=== PATIENT | female | born 1965 | race Caucasian/White ===

== ENCOUNTER → 2019-11-05 07:45 | Outpatient (CLI) | payer MEDICARE, SELFPAY ==
--- NOTE | 2019-11-05 07:45 | MR_ITS ---
PROCEDURE: MR HEAD/BRAIN WO CON CLINICAL INDICATION: Migraine headache Headache with blurred vision COMPARISON: HDWO CT HEAD W/O CONTRAST from 02/09/2015 TECHNIQUE: Routine multiplanar multi echo sequences are performed without gadolinium enhancement. FINDINGS: No midline shift, mass effect, intracranial hemorrhage, hydrocephalus, or acute infarction is evident. There are some mild encephalomalacia changes in the right parietal temporal junction posteriorly and laterally. There are a few nonspecific periventricular T2 white matter hyperintensities. The cerebellopontine angle, cerebellum, and brainstem are unremarkable. The pituitary, optic chiasm, corpus callosum, and craniocervical junction have an unremarkable appearance. No mastoid effusion or sinus air-fluid level is evident. IMPRESSION: No acute intracranial findings. Minimal encephalomalacia change of the right temporal parietal junction posteriorly with minimal scattered periventricular T2 white matter hyperintensities which could be due to ischemic gliotic foci Dictated by: Ji Meadows MD 11/06/2019 09:55 Electronically signed by Ji Meadows MD in [place] 11/06/2019 09:55
== END ==
PROVIDERS: PCP Family Medicine; Visit Provider Specialist
DX: G43.919 Migraine, unspecified, intractable, without status migrainosus (principal)
CPT/HCPCS: 70551

== ENCOUNTER → 2019-11-12 12:55 | Outpatient (CLI) | payer MEDICARE, SELFPAY | PROVIDERS: PCP Family Medicine; Visit Provider Specialist | DX: G47.33 Obstructive sleep apnea (adult) (pediatric) (principal) | CPT/HCPCS: G0399 ==

== ENCOUNTER → 2020-03-11 11:46 | Outpatient (CLI) | payer MEDICARE, SELFPAY ==
[2020-03-11 14:19] LABS: Vitamin B12 925 pg/mL (239-931)
== END ==
PROVIDERS: Visit Provider Specialist
DX: Z86.39 Personal history of other endocrine, nutritional and metabolic disease (principal)
CPT/HCPCS: 36415; 82607

== ENCOUNTER 2020-10-03 07:40 | Emergency (ER) | payer MEDICARE, SELFPAY ==
[2020-10-03] VITALS (10 sets, daily range): BP systolic 101–147; BP diastolic 52–87; PULSE 58–78; RESP 16–17; TEMP 36.5–36.8; O2SAT 93–99; BMI 51.0
--- NOTE | 2020-10-03 07:58 | XR_ITS ---
PROCEDURE INFORMATION: Exam: XR Chest Exam date and time: 10/03/2020 7:58 AM Age: 54 years old Clinical indication: Patient HX: Cough, smoker, copd, asthma TECHNIQUE: Imaging protocol: XR of the chest. Views: 2 views. COMPARISON: CR [id number] [id number] 04/17/2015 2:29 AM FINDINGS: Lungs: No consolidation. Pleural spaces: No pleural effusion. No pneumothorax. Heart/Mediastinum: No cardiomegaly. Bones/joints: No acute abnormality. IMPRESSION: No acute cardiopulmonary disease.
[2020-10-03 08:02] LABS: Microscopic, Urine URINE MICROSCOPIC (MICROSCOPIC)
[2020-10-03 08:04] LABS: Basophils # 0.1 K/mm3 (0-0.2); Basophils % 0.8 % (0.1-2.0); Eosinophils # 0.2 K/mm3 (0.0-0.4); Eosinophils % 1.9 % (0.1-12.0); Hematocrit 39.6 % (37.0-47.0); Hemoglobin 13.2 g/dL (12.2-16.2); Lymphocytes # 2.7 K/mm3 (0.7-4.5); Mean Corpuscular HGB Conc 33.4 g/dL (31.8-35.4); Mean Corpuscular Hemoglobin 29.9 pg (27.0-31.2); Mean Corpuscular Volume 89.5 fl (81-99); Mean Platelet Volume 7.9 fl (7.4-10.4); Monocytes # 0.5 K/mm3 (0.1-1.0); Monocytes % 5.2 % (1.7-9.3); Neutrophils # 6.6 K/mm3 (1.8-7.8); Neutrophils % 65.1 % (37.0-80.0); Platelet Count 331 K/mm3 (142-424); Red Blood Count 4.42 M/mm3 (4.20-5.40); Red Cell Distribution Width 13.3 % (11.5-17.5); White Blood Count 10.2 K/mm3 (4.8-10.8)
[2020-10-03 08:04] LABS: Appearance,Urine SL CLOUDY (Clear); Bilirubin,Urine Negative (Negative); Blood, Urine 3+ (Negative); Color,Urine YELLOW (Yellow); Glucose,Urine (UA) Negative (Negative); Ketones,Urine Negative (Negative); Leukocyte Esterase,Urine TRACE (Negative); Nitrate,Urine Negative (Negative); Protein,Urine Negative (Negative); Urobilinogen,Urine 0.2 EU/dl (0.2)
[2020-10-03 08:11] LABS: Alanine Aminotransferase 27 U/L (12-78); Albumin Level 4.1 g/dl (3.5-5.0); Albumin/Globulin Ratio 1.4 (1.1-1.8); Alkaline Phosphatase 71 U/L (38-126); Anion Gap 6.4 mEq/L (5-15); Aspartate Amino Transferase 29 U/L (14-36); Bilirubin,Total 0.8 mg/dl (0.2-1.3); Blood Urea Nitrogen 19 mg/dl (7-17); Calcium 8.9 mg/dl (8.4-10.2); Carbon Dioxide 31 mmol/L (22.0-30.0); Chloride 105 mmol/L (98-107); Creatinine Clearance Estimated 60 mL/min (50-200); Estimated Glomerular Filt Rate 74 ml/min (>60); GFR (African American) 90 ML/MIN (>60); Globulin 2.9 g/dL (1.3-3.2); Glucose 100 mg/dl (74-100); Potassium 4.4 mmoL/L (3.5-5.1); Sodium 138 mmol/L (136-145)
[2020-10-03 08:15] LABS: RBC,Urine 50-100 #/hpf (0-3); Squamous Epithelial Cell,Urine Occasional #/hpf (0-5)
--- NOTE | 2020-10-03 08:40 | CT_ITS ---
PROCEDURE INFORMATION: Exam: CT Abdomen And Pelvis With Contrast Exam date and time: 10/03/2020 8:40 AM Age: 54 years old Clinical indication: Abdominal pain; Prior surgery; Patient HX: Left flank pain TECHNIQUE: Imaging protocol: Computed tomography of the abdomen and pelvis with contrast. Radiation optimization: All CT scans at this facility use at least one of these dose optimization techniques: automated exposure control; mA and/or kV adjustment per patient size (includes targeted exams where dose is matched to clinical indication); or iterative reconstruction. Contrast material: ISOVUE; Contrast volume: 75 ml; Contrast route: IV; COMPARISON: No relevant prior studies available. FINDINGS: Lungs: Mild reticular opacities in the lung bases, likely atelectasis. Heart: Trace pericardial effusion. Liver: No mass. Gallbladder and bile ducts: Cholecystectomy changes. No biliary ductal dilation. Pancreas: No ductal dilation. Spleen: Multiple splenic parenchymal calcifications, likely from old granulomatous disease. Adrenal glands: No mass. Kidneys and ureters: There is an 8 mm calculus in the left renal pelvis with mild hydronephrosis and mild inflammation along the renal pelvis and ureter. Simple exophytic 1 cm right renal cyst. Stomach and bowel: Surgical change along the stomach from bypass, with an uncomplicated appearance. Colonic diverticulosis without evidence of diverticulitis. Appendix: No evidence of appendicitis. Intraperitoneal space: Old midline laparotomy changes with metallic fascial stables. Small fat containing periumbilical hernia. Vasculature: No abdominal aortic aneurysm. Lymph nodes: No enlarged lymph nodes. Urinary bladder: Unremarkable as visualized. Reproductive: Hysterectomy. No adnexal mass. Bones/joints: No acute fracture. Soft tissues: See Intraperitoneal space finding. IMPRESSION: 1. There is an 8 mm calculus in the left renal pelvis with mild hydronephrosis and mild inflammation along the renal pelvis and ureter. 2. Trace pericardial effusion. COMMENTS: Consistent with the [employer]'s Incidental Findings Committee white paper (J Am Cristiana Radiol 2018): Any incidental renal lesion less than 1 cm or classified as too small to characterize, or any incidental cystic renal lesion characterized as simple-appearing, is likely benign. No follow-up imaging is recommended for these lesions per consensus recommendations based on imaging criteria.
--- NOTE | 2020-10-03 08:41 | HMH.EDGENADL ---
ED Disposition Clinical Impression: Kidney stone, Hydronephrosis due to obstruction of ureter, Uncontrolled pain DM2 (diabetes mellitus, type 2) Qualifiers: Diabetes mellitus chcf insulin use: without chcf use Diabetes mellitus complication status: with other specified complication Qualified Code(s): E11.69 - Type 2 diabetes mellitus with other specified complication Disposition: Xfer Critical Access Hosp Condition on Discharge: Fair Referrals: Salima Gonzáles [Primary Care Provider] - Time of Disposition: 10:36 - Critical Care Critical Care Time: No Attestation: On 10/03/20, the high probability of a clinically significant, sudden or life threatening deterioration of the following system(s) required my full and direct attention, intervention and personal management. The time I documented below is in addition to time spent performing reported procedures but includes the following listed in this critical care notation. Medical Decision Making - Medical Records Medical records reviewed: Yes: I reviewed the patient's medical records. - Aurelio Inquiry Pt receiving controlled substance: No Vital Signs: 10/03/20 07:42 10/03/20 08:00 10/03/20 08:22 Temperature 97.7 F Temperature Source Oral Pulse Rate 62 58 L Pulse Rate [Right] 78 Respiratory Rate 16 Blood Pressure 114/75 122/70 Blood Pressure [Right Arm] 129/52 L Blood Pressure Mean 87 Blood Pressure Mean [Right Arm] 77 Blood Pressure Source Blood Pressure Position 02 Sat by Pulse Oximetry 98 97 96 Oxygen Delivery Method Room Air 10/03/20 08:27 10/03/20 08:30 Temperature Temperature Source Pulse Rate 62 60 Pulse Rate [Right] Respiratory Rate Blood Pressure 122/70 119/76 Blood Pressure [Right Arm] Blood Pressure Mean 95 Blood Pressure Mean [Right Arm] Blood Pressure Source Automatic Cuff Blood Pressure Position Sitting 02 Sat by Pulse Oximetry 95 96 Oxygen Delivery Method Room Air - Lab Data Lab Results 10/03/20 07:50: Urine Color Yellow, Urine Appearance Sl cloudy, Urine pH 6.0, Ur Specific Irene 1.020, Urine Protein Negative, Urine Glucose (UA) Negative, Urine Ketones Negative, Urine Blood 3+, Urine Nitrate Negative, Urine Bilirubin Negative, Urine Urobilinogen 0.2, Ur Leukocyte Esterase Trace, Urine RBC 50-100, Urine WBC 3-5, Ur Squamous Epith Cells Occasional, Urine Bacteria None 10/03/20 07:56: WBC 10.2, RBC 4.42, Hgb 13.2, Hct 39.6, MCV 89.5, MCH 29.9, MCHC 33.4, RDW 13.3, Plt Count 331, MPV 7.9, Neut % (Auto) 65.1, Lymph % (Auto) 27.0, Jerome % (Auto) 5.2, Eos % (Auto) 1.9, Baso % (Auto) 0.8, Neut # (Auto) 6.6, Lymph # (Auto) 2.7, Jerome # (Auto) 0.5, Eos # (Auto) 0.2, Baso # (Auto) 0.1 10/03/20 07:56: Sodium 138, Potassium 4.4, Chloride 105, Carbon Dioxide 31 H, Anion Gap 6.4, BUN 19 H, Creatinine 0.80, Estimated Creat Clear 60, Estimated GFR 74, Est GFR ( Amer) 90, Glucose 100, Calcium 8.9, Total Bilirubin 0.8, AST 29, ALT 27, Alkaline Phosphatase 71, Total Protein 7.0, Albumin 4.1, Globulin 2.9, Albumin/Globulin Ratio 1.4 Result diagrams: 10/03/20 07:56 10/03/20 07:56 Orders (Tests/Meds): ED MEDICATIONS Generic Name Dose Route Start Last Admin Trade Name Freq PRN Reason Stop Dose Admin Sodium Chloride 1,000 mls @ 999 mls/hr 10/03/20 10:15 10/03/20 10:18 Sod Chlor 0.9% 1000ml Bag IV 10/03/20 11:15 999 mls/hr .Q1H1M SORAYA Administration Discontinued Medications Generic Name Dose Route Start Last Admin Trade Name Freq PRN Reason Stop Dose Admin Hydromorphone HCl 0.5 mg 10/03/20 10:08 10/03/20 10:17 Hydromorphone 2mg/Ml Syringe IV 10/03/20 10:09 0.5 mg ONCE ONE Administration Iopamidol 75 ml 10/03/20 09:18 10/03/20 09:19 Iopamidol-370 (76%);100ml Bottle IV 10/03/20 09:19 75 ml ONCE ONE Administration Ketorolac Tromethamine 15 mg 10/03/20 08:42 10/03/20 08:44 Ketorolac 30mg/Ml Vial IV 10/03/20 08:43 15 mg ONCE ONE Administration
--- NOTE | 2020-10-03 10:11 | PC.NURSE ---
[facility] does not have any urologist rehabilitation services coordinator
--- NOTE | 2020-10-03 10:13 | PC.NURSE ---
Contacting [facility]
--- NOTE | 2020-10-03 10:14 | PC.NURSE ---
urology at [facility] to return call.
--- NOTE | 2020-10-03 10:43 | PC.NURSE ---
Called Radiology for a disk on patient.
--- NOTE | 2020-10-03 13:35 | PC.NURSE ---
called and spoke with [facility]. they still do not have a bed at this time but they will call back around 1530 with an update unless they get a bed before then
--- NOTE | 2020-10-03 15:27 | PC.NURSE ---
[facility] FROM [place] ADMITTING STATED PATIENT HAD A BED ASSIGNED TO THE UNIT 3B
== END 2020-10-03 16:53 | disposition critical access hospital (66) ==
PROVIDERS: Emergency Provider Emergency Medicine; PCP Family Medicine
DX: N20.0 Calculus of kidney (principal); N13.1 Hydronephrosis with ureteral stricture, not elsewhere classified; E11.69 Type 2 diabetes mellitus with other specified complication; F41.8 Other specified anxiety disorders; Z87.442 Personal history of urinary calculi; Z88.5 Allergy status to narcotic agent; Z79.899 Other long term (current) drug therapy; Z11.52 Encounter for screening for COVID-19
CPT/HCPCS: 71046; 74177; 80053; 81001; 85025; 96365; 99283; J2405; Q9967; U0003

== ENCOUNTER 2020-10-08 12:29 | Emergency (ER) | payer MEDICARE, SELFPAY ==
[2020-10-08 12:46] VITALS: BP 180/110; PULSE 97; RESP 16; TEMP 37.1; O2SAT 97; BMI 51.0
[2020-10-08 13:22] LABS: Microscopic, Urine URINE MICROSCOPIC (MICROSCOPIC)
--- NOTE | 2020-10-08 13:23 | HMH.EDGENADL ---
ED Disposition Clinical Impression: Ureteral calculi, Nephrolithiasis Disposition: Home, Self-Care Condition on Discharge: Fair Instructions: DI for Kidney Stones Additional Instructions: Flomax as prescribed. Percocet as needed for pain. Zofran as needed for nausea. Cipro as prescribed. Call Dr. Andrade at 9 AM Sunday morning to make arrangements to be seen on Sunday in their office. Additional instructions for KIDNEY STONE (URETERAL CALCULUS): Drink plenty of fluids. Strain your urine and save any stones you catch. Return immediately if you develop a fever or have uncontrollable vomiting or uncontrollable pain. Prescriptions: Oxycodone HCl/Acetaminophen [Percocet 10-325 mg Tablet] 1 tab PO Q4HP PRN #20 tab PRN Reason: Moderate To Severe Pain Transmission Status: Sent to [facility] Ciprofloxacin HCl [Cipro 500mg Tab] 500 mg PO BID #14 tab Transmission Status: Pending to [facility] Tamsulosin HCl [Flomax 0.4mg capsule] 0.4 mg PO HS #10 cap.er.24h Transmission Status: Pending to [facility] Ondansetron [Zofran 4mg ODT] 4 mg PO TIDP PRN #10 tab.rapdis PRN Reason: Nausea And Vomiting Transmission Status: Pending to [facility] Referrals: Dragan Andrade MD [Staff Physician] - - Critical Care Critical Care Time: No Attestation: On 10/08/20, the high probability of a clinically significant, sudden or life threatening deterioration of the following system(s) required my full and direct attention, intervention and personal management. The time I documented below is in addition to time spent performing reported procedures but includes the following listed in this critical care notation. Medical Decision Making - Aurelio Inquiry Pt receiving controlled substance: Yes Aurelio was queried for this patient: Yes Risks and benefits of using a controlled substance: were not discussed with pt by me Vital Signs: 10/08/20 12:46 10/08/20 13:30 10/08/20 15:15 Temperature 98.8 F Temperature Source Oral Pulse Rate 75 74 Pulse Rate [Right] 97 H Respiratory Rate 16 18 Blood Pressure 140/83 132/72 Blood Pressure [Right Arm] 180/110 H Blood Pressure Mean 103 Blood Pressure Mean [Right Arm] 133 Blood Pressure Source [Right Arm] Automatic Cuff Blood Pressure Position [Right Arm] Sitting 02 Sat by Pulse Oximetry 97 96 92 L Oxygen Delivery Method Room Air - Lab Data Lab Results 10/08/20 12:55: WBC 15.4 H, RBC 4.34, Hgb 13.4, Hct 39.9, MCV 92.0, MCH 30.8, MCHC 33.5, RDW 14.1, Plt Count 316, MPV 8.0, Neut % (Auto) 84.4 H, Lymph % (Auto) 10.0, Early % (Auto) 4.7, Eos % (Auto) 0.5, Baso % (Auto) 0.4, Neut # (Auto) 13.0 H, Lymph # (Auto) 1.5, Early # (Auto) 0.7, Eos # (Auto) 0.1, Baso # (Auto) 0.1, Total Counted 100, Neutrophils % (Manual) 83 H, Lymphocytes % (Manual) 15, Monocytes % (Manual) 2, Platelet Estimate Normal, RBC Morphology Normal 10/08/20 12:55: Sodium 141, Potassium 4.1, Chloride 102, Carbon Dioxide 27, Anion Gap 16.1 H, BUN 20 H, Creatinine 1.30 H, Estimated Creat Clear 37, Estimated GFR 43 L, Est GFR ( Amer) 51 L, Glucose 108 H, Calcium 9.2, Total Bilirubin 0.8, AST 46 H, ALT 48, Alkaline Phosphatase 94, Total Protein 7.9, Albumin 4.6, Globulin 3.3 H, Albumin/Globulin Ratio 1.4 10/08/20 13:00: Urine Color Yellow, Urine Appearance Clear, Urine pH 6.5, Ur Specific [place] 1.020, Urine Protein Negative, Urine Glucose (UA) Negative, Urine Ketones Negative, Urine Blood 1+, Urine Nitrate Negative, Urine Bilirubin Negative, Urine Urobilinogen 0.2, Ur Leukocyte Esterase Negative, Urine RBC None, Urine WBC 3-5, Ur Squamous Epith Cells Occasional, Urine Bacteria None Result diagrams: 10/08/20 12:55 10/08/20 12:55 Orders (Tests/Meds): ED MEDICATIONS Discontinued Medications Generic Name Dose Route Start Last Admin Trade Name Freq PRN Reason Stop Dose Admin Hydromorphone HCl 1 mg 10/08/20 13:45 10/08/20 13:53 Hydromorphone 2m
[2020-10-08 13:25] LABS: Chloride 102 mmol/L (98-107); Potassium 4.1 mmoL/L (3.5-5.1); Sodium 141 mmol/L (136-145)
[2020-10-08 13:26] LABS: Appearance,Urine CLEAR (Clear); Bilirubin,Urine Negative (Negative); Blood, Urine 1+ (Negative); Color,Urine YELLOW (Yellow); Glucose,Urine (UA) Negative (Negative); Ketones,Urine Negative (Negative); Leukocyte Esterase,Urine Negative (Negative); Nitrate,Urine Negative (Negative); PH,Urine 6.5 (5.0-8.5); Protein,Urine Negative (Negative); Urobilinogen,Urine 0.2 EU/dl (0.2)
[2020-10-08 13:27] LABS: Blood Urea Nitrogen 20 mg/dl (7-17); Creatinine Clearance Estimated 37 mL/min (50-200); Estimated Glomerular Filt Rate 43 ml/min (>60); GFR (African American) 51 ML/MIN (>60)
[2020-10-08 13:28] LABS: Alanine Aminotransferase 48 U/L (12-78); Albumin Level 4.6 g/dl (3.5-5.0); Albumin/Globulin Ratio 1.4 (1.1-1.8); Alkaline Phosphatase 94 U/L (38-126); Anion Gap 16.1 mEq/L (5-15); Aspartate Amino Transferase 46 U/L (14-36); Bilirubin,Total 0.8 mg/dl (0.2-1.3); Calcium 9.2 mg/dl (8.4-10.2); Carbon Dioxide 27 mmol/L (22.0-30.0); Globulin 3.3 g/dL (1.3-3.2); Glucose 108 mg/dl (74-100); Total Protein,Serum 7.9 g/dl (6.3-8.2)
[2020-10-08 13:30] VITALS: BP 140/83; PULSE 75; RESP 18; O2SAT 96
[2020-10-08 13:36] LABS: Basophils # 0.1 K/mm3 (0-0.2); Basophils % 0.4 % (0.1-2.0); Eosinophils # 0.1 K/mm3 (0.0-0.4); Eosinophils % 0.5 % (0.1-12.0); Hematocrit 39.9 % (37.0-47.0); Hemoglobin 13.4 g/dL (12.2-16.2); Lymphocytes # 1.5 K/mm3 (0.7-4.5); Mean Corpuscular HGB Conc 33.5 g/dL (31.8-35.4); Mean Corpuscular Hemoglobin 30.8 pg (27.0-31.2); Monocytes # 0.7 K/mm3 (0.1-1.0); Monocytes % 4.7 % (1.7-9.3); Neutrophils % 84.4 % (37.0-80.0); Platelet Count 316 K/mm3 (142-424); Red Blood Count 4.34 M/mm3 (4.20-5.40); Red Cell Distribution Width 14.1 % (11.5-17.5); White Blood Count 15.4 K/mm3 (4.8-10.8)
[2020-10-08 13:36] LABS: Squamous Epithelial Cell,Urine Occasional #/hpf (0-5)
[2020-10-08 13:39] LABS: MANUAL DIFFERENTIAL MANUAL DIFFERENTIAL (MANUAL DIFF)
--- NOTE | 2020-10-08 13:45 | CT_ITS ---
PROCEDURE: CT ABDOMEN PELVIS WO CON CLINICAL INDICATION: ureteral calculus Lower abdominal and pelvic pain COMPARISON: CT CT ABDOMEN PELVIS W CON from 10/03/2020 TECHNIQUE: Axial images obtained with sagittal and coronal reformats. All CT scans at the facility use one or more dose reduction, viz: automated exposure control, ma/kV adjustment per patient size (including targeted exams where dose is matched to indication, i.e. head), or iterative reconstruction technique. FINDINGS: LOWER THORAX: Slight increased markings both lung bases posteriorly suggesting minimal atelectasis or infiltrate slightly worse ABDOMEN & PELVIS: Prior cholecystectomy. The liver, spleen, adrenal glands, and pancreas have an unremarkable unenhanced appearance. Small exophytic nodule projects off the anterior aspect of the right kidney isodense in nature and may represent a small renal cyst. There is mild left hydronephrosis and hydroureter secondary to a column of stones within the distal left ureter. Previously described left ureteropelvic junction stone is no longer apparent. There is a 12 by 8 mm stone in the left renal pelvis within the lower pole of the left kidney. There is mild stranding of the left perinephric and periureteral fat. There is mild stranding of the fat in the left internal iliac region within the pelvis. This has developed since the previous exam There has been a prior gastric bypass. No intestinal obstruction or free air is evident. No evidence of appendicitis. There is colonic diverticulosis. No evidence of diverticulitis. There are postsurgical changes of the anterior abdominal wall with numerous clips. No acute bony findings. IMPRESSION: The left ureteropelvic junction stone is no longer apparent. The left hydronephrosis and ureteral dilatation is worse. There are now numerous small stones in the distal left ureter. Has patient had recent lithotripsy? There is mild stranding of the left perinephric renal fat and periureteral fat especially in the region of the pelvis. There is left nephrolithiasis. Dictated by: Ji Meadows MD 10/08/2020 14:46 Ji Meadows MD in [place] 10/08/2020 14:46
[2020-10-08 13:53] LABS: Lymphocytes % 15 % (10-50); Monocytes % 2 % (2-9); Neutrophils % 83 % (42-76); Platelet Estimate Normal; RBC Morphology Normal; Total Cells Counted 100
--- NOTE | 2020-10-08 15:03 | PC.NURSE ---
DR ARSEN CROOKS
[2020-10-08 15:15] VITALS: BP 132/72; PULSE 74; O2SAT 92
[2020-10-08 16:52] VITALS: BP 123/69; PULSE 88; RESP 18; TEMP 36.6; O2SAT 97
== END 2020-10-08 16:55 | disposition home or self-care (01) ==
LOC: UTC 12:41 → ER 12:45
PROVIDERS: Emergency Provider Emergency Medicine; PCP Family Medicine
DX: N20.1 Calculus of ureter (principal); N13.30 Unspecified hydronephrosis
CPT/HCPCS: 74176; 80053; 81001; 85007; 85025; 96365; 96375; 96376; 99284; J2405

== ENCOUNTER 2020-10-09 11:30 | Inpatient (IN) | payer MEDICARE, SELFPAY ==
[2020-10-09] VITALS (25 sets, daily range): BP systolic 111–141; BP diastolic 58–75; PULSE 72–94; RESP 16–20; TEMP 36.7–43; O2SAT 90–97; BMI 51.0; BMI 52.2
--- NOTE | 2020-10-09 | XR_ITS ---
PROCEDURE: XR ABDOMEN MIN 2V CLINICAL INDICATION: IN OR STONE REMOVAL COMPARISON: No exams were available for comparison FINDINGS: Fluoroscopy time: 8 seconds. One image is submitted but is nondiagnostic. IMPRESSION: Fluoroscopy utilized for stone removal. Please correlate with fluoroscopic findings. Dictated by: Ji Meadows MD 10/13/2020 07:46 Ji Meadows MD in [facility] 10/13/2020 07:46
[2020-10-09 11:52] LABS: POC Glucose,Bedside 165 (70-110)
--- NOTE | 2020-10-09 12:14 | HMH.EDGENADL ---
ED Disposition Clinical Impression: Hydronephrosis, Nephrolithiasis Disposition: Admitted As Inpatient Condition on Discharge: Good - Critical Care Critical Care Time: No Attestation: On 10/09/20, the high probability of a clinically significant, sudden or life threatening deterioration of the following system(s) required my full and direct attention, intervention and personal management. The time I documented below is in addition to time spent performing reported procedures but includes the following listed in this critical care notation. Medical Decision Making - Medical Records MR Comment: Left-sided hydronephrosis and pyelonephritis. He was started on broad-spectrum antibiotic. The urologist Dr. Bella was called and he accepted the patient and he will do procedure on her. She has to be kept n.p.o. Dr. Padilla the hospitalist was called and he accepted the patient. Patient will be on IV fluid and n.p.o. - Aurelio Inquiry Pt receiving controlled substance: No Aurelio was queried for this patient: No Vital Signs: 10/09/20 11:31 10/09/20 12:00 10/09/20 12:31 Temperature 100.7 F H Temperature Source Oral Pulse Rate 92 H 94 H Pulse Rate [Left] 91 H Respiratory Rate 18 Blood Pressure 130/62 127/59 L Blood Pressure [Right Arm] 126/58 L Blood Pressure Mean 80 75 Blood Pressure Mean [Right Arm] 80 Blood Pressure Source [Right Arm] Automatic Cuff Blood Pressure Position [Right Arm] Sitting 02 Sat by Pulse Oximetry 93 L 97 92 L Oxygen Delivery Method Room Air 10/09/20 13:01 10/09/20 13:30 Temperature Temperature Source Pulse Rate 94 H 87 Pulse Rate [Left] Respiratory Rate 20 Blood Pressure 116/67 129/59 L Blood Pressure [Right Arm] Blood Pressure Mean 75 82 Blood Pressure Mean [Right Arm] Blood Pressure Source [Right Arm] Blood Pressure Position [Right Arm] 02 Sat by Pulse Oximetry 93 L 95 Oxygen Delivery Method - Lab Data Lab Results 10/09/20 11:45: POC Glucose 165 H 10/09/20 11:45: WBC 19.5 H D, RBC 3.81 L, Hgb 11.8 L D, Hct 34.1 L, MCV 89.5, MCH 31.0, MCHC 34.6, RDW 13.8, Plt Count 255, MPV 8.3, Neut % (Auto) 90.7 H, Lymph % (Auto) 4.0 L, [place] % (Auto) 4.6, Eos % (Auto) 0.5, Baso % (Auto) 0.2, Neut # (Auto) 17.7 H, Lymph # (Auto) 0.8, [place] # (Auto) 0.9, Eos # (Auto) 0.1, Baso # (Auto) 0.0, Total Counted 100, Neutrophils % (Manual) 83 H, Band Neutrophils % 2.0, Lymphocytes % (Manual) 9 L, Monocytes % (Manual) 6, Platelet Estimate Normal, RBC Morphology Normal 10/09/20 11:45: Sodium 134 L, Potassium 4.1, Chloride 102, Carbon Dioxide 23, Anion Gap 13.1, BUN 18 H, Creatinine 1.60 H D, Estimated Creat Clear 30, Estimated GFR 33 L, Est GFR ( Amer) 40 L D, Glucose 150 H D, Calcium 8.7, Total Bilirubin 1.8 H, AST 74 H D, ALT 95 H D, Alkaline Phosphatase 133 H, Total Protein 7.2, Albumin 4.1 D, Globulin 3.1, Albumin/Globulin Ratio 1.3 10/09/20 11:45: Lactate 1.0 10/09/20 14:00: Urine Color Yellow, Urine Appearance Clear, Urine pH 6.0, Ur Specific Dewitt >= 1.030, Urine Protein 1+, Urine Glucose (UA) Negative, Urine Ketones 1+, Urine Blood 1+, Urine Nitrate Negative, Urine Bilirubin Negative, Urine Urobilinogen 1.0, Ur Leukocyte Esterase Negative, Urine RBC 5-10, Urine WBC None, Ur Squamous Epith Cells 3-5, Amorphous Sediment 1+, Urine Bacteria None Result diagrams: 10/09/20 11:45 10/09/20 11:45 Orders (Tests/Meds): ED MEDICATIONS Generic Name Dose Route Start Last Admin Trade Name Freq PRN Reason Stop Dose Admin Hydromorphone HCl 0.5 mg 10/09/20 15:51 Hydromorphone 2mg/Ml Syringe IV 10/09/20 17:21 Q5MINP PRN Moderate to Severe Pain Hydromorphone HCl 2 mg 10/09/20 15:51 Hydromorphone 2mg/Ml Syringe IV 11/08/20 15:50 Q4HP PRN Severe Pain Sodium Chloride 1,000 mls @ 100 mls/hr 10/09/20 15:51 10/09/20 17:24 Sod Chlor 0.9% 1000ml Bag IV 11/08/20 15:50 100 mls/hr .Q10H SORAYA Administration Meperidine HCl 25 mg 10/09
[2020-10-09 12:18] LABS: Basophils % 0.2 % (0.1-2.0); Eosinophils # 0.1 K/mm3 (0.0-0.4); Mean Platelet Volume 8.3 fl (7.4-10.4); Monocytes # 0.9 K/mm3 (0.1-1.0)
[2020-10-09 12:22] LABS: Chloride 102 mmol/L (98-107)
[2020-10-09 12:23] LABS: Potassium 4.1 mmoL/L (3.5-5.1); Sodium 134 mmol/L (136-145)
[2020-10-09 12:25] LABS: Alanine Aminotransferase 95 U/L (12-78); Aspartate Amino Transferase 74 U/L (14-36); Blood Urea Nitrogen 18 mg/dl (7-17); Creatinine Clearance Estimated 30 mL/min (50-200); Estimated Glomerular Filt Rate 33 ml/min (>60); GFR (African American) 40 ML/MIN (>60)
[2020-10-09 12:26] LABS: Albumin Level 4.1 g/dl (3.5-5.0); Albumin/Globulin Ratio 1.3 (1.1-1.8); Alkaline Phosphatase 133 U/L (38-126); Anion Gap 13.1 mEq/L (5-15); Bilirubin,Total 1.8 mg/dl (0.2-1.3); Calcium 8.7 mg/dl (8.4-10.2); Carbon Dioxide 23 mmol/L (22.0-30.0); Globulin 3.1 g/dL (1.3-3.2); Glucose 150 mg/dl (74-100); Total Protein,Serum 7.2 g/dl (6.3-8.2)
[2020-10-09 12:27] LABS: Eosinophils % 0.5 % (0.1-12.0); Hematocrit 34.1 % (37.0-47.0); Lymphocytes # 0.8 K/mm3 (0.7-4.5); Mean Corpuscular HGB Conc 34.6 g/dL (31.8-35.4); Mean Corpuscular Volume 89.5 fl (81-99); Monocytes % 4.6 % (1.7-9.3); Neutrophils # 17.7 K/mm3 (1.8-7.8); Neutrophils % 90.7 % (37.0-80.0); Platelet Count 255 K/mm3 (142-424); Red Blood Count 3.81 M/mm3 (4.20-5.40); Red Cell Distribution Width 13.8 % (11.5-17.5); White Blood Count 19.5 K/mm3 (4.8-10.8)
[2020-10-09 12:29] LABS: Hemoglobin 11.8 g/dL (12.2-16.2)
[2020-10-09 12:30] LABS: MANUAL DIFFERENTIAL MANUAL DIFFERENTIAL (MANUAL DIFF)
[2020-10-09 12:41] LABS: Lymphocytes % 9 % (10-50); Monocytes % 6 % (2-9); Neutrophils % 83 % (42-76); Platelet Estimate Normal; RBC Morphology Normal; Total Cells Counted 100
--- NOTE | 2020-10-09 12:50 | PC.NURSE ---
paged dr jacobs
--- NOTE | 2020-10-09 12:56 | PC.NURSE ---
Dr Lupe trujillo returned call, Dr Messi trujillo MD speaking with him now
--- NOTE | 2020-10-09 13:02 | PC.NURSE ---
Dr Swenson not railroad crossing protection maintainer for service, Dr Padilla paged and returned call.
--- NOTE | 2020-10-09 13:10 | PC.NURSE ---
house sup called for admission
--- NOTE | 2020-10-09 13:32 | PC.NURSE ---
Dr Padilla here to see pt.
--- NOTE | 2020-10-09 13:40 | HMH.HP ---
*Admission Date: 10/09/20 *Chief complaint: Flank pain and fever *History of present illness: Ms. Murillo is a 54-year-old white female with history of hypertension and diabetes who has a history of recurrent kidney stones. She has been followed by her PCP, Dr. Gonzáles, recently with known left ureteral calculus. She had originally been scheduled for surgery on 10/06/20 but her pain became acutely worse last weekend and she ended up having urgent surgery on 10/04/20 at [facility]. She underwent lithotripsy with stent placement by Dr. Menendez. She was discharged home the following day on 10/05/20, she inadvertently pulled out stent. She returned here to the emergency room last evening with worsening pain and fever. CT scan at that time showed left hydronephrosis and ureter. She was offered admission urologic consultation but declined and went home. She has now returned to the ER today with worsening pain, fever, nausea, and vomiting. Her white count is elevated at 19,000 and BUN and creatinine are elevated. Dr. Andrade, on-call for urology, has been contacted and is planning to take the patient for surgery later today or tomorrow. She is now being admitted for IV fluids, IV antibiotics, and pain control pending her surgery. [facility] History Medical History: Reports:: Anxiety, Asthma, Depression, Diabetes Mellitus Type 2, Hypertension, Kidney Stones, Migraine *Have you ever received a pneumonia vaccine?: Yes *Have you received a flu vaccine this season?: Yes Other Medical History: Reports: Anemia, Arthritis, Cataracts, Thyroid Disease Laterality Cases: Bilateral: Tonsillectomy, Total Knee Replacement Other Surgeries: Yes: Bariatric Surgery, Cholecystectomy, (x2), Ureter Stent, Other (Lithotripsy) Amputation: No Fractures: No - *Social History Smoking Status: Former smoker Tobacco Type: cigarettes # Packs/Day (cigarettes): 1 Alcohol Intake: never Alcohol Intake Frequency:: other Substance Use Type: denies use *Occupational Status:: employed Housing: house Household Members: none *Travel in the last 8 weeks: None - Psychiatric History Pschychiatric History:: Reports:: Anxiety, Depression Family Hx:: No significant family history Review of Systems - Constitutional Reports fever(s), Reports malaise, Reports weakness, Denies body ache(s), Denies weight loss - Eyes Denies blurry vision, Denies double vision - ENT Denies hearing loss, Denies sinus pressure, Denies sore throat - *Cardiovascular Reports leg swelling (ocasional mild swelling), Denies chest pain, Denies shortness of breath, Denies irregular heart rhythm - *Respiratory Denies chest congestion, Denies cough - *Gastrointestinal Reports abdominal pain, Reports nausea, Reports vomiting, Denies change in bowel habits - *Genitourinary Reports other (See HPI) - *Musculoskeletal Denies joint swelling, Denies muscle cramps - Integumentary/Breasts Denies change in skin color, Denies unusual bruising - *Neurologic Denies seizure-like activity, Denies dizziness - Psychiatric Denies anxiety, Denies confusion - Endocrine Denies excessive sweating - Hematologic/Lymphatic Denies easy bleeding - Allergic/Immunologic Denies itchy eyes Meds Home Medications Medication Instructions Recorded Confirmed Type Albuterol Sulfate [Albuterol HFA 2 puffs IH Q6HP PRN #1 inh 08/11/18 03/11/20 Rx Inhaler] Fluoxetine HCl 40 mg PO DAILY 08/11/18 03/11/20 History Levothyroxine Sodium 125 mcg PO DAILY 08/11/18 03/11/20 History [Levothyroxine 125mcg (0.125mg) Tab] Olmesartan Medoxomil 40 mg PO DAILY 08/11/18 03/11/20 History Pregabalin [Lyrica 150mg Cap] 150 mg PO BID 08/11/18 03/11/20 History Simvastatin 5 mg PO DAILY 08/11/18 03/11/20 History buPROPion HCL [Wellbutrin SR 150mg 150 mg PO DAILY 08/11/18 03/11/20 History Tablet] etanercept 50 mg/mL (1 mL) 50 mg SQ QWEEK ml 10/20/19 03/11/20 History subcutaneous syringe linaclotide 145 m
--- NOTE | 2020-10-09 13:57 | PC.NURSE ---
Anesthesiologist in room with patient.
--- NOTE | 2020-10-09 14:11 | PC.NURSE ---
patient to OR
[2020-10-09 14:23] LABS: Microscopic, Urine URINE MICROSCOPIC (MICROSCOPIC)
[2020-10-09 14:26] LABS: Appearance,Urine CLEAR (Clear); Bilirubin,Urine Negative (Negative); Blood, Urine 1+ (Negative); Color,Urine YELLOW (Yellow); Glucose,Urine (UA) Negative (Negative); Ketones,Urine 1+ (Negative); Leukocyte Esterase,Urine Negative (Negative); Nitrate,Urine Negative (Negative); Protein,Urine 1+ (Negative); Specific Gravity, Urine >= 1.030 (1.005-1.030)
[2020-10-09 14:40] LABS: Amorphous Sediment,Urine 1+ /lpf
--- NOTE | 2020-10-09 15:00 | P.PN_ITS ---
[facility] Anesthesia Checklist - Patient Identification Patient Identification: Arm Band - Structural Data Admitted From: Emergency Dept Planned Operative Procedure/s: Left Ureteroscopy with Stone Extraction Consent for Planned Operative Procedure(s) Verified: Yes Verified Documents: Surgical Consent, History and Physical - NPO Status Verified Time NPO: 00:00 - Additional verifications Anesthesia Reactions: No - Airway Assessment C-Spine Mobility Assessed: Yes (mp2) TMJ Mobility Assessed: Yes Dentition: Good Dentition - Neurological Assessment Level of Consciousness: Awake, Alert - Anesthesia Plan Anesthesia Risk discussed: Yes Anesthesia Plan: Verified ASA Class: III Anesthesia Type: General [facility] History I have reviewed the patient's past medical history: Yes Medical History: Reports:: Anxiety, Asthma, Depression, Diabetes Mellitus Type 2, Hypertension, Kidney Stones, Migraine *Have you ever received a pneumonia vaccine?: Yes *Have you received a flu vaccine this season?: Yes Other Medical History: Reports: Anemia, Arthritis, Cataracts, Thyroid Disease, Other Anesthesia experience/problems:: nac Laterality Cases: Bilateral: Tonsillectomy, Total Knee Replacement Other Surgeries: Yes: Bariatric Surgery, Cholecystectomy, (x2), Ureter Stent, Other (Lithotripsy) Amputation: No Fractures: No - *Social History Smoking Status: Former smoker Tobacco Type: cigarettes # Packs/Day (cigarettes): 1 Alcohol Intake: never Alcohol Intake Frequency:: other Substance Use Type: denies use *Occupational Status:: employed Housing: house Household Members: none *Travel in the last 8 weeks: None - Psychiatric History Pschychiatric History:: Reports:: Anxiety, Depression Family Hx:: No significant family history
--- NOTE | 2020-10-09 15:12 | P.OP_ITS ---
Date of procedure: 10/09/20 Pre-op Diagnosis:: Ureteral calculi with obstruction Post-op Diagnosis:: Left ureteral calculi with obstruction Procedure performed:: Left ureteroscopy basket stone extraction with left stent placement Surgeon:: Dragan Andrade MD TECHNICAL BUSINESS ANALYST:: Nabeel Garnett Anesthesia: LMA Estimated blood loss (mL): 0 Clinical Note:: 4-year-old white female with history of 8 mm left UPJ stone who underwent left ureteroscopy and laser lithotripsy and left stent placement on 531 . She inadvertently removed her stent the day after the procedure. She presented to the [facility] yesterday and today with left renal colic and elevated white count. Stone extraction is recommended today. Operative findings:: Multiple left ureteral calculi with brownish debris noted behind the calculi but no gross pus. Operative note:: Patient taken to the operating room after informed consent was obtained. Placed on the operating table in the supine position and general anesthesia administered. Preoperative antibiotics administered and she was placed into the dorsolithotomy position. Patient was prepped and draped in standard surgical fashion. The 22 Romanian cystoscope passed into the urethra and the bladder examined in a systematic fashion. No mucosal abnormalities were noted. A stone was noted to be at the left ureteral orifice and any flexible grasper was passed through the cystoscope and the stone stone was grasped and removed. A 0.035 guidewire was then passed to the left ureteral orifice and into the left renal pelvis verified on fluoroscopy. We then removed the cystoscope and our semirigid ureteroscope passed into the bladder and into the left ureter. A 2.4 Romanian nitinol stone basket was used to remove other stone fragments left ureteral orifice. A lot of brownish debris then came from the left ureteral orifice and we allow that to decompress. We passed the grasper back into the left ureter several times and finally grasped stones and brought him back through and into the bladder. Further resistance was noted and all the debris had passed the ureteroscope passed into the left ureter normally small stones were left. The ureteroscope then removed and the cystoscope was replaced over the guidewire and a 6 x 24 Romanian stent was passed over the guidewire and under fluoroscopy the guidewire was removed and a good curl was noted proximally and distally. The string was left over and tucked into the vagina. Urojet was placed into the urethra. Patient tolerated the procedure well no complications. She was transferred to recovery in stable condition. Condition: stable Disposition: observation Specimens:: Small stones were removed but not sent off Complications:: None
--- NOTE | 2020-10-09 15:19 | HMH.CONS ---
*Admission Date: 10/09/20 *Reason for consult:: Left ureteral calculi with obstruction and elevated white count *History of present illness: Patient is a 54-year-old white female with history of an 8 mm left UPJ stone. She underwent left ureteroscopy and laser lithotripsy and stent placement on October 04 but inadvertently removed her stent on the following day. She presented to the emergency room yesterday and again today with left flank pain. Her white count was found to be 19.4 today and she is mildly febrile 100.7. I recommend we proceed with stone extraction and impression of the left kidney. [facility] History Medical History: Reports:: Anxiety, Asthma, Depression, Diabetes Mellitus Type 2, Hypertension, Kidney Stones, Migraine *Have you ever received a pneumonia vaccine?: Yes *Have you received a flu vaccine this season?: Yes Other Medical History: Reports: Anemia, Arthritis, Cataracts, Thyroid Disease, Other Anesthesia experience/problems:: nac Laterality Cases: Bilateral: Tonsillectomy, Total Knee Replacement Other Surgeries: Yes: Bariatric Surgery, Cholecystectomy, (x2), Ureter Stent, Other (Lithotripsy) Amputation: No Fractures: No - *Social History Smoking Status: Former smoker Tobacco Type: cigarettes # Packs/Day (cigarettes): 1 Alcohol Intake: never Alcohol Intake Frequency:: other Substance Use Type: denies use *Occupational Status:: employed Housing: house Household Members: none *Travel in the last 8 weeks: None - Psychiatric History Pschychiatric History:: Reports:: Anxiety, Depression Family Hx:: No significant family history Review of Systems - Review of Systems Review of systems:: pertinent systems reviewed and negative unless documented below - *Neurologic Reports weakness, Denies confusion, Denies seizure-like activity, Denies dizziness Meds Home Medications Medication Instructions Recorded Confirmed Type Albuterol Sulfate [Albuterol HFA 2 puffs IH Q6HP PRN #1 inh 08/11/18 03/11/20 Rx Inhaler] Fluoxetine HCl 40 mg PO DAILY 08/11/18 03/11/20 History Levothyroxine Sodium 125 mcg PO DAILY 08/11/18 03/11/20 History [Levothyroxine 125mcg (0.125mg) Tab] Olmesartan Medoxomil 40 mg PO DAILY 08/11/18 03/11/20 History Pregabalin [Lyrica 150mg Cap] 150 mg PO BID 08/11/18 03/11/20 History Simvastatin 5 mg PO DAILY 08/11/18 03/11/20 History buPROPion HCL [Wellbutrin SR 150mg 150 mg PO DAILY 08/11/18 03/11/20 History Tablet] etanercept 50 mg/mL (1 mL) 50 mg SQ QWEEK ml 10/20/19 03/11/20 History subcutaneous syringe linaclotide 145 mcg capsule 145 mcg PO DAILY cap 10/20/19 03/11/20 History metronidazole 500 mg tablet 500 mg PO TID tab 10/20/19 03/11/20 History sumatriptan succinate 100 mg tablet See Rx Instructions PO .COMPLEX 10/20/19 03/11/20 Rx #10 tab triamcinolone acetonide 0.1 % ml TOPICAL 10/20/19 03/11/20 History lotion acetaminophen 300 mg-codeine 30 mg 1 tab PO PRN tab 01/08/20 03/11/20 History tablet furosemide 20 mg tablet 20 mg PO PRN tab 01/08/20 03/11/20 History lansoprazole 30 mg capsule,delayed 30 mg PO cap 01/08/20 03/11/20 History release loratadine 10 mg tablet 10 mg PO DAILY tab 01/08/20 03/11/20 History losartan 100 mg tablet 100 mg PO DAILY tab 01/08/20 03/11/20 History montelukast 10 mg tablet 10 mg PO DAILY tab 01/08/20 03/11/20 History potassium chloride 10 mEq meq PO 01/08/20 03/11/20 History tablet,extended release doxepin 10 mg capsule 10 mg PO HS #30 cap 03/11/20 03/11/20 Rx doxycycline hyclate 100 mg 100 mg PO BID 03/11/20 03/11/20 History tablet,delayed release fluticasone 250 mcg-salmeterol 50 ea INHALATION 03/11/20 03/11/20 History mcg/dose blistr powdr for inhalation Ciprofloxacin HCl [Cipro 500mg 500 mg PO BID #14 tab 10/08/20 Rx Tab] Ondansetron [Zofran 4mg ODT] 4 mg PO TIDP PRN #10 tab.rapdis 10/08/20 Rx Oxycodone HCl/Acetaminophen 1 tab PO Q4HP PRN #20 tab 10/08/20 Rx [Percocet 10-325 mg
--- NOTE | 2020-10-09 15:20 | P.PN_ITS ---
[facility] Anesthesia Record Part I Intake, IV Amount: 1,000 Estimated blood loss (mL): 0 Urine output (mL): 0 Blood Pressure: 119/66 SaO2: 92 Pulse Rate: 89 Respiratory Rate: 16 Temperature: 99.8 F Patient is:: Drowsy, Stable Stable to PACU at:: 15:15
--- NOTE | 2020-10-09 16:08 | PC.NURSE ---
154-detailed report called to DIANE Clark [id number]-pt transported to 2nd floor [place] [id number] via hospital bed w/mini rails up and left in care of DIANE Clark with bed locked in lowest position, vss, pt stable
[2020-10-09 16:57] LABS: POC Glucose,Bedside 137 (70-110)
[2020-10-09 17:55] LABS: Chloride 103 mmol/L (98-107)
[2020-10-09 17:56] LABS: Basophils % 0.1 % (0.1-2.0); Eosinophils # 0.1 K/mm3 (0.0-0.4); Eosinophils % 0.3 % (0.1-12.0); Hematocrit 33.2 % (37.0-47.0); Hemoglobin 11.2 g/dL (12.2-16.2); Lymphocytes # 0.8 K/mm3 (0.7-4.5); Lymphocytes % 3.5 % (10-50); Mean Corpuscular HGB Conc 33.6 g/dL (31.8-35.4); Mean Corpuscular Hemoglobin 30.4 pg (27.0-31.2); Mean Corpuscular Volume 90.4 fl (81-99); Mean Platelet Volume 8.3 fl (7.4-10.4); Monocytes % 4.2 % (1.7-9.3); Neutrophils # 21.1 K/mm3 (1.8-7.8); Neutrophils % 91.9 % (37.0-80.0); Platelet Count 225 K/mm3 (142-424); Potassium 4.1 mmoL/L (3.5-5.1); Red Blood Count 3.67 M/mm3 (4.20-5.40); Red Cell Distribution Width 13.4 % (11.5-17.5); Sodium 134 mmol/L (136-145)
[2020-10-09 17:58] LABS: Blood Urea Nitrogen 17 mg/dl (7-17); Creatinine Clearance Estimated 32 mL/min (50-200); Estimated Glomerular Filt Rate 36 ml/min (>60); GFR (African American) 44 ML/MIN (>60)
[2020-10-09 17:59] LABS: Anion Gap 13.1 mEq/L (5-15); Calcium 8.4 mg/dl (8.4-10.2); Carbon Dioxide 22 mmol/L (22.0-30.0); Glucose 149 mg/dl (74-100)
[2020-10-10] VITALS (8 sets, daily range): BP systolic 119–155; BP diastolic 68–91; PULSE 75–99; RESP 16–18; TEMP 36.7–37.9; O2SAT 92–96; BMI 51.0
--- NOTE | 2020-10-10 05:53 | PC.NURSE ---
Patient oriented times four. Admitted for Left Uretal stone and is s/p Left Uretal stent. Patient required Zofran 4 mg times, and 1,000 mg of tylenol. Patient rested comfortably most of the shift. Will continue to monitor for any acute changes.
--- NOTE | 2020-10-10 08:34 | P.PN_ITS ---
[facility] Anesthesia Record Part II Discharge Time: 15:53 Destination: Medical Surgical Department PACU nurse assessment reviewed?: Yes Patient Condition:: Good Anesthesia Complications:: None Swallowing reflex intact?: Yes Cyanosis?: No Blood Pressure: 119/68 Pulse Rate: 92 Temperature: 99.6 F Mental Status: Alert & Oriented Pain level:: 0 Nausea and/or vomitting:: None Intake, IV Amount: 0
--- NOTE | 2020-10-10 08:35 | HMH.ACPN2 ---
Internal Medicine - PN: Subj *Date: 10/10/20 *Time: 08:58 Interval history: Overall feeling better but still complains of nausea and not able to eat much. She is also complaining of a dull headache. Morning labs are pending. Urine culture pending. Exam Vital signs and Labs for Last 24 Hours: Temp Pulse Resp BP Pulse Ox 98.4 F 76 18 128/71 94 L 10/10/20 08:00 10/10/20 08:00 10/10/20 08:00 10/10/20 08:00 10/10/20 08:00 Laboratory Results - last 24 hr 10/09/20 11:45: POC Glucose 165 H 10/09/20 11:45: WBC 19.5 H D, RBC 3.81 L, Hgb 11.8 L D, Hct 34.1 L, MCV 89.5, MCH 31.0, MCHC 34.6, RDW 13.8, Plt Count 255, MPV 8.3, Neut % (Auto) 90.7 H, Lymph % (Auto) 4.0 L, [place] % (Auto) 4.6, Eos % (Auto) 0.5, Baso % (Auto) 0.2, Neut # (Auto) 17.7 H, Lymph # (Auto) 0.8, [place] # (Auto) 0.9, Eos # (Auto) 0.1, Baso # (Auto) 0.0, Total Counted 100, Neutrophils % (Manual) 83 H, Band Neutrophils % 2.0, Lymphocytes % (Manual) 9 L, Monocytes % (Manual) 6, Platelet Estimate Normal, RBC Morphology Normal 10/09/20 11:45: Sodium 134 L, Potassium 4.1, Chloride 102, Carbon Dioxide 23, Anion Gap 13.1, BUN 18 H, Creatinine 1.60 H D, Estimated Creat Clear 30, Estimated GFR 33 L, Est GFR ( Amer) 40 L D, Glucose 150 H D, Calcium 8.7, Total Bilirubin 1.8 H, AST 74 H D, ALT 95 H D, Alkaline Phosphatase 133 H, Total Protein 7.2, Albumin 4.1 D, Globulin 3.1, Albumin/Globulin Ratio 1.3 10/09/20 11:45: Lactate 1.0 10/09/20 14:00: Urine Color Yellow, Urine Appearance Clear, Urine pH 6.0, Ur Specific [place] >= 1.030, Urine Protein 1+, Urine Glucose (UA) Negative, Urine Ketones 1+, Urine Blood 1+, Urine Nitrate Negative, Urine Bilirubin Negative, Urine Urobilinogen 1.0, Ur Leukocyte Esterase Negative, Urine RBC 5-10, Urine WBC None, Ur Squamous Epith Cells 3-5, Amorphous Sediment 1+, Urine Bacteria None 10/09/20 16:02: POC Glucose 137 H 10/09/20 17:20: WBC 23.0 H*, RBC 3.67 L, Hgb 11.2 L, Hct 33.2 L, MCV 90.4, MCH 30.4, MCHC 33.6, RDW 13.4, Plt Count 225, MPV 8.3, Neut % (Auto) 91.9 H, Lymph % (Auto) 3.5 L, [place] % (Auto) 4.2, Eos % (Auto) 0.3, Baso % (Auto) 0.1, Neut # (Auto) 21.1 H, Lymph # (Auto) 0.8, [place] # (Auto) 1.0, Eos # (Auto) 0.1, Baso # (Auto) 0.0 10/09/20 17:20: Sodium 134 L, Potassium 4.1, Chloride 103, Carbon Dioxide 22, Anion Gap 13.1, BUN 17, Creatinine 1.50 H, Estimated Creat Clear 32, Estimated GFR 36 L, Est GFR ( Amer) 44 L, Glucose 149 H, Calcium 8.4 I & O for Last 24 hours: Intake & Output 10/07/20 10/08/20 10/09/20 10/10/20 11:59 11:59 11:59 11:59 Intake Total 2834 / 2834 Balance 2834 / 2834 Weight 270 lb 270 lb Microbiology Reports for the Last 24 Hours: Microbiology 10/09/20 11:45 Blood Blood Culture - Preliminary 10/09/20 11:45 Blood Blood Culture - Preliminary 10/09/20 11:45 Nasopharyngeal Coronavirus COVID-19 PCR - Final Narrative: She is lying flat in bed. She appears in no acute distress. Lungs are clear anteriorly. Heart is regular. Abdomen is obese, soft, nondistended and nontender. Assessment and Plan (1) Ureteral calculi Status: Acute Category: Medical Code(s): N20.1 - Calculus of ureter (2) Hydronephrosis due to obstruction of ureter Status: Acute Category: Medical Code(s): N13.1 - Hydronephrosis with ureteral stricture, not elsewhere classified (3) HBP (high blood pressure) Status: Acute Category: Medical Code(s): I10 - Essential (primary) hypertension (4) Type 2 diabetes mellitus Status: Acute Category: Medical Code(s): E11.9 - Type 2 diabetes mellitus without complications (5) Psoriasis Status: Acute Category: Medical Code(s): L40.9 - Psoriasis, unspecified - Assessment and plan all Dx Assessment and Plan for all problems:: She does not currently have antibiotic coverage. Will start on Levaquin pending results of her urine culture. Awaiting morning labs to see if her white count is trending downward. Continue IV fluids and pain
[2020-10-10 09:07] LABS: Chloride 107 mmol/L (98-107)
[2020-10-10 09:08] LABS: Sodium 139 mmol/L (136-145)
[2020-10-10 09:10] LABS: Alanine Aminotransferase 64 U/L (12-78); Aspartate Amino Transferase 39 U/L (14-36); Blood Urea Nitrogen 17 mg/dl (7-17); Creatinine Clearance Estimated 40 mL/min (50-200); Estimated Glomerular Filt Rate 47 ml/min (>60); GFR (African American) 56 ML/MIN (>60)
[2020-10-10 09:11] LABS: Albumin Level 3.6 g/dl (3.5-5.0); Albumin/Globulin Ratio 1.2 (1.1-1.8); Alkaline Phosphatase 116 U/L (38-126); Bilirubin,Total 1.4 mg/dl (0.2-1.3); Calcium 8.5 mg/dl (8.4-10.2); Carbon Dioxide 25 mmol/L (22.0-30.0); Glucose 146 mg/dl (74-100); Total Protein,Serum 6.6 g/dl (6.3-8.2)
[2020-10-10 09:12] LABS: Basophils % 0.2 % (0.1-2.0); Eosinophils % 0.1 % (0.1-12.0); Lymphocytes # 1.2 K/mm3 (0.7-4.5); Lymphocytes % 8.6 % (10-50); Mean Corpuscular HGB Conc 33.2 g/dL (31.8-35.4); Mean Corpuscular Hemoglobin 30.8 pg (27.0-31.2); Mean Corpuscular Volume 92.7 fl (81-99); Mean Platelet Volume 8.4 fl (7.4-10.4); Monocytes # 0.7 K/mm3 (0.1-1.0); Neutrophils # 11.6 K/mm3 (1.8-7.8); Neutrophils % 86.1 % (37.0-80.0); Platelet Count 215 K/mm3 (142-424); Red Blood Count 3.56 M/mm3 (4.20-5.40); Red Cell Distribution Width 13.5 % (11.5-17.5); White Blood Count 13.4 K/mm3 (4.8-10.8)
[2020-10-10 09:14] LABS: MANUAL DIFFERENTIAL MANUAL DIFFERENTIAL (MANUAL DIFF)
[2020-10-10 09:26] LABS: Lymphocytes % 14 % (10-50); Monocytes % 4 % (2-9); Neutrophils % 82 % (42-76); Platelet Estimate Normal; RBC Morphology Normal; Total Cells Counted 100
--- NOTE | 2020-10-10 14:01 | HMH.PHAVTE ---
[facility] Pharmacy VTE Monitoring - Patient Demographics Admission date: 10/09/20 Report Date: 10/10/20 Time: 14:01 Allergies/Adverse Reactions: Patient Allergies cefdinir Allergy (Severe, Verified 03/11/20 10:59) Difficulty Breathing morphine [MORPHINE] Allergy (Intermediate, Verified 03/11/20 10:59) HALLUCINATIONS Height: 1.55 m Weight: 122.47 kg Patient Problems: Current Active Problems Psoriasis (Acute) Kidney stone (Acute) Hydronephrosis due to obstruction of ureter (Acute) Ureteral calculi (Acute) Hydronephrosis (Acute) HBP (high blood pressure) (Acute) Type 2 diabetes mellitus (Acute) - VTE Risk Labs: VTE Related Lab Results Hgb 11.0 g/dL (12.2-16.2) L 10/10/20 08:49 Hct 33.0 % (37.0-47.0) L 10/10/20 08:49 Plt Count 215 K/mm3 (142-424) 10/10/20 08:49 BUN 17 mg/dl (7-17) 10/10/20 08:49 Creatinine 1.20 mg/dl (0.52-1.04) H 10/10/20 08:49 Estimated Creat Clear 40 mL/min (50-200) 10/10/20 08:49 VTE Score: 6 VTE Risk Level: Moderate Risk - Prophylaxis VTE Prophylaxis Ordered?: Yes Types of VTE Prophylaxis: TEDS Knee High Location of Applied Device: Bilateral Lower Extremeties
--- NOTE | 2020-10-10 16:06 | PC.NURSE ---
Pt has rested intermittently this shift. LS CTA. VSS, low grade fever noted this afternoon, medicated per JUL. Pt c/o pain, headache and nausea t/o shift, medicated per JUL. Pt has poor appetite but tolerating fluids well. Pt ambulating in room independently. Several unmeasured voids noted. Will continue to monitor.
--- NOTE | 2020-10-11 02:55 | PC.NURSE ---
A&OX4. PT TOLERATING RA WELL. PT UP IN ROOM INDEPENDENTLY. PT HAD C/O SEVERE MIGRAINE AT BEGINNING OF SHIFT, ALONG WITH NA. TX PER JUL. PT ALSO REQUESTED PRN BREATHING TX. ON REASSESSMENT PT RESTING IN BED. PT HAS HAD NO C/O ABD PAIN. RESTING IN BED T/O MAJORITY OF SHIFT. VSS WILL CONTINUE TO MONITOR.
[2020-10-11 04:00] VITALS: BP 115/45; PULSE 93; RESP 18; TEMP 36.8; O2SAT 90
[2020-10-11 05:15] VITALS: PULSE 78; PULSE 80
[2020-10-11 05:37] VITALS: BMI 51.0
[2020-10-11 07:02] LABS: Basophils % 0.3 % (0.1-2.0); Eosinophils % 0.4 % (0.1-12.0); Hemoglobin 10.4 g/dL (12.2-16.2); Lymphocytes # 1.4 K/mm3 (0.7-4.5); Lymphocytes % 13.2 % (10-50); Mean Corpuscular HGB Conc 32.6 g/dL (31.8-35.4); Mean Corpuscular Hemoglobin 30.1 pg (27.0-31.2); Mean Corpuscular Volume 92.3 fl (81-99); Monocytes # 0.6 K/mm3 (0.1-1.0); Monocytes % 5.9 % (1.7-9.3); Neutrophils # 8.6 K/mm3 (1.8-7.8); Neutrophils % 80.2 % (37.0-80.0); Platelet Count 221 K/mm3 (142-424); Red Blood Count 3.46 M/mm3 (4.20-5.40); Red Cell Distribution Width 13.6 % (11.5-17.5); White Blood Count 10.7 K/mm3 (4.8-10.8)
[2020-10-11 08:00] VITALS: BP 129/77; PULSE 75; RESP 17; TEMP 36.8; O2SAT 94
--- NOTE | 2020-10-11 08:27 | HMH.ACPN2 ---
<Makenna Garcia - Last Filed: 10/11/20 08:33> Internal Medicine - PN: Subj *Date: 10/11/20 *Time: 08:33 Interval history: Patient continues to have a headache. She states it is much better but continues to be present. She is ambulating without difficulty and voiding QS. She has no abdominal pain. Bowels have moved. She is still not able to eat very much due to some nausea. Laboratory data this morning reveals a normal white blood cell count of 10,700 with a hemoglobin of 10.4 hematocrit of 32. Blood cultures revealing a gram-positive cocci Exam Vital signs and Labs for Last 24 Hours: Temp Pulse Resp BP Pulse Ox 98.3 F 80 18 115/45 L 90 L 10/11/20 04:00 10/11/20 05:15 10/11/20 04:00 10/11/20 04:00 10/11/20 04:00 Laboratory Results - last 24 hr 10/10/20 08:49: WBC 13.4 H D, RBC 3.56 L, Hgb 11.0 L, Hct 33.0 L, MCV 92.7, MCH 30.8, MCHC 33.2, RDW 13.5, Plt Count 215, MPV 8.4, Neut % (Auto) 86.1 H, Lymph % (Auto) 8.6 L, [place] % (Auto) 5.0, Eos % (Auto) 0.1, Baso % (Auto) 0.2, Neut # (Auto) 11.6 H, Lymph # (Auto) 1.2, [place] # (Auto) 0.7, Eos # (Auto) 0.0, Baso # (Auto) 0.0, Total Counted 100, Neutrophils % (Manual) 82 H, Lymphocytes % (Manual) 14, Monocytes % (Manual) 4, Platelet Estimate Normal, RBC Morphology Normal 10/10/20 08:49: Sodium 139, Potassium 4.0, Chloride 107, Carbon Dioxide 25, Anion Gap 11.0, BUN 17, Creatinine 1.20 H, Estimated Creat Clear 40, Estimated GFR 47 L, Est GFR ( Amer) 56 L D, Glucose 146 H, Calcium 8.5, Total Bilirubin 1.4 H, AST 39 H D, ALT 64 D, Alkaline Phosphatase 116, Total Protein 6.6, Albumin 3.6 D, Globulin 3.0, Albumin/Globulin Ratio 1.2 10/11/20 06:38: WBC 10.7, RBC 3.46 L, Hgb 10.4 L, Hct 32.0 L, MCV 92.3, MCH 30.1, MCHC 32.6, RDW 13.6, Plt Count 221, MPV 8.0, Neut % (Auto) 80.2 H, Lymph % (Auto) 13.2, [place] % (Auto) 5.9, Eos % (Auto) 0.4, Baso % (Auto) 0.3, Neut # (Auto) 8.6 H, Lymph # (Auto) 1.4, [place] # (Auto) 0.6, Eos # (Auto) 0.0, Baso # (Auto) 0.0 I & O for Last 24 hours: Intake & Output 10/08/20 10/09/20 10/10/20 10/11/20 11:59 11:59 11:59 11:59 Intake Total 3074 / 3074 2231 / 2231 Balance 3074 / 3074 2231 / 2231 Weight 270 lb 270 lb 270 lb 2 oz Microbiology Reports for the Last 24 Hours: Microbiology 10/09/20 11:45 Blood Blood Culture - Preliminary Gram Positive Cocci 10/09/20 11:45 Blood Blood Culture - Preliminary Gram Positive Cocci 10/09/20 14:00 Urine,Clean Catch Urine Culture - Final Multiple organisms, suggests contamination. - Constitutional no acute distress - *Routine Respiratory Exam Present: CTA bilaterally (Anteriorly and posteriorly) - *Routine Cardiovascular Exam Present: RRR - *Routine Abdominal Exam Present: soft, normoactive bowel sounds. Absent: tenderness - *Routine Extremities Exam Absent: edema, calf tenderness - *Routine Neurological Exam Present: alert, oriented X3 Assessment and Plan (1) Ureteral calculi Status: Acute Category: Medical Code(s): N20.1 - Calculus of ureter (2) Hydronephrosis due to obstruction of ureter Status: Acute Category: Medical Code(s): N13.1 - Hydronephrosis with ureteral stricture, not elsewhere classified (3) HBP (high blood pressure) Status: Acute Category: Medical Code(s): I10 - Essential (primary) hypertension (4) Type 2 diabetes mellitus Status: Acute Category: Medical Code(s): E11.9 - Type 2 diabetes mellitus without complications (5) Psoriasis Status: Acute Category: Medical Code(s): L40.9 - Psoriasis, unspecified - Assessment and plan all Dx Assessment and Plan for all problems:: Patient will be discharged to home today on Levaquin. She will follow-up with her family physician, Dr. Pablo, and also with urology, Dr. Andrade. <Ludwig Padilla - Last Filed: 10/11/20 22:10> Internal Medicine - PN: Subj *Date: 10/11/20 *Time: 22
--- NOTE | 2020-10-11 11:46 | P.PN_ITS ---
Internal Medicine - PN: Subj *Date: 10/11/20 *Time: 11:46 Interval history: Patient status post left ureteroscopy stone extraction and stent placement 2 days ago. Her white count has improved to 10,000 from 23,000. She has remained afebrile now for 24 hours and is tolerating her stent well. Her nausea is also improving. Exam Vital signs and Labs for Last 24 Hours: Temp Pulse Resp BP Pulse Ox 98.3 F 75 17 129/77 94 L 10/11/20 08:00 10/11/20 08:00 10/11/20 08:00 10/11/20 08:00 10/11/20 08:00 Laboratory Results - last 24 hr 10/11/20 06:38: WBC 10.7, RBC 3.46 L, Hgb 10.4 L, Hct 32.0 L, MCV 92.3, MCH 30.1, MCHC 32.6, RDW 13.6, Plt Count 221, MPV 8.0, Neut % (Auto) 80.2 H, Lymph % (Auto) 13.2, [place] % (Auto) 5.9, Eos % (Auto) 0.4, Baso % (Auto) 0.3, Neut # (Auto) 8.6 H, Lymph # (Auto) 1.4, [place] # (Auto) 0.6, Eos # (Auto) 0.0, Baso # (Auto) 0.0 I & O for Last 24 hours: Intake & Output 10/08/20 10/09/20 10/10/20 10/11/20 23:59 23:59 23:59 23:59 Intake Total 1240 / 1240 4065 / 4065 240 / 240 Output Total 0 / 0 Balance 1240 / 1240 4065 / 4065 240 / 240 Weight 125.305 kg 122.47 kg 122.527 kg Microbiology Reports for the Last 24 Hours: Microbiology 10/09/20 11:45 Blood Blood Culture - Preliminary Gram Positive Cocci 10/09/20 11:45 Blood Blood Culture - Preliminary Gram Positive Cocci 10/09/20 14:00 Urine,Clean Catch Urine Culture - Final Multiple organisms, suggests contamination. - Constitutional no acute distress - *Routine HEENT Exam Head: Present: normocephalic Eye: Present: EOMI, PERRL ENT: Present: mucous membranes moist - *Routine Neck Exam Present: supple. Absent: lymphadenopathy - *Routine Respiratory Exam Absent: accessory muscle use - *Routine Cardiovascular Exam Absent: JVD - *Routine Abdominal Exam Absent: tenderness - *Routine Extremities Exam Absent: cyanosis, clubbing, edema - *Routine Skin Exam Present: warm. Absent: rash - *Routine Neurological Exam Present: alert, oriented X3 Assessment and Plan (1) Ureteral calculi Status: Acute Category: Medical Code(s): N20.1 - Calculus of ureter Patient with a several small ureteral stones after ureteroscopy and laser lithotripsy on October 04 in [place]. Her stent had been removed inadvertently the day after her procedure. All the stones were removed from the distal ureter and she still has a stone in the left renal pelvis. She is feeling better and her white count is improved and she has been afebrile. She is to go home today and continue oral antibiotics. I will see her back at the end of the week to discuss treatment of the left renal stone. (2) Hydronephrosis due to obstruction of ureter Status: Acute Category: Medical Code(s): N13.1 - Hydronephrosis with ureteral stricture, not elsewhere classified (3) HBP (high blood pressure) Status: Acute Category: Medical Code(s): I10 - Essential (primary) hypertension (4) Type 2 diabetes mellitus Status: Acute Category: Medical Code(s): E11.9 - Type 2 diabetes mellitus without complications (5) Psoriasis Status: Acute Category: Medical Code(s): L40.9 - Psoriasis, unspecified
--- NOTE | 2020-10-11 14:10 | HMH.DCSUM ---
General - General Admission date:: 10/09/20 <Ludwig Padilla - 10/23/20 14:35> 10/09/20 <Michaela Barillas - 10/11/20 14:16> Discharge date: 10/11/20 <Michaela Barillas - 10/11/20 14:16> HPI HPI: Ms. Murillo is a 54-year-old white female with history of hypertension and diabetes who has a history of recurrent kidney stones. She has been followed by her PCP, Dr. Gonzáles, recently with known left ureteral calculus. She had originally been scheduled for surgery on 10/06/20 but her pain became acutely worse last weekend and she ended up having urgent surgery on 10/04/20 at [facility]. She underwent lithotripsy with stent placement by Dr. Menendez. She was discharged home the following day on 10/05/20, she inadvertently pulled out stent. She returned here to the emergency room last evening with worsening pain and fever. CT scan at that time showed left hydronephrosis and ureter. She was offered admission urologic consultation but declined and went home. She has now returned to the ER today with worsening pain, fever, nausea, and vomiting. Her white count is elevated at 19,000 and BUN and creatinine are elevated. Dr. Andrade, on-call for urology, has been contacted and is planning to take the patient for surgery later today or tomorrow. She is now being admitted for IV fluids, IV antibiotics, and pain control pending her surgery. <Michaela Barillas - 10/11/20 14:16> Hospital Course Hospital Course: The patient was admitted with urinary obstruction due to ureteral calculus resulting from recent lithotripsy. She was started on IV fluids, IV antibiotics, pain management, and urologic consultation was placed with Dr. Andrade. Dr. Andrade saw the patient and took her in for a left ureteroscopy basket stone extraction with left stent placement. By 10/10/2020, she was feeling better, but still complained of some nausea and was having difficulty eating. She was started on Levaquin pending her urine culture results. Her home medications were resumed. By 10/11/2020, she had a headache but was otherwise feeling much better. Her white blood cell count had normalized but her blood cultures were growing gram-positive cocci. Her urine culture showed mixed organisms suggesting contamination. She was stable to be discharged home on Levaquin and will follow up with her family physician, Dr. Pablo, and also with Dr. Andrade. <Michaela Barillas - 10/11/20 14:16> Objective Vital signs: Temp Pulse Resp BP Pulse Ox 98.3 F 75 17 129/77 94 L 10/11/20 08:00 10/11/20 08:00 10/11/20 08:00 10/11/20 08:00 10/11/20 08:00 <Ludwig Padilla - 10/23/20 14:35> Temp Pulse Resp BP Pulse Ox 98.3 F 75 17 129/77 94 L 10/11/20 08:00 10/11/20 08:00 10/11/20 08:00 10/11/20 08:00 10/11/20 08:00 <Michaela Barillas - 10/11/20 14:16> Narrative: - Constitutional no acute distress - *Routine Respiratory Exam Present: CTA bilaterally (Anteriorly and posteriorly) - *Routine Cardiovascular Exam Present: RRR - *Routine Abdominal Exam Present: soft, normoactive bowel sounds. Absent: tenderness - *Routine Extremities Exam Absent: edema, calf tenderness - *Routine Neurological Exam Present: alert, oriented X3 <Michaela Barillas - 10/11/20 14:16> Results Labs on day of discharge: Labs from last 24 hours 10/11/20 06:38 WBC 10.7 RBC 3.46 L Hgb 10.4 L Hct 32.0 L MCV 92.3 MCH 30.1 MCHC 32.6 RDW 13.6 Plt Count 221 MPV 8.0 Neut % (Auto) 80.2 H Lymph % (Auto) 13.2 [place] % (Auto) 5.9 Eos % (Auto) 0.4 Baso % (Auto) 0.3 Neut # (Auto) 8.6 H Lymph # (Auto) 1.4 [place] # (Auto) 0.6 Eos # (Auto) 0.0 Baso # (Auto) 0.0 Preliminary micro results at discharge 10/09/20 11:45 Blood Culture - Preliminary Blood Gram Positive Cocci 10/09/20 11:45 Blood Culture - Preliminary Blood Gram Positive Cocci <Michaela Barillas - 10/11/20 14:16> DS: Diagnosis - Discharge Diagnosis (1)
== END 2020-10-11 11:18 | disposition home or self-care (01) | DRG 660 ==
LOC: ER 13:01 → 2ND 13:33 → SDC 14:19 → 2ND 10-10 07:28
PROVIDERS: Urology; Admitting Provider Family Medicine; Emergency Provider Internal Medicine; PCP Family Medicine; Visit Provider Family Medicine
PROC: 0TC78ZZ Extirpation of Matter from Left Ureter, Via Natural or Artificial Opening Endoscopic (ICD-10-PCS; CPT 52352; principal; 2020-10-09 14:00)
DX: N13.1 Hydronephrosis with ureteral stricture, not elsewhere classified (principal); N20.1 Calculus of ureter; I10 Essential (primary) hypertension; L40.9 Psoriasis, unspecified; E11.9 Type 2 diabetes mellitus without complications
CPT/HCPCS: 52352; 52332; 36415; 74019; 74176; 76000; 80048; 80053; 81001; 82962; 83605; 85007; 85025; 87040; 87077; 87086; 87186; 94640; 96365; 96375; 96376; 99203; 99284; C2617; G0463; J1956; J2185; J2405; U0003

== ENCOUNTER → 2020-11-11 08:01 | Outpatient (CLI) | payer MEDICARE, SELFPAY ==
--- NOTE | 2020-11-11 08:06 | XR_ITS ---
PROCEDURE: XR FOOT WT BEARING LT 3V CLINICAL INDICATION: pain COMPARISON: No exams were available for comparison FINDINGS: There is mild pes planus with osteoarthritic change at the talonavicular joint and at the 2nd metatarsal tarsal joint. No fracture or dislocation. No lytic or blastic change. There is mild widening of the 1st intermetatarsal space. The 2nd metatarsal tarsal junction however maintains normal relationship. Other findings:None. IMPRESSION: Mild pes planus with osteoarthritic change Nonspecific mild widening at the 1st intermetatarsal space Dictated by: Ji Meadows MD 11/11/2020 10:25 Ji Meadows MD in [place] 11/11/2020 10:25
--- NOTE | 2020-11-11 08:06 | XR_ITS ---
PROCEDURE: XR FOOT WT BEARING RT 3V CLINICAL INDICATION: pain COMPARISON: No exams were available for comparison FINDINGS: No fracture or dislocation. No lytic or blastic change. There is normal mineralization. There is mild widening of the 1st intermetatarsal space. The 2nd tarsal metatarsal junction however is maintained Other findings:Mild pes planus IMPRESSION: No acute finding. Mild widening 1st intermetatarsal space with mild pes planus Dictated by: Ji Meadows MD 11/11/2020 10:26 Ji Meadows MD in [facility] 11/11/2020 10:26
== END ==
PROVIDERS: PCP Family Medicine; Visit Provider Nurse Practitioner
DX: M79.672 Pain in left foot (principal); M79.671 Pain in right foot
CPT/HCPCS: 73630

== ENCOUNTER 2021-01-03 09:00 | Outpatient (RCR) | payer MEDICARE, SELFPAY | END 2021-01-03 09:05 | disposition home or self-care (01) | LOC: PT 09:00 | PROVIDERS: PCP Family Medicine; Visit Provider Podiatrist | DX: M76.821 Posterior tibial tendinitis, right leg (principal); M76.822 Posterior tibial tendinitis, left leg | CPT/HCPCS: 97014; 97033; 97110; 97140; 97163; G0283 ==

== ENCOUNTER 2021-03-27 08:19 | Emergency (ER) | payer MEDICARE, SELFPAY ==
[2021-03-27 08:19] VITALS: BP 149/78; PULSE 103; RESP 18; TEMP 37; O2SAT 98; BMI 39.9
--- NOTE | 2021-03-27 08:35 | CT_ITS ---
PROCEDURE INFORMATION: Exam: CT Abdomen And Pelvis Without Contrast Exam date and time: 03/27/2021 8:35 AM Age: 55 years old Clinical indication: Abdominal pain; Flank; Left; Additional info: R/O kidney stone-- previous surgery due to infection from stone-- TECHNIQUE: Imaging protocol: Computed tomography of the abdomen and pelvis without contrast. Radiation optimization: All CT scans at this facility use at least one of these dose optimization techniques: automated exposure control; mA and/or kV adjustment per patient size (includes targeted exams where dose is matched to clinical indication); or iterative reconstruction. COMPARISON: CT ABDOMEN PELVIS WO CON 10/08/2020 2:05 PM FINDINGS: Tubes, catheters and devices: Midline surgical clips Lungs: Bibasilar atelectasis Liver: Normal. No mass. Gallbladder and bile ducts: Cholecystectomy Pancreas: Normal. No ductal dilation. Spleen: Normal. No splenomegaly. Adrenal glands: Normal. No mass. Kidneys and ureters: 6.7 millimeter proximal LEFT ureteral calculus causes dilatation of LEFT collecting system and LEFT ureter. The LEFT kidney is edematous and there is LEFT perirenal stranding. Nonobstructing left renal calculus Stomach and bowel: Surgical clips in the stomach and jejunum Appendix: No evidence of appendicitis. Intraperitoneal space: Unremarkable. No free air. No significant fluid collection. Vasculature: Unremarkable. No abdominal aortic aneurysm. Lymph nodes: Unremarkable. No enlarged lymph nodes. Urinary bladder: Unremarkable as visualized. Reproductive: Surgical resection of the uterus Bones/joints: Unremarkable. No acute fracture. Soft tissues: Small umbilical hernia contains fat IMPRESSION: 6.7 millimeter proximal LEFT ureteral calculus causes dilatation of LEFT collecting system and LEFT ureter. The LEFT kidney is edematous and there is LEFT perirenal stranding.
[2021-03-27 08:38] LABS: Microscopic, Urine URINE MICROSCOPIC (MICROSCOPIC)
[2021-03-27 08:39] LABS: Appearance,Urine CLEAR (Clear); Bilirubin,Urine Negative (Negative); Blood, Urine TRACE-I (Negative); Color,Urine YELLOW (Yellow); Glucose,Urine (UA) Negative (Negative); Ketones,Urine Negative (Negative); Leukocyte Esterase,Urine 1+ (Negative); Nitrate,Urine Negative (Negative); PH,Urine 5.5 (5.0-8.5); Protein,Urine Negative (Negative); Specific Gravity, Urine 1.025 (1.005-1.030); Urobilinogen,Urine 0.2 EU/dl (0.2)
[2021-03-27 08:43] LABS: Basophils # 0.1 K/mm3 (0-0.2); Basophils % 0.8 % (0.1-2.0); Eosinophils # 0.1 K/mm3 (0.0-0.4); Eosinophils % 0.8 % (0.1-12.0); Hematocrit 44.9 % (37.0-47.0); Hemoglobin 14.9 g/dL (12.2-16.2); Lymphocytes # 2.5 K/mm3 (0.7-4.5); Lymphocytes % 16.6 % (10-50); Mean Corpuscular HGB Conc 33.3 g/dL (31.8-35.4); Mean Corpuscular Hemoglobin 30.9 pg (27.0-31.2); Mean Platelet Volume 8.5 fl (7.4-10.4); Monocytes # 0.6 K/mm3 (0.1-1.0); Monocytes % 4.4 % (1.7-9.3); Neutrophils # 11.4 K/mm3 (1.8-7.8); Neutrophils % 77.4 % (37.0-80.0); Platelet Count 397 K/mm3 (142-424); Red Blood Count 4.83 M/mm3 (4.20-5.40); Red Cell Distribution Width 13.5 % (11.5-17.5); White Blood Count 14.8 K/mm3 (4.8-10.8)
--- NOTE | 2021-03-27 08:43 | HMH.EDGENADL ---
ED Disposition Clinical Impression: Left ureteral calculus Disposition: Home, Self-Care Condition on Discharge: Fair Instructions: DI for Kidney Stones Additional Instructions: Additional instructions for KIDNEY STONE (URETERAL CALCULUS): See Dr. Andrade as soon as possible for further evaluation. Call tomorrow to make appointment. Drink plenty of fluids. Strain your urine and save any stones you catch. Return immediately if you develop a fever or have uncontrollable vomiting or uncontrollable pain. Additional instructions for CONTROLLED SUBSTANCES: You have been prescribed a medication that is a controlled substance. Controlled substances include pain medications known as opiates and sedative nerve medications known as benzodiazepines. Tramadol, fioricet, and gabapentin are also controlled substances. Some common opiates include: Codeine (such as Tylenol #3) Hydrocodone (Vicodin, Lortab, Lorcet, Wood) Oxycodone (Percocet, Percodan, Oxycodone, Oxy IR) Some common benzodiazepines include: Diazepam (Valium) Lorazepam (Ativan) Alprazolam (Xanax) Clonazepam (Klonopin) Oxazepam (Serax) All of these controlled substances are highly addictive and frequently abused. Misuse can and frequently does lead to addiction as well as overdose and . Medication should be stored in a locked cabinet or other secure storage unit. Do not store the medication in a motor vehicle. Short term supplies, 3 days or less, are prescribed because of the highly addictive nature of the medication. Any of the controlled substance medication NOT taken should be disposed of properly and NOT SAVED. The recommended method of disposing of unused medications is: Place the medicines in a sealable plastic bag. If the medicine is a solid, crush it or add water to dissolve it. Add something undesirable (cat litter, coffee grounds, etc.) Dispose of sealed bag in household trash Do not flush or pour unused medicines down a sink or drain. Controlled substances should not be shared, given away or sold. Because of the addictive nature and frequent abuse, these medications are sometimes stolen. These medications should be kept in a safe place where they cannot be stolen. Do not keep them in your car or purse. Lost or stolen prescriptions for controlled substances WILL NOT BE REFILLED in this emergency department, regardless of whether a police report was filed. Prescriptions: Oxycodone HCl/Acetaminophen [Percocet 5/325mg tablet] 1 tab PO Q6HP PRN #15 tablet PRN Reason: Moderate To Severe Pain Transmission Status: Sent to [id number] levoFLOXacin [Levaquin 500mg tab] 500 mg PO DAILY #7 tab Transmission Status: Pending to [id number] Referrals: Salima Gonzáles [Primary Care Provider] - - Critical Care Critical Care Time: No Attestation: On 03/27/21, the high probability of a clinically significant, sudden or life threatening deterioration of the following system(s) required my full and direct attention, intervention and personal management. The time I documented below is in addition to time spent performing reported procedures but includes the following listed in this critical care notation. Medical Decision Making - Aurelio Inquiry Pt receiving controlled substance: Yes Aurelio was queried for this patient: Yes Risks and benefits of using a controlled substance: were discussed with pt by me Vital Signs: 03/27/21 08:19 Temperature 98.6 F Temperature Source Oral Pulse Rate [Radial] 103 H Respiratory Rate 18 Blood Pressure [Right Arm] 149/78 H Blood Pressure Mean [Right Arm] 101 Blood Pressure Position [Right Arm] Sitting 02 Sat by Pulse Oximetry 98 Oxygen Delivery Method Room Air - Lab Data Lab Results 03/27/21 08:29: Urine Color Yellow, Urine Appearance Clear, Urine pH 5.5, Ur Specific [place] 1.025, Urine Protein Negative, Urine Glucose (UA) Negative, Urine Ketones Negative, Urine Blood Trac
[2021-03-27 08:48] LABS: Alanine Aminotransferase 20 U/L (12-78); Albumin Level 4.4 g/dl (3.5-5.0); Albumin/Globulin Ratio 1.4 (1.1-1.8); Alkaline Phosphatase 69 U/L (38-126); Anion Gap 10.1 mEq/L (5-15); Aspartate Amino Transferase 29 U/L (14-36); Bilirubin,Total 0.4 mg/dl (0.2-1.3); Blood Urea Nitrogen 27 mg/dl (7-17); Calcium 9.4 mg/dl (8.4-10.2); Carbon Dioxide 32 mmol/L (22.0-30.0); Chloride 101 mmol/L (98-107); Creatinine Clearance Estimated 73 mL/min (50-200); Estimated Glomerular Filt Rate 42 ml/min (>60); GFR (African American) 51 ML/MIN (>60); Globulin 3.1 g/dL (1.3-3.2); Glucose 114 mg/dl (74-100); Potassium 4.1 mmoL/L (3.5-5.1); Sodium 139 mmol/L (136-145); Total Protein,Serum 7.5 g/dl (6.3-8.2)
[2021-03-27 08:52] LABS: Squamous Epithelial Cell,Urine Occasional #/hpf (0-5)
--- NOTE | 2021-03-27 10:28 | PC.NURSE ---
pt ride here and discharged
[2021-03-27 10:29] VITALS: BP 137/77; PULSE 96; RESP 16; TEMP 36.9
== END 2021-03-27 10:33 | disposition home or self-care (01) ==
PROVIDERS: Emergency Provider Emergency Medicine; PCP Family Medicine
DX: N20.1 Calculus of ureter (principal); E11.9 Type 2 diabetes mellitus without complications; J44.9 Chronic obstructive pulmonary disease, unspecified; Z87.891 Personal history of nicotine dependence; E66.9 Obesity, unspecified; Z68.39 Body mass index [BMI] 39.0-39.9, adult; F41.8 Other specified anxiety disorders
CPT/HCPCS: 74176; 80053; 81001; 85025; 87086; 96365; 96367; 96375; 99283; J1956; J2405

== ENCOUNTER → 2021-03-28 13:49 | Outpatient (CLI) | payer MEDICARE, SELFPAY | PROVIDERS: Visit Provider Urology | DX: Z01.812 Encounter for preprocedural laboratory examination (principal); Z11.52 Encounter for screening for COVID-19 | CPT/HCPCS: C9803; U0003; U0005 ==

== ENCOUNTER 2021-03-29 09:06 | Day surgery (SDC) | payer MEDICARE, SELFPAY ==
[2021-03-29] VITALS (12 sets, daily range): BP systolic 96–141; BP diastolic 55–85; PULSE 65–75; RESP 14–20; TEMP 36.1–43; O2SAT 93–96; BMI 51.0
--- NOTE | 2021-03-29 10:23 | HMH.ANESCL ---
[facility] Anesthesia Checklist - Patient Identification Patient Identification: Arm Band - Structural Data Admitted From: Home Planned Operative Procedure/s: Cystoscopy with Left Ureteral Stent Placement Consent for Planned Operative Procedure(s) Verified: Yes Verified Documents: Surgical Consent, History and Physical - NPO Status Verified Time NPO: 00:00 - Additional verifications Anesthesia Reactions: No Hx Blood Transfusions: No Blood Transfusion Reaction: No - Airway Assessment C-Spine Mobility Assessed: Yes (mp2) TMJ Mobility Assessed: Yes Dentition: Good Dentition - Neurological Assessment Level of Consciousness: Awake, Alert - Anesthesia Plan Anesthesia Risk discussed: Yes Anesthesia Plan: Verified ASA Class: III Anesthesia Type: General [facility] History I have reviewed the patient's past medical history: Yes Medical History: Reports:: Anxiety, Asthma, Chronic Obstructive Pulmonary Disease (COPD), Depression, Diabetes Mellitus Type 2, Hyperlipidemia, Hypertension, Kidney Stones, Migraine, MRSA Denies:: Cancer, Diabetes Mellitus Type 1, Internal Pacemaker, Seizures *Have you ever received a pneumonia vaccine?: No *Have you received a flu vaccine this season?: Yes Other Medical History: Reports: Anemia, Arthritis, Cataracts, Thyroid Disease, Other. Denies: Blood Transfusion Reaction Anesthesia experience/problems:: nac Laterality Cases: Bilateral: Arthroscopy Knee, Cataract, Tonsillectomy Other Surgeries: Yes: Bariatric Surgery, Cholecystectomy, Colonoscopy, , Ureter Stent, Other. No: Pacemaker Amputation: No Fractures: No - *Social History Last grade of school completed: High school graduate Smoking Status: Current some day smoker Tobacco Type: cigarettes # Packs/Day (cigarettes): 1 Alcohol Intake: current Alcohol Intake Frequency:: holidays/special occasions only Substance Use Type: denies use *Occupational Status:: disabled Housing: house Household Members: none *Travel in the last 8 weeks: Inside the [place] - Psychiatric History Pschychiatric History:: Reports:: Anxiety, Depression Family Hx:: Diabetes, Hypertension
--- NOTE | 2021-03-29 12:24 | XR_ITS ---
PROCEDURE: XR KUB CLINICAL INDICATION: LEFT STENT PLACEMENT IN OR COMPARISON: CR XR ABDOMEN MIN 2V from 10/09/2020 FINDINGS: Fluoro time: 0.57 minutes. Status post left ureteral stent placement with fluoroscopic assistance. Images submitted with the C-arm showing left ureteral stent over the left upper quadrant in the distal aspect at the region of the left pelvic area. IMPRESSION: Status post left ureteral stent placement with fluoroscopic assistance Dictated by: Ji Meadows MD 03/29/2021 13:59 Ji Meadows MD in [place] 03/29/2021 13:59
--- NOTE | 2021-03-29 12:28 | HMH.ANESI ---
[facility] Anesthesia Record Part I Intake, IV Amount: 500 Estimated blood loss (mL): 0 Urine output (mL): 0 Blood Pressure: 121/78 SaO2: 96 Pulse Rate: 67 Respiratory Rate: 16 Temperature: 99.7 F Patient is:: Drowsy, Stable Stable to PACU at:: 12:25
[2021-03-29 12:33] LABS: POC Glucose,Bedside 97 (70-110)
--- NOTE | 2021-03-29 13:02 | SUR.PHASEI ---
1230- blood sugar at this time is 97. 1256- detailed report given to michael blount in post op. pt left in stable condition.
--- NOTE | 2021-03-29 15:06 | HMH.OPNOTE ---
Date of procedure: 03/29/21 Pre-op Diagnosis:: Left UPJ stone Post-op Diagnosis:: 8 mm left UPJ stone Procedure performed:: Cystoscopy with stone manipulation and left stent placement Surgeon:: Dragan Andrade MD ANODIC TREATER:: Nabeel Garnett Anesthesia: LMA Estimated blood loss (mL): 0 Clinical Note:: 55-year-old white female with left renal colic noted to have an 8 mm stone in the left UPJ with hydronephrosis. She presents for urologic management. Operative findings:: 8 mm stone at the left UPJ easily manipulated back into the renal pelvis. Operative note:: Patient taken to the operating room after informed consent was obtained. She was placed on the operating room table and general anesthesia administered. Preoperative antibiotics and sequential compression devices placed. She was then placed into the dorsal lithotomy position and prepped and draped in the standard surgical fashion. 20 Smooth passed into the urethra and into the bladder. The bladder was within normal limits. The ureteral orifices in their normal anatomic position. A 5 Martiniquais ureteral catheter passed into the left ureteral orifice and under fluoroscopy passed up to the stone at the left UPJ. It was easily manipulated back into the kidney. The guidewire then passed through the ureteral catheter and the ureteral catheter removed. A 4.8 x 24 Martiniquais stent was then passed over the guidewire and the guidewire removed and a good curl was noted proximally and distally. The string was left on for later removal. Patient tolerated procedure well no complications. Condition: stable Disposition: PACU Specimens:: None Complications:: None
--- NOTE | 2021-03-29 16:20 | P.PN_ITS ---
[facility] Anesthesia Record Part II Discharge Time: 12:55 Destination: Surgical Day Care (OP Surgery) PACU nurse assessment reviewed?: Yes Patient Condition:: Good Anesthesia Complications:: None Swallowing reflex intact?: Yes Cyanosis?: No Blood Pressure: 107/66 Pulse Rate: 69 Temperature: 97.7 F Mental Status: Alert & Oriented Pain level:: 0 Nausea and/or vomitting:: None Intake, IV Amount: 0
[2022-02-02 10:54] LABS: POC Glucose,Bedside 109 (70-110)
== END 2021-03-29 13:26 | disposition home or self-care (01) ==
LOC: OR 09:08
PROVIDERS: PCP Family Medicine; Visit Provider Urology
DX: N20.1 Calculus of ureter (principal); F41.9 Anxiety disorder, unspecified; J44.9 Chronic obstructive pulmonary disease, unspecified; F32.A Depression, unspecified; E11.9 Type 2 diabetes mellitus without complications; E78.5 Hyperlipidemia, unspecified; I10 Essential (primary) hypertension; G43.909 Migraine, unspecified, not intractable, without status migrainosus; Z87.442 Personal history of urinary calculi; Z86.14 Personal history of Methicillin resistant Staphylococcus aureus infection; Z88.1 Allergy status to other antibiotic agents; Z88.6 Allergy status to analgesic agent
CPT/HCPCS: 52330; 74018; 82962; 94640; C2617; J2405

== ENCOUNTER → 2021-04-13 11:56 | Outpatient (CLI) | payer MEDICARE, SELFPAY | PROVIDERS: Visit Provider Urology | DX: N20.0 Calculus of kidney (principal); N20.1 Calculus of ureter; Z01.812 Encounter for preprocedural laboratory examination; Z11.52 Encounter for screening for COVID-19 | CPT/HCPCS: C9803; U0003; U0005 ==

== ENCOUNTER 2021-04-15 09:05 | Day surgery (SDC) | payer MEDICARE, SELFPAY ==
[2021-04-08 14:10] VITALS: BMI 50.1
[2021-04-15] VITALS (8 sets, daily range): BP systolic 114–139; BP diastolic 72–94; PULSE 60–70; RESP 12–18; TEMP 36.3–36.5; O2SAT 94–98
--- NOTE | 2021-04-15 09:12 | XR_ITS ---
PROCEDURE: XR KUB CLINICAL INDICATION: kidney stone COMPARISON: CT CT ABDOMEN PELVIS WO CON from 03/27/2021 CR XR KUB from 03/29/2021 FINDINGS: There is a 10 mm stone overlying the mid to lower pole of the left kidney with smaller adjacent stones. Numerous prominent madeleine are noted along the central aspect of the abdomen IMPRESSION: Left nephrolithiasis Dictated by: Ji Meadows MD 04/15/2021 14:42 Ji Meadows MD in [place] 04/15/2021 14:42
[2021-04-15 10:30] LABS: Basophils # 0.1 K/mm3 (0-0.2); Basophils % 0.9 % (0.1-2.0); Eosinophils # 0.1 K/mm3 (0.0-0.4); Eosinophils % 0.9 % (0.1-12.0); Hematocrit 43.5 % (37.0-47.0); Hemoglobin 14.2 g/dL (12.2-16.2); Lymphocytes # 2.2 K/mm3 (0.7-4.5); Lymphocytes % 25.2 % (10-50); Mean Corpuscular HGB Conc 32.8 g/dL (31.8-35.4); Mean Corpuscular Hemoglobin 30.3 pg (27.0-31.2); Mean Corpuscular Volume 92.5 fl (81-99); Mean Platelet Volume 7.5 fl (7.4-10.4); Monocytes # 0.4 K/mm3 (0.1-1.0); Monocytes % 4.2 % (1.7-9.3); Neutrophils % 68.8 % (37.0-80.0); Platelet Count 407 K/mm3 (142-424); Red Cell Distribution Width 13.1 % (11.5-17.5); White Blood Count 8.8 K/mm3 (4.8-10.8)
[2021-04-15 10:48] LABS: Chloride 107 mmol/L (98-107); Sodium 142 mmol/L (136-145)
[2021-04-15 10:51] LABS: Blood Urea Nitrogen 15 mg/dl (7-17); Calcium 9.4 mg/dl (8.4-10.2); Carbon Dioxide 27 mmol/L (22.0-30.0); Creatinine Clearance Estimated 59 mL/min (50-200); Estimated Glomerular Filt Rate 74 ml/min (>60); GFR (African American) 90 ML/MIN (>60); Glucose 106 mg/dl (74-100)
--- NOTE | 2021-04-15 12:41 | P.PN_ITS ---
[facility] Anesthesia Checklist - Structural Data Admitted From: Home Planned Operative Procedure/s: eswl Consent for Planned Operative Procedure(s) Verified: Yes - Additional verifications Anesthesia Reactions: No Hx Blood Transfusions: No Blood Transfusion Reaction: No - Airway Assessment C-Spine Mobility Assessed: Yes TMJ Mobility Assessed: Yes Dentition: Good Dentition - Neurological Assessment Level of Consciousness: Alert, Appropriate - Anesthesia Plan Anesthesia Risk discussed: Yes Anesthesia Plan: Verified ASA Class: III Anesthesia Type: General [facility] History I have reviewed the patient's past medical history: Yes Medical History: Reports:: Anxiety, Asthma, Chronic Obstructive Pulmonary Disease (COPD), Depression, Diabetes Mellitus Type 2, Hyperlipidemia, Hypertension, Kidney Stones, Migraine Denies:: Cancer, Diabetes Mellitus Type 1, Internal Pacemaker, MRSA, Seizures *Have you ever received a pneumonia vaccine?: No *Have you received a flu vaccine this season?: Yes Other Medical History: Reports: Anemia, Arthritis, Cataracts, Thyroid Disease, Other. Denies: Blood Transfusion Reaction Anesthesia experience/problems:: none Laterality Cases: Bilateral: Arthroscopy Knee, Lumpectomy, Tonsillectomy Other Surgeries: Yes: Bariatric Surgery, Cholecystectomy, Colonoscopy, C- section, Ureter Stent, Other. No: Pacemaker Amputation: No Fractures: No - *Social History Last grade of school completed: High school graduate Smoking Status: Former smoker Tobacco Type: cigarettes # Packs/Day (cigarettes): 1 #Yrs smoked (if former smoker): 40 Smoking End Date: 1 week ago Alcohol Intake: current Alcohol Intake Frequency:: holidays/special occasions only Substance Use Type: denies use *Occupational Status:: employed, disabled Housing: house Household Members: none *Travel in the last 8 weeks: None - Psychiatric History Pschychiatric History:: Reports:: Anxiety, Depression Family Hx:: Diabetes, Hypertension, Other
--- NOTE | 2021-04-15 13:14 | HMH.ANESI ---
[facility] Anesthesia Record Part I Intake, IV Amount: 1,000 Estimated blood loss (mL): 0 Urine output (mL): 0 Blood Pressure: 139/77 SaO2: 94 Pulse Rate: 68 Respiratory Rate: 12 Temperature: 97.4 F Patient is:: Awake, Stable Stable to PACU at:: 13:10
--- NOTE | 2021-04-15 13:19 | HMH.OPNOTE ---
Date of procedure: 04/15/21 Pre-op Diagnosis:: 8 mm left kidney stone Post-op Diagnosis:: Same Procedure performed:: Left ESWL Surgeon:: Dragan Andrade MD [employer] DELIVERY SPECIALIST:: Kojo Connor Anesthesia: LMA Estimated blood loss (mL): 0 Clinical Note:: Patient is a 55-year-old white female with history of left ureteral calculus who underwent previous cystoscopy with left ureteral stone manipulation and left stent placement. She inadvertently removed the stent a few days later but the stone has remained in the left kidney. She presents now for left ESWL. Operative findings:: 8 mm stone in the left lower pole Operative note:: Patient taken to the operating room after informed consent was obtained. Was placed on the operating table in the supine position and general anesthesia administered. Preoperative antibiotics and sequential compression devices placed. She was positioned in the supine position and padded appropriately. Saline filled bag was placed under her left flank and all bubbles were vacuolated from the bag. She was then positioned so that F2 of the lithotripter was focused onto the left kidney stone and 3000 shockwaves then delivered with a maximum energy of 6. The stone fragmented well. The patient tolerated procedure well no complications. Was transferred to recovery in stable condition. Condition: stable Disposition: PACU Specimens:: None Complications:: None
[2021-04-15 13:21] LABS: POC Glucose,Bedside 72 (70-110)
--- NOTE | 2021-04-15 13:21 | SUR.PHASEI ---
blood sugar PACU 76
--- NOTE | 2021-04-18 13:14 | P.PN_ITS ---
[facility] Anesthesia Record Part II Discharge Time: 13:40 Destination: Surgical Day Care (OP Surgery) PACU nurse assessment reviewed?: Yes Patient Condition:: Good Anesthesia Complications:: None Swallowing reflex intact?: Yes Cyanosis?: No Blood Pressure: 126/73 Pulse Rate: 60 Temperature: 97.4 F Mental Status: Alert & Oriented Pain level:: 0 Nausea and/or vomitting:: None Intake, IV Amount: 0
[2021-04-18 13:15] VITALS: BP 126/73; PULSE 60; TEMP 36.3
[2022-02-02 10:55] LABS: POC Glucose,Bedside 102 (70-110)
== END 2021-04-15 14:10 | disposition home or self-care (01) ==
LOC: OR 09:06
PROVIDERS: PCP Family Medicine; Visit Provider Urology
DX: N20.0 Calculus of kidney (principal); F41.9 Anxiety disorder, unspecified; J45.909 Unspecified asthma, uncomplicated; J44.9 Chronic obstructive pulmonary disease, unspecified; F32.A Depression, unspecified; E11.9 Type 2 diabetes mellitus without complications; E78.5 Hyperlipidemia, unspecified; I10 Essential (primary) hypertension; G43.909 Migraine, unspecified, not intractable, without status migrainosus; D64.9 Anemia, unspecified; M19.90 Unspecified osteoarthritis, unspecified site; Z90.49 Acquired absence of other specified parts of digestive tract
CPT/HCPCS: 50590; 74018; 80048; 82962; 85025; 96374; J2405

== ENCOUNTER 2021-04-30 09:20 | Emergency (ER) | payer MEDICARE, SELFPAY ==
[2021-04-30 09:22] VITALS: BMI 54.8
--- NOTE | 2021-04-30 09:22 | XR_ITS ---
PROCEDURE INFORMATION: Exam: XR Left Knee Exam date and time: 04/30/2021 9:22 AM Age: 55 years old Clinical indication: Pain; Knee; Left; Additional info: Fell TECHNIQUE: Imaging protocol: XR Left knee. Views: 1 or 2 views. COMPARISON: No relevant prior exams available. FINDINGS: Bones/joints: Oblique fracture of the distal femoral diaphysis. No other fractures. Total knee arthroplasty without evidence of complication. Soft tissues: Normal. No swelling or abnormal density. IMPRESSION: Fracture of the distal femur.
--- NOTE | 2021-04-30 09:22 | HMH.EDGENADL ---
ED Disposition Clinical Impression: Left femoral shaft fracture Qualifiers: Encounter type: initial encounter Fracture type: closed Fracture morphology: oblique Fracture alignment: displaced Qualified Code(s): S72.332A - Displaced oblique fracture of shaft of left femur, initial encounter for closed fracture Disposition: Xfer Short-Term Hosp Condition on Discharge: Fair Referrals: Provider,Referral, [Referring] - Forms: Transfer Record - ED - Critical Care Critical Care Time: No Attestation: On , the high probability of a clinically significant, sudden or life threatening deterioration of the following system(s) required my full and direct attention, intervention and personal management. The time I documented below is in addition to time spent performing reported procedures but includes the following listed in this critical care notation. Medical Decision Making - Aurelio Inquiry Pt receiving controlled substance: Yes Aurelio was queried for this patient: Yes Risks and benefits of using a controlled substance: were not discussed with pt by me Vital Signs: 04/30/21 09:41 Pulse Rate [Right Radial] 67 Respiratory Rate 18 Blood Pressure [Right Arm] 136/96 H Blood Pressure Mean [Right Arm] 109 Blood Pressure Source [Right Arm] Automatic Cuff Blood Pressure Position [Right Arm] Supine 02 Sat by Pulse Oximetry 98 Oxygen Delivery Method Room Air - Lab Data Lab Results 04/30/21 09:39: WBC 12.9 H, RBC 4.55, Hgb 14.0, Hct 44.5, MCV 97.7, MCH 30.7, MCHC 31.4 L, RDW 13.6, Plt Count 343, MPV 8.9, Neut % (Auto) 62.8, Lymph % (Auto) 30.2, [place] % (Auto) 4.4, Eos % (Auto) 0.9, Baso % (Auto) 1.6, Neut # (Auto) 8.1 H, Lymph # (Auto) 3.9, [place] # (Auto) 0.6, Eos # (Auto) 0.1, Baso # (Auto) 0.2 04/30/21 09:39: Sodium 140, Potassium 3.8, Chloride 103, Carbon Dioxide 28, Anion Gap 12.8, BUN 21 H, Creatinine 0.80, Estimated Creat Clear 59, Estimated GFR 74, Est GFR ( Amer) 90, Glucose 176 H, Calcium 9.3, Total Bilirubin 0.4, AST 31, ALT 25, Alkaline Phosphatase 84, Total Protein 7.0, Albumin 4.0, Globulin 3.0, Albumin/Globulin Ratio 1.3 Result diagrams: 04/30/21 09:39 04/30/21 09:39 Orders (Tests/Meds): ED MEDICATIONS Generic Name Dose Route Start Last Admin Trade Name Freq PRN Reason Stop Dose Admin Sodium Chloride 1,000 mls @ 100 mls/hr 04/30/21 11:00 04/30/21 10:56 Sod Chlor 0.9% 1000ml Bag IV 05/30/21 10:59 100 mls/hr .Q10H SORAYA Administration Discontinued Medications Generic Name Dose Route Start Last Admin Trade Name Freq PRN Reason Stop Dose Admin Hydromorphone HCl 1 mg 04/30/21 09:28 04/30/21 09:20 Hydromorphone 2mg/Ml Syringe IV 04/30/21 09:29 1 mg ONCE ONE Administration Hydromorphone HCl 1 mg 04/30/21 09:39 04/30/21 09:39 Hydromorphone 2mg/Ml Syringe IV 04/30/21 09:40 1 mg ONCE ONE Administration Hydromorphone HCl 1 mg 04/30/21 10:34 04/30/21 10:35 Hydromorphone 2mg/Ml Syringe IV 04/30/21 10:35 1 mg ONCE ONE Administration Ondansetron HCl 4 mg 04/30/21 09:23 04/30/21 09:20 Ondansetron 4mg/2ml Vial IV 04/30/21 09:24 4 mg ONCE ONE Administration ORDERS Category Date Time Status Covid-19 Nasal PCR ([place]) Routine Lab 04/30/21 09:39 Received - Radiology Data #1 Image(s): Chest, Femur, Knee Image Reviewed: Yes I reviewed the patient's radiology image, Yes I have reviewed radiologist's interpretation Preliminary Findings: Abnormal (Displaced distal femur fracture infected. Chest NAD.) PROCEDURE INFORMATION: Exam: XR Left Femur Exam date and time: 04/30/2021 9:45 AM Age: 55 years old Clinical indication: Pain; Thigh; Left; Additional info: Femur FX TECHNIQUE: Imaging protocol: XR Left femur. Views: 2 views. COMPARISON: No relevant priors. FINDINGS: Bones/joints: Oblique fracture of the distal femoral diaphysis. Total knee arthroplasty without evidence of complication. The hip joint is intact. Soft tis
[2021-04-30 09:41] VITALS: BP 136/96; PULSE 67; RESP 18; O2SAT 98; BMI 49.1
--- NOTE | 2021-04-30 09:45 | XR_ITS ---
PROCEDURE INFORMATION: Exam: XR Chest Exam date and time: 04/30/2021 9:45 AM Age: 55 years old Clinical indication: Screening exam; Other screening; Patient HX: Fall; Additional info: Femur FX TECHNIQUE: Imaging protocol: XR of the chest. Views: 1 view. COMPARISON: CR XR CHEST 2V 10/03/2020 8:02 AM FINDINGS: Lungs: Unremarkable. No consolidation. Pleural spaces: Unremarkable. No pleural effusion. No pneumothorax. Heart/Mediastinum: Unremarkable. No cardiomegaly. Bones/joints: Unremarkable. IMPRESSION: No acute cardiopulmonary disease.
--- NOTE | 2021-04-30 09:45 | XR_ITS ---
PROCEDURE INFORMATION: Exam: XR Left Femur Exam date and time: 04/30/2021 9:45 AM Age: 55 years old Clinical indication: Pain; Thigh; Left; Additional info: Femur FX TECHNIQUE: Imaging protocol: XR Left femur. Views: 2 views. COMPARISON: No relevant priors. FINDINGS: Bones/joints: Oblique fracture of the distal femoral diaphysis. Total knee arthroplasty without evidence of complication. The hip joint is intact. Soft tissues: Unremarkable. No swelling or abnormal density. IMPRESSION: Fracture of the distal femur.
[2021-04-30 09:46] LABS: Basophils # 0.2 K/mm3 (0-0.2); Basophils % 1.6 % (0.1-2.0); Eosinophils # 0.1 K/mm3 (0.0-0.4); Eosinophils % 0.9 % (0.1-12.0); Hematocrit 44.5 % (37.0-47.0); Lymphocytes # 3.9 K/mm3 (0.7-4.5); Lymphocytes % 30.2 % (10-50); Mean Corpuscular HGB Conc 31.4 g/dL (31.8-35.4); Mean Corpuscular Hemoglobin 30.7 pg (27.0-31.2); Mean Corpuscular Volume 97.7 fl (81-99); Mean Platelet Volume 8.9 fl (7.4-10.4); Monocytes # 0.6 K/mm3 (0.1-1.0); Monocytes % 4.4 % (1.7-9.3); Neutrophils # 8.1 K/mm3 (1.8-7.8); Neutrophils % 62.8 % (37.0-80.0); Platelet Count 343 K/mm3 (142-424); Red Blood Count 4.55 M/mm3 (4.20-5.40); Red Cell Distribution Width 13.6 % (11.5-17.5); White Blood Count 12.9 K/mm3 (4.8-10.8)
--- NOTE | 2021-04-30 10:22 | PC.NURSE ---
spoke with Dr Zamora (ortho waste reduction coordinator) r/t dx of femur fx. Dr Zamora recommends transfer. Calling [facility] at this time.
[2021-04-30 10:30] LABS: Alanine Aminotransferase 25 U/L (12-78); Albumin/Globulin Ratio 1.3 (1.1-1.8); Alkaline Phosphatase 84 U/L (38-126); Anion Gap 12.8 mEq/L (5-15); Aspartate Amino Transferase 31 U/L (14-36); Bilirubin,Total 0.4 mg/dl (0.2-1.3); Blood Urea Nitrogen 21 mg/dl (7-17); Calcium 9.3 mg/dl (8.4-10.2); Carbon Dioxide 28 mmol/L (22.0-30.0); Chloride 103 mmol/L (98-107); Creatinine Clearance Estimated 59 mL/min (50-200); Estimated Glomerular Filt Rate 74 ml/min (>60); GFR (African American) 90 ML/MIN (>60); Glucose 176 mg/dl (74-100); Potassium 3.8 mmoL/L (3.5-5.1); Sodium 140 mmol/L (136-145)
--- NOTE | 2021-04-30 10:35 | PC.NURSE ---
Dr Gaming talking to Dr Armas at about transfer of patient.
--- NOTE | 2021-04-30 10:36 | PC.NURSE ---
Dr Armas accepted patient to transfer to [facility]
[2021-04-30 10:45] VITALS: BP 150/88; PULSE 77; RESP 20; TEMP 36.8; O2SAT 95
--- NOTE | 2021-04-30 11:10 | PC.NURSE ---
Called and spoke with [facility] [place] for transport
--- NOTE | 2021-04-30 11:46 | PC.NURSE ---
Gave report to Noé at ER
== END 2021-04-30 10:45 | disposition short-term general hospital (02) ==
PROVIDERS: Emergency Provider Emergency Medicine; PCP Family Medicine
DX: S72.332A Displaced oblique fracture of shaft of left femur, initial encounter for closed fracture (principal); W01.0XXA Fall on same level from slipping, tripping and stumbling without subsequent striking against object, initial encounter; Y92.019 Unspecified place in single-family (private) house as the place of occurrence of the external cause; E11.9 Type 2 diabetes mellitus without complications; I10 Essential (primary) hypertension; J44.9 Chronic obstructive pulmonary disease, unspecified; E78.5 Hyperlipidemia, unspecified; F17.210 Nicotine dependence, cigarettes, uncomplicated; Z20.822 Contact with and (suspected) exposure to COVID-19
CPT/HCPCS: 71045; 73552; 73560; 80053; 85025; 96365; 96375; 96376; 99284; C9803; J2405; U0003; U0005

== ENCOUNTER 2021-08-03 22:54 | Emergency (ER) | payer MEDICARE, SELFPAY ==
[2021-08-04 00:09] VITALS: BP 0/0; PULSE 0; RESP 0; TEMP -17.7; TEMP 0; O2SAT 0
== END 2021-08-04 00:12 | disposition left against medical advice (07) ==
LOC: ER 08-04 00:11
PROVIDERS: Emergency Provider Emergency Medicine; PCP Family Medicine
DX: Z53.21 Procedure and treatment not carried out due to patient leaving prior to being seen by health care provider (principal)
CPT/HCPCS: 99211

== ENCOUNTER 2021-10-27 18:29 | Inpatient (IN) | payer MEDICARE, SELFPAY ==
--- NOTE | 2021-10-27 18:30 | PC.NURSE ---
pt to restroom by wheelchair with assistance from DAVID Pineda without complications; she was unable to void at this time. pt to ED room 1 by wheelchair and she transferred from wheelchair to stretcher without complications. family at BS.
--- NOTE | 2021-10-27 18:35 | PC.NURSE ---
pt vomiting, iv started meds given
--- NOTE | 2021-10-27 18:39 | PC.NURSE ---
CECI PORTILLO at
[2021-10-27 18:43] VITALS: BMI 40.8
[2021-10-27 18:44] VITALS: BP 163/93; PULSE 74; RESP 18; TEMP 36.6; O2SAT 98; BMI 40.8
--- NOTE | 2021-10-27 18:46 | XR_ITS ---
PROCEDURE INFORMATION: Exam: XR Chest Exam date and time: 10/27/2021 6:50 PM Age: 55 years old Clinical indication: Pain; Angina pectoris; Additional info: Cp TECHNIQUE: Imaging protocol: Radiologic exam of the chest. Portable AP exam 6:50 p.m. Views: 1 view. Portable AP exam 6:50 p.m. COMPARISON: CR XR CHEST PORTABLE 04/30/2021 9:52 AM FINDINGS: Lungs: No acute pulmonary findings. No pulmonary consolidation. Lung volumes within normal limits. Pulmonary vessels do not appear significantly congested. Minimal chronic nonspecific infrahilar interstitial prominence. A 6 mm right lower lobe or middle lobe granuloma suggested, unchanged compared with the prior study. Pleural spaces: Unremarkable. No significant pleural effusion. No pneumothorax. Heart/Mediastinum: The cardiac silhouette is normal size, considering portable AP technique. Bones/joints: There are spinal degenerative changes, with multilevel disc narrrowing and spondylosis. IMPRESSION: 1. No acute findings. 2. Non emergency and chronic findings as above.
--- NOTE | 2021-10-27 18:47 | HMH.EDABDPAI ---
ED Disposition Clinical Impression: Abdominal pain Qualifiers: Abdominal location: generalized Qualified Code(s): R10.84 - Generalized abdominal pain Disposition: Still a Patient Condition on Discharge: Good Referrals: Salima Gonzáles [Primary Care Provider] - - Critical Care Critical Care Time: No Attestation: On , the high probability of a clinically significant, sudden or life threatening deterioration of the following system(s) required my full and direct attention, intervention and personal management. The time I documented below is in addition to time spent performing reported procedures but includes the following listed in this critical care notation. Medical Decision Making - Medical Records Medical records reviewed: Yes: I reviewed the patient's medical records. - Aurelio Inquiry Pt receiving controlled substance: No Vital Signs: 10/27/21 18:44 Temperature 97.8 F Temperature Source Oral Pulse Rate [Left Radial] 74 Respiratory Rate 18 Blood Pressure [Right Arm] 163/93 H Blood Pressure Mean [Right Arm] 116 02 Sat by Pulse Oximetry 98 - Lab Data Lab Results 10/27/21 18:50: WBC 12.8 H, RBC 5.06, Hgb 15.0, Hct 47.1 H, MCV 93.1, MCH 29.7, MCHC 31.9, RDW 14.1, Plt Count 450 H, MPV 8.2, Neut % (Auto) 60.3, Lymph % (Auto) 32.4, [place] % (Auto) 3.7, Eos % (Auto) 1.6, Baso % (Auto) 2.0, Neut # (Auto) 7.7, Lymph # (Auto) 4.2, [place] # (Auto) 0.5, Eos # (Auto) 0.2, Baso # (Auto) 0.3 H 10/27/21 18:50: Sodium 140, Potassium 4.1, Chloride 103, Carbon Dioxide 26, Anion Gap 15.1 H, BUN 17, Creatinine 0.90, Estimated Creat Clear 108, Estimated GFR 65, Est GFR ( Amer) 78, Glucose 140 H, Calcium 10.2, Total Bilirubin 0.7, AST 33, ALT 25, Alkaline Phosphatase 94, Troponin I < 0.01, Total Protein 8.1, Albumin 4.7, Globulin 3.4 H, Albumin/Globulin Ratio 1.4, Lipase 117 Result diagrams: 10/27/21 18:50 10/27/21 18:50 Orders (Tests/Meds): ED MEDICATIONS Generic Name Dose Route Start Last Admin Trade Name Freq PRN Reason Stop Dose Admin Sodium Chloride 1,000 mls @ 999 mls/hr 10/27/21 19:45 Sod Chlor 0.9% 1000ml Bag IV 10/27/21 20:45 .Q1H1M SORAYA Metoclopramide HCl 10 mg 10/27/21 21:00 Metoclopramide Hcl 10mg/2ml Vial IVP 11/26/21 20:59 ACHS SORAYA Sodium Chloride 8 ml 10/27/21 19:37 Sodium Chloride 0.9% 10ml Vial IV 11/26/21 19:36 NEEDED PRN dilute pepcid Discontinued Medications Generic Name Dose Route Start Last Admin Trade Name Freq PRN Reason Stop Dose Admin Famotidine 20 mg 10/27/21 19:37 Famotidine 20mg/2ml Vial IV 10/27/21 19:38 ONCE ONE Hydromorphone HCl 1 mg 10/27/21 18:51 10/27/21 18:55 Hydromorphone 2mg/Ml Syringe IV 10/27/21 18:52 1 mg ONCE ONE Administration Nitroglycerin 1 gm 10/27/21 18:47 10/27/21 18:56 Nitroglycerin 1 Gm Ointment TD 10/27/21 18:48 1 gm ONCE ONE Administration Ondansetron HCl 8 mg 10/27/21 18:51 10/27/21 18:55 Ondansetron 4mg/2ml Vial IV 10/27/21 18:52 8 mg ONCE ONE Administration Promethazine HCl 12.5 mg 10/27/21 19:37 Promethazine Hcl 25mg/Ml 1ml Vial IV 10/27/21 19:38 ONCE ONE Sodium Chloride 25 ml 10/27/21 19:37 Sodium Chloride 0.9% 25ml Bag IV 10/27/21 19:38 ONCE ONE ORDERS Category Date Time Status CT abdomen pelvis w con Stat Cat Scan 10/27/21 19:39 Ordered Troponin I Q3H Lab 10/27/21 22:00 Ordered Troponin I Q3H Lab 10/28/21 01:00 Ordered UA [Urinalysis and Microscopic] Stat Lab 10/27/21 19:14 Received EKG Request [ECG Request by /Nse] Stat Y 10/27/21 18:49 Ordered - ECG Data Tracing #1 I reviewed this ECG and interpreted as documented below: ekg by me sinus dulce 50, qrs nml, no st elev Abdominal Pain HPI - General Stated Complaint: abd pain Time Seen by Provider: 10/27/21 18:47 - History of Present Illness HPI narrative: epigastric pain, sudden onset crankshaft straightener, assoc with n/v/dizzy/soa, unknown cause Consisten
--- NOTE | 2021-10-27 18:53 | PC.NURSE ---
pt placed on ekg monitor
--- NOTE | 2021-10-27 18:57 | PC.NURSE ---
family at bedside.
[2021-10-27 18:59] LABS: Basophils # 0.3 K/mm3 (0-0.2); Eosinophils # 0.2 K/mm3 (0.0-0.4); Eosinophils % 1.6 % (0.1-12.0); Hematocrit 47.1 % (37.0-47.0); Lymphocytes # 4.2 K/mm3 (0.7-4.5); Lymphocytes % 32.4 % (10-50); Mean Corpuscular HGB Conc 31.9 g/dL (31.8-35.4); Mean Corpuscular Hemoglobin 29.7 pg (27.0-31.2); Mean Corpuscular Volume 93.1 fl (81-99); Mean Platelet Volume 8.2 fl (7.4-10.4); Monocytes # 0.5 K/mm3 (0.1-1.0); Monocytes % 3.7 % (1.7-9.3); Neutrophils # 7.7 K/mm3 (1.8-7.8); Neutrophils % 60.3 % (37.0-80.0); Platelet Count 450 K/mm3 (142-424); Red Blood Count 5.06 M/mm3 (4.20-5.40); Red Cell Distribution Width 14.1 % (11.5-17.5); White Blood Count 12.8 K/mm3 (4.8-10.8)
--- NOTE | 2021-10-27 19:07 | ECG_ITS ---
APPROVED REPORT Exam: Resting ECG HR:50 bpm ECG Measurements Heart Rate 50 AXES AK 139 P 39 QRSd 103 QRS 37 QT 453 T 46 QTc 426 Conclusion SINUS BRADYCARDIA BORDERLINE ECG UNCONFIRMED REPORT Electronically signed by : Zeb Swenson MD 10/28/2021 17:31:39
[2021-10-27 19:12] LABS: Chloride 103 mmol/L (98-107); Sodium 140 mmol/L (136-145)
[2021-10-27 19:13] LABS: Potassium 4.1 mmoL/L (3.5-5.1)
[2021-10-27 19:15] VITALS: BP 122/55; PULSE 53; RESP 16; O2SAT 94
[2021-10-27 19:15] LABS: Alanine Aminotransferase 25 U/L (12-78); Alkaline Phosphatase 94 U/L (38-126); Anion Gap 15.1 mEq/L (5-15); Aspartate Amino Transferase 33 U/L (14-36); Bilirubin,Total 0.7 mg/dl (0.2-1.3); Blood Urea Nitrogen 17 mg/dl (7-17); Calcium 10.2 mg/dl (8.4-10.2); Carbon Dioxide 26 mmol/L (22.0-30.0); Creatinine Clearance Estimated 108 mL/min (50-200); Estimated Glomerular Filt Rate 65 ml/min (>60); GFR (African American) 78 ML/MIN (>60); Glucose 140 mg/dl (74-100); Lipase 117 U/L (23-300)
[2021-10-27 19:16] LABS: Albumin Level 4.7 g/dl (3.5-5.0); Albumin/Globulin Ratio 1.4 (1.1-1.8); Globulin 3.4 g/dL (1.3-3.2); Total Protein,Serum 8.1 g/dl (6.3-8.2)
[2021-10-27 19:18] LABS: Microscopic, Urine URINE MICROSCOPIC (MICROSCOPIC)
[2021-10-27 19:36] LABS: Troponin I < 0.01 ng/ml (0.00-0.034)
--- NOTE | 2021-10-27 19:39 | CT_ITS ---
PROCEDURE INFORMATION: Exam: CT Abdomen And Pelvis With Contrast Exam date and time: 10/27/2021 7:47 PM Age: 55 years old Clinical indication: Abdominal pain; Epigastric; Prior surgery; Surgery date: 6+ months; Surgery type: Gb, gastric bypass; Additional info: Abd pain TECHNIQUE: Imaging protocol: Computed tomography of the abdomen and pelvis with contrast. Radiation optimization: All CT scans at this facility use at least one of these dose optimization techniques: automated exposure control; mA and/or kV adjustment per patient size (includes targeted exams where dose is matched to clinical indication); or iterative reconstruction. Contrast material: ISOVUE; Contrast volume: 75 ml; Contrast route: IV; COMPARISON: CT ABDOMEN PELVIS WO CON 03/27/2021 8:50 AM FINDINGS: Lungs: Mild chronic interstitial prominence in the posterior lower lungs, which could be interstitial scarring or subsegmental atelectasis, unchanged in the interval. No focal consolidation. Liver: Upper normal sized liver. Calcified hepatic granuloma series 3, image 13. No mass. Gallbladder and bile ducts: Cholecystectomy clips. Biliary tree is within normal limits. No calcified stones. Pancreas: Fatty atrophic/infiltrative changes of the pancreas. No ductal dilatation. No mass. Spleen: No splenomegaly. Multiple calcified granulomas. Adrenal glands: The adrenal glands are normal. Kidneys and ureters: 1.8 cm right renal cortical cystic lesion with simple appearance. No suspicious mass. No hydronephrosis, hydroureter, or obstructing calcified ureteral stones as visualized. Stomach and bowel: A very small hiatal hernia appears new compared with the 03/27/2021. Chronic gastric surgical changes post bypass. No acute findings in the stomach. Chronic mildly dilated left upper quadrant jejunal loop, up to 4.6 cm coronal series 1001, image 26, stable to less distended compared with 03/27/2021(measuring approximately 4.8 cm coronal series 1001, image 34 of the prior study.) No significant progressive dilatation, this is probably chronic postop pseudo-obstruction rather than true mechanical obstruction. However, there is some new mild hazy edema distal to this in the left upper quadrant small bowel mesentery with adjacent fluid-filled mildly distended jejunal loops, though these are not significantly dilated, see coronal series 1001, images 34 -42 and axial series 3, images 49 -66, possible mesenteritis or due to underlying enteritis. Mild diverticulosis greatest in the sigmoid, no CT findings of acute diverticulitis. No findings of bowel perforation. Appendix: No findings of appendicitis. Intraperitoneal space: There is no free intraperitoneal air. There is no significant free intraperitoneal fluid. Vasculature: There is no aortic aneurysm. No portal venous gas. Lymph nodes: No significantly enlarged lymph nodes by short axis criteria. Urinary bladder: Urinary bladder is nearly empty and not well evaluated. No calcified stones. Reproductive: Unremarkable as visualized. Post hysterectomy. Bones/joints: There are spinal degenerative changes, with multilevel disc narrrowing and spondylosis. Degenerative changes appear greatest in the lower thoracic spine. Proximal left femur plate and screws are incompletely imaged on this exam, grossly intact as visualized. No acute fracture or dislocation. Bilateral sacroiliitis. Soft tissues: A chronic tiny fatty umbilical hernia, no herniated bowel loops. Chronic anterior abdominal midline surgical madeleine/sutures. IMPRESSION: 1. Hazy increased density of the left upper quadrant jejunal mesentery, new compared with the prior CT from 03/27/20
[2021-10-27 20:00] VITALS: BP 130/74; PULSE 63; RESP 11; O2SAT 94
--- NOTE | 2021-10-27 20:02 | ECG_ITS ---
APPROVED REPORT Exam: Resting ECG HR:56 bpm ECG Measurements Heart Rate 56 AXES CO 155 P 43 QRSd 102 QRS 47 QT 433 T 54 QTc 424 Conclusion SINUS BRADYCARDIA BORDERLINE ECG UNCONFIRMED REPORT Electronically signed by : Zeb Swenson MD 10/28/2021 17:31:34
[2021-10-27 20:06] LABS: Appearance,Urine CLEAR (Clear); Blood, Urine Negative (Negative); Color,Urine YELLOW (Yellow); Glucose,Urine (UA) Negative (Negative); Ketones,Urine TRACE (Negative); Leukocyte Esterase,Urine TRACE (Negative); Nitrate,Urine Negative (Negative); PH,Urine 5.5 (5.0-8.5); Protein,Urine Negative (Negative); Specific Gravity, Urine >= 1.030 (1.005-1.030); Urobilinogen,Urine 0.2 EU/dl (0.2)
[2021-10-27 20:12] LABS: Coronavirus 19, PCR Not Detected (NotDetected); Influenza A, PCR Not Detected (NotDetected); Influenza B, PCR Not Detected (NotDetected)
[2021-10-27 20:24] LABS: Bilirubin,Urine 1+ (Negative)
[2021-10-27 20:30] VITALS: BP 129/69; PULSE 53; RESP 20; O2SAT 95
[2021-10-27 20:35] LABS: Bacteria,Urine Trace /lpf; RBC,Urine Occasional #/hpf (0-3)
[2021-10-27 20:38] LABS: Calcium Oxalate Crystals,Urine 3+ /lpf; WBC,Urine Occasional #/hpf (0-3)
[2021-10-27 21:00] VITALS: BP 137/74; PULSE 63; RESP 13; O2SAT 97
--- NOTE | 2021-10-27 21:13 | PC.NURSE ---
Notified powerhouse engineer of pt admission and need for bed assignment
--- NOTE | 2021-10-27 21:14 | PC.NURSE ---
PATIENT ADMITTED TO [address] HA WITH DX OF ABDOMINAL PAIN.
[2021-10-27 21:26] VITALS: BMI 40.8
[2021-10-27 21:34] LABS: Troponin I < 0.01 ng/ml (0.00-0.034)
--- NOTE | 2021-10-27 23:45 | PC.NURSE ---
PT ARRIVED TO FLOOR VIA W/C FROM ED W/STAFF @ [id number]
[2021-10-27 23:50] VITALS: BP 137/74; PULSE 48; RESP 22; TEMP 36.7; O2SAT 97
[2021-10-28] VITALS (8 sets, daily range): BP systolic 114–155; BP diastolic 59–97; PULSE 50–99; RESP 15–18; TEMP 36.3–36.8; O2SAT 93–99; BMI 40.7
[2021-10-28 01:19] LABS: Troponin I < 0.01 ng/ml (0.00-0.034)
--- NOTE | 2021-10-28 05:00 | PC.NURSE ---
pt complaining of pain, dilaudid not holding pain very long, bjorn was called with no new orders given, pt with nausea and vomiting and zofran given with some relief, pt complains of abd pain radiating to back, voiding without difficulty, no other issues noted.
[2021-10-28 06:43] LABS: Basophils # 0.1 K/mm3 (0-0.2); Basophils % 0.5 % (0.1-2.0); Eosinophils % 0.1 % (0.1-12.0); Hematocrit 42.9 % (37.0-47.0); Hemoglobin 14.1 g/dL (12.2-16.2); Lymphocytes # 1.1 K/mm3 (0.7-4.5); Lymphocytes % 9.8 % (10-50); Mean Corpuscular HGB Conc 32.8 g/dL (31.8-35.4); Mean Corpuscular Hemoglobin 30.8 pg (27.0-31.2); Mean Corpuscular Volume 93.9 fl (81-99); Mean Platelet Volume 8.8 fl (7.4-10.4); Monocytes # 0.2 K/mm3 (0.1-1.0); Monocytes % 1.9 % (1.7-9.3); Neutrophils # 9.6 K/mm3 (1.8-7.8); Neutrophils % 87.7 % (37.0-80.0); Platelet Count 344 K/mm3 (142-424); Red Blood Count 4.57 M/mm3 (4.20-5.40); Red Cell Distribution Width 14.5 % (11.5-17.5); White Blood Count 10.9 K/mm3 (4.8-10.8)
[2021-10-28 06:47] LABS: Chloride 106 mmol/L (98-107); Sodium 139 mmol/L (136-145)
[2021-10-28 06:50] LABS: Blood Urea Nitrogen 15 mg/dl (7-17); Calcium 9.3 mg/dl (8.4-10.2); Carbon Dioxide 25 mmol/L (22.0-30.0); Chol/HDL Ratio 4.5 (1-3.5); Cholesterol 239 mg/dl (140-200); Creatinine Clearance Estimated 139 mL/min (50-200); Estimated Glomerular Filt Rate 87 ml/min (>60); GFR (African American) 105 ML/MIN (>60); Glucose 182 mg/dl (74-100); HDL Cholesterol 53 mg/dl (40-60); Triglycerides 111 mg/dl (30-150); VLDL Cholesterol 22 mg/dL (0-40)
[2021-10-28 06:59] LABS: MANUAL DIFFERENTIAL MANUAL DIFFERENTIAL (MANUAL DIFF)
[2021-10-28 07:01] LABS: Direct LDL Cholesterol 140.27 mg/dL (100-129)
--- NOTE | 2021-10-28 07:27 | P.CONPHA_ITS ---
[facility] Pharmacy VTE Monitoring - Patient Demographics Admission date: 10/28/21 Report Date: 10/28/21 Time: 07:27 Allergies/Adverse Reactions: Patient Allergies cefdinir Allergy (Severe, Verified 04/15/21 10:06) Difficulty Breathing morphine [MORPHINE] Allergy (Intermediate, Verified 04/15/21 10:06) HALLUCINATIONS Height: 1.55 m Weight: 97.976 kg Patient Problems: Current Active Problems Abdominal pain (Acute) - VTE Risk Labs: VTE Related Lab Results Hgb 14.1 g/dL (12.2-16.2) 10/28/21 05:55 Hct 42.9 % (37.0-47.0) 10/28/21 05:55 Plt Count 344 K/mm3 (142-424) 10/28/21 05:55 BUN 15 mg/dl (7-17) 10/28/21 05:55 Creatinine 0.70 mg/dl (0.52-1.04) D 10/28/21 05:55 Estimated Creat Clear 139 mL/min (50-200) 10/28/21 05:55 Was VTE Risk Assessment Performed: Yes VTE Score: 4 VTE Risk Level: Low Risk Clinical Trial Participant: No - Prophylaxis VTE Prophylaxis Ordered?: Yes Types of VTE Prophylaxis: TEDS Knee High
[2021-10-28 07:58] LABS: Lymphocytes % 12 % (10-50); Monocytes % 1 % (2-9); Neutrophils % 87 % (42-76); Platelet Estimate Normal; RBC Morphology Normal; Total Cells Counted 100
--- NOTE | 2021-10-28 08:06 | HMH.GSCON ---
*Admission Date: 10/28/21 *Reason for consult:: Abdominal pain *History of present illness: This is a 55-year-old female seen in consultation from the service of Dr. Ramirez for evaluation regarding abdominal pain. She presented to the emergency department yesterday evening with acute-onset abdominal pain with associated nausea and vomiting. She also describes some dizziness and shortness of air. She states that she has also noticed some intermittent diarrhea over the past 24 to 48 hours. No fevers. Evaluation in the emergency department included a CT scan that revealed some haziness in the jejunal mesentery consistent with possible mesenteric panniculitis versus edema versus enteritis. Of note, she does have a history of gastric bypass that she states was done in the early . Review of Systems - Constitutional Denies chills, Denies fever(s) - *Respiratory Denies cough - *Gastrointestinal Reports abdominal pain, Reports loose stools, Reports nausea, Reports vomiting [facility] History Medical History: Reports:: Anxiety, Asthma, Chronic Obstructive Pulmonary Disease (COPD), Depression, Diabetes Mellitus Type 2, Hyperlipidemia, Hypertension, Kidney Stones, Migraine Denies:: Cancer, Diabetes Mellitus Type 1, Internal Pacemaker, MRSA, Seizures *Have you ever received a pneumonia vaccine?: Yes *Have you received a flu vaccine this season?: Yes Other Medical History: Reports: Anemia, Arthritis, Cataracts, Thyroid Disease, Other. Denies: Blood Transfusion Reaction Laterality Cases: Bilateral: Arthroscopy Knee, Cataract, Lumpectomy, Tonsillectomy Other Surgeries: Yes: Bariatric Surgery, Cholecystectomy, Colonoscopy, , Ureter Stent, Other. No: Pacemaker Amputation: No Fractures: No - *Social History Last grade of school completed: High school graduate Smoking Status: Current every day smoker Tobacco Type: cigarettes, e-cigarettes # Packs/Day (cigarettes): 0 #Yrs smoked (if former smoker): 40 Alcohol Intake: never Alcohol Intake Frequency:: holidays/special occasions only Substance Use Type: denies use *Occupational Status:: employed, disabled Housing: house Household Members: family *Travel in the last 8 weeks: None - Psychiatric History Pschychiatric History:: Reports:: Anxiety, Depression Family Hx:: Diabetes, Hypertension, Other Meds Home Medications Medication Instructions Recorded Confirmed Type Albuterol Sulfate [Ventolin HFA 2 puffs IH Q6HP PRN #1 inh 08/11/18 10/28/21 Rx Inhaler] Fluoxetine HCl 40 mg PO BID 08/11/18 10/28/21 History Levothyroxine Sodium 125 mcg PO DAILYDM 08/11/18 10/28/21 History [Levothyroxine 125mcg (0.125mg) Tab] Pregabalin [Lyrica 150mg Cap] 150 mg PO BID 08/11/18 10/28/21 History Simvastatin 5 mg PO HS 08/11/18 10/28/21 History buPROPion HCL [Wellbutrin SR 150mg 150 mg PO BID 08/11/18 10/28/21 History Tablet] linaclotide 145 mcg capsule 72 mcg PO DAILY cap 10/20/19 10/28/21 History triamcinolone acetonide 0.1 % 1 ml TOPICAL NEEDED PRN 10/20/19 10/28/21 History lotion loratadine 10 mg tablet 10 mg PO DAILY tab 01/08/20 10/28/21 History losartan 100 mg tablet 100 mg PO DAILY tab 01/08/20 10/28/21 History fluticasone 250 mcg-salmeterol 50 1 each INHALATION BID 03/11/20 10/28/21 History mcg/dose blistr powdr for inhalation Montelukast Sodium [Singulair] 10 mg PO PM 10/10/20 10/28/21 History diclofenac sodium 1 % topical gel 4 g TOPICAL QID PRN 30 Days #100 g 01/27/21 10/28/21 Rx Albuterol Sulfate [Albuterol 1.25 mg IH DAILYP PRN 04/08/21 10/28/21 History 0.042% 1.25mg/3mL neb] Ibuprofen [Ibuprofen 800mg 800 mg PO Q8HP PRN 04/08/21 10/28/21 History Tablet] Sitagliptin Phosphate [Januvia 100 mg PO DAILYDM 04/08/21 10/28/21 History 100mg tablet] Pantoprazole Sodium 20 mg PO BID 10/28/21 10/28/21 History Risankizumab-Rzaa [Skyrizi Pen] 150 mg SQ DIRECTED 10/28/21 10/28/21 History Allergies Allergy/AdvReac Type Severity R
--- NOTE | 2021-10-28 09:01 | FL_ITS ---
FINAL REPORT CLINICAL HISTORY: 10 hours small bowl series COMPARISON: CT October 27, 2021 FINDINGS: Sequential anterior projection images of the abdomen were obtained after the ingestion of contrast. Images were obtained up to 22 hours. On the 15 minute images, contrast opacifies a postoperative portion of the stomach. Contrast is also seen within a small bowel loop with abrupt termination in the left abdomen. This small bowel loop has a similar appearance on the 4 hour images. The contrast is seen to partially empty on the 22 hour images. IMPRESSION: Findings most worrisome for high-grade proximal partial small bowel obstruction in the left upper quadrant. Authenticated and ERN
--- NOTE | 2021-10-28 09:02 | HMH.HP ---
*Admission Date: 10/28/21 [facility] History Medical History: Reports:: Anxiety, Asthma, Chronic Obstructive Pulmonary Disease (COPD), Depression, Diabetes Mellitus Type 2, Hyperlipidemia, Hypertension, Kidney Stones, Migraine Denies:: Cancer, Diabetes Mellitus Type 1, Internal Pacemaker, MRSA, Seizures *Have you ever received a pneumonia vaccine?: Yes *Have you received a flu vaccine this season?: Yes Other Medical History: Reports: Anemia, Arthritis, Cataracts, Thyroid Disease, Other. Denies: Blood Transfusion Reaction Laterality Cases: Bilateral: Arthroscopy Knee, Cataract, Lumpectomy, Tonsillectomy Other Surgeries: Yes: Bariatric Surgery, Cholecystectomy, Colonoscopy, , Ureter Stent, Other. No: Pacemaker Amputation: No Fractures: No - *Social History Last grade of school completed: High school graduate Smoking Status: Current every day smoker Tobacco Type: cigarettes, e-cigarettes # Packs/Day (cigarettes): 0 #Yrs smoked (if former smoker): 40 Alcohol Intake: never Alcohol Intake Frequency:: holidays/special occasions only Substance Use Type: denies use *Occupational Status:: employed, disabled Housing: house Household Members: family *Travel in the last 8 weeks: None - Psychiatric History Pschychiatric History:: Reports:: Anxiety, Depression Family Hx:: Diabetes, Hypertension, Other Meds Home Medications Medication Instructions Recorded Confirmed Type Albuterol Sulfate [Ventolin HFA 2 puffs IH Q6HP PRN #1 inh 08/11/18 10/28/21 Rx Inhaler] Fluoxetine HCl 40 mg PO BID 08/11/18 10/28/21 History Levothyroxine Sodium 125 mcg PO DAILYDM 08/11/18 10/28/21 History [Levothyroxine 125mcg (0.125mg) Tab] Pregabalin [Lyrica 150mg Cap] 150 mg PO BID 08/11/18 10/28/21 History Simvastatin 5 mg PO HS 08/11/18 10/28/21 History buPROPion HCL [Wellbutrin SR 150mg 150 mg PO BID 08/11/18 10/28/21 History Tablet] linaclotide 145 mcg capsule 72 mcg PO DAILY cap 10/20/19 10/28/21 History triamcinolone acetonide 0.1 % 1 ml TOPICAL NEEDED PRN 10/20/19 10/28/21 History lotion loratadine 10 mg tablet 10 mg PO DAILY tab 01/08/20 10/28/21 History losartan 100 mg tablet 100 mg PO DAILY tab 01/08/20 10/28/21 History fluticasone 250 mcg-salmeterol 50 1 each INHALATION BID 03/11/20 10/28/21 History mcg/dose blistr powdr for inhalation Montelukast Sodium [Singulair] 10 mg PO PM 10/10/20 10/28/21 History diclofenac sodium 1 % topical gel 4 g TOPICAL QID PRN 30 Days #100 g 01/27/21 10/28/21 Rx Albuterol Sulfate [Albuterol 1.25 mg IH DAILYP PRN 04/08/21 10/28/21 History 0.042% 1.25mg/3mL neb] Ibuprofen [Ibuprofen 800mg 800 mg PO Q8HP PRN 04/08/21 10/28/21 History Tablet] Sitagliptin Phosphate [Januvia 100 mg PO DAILYDM 04/08/21 10/28/21 History 100mg tablet] Pantoprazole Sodium 20 mg PO BID 10/28/21 10/28/21 History Risankizumab-Rzaa [Skyrizi Pen] 150 mg SQ DIRECTED 10/28/21 10/28/21 History Allergies Allergy/AdvReac Type Severity Reaction Status Date / Time cefdinir Allergy Severe Difficulty Verified 04/15/21 10:06 Breathing morphine [MORPHINE] Allergy Intermediate HALLUCINATI Verified 04/15/21 10:06 ONS Exam Vital signs and Labs for Last 24 Hours: Temp Pulse Resp BP Pulse Ox 97.5 F L 99 H 16 117/59 L 99 10/28/21 07:43 10/28/21 07:43 10/28/21 07:43 10/28/21 07:43 10/28/21 07:43 Laboratory Results - last 24 hr 10/27/21 18:50: WBC 12.8 H, RBC 5.06, Hgb 15.0, Hct 47.1 H, MCV 93.1, MCH 29.7, MCHC 31.9, RDW 14.1, Plt Count 450 H, MPV 8.2, Neut % (Auto) 60.3, Lymph % (Auto) 32.4, [place] % (Auto) 3.7, Eos % (Auto) 1.6, Baso % (Auto) 2.0, Neut # (Auto) 7.7, Lymph # (Auto) 4.2, [place] # (Auto) 0.5, Eos # (Auto) 0.2, Baso # (Auto) 0.3 H 10/27/21 18:50: Sodium 140, Potassium 4.1, Chloride 103, Carbon Dioxide 26, Anion Gap 15.1 H, BUN 17, Creatinine 0.90, Estimated Creat Clear 108, Estimated GFR 65, Est GFR ( Amer) 78, Glucose 140 H, Calcium 10.2, Total Bilirubin
--- NOTE | 2021-10-28 10:50 | HMH.PHAINT ---
home medication list verified using lsit from Dr Gonzáles' office and [facility]
--- NOTE | 2021-10-28 15:15 | HMH.GSPN ---
Subjective Narrative: The patient states that she feels about the same . She is no longer passing flatus and states that she has quit having any diarrhea or anything . Progress Note: A&P (1) Nausea and vomiting Status: Acute (2) Diarrhea Status: Acute (3) Abdominal pain Status: Acute Assessment and Plan for All Diagnoses:: As stated above, minimal movement of contrast noted at the 4-hour libby on small bowel follow-through is worrisome for obstruction. Lack of significant dilatation on CT scan and on small bowel follow-through is more consistent with ileus; however, obstruction cannot be ruled out. In addition, the patient did initially complain of diarrhea; however, she now states that she is not even passing gas . Overall concern for post gastric bypass complication (such as internal hernia with developing obstruction) are now somewhat increased. Recommend transfer to a center where bariatric capabilities exist (this is been discussed with Mateus Mcclelland APRN) NG tube ordered. Exam Vital signs and Labs for Last 24 Hours: Temp Pulse Resp BP Pulse Ox 97.5 F L 70 16 117/59 L 99 10/28/21 07:43 10/28/21 08:00 10/28/21 07:43 10/28/21 07:43 10/28/21 07:43 Laboratory Results - last 24 hr 10/27/21 18:50: WBC 12.8 H, RBC 5.06, Hgb 15.0, Hct 47.1 H, MCV 93.1, MCH 29.7, MCHC 31.9, RDW 14.1, Plt Count 450 H, MPV 8.2, Neut % (Auto) 60.3, Lymph % (Auto) 32.4, Lane % (Auto) 3.7, Eos % (Auto) 1.6, Baso % (Auto) 2.0, Neut # (Auto) 7.7, Lymph # (Auto) 4.2, Lane # (Auto) 0.5, Eos # (Auto) 0.2, Baso # (Auto) 0.3 H 10/27/21 18:50: Sodium 140, Potassium 4.1, Chloride 103, Carbon Dioxide 26, Anion Gap 15.1 H, BUN 17, Creatinine 0.90, Estimated Creat Clear 108, Estimated GFR 65, Est GFR ( Amer) 78, Glucose 140 H, Calcium 10.2, Total Bilirubin 0.7, AST 33, ALT 25, Alkaline Phosphatase 94, Troponin I < 0.01, Total Protein 8.1, Albumin 4.7, Globulin 3.4 H, Albumin/Globulin Ratio 1.4, Lipase 117 10/27/21 19:14: Urine Color Yellow, Urine Appearance Clear, Urine pH 5.5, Ur Specific [place] >= 1.030, Urine Protein Negative, Urine Glucose (UA) Negative, Urine Ketones Trace, Urine Blood Negative, Urine Nitrate Negative, Urine Bilirubin 1+ A, Urine Urobilinogen 0.2, Ur Leukocyte Esterase Trace, Urine RBC Occasional, Urine WBC Occasional, Ur Squamous Epith Cells 5-10, Calcium Oxalate Crystal 3+, Urine Bacteria Trace 10/27/21 20:07: SARS-CoV-2 (PCR) Not detected, Influenza A Untype (PCR) Not detected, Influenza Type B (PCR) Not detected 10/27/21 20:58: Troponin I < 0.01 10/28/21 00:47: Troponin I < 0.01 10/28/21 05:55: WBC 10.9 H, RBC 4.57, Hgb 14.1, Hct 42.9, MCV 93.9, MCH 30.8, MCHC 32.8, RDW 14.5, Plt Count 344, MPV 8.8, Neut % (Auto) 87.7 H, Lymph % (Auto) 9.8 L, Lane % (Auto) 1.9, Eos % (Auto) 0.1, Baso % (Auto) 0.5, Neut # (Auto) 9.6 H, Lymph # (Auto) 1.1, Lane # (Auto) 0.2, Eos # (Auto) 0.0, Baso # (Auto) 0.1, Total Counted 100, Neutrophils % (Manual) 87 H, Lymphocytes % (Manual) 12, Monocytes % (Manual) 1 L, Platelet Estimate Normal, RBC Morphology Normal 10/28/21 05:55: Sodium 139, Potassium 4.0, Chloride 106, Carbon Dioxide 25, Anion Gap 12.0, BUN 15, Creatinine 0.70 D, Estimated Creat Clear 139, Estimated GFR 87, Est GFR ( Amer) 105 D, Glucose 182 H D, Calcium 9.3, Triglycerides 111, Cholesterol 239 H, LDL Cholesterol Direct 140.27 H, VLDL Cholesterol 22, HDL Cholesterol 53, Cholesterol/HDL Ratio 4.5 H I & O for Last 24 hours: Intake & Output 10/26/21 10/27/21 10/28/21 10/29/21 11:59 11:59 11:59 11:59 Intake Total 541 / 541 Balance 541 / 541 Weight 216 lb 0.002 oz 215 lb 13.321 oz Radiology Reports for the Last 24 Hours: Preliminary small bowel follow-through films reveal essentially no movement of contrast (beyond proximal bowel) at the 4-hour libby. Radiology has requested additional films later tonight and tomorrow morning. Overall dilatation noted on the films is more consistent with ileus ve
--- NOTE | 2021-10-28 17:32 | HMH.HPDC ---
General - General Admission date:: 10/27/21 Discharge date: 10/28/21 *Admission Date: 10/28/21 *Chief complaint: Abdominal Pain *History of present illness: Female patient presenting to the emergency department at [facility] for reports of increasing abdominal pain. she reports increased abdominal pain over the last 12 hours with nausea/vomiting/diarrhea. She does report some dizziness and shortness of air but none since she has been in the hospital. She denies any fevers/chills/body aches. For having a gastric bypass surgery in the early . CT scan that revealed some haziness in the jejunal mesentery consistent with possible mesenteric panniculitis versus edema versus enteritis [facility] History I have reviewed the patient's past medical history: Yes Medical History: Reports:: Anxiety, Asthma, Chronic Obstructive Pulmonary Disease (COPD), Depression, Diabetes Mellitus Type 2, Hyperlipidemia, Hypertension, Kidney Stones, Migraine Denies:: Cancer, Diabetes Mellitus Type 1, Internal Pacemaker, MRSA, Seizures *Have you ever received a pneumonia vaccine?: Yes *Have you received a flu vaccine this season?: Yes Other Medical History: Reports: Anemia, Arthritis, Cataracts, Thyroid Disease, Other. Denies: Blood Transfusion Reaction Laterality Cases: Bilateral: Arthroscopy Knee, Cataract, Lumpectomy, Tonsillectomy Other Surgeries: Yes: Bariatric Surgery, Cholecystectomy, Colonoscopy, , Ureter Stent, Other. No: Pacemaker Amputation: No Fractures: No - *Social History Last grade of school completed: High school graduate Smoking Status: Current every day smoker Tobacco Type: cigarettes, e-cigarettes # Packs/Day (cigarettes): 0 #Yrs smoked (if former smoker): 40 Alcohol Intake: never Alcohol Intake Frequency:: holidays/special occasions only Substance Use Type: denies use *Occupational Status:: employed, disabled Housing: house Household Members: family *Travel in the last 8 weeks: None - Psychiatric History Pschychiatric History:: Reports:: Anxiety, Depression Family Hx:: Diabetes, Hypertension, Other Review of Systems - Review of Systems Review of systems:: pertinent systems reviewed and negative unless documented below - Constitutional Denies chills, Denies lack of energy - Eyes Denies blurry vision, Denies double vision - ENT Denies dizziness, Denies difficulty swallowing - *Cardiovascular Denies chest pain, Denies chest pain at rest - *Respiratory Denies chest congestion, Denies cough - *Gastrointestinal Reports abdominal pain, Reports change in bowel habits, Reports change in stools, Reports loose stools, Reports loose stools, Reports nausea, Denies coffee ground vomit, Denies vomiting blood, Denies bright, red blood in stools, Denies black, tarry stools - *Musculoskeletal Denies joint pain, Denies muscle cramps - Integumentary/Breasts Denies change in skin color, Denies new lesions - *Neurologic Denies headache(s), Denies loss of vision, Denies memory loss - Psychiatric Denies change in appetite, Denies difficulty concentrating - Endocrine Denies cold intolerance, Denies increased thirst - Hematologic/Lymphatic Denies easy bleeding, Denies easy bruising - Allergic/Immunologic Denies GI upset with certain foods, Denies tongue swelling Exam Vital signs and Labs for Last 24 Hours: Temp Pulse Resp BP Pulse Ox 97.7 F 81 15 114/68 93 L 10/28/21 15:56 10/28/21 16:00 10/28/21 15:56 10/28/21 15:56 10/28/21 15:56 Laboratory Results - last 24 hr 10/27/21 18:50: WBC 12.8 H, RBC 5.06, Hgb 15.0, Hct 47.1 H, MCV 93.1, MCH 29.7, MCHC 31.9, RDW 14.1, Plt Count 450 H, MPV 8.2, Neut % (Auto) 60.3, Lymph % (Auto) 32.4, [place] % (Auto) 3.7, Eos % (Auto) 1.6, Baso % (Auto) 2.0, Neut # (Auto) 7.7, Lymph # (Auto) 4.2, [place] # (Auto) 0.5, Eos # (Auto) 0.2, Baso # (Auto) 0.3 H 10/27/21 18:50: Sodium 140, Potassium 4.1, Chloride 103, Carbon Dioxide 26, Anion Gap 15.1 H, BUN 17, Creatini
[2021-10-28 20:42] LABS: POC Glucose,Bedside 104 (70-110)
[2021-10-29] VITALS (8 sets, daily range): BP systolic 124–136; BP diastolic 67–79; PULSE 60–75; RESP 16–18; TEMP 36.5–36.8; O2SAT 92–97; BMI 40.7
--- NOTE | 2021-10-29 03:02 | PC.NURSE ---
Patient has rested well. NG tube is connected to low continuous wall suction. Patient ambulates to the bathroom independently. Vitals are stable. No acute changes thus far.
[2021-10-29 06:06] LABS: POC Glucose,Bedside 118 (70-110)
--- NOTE | 2021-10-29 07:00 | XR_ITS ---
FINAL REPORT CLINICAL HISTORY: sbo- small bowel follow through- [address] Mireles advised will still review since it is a continuation of small bowel study from yesterday FINDINGS: Multiple anterior projection images of the abdomen were obtained. There is partial emptying of the contrast to the more distal small bowel. In comparison to the other small bowel series images, this is consistent with high-grade partial proximal small bowel obstruction. IMPRESSION: Findings consistent with high grade proximal partial small bowel obstruction. Authenticated and ERN
--- NOTE | 2021-10-29 08:48 | HMH.GSPN ---
Subjective Patient reports: feels better, pain is less, no flatus, no bowel movement Progress Note: A&P (1) Nausea and vomiting Status: Acute (2) Diarrhea Status: Acute (3) Abdominal pain Status: Acute (4) BMI greater than 40 Status: Acute (5) Type 2 diabetes mellitus with diabetic neuropathy, without long-term current use of insulin Status: Acute (6) Small bowel obstruction Status: Acute Assessment and plan: The patient has evidence of partial proximal small bowel obstruction with exceptionally delayed (and only limited) contrast passing distally. Whether this be from true mechanical obstruction from internal hernia/adhesions or profound ileus remains somewhat equivocal. Mechanical obstruction related to adhesions or internal hernia (status post gastric bypass) remains a distinct possibility. The patient has yet to pass flatus but does feel significantly better after nasogastric decompression. I have had a long discussion with her concerning the risks and benefits of surgical intervention. I have also discussed the preference for evaluation and management with regard to her current status be performed at a facility with bariatric experience/capabilities. Currently, no available beds have been found at a facility with bariatric capabilities; however, she remains on wait lists . She wishes to hold off on any surgery for now and possibly get transferred . Exam Vital signs and Labs for Last 24 Hours: Temp Pulse Resp BP Pulse Ox 98 F 75 16 126/71 96 10/29/21 03:52 10/29/21 04:00 10/29/21 03:52 10/29/21 03:52 10/29/21 03:52 Laboratory Results - last 24 hr 10/28/21 20:20: POC Glucose 104 10/29/21 05:25: POC Glucose 118 H I & O for Last 24 hours: Intake & Output 10/26/21 10/27/21 10/28/21 10/29/21 11:59 11:59 11:59 11:59 Intake Total 841 / 841 300 / 300 Output Total 900 / 900 Balance 841 / 841 -600 / -600 Weight 216 lb 0.002 oz 215 lb 13 oz Radiology Reports for the Last 24 Hours: Follow-up films from small bowel follow-through and flat/upright films from this morning revealed persistent increase contrast proximally with a small amount of contrast noted distally. - Constitutional no acute distress - *Routine Respiratory Exam Absent: respiratory distress - *Routine Cardiovascular Exam Absent: tachycardia - *Routine Abdominal Exam Present: soft Comments: Less tender
--- NOTE | 2021-10-29 10:15 | PC.NURSE ---
Recvd call from [facility] (Renee) gave update of patient status & findings per Xray this AM & Surgeon report; states will keep on waiting list.
[2021-10-29 12:47] LABS: POC Glucose,Bedside 115 (70-110)
--- NOTE | 2021-10-29 14:52 | HMH.ACPN2 ---
Internal Medicine - PN: Subj *Date: 10/29/21 *Time: 14:52 Interval history: General surgery notes reviewed. Upper GI studies reviewed. Concerning for high-grade small bowel obstruction likely in the left upper quadrant. Patient with a complex history of bariatric surgery. She accidentally pulled out her NG tube shower this morning, wound to be replaced. She is on a waiting list at . Patient did report passing a very small amount of flatus earlier today, no bowel movements. Has very hypoactive bowel sounds. Exam Vital signs and Labs for Last 24 Hours: Temp Pulse Resp BP Pulse Ox 98.2 F 70 18 125/79 93 L 10/29/21 12:00 10/29/21 12:00 10/29/21 12:00 10/29/21 12:00 10/29/21 12:00 Laboratory Results - last 24 hr 10/28/21 20:20: POC Glucose 104 10/29/21 05:25: POC Glucose 118 H 10/29/21 12:02: POC Glucose 115 H I & O for Last 24 hours: Intake & Output 10/26/21 10/27/21 10/28/21 10/29/21 23:59 23:59 23:59 23:59 Intake Total 1141 / 1141 Output Total 750 / 900 450 / 450 Balance 391 / 241 -450 / -450 Weight 216 lb 0.002 oz 215 lb 13.321 oz 215 lb 13 oz - Constitutional no acute distress, obese - *Routine HEENT Exam Head: Present: normocephalic Eye: Present: EOMI, PERRL ENT: Present: mucous membranes moist - *Routine Neck Exam Present: supple. Absent: lymphadenopathy - *Routine Respiratory Exam Present: CTA bilaterally - *Routine Cardiovascular Exam Present: RRR - *Routine Abdominal Exam Present: tenderness, obese. Absent: guarding - *Routine Extremities Exam Absent: cyanosis, clubbing, edema - *Routine Skin Exam Present: warm. Absent: rash - *Routine Neurological Exam Present: alert, oriented X3 Assessment and Plan (1) Nausea and vomiting Status: Acute Category: Medical Code(s): R11.2 - Nausea with vomiting, unspecified (2) Diarrhea Status: Acute Category: Medical Code(s): R19.7 - Diarrhea, unspecified (3) Abdominal pain Status: Acute Qualifiers: Abdominal location: generalized Qualified Code(s): R10.84 - Generalized abdominal pain Category: Medical Code(s): R10.9 - Unspecified abdominal pain (4) BMI greater than 40 Status: Acute Category: Medical (5) Type 2 diabetes mellitus with diabetic neuropathy, without long-term current use of insulin Status: Acute Category: Medical Code(s): E11.40 - Type 2 diabetes mellitus with diabetic neuropathy, unspecified (6) Small bowel obstruction Status: Acute Category: Medical Code(s): K56.609 - Unspecified intestinal obstruction, unspecified as to partial versus complete obstruction - Assessment and plan all Dx Assessment and Plan for all problems:: replace ng tube await transfer to [facility]
[2021-10-29 18:54] LABS: POC Glucose,Bedside 95 (70-110)
[2021-10-30] VITALS (7 sets, daily range): BP systolic 109–145; BP diastolic 58–89; PULSE 55–82; RESP 17–18; TEMP 36.7–37.3; O2SAT 95–97
--- NOTE | 2021-10-30 05:24 | PC.NURSE ---
Patient rested throughout night. Patient states she is feeling better with less pain and nausea. Patient does state she has a headache. Patient NG has had an output of 600 ml thus far in shift of white drainage.
--- NOTE | 2021-10-30 07:18 | XR_ITS ---
PROCEDURE INFORMATION: Exam: XR Abdomen Exam date and time: 10/30/2021 7:39 AM Age: 55 years old Clinical indication: Constipation and other: Small bowel obstruction; Prior surgery; Surgery date: 6+ months; Surgery type: Gastric bypass; Additional info: Proximal sbo- given barium 10/28 still present on film- small bowel follow through done 10/28 TECHNIQUE: Imaging protocol: Radiologic exam of the abdomen. Views: 2 Views. Upright and supine views. COMPARISON: CR XR ACUTE ABDOMEN SERIES 10/29/2021 7:52 AM FINDINGS: Tubes, catheters and devices: An enteric feeding tube is present, with its tip located in the stomach in good position. Gastrointestinal tract: Dilated loops of small bowel may represent obstruction or ileus. Contrast persists in the small bowel consistent with slowed motility.. Intraperitoneal space: Normal. No free air. Bones/joints: Unremarkable for age. IMPRESSION: Dilated loops of small bowel may represent obstruction or ileus. Contrast persists in the small bowel consistent with slowed motility..
--- NOTE | 2021-10-30 10:04 | HMH.GSPN ---
Subjective Patient reports: no new complaints, flatus (Small amount of flatus noted yesterday) Narrative: She states that she had a little bit of increased pain yesterday . She states that she feels quite a bit better right now . Progress Note: A&P (1) Nausea and vomiting Status: Acute (2) Diarrhea Status: Acute (3) Abdominal pain Status: Acute (4) BMI greater than 40 Status: Acute (5) Type 2 diabetes mellitus with diabetic neuropathy, without long-term current use of insulin Status: Acute (6) Small bowel obstruction Status: Acute Assessment and plan: High-grade partial obstruction versus profound ileus. In the setting of gastric bypass, internal herniation remains a concern. She remains on a transfer list to a facility with bariatric experience/capabilities. She has shown some improvement over the last 48 hours and does not require emergent intervention; however, operative resolution remains a possibility. Exam Vital signs and Labs for Last 24 Hours: Temp Pulse Resp BP Pulse Ox 98.0 F 68 18 109/63 L 97 10/30/21 08:00 10/30/21 08:00 10/30/21 08:00 10/30/21 08:00 10/30/21 08:00 Laboratory Results - last 24 hr 10/29/21 12:02: POC Glucose 115 H 10/29/21 18:47: POC Glucose 95 I & O for Last 24 hours: Intake & Output 10/27/21 10/28/21 10/29/21 10/30/21 11:59 11:59 11:59 11:59 Intake Total 841 / 841 300 / 300 Output Total 1200 / 1200 1100 / 1100 Balance 841 / 841 -900 / -900 -1100 / -1100 Weight 216 lb 0.002 oz 215 lb 13 oz - Constitutional no acute distress - *Routine Respiratory Exam Absent: respiratory distress - *Routine Abdominal Exam Present: soft Comments: Overall improvement with regard to tenderness
--- NOTE | 2021-10-30 10:16 | PC.NURSE ---
Spoke with Renee from for an update
[2021-10-30 12:03] LABS: POC Glucose,Bedside 88 (70-110)
--- NOTE | 2021-10-30 12:57 | P.PN_ITS ---
Internal Medicine - PN: Subj *Date: 10/30/21 *Time: 12:57 Interval history: Patient without significant complaints this morning. She had a small amount of flatus yesterday, none subsequently. NG tube had to be replaced. She remains on a waiting list for [facility]. They called this morning for a status update. Exam Vital signs and Labs for Last 24 Hours: Temp Pulse Resp BP Pulse Ox 98.0 F 68 18 109/63 L 97 10/30/21 08:00 10/30/21 08:00 10/30/21 08:00 10/30/21 08:00 10/30/21 08:00 Laboratory Results - last 24 hr 10/29/21 18:47: POC Glucose 95 10/30/21 11:34: POC Glucose 88 I & O for Last 24 hours: Intake & Output 10/27/21 10/28/21 10/29/21 10/30/21 23:59 23:59 23:59 23:59 Intake Total 1141 / 1141 Output Total 750 / 900 650 / 1050 900 / 900 Balance 391 / 241 -650 / -1050 -900 / -900 Weight 216 lb 0.002 oz 215 lb 13.321 oz 215 lb 13 oz - Constitutional no acute distress, obese - *Routine HEENT Exam Head: Present: normocephalic Eye: Present: EOMI, PERRL ENT: Present: mucous membranes moist - *Routine Neck Exam Present: supple. Absent: lymphadenopathy - *Routine Respiratory Exam Present: CTA bilaterally - *Routine Cardiovascular Exam Present: RRR - *Routine Abdominal Exam Absent: normoactive bowel sounds, guarding, rigid - *Routine Extremities Exam Absent: cyanosis, clubbing, edema - *Routine Skin Exam Present: warm. Absent: rash - *Routine Neurological Exam Present: alert, oriented X3 Assessment and Plan (1) Nausea and vomiting Status: Acute Category: Medical Code(s): R11.2 - Nausea with vomiting, unspecified (2) Diarrhea Status: Acute Category: Medical Code(s): R19.7 - Diarrhea, unspecified (3) Abdominal pain Status: Acute Qualifiers: Abdominal location: generalized Qualified Code(s): R10.84 - Generalized abdominal pain Category: Medical Code(s): R10.9 - Unspecified abdominal pain (4) BMI greater than 40 Status: Acute Category: Medical (5) Type 2 diabetes mellitus with diabetic neuropathy, without long-term current use of insulin Status: Acute Category: Medical Code(s): E11.40 - Type 2 diabetes mellitus with diabetic neuropathy, unspecified (6) Small bowel obstruction Status: Acute Category: Medical Code(s): K56.609 - Unspecified intestinal obstruction, unspecified as to partial versus complete obstruction - Assessment and plan all Dx Assessment and Plan for all problems:: following with surgery awaiting transfer
[2021-10-30 14:31] LABS: POC Glucose,Bedside 93 (70-110)
[2021-10-30 17:15] LABS: POC Glucose,Bedside 88 (70-110)
--- NOTE | 2021-10-30 18:48 | PC.NURSE ---
Spoke with jace from [facility] they still have no beds available.
--- NOTE | 2021-10-30 18:49 | PC.NURSE ---
No change from last assessment. Very uneventful day during my shift. Will continue to monitor.
[2021-10-30 22:10] LABS: POC Glucose,Bedside 89 (70-110)
[2021-10-31] VITALS: BP 108/53; PULSE 68; PULSE 73; RESP 18; TEMP 36.9; O2SAT 94
[2021-10-31 04:00] VITALS: BP 114/60; PULSE 72; PULSE 76; PULSE 80; RESP 18; TEMP 36.4; O2SAT 97
[2021-10-31 05:00] VITALS: BMI 40.7
--- NOTE | 2021-10-31 06:00 | XR_ITS ---
PROCEDURE INFORMATION: Exam: XR Complete Acute Abdomen Series Including Chest Exam date and time: 10/31/2021 5:55 AM Age: 55 years old Clinical indication: Other: Small bowel obstruction; Prior surgery; Surgery date: 6+ months; Surgery type: Gastric bypass; Additional info: High-grade partial sbo. PT had gastroview injected through ng tube at 10:30pm last night for todays 6am xray's. TECHNIQUE: Imaging protocol: Radiologic exam. Complete acute abdomen series, including 2 or more views of the abdomen and a single view chest. COMPARISON: CR XR ABDOMEN MIN 2V 10/30/2021 7:39 AM FINDINGS: Tubes, catheters and devices: Enteric tube tip in the left upper quadrant likely in the stomach. Surgical madeleine in the midline. Lungs: No consolidation or acute findings. Pleural spaces: Normal. No pleural effusions. No pneumothorax. Heart/Mediastinum: No cardiomegaly. Gastrointestinal tract: Contrast noted in the colon. No significantly dilated loops of bowel to suggest obstruction. Intraperitoneal space: No free air. Bones/joints: No acute fracture. Soft tissues: No acute findings IMPRESSION: 1. Contrast in the colon without significantly dilated loops of bowel to suggest obstruction. 2. Enteric tube tip in the stomach.
[2021-10-31 06:01] LABS: Basophils # 0.1 K/mm3 (0-0.2); Basophils % 0.7 % (0.1-2.0); Eosinophils # 0.1 K/mm3 (0.0-0.4); Eosinophils % 0.5 % (0.1-12.0); Hematocrit 41.1 % (37.0-47.0); Hemoglobin 12.8 g/dL (12.2-16.2); Lymphocytes % 21.3 % (10-50); Mean Corpuscular Hemoglobin 29.2 pg (27.0-31.2); Mean Platelet Volume 8.2 fl (7.4-10.4); Monocytes # 0.6 K/mm3 (0.1-1.0); Monocytes % 6.4 % (1.7-9.3); Neutrophils # 6.5 K/mm3 (1.8-7.8); Neutrophils % 71.1 % (37.0-80.0); Platelet Count 325 K/mm3 (142-424); Red Blood Count 4.37 M/mm3 (4.20-5.40); Red Cell Distribution Width 13.9 % (11.5-17.5); White Blood Count 9.2 K/mm3 (4.8-10.8)
[2021-10-31 06:09] LABS: Chloride 106 mmol/L (98-107); Sodium 138 mmol/L (136-145)
[2021-10-31 06:12] LABS: Alanine Aminotransferase 59 U/L (12-78); Alkaline Phosphatase 163 U/L (38-126); Aspartate Amino Transferase 84 U/L (14-36); Bilirubin,Total 1.5 mg/dl (0.2-1.3); Blood Urea Nitrogen 17 mg/dl (7-17); Creatinine Clearance Estimated 139 mL/min (50-200); Estimated Glomerular Filt Rate 87 ml/min (>60); GFR (African American) 105 ML/MIN (>60); Potassium 3.1 mmoL/L (3.5-5.1)
[2021-10-31 06:13] LABS: Albumin Level 3.6 g/dl (3.5-5.0); Albumin/Globulin Ratio 1.2 (1.1-1.8); Anion Gap 10.1 mEq/L (5-15); Calcium 8.5 mg/dl (8.4-10.2); Carbon Dioxide 25 mmol/L (22.0-30.0); Globulin 2.9 g/dL (1.3-3.2); Glucose 99 mg/dl (74-100); Total Protein,Serum 6.5 g/dl (6.3-8.2)
--- NOTE | 2021-10-31 07:32 | P.PN_ITS ---
Subjective Narrative: She did develop some nausea when her nasogastric tube was temporarily clamped after a small amount of additional contrast yesterday evening. Currently she feels okay . Progress Note: A&P (1) Nausea and vomiting Status: Acute (2) Diarrhea Status: Acute (3) Abdominal pain Status: Acute (4) BMI greater than 40 Status: Acute (5) Type 2 diabetes mellitus with diabetic neuropathy, without long-term current use of insulin Status: Acute (6) Small bowel obstruction Status: Acute Assessment and plan: Follow-up films this morning reveal contrast within the colon and no significant small bowel distention. A combination of clinical findings, CT scan, small bowel follow-through, and follow-up films continue to produce equivocal results. She remains nauseous and has increasing abdominal pain when she is not actively being decompressed per nasogastric tube. Despite her stability with nasogastric decompression (no need for emergent surgical intervention) and findings on most recent film suggesting that she does not have an obstruction, I would continue to effort transfer to a center where bariatric capabilities exist. In the interim continue nasogastric decompression warranted. Exam Vital signs and Labs for Last 24 Hours: Temp Pulse Resp BP Pulse Ox 97.5 F L 72 18 114/60 97 10/31/21 04:00 10/31/21 04:00 10/31/21 04:00 10/31/21 04:00 10/31/21 04:00 Laboratory Results - last 24 hr 10/30/21 11:34: POC Glucose 88 10/30/21 14:24: POC Glucose 93 10/30/21 16:58: POC Glucose 88 10/30/21 20:37: POC Glucose 89 10/31/21 05:45: WBC 9.2, RBC 4.37, Hgb 12.8, Hct 41.1, MCV 94.0, MCH 29.2, MCHC 31.0 L, RDW 13.9, Plt Count 325, MPV 8.2, Neut % (Auto) 71.1, Lymph % (Auto) 21.3, [place] % (Auto) 6.4, Eos % (Auto) 0.5, Baso % (Auto) 0.7, Neut # (Auto) 6.5, Lymph # (Auto) 2.0, [place] # (Auto) 0.6, Eos # (Auto) 0.1, Baso # (Auto) 0.1 10/31/21 05:45: Sodium 138, Potassium 3.1 L D, Chloride 106, Carbon Dioxide 25, Anion Gap 10.1, BUN 17, Creatinine 0.70, Estimated Creat Clear 139, Estimated GFR 87, Est GFR ( Amer) 105, Glucose 99, Calcium 8.5, Total Bilirubin 1.5 H, AST 84 H, ALT 59, Alkaline Phosphatase 163 H, Total Protein 6.5, Albumin 3.6, Globulin 2.9, Albumin/Globulin Ratio 1.2 I & O for Last 24 hours: Intake & Output 10/28/21 10/29/21 10/30/21 10/31/21 11:59 11:59 11:59 11:59 Intake Total 841 / 841 300 / 300 Output Total 1200 / 1200 1100 / 1400 700 / 700 Balance 841 / 841 -900 / -900 -1100 / -1400 -700 / -700 Weight 216 lb 0.002 oz 215 lb 13 oz 215 lb 13.885 oz Radiology Reports for the Last 24 Hours: Morning flat/upright films OMPRESSION: 1. Contrast in the colon without significantly dilated loops of bowel to suggest obstruction. 2. Enteric tube tip in the stomach. - Constitutional no acute distress - *Routine Respiratory Exam Absent: respiratory distress - *Routine Cardiovascular Exam Absent: tachycardia - *Routine Abdominal Exam Present: soft
[2021-10-31 08:00] VITALS: BP 124/68; PULSE 74; PULSE 80; RESP 16; TEMP 36.8; O2SAT 94; O2SAT 96
[2021-10-31 08:26] LABS: POC Glucose,Bedside 94 (70-110)
--- NOTE | 2021-10-31 09:02 | P.PN_ITS ---
Internal Medicine - PN: Subj *Date: 10/31/21 *Time: 09:02 Interval history: doing better but has pain and nausea w/o suction - surg note and xray reviewed Exam Vital signs and Labs for Last 24 Hours: Temp Pulse Resp BP Pulse Ox 97.5 F L 72 18 114/60 97 10/31/21 04:00 10/31/21 04:00 10/31/21 04:00 10/31/21 04:00 10/31/21 04:00 Laboratory Results - last 24 hr 10/30/21 11:34: POC Glucose 88 10/30/21 14:24: POC Glucose 93 10/30/21 16:58: POC Glucose 88 10/30/21 20:37: POC Glucose 89 10/31/21 05:45: WBC 9.2, RBC 4.37, Hgb 12.8, Hct 41.1, MCV 94.0, MCH 29.2, MCHC 31.0 L, RDW 13.9, Plt Count 325, MPV 8.2, Neut % (Auto) 71.1, Lymph % (Auto) 21.3, [place] % (Auto) 6.4, Eos % (Auto) 0.5, Baso % (Auto) 0.7, Neut # (Auto) 6.5, Lymph # (Auto) 2.0, [place] # (Auto) 0.6, Eos # (Auto) 0.1, Baso # (Auto) 0.1 10/31/21 05:45: Sodium 138, Potassium 3.1 L D, Chloride 106, Carbon Dioxide 25, Anion Gap 10.1, BUN 17, Creatinine 0.70, Estimated Creat Clear 139, Estimated GFR 87, Est GFR ( Amer) 105, Glucose 99, Calcium 8.5, Total Bilirubin 1.5 H, AST 84 H, ALT 59, Alkaline Phosphatase 163 H, Total Protein 6.5, Albumin 3.6, Globulin 2.9, Albumin/Globulin Ratio 1.2 10/31/21 06:23: POC Glucose 94 I & O for Last 24 hours: Intake & Output 10/28/21 10/29/21 10/30/21 10/31/21 11:59 11:59 11:59 11:59 Intake Total 841 / 841 300 / 300 Output Total 1200 / 1200 1100 / 1400 700 / 700 Balance 841 / 841 -900 / -900 -1100 / -1400 -700 / -700 Weight 216 lb 0.002 oz 215 lb 13 oz 215 lb 13.885 oz - Constitutional no acute distress - *Routine HEENT Exam Head: Present: normocephalic Eye: Present: EOMI, PERRL ENT: Present: mucous membranes moist - *Routine Neck Exam Absent: JVD - *Routine Respiratory Exam Present: CTA bilaterally - *Routine Cardiovascular Exam Present: RRR - *Routine Abdominal Exam Present: soft, tenderness (tender epigastric area with ng tube to suction ) - *Routine Extremities Exam Absent: calf tenderness - *Routine Skin Exam Present: intact - *Routine Neurological Exam Present: alert, CN II-XII intact - Routine Psychiatric Exam Present: normal affect Assessment and Plan (1) Nausea and vomiting Status: Acute Category: Medical Code(s): R11.2 - Nausea with vomiting, unspecified (2) Diarrhea Status: Acute Category: Medical Code(s): R19.7 - Diarrhea, unspecified (3) Abdominal pain Status: Acute Qualifiers: Abdominal location: generalized Qualified Code(s): R10.84 - Generalized abdominal pain Category: Medical Code(s): R10.9 - Unspecified abdominal pain (4) BMI greater than 40 Status: Acute Category: Medical (5) Type 2 diabetes mellitus with diabetic neuropathy, without long-term current use of insulin Status: Acute Category: Medical Code(s): E11.40 - Type 2 diabetes mellitus with diabetic neuropathy, unspecified (6) Small bowel obstruction Status: Acute Category: Medical Code(s): K56.609 - Unspecified intestinal obstruction, unspecified as to partial versus complete obstruction (7) Hernia, internal Status: Acute Category: Medical Code(s): K45.8 - Other specified abdominal hernia without obstruction or gangrene (8) Hypokalemia Status: Acute Category: Medical Code(s): E87.6 - Hypokalemia
--- NOTE | 2021-10-31 10:40 | PC.NURSE ---
rounded on patient. some complaints of potassium run burning. unhooked ng tube so patient could ambulate to bathroom. eager for transfer. no concerns or questions stated major difference in pain between sunday and today. only time she had significant nausea since then was with the oral contrast. rings out as needed. educated if any new concerns arise to please let us know.
--- NOTE | 2021-10-31 10:58 | DIET.NUTRFU ---
RD rounded with Dr. Ramirez this morning, patient has been NPO x3 days. Now has a NG suction and waiting for transfer. Patient reports she is feeling better with NG suction. Sunday when this RD tried to see her she was having a lot nausea and some vomiting. IVF in place with hydration labs WNL. Urine output noted on 10/30 was good and weight is stable.
[2021-10-31 11:39] LABS: POC Glucose,Bedside 78 (70-110)
--- NOTE | 2021-10-31 11:42 | PC.NURSE ---
Recvd call from Jennifer at for update on patient status. Patient still remaining on waiting list
[2021-10-31 12:00] VITALS: BP 139/76; PULSE 66; PULSE 7; RESP 16; TEMP 36.9; O2SAT 94
--- NOTE | 2021-10-31 14:24 | PC.NURSE ---
Addendum entered by Rosa Elena Ambriz RN 10/31/21 18:02: Patient has tolerated NG suction off well; has been asleep since medication has been administered at 13:53 Original Note: Called to patient's room and she was crying stating she wanted to be unhooked from everything that no-one was going to accept her as a patient because it has been so long since she had it done and I haven't had any of my medicines like Prozac for 5 days and when I don't have it I go crazy. Provider notified and states to do trial of turning suction to NG tube off and see how patient tolerates it; provider gave v.o. for Prozac 40mg NG-TUBE BID.
[2021-10-31 16:00] VITALS: BP 139/87; PULSE 70; PULSE 73; RESP 18; TEMP 36.7; O2SAT 97
--- NOTE | 2021-10-31 17:05 | PC.NURSE ---
recvd call from Veronica at [facility] no beds available at this time; patient will remain on list.
[2021-10-31 20:00] VITALS: BP 143/76; PULSE 71; PULSE 76; RESP 20; TEMP 36.7; O2SAT 94
[2021-11-01] VITALS (10 sets, daily range): BP systolic 118–160; BP diastolic 62–91; PULSE 57–71; RESP 16–20; TEMP 36.6–37.1; O2SAT 93–100; BMI 49.4
--- NOTE | 2021-11-01 05:35 | PC.NURSE ---
Pt noted to have less pain this shift. PT reported no nausea. Pt was not hooked up to suction all shift. Pt voiced that she is feeling better at this time.
--- NOTE | 2021-11-01 06:00 | XR_ITS ---
PROCEDURE INFORMATION: Exam: XR Complete Acute Abdomen Series Including Chest Exam date and time: 11/01/2021 5:28 AM Age: 55 years old Clinical indication: Condition or disease; Intestinal condition; Obstruction; Prior surgery; Additional info: Partial proximal sbo; Profound ileus TECHNIQUE: Imaging protocol: Radiologic exam. Complete acute abdomen series, including 2 or more views of the abdomen and a single view chest. COMPARISON: CR XR ACUTE ABDOMEN SERIES 10/31/2021 5:55 AM FINDINGS: Tubes, catheters and devices: NG tube with tip in the proximal stomach. Lungs: Normal. No consolidation. Pleural spaces: Normal. No pleural effusions. No pneumothorax. Heart/Mediastinum: Normal. No cardiomegaly. Gastrointestinal tract: Residual contrast within collapsed colon. Intraperitoneal space: Midline upper abdominal madeleine. Localized air-fluid levels in the left mid abdomen. Bones/joints: Normal. No acute fracture. Soft tissues: Normal. IMPRESSION: 1. NG tube in situ. 2. Localized nonspecific air-fluid levels in the left mid abdomen. Clinical correlation and follow-up recommended. 3. Residual contrast within collapsed colon. 4. Midline upper abdominal madeleine.
[2021-11-01 06:16] LABS: POC Glucose,Bedside 72 (70-110)
--- NOTE | 2021-11-01 06:53 | PC.NURSE ---
ng pulled this am per Dr. Yanes verbal order. Pt tolerated well adn was happy to have it removed.
--- NOTE | 2021-11-01 07:07 | HMH.GSPN ---
Subjective Narrative: The patient states that she feels quite a bit better this morning . She has had a few small additional episodes of diarrhea and a small amount of flatus. Progress Note: A&P (1) Nausea and vomiting Status: Acute (2) Diarrhea Status: Acute (3) Abdominal pain Status: Acute (4) BMI greater than 40 Status: Acute (5) Type 2 diabetes mellitus with diabetic neuropathy, without long-term current use of insulin Status: Acute (6) Small bowel obstruction Status: Acute Assessment and plan: The patient has improved over the past 24 hours (without suction on nasogastric tube). She continues to show evidence of some (limited) bowel function. Morning films reveal increased contrast within the colon. Although she does not have a complete obstruction, a partial high-grade proximal obstruction (whether from adhesions or internal hernia) remain a possibility. If she has a partial obstruction proximally, follow-up abdominal films would not show a significant degree of distention (secondary to the proximal location). She still may ultimately require surgical intervention; however, she has shown improvement without continued nasogastric suction. Her nasogastric tube will be removed and she will be advanced to very limited clear liquid intake (no tray and no carbonation). If she does not continue to improve surgical intervention likely warranted. Note: Transfer remains unlikely (7) Hernia, internal Status: Acute (8) Hypokalemia Status: Acute Exam Vital signs and Labs for Last 24 Hours: Temp Pulse Resp BP Pulse Ox 97.9 F 61 20 137/72 94 L 11/01/21 04:00 11/01/21 04:00 11/01/21 04:00 11/01/21 04:00 11/01/21 04:00 Laboratory Results - last 24 hr 10/31/21 06:23: POC Glucose 94 10/31/21 11:32: POC Glucose 78 10/31/21 22:08: POC Glucose 72 I & O for Last 24 hours: Intake & Output 10/29/21 10/30/21 10/31/21 11/01/21 11:59 11:59 11:59 11:59 Intake Total 300 / 300 0 / 0 Output Total 1200 / 1200 1100 / 1400 700 / 950 250 / 250 Balance -900 / -900 -1100 / -1400 -700 / -950 -250 / -250 Weight 215 lb 13 oz 215 lb 13.885 oz 261 lb 6.4 oz Radiology Reports for the Last 24 Hours: Plain film reveals significant contrast within colon - Constitutional no acute distress - *Routine Respiratory Exam Absent: respiratory distress - *Routine Cardiovascular Exam Absent: tachycardia - *Routine Abdominal Exam Present: soft
[2021-11-01 07:44] LABS: Chloride 104 mmol/L (98-107); Potassium 3.2 mmoL/L (3.5-5.1); Sodium 136 mmol/L (136-145)
[2021-11-01 07:46] LABS: Basophils % 0.6 % (0.1-2.0); Eosinophils # 0.1 K/mm3 (0.0-0.4); Eosinophils % 0.9 % (0.1-12.0); Hematocrit 38.5 % (37.0-47.0); Hemoglobin 12.1 g/dL (12.2-16.2); Lymphocytes # 1.3 K/mm3 (0.7-4.5); Lymphocytes % 21.5 % (10-50); Mean Corpuscular HGB Conc 31.5 g/dL (31.8-35.4); Mean Corpuscular Hemoglobin 30.2 pg (27.0-31.2); Mean Corpuscular Volume 95.9 fl (81-99); Mean Platelet Volume 8.3 fl (7.4-10.4); Monocytes # 0.4 K/mm3 (0.1-1.0); Monocytes % 6.4 % (1.7-9.3); Neutrophils # 4.1 K/mm3 (1.8-7.8); Neutrophils % 70.6 % (37.0-80.0); Platelet Count 271 K/mm3 (142-424); Red Blood Count 4.01 M/mm3 (4.20-5.40); Red Cell Distribution Width 14.2 % (11.5-17.5); White Blood Count 5.8 K/mm3 (4.8-10.8)
[2021-11-01 07:47] LABS: Anion Gap 12.2 mEq/L (5-15); Blood Urea Nitrogen 14 mg/dl (7-17); Calcium 8.5 mg/dl (8.4-10.2); Carbon Dioxide 23 mmol/L (22.0-30.0); Creatinine Clearance Estimated 59 mL/min (50-200); Estimated Glomerular Filt Rate 74 ml/min (>60); GFR (African American) 90 ML/MIN (>60); Glucose 155 mg/dl (74-100)
--- NOTE | 2021-11-01 09:26 | HMH.ACPN2 ---
Internal Medicine - PN: Subj *Date: 11/01/21 *Time: 15:57 Interval history: 55-year-old female patient sitting up in bed resting quietly with eyes open, she reports feeling better today than yesterday. Less less nausea. NG was DC'd this morning and we will try a small clear liquid diet Exam Vital signs and Labs for Last 24 Hours: Temp Pulse Resp BP Pulse Ox 98.2 F 68 19 118/75 99 11/01/21 07:55 11/01/21 07:55 11/01/21 07:55 11/01/21 07:55 11/01/21 07:55 Laboratory Results - last 24 hr 10/31/21 11:32: POC Glucose 78 10/31/21 22:08: POC Glucose 72 11/01/21 07:14: WBC 5.8 D, RBC 4.01 L, Hgb 12.1 L, Hct 38.5, MCV 95.9, MCH 30.2, MCHC 31.5 L, RDW 14.2, Plt Count 271, MPV 8.3, Neut % (Auto) 70.6, Lymph % (Auto) 21.5, [place] % (Auto) 6.4, Eos % (Auto) 0.9, Baso % (Auto) 0.6, Neut # (Auto) 4.1, Lymph # (Auto) 1.3, [place] # (Auto) 0.4, Eos # (Auto) 0.1, Baso # (Auto) 0.0 11/01/21 07:14: Sodium 136, Potassium 3.2 L, Chloride 104, Carbon Dioxide 23, Anion Gap 12.2, BUN 14, Creatinine 0.80, Estimated Creat Clear 59, Estimated GFR 74, Est GFR ( Amer) 90, Glucose 155 H, Calcium 8.5 I & O for Last 24 hours: Intake & Output 10/29/21 10/30/21 10/31/21 11/01/21 23:59 23:59 23:59 23:59 Intake Total 0 / 0 Output Total 650 / 1050 1600 / 1600 250 / 250 0 / 0 Balance -650 / -1050 -1600 / -1600 -250 / -250 0 / 0 Weight 215 lb 13 oz 215 lb 13.885 oz 261 lb 6.4 oz - Constitutional no acute distress, morbidly obese - *Routine HEENT Exam Head: Present: normocephalic Eye: Present: EOMI ENT: Present: mucous membranes moist - *Routine Neck Exam Present: trachea midline. Absent: tracheal deviation - *Routine Respiratory Exam Present: CTA bilaterally. Absent: accessory muscle use - *Routine Cardiovascular Exam Present: RRR - *Routine Abdominal Exam Present: soft, normoactive bowel sounds. Absent: tenderness, firm - *Routine Extremities Exam Present: edema, full ROM, pulses intact. Absent: cyanosis, clubbing - *Routine Skin Exam Present: intact, dry. Absent: cyanosis, erythema - *Routine Neurological Exam Present: alert, oriented X3. Absent: motor deficit, altered mental status - Routine Psychiatric Exam Present: normal affect, normal thought process. Absent: visual hallucinations Assessment and Plan (1) Nausea and vomiting Status: Acute Category: Medical Code(s): R11.2 - Nausea with vomiting, unspecified (2) Diarrhea Status: Acute Category: Medical Code(s): R19.7 - Diarrhea, unspecified (3) Abdominal pain Status: Acute Qualifiers: Abdominal location: generalized Qualified Code(s): R10.84 - Generalized abdominal pain Category: Medical Code(s): R10.9 - Unspecified abdominal pain (4) BMI greater than 40 Status: Acute Category: Medical (5) Type 2 diabetes mellitus with diabetic neuropathy, without long-term current use of insulin Status: Acute Category: Medical Code(s): E11.40 - Type 2 diabetes mellitus with diabetic neuropathy, unspecified (6) Small bowel obstruction Status: Acute Category: Medical Code(s): K56.609 - Unspecified intestinal obstruction, unspecified as to partial versus complete obstruction (7) Hernia, internal Status: Acute Category: Medical Code(s): K45.8 - Other specified abdominal hernia without obstruction or gangrene (8) Hypokalemia Status: Acute Category: Medical Code(s): E87.6 - Hypokalemia - Assessment and plan all Dx Assessment and Plan for all problems:: Rounded with Dr. Ramirez, all orders per Dr. Ramirez: 1. We will trial small clear liquid diet 2. General surgery following 3. Awaiting beds at multiple facilities
--- NOTE | 2021-11-01 10:21 | PC.NURSE ---
Patients NG was removed by physician this AM during rounds; patient is tolerating well; will continue to monitor.
--- NOTE | 2021-11-01 11:17 | HMH.PTEV ---
Physical Therapy Evaluation Rehab PT IP Evaluation Start: 11/01/21 09:25 Freq: ONCE Status: Complete Protocol: Document 11/01/21 11:14 SHERRY (Rec: 11/01/21 11:17 SHERRY [id number]) Subjective/History History History Female patient presenting to the emergency department at [facility] for reports of increasing abdominal pain. she reports increased abdominal pain over the last 12 hours with nausea/vomiting/diarrhea. She does report some dizziness and shortness of air but none since she has been in the hospital. She denies any fevers/chills/body aches. For having a gastric bypass surgery in the early . Evaluation in the emergency department included a CT scan that revealed some haziness in the jejunal mesentery consistent with possible mesenteric panniculitis versus edema versus enteritis. Subjective Subjective Pt reports she is feeling better Rehab PT IP Eval Objective Appearance Patient Behavior Appropriate,Cooperative Patient Orientation Person,Place,Time Difficulty following instructions none Speech Pattern Clear Ambulation Patient Able to Ambulate Yes Ambulation Observation IP General Gait Pattern Observation No Deviations/Normal Ambulation Assistive Device None Ambulation Ability Independent Balance Ability to Arise Able, uses arms to help Sitting Balance Steady, safe Standing Balance Narrow stance w/o support Dynamic Sitting Balance Ability Normal Dynamic Standing Balance Ability Good Transfers Bed Transfer Ability Independent Chair Transfer Ability Independent Sit to Stand Bed Transfer Ability Independent Sit to Stand Chair Transfer Ability Independent ROM All Extremities PT ROM Status WFL MMT All Extremities PT MMT WFL Rehab PT IP prob,goals,plan Problems Date of Evaluation: 11/01/21 Rehab Potential Rehab Potential Innapropriate for Skilled Therapy Discharge Plan PT Discharge Plan Pt has no needs for skilled
--- NOTE | 2021-11-01 12:34 | PC.NURSE ---
1120-rounded on patient at this time. Pt states she is feeling a lot better. tolerating clears. pt denies pain. pt has no questions at this time regarding medications or plan of care. no complaints. assisted patient to bathroom. instructed patient to press call button if questions/concerns/needs arise.
--- NOTE | 2021-11-01 13:48 | HMH.OTEV ---
OT Inpatient Evaluation Rehab OT IP Evaluation Start: 11/01/21 09:25 Freq: ONCE Status: Complete Protocol: Document 11/01/21 13:44 SUNILSONYA (Rec: 11/01/21 13:48 BAO [id number]) Rehab OT IP Assessment Subjective History 55 year old female patient presenting to the emergency department at [facility] for reports of increasing abdominal pain. she reports increased abdominal pain over the last 12 hours with nausea/ vomiting/diarrhea. She does report some dizziness and shortness of air but none since she has been in the hospital. She denies any fevers/chills/body aches. For having a gastric bypass surgery in the early . CT scan that revealed some haziness in the jejunal mesentery consistent with possible mesenteric panniculitis versus edema versus enteritis [facility] History I have reviewed the patient's past medical history: Yes Medical History: Reports:: Anxiety, Asthma, Chronic Obstructive Pulmonary Disease (COPD), Depression, Diabetes Mellitus Type 2, Hyperlipidemia, Hypertension, Kidney Stones, Migraine Subjective I can get up. Patient lives alone, however she has family that has lived with her and plans on staying at her home for the next 2 months. Patient lives in 1 story with 1-2 CAROLINE. Patient independent with ADLs, IADL and transportation prior to admission to hospital. Objective Patient Orientation Person,Place,Name,Birthday, Year Upper Extremity Gross ROM WFL Bed Mobility bed mobility - supine/sit Assist Level Independent Transfer Training Sit/Stand/Pivot Transfer Assist Level Independen
--- NOTE | 2021-11-01 18:08 | PC.NURSE ---
Addendum entered by Rosa Elena Ambriz RN 11/01/21 18:56: patient states that she drank a small sip and played solitaire on her phone between sips; patient states she is having some pain in her abd and nausea - but nothing like before; Will continue to monitor. Original Note: report from Tech patient nauseated and has vomited some of the broth she had been given
[2021-11-01 20:58] LABS: POC Glucose,Bedside 73 (70-110)
[2021-11-01 20:58] LABS: POC Glucose,Bedside 74 (70-110)
[2021-11-02] VITALS (12 sets, daily range): BP systolic 139–162; BP diastolic 68–96; PULSE 60–84; RESP 17–18; TEMP 36.7–37.3; O2SAT 92–99; BMI 49.4
--- NOTE | 2021-11-02 04:25 | PC.NURSE ---
Pt reported severe pain at around 11pm. Pt stated that she has been trying to wait it out but could not take it any longer. Pt did not have any liquids or food to drink this shift. Pt encouraged to walk the halls to help with motility. PT stated that she was getting tired of being here and was upset with her progression and wants to get better and go home.
--- NOTE | 2021-11-02 06:00 | XR_ITS ---
PROCEDURE INFORMATION: Exam: XR Complete Acute Abdomen Series Including Chest Exam date and time: 11/02/2021 5:15 AM Age: 55 years old Clinical indication: Condition or disease; Intestinal condition; Obstruction; Prior surgery; Additional info: Partial proximal sbo; Profound ileus TECHNIQUE: Imaging protocol: Radiologic exam. Complete acute abdomen series, including 2 or more views of the abdomen and a single view chest. COMPARISON: CR XR ACUTE ABDOMEN SERIES 11/01/2021 5:28 AM FINDINGS: Tubes, catheters and devices: NG tube is in good position. Multiple madeleine again noted. Lungs: Normal. No consolidation. Pleural spaces: Normal. No pleural effusions. No pneumothorax. Heart/Mediastinum: Normal. No cardiomegaly. Gastrointestinal tract: Some residual contrast is seen in the colon. Paucity of bowel gas is noted. Intraperitoneal space: Normal. No free air. Bones/joints: Normal. No acute fracture. Soft tissues: Normal. IMPRESSION: Paucity of bowel gas is present. Nonspecific bowel gas pattern
[2021-11-02 07:15] LABS: Basophils % 0.5 % (0.1-2.0); Chloride 105 mmol/L (98-107); Eosinophils % 0.9 % (0.1-12.0); Hematocrit 37.5 % (37.0-47.0); Hemoglobin 12.5 g/dL (12.2-16.2); Lymphocytes # 1.1 K/mm3 (0.7-4.5); Lymphocytes % 30.7 % (10-50); Mean Corpuscular HGB Conc 33.3 g/dL (31.8-35.4); Mean Corpuscular Hemoglobin 29.1 pg (27.0-31.2); Mean Corpuscular Volume 87.4 fl (81-99); Mean Platelet Volume 7.5 fl (7.4-10.4); Monocytes # 0.3 K/mm3 (0.1-1.0); Monocytes % 8.8 % (1.7-9.3); Neutrophils # 2.1 K/mm3 (1.8-7.8); Neutrophils % 59.1 % (37.0-80.0); Platelet Count 293 K/mm3 (142-424); Red Cell Distribution Width 13.4 % (11.5-17.5); Sodium 138 mmol/L (136-145); White Blood Count 3.5 K/mm3 (4.8-10.8)
[2021-11-02 07:18] LABS: Anion Gap 10.7 mEq/L (5-15); Blood Urea Nitrogen 10 mg/dl (7-17); Calcium 8.4 mg/dl (8.4-10.2); Carbon Dioxide 25 mmol/L (22.0-30.0); Creatinine Clearance Estimated 68 mL/min (50-200); Estimated Glomerular Filt Rate 87 ml/min (>60); GFR (African American) 105 ML/MIN (>60); Glucose 90 mg/dl (74-100)
[2021-11-02 07:29] LABS: Potassium 2.7 mmoL/L (3.5-5.1)
--- NOTE | 2021-11-02 08:31 | HMH.GSPN ---
Subjective Narrative: Increased pain and nausea Progress Note: A&P (1) Nausea and vomiting Status: Acute (2) Diarrhea Status: Acute (3) Abdominal pain Status: Acute (4) BMI greater than 40 Status: Acute (5) Type 2 diabetes mellitus with diabetic neuropathy, without long-term current use of insulin Status: Acute (6) Small bowel obstruction Status: Acute Assessment and plan: Likely nonresolved partial proximal obstruction status post remote gastric bypass. Efforts to transfer to a facility with bariatric capabilities have been unsuccessful. If no accepting facility found...plans are to replace nasogastric tube and to perform exploratory laparotomy at this facility later today. (7) Hernia, internal Status: Acute (8) Hypokalemia Status: Acute Exam Vital signs and Labs for Last 24 Hours: Temp Pulse Resp BP Pulse Ox 99.0 F 68 17 142/94 H 99 11/02/21 07:26 11/02/21 07:26 11/02/21 07:26 11/02/21 07:26 11/02/21 07:26 Laboratory Results - last 24 hr 11/01/21 11:10: POC Glucose 74 11/01/21 16:37: POC Glucose 73 11/02/21 06:35: WBC 3.5 L D, RBC 4.30, Hgb 12.5, Hct 37.5, MCV 87.4, MCH 29.1, MCHC 33.3, RDW 13.4, Plt Count 293, MPV 7.5, Neut % (Auto) 59.1, Lymph % (Auto) 30.7, [place] % (Auto) 8.8, Eos % (Auto) 0.9, Baso % (Auto) 0.5, Neut # (Auto) 2.1, Lymph # (Auto) 1.1, [place] # (Auto) 0.3, Eos # (Auto) 0.0, Baso # (Auto) 0.0 11/02/21 06:35: Sodium 138, Potassium 2.7 L*, Chloride 105, Carbon Dioxide 25, Anion Gap 10.7, BUN 10 D, Creatinine 0.70, Estimated Creat Clear 68, Estimated GFR 87, Est GFR ( Amer) 105, Glucose 90 D, Calcium 8.4 I & O for Last 24 hours: Intake & Output 10/30/21 10/31/21 11/01/21 11/02/21 11:59 11:59 11:59 11:59 Intake Total 0 / 0 1920 / 1920 Output Total 1100 / 1400 700 / 950 250 / 250 Balance -1100 / -1400 -700 / -950 -250 / -250 1920 / 1920 Weight 215 lb 13.885 oz 261 lb 6.4 oz 261 lb 6.398 oz - Constitutional no acute distress - *Routine Respiratory Exam Absent: respiratory distress - *Routine Cardiovascular Exam Absent: tachycardia - *Routine Abdominal Exam Present: tenderness
--- NOTE | 2021-11-02 08:37 | PC.NURSE ---
rounded on patient. noted to be very upset upon entering room. stated she wanted to leave right now and to get this needle out of my arm . asked patient about concerns and what we could do to make the situation better. she did state that she was just very discouraged after feeling better then having another rough night. educated patient importance of not leaving in regards to current potassium of 2.7 which was relayed to md after lab called. also asked for her to wait until dr green rounded to see if there was any changes to plan of care for the day. patient was agreeable to talk to md before making any decisions. is very teary eyed. relayed to dr green patient concerns and he rounded on patient.
--- NOTE | 2021-11-02 08:55 | PC.NURSE ---
aware, kpad in use to try and ease pain
--- NOTE | 2021-11-02 10:25 | PC.NURSE ---
Spoke w/ [facility] at this time and no bed still available. Did give an update on pt status.
[2021-11-02 11:38] LABS: POC Glucose,Bedside 76 (70-110)
--- NOTE | 2021-11-02 11:49 | HMH.ACPN2 ---
Internal Medicine - PN: Subj *Date: 11/02/21 *Time: 11:49 Interval history: 55-year-old female patient resting in bed, she reports some increased abdominal pain and nausea this morning. Yesterday her NG tube removed she was given liquids she tolerated that for several hours though had some broth last night and had some nausea with small emesis afterwards. [facility] discussed case with Dr. Baca and updated her on patient's status of increasing pain and nausea. Critical care reports no available beds today or near future. When room is much as possible, she reports she is in fear of andrew COVID and does not want to leave the room. Exam Vital signs and Labs for Last 24 Hours: Temp Pulse Resp BP Pulse Ox 98.9 F 68 17 139/68 94 L 11/02/21 10:53 11/02/21 10:53 11/02/21 10:53 11/02/21 10:53 11/02/21 10:53 Laboratory Results - last 24 hr 11/01/21 11:10: POC Glucose 74 11/01/21 16:37: POC Glucose 73 11/02/21 06:35: WBC 3.5 L D, RBC 4.30, Hgb 12.5, Hct 37.5, MCV 87.4, MCH 29.1, MCHC 33.3, RDW 13.4, Plt Count 293, MPV 7.5, Neut % (Auto) 59.1, Lymph % (Auto) 30.7, [place] % (Auto) 8.8, Eos % (Auto) 0.9, Baso % (Auto) 0.5, Neut # (Auto) 2.1, Lymph # (Auto) 1.1, [place] # (Auto) 0.3, Eos # (Auto) 0.0, Baso # (Auto) 0.0 11/02/21 06:35: Sodium 138, Potassium 2.7 L*, Chloride 105, Carbon Dioxide 25, Anion Gap 10.7, BUN 10 D, Creatinine 0.70, Estimated Creat Clear 68, Estimated GFR 87, Est GFR ( Amer) 105, Glucose 90 D, Calcium 8.4 11/02/21 06:56: POC Glucose 76 I & O for Last 24 hours: Intake & Output 10/30/21 10/31/21 11/01/21 11/02/21 23:59 23:59 23:59 23:59 Intake Total 1919 / 0 0 / 0 Output Total 1600 / 1600 250 / 250 0 / 0 Balance -1600 / -1600 -250 / -250 0 / 1920 0 / 0 Weight 215 lb 13.885 oz 261 lb 6.4 oz 261 lb 6.398 oz - Constitutional no acute distress - *Routine HEENT Exam Head: Present: normocephalic Eye: Present: EOMI ENT: Present: mucous membranes moist - *Routine Neck Exam Present: trachea midline. Absent: tracheal deviation - *Routine Respiratory Exam Present: CTA bilaterally. Absent: accessory muscle use - *Routine Cardiovascular Exam Present: RRR - *Routine Abdominal Exam Present: soft, tenderness. Absent: firm Comments: Hypoactive bowel sounds Epigastric tenderness - *Routine Extremities Exam Present: edema, full ROM, pulses intact. Absent: cyanosis, clubbing - *Routine Skin Exam Present: intact, dry. Absent: cyanosis, erythema - *Routine Neurological Exam Present: alert, oriented X3. Absent: altered mental status - Routine Psychiatric Exam Present: normal affect, normal thought process. Absent: auditory hallucinations Assessment and Plan (1) Nausea and vomiting Status: Acute Category: Medical Code(s): R11.2 - Nausea with vomiting, unspecified (2) Diarrhea Status: Acute Category: Medical Code(s): R19.7 - Diarrhea, unspecified (3) Abdominal pain Status: Acute Qualifiers: Abdominal location: generalized Qualified Code(s): R10.84 - Generalized abdominal pain Category: Medical Code(s): R10.9 - Unspecified abdominal pain (4) BMI greater than 40 Status: Acute Category: Medical (5) Type 2 diabetes mellitus with diabetic neuropathy, without long-term current use of insulin Status: Acute Category: Medical Code(s): E11.40 - Type 2 diabetes mellitus with diabetic neuropathy, unspecified (6) Small bowel obstruction Status: Acute Category: Medical Code(s): K56.609 - Unspecified intestinal obstruction, unspecified as to partial versus complete obstruction (7) Hernia, internal Status: Acute Category: Medical Code(s): K45.8 - Other specified abdominal hernia without obstruction or gangrene (8) Hypokalemia Status: Acute Category: Medical Code(s): E87.6 - Hypokalemia - Assessment and plan all Dx Assessment and Plan for all problems:: Rounded with Dr. Ramirez,
--- NOTE | 2021-11-02 15:32 | DIET.NUTRFU ---
patient has now been NPO x5 days awaiting possible GI sx. She continues to have abdominal pain, oral diet may not be appropriate at this time. Is continue to be NPO x7 days, may need to consider TPN to help meet nutritional needs. There is also a risk for infection when TPN is in place. Currently receiving IVF to help meet hydration needs, also received potassium replacement d/t 2.7 level today. She is waiting on hospital transfer for specialty surgery. RD will continue to follow
--- NOTE | 2021-11-02 16:57 | HMH.DCSUM ---
General - General Admission date:: 10/28/21 Discharge date: 11/02/21 HPI HPI: Female patient presenting to the emergency department at [facility] for reports of increasing abdominal pain. she reports increased abdominal pain over the last 12 hours with nausea/vomiting/diarrhea. She does report some dizziness and shortness of air but none since she has been in the hospital. She denies any fevers/chills/body aches. For having a gastric bypass surgery in the early . CT scan that revealed some haziness in the jejunal mesentery consistent with possible mesenteric panniculitis versus edema versus enteritis Hospital Course Hospital Course: Female patient presenting to the emergency department at [facility] for reports of increasing abdominal pain. she reports increased abdominal pain over the last 12 hours with nausea/vomiting/diarrhea. She does report some dizziness and shortness of air but none since she has been in the hospital. She denies any fevers/chills/body aches. For having a gastric bypass surgery in the early . Evaluation in the emergency department included a CT scan that revealed some haziness in the jejunal mesentery consistent with possible mesenteric panniculitis versus edema versus enteritis. Upper GI with small bowel follow-through pulmonary partial note that read shows collection of contrast in bowel area, small bowel not distended General surgery has seen and recommends: As stated above, minimal movement of contrast noted at the 4-hour libby on small bowel follow-through is worrisome for obstruction. Lack of significant dilatation on CT scan and on small bowel follow-through is more consistent with ileus; however, obstruction cannot be ruled out. In addition, the patient did initially complain of diarrhea; however, she now states that she is not even passing gas . Overall concern for post gastric bypass complication (such as internal hernia with developing obstruction) are now somewhat increased. Recommend transfer to a center where bariatric capabilities exist (this is been discussed with Mateus Mcclelland APRN) NG tube ordered. With the patient's history of gastric bypass, increasing abdominal pain, possible small bowel obstruction, General surgery suggest transfer to higher level of care. Likely nonresolved partial proximal obstruction status post remote gastric bypass. Efforts to transfer to a facility with bariatric capabilities have been unsuccessful. If no accepting facility found...plans are to replace nasogastric tube and to perform exploratory laparotomy at this facility later today. 55-year-old female patient resting in bed quietly she was kept n.p.o. with nasogastric tube for several days, nasogastric tube was clamped for 24 hours patient tolerated without any difficulty. NG tube was removed, liquids were tolerated for lunch without any nausea/vomiting. For dinner patient had some broth about an hour after consuming she became nauseated and vomited with reports of small amount abdominal pain. Next day, today, patient reports increased abdominal pain and nausea. General surgery ordered nasogastric tube to be replaced. Potassium 2.7 today and replenished. General surgery in her room to discuss surgery with patient, she refuses and wishes to go to a facility with a bariatric surgeon. Currently patient is on the waiting list at: [facility] excepted, not able to take due to bed availability, on waiting list [facility] unable to take [facility] excepted, not able to take due to bed availability, on waiting list [facility] unable to take [facility] excepted ,not able to take due to bed availability, on the waiting list [place], [place] unable to take [place], [place] excepted Discussed patient with Dr. Aponte at [place], [place]. He has excepted patient and report given to Janae VAZQUEZ at [facility]
--- NOTE | 2021-11-02 17:35 | PC.NURSE ---
[facility] [place] [facility] called to give an update on bed status. At this time there is still no bed available.
--- NOTE | 2021-11-02 18:22 | PC.NURSE ---
Zbigniew Mcclelland APRN called at 1728 and stated pt would be getting transported to [facility], awaiting further updates/info at this time.
[2021-11-02 21:58] LABS: POC Glucose,Bedside 76 (70-110)
[2021-11-02 21:58] LABS: POC Glucose,Bedside 69 (70-110)
[2021-11-03] VITALS: PULSE 60
--- NOTE | 2021-11-03 00:57 | PC.NURSE ---
Spoke with adrián Madridhousekeeping supervisor at [place] [facility]. Stated to call back around 0510 for additional updates on bed availability. [phone].
--- NOTE | 2021-11-03 03:19 | PC.NURSE ---
[facility] called and stated, We should have a bed for her in the morning . Pt is resting at this time. No complaints stated. BS active. No BM this shift. No other concerns.
[2021-11-03 03:42] VITALS: BP 136/67; PULSE 67; RESP 18; TEMP 36.7; O2SAT 97
[2021-11-03 04:00] VITALS: PULSE 60
[2021-11-03 04:36] VITALS: BMI 48.7
--- NOTE | 2021-11-03 06:00 | XR_ITS ---
PROCEDURE INFORMATION: Exam: XR Complete Acute Abdomen Series Including Chest Exam date and time: 11/03/2021 5:45 AM Age: 55 years old Clinical indication: Condition or disease; Intestinal condition; Obstruction; Prior surgery; Additional info: Partial proximal sbo; Profound ileus TECHNIQUE: Imaging protocol: Radiologic exam. Complete acute abdomen series, including 2 or more views of the abdomen and a single view chest. COMPARISON: CR XR ACUTE ABDOMEN SERIES 11/02/2021 5:15 AM FINDINGS: Lungs: Normal. No consolidation. Pleural spaces: Normal. No pleural effusions. No pneumothorax. Heart/Mediastinum: Normal. No cardiomegaly. Gastrointestinal tract: Few mildly dilated air-filled small bowel loops in the left mid upper abdomen. Residual contrast within collapsed colon. Intraperitoneal space: Right upper quadrant clips. Bones/joints: Proximal left femoral hardware. Soft tissues: Midline skin madeleine. IMPRESSION: 1. Nonspecific mildly dilated small bowel loops in the left mid upper abdomen, perhaps ileus. Clinical and imaging follow-up recommended to exclude evolving obstruction. 2. Other nonacute and postsurgical changes above.
[2021-11-03 06:45] LABS: POC Glucose,Bedside 68 (70-110)
[2021-11-03 07:06] LABS: Basophils % 0.7 % (0.1-2.0); Eosinophils # 0.1 K/mm3 (0.0-0.4); Eosinophils % 2.1 % (0.1-12.0); Hematocrit 36.6 % (37.0-47.0); Hemoglobin 12.7 g/dL (12.2-16.2); Lymphocytes # 1.6 K/mm3 (0.7-4.5); Lymphocytes % 42.2 % (10-50); Mean Corpuscular HGB Conc 34.8 g/dL (31.8-35.4); Mean Corpuscular Volume 86.1 fl (81-99); Mean Platelet Volume 7.5 fl (7.4-10.4); Monocytes # 0.3 K/mm3 (0.1-1.0); Monocytes % 9.4 % (1.7-9.3); Neutrophils # 1.7 K/mm3 (1.8-7.8); Neutrophils % 45.5 % (37.0-80.0); Platelet Count 305 K/mm3 (142-424); Red Blood Count 4.24 M/mm3 (4.20-5.40); Red Cell Distribution Width 13.3 % (11.5-17.5); White Blood Count 3.7 K/mm3 (4.8-10.8)
[2021-11-03 07:09] LABS: Chloride 107 mmol/L (98-107); Potassium 3.6 mmoL/L (3.5-5.1); Sodium 139 mmol/L (136-145)
[2021-11-03 07:12] LABS: Anion Gap 10.6 mEq/L (5-15); Blood Urea Nitrogen 5 mg/dl (7-17); Calcium 8.7 mg/dl (8.4-10.2); Carbon Dioxide 25 mmol/L (22.0-30.0); Creatinine Clearance Estimated 68 mL/min (50-200); Estimated Glomerular Filt Rate 87 ml/min (>60); GFR (African American) 105 ML/MIN (>60); Glucose 79 mg/dl (74-100)
--- NOTE | 2021-11-03 07:13 | P.PN_ITS ---
Subjective Patient reports: feels better Progress Note: A&P (1) Nausea and vomiting Status: Acute (2) Diarrhea Status: Acute (3) Abdominal pain Status: Acute (4) BMI greater than 40 Status: Acute (5) Type 2 diabetes mellitus with diabetic neuropathy, without long-term current use of insulin Status: Acute (6) Small bowel obstruction Status: Acute Assessment and plan: The patient's symptoms continue to wax and wane. Currently she feels better despite lack of nasogastric decompression. Symptomatically and radiographically she has had changes consistent with a partial proximal obstruction status post remote gastric bypass. The patient may ultimately continue to improve without intervention; however, endoscopic or surgical resolution may be required. She is currently scheduled to be transferred to [facility] later today as evaluation at a facility with bariatric experience/capabilities continues to be warranted. (7) Hernia, internal Status: Acute (8) Hypokalemia Status: Acute Exam Vital signs and Labs for Last 24 Hours: Temp Pulse Resp BP Pulse Ox 98.1 F 60 18 136/67 97 11/03/21 03:42 11/03/21 04:00 11/03/21 03:42 11/03/21 03:42 11/03/21 03:42 Laboratory Results - last 24 hr 11/02/21 06:35: WBC 3.5 L D, RBC 4.30, Hgb 12.5, Hct 37.5, MCV 87.4, MCH 29.1, MCHC 33.3, RDW 13.4, Plt Count 293, MPV 7.5, Neut % (Auto) 59.1, Lymph % (Auto) 30.7, [place] % (Auto) 8.8, Eos % (Auto) 0.9, Baso % (Auto) 0.5, Neut # (Auto) 2.1, Lymph # (Auto) 1.1, [place] # (Auto) 0.3, Eos # (Auto) 0.0, Baso # (Auto) 0.0 11/02/21 06:35: Sodium 138, Potassium 2.7 L*, Chloride 105, Carbon Dioxide 25, Anion Gap 10.7, BUN 10 D, Creatinine 0.70, Estimated Creat Clear 68, Estimated GFR 87, Est GFR ( Amer) 105, Glucose 90 D, Calcium 8.4 11/02/21 06:56: POC Glucose 76 11/02/21 20:08: POC Glucose 69 L 11/02/21 21:40: POC Glucose 76 11/03/21 06:37: POC Glucose 68 L 11/03/21 06:45: WBC 3.7 L, RBC 4.24, Hgb 12.7, Hct 36.6 L, MCV 86.1, MCH 30.0, MCHC 34.8, RDW 13.3, Plt Count 305, MPV 7.5, Neut % (Auto) 45.5, Lymph % (Auto) 42.2, [place] % (Auto) 9.4 H, Eos % (Auto) 2.1, Baso % (Auto) 0.7, Neut # (Auto) 1.7 L, Lymph # (Auto) 1.6, [place] # (Auto) 0.3, Eos # (Auto) 0.1, Baso # (Auto) 0.0 I & O for Last 24 hours: Intake & Output 10/31/21 11/01/21 11/02/21 11/03/21 11:59 11:59 11:59 11:59 Intake Total 0 / 0 1920 / 1920 300 / 300 Output Total 700 / 950 250 / 250 Balance -700 / -950 -250 / -250 1920 / 1920 300 / 300 Weight 215 lb 13.885 oz 261 lb 6.4 oz 261 lb 6.398 oz 258 lb 2 oz - Constitutional no acute distress - *Routine Respiratory Exam Absent: respiratory distress - *Routine Abdominal Exam Present: soft
--- NOTE | 2021-11-03 07:34 | PC.NURSE ---
Report called to Ambika at [facility].
[2021-11-03 07:57] VITALS: BP 143/77; PULSE 69; RESP 16; TEMP 36.9; O2SAT 99
--- NOTE | 2021-11-03 10:30 | HMH.ACPN2 ---
Internal Medicine - PN: Subj *Date: 11/03/21 *Time: 10:30 Interval history: 55-year-old female patient resting in bed quietly, she does report generalized abdominal tenderness, admits slight nausea. She will be discharged to [facility] in [place] today bed has been assigned report is been called. Exam Vital signs and Labs for Last 24 Hours: Temp Pulse Resp BP Pulse Ox 98.4 F 69 16 143/77 H 99 11/03/21 07:57 11/03/21 07:57 11/03/21 07:57 11/03/21 07:57 11/03/21 07:57 Laboratory Results - last 24 hr 11/02/21 06:56: POC Glucose 76 11/02/21 20:08: POC Glucose 69 L 11/02/21 21:40: POC Glucose 76 11/03/21 06:37: POC Glucose 68 L 11/03/21 06:45: WBC 3.7 L, RBC 4.24, Hgb 12.7, Hct 36.6 L, MCV 86.1, MCH 30.0, MCHC 34.8, RDW 13.3, Plt Count 305, MPV 7.5, Neut % (Auto) 45.5, Lymph % (Auto) 42.2, [place] % (Auto) 9.4 H, Eos % (Auto) 2.1, Baso % (Auto) 0.7, Neut # (Auto) 1.7 L, Lymph # (Auto) 1.6, [place] # (Auto) 0.3, Eos # (Auto) 0.1, Baso # (Auto) 0.0 11/03/21 06:45: Sodium 139, Potassium 3.6 D, Chloride 107, Carbon Dioxide 25, Anion Gap 10.6, BUN 5 L D, Creatinine 0.70, Estimated Creat Clear 68, Estimated GFR 87, Est GFR ( Amer) 105, Glucose 79, Calcium 8.7 I & O for Last 24 hours: Intake & Output 10/31/21 11/01/21 11/02/21 11/03/21 23:59 23:59 23:59 23:59 Intake Total 1919 / 1919 300 / 300 Output Total 250 / 250 0 / 0 Balance -250 / -250 1919 / 1919 300 / 300 Weight 215 lb 13.885 oz 261 lb 6.4 oz 261 lb 6.398 oz 258 lb 2 oz - Constitutional no acute distress - *Routine HEENT Exam Head: Present: normocephalic Eye: Present: EOMI ENT: Present: mucous membranes moist - *Routine Neck Exam Present: trachea midline (Mateus). Absent: tracheal deviation - *Routine Respiratory Exam Present: CTA bilaterally. Absent: accessory muscle use - *Routine Cardiovascular Exam Present: RRR - *Routine Abdominal Exam Present: soft, tenderness, obese. Absent: normoactive bowel sounds, firm Comments: Bowel sounds hypoactive Generalized tenderness in abdomen - *Routine Extremities Exam Present: edema, full ROM, pulses intact. Absent: cyanosis, clubbing - *Routine Skin Exam Present: intact, dry. Absent: cyanosis, erythema - *Routine Neurological Exam Present: alert, oriented X3. Absent: motor deficit - Routine Psychiatric Exam Present: normal affect, normal thought process, cooperative Assessment and Plan (1) Nausea and vomiting Status: Acute Category: Medical Code(s): R11.2 - Nausea with vomiting, unspecified (2) Diarrhea Status: Acute Category: Medical Code(s): R19.7 - Diarrhea, unspecified (3) Abdominal pain Status: Acute Qualifiers: Abdominal location: generalized Qualified Code(s): R10.84 - Generalized abdominal pain Category: Medical Code(s): R10.9 - Unspecified abdominal pain (4) BMI greater than 40 Status: Acute Category: Medical (5) Type 2 diabetes mellitus with diabetic neuropathy, without long-term current use of insulin Status: Acute Category: Medical Code(s): E11.40 - Type 2 diabetes mellitus with diabetic neuropathy, unspecified (6) Small bowel obstruction Status: Acute Category: Medical Code(s): K56.609 - Unspecified intestinal obstruction, unspecified as to partial versus complete obstruction (7) Hernia, internal Status: Acute Category: Medical Code(s): K45.8 - Other specified abdominal hernia without obstruction or gangrene (8) Hypokalemia Status: Acute Category: Medical Code(s): E87.6 - Hypokalemia - Assessment and plan all Dx Assessment and Plan for all problems:: Rounded with Dr. Lennon, all orders per Dr. Lennon: 1. Discharge to [facility] in [place]
== END 2021-11-03 09:25 | disposition short-term general hospital (02) | DRG 394 ==
LOC: ER 19:41 → 2ND 21:40
PROVIDERS: Family Medicine; Nurse Practitioner Family; Admitting Provider Emergency Medicine; Emergency Provider Emergency Medicine; PCP Family Medicine; Visit Provider Emergency Medicine
DX: K95.89 Other complications of other bariatric procedure (principal); K56.690 Other partial intestinal obstruction; Z68.42 Body mass index [BMI] 45.0-49.9, adult; K56.609 Unspecified intestinal obstruction, unspecified as to partial versus complete obstruction; E66.01 Morbid (severe) obesity due to excess calories; F41.9 Anxiety disorder, unspecified; F32.A Depression, unspecified; E78.5 Hyperlipidemia, unspecified; I10 Essential (primary) hypertension; F17.210 Nicotine dependence, cigarettes, uncomplicated; F17.290 Nicotine dependence, other tobacco product, uncomplicated; E11.40 Type 2 diabetes mellitus with diabetic neuropathy, unspecified; E87.6 Hypokalemia; K45.8 Other specified abdominal hernia without obstruction or gangrene; J44.9 Chronic obstructive pulmonary disease, unspecified
CPT/HCPCS: 36415; 71045; 74019; 74021; 74177; 74250; 80048; 80053; 80061; 81001; 82962; 83690; 84484; 85007; 85025; 93005; 97161; 97165; 99285; C9803; G0378; J2405; Q9967; U0003; U0005

== ENCOUNTER 2022-01-25 19:22 | Emergency (ER) | payer MEDICARE, SELFPAY ==
[2022-01-25 19:24] VITALS: BP 99/66; PULSE 87; RESP 16; TEMP 37; O2SAT 97; BMI 35.9
--- NOTE | 2022-01-25 20:28 | CT_ITS ---
PROCEDURE INFORMATION: Exam: CT Abdomen And Pelvis With Contrast Exam date and time: 01/25/2022 9:20 PM Age: 56 years old Clinical indication: Abdominal pain; Prior surgery; Surgery type: Cholecystectomy, gastric bypass, hernia repair; Additional info: Abd pain, HX of sbo TECHNIQUE: Imaging protocol: Computed tomography of the abdomen and pelvis with contrast. Radiation optimization: All CT scans at this facility use at least one of these dose optimization techniques: automated exposure control; mA and/or kV adjustment per patient size (includes targeted exams where dose is matched to clinical indication); or iterative reconstruction. Contrast material: ISOVUE; Contrast volume: 75 ml; Contrast route: IV; COMPARISON: CT ABDOMEN PELVIS W CON 10/27/2021 7:47 PM FINDINGS: Lungs: Calcified granuloma noted in the right middle lobe, otherwise clear lung bases. Pleural spaces: No pleural fluid. Heart: Normal heart size. Liver: Normal configuration. Homogeneous parenchyma. Gallbladder and bile ducts: Exam demonstrates features of prior cholecystectomy. No biliary tree dilation or high-density retained stones appreciated. Pancreas: Normal. No ductal dilation. Spleen: Scattered splenic calcifications are noted. Adrenal glands: Normal configuration. Kidneys and ureters: Exophytic indeterminate nodule projects laterally from the right mid kidney, unchanged from prior exam. Stomach and bowel: Changes of prior gastric bypass procedure with retrocolic Eulogio-en-Y reconstruction. Normal caliber small bowel. Normal colon. Appendix: Normal appendix is confirmed. Intraperitoneal space: Small calcification noted in the peritoneal fat ventral to the liver, unchanged from prior. Vasculature: Normal caliber arterial structures. Lymph nodes: No enlarged lymph nodes. Urinary bladder: Unremarkable as visualized. Reproductive: Features of prior hysterectomy noted. No evidence of vaginal cuff or adnexal mass. Bones/joints: No fracture or destructive lesion. Soft tissues: Unremarkable. IMPRESSION: No acute abnormality identified to explain patient's abdomen pain. In particular, there is no evidence of bowel obstruction or urolithiasis. A normal appendix is confirmed.
[2022-01-25 20:31] VITALS: BP 98/55; PULSE 78; O2SAT 95
[2022-01-25 20:37] LABS: Microscopic, Urine URINE MICROSCOPIC (MICROSCOPIC)
[2022-01-25 20:41] LABS: Basophils # 0.2 K/mm3 (0-0.2); Basophils % 1.6 % (0.1-2.0); Eosinophils # 0.1 K/mm3 (0.0-0.4); Eosinophils % 0.9 % (0.1-12.0); Hemoglobin 14.8 g/dL (12.2-16.2); Lymphocytes # 3.6 K/mm3 (0.7-4.5); Lymphocytes % 32.2 % (10-50); Mean Corpuscular HGB Conc 32.2 g/dL (31.8-35.4); Mean Corpuscular Volume 93.2 fl (81-99); Mean Platelet Volume 8.3 fl (7.4-10.4); Monocytes # 0.6 K/mm3 (0.1-1.0); Neutrophils # 6.7 K/mm3 (1.8-7.8); Neutrophils % 60.2 % (37.0-80.0); Platelet Count 423 K/mm3 (142-424); Red Blood Count 4.94 M/mm3 (4.20-5.40); Red Cell Distribution Width 14.2 % (11.5-17.5); White Blood Count 11.1 K/mm3 (4.8-10.8)
[2022-01-25 20:43] LABS: Appearance,Urine CLEAR (Clear); Bilirubin,Urine Negative (Negative); Blood, Urine TRACE-I (Negative); Color,Urine YELLOW (Yellow); Glucose,Urine (UA) Negative (Negative); Ketones,Urine Negative (Negative); Leukocyte Esterase,Urine 1+ (Negative); Nitrate,Urine Negative (Negative); Protein,Urine Negative (Negative); Urobilinogen,Urine 0.2 EU/dl (0.2)
[2022-01-25 20:44] VITALS: BP 115/71; PULSE 72; O2SAT 92
[2022-01-25 20:44] LABS: Alanine Aminotransferase 44 U/L (12-78); Albumin Level 4.4 g/dl (3.5-5.0); Albumin/Globulin Ratio 1.3 (1.1-1.8); Alkaline Phosphatase 128 U/L (38-126); Amylase 76 U/L (30-110); Anion Gap 17.6 mEq/L (5-15); Aspartate Amino Transferase 65 U/L (14-36); Bilirubin,Total 0.8 mg/dl (0.2-1.3); Blood Urea Nitrogen 19 mg/dl (7-17); Calcium 9.3 mg/dl (8.4-10.2); Carbon Dioxide 26 mmol/L (22.0-30.0); Chloride 100 mmol/L (98-107); Creatinine Clearance Estimated 111 mL/min (50-200); Estimated Glomerular Filt Rate 57 ml/min (>60); GFR (African American) 69 ML/MIN (>60); Globulin 3.3 g/dL (1.3-3.2); Glucose 105 mg/dl (74-100); Lipase 60 U/L (23-300); Potassium 3.6 mmoL/L (3.5-5.1); Sodium 140 mmol/L (136-145); Total Protein,Serum 7.7 g/dl (6.3-8.2)
[2022-01-25 20:49] LABS: C-Reactive Protein 17.6 mg/L (0-4)
[2022-01-25 21:01] VITALS: BP 112/83; PULSE 71; O2SAT 94
[2022-01-25 21:02] LABS: Bacteria,Urine Trace /lpf; RBC,Urine Occasional #/hpf (0-3)
[2022-01-25 21:03] LABS: Procalcitonin 0.093 ng/mL (0.0-2.0)
--- NOTE | 2022-01-25 21:06 | PC.NURSE ---
Pt updated on POC and expected wait times. Pillow given for comfort. No other needs or complaints voiced.
--- NOTE | 2022-01-25 21:22 | PC.NURSE ---
Pt gone to RAD
[2022-01-25 22:01] LABS: Erythrocyte Sedimentation Rate 19 mm/hr (0-30)
[2022-01-25 23:19] VITALS: BP 89/54; PULSE 59; O2SAT 93
--- NOTE | 2022-01-25 23:26 | PC.NURSE ---
Pt updated on POC. No needs or complaints voiced.
[2022-01-25 23:30] VITALS: BP 85/53; PULSE 62; O2SAT 92
--- NOTE | 2022-01-25 23:56 | HMH.EDABDPAI ---
Discharge Plan Disposition Patient Disposition: Home, Self-Care Prescriptions Prescriptions: New levofloxacin 500 mg tablet 500 mg PO DAILY Qty: 7 0RF No Action triamcinolone acetonide 0.1 % lotion 1 ml TOPICAL NEEDED PRN (Reason: PSORIAS) Label Comments: APPLY A SMALL AMOUNT ON COTTON BALL AND APPLY TO SKIN OF EAR CANAL TWICE DAILY. diclofenac sodium 1 % gel 4 g TOPICAL QID PRN (Reason: pain ) 30 Days Qty: 100 2RF Rx Instructions: apply to single, ankle, foot; for foot includes sole/toes/top of foot loratadine 10 mg tablet 10 mg PO DAILY Label Comments: TAKE 1 TABLET BY MOUTH ONCE DAILY losartan 100 mg tablet 100 mg PO DAILY fluticasone propion-salmeterol 250-50 mcg/dose blister with device 1 each INHALATION BID albuterol sulfate 1.25 MG/3 ML solution for nebulization 1.25 mg IH DAILYP PRN (Reason: asthma / copd) ibuprofen 800 MG tablet 800 mg PO Q8HP PRN (Reason: Moderate Pain) sitagliptin 100 MG tablet 100 mg PO DAILYDM risankizumab-rzaa 150 MG/ML pen injector 150 mg SQ DIRECTED Rx Instructions: takes every 12 weeks pantoprazole 20 MG tablet,delayed release (DR/EC) 20 mg PO BID linaclotide 72 MCG capsule 72 mcg PO DAILY fluoxetine 40 MG capsule 40 mg PO BID bupropion HCl 150 MG tablet 150 mg PO BID simvastatin 5 MG tablet 5 mg PO HS levothyroxine 125 MCG tablet 125 mcg PO DAILYDM pregabalin 150 MG capsule 150 mg PO BID albuterol sulfate 18 GM HFA aerosol inhaler 2 puffs IH Q6HP PRN (Reason: Shortness Of Breath Or Wheezing) Qty: 1 0RF montelukast 10 MG tablet 10 mg PO PM Referrals Follow up/Referrals: Salima Gonzáles [Primary Care Provider] - See instructions Clinical Impressions Clinical Impression: Abdominal pain, UTI (urinary tract infection) Instructions Patient Instructions: DI for Acute Abdominal Pain Discharge ED Provider: Mathew Ramirez Abdominal Pain HPI General Chief Complaint: Abdominal Pain Stated Complaint: BACK AND ABD PAIN Time Seen by Provider: 01/25/22 23:57 Mode of Arrival: Ambulatory Source of Information: Patient and Medical Record Limitations: No Limitations Description of Symptoms (Recalled from ER Triage Doc. by RN): pt c/o RLQ pain that started yesterdat with nauesa but denies v/d History of Present Illness HPI narrative: rt sided lower abd pain and rt flank pain which started yesterday - no fever/rash or trauma and no gu sx complaint: abdominal pain Onset (ago): day(s) Consistency: intermittent Location: RLQ Severity: moderate Quality: aching Radiation: R flank Associated symptoms: denies other symptoms Related Data Home Medications Medication Instructions Recorded Confirmed bupropion HCl 150 mg tablet,12 hr 150 mg PO BID Depression 08/11/18 10/28/21 sustained-release fluoxetine 40 mg capsule 40 mg PO BID Depression 08/11/18 10/28/21 levothyroxine 125 mcg tablet 125 mcg PO DAILYDM hypothyroidism 08/11/18 10/28/21 pregabalin 150 mg capsule 150 mg PO BID neuropathy 08/11/18 10/28/21 simvastatin 5 mg tablet 5 mg PO HS Cholesterol 08/11/18 10/28/21 triamcinolone acetonide 0.1 % 1 ml TOPICAL NEEDED PRN PSORIAS 10/20/19 10/28/21 lotion loratadine 10 mg tablet 10 mg PO DAILY Allergy symptoms 01/08/20 10/28/21 losartan 100 mg tablet 100 mg PO DAILY High blood pressure 01/08/20 10/28/21 fluticasone 250 mcg-salmeterol 50 1 each INHALATION BID 03/11/20 10/28/21 mcg/dose blistr powdr for ASTHMA/ALLERGY inhalation montelukast 10 mg tablet 10 mg PO PM Allergy symptoms 10/10/20 10/28/21 albuterol sulfate 1.25 mg/3 mL 1.25 mg IH DAILYP PRN asthma / copd 04/08/21 10/28/21 solution for nebulization ibuprofen 800 mg tablet 800 mg PO Q8HP PRN Moderate Pain 04/08/21 10/28/21 sitagliptin 100 mg tablet 100 mg PO DAILYDM Diabetes 04/08/21 10/28/21 linaclotide 72 mcg capsule 72 mcg PO DAILY constipation 10/28/21 06
[2022-01-26 00:19] VITALS: BP 112/74; PULSE 62; RESP 16; TEMP 37; O2SAT 94
== END 2022-01-26 00:32 | disposition home or self-care (01) ==
PROVIDERS: Emergency Provider Emergency Medicine; PCP Family Medicine
DX: N39.0 Urinary tract infection, site not specified (principal)
CPT/HCPCS: 74177; 80053; 81001; 82150; 83690; 84145; 85025; 85651; 86140; 87086; 96374; 96375; 99284; J2405; Q9967

== ENCOUNTER → 2022-02-08 09:26 | Outpatient (CLI) | payer MEDICARE, SELFPAY ==
--- NOTE | 2022-02-08 09:31 | XR_ITS ---
FINAL REPORT CLINICAL HISTORY: foot pain COMPARISON: 11/11/2020 FINDINGS: Left foot Three views were obtained. There is no acute fracture or dislocation. Small calcaneal spurs are identified. There are mild degenerative changes. No soft tissue abnormality is identified. IMPRESSION: No acute process. Reviewed, Interpreted and Dictated by Neri Mireles III, MD Transcribed by Makenna Covarrubias Authenticated and [facility]
== END ==
PROVIDERS: PCP Family Medicine; Visit Provider Nurse Practitioner Family
DX: M79.672 Pain in left foot (principal)
CPT/HCPCS: 73630

== ENCOUNTER 2022-03-05 08:32 | Emergency (ER) | payer MEDICARE, SELFPAY ==
[2022-03-05 08:40] VITALS: BP 117/76; PULSE 75; RESP 23; TEMP 36.7; O2SAT 96; BMI 47.7
[2022-03-05 08:58] LABS: UTC Strep Screen (Rapid) Positive (Negative)
[2022-03-05 09:01] VITALS: BP 117/76; PULSE 75; RESP 23; TEMP 36.7; O2SAT 96
--- NOTE | 2022-03-05 09:06 | EXP.UTC ---
Discharge Plan Disposition Patient Disposition: Home, Self-Care Condition: Good Prescriptions Prescriptions: New amoxicillin [amoxicillin] 500 mg tablet 500 mg PO BID 10 Days Qty: 20 0RF No Action triamcinolone acetonide 0.1 % lotion 1 ml topical NEEDED PRN (Reason: PSORIAS) Label Comments: APPLY A SMALL AMOUNT ON COTTON BALL AND APPLY TO SKIN OF EAR CANAL TWICE DAILY. diclofenac sodium 1 % gel 4 g topical QID PRN (Reason: pain ) 30 Days Qty: 100 2RF Rx Instructions: apply to single, ankle, foot; for foot includes sole/toes/top of foot loratadine 10 mg tablet 10 mg PO DAILY Label Comments: TAKE 1 TABLET BY MOUTH ONCE DAILY losartan 100 mg tablet 100 mg PO DAILY fluticasone propion-salmeterol 250-50 mcg/dose blister with device 1 each inhalation BID albuterol sulfate 1.25 MG/3 ML solution for nebulization 1.25 mg inhalation DAILYP PRN (Reason: asthma / copd) ibuprofen 800 MG tablet 800 mg PO Q8HP PRN (Reason: Moderate Pain) sitagliptin 100 MG tablet 100 mg PO DAILYDM risankizumab-rzaa 150 MG/ML pen injector 150 mg SQ DIRECTED Rx Instructions: takes every 12 weeks pantoprazole 20 MG tablet,delayed release (DR/EC) 20 mg PO BID linaclotide 72 MCG capsule 72 mcg PO DAILY fluoxetine 40 MG capsule 40 mg PO BID bupropion HCl 150 MG tablet 150 mg PO BID simvastatin 5 MG tablet 5 mg PO HS levothyroxine 125 MCG tablet 125 mcg PO DAILYDM pregabalin 150 MG capsule 150 mg PO BID albuterol sulfate 18 GM HFA aerosol inhaler 2 puffs inhalation Q6HP PRN (Reason: Shortness Of Breath Or Wheezing) Qty: 1 0RF montelukast 10 MG tablet 10 mg PO PM Referrals Follow up/Referrals: Salima Gonzáles [Primary Care Provider] - See instructions Activity Restrictions/Add. Instructions Additional Instructions/Restrictions: Start antibiotics today be sure to take it as ordered with the full length of time although you should start feeling better in 24-48 hours. Change toothbrush and toothpaste 24-48 hours after starting antibiotics Tylenol or Motrin as needed for fever or pain Encourage fluids, water, Gatorade, Powerade, try cold fluids, popsicles, ice cream will make it feel better You are contagious for 24 hours. Avoid kissing anyone, no eating or drinking after anyone. You are contagious. Follow-up the ER for new or worsening symptoms or no noticeable improvement over the next 24-48 hours. Follow-up with PCP this week. Clinical Impressions Clinical Impression: Strep sore throat Instructions Patient Instructions: DI for Strep Throat Discharge ED Provider: Juan ([facility])Raya [facility] HPI General Stated complaint: sore throat, ear pain, cough Mode of Arrival: Ambulatory Source of Information: Patient Limitations: No Limitations Time Seen by Provider: 03/05/22 09:06 Description of Symptoms (Recalled from Triage Doc. by RN): PATIENT C/O SORE THROAT, HEADACHE, SINUS DRAINAGE, AND COUGH SINCE YESTERDAY. RECENTLY EXPOSED TO STREP HEENT Symptoms (Recalled from RN notes): Yes Resp Symptoms (Recalled from RN notes): Yes Skin Symptoms (Recalled from RN notes): No MS Symptoms (Recalled from RN notes): No Functional Status (Recalled from RN notes): WNL History of Present Illness Provider Complaint: 56 yr old female presents for sore throat, cough, headache and sinus drainage since yesterday. has been exposed to strep Related Data Home Medications Medication Instructions Recorded Confirmed bupropion HCl 150 mg tablet,12 hr 150 mg PO BID Depression 08/11/18 02/08/22 sustained-release fluoxetine 40 mg capsule 40 mg PO BID Depression 08/11/18 02/08/22 levothyroxine 125 mcg tablet 125 mcg PO DAILYDM hypothyroidism 08/11/18 02/08/22 pregabalin 150 mg capsule 150 mg PO BID neuropathy 08/11/18 02/08/22 simvastatin 5 mg tablet 5 mg PO HS Cholesterol 08/11/18 02/08/22 triamcinolone acetonide
== END 2022-03-05 09:14 | disposition home or self-care (01) ==
PROVIDERS: Emergency Provider Nurse Practitioner Family; PCP Family Medicine
DX: J02.0 Streptococcal pharyngitis (principal)
CPT/HCPCS: 87880; 99212; G0463

== ENCOUNTER 2022-04-14 17:24 | Emergency (ER) | payer MEDICARE, SELFPAY ==
[2022-04-14 18:48] VITALS: BP 121/72; PULSE 80; RESP 18; TEMP 36.5; O2SAT 97; BMI 47.2
[2022-04-14 19:08] LABS: Adenovirus,PCR Not Detected (NotDetected); Bordetella Pertussis Not Detected (NotDetected); Chlamydophila Pneumoniae, PCR Not Detected (NotDetected); Coronavirus 19, PCR Not Detected (NotDetected); Coronavirus 229E Not Detected (NotDetected); Coronavirus NL63 Not Detected (NotDetected); Coronavirus OC43 Not Detected (NotDetected); Coronovirus HKU1,PCR Not Detected (NotDetected); Human Metapneumovirus Not Detected (NotDetected); Influenza A, PCR Not Detected (NotDetected); Influenza AH1, 2009 Not Detected (NotDetected); Influenza AH1, PCR Not Detected (NotDetected); Influenza AH3,PCR Not Detected (NotDetected); Influenza B, PCR Not Detected (NotDetected); Mycoplasma Pneumoniae, PCR Not Detected (NotDetected); Parainfluenza 1, PCR Not Detected (NotDetected); Parainfluenza 2, PCR Not Detected (NotDetected); Parainfluenza 3, PCR Not Detected (NotDetected); Parainfluenza 4, PCR Not Detected (NotDetected); Respiratory Syncytial Virus Not Detected (NotDetected); Rhinovirus/Enterovirus Not Detected (NotDetected)
--- NOTE | 2022-04-14 19:11 | EXP.UTC ---
Discharge Plan Disposition Patient Disposition: Home, Self-Care Condition: Good Prescriptions Prescriptions: New oseltamivir [Tamiflu] 75 mg capsule 75 mg PO BID Qty: 10 0RF nystatin 100,000 unit/gram ointment 1 applic topical BID 14 Days Qty: 30 2RF fluconazole [Diflucan] 100 mg tablet 100 mg PO DAILY 3 Days Qty: 3 1RF benzonatate [benzonatate] 100 mg capsule 100 mg PO TIDP PRN (Reason: Cough) Qty: 30 0RF azithromycin [Zithromax] 250 mg tablet 250 mg PO UD DOSE PK Qty: 6 0RF Rx Instructions: Take two (2) tablets today, then one (1) tablet days #2 thru #5 ofloxacin 0.3 % drops See Rx Instructions .ROUTE .COMPLEX Qty: 5 0RF Rx Instructions: put 2 drps into affected eye(s) every 2 h x 2 days, then 1 drp 4 times/day days 3-7 No Action triamcinolone acetonide 0.1 % lotion 1 ml topical NEEDED PRN (Reason: PSORIAS) Label Comments: APPLY A SMALL AMOUNT ON COTTON BALL AND APPLY TO SKIN OF EAR CANAL TWICE DAILY. diclofenac sodium 1 % gel 4 g topical QID PRN (Reason: pain ) 30 Days Qty: 100 2RF Rx Instructions: apply to single, ankle, foot; for foot includes sole/toes/top of foot loratadine 10 mg tablet 10 mg PO DAILY Label Comments: TAKE 1 TABLET BY MOUTH ONCE DAILY losartan 100 mg tablet 100 mg PO DAILY fluticasone propion-salmeterol 250-50 mcg/dose blister with device 1 each inhalation BID albuterol sulfate 1.25 MG/3 ML solution for nebulization 1.25 mg inhalation DAILYP PRN (Reason: asthma / copd) ibuprofen 800 MG tablet 800 mg PO Q8HP PRN (Reason: Moderate Pain) sitagliptin phosphate 100 MG tablet 100 mg PO DAILYDM risankizumab-rzaa 150 MG/ML pen injector 150 mg SQ DIRECTED Rx Instructions: takes every 12 weeks pantoprazole 20 MG tablet,delayed release (DR/EC) 20 mg PO BID linaclotide 72 MCG capsule 72 mcg PO DAILY fluoxetine 40 MG capsule 40 mg PO BID bupropion HCl 150 MG tablet 150 mg PO BID simvastatin 5 MG tablet 5 mg PO HS levothyroxine 125 MCG tablet 125 mcg PO DAILYDM pregabalin 150 MG capsule 150 mg PO BID albuterol sulfate 18 GM HFA aerosol inhaler 2 puffs inhalation Q6HP PRN (Reason: Shortness Of Breath Or Wheezing) Qty: 1 0RF montelukast 10 MG tablet 10 mg PO PM amoxicillin [amoxicillin] 500 mg tablet 500 mg PO BID 10 Days Qty: 20 0RF Referrals Follow up/Referrals: Salima Gonzáles [Primary Care Provider] - See instructions Activity Restrictions/Add. Instructions Additional Instructions/Restrictions: Drink plenty of fluids. Take tylenol or ibuprofen for pain or fever. Take the medications as directed. Follow up with your regular doctor. GO TO THE ER FOR ANY WORSENING SYMPTOMS Clinical Impressions Clinical Impression: Acute viral syndrome, Diabetes Conjunctivitis Qualifiers: Conjunctivitis type: acute Acute conjunctivitis type: bacterial Laterality: right Qualified Code(s): H10.31 - Unspecified acute conjunctivitis, right eye Instructions Patient Instructions: DI for Sinusitis, Fluconazole, Oseltamivir Discharge ED Provider: Marco Antonio Valadez [facility] General Stated complaint: KRUSE Congestion. R eye Mode of Arrival: Ambulatory Source of Information: Patient Limitations: No Limitations Time Seen by Provider: 04/14/22 19:11 Description of Symptoms (Recalled from Triage Doc. by RN): . HEENT Symptoms (Recalled from RN notes): Yes Resp Symptoms (Recalled from RN notes): Yes Skin Symptoms (Recalled from RN notes): No MS Symptoms (Recalled from RN notes): No Functional Status (Recalled from RN notes): n/a History of Present Illness Provider Complaint: She comes in today with headache, nasal drainage,yeast under breasts and in abdominal folds that began yesterday. and right eye swelling and redness that began today Related Data Home Medications Medication Instructions Recorded C
[2022-04-14 19:59] VITALS: BP 121/72; PULSE 80; RESP 18; TEMP 36.5
== END 2022-04-14 20:02 | disposition home or self-care (01) ==
PROVIDERS: Emergency Provider Nurse Practitioner Family; PCP Family Medicine
DX: H10.31 Unspecified acute conjunctivitis, right eye (principal); E11.9 Type 2 diabetes mellitus without complications
CPT/HCPCS: 87581; 87632; 87798; 99212; C9803; G0463; U0003; U0005

== ENCOUNTER 2022-08-16 08:31 | Emergency (ER) | payer MEDICARE, SELFPAY ==
[2022-08-16 08:40] VITALS: BP 107/62; PULSE 82; RESP 18; TEMP 36.6; O2SAT 96; BMI 47.2
--- NOTE | 2022-08-16 08:43 | EXP.UTC ---
Discharge Plan Disposition Patient Disposition: Home, Self-Care Condition: Good Prescriptions Prescriptions: New amoxicillin [amoxicillin] 875 mg tablet 875 mg PO Q12H Qty: 20 0RF benzonatate [benzonatate] 100 mg capsule 100 mg PO TIDP PRN (Reason: Cough) Qty: 30 0RF methylprednisolone 4 mg Tablets,Dose Pack 4 mg PO DIRECTED Qty: 21 0RF albuterol sulfate [Ventolin HFA] 90 mcg/actuation HFA aerosol inhaler 2 puff inhalation Q6H PRN (Reason: shortness of breath or wheezing) Qty: 6.7 5RF No Action triamcinolone acetonide 0.1 % lotion 1 ml topical NEEDED PRN (Reason: PSORIAS) Label Comments: APPLY A SMALL AMOUNT ON COTTON BALL AND APPLY TO SKIN OF EAR CANAL TWICE DAILY. diclofenac sodium 1 % gel 4 g topical QID PRN (Reason: pain ) 30 Days Qty: 100 2RF Rx Instructions: apply to single, ankle, foot; for foot includes sole/toes/top of foot loratadine 10 mg tablet 10 mg PO DAILY Label Comments: TAKE 1 TABLET BY MOUTH ONCE DAILY losartan 100 mg tablet 100 mg PO DAILY fluticasone propion-salmeterol 250-50 mcg/dose blister with device 1 each inhalation BID albuterol sulfate 1.25 MG/3 ML solution for nebulization 1.25 mg inhalation DAILYP PRN (Reason: asthma / copd) ibuprofen 800 MG tablet 800 mg PO Q8HP PRN (Reason: Moderate Pain) sitagliptin phosphate 100 MG tablet 100 mg PO DAILYDM risankizumab-rzaa 150 MG/ML pen injector 150 mg SQ DIRECTED Rx Instructions: takes every 12 weeks pantoprazole 20 MG tablet,delayed release (DR/EC) 20 mg PO BID linaclotide 72 MCG capsule 72 mcg PO DAILY oseltamivir [Tamiflu] 75 mg capsule 75 mg PO BID Qty: 10 0RF nystatin 100,000 unit/gram ointment 1 applic topical BID 14 Days Qty: 30 2RF fluconazole [Diflucan] 100 mg tablet 100 mg PO DAILY 3 Days Qty: 3 1RF benzonatate [benzonatate] 100 mg capsule 100 mg PO TIDP PRN (Reason: Cough) Qty: 30 0RF azithromycin [Zithromax] 250 mg tablet 250 mg PO UD DOSE PK Qty: 6 0RF Rx Instructions: Take two (2) tablets today, then one (1) tablet days #2 thru #5 ofloxacin 0.3 % drops See Rx Instructions .ROUTE .COMPLEX Qty: 5 0RF Rx Instructions: put 2 drps into affected eye(s) every 2 h x 2 days, then 1 drp 4 times/day days 3-7 fluoxetine 40 MG capsule 40 mg PO BID bupropion HCl 150 MG tablet 150 mg PO BID simvastatin 5 MG tablet 5 mg PO HS levothyroxine 125 MCG tablet 125 mcg PO DAILYDM pregabalin 150 MG capsule 150 mg PO BID albuterol sulfate 18 GM HFA aerosol inhaler 2 puffs inhalation Q6HP PRN (Reason: Shortness Of Breath Or Wheezing) Qty: 1 0RF montelukast 10 MG tablet 10 mg PO PM amoxicillin [amoxicillin] 500 mg tablet 500 mg PO BID 10 Days Qty: 20 0RF Referrals Follow up/Referrals: Salima Gonzáles [Primary Care Provider] - See instructions Activity Restrictions/Add. Instructions Additional Instructions/Restrictions: Drink plenty of fluids. Take tylenol or ibuprofen for pain or fever. Take the medications as directed. Follow up with your regular doctor. GO TO THE ER FOR ANY WORSENING SYMPTOMS Clinical Impressions Clinical Impression: Bronchitis, Acute viral syndrome, Sinusitis Stand Alone Forms Stand Alone Forms: Work/School Release Instructions Patient Instructions: Sinusitis, DI for Sinusitis, DI for Viral Syndrome Discharge ED Provider: Marco Antonio Valadez [facility] [place] H[place] General Stated complaint: Sore throat, drainage, congestion Time Seen by Provider: 08/16/22 08:43 History of Present Illness Provider Complaint: She states that for the past 2 days she has had sore throat, chills, body aches and low grade fever. Related Data Home Medications Medication Instructions Recorded Confirmed bupropion HCl 150 mg tablet,12 hr 150 mg PO BID Depression 08/11/18 02/08/22 sustained-release fluoxetine
[2022-08-16 08:52] LABS: UTC Strep Screen (Rapid) Negative (Negative)
[2022-08-16 08:57] VITALS: BP 107/62; PULSE 82; RESP 18; TEMP 36.6; O2SAT 96
[2022-08-17 09:00] LABS: Adenovirus,PCR Not Detected (NotDetected); Bordetella Pertussis Not Detected (NotDetected); Chlamydophila Pneumoniae, PCR Not Detected (NotDetected); Coronavirus 19, PCR Not Detected (NotDetected); Coronavirus 229E Not Detected (NotDetected); Coronavirus NL63 Not Detected (NotDetected); Coronavirus OC43 Not Detected (NotDetected); Coronovirus HKU1,PCR Not Detected (NotDetected); Human Metapneumovirus Not Detected (NotDetected); Influenza A, PCR Not Detected (NotDetected); Influenza AH1, 2009 Not Detected (NotDetected); Influenza AH1, PCR Not Detected (NotDetected); Influenza AH3,PCR Not Detected (NotDetected); Influenza B, PCR Not Detected (NotDetected); Mycoplasma Pneumoniae, PCR Not Detected (NotDetected); Parainfluenza 1, PCR Not Detected (NotDetected); Parainfluenza 2, PCR Not Detected (NotDetected); Parainfluenza 3, PCR Not Detected (NotDetected); Parainfluenza 4, PCR Not Detected (NotDetected); Respiratory Syncytial Virus Not Detected (NotDetected)
[2022-08-17 10:13] LABS: Rhinovirus/Enterovirus Detected (NotDetected)
== END 2022-08-16 09:13 | disposition home or self-care (01) ==
PROVIDERS: Emergency Provider Nurse Practitioner Family; PCP Family Medicine
DX: J20.9 Acute bronchitis, unspecified (principal); J01.90 Acute sinusitis, unspecified; B34.1 Enterovirus infection, unspecified; F17.290 Nicotine dependence, other tobacco product, uncomplicated; J44.9 Chronic obstructive pulmonary disease, unspecified; E11.9 Type 2 diabetes mellitus without complications; Z79.84 Long term (current) use of oral hypoglycemic drugs; I10 Essential (primary) hypertension; E78.5 Hyperlipidemia, unspecified
CPT/HCPCS: 87581; 87632; 87798; 87880; 99212; 99214; C9803; G0463; U0003; U0005

== ENCOUNTER 2022-12-01 09:28 | Emergency (ER) | payer MEDICARE, SELFPAY ==
[2022-12-01 09:28] VITALS: BP 119/70; PULSE 62; RESP 18; TEMP 36.7; O2SAT 99; BMI 48.2
[2022-12-01 09:47] LABS: UTC Strep Screen (Rapid) Negative (Negative)
--- NOTE | 2022-12-01 09:49 | EXP.UTC ---
Discharge Plan Disposition Patient Disposition: Home, Self-Care Condition: Good Prescriptions Prescriptions: New pseudoephedrine HCl [Sudafed 12 Hour] 120 mg tablet extended release 120 mg PO BID PRN (Reason: nasal congestion) Qty: 20 0RF No Action triamcinolone acetonide 0.1 % lotion 1 ml topical NEEDED PRN (Reason: PSORIAS) Patient Comments: APPLY A SMALL AMOUNT ON COTTON BALL AND APPLY TO SKIN OF EAR CANAL TWICE DAILY. diclofenac sodium 1 % gel 4 g topical QID PRN (Reason: pain ) 30 Days Qty: 100 2RF Rx Instructions: apply to single, ankle, foot; for foot includes sole/toes/top of foot loratadine 10 mg tablet 10 mg PO DAILY Patient Comments: TAKE 1 TABLET BY MOUTH ONCE DAILY losartan 100 mg tablet 100 mg PO DAILY fluticasone propion-salmeterol 250-50 mcg/dose blister with device 1 each inhalation BID albuterol sulfate 1.25 MG/3 ML solution for nebulization 1.25 mg inhalation DAILYP PRN (Reason: asthma / copd) ibuprofen 800 MG tablet 800 mg PO Q8HP PRN (Reason: Moderate Pain) sitagliptin phosphate 100 MG tablet 100 mg PO DAILYDM risankizumab-rzaa 150 MG/ML pen injector 150 mg SQ DIRECTED Rx Instructions: takes every 12 weeks pantoprazole 20 MG tablet,delayed release (DR/EC) 20 mg PO BID linaclotide 72 MCG capsule 72 mcg PO DAILY oseltamivir [Tamiflu] 75 mg capsule 75 mg PO BID Qty: 10 0RF nystatin 100,000 unit/gram ointment 1 applic topical BID 14 Days Qty: 30 2RF fluconazole [Diflucan] 100 mg tablet 100 mg PO DAILY 3 Days Qty: 3 1RF benzonatate [benzonatate] 100 mg capsule 100 mg PO TIDP PRN (Reason: Cough) Qty: 30 0RF azithromycin [Zithromax] 250 mg tablet 250 mg PO UD DOSE PK Qty: 6 0RF Rx Instructions: Take two (2) tablets today, then one (1) tablet days #2 thru #5 ofloxacin 0.3 % drops See Rx Instructions .ROUTE .COMPLEX Qty: 5 0RF Rx Instructions: put 2 drps into affected eye(s) every 2 h x 2 days, then 1 drp 4 times/day days 3-7 fluoxetine 40 MG capsule 40 mg PO BID bupropion HCl 150 MG tablet 150 mg PO BID simvastatin 5 MG tablet 5 mg PO HS levothyroxine 125 MCG tablet 125 mcg PO DAILYDM pregabalin 150 MG capsule 150 mg PO BID albuterol sulfate 18 GM HFA aerosol inhaler 2 puffs inhalation Q6HP PRN (Reason: Shortness Of Breath Or Wheezing) Qty: 1 0RF montelukast 10 MG tablet 10 mg PO PM amoxicillin [amoxicillin] 500 mg tablet 500 mg PO BID 10 Days Qty: 20 0RF amoxicillin [amoxicillin] 875 mg tablet 875 mg PO Q12H Qty: 20 0RF benzonatate [benzonatate] 100 mg capsule 100 mg PO TIDP PRN (Reason: Cough) Qty: 30 0RF methylprednisolone 4 mg Tablets,Dose Pack 4 mg PO DIRECTED Qty: 21 0RF albuterol sulfate [Ventolin HFA] 90 mcg/actuation HFA aerosol inhaler 2 puff inhalation Q6H PRN (Reason: shortness of breath or wheezing) Qty: 6.7 5RF Referrals Follow up/Referrals: Salima Gonzáles [Primary Care Provider] - See instructions Clinical Impressions Clinical Impression: Allergic rhinitis with postnasal drip Instructions Patient Instructions: Allergic Rhinitis Discharge ED Provider: [place]i Prakash [facility] General Stated complaint: sore throat Mode of Arrival: Ambulatory Source of Information: Patient Limitations: No Limitations Time Seen by Provider: 12/01/22 09:49 Description of Symptoms (Recalled from Triage Doc. by RN): Patient reports a sore throat that started this morning. HEENT Symptoms (Recalled from RN notes): Yes Resp Symptoms (Recalled from RN notes): No Skin Symptoms (Recalled from RN notes): No MS Symptoms (Recalled from RN notes): No Functional Status (Recalled from RN notes): wnl History of Present Illness Provider Complaint: Sore throat since this am. Headache last night. No fever. Mild congestion. Denies ear pain. No vomiting or diarrhe
[2022-12-01 10:09] VITALS: BP 119/70; PULSE 62; RESP 18; TEMP 36.7; O2SAT 99
== END 2022-12-01 10:10 | disposition home or self-care (01) ==
PROVIDERS: Emergency Provider Physician Assistant; PCP Family Medicine
DX: J30.9 Allergic rhinitis, unspecified (principal); R09.82 Postnasal drip; R07.0 Pain in throat; F17.290 Nicotine dependence, other tobacco product, uncomplicated; J44.9 Chronic obstructive pulmonary disease, unspecified; E11.9 Type 2 diabetes mellitus without complications; I10 Essential (primary) hypertension; E78.5 Hyperlipidemia, unspecified; F41.9 Anxiety disorder, unspecified; F32.A Depression, unspecified; Z79.84 Long term (current) use of oral hypoglycemic drugs
CPT/HCPCS: 87880; 99212; 99214; G0463

== ENCOUNTER 2022-12-16 11:36 | Emergency (ER) | payer MEDICARE, SELFPAY ==
[2022-12-16] VITALS (8 sets, daily range): BP systolic 104–148; BP diastolic 63–88; PULSE 47–63; RESP 17–26; TEMP 36.6–36.8; O2SAT 95–99; BMI 48.5; BMI 49.1
--- NOTE | 2022-12-16 11:50 | PC.NURSE ---
PATIENT SENT TO ER PER Renu SEARS APRN FOR FURTHER EVALUATION OF CHEST PAIN. REPORT GIVEN TO CARLY CONTRERAS. PATIENT TRANSPORTED TO ER VIA WHEELCHAIR WITH [facility] STAFF ASSIST AT THIS TIME
--- NOTE | 2022-12-16 11:52 | EXP.UTC ---
Discharge Plan Disposition Patient Disposition: Still a Patient Condition: Fair Prescriptions Prescriptions: No Action triamcinolone acetonide 0.1 % lotion 1 ml topical NEEDED PRN (Reason: PSORIAS) Patient Comments: APPLY A SMALL AMOUNT ON COTTON BALL AND APPLY TO SKIN OF EAR CANAL TWICE DAILY. diclofenac sodium 1 % gel 4 g topical QID PRN (Reason: pain ) 30 Days Qty: 100 2RF Rx Instructions: apply to single, ankle, foot; for foot includes sole/toes/top of foot loratadine 10 mg tablet 10 mg PO DAILY Patient Comments: TAKE 1 TABLET BY MOUTH ONCE DAILY losartan 100 mg tablet 100 mg PO DAILY fluticasone propion-salmeterol 250-50 mcg/dose blister with device 1 each inhalation BID albuterol sulfate 1.25 MG/3 ML solution for nebulization 1.25 mg inhalation DAILYP PRN (Reason: asthma / copd) ibuprofen 800 MG tablet 800 mg PO Q8HP PRN (Reason: Moderate Pain) sitagliptin phosphate 100 MG tablet 100 mg PO DAILYDM risankizumab-rzaa 150 MG/ML pen injector 150 mg SQ DIRECTED Rx Instructions: takes every 12 weeks pantoprazole 20 MG tablet,delayed release (DR/EC) 20 mg PO BID linaclotide 72 MCG capsule 72 mcg PO DAILY oseltamivir [Tamiflu] 75 mg capsule 75 mg PO BID Qty: 10 0RF nystatin 100,000 unit/gram ointment 1 applic topical BID 14 Days Qty: 30 2RF fluconazole [Diflucan] 100 mg tablet 100 mg PO DAILY 3 Days Qty: 3 1RF benzonatate [benzonatate] 100 mg capsule 100 mg PO TIDP PRN (Reason: Cough) Qty: 30 0RF azithromycin [Zithromax] 250 mg tablet 250 mg PO UD DOSE PK Qty: 6 0RF Rx Instructions: Take two (2) tablets today, then one (1) tablet days #2 thru #5 ofloxacin 0.3 % drops See Rx Instructions .ROUTE .COMPLEX Qty: 5 0RF Rx Instructions: put 2 drps into affected eye(s) every 2 h x 2 days, then 1 drp 4 times/day days 3-7 pseudoephedrine HCl [Sudafed 12 Hour] 120 mg tablet extended release 120 mg PO BID PRN (Reason: nasal congestion) Qty: 20 0RF fluoxetine 40 MG capsule 40 mg PO BID bupropion HCl 150 MG tablet 150 mg PO BID simvastatin 5 MG tablet 5 mg PO HS levothyroxine 125 MCG tablet 125 mcg PO DAILYDM pregabalin 150 MG capsule 150 mg PO BID albuterol sulfate 18 GM HFA aerosol inhaler 2 puffs inhalation Q6HP PRN (Reason: Shortness Of Breath Or Wheezing) Qty: 1 0RF montelukast 10 MG tablet 10 mg PO PM amoxicillin [amoxicillin] 500 mg tablet 500 mg PO BID 10 Days Qty: 20 0RF amoxicillin [amoxicillin] 875 mg tablet 875 mg PO Q12H Qty: 20 0RF benzonatate [benzonatate] 100 mg capsule 100 mg PO TIDP PRN (Reason: Cough) Qty: 30 0RF methylprednisolone 4 mg Tablets,Dose Pack 4 mg PO DIRECTED Qty: 21 0RF albuterol sulfate [Ventolin HFA] 90 mcg/actuation HFA aerosol inhaler 2 puff inhalation Q6H PRN (Reason: shortness of breath or wheezing) Qty: 6.7 5RF Referrals Follow up/Referrals: Salima Gonzáles [Primary Care Provider] - See instructions Clinical Impressions Clinical Impression: Chest pain Discharge ED Provider: Marco Antonio Valadez [facility] General Stated complaint: back and side pain Time Seen by Provider: 12/16/22 11:52 History of Present Illness Provider Complaint: She states that since this morning around 0500 she has been having chest pain. Related Data Home Medications Medication Instructions Recorded Confirmed bupropion HCl 150 mg tablet,12 hr 150 mg PO BID Depression 08/11/18 02/08/22 sustained-release fluoxetine 40 mg capsule 40 mg PO BID Depression 08/11/18 02/08/22 levothyroxine 125 mcg tablet 125 mcg PO DAILYDM hypothyroidism 08/11/18 02/08/22 pregabalin 150 mg capsule 150 mg PO BID neuropathy 08/11/18 02/08/22 simvastatin 5 mg tablet 5 mg PO HS Cholesterol 08/11/18 02/08/22 triamcinolone acetonide 0.1 % 1 ml topical NEEDED PRN PSORIAS 10/20/19 02/08/22 lotion roc
--- NOTE | 2022-12-16 11:58 | ECG_ITS ---
APPROVED REPORT Exam: Resting ECG HR:52 bpm ECG Measurements Heart Rate [address] 135 P 48 QRSd 92 QRS 64 QT 458 T 70 QTc 439 Conclusion SINUS BRADYCARDIA BORDERLINE ECG UNCONFIRMED REPORT Electronically signed by : Zeb Swenson MD 12/18/2022 14:07:05
--- NOTE | 2022-12-16 12:33 | XR_ITS ---
PROCEDURE INFORMATION: Exam: XR Chest Exam date and time: 12/16/2022 12:36 PM Age: 56 years old Clinical indication: Chest wall pain; Additional info: Chest pain TECHNIQUE: Imaging protocol: Radiologic exam of the chest. Views: 1 view. COMPARISON: CR XR CHEST PORTABLE 10/27/2021 6:50 PM FINDINGS: Tubes, catheters and devices: EKG leads. Lungs: Calcified right mid to lower lung field granuloma. Pleural spaces: Unremarkable. No pleural effusion. No pneumothorax. Heart/Mediastinum: Unremarkable. No cardiomegaly. Bones/joints: Unremarkable. IMPRESSION: No acute findings.
[2022-12-16 12:41] LABS: Basophils % 0.4 % (0.1-2.0); Eosinophils # 0.1 K/mm3 (0.0-0.4); Eosinophils % 1.4 % (0.1-12.0); Hematocrit 41.9 % (37.0-47.0); Hemoglobin 13.8 g/dL (12.2-16.2); Lymphocytes # 2.1 K/mm3 (0.7-4.5); Lymphocytes % 21.5 % (10-50); Mean Corpuscular HGB Conc 33.1 g/dL (31.8-35.4); Mean Corpuscular Hemoglobin 30.9 pg (27.0-31.2); Mean Corpuscular Volume 93.4 fl (81-99); Mean Platelet Volume 7.3 fl (7.4-10.4); Monocytes # 0.4 K/mm3 (0.1-1.0); Monocytes % 4.5 % (1.7-9.3); Neutrophils # 7.1 K/mm3 (1.8-7.8); Neutrophils % 72.2 % (37.0-80.0); Platelet Count 310 K/mm3 (142-424); Red Blood Count 4.48 M/mm3 (4.20-5.40); Red Cell Distribution Width 13.8 % (11.5-17.5); White Blood Count 9.8 K/mm3 (4.8-10.8)
[2022-12-16 12:42] LABS: Chloride 105 mmol/L (98-107); Potassium 4.1 mmoL/L (3.5-5.1); Sodium 140 mmol/L (136-145)
[2022-12-16 12:44] LABS: Blood Urea Nitrogen 26 mg/dl (7-17); Creatinine Clearance Estimated 52 mL/min (50-200); Estimated Glomerular Filt Rate 65 ml/min (>60); GFR (African American) 78 ML/MIN (>60)
[2022-12-16 12:45] LABS: Alanine Aminotransferase 38 U/L (12-78); Albumin Level 3.8 g/dl (3.5-5.0); Albumin/Globulin Ratio 1.1 (1.1-1.8); Alkaline Phosphatase 103 U/L (38-126); Anion Gap 12.1 mEq/L (5-15); Aspartate Amino Transferase 33 U/L (14-36); Bilirubin,Total 0.9 mg/dl (0.2-1.3); Carbon Dioxide 27 mmol/L (22.0-30.0); Globulin 3.4 g/dL (1.3-3.2); Glucose 114 mg/dl (74-100); Total Protein,Serum 7.2 g/dl (6.3-8.2)
[2022-12-16 13:04] LABS: Troponin I < 0.01 ng/ml (0.00-0.034)
--- NOTE | 2022-12-16 13:25 | HMH.EDGENADL ---
Discharge Plan Disposition Patient Disposition: Home, Self-Care Condition: Fair Prescriptions Prescriptions: New dicyclomine 20 mg tablet 20 mg PO QID Qty: 16 0RF No Action triamcinolone acetonide 0.1 % lotion 1 ml topical NEEDED PRN (Reason: PSORIAS) Patient Comments: APPLY A SMALL AMOUNT ON COTTON BALL AND APPLY TO SKIN OF EAR CANAL TWICE DAILY. diclofenac sodium 1 % gel 4 g topical QID PRN (Reason: pain ) 30 Days Qty: 100 2RF Rx Instructions: apply to single, ankle, foot; for foot includes sole/toes/top of foot loratadine 10 mg tablet 10 mg PO DAILY Patient Comments: TAKE 1 TABLET BY MOUTH ONCE DAILY losartan 100 mg tablet 100 mg PO DAILY fluticasone propion-salmeterol 250-50 mcg/dose blister with device 1 each inhalation BID albuterol sulfate 1.25 MG/3 ML solution for nebulization 1.25 mg inhalation DAILYP PRN (Reason: asthma / copd) ibuprofen 800 MG tablet 800 mg PO Q8HP PRN (Reason: Moderate Pain) sitagliptin phosphate 100 MG tablet 100 mg PO DAILYDM risankizumab-rzaa 150 MG/ML pen injector 150 mg SQ DIRECTED Rx Instructions: takes every 12 weeks pantoprazole 20 MG tablet,delayed release (DR/EC) 20 mg PO BID linaclotide 72 MCG capsule 72 mcg PO DAILY oseltamivir [Tamiflu] 75 mg capsule 75 mg PO BID Qty: 10 0RF nystatin 100,000 unit/gram ointment 1 applic topical BID 14 Days Qty: 30 2RF fluconazole [Diflucan] 100 mg tablet 100 mg PO DAILY 3 Days Qty: 3 1RF benzonatate [benzonatate] 100 mg capsule 100 mg PO TIDP PRN (Reason: Cough) Qty: 30 0RF azithromycin [Zithromax] 250 mg tablet 250 mg PO UD DOSE PK Qty: 6 0RF Rx Instructions: Take two (2) tablets today, then one (1) tablet days #2 thru #5 ofloxacin 0.3 % drops See Rx Instructions .ROUTE .COMPLEX Qty: 5 0RF Rx Instructions: put 2 drps into affected eye(s) every 2 h x 2 days, then 1 drp 4 times/day days 3-7 pseudoephedrine HCl [Sudafed 12 Hour] 120 mg tablet extended release 120 mg PO BID PRN (Reason: nasal congestion) Qty: 20 0RF fluoxetine 40 MG capsule 40 mg PO BID bupropion HCl 150 MG tablet 150 mg PO BID simvastatin 5 MG tablet 5 mg PO HS levothyroxine 125 MCG tablet 125 mcg PO DAILYDM pregabalin 150 MG capsule 150 mg PO BID albuterol sulfate 18 GM HFA aerosol inhaler 2 puffs inhalation Q6HP PRN (Reason: Shortness Of Breath Or Wheezing) Qty: 1 0RF montelukast 10 MG tablet 10 mg PO PM amoxicillin [amoxicillin] 500 mg tablet 500 mg PO BID 10 Days Qty: 20 0RF amoxicillin [amoxicillin] 875 mg tablet 875 mg PO Q12H Qty: 20 0RF benzonatate [benzonatate] 100 mg capsule 100 mg PO TIDP PRN (Reason: Cough) Qty: 30 0RF methylprednisolone 4 mg Tablets,Dose Pack 4 mg PO DIRECTED Qty: 21 0RF albuterol sulfate [Ventolin HFA] 90 mcg/actuation HFA aerosol inhaler 2 puff inhalation Q6H PRN (Reason: shortness of breath or wheezing) Qty: 6.7 5RF Referrals Follow up/Referrals: Salima Gonzáles [Primary Care Provider] - See instructions Activity Restrictions/Add. Instructions Additional Instructions/Restrictions: Recommend that you continue to stay hydrated and eat regularly. Recommend that you follow up with your primary care provider or return to the Emergency Department should your symptoms worsen/persist or you develop any new concerning symptoms. You have been provided with a prescription for Bentyl, you can take this every 6 hours as needed for abdominal cramping pain. Recommend that you continue your previously prescribed antibiotics for treatment of colitis. Should you have any severe abdominal pain, persistent nausea, vomiting, severe chest pain or shortness of breath, recommend that you return to the emergency department for evaluation. Clinical Impressions Clinical Impression: Colitis Chest pain Qualifiers: Chest pa
--- NOTE | 2022-12-16 13:34 | PC.NURSE ---
rounded on pt, pt sitting up in bed, states no needs at this time.
== END 2022-12-16 13:54 | disposition home or self-care (01) ==
LOC: UTC 11:54 → ER 11:55
PROVIDERS: Emergency Provider Emergency Medicine; PCP Family Medicine
DX: R07.9 Chest pain, unspecified (principal); K52.9 Noninfective gastroenteritis and colitis, unspecified; J44.9 Chronic obstructive pulmonary disease, unspecified; E11.9 Type 2 diabetes mellitus without complications; I10 Essential (primary) hypertension; E78.5 Hyperlipidemia, unspecified; F41.9 Anxiety disorder, unspecified; F17.210 Nicotine dependence, cigarettes, uncomplicated
CPT/HCPCS: 71045; 80053; 84484; 85025; 93005; 96361; 96374; 99285; J2405

== ENCOUNTER 2023-12-30 09:45 | Emergency (ER) | payer MEDICARE, SELFPAY ==
[2023-12-30 10:02] VITALS: BP 119/45; PULSE 71; RESP 18; TEMP 36.7; O2SAT 97; BMI 46.6
--- NOTE | 2023-12-30 10:06 | EXP.UTC ---
Discharge Plan Disposition Patient Disposition: Home, Self-Care Condition: Good Prescriptions Prescriptions: New benzonatate 100 mg capsule 100 mg PO TIDP PRN (Reason: Cough) Qty: 30 0RF methylprednisolone 4 mg Tablets,Dose Pack 4 mg PO DIRECTED 6 Days Qty: 21 0RF Rx Instructions: Take 1 pack as directed for 6 days No Action triamcinolone acetonide 0.1 % lotion 1 ml topical NEEDED PRN (Reason: PSORIAS) Patient Comments: APPLY A SMALL AMOUNT ON COTTON BALL AND APPLY TO SKIN OF EAR CANAL TWICE DAILY. diclofenac sodium 1 % gel 4 g topical QID PRN (Reason: pain ) 30 Days Qty: 100 2RF Rx Instructions: apply to single, ankle, foot; for foot includes sole/toes/top of foot loratadine 10 mg tablet 10 mg PO DAILY Patient Comments: TAKE 1 TABLET BY MOUTH ONCE DAILY losartan 100 mg tablet 100 mg PO DAILY fluticasone propion-salmeterol 250-50 mcg/dose blister with device 1 each inhalation BID fluconazole 150 mg tablet 150 mg PO ONCE Qty: 2 0RF Rx Instructions: may repeat second dose 72 hrs after first dose if symptoms persist albuterol sulfate 1.25 MG/3 ML solution for nebulization 1.25 mg inhalation DAILYP PRN (Reason: asthma / copd) ibuprofen 800 MG tablet 800 mg PO Q8HP PRN (Reason: Moderate Pain) sitagliptin phosphate 100 MG tablet 100 mg PO DAILYDM risankizumab-rzaa 150 MG/ML pen injector 150 mg SQ DIRECTED Rx Instructions: takes every 12 weeks pantoprazole 20 MG tablet,delayed release (DR/EC) 20 mg PO BID linaclotide 72 MCG capsule 72 mcg PO DAILY oseltamivir [Tamiflu] 75 mg capsule 75 mg PO BID Qty: 10 0RF nystatin 100,000 unit/gram ointment 1 applic topical BID 14 Days Qty: 30 2RF fluconazole [Diflucan] 100 mg tablet 100 mg PO DAILY 3 Days Qty: 3 1RF benzonatate [benzonatate] 100 mg capsule 100 mg PO TIDP PRN (Reason: Cough) Qty: 30 0RF azithromycin [Zithromax] 250 mg tablet 250 mg PO UD DOSE PK Qty: 6 0RF Rx Instructions: Take two (2) tablets today, then one (1) tablet days #2 thru #5 ofloxacin 0.3 % drops See Rx Instructions .ROUTE .COMPLEX Qty: 5 0RF Rx Instructions: put 2 drps into affected eye(s) every 2 h x 2 days, then 1 drp 4 times/day days 3-7 pseudoephedrine HCl [Sudafed 12 Hour] 120 mg tablet extended release 120 mg PO BID PRN (Reason: nasal congestion) Qty: 20 0RF fluoxetine 40 MG capsule 40 mg PO BID bupropion HCl 150 MG tablet 150 mg PO BID simvastatin 5 MG tablet 5 mg PO HS levothyroxine 125 MCG tablet 125 mcg PO DAILYDM pregabalin 150 MG capsule 150 mg PO BID albuterol sulfate 18 GM HFA aerosol inhaler 2 puffs inhalation Q6HP PRN (Reason: Shortness Of Breath Or Wheezing) Qty: 1 0RF montelukast 10 MG tablet 10 mg PO PM amoxicillin [amoxicillin] 500 mg tablet 500 mg PO BID 10 Days Qty: 20 0RF amoxicillin [amoxicillin] 875 mg tablet 875 mg PO Q12H Qty: 20 0RF benzonatate [benzonatate] 100 mg capsule 100 mg PO TIDP PRN (Reason: Cough) Qty: 30 0RF methylprednisolone 4 mg Tablets,Dose Pack 4 mg PO DIRECTED Qty: 21 0RF albuterol sulfate [Ventolin HFA] 90 mcg/actuation HFA aerosol inhaler 2 puff inhalation Q6H PRN (Reason: shortness of breath or wheezing) Qty: 6.7 5RF dicyclomine 20 mg tablet 20 mg PO QID Qty: 16 0RF Referrals Follow up/Referrals: Salima Gonzáles [Primary Care Provider] - See instructions Activity Restrictions/Add. Instructions Additional Instructions/Restrictions: Drink plenty of fluids. Take tylenol or ibuprofen for pain or fever. Take the medications as directed. Follow up with your regular doctor. GO TO THE ER FOR ANY WORSENING SYMPTOMS Clinical Impressions Clinical Impression: Bronchitis Stand Alone Forms Stand Alone Forms: Work/School Release Instructions Patient Instructions: Acute
[2023-12-30 10:29] VITALS: BP 119/45; PULSE 71; RESP 18; TEMP 36.7; O2SAT 97
== END 2023-12-30 10:30 | disposition home or self-care (01) ==
PROVIDERS: Emergency Provider Nurse Practitioner Family; PCP Family Medicine
DX: J20.9 Acute bronchitis, unspecified (principal); R05.9 Cough, unspecified
CPT/HCPCS: 99212; 99214; G0463

== ENCOUNTER 2024-01-13 09:33 | Emergency (ER) | payer MEDICARE, SELFPAY ==
[2024-01-13 09:34] VITALS: BP 153/105; PULSE 77; RESP 19; TEMP 36.7; O2SAT 97; BMI 44.0
--- NOTE | 2024-01-13 09:38 | HMH.EDGENADL ---
Discharge Plan Disposition Patient Disposition: Home, Self-Care Condition: Good Prescriptions Prescriptions: New levofloxacin 750 mg tablet 750 mg PO DAILY 7 Days Qty: 7 0RF ondansetron 4 mg tablet,disintegrating 4 mg PO DAILY PRN (Reason: nausea and vomiting) 5 Days Qty: 10 0RF ketorolac 10 mg tablet 10 mg PO Q8H PRN (Reason: pain) 5 Days Qty: 14 0RF Discontinued fluconazole 150 mg tablet 150 mg PO ONCE Qty: 2 0RF Rx Instructions: may repeat second dose 72 hrs after first dose if symptoms persist ibuprofen 800 MG tablet 800 mg PO Q8HP PRN (Reason: Moderate Pain) oseltamivir [Tamiflu] 75 mg capsule 75 mg PO BID Qty: 10 0RF fluconazole [Diflucan] 100 mg tablet 100 mg PO DAILY 3 Days Qty: 3 1RF benzonatate [benzonatate] 100 mg capsule 100 mg PO TIDP PRN (Reason: Cough) Qty: 30 0RF azithromycin [Zithromax] 250 mg tablet 250 mg PO UD DOSE PK Qty: 6 0RF Rx Instructions: Take two (2) tablets today, then one (1) tablet days #2 thru #5 ofloxacin 0.3 % drops See Rx Instructions .ROUTE .COMPLEX Qty: 5 0RF Rx Instructions: put 2 drps into affected eye(s) every 2 h x 2 days, then 1 drp 4 times/day days 3-7 pseudoephedrine HCl [Sudafed 12 Hour] 120 mg tablet extended release 120 mg PO BID PRN (Reason: nasal congestion) Qty: 20 0RF amoxicillin [amoxicillin] 500 mg tablet 500 mg PO BID 10 Days Qty: 20 0RF amoxicillin [amoxicillin] 875 mg tablet 875 mg PO Q12H Qty: 20 0RF benzonatate [benzonatate] 100 mg capsule 100 mg PO TIDP PRN (Reason: Cough) Qty: 30 0RF methylprednisolone 4 mg Tablets,Dose Pack 4 mg PO DIRECTED Qty: 21 0RF benzonatate 100 mg capsule 100 mg PO TIDP PRN (Reason: Cough) Qty: 30 0RF methylprednisolone 4 mg Tablets,Dose Pack 4 mg PO DIRECTED 6 Days Qty: 21 0RF Rx Instructions: Take 1 pack as directed for 6 days No Action triamcinolone acetonide 0.1 % lotion 1 ml topical NEEDED PRN (Reason: PSORIAS) Patient Comments: APPLY A SMALL AMOUNT ON COTTON BALL AND APPLY TO SKIN OF EAR CANAL TWICE DAILY. diclofenac sodium 1 % gel 4 g topical QID PRN (Reason: pain ) 30 Days Qty: 100 2RF Rx Instructions: apply to single, ankle, foot; for foot includes sole/toes/top of foot loratadine 10 mg tablet 10 mg PO DAILY Patient Comments: TAKE 1 TABLET BY MOUTH ONCE DAILY losartan 100 mg tablet 100 mg PO DAILY fluticasone propion-salmeterol 250-50 mcg/dose blister with device 1 each inhalation BID albuterol sulfate 1.25 MG/3 ML solution for nebulization 1.25 mg inhalation DAILYP PRN (Reason: asthma / copd) sitagliptin phosphate 100 MG tablet 100 mg PO DAILYDM risankizumab-rzaa 150 MG/ML pen injector 150 mg SQ DIRECTED Rx Instructions: takes every 12 weeks pantoprazole 20 MG tablet,delayed release (DR/EC) 20 mg PO BID linaclotide 72 MCG capsule 72 mcg PO DAILY nystatin 100,000 unit/gram ointment 1 applic topical BID 14 Days Qty: 30 2RF fluoxetine 40 MG capsule 40 mg PO BID bupropion HCl 150 MG tablet 150 mg PO BID simvastatin 5 MG tablet 5 mg PO HS levothyroxine 125 MCG tablet 125 mcg PO DAILYDM pregabalin 150 MG capsule 150 mg PO BID albuterol sulfate 18 GM HFA aerosol inhaler 2 puffs inhalation Q6HP PRN (Reason: Shortness Of Breath Or Wheezing) Qty: 1 0RF montelukast 10 MG tablet 10 mg PO PM albuterol sulfate [Ventolin HFA] 90 mcg/actuation HFA aerosol inhaler 2 puff inhalation Q6H PRN (Reason: shortness of breath or wheezing) Qty: 6.7 5RF dicyclomine 20 mg tablet 20 mg PO QID Qty: 16 0RF Referrals Follow up/Referrals: Salima Gonzáles [Primary Care Provider] - See instructions Activity Restrictions/Add. Instructions Additional Instructions/Restrictions: As we discussed, your urinalysis showed signs of infection, you have a slightly elevated white blood cell count, your urinalysis did show some blood, however no kidney stones were seen on your CT scan. After discussion of your symptoms, we have elected to treat a potential kidney infection with a course of antibiotics. Have prescribed pain and nausea medication for you to take as needed. Please return with any new or worsening symptoms. Clinical Impressions Clinical Impression: Pyelonephritis Instructions Patient Instructions: DI for Acute Abdominal Pain Print Language Print Language: [place] Discharge ED Provider: Wilmar Martinez General Adult HPI General Chief complaint: Abdominal Pain Stated complaint: poss kidney stone abd pain Time Seen by Provider: 01/13/24 09:38 History of Present Illness HPI narrative: The patient presents with a chief complaint of abdominal pain that started yesterday, causing her to leave work around 12:30 PM. The pain had eased off by the time she got home, but it returned this morning, waking her up. The patient also reports experiencing diarrhea this morning. The pain is described as dull and located on the right side of the abdomen, with some discomfort in the back and flank area. The patient denies any pain with urination and has not been around anyone sick recently. The patient has a history of colitis and kidney stones and is unable to distinguish which condition is causing the current symptoms. She mentions having experienced cramping a couple of weeks ago and had a CT scan ordered by her primary doctor, Dr. Gonzáles, but it was not completed due to bronchitis. The patient has a history of requiring procedures for kidney stones, including having two stones blasted two martinez ago, which resulted in a hospital stay due to infection. The patient denies having a fever but reports feeling hot and flushed. The patient experiences pain in the right side of the abdomen, describing it as deeper pain. 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 She mentions that the pain is constant rather than coming and going. The patient also notes that she had her temperature checked earlier and it was normal. Please note that above description of symptoms, in this electronic medical record under categorization of recalled from ER triage doctor by RN are reflective of an initial nursing assessment, however, is not reflective of my full history and physical exam that was personally taken and clarified. Consequentially, this preceding description of symptoms, which may include the patient's categorized chief complaint in the EMR, do not reflect my personal clinical impression, and the ultimate description of history of present illness and patient stated complaints should be deferred to this section of the note. Unless stated otherwise or congruent with this section of the note, additional signs, symptoms, or incongruence should be interpreted as inaccurate with my clinical impression. Related Data Home Medications ?Medication ?Instructions ?Recorded ?Confirmed bupropion HCl 150 mg tablet,12 hr 150 mg PO BID Depression 08/11/18 02/08/22 sustained-release fluoxetine 40 mg capsule 40 mg PO BID Depression 08/11/18 02/08/22 levothyroxine 125 mcg tablet 125 mcg PO DAILYDM hypothyroidism 08/11/18 02/08/22 pregabalin 150 mg capsule 150 mg PO BID neuropathy 08/11/18 02/08/22 simvastatin 5 mg tablet 5 mg PO HS Cholesterol 08/11/18 02/08/22 triamcinolone acetonide 0.1 % 1 ml topical NEEDED PRN PSORIAS 10/20/19 02/08/22 lotion loratadine 10 mg tablet 10 mg PO DAILY Allergy symptoms 01/08/20 02/08/22 losartan 100 mg tablet 100 mg PO DAILY High blood pressure 01/08/20 02/08/22 fluticasone 250 mcg-salmeterol 50 1 each inhalation BID 03/11/20 02/08/22 mcg/dose blistr powdr for ASTHMA/ALLERGY inhalation montelukast 10 mg tablet 10 mg PO PM Allergy symptoms 10/10/20 02/08/22 albuterol sulfate 1.25 mg/3 mL 1.25 mg inhalation DAILYP PRN 04/08/21 02/08/22 solution for nebulization asthma / copd sitagliptin phosphate 100 mg tablet 100 mg PO DAILYDM Diabetes 04/08/21 02/08/22 linaclotide 72 mcg capsule 72 mcg PO DAILY constipation 10/28/21 02/08/22 pantoprazole 20 mg tablet,delayed 20 mg PO BID acid reflux 10/28/21 02/08/22 release risankizumab-rzaa 150 mg/mL 150 mg SQ DIRECTED psoriasis 10/28/21 02/08/22 subcutaneous pen injector Previous Rx's ?Medication ?Instructions ?Recorded albuterol sulfate 90 mcg/actuation 2 puffs inhalation Q6HP PRN 08/11/18 aerosol inhaler Shortness Of Breath Or Wheezing #1 inh diclofenac sodium 1 % topical gel 4 g topical QID PRN pain 30 days 01/27/21 #100 grams nystatin 100,000 unit/gram topical 1 applic topical BID 14 days #30 04/14/22 ointment grams albuterol sulfate 90 mcg/actuation 2 puff inhalation Q6H PRN 08/16/22 aerosol inhaler (Ventolin HFA) shortness of breath or wheezing #6.7 grams dicyclomine 20 mg tablet 20 mg PO QID #16 tabs 12/16/22 ketorolac 10 mg tablet 10 mg PO Q8H PRN pain 5 days #14 01/13/24 tabs levofloxacin 750 mg tablet 750 mg PO DAILY 7 days #7 tabs 01/13/24 ondansetron 4 mg disintegrating 4 mg PO DAILY PRN nausea and 01/13/24 tablet vomiting 5 days #10 tabs Allergies Allergy/AdvReac Type Severity Reaction Status Date / Time cefdinir Allergy Severe Difficulty Verified 04/14/22 18:53 Breathing morphine [MORPHINE] Allergy Intermediate HALLUCINATI Verified 04/14/22 18:53 [facility] Disclaimer: The information contained in this section may have been updated after the patient was seen, as this information can be updated by other users. Medical History Anxiety Asthma COPD (chronic obstructive pulmonary disease) Depression Diabetes Hyperlipidemia Hypertension Kidney stone Migraine Urinary tract infection Surgical History History of section History of cholecystectomy History of hysterectomy History of tonsillectomy History of tubal ligation Social History Smoking Status: Former smoker tobacco type: cigarettes packs per day: 0 and e-cigarettes second hand exposure: No alcohol intake: never substance use type: denies use current occupational status: employed and disabled Travel in the last 8 weeks: None household members: family housing: house current occupation: [employer] current occupational exposures/hazards: No caffeine: Yes ROS Obtained: Yes other As per HPI Physical Exam General General appearance: alert and in no apparent distress Head Head exam: atraumatic and normocephalic Eye Eye exam: Present normal appearance Neck Neck exam: Present normal inspection Chest Chest inspection: Present normal inspection and symmetric chest wall rise Respiratory Respiratory exam: Present normal lung sounds bilaterally; Absent respiratory distress Cardiovascular Cardiovascular exam: Present regular rate and normal rhythm Abdominal Exam Abdominal exam: Present soft Neurological Exam Neurological exam: Present alert and oriented X3 Psychiatric Psychiatric exam: Present normal affect and normal mood Skin Skin exam: Present warm and dry Medical Decision Making Medical Records Medical records reviewed: Yes I reviewed the patient's medical records. Aurelio Inquiry Pt receiving controlled substance: No Vital Signs: 01/13/24 09:34 01/13/24 10:05 01/13/24 10:30 Temperature 98.0 F Temperature Source Oral Pulse Rate 71 57 L Pulse Rate [Right] 77 Respiratory Rate 19 Blood Pressure 105/66 L 98/60 L Blood Pressure [Left Arm] 153/105 H Blood Pressure Mean 79 Blood Pressure Mean [Left Arm] 121 Blood Pressure Source [Left Arm] Automatic Cuff 02 Sat by Pulse Oximetry 97 95 96 Oxygen Delivery Method Room Air Room Air Room Air 01/13/24 10:52 Temperature 98.0 F Temperature Source Oral Pulse Rate 60 Pulse Rate [Right] Respiratory Rate 18 Blood Pressure 100/60 L Blood Pressure [Left Arm] Blood Pressure Mean Blood Pressure Mean [Left Arm] Blood Pressure Source [Left Arm] 02 Sat by Pulse Oximetry Oxygen Delivery Method Room Air Lab Data Lab Results 01/13/24 09:39: Urine Color Yellow, Urine Appearance Cloudy, Urine pH 6.0, Ur Specific [place] >= 1.030, Urine Protein Negative, Urine Glucose (UA) Negative, Urine Ketones Negative, Urine Blood Trace-i, Urine Nitrate Negative, Urine Bilirubin Negative, Urine Urobilinogen 0.2, Ur Leukocyte Esterase 2+ A, Urine RBC Occasional, Urine WBC 5-10, Ur Squamous Epith Cells 5-10, Calcium Oxalate Crystal 1+, Urine Bacteria Trace, Hyaline Casts Occ 01/13/24 09:45: WBC 11.7 H, RBC 4.61, Hgb 13.9, Hct 44.8, MCV 97.3, MCH 30.2, MCHC 31.0 L, RDW 14.2, Plt Count 362, MPV 8.2, Neut % (Auto) 76.3, Lymph % (Auto) 17.8, [place] % (Auto) 4.7, Eos % (Auto) 0.5, Baso % (Auto) 0.7, Neut # (Auto) 8.9 H, Lymph # (Auto) 2.1, [place] # (Auto) 0.5, Eos # (Auto) 0.1, Baso # (Auto) 0.1, Sodium 143, Potassium 4.0, Chloride 109 H, Carbon Dioxide 28, Anion Gap 10.0, BUN 25 H, Creatinine 1.20 H, Estimated GFR 46 L, Est GFR ( Amer) 56 L, Glucose 97, Calcium 9.0, Total Bilirubin 0.7, AST 26, ALT 31, Alkaline Phosphatase 85, Total Protein 7.4, Albumin 4.1, Globulin 3.3 H, Albumin/Globulin Ratio 1.2, Lipase 187 01/13/24 09:45 01/13/24 09:45 Orders (Tests/Meds): ED MEDICATIONS Discontinued Medications Generic Name Dose Route Start Last Admin Trade Name Freq PRN Reason Stop Dose Admin Lactated Ringer's 1,000 mls @ 999 mls/hr 01/13/24 09:55 01/13/24 10:05 Lactated Ringer's 1000 Ml Bag IV 01/13/24 10:55 999 mls/hr .Q1H1M ONE Administration Ketorolac Tromethamine 15 mg 01/13/24 09:55 01/13/24 10:05 Ketorolac 30mg/Ml Vial IV 01/13/24 09:56 15 mg ONCE ONE Administration Morphine Sulfate 4 mg 01/13/24 09:55 01/13/24 10:14 Morphine 4mg/Ml Syringe IV 01/13/24 09:56 Not Given ONCE ONE Ondansetron HCl 4 mg 01/13/24 09:55 01/13/24 10:04 Ondansetron 4mg/2ml Vial IV 01/13/24 09:56 4 mg ONCE ONE Administration ORDERS Category Date Time Status CT abdomen pelvis wo con Stat Cat Scan 01/13/24 09:55 Completed CBC w/Auto Diff [Complete Blood Count Auto Diff] Stat Lab 01/13/24 09:45 Completed CMP [Comprehensive Metabolic Panel] Stat Lab 01/13/24 09:45 Completed Lipase Stat Lab 01/13/24 09:45 Completed Urinalysis and Microscopic Stat Lab 01/13/24 09:39 Completed Urine Culture Stat Micro 01/13/24 09:39 Results Medical Decision Narrative: Patient with history and exam per above presenting for evaluation of flank pain, right lower quadrant abdominal pain Diagnoses considered include urolithiasis, pyelonephritis, hydronephrosis, Crohn's disease, perforation, diverticulitis, diverticulosis, among others ED workup and treatment included: ED MEDICATIONS Discontinued Medications Generic Name Dose Route Start Last Admin Trade Name Freq PRN Reason Stop Dose Admin Lactated Ringer's 1,000 mls @ 999 mls/hr 01/13/24 09:55 01/13/24 10:05 Lactated Ringer's 1000 Ml Bag IV 01/13/24 10:55 999 mls/hr .Q1H1M ONE Administration Ketorolac Tromethamine 15 mg 01/13/24 09:55 01/13/24 10:05 Ketorolac 30mg/Ml Vial IV 01/13/24 09:56 15 mg ONCE ONE Administration Morphine Sulfate 4 mg 01/13/24 09:55 01/13/24 10:14 Morphine 4mg/Ml Syringe IV 01/13/24 09:56 Not Given ONCE ONE Ondansetron HCl 4 mg 01/13/24 09:55 01/13/24 10:04 Ondansetron 4mg/2ml Vial IV 01/13/24 09:56 4 mg ONCE ONE Administration ORDERS Category Date Time Status CT abdomen pelvis wo con Stat Cat Scan 01/13/24 09:55 Completed CBC w/Auto Diff [Complete Blood Count Auto Diff] Stat Lab 01/13/24 09:45 Completed CMP [Comprehensive Metabolic Panel] Stat Lab 01/13/24 09:45 Completed Lipase Stat Lab 01/13/24 09:45 Completed Urinalysis and Microscopic Stat Lab 01/13/24 09:39 Completed Urine Culture Stat Micro 01/13/24 09:39 Results Labs were independently interpreted by me, significant for leukocytosis to 11, creatinine 1.20, consistent with baseline, urinalysis with 2+ leukocyte esterase, trace bacteriuria Imaging was independently visualized and interpreted by me, significant for no acute findings Please refer to radiology report for full details. My clinical impression at this time is most consistent with recently passed urolith versus pyelonephritis I discussed my clinical impression with patient and answered all questions. At this time, the evidence for any other entities in the differential is insufficient to warrant any further testing or ED observation. This was explained to the patient. The patient was advised that persistent or worsening symptoms require further evaluation. Critical Care Critical Care Time Critical Care Time: No
--- NOTE | 2024-01-13 09:48 | PC.NURSE ---
20g IV placed to [facility], blood collected and sent to lab @ [id number].
--- NOTE | 2024-01-13 09:50 | PC.NURSE ---
dr valenzuela at bedside
--- NOTE | 2024-01-13 09:55 | CT_ITS ---
PROCEDURE INFORMATION: Exam: CT Abdomen And Pelvis Without Contrast Exam date and time: 01/13/2024 10:19 AM Age: 58 years old Clinical indication: Abdominal pain; Flank; Right; Additional info: R flank pain, HX colitis, stones TECHNIQUE: Imaging protocol: Computed tomography of the abdomen and pelvis without contrast. Radiation optimization: All CT scans at this facility use at least one of these dose optimization techniques: automated exposure control; mA and/or kV adjustment per patient size (includes targeted exams where dose is matched to clinical indication); or iterative reconstruction. COMPARISON: CT ABDOMEN PELVIS W CON 01/25/2022 9:20 PM FINDINGS: Tubes, catheters and devices: Midline surgical madeleine. Liver: Normal. No mass. Gallbladder and biliary ducts: Gallbladder is surgically removed Pancreas: Normal. No ductal dilation. Spleen: Normal. No splenomegaly. Adrenal glands: Normal. No mass. Kidneys and ureters: Exophytic cyst in the right kidney. No hydronephrosis. Stomach and bowel: Status post gastric bypass surgery changes. Appendix: No evidence of appendicitis. Intraperitoneal space: Unremarkable. No free air. No significant fluid collection. Vasculature: Unremarkable. No abdominal aortic aneurysm. Lymph nodes: Unremarkable. No enlarged lymph nodes. Urinary bladder: Unremarkable as visualized. Reproductive: Unremarkable as visualized. Postop hysterectomy surgical change Bones/joints: Unremarkable. No acute fracture. Soft tissues: Unremarkable. IMPRESSION: 1. No acute abdominal or pelvic abnormality is appreciated. 2. Postop gastric bypass surgical change. 3. Postop cholecystectomy surgical change. 4. Postop hysterectomy surgical change 5. 10 mm exophytic cystic lesion right kidney. No hydronephrosis COMMENTS: Consistent with the [employer]'s Incidental Findings Committee white paper (J Am Cristiana Radiol 2018): Any incidental renal lesion less than 1 cm or classified as too small to characterize, or any incidental cystic renal lesion characterized as simple-appearing, is likely benign. No follow-up imaging is recommended for these lesions per consensus recommendations based on imaging criteria.
[2024-01-13 10:02] LABS: Microscopic, Urine URINE MICROSCOPIC (MICROSCOPIC)
[2024-01-13 10:03] LABS: Appearance,Urine CLOUDY (Clear); Bilirubin,Urine Negative (Negative); Blood, Urine TRACE-I (Negative); Color,Urine YELLOW (Yellow); Glucose,Urine (UA) Negative (Negative); Ketones,Urine Negative (Negative); Leukocyte Esterase,Urine 2+ (Negative); Nitrate,Urine Negative (Negative); Protein,Urine Negative (Negative); Specific Gravity, Urine >= 1.030 (1.005-1.030); Urobilinogen,Urine 0.2 EU/dl (0.2)
[2024-01-13 10:03] LABS: Basophils # 0.1 K/mm3 (0-0.2); Basophils % 0.7 % (0.1-2.0); Eosinophils # 0.1 K/mm3 (0.0-0.4); Eosinophils % 0.5 % (0.1-12.0); Hematocrit 44.8 % (37.0-47.0); Hemoglobin 13.9 g/dL (12.2-16.2); Lymphocytes # 2.1 K/mm3 (0.7-4.5); Lymphocytes % 17.8 % (10-50); Mean Corpuscular Hemoglobin 30.2 pg (27.0-31.2); Mean Corpuscular Volume 97.3 fl (81-99); Mean Platelet Volume 8.2 fl (7.4-10.4); Monocytes # 0.5 K/mm3 (0.1-1.0); Monocytes % 4.7 % (1.7-9.3); Neutrophils # 8.9 K/mm3 (1.8-7.8); Neutrophils % 76.3 % (37.0-80.0); Platelet Count 362 K/mm3 (142-424); Red Blood Count 4.61 M/mm3 (4.20-5.40); Red Cell Distribution Width 14.2 % (11.5-17.5); White Blood Count 11.7 K/mm3 (4.8-10.8)
[2024-01-13 10:04] LABS: Albumin Level 4.1 g/dl (3.5-5.0); Chloride 109 mmol/L (98-107); Sodium 143 mmol/L (136-145)
[2024-01-13] MEDS: ONDANSETRON 4MG/2ML VIAL 4 MG IV (10:04)
[2024-01-13 10:05] VITALS: BP 105/66; PULSE 71; O2SAT 95
[2024-01-13] MEDS: KETOROLAC 30MG/ML VIAL 15 MG IV (10:05)
[2024-01-13] MEDS: LACTATED RINGERS 1000ML 1,000 ML 999 ML IV (10:05)
[2024-01-13 10:07] LABS: Alanine Aminotransferase 31 U/L (12-78); Aspartate Amino Transferase 26 U/L (14-36); Blood Urea Nitrogen 25 mg/dl (7-17); Carbon Dioxide 28 mmol/L (22.0-30.0); Estimated Glomerular Filt Rate 46 ml/min (>60); GFR (African American) 56 ML/MIN (>60)
[2024-01-13 10:08] LABS: Albumin/Globulin Ratio 1.2 (1.1-1.8); Alkaline Phosphatase 85 U/L (38-126); Bilirubin,Total 0.7 mg/dl (0.2-1.3); Globulin 3.3 g/dL (1.3-3.2); Glucose 97 mg/dl (74-100); Lipase 187 U/L (23-300); Total Protein,Serum 7.4 g/dl (6.3-8.2)
--- NOTE | 2024-01-13 10:11 | PC.NURSE ---
pt to ct
[2024-01-13 10:12] LABS: Bacteria,Urine Trace /lpf; Calcium Oxalate Crystals,Urine 1+ /lpf; Hyaline Casts,Urine OCC #/lpf (0); RBC,Urine Occasional #/hpf (0-3)
--- NOTE | 2024-01-13 10:15 | PC.NURSE ---
pt out of room with Rad for CT
[2024-01-13 10:30] VITALS: BP 98/60; PULSE 57; O2SAT 96
--- NOTE | 2024-01-13 10:49 | PC.NURSE ---
dr valenzuela at bedside
[2024-01-13 10:52] VITALS: BP 100/60; PULSE 60; RESP 18; TEMP 36.7; O2SAT 96
== END 2024-01-13 11:17 | disposition home or self-care (01) ==
PROVIDERS: Emergency Provider Emergency Medicine; PCP Family Medicine
DX: N10 Acute pyelonephritis (principal); B96.89 Other specified bacterial agents as the cause of diseases classified elsewhere
CPT/HCPCS: 74176; 80053; 81001; 83690; 85025; 87086; 96361; 96374; 96375; 99284; J1885; J2405; J7120

== ENCOUNTER 2024-04-05 04:34 | Emergency (ER) | payer MEDICARE, SELFPAY ==
[2024-04-05 04:55] VITALS: BP 141/85; PULSE 92; RESP 20; TEMP 36.6; O2SAT 98; BMI 45.7
--- NOTE | 2024-04-05 04:55 | CT_ITS ---
PROCEDURE INFORMATION: Exam: CT Abdomen And Pelvis With Contrast Exam date and time: 04/05/2024 5:36 AM Age: 58 years old Clinical indication: Abdominal pain; Flank; Right; Additional info: Rlq and R flank pain TECHNIQUE: Imaging protocol: Computed tomography of the abdomen and pelvis with contrast. Radiation optimization: All CT scans at this facility use at least one of these dose optimization techniques: automated exposure control; mA and/or kV adjustment per patient size (includes targeted exams where dose is matched to clinical indication); or iterative reconstruction. Contrast material: ISOVUE; Contrast volume: 75 ml; Contrast route: IV; COMPARISON: CT ABDOMEN PELVIS WO CON 01/13/2024 10:19 AM FINDINGS: Lungs: Subpleural reticulation bases with the appearance of the immediate sparing of the subpleural space. This finding is stable from 01/13/2024, however advanced from 01/25/2022. Heart: Base of heart is unremarkable as visualized. Liver: Normal. No mass. Gallbladder and biliary ducts: Status post cholecystectomy. Pancreas: Mild fatty atrophy of the pancreas. Spleen: Splenic granulomas. Adrenal glands: Normal. No mass. Kidneys and ureters: Benign right exophytic renal cyst. Stomach and bowel: Status post gastric bypass. Mild scattered colonic diverticula without evidence for diverticulitis. Stable appearance of the postsurgical change of the bowel in the left upper quadrant. Appendix: No evidence of appendicitis. Intraperitoneal space: Small focus of omental fat infarction anterior to the colon in the right upper quadrant and right lower quadrant. Vasculature: Unremarkable. No abdominal aortic aneurysm. Lymph nodes: Unremarkable. No enlarged lymph nodes. Urinary bladder: Unremarkable as visualized. Reproductive: Unremarkable as visualized. Bones/joints: Diffuse degenerative change visualized osseous structures. Intramedullary nkechi and screw fixation of the left. Soft tissues: Unremarkable. Other findings: Anterior postsurgical change. IMPRESSION: 1. No acute intra-abdominal findings. 2. Findings concerning for NSIP given imaging pattern and advancing over serial cross-sectional evaluation. Recommend pulmonary consultation. COMMENTS: Consistent with the [employer]'s Incidental Findings Committee white paper (J Am Cristiana Radiol 2018): Any incidental renal lesion less than 1 cm or classified as too small to characterize, or any incidental cystic renal lesion characterized as simple-appearing, is likely benign. No follow-up imaging is recommended for these lesions per consensus recommendations based on imaging criteria.
[2024-04-05 04:59] VITALS: BP 141/85; PULSE 92; RESP 20; TEMP 36.6; O2SAT 98
[2024-04-05 05:05] LABS: Microscopic, Urine URINE MICROSCOPIC (MICROSCOPIC)
[2024-04-05 05:05] LABS: Basophils # 0.1 K/mm3 (0-0.2); Basophils % 1.4 % (0.1-2.0); Eosinophils # 0.1 K/mm3 (0.0-0.4); Eosinophils % 0.5 % (0.1-12.0); Hematocrit 43.7 % (37.0-47.0); Hemoglobin 14.6 g/dL (12.2-16.2); Lymphocytes # 2.7 K/mm3 (0.7-4.5); Lymphocytes % 27.8 % (10-50); Mean Corpuscular HGB Conc 33.4 g/dL (31.8-35.4); Mean Corpuscular Hemoglobin 29.6 pg (27.0-31.2); Mean Corpuscular Volume 88.4 fl (81-99); Mean Platelet Volume 7.8 fl (7.4-10.4); Monocytes # 0.5 K/mm3 (0.1-1.0); Monocytes % 5.4 % (1.7-9.3); Neutrophils # 6.3 K/mm3 (1.8-7.8); Neutrophils % 64.8 % (37.0-80.0); Platelet Count 334 K/mm3 (142-424); Red Blood Count 4.95 M/mm3 (4.20-5.40); White Blood Count 9.7 K/mm3 (4.8-10.8)
[2024-04-05 05:06] LABS: Blood, Urine TRACE-I (Negative); Glucose,Urine (UA) Negative (Negative); Ketones,Urine TRACE (Negative); Leukocyte Esterase,Urine 2+ (Negative); Nitrate,Urine Negative (Negative); PH,Urine 5.5 (5.0-8.5); Protein,Urine 1+ (Negative); Specific Gravity, Urine >= 1.030 (1.005-1.030); Urobilinogen,Urine 0.2 EU/dl (0.2)
[2024-04-05] MEDS: KETOROLAC 30MG/ML VIAL 30 MG IV (05:06)
[2024-04-05] MEDS: ONDANSETRON 4MG/2ML VIAL 4 MG IV (05:06)
[2024-04-05] MEDS: 0.9 % SODIUM CHLORIDE 1000ML 1,000 ML 999 ML IV (05:07)
[2024-04-05] MEDS: OXYCODONE 5MG IMMEDIATE RELEASE TABLET 5 MG PO (05:07)
--- NOTE | 2024-04-05 05:07 | ED_ITS ---
Discharge Plan Disposition Patient Disposition: Home, Self-Care Condition: Fair Prescriptions Prescriptions: New sulfamethoxazole-trimethoprim 400-80 mg tablet 2 tab PO BID 7 Days Qty: 28 0RF fluconazole [Diflucan] 200 mg tablet 200 mg PO DAILY 1 Days Qty: 1 0RF No Action diclofenac sodium 1 % gel 4 g topical QID PRN (Reason: pain ) 30 Days Qty: 100 2RF Rx Instructions: apply to single, ankle, foot; for foot includes sole/toes/top of foot loratadine 10 mg tablet 10 mg PO DAILY Patient Comments: TAKE 1 TABLET BY MOUTH ONCE DAILY cyclobenzaprine 10 mg tablet 10 mg PO PRN Patient Comments: TAKE ONE TABLET BY MOUTH EVERY 8 HOURS MAY CAUSE DROWSINESS Nurtec ODT 75 mg tablet,disintegrating 75 mg PO PRN Patient Comments: DISSOLVE ONE TABLET in MOUTH DIRECTED NEEDED FOR MIGRAINE (DME) [employer] Niels 2 Sensor Kit See Rx Instructions .ROUTE .MEDSUPPLY Qty: 1 Patient Comments: USE DIRECTED FOR CONTINUOUS GLUCOSE MONITORING Rx Instructions: As directed budesonide-formoterol 80-4.5 mcg/actuation HFA aerosol inhaler inhalation Patient Comments: INHALE TWO PUFFS BY MOUTH TWICE DAILY fluticasone propionate 50 mcg/actuation spray,suspension 2 spray intranasal DAILY Patient Comments: instill 1-2 SPRAYS IN EACH NOSTRIL EVERY DAY Emgality Pen 120 mg/mL pen injector 120 mg SQ furosemide 20 mg tablet 20 mg PO DAILY PRN Patient Comments: TAKE ONE TABLET BY MOUTH EVERY DAY potassium chloride 10 mEq capsule, extended release 10 meq PO DAILY PRN Patient Comments: TAKE ONE CAPSULE BY MOUTH EVERY DAY albuterol sulfate 1.25 MG/3 ML solution for nebulization 1.25 mg inhalation DAILYP PRN (Reason: asthma / copd) sitagliptin phosphate 100 mg tablet 50 mg PO DAILYDM risankizumab-rzaa 150 MG/ML pen injector 150 mg SQ DIRECTED Rx Instructions: takes every 12 weeks linaclotide 72 mcg capsule 72 mcg PO DAILY nystatin 100,000 unit/gram ointment 1 applic topical BID 14 Days Qty: 30 2RF fluoxetine 40 MG capsule 40 mg PO BID bupropion HCl 150 MG tablet 150 mg PO BID simvastatin 5 MG tablet 5 mg PO HS levothyroxine 125 MCG tablet 125 mcg PO DAILYDM pregabalin 150 MG capsule 150 mg PO BID albuterol sulfate 18 GM HFA aerosol inhaler 2 puffs inhalation Q6HP PRN (Reason: Shortness Of Breath Or Wheezing) Qty: 1 0RF montelukast 10 MG tablet 10 mg PO PM albuterol sulfate [Ventolin HFA] 90 mcg/actuation HFA aerosol inhaler 2 puff inhalation Q6H PRN (Reason: shortness of breath or wheezing) Qty: 6.7 5RF Referrals Follow up/Referrals: Salima Gonzáles [Primary Care Provider] - See instructions Neri Christy MD [Staff Physician] - See instructions (omentum infarct) Activity Restrictions/Add. Instructions Additional Instructions/Restrictions: You were evaluated in the ER and are appropriate for discharge at this time. Take the prescribed antibiotics as directed, do not skip doses, do not stop taking them early. Take Tylenol and ibuprofen as needed for pain, do not exceed the recommended dose on the bottle, drink water and eat a small snack each time you take these medications to reduce side effects. Monitor your symptoms as discussed for worsening pain, vomiting, bowel changes, or fever. If you have the symptoms, return to the ER. Otherwise follow-up with your primary care doctor, also schedule follow-up with the general surgery team, you have been referred to Dr. Christy for this purpose. Return to the ER with any new, worsening, or otherwise concerning symptoms. Clinical Impressions Clinical Impression: UTI (urinary tract infection), Omental infarction Instructions Patient Instructions: DI for Acute Abdominal Pain Print Language Print Language: Azeri Discharge ED Provider: Donna Marino General Adult HPI General Chief complaint: Abdominal Pain Stated complaint: abd, back pain, nausea Time Seen by Provider: 04/05/24 04:35 Mode of Arrival: Ambulatory Source of Information: Patient Limitations: No Limitations Description of Symptoms (Recalled from ER Triage Doc. by RN): Pt ambulatory to ED with cc of abd pain and back pain. Pt states pain started tonight at approx 0230. Pt states taking a 5mg Hydrocodone [employer]ISTING PROGRAM DIRECT[employer] with no relief. Pt states the abd pain is in her right quad. Pt states being nauseated and also having a cough and sore throat. Pt states having hx of kidney stones, bowel obstruction, loop bowel, colitis, and kidney infection. History of Present Illness HPI narrative: 58-year-old female presents to the ER with chief complaint of abdominal pain worse in the right lower quadrant as well as back pain which she describes as being in the middle of the back. Patient does report a history of kidney stones but states the symptoms are more similar to when she had a kidney infection a few months ago and had to be hospitalized at [facility]. Patient reports she has nausea but no vomiting, no diarrhea or constipation, no headache or dizziness, no chest pain, she states she has had a mild cough recently but that has not been associated with these new symptoms. Patient reports history of cholecystectomy but still has her appendix, she reports she used to take blood pressure medications but since she lost weight she no longer needs them. She does have a history of diabetes and diabetic foot complications. She additionally reports a history of bowel obstruction, colitis. She denies dysuria or hematuria. Related Data Home Medications ?Medication ?Instructions ?Recorded ?Confirmed bupropion HCl 150 mg tablet,12 hr 150 mg PO BID Depression 08/11/18 02/19/24 sustained-release fluoxetine 40 mg capsule 40 mg PO BID Depression 08/11/18 02/19/24 levothyroxine 125 mcg tablet 125 mcg PO DAILYDM hypothyroidism 08/11/18 02/19/24 pregabalin 150 mg capsule 150 mg PO BID neuropathy 08/11/18 02/19/24 simvastatin 5 mg tablet 5 mg PO HS Cholesterol 08/11/18 02/19/24 loratadine 10 mg tablet 10 mg PO DAILY Allergy symptoms 01/08/20 02/19/24 montelukast 10 mg tablet 10 mg PO PM Allergy symptoms 10/10/20 02/19/24 albuterol sulfate 1.25 mg/3 mL 1.25 mg inhalation DAILYP PRN 04/08/21 02/19/24 solution for nebulization asthma / copd risankizumab-rzaa 150 mg/mL 150 mg SQ DIRECTED psoriasis 10/28/21 02/19/24 subcutaneous pen injector budesonide-formoterol HFA 80 inhalation 02/07/24 02/19/24 mcg-4.5 mcg/actuation aerosol inhaler cyclobenzaprine 10 mg tablet 10 mg PO PRN 02/07/24 02/19/24 flash glucose sensor (FreeStyle #1 ea 02/07/24 02/19/24 Niels 2 Sensor kit) fluticasone propionate 50 2 spray intranasal DAILY 02/07/24 02/19/24 mcg/actuation nasal spray,suspension furosemide 20 mg tablet 20 mg PO DAILY PRN 02/07/24 02/19/24 galcanezumab-gnlm 120 mg/mL 120 mg SQ 02/07/24 02/19/24 subcutaneous pen injector (Emgality Pen) potassium chloride 10 mEq 10 meq PO DAILY PRN 02/07/24 02/19/24 capsule,extended release rimegepant 75 mg disintegrating 75 mg PO PRN 02/07/24 02/19/24 tablet (Nurtec ODT) linaclotide 72 mcg capsule 72 mcg PO DAILY constipation 02/19/24 02/19/24 sitagliptin phosphate 100 mg tablet 50 mg PO DAILYDM Diabetes 02/19/24 02/19/24 Previous Rx's ?Medication ?Instructions ?Recorded albuterol sulfate 90 mcg/actuation 2 puffs inhalation Q6HP PRN 08/11/18 aerosol inhaler Shortness Of Breath Or Wheezing #1 inh diclofenac sodium 1 % topical gel 4 g topical QID PRN pain 30 days 01/27/21 #100 grams nystatin 100,000 unit/gram topical 1 applic topical BID 14 days #30 04/14/22 ointment grams albuterol sulfate 90 mcg/actuation 2 puff inhalation Q6H PRN 08/16/22 aerosol inhaler (Ventolin HFA) shortness of breath or wheezing #6.7 grams fluconazole 200 mg tablet 200 mg PO DAILY 1 day #1 tab 04/05/24 (Diflucan) sulfamethoxazole 400 2 tab PO BID 7 days #28 tabs 04/05/24 mg-trimethoprim 80 mg tablet Allergies Allergy/AdvReac Type Severity Reaction Status Date / Time cefdinir Allergy Severe Difficulty Verified 02/19/24 14:55 Breathing morphine (MORPHINE) Allergy Intermediate HALLUCINATI Verified 02/19/24 14:55 ONS PFSH PFS Disclaimer: The information contained in this section may have been updated after the patient was seen, as this information can be updated by other users. Medical History (Updated 04/05/24 @ 06:41 by Donna Marino MD) History of femur fracture Ear noise/buzzing Hearing difficulty of both ears Urinary tract infection Kidney stone Migraine COPD (chronic obstructive pulmonary disease) Asthma Hyperlipidemia Anxiety Diabetes Hypertension Depression Surgical History (Updated 02/19/24 @ 15:00 by Jacque Arevalo DO) History of gastric bypass History of knee replacement History of tubal ligation History of tonsillectomy History of hysterectomy History of cholecystectomy History of section Social History Smoking Status: Current every day smoker tobacco type: cigarettes packs per day: 0 and e-cigarettes second hand exposure: No alcohol intake: never substance use type: denies use current occupational status: employed and disabled household members: family housing: house 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 [employer] current occupational exposures/hazards: No caffeine: Yes Other Medical History Have you received the Flu Vaccine for this season: No Have you received the Pneumonia Vaccine: No ROS Obtained: Yes Systems reviewed as appropriate & no additional complaints except as documented ROS per HPI Physical Exam General General appearance: alert, in no apparent distress and obese Head Head exam: atraumatic and normocephalic Eye Eye exam: Present PERRL and EOMI ENT ENT exam: Present mucous membranes moist Neck Neck exam: Present normal inspection and full ROM Chest Chest inspection: Present symmetric chest wall rise Respiratory Respiratory exam: Present normal lung sounds bilaterally; Absent respiratory distress, wheezes or stridor Cardiovascular Cardiovascular exam: Present regular rate and normal rhythm Abdominal Exam Abdominal exam: Present soft and tenderness (Right lower quadrant without rebound or guarding); Absent distention, guarding, rebound or rigidity Extremities Exam Extremities exam: Present full ROM; Absent edema Back Exam Back exam: Present CVA tenderness (R) (Obvious right CVA tenderness); Absent CVA tenderness (L) Neurological Exam Neurological exam: Present alert and oriented X3; Absent motor sensory deficit Psychiatric Psychiatric exam: Present normal affect and normal mood Skin Skin exam: Present warm and dry Medical Decision Making Medical Records Medical records reviewed: Yes I reviewed the patient's medical records. Screening: Per USPSTF and CDC recommendations, given the prevalence of disease in our region, it is our hospital?s policy to screen for HIV and viral Hepatitis for all patients aged 18 and over and those with ongoing risk factors. MR Comment: Urine culture from patient's most recent ED encounter in January for concerns of pyelonephritis was positive for multiple organisms concerning for contamination Aurelio Inquiry Pt receiving controlled substance: No Vital Signs: 04/05/24 04:55 04/05/24 04:59 Temperature 97.9 F 97.9 F Temperature Source Oral Oral Pulse Rate 92 H Pulse Rate [Left Radial] 92 H Respiratory Rate 20 20 Blood Pressure 141/85 H Blood Pressure [Right Arm] 141/85 H Blood Pressure Mean [Right Arm] 103 Blood Pressure Source Automatic Cuff Blood Pressure Source [Right Arm] Automatic Cuff Blood Pressure Position Sitting Blood Pressure Position [Right Arm] Sitting 02 Sat by Pulse Oximetry 98 98 Oxygen Delivery Method Room Air Room Air Lab Data Lab Results 04/05/24 04:52: WBC 9.7, RBC 4.95, Hgb 14.6, Hct 43.7, MCV 88.4, MCH 29.6, MCHC 33.4, RDW 14.0, Plt Count 334, MPV 7.8, Neut % (Auto) 64.8, Lymph % (Auto) 27.8, Bulloch % (Auto) 5.4, Eos % (Auto) 0.5, Baso % (Auto) 1.4, Neut # (Auto) 6.3, Lymph # (Auto) 2.7, Bulloch # (Auto) 0.5, Eos # (Auto) 0.1, Baso # (Auto) 0.1, PT 10.3, INR 0.91, Sodium 137, Potassium 3.5, Chloride 103, Carbon Dioxide 27, Anion Gap 10.5, BUN 18 H, Creatinine 1.00, Estimated Creat Clear 46, Estimated GFR 57 L, Est GFR ( Amer) 69, Glucose 113 H, Lactate 1.4, Calcium 9.5, Total Bilirubin 1.0, AST 37 H, ALT 36, Alkaline Phosphatase 86, Total Protein 7.8, Albumin 4.5, Globulin 3.3 H, Albumin/Globulin Ratio 1.4, Lipase 213, HIV 1&2 Antibody Rapid Nonreactive 04/05/24 05:02: Urine Color Dark yellow, Urine Appearance Cloudy, Urine pH 5.5, Ur Specific Gaffney >= 1.030, Urine Protein 1+ A, Urine Glucose (UA) Negative, Urine Ketones Trace, Urine Blood Trace-i, Urine Nitrate Negative, Urine Bilirubin 1+ A, Urine Urobilinogen 0.2, Ur Leukocyte Esterase 2+ A, Urine RBC 5- 10, Urine WBC 10-20, Ur Squamous Epith Cells 3-5, Urine Bacteria 2+ 04/05/24 04:52 04/05/24 04:52 Orders (Tests/Meds): ED MEDICATIONS Generic Name Dose Route Start Last Admin Trade Name Freq PRN Reason Stop Dose Admin Sodium Chloride 10 ml 04/05/24 05:44 04/05/24 05:45 Sodium Chloride 0.9% 10ml Syr (Rad Only) IV 05/05/24 05:43 10 ml NEEDED PRN Administration Maintain IV Site Discontinued Medications Generic Name Dose Route Start Last Admin Trade Name Declanq PRN Reason Stop Dose Admin Sodium Chloride 1,000 mls @ 999 mls/hr 04/05/24 05:00 04/05/24 05:07 Sod Chlor 0.9% 1000ml Bag IV 04/05/24 06:00 999 mls/hr .Q1H1M SORAYA Administration Iopamidol 75 ml 04/05/24 05:44 04/05/24 05:45 Iopamidol-370 (76%);100ml Bottle IV 04/05/24 05:45 75 ml ONCE ONE Administration Ketorolac Tromethamine 30 mg 04/05/24 04:55 04/05/24 05:06 Ketorolac 30mg/Ml Vial IV 04/05/24 04:56 30 mg ONCE ONE Administration Ondansetron HCl 4 mg 04/05/24 04:55 04/05/24 05:06 Ondansetron 4mg/2ml Vial IV 04/05/24 04:56 4 mg ONCE ONE Administration Oxycodone HCl 5 mg 04/05/24 04:57 04/05/24 05:07 Oxycodone 5mg Immediate Release Tablet PO 04/05/24 04:58 5 mg ONCE ONE Administration ORDERS Category Date Time Status CT abdomen pelvis w con Stat Cat Scan 04/05/24 04:55 Completed Complete Blood Count Auto Diff Stat Lab 04/05/24 04:52 Completed Comprehensive Metabolic Panel Stat Lab 04/05/24 04:52 Completed HIV (1&2) Antibody Rapid Stat Lab 04/05/24 04:52 Completed Hep C Ab with Reflex to RNA Stat Lab 04/05/24 04:52 Received Lactic Acid Stat Lab 04/05/24 04:52 Completed Lipase Stat Lab 04/05/24 04:52 Completed Prothrombin Time INR Stat Lab 04/05/24 04:52 Completed Urinalysis and Microscopic Stat Lab 04/05/24 05:02 Completed Urine Culture Stat Micro 04/05/24 05:02 Received Medical Decision Narrative: In summary, this 58-year-old female with comorbidities as described in HPI presents to the emergency department today with abdominal pain, back pain. On initial evaluation patient is hemodynamically stable, afebrile, physical exam notable for right lower quadrant abdominal pain without rebound or guarding, no distention, no findings of peritonitis, patient does have right flank pain with CVA tenderness, remainder of exam reassuring. Differential diagnosis includes but is not limited to urinary tract infection, pyelonephritis, kidney dysfunction, kidney stone, bowel obstruction, appendicitis, and less likely pancreatitis. Based on these concerns, I ordered serum labs, urine studies, CT imaging. Patient received IV fluids, morphine, Zofran, Toradol for treatment. Labs personally reviewed demonstrate normal CBC, CMP with improved creatinine and BUN, patient is already receiving IV fluids, lipase 213, reassuring against pancreatitis, UA contaminated with few squamous cells but has 10-20 WBCs, slight blood, negative nitrates. Possibly infection, increase suspicion for stone based on this UA. CT abdomen pelvis personally interpreted does not demonstrate obvious stone or other obvious abdominal pathology on my personal interpretation, see radiology read for full interpretation. Radiology read does comment on omental infarction which is in the area of patient's abdominal pain. I discussed the CT finding of omental infarction with Dr. Christy with general surgery. He stated patients typically are managed conservatively with anti- inflammatories and outpatient follow-up. He states that if the patient starts getting sick or having fever she should come back to the ER, otherwise outpatient follow-up with his clinic is appropriate. He stated a lactic acid at this time would not be indicated for management. I discussed the recommendations of Dr. Christy with the patient. Given her history of kidney and urinary infections and her findings on UA I also prescribed antibiotics. She stated she typically gets Diflucan with antibiotics because of recurrent yeast infections. Bactrim and Diflucan were prescribed. Patient was given instructions on conservative management for the omental infarct, follow-up instructions, referral to general surgery, and return precautions for the ER. She indicated understanding and the patient was discharged in stable condition. Critical Care Critical Care Time Critical Care Time: No
[2024-04-05 05:11] LABS: Appearance,Urine Cloudy (Clear); Bilirubin,Urine 1+ (Negative); Color,Urine Dark Yellow (Yellow)
[2024-04-05 05:13] LABS: Potassium 3.5 mmoL/L (3.5-5.1)
[2024-04-05 05:14] LABS: Bacteria,Urine 2+ /lpf
[2024-04-05 05:15] LABS: Lactic Acid 1.4 mmol/L (0.7-2.1)
[2024-04-05 05:16] LABS: Alanine Aminotransferase 36 U/L (12-78); Albumin Level 4.5 g/dl (3.5-5.0); Albumin/Globulin Ratio 1.4 (1.1-1.8); Alkaline Phosphatase 86 U/L (38-126); Anion Gap 10.5 mEq/L (5-15); Aspartate Amino Transferase 37 U/L (14-36); Blood Urea Nitrogen 18 mg/dl (7-17); Calcium 9.5 mg/dl (8.4-10.2); Carbon Dioxide 27 mmol/L (22.0-30.0); Chloride 103 mmol/L (98-107); Creatinine Clearance Estimated 46 mL/min (50-200); Estimated Glomerular Filt Rate 57 ml/min (>60); GFR (African American) 69 ML/MIN (>60); Globulin 3.3 g/dL (1.3-3.2); Glucose 113 mg/dl (74-100); Lipase 213 U/L (23-300); Sodium 137 mmol/L (136-145); Total Protein,Serum 7.8 g/dl (6.3-8.2)
[2024-04-05 05:24] LABS: INR 0.91 (0.9-1.1); Prothrombin Time 10.3 seconds (10.1-12.5)
[2024-04-05 05:35] LABS: HIV (1&2) Antibody Rapid NONREACTIVE (NONREACTIVE)
[2024-04-05] MEDS: SODIUM CHLORIDE 0.9% 10ML SYR (RAD ONLY) 10 ML IV (05:45)
[2024-04-05] MEDS: IOPAMIDOL-370 (76%);100ML BOTTLE 75 ML IV (05:45)
[2024-04-05 06:56] VITALS: BP 120/79; PULSE 60; RESP 20; TEMP 36.6; O2SAT 97
[2024-04-06 09:24] LABS: HCV Ab Non Reactive (Non Reactive)
== END 2024-04-05 07:00 | disposition home or self-care (01) ==
PROVIDERS: Emergency Provider Emergency Medicine; PCP Family Medicine
DX: R10.9 Unspecified abdominal pain (principal)
CPT/HCPCS: 74177; 80053; 81001; 83605; 83690; 85025; 85610; 86803; 87086; 87389; J1885; J2405; J7030; Q9967

== ENCOUNTER 2024-04-05 12:50 | Emergency (ER) | payer MEDICARE, SELFPAY ==
[2024-04-05 12:52] VITALS: BP 121/70; PULSE 82; RESP 18; TEMP 36.5; O2SAT 98; BMI 45.7
[2024-04-05 13:00] VITALS: BP 109/84; PULSE 77; RESP 18; O2SAT 97
--- NOTE | 2024-04-05 13:04 | HMH.EDGENADL ---
Discharge Plan Disposition Patient Disposition: Home, Self-Care Condition: Good Prescriptions Prescriptions: New phenazopyridine [Pyridium] 100 mg tablet 100 mg PO BID 2 Days Qty: 4 0RF No Action diclofenac sodium 1 % gel 4 g topical QID PRN (Reason: pain ) 30 Days Qty: 100 2RF Rx Instructions: apply to single, ankle, foot; for foot includes sole/toes/top of foot loratadine 10 mg tablet 10 mg PO DAILY Patient Comments: TAKE 1 TABLET BY MOUTH ONCE DAILY cyclobenzaprine 10 mg tablet 10 mg PO PRN Patient Comments: TAKE ONE TABLET BY MOUTH EVERY 8 HOURS MAY CAUSE DROWSINESS Nurtec ODT 75 mg tablet,disintegrating 75 mg PO PRN Patient Comments: DISSOLVE ONE TABLET in MOUTH DIRECTED NEEDED FOR MIGRAINE (DME) FreeStyle Niels 2 Sensor Kit See Rx Instructions .ROUTE .MEDSUPPLY Qty: 1 Patient Comments: USE DIRECTED FOR CONTINUOUS GLUCOSE MONITORING Rx Instructions: As directed budesonide-formoterol 80-4.5 mcg/actuation HFA aerosol inhaler inhalation Patient Comments: INHALE TWO PUFFS BY MOUTH TWICE DAILY fluticasone propionate 50 mcg/actuation spray,suspension 2 spray intranasal DAILY Patient Comments: instill 1-2 SPRAYS IN EACH NOSTRIL EVERY DAY Emgality Pen 120 mg/mL pen injector 120 mg SQ furosemide 20 mg tablet 20 mg PO DAILY PRN Patient Comments: TAKE ONE TABLET BY MOUTH EVERY DAY potassium chloride 10 mEq capsule, extended release 10 meq PO DAILY PRN Patient Comments: TAKE ONE CAPSULE BY MOUTH EVERY DAY albuterol sulfate 1.25 MG/3 ML solution for nebulization 1.25 mg inhalation DAILYP PRN (Reason: asthma / copd) sitagliptin phosphate 100 mg tablet 50 mg PO DAILYDM risankizumab-rzaa 150 MG/ML pen injector 150 mg SQ DIRECTED Rx Instructions: takes every 12 weeks linaclotide 72 mcg capsule 72 mcg PO DAILY nystatin 100,000 unit/gram ointment 1 applic topical BID 14 Days Qty: 30 2RF sulfamethoxazole-trimethoprim 400-80 mg tablet 2 tab PO BID 7 Days Qty: 28 0RF fluconazole [Diflucan] 200 mg tablet 200 mg PO DAILY 1 Days Qty: 1 0RF fluoxetine 40 MG capsule 40 mg PO BID bupropion HCl 150 MG tablet 150 mg PO BID simvastatin 5 MG tablet 5 mg PO HS levothyroxine 125 MCG tablet 125 mcg PO DAILYDM pregabalin 150 MG capsule 150 mg PO BID albuterol sulfate 18 GM HFA aerosol inhaler 2 puffs inhalation Q6HP PRN (Reason: Shortness Of Breath Or Wheezing) Qty: 1 0RF montelukast 10 MG tablet 10 mg PO PM albuterol sulfate [Ventolin HFA] 90 mcg/actuation HFA aerosol inhaler 2 puff inhalation Q6H PRN (Reason: shortness of breath or wheezing) Qty: 6.7 5RF Referrals Follow up/Referrals: Salima Gonzáles [Primary Care Provider] - See instructions Activity Restrictions/Add. Instructions Additional Instructions/Restrictions: Increase fluids, water and not soda or tea. Can drink cranberry juice or cranberry extract. Wipe front to back Wear cotton underwear Empty bladder after intercourse Start antibiotics immediately and make sure you take the full course although you may start to see improvement over the next 48 hours. You can eat yogurt or take probiotics to decrease diarrhea or yeast infection caused by the antibiotic Be sure to follow-up anytime for new or worsening symptoms in 48 hours for wound urine culture results be sure to let you PCP no recent urine for culture so they can request records and ensure that you have appropriate antibiotic if you are not getting better or getting worse. If symptoms worsen or do not improve return. Follow-up with primary care this week. Clinical Impressions Clinical Impression: UTI (urinary tract infection) Qualifiers: Urinary tract infection type: acute cystitis Hematuria presence: without hematuria Qualified Code(s): N30.00 - Acute cystitis without hematuria Instructions Patient Instructions: DI for Urinary Tract Infection (UTI), DI for Acute Abdominal Pain Print Language Print Language: Luxembourgish Discharge ED Provider: Angela Hutchison General Adult HPI <Raya Martinez ([facility]), [employer] - Last Filed: 04/05/24 13:49> General Chief complaint: Abdominal Pain Stated complaint: abd/back pain diarrhea vomiting Time Seen by Provider: 04/05/24 13:02 History of Present Illness HPI narrative: 58-year-old female presents for complaints of pelvic pressure, and pelvic pain. Patient was seen earlier this morning and was diagnosed with a UTI. Patient states she has not taken her meds due to just picking them up. Related Data Home Medications ?Medication ?Instructions ?Recorded ?Confirmed bupropion HCl 150 mg tablet,12 hr 150 mg PO BID Depression 08/11/18 02/19/24 sustained-release fluoxetine 40 mg capsule 40 mg PO BID Depression 08/11/18 02/19/24 levothyroxine 125 mcg tablet 125 mcg PO DAILYDM hypothyroidism 08/11/18 02/19/24 pregabalin 150 mg capsule 150 mg PO BID neuropathy 08/11/18 02/19/24 simvastatin 5 mg tablet 5 mg PO HS Cholesterol 08/11/18 02/19/24 loratadine 10 mg tablet 10 mg PO DAILY Allergy symptoms 01/08/20 02/19/24 montelukast 10 mg tablet 10 mg PO PM Allergy symptoms 10/10/20 02/19/24 albuterol sulfate 1.25 mg/3 mL 1.25 mg inhalation DAILYP PRN 04/08/21 02/19/24 solution for nebulization asthma / copd risankizumab-rzaa 150 mg/mL 150 mg SQ DIRECTED psoriasis 10/28/21 02/19/24 subcutaneous pen injector budesonide-formoterol HFA 80 inhalation 02/07/24 02/19/24 mcg-4.5 mcg/actuation aerosol inhaler cyclobenzaprine 10 mg tablet 10 mg PO PRN 02/07/24 02/19/24 flash glucose sensor (FreeStyle #1 ea 02/07/24 02/19/24 Niels 2 Sensor kit) fluticasone propionate 50 2 spray intranasal DAILY 02/07/24 02/19/24 mcg/actuation nasal spray,suspension furosemide 20 mg tablet 20 mg PO DAILY PRN 02/07/24 02/19/24 galcanezumab-gnlm 120 mg/mL 120 mg SQ 02/07/24 02/19/24 subcutaneous pen injector (Emgality Pen) potassium chloride 10 mEq 10 meq PO DAILY PRN 02/07/24 02/19/24 capsule,extended release rimegepant 75 mg disintegrating 75 mg PO PRN 02/07/24 02/19/24 tablet (Nurtec ODT) linaclotide 72 mcg capsule 72 mcg PO DAILY constipation 02/19/24 02/19/24 sitagliptin phosphate 100 mg tablet 50 mg PO DAILYDM Diabetes 02/19/24 02/19/24 Previous Rx's ?Medication ?Instructions ?Recorded albuterol sulfate 90 mcg/actuation 2 puffs inhalation Q6HP PRN 08/11/18 aerosol inhaler Shortness Of Breath Or Wheezing #1 inh diclofenac sodium 1 % topical gel 4 g topical QID PRN pain 30 days 01/27/21 #100 grams nystatin 100,000 unit/gram topical 1 applic topical BID 14 days #30 04/14/22 ointment grams albuterol sulfate 90 mcg/actuation 2 puff inhalation Q6H PRN 08/16/22 aerosol inhaler (Ventolin HFA) shortness of breath or wheezing #6.7 grams fluconazole 200 mg tablet 200 mg PO DAILY 1 day #1 tab 04/05/24 (Diflucan) phenazopyridine 100 mg tablet 100 mg PO BID 2 days #4 tabs 04/05/24 (Pyridium) sulfamethoxazole 400 2 tab PO BID 7 days #28 tabs 04/05/24 mg-trimethoprim 80 mg tablet Allergies Allergy/AdvReac Type Severity Reaction Status Date / Time cefdinir Allergy Severe Difficulty Verified 02/19/24 14:55 Breathing morphine (MORPHINE) Allergy Intermediate HALLUCINATI Verified 02/19/24 14:55 ONS <Angela Hutchison MD - Last Filed: 04/05/24 13:53> General Mode of Arrival: Ambulatory Source of Information: Patient Limitations: No Limitations Description of Symptoms (Recalled from ER Triage Doc. by RN): abd and back pain PFSH <[facility] Varghese - Last Filed: 04/05/24 13:49> PFS Medical History , [employer]) History of femur fracture Ear noise/buzzing Hearing difficulty of both ears Urinary tract infection Kidney stone Migraine COPD (chronic obstructive pulmonary disease) Asthma Hyperlipidemia Anxiety Diabetes Hypertension Depression Surgical History , [employer]) History of gastric bypass History of knee replacement History of tubal ligation History of tonsillectomy History of hysterectomy History of cholecystectomy History of section Social History , [employer]) Smoking Status: Current every day smoker tobacco type: cigarettes packs per day: 0 and e-cigarettes second hand exposure: No alcohol intake: never substance use type: denies use current occupational status: employed and disabled household members: family housing: house current occupation: [employer] current occupational exposures/hazards: No caffeine: Yes <Angela Hutchison MD - Last Filed: 04/05/24 13:53> [facility] Disclaimer: The information contained in this section may have been updated after the patient was seen, as this information can be updated by other users. Other Medical History Have you received the Flu Vaccine for this season: No Have you received the Pneumonia Vaccine: No <Raya Martinez ([facility]), [employer] - Last Filed: 04/05/24 13:49> ROS Obtained: Yes Systems reviewed as appropriate & no additional complaints except as documented Genitourinary Female Genitourinary: Reports system reviewed and no additional complaints, except as documented, Reports as per HPI, Reports dysuria, Reports pelvic pain, Reports urinary frequency, Reports urinary hesitancy and Reports urinary urgency Hematologic/Lymphatic Henatologic/Lymphatic: Reports system reviewed and no additional complaints, except as documented Physical Exam <Raya Martinez ([facility]), [employer] - Last Filed: 04/05/24 13:49> General General appearance: alert and in no apparent distress ENT ENT exam: Present normal exam Respiratory Respiratory exam: Present normal lung sounds bilaterally Cardiovascular Cardiovascular exam: Present regular rate and normal rhythm Abdominal Exam Abdominal exam: Present soft, tenderness and normal bowel sounds Abdominal tenderness: Present suprapubic Neurological Exam Neurological exam: Present alert and oriented X3 Skin Skin exam: Present warm Medical Decision Making <Raya Martinez ([facility]), [employer] - Last Filed: 04/05/24 13:49> Medical Records Medical records reviewed: Yes I reviewed the patient's medical records. Aurelio Inquiry Pt receiving controlled substance: No Aurelio was queried for this patient: No Vital Signs: 04/05/24 12:52 04/05/24 13:00 Temperature 97.7 F Temperature Source Oral Pulse Rate 77 Pulse Rate [Right] 82 Respiratory Rate 18 18 Blood Pressure 109/84 L Blood Pressure [Right Arm] 121/70 Blood Pressure Mean 90 Blood Pressure Mean [Right Arm] 87 02 Sat by Pulse Oximetry 98 97 Oxygen Delivery Method Room Air Lab Data Lab results reviewed: Yes I reviewed the patient's lab results. Lab Results 04/05/24 13:14: Lactate 1.5 Orders (Tests/Meds): ED MEDICATIONS Discontinued Medications Generic Name Dose Route Start Last Admin Trade Name Christiano PRN Reason Stop Dose Admin Fluconazole 100 mg 04/05/24 13:07 04/05/24 13:22 Fluconazole 100mg Tablet PO 04/05/24 13:08 100 mg ONCE ONE Administration Sodium Chloride 1,000 mls @ 500 mls/hr 04/05/24 13:15 04/05/24 13:19 Sod Chlor 0.9% 1000ml Bag IV 05/05/24 13:14 Not Given .Q2H SORAYA Phenazopyridine HCl 200 mg 04/05/24 13:07 04/05/24 13:21 Phenazopyridine 200mg Tablet PO 04/05/24 13:08 200 mg ONCE ONE Administration Sodium Chloride 500 ml 04/05/24 13:18 04/05/24 13:21 Sodium Chloride 0.9% 500ml Bag IV 04/05/24 13:19 500 ml ONCE ONE Administration Trimethoprim/Sulfamethoxazole 1 each 04/05/24 13:07 04/05/24 13:21 Sulfa/Trimethoprim 1 Tablet PO 04/05/24 13:08 1 each ONCE ONE Administration ORDERS Category Date Time Status CBC Man Diff [Complete Blood Count Man Dif] Stat Lab 04/05/24 13:14 Results Lactic Acid Stat Lab 04/05/24 13:14 Completed Medical Decision Narrative: In summary patient is a 58-year-old female who presents to the emergency department for evaluation of suprapubic pressure, pain, frequency, and burning with urination. Patient was seen earlier today and diagnosed with UTI but has not taken her antibiotic yet due to having some car trouble. Patient is hemodynamically stable upon arrival, afebrile. Unremarkable physical exam. Differential diagnosis includes UTI. Initial workup will be conducted with lactic acid normal. Initial inventions include normal saline 500, Bactrim, Diflucan, and Pyridium. Initial workup reviewed by me lactic acid normal. Upon repeat evaluation patient states pain has improved some. Given this patient was appropriate for discharge at this time will be discharged home with to continue with her Bactrim or Diflucan. Encouraged to increase fluids. <Angela Hutchison MD - Last Filed: 04/05/24 13:53> Medical Records Screening: Per USPSTF and CDC recommendations, given the prevalence of disease in our region, it is our hospital?s policy to screen for HIV and viral Hepatitis for all patients aged 18 and over and those with ongoing risk factors. Vital Signs: 04/05/24 12:52 04/05/24 13:00 Temperature 97.7 F Temperature Source Oral Pulse Rate 77 Pulse Rate [Right] 82 Respiratory Rate 18 18 Blood Pressure 109/84 L Blood Pressure [Right Arm] 121/70 Blood Pressure Mean 90 Blood Pressure Mean [Right Arm] 87 02 Sat by Pulse Oximetry 98 97 Oxygen Delivery Method Room Air Lab Data Lab Results 04/05/24 13:14: Lactate 1.5 Orders (Tests/Meds): ED MEDICATIONS Discontinued Medications Generic Name Dose Route Start Last Admin Trade Name Freq PRN Reason Stop Dose Admin Fluconazole 100 mg 04/05/24 13:07 04/05/24 13:22 Fluconazole 100mg Tablet PO 04/05/24 13:08 100 mg ONCE ONE Administration Sodium Chloride 1,000 mls @ 500 mls/hr 04/05/24 13:15 04/05/24 13:19 Sod Chlor 0.9% 1000ml Bag IV 05/05/24 13:14 Not Given .Q2H SORAYA Phenazopyridine HCl 200 mg 04/05/24 13:07 04/05/24 13:21 Phenazopyridine 200mg Tablet PO 04/05/24 13:08 200 mg ONCE ONE Administration Sodium Chloride 500 ml 04/05/24 13:18 04/05/24 13:21 Sodium Chloride 0.9% 500ml Bag IV 04/05/24 13:19 500 ml ONCE ONE Administration Trimethoprim/Sulfamethoxazole 1 each 04/05/24 13:07 04/05/24 13:21 Sulfa/Trimethoprim 1 Tablet PO 04/05/24 13:08 1 each ONCE ONE Administration ORDERS Category Date Time Status CBC Man Diff [Complete Blood Count Man Dif] Stat Lab 04/05/24 13:14 Results Lactic Acid Stat Lab 04/05/24 13:14 Completed Medical Decision Narrative: In summary patient is a 58-year-old female who presents to the emergency department for evaluation of suprapubic pressure, pain, frequency, and burning with urination. Patient was seen earlier today and diagnosed with UTI but has not taken her antibiotic yet due to having some car trouble. Patient is hemodynamically stable upon arrival, afebrile. Unremarkable physical exam. Differential diagnosis includes UTI. Initial workup will be conducted with lactic acid normal. Initial inventions include normal saline 500, Bactrim, Diflucan, and Pyridium. Initial workup reviewed by me lactic acid normal. Upon repeat evaluation patient states pain has improved some. Given this patient was appropriate for discharge at this time will be discharged home with to continue with her Bactrim or Diflucan. Encouraged to increase fluids. I was consulted by the ANGELA, and we discussed the complexity of problems being addressed. I approved the treatment and management plan for this patient's care in the emergency department, thus performing a substantial portion of the medical decision making. Patient's exam without guarding or rebound. Significant improvement of pain after fluid bolus Pyridium. Normal lactate reassuring for no acute worsening of omental infarction. Recommended to continue follow-up with general surgery. Angela Hutchison MD Critical Care <Raya Martinez ([facility]), [employer] - Last Filed: 04/05/24 13:49> Critical Care Time Critical Care Time: No
[2024-04-05] MEDS: SULFA/TRIMETHOPRIM 1 TABLET 1 EACH PO (13:21)
[2024-04-05] MEDS: SODIUM CHLORIDE 0.9% 500ML BAG 500 ML IV (13:21)
[2024-04-05] MEDS: PHENAZOPYRIDINE 200MG TABLET 200 MG PO (13:21)
[2024-04-05] MEDS: FLUCONAZOLE 100MG TABLET 100 MG PO (13:22)
[2024-04-05 13:32] LABS: Lactic Acid 1.5 mmol/L (0.7-2.1)
[2024-04-05 13:53] VITALS: BP 110/80; PULSE 64; RESP 18; TEMP 36.5; O2SAT 96
[2024-04-05 14:54] LABS: Hematocrit 36.7 % (37.0-47.0); Hemoglobin 13.9 g/dL (12.2-16.2); Mean Corpuscular HGB Conc 37.9 g/dL (31.8-35.4); Mean Corpuscular Hemoglobin 35.4 pg (27.0-31.2); Mean Corpuscular Volume 93.4 fl (81-99); Platelet Count 308 K/mm3 (142-424); Red Blood Count 3.93 M/mm3 (4.20-5.40); Red Cell Distribution Width 13.9 % (11.5-17.5)
[2024-04-05 14:55] LABS: Basophils % 0.5 % (0.1-2.0); Eosinophils # 0.1 K/mm3 (0.0-0.4); Eosinophils % 0.8 % (0.1-12.0); Lymphocytes # 2.2 K/mm3 (0.7-4.5); Lymphocytes % 27.2 % (10-50); Mean Platelet Volume 10.1 fl (7.4-10.4); Monocytes # 0.6 K/mm3 (0.1-1.0); Neutrophils # 5.1 K/mm3 (1.8-7.8); Neutrophils % 64.1 % (37.0-80.0)
== END 2024-04-05 13:59 | disposition home or self-care (01) ==
PROVIDERS: Nurse Practitioner Family; Emergency Provider Student in an Organized Health Care Education/Training Program; PCP Family Medicine
DX: R10.9 Unspecified abdominal pain (principal); Z79.899 Other long term (current) drug therapy; N30.00 Acute cystitis without hematuria; I10 Essential (primary) hypertension; E11.9 Type 2 diabetes mellitus without complications; J44.9 Chronic obstructive pulmonary disease, unspecified; F17.290 Nicotine dependence, other tobacco product, uncomplicated
CPT/HCPCS: 74177; 80053; 81001; 83605; 83690; 85025; 85610; 86803; 87086; 87389; 99284; J1885; J2405; J7030; Q9967

== ENCOUNTER 2024-04-06 21:43 | Observation (INO) | payer MEDICARE, SELFPAY ==
[2024-04-06 21:44] VITALS: BP 158/98; PULSE 89; RESP 20; TEMP 36.4; O2SAT 98; BMI 45.7
[2024-04-06 21:55] VITALS: BP 121/89; PULSE 75; RESP 16; O2SAT 97
--- OUTSIDE RECORDS SUMMARY | 2024-04-06 21:55 | XMS_ITS | Encounter Summary ---
[facility] Address [address] [place] [address] Care Team Providers Care Managed Care Specialist Name Role Phone Eliecer Salima Radha Primary Care Provider [phone] Reason for Visit * Diagnostic Imaging (Routine) - Closed Specialty Diagnoses / Procedures Referred By Contac t Referred To Contact Diagnoses Precordial chest pain Shortness of breath Palpitations Procedures Adult Transthoracic Echo Complete W/ Cont if Necessary Per Protocol Alea Juarez, YAIMA [address] [facility] [address] Phone: tel: fax: [facility] [place] [address] [facility] [place] [address] Phone: tel: fax: Referral ID Status Reason Start Date Expiration Date Visits Re quested Visits Authorized [id number] Closed 12/13/2022 12/13/2023 1 1 Encounter Details Date Type Department Care Team (Latest Contact Info) Description 02/08/2023 2:45 PM EDT Ancillary Procedure [facility] [place] [id number] Precordial chest pain; Shortness of breath; Palpitations Social History Tobacco Use Types Packs/Day Years Used Date Smoking Tobacco: Every Day Cigarettes Smokeless Tobacco: Never Alcohol Use Standard Drinks/Week Comments No 0 (1 standard drink = 0.6 oz pur e alcohol) Comments No Sex and Gender Information Value Date Recorded Sex Assigned at Not on file Legal Sex Female 6:41 PM EDT Gender Identity Not on file Sexual Orientation Not on file documented as of this encounter Last Filed Vital Signs Vital Sign Reading Time Taken Comments Blood Pressure 136/87 02/08/2023 2:34 PM EDT Pulse - - Temperature - - Respiratory Rate - - Oxygen Saturation - - Inhaled Oxygen Concentration - - Weight 119 kg (262 lb) 02/08/2023 2:34 PM EDT Height 157.5 cm (5' 2 ) 02/08/2023 2:34 PM EDT Body Mass Index 47.92 02/08/2023 2:34 PM EDT documented in this encounter Plan of Treatment Not on file documented as of this encounter Procedures Procedure Name Priority Date/Time Associated Diagnosis Comments ECHO COMPLETE W/ DOPPLER AND COLOR FLOW Routine 02/08/2023 2:34 PM EDT Precordial chest pain Shortness of breath Palpitations documented in this encounter Results * ECHO COMPLETE W/ DOPPLER AND COLOR FLOW (02/08/2023 2:34 PM EDT) EF(MOD-bp) 69.0 % LVIDd 5.6 cm LVIDs 3.2 cm IVSd 0.85 cm LVPWd 1.03 cm FS 43.7 % IVS/LVPW 0.82 cm ESV(cubed) 31.6 ml EDV(cubed) 176.6 ml LVOT area 4.2 cm2 LV mass(C)d 203.0 grams LVOT diam 2.30 cm EDV(MOD-sp2) 61.1 ml EDV(MOD-sp4) 67.5 ml ESV(MOD-sp2) 19.2 ml ESV(MOD-sp4) 14.9 ml SV(MOD-sp2) 41.9 ml SV(MOD-sp4) 52.6 ml EF(MOD-sp2) 68.6 % EF(MOD-sp4) 77.9 % MV E max ihsan 74.9 cm/sec MV A max ihsan 58.3 cm/sec MV dec time 0.21 sec MV E/A 1.28 Med Peak E' Ihsan 7.5 cm/sec Lat Peak E' Ihsan 8.2 cm/sec Avg E/e' ratio 9.54 SV(LVOT) 107.6 ml RVIDd 3.2 cm TAPSE (>1.6) 2.02 cm LA dimension (2D) 4.2 cm LV V1 max 93.8 cm/sec LV V1 max PG 3.5 mmHg LV V1 mean PG 2.00 mmHg LV V1 VTI 25.9 cm Ao pk ihsan 156.0 cm/sec Ao max PG 9.7 mmHg Ao mean PG 4.0 mmHg Ao V2 VTI 35.9 cm CHATA(I,D) 3.0 cm2 MV max PG 2.28 mmHg MV mean PG 1.00 mmHg MV V2 VTI 26.2 cm MVA(VTI) 4.1 cm2 MV dec slope 350.0 cm/sec2 TR max ihsan 249.5 cm/sec TR max PG 24.9 mmHg RVSP(TR) 27.9 mmHg RAP systole 3.0 mmHg PA V2 max 96.6 cm/sec Ao root diam 2.8 cm Sinus 3.0 cm Anatomical Region Laterality Modality Ultrasound Narrative 02/18/2023 11:40 AM EDT ?Left ventricular systolic function is normal. Left ventricular ejection fraction appears to be 66 - 70%. ?Left ventricular wall thickness is consistent with borderline apical asymmetric hypertrophy. ?No significant valvular regurgitation or stenosis present. ?Estimated right ventricular systolic pressure from tricuspid regurgitation is normal (<35 mmHg). Left Ventricle Left ventricular systolic function is normal. Left ventricular ejection fraction appears to be 66 - 70%. Septal wall motion is normal. Normal left ventricular cavity size noted. Left ventricular wall thickness is consistent with borderline apical asymmetric hypertrophy. All left ventricular wall segments contract normally. Left ventricular diastolic function was normal. Right Ventricle Normal right ventricular cavity size, systolic function and septal motion noted. Right ventricular wall thickness is consistent with mild hypertrophy. Left Atrium The left atrial cavity is mildly dilated. Right Atrium Normal right atrial cavity size noted. Mitral Valve The mitral valve is structurally normal with no significant stenosis present. Trace to mild mitral valve regurgitation is present with an anteriorly-directed jet noted. Tricuspid Valve Trace to mild tricuspid valve regurgitation is present. Estimated right ventricular systolic pressure from tricuspid regurgitation is normal (<35 mmHg). Aortic Valve The aortic valve is structurally normal with no regurgitation or stenosis present. Pulmonic Valve The pulmonic valve is structurally normal with no regurgitation or significant stenosis present. Pericardium The pericardium is normal. There is no evidence of pericardial effusion. . Greater Vessels No dilation of the aortic root is present. No dilation of the sinuses of Valsalva is present. Study Quality The study is technically adequate for diagnosis. The quality of the study is limited due to patient body habitus. Normal sinus was the predominant rhythm observed during the procedure. Wall Scoring Score Index: 1.00 The left ventricular wall motion is normal. us Alea Juarez APRN CV ECHO ORDERABLES Final Result documented in this encounter Visit Diagnoses Diagnosis Precordial chest pain Precordial pain Shortness of breath Palpitations documented in this encounter Care Teams Managed Care Specialist Relationship Specialty Start Date End Date Salima Gonzáles DO [address] [place] [address] PCP - General Family Medicine 02/21/17 documented as of this encounter
--- OUTSIDE RECORDS SUMMARY | 2024-04-06 21:55 | XMS_ITS | Encounter Summary ---
[facility] Organization [facility] Address [address] [place] [address] Care Team Providers Care Road Inspector Name Role Phone Eliecer Salimajovanni Connergh Primary Care Provider [phone] Reason for Visit * Cardiac (Routine) - Closed Specialty Diagnoses / Procedures Referred By Josep t Referred To Contact Diagnoses Palpitations Procedures Holter Monitor - 72 Hour Up To 15 Days Alea Juarez APRN [address] [address] Phone: tel: fax: [facility] [address] [place] [address] Phone: tel: Referral ID Status Reason Start Date Expiration Date Visits Re quested Visits Authorized [id number] Closed 08/01/2023 07/31/2024 1 1 Encounter Details Date Type Department Care Team (Late st Contact Info) Description 08/01/2023 9:15 AM EDT Ancillary Procedure [facility]IOLOGY [address] [id number] Social History Tobacco Use Types Packs/Day Years Used Date Smoking Tobacco: Former Cigarettes 1 33.9 1 989 - 04/12/2022 Passive Smoke Exposure: Past Smokeless Tobacco: Never Alcohol Use Standard Drinks/Week Comments No 0 (1 standard drink = 0.6 oz pur e alcohol) Abuse Screen Answer Date Recorded Unsafe at Home or Work/School Not on file Feels Threatened by Someone? Not on file 01/2023 Does Anyone Keep You from Co ntacting Others or Doint Things Outside the Home? Not on file 02/12/2023 Physical Sign of Abuse Present Not on file 1 Housing Stability Answer Date Recorded Current Living Arrangements Not on file 01/2023 Potentially Unsafe Housing Conditions Not on mich e 02/12/2023 Family and Community Support Answer Robel e Recorded Help with Day-to-Day Activities Not on file 02/12/2023 Lonely or Isolated Not on file 02/12/2023 Employment Answer Date Recorded Do you want help finding or keeping work or a keshawn b? Not on file 02/12/2023 Disabilities Answer Date Recorded Concentrating, Remembering, or Making Decisions Difficulty Not on file 02/12/2023 Doing Errands Independently Difficulty Not on fi le 02/12/2023 Education Answer Date Recorded Help with school or training? Not on file Preferred Language Not on file 02/12/2023 Comments No Sex and Gender Information Value Date Recorded Sex Assigned at Not on file Legal Sex Female 6:41 PM EDT Gender Identity Not on file Sexual Orientation Not on file documented as of this encounter Plan of Treatment Not on file documented as of this encounter Procedures Procedure Name Priority Date/Time Associated Diagnosis Comments HOLTER MONITOR >48HRS UP TO 7 DAYS HOOK-UP & INTERP Routine 08/01/2023 1:19 PM EDT Palpitations documented in this encounter Results * HOLTER MONITOR >48HRS UP TO 7 DAYS HOOK-UP & INTERP (08/01/2023 1:19 PM EDT) Anatomical Region Laterality Modality Ultrasound Narrative 08/31/2023 4:17 PM EDT ?A relatively benign monitor study. ?Rare nonsustained SVT. ??Patient triggers corresponded with supraventricular couplets or PACs. ??These were overall less than 1%. ??No life-threatening arrhythmias or pauses. ??See raw data for further information. Study Description Monitor placed on patient by Jen Chu MA on 08/01/2023 at 12:00 EDT. Instructions were provided to patient on use of holter monitor and duration of monitoring. The patient was monitored for 5 days 12 hours and 48 minutes. Indications for this exam include palpitations. Total beats: [id number]. Average HR: 69. Min HR: 40. Max HR: 127. Study Impressions A relatively benign monitor study. Rare nonsustained SVT. Patient triggers corresponded with supraventricular couplets or PACs. These were overall less than 1%. No life-threatening arrhythmias or pauses. See raw data for further information. Alea Juarez APRN [facility] Final Result documented in this encounter Visit Diagnoses Not on filedocumented in this encounter Care Teams Road Inspector Relationship Specialty Start Date End Date Salima Gonzáles DO [address] [place] [address] PCP - General Family Medicine 02/21/17 documented as of this encounter
--- OUTSIDE RECORDS SUMMARY | 2024-04-06 21:55 | XMS_ITS | Encounter Summary ---
[facility] Organization [facility] Address [address] [place] [address] Care Team Providers Care Mold Capper Helper Name Role Phone Eliecer Salima Radha Primary Care Provider [phone] Reason for Referral * MRI/CAT/PET Scan (Routine) - Closed Specialty Diagnoses / Procedures Referred By Contac t Referred To Contact Diagnoses Abnormal nuclear stress test Precordial chest pain Abnormal findings on diagnostic imaging of heart and coronary circulation Procedures CT Coronary FFR CTA Data JOHNNIE [employer] GNR[facility] Estimated FFR Model Alea Juarez APRN [address] [address] Phone: tel: fax: RADIOLOGY [address] [place] [address] Phone: tel: fax: Referral ID Status Reason Start Date Expiration Date Visits Re quested Visits Authorized [id number] Closed 02/12/2023 02/12/2024 1 1 Reason for Visit * Reason Comments Palpitations Follow up ECHO and S tress Encounter Details Date Type Department Care Team (Late st Contact Info) Description 02/12/2023 2:30 PM EDT Office Visit [facility] C[facility]IOLOGY [address] [id number] Alea Juarez APRN [address] [address] Abnormal nuclear stress test (Primary Dx); Precordial chest pain; Abnormal findings on diagnostic imaging of heart and coronary circulation; Palpitations Social History Tobacco Use Types Packs/Day Years Used Date Smoking Tobacco: Former Cigarettes 1 58 1 06/13/1963 - 04/12/2022 Passive Smoke Exposure: Past Smokeless [...] Sign Reading Time Taken Comments Blood Pressure 100/64 02/12/2023 2:51 PM EDT Pulse 70 02/12/2023 2:51 PM EDT Temperature - - Respiratory Rate - - Oxygen Saturation 96% 02/12/2023 2:51 PM EDT Inhaled Oxygen Concentration - - Weight 118 kg (260 lb 8 oz) 02/12/2023 2:51 PM E DT Height 157.5 cm (5' 2 ) 02/12/2023 2:51 PM EDT Body Mass Index 47.65 02/12/2023 2:51 PM EDT documented in this encounter Progress Notes * Alea Juarez APRN - 02/12/2023 3:57 PM EDTAssociated Problem(s): Palpitations 2-day cardiac event monitor was completed by PCP on 11/20/2022- average heart rate was 73 bpm. Tachycardia and supraventricular ectopic beats were noted noted but no other arrhythmias. No A-fib or flutter. No pauses or blocks. Recent labs reviewed and unremarkable. -Limit caffeine intake. - Consider repeat Holter monitor for a longer duration if symptoms persist after stress test and echo. * Alea Juarez APRN - 02/12/2023 3:57 PM EDTAssociated Problem(s): Precordial chest pain Stress test showed a possible small area of anterior ischemia. Echocardiogram revealed an LVEF of 66-70% and no significant valvular regurgitation or stenosis. * Alea Juarez APRN - 02/12/2023 3:56 PM EDTAssociated Problem(s): Abnormal nuclear stress test Nuclear stress test from 12/26/2022 revealed a possible small area of anterior ischemia. Overall still a low risk study. We discussed further cardiac testing including a left heart cath and coronary CTA. Patient would like to proceed with a coronary CTA for further evaluation and management. * Alea Juarez APRN - 02/12/2023 2:30 PM EDT Images from the original note were not included. [facility] Provider Note Date: 02/12/2023 Name: Neetu Doherty : 1965 PCP: Petras, Salima Radha, DO Chief Complaint Patient presents with ??? Palpitations Follow up ECHO and Stress Subjective History of Present Illness Neetu Doherty is a 57 y.o. female with past medical history of hypertension, hypothyroidism, psoriatic arthritis, anxiety, diabetes, MAGDI and GERD who presents today for follow-up on recent cardiac testing. At initial office visit on 12/13/2022, patient reported palpitations fatigue and chest pain. Nuclear stress test and echocardiogram was ordered at that time. Echocardiogram revealed an LVEF of 66-70% and no significant valvular regurgitation or stenosis. Nuclear stress test from 12/26/2022 revealed possible small area of anterior ischemia, overall still low risk study. Patient continues to experience occasional chest pain, palpitations and fatigue. She has no past cardiac history. She has a history of MAGDI but has been unable to tolerate CPAP therapy due to the strap causing worsening migraines. She reports daily fatigue and no energy. No known family history of CAD but her father has a pacemaker. She had labs drawn recently with her primary care provider and a 2- day cardiac event monitor. Patient's average heart rate was 73 bpm. Tachycardia and supraventricular ectopic beats were noted noted but no other arrhythmias. No A-fib or flutter. No pauses or blocks. CBC, A1c, thyroid studies, CMP, lipid panel, and vitamin B12 and D reviewed. Echocardiogram 02/08/2023-LVEF 66-70%. Left ventricular diastolic function was normal. No significant valvular regurgitation or stenosis. RVSP is normal. Nuclear stress test 12/26/22- Normal nuclear ejection fraction. Possible small area of anterior ischemia. Overall still low risk study. personnel monitor 11/20/2022-average heart rate 73 bpm, minimum 54 bpm and maximum 103 bpm. Tachycardia was present at with a 0.15% burden and a high heart rate of 129 bpm. 8 patient events were detected. SVT-run event was detected 1. Ventricular ectopic beats were 1 (0%) and supraventricular ectopic beats were 7 (0.01%). Allergies Allergen Reactions ??? Cefdinir Shortness Of Breath and Unknown (See Comments) Causes trouble breathing ??? Morphine And Related Hallucinations Current Outpatient Medications: ??? albuterol (PROVENTIL) (2.5 MG/3ML) 0.083% nebulizer solution, Take 2.5 mg by nebulization Every4 (Four) Hours As Needed for Wheezing., Disp: , Rfl: ??? ascorbic acid (VITAMIN C) 250 MG tablet, Take 1 tablet by mouth Daily., Disp: , Rfl: ??? baclofen (LIORESAL) 10 MG tablet, TAKE ONE TABLET BY MOUTH TWICE DAILY MAY CAUSE DROWSINESS, Disp: , Rfl: ??? budesonide-formoterol (Symbicort) 160-4.5 MCG/ACT inhaler, , Disp: , Rfl: ??? buPROPion SR (WELLBUTRIN SR) 150 MG 12 hr tablet, Take 1 tablet by mouth 2 (Two) Times a Day., Disp: , Rfl: ??? Continuous Blood Gluc Sensor (FreeStyle Niels [address]) [facility] [place] USE DIRECTED FOR CONTINUOUS GLUCOSE MONITORING, Disp: , Rfl: ??? cyanocobalamin (VITAMIN B-12) 1000 MCG tablet, Take 1 tablet by mouth Daily., Disp: , Rfl: ??? cyclobenzaprine (FLEXERIL) 10 MG tablet, cyclobenzaprine 10 mg tablet, Disp: , Rfl: ??? Diclofenac Sodium (VOLTAREN) 1 % gel gel, Place 4 g on the skin as directed by provider 4 (Four) Times a Day., Disp: , Rfl: ??? dicyclomine (BENTYL) 10 MG capsule, TAKE ONE CAPSULE BY MOUTH EVERY 6 HOURS, Disp: , Rfl: ??? Emgality 120 MG/ML auto-injector pen, INJECT 1 ML (120 MG) SUBCUTANEOUSLY ONCE a MONTH, Disp: ,Rfl: ??? EPINEPHrine (EPIPEN) 0.3 MG/0.3ML solution auto-injector injection, epinephrine 0.3 mg/0.3 mL injection, auto-injector, Disp: , Rfl: ??? ferrous sulfate 325 (65 FE) MG tablet, Take 1 tablet by mouth Daily., Disp: , Rfl: ??? fluconazole (DIFLUCAN) 150 MG tablet, Take 1 tablet by mouth Daily., Disp: , Rfl: ??? FLUoxetine (PROzac) 40 MG capsule, Take 1 capsule by mouth Daily., Disp: , Rfl: ??? hydroCHLOROthiazide (HYDRODIURIL) 25 MG tablet, Take 1 tablet by mouth Daily., Disp: , Rfl: ??? hydrOXYzine pamoate (VISTARIL) 25 MG capsule, Take 1 capsule by mouth., Disp: , Rfl: ??? Januvia 100 MG tablet, Januvia 100 mg tablet, Disp: , Rfl: ??? levothyroxine (SYNTHROID, LEVOTHROID) 125 MCG tablet, Take 1 tablet by mouth Daily., Disp: , Rfl: ??? loratadine (CLARITIN) 10 MG tablet, Take 1 tablet by mouth Daily., Disp: , Rfl: ??? losartan (COZAAR) 100 MG tablet, Take 1 tablet by mouth Daily., Disp: , Rfl: ??? montelukast (SINGULAIR) 10 MG tablet, Take 1 tablet by mouth Every Night., Disp: , Rfl: ??? multivitamin with minerals tablet tablet, Take 1 tablet by mouth Daily., Disp: , Rfl: ??? Nurtec 75 MG dispersible tablet, DISSOLVE ONE TABLET in MOUTH DIRECTED NEEDED FOR MIGRAINE, Disp: , Rfl: ??? nystatin (MYCOSTATIN) 133387 UNIT/GM cream, , Disp: , Rfl: ??? nystatin-triamcinolone (MYCOLOG II) 150776-6.1 UNIT/GM-% cream, , Disp: , Rfl: ??? ondansetron ODT (ZOFRAN-ODT) 4 MG disintegrating tablet, DISSOLVE ONE TABLET in MOUTH EVERY 8 HOURS NEEDED FOR NAUSEA, Disp: , Rfl: ??? pantoprazole (PROTONIX) 20 MG EC tablet, Take 1 tablet by mouth Every 12 (Twelve) Hours., Disp:, Rfl: ??? pregabalin (LYRICA) 150 MG capsule, Take 1 capsule by mouth 2 (Two) Times a Day., Disp: , Rfl: ??? Probiotic Product (Acidophilus Probiotic Blend) capsule, Take 1 capsule by mouth Daily., Disp: , Rfl: ??? simvastatin (ZOCOR) 5 MG tablet, simvastatin 5 mg tablet, Disp: , Rfl: ??? Skyrizi Pen 150 MG/ML solution auto-injector, , Disp: , Rfl: ??? pantoprazole (PROTONIX) 40 MG EC tablet, Take 1 tablet by mouth. (Patient not taking: Reported on 02/12/2023), Disp: , Rfl: ??? valsartan (DIOVAN) 320 MG tablet, valsartan 320 mg tablet (Patient not taking: Reported on 02/12/2023), Disp: , Rfl: Past Medical History: Diagnosis Date ??? Colitis 12/2022 ??? Diabetes ??? Hypertension Past Surgical History: Procedure Laterality Date ??? SECTION ??? CYST REMOVAL ??? GALLBLADDER SURGERY ??? GANGLION CYST EXCISION ??? GASTRIC BYPASS ??? HEEL SPUR SURGERY Left ??? HYSTERECTOMY ??? KIDNEY STONE SURGERY ??? KNEE SURGERY Bilateral ??? TONSILLECTOMY Family History Problem Relation Age of Onset ??? Hypertension Mother ??? Diabetes Mother ??? Hypertension Father ??? Diabetes Father Social History Socioeconomic History ??? Marital status: ??? Number of children: 2 Tobacco Use ??? Smoking status: Former Packs/day: 1.00 Years: 58.00 Additional pack years: 0.00 Total pack years: 58.00 Types: Cigarettes Quit date: 04/12/2022 Years since quittin.8 Passive exposure: Past ??? Smokeless tobacco: Never Vaping Use ??? Vaping Use: Every day ??? Start date: 04/27/2022 ??? Substances: Flavoring ??? Devices: Disposable Substance and Sexual Activity ??? Alcohol use: No ??? Drug use: No ??? Sexual activity: Defer Objective Vital Signs: BP 100/64 (BP Location: Other (Comment), Patient Position: Sitting) Comment (BP Location): Left wrist Pulse 70 Ht 157.5 cm (62 ) Wt 118 kg (260 lb 8 oz) SpO2 96% BMI 47.65 kg/m?? Estimated body mass index is 47.65 kg/m?? as calculated from the following: Height as of this encounter: 157.5 cm (62 ). Weight as of this encounter: 118 kg (260 lb 8 oz). Physical Exam Vitals reviewed. Constitutional: Appearance: Normal appearance. HENT: Head: Normocephalic. Cardiovascular: Rate and Rhythm: Normal rate and regular rhythm. Heart sounds: Normal heart sounds. Pulmonary: Effort: Pulmonary effort is normal. Breath sounds: Normal breath sounds. Musculoskeletal: Right lower leg: No edema. Left lower leg: No edema. Skin: General: Skin is warm and dry. Capillary Refill: Capillary refill takes less than 2 seconds. Neurological: General: No focal deficit present. Mental Status: She is alert and oriented to person, place, and time. Psychiatric: Mood and Affect: Mood normal. Behavior: Behavior normal. Cardiology studies reviewed: Echocardiogram and nuclear stress test reviewed. Assessment and Plan Diagnoses and all orders for this visit: 1. Abnormal nuclear stress test (Primary) Assessment & Plan: Nuclear stress test from 12/26/2022 revealed a possible small area of anterior ischemia. Overall still a low risk study. We discussed further cardiac testing including a left heart cath and coronary CTA. Patient would like to proceed with a coronary CTA for further evaluation and management. Orders: - CT Coronary FFR CTA Data JOHNNIE [employer] GNRJ Estimated FFR Model; Future 2. Precordial chest pain Assessment & Plan: Stress test showed a possible small area of anterior ischemia. Echocardiogram revealed an LVEF of 66-70% and no significant valvular regurgitation or stenosis. Orders: - CT Coronary FFR CTA Data JOHNNIE & GNRJ Estimated FFR Model; Future 3. Abnormal findings on diagnostic imaging of heart and coronary circulation - CT Coronary FFR CTA Data JOHNNIE & GNRJ Estimated FFR Model; Future 4. Palpitations Assessment & Plan: 2-day cardiac event monitor was completed by PCP on 11/20/2022- average heart rate was 73 bpm. Tachycardia and supraventricular ectopic beats were noted noted but no other arrhythmias. No A-fib or flutter. No pauses or blocks. Recent labs reviewed and unremarkable. -Limit caffeine intake. - Consider repeat Holter monitor for a longer duration if symptoms persist after stress test and echo. Recommendations: ER if symptoms increase, Report if any new/changing symptoms immediately, and Limit caffeine Follow Up Return in about 4 weeks (around 03/12/2023) for cardiac testing results. Patient was given instructions and counseling regarding her condition or for health maintenance advice. Please see specific information pulled into the AVS if appropriate. documented in this encounter Plan of Treatment Not on file documented as of this encounter Results * CT Coronary FFR CTA Data JOHNNIE [employer] GNRJ Estimated FFR Model (03/27/2023) Anatomical Region Laterality Modality Vascular, Chest N/A Computed Tomogra phy us Alea Juarez APRN IMG CT ORDERABLES Edited Result - Final documented in this encounter Visit Diagnoses Diagnosis Abnormal nuclear stress test- Primary Precordial chest pain Precordial pain Abnormal findings on diagnostic imaging of heart and coronary circulation Palpitations documented in this encounter Care Teams Mold Capper Helper Relationship Specialty Start Date End Date Salima Gonzáles DO [address] [place] [address] PCP - General Family Medicine 02/21/17 documented as of this encounter
--- OUTSIDE RECORDS SUMMARY | 2024-04-06 21:55 | XMS_ITS | Encounter Summary ---
[facility] Address [address] [place] [address] Care Team Providers Care Pe Electrical Engineer Name Role Phone Eliecer Salima Garcia Primary Care Provider [phone] Reason for Referral * Consultation (Routine) - Closed Specialty Diagnoses / Procedures Referred By Josep t Referred To Contact Pulmonary Disease Diagnoses Shortness of breath Chronic obstructive pulmonary disease, unspecified COPD type Procedures [place] OFFICE/OUTPATIENT NEW MODERATE MDM 45 MINUTES Alea Juarez APRN [address] [place] [address] Phone: tel: fax: Wale Hutchins MD [address] [place] [address] [facility] [address] Phone: tel: fax: Referral ID Status Reason Start Date Expiration Date V isits Requested Visits Authorized [id number] Closed Specialty Services Required 09/05/2023 09/04/2024 1 1 Reason for Visit * Reason Comments Shortness of Breath Holter monitor resul ts Encounter Details Date Type Department Care Team (Late st Contact Info) Description 09/05/2023 10:30 AM EDT Office Visit [facility] [address] [place] [id number] Alea Juarez APRN [address] [place] [id number] Shortness of breath (Primary Dx); Palpitations; Mild CAD; Chronic obstructive pulmonary disease, unspecified COPD type Social History Tobacco Use Types Packs/Day Years [...] Sign Reading Time Taken Comments Blood Pressure 114/68 09/05/2023 10:12 AM EDT Pulse 65 09/05/2023 10:12 AM EDT Temperature - - Respiratory Rate - - Oxygen Saturation 94% 09/05/2023 10:12 AM EDT Inhaled Oxygen Concentration - - Weight 121 kg (267 lb) 09/05/2023 10:12 AM EDT Height 157.5 cm (5' 2 ) 09/05/2023 10:12 AM EDT Body Mass Index 48.83 09/05/2023 10:12 AM EDT documented in this encounter Progress Notes * Trautwein, Alea E, COMPLIANCE AUDITOR - 09/05/2023 10:51 AM EDTAssociated Problem(s): Shortness of breath Shortness of breath initially improved after starting Lasix. She has noticed an increase in shortness of breath in the last several weeks. Echo from 02/08/23 showed and LVEF of 66-70% and normal left ventricular diastolic function. Coronary CTA completed on 03/27/2023 showed moderate coronary calcification and mild stenosis in LAD. She has a history of mild COPD and is using albuterol nebulizers daily. Symbicort was initiated at last visit and she has notice a significant improvement in shortness of breath. She is requesting a referral to pulmonology to re-establish care. -Continue Symbicort - Pulmonology referral * Alea Juarez APRN - 09/05/2023 10:48 AM EDTAssociated Problem(s): Palpitations Palpitations have improved since last visit. Holter monitor from 08/01/23 revealed a relatively benign monitor study. Rare nonsustained SVT. Patient triggers corresponded with supraventricular couplets or PACs. These were overall less than 1%. No life-threatening arrhythmias or pauses. * Alea Juarez APRN - 09/05/2023 10:39 AM EDTAssociated Problem(s): Mild CAD She completed a Coronary CTA on 03/27/2023 that revealed moderate coronary calcification with Agatston score of 158. Technically difficult study with limited sensitivity and specificity due to suboptimal image quality. Mixed calcific and soft atherosclerotic disease within the mid and distal segments of the LAD causing mild stenosis. Predominantly calcific plaque in the proximal circumflex with minimal stenosis. No significant stenosis of the RCA. Overall there is a moderate amount of total coronary plaque present. Lipid panel from 11/22/2022 reviewed, cholesterol 107, HDL 57, LDL 32, triglycerides 88. Currently at goal. -Continue Simvastatin at current dose. -Encouraged vaping cessation -Maintain good control of blood sugar * Alea Juarez APRN - 09/05/2023 10:30 AM EDT Images from the original note were not included. [facility] Provider Note Date: 09/05/2023 Name: Neetu Doherty : 1965 PCP: Salima Gonzáles, DO Chief Complaint Patient presents with ??? Shortness of Breath Holter monitor results Subjective History of Present Illness Neetu Doherty is a 57 y.o. female with past medical history of hypertension, hypothyroidism, psoriatic arthritis, anxiety, diabetes, MAGDI and GERD who presents today for follow up on shortnessof breath and palpitations. At last office visit on 08/01/2023, patient reported increasing shortness of breath and palpitations. A Holter monitor was ordered at that time, which revealed a relativelybenign monitor study. Rare nonsustained SVT. Patient triggers corresponded with supraventricular couplets or PACs. These were overall less than 1%. No life-threatening arrhythmias or pauses. She alsohas a history of mild COPD and has not seen a multi operation machine operator recently. A Symbicort inhaler was initiated at last office visit and she reports significant improvement in shortness of breath. She also reports an improvement in palpitations. She notices the palpitations are worse after she coughs or when her blood sugar is elevated. Overall, she is feeling much better today with no new concerns or com plaints. She would like a referral to pulmonology to reestablish care. Cardiac/Sleep History 1. MAGDI intolerant to PAP therapy 2. HTN 3. HLD 4. Mild CAD 5. DM Holter monitor 08/01/2023- a relatively benign monitor study. Rare nonsustained SVT. Patient triggers corresponded with supraventricular couplets or PACs. These were overall less than 1%. No life-threatening arrhythmias or pauses. Echocardiogram 02/08/2023-LVEF 66-70%. Left ventricular diastolic function was normal. No significant valvular regurgitation or stenosis. RVSP is normal. Nuclear stress test 12/26/22- Normal nuclear ejection fraction. Possible small area of anterior ischemia. Overall still low risk study. Coronary CTA 03/27/2023-moderate coronary calcification with Agatston score of 158. Technically difficult study with limited sensitivity and specificity due to suboptimal image quality. Mixed calcific and soft atherosclerotic disease within the mid and distal segments of the LAD causing mild stenosis. Predominantly calcific plaque in the proximal circumflex with minimal stenosis. No significant stenosis of the RCA. Overall there is a moderate amount of total coronary plaque present. Allergies Allergen Reactions ??? Cefdinir Shortness Of Breath and Unknown (See Comments) Causes trouble breathing ??? Morphine And Related Hallucinations Current Outpatient Medications: ??? albuterol (PROVENTIL) (2.5 MG/3ML) 0.083% nebulizer solution, Take 2.5 mg by nebulization Every4 (Four) Hours As Needed for Wheezing., Disp: , Rfl: ??? albuterol sulfate HFA 108 (90 Base) MCG/ACT inhaler, Inhale 2 puffs Every 6 (Six) Hours As Needed., Disp: , Rfl: ??? baclofen (LIORESAL) 10 MG tablet, TAKE ONE TABLET BY MOUTH TWICE DAILY MAY CAUSE DROWSINESS, Disp: , Rfl: ??? budesonide-formoterol (Symbicort) 80-4.5 MCG/ACT inhaler, Inhale 2 puffs 2 (Two) Times a Day., Disp: 6.9 g, Rfl: 12 ??? buPROPion SR (WELLBUTRIN SR) 150 MG 12 hr tablet, Take 1 tablet by mouth 2 (Two) Times a Day., Disp: , Rfl: ??? Continuous Blood Gluc Sensor (FreeStyle Niels 2 Sensor) [facility], USE DIRECTED FOR CONTINUOUS GLUCOSE MONITORING, Disp: [...] Day., Disp: , Rfl: ??? dicyclomine (BENTYL) 20 MG tablet, Take 1 tablet by mouth Every 8 (Eight) Hours., Disp: , Rfl: ??? Emgality 120 MG/ML [...] Times a Day., Disp: , Rfl: ??? furosemide (LASIX) 20 MG tablet, Take 1 tablet by mouth Daily., Disp: , Rfl: ??? hydrALAZINE (APRESOLINE) 25 MG tablet, Take 1 tablet by mouth As Needed., Disp: , Rfl: ??? hydrOXYzine (ATARAX) 10 MG tablet, Take 1 tablet by mouth As Needed., Disp: , Rfl: ??? hydrOXYzine pamoate (VISTARIL) 25 MG capsule, Take 1 capsule by mouth As Needed., Disp: , Rfl: ??? ibuprofen (ADVIL,MOTRIN) 800 MG tablet, Take 0.5 tablets by mouth As Needed., Disp: , Rfl: ??? levothyroxine (SYNTHROID, LEVOTHROID) 125 MCG tablet, Take 1 tablet by mouth Daily., Disp: , Rfl: ??? loratadine (CLARITIN) 10 MG tablet, Take 1 tablet by mouth Daily., Disp: , Rfl: ??? losartan (COZAAR) 100 MG tablet, Take 1 tablet by mouth Daily., Disp: , Rfl: ??? montelukast (SINGULAIR) 10 MG tablet, Take 1 tablet by mouth Every Evening., Disp: , Rfl: ??? multivitamin with minerals tablet tablet, Take 1 tablet by mouth Daily., Disp: , Rfl: ??? Nurtec 75 MG dispersible tablet, DISSOLVE ONE TABLET in MOUTH DIRECTED NEEDED FOR MIGRAINE, Disp: , Rfl: ??? pantoprazole (PROTONIX) 20 MG EC tablet, Take 1 tablet by mouth 2 (Two) Times a Day., Disp: , Rfl: ??? polyethylene glycol (GoLYTELY) 236 g solution, , Disp: , Rfl: ??? potassium chloride (MICRO-K) 10 MEQ CR capsule, Take 1 capsule by mouth Daily., Disp: , Rfl: ??? pregabalin (LYRICA) 150 MG capsule, Take 1 capsule by mouth 2 (Two) Times a Day., Disp: , Rfl: ??? simvastatin (ZOCOR) 5 MG tablet, Take 1 tablet by mouth Daily., Disp: , Rfl: ??? SITagliptin (Januvia) 100 MG tablet, Take 1 tablet by mouth Daily., Disp: , Rfl: ??? Skyrizi Pen 150 MG/ML solution auto-injector, , Disp: , Rfl: Past Medical History: Diagnosis Date ??? Anxiety associated with depression ??? Asthma ??? Colitis 12/2022 ??? COVID-19 05/2023 ??? Diabetes ??? GERD (gastroesophageal reflux disease) ??? Hyperlipidemia ??? Hypertension ??? Hypothyroidism ??? Migraines ??? Psoriasis Past Surgical History: Procedure Laterality Date ??? SECTION ??? CHOLECYSTECTOMY ??? CYST REMOVAL ??? GANGLION CYST EXCISION ??? GASTRIC BYPASS ??? HEEL SPUR SURGERY Left ??? HYSTERECTOMY ??? KIDNEY STONE SURGERY ??? KNEE SURGERY Bilateral ??? TONSILLECTOMY Family History Problem Relation Age of Onset ??? Hypertension Mother ??? Diabetes Mother ??? Hypertension Father ??? Diabetes Father ??? Multiple sclerosis Sister Social History Socioeconomic History ??? Marital status: ??? Number of children: 2 Tobacco Use ??? Smoking status: Former Current packs/day: 0.00 Average packs/day: 1 pack/day for 33.9 years (33.9 ttl pk-yrs) Types: Cigarettes Start date: 1988 Quit date: 04/12/2022 Years since quittin.4 Passive exposure: Past ??? Smokeless tobacco: Never Vaping Use ??? Vaping status: Every Day ??? Start date: 04/27/2022 ??? Substances: Flavoring ??? Devices: Disposable ??? Passive vaping exposure: Yes Substance and Sexual Activity ??? Alcohol use: No ??? Drug use: No ??? Sexual activity: Defer Objective Vital Signs: BP 114/68 Pulse 65 Ht 157.5 cm (62 ) Wt 121 kg (267 lb) SpO2 94% BMI 48.83 kg/m?? Estimated body mass index is 48.83 kg/m?? as calculated from the following: Height as of this encounter: 157.5 cm (62 ). Weight as of this encounter: 121 kg (267 lb). Physical Exam Vitals reviewed. Constitutional: Appearance: Normal [...] normal. Behavior: Behavior normal. Cardiology studies reviewed: Holter monitor reviewed Assessment and Plan Diagnoses and all orders for this visit: 1. Shortness of breath (Primary) Assessment & Plan: Shortness of breath initially improved after starting Lasix. She has noticed an increase in shortness of breath in the last several weeks. Echo from 02/08/23 showed and LVEF of 66-70% and normal left ventricular diastolic function. Coronary CTA completed on 03/27/2023 showed moderate coronary calcification and mild stenosis in LAD. She has a history of mild COPD and is using albuterol nebulizers daily. Symbicort was initiated at last visit and she has notice a significant improvement in shortness of breath. She is requesting a referral to pulmonology to re-establish care. -Continue Symbicort - Pulmonology referral Orders: - Ambulatory Referral to Pulmonology 2. Palpitations Assessment & Plan: Palpitations have improved since last visit. Holter monitor from 08/01/23 revealed a relatively benign monitor study. Rare nonsustained SVT. Patient triggers corresponded with supraventricular couplets or PACs. These were overall less than 1%. No life-threatening arrhythmias or pauses. 3. Mild CAD Assessment & Plan: She completed a Coronary CTA on 03/27/2023 that revealed moderate coronary calcification with Agatston score of 158. Technically difficult study with limited sensitivity and specificity due to suboptimal image quality. Mixed calcific and soft atherosclerotic disease within the mid and distal segments of the LAD causing mild stenosis. Predominantly calcific plaque in the proximal circumflex with minimal stenosis. No significant stenosis of the RCA. Overall there is a moderate amount of total coronary plaque present. Lipid panel from 11/22/2022 reviewed, cholesterol 107, HDL 57, LDL 32, triglycerides 88. Currently at goal. -Continue Simvastatin at current dose. -Encouraged vaping cessation -Maintain good control of blood sugar 4. Chronic obstructive pulmonary disease, unspecified COPD type - Ambulatory Referral to Pulmonology Recommendations: Report if any new/changing symptoms immediately Follow Up Return in about 6 months (around 03/07/2024) for CAD. Patient was given instructions and counseling regarding her condition or for health maintenance advice. Please see specific information pulled into the AVS if appropriate. documented in this encounter Plan of Treatment Not on file documented as of this encounter Visit Diagnoses Diagnosis Shortness of breath- Primary Palpitations Mild CAD Chronic obstructive pulmonary disease, unspecified COPD type documented in this encounter Care Teams Pe Electrical Engineer Relationship Specialty Start Date End Date Salima Gonzáles DO [facility] [place] [address] PCP - General Family Medicine 02/21/17 documented as of this encounter
--- OUTSIDE RECORDS SUMMARY | 2024-04-06 21:55 | XMS_ITS | Encounter Summary ---
[facility] Address [address] [place] [address] Care Team Providers Care Production Cell Leader Name Role Phone Salima Gonzáles DO Primary Care Provider [phone] Encounter Details Date Type Department Care Team (Late st Contact Info) Description 12/26/2022 5:00 AM EDT Outside Facility Service [facility] [address] [place] [phone] Kia Acosta MD [address] [place], [place] [id number] Social History Tobacco Use Types Packs/Day Years [...] documented as of this encounter Visit Diagnoses Not on filedocumented in this encounter Care Teams Production Cell Leader Relationship Specialty Start Date End Date Salima Gonzáles DO [address] [place] [address] PCP - General Family Medicine 02/21/17 documented as of this encounter
--- OUTSIDE RECORDS SUMMARY | 2024-04-06 21:55 | XMS_ITS | Encounter Summary ---
[facility] Address [address] [place] [id number] Care Team Providers Care Back End Engineer Name Role Phone Salima Gonzáles Primary Care Provider [phone] Reason for Visit * Reason Comments Flank Pain * Auth/Cert (Routine) Specialty Diagnoses / Procedures Referred By Contac t Referred To Contact Diagnoses Back pain Referral ID Status Reason Start Date Expiration Date Visits Re quested Visits Authorized [id number] 1 1 Encounter Details Date Type Department Care Team (Late st Contact Info) Description 01/26/2024 12:25 AM EDT - 01/27/2024 2:41 PM EDT Emergency [address] [place] [address] Kris Bird MD [address] [place] [address] Ambika Arreaga MD [address] [address] Pebbles Beauchamp DO [address] [address] Nabil Guerrero MD [address] [address] Hypotension due to hypovolemia (Primary Dx); Pyelonephritis Discharge Disposition: Home or Self Care Social History Tobacco Use Types Packs/Day Years Used Date Smoking Tobacco: Former Cigarettes 1 33.9 1 989 - 04/12/2022 Passive Smoke Exposure: Past Smokeless Tobacco: Never Alcohol Use Standard Drinks/Week Comments No 0 (1 standard drink = 0.6 oz pur e alcohol) Abuse Screen Answer Date Recorded Feels Unsafe at Home or Work/School no 01/26/2024 Feels Threatened by Someone no 01/06 Does Anyone Try to Keep You From Having Contact with Others or Doing Things Outside Your Home? no 01/26/2024 Physical Signs of Abuse Present no 01/26/2024 Housing Stability Answer Date Recorded Current Living [...] Sign Reading Time Taken Comments Blood Pressure 112/68 01/27/2024 12:08 PM EDT Pulse 56 01/27/2024 12:08 PM EDT Temperature 36.2 ??C (97.2 ??F) 01/27/2024 12:08 PM E DT Respiratory Rate 16 01/27/2024 12:08 PM EDT Oxygen Saturation 98% 01/27/2024 12:08 PM EDT Inhaled Oxygen Concentration - - Weight 109 kg (240 lb) 01/25/2024 11:41 PM EDT Height 154.9 cm (5' 1 ) 01/25/2024 11:41 PM EDT Body Mass Index 45.35 01/25/2024 11:41 PM EDT documented in this encounter Discharge Summaries * Jen Ojeda, [employer] - 01/27/2024 12:16 PM EDT Images from the original note were not included. [facility] Medicine Services DISCHARGE SUMMARY Patient Name: Neetu Doherty : 1965 Date of Admission: 01/26/2024 12:25 AM Date of Discharge: 01/27/2024 Primary Care Physician: Salima Gonzáles, Consults No orders found for last 30 day(s). Hospital Course Presenting Problem: back pain Active Hospital Problems No active problems to display. Resolved Hospital Problems Diagnosis Date Resolved POA ??? Back pain [M54.9] 01/27/2024 Yes Hospital Course: Neetu Doherty is a 58 y.o. female w DMII, HTN, hypothyroidism, depression/anxiety, psoriasis on Skyrizi, asthma/COPD who presented with back/abdominal pain, concern for UTI per prior OP testing. Patient's reported symptoms of abdominal cramping + lower back pain not clearly UTI given lack of dysuria/urgency, etc. No improvement after [address] shows no stone Back/abdominal pain Mildly elevated liver enzymes -Liver ultrasound reviewed- normal CBD -Hold statin for now- defer further management to PCP- repeat labs today show resolution Bacturia (per OSH-PCP report) -CT abdomen negative, no renal stone -unable to obtain PCP urine culture results. Patient called PCP office and doctor told her she was not able to get urine culture results over the weekend. -follow up cx here with normal rosa elena -- received 2 doses invanz/ zosyn inpatient. Change to augmentin to complete therapy BMI 45 Psoriatic arthritis on skyrizi Hypothyroidism - home synthroid DMII - diabetic diet, resume home meds HTN -BP low, hold Cozaar at discharge- follow up with pcp Discharge Follow Up Recommendations for outpatient labs/diagnostics: Pcp follow up this week Day of Discharge HPI: Feeling well. Requesting to go home. Sx resolved Review of Systems Gen- No fevers, chills CV- No chest pain, palpitations Resp- No cough, dyspnea GI- No N/V/D, abd pain Vital Signs: Temp: [97.2 ??F (36.2 ??C)-98 ??F (36.7 ??C)] 97.2 ??F (36.2 ??C) Heart Rate: [56-60] 56 Resp: [15-18] 16 BP: (99-112)/(59-68) 112/68 Physical Exam: Constitutional: No acute distress, awake, alert HENT: NCAT, mucous membranes moist Respiratory: Clear to auscultation bilaterally, respiratory effort normal Cardiovascular: RRR, no murmurs, rubs, or gallops Gastrointestinal: Positive bowel sounds, soft, nontender, nondistended Musculoskeletal: No bilateral ankle edema Psychiatric: Appropriate affect, cooperative Neurologic: Oriented x 3, strength symmetric in all extremities, Cranial Nerves grossly intact to confrontation, speech clear Skin: No rashes Pertinent and/or Most Recent Results LAB RESULTS: Lab 01/26/24 0038 WBC 11.38* HEMOGLOBIN 12.3 HEMATOCRIT 35.6 PLATELETS 349 NEUTROS ABS 6.93 IMMATURE GRANS (ABS) 0.15* LYMPHS ABS 3.48* MONOS ABS 0.65 EOS ABS 0.10 MCV 96.0 LACTATE 1.6 Lab 01/27/24 0605 01/26/24 0038 SODIUM 143 136 POTASSIUM 4.3 3.6 CHLORIDE 107 99 CO2 29.0 25.0 ANION GAP 7.0 12.0 BUN 18 18 CREATININE 0.98 1.02* EGFR 66.6 63.5 GLUCOSE 76 93 CALCIUM 8.4* 8.7 Lab 01/27/24 0605 01/26/24 0038 TOTAL PROTEIN 5.3* 6.5 ALBUMIN 3.4* 3.8 GLOBULIN 1.9 2.7 ALT (SGPT) 32 35* AST (SGOT) 22 80* BILIRUBIN 0.4 0.8 ALK PHOS 112 126* LIPASE -- 109* Brief Urine Lab Results (Last result in the past 365 days) Color Clarity Blood Leuk Est Nitrite Protein CREAT Urine HCG 01/25/24 2353 Yellow Cloudy Negative Large (3+) Negative Negative Microbiology Results (last 10 days) Procedure Component Value - Date/Time Blood Culture - Blood, Arm, Right [[id number]] (Normal) Collected: 01/26/24 0200 Lab Status: Preliminary result Specimen: Blood from Arm, Right Updated: 01/27/24 0700 Blood Culture No growth at 24 hours Blood Culture - Blood, Arm, Left [[id number]] (Normal) Collected: 01/26/24 0150 Lab Status: Preliminary result Specimen: Blood from Arm, Left Updated: 01/27/24 0700 Blood Culture No growth at 24 hours Urine Culture - Urine, Urine, Clean Catch [[id number]] Collected: 01/25/24 2353 Lab Status: Final result Specimen: Urine, Clean Catch Updated: 01/27/24 1127 Urine Culture 50,000 CFU/mL Normal Urogenital Rosa Elena Narrative: Colonization of the urinary tract without infection is common. Treatment is discouraged unless the patient is symptomatic, , or undergoing an invasive urologic procedure. US Liver Result Date: 01/26/2024 US LIVER Date of Exam: 01/26/2024 4:08 AM EDT Indication: ruq tenderness, no gallbladder but transam. comment on CBD size. Comparison: No comparisons available. Technique: Grayscale and color Doppler ultrasound evaluation of the right upper quadrant was performed. Findings: The liver is homogeneous.There are no focal liver lesions. The gallbladder is surgically absent. The common duct is 7 mm which is normal. The right kidney is 8.9 cm in [id number]-[id number]-hifa length and there is no hydronephrosis. There is a small exophytic cyst measuring about 2 cm. The pancreas is incompletely seen secondary to shadowing from overlying bowel gas. Impression: Normal common duct. Electronically Signed: Junior Boo MD 01/26/2024 5:13 AM EDT Workstation ID: [id number] CT Abdomen Pelvis Without Contrast Result Date: 01/26/2024 CT ABDOMEN PELVIS WO CONTRAST Date of Exam: 01/26/2024 12:47 AM EDT Indication: Right sided abdominal/flank pain. Comparison: None available. Technique: Axial CT images were obtained of the abdomen and pelvis without the administration of contrast. Reconstructed coronal and sagittal images were alsoobtained. Automated exposure control and iterative construction methods were used. Findings: Lung Bases: There are faint left lower lobe nodular airspace opacities suggestive of infectious process. 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 Liver: Liver is normal in size and CT density. No focal lesions. Biliary/Gallbladder: The gallbladder is surgically absent. The biliary tree is nondilated. Spleen: Spleen is normal in size and CT density. Pancreas: Pancreas is normal. There is no evidence of pancreatic mass or peripancreatic fluid. Kidneys: There is a 1.6 cm cyst of theinterpolar right kidney laterally. There is no hydronephrosis of either kidney. There is no convincing solid renal mass. Adrenals: Adrenal glands are unremarkable. Retroperitoneal/Lymph Nodes/Vasculat ure: No retroperitoneal adenopathy is identified. Gastrointestinal/Mesentery: The bowel loops are non-dilated without wall thickening or mass. The appendix appears within normal limits. No evidence of obstruction. No free air. No mesenteric fluid collections identified. There are bilateral fat-containing inguinal hernias. Bladder: The bladder is normal. Genital: Unremarkable Bony Structures: Visualized bony structures are consistent with the patient's age. Impression: 1.Faint left lower lobe nodular airspace opacities suggestive of infectious process. 2.No acute abdominal or pelvic abnormality. 3.Bilateral fat- containing inguinal hernias. Electronically Signed: Junior Boo MD 01/26/2024 1:44 AM EDT Workstation ID: [id number] Results for orders placed in visit on 02/08/23 Adult Transthoracic Echo Complete W/ Cont if Necessary Per Protocol Interpretation Summary ??? Left ventricular systolic function is normal. Left ventricular ejection fraction appears to be 66 - 70%. ??? Left ventricular wall thickness is consistent with borderline apical asymmetric hypertrophy. ??? No significant valvular regurgitation or stenosis present. ? ? Estimated right ventricular systolic pressure from tricuspid regurgitation is normal (<35 mmHg). Plan for Follow-up of Pending Labs/Results: Pending Labs Order Current Status Blood Culture - Blood, Arm, Left Preliminary result Blood Culture - Blood, Arm, Right Preliminary result Discharge Details Discharge Medications New Medications Instructions Start Date amoxicillin-clavulanate 875-125 MG per tablet Commonly known as: AUGMENTIN 1 tablet, Oral, 2 Times Daily Continue These Medications Instructions Start Date albuterol (2.5 MG/3ML) 0.083% nebulizer solution Commonly known as: PROVENTIL 2.5 mg, Nebulization, Every 4 Hours PRN albuterol sulfate HFA 108 (90 Base) MCG/ACT inhaler Commonly known as: PROVENTIL HFA;VENTOLIN HFA;PROAIR HFA 2 puffs, Inhalation, Every 6 Hours PRN budesonide-formoterol 80-4.5 MCG/ACT inhaler Commonly known as: Symbicort 2 puffs, Inhalation, 2 Times Daily - RT buPROPion SR 150 MG 12 hr tablet Commonly known as: WELLBUTRIN SR 1 tablet, Oral, 2 Times Daily cyanocobalamin 1000 MCG tablet Commonly known as: VITAMIN B-12 1,000 mcg, Oral, Daily cyclobenzaprine 10 MG tablet Commonly known as: FLEXERIL Take 1 tablet by mouth 3 (Three) Times a Day As Needed for Muscle Spasms. Diclofenac Sodium 1 % gel gel Commonly known as: VOLTAREN 4 g, Transdermal, 4 Times Daily Emgality 120 MG/ML auto-injector pen Generic drug: galcanezumab-gnlm INJECT 1 ML (120 MG) SUBCUTANEOUSLY ONCE a MONTH EPINEPHrine 0.3 MG/0.3ML solution auto-injector injection Commonly known as: EPIPEN epinephrine 0.3 mg/0.3 mL injection, auto-injector ferrous sulfate 325 (65 FE) MG tablet 325 mg, Oral, Daily FLUoxetine 40 MG capsule Commonly known as: PROzac 1 capsule, Oral, 2 Times Daily FreeStyle Niels 2 Sensor [facility] USE DIRECTED FOR CONTINUOUS GLUCOSE MONITORING furosemide 20 MG tablet Commonly known as: LASIX 1 tablet, Oral, Daily hydrOXYzine 10 MG tablet Commonly known as: ATARAX 1 tablet, Oral, As Needed hydrOXYzine pamoate 25 MG capsule Commonly known as: VISTARIL 1 capsule, Oral, As Needed ibuprofen 800 MG tablet Commonly known as: ADVIL,MOTRIN 400 mg, Oral, As Needed Januvia 100 MG tablet Generic drug: SITagliptin 1 tablet, Oral, Daily levothyroxine 125 MCG tablet Commonly known as: SYNTHROID, LEVOTHROID 1 tablet, Oral, Daily loratadine 10 MG tablet Commonly known as: CLARITIN 1 tablet, Oral, Daily montelukast 10 MG tablet Commonly known as: SINGULAIR 1 tablet, Oral, Every Evening multivitamin with minerals tablet tablet 1 tablet, Oral, Daily Nurtec 75 MG dispersible tablet Generic drug: Rimegepant Sulfate DISSOLVE ONE TABLET in MOUTH DIRECTED NEEDED FOR MIGRAINE pantoprazole 20 MG EC tablet Commonly known as: PROTONIX 1 tablet, Oral, 2 Times Daily polyethylene glycol 236 g solution Commonly known as: GoLYTELY potassium chloride 10 MEQ CR capsule Commonly known as: MICRO-K 1 capsule, Oral, Daily pregabalin 150 MG capsule Commonly known as: LYRICA 150 mg, Oral, 2 Times Daily Skyrizi Pen 150 MG/ML solution auto-injector Generic drug: Risankizumab-rzaa Stop These Medications losartan 100 MG tablet Commonly known as: COZAAR simvastatin 5 MG tablet Commonly known as: ZOCOR Allergies Allergen Reactions ??? Cefdinir Shortness Of Breath and Unknown (See Comments) Causes trouble breathing ??? Morphine And Codeine Hallucinations Discharge Disposition: Home or Self Care Diet: Hospital: Diet Order Procedures ??? Diet: Cardiac, Diabetic; Healthy Heart (2-3 Na+); Consistent Carbohydrate; Texture: Regular (IDDSI 7); Fluid Consistency: Thin (IDDSI 0) Diet Instructions Diet: Regular/House Diet, Cardiac Diets, Diabetic Diets; Healthy Heart (2-3 Na+); Thin (IDDSI 0); Consistent Carbohydrate Discharge Diet: Regular/House Diet Cardiac Diets Diabetic Diets Cardiac Diet: Healthy Heart (2-3 Na+) Fluid Consistency: Thin (IDDSI 0) Diabetic Diet: Consistent Carbohydrate Activity: Activity Instructions Activity as Tolerated Restrictions or Other Recommendations: CODE STATUS: Code Status and Medical Interventions: CPR (Attempt to Resuscitate); Full Support Ordered at: 01/26/24 0420 Level Of Support Discussed With: Patient Code Status (Patient has no pulse and is not breathing): CPR (Attempt to Resuscitate) Medical Interventions (Patient has pulse or is breathing): Full Support Future Appointments Date Time Provider Department Center 03/11/2024 10:30 AM Alea Juarez APRN [facility] Additional Instructions for the Follow-ups that You Need to Schedule Discharge Follow-up with PCP As directed Currently Documented PCP: Salima Gonzáles DO PCP Follow Up Details: 1 week Jen Ojeda APRN 01/27/24 Time Spent on Discharge: I spent 40 minutes on this discharge activity which included: [id number] with the patient, reviewing the data in the system, coordination of the care with the nursing staff as well as consultants, documentation, and entering orders. Electronically signed by Jen Ojeda APRN, 01/27/24, 12:16 PM EDT. Cosigned by Nabil Guerrero MD at 01/27/2024 12:22 PM EDT Associated attestation - Nabil Guerrero MD - 01/27/2024 12:22 PM EDT I have reviewed this documentation and agree. * Jacque Slater, OT - 01/27/2024 9:00 AM EDT Images from the original note were not included. Acute Care - Occupational Therapy Discharge [facility] Patient Name: Neetu Doherty : 1965 Today's Date: 01/27/2024 Admit Date: 01/26/2024 Visit Dx: ICD-10-CM ICD-9-CM 1. Hypotension due to hypovolemia E86.1 458.8 276.52 2. Pyelonephritis N12 590.80 Patient Active Problem List Diagnosis Precordial chest pain Shortness of breath Palpitations MAGDI (obstructive sleep apnea) Abnormal nuclear stress test Abnormal findings on diagnostic imaging of heart and coronary circulation Chronic obstructive pulmonary disease Mild CAD Back pain Past Medical History: Diagnosis Date Anxiety associated with depression Asthma Colitis 12/2022 COVID-19 05/2023 Diabetes GERD (gastroesophageal reflux disease) Hyperlipidemia Hypertension Hypothyroidism Migraines Psoriasis Past Surgical History: Procedure Laterality Date SECTION CHOLECYSTECTOMY CYST REMOVAL GANGLION CYST EXCISION GASTRIC BYPASS HEEL SPUR SURGERY Left HYSTERECTOMY KIDNEY STONE SURGERY KNEE SURGERY Bilateral TONSILLECTOMY General Information Row Name 01/27/2445 OT Time and Intention Document Type discharge evaluation/summary -JR Mode of Treatment occupational therapy -JR Row Name 01/27/24944 General Information Patient Profile Reviewed yes -JR Prior Level of Function independent:;gait;transfer;bed mobility;ADL's -JR Existing Precautions/Restrictions no known precautions/restrictions -JR Barriers to Rehab none identified -JR Row Name 01/27/24944 Occupational Profile Occupational History/Life Experiences (Occupational Profile) narrow tub shower -JR Row Name 01/27/24944 Living Environment People in Home alone -JR Row Name 01/27/24944 Home Main Entrance Number of Stairs, Main Entrance none -JR Row Name 09/22/24 0945 Stairs Within Home, Primary Number of Stairs, Within Home, Primary none - Row Name 01/27/24944 Cognition Orientation Status (Cognition) oriented x 4 - Row Name 01/27/24944 Safety Issues, Functional Mobility Impairments Affecting Function (Mobility) balance;endurance/activity tolerance;strength - User Gottlieb (r) = Recorded By, (t) = Taken By, (c) = Cosigned By Initials Name Provider Type Jacque Thorpe, OT Occupational Therapist Mobility/ADL's Row Name 01/27/24945 Bed Mobility Bed Mobility supine-sit - Supine-Sit [place] (Bed Mobility) modified independence - Assistive Device (Bed Mobility) head of bed elevated -[facility] Name 01/27/24945 Transfers Transfers sit-stand transfer -[facility] Name 01/27/24945 Sit-Stand Transfer Sit-Stand [place] (Transfers) standby assist - Assistive Device (Sit-Stand Transfers) other (see comments) none - Row Name 01/27/24945 Functional Mobility Functional Mobility- Ind. Level contact guard assist - Functional Mobility-Distance (Feet) -- in hallway - Functional Mobility- Comment Slight unsteadiness noted with mobility-defer to PT -[facility] Name 01/27/24945 Activities of Daily Living BADL Assessment/Intervention lower body dressing -[facility] 01/27/24945 Lower Body Dressing Assessment/Training [place] Level (Lower Body Dressing) don;socks;independent - Position (Lower Body Dressing) long sitting - User Gottlieb (r) = Recorded By, (t) = Taken By, (c) = Cosigned By Initials Name Provider Type Jacque Thorpe, OT Occupational Therapist Obj/Interventions Row Name 01/27/24946 Sensory Assessment (Somatosensory) Sensory Assessment (Somatosensory) UE sensation intact -[facility] Name 01/27/24946 Range of Motion Comprehensive General Range of Motion bilateral upper extremity ROM WFL -[facility] Name 01/27/24946 Strength Comprehensive (MMT) General Manual Muscle Testing (MMT) Assessment no strength deficits identified -[facility] Name 01/27/24946 Balance Balance Assessment sitting static balance;standing dynamic balance - Static Sitting Balance independent - Dynamic Standing Balance contact guard - User Gottlieb (r) = Recorded By, (t) = Taken By, (c) = Cosigned By Initials Name Provider Type Jacque Thorpe, OT Occupational Therapist Goals/Plan No documentation. Clinical Impression Row Name 01/27/24946 Pain Assessment Pretreatment Pain Rating 0/10 - no pain -JR Posttreatment Pain Rating 0/10 - no pain -JR Row Name 01/27/24946 Plan of Care Review Plan of Care Reviewed With patient -JR Outcome Evaluation OT initial eval and expanded chart review completed. Pt presents with multiple comoribidities, but appears at or near baseline with ADL's. Mild unsteadiness noted with mobility this date, will defer to PT. No further skilled OT services indicated at this time. Recommend home at d/c. -JR Row Name 01/27/24946 Therapy Assessment/Plan (OT) Patient/Family Therapy Goal Statement (OT) get back to exercising - Criteria for Skilled Therapeutic Interventions Met (OT) no;no problems identified which require skilled intervention -JR Therapy Frequency (OT) evaluation only -JR Predicted Duration of Therapy Intervention (OT) 1 day -JR Row Name 01/27/24946 Therapy Plan Review/Discharge Plan (OT) Anticipated Discharge Disposition (OT) home -JR Row Name 01/27/24946 Vital Signs Pre Patient Position Supine -JR Intra Patient Position Standing -JR Post Patient Position Sitting -JR [facility] Name 01/27/24946 Positioning and Restraints Pre-Treatment Position in bed -JR Post Treatment Position chair -JR In Chair notified nsg;reclined;call light within reach;encouraged to call for assist -JR User Gottlieb (r) = Recorded By, (t) = Taken By, (c) = Cosigned By Initials Name Provider Type Jacque Thorpe, OT Occupational Therapist Outcome Measures Row Name 01/27/24 09 How much help from another is currently needed... Putting on and taking off regular lower body clothing? 4 -JR Bathing (including washing, rinsing, and drying) 4 -JR Toileting (which includes using toilet bed quezada or urinal) 4 -JR Putting on and taking off regular upper body clothing 4 -JR Taking care of personal grooming (such as brushing teeth) 4 -JR Eating meals 4 -JR AM-PAC 6 Clicks Score (OT) 24 -JR Row Name 01/27/24 08 How much help from another person do you currently need... Turning from your back to your side while in flat bed without using bedrails? 4 -MA Moving from lying on back to sitting on the side of a flat bed without bedrails? 4 -MA Moving to and from a bed to a chair (including a wheelchair)? 4 -MA Standing up from a chair using your arms (e.g., wheelchair, bedside chair)? 4 -MA Climbing 3-5 steps with a railing? 4 -MA To walk in hospital room? 4 -MA AM-PAC 6 Clicks Score (PT) 24 -MA Highest Level of Mobility Goal 8 --> Walked 250 feet or more -MA Row Name 01/27/24 0949 Functional Assessment Outcome Measure Options AM-PAC 6 Clicks Daily Activity (OT) - User Gottlieb (r) = Recorded By, (t) = Taken By, (c) = Cosigned By Initials Name Provider Type Jacque Thorpe OT Occupational Therapist Chai Angel, RN Registered Nurse Occupational Therapy Education Title: PT OT WEB PRODUCER Therapies (In Progress) Topic: Occupational Therapy (In Progress) Point: ADL training (Done) Description: Instruct learner(s) on proper safety adaptation and remediation techniques during self care or transfers. Instruct in proper use of assistive devices. Learning Progress Summary Patient Acceptance, E, VU by at 01/27/2024 0900 Comment: role of therapy Point: Home exercise program (Not Started) Description: Instruct learner(s) on appropriate technique for monitoring, assisting and/or progressing therapeutic exercises/activities. Learner Progress: Not documented in this visit. Point: Precautions (Not Started) Description: Instruct learner(s) on prescribed precautions during self-care and functional transfers. Learner Progress: Not documented in this visit. Point: Body mechanics (Not Started) Description: Instruct learner(s) on proper positioning and spine alignment during self-care, functional mobilityactivities and/or exercises. Learner Progress: Not documented in this visit. User Gottlieb Initials Effective Dates Name Provider Type Grayson NG 06/09/22 - Jacque Slater OT Occupational Therapist OT OT Recommendation and Plan Therapy Frequency (OT): evaluation only Plan of Care Review Plan of Care Reviewed With: patient Outcome Evaluation: OT initial eval and expanded chart review completed. Pt presents with multiple comoribidities, but appears at or near baseline with ADL's. Mild unsteadiness noted with mobility this date, will defer to PT. No further skilled OT services indicated at this time. Recommend home at d/c. Plan of Care Reviewed With: patient Outcome Evaluation: OT initial eval and expanded chart review completed. Pt presents with multiple comoribidities, but appears at or near baseline with ADL's. Mild unsteadiness noted with mobility this date, will defer to PT. No further skilled OT services indicated at this time. Recommend home at d/c. Time Calculation: Evaluation Complexity (OT) Review Occupational Profile/Medical/Therapy History Complexity: expanded/moderate complexity Assessment, Occupational Performance/Identification of Deficit Complexity: 1-3 performance deficits Clinical Decision Making Complexity (OT): detailed assessment/moderate complexity Overall Complexity of Evaluation (OT): low complexity Time Calculation- OT Row Name 01/27/24 0951 Time Calculation- OT OT Start Time 0900 -JR OT Received On 01/27/24 -JR Untimed Charges OT Eval/Re-eval Minutes 31 -JR Total Minutes Untimed Charges Total Minutes 31 -JR Total Minutes 31 -JR User Gottlieb (r) = Recorded By, (t) = Taken By, (c) = Cosigned By Initials Name Provider Type Jacque Slater OT Occupational Therapist Therapy Charges for Today Code Description Service Date Service Provider Modifiers Qty [id number] OT EVAL LOW COMPLEXITY 3 01/27/2024 Jacque Slater OT GO 1 OT Discharge Summary Anticipated Discharge Disposition (OT): home Reason for Discharge: At baseline function Outcomes Achieved: Refer to plan of care for updates on goals achieved Discharge Destination: Home Jacque Slater OT 01/27/2024 documented in this encounter Discharge Instructions * Attachments The following attachments cannot be sent through Care Everywhere. * Amoxicillin; Clavulanic Acid Tablets (Ethiopian) * Urinary Tract Infection Adult (Ethiopian) * Acute Back Pain Adult (Ethiopian) documented in this encounter Medications at Time of Discharge albuterol (PROVENTIL) (2.5 MG/3ML) 0.083% nebulizer solution Take 2.5 mg by nebulization Every 4 (Four) Hours As Needed for Wheezing. albuterol sulfate HFA 108 (90 Base) MCG/ACT inhaler Inhale 2 puffs Every 6 (Six) Hours As Needed. amoxicillin-clav ulanate (AUGMENTIN) 875-125 MG per tablet Take 1 tablet by mouth 2 (Two) Times a Day. 4 tablet 01/27/2024 12:49 PM EDT 01/27/2024 budesonide-formo terol (Symbicort) 80-4.5 MCG/ACT inhalerIndicatio ns:Shortness of breath Inhale 2 puffs 2 (Two) Times a Day. 6.9 g 12 08/01/2023 buPROPion SR (WELLBUTRIN SR) 150 MG 12 hr tablet Take 1 tablet by mouth 2 (Two) Times a Day. Continuous Blood Gluc Sensor (One PublicStyle Niels 2 Sensor) [facility] [place]ED FOR CONTINUOUS GLUCOSE MONITORING 01/23/2023 cyanocobalamin (VITAMIN B-12) 1000 MCG tablet Take 1 tablet by mouth Daily. cyclobenzaprine (FLEXERIL) 10 MG tablet Take 1 tablet by mouth 3 (Three) Times a Day As Needed for Muscle Spasms. Diclofenac Sodium (VOLTAREN) 1 % gel gel Place 4 g on the skin as directed by provider 4 (Four) Times a Day. Emgality 120 MG/ML auto-injector pen INJECT 1 ML (120 MG) SUBCUTANEOUSLY ONCE a MONTH 11/13/2022 EPINEPHrine (EPIPEN) 0.3 MG/0.3ML solution auto-injector injection epinephrine 0.3 mg/0.3 mL injection, auto-injector ferrous sulfate 325 (65 FE) MG tablet Take 1 tablet by mouth Daily. FLUoxetine (PROzac) 40 MG capsule Take 1 capsule by mouth 2 (Two) Times a Day. furosemide (LASIX) 20 MG tablet Take 1 tablet by mouth Daily. 03/15/2023 hydrOXYzine (ATARAX) 10 MG tablet Take 1 tablet by mouth As Needed. hydrOXYzine pamoate (VISTARIL) 25 MG capsule Take 1 capsule by mouth As Needed. ibuprofen (ADVIL,MOTRIN) 800 MG tablet Take 0.5 tablets by mouth As Needed. levothyroxine (SYNTHROID, LEVOTHROID) 125 MCG tablet Take 1 tablet by mouth Daily. loratadine (CLARITIN) 10 MG tablet Take 1 tablet by mouth Daily. montelukast (SINGULAIR) 10 MG tablet Take 1 tablet by mouth Every Evening. multivitamin with minerals tablet tablet Take 1 tablet by mouth Daily. Nurtec 75 MG dispersible tablet DISSOLVE ONE TABLET in MOUTH DIRECTED NEEDED FOR MIGRAINE 10/16/2022 pantoprazole (PROTONIX) 20 MG EC tablet Take 1 tablet by mouth 2 (Two) Times a Day. polyethylene glycol (GoLYTELY) 236 g solution potassium chloride (MICRO-K) 10 MEQ CR capsule Take 1 capsule by mouth Daily. 03/15/2023 pregabalin (LYRICA) 150 MG capsule Take 1 capsule by mouth 2 (Two) Times a Day. SITagliptin (Januvia) 100 MG tablet Take 1 tablet by mouth Daily. Skyrizi Pen 150 MG/ML solution auto-injector 11/02/2022 documented as of this encounter Progress Notes * Pebbles Beauchamp, DO - 01/26/2024 7:01 AM EDT Images from the original note were not included. [facility] Medicine Services ADMISSION FOLLOW-UP NOTE Patient admitted after midnight, H&P by my partner performed earlier on today's date reviewed. Interim findings, labs, and charting also reviewed. [facility] Hospital Problem List has been managed and updated to include any new diagnoses: Active Hospital Problems Diagnosis POA Back pain [M54.9] Yes Resolved Hospital Problems No resolved problems to display. ADDITIONAL PLAN: - detailed assessment and plan from admission reviewed -58-year-old female w DMII, HTN, hypothyroidism, depression/anxiety, psoriasis on Skyrizi, asthma/COPD who presented with back/abdominal pain, concern for UTI per prior OP testing. Patient's reported symptoms of abdominal cramping + lower back pain not clearly UTI given lack of dysuria/urgency, etc. No improvement after [address] shows no stone Back/abdominal pain Mildly elevated liver enzymes -Liver ultrasound reviewed -Hold statin for now Bacturia (per OSH-PCP report) -CT abdomen negative, no renal stone -unable to obtain PCP urine culture results. Patient called PCP office and doctor told her she was not able to get urine culture results over the weekend. Will wait for urine culture to result here prior to DC BMI 45 Psoriatic arthritis on skyrizi Hypothyroidism - home synthroid DMII - diabetic diet HTN -BP low, hold Cozaar Expected Discharge Expected Discharge Date: 01/27/2024; Expected Discharge Time: Pebbles Beauchamp DO 01/26/24 documented in this encounter H&P Notes * Ambika Arreaga MD - 01/26/2024 4:03 AM EDT Images from the original note were not included. [facility] Medicine Services HISTORY AND PHYSICAL Patient Name: Neetu Doherty : 1965 Primary Care Physician: Salima Gonzáles DO Date of admission: 01/26/2024 Subjective Subjective Chief Complaint: back/abdominal pain HPI: Neetu Doherty is a 58 y.o. female w DMII, HTN, hypothyroidism, depression/anxiety, psoriasis on Skyrizi, asthma/COPD who presented with back/abdominal pain, concern for UTI per prior OP testing. Patient reports 2-3 weeks of back pain symptoms. Sometimes associated with lower abdomen pain and cramping. Some nausea, vomiting x1 a few days ago, decreased appetite. No diarrhea. No dysuria, no increased urinary urgency. She reports this feels like her prior kidney stones. She was diagnosed at [facility] 2 weeks ago with UTI in setting of these symptoms, put on levaquin at that time with no improvement in symptoms. Went to [facility] ER last week with back pain treated with toradol and flexeril. Then seen by PCP 8 days ago, put on azithromycin, with initial improvement in symptoms then return of symptoms. She was called by her PCP 01/24 and told her urine culture showed resistance to azithromycin and was switched to macrobid. Patient took 2 doses of macrobid and returned to work. Tonight, pain too severe prompting presentation here. Pain reported in lower abdomen with cramping and throughout middle area of back. Worse with movements, with oral intake, like someone is squeezing my organs. No initial triggering event. Since start 2 weeks ago, has been persistently present, does not appear to be actively escalating but still present. No saddle anesthesia, no leg weakness or numbness. Regular bowel pattern without diarrhea or constipation, BM today Recently prescribed hydrocodone x 5 days on 01/17. Personal History Past Medical History: Diagnosis Date Anxiety associated with depression Asthma Colitis 12/2022 COVID-19 05/2023 Diabetes GERD (gastroesophageal reflux disease) Hyperlipidemia Hypertension Hypothyroidism Migraines Psoriasis Past Surgical History: Procedure Laterality Date SECTION CHOLECYSTECTOMY CYST REMOVAL GANGLION CYST EXCISION GASTRIC BYPASS HEEL SPUR SURGERY Left HYSTERECTOMY KIDNEY STONE SURGERY KNEE SURGERY Bilateral TONSILLECTOMY Family History: family history includes Diabetes in her father and mother; Hypertension in her father and mother; Multiple sclerosis in her sister. Social History: reports that she quit smoking about 21 months ago. Her smoking use included cigarettes. She started smoking about 35 years ago. She has a 33.9 pack-year smoking history. She has been exposed to tobacco smoke. She has never used smokeless tobacco. She reports that she does not drink alcohol and does not use drugs. Social History Social History Narrative Not on file Medications: Available home medication information reviewed. Diclofenac Sodium, EPINEPHrine, FLUoxetine, FreeStyle Inels 2 Sensor, Rimegepant Sulfate, Risankizumab-rzaa, SITagliptin, albuterol, albuterol sulfate HFA, buPROPion SR, budesonide-formoterol, cyanocobalamin, cyclobenzaprine, ferrous sulfate, furosemide, galcanezumab-gnlm, hydrOXYzine, hydrOXYzine pamoate, ibuprofen, levothyroxine, loratadine, losartan, montelukast, multivitamin with minerals, pantoprazole, polyethylene glycol, potassium chloride, pregabalin, and simvastatin Allergies Allergen Reactions Cefdinir Shortness Of Breath and Unknown (See Comments) Causes trouble breathing Morphine And Codeine Hallucinations Objective Objective Vital Signs: Temp: [98 ??F (36.7 ??C)-98.3 ??F (36.8 ??C)] 98.3 ??F (36.8 ??C) Heart Rate: [60-79] 60 Resp: [18] 18 BP: (69-120)/(31-90) 102/60 Physical Exam Constitutional: Awake, alert female sitting up in bed, mildly uncomfortable appearing Eyes: PERRLA, sclerae anicteric, no conjunctival injection HENT: NCAT, mucous membranes moist Neck: Supple, no thyromegaly, no lymphadenopathy, trachea midline Respiratory: Clear to auscultation bilaterally, nonlabored respirations Cardiovascular: RRR, no murmurs, rubs, or gallops, palpable pedal pulses bilaterally Gastrointestinal: +RUQ tenderness to palpation, Positive bowel sounds, soft, otherwise nontender, nondistended. No CV angle tenderness Musculoskeletal: Ttp on right-sided paraspinal muscles in thoracic area, no bony tenderness in spine. Psychiatric: Appropriate affect, cooperative Neurologic: Oriented x 3, strength symmetric in all extremities, Cranial Nerves grossly intact to confrontation, speech clear Skin: No rashes Result Review: I have personally reviewed the results from the time of this admission to 01/26/2024 04:22 EDT and agree with these findings: [x] Laboratory list / accordion [] Microbiology [x] Radiology [] EKG/Telemetry [] Cardiology/Vascular [] Pathology [] Old records [] Other: Most notable findings include: LAB RESULTS: Lab 01/26/24 0038 WBC 11.38* HEMOGLOBIN 12.3 HEMATOCRIT 35.6 PLATELETS 349 NEUTROS ABS 6.93 IMMATURE GRANS (ABS) 0.15* LYMPHS ABS 3.48* MONOS ABS 0.65 EOS ABS 0.10 MCV 96.0 LACTATE 1.6 Lab 01/26/24 0038 SODIUM 136 POTASSIUM 3.6 CHLORIDE 99 CO2 25.0 ANION GAP 12.0 BUN 18 CREATININE 1.02* EGFR 63.5 GLUCOSE 93 CALCIUM 8.7 Lab 01/26/24 0038 TOTAL PROTEIN 6.5 ALBUMIN 3.8 GLOBULIN 2.7 ALT (SGPT) 35* AST (SGOT) 80* BILIRUBIN 0.8 ALK PHOS 126* LIPASE 109* UA 01/25/2024 23:53 Urinalysis Squamous Epithelial Cells, UA 3-6 Specific [place], UA 1.013 Ketones, UA Negative Blood, UA Negative Leukocytes, UA Large (3+) Nitrite, UA Negative RBC, UA 0-2 WBC, UA 21-50 Bacteria, UA None Seen Microbiology Results (last 10 days) No results found for the last [address] Abdomen Pelvis Without Contrast Result Date: 01/26/2024 CT ABDOMEN PELVIS WO CONTRAST Date of Exam: 01/26/2024 12:47 AM EDT Indication: Right sided abdominal/flank pain. Comparison: None available. Technique: Axial CT images were obtained of the abdomen and pelvis without the administration of contrast. Reconstructed coronal and sagittal images were alsoobtained. Automated exposure control and iterative construction methods were used. Findings: Lung Bases: There are faint left lower lobe nodular airspace opacities suggestive of infectious process. 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 Liver: Liver is normal in size and CT density. No focal lesions. Biliary/Gallbladder: The gallbladder is surgically absent. The biliary tree is nondilated. Spleen: Spleen is normal in size and CT density. Pancreas: Pancreas is normal. There is no evidence of pancreatic mass or peripancreatic fluid. Kidneys: There is a 1.6 cm cyst of theinterpolar right kidney laterally. There is no hydronephrosis of either kidney. There is no convincing solid renal mass. Adrenals: Adrenal glands are unremarkable. Retroperitoneal/Lymph Nodes/Vasculat ure: No retroperitoneal adenopathy is identified. Gastrointestinal/Mesentery: The bowel loops are non-dilated without wall thickening or mass. The appendix appears within normal limits. No evidence of obstruction. No free air. No mesenteric fluid collections identified. There are bilateral fat-containing inguinal hernias. Bladder: The bladder is normal. Genital: Unremarkable Bony Structures: Visualized bony structures are consistent with the patient's age. Impression: Impression: 1.Faint left lower lobe nodular airspace opacities suggestive of infectiousprocess. 2.No acute abdominal or pelvic abnormality. 3.Bilateral fat-containing inguinal hernias. Electronically Signed: Junior Boo MD 01/26/2024 1:44 AM EDT Workstation ID: [id number] Results for orders placed in visit on 02/08/23 Adult Transthoracic Echo Complete W/ Cont if Necessary Per Protocol Interpretation Summary Left ventricular systolic function is normal. Left ventricular ejection fraction appears to be 66 -70%. Left ventricular wall thickness is consistent with borderline apical asymmetric hypertrophy. No significant valvular regurgitation or stenosis present. Estimated right ventricular systolic pressure from tricuspid regurgitation is normal (<35 mmHg). Assessment & Plan Assessment & Plan Back pain Neetu Doherty is a 58 y.o. female w DMII, HTN, hypothyroidism, depression/anxiety, psoriasis on Skyrizi, asthma/COPD who presented with back/abdominal pain, concern for UTI per prior OP testing. Patient's reported symptoms of abdominal cramping + lower back pain not clearly UTI given lack of dysuria/urgency, etc. No improvement after 2 doses of macrobid which was appropriate per susceptibilities (not currently available to me). Wonder about MSK etiology to pain Back/abdominal pain Mildly elevated liver enzymes Bacturia (per OSH-PCP report) -some features of MSK pain, others more abdominal. Appears some component of chronic back pain given prior episodes + pregabalin use -CT abdomen rules out renal stone -obtain RUQ u/s, patient s/p cholecystectomy reassuringly -unable to obtain PCP urine culture results in middle of night. Patient reports she can call doctorfor them in AM. Called both OSH-EDs w no urine sample at one hospital and other showing mixed florac/w contaminant. Given she was put on macrobid and discussion of resistant organism, suspect ESBL organism so will start ertapanem pending final results BMI 45 Psoriatic arthritis on skyrizi COPD on room air - home inhalers Hypothyroidism - home synthroid DMII - diabetic diet HTN - home meds Overall - macrobid will work on patient's bacturia. Pain appears more MSK in nature and less abdominal. Will obtain liver u/s to complete w/u given focal tenderness + AST/ALT elev there. VTE Prophylaxis: Pharmacologic VTE prophylaxis orders are signed & held. CODE STATUS: Code Status and Medical Interventions: CPR (Attempt to Resuscitate); Full Support Ordered at: 01/26/24 0420 Level Of Support Discussed With: Patient Code Status (Patient has no pulse and is not breathing): CPR (Attempt to Resuscitate) Medical Interventions (Patient has pulse or is breathing): Full Support Expected Discharge Expected Discharge Date: 01/26/2024; Expected Discharge Time: Ambika Arreaga MD 01/26/24 documented in this encounter Nursing Notes * Chai Martinez, RN - 01/27/2024 2:17 PM EDT Problem: Adult Inpatient Plan of Care Goal: Optimal Comfort and Wellbeing Outcome: Ongoing, Progressing Intervention: Provide Person-Centered Care Recent Flowsheet Documentation Taken 01/27/2024 0800 by Chai Martinez, RN Trust Relationship/Rapport: care explained choices provided Goal Outcome Evaluation: Plan of Care Reviewed With: patient Progress: improving Pain reports pain and nausea is much better today. Tolerating PO. BM today. Voiding spontaneously. Ambulating. No complaints; ready to go home * Gabby Pratt, PT - 01/27/2024 9:02 AM EDT Goal Outcome Evaluation: Plan of Care Reviewed With: patient Progress: improving Outcome Evaluation: Patient increased her ambulation distance compared to last session but demonstrated some unsteadiness. She required CGA to ambulate with a few episodes of minor LOB- no increased assist needed to correct. Will continue to progress as tolerated. Anticipated Discharge Disposition (PT): home with home health * Jacque Slater OT - 01/27/2024 9:00 AM EDT Goal Outcome Evaluation: Plan of Care Reviewed With: patient Outcome Evaluation: OT initial eval and expanded chart review completed. Pt presents with multiple comoribidities, but appears at or near baseline with ADL's. Mild unsteadiness noted with mobility this date, will defer to PT. No further skilled OT services indicated at this time. Recommend home at d/c. Anticipated Discharge Disposition (OT): home * Chanelle Marte RN - 01/27/2024 3:24 AM EDT Goal Outcome Evaluation: Pt has slept excellent throughout the night. PRN toradol given once for pain at beginning of shift. No reports of nausea. Pt remains on room air. Vital signs stable. No new changes. Plan of care ongoing. * Chai Martinez RN - 01/26/2024 4:38 PM EDT Problem: Pain Acute Goal: Acceptable Pain Control and Functional Ability Intervention: Develop Pain Management Plan Recent Flowsheet Documentation Taken 01/26/2024 1600 by Abshear, Chai N, home health aid Interventions: medication offered but refused Taken 01/26/2024 1400 by Chai Martinez, home health aid Interventions: see MAR Taken 01/26/2024 1003 by Chai Martinez, home health aid Interventions: see MAR Goal Outcome Evaluation: Pain management ongoing. Nausea intermittent. Up ad lucian. Awaiting culture results * Irene Marroquin, PT - 01/26/2024 10:19 AM EDT Goal Outcome Evaluation: Plan of Care Reviewed With: patient Progress: no change Outcome Evaluation: PT initial evaluation complete. Pt presents with decreased activity tolerance, decreased balance, and pain this date. Pt ambulated OOR for 150 ft w/o any AD and CGAx1 for stability. Pt ambulated with wide LOLA, downward gaze, decreased gait speed, and increased trunk sway this date. Pt would benefit from continued skilled therapy while hospitalized in order to progress to PLOF. D/c rec is home w/ home health Anticipated Discharge Disposition (PT): home with home health * Chanelle Marte RN - 01/26/2024 6:17 AM EDT Goal Outcome Evaluation: Pt arrived to floor at 0500. Pt had reports of pain and and nausea. PRN zofran, flexeril and tylenol given. Pt is up ad lucian. Room air. VSS. A&O x4. Plan of care ongoing. Call light in reach and bed in lowest position. documented in this encounter ED Notes * Sydnee Orlando RN - 01/26/2024 4:08 AM EDT Neetu Doherty Nursing Report ED to Floor: Mental status: A & O x4 Ambulatory status: Ambulatory, Standby assist Oxygen Therapy: Room Air Cardiac Rhythm: Sinus David Admitted from: Home Safety Concerns: Fall Risk Social Issues: None ED Room #: 14 ED Nurse Phone Extension - [phone] or may call [phone]. HPI: Chief Complaint Patient presents with Flank Pain Past Medical History: Past Medical History: Diagnosis Date Anxiety associated with depression Asthma Colitis 12/2022 COVID-19 05/2023 Diabetes GERD (gastroesophageal reflux disease) Hyperlipidemia Hypertension Hypothyroidism Migraines Psoriasis Past Surgical History: Past Surgical History: Procedure Laterality Date SECTION CHOLECYSTECTOMY CYST REMOVAL GANGLION CYST EXCISION GASTRIC BYPASS HEEL SPUR SURGERY Left HYSTERECTOMY KIDNEY STONE SURGERY KNEE SURGERY Bilateral TONSILLECTOMY Admitting Doctor: Ambika Arreaga MD Consulting Provider(s): Consults No orders found from 12/28/2023 to 01/27/2024. Admitting Diagnosis: The primary encounter diagnosis was Hypotension due to hypovolemia. A diagnosis of Pyelonephritis was also pertinent to this visit. Most Recent Vitals: Vitals: 01/26/24 0328 01/26/24 0340 01/26/24 0350 01/26/24 0400 BP: (S) 108/68 95/45 98/70 (!) 87/36 BP Location: (S) Right arm Patient Position: Lying Pulse: 62 60 Resp: Temp: TempSrc: SpO2: 98% 91% Weight: Height: Active LDAs/IV Access: Lines, Drains & Airways Active LDAs Name Placement date Placement time Site Days Peripheral IV 01/26/24 0118 Posterior;Right Hand 01/26/24 0118 Hand less than 1 Labs (abnormal labs have a star): Labs Reviewed URINALYSIS W/ MICROSCOPIC IF INDICATED (NO CULTURE) - Abnormal; Notable for the following components: Result Value Appearance, UA Cloudy (*) Leuk Esterase, UA Large (3+) (*) All other components within normal limits COMPREHENSIVE METABOLIC PANEL - Abnormal; Notable for the following components: Creatinine 1.02 (*) ALT (SGPT) 35 (*) AST (SGOT) 80 (*) Alkaline Phosphatase 126 (*) All other components within normal limits Narrative: GFR Normal >60 Chronic Kidney Disease <60 Kidney Failure <15 LIPASE - Abnormal; Notable for the following components: Lipase 109 (*) All other components within normal limits CBC WITH AUTO DIFFERENTIAL - Abnormal; Notable for the following components: WBC 11.38 (*) RBC 3.71 (*) MCH 33.2 (*) Immature Grans % 1.3 (*) Lymphocytes, Absolute 3.48 (*) Immature Grans, Absolute 0.15 (*) All other components within normal limits URINALYSIS, MICROSCOPIC ONLY - Abnormal; Notable for the following components: WBC, UA 21-50 (*) Squamous Epithelial Cells, UA 3-6 (*) All other components within normal limits LACTIC ACID, PLASMA - Normal BLOOD CULTURE BLOOD CULTURE URINALYSIS W/ CULTURE IF INDICATED URINALYSIS W/ CULTURE IF INDICATED CK CBC AND DIFFERENTIAL Narrative: The following orders were created for panel order CBC & Differential. Procedure Abnormality Status --------- ------ CBC Auto Differential[[id number]] Abnormal Final result Please view results for these tests on the individual orders. Meds Given in ED: Medications sodium chloride 0.9 % flush 10 mL (has no administration in time range) ertapenem (INVanz) 1,000 mg in sodium chloride 0.9 % 100 mL MBP (has no administration in time range) ketorolac (TORADOL) injection 15 mg (has no administration in time range) ondansetron (ZOFRAN) injection 4 mg (has no administration in time range) lactated ringers bolus 1,000 mL (0 mL Intravenous Stopped 01/26/24 0203) ketorolac (TORADOL) injection 15 mg (15 mg Intravenous Given 01/26/24 0121) ondansetron (ZOFRAN) injection 4 mg (4 mg Intravenous Given 01/26/24 0119) piperacillin-tazobactam (ZOSYN) 3.375 g IVPB in 100 mL NS MBP (CD) (0 g Intravenous Stopped ) sodium chloride 0.9 % bolus 1,000 mL (0 mL Intravenous Stopped 01/26/24 0407) Last NIH score: Dysphagia screening results: [place] Coma Scale: No data recorded CIWA: Restraint Type: Isolation Status: No active isolations * Kris Bird MD - 01/25/2024 11:51 PM EDTAssociated Order(s): Critical Care Subjective History of Present Illness Patient presents for evaluation of right sided lower abdominal pain radiating to the right flank. The symptoms have been present for about a week and a half. She has had 2 previous ER visits and a couple of primary care doctor appointments. She has had lab and CT scans performed. She states she hasbeen diagnosed with urinary tract infection on these occasions. She was initially started on Levaquin, then switched to azithromycin, and then switched to Macrobid. Her symptoms been waxing and waning where they get better for couple days but now are worse again. No objective fevers. She has nauseawithout vomiting. History provided by: Patient Review of Systems Past Medical History: Diagnosis Date Anxiety associated with depression Asthma Colitis 12/2022 COVID-19 05/2023 Diabetes GERD (gastroesophageal reflux disease) Hyperlipidemia Hypertension Hypothyroidism Migraines Psoriasis Allergies Allergen Reactions Cefdinir Shortness Of Breath and Unknown (See Comments) Causes trouble breathing Morphine And Codeine Hallucinations Past Surgical History: Procedure Laterality Date SECTION CHOLECYSTECTOMY CYST REMOVAL GANGLION CYST EXCISION GASTRIC BYPASS HEEL SPUR SURGERY Left HYSTERECTOMY KIDNEY STONE SURGERY KNEE SURGERY Bilateral TONSILLECTOMY Family History Problem Relation Age of Onset Hypertension Mother Diabetes Mother Hypertension Father Diabetes Father Multiple sclerosis Sister Social History Socioeconomic History Marital status: Number of children: 2 Tobacco Use Smoking status: Former Current packs/day: 0.00 Average packs/day: 1 pack/day for 33.9 years (33.9 ttl pk-yrs) Types: Cigarettes Start date: 1988 Quit date: 04/12/2022 Years since quittin.7 Passive exposure: Past Smokeless tobacco: Never Vaping Use Vaping status: Every Day Start date: 04/27/2022 Substances: Flavoring Devices: Disposable Passive vaping exposure: Yes Substance and Sexual Activity Alcohol use: No Drug use: No Sexual activity: Defer Objective Physical Exam Constitutional: General: She is not in acute distress. HENT: Head: Normocephalic and atraumatic. Eyes: Conjunctiva/sclera: Conjunctivae normal. Pupils: Pupils are equal, round, and reactive to light. Cardiovascular: Rate and Rhythm: Normal rate and regular rhythm. Pulses: Normal pulses. Heart sounds: No murmur heard. No gallop. Pulmonary: Effort: Pulmonary effort is normal. No respiratory distress. Abdominal: General: Abdomen is flat. There is no distension. Tenderness: There is abdominal tenderness. There is no right CVA tenderness, left CVA tenderness, guarding or rebound. Comments: Mild right upper and right lower abdominal pain Musculoskeletal: General: No swelling or deformity. Normal range of motion. Skin: General: Skin is warm and dry. Capillary Refill: Capillary refill takes less than 2 seconds. Neurological: General: No focal deficit present. Mental Status: She is alert and oriented to person, place, and time. Psychiatric: Mood and Affect: Mood normal. Behavior: Behavior normal. Critical Care Performed by: Kris Bird MD Authorized by: Kris Bird MD Critical care provider statement: Critical care time (minutes): 40 Critical care time was exclusive of: Separately billable procedures and treating other patients Critical care was necessary to treat or prevent imminent or life-threatening deterioration of the following conditions: Dehydration Critical care was time spent personally by me on the following activities: Development of treatmentplan with patient or surrogate, discussions with consultants, evaluation of patient's response to treatment, examination of patient, obtaining history from patient or surrogate, ordering and performing treatments and interventions, ordering and review of laboratory studies, ordering and review of radiographic studies, pulse oximetry, re-evaluation of patient's condition and review of old charts I assumed direction of critical care for this patient from another provider in my specialty: no Care discussed with: admitting provider ED Course ED Course as of 01/26/24 0245 Sat Jan 26, 2024 0244 Laboratory workup independently interpreted by myself is notable for evidence of urinary tractinfection, elevated liver enzymes, leukocytosis [KB] 0244 CT scan of the abdomen and pelvis independently interpreted by myself demonstrates bilateral small inguinal hernias, no acute intra-abdominal abnormality, possible pneumonia seen on lower lung field [KB] ED Course User Index [KB] Kris Bird MD Medical Decision Making Differential diagnosis includes urinary tract infection, appendicitis, cholecystitis, kidney stone,colitis. Lab and imaging studies were conducted. 1 L IV fluid bolus, 4 mg IV Zofran, 15 mg IV Toradol for pain relief. Patient had 1 episode of hypotension that resolved with ongoing IV fluid resuscitation. With identification of urinary tract infection patient was started on IV Zosyn. Unfortunately I do not have results from outpatient urine culture at this time. She will be admitted for further management Problems Addressed: Hypotension due to hypovolemia: complicated acute illness or injury with systemic symptoms that poses a threat to life or bodily functions Pyelonephritis: complicated acute illness or injury with systemic symptoms that poses a threat to life or bodily functions Amount and/or Complexity of Data Reviewed External Data Reviewed: notes. Details: 11/07/2021 reviewed most recent discharge summary when patient was hospitalized for small bowel obstruction Labs: ordered. Decision-making details documented in ED Course. Radiology: ordered and independent interpretation performed. Decision-making details documented in ED Course. Discussion of management or test interpretation with external provider(s): Hospital medicine consulted for admission Risk Prescription drug management. Decision regarding hospitalization. Critical Care Total time providing critical care: 40 minutes Final diagnoses: Hypotension due to hypovolemia Pyelonephritis ED Disposition ED Disposition ED Disposition Decision to Admit Condition -- Comment -- No follow-up provider specified. Medication List No changes were made to your prescriptions during this visit. Kris Bird MD 01/26/24 0245 documented in this encounter Miscellaneous Notes * Therapy Treatment Note - Gabby Pratt, PT - 01/27/2024 9:02 AM EDT Images from the original note were not included. Patient Name: Neetu Doherty : 1965 Today's Date: 01/27/2024 Admit Date: 01/26/2024 Visit Dx: ICD-10-CM ICD-9-CM 1. Hypotension due to hypovolemia E86.1 458.8 276.52 2. Pyelonephritis N12 590.80 Patient Active Problem List Diagnosis Precordial chest pain Shortness of breath Palpitations MAGDI (obstructive sleep apnea) Abnormal nuclear stress test Abnormal findings on diagnostic imaging of heart and coronary circulation Chronic obstructive pulmonary disease Mild CAD Back pain Past Medical History: Diagnosis Date Anxiety associated with depression Asthma Colitis 12/2022 COVID-19 05/2023 Diabetes GERD (gastroesophageal reflux disease) Hyperlipidemia Hypertension Hypothyroidism Migraines Psoriasis Past Surgical History: Procedure Laterality Date SECTION CHOLECYSTECTOMY CYST REMOVAL GANGLION CYST EXCISION GASTRIC BYPASS HEEL SPUR SURGERY Left HYSTERECTOMY KIDNEY STONE SURGERY KNEE SURGERY Bilateral TONSILLECTOMY General Information Row Name 01/27/24901 Physical Therapy Time and Intention Document Type therapy note (daily note) -NS Mode of Treatment physical therapy -NS Row Name 01/27/24901 General Information Patient Profile Reviewed yes -NS Existing Precautions/Restrictions no known precautions/restrictions -NS Row Name 01/27/24901 Cognition Orientation Status (Cognition) oriented x 4 -NS Row Name 01/27/24901 Safety Issues, Functional Mobility Safety Issues Affecting Function (Mobility) insight into deficits/self-awareness -NS Impairments Affecting Function (Mobility) balance;endurance/activity tolerance;strength -NS User Gottlieb (r) = Recorded By, (t) = Taken By, (c) = Cosigned By Initials Name Provider Type Gabby Dunham PT Physical Therapist Mobility Row Name 01/27/24901 Sit-Stand Transfer Sit-Stand [place] (Transfers) standby assist -NS Row Name 01/27/24901 Gait/Stairs (Locomotion) [place] Level (Gait) contact guard -NS Distance in Feet (Gait) 360 -NS Deviations/Abnormal Patterns (Gait) rosangela decreased;gait speed decreased;base of support, narrow -NS Bilateral Gait Deviations heel strike decreased -NS Comment, (Gait/Stairs) Patient ambulated at slow pace, demonstrating narrow LOLA. Initially requiredSBA then needed CGA for safety. She demonstrated some unsteadiness with 3 episodes of minor LOB butdid not require increased assistance to correct. Distance limited by fatigue. -NS User Gottlieb (r) = Recorded By, (t) = Taken By, (c) = Cosigned By Initials Name Provider Type Gabby Dunham PT Physical Therapist Obj/Interventions Row Name 01/27/24901 Balance Balance Assessment sitting static balance;sitting dynamic balance;standing static balance;standing dynamic balance -NS Static Sitting Balance independent -NS Dynamic Sitting Balance independent -NS Position, Sitting Balance unsupported;sitting in chair -NS Static Standing Balance standby assist -NS Dynamic Standing Balance contact guard -NS Position/Device Used, Standing Balance unsupported -NS User Gottlieb (r) = Recorded By, (t) = Taken By, (c) = Cosigned By Initials Name Provider Type Gabby Dunham PT Physical Therapist Goals/Plan No documentation. Clinical Impression Row Name 01/27/24901 Pain Pretreatment Pain Rating 0/10 - no pain -NS Posttreatment Pain Rating 0/10 - no pain -NS Row Name 01/27/24901 Plan of Care Review Plan of Care Reviewed With patient -NS Progress improving -NS Outcome Evaluation Patient increased her ambulation distance compared to last session but demonstrated some unsteadiness. She required CGA to ambulate with a few episodes of minor LOB- no increased assist needed to correct. Will continue to progress as tolerated. -NS Row Name 01/27/24901 Vital Signs Pre Patient Position Sitting -NS Intra Patient Position Standing -NS Post Patient Position Sitting -NS Row Name 01/27/24901 Positioning and Restraints Pre-Treatment Position in bed -NS Post Treatment Position chair -NS In Chair notified nsg;reclined;call light within reach;encouraged to call for assist;legs elevated RN deferred alarm -NS User Gottlieb (r) = Recorded By, (t) = Taken By, (c) = Cosigned By Initials Name Provider Type Gabby Dunham PT Physical Therapist Outcome Measures [facility] Name 01/27/2490101/27/24 08 How much help from another person do you currently need... Turning from your back to your side while in flat bed without using bedrails? 4 -NS 4 -MA Moving from lying on back to sitting on the side of a flat bed without bedrails? 4 -NS 4 -MA Moving to and from a bed to a chair (including a wheelchair)? 3 -NS 4 -MA Standing up from a chair using your arms (e.g., wheelchair, bedside chair)? 4 - NS 4 -MA Climbing 3-5 steps with a railing? 3 -NS 4 -MA To walk in hospital room? 3 -NS 4 -MA AM-PAC 6 Clicks Score (PT) 21 -NS 24 -MA Highest Level of Mobility Goal 6 --> Walk 10 steps or more -NS 8 --> Walked 250 feet or more -MI Row Name 01/27/24 0949 01/27/24901 Functional Assessment Outcome Measure Options AM-PAC 6 Clicks Daily Activity (OT) - AM-PAC 6 Clicks Basic Mobility (PT)-PATRICE User Gottlieb (r) = Recorded By, (t) = Taken By, (c) = Cosigned By Initials Name Provider Type Jacque Thorpe, OT Occupational Therapist Chai Angel, RN Registered Nurse Gabby Dunham PT Physical Therapist Physical Therapy Education Title: PT OT WEB PRODUCER Therapies (In Progress) Topic: Physical Therapy (In Progress) Point: Mobility training (Done) Learning Progress Summary Patient Acceptance, E, VU,NR by NS at 01/27/2024 1006 Acceptance, E, NR by AC at 01/26/2024 1532 Point: Home exercise program (In Progress) Learning Progress Summary Patient Acceptance, E, NR by AC at 01/26/2024 1532 Point: Body mechanics (Done) Learning Progress Summary Patient Acceptance, E, VU,NR by NS at 01/27/2024 1006 Acceptance, E, NR by AC at 01/26/2024 1532 Point: Precautions (Done) Learning Progress Summary Patient Acceptance, E, VU,NR by NS at 01/27/2024 1006 Acceptance, E, NR by AC at 01/26/2024 1532 User Gottlieb Initials Effective Dates Name Provider Type Discipline 10/20/20 - Gabby Pratt, PT Physical Therapist PT AC 11/15/23 - Irene Marroquin PT Physical Therapist PT PT Recommendation and Plan Plan of Care Reviewed With: patient Progress: improving Outcome Evaluation: Patient increased her ambulation distance compared to last session but demonstrated some unsteadiness. She required CGA to ambulate with a few episodes of minor LOB- no increased assist needed to correct. Will continue to progress as tolerated. Time Calculation: PT Charges Row Name 01/27/24 09 Time Calculation Start Time 901 -NS PT Received On 01/27/24 -NS PT Goal Re-Cert Due Date 02/05/24 -NS Timed Charges 89810 - Gait Training Minutes 13 -NS Total Minutes Timed Charges Total Minutes 13 -NS Total Minutes 13 -NS User Gottlieb (r) = Recorded By, (t) = Taken By, (c) = Cosigned By Initials Name Provider Type Gabby Dunham, PT Physical Therapist Therapy Charges for Today Code Description Service Date Service Provider Modifiers Qty 81415764404 HC GAIT TRAINING EA 15 MIN 01/27/2024 Gabby Pratt, PT GP 1 PT G-Codes Outcome Measure Options: AM-PAC 6 Clicks Daily Activity (OT) AM-PAC 6 Clicks Score (PT): 21 AM-PAC 6 Clicks Score (OT): 24 PT Discharge Summary Anticipated Discharge Disposition (PT): home with home health Gabby Pratt PT 01/27/2024 * Therapy Evaluation - Irene Marroquin PT - 01/26/2024 10:19 AM EDT Images from the original note were not included. Patient Name: Neetu Doherty : 1965 Today's Date: 01/26/2024 Admit Date: 01/26/2024 Visit Dx: ICD-10-CM ICD-9-CM 1. Hypotension due to hypovolemia E86.1 458.8 276.52 2. Pyelonephritis N12 590.80 Patient Active Problem List Diagnosis Precordial chest pain Shortness of breath Palpitations MAGDI (obstructive sleep apnea) Abnormal nuclear stress test Abnormal findings on diagnostic imaging of heart and coronary circulation Chronic obstructive pulmonary disease Mild CAD Back pain Past Medical History: Diagnosis Date Anxiety associated with depression Asthma Colitis 12/2022 COVID-19 05/2023 Diabetes GERD (gastroesophageal reflux disease) Hyperlipidemia Hypertension Hypothyroidism Migraines Psoriasis Past Surgical History: Procedure Laterality Date SECTION CHOLECYSTECTOMY CYST REMOVAL GANGLION CYST EXCISION GASTRIC BYPASS HEEL SPUR SURGERY Left HYSTERECTOMY KIDNEY STONE SURGERY KNEE SURGERY Bilateral TONSILLECTOMY General Information Row Name 01/26/24 1525 Physical Therapy Time and Intention Document Type evaluation -AC Mode of Treatment physical therapy -AC Row Name 01/26/24 1525 General Information Patient Profile Reviewed yes -AC Prior Level of Function independent:;all household mobility;community mobility;gait;transfer;bed mobility;ADL's -AC Existing Precautions/Restrictions no known precautions/restrictions -AC Barriers to Rehab none identified - Row Name 01/26/24 1525 Living Environment People in Home alone -AC Row Name 01/26/24 1525 Home Main Entrance Number of Stairs, Main Entrance none -AC Row Name 01/26/24 1525 Stairs Within Home, Primary Number of Stairs, Within Home, Primary none -AC Row Name 01/26/24 1525 Cognition Orientation Status (Cognition) oriented x 4 -AC Row Name 01/26/24 1525 Safety Issues, Functional Mobility Impairments Affecting Function (Mobility) endurance/activity tolerance;pain;balance;strength -AC User Gottlieb (r) = Recorded By, (t) = Taken By, (c) = Cosigned By Initials Name Provider Type AC Irene Marroquin, PT Physical Therapist Mobility Row Name 01/26/24 1526 Bed Mobility Bed Mobility [id number] -AC [id number] [place] (Bed Mobility) standby assist;verbal cues;nonverbal cues (demo/gesture) - Assistive Device (Bed Mobility) head of bed elevated -AC Comment, (Bed Mobility) Pt educated on log roll technique in order to decrease LBP - Row Name 01/26/24 1526 Sit-Stand Transfer Sit-Stand [place] (Transfers) standby assist -AC Assistive Device (Sit-Stand Transfers) other (see comments) no AD -AC Row Name 01/26/24 1526 Gait/Stairs (Locomotion) [place] Level (Gait) contact guard;verbal cues;nonverbal cues (demo/gesture) - Assistive Device (Gait) other (see comments) no AD -AC Distance in Feet (Gait) 150 -AC Deviations/Abnormal Patterns (Gait) rosangela decreased;stride length decreased;base of support, wide;gait speed decreased - Comment, (Gait/Stairs) Pt ambulated OOR w/ CGA for balance. Pt ambulated 150ft however demonstrateddecreased step length, wide base of support, and required frequent cues for forward gaze. Pt was primarily limited by LBP limiting her gait distance this date - User Gottlieb (r) = Recorded By, (t) = Taken By, (c) = Cosigned By Initials Name Provider Type AC Irene Marroquin, PT Physical Therapist Obj/Interventions Row Name 01/26/24 1528 Range of Motion Comprehensive General Range of Motion bilateral lower extremity ROM WNL - Row Name 01/26/24 1528 Strength Comprehensive (MMT) General Manual Muscle Testing (MMT) Assessment lower extremity strength deficits identified - Comment, General Manual Muscle Testing (MMT) Assessment BLE's grossly 4/5 - Row Name 01/26/24 1528 Balance Balance Assessment sitting static balance;sitting dynamic balance;sit to stand dynamic balance;standing static balance;standing dynamic balance -AC Static Sitting Balance standby assist -AC Dynamic Sitting Balance standby assist -AC Position, Sitting Balance unsupported;sitting edge of bed - Sit to Stand Dynamic Balance standby assist -AC Static Standing Balance standby assist -AC Dynamic Standing Balance contact guard - Position/Device Used, Standing Balance unsupported - Balance Interventions sitting;standing;sit to stand;supported;static;dynamic - Row Name 01/26/24 1528 Sensory Assessment (Somatosensory) Sensory Assessment (Somatosensory) LE sensation intact -AC User Gottlieb (r) = Recorded By, (t) = Taken By, (c) = Cosigned By Initials Name Provider Type AC Irene Marroquin PT Physical Therapist Goals/Plan Row Name 01/26/24 1531 Bed Mobility Goal 1 (PT) Activity/Assistive Device (Bed Mobility Goal 1, PT) sit to supine/supine to sit -AC [place] Level/Cues Needed (Bed Mobility Goal 1, PT) independent -AC Time Frame (Bed Mobility Goal 1, PT) short term goal (STG);5 days -AC Row Name 01/26/24 153 Transfer Goal 1 (PT) Activity/Assistive Device (Transfer Goal 1, PT) [id number] -AC [place] Level/Cues Needed (Transfer Goal 1, PT) independent -AC Time Frame (Transfer Goal 1, PT) buttermaker goal (LTG);10 days -AC Row Name 01/26/24 153 Gait Training Goal 1 (PT) Activity/Assistive Device (Gait Training Goal 1, PT) gait (walking locomotion);decrease fall risk;improve balance and speed;increase endurance/gait distance;increase energy conservation -AC [place] Level (Gait Training Goal 1, PT) independent -AC Distance (Gait Training Goal 1, PT) 200 -AC Time Frame (Gait Training Goal 1, PT) buttermaker goal (LTG);10 days -AC Row Name 01/26/24 153 Therapy Assessment/Plan (PT) Planned Therapy Interventions (PT) balance training;bed mobility training;gait training;patient/family education;stair training;strengthening;transfer training -AC User Gottlieb (r) = Recorded By, (t) = Taken By, (c) = Cosigned By Initials Name Provider Type AC Irene Marroquin PT Physical Therapist Clinical Impression Row Name 01/26/24 152 Pain Pretreatment Pain Rating 6/10 -AC Posttreatment Pain Rating 6/10 -AC Pain Location - back -AC Pain Intervention(s) Ambulation/increased activity;Repositioned -AC Row Name 01/26/24 1528 Plan of Care Review Plan of Care Reviewed With patient -AC Progress no change -AC Outcome Evaluation PT initial evaluation complete. Pt presents with decreased activity tolerance, decreased balance, and pain this date. Pt ambulated OOR for 150 ft w/o any AD and CGAx1 for stability. Pt ambulated with wide LOLA, downward gaze, decreased gait speed, and increased trunk sway this date. Pt would benefit from continued skilled therapy while hospitalized in order to progress to PLOF. D/c rec is home w/ home health -AC Row Name 01/26/24 1528 Therapy Assessment/Plan (PT) Rehab Potential (PT) good, to achieve stated therapy goals -AC Criteria for Skilled Interventions Met (PT) yes -AC Therapy Frequency (PT) daily -AC Predicted Duration of Therapy Intervention (PT) 10 days -AC Row Name 01/26/24 1528 Vital Signs O2 Delivery Pre Treatment room air -AC O2 Delivery Intra Treatment room air -AC O2 Delivery Post Treatment room air -AC Pre Patient Position Side Lying -AC Intra Patient Position Standing -AC Post Patient Position Side Lying -AC Row Name 01/26/24 1528 Positioning and Restraints Pre-Treatment Position in bed -AC Post Treatment Position bed -AC In Bed notified nsg;side lying right;encouraged to call for assist;call light within reach;side rails up x2 -AC User Gottlieb (r) = Recorded By, (t) = Taken By, (c) = Cosigned By Initials Name Provider Type AC Irene Marroquin, PT Physical Therapist Outcome Measures Row Name 01/26/24 1531 01/26/24 0800 How much help from another person do you currently need... Turning from your back to your side while in flat bed without using bedrails? 4 -AC 4 -MA Moving from lying on back to sitting on the side of a flat bed without bedrails? 4 -AC 4 -MA Moving to and from a bed to a chair (including a wheelchair)? 3 -AC 4 -MA Standing up from a chair using your arms (e.g., wheelchair, bedside chair)? 3 - AC 4 -MA Climbing 3-5 steps with a railing? 3 -AC 4 -MA To walk in hospital room? 3 -AC 4 -MA AM-PAC 6 Clicks Score (PT) 20 -AC 24 -MA Highest Level of Mobility Goal 6 --> Walk 10 steps or more -AC 8 --> Walked 250 feet or more -MA Row Name 01/26/24 0600 How much help from another person do you currently need... Turning from your back to your side while in flat bed without using bedrails? 4 -DARIO Moving from lying on back to sitting on the side of a flat bed without bedrails? 4 -DARIO Moving to and from a bed to a chair (including a wheelchair)? 4 -DARIO Standing up from a chair using your arms (e.g., wheelchair, bedside chair)? 4 -DARIO Climbing 3-5 steps with a railing? 4 -DARIO To walk in hospital room? 4 -DARIO AM-PAC 6 Clicks Score (PT) 24 - Highest Level of Mobility Goal 8 --> Walked 250 feet or more - Row Name 01/26/24 1531 Functional Assessment Outcome Measure Options AM-PAC 6 Clicks Basic Mobility (PT) - User Gottlieb (r) = Recorded By, (t) = Taken By, (c) = Cosigned By Initials Name Provider Type Chai Angel RN Registered Nurse Chanelle Sherman RN Registered Nurse Irene Morales, PT Physical Therapist Physical Therapy Education Title: PT OT WEB PRODUCER Therapies (In Progress) Topic: Physical Therapy (In Progress) Point: Mobility training (In Progress) Learning Progress Summary Patient Acceptance, E, NR by at 01/26/2024 1532 Point: Home exercise program (In Progress) Learning Progress Summary Patient Acceptance, E, NR by at 01/26/2024 1532 Point: Body mechanics (In Progress) Learning Progress Summary Patient Acceptance, E, NR by at 01/26/2024 1532 Point: Precautions (In Progress) Learning Progress Summary Patient Acceptance, E, NR by at 01/26/2024 1532 User Gottlieb Initials Effective Dates Name Provider Type Discipline 11/15/23 - Irene Marroquin, PT Physical Therapist PT PT Recommendation and Plan Planned Therapy Interventions (PT): balance training, bed mobility training, gait training, patient/family education, stair training, strengthening, transfer training Plan of Care Reviewed With: patient Progress: no change Outcome Evaluation: PT initial evaluation complete. Pt presents with decreased activity tolerance, decreased balance, and pain this date. Pt ambulated OOR for 150 ft w/o any AD and CGAx1 for stability. Pt ambulated with wide LOLA, downward gaze, decreased gait speed, and increased trunk sway this date. Pt would benefit from continued skilled therapy while hospitalized in order to progress to PLOF. D/c rec is home w/ home health Time Calculation: PT Evaluation Complexity History, PT Evaluation Complexity: 1-2 personal factors and/or comorbidities Examination of Body Systems (PT Eval Complexity): 1-2 elements Clinical Presentation (PT Evaluation Complexity): evolving Clinical Decision Making (PT Evaluation Complexity): low complexity Overall Complexity (PT Evaluation Complexity): low complexity PT Charges Row Name 01/26/24 1533 Time Calculation Start Time 1019 -AC PT Received On 01/26/24 -AC PT Goal Re-Cert Due Date 02/05/24 -AC Time Calculation- PT Total Timed Code Minutes- PT 10 minute(s) -AC Timed Charges 43380 - Gait Training Minutes 10 -AC Untimed Charges PT Eval/Re-eval Minutes 33 -AC Total Minutes Timed Charges Total Minutes 10 -AC Untimed Charges Total Minutes 33 -AC Total Minutes 43 -AC User Gottlieb (r) = Recorded By, (t) = Taken By, (c) = Cosigned By Initials Name Provider Type AC Irene Marroquin, PT Physical Therapist Therapy Charges for Today Code Description Service Date Service Provider Modifiers Qty [id number] HC GAIT TRAINING EA 15 MIN 01/26/2024 Irene Marroquin, PT GP 1 11653431397 HC PT EVAL LOW COMPLEXITY 3 01/26/2024 Irene Marroquin, PT GP 1 PT G-Codes Outcome Measure Options: AM-PAC 6 Clicks Basic Mobility (PT) AM-PAC 6 Clicks Score (PT): 20 PT Discharge Summary Anticipated Discharge Disposition (PT): home with home health Irene Marroquin PT 01/26/2024 documented in this encounter Plan of Treatment Not on file documented as of this encounter Procedures Procedure Name Priority Date/Time Associated Diagnosis Comments POCT GLUCOSE FINGERSTICK Routine 01/27/2024 10:48 AM EDT COMPREHENSIVE METABOLIC PANEL Urgent 01/27/2024 6:05 AM EDT POCT GLUCOSE FINGERSTICK Routine 01/26/2024 10:26 PM EDT POCT GLUCOSE FINGERSTICK Routine 01/26/2024 10:21 AM EDT US LIVER STAT 01/26/2024 4:58 AM EDT BLOOD CULTURE STAT 01/26/2024 2:00 AM EDT BLOOD CULTURE STAT 01/26/2024 1:[address] ABDOMEN PELVIS WO CONTRAST STAT 01/26/2024 1:01 AM EDT CBC WITH AUTO DIFFERENTIAL STAT 01/26/2024 12:38 AM EDT CBC AND DIFFERENTIAL STAT 01/26/2024 12:38 AM EDT LIPASE STAT 01/26/2024 12:38 AM EDT LACTIC ACID, PLASMA STAT 01/26/2024 1 2:38 AM EDT CK STAT 01/26/2024 12:38 AM EDT COMPREHENSIVE METABOLIC PANEL STAT 01/26/2024 12:38 AM EDT SCANNED - LABS 01/26/2024 URINALYSIS, MICROSCOPIC ONLY STAT 01/25/2024 11:53 PM EDT URINALYSIS W/ MICROSCOPIC IF INDICATED (NO CULTURE) STAT 01/25/2024 11:53 PM EDT URINE CULTURE STAT 01/25/2024 11:53 PM EDT MA CRITICAL CARE ILL/INJURED PATIENT INIT 30-74 MIN Routine 01/25/2024 11:51 PM EDT documented in this encounter Results * POC Glucose Once (01/27/2024 10:48 AM EDT) Glucose 98 70 - 130 mg/dL 01/27/2024 10:52 AM EDT [facility] Blood 01/27/2024 10:4 8 AM EDT 01/27/2024 10:52 AM EDT Nabil Guerrero MD POINT OF CARE TEST ORDERABLES Final Result [facility]
[address] [place] [address], * (ABNORMAL) Comprehensive Metabolic Panel (01/27/2024 6:05 AM EDT) Glucose 76 65 - 99 mg/dL 01/27/2024 7:02 AM EDT [facility] BUN 18 6 - 20 mg/dL 01/27/2024 7:02 AM EDT [facility] Creatinine 0.98 0.57 - 1.00 mg/dL 01/27/2024 7:02 AM EDT [facility] Sodium 143 136 - 145 mmol/L 01/27/2024 7:02 AM EDT [facility] Potassium 4.3 3.5 - 5.2 mmol/L 01/27/2024 7:02 AM EDT [facility] Chloride 107 98 - 107 mmol/L 01/27/2024 7:02 AM EDT [facility] CO2 29.0 22.0 - 29.0 mmol/L 01/27/2024 7:02 AM EDT [facility] Calcium 8.4(L) 8.6 - 10.5 mg/dL 01/27/2024 7:02 AM EDT [facility] Total Protein 5.3(L) 6.0 - 8.5 g/dL 01/27/2024 7:02 AM EDT [facility] Albumin 3.4(L) 3.5 - 5.2 g/dL 01/27/2024 7:02 AM EDT [facility] ALT (SGPT) 32 1 - 33 U/L 01/27/2024 7:02 AM EDT [facility] AST (SGOT) 22 1 - 32 U/L 01/27/2024 7:02 AM EDT [facility] Alkaline Phosphatase 112 39 - 117 U/L 01/27/2024 7:02 AM EDT [facility] Total Bilirubin 0.4 0.0 - 1.2 mg/dL 01/27/2024 7:02 AM EDT [facility] Globulin 1.9 gm/dL 01/27/2024 7:02 AM EDT [facility] Comment:Calculated Result A/G Ratio 1.8 g/dL 01/27/2024 7:02 AM EDT [facility] BUN/Creatinine Ratio 18.4 7.0 - 25.0 01/27/2024 7:02 AM EDT [facility] Anion Gap 7.0 5.0 - 15.0 mmol/L 01/27/2024 7:02 AM EDT [facility] eGFR 66.6 >60.0 mL/min/1.7 3 01/27/2024 7:02 AM EDT [facility] Blood Venipuncture / Unknown 01/27/2024 6:05 AM EDT 01/27/2024 6:17 AM EDT Narrative [facility] - 01/27/2024 7:02 AM EDT GFR Normal >60 Chronic Kidney Disease <60 Kidney Failure <15 Ambika Arreaga MD LAB BLOOD ORDERABLES Final Resul t [facility]
[address] [place] [address], * POC Glucose Once (01/26/2024 10:26 PM EDT) Glucose 85 70 - 130 mg/dL 01/26/2024 10:28 PM EDT [facility] Blood 01/26/2024 10:2 6 PM EDT 01/26/2024 10:28 PM EDT Pebbles Beauchamp DO POINT OF CARE TEST ORD ERABLES Final Result Performing Organization Address City/[facility]/ZIP Co de Phone Number [facility]
[address] [place] [address], [place] [phone] * POC Glucose Once (01/26/2024 10:21 AM EDT) Glucose 93 70 - 130 mg/dL 01/26/2024 10:21 AM EDT [facility] Blood 01/26/2024 10:2 1 AM EDT 01/26/2024 10:21 AM EDT Pebbles Beauchamp DO POINT OF CARE TEST ORD ERABLES Final Result Performing Organization Address [facility] Co de Phone Number [facility]
[address] [place] [address], [place] [phone] * US Liver (01/26/2024 4:58 AM EDT) Anatomical Region Laterality Modality Body, Abdomen Ultrasound 01/26/2024 5:09 AM EDT Impressions 01/26/2024 5:13 AM EDT Impression: Normal common duct. Electronically Signed: Junior Boo MD 01/26/2024 5:13 AM EDT Workstation ID: [id number] Narrative 01/26/2024 5:13 AM EDT US LIVER Date of Exam: 01/26/2024 4:08 AM EDT Indication: ruq tenderness, no gallbladder but transam. comment on CBD size. Comparison: No comparisons available. Technique: Grayscale and color Doppler ultrasound evaluation of the right upper quadrant was performed. Findings: The liver is homogeneous. There are no focal liver lesions. The gallbladder is surgically absent. The common duct is 7 mm which is normal. The right kidney is 8.9 cm in kehv-nq-dyun length and there is no hydronephrosis. There is a small exophytic cyst measuring about 2 cm. The pancreas is incompletely seen secondary to shadowing from overlying bowel gas. Procedure Note Junior Boo MD - 01/26/2024 US LIVER Date of Exam: 01/26/2024 4:08 AM EDT Indication: ruq tenderness, no gallbladder but transam. comment on CBDsize. Comparison: No comparisons available. Technique: Grayscale and color Doppler ultrasound evaluation of the rightupper quadrant was performed. Findings: The liver is homogeneous. There are no focal liver lesions. Thegallbladder is surgically absent. The common duct is 7 mm which is normal.The right kidney is 8.9 cm in eyff-ea-ukbw length and there is nohydronephrosis. There is a small exophytic cyst measuring about 2 cm. The pancreas is incompletely seen secondary toshadowing from overlying bowel gas. IMPRESSION: Impression: Normal common duct. Electronically Signed: Junior Boo MD 01/26/2024 5:13 AM EDT Workstation ID: [id number] us Ambika Arreaga MD IM US ORDERABLES Final Result * Blood Culture - Blood, Arm, Right (01/26/2024 2:00 AM EDT) Blood Culture No growth at 5 days 01/31/2024 7:00 AM EDT [facility] Blood Structure of right upper limb / Unknown Venipuncture / Unknown 01/26/2024 2:00 AM EDT 01/26/2024 6:51 AM EDT Kris Bird MD MICROBIOLOGY - GENERAL ORDERABLE S Final Result [facility]
[address] [place] [address], * Blood Culture - Blood, Arm, Left (01/26/2024 1:50 AM EDT) Blood Culture No growth at 5 days 01/31/2024 7:00 AM EDT [facility] Blood Structure of left upper limb / Unknown Venipuncture / Unknown 01/26/2024 1:50 AM EDT 01/26/2024 6:52 AM EDT us Kris Bird MD MICROBIOLOGY - GENERAL ORDERABLE S Final Result [facility]
[address] [phone], * CT Abdomen Pelvis Without Contrast (01/26/2024 1:01 AM EDT) Anatomical Region Laterality Modality Abdomen, Pelvis N/A Computed Tomogra phy 01/26/2024 1:38 AM EDT Impressions 01/26/2024 1:44 AM EDT Impression: 1.Faint left lower lobe nodular airspace opacities suggestive of infectious process. 2.No acute abdominal or pelvic abnormality. 3.Bilateral fat-containing inguinal hernias. Electronically Signed: Junior Boo MD 01/26/2024 1:44 AM EDT Workstation ID: [id number] Narrative 01/26/2024 1:[address] ABDOMEN PELVIS WO CONTRAST Date of Exam: 01/26/2024 12:47 AM EDT Indication: Right sided abdominal/flank pain. Comparison: None available. Technique: Axial CT images were obtained of the abdomen and pelvis without the administration of contrast. Reconstructed coronal and sagittal images were also obtained. Automated exposure control and iterative construction methods were used. Findings: Lung Bases: ?? There are faint left lower lobe nodular airspace opacities suggestive of infectious process. 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 Liver: Liver is normal in size and CT density. No focal lesions. Biliary/Gallbladder: ?? The gallbladder is surgically absent. The biliary tree is nondilated. Spleen: Spleen is normal in size and CT density. Pancreas: ?? Pancreas is normal. There is no evidence of pancreatic mass or peripancreatic fluid. Kidneys: ?? There is a 1.6 cm cyst of the interpolar right kidney laterally. There is no hydronephrosis of either kidney. There is no convincing solid renal mass. Adrenals: ?? Adrenal glands are unremarkable. Retroperitoneal/Lymph Nodes/Vasculature: ?? No retroperitoneal adenopathy is identified. Gastrointestinal/Mesentery: ?? The bowel loops are non-dilated without wall thickening or mass. The appendix appears within normal limits. No evidence of obstruction. No free air. No mesenteric fluid collections identified. There are bilateral fat-containing inguinal hernias. Bladder: ?? The bladder is normal. Genital: ?? Unremarkable ? Bony Structures: ?? Visualized bony structures are consistent with the patient's age. Procedure Note Junior Boo MD - 01/26/2024 CT ABDOMEN PELVIS WO CONTRAST Date of Exam: 01/26/2024 12:47 AM EDT Indication: Right sided abdominal/flank pain. Comparison: None available. Technique: Axial CT images were obtained of the abdomen and pelvis withoutthe administration of contrast. Reconstructed coronal and sagittal imageswere also obtained. Automated exposure control and iterative constructionmethods were used. Findings: Lung Bases: There are faint left lower lobe nodular airspace opacities suggestive ofinfectious process. There are postoperative changes from gastric bypassprocedure. Liver: Liver is normal in size and CT density. No focal lesions. Biliary/Gallbladder: The gallbladder is surgically absent. The biliary tree is nondilated. Spleen: Spleen is normal in size and CT density. Pancreas: Pancreas is normal. There is no evidence of pancreatic mass orperipancreatic fluid. Kidneys: There is a 1.6 cm cyst of the interpolar right kidney laterally. There isno hydronephrosis of either kidney. There is no convincing solid renalmass. Adrenals: Adrenal glands are unremarkable. Retroperitoneal/Lymph Nodes/Vasculature: No retroperitoneal adenopathy is identified. Gastrointestinal/Mesentery: The bowel loops are non-dilated without wall thickening or mass. Theappendix appears within normal limits. No evidence of obstruction. No freeair. No mesenteric fluid collections identified. There are bilateralfat-containing inguinal hernias. Bladder: The bladder is normal. Genital: Unremarkable Bony Structures: Visualized bony structures are consistent with the patient's age. IMPRESSION: Impression: 1.Faint left lower lobe nodular airspace opacities suggestive ofinfectious process. 2.No acute abdominal or pelvic abnormality. 3.Bilateral fat-containing inguinal hernias. Electronically Signed: Junior Boo MD 01/26/2024 1:44 AM EDT Workstation ID: [id number] us Kris Bird MD IM CT ORDERABLES Final Result * CK (01/26/2024 12:38 AM EDT) Pathologist [facility] Creatine Kinase 70 20 - 180 U/L 01/26/2024 4:25 AM EDT [facility] Blood Structure of right upper limb / Unknown Venipuncture / Unknown 01/26/2024 12:38 AM EDT 01/26/2024 1:09 AM EDT us Ambika Arreaga MD LAB BLOOD ORDERABLES Final Resul t [facility]
[address] [place] [address], * (ABNORMAL) CBC Auto Differential (01/26/2024 12:38 AM EDT) Pathologist [facility] WBC 11.38(H) 3.40 - 10.80 10*3/mm3 01/26/2024 1:14 AM EDT [facility] RBC 3.71(L) 3.77 - 5.28 10*6/mm3 01/26/2024 1:14 AM EDT [facility] Hemoglobin 12.3 12.0 - 15.9 g/dL 01/26/2024 1:14 AM EDT [facility] Hematocrit 35.6 34.0 - 46.6 % 01/26/2024 1:14 AM EDT [facility] MCV 96.0 79.0 - 97.0 fL 01/26/2024 1:14 AM EDT [facility] MCH 33.2(H) 26.6 - 33.0 pg 01/26/2024 1:14 AM EDT [facility] MCHC 34.6 31.5 - 35.7 g/dL 01/26/2024 1:14 AM EDT [facility] RDW 14.3 12.3 - 15.4 % 01/26/2024 1:14 AM EDT [facility] RDW-SD 46.9 37.0 - 54.0 fl 01/26/2024 1:14 AM [facility] MPV 9.9 6.0 - 12.0 fL 01/26/2024 1:14 AM [facility] Platelets 349 140 - 450 10*3/mm3 01/26/2024 1:14 AM [facility] Neutrophil % 60.9 42.7 - 76.0 % 01/26/2024 1:14 AM [facility] Lymphocyte % 30.6 19.6 - 45.3 % 01/26/2024 1:14 AM [facility] Monocyte % 5.7 5.0 - 12.0 % 01/26/2024 1:14 AM [facility] Eosinophil % 0.9 0.3 - 6.2 % 01/26/2024 1:14 AM [facility] Basophil % 0.6 0.0 - 1.5 % 01/26/2024 1:14 AM [facility] Immature Grans % 1.3(H) 0.0 - 0.5 % 01/26/2024 1:14 AM [facility] Neutrophils, Absolute 6.93 1.70 - 7.00 10*3/mm3 01/26/2024 1:14 AM [facility] Lymphocytes, Absolute 3.48(H) 0.70 - 3.10 10*3/mm3 01/26/2024 1:14 AM [facility] Monocytes, Absolute 0.65 0.10 - 0.90 10*3/mm3 01/26/2024 1:14 AM [facility] Eosinophils, Absolute 0.10 0.00 - 0.40 10*3/mm3 01/26/2024 1:14 AM [facility] Basophils, Absolute 0.07 0.00 - 0.20 10*3/mm3 01/26/2024 1:14 AM [facility] Immature Grans, Absolute 0.15(H) 0.00 - 0.05 10*3/mm3 01/26/2024 1:14 AM [facility] nRBC 0.0 0.0 - 0.2 /100 WBC 01/26/2024 1:14 AM EDT [facility] Blood Structure of right upper limb / Unknown Venipuncture / Unknown 01/26/2024 12:38 AM EDT 01/26/2024 1:11 AM EDT us Kris Bird MD LAB BLOOD ORDERABLES Final Resul t Performing Organization Address [facility] de Phone Number [facility]
[address] [place] [address], * Lactic Acid, Plasma (01/26/2024 12:38 AM EDT) Lactate 1.6 0.5 - 2.0 mmol/L 01/26/2024 1:27 AM EDT [facility] Comment:Falsely depressed re sults may occur on samples drawn from patients receiving N-Acetylcysteine (NAC) or Metamizole. Blood Structure of right upper limb / Unknown Venipuncture / Unknown 01/26/2024 12:38 AM EDT 01/26/2024 1:09 AM EDT us Kris Bird MD LAB BLOOD ORDERABLES Final Resul t Performing Organization Address [facility] de Phone Number [facility]
[address] [place] [address], * (ABNORMAL) Lipase (01/26/2024 12:38 AM EDT) Lipase 109(H) 13 - 60 U/L 01/26/2024 1:31 AM EDT [facility] Blood Structure of right upper limb / Unknown Venipuncture / Unknown 01/26/2024 12:38 AM EDT 01/26/2024 1:09 AM EDT us Kris Bird MD LAB BLOOD ORDERABLES Final Resul t Performing Organization Address [facility] de Phone Number [facility]
[address] [place] [address], * (ABNORMAL) Comprehensive Metabolic Panel (01/26/2024 12:38 AM EDT) [facility] Signature Glucose 93 65 - 99 mg/dL 01/26/2024 1:31 AM EDT [facility] BUN 18 6 - 20 mg/dL 01/26/2024 1:31 AM EDT [facility] Creatinine 1.02(H) 0.57 - 1.00 mg/dL 01/26/2024 1:31 AM EDT [facility] Sodium 136 136 - 145 mmol/L 01/26/2024 1:31 AM EDT [facility] Potassium 3.6 3.5 - 5.2 mmol/L 01/26/2024 1:31 AM EDT [facility] Chloride 99 98 - 107 mmol/L 01/26/2024 1:31 AM EDT [facility] CO2 25.0 22.0 - 29.0 mmol/L 01/26/2024 1:31 AM EDT [facility] Calcium 8.7 8.6 - 10.5 mg/dL 01/26/2024 1:31 AM EDT [facility] Total Protein 6.5 6.0 - 8.5 g/dL 01/26/2024 1:31 AM EDT [facility] Albumin 3.8 3.5 - 5.2 g/dL 01/26/2024 1:31 AM EDT [facility] ALT (SGPT) 35(H) 1 - 33 U/L 01/26/2024 1:31 AM EDT [facility] AST (SGOT) 80(H) 1 - 32 U/L 01/26/2024 1:31 AM EDT [facility] Alkaline Phosphatase 126(H) 39 - 117 U/L 01/26/2024 1:31 AM EDT [facility] Total Bilirubin 0.8 0.0 - 1.2 mg/dL 01/26/2024 1:31 AM EDT [facility] Globulin 2.7 gm/dL 01/26/2024 1:31 AM EDT [facility] Comment:Calculated Result A/G Ratio 1.4 g/dL 01/26/2024 1:31 AM EDT [facility] BUN/Creatinine Ratio 17.6 7.0 - 25.0 01/26/2024 1:31 AM EDT [facility] Anion Gap 12.0 5.0 - 15.0 mmol/L 01/26/2024 1:31 AM EDT [facility] eGFR 63.5 >60.0 mL/min/1.7 3 01/26/2024 1:31 AM EDT [facility] Blood Structure of right upper limb / Unknown Venipuncture / Unknown 01/26/2024 12:38 AM EDT 01/26/2024 1:09 AM EDT [facility] - 01/26/2024 1:31 AM EDT GFR Normal >60 Chronic Kidney Disease <60 Kidney Failure <15 Kris Bird MD LAB BLOOD ORDERABLES Final Resul t [facility]
[address] [place] [address], * LABS SCANNED (01/26/2024) [facility] LAB BLOOD ORDERABLES Final Re sult * Urine Culture - Urine, Urine, Clean Catch (01/25/2024 11:53 PM EDT) Urine Culture 50,000 CFU/mL Normal Urogenital Rosa Elena JAVAN 01/27/2024 11:27 AM EDT [facility] Urine Urine specimen obtained by clean catch procedure / Unknown Collection / Unknown 01/25/2024 11:53 PM EDT 01/26/2024 12:24 AM EDT Narrative [facility] - 01/27/2024 11:27 AM EDT Colonization of the urinary tract without infection is common. Treatment is discouraged unless the patient is symptomatic, , or undergoing an invasive urologic procedure. us Ambika Arreaga MD MICROBIOLOGY - GENERAL ORDERABLE S Final Result Performing Organization Address City/[facility]/ZIP Co de Phone Number [facility]
[address] [place] [address], [place] [phone] * (ABNORMAL) Urinalysis, Microscopic Only - Urine, Clean Catch (01/25/2024 11:53 PM EDT) RBC, UA 0-2 None Seen, 0-2 /HPF 01/26/2024 12:53 AM EDT [facility] WBC, UA 21-50(A) None Seen, 0-2 /HPF 01/26/2024 12:53 AM EDT [facility] Bacteria, UA None Seen None Seen, Trace /HPF 01/26/2024 12:53 AM EDT [facility] Squamous Epithelial Cells, UA 3-6(A) None Seen, 0-2 /HPF 01/26/2024 12:53 AM EDT [facility] Hyaline Casts, UA 0-6 0 - 6 /LPF 01/26/2024 12:53 AM EDT [facility] Methodology Manual Light Microscopy 01/26/2024 12:53 AM EDT [facility] Urine Urine specimen obtained by clean catch procedure / Unknown Collection / Unknown 01/25/2024 11:53 PM EDT 01/26/2024 12:24 AM EDT Kris Bird MD URINE ORDERABLES Final Result Performing Organization Address City/[facility]/ZIP Co de Phone Number [facility]
[address] [place] [address], [place] [phone] * (ABNORMAL) Urinalysis With Microscopic If Indicated (No Culture) - Urine, Clean Catch (01/25/2024 11:53 PM EDT) Color, UA Yellow Yellow, Straw 01/26/2024 12:53 AM EDT [facility] Appearance, UA Cloudy(A) Clear 01/26/2024 12:53 AM EDT [facility] pH, UA 5.5 5.0 - 8.0 01/26/2024 12:53 AM EDT [facility] Specific [place], UA 1.013 1.001 - 1.030 01/26/2024 12:53 AM EDT [facility] Glucose, UA Negative Negative 01/26/2024 12:53 AM EDT [facility] Ketones, UA Negative Negative 01/26/2024 12:53 AM EDT [facility] Bilirubin, UA Negative Negative 01/26/2024 12:53 AM EDT [facility] Blood, UA Negative Negative 01/26/2024 12:53 AM EDT [facility] Protein, UA Negative Negative 01/26/2024 12:53 AM EDT [facility] Leuk Esterase, UA Large (3+)(A) Negative 01/26/2024 12:53 AM EDT [facility] Nitrite, UA Negative Negative 01/26/2024 12:53 AM EDT [facility] Urobilinogen, UA 0.2 E.U./dL 0.2 - 1.0 E.U./dL 01/26/2024 12:53 AM EDT [facility] Urine Urine specimen obtained by clean catch procedure / Unknown Collection / Unknown 01/25/2024 11:53 PM EDT 01/26/2024 12:24 AM EDT us Kris Bird MD URINE ORDERABLES Final Result [facility]
[address] [place] [address], * MA CRITICAL CARE ILL/INJURED PATIENT INIT 30-74 MIN (01/25/2024 11:51 PM EDT) Narrative Kris Bird MD - 01/25/2024 11:51 PM EDT Kris Bird MD ? 01/26/2024 ??2:45 AM Critical Care Performed by: Kris Bird MD Authorized by: rKis Bird MD ?? Critical care provider statement: ??Critical care time (minutes): ??40 ??Critical care time was exclusive of: ??Separately billable procedures and treating other patients ??Critical care was necessary to treat or prevent imminent or life-threatening deterioration of the following conditions: ??Dehydration ??Critical care was time spent personally by me on the following activities: ??Development of treatment plan with patient or surrogate, discussions with consultants, evaluation of patient's response to treatment, examination of patient, obtaining history from patient or surrogate, ordering and performing treatments and interventions, ordering and review of laboratory studies, ordering and review of radiographic studies, pulse oximetry, re-evaluation of patient's condition and review of old charts ??I assumed direction of critical care for this patient from another provider in my specialty: no ?Care discussed with: admitting provider ?? Kris Bird MD PROCEDURE/MINOR SURGICAL ORDERAB LES Final Result documented in this encounter Visit Diagnoses Diagnosis Back pain- Primary Unspecified backache Hypotension due to hypovolemia Pyelonephritis Unspecified pyelonephritis documented in this encounter Admitting Diagnoses Diagnosis Back pain Unspecified backache documented in this encounter Administered Medications Inactive Administered Medications - up to 3 most recent administrations Medication Order MAR Action Action Date Dose Rate Site acetaminophen (TYLENOL) 160 MG/5ML oral solution 650 mg 650 mg, Oral, Every 4 Hours PRN, Mild Pain, Starting on 01/26/24 at 0504, If given for fever, use fever parameter: fever greater than 100.4 ??F Based on patient request - if ordered for moderate or severe pain, provider allows for administration of a medication prescribed for a lower pain scale. Do not exceed 4 grams of acetaminophen in a 24 hr period. Max dose of 2gm for AST/ALT greater than 120 units/L. If given for pain, use the following pain scale: Mild Pain = Pain Score of 1-3, CPOT 1-2 Moderate Pain = Pain Score of 4-6, CPOT 3-4 Severe Pain = Pain Score of 7-10, CPOT 5-8 acetaminophen (TYLENOL) suppository 650 mg 650 mg, Rectal, Every 4 Hours PRN, Mild Pain, Starting on 01/26/24 at 0504, If given for fever, use fever parameter: fever greater than 100.4 ??F Based on patient request - if ordered for moderate or severe pain, provider allows for administration of a medication prescribed for a lower pain scale. Do not exceed 4 grams of acetaminophen in a 24 hr period. Max dose of 2gm for AST/ALT greater than 120 units/L. If given for pain, use the following pain scale: Mild Pain = Pain Score of 1-3, CPOT 1-2 Moderate Pain = Pain Score of 4-6, CPOT 3-4 Severe Pain = Pain Score of 7-10, CPOT 5-8 acetaminophen (TYLENOL) tablet 650 mg 650 mg, Oral, Every 4 Hours PRN, Mild Pain, Starting on 01/26/24 at 0504, If given for fever, use fever parameter: fever greater than 100.4 ??F Based on patient request - if ordered for moderate or severe pain, provider allows for administration of a medication prescribed for a lower pain scale. Do not exceed 4 grams of acetaminophen in a 24 hr period. Max dose of 2gm for AST/ALT greater than 120 units/L. If given for pain, use the following pain scale: Mild Pain = Pain Score of 1-3, CPOT 1-2 Moderate Pain = Pain Score of 4-6, CPOT 3-4 Severe Pain = Pain Score of 7-10, CPOT 5-8 Given 01/26/2024 5:31 AM EDT 650 mg bisacodyl (DULCOLAX) EC tablet 5 mg 5 mg, Oral, Daily PRN, Constipation, Use if polyethylene glycol is ineffective, Starting on 01/26/24 at 0504, Use if no bowel movement after 12 hours. Swallow whole. Do not crush, split, or chew tablet. bisacodyl (DULCOLAX) suppository 10 mg 10 mg, Rectal, Daily PRN, Constipation, Use if bisacodyl oral is ineffective, Starting on 01/26/24 at 0504, Use if no bowel movement after 12 hours. Hold for diarrhea budesonide-formoterol (SYMBICORT) 160-4.5 MCG/ACT inhaler 2 puff 2 puff, Inhalation, 2 Times Daily - RT, First dose on 01/26/24 at 0930, {SP} Shake well. Rinse mouth after use, do not swallow water. Send aerosols to pharmacy in ziplock bag for proper disposal. Given 01/27/2024 9:31 AM EDT 2 puffs Given 01/26/2024 7:46 PM EDT 2 puffs Given 01/26/2024 8:41 AM EDT 2 puffs buPROPion SR (WELLBUTRIN SR) 12 hr tablet 150 mg 150 mg, Oral, 2 Times Daily, First dose on 01/26/24 at 0900, Do not crush or chew the capsules or tablets. The drug may not work as designed if the capsule or tablet is crushed or chewed. Swallow whole. Caution: Look alike/sound alike drug alert. Swallow whole. Do not crush, chew, or split tablet. Given 01/27/2024 8:16 AM EDT 150 mg Given 01/26/2024 8:45 PM EDT 150 mg Given 01/26/2024 8:22 AM EDT 150 mg cyclobenzaprine (FLEXERIL) tablet 10 mg 10 mg, Oral, 3 Times Daily PRN, Muscle Spasms, Starting on 01/26/24 at 0504 Given 01/26/2024 2:17 PM EDT 10 mg Given 01/26/2024 5:18 AM EDT 10 mg Enoxaparin Sodium (LOVENOX) syringe 40 mg 40 mg, Subcutaneous, Every 12 Hours, First dose on 01/26/24 at 0900, Give subcutaneous in abdomen only. Do not massage site after injection., Indications: VTE ProphylaxisIndications:VTE Prophylaxis Given 01/27/2024 8:16 AM EDT 40 mg Left Lower Abdomen Given 01/26/2024 8:45 PM EDT 40 mg Le ft Lower Abdomen Given 01/26/2024 8:22 AM EDT 40 mg Ri ght Lower Abdomen ertapenem (INVanz) 1,000 mg in sodium chloride 0.9 % 100 mL MBP 1,000 mg, Intravenous, at 200 mL/hr, Administer over 30 Minutes, Every 24 Hours, First dose on 01/26/24 at 0800, For 5 days, Caution: Look alike/sound alike drug alert., Indications: Urinary Tract InfectionIndications:Urinary Tract Infection New Bag 01/27/2024 8:16 AM EDT 1,000 mg 200 mL/hr New Bag 01/26/2024 8:21 AM EDT 1,000 mg 200 mL/hr ferrous sulfate tablet 325 mg 325 mg, Oral, Daily, First dose on 01/26/24 at 0800, Swallow whole. Do not crush, split, or chew. Take with food if GI upset occurs. Given 01/27/2024 8:16 AM EDT 325 mg Given 01/26/2024 8:22 AM EDT 325 mg FLUoxetine (PROzac) capsule 40 mg 40 mg, Oral, 2 Times Daily, First dose on 01/26/24 at 0900, Caution: Look alike/sound alike drug alert Given 01/27/2024 11:25 AM EDT 40 mg Given 01/26/2024 8:45 PM EDT 40 mg Given 01/26/2024 8:22 AM EDT 40 mg furosemide (LASIX) tablet 20 mg 20 mg, Oral, Daily, First dose on 01/26/24 at 0900, Hold for SBP less than 100, DBP less than 60. Given 01/27/2024 8:24 AM EDT 20 mg hydrOXYzine (ATARAX) tablet 25 mg 25 mg, Oral, 3 Times Daily PRN, Itching, Starting on 01/27/24 at 1110, Caution: Look alike/sound alike drug alert Given 01/27/2024 11:25 AM EDT 25 mg ketorolac (TORADOL) injection 15 mg 15 mg, Intravenous, Once, On 01/26/24 at 0058, For 1 dose, Based on patient request - if ordered for moderate or severe pain, provider allows for administration of a medication prescribed for a lower pain scale. {BKC} If given for pain, use the following pain scale: Mild Pain = Pain Score of 1-3, CPOT 1-2 Moderate Pain = Pain Score of 4-6, CPOT 3-4 Severe Pain = Pain Score of 7-10, CPOT 5-8 Given 01/26/2024 1:21 AM EDT 15 mg ketorolac (TORADOL) injection 15 mg 15 mg, Intravenous, Every 6 Hours PRN, Severe Pain, Starting on 01/26/24 at 0800, For 120 hours, Based on patient request - if ordered for moderate or severe pain, provider allows for administration of a medication prescribed for a lower pain scale. {BKC} If given for pain, use the following pain scale: Mild Pain = Pain Score of 1-3, CPOT 1-2 Moderate Pain = Pain Score of 4-6, CPOT 3-4 Severe Pain = Pain Score of 7-10, CPOT 5-8 Given 01/26/2024 8:45 PM EDT 1 5 mg Given 01/26/2024 10:03 AM EDT 15 mg lactated ringers bolus 1,000 mL 1,000 mL, Intravenous, at 2,000 mL/hr, Administer over 0.5 Hours, Once, On 01/26/24 at 0058, For 1 dose New Bag 01/26/2024 1:22 AM EDT 1,000 mL 2000 mL/hr levothyroxine (SYNTHROID, LEVOTHROID) tablet 125 mcg 125 mcg, Oral, Daily, First dose on 01/26/24 at 0600, Take on empty stomach. Given 01/27/2024 5:30 AM EDT 125 mcg Given 01/26/2024 5:18 AM EDT 125 mcg ondansetron (ZOFRAN) injection 4 mg 4 mg, Intravenous, Once, On 01/26/24 at 0058, For 1 dose, If multiple N/V medications ordered, use in the following order: Ondansetron, Prochlorperazine, Promethazine. Use PO unless patient refuses or patient unable to swallow. Given 01/26/2024 1:19 AM EDT 4 mg ondansetron (ZOFRAN) injection 4 mg 4 mg, Intravenous, Every 6 Hours PRN, Nausea, Vomiting, Starting on 01/26/24 at 0402 Given 01/26/2024 5:18 AM EDT 4 mg pantoprazole (PROTONIX) EC tablet 40 mg 40 mg, Oral, 2 Times Daily, First dose on 01/26/24 at 0900, Do not crush or chew the capsules or tablets. The drug may not work as designed if the capsule or tablet is crushed or chewed. Swallow whole. Substitution for Pantoprazole 20 mg PO BID Swallow whole; do not crush, split, or chew. Given 01/27/2024 8:16 AM EDT 40 mg Given 01/26/2024 8:45 PM EDT 40 mg Given 01/26/2024 8:22 AM EDT 40 mg piperacillin-tazobactam (ZOSYN) 3.375 g IVPB in 100 mL NS MBP (CD) 3.375 g, Intravenous, Once, On 01/26/24 at 0152, For 1 dose, Indications: Urinary Tract InfectionIndications:Urinary Tract Infection New Bag 01/26/2024 2:23 AM EDT 3.375 g polyethylene glycol (MIRALAX) packet 17 g 17 g, Oral, Daily PRN, Constipation, Use if senna-docusate is ineffective, Starting on 01/26/24 at 0504, Use if no bowel movement after 12 hours. Mix in 6-8 ounces of water. Use 4-8 ounces of water, tea, or juice for each 17 gram dose. pregabalin (LYRICA) capsule 150 mg 150 mg, Oral, Every 12 Hours Scheduled, First dose on 01/26/24 at 0900, {ROSA} Given 01/27/2024 8:16 AM EDT 150 mg Given 01/26/2024 8:45 PM EDT 150 mg Given 01/26/2024 8:22 AM EDT 150 mg sennosides-docusate (PERICOLACE) 8.6-50 MG per tablet 2 tablet 2 tablet, Oral, 2 Times Daily PRN, Constipation, Starting on 01/26/24 at 0504, Start bowel management regimen if patient has not had a bowel movement after 12 hours. sodium chloride 0.9 % bolus 1,000 mL 1,000 mL, Intravenous, at 2,000 mL/hr, Administer over 0.5 Hours, Once, On 01/26/24 at 0152, For 1 dose New Bag 01/26/2024 2:20 AM EDT 1,000 mL 2000 mL/hr sodium chloride 0.9 % flush 10 mL 10 mL, Intravenous, As Needed, Line Care, Starting on 01/26/24 at 0041 sodium chloride 0.9 % flush 10 mL 10 mL, Intravenous, Every 12 Hours Scheduled, First dose on 01/26/24 at 0900 Given 01/27/2024 8:16 AM EDT 10 mL Given 01/26/2024 8:46 PM EDT 10 mL Given 01/26/2024 8:22 AM EDT 10 mL documented in this encounter Active and Recently Administered Medications Times are shown in EDT. Scheduled Medication Order 01/25/2024 01/26/2024 01/27/2024 atorvastatin (LIPITOR) tablet 10 mg 10 mg, Oral, Daily, First dose on 01/26/24 at 0900, Avoid grapefruit juice., On hold since 01/26/2024 at 0703 until manually unheld 0703 (Held by provider - Provider: Pebbles Beauchamp DO - Reason: Abnormal Labs)0900 (Dose Auto Held - Provider: Pebbles Beauchamp DO) 0900 (Dose Auto Held - Provider: Pebbles Beauchamp DO)1642 (Unheld by provider - Provider: Automatic Discharge Provider) budesonide-formoterol (SYMBICORT) 160-4.5 MCG/ACT inhaler 2 puff 2 puff, Inhalation, 2 Times Daily - RT, First dose on 01/26/24 at 0930, {SP} Shake well. Rinse mouth after use, do not swallow water. Send aerosols to pharmacy in ziplock bag for proper disposal. 0841 (Given - Provider: Chikis Shi, MANAGER OF BUSINESS)1945 (Given - Provider: Makenna Wiggins, PALLETIZER OPERATOR)2129 (Canceled Entry - Provider: Makenna Wiggins RRT) 930 (Given - Provider: Hoa Abbasi, MARIXA) buPROPion SR (WELLBUTRIN SR) 12 hr tablet 150 mg 150 mg, Oral, 2 Times Daily, First dose on 01/26/24 at 0900, Do not crush or chew the capsules or tablets. The drug may not work as designed if the capsule or tablet is crushed or chewed. Swallow whole. Caution: Look alike/sound alike drug alert. Swallow whole. Do not crush, chew, or split tablet. 08 (Given - Provider: Chai Martinez RN)2044 (Given - Provider: Chanelle Marte RN) 08 (Given - Provider: Chai Martinez RN) Enoxaparin Sodium (LOVENOX) syringe 40 mg 40 mg, Subcutaneous, Every 12 Hours, First dose on 01/26/24 at 0900, Give subcutaneous in abdomen only. Do not massage site after injection., Indications: VTE Prophylaxis 821 (Given - Provider: Chai Martinez RN)2044 (Given - Provider: Chanelle Marte RN) 08 (Given - Provider: Chai Martinez RN) ertapenem (INVanz) 1,000 mg in sodium chloride 0.9 % 100 mL MBP 1,000 mg, Intravenous, at 200 mL/hr, Administer over 30 Minutes, Every 24 Hours, First dose on 01/26/24 at 0800, For 5 days, Caution: Look alike/sound alike drug alert., Indications: Urinary Tract Infection 820 (New Bag - Provider: Chai Martinez RN) 08 (New Bag - Provider: Chai Martinez RN) ferrous sulfate tablet 325 mg 325 mg, Oral, Daily, First dose on 01/26/24 at 0800, Swallow whole. Do not crush, split, or chew. Take with food if GI upset occurs. 821 (Given - Provider: Chai Martinez RN) 08 (Given - Provider: Chai Martinez RN) FLUoxetine (PROzac) capsule 40 mg 40 mg, Oral, 2 Times Daily, First dose on 01/26/24 at 0900, Caution: Look alike/sound alike drug alert 821 (Given - Provider: Chai Martinez RN)2044 (Given - Provider: Chanelle Marte RN) 112 (Given - Provider: Chai Martinez RN) furosemide (LASIX) tablet 20 mg 20 mg, Oral, Daily, First dose on 01/26/24 at 0900, Hold for SBP less than 100, DBP less than 60. 08 (Not Given - Provider: Chai Martinez RN - Reason: Patient/family refused - Comment: TAKES PRN) 0824 (Given - Provider: Chai Martinez RN) ketorolac (TORADOL) injection 15 mg (COMPLETED) 15 mg, Intravenous, Once, On 01/26/24 at 0058, For 1 dose, Based on patient request - if ordered for moderate or severe pain, provider allows for administration of a medication prescribed for a lower pain scale. {BKC} If given for pain, use the following pain scale: Mild Pain = Pain Score of 1-3, CPOT 1-2 Moderate Pain = Pain Score of 4-6, CPOT 3-4 Severe Pain = Pain Score of 7-10, CPOT 5-8 0121 (Given - Provider: Lian Howell RN) lactated ringers bolus 1,000 mL (COMPLETED) 1,000 mL, Intravenous, at 2,000 mL/hr, Administer over 0.5 Hours, Once, On 01/26/24 at 0058, For 1 dose 0122 (New Bag - Provider: Lian Howell RN)0203 (Stopped - Provider: Lynda Cordero RN) levothyroxine (SYNTHROID, LEVOTHROID) tablet 125 mcg 125 mcg, Oral, Daily, First dose on 01/26/24 at 0600, Take on empty stomach. 0518 (Given - Provider: Chanelle Marte RN) 0530 (Given - Provider: Chanelle Marte RN) losartan (COZAAR) tablet 100 mg 100 mg, Oral, Daily, First dose on 01/26/24 at 0900, Hold for SBP less than 100, DBP less than 60., On hold since 01/26/2024 at 0703 until manually unheld 0703 (Held by provider - Provider: Pebbles Beauchamp DO - Reason: Abnormal Labs)0900 (Dose Auto Held - Provider: Pebbles Beauchamp DO) 0900 (Dose Auto Held - Provider: Pebbles Beauchamp DO)1642 (Unheld by provider - Provider: Automatic Discharge Provider) ondansetron (ZOFRAN) injection 4 mg (COMPLETED) 4 mg, Intravenous, Once, On 01/26/24 at 0058, For 1 dose, If multiple N/V medications ordered, use in the following order: Ondansetron, Prochlorperazine, Promethazine. Use PO unless patient refuses or patient unable to swallow. 0119 (Given - Provider: Lian Howell RN) pantoprazole (PROTONIX) EC tablet 40 mg 40 mg, Oral, 2 Times Daily, First dose on 01/26/24 at 0900, Do not crush or chew the capsules or tablets. The drug may not work as designed if the capsule or tablet is crushed or chewed. Swallow whole. Substitution for Pantoprazole 20 mg PO BID Swallow whole; do not crush, split, or chew. 08 (Given - Provider: Chai Martinez RN)2044 (Given - Provider: Chanelle Marte, DIANE) 0816 (Given - Provider: Chai Martinez, DIANE) piperacillin-tazobactam (ZOSYN) 3.375 g IVPB in 100 mL NS MBP (CD) (COMPLETED) 3.375 g, Intravenous, Once, On 01/26/24 at 0152, For 1 dose, Indications: Urinary Tract Infection 0223 (New Bag - Provider: Lian Howell RN)0253 (Stopped - Provider: Sydnee Orlando RN) pregabalin (LYRICA) capsule 150 mg 150 mg, Oral, Every 12 Hours Scheduled, First dose on 01/26/24 at 0900, {ROSA} 821 (Given - Provider: Chai Martinez RN)2044 (Given - Provider: Chanelle Marte, DIANE) 0816 (Given - Provider: Chai Martinez, DIANE) sodium chloride 0.9 % bolus 1,000 mL (COMPLETED) 1,000 mL, Intravenous, at 2,000 mL/hr, Administer over 0.5 Hours, Once, On 01/26/24 at 0152, For 1 dose 0220 (New Bag - Provider: Lian Howell RN)0407 (Stopped - Provider: Fabio Connor RN) sodium chloride 0.9 % flush 10 mL 10 mL, Intravenous, Every 12 Hours Scheduled, First dose on 01/26/24 at 0900 0822 (Given - Provider: Chai Martinez RN)2045 (Given - Provider: Chanelle Marte, DIANE) 0816 (Given - Provider: Chai Martinez, DIANE) PRN Medication Order 01/25/2024 01/26/2024 01/27/2024 acetaminophen (TYLENOL) 160 MG/5ML oral solution 650 mg(Linked Group 1) 650 mg, Oral, Every 4 Hours PRN, Mild Pain, Starting on 01/26/24 at 0504, If given for fever, use fever parameter: fever greater than 100.4 ??F Based on patient request - if ordered for moderate or severe pain, provider allows for administration of a medication prescribed for a lower pain scale. Do not exceed 4 grams of acetaminophen in a 24 hr period. Max dose of 2gm for AST/ALT greater than 120 units/L. If given for pain, use the following pain scale: Mild Pain = Pain Score of 1-3, CPOT 1-2 Moderate Pain = Pain Score of 4-6, CPOT 3-4 Severe Pain = Pain Score of 7-10, CPOT 5-8 0531 (Not Given: See Alt - Provider: Chanelle Marte RN)1215 (Not Given: See Alt - Provider: Chai Martinez RN) acetaminophen (TYLENOL) suppository 650 mg(Linked Group 1) 650 mg, Rectal, Every 4 Hours PRN, Mild Pain, Starting on 01/26/24 at 0504, If given for fever, use fever parameter: fever greater than 100.4 ??F Based on patient request - if ordered for moderate or severe pain, provider allows for administration of a medication prescribed for a lower pain scale. Do not exceed 4 grams of acetaminophen in a 24 hr period. Max dose of 2gm for AST/ALT greater than 120 units/L. If given for pain, use the following pain scale: Mild Pain = Pain Score of 1-3, CPOT 1-2 Moderate Pain = Pain Score of 4-6, CPOT 3-4 Severe Pain = Pain Score of 7-10, CPOT 5-8 0531 (Not Given: See Alt - Provider: Chanelle Marte RN)1215 (Not Given: See Alt - Provider: Chai Martinez RN) acetaminophen (TYLENOL) tablet 650 mg(Linked Group 1) 650 mg, Oral, Every 4 Hours PRN, Mild Pain, Starting on 01/26/24 at 0504, If given for fever, use fever parameter: fever greater than 100.4 ??F Based on patient request - if ordered for moderate or severe pain, provider allows for administration of a medication prescribed for a lower pain scale. Do not exceed 4 grams of acetaminophen in a 24 hr period. Max dose of 2gm for AST/ALT greater than 120 units/L. If given for pain, use the following pain scale: Mild Pain = Pain Score of 1-3, CPOT 1-2 Moderate Pain = Pain Score of 4-6, CPOT 3-4 Severe Pain = Pain Score of 7-10, CPOT 5-8 0531 (Given - Provider: Chanelle Marte RN)1215 (Return to [facility] - Provider: Chai Martinez, DIANE) albuterol (PROVENTIL) nebulizer solution 0.083% 2.5 mg/3mL 2.5 mg, Nebulization, Every 4 Hours PRN, Wheezing, Starting on 01/26/24 at 0504, Include Respiratory Treatment Education bisacodyl (DULCOLAX) EC tablet 5 mg(Linked Group 2) 5 mg, Oral, Daily PRN, Constipation, Use if polyethylene glycol is ineffective, Starting on 01/26/24 at 0504, Use if no bowel movement after 12 hours. Swallow whole. Do not crush, split, or chew tablet. bisacodyl (DULCOLAX) suppository 10 mg(Linked Group 2) 10 mg, Rectal, Daily PRN, Constipation, Use if bisacodyl oral is ineffective, Starting on 01/26/24 at 0504, Use if no bowel movement after 12 hours. Hold for diarrhea cyclobenzaprine (FLEXERIL) tablet 10 mg 10 mg, Oral, 3 Times Daily PRN, Muscle Spasms, Starting on 01/26/24 at 0504 0518 (Given - Provider: Chanelle Marte RN)1417 (Given - Provider: Chai Martinez RN)2045 (Return to [facility] - Provider: Chanelle Marte RN) hydrOXYzine (ATARAX) tablet 25 mg 25 mg, Oral, 3 Times Daily PRN, Itching, Starting on 01/27/24 at 1110, Caution: Look alike/sound alike drug alert 1125 (Given - Provid er: Chai Martinez RN) ketorolac (TORADOL) injection 15 mg 15 mg, Intravenous, Every 6 Hours PRN, Severe Pain, Starting on 01/26/24 at 0800, For 120 hours, Based on patient request - if ordered for moderate or severe pain, provider allows for administration of a medication prescribed for a lower pain scale. {BKC} If given for pain, use the following pain scale: Mild Pain = Pain Score of 1-3, CPOT 1-2 Moderate Pain = Pain Score of 4-6, CPOT 3-4 Severe Pain = Pain Score of 7-10, CPOT 5-8 0528 (Not Given - Provider: Chanelle Marte RN - Reason: Other - Comment: too close to previous dose. Med wasted.)1003 (Given - Provider: Chai Martinez, RN)2044 (Given - Provider: Chanelle Marte RN) ondansetron (ZOFRAN) injection 4 mg 4 mg, Intravenous, Every 6 Hours PRN, Nausea, Vomiting, Starting on 01/26/24 at 0402 0518 (Given - Provider: Chanelle Marte RN)1214 (Return to Cabinet - Provider: Chai Martinez RN) polyethylene glycol (MIRALAX) packet 17 g(Linked Group 2) 17 g, Oral, Daily PRN, Constipation, Use if senna-docusate is ineffective, Starting on 01/26/24 at 0504, Use if no bowel movement after 12 hours. Mix in 6-8 ounces of water. Use 4-8 ounces of water, tea, or juice for each 17 gram dose. sennosides-docusate (PERICOLACE) 8.6-50 MG per tablet 2 tablet(Linked Group 2) 2 tablet, Oral, 2 Times Daily PRN, Constipation, Starting on 01/26/24 at 0504, Start bowel management regimen if patient has not had a bowel movement after 12 hours. sodium chloride 0.9 % flush 10 mL(Linked Group 3) 10 mL, Intravenous, As Needed, Line Care, Starting on 01/26/24 at 0041 sodium chloride 0.9 % flush 10 mL 10 mL, Intravenous, As Needed, Line Care, Starting on 01/26/24 at 0504 sodium chloride 0.9 % infusion 40 mL 40 mL, Intravenous, at 100 mL/hr, As Needed, Line Care, Starting on 01/26/24 at 0504, Following administration of an IV intermittent medication, flush line with 40mL NS at 100mL/hr. Linked Groups Order Group 1: acetaminophen (TYLENOL) tablet 650 mgJump to med 650 mg, Oral, Every 4 Hours PRN, Mild Pain, Starting on 01/26/24 at 0504, If given for fever, use fever parameter: fever greater than 100.4 ??F Based on patient request - if ordered for moderate or severe pain, provider allows for administration of a medication prescribed for a lower pain scale. Do not exceed 4 grams of acetaminophen in a 24 hr period. Max dose of 2gm for AST/ALT greater than 120 units/L. If given for pain, use the following pain scale: Mild Pain = Pain Score of 1-3, CPOT 1-2 Moderate Pain = Pain Score of 4-6, CPOT 3-4 Severe Pain = Pain Score of 7-10, CPOT 5-8 Or acetaminophen (TYLENOL) 160 MG/5ML oral solution 650 mgJump to med 650 mg, Oral, Every 4 Hours PRN, Mild Pain, Starting on 01/26/24 at 0504, If given for fever, use fever parameter: fever greater than 100.4 ??F Based on patient request - if ordered for moderate or severe pain, provider allows for administration of a medication prescribed for a lower pain scale. Do not exceed 4 grams of acetaminophen in a 24 hr period. Max dose of 2gm for AST/ALT greater than 120 units/L. If given for pain, use the following pain scale: Mild Pain = Pain Score of 1-3, CPOT 1-2 Moderate Pain = Pain Score of 4-6, CPOT 3-4 Severe Pain = Pain Score of 7-10, CPOT 5-8 Or acetaminophen (TYLENOL) suppository 650 mgJump to med 650 mg, Rectal, Every 4 Hours PRN, Mild Pain, Starting on 01/26/24 at 0504, If given for fever, use fever parameter: fever greater than 100.4 ??F Based on patient request - if ordered for moderate or severe pain, provider allows for administration of a medication prescribed for a lower pain scale. Do not exceed 4 grams of acetaminophen in a 24 hr period. Max dose of 2gm for AST/ALT greater than 120 units/L. If given for pain, use the following pain scale: Mild Pain = Pain Score of 1-3, CPOT 1-2 Moderate Pain = Pain Score of 4-6, CPOT 3-4 Severe Pain = Pain Score of 7-10, CPOT 5-8 Group 2: sennosides-docusate (PERICOLACE) 8.6-50 MG per tablet 2 tabletJump to med 2 tablet, Oral, 2 Times Daily PRN, Constipation, Starting on 01/26/24 at 0504, Start bowel management regimen if patient has not had a bowel movement after 12 hours. And polyethylene glycol (MIRALAX) packet 17 gJump to med 17 g, Oral, Daily PRN, Constipation, Use if senna-docusate is ineffective, Starting on 01/26/24 at 0504, Use if no bowel movement after 12 hours. Mix in 6-8 ounces of water. Use 4-8 ounces of water, tea, or juice for each 17 gram dose. And bisacodyl (DULCOLAX) EC tablet 5 mgJump to med 5 mg, Oral, Daily PRN, Constipation, Use if polyethylene glycol is ineffective, Starting on 01/26/24 at 0504, Use if no bowel movement after 12 hours. Swallow whole. Do not crush, split, or chew tablet. And bisacodyl (DULCOLAX) suppository 10 mgJump to med 10 mg, Rectal, Daily PRN, Constipation, Use if bisacodyl oral is ineffective, Starting on 01/26/24 at 0504, Use if no bowel movement after 12 hours. Hold for diarrhea Group 3: Insert Peripheral IV (CANCELED) Once, On 01/26/24 at 0042, For 1 occurrence And sodium chloride 0.9 % flush 10 mLJump to med 10 mL, Intravenous, As Needed, Line Care, Starting on 01/26/24 at 0041 documented in this encounter Care Teams Back End Engineer Relationship Specialty Start Date End Date Salima Gonzáles DO [facility] [place] [phone] PCP - General Family Medicine 02/21/17 documented as of this encounter
--- OUTSIDE RECORDS SUMMARY | 2024-04-06 21:55 | XMS_ITS | Encounter Summary ---
[facility] [address] [place] [address] Care Team Providers Care Performance Architect Name Role Phone Salima Gonzáles Primary Care Provider [phone] Reason for Visit * Reason Comments Palpitations CCTA Results Encounter Details Date Type Department Care Team (Late st Contact Info) Description 04/03/2023 10:30 AM EST Office Visit [facility] [address] [id number] Alea Juarez, LEAD PHARMACY TECHNICIAN [address] [place] [address] Abnormal nuclear stress test (Primary Dx); Palpitations; Shortness of breath; MAGDI (obstructive sleep apnea) Social History Tobacco Use Types Packs/Day Years Used Date Smoking Tobacco: Former Cigarettes 1 58 1 06/13/1963 - 04/12/2022 Passive Smoke Exposure: Past Smokeless Tobacco: Never Tobacco Cessation:Counseling Given: No Alcohol Use Standard Drinks/Week Comments No 0 [...] Sign Reading Time Taken Comments Blood Pressure 106/72 04/03/2023 10:20 AM EST Pulse 80 04/03/2023 10:20 AM EST Temperature - - Respiratory Rate - - Oxygen Saturation 98% 04/03/2023 10:20 AM EST Inhaled Oxygen Concentration - - Weight 119 kg (263 lb) 04/03/2023 10:20 AM EST Height 157.5 cm (5' 2 ) 04/03/2023 10:20 AM EST Body Mass Index 48.1 04/03/2023 10:20 AM EST documented in this encounter Progress Notes * Alea Juarez APRN - 04/03/2023 12:37 PM ESTAssociated Problem(s): MAGDI (obstructive sleep apnea) Diagnosed with MAGDI years ago but has been unable to tolerate PAP therapy. Encouraged patient to restart PAP therapy and contact [employer] to find a better mask that does not cause migraines. * Alea Juarez APRN - 04/03/2023 12:36 PM ESTAssociated Problem(s): Abnormal nuclear stress test Nuclear stress test from 12/26/2022 revealed a possible small area of anterior ischemia. Overall still a low risk study. She completed a Coronary CTA on 03/27/2023 [...] of the RCA. Overall there is a moderateamount of total coronary plaque present. Lipid panel from 11/22/2022 reviewed, cholesterol 107, HDL 57, LDL 32, triglycerides 88. Currently at goal. -Continue Simvastatin at current dose. -Encouraged vaping cessation- she has a planned quit date of 04/12/23. -Maintain good control of blood sugar * Alea Juarez APRN - 04/03/2023 12:32 PM ESTAssociated Problem(s): Shortness of breath SOB has improved since starting lasix. Echo from 02/08/23 showed and LVEF of 66- 70% and normal left ventricular diastolic function. * Alea Juarez APRN - 04/03/2023 12:31 PM ESTAssociated Problem(s): Palpitations 2-day cardiac event monitor was completed by PCP on 11/20/2022- average heart rate was 73 bpm. Tachycardia and supraventricular ectopic beats were noted noted but no other arrhythmias. No A-fib or flutter. No pauses or blocks. Patient reports that palpitations have decreased since last office visit. -Limit caffeine intake. - Consider repeat Holter monitor for a longer duration if symptoms persist * Alea Juarez APRN - 04/03/2023 10:30 AM EST Images from the original note were not included. [facility] Provider Note Date: 04/03/2023 Name: Neetu Doherty : 1965 PCP: Salima Gonzáles DO Chief Complaint Patient presents with Palpitations CCTA Results Subjective History of Present Illness Neetu Doherty [...] anterior ischemia, overall still low risk study. She completed a Coronary CTA on 03/27/2023 that revealed moderate coronary calcification with Agatston score of 158.Technically difficult study with limited sensitivity and specificity due to suboptimal image quality. Mixed calcific and soft atherosclerotic disease within the mid and distal segments of the LAD causing mild stenosis. Predominantly calcific plaque in the proximal circumflex with minimal stenosis. No significant stenosis of the RCA. Overall there is a moderate amount of total coronary plaque present. Patient reports that she recently started feeling more short of breath and was evaluated by PCP. Labs obtained at that time which showed an elevated BNP (372). She was started on Lasix and potassium and reports improvement in shortness of breath. Echo from 02/08/23 showed and LVEF of 66-70% and normal left ventricular diastolic function. Lipid panel from 11/22/2022 reviewed, cholesterol 107, HDL 57, LDL 32, triglycerides 88. Currently at goal. She plans to quit vaping on 04/12/23. Cardiac/Sleep History 1. MAGDI intolerant to PAP therapy 2. HTN 3. HLD 4. Mild CAD 5. DM Echocardiogram 02/08/2023-LVEF 66-70%. Left ventricular diastolic function [...] moderate amount of total coronary plaque present. air sampling and monitoring 11/20/2022-average heart rate 73 bpm, minimum 54 bpm and maximum 103 bpm. Tachycardia was present at with a 0.15% burden and a high heart rate of 129 bpm. 8 patient events were detected. SVT-run event was detected 1. Ventricular ectopic beats were 1 (0%) and supraventricular ectopic beats were 7 (0.01%). Allergies Allergen Reactions Cefdinir Shortness Of Breath and Unknown (See Comments) Causes trouble breathing Morphine And Related Hallucinations Current Outpatient Medications: albuterol (PROVENTIL) (2.5 MG/3ML) 0.083% nebulizer solution, Take 2.5 mg by nebulization Every 4 (Four) Hours As Needed for Wheezing., Disp: , Rfl: ascorbic acid (VITAMIN C) 250 MG tablet, Take 1 tablet by mouth Daily., Disp: , Rfl: baclofen (LIORESAL) 10 MG tablet, TAKE ONE TABLET BY MOUTH TWICE DAILY MAY CAUSE DROWSINESS, Disp: , Rfl: budesonide-formoterol (Symbicort) 160-4.5 MCG/ACT inhaler, , Disp: , Rfl: buPROPion SR (WELLBUTRIN SR) 150 MG 12 hr tablet, Take 1 tablet by mouth 2 (Two) Times a Day., Disp: , Rfl: Continuous Blood Gluc Sensor (FreeStyle Niels 2 Sensor) [facility], USE DIRECTED FOR CONTINUOUS GLUCOSE MONITORING, Disp: , Rfl: cyanocobalamin (VITAMIN B-12) 1000 MCG tablet, Take 1 tablet by mouth Daily., Disp: , Rfl: cyclobenzaprine (FLEXERIL) 10 MG tablet, cyclobenzaprine 10 mg tablet, Disp: , Rfl: Diclofenac Sodium (VOLTAREN) 1 % gel gel, Place 4 g on the skin as directed by provider 4 (Four) Times a Day., Disp: , Rfl: dicyclomine (BENTYL) 10 MG capsule, TAKE ONE CAPSULE BY MOUTH EVERY 6 HOURS, Disp: , Rfl: Emgality 120 MG/ML auto-injector pen, INJECT 1 ML (120 MG) SUBCUTANEOUSLY ONCE a MONTH, Disp: , Rfl: EPINEPHrine (EPIPEN) 0.3 MG/0.3ML solution auto-injector injection, epinephrine 0.3 mg/0.3 mL injection, auto-injector, Disp: , Rfl: ferrous sulfate 325 (65 FE) MG tablet, Take 1 tablet by mouth Daily., Disp: , Rfl: fluconazole (DIFLUCAN) 150 MG tablet, Take 1 tablet by mouth Daily., Disp: , Rfl: FLUoxetine (PROzac) 40 MG capsule, Take 1 capsule by mouth Daily., Disp: , Rfl: furosemide (LASIX) 20 MG tablet, Take 1 tablet by mouth Daily., Disp: , Rfl: hydroCHLOROthiazide (HYDRODIURIL) 25 MG tablet, Take 1 tablet by mouth Daily., Disp: , Rfl: hydrOXYzine pamoate (VISTARIL) 25 MG capsule, Take 1 capsule by mouth., Disp: , Rfl: Januvia 100 MG tablet, Januvia 100 mg tablet, Disp: , Rfl: levothyroxine (SYNTHROID, LEVOTHROID) 125 MCG tablet, Take 1 tablet by mouth Daily., Disp: , Rfl: loratadine (CLARITIN) 10 MG tablet, Take 1 tablet by mouth Daily., Disp: , Rfl: losartan (COZAAR) 100 MG tablet, Take 1 tablet by mouth Daily., Disp: , Rfl: montelukast (SINGULAIR) 10 MG tablet, Take 1 tablet by mouth Every Night., Disp: , Rfl: multivitamin with minerals tablet tablet, Take 1 tablet by mouth Daily., Disp: , Rfl: Nurtec 75 MG dispersible tablet, DISSOLVE ONE TABLET in MOUTH DIRECTED NEEDED FOR MIGRAINE, Disp: , Rfl: nystatin (MYCOSTATIN) 137412 UNIT/GM cream, , Disp: , Rfl: nystatin-triamcinolone (MYCOLOG II) 658014-2.1 UNIT/GM-% cream, , Disp: , Rfl: ondansetron ODT (ZOFRAN-ODT) 4 MG disintegrating tablet, DISSOLVE ONE TABLET in MOUTH EVERY 8 HOURSAS NEEDED FOR NAUSEA, Disp: , Rfl: pantoprazole (PROTONIX) 20 MG EC tablet, Take 1 tablet by mouth Every 12 (Twelve) Hours., Disp: , Rfl: pantoprazole (PROTONIX) 40 MG EC tablet, Take 1 tablet by mouth., Disp: , Rfl: potassium chloride (MICRO-K) 10 MEQ CR capsule, Take 1 capsule by mouth Daily., Disp: , Rfl: pregabalin (LYRICA) 150 MG capsule, Take 1 capsule by mouth 2 (Two) Times a Day., Disp: , Rfl: Probiotic Product (Acidophilus Probiotic Blend) capsule, Take 1 capsule by mouth Daily., Disp: , Rfl: simvastatin (ZOCOR) 5 MG tablet, simvastatin 5 mg tablet, Disp: , Rfl: Skyrizi Pen 150 MG/ML solution auto-injector, , Disp: , Rfl: valsartan (DIOVAN) 320 MG tablet, , Disp: , Rfl: Past Medical History: Diagnosis Date Colitis 12/2022 Diabetes Hypertension Past Surgical History: Procedure Laterality Date SECTION CYST REMOVAL GALLBLADDER SURGERY GANGLION CYST EXCISION GASTRIC BYPASS HEEL SPUR SURGERY Left HYSTERECTOMY KIDNEY STONE SURGERY KNEE SURGERY Bilateral TONSILLECTOMY Family History Problem Relation Age of Onset Hypertension Mother Diabetes Mother Hypertension Father Diabetes Father Social History Socioeconomic History Marital status: Number of children: 2 Tobacco Use Smoking status: Former Packs/day: 1.00 Years: 58.00 Additional pack years: 0.00 Total pack years: 58.00 Types: Cigarettes Quit date: 04/12/2022 Years since quittin.9 Passive exposure: Past Smokeless tobacco: Never Vaping Use Vaping Use: Every day Start date: 04/27/2022 Substances: Flavoring Devices: Disposable Passive vaping exposure: Yes Substance and Sexual Activity Alcohol use: No Drug use: No Sexual activity: Defer Objective Vital Signs: BP 106/72 Pulse 80 Ht 157.5 cm (62 ) Wt 119 kg (263 lb) SpO2 98% BMI 48.10 kg/m?? Estimated body mass index is 48.1 kg/m?? as calculated from the following: Height as of this encounter: 157.5 cm (62 ). Weight as of this encounter: 119 kg (263 lb). Physical Exam Constitutional: Appearance: Normal appearance. She is well-developed. HENT: Head: Normocephalic and atraumatic. Eyes: Pupils: Pupils are equal, round, and reactive to light. Neck: Vascular: No carotid bruit. Cardiovascular: Rate and Rhythm: Normal rate and regular rhythm. Pulses: Normal pulses. Dorsalis pedis pulses are 2+ on the right side and 2+ on the left side. Posterior tibial pulses are 2+ on the right side and 2+ on the left side. Heart sounds: Normal heart sounds. No murmur heard. Pulmonary: Breath sounds: Normal breath sounds. No wheezing or rhonchi. Musculoskeletal: Right lower leg: No edema. Left lower leg: No edema. Skin: Capillary Refill: Capillary refill takes less than 2 seconds. Coloration: Skin is not cyanotic. Nails: There is no clubbing. Neurological: Mental Status: She is alert and oriented to person, place, and time. Motor: No weakness. Gait: Gait normal. Psychiatric: Mood and Affect: Mood normal. Behavior: Behavior is cooperative. Thought Content: Thought content normal. Cognition and Memory: Memory normal. Cardiology studies reviewed: Coronary CTA reviewed and Labs reviewed: Labs from 03/15/2023 reviewed Assessment and Plan Diagnoses and all orders for this visit: 1. Abnormal nuclear stress test (Primary) Assessment & Plan: Nuclear stress test from 12/26/2022 revealed a possible small area of anterior ischemia. Overall still a low risk study. She completed a Coronary CTA on 03/27/2023 [...] of the RCA. Overall there is a moderateamount of total coronary plaque present. Lipid panel from 11/22/2022 reviewed, cholesterol 107, HDL 57, LDL 32, triglycerides 88. Currently at goal. -Continue Simvastatin at current dose. -Encouraged vaping cessation- she has a planned quit date of 04/12/23. -Maintain good control of blood sugar 2. Palpitations Assessment & Plan: 2-day cardiac event monitor was completed by PCP on 11/20/2022- average heart rate was 73 bpm. Tachycardia and supraventricular ectopic beats were noted noted but no other arrhythmias. No A-fib or flutter. No pauses or blocks. Patient reports that palpitations have decreased since last office visit. -Limit caffeine intake. - Consider repeat Holter monitor for a longer duration if symptoms persist 3. Shortness of breath Assessment & Plan: SOB has improved since starting lasix. Echo from 02/08/23 showed and LVEF of 66- 70% and normal left ventricular diastolic function. 4. MAGDI (obstructive sleep apnea) Assessment & Plan: Diagnosed with MAGDI years ago but has been unable to tolerate PAP therapy. Encouraged patient to restart PAP therapy and contact [employer] company to find a better mask that does not cause migraines. Recommendations: Report if any new/changing symptoms immediately Follow Up Return in about 6 months (around 10/02/2023). Patient was given instructions and counseling regarding her condition or for health maintenance advice. Please see specific information pulled into the AVS if appropriate. documented in this encounter Plan of Treatment Not on file documented as of this encounter Visit Diagnoses Diagnosis Abnormal nuclear stress test- Primary Palpitations Shortness of breath MAGDI (obstructive sleep apnea) Obstructive sleep apnea (adult) (pediatric) documented in this encounter Care Teams Performance Architect Relationship Specialty Start Date End Date Salima Gonzáles DO [address] [place] [address] PCP - General Family Medicine 02/21/17 documented as of this encounter
--- OUTSIDE RECORDS SUMMARY | 2024-04-06 21:55 | XMS_ITS | Encounter Summary ---
[facility] [address] [place] [address] Care Team Providers Care Hyperbaric Technician Name Role Phone Salima Gonzáles DO Primary Care Provider [phone] Encounter Details Date Type Department Care Team (Late st Contact Info) Description 02/28/2023 Telephone [facility] [address] [place] [phone] Alea Juarez, STRETCHER OPERATOR [address] [place] [address] Social History Tobacco Use Types Packs/Day Years [...] on file documented as of this encounter Miscellaneous Notes * Telephone Encounter - Jen Chu MA - 02/28/2023 9:04 AM EDT Patient is scheduled for CTA at on 03/07/2023. documented in this encounter Plan of Treatment Not on file documented as of this encounter Visit Diagnoses Not on filedocumented in this encounter Care Teams Hyperbaric Technician Relationship Specialty Start Date End Date Salima Gonzáles DO [facility] [place] [address] PCP - General Family Medicine 02/21/17 documented as of this encounter
--- OUTSIDE RECORDS SUMMARY | 2024-04-06 21:55 | XMS_ITS | Encounter Summary ---
Author Organization [facility] Address [address] [place] [address] Care Team Providers Care Signal Tower Director Name Role Phone Eliecer Salima Radha Primary Care Provider [phone] Reason for Referral * Cardiac (Routine) - Closed Specialty Diagnoses / Procedures Referred By Josep t Referred To Contact Diagnoses Palpitations Procedures Holter Monitor - 72 Hour Up To 15 Days Alea Juarez APRN [address] [address] Phone: tel: fax: [facility] [address] [place] [address] Phone: tel: Referral ID Status Reason Start Date Expiration Date Visits Re quested Visits Authorized [id number] Closed 08/01/2023 07/31/2024 1 1 Reason for Visit * Reason Comments Shortness of Breath Pt last seen 023 with abnormal stress. Continue to have c/o SOA.. Encounter Details Date Type Department Care Team (Late st Contact Info) Description 08/01/2023 9:00 AM EDT Office Visit [facility] [address] [place] [id number] Alea Juarez APRN [address] [place] [id number] Shortness of breath (Primary Dx); Palpitations Social History Tobacco Use Types Packs/Day [...] Sign Reading Time Taken Comments Blood Pressure 126/68 08/01/2023 8:31 AM EDT Pulse 78 08/01/2023 8:31 AM EDT Temperature - - Respiratory Rate - - Oxygen Saturation 99% 08/01/2023 8:31 AM EDT Inhaled Oxygen Concentration - - Weight 119 kg (262 lb) 08/01/2023 8:31 AM EDT Height 157.5 cm (5' 2 ) 08/01/2023 8:31 AM EDT Body Mass Index 47.92 08/01/2023 8:31 AM EDT documented in this encounter Progress Notes * Alea Juarez APRN - 08/01/2023 11:32 AM EDTAssociated Problem(s): Palpitations Patient continues to experience frequent episodes of palpitations. She usually feels the palpitations and fast heart rate that radiates to her neck after eating. She also has GERD and takes Protonix daiily -7 day Holter monitor for further evaluation. -Take pepcid as needed for heartburn as symptoms usual occur after eating * Alea Juarez APRN - 08/01/2023 11:30 AM EDTAssociated Problem(s): Shortness of breath Shortness [...] COPD and is using albuterol nebulizers daily. - Trial of maintenance inhaler-Symbicort - Albuterol inhaler only as needed * Alea Juarez APRN - 08/01/2023 9:00 AM EDTAssociated Order(s): ECG 12 Lead Post-Procedure Diagnose(s): Shortness of breath Images from the original note were not included. [facility] Provider Note Date: 08/01/2023 Name: Neetu Doherty : 1965 PCP: Salima Gonzáles DO Chief Complaint Patient presents with Shortness of Breath Pt last seen 04/03/2023 with abnormal stress. Continue to have c/o SOA.. Subjective History of Present Illness Neetu Doherty is a 57 y.o. female with past medical history of hypertension, hypothyroidism, psoriatic arthritis, anxiety, diabetes, MAGDI and GERD who presents today for follow up on shortnessof breath and palpitations. Patient reports that in the last several weeks she has noticed increasing shortness of breath and palpitations. She usually feels the palpitations and fast heart rate thatradiates to her neck after eating. Symptoms seem to be worse after meals. She has a history of GERDand takes Protonix daily. She also has a history of mild COPD. She has not seen a night stocker recently. Uses albuterol nebulizers daily. She is not on a maintenance inhaler. She completed a cardiac workup last year, including a nuclear stress test echocardiogram and coronary CTA (results below). She continues to take Lasix and potassium that was started by her PCP for shortness of breath. She denies chest pain, dizziness or syncope. Lower extremity edema is mild and stable. Cardiac/Sleep History 1. MAGDI intolerant to PAP [...] moderate amount of total coronary plaque present. distresser 11/20/2022-average heart rate 73 bpm, minimum 54 [...] As Needed for Wheezing., Disp: , Rfl: baclofen (LIORESAL) 10 MG tablet, TAKE ONE TABLET BY MOUTH TWICE DAILY MAY CAUSE DROWSINESS, Disp: , Rfl: buPROPion (ZYBAN) 150 MG 12 hr tablet, Take 150 mg by mouth 2 (Two) Times a Day., Disp: , Rfl: buPROPion SR (WELLBUTRIN SR) 150 MG 12 hr tablet, Take 1 tablet by mouth 2 (Two) Times a Day., Disp: , Rfl: Continuous Blood Gluc Sensor (FreeStyle Niels 2 Sensor[place] [facility] [place]ED FOR CONTINUOUS GLUCOSE MONITORING, Disp: , Rfl: cyanocobalamin (VITAMIN B-12) 1000 MCG tablet, Take 1 tablet by mouth Daily., Disp: , Rfl: cyclobenzaprine (FLEXERIL) 10 MG tablet, cyclobenzaprine 10 mg tablet, Disp: , Rfl: Diclofenac Sodium (VOLTAREN) 1 % gel gel, Place 4 g on the skin as directed by provider 4 (Four) Times a Day., Disp: , Rfl: dicyclomine (BENTYL) 20 MG tablet, Take 1 tablet by mouth Every 8 (Eight) Hours., Disp: , Rfl: Emgality 120 MG/ML auto-injector [...] (Two) Times a Day., Disp: , Rfl: furosemide (LASIX) 20 MG tablet, Take 1 tablet by mouth Daily., Disp: , Rfl: hydrALAZINE (APRESOLINE) 25 MG tablet, Take 1 tablet by mouth As Needed., Disp: , Rfl: hydrOXYzine (ATARAX) 10 MG tablet, Take 1 tablet by mouth As Needed., Disp: , Rfl: hydrOXYzine pamoate (VISTARIL) 25 MG capsule, Take 1 capsule by mouth As Needed., Disp: , Rfl: ibuprofen (ADVIL,MOTRIN) 800 MG tablet, Take 0.5 tablets by mouth As Needed., Disp: , Rfl: levothyroxine (SYNTHROID, LEVOTHROID) 125 MCG tablet, Take 1 tablet by mouth Daily., Disp: , Rfl: loratadine (CLARITIN) 10 MG tablet, Take 1 tablet by mouth Daily., Disp: , Rfl: losartan (COZAAR) 100 MG tablet, Take 1 tablet by mouth Daily., Disp: , Rfl: montelukast (SINGULAIR) 10 MG tablet, Take 1 tablet by mouth Every Evening., Disp: , Rfl: multivitamin with minerals tablet tablet, Take 1 tablet by mouth Daily., Disp: , Rfl: Nurtec 75 MG dispersible tablet, DISSOLVE ONE TABLET in MOUTH DIRECTED NEEDED FOR MIGRAINE, Disp: , Rfl: pantoprazole (PROTONIX) 20 MG EC tablet, Take 1 tablet by mouth 2 (Two) Times a Day., Disp: , Rfl: potassium chloride (MICRO-K) 10 MEQ CR capsule, Take 1 capsule by mouth Daily., Disp: , Rfl: pregabalin (LYRICA) 150 MG capsule, Take 1 capsule by mouth 2 (Two) Times a Day., Disp: , Rfl: simvastatin (ZOCOR) 5 MG tablet, Take 1 tablet by mouth Daily., Disp: , Rfl: SITagliptin (Januvia) 100 MG tablet, Take 1 tablet by mouth Daily., Disp: , Rfl: Skyrizi Pen 150 MG/ML solution auto-injector, , Disp: , Rfl: budesonide-formoterol (Symbicort) 80-4.5 MCG/ACT inhaler, Inhale 2 puffs 2 (Two) Times a Day., Disp: 6.9 g, Rfl: 12 polyethylene glycol (GoLYTELY) 236 g solution, take 2000 ML (1/2 of liquid in bottle after mixing) BY MOUTH EVERY DAY DIRECTED FOR 2 DAYS (Patient not taking: Reported on 08/01/2023), Disp: , Rfl: Past Medical History: Diagnosis Date Anxiety associated [...] date: 1988 Quit date: 04/12/2022 Years since quittin.3 Passive exposure: Past Smokeless tobacco: Never Vaping Use Vaping status: Every Day Start date: 04/27/2022 Substances: Flavoring Devices: Disposable Passive vaping exposure: Yes Substance and Sexual Activity Alcohol use: No Drug use: No Sexual activity: Defer Objective Vital Signs: BP 126/68 (BP Location: Left arm, Patient Position: Sitting) Pulse 78 Ht 157.5 cm (62 ) Wt 119 kg (262 lb) SpO2 99% BMI 47.92 kg/m?? Estimated body mass index is 47.92 kg/m?? as calculated from the following: Height as of this encounter: 157.5 cm (62 ). Weight as of this encounter: 119 kg (262 lb). Physical Exam Vitals reviewed. Constitutional: Appearance: [...] and Affect: Mood normal. Behavior: Behavior normal. ECG 12 Lead Date/Time: 08/01/2023 11:32 AM Performed by: Alea Juarez APRN Authorized by: Alea Juarez APRN Comparison: compared with previous ECG from 12/13/2022 Similar to previous ECG Rhythm: sinus rhythm Rate: normal BPM: 65 Other findings: low voltage Clinical impression: non-specific ECG Assessment and Plan Diagnoses and all orders [...] COPD and is using albuterol nebulizers daily. - Trial of maintenance inhaler-Symbicort - Albuterol inhaler only as needed Orders: - budesonide-formoterol (Symbicort) 80-4.5 MCG/ACT inhaler; Inhale 2 puffs 2 (Two) Times a Day. Dispense: 6.9 g; Refill: 12 2. Palpitations Assessment & Plan: Patient continues to experience frequent episodes of palpitations. She usually feels the palpitations and fast heart rate that radiates to her neck after eating. She also has GERD and takes Protonix daiily -7 day Holter monitor for further evaluation. -Take pepcid as needed for heartburn as symptoms usual occur after eating Orders: - Holter Monitor - 72 Hour Up To 15 Days Other orders - ECG 12 Lead Recommendations: Report if any new/changing symptoms immediately Follow Up Return in about 5 weeks (around 09/05/2023) for Holter monitor result. follow up on Shortness of breath . Patient was given instructions and counseling regarding her condition or for health maintenance advice. Please see specific information pulled into the AVS if appropriate. documented in this encounter Plan of Treatment Not on file documented as of this encounter Procedures Procedure Name Priority Date/Time Associated Diagnosis Comments HOLTER MONITOR >48HRS UP TO 7 DAYS HOOK-UP & INTERP Routine 08/01/2023 1:19 PM EDT Palpitations ECG 12-LEAD Routine 08/01/2023 Shortness of breath documented in this encounter Results * HOLTER [...] for this exam include palpitations. Total beats: [id number]. Average HR: 69. Min HR: 40. Max HR: 127. Study Impressions A relatively benign monitor study. Rare nonsustained SVT. Patient triggers corresponded with supraventricular couplets or PACs. These were overall less than 1%. No life-threatening arrhythmias or pauses. See raw data for further information. Alea Juarez APRN [facility] Final Result * ECG 12-LEAD (08/01/2023) Narrative 08/01/2023 Alea Juarez APRN ? 08/01/2023 11:35 AM ECG 12 Lead Date/Time: 08/01/2023 11:32 AM Performed by: Alea Juarez APRN Authorized by: Alea Juarez APRN ??Comparison: compared with previous ECG from 12/13/2022 Similar to previous ECG Rhythm: sinus rhythm Rate: normal BPM: 65 Other findings: low voltage Clinical impression: non-specific ECG Procedure Note Alea Juarez APRN - 08/01/2023 9:00 AM EDT Images from the original note were not included. [facility] Provider Note Date: 08/01/2023 Name: Neetu Rosenthal Bessy : 1965 PCP: Salima Gonzáles DO Chief Complaint Patient presents with Shortness of Breath Pt last seen 04/03/2023 with abnormal stress. Continue to have c/oSOA.. Subjective History of Present Illness Neetu Doherty is a 57 y.o. female with past medical history ofhypertension, hypothyroidism, psoriatic arthritis, anxiety, diabetes, OSAand GERD who presents today for follow up on shortness of breath andpalpitations. Patient reports that in the last several weeks she hasnoticed increasing shortness of breath and palpitations. She usuallyfeels the palpitations and fast heart rate that radiates to her neck aftereating. Symptoms seem to be worse after meals. She has a history of GERDand takes Protonix daily. She also has a history of mild COPD. She hasnot seen a night stocker recently. Uses albuterol nebulizers daily. Sheis not on a maintenance inhaler. She completed a cardiac workup last year, including a nuclear stress testechocardiogram and coronary CTA (results below). She continues to takeLasix and potassium that was started by her PCP for shortness of breath.She denies chest pain, dizziness or syncope. Lower extremity edema ismild and stable. Cardiac/Sleep History 1. MAGDI intolerant to PAP therapy 2. HTN 3. HLD 4. Mild CAD 5. DM Echocardiogram 02/08/2023-LVEF 66-70%. Left ventricular diastolic functionwas normal. No significant valvular regurgitation or stenosis. RVSP isnormal. Nuclear stress test 12/26/22- Normal nuclear ejection fraction. Possiblesmall area of anterior ischemia. Overall still low risk study. Coronary CTA 03/27/2023-moderate coronary calcification with Agatstonscore of 158. Technically difficult study with limited sensitivity andspecificity due to suboptimal image quality. Mixed calcific and softatherosclerotic disease within the mid and distal segments of the LADcausing mild stenosis. Predominantly calcific plaque in the proximalcircumflex with minimal stenosis. No significant stenosis of the RCA.Overall there is a moderate amount of total coronary plaque present. distresser 11/20/2022-average heart rate 73 bpm, minimum 54 bpm andmaximum 103 bpm. Tachycardia was present at with a 0.15% burden and ahigh heart rate of 129 bpm. 8 patient events were detected. SVT-runevent was detected 1. Ventricular ectopic beats were 1 (0%) andsupraventricular ectopic beats were 7 (0.01%). Allergies Allergen Reactions Cefdinir Shortness Of Breath and Unknown (See Comments) Causes trouble breathing Morphine And Related Hallucinations Current Outpatient Medications: albuterol (PROVENTIL) (2.5 MG/3ML) 0.083% nebulizer solution, Take 2.5mg by nebulization Every 4 (Four) Hours As Needed for Wheezing., Disp: ,Rfl: baclofen (LIORESAL) 10 MG tablet, TAKE ONE TABLET BY MOUTH TWICE DAILYMAY CAUSE DROWSINESS, Disp: , Rfl: buPROPion (ZYBAN) 150 MG 12 hr tablet, Take 150 mg by mouth 2 (Two)Times a Day., Disp: , Rfl: buPROPion SR (WELLBUTRIN SR) 150 MG 12 hr tablet, Take 1 tablet by mouth2 (Two) Times a Day., Disp: , Rfl: Continuous Blood Gluc Sensor (FreeStyle Niels 2 Sensor[place] [facility] [place] USE ASDIRECTED FOR CONTINUOUS GLUCOSE MONITORING, Disp: , Rfl: cyanocobalamin (VITAMIN B-12) 1000 MCG tablet, Take 1 tablet by mouthDaily., Disp: , Rfl: cyclobenzaprine (FLEXERIL) 10 MG tablet, cyclobenzaprine 10 mg tablet,Disp: , Rfl: Diclofenac Sodium (VOLTAREN) 1 % gel gel, Place 4 g on the skin asdirected by provider 4 (Four) Times a Day., Disp: , Rfl: dicyclomine (BENTYL) 20 MG tablet, Take 1 tablet by mouth Every 8(Eight) Hours., Disp: , Rfl: Emgality 120 MG/ML auto-injector pen, INJECT 1 ML (120 MG)SUBCUTANEOUSLY ONCE a MONTH, Disp: , Rfl: EPINEPHrine (EPIPEN) 0.3 MG/0.3ML solution auto-injector injection,epinephrine 0.3 mg/0.3 mL injection, auto-injector, Disp: , Rfl: ferrous sulfate 325 (65 FE) MG tablet, Take 1 tablet by mouth Daily.,Disp: , Rfl: FLUoxetine (PROzac) 40 MG capsule, Take 1 capsule by mouth 2 (Two) Timesa Day., Disp: , Rfl: furosemide (LASIX) 20 MG tablet, Take 1 tablet by mouth Daily., Disp: ,Rfl: hydrALAZINE (APRESOLINE) 25 MG tablet, Take 1 tablet by mouth AsNeeded., Disp: , Rfl: hydrOXYzine (ATARAX) 10 MG tablet, Take 1 tablet by mouth As Needed.,Disp: , Rfl: hydrOXYzine pamoate (VISTARIL) 25 MG capsule, Take 1 capsule by mouth AsNeeded., Disp: , Rfl: ibuprofen (ADVIL,MOTRIN) 800 MG tablet, Take 0.5 tablets by mouth AsNeeded., Disp: , Rfl: levothyroxine (SYNTHROID, LEVOTHROID) 125 MCG tablet, Take 1 tablet bymouth Daily., Disp: , Rfl: loratadine (CLARITIN) 10 MG tablet, Take 1 tablet by mouth Daily., Disp:, Rfl: losartan (COZAAR) 100 MG tablet, Take 1 tablet by mouth Daily., Disp: ,Rfl: montelukast (SINGULAIR) 10 MG tablet, Take 1 tablet by mouth EveryEvening., Disp: , Rfl: multivitamin with minerals tablet tablet, Take 1 tablet by mouth Daily.,Disp: , Rfl: Nurtec 75 MG dispersible tablet, DISSOLVE ONE TABLET in MOUTH ASDIRECTED NEEDED FOR MIGRAINE, Disp: , Rfl: pantoprazole (PROTONIX) 20 MG EC tablet, Take 1 tablet by mouth 2 (Two)Times a Day., Disp: , Rfl: potassium chloride (MICRO-K) 10 MEQ CR capsule, Take 1 capsule by mouthDaily., Disp: , Rfl: pregabalin (LYRICA) 150 MG capsule, Take 1 capsule by mouth 2 (Two)Times a Day., Disp: , Rfl: simvastatin (ZOCOR) 5 MG tablet, Take 1 tablet by mouth Daily., Disp: ,Rfl: SITagliptin (Januvia) 100 MG tablet, Take 1 tablet by mouth Daily.,Disp: , Rfl: Skyrizi Pen 150 MG/ML solution auto-injector, , Disp: , Rfl: budesonide-formoterol (Symbicort) 80-4.5 MCG/ACT inhaler, Inhale 2 puffs2 (Two) Times a Day., Disp: 6.9 g, Rfl: 12 polyethylene glycol (GoLYTELY) 236 g solution, take 2000 ML (1/2 ofliquid in bottle after mixing) BY MOUTH EVERY DAY DIRECTED FOR 2 DAYS(Patient not taking: Reported on 08/01/2023), Disp: , Rfl: Past Medical History: Diagnosis Date Anxiety associated [...] date: 1988 Quit date: 04/12/2022 Years since quittin.3 Passive exposure: Past Smokeless tobacco: Never Vaping Use Vaping status: Every Day Start date: 04/27/2022 Substances: Flavoring Devices: Disposable Passive vaping exposure: Yes Substance and Sexual Activity Alcohol use: No Drug use: No Sexual activity: Defer Objective Vital Signs: BP 126/68 (BP Location: Left arm, Patient Position: Sitting) Pulse 78 Ht 157.5 cm (62 ) Wt 119 kg (262 lb) SpO2 99% BMI 47.92 kg/m?? Estimated body mass index is 47.92 kg/m?? as calculated from thefollowing: Height as of this encounter: 157.5 cm (62 ). Weight as of this encounter: 119 kg (262 lb). Physical Exam Vitals reviewed. Constitutional: Appearance: [...] and Affect: Mood normal. Behavior: Behavior normal. ECG 12 Lead Date/Time: 08/01/2023 11:32 AM Performed by: Alea Juarez APRN Authorized by: Alea Juarez APRN Comparison: compared withprevious ECG from 12/13/2022 Similar to previous ECG Rhythm: sinus rhythm Rate: normal BPM: 65 Other findings: low voltage Clinical impression: non-specific ECG Assessment and Plan Diagnoses and all orders for this visit: 1. Shortness of breath (Primary) Assessment & Plan: Shortness of breath initially improved after starting Lasix. She hasnoticed an increase in shortness of breath in the last several weeks. Echofrom 02/08/23 showed and LVEF of 66-70% and normal left ventriculardiastolic function. Coronary CTA completed on 03/27/2023 showed moderatecoronary calcification and mild stenosis in LAD. She has a history of mild COPD and is using albuterol nebulizers daily. - Trial of maintenance inhaler-Symbicort - Albuterol inhaler only as needed Orders: - budesonide-formoterol (Symbicort) 80-4.5 MCG/ACT inhaler; Inhale 2puffs 2 (Two) Times a Day. Dispense: 6.9 g; Refill: 12 2. Palpitations Assessment & Plan: Patient continues to experience frequent episodes of palpitations. Sheusually feels the palpitations and fast heart rate that radiates to herneck after eating. She also has GERD and takes Protonix daiily -7 day Holter monitor for further evaluation. -Take pepcid as needed for heartburn as symptoms usual occur after eating Orders: - Holter Monitor - 72 Hour Up To 15 Days Other orders - ECG 12 Lead Recommendations: Report if any new/changing symptoms immediately Follow Up Return in about 5 weeks (around 09/05/2023) for Holter monitor result.follow up on Shortness of breath . Patient was given instructions and counseling regarding her condition orfor health maintenance advice. Please see specific information pulled intothe AVS if appropriate. us Alea Juarez APRN ECG ORDERABLES Final Re sult documented in this encounter Visit Diagnoses Diagnosis Shortness of breath- Primary Palpitations documented in this encounter Care Teams Signal Tower Director Relationship Specialty Start Date End Date Salima Gonzáles DO [facility] [place] [address] PCP - General Family Medicine 02/21/17 documented as of this encounter
--- OUTSIDE RECORDS SUMMARY | 2024-04-06 21:55 | XMS_ITS | Clinical Summary ---
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 Active albuterol (PROVENTIL) (2.5 MG/3ML) 0.083% nebulizer solution Take 2.5 mg by nebulization Every 4 (Four) Hours As Needed for Wheezing. Active cyanocobalamin (VITAMIN B-12) 1000 MCG tablet Take 1 tablet by mouth Daily. Active cyclobenzaprine (FLEXERIL) 10 MG tablet Take 1 tablet by mouth 3 (Three) Times a Day As Needed for Muscle Spasms. Active Diclofenac Sodium (VOLTAREN) 1 % gel gel Place 4 g on the skin as directed by provider 4 (Four) Times a Day. Active EPINEPHrine (EPIPEN) 0.3 MG/0.3ML solution auto-injector injection epinephrine 0.3 mg/0.3 mL injection, auto-injector Active ferrous sulfate 325 (65 FE) MG tablet Take 1 tablet by mouth Daily. Active Emgality 120 MG/ML auto-injector pen INJECT 1 ML (120 MG) SUBCUTANEOUSLY ONCE a MONTH 11/14/19 23 Active multivitamin with minerals tablet tablet Take 1 tablet by mouth Daily. Active Nurtec 75 MG dispersible tablet DISSOLVE ONE TABLET in MOUTH DIRECTED NEEDED FOR MIGRAINE 06/12/20 23 Active Skyrizi Pen 150 MG/ML solution auto-injector 11/03/19 Active Continuous Blood Gluc Sensor (FreeStyle Niels 2 Sensor) [facility] [place]ED FOR CONTINUOUS GLUCOSE MONITORING 01/24/20 Active furosemide (LASIX) 20 MG tablet Take 1 tablet by mouth Daily. 03/15/20 Active potassium chloride (MICRO-K) 10 MEQ CR capsule Take 1 capsule by mouth Daily. 03/15/20 Active hydrOXYzine (ATARAX) 10 MG tablet Take 1 tablet by mouth As Needed. Active ibuprofen (ADVIL,MOTRIN) 800 MG tablet Take 0.5 tablets by mouth As Needed. Active polyethylene glycol (GoLYTELY) 236 g solution Active buPROPion SR (WELLBUTRIN SR) 150 MG 12 hr tablet Take 1 tablet by mouth 2 (Two) Times a Day. Active FLUoxetine (PROzac) 40 MG capsule Take 1 capsule by mouth 2 (Two) Times a Day. Active hydrOXYzine pamoate (VISTARIL) 25 MG capsule Take 1 capsule by mouth As Needed. Active levothyroxine (SYNTHROID, LEVOTHROID) 125 MCG tablet Take 1 tablet by mouth Daily. Active loratadine (CLARITIN) 10 MG tablet Take 1 tablet by mouth Daily. Active montelukast (SINGULAIR) 10 MG tablet Take 1 tablet by mouth Every Evening. Active pantoprazole (PROTONIX) 20 MG EC tablet Take 1 tablet by mouth 2 (Two) Times a Day. Active SITagliptin (Januvia) 100 MG tablet Take 1 tablet by mouth Daily. Active budesonide-form oterol (Symbicort) 80-4.5 MCG/ACT inhalerIndicati ons:Shortness of breath Inhale 2 puffs 2 (Two) Times a Day. 6.9 g 12 08/01/19 24 Active albuterol sulfate HFA 108 (90 Base) MCG/ACT inhaler Inhale 2 puffs Every 6 (Six) Hours As Needed. Active amoxicillin-cla vulanate (AUGMENTIN) 875-125 MG per tablet Take 1 tablet by mouth 2 (Two) Times a Day. 4 tablet 01/27/2024 12:49 PM EDT 01/27/20 24 Active Active Problems Problem Noted Date Diagnosed Date Chronic obstructive pulmonary disease 09/05/2023 Mild CAD 09/05/2023 Assessment & Plan (09/05/2023 10:39 AM EDT): She completed a Coronary CTA on 03/27/2023 [...] cessation -Maintain good control of blood sugar Abnormal nuclear stress test 02/12/2023 Assessment & Plan (04/03/2023 12:36 PM EST): Nuclear stress test from 12/26/2022 revealed a [...] 04/12/23. -Maintain good control of blood sugar Assessment & Plan (02/12/2023 3:56 PM EDT): Nuclear stress test from 12/26/2022 revealed a possible small area of anterior ischemia. Overall still a low risk study. We discussed further cardiac testing including a left heart cath and coronary CTA. Patient would like to proceed with a coronary CTA for further evaluation and management. Abnormal findings on diagnos tic imaging of heart and coronary circulation 02/12/2023 Precordial chest pain 12/13/2022 Assessment & Plan (02/12/2023 3:57 PM EDT): Stress test showed a possible small area of anterior ischemia. Echocardiogram revealed an LVEF of 66-70% and no significant valvular regurgitation or stenosis. Assessment & Plan (12/13/2022 2:20 PM EDT): Nuclear stress test for further evaluation. Shortness of breath 12/13/2022 Assessment & Plan (09/05/2023 10:51 AM EDT): Shortness of breath initially improved after starting [...] re-establish care. -Continue Symbicort - Pulmonology referral Assessment & Plan (08/01/2023 11:30 AM EDT): Shortness of breath initially improved after starting [...] inhaler-Symbicort - Albuterol inhaler only as needed Assessment & Plan (04/03/2023 12:32 PM EST): SOB has improved since starting lasix. Echo from 02/08/23 showed and LVEF of 66- 70% and normal left ventricular diastolic function. Assessment & Plan (12/13/2022 2:20 PM EDT): Likely multifactorial, patient has a history of asthma and obesity. Previous smoker but quit 04/2022 - Echo and nuclear stress test to rule out cardiac etiology of shortness of breath. Palpitations 12/13/2022 Assessment & Plan (09/05/2023 10:48 AM EDT): Palpitations have improved since last visit. Holter monitor from 08/01/23 revealed a relatively benign monitor study. Rare nonsustained SVT. Patient triggers corresponded with supraventricular couplets or PACs. These were overall less than 1%. No life-threatening arrhythmias or pauses. Assessment & Plan (08/01/2023 11:32 AM EDT): Patient continues to experience frequent episodes of palpitations. She usually feels the palpitations and fast heart rate that radiates to her neck after eating. She also has GERD and takes Protonix daiily -7 day Holter monitor for further evaluation. -Take pepcid as needed for heartburn as symptoms usual occur after eating Assessment & Plan (04/03/2023 12:31 PM EST): 2-day cardiac event monitor was completed by PCP on 11/20/2022- average heart rate was 73 bpm. Tachycardia and supraventricular ectopic beats were noted noted but no other arrhythmias. No A-fib or flutter. No pauses or blocks. Patient reports that palpitations have decreased since last office visit. -Limit caffeine intake. - Consider repeat Holter monitor for a longer duration if symptoms persist Assessment & Plan (02/12/2023 3:57 PM EDT): 2-day cardiac event monitor was completed by PCP on 11/20/2022- average heart rate was 73 bpm. Tachycardia and supraventricular ectopic beats were noted noted but no other arrhythmias. No A-fib or flutter. No pauses or blocks. Recent labs reviewed and unremarkable. -Limit caffeine intake. - Consider repeat Holter monitor for a longer duration if symptoms persist after stress test and echo. Assessment & Plan (12/13/2022 2:19 PM EDT): 2-day cardiac event monitor was completed by PCP on 11/20/2022- average heart rate was 73 bpm. Tachycardia and supraventricular ectopic beats were noted noted but no other arrhythmias. No A-fib or flutter. No pauses or blocks. Recent labs reviewed and unremarkable. -Limit caffeine intake. - Consider repeat Holter monitor for a longer duration if symptoms persist after stress test and echo. MAGDI (obstructive sleep apnea) 12/13/2022 Assessment & Plan (04/03/2023 12:37 PM EST): Diagnosed with MAGDI years ago but has been unable to tolerate PAP therapy. Encouraged patient to restart PAP therapy and contact [employer] to find a better mask that does not cause migraines. 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 Encouraged patient to restart PAP therapy and contact [employer] to find a better mask that does not cause migraines. Resolved Problems Problem Noted Date Diagnosed Date Resolved Date Back pain 01/26/2024 01/27/2024 Encounters Date Type Department Care Team Description 01/26/2024 12:25 AM EDT - 01/27/2024 2:41 PM EDT Emergency [address] [place] [address] Kris Bird MD Scott, Emma L, MD Gilbert, DO Cesar Trujillo Marc P, MD Hypotension due to hypovolemia (Primary Dx); Pyelonephritis Discharge Disposition: Home or Self Care from Last 3 Months Immunizations Name Administration Dates Next Due Flublok 18+yrs 02/21/2020 Fluzone (or Fluarix & Flulav al for VFC) >6mos 01/28/2021,03/12/2019,01/24/2018 Hepatitis A 05/11/2018,08/27/2017 Influenza Injectable Mdck Pf Quad 01/27/2022 Pneumococcal Conjugate 20-Valent (PCV20) 022 Pneumococcal Polysaccharide (PPSV23) 05/11/2018 Tdap 01/24/2018 Family History Medical History Relation Name Comments Diabetes Father Hypertension Father Diabetes Mother Hypertension Mother Multiple sclerosis Sister Relation Name Status Comments Father Alive Mother Sister Alive Social History Tobacco Use Types Packs/Day Years [...] on file Sexual Orientation Not on file Last Filed Vital Signs Vital Sign Reading [...] Mass Index 45.35 01/25/2024 11:41 PM EDT Plan of Treatment Health Maintenance Due Date Last Done Comments Annual Gynecologic Pelvic an d Breast Exam 1964 COLOGUARD 1964 COLON CANCER SCREENING 5 YEA R SIGMOIDOSCOPY 1964 COLONOSCOPY 1964 COLORECTAL CANCER SCREENING 1964 CT COLONOGRAPHY 1964 FECAL OCCULT BLOOD TEST 1964 FIT Testing (1 year) 1964 LIPID PANEL 1964 DIABETIC EYE EXAM 1974 URINE MICROALBUMIN 1974 Hepatitis B (1 of 3 - 19+ 3- dose series) 12/21/1983 MAMMOGRAM 2004 LUNG CANCER SCREENING 2014 ZOSTER VACCINE (1 of 2) 2014 ANNUAL WELLNESS VISIT 02/21/2017 DIABETIC FOOT EXAM 02/21/2017 HEPATITIS C SCREENING 02/21/2017 PAP SMEAR 02/21/2017 HEMOGLOBIN A1C 05/07/2022 11/04/2021, 04/07, 05/01/2021 INFLUENZA VACCINE 11/05/2023 02/22/2023, , 01/28/2021, Additional history exists BMI FOLLOWUP 12/14/2023 12/13/2022, 12/13/2022 COVID-19 Vaccine (5 - 2023-2 5 season) 2024 02/23/2022, 01/26/2021, 06/09/2020, Additional history exists TDAP/TD VACCINES (2 - Td or Tdap) 01/25/2028 018 Pneumococcal Vaccine 0-64 Completed 01/27/2022, 09/2018 Procedures Procedure Name Priority Date/Time Associated Diagnosis [...] CONTRAST STAT 01/26/2024 1:01 AM EDT CBC AND DIFFERENTIAL STAT 01/26/2024 12:38 AM EDT CK STAT 01/26/2024 12:38 AM EDT CBC WITH AUTO DIFFERENTIAL STAT 01/26/2024 12:38 AM EDT LACTIC ACID, PLASMA STAT 01/26/2024 1 2:38 AM EDT LIPASE STAT 01/26/2024 12:38 AM EDT COMPREHENSIVE METABOLIC PANEL STAT 01/26/2024 12:38 AM EDT SCANNED - LABS 01/26/2024 URINALYSIS, MICROSCOPIC ONLY STAT 01/25/2024 11:53 PM EDT URINALYSIS W/ MICROSCOPIC IF INDICATED (NO CULTURE) STAT 01/25/2024 11:53 PM EDT URINE CULTURE STAT 01/25/2024 11:53 PM EDT IN CRITICAL CARE ILL/INJURED PATIENT INIT 30-74 MIN Routine 01/25/2024 11:51 PM EDT from Last 3 Months Results * POC Glucose Once (01/27/2024 10:48 AM EDT) Only the most recent of3 resultswithin the time period is included. Glucose 98 70 - 130 mg/dL 01/27/2024 10:52 AM EDT [facility] Blood 01/27/2024 10:4 8 AM EDT 01/27/2024 10:52 AM EDT Nabil Guerrero MD POINT OF CARE TEST ORDERABLES Final Result [facility]
[address] [place] [address], [place] [phone] * (ABNORMAL) Comprehensive Metabolic Panel (01/27/2024 6:05 AM EDT) Only the most recent of2 resultswithin the time period is included. Glucose 76 65 - 99 mg/dL 01/27/2024 7:02 AM EDT [facility] BUN 18 6 - 20 mg/dL 01/27/2024 7:02 AM EDT [facility] Creatinine 0.98 0.57 - 1.00 mg/dL 01/27/2024 7:02 AM EDT [facility] Sodium 143 136 - 145 mmol/L 01/27/2024 7:02 AM EDT [facility] Potassium 4.3 3.5 - 5.2 mmol/L 01/27/2024 7:02 AM EDT [facility] Chloride 107 98 - 107 mmol/L 01/27/2024 7:02 AM EDT [facility] CO2 29.0 22.0 - 29.0 mmol/L 01/27/2024 7:02 AM EDT [facility] Calcium 8.4(L) 8.6 - 10.5 mg/dL 01/27/2024 7:02 AM EDT [facility] Total Protein 5.3(L) 6.0 - 8.5 g/dL 01/27/2024 7:02 AM EDT [facility] Albumin 3.4(L) 3.5 - 5.2 g/dL 01/27/2024 7:02 AM EDT [facility] ALT (SGPT) 32 1 - 33 U/L 01/27/2024 7:02 AM EDT [facility] AST (SGOT) 22 1 - 32 U/L 01/27/2024 7:02 AM EDT [facility] Alkaline Phosphatase 112 39 - 117 U/L 01/27/2024 7:02 AM EDT [facility] Total Bilirubin 0.4 0.0 - 1.2 mg/dL 01/27/2024 7:02 AM EDT [facility] Globulin 1.9 gm/dL 01/27/2024 7:02 AM EDT [facility] Comment:Calculated Result A/G Ratio 1.8 g/dL 01/27/2024 7:02 AM EDT [facility] BUN/Creatinine Ratio 18.4 7.0 - 25.0 01/27/2024 7:02 AM EDT [facility] Anion Gap 7.0 5.0 - 15.0 mmol/L 01/27/2024 7:02 AM EDT [facility] eGFR 66.6 >60.0 mL/min/1.7 3 01/27/2024 7:02 AM EDT [facility] Blood Venipuncture / Unknown 01/27/2024 6:05 AM EDT 01/27/2024 6:17 AM EDT Narrative [facility] - 01/27/2024 7:02 AM EDT GFR Normal >60 Chronic Kidney Disease <60 Kidney Failure <15 us Ambika Arreaga MD LAB BLOOD ORDERABLES Final Resul t [facility]
[address] [place] [address], * US Liver (01/26/2024 4:58 AM EDT) Anatomical Region Laterality Modality Body, Abdomen Ultrasound 01/26/2024 5:09 AM EDT Impressions 01/26/2024 5:13 AM EDT Impression: Normal common duct. Electronically Signed: Junior Boo MD 01/26/2024 5:13 AM EDT Workstation ID: [id number] Narrative 01/26/2024 5:13 AM EDT US LIVER [...] The right kidney is 8.9 cm in oagu-sx-ownd length and there is no hydronephrosis. There [...] normal.The right kidney is 8.9 cm in vzbt-mc-tuzy length and there is nohydronephrosis. There is a small exophytic cyst measuring about 2 cm. The pancreas is incompletely seen secondary toshadowing from overlying bowel gas. IMPRESSION: Impression: Normal common duct. Electronically Signed: Junior Boo MD 01/26/2024 5:13 AM EDT Workstation ID: [id number] Ambika Arreaga MD [facility] US ORDERABLES Final Result * Blood Culture - Blood, Arm, Right (01/26/2024 2:00 AM EDT) Only the most recent of2 resultswithin the time period is included. Blood Culture No growth at 5 days 01/31/2024 7:00 AM EDT [facility] Blood Structure of right upper limb / Unknown Venipuncture / Unknown 01/26/2024 2:00 AM EDT 01/26/2024 6:51 AM EDT us Kris Bird MD MICROBIOLOGY - GENERAL ORDERABLE S Final Result [facility]
[address] [place] [address], * CT Abdomen Pelvis Without Contrast (01/26/2024 1:01 AM EDT) Anatomical Region Laterality Modality Abdomen, Pelvis N/A Computed Tomogra phy 01/26/2024 1:38 AM EDT Impressions 01/26/2024 1:44 AM EDT Impression: 1.Faint left lower lobe nodular airspace opacities suggestive of infectious process. 2.No acute abdominal or pelvic abnormality. 3.Bilateral fat-containing inguinal hernias. Electronically Signed: Junior Boo MD 01/26/2024 1:44 AM EDT Workstation ID: [id number] Narrative 01/26/2024 1:[address] ABDOMEN [...] MD 01/26/2024 1:44 AM EDT Workstation ID: [id number] us Kris Bird MD IMG CT ORDERABLES Final Result * (ABNORMAL) CBC Auto Differential (01/26/2024 12:38 AM EDT) WBC 11.38(H) 3.40 - 10.80 10*3/mm3 01/26/2024 1:14 AM EDT [facility] RBC 3.71(L) 3.77 - 5.28 10*6/mm3 01/26/2024 1:14 AM EDT [facility] Hemoglobin 12.3 12.0 - 15.9 g/dL 01/26/2024 1:14 AM EDT [facility] Hematocrit 35.6 34.0 - 46.6 % 01/26/2024 1:14 AM EDT [facility] MCV 96.0 79.0 - 97.0 fL 01/26/2024 1:14 AM EDT [facility] MCH 33.2(H) 26.6 - 33.0 pg 01/26/2024 1:14 AM EDT [facility] MCHC 34.6 31.5 - 35.7 g/dL 01/26/2024 1:14 AM EDT [facility] RDW 14.3 12.3 - 15.4 % 01/26/2024 1:14 AM EDT [facility] RDW-SD 46.9 37.0 - 54.0 fl 01/26/2024 1:14 AM EDT [facility] MPV 9.9 6.0 - 12.0 fL 01/26/2024 1:14 AM EDT [facility] Platelets 349 140 - 450 10*3/mm3 01/26/2024 1:14 AM EDT [facility] Neutrophil % 60.9 42.7 - 76.0 % 01/26/2024 1:14 AM EDT [facility] Lymphocyte % 30.6 19.6 - 45.3 % 01/26/2024 1:14 AM EDT [facility] Monocyte % 5.7 5.0 - 12.0 % 01/26/2024 1:14 AM EDT [facility] Eosinophil % 0.9 0.3 - 6.2 % 01/26/2024 1:14 AM EDT [facility] Basophil % 0.6 0.0 - 1.5 % 01/26/2024 1:14 AM EDT [facility] Immature Grans % 1.3(H) 0.0 - 0.5 % 01/26/2024 1:14 AM EDT [facility] Neutrophils, Absolute 6.93 1.70 - 7.00 10*3/mm3 01/26/2024 1:14 AM EDT [facility] Lymphocytes, Absolute 3.48(H) 0.70 - 3.10 10*3/mm3 01/26/2024 1:14 AM EDT [facility] Monocytes, Absolute 0.65 0.10 - 0.90 10*3/mm3 01/26/2024 1:14 AM EDT [facility] Eosinophils, Absolute 0.10 0.00 - 0.40 10*3/mm3 01/26/2024 1:14 AM EDT [facility] Basophils, Absolute 0.07 0.00 - 0.20 10*3/mm3 01/26/2024 1:14 AM EDT [facility] Immature Grans, Absolute 0.15(H) 0.00 - 0.05 10*3/mm3 01/26/2024 1:14 AM EDT [facility] nRBC 0.0 0.0 - 0.2 /100 WBC 01/26/2024 1:14 AM EDT [facility] Blood Structure of right upper limb / Unknown Venipuncture / Unknown 01/26/2024 12:38 AM EDT 01/26/2024 1:11 AM EDT us Kris Bird MD LAB BLOOD ORDERABLES Final Resul t [facility]
[address] [place] [address], * (ABNORMAL) Lipase (01/26/2024 12:38 AM EDT) Lipase 109(H) 13 - 60 U/L 01/26/2024 1:31 AM EDT [facility] Blood Structure of right upper limb / Unknown Venipuncture / Unknown 01/26/2024 12:38 AM EDT 01/26/2024 1:09 AM EDT us Kris Bird MD LAB BLOOD ORDERABLES Final Resul t Performing Organization Address [facility] de Phone Number [facility]
[address] [place] [address], * Lactic Acid, Plasma (01/26/2024 12:38 AM EDT) Lactate 1.6 0.5 - 2.0 mmol/L 01/26/2024 1:27 AM EDT [facility] Comment:Falsely depressed re sults may occur on samples drawn from patients receiving N-Acetylcysteine (NAC) or Metamizole. Blood Structure of right upper limb / Unknown Venipuncture / Unknown 01/26/2024 12:38 AM EDT 01/26/2024 1:09 AM EDT us Kris Bird MD LAB BLOOD ORDERABLES Final Resul t Performing Organization Address [facility] de Phone Number [facility]
[address] [place] [address], * CK (01/26/2024 12:38 AM EDT) Creatine Kinase 70 20 - 180 U/L 01/26/2024 4:25 AM EDT [facility] Blood Structure of right upper limb / Unknown Venipuncture / Unknown 01/26/2024 12:38 AM EDT 01/26/2024 1:09 AM EDT Ambika Arreaga MD LAB BLOOD ORDERABLES Final Resul t Performing Organization Address [facility] de Phone Number [facility]
[address] [id number], * LABS SCANNED (01/26/2024) [facility] LAB BLOOD ORDERABLES Final Re sult * (ABNORMAL) Urinalysis, Microscopic Only - Urine, Clean Catch (01/25/2024 11:53 PM EDT) RBC, UA 0-2 None Seen, 0-2 /HPF 01/26/2024 12:53 AM EDT [facility] WBC, UA 21-50(A) None Seen, 0-2 /HPF 01/26/2024 12:53 AM EDT [facility] Bacteria, UA None Seen None Seen, Trace /HPF 01/26/2024 12:53 AM EDT [facility] Squamous Epithelial Cells, UA 3-6(A) None Seen, 0-2 /HPF 01/26/2024 12:53 AM EDT [facility] Hyaline Casts, UA 0-6 0 - 6 /LPF 01/26/2024 12:53 AM EDT [facility] Methodology Manual Light Microscopy 01/26/2024 12:53 AM EDT [facility] Urine Urine specimen obtained by clean catch procedure / Unknown Collection / Unknown 01/25/2024 11:53 PM EDT 01/26/2024 12:24 AM EDT Kris Bird MD URINE ORDERABLES Final Result [facility]
[address] [place] [address], * (ABNORMAL) Urinalysis With Microscopic If Indicated (No Culture) - Urine, Clean Catch (01/25/2024 11:53 PM EDT) Color, UA Yellow Yellow, Straw 01/26/2024 12:53 AM EDT [facility] Appearance, UA Cloudy(A) Clear 01/26/2024 12:53 AM EDT [facility] pH, UA 5.5 5.0 - 8.0 01/26/2024 12:53 AM EDT [facility] Specific [place], UA 1.013 1.001 - 1.030 01/26/2024 12:53 AM EDT [facility] Glucose, UA Negative Negative 01/26/2024 12:53 AM EDT [facility] Ketones, UA Negative Negative 01/26/2024 12:53 AM EDT [facility] Bilirubin, UA Negative Negative 01/26/2024 12:53 AM EDT [facility] Blood, UA Negative Negative 01/26/2024 12:53 AM EDT [facility] Protein, UA Negative Negative 01/26/2024 12:53 AM EDT [facility] Leuk Esterase, UA Large (3+)(A) Negative 01/26/2024 12:53 AM EDT [facility] Nitrite, UA Negative Negative 01/26/2024 12:53 AM EDT [facility] Urobilinogen, UA 0.2 E.U./dL 0.2 - 1.0 E.U./dL 01/26/2024 12:53 AM EDT [facility] Urine Urine specimen obtained by clean catch procedure / Unknown Collection / Unknown 01/25/2024 11:53 PM EDT 01/26/2024 12:24 AM EDT us Kris Bird MD URINE ORDERABLES Final Result [facility]
[address] [place] [address], * Urine Culture - Urine, Urine, Clean Catch (01/25/2024 11:53 PM EDT) Urine Culture 50,000 CFU/mL Normal Urogenital Rosa Elena JAVAN 01/27/2024 11:27 AM EDT [facility] Urine Urine specimen obtained by clean catch procedure / Unknown Collection / Unknown 01/25/2024 11:53 PM EDT 01/26/2024 12:24 AM EDT Narrative [facility] - 01/27/2024 11:27 AM EDT Colonization of the urinary tract without infection is common. Treatment is discouraged unless the patient is symptomatic, , or undergoing an invasive urologic procedure. Ambika Arreaga MD MICROBIOLOGY - GENERAL ORDERABLE S Final Result [facility]
[address] [place] [address], * IN CRITICAL CARE ILL/INJURED PATIENT INIT 30-74 MIN (01/25/2024 11:51 PM EDT) Narrative Kris Bird MD - 01/25/2024 11:51 PM EDT Kris Bird MD ? 01/26/2024 ??2:45 AM Critical Care Performed by: Kris Bird MD Authorized by: Kris Bird MD ?? Critical care provider statement: [...] no ?Care discussed with: admitting provider ?? us Kris Bird MD PROCEDURE/MINOR SURGICAL ORDERAB LES Final Result from Last 3 Months Insurance [employer] Advance Directives * CPR (Attempt to Resuscitate) (Latest Code Status on File) Date Activated Date Inactivated Comments 01/26/2024 4:20 AM 01/27/2024 4:42 PM Question Answer Comments Code Status (Patient has no pulse and is not breathing): CPR (Attempt to Resuscitate) Medical Interventions (Patie nt has pulse or is breathing): Full Support Level Of Support Discussed With: Patient Care Teams Bobbin Cleaning Machine Operator Relationship Specialty Start Date End Date Salima Gonzáles DO [facility] [place] [address] PCP - General Family Medicine 02/21/17
--- OUTSIDE RECORDS SUMMARY | 2024-04-06 21:56 | XMS_ITS | Encounter Summary ---
Author Organization [employer] Address [address] [place] [address] Care Team Providers Care Poultry Raiser Name Role Phone Unavailable Primary Care Provider Unavailabl e Encounter Details Date Type Department Care Team (Late st Contact Info) Description 10/05/2020 Historic Encounter [address] [address] ProviderScarlet Historical Social History Tobacco Use Types Packs/Day Years Used Date Smoking Tobacco: Never Assessed Comments Unknown Sex and Gender Information Value Date Recorded Sex Assigned at Not on file Legal Sex Female 2:54 PM CDT Gender Identity Not on file Sexual Orientation Not on file documented as of this encounter Plan of Treatment Not on file documented as of this encounter Procedures Procedure Name Priority Date/Time Associated Diagnosis Comments GLUCOSE-POC Routine 10/05/2020 6:19 AM EDT documented in this encounter Results * Glucose, Point of Care (10/05/2020 6:19 AM EDT) Glucose POC2 99 70 - 110 mg/dL 10/05/2020 10:19 AM EDT [facility] Sewing Machine Operator 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 Zipper [id number] 10/05/2020 10:19 AM EDT [facility] Device SN [id number] 10/05/2020 10:19 AM EDT [facility] Device Comment1 Protocols Followed 10/05/2020 10:19 AM EDT [facility] Blood 10/05/2020 6:19 AM EDT 10/05/2020 10:20 AM EDT [facility] Historical Provider POINT OF CARE TEST ORDE LUIS FELIPE Final Result Performing Organization Address City/State/[facility] Co de Phone Number [facility] [address] [place] [address] documented in this encounter Visit Diagnoses Not on filedocumented in this encounter
--- OUTSIDE RECORDS SUMMARY | 2024-04-06 21:56 | XMS_ITS | Encounter Summary ---
Author Organization [employer] Address [address] [place] [address] Care Team Providers Care Branch Coordinator Name Role Phone Salima Gonzáles Primary Care Provider [phone] Encounter Details Date Type Department Care Team (Late st Contact Info) Description 10/05/2020 Transcribed Document [facility] [place] [address] [place] [address] ProviderQuincy MD [address] [place] [id number] Social History Tobacco Use Types Packs/Day Years Used Date Smoking Tobacco: Never Assessed Comments Unknown Sex and Gender Information Value Date Recorded Sex Assigned at Not on file Legal Sex Female 2:54 PM CDT Gender Identity Not on file Sexual Orientation Not on file documented as of this encounter Miscellaneous Notes * Cerner Conversion Note - Quincy ProviderMD - 10/05/2020 2:00 AM CDT Beam Racker Details Entered On: 10/05/2020 3:28 EDT Performed On: 10/05/2020 2:00 EDT by Janae Avery LPN Order Details Transport Mode Order Detail : Wheelchair Isolation Precautions Order Detail : Standard Precautions Order Detail : 0 IV Order Detail : 1 Oxygen Order Detail : 0 Lift/Transfer : Minimal Central Line Order Detail : No Room Service : Appropriate Arterial Line : No Patient Needs Meds Crushed/Liquid : No Janae Avery LPN - 10/05/2020 3:28 EDT documented in this encounter Plan of Treatment Not on file documented as of this encounter Visit Diagnoses Not on filedocumented in this encounter Care Teams Branch Coordinator Relationship Specialty Start Date End Date Salima Gonzáles, [address] [address] PCP - General Family Medicine 02/09/23 documented as of this encounter
--- OUTSIDE RECORDS SUMMARY | 2024-04-06 21:56 | XMS_ITS | Referral Summary ---
Author Organization [facility] [employer] Address [address] [place] [address] Care Team Providers Care Men'S Basketball Coach Name Role Phone Salima Gonzáles DO Primary Care Provider [phone] Social History Tobacco Use Types Packs/Day Years Used Date Smoking Tobacco: Never Assessed Comments Unknown Sex and Gender Information Value Date Recorded Sex Assigned at Not on file Legal Sex Female 2:54 PM CDT Gender Identity Not on file Sexual Orientation Not on file Plan of Treatment Not on file Insurance [facility] Care Teams Men'S Basketball Coach Relationship Specialty Start Date End Date Salima Gonzáles DO [address] [facility] [address] [place] [address] PCP - General Family Medicine 02/09/23
--- OUTSIDE RECORDS SUMMARY | 2024-04-06 21:56 | XMS_ITS | Encounter Summary ---
Author Organization [employer] Address [address] [place] [address] Care Team Providers Care Pest Control Worker Name Role Phone Salima Gonzáles Primary Care Provider [phone] Encounter Details Date Type Department Care Team (Late st Contact Info) Description 10/05/2020 Transcribed Document [facility] [place] Family Medicine [address] [place] [address] ProviderQuincy MD [address] [place] [id number] Social History Tobacco Use Types Packs/Day Years Used Date Smoking Tobacco: Never Assessed Comments Unknown Sex and Gender Information Value Date Recorded Sex Assigned at Not on file Legal Sex Female 2:54 PM CDT Gender Identity Not on file Sexual Orientation Not on file documented as of this encounter Miscellaneous Notes * Cerner Conversion Note - Quincy Kate MD - 10/05/2020 5:05 PM CDT Nursing Discharge Summary Entered On: 10/05/2020 17:07 EDT Performed On: 10/05/2020 17:05 EDT by Hoa Coleman RN Discharge Documentation Discharge Date/Time : 10/05/2020 16:35 EDT Patient Disposition, General : Discharge Discharge To : Home with ambulatory/outpatient follow-up Mode Of Departure, General Discharge : Private vehicle Accompanied By, Discharge : Son IV Discontinued : Yes Personal Belongings With Patient : Yes Pt's Own Supply of Medications Returned : Yes Prescriptions Given to Patient : Electronically sent Medications Given to Patient : No Discharge Instructions Reviewed With, Opportunity For Questions Given : Patient, Son Patient Education Completed : Yes Teaching Method : Explanation Teaching Evaluation : Verbalizes understanding Education Comment : meds, follow ups, conditions/procedures Hoa Coleman RN - 10/05/2020 17:05 EDT documented in this encounter Plan of Treatment Not on file documented as of this encounter Visit Diagnoses Not on filedocumented in this encounter Care Teams Pest Control Worker Relationship Specialty Start Date End Date Salima Gonzáles, [address] [address] PCP - General Family Medicine 02/09/23 documented as of this encounter
--- OUTSIDE RECORDS SUMMARY | 2024-04-06 21:56 | XMS_ITS | Encounter Summary ---
Author Organization [employer] Address [address] [place] [address] Care Team Providers Care Harness Brusher Name Role Phone Salima Gonzáles Primary Care Provider [phone] Encounter Details Date Type Department Care Team (Late st Contact Info) Description 10/12/2020 Transcribed Document [facility] Family [facility] [address] ProviderQuincy MD [address] [place] [phone] Social History Tobacco Use Types Packs/Day Years Used Date Smoking Tobacco: Never Assessed Comments Unknown Sex and Gender Information Value Date Recorded Sex Assigned at Not on file Legal Sex Female 2:54 PM CDT Gender Identity Not on file Sexual Orientation Not on file documented as of this encounter Miscellaneous Notes * Cerner Conversion Note - Quincy Kate MD - 10/12/2020 12:06 PM CDT [facility] Authorization Entered On: 10/12/2020 12:06 EDT Performed On: 10/12/2020 12:06 EDT by PING HOFFMANN RN Primary Insurance Authorization Authorization and Policy Numbers : Insurance 1 Health Plan: [employer] MEDICARE REPL Policy Number: [id number] Authorization Number: Insurance Primary Name : [employer] MED[employer] REPL Policy Number: [id number] Authorization Status-Primary : Awaiting callback Reference Number-Primary : [id number] Authorized Service Begin Date-Primary : 10/03/2020 EDT Authorization Comments-Primary : Yeison Stearns remains pending Historical Authorization Comments-Primary : Comment 1: Faxed dc summary via [employer] (PING HOFFMANN RN 10/11/2020 12:12) Comment 2: Remains pending per [employer] (PING HOFFMANN RN 10/11/2020 12:11) Comment 3: Email sent to madelyn (PING HOFFMANN RN 10/09/2020 15:11) Comment 4: Clinicals faxed via [employer] for IP approval (DEISY LIRA RN 10/05/2020 14:13) Comment 5: Clinicals submitted via [employer] for IP approval (DEISY LIRA RN 10/04/2020 08:24) PING HOFFMANN RN - 10/12/2020 12:06 EDT documented in this encounter Plan of Treatment Not on file documented as of this encounter Visit Diagnoses Not on filedocumented in this encounter Care Teams Harness Brusher Relationship Specialty Start Date End Date Salima Gonzáles DO [address] [address] PCP - General Family Medicine 02/09/23 documented as of this encounter
--- OUTSIDE RECORDS SUMMARY | 2024-04-06 21:56 | XMS_ITS | Encounter Summary ---
Author Organization [employer] Address [address] [place] [address] Care Team Providers Care Child Specialist Name Role Phone Unavailable Primary Care Provider Unavailabl e Encounter Details Date Type Department Care Team (Late st Contact Info) Description 10/04/2020 Historic Encounter [address] [address] ProviderScarlet Historical Social History Tobacco [...] Priority Date/Time Associated Diagnosis Comments GLUCOSE-POC Routine 10/04/2020 2:24 PM EDT documented in this encounter Results * Glucose, Point of Care (10/04/2020 2:24 PM EDT) Glucose POC2 84 70 - 110 mg/dL 10/04/2020 6:24 PM EDT [facility] Tester Wafer Substrate [id number] 10/04/2020 6:24 PM EDT [facility] Device SN [id number] 10/04/2020 6:24 PM EDT [facility] Device Comment1 No action Require 10/04/2020 6:24 PM EDT [facility] Blood 10/04/2020 2:24 PM EDT 10/04/2020 6:25 PM EDT [facility] Historical Provider POINT OF CARE TEST ORDSamantha BRISCOE Final Result Performing Organization Address City/State/[facility] Co de Phone Number [facility] [address] [place] [address] documented in this encounter Visit Diagnoses Not on filedocumented in this encounter
--- OUTSIDE RECORDS SUMMARY | 2024-04-06 21:56 | XMS_ITS | Encounter Summary ---
Author Organization [employer] Address [address] [place] [address] Care Team Providers Care Personal Lines Underwriter Name Role Phone Salima Gonzáles Primary Care Provider [phone] Encounter Details Date Type Department Care Team (Late st Contact Info) Description 10/05/2020 Transcribed Document [facility] [place] Family Medicine [address] [place] [address] ProviderQuincy MD [address] [place] [id number] Social History Tobacco Use Types Packs/Day Years Used Date Smoking Tobacco: Never Assessed Comments Unknown Sex and Gender Information Value Date Recorded Sex Assigned at Not on file Legal Sex Female 2:54 PM CDT Gender Identity Not on file Sexual Orientation Not on file documented as of this encounter Miscellaneous Notes * [employer]ner Conversion Note - Quincy Kate MD - 10/05/2020 2:27 PM CDT Patient Education Materials Follows: Kidney Stones Kidney stones are rock-like masses that form inside of the kidneys. Kidneys are organs that make pee (urine). A kidney stone may move into other parts of the urinary tract, including: ??? The tubes that connect the kidneys to the bladder (ureters). ??? The bladder. ??? The tube that carries urine out of the body (urethra). Kidney stones can cause very bad pain and can block the flow of pee. The stone usually leaves your body (passes) through your pee. You may need to have a doctor take out the stone. What are the causes? Kidney stones may be caused by: ??? A condition in which certain glands make too much parathyroid hormone (primary hyperparathyroidism). ??? A buildup of a type of crystals in the bladder made of a chemical called uric acid. The body makes uric acid when you eat certain foods. ??? Narrowing (stricture) of one or both of the ureters. ??? A kidney blockage that you were born with. ??? Past surgery on the kidney or the ureters, such as gastric bypass surgery. What increases the risk? You are more likely to develop this condition if: ??? You have had a kidney stone in the past. ??? You have a family history of kidney stones. ??? You do not drink enough water. ??? You eat a diet that is high in protein, salt (sodium), or sugar. ??? You are overweight or very overweight (obese). What are the signs or symptoms? Symptoms of a kidney stone may include: ??? Pain in the side of the belly, right below the ribs (flank pain). Pain usually spreads (radiates) to the groin. ??? Needing to pee often or right away (urgently). ??? Pain when going pee (urinating). ??? Blood in your pee (hematuria). ??? Feeling like you may vomit (nauseous). ??? Vomiting. ??? Fever and chills. How is this treated? Treatment depends on the size, location, and makeup of the kidney stones. The stones will often pass out of the body through peeing. You may need to: ??? Drink more fluid to help pass the stone. In some cases, you may be given fluids through an IV tube put into one of your veins at the hospital. ??? Take medicine for pain. ??? Make changes in your diet to help keep kidney stones from coming back. Sometimes, medical procedures are needed to remove a kidney stone. This may involve: ??? A procedure to break up kidney stones using a beam of light (laser) or shock waves. ??? Surgery to remove the kidney stones. Follow these instructions at home: Medicines ??? Take jvpz-lug-fkebsfe and prescription medicines only as told by your doctor. ??? Ask your doctor if the medicine prescribed to you requires you to avoid driving or using heavy machinery. Eating and drinking ??? Drink enough fluid to keep your pee pale yellow. You may be told to drink at least 8?10 glasses of water each day. This will help you pass the stone. ??? If told by your doctor, change your diet. This may include: ? Limiting how much salt you eat. ? Eating more fruits and vegetables. ? Limiting how much meat, poultry, fish, and eggs you eat. ??? Follow instructions from your doctor about eating or drinking restrictions. General instructions ??? Collect pee samples as told by your doctor. You may need to collect a pee sample: ? 24 hours after a stone comes out. ? 8?12 weeks after a stone comes out, and every 6?12 months after that. ??? Strain your pee every time you pee (urinate), for as long as told. Use the strainer that your doctor recommends. ??? Do not throw out the stone. Keep it so that it can be tested by your doctor. ??? Keep all follow-up visits as told by your doctor. This is important. You may need follow-up tests. How is this prevented? To prevent another kidney stone: ??? Drink enough fluid to keep your pee pale yellow. This is the best way to prevent kidney stones. ??? Eat healthy foods. ??? Avoid certain foods as told by your doctor. You may be told to eat less protein. ??? Stay at a healthy weight. Where to find more information ??? National Kidney Foundation (NKF): www.kidney.org ??? U[employer] Care Foundation (UCF): www.urologyhealth.org Contact a doctor if: ??? You have pain that gets worse or does not get better with medicine. Get help right away if: ??? You have a fever or chills. ??? You get very bad pain. ??? You get new pain in your belly (abdomen). ??? You pass out (faint). ??? You cannot pee. Summary ??? Kidney stones are rock-like masses that form inside of the kidneys. ??? Kidney stones can cause very bad pain and can block the flow of pee. ??? The stones will often pass out of the body through peeing. ??? Drink enough fluid to keep your pee pale yellow. This information is not intended to replace advice given to you by your health care provider. Make sure you discuss any questions you have with your health care provider. Document Revised: 09/09/2019 Document Reviewed: 09/09/2019 [employer] Patient Education ? 2020 [employer] Ureteroscopy Ureteroscopy is a procedure to check for and treat problems inside part of the urinary tract. In this procedure, a thin, tube-shaped instrument with a light at the end (ureteroscope) is used to look at the inside of the kidneys and the ureters, which are the tubes that carry urine from the kidneys to the bladder. The ureteroscope is inserted into one or both of the ureters. You may need this procedure if you have frequent urinary tract infections (UTIs), blood in your urine, or a stone in one of your ureters. A ureteroscopy can be done to find the cause of urine blockage in a ureter and to evaluate other abnormalities inside the ureters or kidneys. If stones are found, they can be removed during the procedure. Polyps, abnormal tissue, and some types of tumors can also be removed or treated. The ureteroscope may also have a tool to remove tissue to be checked for disease under a microscope (biopsy). Tell a health care provider about: ??? Any allergies you have. ??? All medicines you are taking, including vitamins, herbs, eye drops, creams, and fyxd-knl-aitffip medicines. ??? Any problems you or family members have had with anesthetic medicines. ??? Any blood disorders you have. ??? Any surgeries you have had. ??? Any medical conditions you have. ??? Whether you are or may be . What are the risks? Generally, this is a safe procedure. However, problems may occur, including: ??? Bleeding. ??? Infection. ??? Allergic reactions to medicines. ??? Scarring that narrows the ureter (stricture). ??? Creating a hole in the ureter (perforation). What happens before the procedure? Staying hydrated Follow instructions from your health care provider about hydration, which may include: ??? Up to 2 hours before the procedure ? you may continue to drink clear liquids, such as water, clear fruit juice, black coffee, and plain tea. Eating and drinking restrictions Follow instructions from your health care provider about eating and drinking, which may include: ??? 8 hours before the procedure ? stop eating heavy meals or foods such as meat, fried foods, or fatty foods. ??? 6 hours before the procedure ? stop eating light meals or foods, such as toast or cereal. ??? 6 hours before the procedure ? stop drinking milk or drinks that contain milk. ??? 2 hours before the procedure ? stop drinking clear liquids. Medicines ??? Ask your health care provider about: ? Changing or stopping your regular medicines. This is especially important if you are taking diabetes medicines or blood thinners. ? Taking medicines such as aspirin and ibuprofen. These medicines can thin your blood. Do not take these medicines before your procedure if your health care provider instructs you not to. ??? You may be given antibiotic medicine to help prevent infection. General instructions ??? You may have a urine sample taken to check for infection. ??? Plan to have someone take you home from the hospital or clinic. What happens during the procedure? To reduce your risk of infection: ? Your health care team will wash or sanitize their hands. ? Your skin will be washed with soap. ??? An IV tube will be inserted into one of your veins. ??? You will be given one of the following: ? A medicine to help you relax (sedative). ? A medicine to make you fall asleep (general anesthetic). ? A medicine that is injected into your spine to numb the area below and slightly above the injection site (spinal anesthetic). ??? To lower your risk of infection, you may be given an antibiotic medicine by an injection or through the IV tube. ??? The opening from which you urinate (urethra) will be cleaned with a germ-killing solution. ??? The ureteroscope will be passed through your urethra into your bladder. ??? A salt-water solution will flow through the ureteroscope to fill your bladder. This will help the health care provider see the openings of your ureters more clearly. ??? Then, the ureteroscope will be passed into your ureter. ? If a growth is found, a piece of it may be removed so it can be examined under a microscope (biopsy). ? If a stone is found, it may be removed through the ureteroscope, or the stone may be broken up using a laser, shock waves, or electrical energy. ? In some cases, if the ureter is too small, a tube may be inserted that keeps the ureter open (ureteral stent). The stent may be left in place for 1 or 2 weeks to keep the ureter open, and then the ureteroscopy procedure will be performed. ??? The scope will be removed, and your bladder will be emptied. The procedure may vary among health care providers and hospitals. What happens after the procedure? Your blood pressure, heart rate, breathing rate, and blood oxygen level will be monitored until the medicines you were given have worn off. ??? You may be asked to urinate. ??? Do?not drive for 24 hours if you were given a sedative. This information is not intended to replace advice given to you by your health care provider. Make sure you discuss any questions you have with your health care provider. Document Revised: 04/05/2018 Document Reviewed: 02/02/2017 [employer] Patient Education ? 2020 [employer] Dietary Guidelines to Help Prevent Kidney Stones Kidney stones are deposits of minerals and salts that form inside your kidneys. Your risk of developing kidney stones may be greater depending on your diet, your lifestyle, the medicines you take, and whether you have certain medical conditions. Most people can reduce their chances of developing kidney stones by following the instructions below. Depending on your overall health and the type of kidney stones you tend to develop, your dietitian may give you more specific instructions. What are tips for following this plan? Reading food labels ??? Choose foods with no salt added or low-salt labels. Limit your sodium intake to less than 1500 mg per day. ??? Choose foods with calcium for each meal and snack. Try to eat about 300 mg of calcium at each meal. Foods that contain 200?500 mg of calcium per serving include: ? 8 oz (237 ml) of milk, fortified nondairy milk, and fortified fruit juice. ? 8 oz (237 ml) of kefir, yogurt, and soy yogurt. ? 4 oz (118 ml) of tofu. ? 1 oz of cheese. ? 1 cup (300 g) of dried figs. ? 1 cup (91 g) of cooked broccoli. ? 1?3 oz can of sardines or mackerel. ??? Most people need 1000 to 1500 mg of calcium each day. Talk to your dietitian about how much calcium is recommended for you. Shopping ??? Buy plenty of fresh fruits and vegetables. Most people do not need to avoid fruits and vegetables, even if they contain nutrients that may contribute to kidney stones. ??? When shopping for convenience foods, choose: ? Whole pieces of fruit. ? Premade salads with dressing on the side. ? Low-fat fruit and yogurt smoothies. ??? Avoid buying frozen meals or prepared deli foods. ??? Look for foods with live cultures, such as yogurt and kefir. Cooking ??? Do not add salt to food when cooking. Place a salt shaker on the table and allow each person to add his or her own salt to taste. ??? Use vegetable protein, such as beans, textured vegetable protein (TVP), or tofu instead of meat in pasta, casseroles, and soups. Meal planning ??? Eat less salt, if told by your dietitian. To do this: ? Avoid eating processed or premade food. ? Avoid eating fast food. ??? Eat less animal protein, including cheese, meat, poultry, or fish, if told by your dietitian. To do this: ? Limit the number of times you have meat, poultry, fish, or cheese each week. Eat a diet free of meat at least 2 days a week. ? Eat only one serving each day of meat, poultry, fish, or seafood. ? When you prepare animal protein, cut pieces into small portion sizes. For most meat and fish, one serving is about the size of one deck of cards. ??? Eat at least 5 servings of fresh fruits and vegetables each day. To do this: ? Keep fruits and vegetables on hand for snacks. ? Eat 1 piece of fruit or a handful of berries with breakfast. ? Have a salad and fruit at lunch. ? Have two kinds of vegetables at dinner. ??? Limit foods that are high in a substance called oxalate. These include: ? Spinach. ? Rhubarb. ? Beets. ? Potato chips and polish fries. ? Nuts. ??? If you regularly take a diuretic medicine, make sure to eat at least 1?2 fruits or vegetables high in potassium each day. These include: ? Avocado. ? Banana. ? Bowman, prune, carrot, or tomato juice. ? Baked potato. ? Cabbage. ? Beans and split peas. General instructions ??? Drink enough fluid to keep your urine clear or pale yellow. This is the most important thing you can do. ??? Talk to your health care provider and dietitian about taking daily supplements. Depending on your health and the cause of your kidney stones, you may be advised: ? Not to take supplements with vitamin C. ? To take a calcium supplement. ? To take a daily probiotic supplement. ? To take other supplements such as magnesium, fish oil, or vitamin B6. ??? Take all medicines and supplements as told by your health care provider. ??? Limit alcohol intake to no more than 1 drink a day for non women and 2 drinks a day for men. One drink equals 12 oz of beer, 5 oz of wine, or 1? oz of hard liquor. ??? Lose weight if told by your health care provider. Work with your dietitian to find strategies and an eating plan that works best for you. What foods are not recommended? Limit your intake of the following foods, or as told by your dietitian. Talk to your dietitian about specific foods you should avoid based on the type of kidney stones and your overall health. Grains Breads. Bagels. Rolls. Baked goods. Salted crackers. Cereal. Pasta. Vegetables Spinach. Rhubarb. Beets. Canned vegetables. Pickles. Olives. Meats and other protein foods Nuts. Nut butters. Large portions of meat, poultry, or fish. Salted or cured meats. Deli meats. Hot dogs. Sausages. Dairy Cheese. Beverages Regular soft drinks. Regular vegetable juice. Seasonings and other foods Seasoning blends with salt. Salad dressings. Canned soups. Soy sauce. Ketchup. Barbecue sauce. Canned pasta sauce. Casseroles. Pizza. Lasagna. Frozen meals. Potato chips. Azeri fries. Summary ??? You can reduce your risk of kidney stones by making changes to your diet. ??? The most important thing you can do is drink enough fluid. You should drink enough fluid to keep your urine clear or pale yellow. ??? Ask your health care provider or dietitian how much protein from animal sources you should eat each day, and also how much salt and calcium you should have each day. This information is not intended to replace advice given to you by your health care provider. Make sure you discuss any questions you have with your health care provider. Document Revised: 08/13/2019 Document Reviewed: 04/03/2017 [employer] Patient Education ? 2019 [employer] Electronically signed by [place], [facility] [employer] Tech [employer] at 08/23/2022 11:12 AM CDT documented in this encounter Plan of Treatment Not on file documented as of this encounter Visit Diagnoses Not on filedocumented in this encounter Care Teams Personal Lines Underwriter Relationship Specialty Start Date End Date Salima Gonzáles, [address] [address] PCP - General Family Medicine 02/09/23 documented as of this encounter
--- OUTSIDE RECORDS SUMMARY | 2024-04-06 21:56 | XMS_ITS | Encounter Summary ---
Author Organization [employer] Address [address] [place] [address] Care Team Providers Care Recovery Specialist Name Role Phone Salima Gonzáles Primary Care Provider [phone] Encounter Details Date Type Department Care Team (Late st Contact Info) Description 10/04/2020 Transcribed Document [facility] [place] [address] [place] [address] ProviderQuincy MD [address] [place] [address] Social History Tobacco Use Types Packs/Day Years Used Date Smoking Tobacco: Never Assessed Comments Unknown Sex and Gender Information Value Date Recorded Sex Assigned at Not on file Legal Sex Female 2:54 PM CDT Gender Identity Not on file Sexual Orientation Not on file documented as of this encounter Miscellaneous Notes * [employer]ner Conversion Note - Quincy ProviderMD - 10/04/2020 2:00 AM CDT [employer] Details Entered On: 10/04/2020 4:12 EDT Performed On: 10/04/2020 2:00 EDT by Lj Villarreal RN Order Details Transport Mode Order Detail : Wheelchair Isolation Precautions Order Detail : Standard Precautions Order Detail : 0 IV Order Detail : 1 Oxygen Order Detail : 0 Nurse Collect Order Detail : 0 Lift/Transfer : Minimal Central Line Order Detail : No Room Service : Appropriate Arterial Line : No Patient Needs Meds Crushed/Liquid : No Lj Villarreal RN - 10/04/2020 4:11 EDT documented in this encounter Plan of Treatment Not on file documented as of this encounter Visit Diagnoses Not on filedocumented in this encounter Care Teams Recovery Specialist Relationship Specialty Start Date End Date Salima Gonzáles DO [address] [address] PCP - General Family Medicine 02/09/23 documented as of this encounter
--- OUTSIDE RECORDS SUMMARY | 2024-04-06 21:56 | XMS_ITS | Encounter Summary ---
Author Organization [employer] Address [address] [place] [address] Care Team Providers Care Loom Setter Name Role Phone Unavailable Primary Care Provider Unavailabl e Encounter Details Date Type Department Care Team (Late st Contact Info) Description 10/04/2020 Historic Encounter [address] [address] Provider [facility] Historical Social History Tobacco Use Types Packs/Day [...] Procedure Name Priority Date/Time Associated Diagnosis Comments CMP COMPREHENSIVE METABOLIC PANEL ([facility] DATA CONV) Routine 10/04/2020 6:54 AM EDT documented in this encounter Results * (ABNORMAL) CMP COMPREHENSIVE METABOLIC PANEL ([facility] DATA CONV) (10/04/2020 6:54 AM EDT) Sodium Level 143 136 - 146 mmol/L 10/04/2020 11:38 AM EDT Potassium Level 3.8 3.5 - 5.1 mmol/L 10/04/2020 11:38 AM EDT Chloride Level 108 102 - 112 mmol/L 10/04/2020 11:38 AM EDT Carbon Dioxide Level 30 21 - 32 mmol/L 10/04/2020 11:38 AM EDT Anion Gap 9 9 - 20 10/04/2020 11:38 AM EDT Calcium Level 8.4 8.4 - 10.1 mg/dL 10/04/2020 11:38 AM EDT Glucose Level 97 74 - 106 mg/dL 10/04/2020 11:38 AM EDT Comment: Marqeta has become aware of sulfasalazine and sulfapyridine drug interference in the assays ALT, AST, T4, CKMB, glucose, and ammonia. The probability of misinterpretation of results for the assays is remote and would be limited to scenarios where a patient has taken the drug and had a blood sample drawn before clearance of the drug to a level that does not interfere with laboratory testing. Venipuncture should occur prior to administration of the drug. Blood Urea Nitrogen 18 7 - 22 mg/dL 10/04/2020 11:38 AM EDT Creatinine Level 0.80 0.55 - 1.02 mg/dL 10/04/2020 11:38 AM EDT Bun/Creatinine 22.5(H) 8.0 - 20.0 10/04/2020 11:38 AM EDT Albumin Level 2.9(L) 3.4 - 5.0 Gram/dL 10/04/2020 11:38 AM EDT Protein, Total 6.0(L) 6.4 - 8.2 Gram/dL 10/04/2020 11:38 AM EDT A/G Ratio 0.9(L) 1.1 - 2.5 10/04/2020 11:38 AM EDT Alk Phos 87 27 - 136 Units/Lit er 10/04/2020 11:38 AM EDT ALT 71(H) 13 - 56 Units/Lit er 10/04/2020 11:38 AM EDT Comment: Released without repeat. Marqeta has become aware of sulfasalazine and sulfapyridine drug interference in the assays ALT, AST, T4, CKMB, glucose, and ammonia. The probability of misinterpretation of results for the assays is remote and would be limited to scenarios where a patient has taken the drug and had a blood sample drawn before clearance of the drug to a level that does not interfere with laboratory testing. Venipuncture should occur prior to administration of the drug. AST 70(H) 5 - 37 Units/Lit er 10/04/2020 11:38 AM EDT Comment: Marqeta has become aware of sulfasalazine and sulfapyridine drug interference in the assays ALT, AST, T4, CKMB, glucose, and ammonia. The probability of misinterpretation of results for the assays is remote and would be limited to scenarios where a patient has taken the drug and had a blood sample drawn before clearance of the drug to a level that does not interfere with laboratory testing. Venipuncture should occur prior to administration of the drug. Bilirubin, Total 0.8 0.2 - 1.2 mg/dL 10/04/2020 11:38 AM EDT Comment: Total bilirubin results may be falsely elevated in patients undergoing treatment with eltrombopag (Promacta). Results should be correlated to clinical symptomology and additional laboratory testing including other markers for liver function, e.g., alanine aminotransferase, aspartate aminotransferase, alkaline phosphatase, and/or lactate dehydrogenase. Globulin 3.1 1.5 - 4.5 Gram/dL 10/04/2020 11:38 AM EDT eGFR >60 >=60 mL/min/1. 73m2 10/04/2020 12:25 PM EDT Comment: GFR <60 suggests chronic kidney disease, if found over 3 month period. GFR <15 indicates renal failure. eGFR NonAfrican >60 >=60 mL/min/1. 73m2 10/04/2020 12:25 PM EDT Comment: GFR <60 suggests chronic kidney disease, if found over 3 month period. GFR <15 indicates renal failure. Blood 10/04/2020 6:54 AM EDT 10/04/2020 11:13 AM EDT [facility] Historical Provider LAB BLOOD ORDERABLES Fi nal Result [facility] [address] [phone] documented in this encounter Visit Diagnoses Not on filedocumented in this encounter
--- OUTSIDE RECORDS SUMMARY | 2024-04-06 21:56 | XMS_ITS | Encounter Summary ---
Author Organization [employer] Address [address] [place] [address] Care Team Providers Care Dynamometer Tester Engine Name Role Phone Unavailable Primary Care Provider Unavailabl e Encounter Details Date Type Department Care Team (Late st Contact Info) Description 10/05/2020 Historic Encounter [address] [address] ProviderScarlet Historical Social History Tobacco [...] Date/Time Associated Diagnosis Comments GLUCOSE-POC Routine 10/05/2020 11:24 AM EDT documented in this encounter Results * Glucose, Point of Care (10/05/2020 11:24 AM EDT) Glucose POC2 109 70 - 110 mg/dL 10/05/2020 3:24 PM EDT [facility] Urgent Care Physician Assistant [id number] 10/05/2020 3:24 PM EDT [facility] Device SN [id number] 10/05/2020 3:24 PM EDT [facility] Device Comment1 Protocols Followed 10/05/2020 3:24 PM EDT [facility] Blood 10/05/2020 11:2 4 AM EDT 10/05/2020 3:25 PM EDT [facility] Historical Provider POINT OF CARE TEST ORDSamantha BRISCOE Final Result Performing Organization Address City/State/[facility] Co de Phone Number [facility] [address] [place] [address] documented in this encounter Visit Diagnoses Not on filedocumented in this encounter
--- OUTSIDE RECORDS SUMMARY | 2024-04-06 21:56 | XMS_ITS | Encounter Summary ---
Author Organization [employer] Address [address] [place] [address] Care Team Providers Care Appetizer Packer Name Role Phone Unavailable Primary Care Provider Unavailabl e Encounter Details Date Type Department Care Team (Late st Contact Info) Description 10/04/2020 Historic Encounter [facility] [address] [place] [address] Provider, [facility] Historical Social History Tobacco Use Types Packs/Day [...] Procedure Name Priority Date/Time Associated Diagnosis Comments MAGNESIUM LEVEL ([facility] DATA CONV) Routine 10/04/2020 6:54 AM EDT documented in this encounter Results * MAGNESIUM LEVEL ([facility]K DATA CONV) (10/04/2020 6:54 AM EDT) Magnesium Level 1.9 1.5 - 2.4 mg/dL 10/04/2020 11:37 AM EDT Blood 10/04/2020 6:54 AM EDT 10/04/2020 11:13 AM EDT [facility] Historical Provider LAB BLOOD ORDERABLES Fi nal Result [facility] [address] [place], [place] [address] [phone] documented in this encounter Visit Diagnoses Not on filedocumented in this encounter
--- OUTSIDE RECORDS SUMMARY | 2024-04-06 21:56 | XMS_ITS | Encounter Summary ---
Author Organization [employer] Address [address] [place] [address] Care Team Providers Care Bi Analyst Name Role Phone Unavailable Primary Care Provider Unavailabl e Encounter Details Date Type Department Care Team (Late st Contact Info) Description 10/04/2020 Historic Encounter [address] [address] ProviderScarlet Historical Social History Tobacco [...] Date/Time Associated Diagnosis Comments GLUCOSE-POC Routine 10/04/2020 5:53 AM EDT documented in this encounter Results * Glucose, Point of Care (10/04/2020 5:53 AM EDT) Glucose POC2 99 70 - 110 mg/dL 10/04/2020 9:53 AM EDT [facility] Comber Operator [id number] 10/04/2020 9:53 AM EDT [facility] Device SN [id number] 10/04/2020 9:53 AM EDT [facility] Device Comment1 No action Require 10/04/2020 9:53 AM EDT [facility] Blood 10/04/2020 5:53 AM EDT 10/04/2020 9:54 AM EDT [facility] Historical Provider POINT OF CARE TEST ORDE LUIS FELIPE Final Result Performing Organization Address City/State/[facility] Co de Phone Number [facility] [address] [place] [address] documented in this encounter Visit Diagnoses Not on filedocumented in this encounter
--- OUTSIDE RECORDS SUMMARY | 2024-04-06 21:56 | XMS_ITS | Encounter Summary ---
Author Organization [employer] Address [address] [place] [address] Care Team Providers Care Snagger Name Role Phone Salima Gonzáles Primary Care Provider [phone] Encounter Details Date Type Department Care Team (Late st Contact Info) Description 10/23/2020 Transcribed Document [facility] [place] [facility] [place] [address] ProviderQuincy MD [address] [place] [phone] Social History Tobacco Use Types Packs/Day Years Used Date Smoking Tobacco: Never Assessed Comments Unknown Sex and Gender Information Value Date Recorded Sex Assigned at Not on file Legal Sex Female 2:54 PM CDT Gender Identity Not on file Sexual Orientation Not on file documented as of this encounter Miscellaneous Notes * Cerner Conversion Note - Quincy Kate MD - 10/23/2020 12:34 PM CDT [facility] Authorization Entered On: 10/23/2020 12:34 EDT Performed On: 10/23/2020 12:34 EDT by JACQUE HOFFMANN RN Primary Insurance Authorization Authorization and Policy Numbers : Insurance 1 Health Plan: [employer] MEDICARE REPL Policy Number: [id number] Authorization Number: Insurance Primary Name : [facility] MEDIC[facility] REPL Policy Number: [id number] Authorization Status-Primary : Denied Auth/Referral Contact Name-Primary : DC+ Reference Number-Primary : [id number] Authorized Service Begin Date-Primary : 10/03/2020 EDT Authorization Comments-Primary : Yeison coello to bill under part b. emailed to billing. Historical Authorization Comments-Primary : Comment 1: Discharge date and summary faxed. (Katia Pratt, Photo Colorer 10/13/2020 15:02) Comment 2: Email to David/Mary/MOSHE (JUSTEN HARTLEY, Rn-Utilization Review 10/13/2020 10:20) Comment 3: Rec fax from [place] 10/12/20 States admission has been denied. Fax to Jacque Tabor (TEMI LAMBERT, Senior Partner 10/12/2020 14:42) Comment 4: Per Jinny remains pending (JACQUE HOFFMANN RN 10/12/2020 12:06) Comment 5: Faxed dc summary via [employer] (JACQUE HOFFMANN RN 10/11/2020 12:12) Comment 6: Remains pending per Availity (JACQUE HOFFMANN RN 10/11/2020 12:11) Comment 7: Email sent to jinny (JACQUE HOFFMANN RN 10/09/2020 15:11) Comment 8: Clinicals faxed via [employer] for IP approval (DEISY LIRA RN 10/05/2020 14:13) Comment 9: Clinicals submitted via [employer] for IP approval (DEISY LIRA RN 10/04/2020 08:24) JACQUE HOFFMANN RN - 10/23/2020 12:34 EDT documented in this encounter Plan of Treatment Not on file documented as of this encounter Visit Diagnoses Not on filedocumented in this encounter Care Teams Snagger Relationship Specialty Start Date End Date Salima Gonzáles, DO [address] [place] [address] PCP - General Family Medicine 02/09/23 documented as of this encounter
--- OUTSIDE RECORDS SUMMARY | 2024-04-06 21:56 | XMS_ITS | Encounter Summary ---
Author Organization [employer] Address [address] [place] [address] Care Team Providers Care Quantitative Equity Head Name Role Phone Salima Gonzáles DO Primary Care Provider [phone] Encounter Details Date Type Department Care Team (Late st Contact Info) Description 10/04/[address] [facility] Family Medicine [address] [place] [address] ProviderQuincy MD [address] [place] [address] Social History Tobacco Use Types Packs/Day Years Used Date Smoking Tobacco: Never Assessed Comments Unknown Sex and Gender Information Value Date Recorded Sex Assigned at Not on file Legal Sex Female 2:54 PM CDT Gender Identity Not on file Sexual Orientation Not on file documented as of this encounter Miscellaneous Notes * Cerner Conversion Note - Quincy Kate MD - 10/04/2020 1:16 PM CDT [facility] Main OR IntraOp Summary Primary Physician: ANNABEL ZAMBRANO MD-URO Finalized Date/Time: 10/10/20 09:57:38 Pt. Name: JACOB VASQUEZAMBIKA D.O.B./Sex: 1965 Female Med Rec #: [id number] Physician: SUREKHA ARGUELLES MD Financial #: [id number] Pt. Type: I Room/Bed: [facility]/ Admit/Disch: 10/03/20 18:06:00 - 10/05/20 16:59:00 Institution: [facility] IntraOp Case Attendance Entry 1 Entry 2 Entry 3 Case Attendee ANNABEL ZAMBRANO MD-URO Neha Duarte, Mendel Pierce, RN Role Performed Surgeon/Proceduralist, Tank Car Reconditioner, First Tank Car Reconditioner, Second First Time In 10/04/20 13:03:00 10/04/20 13:03:00 10/04/20 13:03:00 Time Out 10/04/20 13:54:00 10/04/20 13:54:00 10/04/20 13:54:00 Procedure Ureteroscopy(Left) Ureteroscopy(Left) Ureteroscopy(Left) Other Attendee LASER Superficial Wound Closed By: Last Modified By: Neha Duarte, Neha Fleming, Neha Fleming Rn 10/04/20 13:54:29 10/04/20 13:54:29 10/04/20 13:54:29 Entry 4 Entry 5 Case Attendee Prema Rojas, VERONICA AU MD-ANS Retail Sales Lead Role Performed Scrub, First Anesthesiologist Time In 10/04/20 13:03:00 10/04/20 13:03:00 Time Out 10/04/20 13:54:00 10/04/20 13:54:00 Procedure Ureteroscopy(Left) Ureteroscopy(Left) Other Attendee Superficial Wound Closed By: Last Modified By: Neha Duarte Rn Moore, Kimberly A, Rn 10/04/20 13:54:29 10/04/20 13:54:29 [facility] IntraOp Case Attendance Audit 10/04/20 13:54:29 Weight Reduction Specialist: [id number] Modifier: [id number] 1 <+> Time Out 1 <*> Procedure Ureteroscopy(Left) 2 <+> Time Out 2 <*> Procedure Ureteroscopy(Left) 3 <+> Time Out 3 <*> Procedure Ureteroscopy(Left) 4 <+> Time Out 4 <*> Procedure Ureteroscopy(Left) 5 <+> Time Out 5 <*> Procedure Ureteroscopy(Left) 10/04/20 13:43:04 Weight Reduction Specialist: [id number] Modifier: [id number] <+> 1 Time In <+> 1 Procedure 2 <+> Time In 2 <*> Procedure Ureteroscopy(Left) 3 <+> Time In 3 <*> Procedure Ureteroscopy(Left) 4 <+> Time In 4 <*> Procedure Ureteroscopy(Left) 5 <+> Time In 5 <*> Procedure Ureteroscopy(Left) [facility] IntraOp Case Times Entry 1 Patient In Room Time 10/04/20 13:03:00 Out Room Time 10/04/20 13:54:00 Anesthesia Start Time 10/04/20 13:03:00 Stop Time 10/04/20 13:54:00 Surgery / Procedure Times Start Time 10/04/20 13:16:00 Stop Time 10/04/20 13:47:00 Last Modified By: Neha Duarte Rn 10/04/20 13:54:29 [facility] IntraOp Case Times Audit 10/04/20 13:54:29 Weight Reduction Specialist: [id number] Modifier: [id number] <+> 1 Out Room Time <+> 1 Stop Time 10/04/20 13:48:00 Weight Reduction Specialist: [id number] Modifier: [id number] <+> 1 Stop Time [facility] IntraOp Departure from OR Entry 1 Integumentary Assessment Integumentary WDL Assessment WDL Transfer/Handoff Transfer to PACU Phase I Handoff Method Bedside/Face to face, Phone call, Online nursing summary Post-op Transport Stretcher/Gurney Via Patient Transport Neha Duarte Rn, Accompanied by VERONICA AU MD-ANS Last Modified By: Neha Duarte Rn 10/04/20 13:38:09 [facility] IntraOp Fire Risk Assessment Entry 1 Fire Info Surgical Site or 0- No Incision Above the Xyphoid Open O2 Source 0- No (Mask or Cannula) Available Ignition 1- Yes (ESU, Laser, Light Source) Fire Risk 1 Assessment Score Fire Score Fire Risk Yes Assessment Complete Fire Risk Neha Duarte Rn Assessment Verified By Fire Risk 10/04/20 13:03:00 Assessment Verified Date/Time Fire Risk Standard Fire Yes Safety Precautions Followed Last Modified By: Neha Duarte Rn 10/04/20 13:38:19 [facility] IntraOp General Case Meteorological Observer 1 Case Information OR Cysto 01 [facility] Case Level 1 Room Verified Yes Wound Class II - Clean-Contaminated Specialty Urology Anesthesia Type General ASA Class 3E Diagnosis Preop Diagnosis LEFT RENAL STONE Postop Same As Preop No Postop Diagnosis SEE MD POST OP NOTES Last Modified By: Neha Duarte Rn 10/04/20 13:41:52 [facility] IntraOp Implant Log Entry 1 Type Implant (Synthetic) Implant Log Implant Type Other Implant STENT URET BRAID + Identification [id number] Description Implant Quantity 1 Implant Site LEFT URETER Implant [place] Identification Sci:Urology/Gynecology Reinforcing Iron Worker Helper Name: Implant [id number] Identification Catalog Number Implant Expiration 03/25/23 Date Tissue Implant Last Modified By: Neha Duarte Rn 10/04/20 13:44:42 [facility] IntraOp Intraoperative Assessment Entry 1 Handoff Method Phone call, Online nursing summary Valid History / Yes Physical in Chart Preoperative Yes Checklist Reviewed/Evaluated Allergies Reviewed Yes Patient is Latex No Sensitive Isolation Not applicable Precautions Noted Level of WDL Consciousness (WDL = Alert, Oriented to Person, Place, and Time) Skin Assessment Yes Verified Present Upon IVs Arrival to OR Last Modified By: Neha Duarte Rn 10/04/20 13:42:00 [facility] IntraOp Patient Positioning Entry 1 Procedure Ureteroscopy(Left) Body Position Lithotomy Left Arm Position Tucked and padded at side Right Arm Position Tucked and padded at side Left Leg Position Secured in Leg Giordano Right Leg Position Secured in Leg Giordano Feet Uncrossed Yes Pressure Points Yes Checked Positioning Devices Head Rest, Table, Cysto, Pad, Elbow, Stirrups/Leg Giordano, Cysto Positioned By ANNABEL ZAMBRANO MD-URO, Neha Duarte Rn Position Verified Positioning Yes Verified by Anesthesia Positioning Yes Verified by Surgeon Last Modified By: Neha Duarte Rn 10/04/20 13:42:19 [facility] IntraOp Sign In Entry 1 Patient, Site, Yes Procedure Identified Surgical Consent Yes Confirmed Relevant Surgical Yes Documents Available Surgical Site N/A Marked by person performing procedure Anesthesia Machine Yes Check Completed Medication Checks Yes Completed Allergies Yes Airway Difficult Yes Airway/Aspiration Risk Difficult Yes Airway/Aspiration Intervention Equipment Available Blood Loss Risk Yes Blood Loss Yes Intervention Equipment Prepared and Ready Hypothermia Risk Yes Warming Measures Yes Taken Last Modified By: Neha Duarte Rn 10/04/20 13:42:22 [facility] IntraOp Sign Out Entry 1 RN Confirmation Surgical Yes Procedure(s) Identified Instrument, Sponge N/A and Sharps Counts Correct/Documented Equipment Problems N/A Documented Specimen Labeled N/A Correctly Urinary Catheter N/A Documented in IView Gottlieb Patient Yes Recovery Concerns Reviewed with Anesthesia Provider, Surgeon and RN Gottlieb Patient Yes Management Concerns Reviewed with Anesthesia Provider, Surgeon and RN Safety Checklist Yes Elements Complete? RN Sign Out Neha Duarte Rn Signature RN Sign Out 10/04/20 13:42:00 Signature Date/Time Plan of Care Outcome - Fire Risk OUTCOME STATEMENT: Goal met Patient is free from injury related to surgical fire Plan of Care Outcome - Pt Positioning OUTCOME STATEMENT: Goal met Absence of signs and symptoms of positioning injury. Plan of Care Outcome - Skin Prep OUTCOME STATEMENT: Goal met Intraoperative care is consistent with measures to prevent infection Plan of Care Outcome - Xray/Images OUTCOME STATEMENT: Goal met Absence of observable signs or symptoms of radiation injury Plan of Care Outcome - Counts OUTCOME STATEMENT: Goal met Absence of signs and symptoms of injury related to extraneous objects Last Modified By: Neha Duarte Rn 10/04/20 13:42:31 [facility] IntraOp Skin Prep Entry 1 Procedure Ureteroscopy(Left) Prescribed N/A Pre-Surgical Prep Completed Prep Area genitalia Intraop Prep Integumentary WDL Assessment WDL Prep Agents Betadine solution Prep by Mendel Borrego RN Hair Removal Methods No hair removal performed Last Modified By: Neha Duarte Rn 10/04/20 13:42:55 [facility] Intra Surgical Procedures Entry 1 Procedure Ureteroscopy Modifiers Left Additional URETEROSCOPY WITH LASER Procedure LEFT Description Primary Procedure Yes Primary Surgeon ANNABEL ZAMBRANO MD-URO Start 10/04/20 13:16:00 Stop 10/04/20 13:47:00 Anesthesia Type General Specialty Urology Wound Class II - Clean-Contaminated Last Modified By: Neha Duarte Rn 10/04/20 13:48:02 [facility] Intra Surgical Procedures Audit 10/04/20 13:48:02 Weight Reduction Specialist: [id number] Modifier: [id number] <+> 1 Stop [facility] IntraOP Time Out Entry 1 Procedure to be Ureteroscopy(Left) Performed Time Out Time Out Pause Time 10/04/20 13:16:00 All activity Yes suspended (unless life threatening emergency) Team Verbally Correct patient Confirms Information identity, Correct side and site are marked, Consent form is present and accurate, Agreement on the procedure to be done, Correct patient position, Confirm antibiotics have been administered, Confirm the skin prep has dried, Confirm prosthesis/implant/devic e is present, Performed in location of procedure after prepped/draped Antibiotic Yes Prophylaxis Administered Or In Progress Within the Last 60 Minutes Beta Nataliya N/A Administered Venous N/A Thromboembolism Prophylaxis Required Anticipated Critical Events Surgeon None expected Anesthesia Provider None expected Nursing Assures Sterility of instruments, Implant Availability Essential Imaging Yes Labeled and Displayed Last Modified By: Neha Duarte Rn 10/04/20 13:43:40 Case Comments <None> Finalized By: HERI TSANG Document Signatures Signed By: Neha Duarte Rn 10/04/20 13:54 HERI TSANG 10/10/20 09:57 Unfinalized History Date/Time Username Reason for Unfinalizing Freetext Reason for Unfinalizing 10/10/20 09:50 [id number] Correct Billing Electronically signed by [facility] Conversion Adjunct Professor Of Voice Cerner at 08/23/2022 11:10 AM CDT documented in this encounter Plan of Treatment Not on file documented as of this encounter Visit Diagnoses Not on filedocumented in this encounter Care Teams Quantitative Equity Head Relationship Specialty Start Date End Date Salima Gonzáles, [address] [facility] [address] [place] [address] PCP - General Family Medicine 02/09/23 documented as of this encounter
--- OUTSIDE RECORDS SUMMARY | 2024-04-06 21:56 | XMS_ITS | Encounter Summary ---
Author Organization [employer] Address [address] [place] [address] Care Team Providers Care Shuttle Threader Name Role Phone Salima Gonzáles Primary Care Provider [phone] Encounter Details Date Type Department Care Team (Late st Contact Info) Description 10/12/2020 Transcribed Document [facility] [place] [place] Family [place] [address] ProviderQuincy MD [address] [place] [phone] Social History Tobacco Use Types Packs/Day Years Used Date Smoking Tobacco: Never Assessed Comments Unknown Sex and Gender Information Value Date Recorded Sex Assigned at Not on file Legal Sex Female 2:54 PM CDT Gender Identity Not on file Sexual Orientation Not on file documented as of this encounter Miscellaneous Notes * Cerner Conversion Note - Quincy Kate MD - 10/12/2020 2:42 PM CDT Authorization Entered On: 10/12/2020 14:43 EDT Performed On: 10/12/2020 14:42 EDT by TEMI LAMBERT, Centrifuge Separator Tender Primary Insurance Authorization Authorization and Policy Numbers : Insurance 1 Health Plan: [facility] MEDICARE REPL Policy Number: [id number] Authorization Number: Insurance Primary Name : [employer] MEDICARE REPL Policy Number: [id number] Authorization Status-Primary : Denied Reference Number-Primary : [id number] Authorized Service Begin Date-Primary : 10/03/2020 EDT Authorization Comments-Primary : Rec fax from [place] 10/12/20 States admission has been denied. Fax to Ping J Historical Authorization Comments-Primary : Comment 1: Per Madelyn remains pending (PING HOFFMANN RN 10/12/2020 12:06) Comment 2: Faxed dc summary via [employer] (PING HOFFMANN RN 10/11/2020 12:12) Comment 3: Remains pending per Availity (PING HOFFMANN RN 10/11/2020 12:11) Comment 4: Email sent to madelyn (PING HOFFMANN RN 10/09/2020 15:11) Comment 5: Clinicals faxed via [email or web address] for IP approval (DEISY LIRA RN 10/05/2020 14:13) Comment 6: Clinicals submitted via [employer] for IP approval (DEISY LIRA RN 10/04/2020 08:24) TEMI LAMBERT, Centrifuge Separator Tender - 10/12/2020 14:42 EDT Electronically signed by [place] [facility] Conversion Web Site Admin Cerner at 08/23/2022 10:49 AM CDT documented in this encounter Plan of Treatment Not on file documented as of this encounter Visit Diagnoses Not on filedocumented in this encounter Care Teams Shuttle Threader Relationship Specialty Start Date End Date Salima Gonzáles, [address] [facility] [address] [place] [address] PCP - General Family Medicine 02/09/23 documented as of this encounter
--- OUTSIDE RECORDS SUMMARY | 2024-04-06 21:56 | XMS_ITS | Encounter Summary ---
Author Organization [employer] Address [address] [place] [address] Care Team Providers Care Public Policy Coordinator Name Role Phone Salima Gonzáles DO Primary Care Provider [phone] Encounter Details Date Type Department Care Team (Late st Contact Info) Description 10/05/2020 Transcribed Document [facility] [place] Family Medicine [address] [place] [address] ProviderQuincy MD [address] [place] [address] Social History Tobacco Use Types Packs/Day Years Used Date Smoking Tobacco: Never Assessed Comments Unknown Sex and Gender Information Value Date Recorded Sex Assigned at Not on file Legal Sex Female 2:54 PM CDT Gender Identity Not on file Sexual Orientation Not on file documented as of this encounter Miscellaneous Notes * Cerner Conversion Note - Historical ProviderMD - 10/05/2020 11:11 AM CDT Spiritual Care Short Form Entered On: 10/06/2020 15:32 EDT Performed On: 10/05/2020 11:11 EDT by BENI HDEZ General Information, Spiritual Care Intervention/Comment/Summary Points : Participated in MultiDisciplinary Rounds BENI HDEZ - 10/06/2020 15:31 EDT documented in this encounter Plan of Treatment Not on file documented as of this encounter Visit Diagnoses Not on filedocumented in this encounter Care Teams Public Policy Coordinator Relationship Specialty Start Date End Date Salima Gonzáles DO [address] [facility] [address] [place] [address] PCP - General Family Medicine 02/09/23 documented as of this encounter
--- OUTSIDE RECORDS SUMMARY | 2024-04-06 21:56 | XMS_ITS | Encounter Summary ---
Author Organization [employer] Address [address] [place] [address] Care Team Providers Care Fruit Ii Farmworker Name Role Phone Unavailable Primary Care Provider Unavailabl e Encounter Details Date Type Department Care Team (Late st Contact Info) Description 10/04/2020 Historic Encounter [address] [address] Provider [facility] Historical Social History Tobacco Use Types Packs/Day [...] Procedure Name Priority Date/Time Associated Diagnosis Comments CBC W/ AUTO DIFF ([facility] DATA CONV) Routine 10/04/2020 6:54 AM EDT documented in this encounter Results * (ABNORMAL) CBC W/ AUTO DIFF ([facility] DATA CONV) (10/04/2020 6:54 AM EDT) WBC 5.5 4.5 - 10.5 K/uL 10/04/2020 11:18 AM EDT RBC 3.22(L) 3.93 - 5.22 Million/uL 10/04/2020 11:18 AM EDT Hgb 10.9(L) 11.2 - 15.7 g/dL 10/04/2020 11:18 AM EDT Hct 31.8(L) 34.1 - 44.9 % 10/04/2020 11:18 AM EDT MCV 98.8(H) 79.0 - 94.8 fL 10/04/2020 11:18 AM EDT MCH 33.9(H) 25.6 - 32.2 pg 10/04/2020 11:18 AM EDT MCHC 34.3 32.2 - 36.5 Gram/dL 10/04/2020 11:18 AM EDT RDW 13.5 11.7 - 14.9 % 10/04/2020 11:18 AM EDT Platelet Count 240 163 - 369 K/uL 10/04/2020 11:18 AM EDT MPV 10.2 9.4 - 12.4 fL 10/04/2020 11:18 AM EDT Slide Review No 10/04/2020 11:21 AM EDT Blood 10/04/2020 6:54 AM EDT 10/04/2020 11:13 AM EDT [facility] Historical Provider LAB BLOOD ORDERABLES Fi nal Result [facility] [address] [phone] documented in this encounter Visit Diagnoses Not on filedocumented in this encounter
--- OUTSIDE RECORDS SUMMARY | 2024-04-06 21:56 | XMS_ITS | Encounter Summary ---
Author Organization [employer] Address [address] [place] [address] Care Team Providers Care Boat Operator Name Role Phone Salima Gonzáles DO Primary Care Provider [phone] Encounter Details Date Type Department Care Team (Late st Contact Info) Description 10/05/2020 Transcribed Document [facility] [place] [address] [place] [address] ProviderQuincy MD [address] [place] [address] Social History Tobacco Use Types Packs/Day Years Used Date Smoking Tobacco: Never Assessed Comments Unknown Sex and Gender Information Value Date Recorded Sex Assigned at Not on file Legal Sex Female 2:54 PM CDT Gender Identity Not on file Sexual Orientation Not on file documented as of this encounter Miscellaneous Notes * Cerner Conversion Note - Quincy ProviderMD - 10/05/2020 2:28 PM CDT Stroke/Warfarin Instructions Entered On: 10/05/2020 14:28 EDT Performed On: 10/05/2020 14:28 EDT by Jocelyn Bates Virtual RN Stroke/Warfarin Instructions Stroke/TIA Discharge Ins : N/A Warfarin Discharge Ins : N/A Jocelyn Bates Virtual RN - 10/05/2020 14:28 EDT documented in this encounter Plan of Treatment Not on file documented as of this encounter Visit Diagnoses Not on filedocumented in this encounter Care Teams Boat Operator Relationship Specialty Start Date End Date Salima Gonzáles DO [address] [place] [address] PCP - General Family Medicine 02/09/23 documented as of this encounter
--- OUTSIDE RECORDS SUMMARY | 2024-04-06 21:56 | XMS_ITS | Encounter Summary ---
Author Organization [employer] Address [address] [place] [address] Care Team Providers Care Transitional Nurse Name Role Phone Salima Gonzáles Primary Care Provider [phone] Encounter Details Date Type Department Care Team (Late st Contact Info) Description 10/11/2020 Transcribed Document [facility] [place] [facility] [place] [address] ProviderQuincy MD [address] [place] [address] [id number] Social History Tobacco Use Types Packs/Day Years Used Date Smoking Tobacco: Never Assessed Comments Unknown Sex and Gender Information Value Date Recorded Sex Assigned at Not on file Legal Sex Female 2:54 PM CDT Gender Identity Not on file Sexual Orientation Not on file documented as of this encounter Miscellaneous Notes * Michael Conversion Note - Quincy Kate MD - 10/11/2020 12:12 PM CDT UM Authorization Entered On: 10/11/2020 12:13 EDT Performed On: 10/11/2020 12:12 EDT by PING HOFFMANN RN Primary Insurance Authorization Authorization and Policy Numbers : Insurance 1 Health Plan: [employer] MEDICARE REPL Policy Number: [id number] Authorization Number: Insurance Primary Name : AN[employer]M MEDICARE REPL Policy Number: [id number] Authorization Status-Primary : Awaiting callback Reference Number-Primary : [id number] Authorized Service Begin Date-Primary : 10/03/2020 EDT Authorization Comments-Primary : Faxed dc summary via Michael Historical Authorization Comments-Primary : Comment 1: Remains pending per Availity (PING HOFFMANN RN 10/11/2020 12:11) Comment 2: Email sent to madelyn (PING HOFFMANN RN 10/09/2020 15:11) Comment 3: Clinicals faxed via [employer] for IP approval (DEISY LIRA RN 10/05/2020 14:13) Comment 4: Clinicals submitted via [employer] for IP approval (DEISY LIRA RN 10/04/2020 08:24) PING HOFFMANN RN - 10/11/2020 12:12 EDT documented in this encounter Plan of Treatment Not on file documented as of this encounter Visit Diagnoses Not on filedocumented in this encounter Care Teams Transitional Nurse Relationship Specialty Start Date End Date Salima Gonzáles, 8 [facility] [address] [place] [address] PCP - General Family Medicine 02/09/23 documented as of this encounter
--- OUTSIDE RECORDS SUMMARY | 2024-04-06 21:56 | XMS_ITS | Encounter Summary ---
Author Organization [employer] Address [address] [place] [address] Care Team Providers Care Nurse Emergency Name Role Phone Salima Gonzáles Primary Care Provider [phone] Encounter Details Date Type Department Care Team (Late st Contact Info) Description 10/11/2020 Transcribed Document [facility] [place] [facility] [place] [address] ProviderQuincy MD [address] [place] [address] [id number] Social History Tobacco Use Types Packs/Day Years Used Date Smoking Tobacco: Never Assessed Comments Unknown Sex and Gender Information Value Date Recorded Sex Assigned at Not on file Legal Sex Female 2:54 PM CDT Gender Identity Not on file Sexual Orientation Not on file documented as of this encounter Miscellaneous Notes * Cerner Conversion Note - Quincy Kate MD - 10/11/2020 12:11 PM CDT UM Authorization Entered On: 10/11/2020 12:11 EDT Performed On: 10/11/2020 12:11 EDT by PING HOFFMANN RN Primary Insurance Authorization Authorization and Policy Numbers : Insurance 1 Health Plan: [facility] MEDICARE REPL Policy Number: [id number] Authorization Number: Insurance Primary Name : [employer]M MEDICARE REPL Policy Number: [id number] Authorization Status-Primary : Awaiting callback Reference Number-Primary : [id number] Authorized Service Begin Date-Primary : 10/03/2020 EDT Authorization Comments-Primary : Remains pending per Availity Historical Authorization Comments-Primary : Comment 1: Email sent to madelyn (PING HOFFMANN RN 10/09/2020 15:11) Comment 2: Clinicals faxed via [employer] for IP approval (DEISY LIRA RN 10/05/2020 14:13) Comment 3: Clinicals submitted via [employer] for IP approval (DEISY LIAR RN 10/04/2020 08:24) PING HOFFMANN RN - 10/11/2020 12:11 EDT Electronically signed by [facility] Conversion Satellite Installation Technician Cerner at 08/23/2022 11:09 AM CDT documented in this encounter Plan of Treatment Not on file documented as of this encounter Visit Diagnoses Not on filedocumented in this encounter Care Teams Nurse Emergency Relationship Specialty Start Date End Date Salima Gonzáles DO [address] [address] PCP - General Family Medicine 02/09/23 documented as of this encounter
--- OUTSIDE RECORDS SUMMARY | 2024-04-06 21:56 | XMS_ITS | Encounter Summary ---
Author Organization [facility] Address [address] [place] [address] Care Team Providers Care Gunstock Repairer Name Role Phone Unavailable Primary Care Provider Unavailabl e Encounter Details Date Type Department Care Team (Latest Contact Info) Description 09/22/2015 6:31 PM EDT - 09/22/2015 11:59 PM EDT Hospital Encounter [facility] DEPARTMENT [address] [place] [address] Harper Loya PA [address] [place] [address] [address] [place] [address] Discharge Disposition: Home or Self Care Social [...] Procedure Name Priority Date/Time Associated Diagnosis Comments ROUTINE CULTURE, NO GRAM STAIN Routine 09/22/2015 7:36 PM EDT documented in this encounter Results * Routine culture, no gram stain (09/22/2015 7:36 PM EDT) Swab (specimen) 09/22/2015 7 :36 PM EDT 09/22/2015 7:36 PM EDT Comment:R BREAST Narrative [facility] - 09/26/2015 11:18 AM EDT Specimen Type : Wound Specimen/Source: Wound/R BREAST Collected: 09/22/2015 19:36 EDT Status: Final ?Last Updated: 09/26/2015 11:18 EDT ?Isolate (Final) ?Rare ??Growth ?Staphylococcus hominis subsp hominis ?This isolate has screened Negative for inducible Clindamycin Resistance. ?Isolate ?Staphylococcus ?hominis subsp ?hominis ?JAVAN (mcg/ml) ?Clindamycin (CD) ?<=0.5 ?S ?Daptomycin (DAP) ?<=0.5 ?S ?Erythromycin (E) ?>4 ? R ?Gentamicin (GM) ? <=4 ?S ?Levofloxacin (LEV) ?<=1 ?S ?Linezolid (GENEVIEVE) ? <=1 ?S ?Oxacillin (OX) ?>2 ? R ?Penicillin (P) ?>8 ? R ?Rifampin (RIF) ?<=1 ?S ?Synercid (QDA) ?<=0.5 ?S ?Tetracycline (TE) ? <=4 ?S ?Trimethoprim/Sulfa (T/>2/38 ?R ?S) ?Vancomycin (V) ?0.5 ?S Interpretation Table: ?? Code ?? Description ?? --- ? S ?Susceptible ?? R ?Resistant Antibiotic Summary Grid: ? CD ?DAP ?? E ? GM ?LEV ?? GENEVIEVE ?? Staphylococcus hominis subsp ??S ? S ? R ? S ? S ? S ?? hominis ? OX ?P ? RIF ?? QDA ?? TE ?T/S ?? Staphylococcus hominis subsp ??R ? R ? S ? S ? S ? R ?? hominis ? V ?? Staphylococcus hominis subsp ??S ?? hominis us Harper [facility] MICROBI[facility] - GENERAL OR DERABLES Final Result [facility]
[address] [id number], documented in this encounter Visit Diagnoses Not on filedocumented in this encounter
--- OUTSIDE RECORDS SUMMARY | 2024-04-06 21:56 | XMS_ITS | Encounter Summary ---
Author Organization [employer] Address [address] [place] [address] Care Team Providers Care Hand Rigger Name Role Phone Salima Gonzáles Primary Care Provider [phone] Encounter Details Date Type Department Care Team (Late st Contact Info) Description 10/05/2020 Transcribed Document [facility] [place] [facility] [place] [address] ProviderQuincy MD [address] [place] [address] [phone] Social History Tobacco Use Types Packs/Day Years Used Date Smoking Tobacco: Never Assessed Comments Unknown Sex and Gender Information Value Date Recorded Sex Assigned at Not on file Legal Sex Female 2:54 PM CDT Gender Identity Not on file Sexual Orientation Not on file documented as of this encounter Miscellaneous Notes * Cerner Conversion Note - Quincy Kate MD - 10/05/2020 2:13 PM CDT UM Authorization Entered On: 10/05/2020 14:13 EDT Performed On: 10/05/2020 14:13 EDT by DEISY LIRA RN Primary Insurance Authorization Authorization and Policy Numbers : Insurance 1 Health Plan: [employer] MEDICARE REPL Policy Number: [id number] Authorization Number: Insurance Primary Name : ANTHEM MEDICARE REPL Policy Number: [id number] Authorization Status-Primary : Awaiting callback Reference Number-Primary : [id number] Authorized Service Begin Date-Primary : 10/03/2020 EDT Authorization Comments-Primary : Clinicals faxed via [email or web address] for IP approval Historical Authorization Comments-Primary : Comment 1: Clinicals submitted via [employer] for IP approval (DEISY LIRA RN 10/04/2020 08:24) DEISY LIRA RN - 10/05/2020 14:13 EDT Electronically signed by [place] [facility] Conversion Vice President Sales And Marketing Cerner at 08/23/2022 11:14 AM CDT documented in this encounter Plan of Treatment Not on file documented as of this encounter Visit Diagnoses Not on filedocumented in this encounter Care Teams Hand Rigger Relationship Specialty Start Date End Date Salima Gonzáles DO [address] [place] [address] PCP - General Family Medicine 02/09/23 documented as of this encounter
--- OUTSIDE RECORDS SUMMARY | 2024-04-06 21:56 | XMS_ITS | Encounter Summary ---
[facility] Address [address] [place] [address] Care Team Providers Care Application Support Lead Name Role Phone Salima Gonzáles DO Primary Care Provider [phone] Reason for Referral * Diagnostic Imaging (Routine) - Closed Specialty Diagnoses / Procedures Referred By Josep t Referred To Contact Radiology Diagnoses Pain of right heel Procedures MRI Foot Right Without Contrast Rick Hernández MD [address] [place] [address] Phone: tel: fax: [place] [address] Phone: tel: Referral ID Status Reason Start Date Expiration Date Visits Re quested Visits Authorized [id number] Closed 02/21/2017 04/21/2017 1 1 Reason for Visit * Diagnostic Imaging (Routine) - Closed Specialty Diagnoses / Procedures Referred By Contac t Referred To Contact Radiology Diagnoses Pain of right heel Procedures MRI Foot Right Without Contrast Rick Hernández MD [address] [place] [address] Phone: tel: fax: [place] [address] Phone: tel: Referral ID Status Reason Start Date Expiration Date Visits Re quested Visits Authorized [id number] Closed 02/21/2017 04/21/2017 1 1 Encounter Details Date Type Department Care Team (Late st Contact Info) Description 04/20/2017 4:15 PM EST - 04/20/2017 11:59 PM [facility] Hospital Encounter [facility] MRI [address] [place] [id number] Rick Hernández MD [address] [facility] [address] [place] [address] Pain of right heel Discharge Disposition: Home or Self Care Social [...] on file documented as of this encounter Medications at Time of Discharge albuterol (PROVENTIL) (2.5 MG/3ML) 0.083% nebulizer solution Take 2.5 mg by nebulization Every 4 (Four) Hours As Needed for Wheezing. pregabalin (LYRICA) 150 MG capsule Take 1 capsule by mouth 2 (Two) Times a Day. etanercept (ENBREL) 50 MG/ML solution prefilled syringe injection Inject 50 mg under the skin 2 (Two) Times a Week. 3 FLUoxetine (PROzac) 40 MG capsule Take 1 capsule by mouth Daily. 4 fluticasone (VERAMYST) 27.5 MCG/SPRAY nasal spray 2 sprays into each nostril Daily. 3 levothyroxine (SYNTHROID, LEVOTHROID) 125 MCG tablet Take 1 tablet by mouth Daily. 4 loratadine (CLARITIN) 10 MG tablet Take 1 tablet by mouth Daily. 4 montelukast (SINGULAIR) 10 MG tablet Take 1 tablet by mouth Every Night. 4 olmesartan (BENICAR) 20 MG tablet Take 20 mg by mouth Daily. 3 simvastatin (ZOCOR) 10 MG tablet Take 10 mg by mouth Every Night. 3 documented as of this encounter Plan of Treatment Not on file documented as of this encounter Procedures Procedure Name Priority Date/Time Associated Diagnosis Comments MRI FOOT RIGHT WO CONTRAST Routine 04/20/2017 5:45 PM EST Pain of right heel documented in this encounter Results * MRI Foot Right Without Contrast (04/20/2017 5:45 PM EST) Anatomical Region Laterality Modality Lower Extremities, Foot Magnetic Resonance 04/20/2017 4:15 PM EST Impressions 04/22/2017 9:30 AM EST Plantar fasciitis with reactive subchondral marrow edema, heel pad edema, large spur and myositis of the flexor digitorum brevis and abductor digit the minimi muscles. Lower extremity edema. Tibiotalar joint effusion. Mild mild tenderness strain of the soleus. Mild tenosynovitis of the medial and lateral lateral joint line tendons. THIS DOCUMENT HAS BEEN ELECTRONICALLY SIGNED BY RAMY Ochoa 04/22/2017 9:30 AM EST EXAM: ??MR Right Lower Extremity Without Intravenous Contrast, Foot EXAM DATE/TIME: ??04/20/2017 4:15 PM CLINICAL HISTORY: ??51 years old, female; Pain in right foot; Foot and heel; Patient HX: Pain right heel pain x 6 months abnormal xrays per pt- heel spur noted per pt no surgeries on right foot no HX of cancer TECHNIQUE: ??Multiplanar magnetic resonance images of the right foot without intravenous contrast. COMPARISON: ??No relevant prior studies available. FINDINGS: There is increased signal in the subcutaneous soft tissues of the heel pad. Increased signal in the proximal plantar aponeurosis involving the medial cord greater than the lateral cord, increased signal in the flexor digitorum brevis and abductor digiti quinti minimi muscles and there is subchondral marrow edema of the posterior inferior calcaneus and the moderate sized spur. Lower extremity hyperintense signal in the lower leg and foot. Tibiotalar joint effusion. Myotendinous strain of the soleus muscle. Achilles tendon insertion intact. Fluid and pre-calcaneal bursa. Evidence of mild tenosynovitis of the medial and lateral joint line tendons. Extensor and plantar flexor tendons appear to be intact. Medial and lateral joint line ligaments intact. Bony structures of the midfoot and forefoot appear intact. Procedure Note Ramy Hernandez MD - 04/22/2017 EXAM: MR Right Lower Extremity Without Intravenous Contrast, Foot EXAM DATE/TIME: 04/20/2017 4:15 PM CLINICAL HISTORY: 51 years old, female; Pain in right foot; Foot and heel; Patient HX:Pain right heel pain x 6 months abnormal xrays per pt- heel spur noted per ptno surgeries on right foot no HX of cancer TECHNIQUE: Multiplanar magnetic resonance images of the right foot withoutintravenous contrast. COMPARISON: No relevant prior studies available. FINDINGS: There is increased signal in the subcutaneous soft tissues of the heelpad. Increased signal in the proximal plantar aponeurosis involving the medialcord greater than the lateral cord, increased signal in the flexor digitorumbrevis and abductor digiti quinti minimi muscles and there is subchondral marrowedema of the posterior inferior calcaneus and the moderate sized spur. Lower extremity hyperintense signal in the lower leg and foot. Tibiotalar joint effusion. Myotendinous strain of the soleus muscle. Achilles tendon insertionintact. Fluid and pre-calcaneal bursa. Evidence of mild tenosynovitis of the medial and lateral joint linetendons. Extensor and plantar flexor tendons appear to be intact. Medial and lateral joint line ligaments intact. Bony structures of the midfoot and forefoot appear intact. IMPRESSION: Plantar fasciitis with reactive subchondral marrow edema, heel pad edema, large spur and myositis of the flexor digitorum brevis and abductor digit the minimi muscles. Lower extremity edema. Tibiotalar joint effusion. Mild mild tenderness strain of the soleus. Mild tenosynovitis of the medial and lateral lateral joint line tendons. THIS DOCUMENT HAS BEEN ELECTRONICALLY SIGNED BY RAMY HERNANDEZ MD us Rick Hernández MD IMG MRI ORDERABLES Final Res ult documented in this encounter Visit Diagnoses Diagnosis Pain of right heel documented in this encounter Care Teams Application Support Lead Relationship Specialty Start Date End Date Salima Gonzáles DO [facility] [place] [address] PCP - General Family Medicine 02/21/17 documented as of this encounter
--- OUTSIDE RECORDS SUMMARY | 2024-04-06 21:56 | XMS_ITS | Encounter Summary ---
Author Organization [employer] Address [address] [place] [address] Care Team Providers Care Document Manager Name Role Phone Salima Gonzáles Primary Care Provider [phone] Encounter Details Date Type Department Care Team (Late st Contact Info) Description 10/09/2020 Transcribed Document [facility] [place] [facility] [place] [address] ProviderQuincy MD [address] [place] [address] [phone] Social History Tobacco Use Types Packs/Day Years Used Date Smoking Tobacco: Never Assessed Comments Unknown Sex and Gender Information Value Date Recorded Sex Assigned at Not on file Legal Sex Female 2:54 PM CDT Gender Identity Not on file Sexual Orientation Not on file documented as of this encounter Miscellaneous Notes * Cerner Conversion Note - Quincy Kate MD - 10/09/2020 3:11 PM CDT UM Authorization Entered On: 10/09/2020 15:12 EDT Performed On: 10/09/2020 15:11 EDT by PING HOFFMANN RN Primary Insurance Authorization Authorization and Policy Numbers : Insurance 1 Health Plan: [facility] MEDICARE REPL Policy Number: [id number] Authorization Number: Insurance Primary Name : [employer] MEDICARE REPL Policy Number: [id number] Authorization Status-Primary : Awaiting callback Reference Number-Primary : [id number] Authorized Service Begin Date-Primary : 10/03/2020 EDT Authorization Comments-Primary : Email sent to madelyn Mathew Authorization Comments-Primary : Comment 1: Clinicals faxed via [employer] for IP approval (DEISY LIRA RN 10/05/2020 14:13) Comment 2: Clinicals submitted via [employer] for IP approval (DEISY LIRA RN 10/04/2020 08:24) PING HOFFMANN RN - 10/09/2020 15:11 EDT Electronically signed by [place] Conversion Gravure Press Set Up Operator Cerner at 08/23/2022 10:52 AM CDT documented in this encounter Plan of Treatment Not on file documented as of this encounter Visit Diagnoses Not on filedocumented in this encounter Care Teams Document Manager Relationship Specialty Start Date End Date Salima Gonzáles, DO [address] [address] PCP - General Family Medicine 02/09/23 documented as of this encounter
--- OUTSIDE RECORDS SUMMARY | 2024-04-06 21:56 | XMS_ITS | Clinical Summary ---
Author Organization [facility] Address [address] [place] [address] Care Team Providers Care Tailman Name Role Phone Salima Gonzáles DO Primary Care Provider [phone] Social History Tobacco Use Types Packs/Day Years Used Date Smoking Tobacco: Never Assessed Comments Unknown Sex and Gender Information Value Date Recorded Sex Assigned at Not on file Legal Sex Female 2:54 PM CDT Gender Identity Not on file Sexual Orientation Not on file Plan of Treatment Health Maintenance Due Date Last Done Comments CT Colonography 1964 Colonoscopy 1964 Colorectal Cancer Screening 1964 FOBT/FIT 1964 Fit-DNA (Cologuard) 1964 Sigmoidoscopy 1964 Depression Screening (12+) 1976 Tobacco Cessation Counseling and Screening (12+) 1976 Pap Smear 1985 Breast Cancer Screening 2004 Shingles Vaccine (Zoster) (1 of 2) 2014 COVID-19 VACCINE (2023-2 5 season) 2024 02/23/2022, 01/26/2021, 06/09/2020, Additional history exists Influenza Vaccine (#1) 2024 01/27/2022, 2019 DTAP/TDAP/TD VACCINES (2 - T d or Tdap) 01/25/2028 01/24/2018 [facility] Care Teams Tailman Relationship Specialty Start Date End Date Salima Gonzáles, DO [address] [facility] [address] [place] [address] PCP - General Family Medicine 02/09/23
--- OUTSIDE RECORDS SUMMARY | 2024-04-06 21:56 | XMS_ITS | Encounter Summary ---
Author Organization [employer] Address [address] [place] [address] Care Team Providers Care Table Machine Operator Name Role Phone Salima Gonzáles Primary Care Provider [phone] Encounter Details Date Type Department Care Team (Late st Contact Info) Description 10/13/2020 Transcribed Document [facility] [place] [facility] [place] [address] ProviderQuincy MD [address] [place] [address] [phone] Social History Tobacco Use Types Packs/Day Years Used Date Smoking Tobacco: Never Assessed Comments Unknown Sex and Gender Information Value Date Recorded Sex Assigned at Not on file Legal Sex Female 2:54 PM CDT Gender Identity Not on file Sexual Orientation Not on file documented as of this encounter Miscellaneous Notes * Cerner Conversion Note - Quincy Kate MD - 10/13/2020 3:02 PM CDT UM Authorization Entered On: 10/13/2020 15:03 EDT Performed On: 10/13/2020 15:02 EDT by Katia Pratt, Agricultural Purchasing Agent Primary Insurance Authorization Authorization and Policy Numbers : Insurance 1 Health Plan: [employer] MEDICARE REPL Policy Number: [id number] Authorization Number: Insurance Primary Name : [facility] MEDICARE REPL Policy Number: [id number] Authorization Status-Primary : Denied Auth/Referral Contact Name-Primary : DC+ Reference Number-Primary : [id number] Authorized Service Begin Date-Primary : 10/03/2020 EDT Authorization Comments-Primary : Discharge date and summary faxed. Historical Authorization Comments-Primary : Comment 1: Email to David/Mary/MOSHE (JUSTEN HARTLEY, Rn-Utilization Review 10/13/2020 10:20) Comment 2: Rec fax from Sara 10/12/20 States admission has been denied. Fax to Jacque Tabor (TEMI LAMBERT, Print Controller 10/12/2020 14:42) Comment 3: Per Jinny remains pending (JACQUE HOFFMANN RN 10/12/2020 12:06) Comment 4: Faxed dc summary via [employer] (JACQUE HOFFMANN RN 10/11/2020 12:12) Comment 5: Remains pending per Availity (JACQUE HOFFMANN RN 10/11/2020 12:11) Comment 6: Email sent to jinny (JACQUE HOFFMANN RN 10/09/2020 15:11) Comment 7: Clinicals faxed via [employer] for IP approval (DEISY LIRA RN 10/05/2020 14:13) Comment 8: Clinicals submitted via [employer] for IP approval (DEISY LIRA RN 10/04/2020 08:24) Katia Pratt, Agricultural Purchasing Agent - 10/13/2020 15:02 EDT documented in this encounter Plan of Treatment Not on file documented as of this encounter Visit Diagnoses Not on filedocumented in this encounter Care Teams Table Machine Operator Relationship Specialty Start Date End Date Salima Gonzáles, 8 [facility] [address] [place] [address] PCP - General Family Medicine 02/09/23 documented as of this encounter
--- OUTSIDE RECORDS SUMMARY | 2024-04-06 21:56 | XMS_ITS | Encounter Summary ---
[facility] Organization [facility] Address [address] [id number] Care Team Providers Care Adhesive Bandage Machine Operator Name Role Phone Salima Gonzáles DO Primary Care Provider [phone] Encounter Details Date Type Department Care Team (Latest Contact Info) Description 05/06/2021 Travel Social History Tobacco Use Types Packs/Day Years [...] on file Sexual Orientation Not on file COVID-19 Exposure Response Date Recorded In the last month, have you been in contact with someone who was confirmed or suspected to have Coronavirus / COVID-19? No / Unsure 05/06/2021 11:44 AM EST documented as of this encounter Plan of Treatment Not on file documented as of this encounter Visit Diagnoses Not on filedocumented in this encounter Care Teams Adhesive Bandage Machine Operator Relationship Specialty Start Date End Date Salima Gonzáles DO [facility] [place] [address] PCP - General Family Medicine 02/21/17 documented as of this encounter
--- OUTSIDE RECORDS SUMMARY | 2024-04-06 21:56 | XMS_ITS | Encounter Summary ---
Author Organization [employer] Address [address] [place] [address] Care Team Providers Care Residential Treatment Counselor Name Role Phone Salima Gonzáles DO Primary Care Provider [phone] Encounter Details Date Type Department Care Team (Late st Contact Info) Description 10/04/2020 Transcribed Document [facility] [place] [address] [place] [address] ProviderQuincy MD [address] [place] [address] Social History Tobacco Use Types Packs/Day Years Used Date Smoking Tobacco: Never Assessed Comments Unknown Sex and Gender Information Value Date Recorded Sex Assigned at Not on file Legal Sex Female 2:54 PM CDT Gender Identity Not on file Sexual Orientation Not on file documented as of this encounter Miscellaneous Notes * Cerner Conversion Note - Quincy ProviderMD - 10/04/2020 5:00 PM CDT Chart Check - Review Order Profile Entered On: 10/04/2020 16:48 EDT Performed On: 10/04/2020 17:00 EDT by Hoa Coleman RN Chart Check Powerplans Initiated/Discontinued as Appropriate : Yes All Active Orders Reviewed : Yes Hoa Coleman RN - 10/04/2020 16:48 EDT documented in this encounter Plan of Treatment Not on file documented as of this encounter Visit Diagnoses Not on filedocumented in this encounter Care Teams Residential Treatment Counselor Relationship Specialty Start Date End Date Salima Gonzáles DO [address] [id number] PCP - General Family Medicine 02/09/23 documented as of this encounter
--- OUTSIDE RECORDS SUMMARY | 2024-04-06 21:56 | XMS_ITS | Encounter Summary ---
Author Organization [employer] Address [address] [place] [address] Care Team Providers Care Bench Assembler Operator Name Role Phone Salima Gonzáles Primary Care Provider [phone] Encounter Details Date Type Department Care Team (Late st Contact Info) Description 10/04/2020 Transcribed Document [facility] [place] Family Medicine [address] [place] [address] ProviderQuincy MD [address] [place] [address] Social History Tobacco Use Types Packs/Day [...] Kate MD - 10/04/2020 1:16 PM CDT [facility] Main OR PACU Summary Primary Physician: ANNABEL ZAMBRANO MD-URO Finalized Date/Time: 10/04/20 15:07:54 Pt. Name: AMBIKA PIERRE./Sex: 1965 Female Med Rec #: [id number] Physician: SUREKHA ARGUELLES MD Financial #: [id number] Pt. Type: I Room/Bed: [facility] Admit/Disch: 10/03/20 18:06:00 - Institution: [facility] Main OR PACU I Case Times Entry 1 In PACU I 10/04/20 13:58:00 Ready for PACU 10/04/20 14:40:00 Discharge Discharge from PACU 10/04/20 14:40:00 I Last Modified By: ESPERANZA LAWRENCE RN 10/04/20 15:07:45 Finalized By: ESPERANZA LAWRENCE, RN Document Signatures Signed By: ESPERANZA LAWRENCE RN 10/04/20 15:07 documented in this encounter Plan of Treatment Not on file documented as of this encounter Visit Diagnoses Not on filedocumented in this encounter Care Teams Bench Assembler Operator Relationship Specialty Start Date End Date Salima Gonzáles, [address] [address] PCP - General Family Medicine 02/09/23 documented as of this encounter
--- OUTSIDE RECORDS SUMMARY | 2024-04-06 21:56 | XMS_ITS | Encounter Summary ---
Author Organization [facility] Address [address] [id number] Care Team Providers Care Fire Official Name Role Phone Salima Gonzáles Primary Care Provider [phone] Reason for Visit * Reason Comments Follow-up Right foot - 3 month s after MRI Encounter Details Date Type Department Care Team (Late st Contact Info) Description 05/14/2017 3:20 PM EST Office Visit [facility] [address] [place] [address] Rick Hernández MD [address] [facility] [address] [place] [address] Pain of right heel (Primary Dx); Morbid obesity with BMI of 45.0-49.9, adult Social History Tobacco Use Types Packs/Day Years [...] Sign Reading Time Taken Comments Blood Pressure 150/88 05/14/2017 3:21 PM EST Pulse 76 05/14/2017 3:21 PM EST Temperature - - Respiratory Rate - - Oxygen Saturation - - Inhaled Oxygen Concentration - - Weight 120 kg (264 lb 5.3 oz) 05/14/2017 3:21 PM EST Height 158 cm (5' 2.21 ) 05/14/2017 3:21 PM EST Body Mass Index 48.03 05/14/2017 3:21 PM EST documented in this encounter Progress Notes * iRck Hernández MD - 05/14/2017 3:20 PM EST Images from the original note were not included. [facility] [place] Subjective Chief Complaint Patient presents with ??? Follow-up Right foot - 3 months after MRI HPI Neetu Doherty is a 51 y.o. female. She is not any better. She had the heels for surgery by Dr. Doty a few years ago. She wants heel spur surgery. She is here after the MRI follow-up Past Medical History: Diagnosis Date ??? Diabetes ??? Hypertension Past Surgical History: Procedure Laterality Date ??? SECTION ??? CYST REMOVAL ??? GALLBLADDER SURGERY ??? GANGLION CYST EXCISION ??? GASTRIC BYPASS ??? HEEL SPUR SURGERY Left ??? HYSTERECTOMY ??? KIDNEY STONE SURGERY ??? KNEE SURGERY Bilateral ??? TONSILLECTOMY Family History Problem Relation Age of Onset ??? Hypertension Mother ??? Diabetes Mother ??? Hypertension Father ??? Diabetes Father Social History Social History ??? Marital status: Spouse name: N/A ??? Number of children: N/A ??? Years of education: N/A Occupational History ??? Not on file. Social History Main Topics ??? Smoking status: Current Every Day Smoker Packs/day: 0.50 Types: Cigarettes ??? Smokeless tobacco: Never Used ??? Alcohol use No ??? Drug use: No ??? Sexual activity: Defer Other Topics Concern ??? Not on file Social History Narrative Current Outpatient Prescriptions on File Prior to Visit Medication Sig Dispense Refill ??? albuterol (PROVENTIL) (2.5 MG/3ML) 0.083% nebulizer solution Take 2.5 mg by nebulization Every 4 (Four) Hours As Needed for Wheezing. ??? etanercept (ENBREL) 50 MG/ML solution prefilled syringe injection Inject 50 mg under the skin 2(Two) Times a Week. ??? FLUoxetine (PROZAC) 40 MG capsule Take 40 mg by mouth Daily. ??? fluticasone (VERAMYST) 27.5 MCG/SPRAY nasal spray 2 sprays into each nostril Daily. ??? levothyroxine (SYNTHROID) 125 MCG tablet Take 125 mcg by mouth Daily. ??? loratadine (CLARITIN) 10 MG tablet Take 10 mg by mouth Daily. ??? montelukast (SINGULAIR) 10 MG tablet Take 10 mg by mouth Every Night. ??? olmesartan (BENICAR) 20 MG tablet Take 20 mg by mouth Daily. ??? pregabalin (LYRICA) 150 MG capsule Take 150 mg by mouth 2 (Two) Times a Day. ??? simvastatin (ZOCOR) 10 MG tablet Take 10 mg by mouth Every Night. No current facility-administered medications on file prior to visit. Allergies Allergen Reactions ??? Morphine And Related Hallucinations The following portions of the patient's history were reviewed and updated as appropriate: allergies, current medications, past family history, past medical history, past social history, past surgicalhistory and problem list. Review of Systems Constitutional: Negative. HENT: Negative. Eyes: Negative. Respiratory: Negative. Cardiovascular: Negative. Gastrointestinal: Negative. Endocrine: Negative. Genitourinary: Negative. Musculoskeletal: Positive for arthralgias (Right foot pain). Skin: Negative. Allergic/Immunologic: Negative. Neurological: Negative. Hematological: Negative. Psychiatric/Behavioral: Negative. Objective Physical Exam BP 150/88 Pulse 76 Ht 158 cm (62.21 ) Wt 120 kg (264 lb 5.3 oz) BMI 48.03 kg/m2 Body mass index is 48.03 kg/(m^2). GENERAL APPEARANCE: awake, alert & oriented x 3, in no acute distress and well developed, well nourished PSYCH: normal mood andaffect LUNGS: breathing nonlabored, no wheezing EYES: sclera anicteric, pupils equal CARDIOVASCULAR: palpable pulses dorsalis pedis, palpable posterior tibial bilaterally. Capillary refill less than 2 seconds INTEGUMENTARY: skin intact, no clubbing, cyanosis NEUROLOGIC: Normal gait and balance Ortho Exam Peripheral Vascular: Lower Extremity: Inspection: Right--rapid capillary refill Palpation: Dorsalis pedis pulse: Right--normal Neurologic Sensory: Light Touch: Right foot: Dorsal intact and plantar intact Overall Assessment of Muscle Strength and Tone: Lower Extremities: Right: Tibialis anterior--5/5 Gastroc soleus--5/5 EHL--5/5 FHL--5/5 Musculoskeletal Lower Extremity Ankle/Foot: Inspection and Palpation: Right: Tenderness:none Swelling:none Effusion: None Crepitus: None ROM: Right: Plantarflexion--50 Dorsiflexion--20 Inversion--10 Eversion--10 Instability: Right: Anterior drawer test--negative Squeeze test--negative Talar tilt test--negative Imaging/Studies Imaging Results (last 24 hours) No results found for the last 24 hours. I reviewed the MRI which shows plantar fasciitis and tendinitis no stress fracture Assessment/Plan Neetu was seen today for follow-up. Diagnoses and all orders for this visit: Pain of right heel Morbid obesity with BMI of 45.0-49.9, adult I recommend weight loss heel stretching boot as needed and follow-up when necessary she is welcome to see a inspector fuel hose but I did not recommend heel spur surgery Medical Decision Making Management Options : [id number] medicine Data/Risk: radiology tests and independent visualization of imaging, lab tests, or EMG/NCV Rick Hernández MD 05/14/17 4:20 PM documented in this encounter Plan of Treatment Not on file documented as of this encounter Visit Diagnoses Diagnosis Pain of right heel- Primary Morbid obesity with BMI of 45.0-49.9, adult documented in this encounter Care Teams Fire Official Relationship Specialty Start Date End Date Salima Gonzáles DO [address] [place] [address] PCP - General Family Medicine 02/21/17 documented as of this encounter
--- OUTSIDE RECORDS SUMMARY | 2024-04-06 21:56 | XMS_ITS | Encounter Summary ---
Author Organization [employer] Address [address] [place] [address] Care Team Providers Care Car Unloader Helper Name Role Phone Salima Gonzáles Primary Care Provider [phone] Encounter Details Date Type Department Care Team (Late st Contact Info) Description 10/05/2020 Transcribed Document [facility] [place] [address] [place] [address] ProviderQuincy MD [address] [place] [address] Social History Tobacco Use Types Packs/Day Years Used Date Smoking Tobacco: Never Assessed Comments Unknown Sex and Gender Information Value Date Recorded Sex Assigned at Not on file Legal Sex Female 2:54 PM CDT Gender Identity Not on file Sexual Orientation Not on file documented as of this encounter Miscellaneous Notes * Cerner Conversion Note - Quincy Kate MD - 10/05/2020 2:02 PM CDT Final Discharge Planning Entered On: 10/05/2020 14:02 EDT Performed On: 10/05/2020 14:02 EDT by EVONNE GABRIEL RN-Community Center Worker Final Discharge Planning Discharge Arrangements : Patient Post-Acute Information Patient Name: AMBIKA PIERRE Gender: Female : 63 Age: 54 Years No Post-Acute Placement(s) Listed No Post-Acute Service(s) Listed No [place] Referral(s) Listed Transportation Needs : Family/Friend Follow Up Appointment Scheduled : Yes Is Patient High/Moderate Readmission Risk? : No Discharge To Care Management : Home/Residential/Intermediate or Self Care -01 EVONNE GABRIEL, RN-Community Center Worker - 10/05/2020 14:02 EDT Electronically signed by [facility] Conversion Signal Helper Cerner at 08/23/2022 11:08 AM CDT documented in this encounter Plan of Treatment Not on file documented as of this encounter Visit Diagnoses Not on filedocumented in this encounter Care Teams Car Unloader Helper Relationship Specialty Start Date End Date Salima Gonzáles, [facility] [address] [place] [address] PCP - General Family Medicine 02/09/23 documented as of this encounter
--- OUTSIDE RECORDS SUMMARY | 2024-04-06 21:56 | XMS_ITS | Encounter Summary ---
[facility] Address [address] [id number] Care Team Providers Care Baccarat Dealer Name Role Phone Salima Gonzáles DO Primary Care Provider [phone] Reason for Referral * Diagnostic Imaging (Routine) - Closed Specialty Diagnoses / Procedures Referred By Josep banuelos Referred To Contact Radiology Diagnoses Pain of right heel Procedures MRI Foot Right Without Contrast Rick Hernández MD [facility] [address] [place] [address] Phone: tel: fax: [address] [address] Phone: tel: Referral ID Status Reason Start Date Expiration Date Visits Re quested Visits Authorized [id number] Closed 02/21/2017 04/21/2017 1 1 Reason for Visit * Reason Comments Pain Right heel * Consultation (Routine) - Closed Specialty Diagnoses / Procedures Referred By Contac t Referred To Contact Orthopedic Surgery Diagnoses Heel spur, right Referring, [place] [address] Rick Hernández MD [address] [place] [address] [place] [address] Phone: tel: fax: Referral ID Status Reason Start Date Expiration Date Visits Re quested Visits Authorized [id number] Closed 01/22/2017 01/22/2018 1 1 Encounter Details Date Type Department Care Team (Late st Contact Info) Description 02/21/2017 9:40 AM EDT Office Visit [facility]TH[facility]ED[facility] & SPORTS MEDICINE [address] [facility] [address] [id number] Rick Hernández MD [address] [facility] [address] [place] [address] Pain of right heel (Primary Dx) Social History Tobacco Use Types Packs/Day Years Used Date Smoking Tobacco: Every Day Cigarettes Smokeless Tobacco: Never Alcohol Use Standard Drinks/Week Comments No 0 (1 standard drink = 0.6 oz pur e alcohol) Comments Unknown Sex and Gender Information Value Date Recorded Sex Assigned at Not on file Legal Sex Female 6:41 PM EDT Gender Identity Not on file Sexual Orientation Not on file documented as of this encounter Last Filed Vital Signs Vital Sign Reading Time Taken Comments Blood Pressure 168/96 02/21/2017 9:40 AM EDT Pulse 84 02/21/2017 9:40 AM EDT Temperature - - Respiratory Rate - - Oxygen Saturation - - Inhaled Oxygen Concentration - - Weight 121 kg (267 lb) 02/21/2017 9:40 AM EDT Height 158 cm (5' 2.21 ) 02/21/2017 9:40 AM EDT Body Mass Index 48.51 02/21/2017 9:40 AM EDT documented in this encounter Progress Notes * Rick Hernández MD - 02/21/2017 9:40 AM EDT Images from the original note were not included. [facility] [place] Note Subjective Chief Complaint Patient presents with ??? Right Foot - Pain Right heel HPI Neetu OZUNA is a 51 y.o. female. She has significant right heel pain. Pain is 7 out of 10.Throbbing stabbing and shooting. She's tried bracing and anti-inflammatories. His collar for 6 months. It is worse with walking driving move her foot. Dr. Pemberton did a left heel spur removal and [place] a few years ago with great relief. Past Medical History: Diagnosis Date ??? Diabetes [...] ??? Not on file Social History Narrative ??? No narrative on file No current outpatient prescriptions on file prior to visit. No current facility-administered medications on file prior to visit. Allergies Allergen Reactions ??? Morphine And Related Hallucinations The following portions of the patient's history were reviewed and updated as appropriate: allergies, current medications, past family history, past medical history, past social history, past surgicalhistory and problem list. Review of Systems Constitutional: Negative. HENT: Positive for congestion, ear pain and sinus pressure. Eyes: Negative. Respiratory: Negative. Cardiovascular: Negative. Gastrointestinal: Negative. Endocrine: Positive for cold intolerance and heat intolerance. Genitourinary: Negative. Musculoskeletal: Negative. Skin: Negative. Allergic/Immunologic: Positive for environmental allergies. Neurological: Positive for tremors and headaches. Hematological: Bruises/bleeds easily. Psychiatric/Behavioral: Negative. Objective Physical Exam BP 168/96 Pulse 84 Ht 62.21 (158 cm) Wt 267 lb (121 kg) BMI 48.51 kg/m2 Body mass index is 48.51 kg/(m^2). GENERAL APPEARANCE: awake, alert & oriented [...] Tone: Lower Extremities: Right: Tibialis anterior--5/5 Gastroc soleus--09/08 EHL--09/08 FHL--09/08 Musculoskeletal Lower Extremity Ankle/Foot: Inspection and Palpation: Right: Tenderness: Calcaneus with positive calcaneus squeeze test Swelling:none Effusion: None Crepitus: None ROM: Right: Plantarflexion--50 Dorsiflexion--20 Inversion--10 Eversion--10 Instability: Right: Anterior drawer test--negative Squeeze test--negative Talar tilt test--negative Imaging/Studies Imaging Results (last 24 hours) No results found for the last 24 hours. I reviewed x-rays which show a plantar calcaneal spur Assessment/Plan Neetu was seen today for pain. Diagnoses and all orders for this visit: Pain of right heel - MRI Foot Right Without Contrast; Future Patient will follow-up after MRI of the foot and will be treated with anti- inflammatories and a boot Medical Decision Making Management Options : [id number] medicine Data/Risk: radiology tests and independent visualization of imaging, lab tests, or EMG/NCV Rick Hernández MD 02/21/17 10:06 AM documented in this encounter Plan of Treatment Not on file documented as of this encounter Results * MRI Foot Right [...] DOCUMENT HAS BEEN ELECTRONICALLY SIGNED BY RAMY LEOS MD Narrative 04/22/2017 9:30 AM EST EXAM: ??MR Right [...] and forefoot appear intact. Procedure Note Ramy Leos MD - 04/22/2017 EXAM: MR Right Lower [...] DOCUMENT HAS BEEN ELECTRONICALLY SIGNED BY RAMY LEOS MD us Rick Hernández MD IMG MRI ORDERABLES Final Res ult documented in this encounter Visit Diagnoses Diagnosis Pain of right heel- Primary Pain of right heel documented in this encounter Care Teams Baccarat Dealer Relationship Specialty Start Date End Date Salima Gonzáles DO [address] [place] [address] PCP - General Family Medicine 02/21/17 documented as of this encounter
--- OUTSIDE RECORDS SUMMARY | 2024-04-06 21:56 | XMS_ITS | Encounter Summary ---
Author Organization [employer] Address [address] [place] [address] Care Team Providers Care Spray Gun Repairer Name Role Phone Salima Gonzáles DO Primary Care Provider [phone] Encounter Details Date Type Department Care Team (Late st Contact Info) Description 10/06/2020 Transcribed Document [facility] [place] [address] [place] [address] ProviderQuincy MD [address] [place] [id number] Social History Tobacco Use Types Packs/Day Years Used Date Smoking Tobacco: Never Assessed Comments Unknown Sex and Gender Information Value Date Recorded Sex Assigned at Not on file Legal Sex Female 2:54 PM CDT Gender Identity Not on file Sexual Orientation Not on file documented as of this encounter Miscellaneous Notes * Cerner Conversion Note - Quincy ProviderMD - 10/06/2020 11:44 AM CDT Care Management Assessment/Plan Entered On: 10/06/2020 11:45 EDT Performed On: 10/06/2020 11:44 EDT by Jacque Ledezma SCHEDULER Care Management Note Anticipated Discharge Date : 10/05/2020 0:00 EDT Documentation Status Complete : Yes Jacque Ledezma SCHEDULER - 10/06/2020 11:44 EDT Discharge Planning Details Persons Assisting Patient at Home : Alone Transportation Needs : Family/Friend Follow-up Appointments Made #1 : Dr. Salima Gonzáles [facility] Follow-up Appointment Date #1 : 10/19/2020 11:00 EDT Contact Phone Number #1 : [phone] Follow-up Appointments Made #2 : [facility] Follow-up Appointment Date #2 : 01/06/2021 13:30 EDT Contact Phone Number #2 : [phone] Jacque Ledezma, STUDENT DEVELOPMENT COORDINATOR - 10/06/2020 11:44 EDT Electronically signed by [facility] Conversion Cone Picker Cerner at 08/23/2022 10:59 AM CDT documented in this encounter Plan of Treatment Not on file documented as of this encounter Visit Diagnoses Not on filedocumented in this encounter Care Teams Spray Gun Repairer Relationship Specialty Start Date End Date Salima Gonzáles, 8 [facility] [address] [place] [address] PCP - General Family Medicine 02/09/23 documented as of this encounter
--- OUTSIDE RECORDS SUMMARY | 2024-04-06 21:56 | XMS_ITS | Encounter Summary ---
Author Organization [employer] Address [address] [place] [address] Care Team Providers Care Assembler Hydraulic Backhoe Name Role Phone Unavailable Primary Care Provider Unavailabl e Encounter Details Date Type Department Care Team (Late st Contact Info) Description 10/04/2020 Historic Encounter [address] [address] ProviderScarlet Historical Social History Tobacco [...] Date/Time Associated Diagnosis Comments GLUCOSE-POC Routine 10/04/2020 4:12 PM EDT documented in this encounter Results * (ABNORMAL) Glucose, Point of Care (10/04/2020 4:12 PM EDT) Glucose POC2 124(H) 70 - 110 mg/dL 10/04/2020 8:12 PM EDT [facility] Optometry Teacher [id number] 10/04/2020 8:12 PM EDT [facility] Device SN [id number] 10/04/2020 8:12 PM EDT [facility] Device Comment1 Notified Nurse RBV 10/04/2020 8:12 PM EDT [facility] Blood 10/04/2020 4:12 PM EDT 10/04/2020 9:15 PM EDT [facility] Historical Provider POINT OF CARE TEST MARIMAR BRISCOE Final Result Performing Organization Address City/State/[facility] Co de Phone Number [facility] [address] [place] [address] documented in this encounter Visit Diagnoses Not on filedocumented in this encounter
--- OUTSIDE RECORDS SUMMARY | 2024-04-06 21:56 | XMS_ITS | Encounter Summary ---
Author Organization [employer] Address [address] [place] [address] Care Team Providers Care Heat Treater Head Name Role Phone Salima Gonzáles DO Primary Care Provider [phone] Encounter Details Date Type Department Care Team (Late st Contact Info) Description 10/06/2020 Transcribed Document [facility] [place] [address] [place] [address] ProviderQuincy MD [address] [place] [address] [phone] Social History Tobacco Use Types Packs/Day Years Used Date Smoking Tobacco: Never Assessed Comments Unknown Sex and Gender Information Value Date Recorded Sex Assigned at Not on file Legal Sex Female 2:54 PM CDT Gender Identity Not on file Sexual Orientation Not on file documented as of this encounter Miscellaneous Notes * Cerner Conversion Note - Quincy Kate MD - 10/06/2020 7:03 PM CDT Patient Resource Center Entered On: 10/06/2020 19:06 EDT Performed On: 10/06/2020 19:03 EDT by Jacque Ledezma SCHEDULER Patient Resource Center Provider Status : EST Other Established Provider Name : Dr[facility] Patient Phone Number : [phone] Patient Insurance Type : Medicare Source of Referral : Case management Location of Patient : Case management referral Primary Care Scheduled : Yes Primary Care Scheduled Type : Non CMG Primary Care Provider Name : Dr. [facility] Primary Care Appointment Date/Time : 10/19/2020 11:00 EDT Specialty Care Scheduled : Yes Specialty Type Scheduled2 : Urology Urology Provider Name : [facility] Urology Appointment Date/Timie : 01/06/2021 13:30 EDT Qualify for Diabetes and/or Nutrition Referral : No Wound Care Appointment Made : No Why Patient Visited ED- Specialty spent : Other How Patient Arrived at ED : Other Primary Language : Tunisian Patient Resource Center Comment : Scheduled hosptial f/u appts with PCP & Urology. Advised pt of appt information via telephone. Mailed appt reminders. Faxed H&P to PCP's office. Emailed appt information to case monitor. Follow Up Needed : No Jacque Ledezma, YOUTH COURT JUDGE - 10/06/2020 19:03 EDT documented in this encounter Plan of Treatment Not on file documented as of this encounter Visit Diagnoses Not on filedocumented in this encounter Care Teams Heat Treater Head Relationship Specialty Start Date End Date Salima Gonzáles DO [address] [facility] [address] [place] [address] PCP - General Family Medicine 02/09/23 documented as of this encounter
--- OUTSIDE RECORDS SUMMARY | 2024-04-06 21:56 | XMS_ITS | Encounter Summary ---
Author Organization [employer] Address [address] [place] [address] Care Team Providers Care Rv Detailer Name Role Phone Anujlizbet Salima Ybarra DO Primary Care Provider [phone] Encounter Details Date Type Department Care Team (Late st Contact Info) Description 10/05/2020 Transcribed Document [facility] [place] [facility] [place] [address] ProviderQuincy MD [address] [place] [address] [phone] Social History Tobacco Use Types Packs/Day Years Used Date Smoking Tobacco: Never Assessed Comments Unknown Sex and Gender Information Value Date Recorded Sex Assigned at Not on file Legal Sex Female 2:54 PM CDT Gender Identity Not on file Sexual Orientation Not on file documented as of this encounter Miscellaneous Notes * Cerner Conversion Note - Quincy ProviderMD - 10/05/2020 1:56 PM CDT Initial Discharge Planning Entered On: 10/05/2020 14:02 EDT Performed On: 10/05/2020 13:56 EDT by EVONNE GABRIEL, DIANE-Cat Cracker Operator Initial Assessment I Previously Documented Living Environment : No qualifying data available. Living Situation : Home Patient Lives With : Alone Is the Patient a Caregiver at Home? : No Emergency Contact #1 : Ambreen De Anda Emergency Contact #1 Emergency Contact #1 Relationship : daughter Emergency Contact #2 : Ray Aponte Emergency Contact #2 Emergency Contact #2 Relationship : father Enter Doctors Name : Salima Gonzáles Does Patient have PCP Listed? : Yes Legal Guardian : No Is Guardianship Needed : No EVONNE GABRIEL RN-Cat Cracker Operator - 10/05/2020 13:56 EDT Initial Assessment II Sensory and Motor Deficits : None Current Home Treatments and Equipment : Nebulizer Services and Community Resources : Home Health (Comment: Pt states that she has used a couple of HH agencies in the past after her knee replacement [EVONNE GABRIEL RN-Cat Cracker Operator - 10/05/2020 13:56 EDT] ) Services and Community Resources Addl Comments : Signature of Nayeli nath 8-9 years ago after knee replacement EVONNE GABRIEL RN-Cat Cracker Operator - 10/05/2020 13:56 EDT Discharge Needs I Anticipated Discharge Date : 10/05/2020 EDT Anticipated Discharge To, CM : Home independently Current Home Treatment/Equipment : Current Home Treatment/Equipment No qualifying data available. Post Acute/Home Treatments : None Documentation Status Complete : Yes EVONNE GABRIEL RN-Cat Cracker Operator - 10/05/2020 13:56 EDT Discharge Needs II Professional Skilled Services : Professional Skilled Services No qualifying data available. Needs Assistance with Transportation : No EVONNE GABRIEL RN-Cat Cracker Operator - 10/05/2020 13:56 EDT Narrative Note Narrative Note : Received from [facility] to here due to kidney stone. Urology consulted. Pt had ureteroscopy, laser lithotripsy with stent placement. Met with Pt at the bedside. Role of CM explained. Pt states that she is ADL independent, lives home alone. Plans are to return home when discharged. No needs antcipated/verbalized at this time. RRS is low @ 37, boost 5. CM will follow. EVONNE GABRIEL RN-Cat Cracker Operator - 10/05/2020 13:56 EDT documented in this encounter Plan of Treatment Not on file documented as of this encounter Visit Diagnoses Not on filedocumented in this encounter Care Teams Rv Detailer Relationship Specialty Start Date End Date Salima Gonzáles, DO [address] [facility] [address] [place] [address] PCP - General Family Medicine 02/09/23 documented as of this encounter
--- OUTSIDE RECORDS SUMMARY | 2024-04-06 21:56 | XMS_ITS | Encounter Summary ---
Author Organization [employer] Address [address] [place] [address] Care Team Providers Care Vessel Slag Worker Name Role Phone Unavailable Primary Care Provider Unavailabl e Encounter Details Date Type Department Care Team (Late st Contact Info) Description 10/05/2020 Historic Encounter [address] [address] ProviderScarlet Historical Social History Tobacco [...] Name Priority Date/Time Associated Diagnosis Comments CBC (HEMOGRAM ONLY) Routine 10/05/2020 6 :30 AM EDT documented in this encounter Results * (ABNORMAL) CBC (Hemogram only) (10/05/2020 6:30 AM EDT) WBC 6.7 4.5 - 10.5 K/uL 10/05/2020 11:37 AM EDT RBC 3.22(L) 3.93 - 5.22 Million/uL 10/05/2020 11:37 AM EDT Hgb 11.1(L) 11.2 - 15.7 g/dL 10/05/2020 11:37 AM EDT Hct 31.2(L) 34.1 - 44.9 % 10/05/2020 11:37 AM EDT MCV 96.9(H) 79.0 - 94.8 fL 10/05/2020 11:37 AM EDT MCH 34.5(H) 25.6 - 32.2 pg 10/05/2020 11:37 AM EDT MCHC 35.6 32.2 - 36.5 Gram/dL 10/05/2020 11:37 AM EDT RDW 13.2 11.7 - 14.9 % 10/05/2020 11:37 AM EDT Platelet Count 240 163 - 369 K/uL 10/05/2020 11:37 AM EDT MPV 10.7 9.4 - 12.4 fL 10/05/2020 11:37 AM EDT Slide Review No 10/05/2020 11:41 AM EDT Blood 10/05/2020 6:30 AM EDT 10/05/2020 11:22 AM EDT [facility] Historical Provider LAB BLOOD ORDERABLES Fi nal Result Performing Organization Address City/State/[facility] Co de Phone Number [facility] [address] [phone] documented in this encounter Visit Diagnoses Not on filedocumented in this encounter
--- OUTSIDE RECORDS SUMMARY | 2024-04-06 21:56 | XMS_ITS | Encounter Summary ---
Author Organization [employer] Address [address] [place] [address] Care Team Providers Care Home Health Clinical Liaison Name Role Phone Salima Gonzáles Primary Care Provider [phone] Encounter Details Date Type Department Care Team (Late st Contact Info) Description 10/04/2020 Transcribed Document [facility] [place] [address] [place] [address] ProviderQuincy MD [address] [place] [address] [phone] Social History Tobacco Use Types Packs/Day Years Used Date Smoking Tobacco: Never Assessed Comments Unknown Sex and Gender Information Value Date Recorded Sex Assigned at Not on file Legal Sex Female 2:54 PM CDT Gender Identity Not on file Sexual Orientation Not on file documented as of this encounter Miscellaneous Notes * Cerner Conversion Note - Quincy Kate MD - 10/04/2020 11:45 AM CDT DATE OF CONSULTATION: 10/04/2020 HISTORY: The patient is a 54-year-old female, who presents with acute onset of left flank pain with radiation to left side of the abdomen. The patient has a history of kidney stones. There is no gross hematuria or dysuria. She is voiding without any difficulty. She is having some nausea. CT scan shows an 8 mm stone at the left UPJ with mild hydronephrosis. The patient's pain is not controlled on oral analgesics. PAST HISTORY: Cholecystectomy, gastric bypass, hysterectomy, kidney stone removal, tonsillectomy, knee replacement. MEDICAL PROBLEMS: Hypertension, diabetes, sleep apnea, hypothyroidism, asthma. MEDICATIONS: Listed on the chart. DRUG ALLERGIES: Cefdinir. REVIEW OF SYSTEMS: HEENT: There is no headache or visual disturbances. RESPIRATORY: No shortness of breath. CARDIOVASCULAR: No chest pain. ABDOMEN: There is some nausea. PHYSICAL EXAMINATION: There is slight left CVA tenderness present. Abdomen is soft without masses or organomegaly. IMPRESSION: Left renal calculus. PLAN: Ureteroscopy with laser. /[id number] Gatito Menendez MD FP/AQ / FP / MODL /[id number] Electronically signed by [facility] Conversion Sales Account Leader Cerner at 08/23/2022 11:00 AM CDT documented in this encounter Plan of Treatment Not on file documented as of this encounter Visit Diagnoses Not on filedocumented in this encounter Care Teams Home Health Clinical Liaison Relationship Specialty Start Date End Date Salima Gonzáles, [address] [address] PCP - General Family Medicine 02/09/23 documented as of this encounter
--- OUTSIDE RECORDS SUMMARY | 2024-04-06 21:56 | XMS_ITS | Encounter Summary ---
Author Organization [employer] Address [address] [place] [address] Care Team Providers Care Lead Tank Mechanic Name Role Phone Unavailable Primary Care Provider Unavailabl e Encounter Details Date Type Department Care Team (Late st Contact Info) Description 10/04/2020 Historic Encounter [address] [address] ProviderScarlet Historical Social History Tobacco [...] Date/Time Associated Diagnosis Comments GLUCOSE-POC Routine 10/04/2020 8:31 PM EDT documented in this encounter Results * Glucose, Point of Care (10/04/2020 8:31 PM EDT) Glucose POC2 92 70 - 110 mg/dL 10/05/2020 12:[address] [facility] Tape Editor [id number] 10/05/2020 12:[address] [facility] Device SN [id number] 10/05/2020 12:[address] [facility] Device Comment1 Protocols Followed 10/05/2020 12:[address] [facility] Blood 10/04/2020 8:31 PM EDT 10/05/2020 2:31 AM EDT [facility] Historical Provider POINT OF CARE TEST ORDE LUIS FELIPE Final Result Performing Organization Address City/State/[facility] Co de Phone Number [facility] [address] [place] [address] documented in this encounter Visit Diagnoses Not on filedocumented in this encounter
--- OUTSIDE RECORDS SUMMARY | 2024-04-06 21:56 | XMS_ITS | Encounter Summary ---
Author Organization [employer] Address [address] [place] [address] Care Team Providers Care Frame Bander Name Role Phone Salima Gonzáles Primary Care Provider [phone] Encounter Details Date Type Department Care Team (Late st Contact Info) Description 10/13/2020 Transcribed Document [facility] [place] [facility] [place] [address] ProviderQuincy MD [address] [place] [address] [phone] Social History Tobacco Use Types Packs/Day Years Used Date Smoking Tobacco: Never Assessed Comments Unknown Sex and Gender Information Value Date Recorded Sex Assigned at Not on file Legal Sex Female 2:54 PM CDT Gender Identity Not on file Sexual Orientation Not on file documented as of this encounter Miscellaneous Notes * Cerner Conversion Note - Quincy Kate MD - 10/13/2020 10:20 AM CDT [facility] Authorization Entered On: 10/13/2020 10:20 EDT Performed On: 10/13/2020 10:20 EDT by JUSTEN HARTLEY Rn-Utilization Review Primary Insurance Authorization Authorization and Policy Numbers : Insurance 1 Health Plan: [facility] MEDIC[facility] REPL Policy Number: [id number] Authorization Number: Insurance Primary Name : [employer] MEDICARE REPL Policy Number: [id number] Authorization Status-Primary : Denied Reference Number-Primary : [id number] Authorized Service Begin Date-Primary : 10/03/2020 EDT Authorization Comments-Primary : Email to Hemalatha/MOSHE Historical Authorization Comments-Primary : Comment 1: Rec fax from [facility] 10/12/20 States admission has been denied. Fax to [facility] [facility] (TEMI LAMBERT, [employer] 10/12/2020 14:42) Comment 2: Per Madelyn remains pending (PING HOFFMANN RN 10/12/2020 12:06) Comment 3: Faxed dc summary via [employer] (PING HOFFMANN RN 10/11/2020 12:12) Comment 4: Remains pending per [employer] (PING HOFFMANN RN 10/11/2020 12:11) Comment 5: Email sent to madelyn (PING HOFFMANN RN 10/09/2020 15:11) Comment 6: Clinicals faxed via [employer] for IP approval (DEISY LIRA RN 10/05/2020 14:13) Comment 7: Clinicals submitted via [employer] for IP approval (DEISY LIRA RN 10/04/2020 08:24) JUSTEN HARTLEY Rn-Utilization Review - 10/13/2020 10:20 EDT documented in this encounter Plan of Treatment Not on file documented as of this encounter Visit Diagnoses Not on filedocumented in this encounter Care Teams Frame Bander Relationship Specialty Start Date End Date Salima Gonzáles, [address] [facility] [address] [place] [address] PCP - General Family Medicine 02/09/23 documented as of this encounter
--- OUTSIDE RECORDS SUMMARY | 2024-04-06 21:56 | XMS_ITS | Encounter Summary ---
Author Organization [employer] Address [address] [place] [address] Care Team Providers Care Door To Door Sales Representative Name Role Phone Salima Mi DO Primary Care Provider [phone] Encounter Details Date Type Department Care Team (Late st Contact Info) Description 10/05/2020 Transcribed Document [facility] [place] [address] [place] [address] ProviderQuincy MD [address] [place] [address] [phone] Social History Tobacco Use Types Packs/Day Years Used Date Smoking Tobacco: Never Assessed Comments Unknown Sex and Gender Information Value Date Recorded Sex Assigned at Not on file Legal Sex Female 2:54 PM CDT Gender Identity Not on file Sexual Orientation Not on file documented as of this encounter Miscellaneous Notes * Cerner Conversion Note - Quincy ProviderMD - 10/05/2020 2:33 PM CDT Patient: AMBIKA PIERRE Age: 54 Years Sex: Female : 1965 Admit Date 10/03/2020 18:06 Discharge Date No Discharge Date on Record Primary Care Provider SALIMA MI DO-[facility] Discharge Diagnosis COPD with asthma 10/05/2020 J44.9 ICD-10-CM Thyroid disease 10/05/2020 E07.9 ICD-10-CM Elevated LFTs 10/05/2020 R79.89 ICD-10-CM Diabetes mellitus 10/05/2020 E11.9 ICD-10-CM Psoriasis 10/05/2020 L40.9 ICD-10-CM Sinus congestion 10/05/2020 R09.81 ICD-10-CM Renal calculus, left 10/05/2020 N20.0 ICD-10-CM Kidney stone 10/05/2020 N20.0 ICD-10-CM Hydronephrosis with obstructing calculus 10/05/2020 N13.2 ICD-10-CM Procedures SN - Proc - Procedure: Ureteroscopy (10/04/20 13:43:04) Hospital Course Ms. Aponte is a 54 year old female with NIDD, asthma and COPD, continued tobacco use, history of kidney stones, obesity. She was transferred to our hospital from OSH on 10/03 for hydronephrosis and obstructing kidney stone. Patient underwent ureteroscopy, laser lithotripsy, stent placement on 10/04. The following day her pain has significantly improved. She has had issues with some urinary incontinence. Flomax was held. Postvoid residual is normal. Urology stated that this would improve over the next few days and cleared her for discharge home. She should remove stents on strings at home on 11/03 and follow-up in urology clinic in 3 months Vital Signs T: 36.6 ??C TMIN: 36.4 ??C TMAX: 37 ??C HR: 84(Monitored) RR: 16 BP: 124/85 SpO2: 98% Oxygen Settings (Last) Oxygen Therapy Mode: Room air (10/05/20 11:30:00) Oxygen Flow Rate: 6 Liter/Min (10/04/20 13:58:00) Physical Exam General: Alert, obese, no acute distress Neurologic: Moves all 4 extremities spontaneously, oriented X3, no focal deficits appreciated Eye: pupils equal, EOMI, normal conjunctiva HENT: Normocephalic, normal hearing, moist oral mucosa Neck: Supple, non-tender Lungs: diminished breath sounds, non-labored respiration, no crackles, no wheeze Heart: Normal rate, regular rhythm, no murmur, no edema Abdomen: Soft, non-tender, non-distended, normal bowel sounds Musculoskeletal: No obvious deformity, no tenderness Skin: warm, dry, no rashes or lesions Psychiatric: Cooperative, appropriate mood and affect Discharge Disposition Home Discharge Follow Up ANNABEL ZAMBRANO MD-URO - Within 3 months SALIMA MI, -FAM - Within 1 to 2 weeks Discharge Medications (15) Active Advair 250 Albuterol (Eqv-ProAir HFA) , Inhalation, Q6H Claritin doxycycline hyclate 50 mg oral capsule , Oral, Daily Enbrel Prefilled Syringe 50 mg/mL subcutaneous solution , SubCutaneous, TuSa FLUoxetine 40 mg, Oral, BID Januvia Linzess 72 mcg oral capsule , Oral, Daily losartan 100 mg oral tablet 100 mg = 1 Tab, Oral, Daily Lyrica simvastatin 10 mg oral tablet 10 mg = 1 Tab, Oral, At Bedtime Singulair 10 mg oral tablet , Oral, Daily Sudafed 30 mg oral tablet 30 mg = 1 Tab, PRN, Oral, Q6H Synthroid Wellbutrin SR 150 mg/12 hours oral tablet, extended release 150 mg = 1 Tab, Oral, BID Code Status Start: 10/03/20 18:34:00 EDT, Full Code, Continuous Order Consulting Physicians DONLADO DUFFY MD HADLEY, FRED P, MD-URO ANGELY, MD VERONICA-ANS Current Diet Order Diet, Adult - Ordered -- Start: 10/05/20 8:17:00 EDT, 60 gm carbs:1228-2753 josue, GI Soft / Low Residue / Low Fiber Diet, Isolation: Standard Precautions, Instructions: Diabetic Diet Patient Discharge Summary Orders Discharge Activity: Discharge Activity: Activity as tolerated Diet: Discharge Diet: Resume usual diet as tolerated Pending Labs Ordered Platelet Count Specimen Type: Blood, Routine collect, 10/05/20 18:34:00 EDT, Q48H, Lab Collect Time Spent on Discharge >35 min was spent on discharging patient including time spent discussing plan with patient, case management, and nursing staff. documented in this encounter Plan of Treatment Not on file documented as of this encounter Visit Diagnoses Not on filedocumented in this encounter Care Teams Door To Door Sales Representative Relationship Specialty Start Date End Date [facility]ima Mi DO [facility] [address] [place] [address] PCP - General Family Medicine 02/09/23 documented as of this encounter
--- OUTSIDE RECORDS SUMMARY | 2024-04-06 21:56 | XMS_ITS | Encounter Summary ---
Author Organization [employer] Address [address] [place] [address] Care Team Providers [employer] Sales Consultant Name Role Phone Salima Gonzáles Primary Care Provider [phone] Encounter Details Date Type Department Care Team (Late st Contact Info) Description 10/04/2020 Transcribed Document [facility] [place] Family Medicine [address] [place] [id number] ProviderQuincy MD [address] [place] [address] [id number] Social History Tobacco Use Types Packs/Day Years Used Date Smoking Tobacco: Never Assessed Comments Unknown Sex and Gender Information Value Date Recorded Sex Assigned at Not on file Legal Sex Female 2:54 PM CDT Gender Identity Not on file Sexual Orientation Not on file documented as of this encounter Miscellaneous Notes * [employer]ner Conversion Note - Quincy Kate MD - 10/04/2020 9:47 AM CDT Patient: AMBIKA PIERRE Age: 54 Years Sex: Female : 1965 Subjective Patient says that her pain is currently controlled. However, she is now having issues with sinus pressure and congestion. She says that when this happens planning that helps is Sudafed. She is requesting that I prescribe this while she is here. She has been afebrile, no leukocytosis. Her breathing is okay, breathing treatments are helping. Says that she has noticed blood in her urine this morning. Vital Signs T: 36.6 ??C TMIN: 36.6 ??C TMAX: 36.9 ??C HR: 61(Monitored) RR: 16 BP: 116/79 SpO2: 94% HT: 154.94 cm WT: 118.18 kg BMI: 49.2 Oxygen Settings (Last) Oxygen Therapy Mode: Room air (10/04/20 06:15:00) Intake & Output Totals Last 24 Hours (7a-7a) Input Total: 760.2 mL Output Total: 0 mL Balance: 760.2 mL Physical Exam General: Alert, well nourished, diaphoretic Neurologic: Moves all 4 extremities spontaneously, oriented X3, no focal deficits appreciated HENT: Normocephalic, normal hearing, moist oral mucosa Lungs: Clear to auscultation, non-labored respiration, no crackles, mild expiratory wheeze Heart: Normal rate, regular rhythm, no murmur, no edema Abdomen: Soft, suprapubic mildly TTP non-distended, normal bowel sounds Assessment/Plan #Obstructing left kidney stone IVF, analgesics, antiemetics as needed N.p.o. currently, urology consultation pending Tamsulosin #Djh-lkuflrf-guioqftsi diabetes Hold home medications Cover with SSI #Asthma/COPD, not in exacerbation DuoNebs as needed Singulair #Continued tobacco use Strongly encouraged cessation #Obesity Complicating all aspects of care Recommend weight loss #Anxiety/depression Duloxetine, Wellbutrin #Hypothyroidism Synthroid #Hypertension Losartan #Psoriasis Takes Enbrel twice a week #Elevated LFTs Unclear etiology, no history of hepatitis or cirrhosis Trending down #Sinus congestion Sudafed Disposition: Awaiting evaluation from Urology VTE Prophylaxis - Medical Heparin 5,000 Units, SubCutaneous, Inj, Q8HInt, Routine, Start 10/03/20 20:00:00 EDT, 10/03/20 19:48:00 EDT (TIM MCCORMICK) Medications acetaminophen-HYDROcodone 325 mg-5 mg oral tablet, 1 Tab, Oral, Q4H, PRN atorvastatin, 5 mg= 0.5 Tab, Oral, At Bedtime Dulcolax Laxative, 5 mg= 1 Tab, Oral, Daily, PRN DULoxetine, 40 mg= 2 Cap, Oral, BID DuoNeb 0.5 mg-2.5 mg/3 mL inhalation solution, 3 mL, Nebulized Inhalation , RT_Q6H, PRN heparin, 5000 Units= 1 mL, SubCutaneous, Q8HInt HYDROmorphone, 0.2 mg= 0.2 mL, IV Push, Q4H, PRN insulin regular greater than 101 kg, greater than 101 kg scale, SubCutaneous, Q6H linzess 72mcg, 1 Cap, Oral, Daily losartan, 100 mg= 2 Tab, Oral, Daily Lyrica, 150 mg= 2 Cap, Oral, BID melatonin, 3 mg= 1 Tab, Oral, At Bedtime, PRN MiraLax, 17 Gram= 1 Packet, Oral, Daily, PRN Pepcid, 20 mg= 1 Tab, Oral, Q12H Phenergan, 6.25 mg= 0.25 mL, IntraVENous, Q6H, PRN Roxicodone, 5 mg= 1 Tab, Oral, Q4H, PRN Singulair, 10 mg= 1 Tab, Oral, Daily Sodium Chloride 0.9% intravenous solution 1,000 mL, 1000 mL, IntraVENous Sudafed, 60 mg= 2 Tab, Oral, Q6H Synthroid, 125 mcg= 1 Tab, Oral, Daily tamsulosin, 0.4 mg= 1 Cap, Oral, Daily Toradol, 30 mg= 1 mL, IV Push, Q6H, PRN Tylenol, 650 mg= 2 Tab, Oral, Q4H, PRN Tylenol, 650 mg= 2 Tab, Oral, Q4H, PRN Wellbutrin SR, 150 mg= 1 Tab, Oral, BID Zofran, 4 mg= 2 mL, IV Push, Q4H, PRN Lab Results Test Name Test Result Date/Time Sodium Level 143 mmol/L 10/04/2020 06:54 EDT Sodium Level 140 mmol/L 10/03/2020 19:07 EDT Potassium Level 3.8 mmol/L 10/04/2020 06:54 EDT Potassium Level 4.2 mmol/L 10/03/2020 19:07 EDT Chloride Level 108 mmol/L 10/04/2020 06:54 EDT Chloride Level 106 mmol/L 10/03/2020 19:07 EDT Carbon Dioxide Level 30 mmol/L 10/04/2020 06:54 EDT Carbon Dioxide Level 30 mmol/L 10/03/2020 19:07 EDT Anion Gap 9 10/04/2020 06:54 EDT Anion Gap 8 (Low) 10/03/2020 19:07 EDT Glucose Level 97 mg/dL 10/04/2020 06:54 EDT Glucose Level 79 mg/dL 10/03/2020 19:07 EDT Blood Urea Nitrogen 18 mg/dL 10/04/2020 06:54 EDT Blood Urea Nitrogen 20 mg/dL 10/03/2020 19:07 EDT Creatinine Level 0.80 mg/dL 10/04/2020 06:54 EDT Creatinine Level 0.80 mg/dL 10/03/2020 19:07 EDT eGFR >60 mL/min/1.73m2 10/04/2020 06:54 EDT eGFR >60 mL/min/1.73m2 10/03/2020 19:07 EDT eGFR NonAfrican >60 mL/min/1.73m2 10/04/2020 06:54 EDT eGFR NonAfrican >60 mL/min/1.73m2 10/03/2020 19:07 EDT Bun/Creatinine 22.5 (High) 10/04/2020 06:54 EDT Bun/Creatinine 25.0 (High) 10/03/2020 19:07 EDT Calcium Level 8.4 mg/dL 10/04/2020 06:54 EDT Calcium Level 8.8 mg/dL 10/03/2020 19:07 EDT Protein Total 6.0 Gram/dL (Low) 10/04/2020 06:54 EDT Protein Total 6.9 Gram/dL 10/03/2020 19:07 EDT Albumin Level 2.9 Gram/dL (Low) 10/04/2020 06:54 EDT Albumin Level 3.3 Gram/dL (Low) 10/03/2020 19:07 EDT Globulin 3.1 Gram/dL 10/04/2020 06:54 EDT Globulin 3.6 Gram/dL 10/03/2020 19:07 EDT A/G Ratio 0.9 (Low) 10/04/2020 06:54 EDT A/G Ratio 0.9 (Low) 10/03/2020 19:07 EDT Bilirubin Total 0.8 mg/dL 10/04/2020 06:54 EDT Bilirubin Total 0.7 mg/dL 10/03/2020 19:07 EDT Alk Phos 87 Units/Liter 10/04/2020 06:54 EDT Alk Phos 104 Units/Liter 10/03/2020 19:07 EDT AST 70 Units/Liter (High) 10/04/2020 06:54 EDT AST 159 Units/Liter (High) 10/03/2020 19:07 EDT ALT 71 Units/Liter (High) 10/04/2020 06:54 EDT ALT 96 Units/Liter (High) 10/03/2020 19:07 EDT Magnesium Level 1.9 mg/dL 10/04/2020 06:54 EDT Magnesium Level 1.8 mg/dL 10/03/2020 19:07 EDT Device Comment 1 No action Require 10/04/2020 05:53 EDT Glucose POC2 99 mg/dL 10/04/2020 05:53 EDT Glucose POC2 99 mg/dL 10/03/2020 22:41 EDT WBC 5.5 K/uL 10/04/2020 06:54 EDT WBC 7.2 K/uL 10/03/2020 19:07 EDT RBC 3.22 Million/uL (Low) 10/04/2020 06:54 EDT RBC 4.06 Million/uL 10/03/2020 19:07 EDT Hgb 10.9 g/dL (Low) 10/04/2020 06:54 EDT Hgb 12.5 g/dL 10/03/2020 19:07 EDT Hct 31.8 % (Low) 10/04/2020 06:54 EDT Hct 38.5 % 10/03/2020 19:07 EDT MCV 98.8 fL (High) 10/04/2020 06:54 EDT MCV 94.8 fL 10/03/2020 19:07 EDT MCH 33.9 pg (High) 10/04/2020 06:54 EDT MCH 30.8 pg 10/03/2020 19:07 EDT MCHC 34.3 Gram/dL 10/04/2020 06:54 EDT MCHC 32.5 Gram/dL 10/03/2020 19:07 EDT Platelet Count 240 K/uL 10/04/2020 06:54 EDT Platelet Count 280 K/uL 10/03/2020 19:07 EDT MPV 10.2 fL 10/04/2020 06:54 EDT MPV 10.2 fL 10/03/2020 19:07 EDT RDW 13.5 % 10/04/2020 06:54 EDT RDW 13.0 % 10/03/2020 19:07 EDT Neut % 46.9 % 10/04/2020 06:54 EDT Neut % 53.9 % 10/03/2020 19:07 EDT Neut # 2.59 K/uL 10/04/2020 06:54 EDT Neut # 3.90 K/uL 10/03/2020 19:07 EDT Lymph % 41.8 % 10/04/2020 06:54 EDT Lymph % 35.6 % 10/03/2020 19:07 EDT Lymph # 2.31 x10(3)/uL 10/04/2020 06:54 EDT Lymph # 2.58 x10(3)/uL 10/03/2020 19:07 EDT [place] % 8.5 % 10/04/2020 06:54 EDT [place] % 7.7 % 10/03/2020 19:07 EDT [place] # 0.47 K/uL 10/04/2020 06:54 EDT [place] # 0.56 K/uL 10/03/2020 19:07 EDT Eos % 1.6 % 10/04/2020 06:54 EDT Eos % 1.5 % 10/03/2020 19:07 EDT Eos # 0.09 x10(3)/uL 10/04/2020 06:54 EDT Eos # 0.11 x10(3)/uL 10/03/2020 19:07 EDT Baso % 0.7 % 10/04/2020 06:54 EDT Baso % 0.6 % 10/03/2020 19:07 EDT Baso # 0.04 x10(3)/uL 10/04/2020 06:54 EDT Baso # 0.04 x10(3)/uL 10/03/2020 19:07 EDT Slide Review No 10/04/2020 06:54 EDT Slide Review No 10/03/2020 19:07 EDT IG# 0.03 x10(3)/uL 10/04/2020 06:54 EDT IG# 0.05 x10(3)/uL 10/03/2020 19:07 EDT IG% 0.50 % 10/04/2020 06:54 EDT IG% 0.70 % (High) 10/03/2020 19:07 EDT PT 10.2 Second(s) 10/04/2020 06:54 EDT INR 1.0 10/04/2020 06:54 EDT Electronically signed by [facility] Conversion Performance Improvement Consultant Cerner at 08/23/2022 11:00 AM CDT documented in this encounter Plan of Treatment Not on file documented as of this encounter Visit Diagnoses Not on filedocumented in this encounter Care Teams [employer] Sales Consultant Relationship Specialty Start Date End Date Salima Gonzáles, [address] [id number] PCP - General Family Medicine 02/09/23 documented as of this encounter
--- OUTSIDE RECORDS SUMMARY | 2024-04-06 21:56 | XMS_ITS | Encounter Summary ---
Author Organization [employer] Address [address] [place] [address] Care Team Providers Care Hogshead Filler Name Role Phone Salima Mi DO Primary Care Provider [phone] Encounter Details Date Type Department Care Team (Late st Contact Info) Description 10/05/2020 Transcribed Document [facility] Family Medicine [address] [place] [id number] ProviderQuincy MD [address] [place] [id number] Social History Tobacco Use Types Packs/Day Years Used Date Smoking Tobacco: Never Assessed Comments Unknown Sex and Gender Information Value Date Recorded Sex Assigned at Not on file Legal Sex Female 2:54 PM CDT Gender Identity Not on file Sexual Orientation Not on file documented as of this encounter Miscellaneous Notes * Cerner Conversion Note - Quincy Kate MD - 10/05/2020 4:12 PM CDT [place] [address] AMBIKA PIERRE :1965 Visit Time:10/03/2020 Your Visit Summary Your Care Team Admitting Physician - SUREKHA ARGUELLES MD Attending Physician - TIM MCCORMICK, DO-INT Primary Care Physician - SALIMA MI, DO-FAM Your Diagnosis Hydronephrosis with obstructing calculus Kidney stone, Renal calculus, left, Calculus of kidney, Calculus of kidney Diabetes mellitus COPD with asthma Sinus congestion Elevated LFTs Thyroid disease Psoriasis Discharge Vitals Temperature 36.9 ??C Heart Rate (Monitored) 71 Respiratory Rate 16 Blood Pressure 115/67 What to do next Instructions From Your Care Team Discharge Activity: Activity as tolerated Discharge Diet: Resume usual diet as tolerated Follow-Up Appointments Follow Up with SALIMA MI DO-FAM When Within 1 to 2 weeks Comments Call for follow up appointment. Bring discharge instructions with you. Where: [address] [place] [address]- Follow Up with ANNABEL ZAMBRANO MD-URO When Within 3 months Comments For kidney stone follow up. Call for follow up appointment. Bring discharge instructions with you. Bring Ins Card, Photo ID, Ins Co-pay. Where: [address] [facility] [address] [place] [address]- Medications What How Much When Instructions Next Dose pseudoePHEDrine (Sudafed 30 mg oral tablet) 1 Tablet(s) Oral Every 6 Hours as needed for Congestion Pickup at [facility] as needed montelukast (Singulair 10 mg oral tablet) Oral Every Day tomorrow albuterol (Albuterol (Eqv-ProAir HFA)) Inhalation Every 6 Hours as needed buPROPion (Wellbutrin SR 150 mg/ 12 hours oral tablet, extended release) 1 Tablet(s) Oral Two Times A Day this evening doxycycline (doxycycline hyclate 50 mg oral capsule) Oral Every Day tomorrow etanercept (Enbrel Prefilled Syringe 50 mg/ mL subcutaneous solution) SubCutaneous Sunday, Sunday you have not had this today FLUoxetine 40 Milligram(s) Oral Two Times A Day this evening fluticasone-salmeterol (Advair 250) you have not had this today levothyroxine (Synthroid) 1.25 mg daily tomorrow linaclotide (Linzess 72 mcg oral capsule) Oral Every Day tomorrow loratadine (Claritin) 10mg daily tomorrow losartan (losartan 100 mg oral tablet) 1 Tablet(s) Oral Every Day tomorrow pregabalin (Lyrica) 150mg 2 times a day this evening simvastatin (simvastatin 10 mg oral tablet) 1 Tablet(s) Oral At Bedtime at bedtime sitagliptin (Januvia) 100mg daily tomorrow Pharmacy Information [facility]: [phone] [place] [id number] [phone] Take your medications faithfully. Do NOT skip medication. Do NOT stop taking medications without the direction of a physician. Carry a list of your medications with you at all times, and take this medication list with you to your first follow up visit. Report any side effects. Avoid herbal remedies unless discussed with your physician. As part of your treatment plan, your physician may have prescribed a limited course of a controlled substance. This medication may be given to help people with moderate or severe pain or for other medical conditions, but there are risks involved with treatment. Common side effects may include nausea, constipation, drowsiness, sweating, itching, dry mouth, and rash. More serious side effects may include cognitive and motor impairment, like problems with thinking, concentrating, alertness, and movement (e.g. slowed reflexes), and driving and operating heavy machinery can be dangerous. It is important for you to talk to your physician if you have these side effects or questions. These controlled substances can produce physical dependence and be habit-forming if taken for an extended period of time, which means that the body has gotten used to them and may experience withdrawal symptoms if they are abruptly stopped. Withdrawal symptoms can include runny nose, sweating, goose bumps, diarrhea, abdominal cramping, rapid heartbeat, difficulty sleeping, and nervousness. Please dispose of unused and medications per your retail pharmacy guidance. Allergies cefdinir (cefdinir, cefdinir) morphine Immunizations This Visit No Immunizations Found Education Materials Kidney Stones Kidney stones are rock-like masses [...] these instructions at home: Medicines ??? Take ohhs-ulp-ipqcwah and prescription medicines only as told by your doctor. ??? Ask your doctor if the medicine prescribed to you requires you to avoid driving or using heavy machinery. Eating and drinking ??? Drink enough fluid to keep your pee pale yellow. You may be told to drink at least 8???10 glasses of water each day. This will [...] hours after a stone comes out. ? 8???12 weeks after a stone comes out, and every 6???12 months after that. ??? Strain your pee [...] provider. Document Revised: 09/09/2019 Document Reviewed: 09/09/2019 [employer] Patient Education ?? 2020 [employer] Daily Deals. Ureteroscopy Ureteroscopy is a procedure to check [...] including vitamins, herbs, eye drops, creams, and tpho-cpn-zpkvbtk medicines. ??? Any problems you or family [...] Up to 2 hours before the procedure ??? you may continue to drink clear liquids, such as water, clear fruit juice, black coffee, and plain tea. Eating and drinking restrictions Follow instructions from your health care provider about eating and drinking, which may include: ??? 8 hours before the procedure ??? stop eating heavy meals or foods such as meat, fried foods, or fatty foods. ??? 6 hours before the procedure ??? stop eating light meals or foods, such as toast or cereal. ??? 6 hours before the procedure ??? stop drinking milk or drinks that contain milk. ??? 2 hours before the procedure ??? stop drinking clear liquids. Medicines ??? Ask [...] You may be asked to urinate. ??? Do not drive for 24 hours if you were given a sedative. This information is not intended to replace advice given to you by your health care provider. Make sure you discuss any questions you have with your health care provider. Document Revised: 04/05/2018 Document Reviewed: 02/02/2017 [employer] Patient Education ?? 2020 [employer] Dietary Guidelines to Help Prevent Kidney [...] calcium at each meal. Foods that contain 200???500 mg of calcium per serving include: ? 8 oz (237 ml) of milk, fortified nondairy milk, and fortified fruit juice. ? 8 oz (237 ml) of kefir, yogurt, and soy yogurt. ? 4 oz (118 ml) of tofu. ? 1 oz of cheese. ? 1 cup (300 g) of dried figs. ? 1 cup (91 g) of cooked broccoli. ? 1???3 oz can of sardines or mackerel. ??? [...] Rhubarb. ? Beets. ? Potato chips and belgian fries. ? Nuts. ??? If you regularly take a diuretic medicine, make sure to eat at least 1???2 fruits or vegetables high in potassium each day. These include: ? Avocado. ? Banana. ? Pilgrim, prune, carrot, or tomato juice. ? Baked [...] of beer, 5 oz of wine, or 1?? oz of hard liquor. ??? Lose weight [...] Casseroles. Pizza. Lasagna. Frozen meals. Potato chips. Venezuelan fries. Summary ??? You can reduce your [...] provider. Document Revised: 08/13/2019 Document Reviewed: 04/03/2017 [employer] Patient Education ?? 2019 Scre[employer] Daily Deals. pseudoephedrine (SALAZAR moralez ee FED rin) Chlor Trimeton Nasal Decongestant, Contac Cold, Drixoral Decongestant Non-Drowsy, Elixsure Decongestant, Genaphed, Nasofed, Nexafed, Silfedrine, Sudafed, Sudafed Children's Nasal Decongestant, SudoGest, Suphedrin, Triaminic Softchews Allergy Congestion What is the most important information I should know about pseudoephedrine? Do not use pseudoephedrine if you have used an MAO inhibitor in the past 14 days, such as isocarboxazid, linezolid, methylene blue injection, phenelzine, rasagiline, selegiline, or tranylcypromine. Always ask a doctor before giving a cough or cold medicine to a child. What is pseudoephedrine? Pseudoephedrine is a decongestant that shrinks blood vessels in the nasal passages. Dilated blood vessels can cause nasal congestion (stuffy nose). Pseudoephedrine is used to treat nasal and sinus congestion, or congestion of the tubes that drain fluid from your inner ears, called the eustachian (vpi-UUTA-xoqk) tubes. Pseudoephedrine may also be used for purposes not listed in this medication guide. What should I discuss with my healthcare provider before taking pseudoephedrine? You should not use this medicine if you are allergic to pseudoephedrine. Do not use pseudoephedrine if you have used an MAO inhibitor in the past 14 days. A dangerous drug interaction could occur. MAO inhibitors include isocarboxazid, linezolid, methylene blue injection, phenelzine, rasagiline, selegiline, tranylcypromine, and others. Ask a doctor or pharmacist if it is safe for you to use pseudoephedrine if you have other medical conditions, especially: ?? heart disease or high blood pressure; ?? enlarged prostate and urination problems; ?? diabetes; or ?? a thyroid disorder. Artificially sweetened liquid medicine may contain phenylalanine. Check the medication label if you have phenylketonuria (PKU). It is not known whether pseudoephedrine will harm an unborn baby. Do not use this medicine without a doctor's advice if you are . It is not known whether pseudoephedrine passes into breast milk or if it could harm a nursing baby. Do not use this medicine without a doctor's advice if you are breast-feeding a baby. How should I take pseudoephedrine? Use exactly as directed on the label, or as prescribed by your doctor. Do not use in larger or smaller amounts or for longer than recommended. Cold medicine is usually taken only for a short time until your symptoms clear up. Do not give this medication to a child younger than 4 years old. Always ask a doctor before giving a cough or cold medicine to a child. can occur from the misuse of cough and cold medicines in very young children. Take this medicine with a full glass of water. Do not crush, chew, or break an extended-release tablet. Swallow it whole. You may need to shake the oral suspension (liquid) well just before you measure a dose. Measure liquid medicine with the dosing syringe provided, or with a special dose-measuring spoon or medicine cup. If you do not have a dose-measuring device, ask your pharmacist for one. Call your doctor if your symptoms do not improve after 7 days of treatment, or if you have a fever with a headache, cough, or skin rash. If you need surgery, tell the surgeon ahead of time that you are using pseudoephedrine. You may need to stop using the medicine for a short time. Store at room temperature away from moisture and heat. Protect the liquid medicine from light, and do not allow it to freeze. What happens if I miss a dose? Since pseudoephedrine is used when needed, you may not be on a dosing schedule. If you are on a schedule, use the missed dose as soon as you remember. Skip the missed dose if it is almost time for your next scheduled dose. Do not use extra medicine to make up the missed dose. What happens if I overdose? Seek emergency medical attention or call the Poison Help line at . Overdose symptoms may include hallucinations, slow heartbeats, or seizure (convulsions). What should I avoid while taking pseudoephedrine? Avoid taking this medication if you also take diet pills, caffeine pills, or other stimulants (such as ADHD medications). Taking a stimulant together with a decongestant can increase your risk of unpleasant side effects. Ask a doctor or pharmacist before using any other cough or cold medicine. Many combination medicines contain pseudoephedrine or another decongestant. Taking certain products together can cause you to get too much of this type of medicine. What are the possible side effects of pseudoephedrine? Get emergency medical help if you have signs of an allergic reaction: hives; difficult breathing; swelling of your face, lips, tongue, or throat. Stop using pseudoephedrine and call your doctor at once if you have: ?? fast or pounding heartbeats; ?? severe dizziness; ?? severe nervousness; or ?? sleep problems (insomnia). Common side effects may include: ?? feeling restless or nervous. This is not a complete list of side effects and others may occur. Call your doctor for medical advice about side effects. You may report side effects to FDA at 2-661-ZRX-3773. What other drugs will affect pseudoephedrine? Other drugs may interact with pseudoephedrine, including prescription and rfgx-cwk-tohrrgv medicines, vitamins, and herbal products. Tell each of your health care providers about all medicines you use now and any medicine you start or stop using. Where can I get more information? Your pharmacist can provide more information about pseudoephedrine. Remember, keep this and all other medicines out of the reach of children, never share your medicines with others, and use this medication only for the indication prescribed. Every effort has been made to ensure that the information provided by [employer]. ('[employer]') is accurate, up-to-date, and complete, but no guarantee is made to that effect. Drug information contained herein may be time sensitive. [employer] information has been compiled for use by healthcare practitioners and consumers in the [place] and therefore [employer] does not warrant that uses outside of the [place] are appropriate, unless specifically indicated otherwise. [employer]'s drug information does not endorse drugs, diagnose patients or recommend therapy. [employer] drug information is an informational resource designed to assist licensed healthcare practitioners in caring for their patients and/or to serve consumers viewing this service as a supplement to, and not a substitute for, the expertise, skill, knowledge and judgment of healthcare practitioners. The absence of a warning for a given drug or drug combination in no way should be construed to indicate that the drug or drug combination is safe, effective or appropriate for any given patient. [facility] does not assume any responsibility for any aspect of healthcare administered with the aid of information [facility] provides. The information contained herein is not intended to cover all possible uses, directions, precautions, warnings, drug interactions, allergic reactions, or adverse effects. If you have questions about the drugs you are taking, check with your doctor, nurse or pharmacist. Copyright 3484-8581 [employer]. Version: 7.03. Revision Date: 06/07/2015. Emergency Awareness and Preventative Care STROKE is an EMERGENCY Every Minute Counts Act FAST and Check for these signs: FACE Does the face look uneven? ARM Does one arm drift down? SPEECH Does their speech sound strange? TIME Call at any sign of stroke Stroke Risk Factors Atrial Fibrillation (irregular heartbeat) Diabetes Family history of stroke Heart Disease Heavy alcohol use High Blood Pressure High Cholesterol Physical inactivity and obesity Smoking Cigarette Smoking The facts are clear, cigarette smoking will shorten your life. Smoking can cause many illnesses along the way. As a healthcare provider, we recommend that you stop smoking. Assistance with quitting is available by contacting 7-884-LONC-NOW. This is a free resource providing counseling, support, and referral. Or you may contact your personal physician. National Suicide Prevention Lifeline: The National Suicide Prevention Lifeline is a national network of local crisis centers that provides free and confidential emotional support to people in suicidal crisis or emotional distress 24 hours a day, 7 days a week. Don't Wait! Stop a Heart Attack Before it Starts What is a heart attack? A heart attack is damage or to a part of the heart from severely decreased or lack of blood flow to the heart. Over time, arteries can become narrow from the buildup of fat and cholesterol, which is called plaque. The plaque can rupture causing a blood clot to form. When the blood clot forms, the artery can become severely narrowed or completely blocked, causing a heart attack. Heart attack is the leading cause of in the [place]. 85% of muscle damage occurs within the first 2 hours. Delay in the recognition of heart attack symptoms increases the chances of . Know the early symptoms of a heart attack: Nausea Feeling of fullness in chest Jaw Pain Pain that travels down one or both arms Fatigue/being tired Anxiety Back Pain Chest pressure, squeezing, or discomfort Shortness of breath Sweating, or a cold sweat Feeling of impending doom There are unusual signs of a heart attack, too! Women, the elderly, and diabetics may present with atypical symptoms: Fainting/dizziness Weakness Confusion Risk Factors for a Heart Attack Some heart disease risk factors, such as age and family history, cannot be changed. Others, like smoking and lack of exercise, can be changed. Smoking High Cholesterol High Blood Pressure Family History Obesity Age Gender (Males are at higher risk) Lack of Exercise Diabetes Diet Stress Excessive Alcohol Intake If you or someone you know is experiencing the signs and symptoms of a heart attack, DON???T DELAY. Call immediately and seek help. If someone collapses, perform CPR! Do not attempt to drive if you are having symptoms of heart attack. Hands-Only CPR Why Hands-Only CPR? Hands-Only CPR has been shown to be as effective as conventional CPR for cardiac arrests that occur outside of a hospital. Survival depends on immediately receiving CPR from someone nearby. How do you perform Hands-Only CPR? There are two easy steps: Call if you see a teen or adult collapse Push hard and fast in the center of the chest at a beat of 100 beats per minute. Save a life! 4 WAYS TO GET AHEAD OF SEPSIS SEPSIS is a MEDICAL EMERGENCY. Time matters! Infections put you and your family at risk for a life-threatening condition called sepsis. Sepsis is the body's extreme response to an infection. It is life-threatening, and without timely treatment, sepsis can rapidly lead to tissue damage, organ failure, and . Sepsis happens when an infection you already have-in your skin, lungs, urinary tract or somewhere else-triggers a chain reaction throughout your body. 1 PREVENT INFECTIONS Take good care of chronic conditions. Talk to your doctor about getting the recommended vaccines. 2 PRACTICE GOOD HYGIENE Wash your hands frequently. Keep cuts or open sores clean and covered until they are healed. 3 KNOW THE SYMPTOMS Confusion or disorientation Shortness of breath High heart rate Fever, shivering, or feeling very cold Extreme pain or discomfort Clammy or sweaty skin 4 ACT FAST Get medical care IMMEDIATELY if you suspect sepsis or if you have an infection that is not getting better or is getting worse. To learn more about sepsis and how to prevent infections, visit www.cdc.gov/sepsis. Test Results Laboratory or Other Results This Visit (last charted value for your 10/03/2020 visit) Hematology 10/05/2020 6:30 AM WBC: 6.7 K/uL -- Normal range between ( 4.5 and 10.5 ) RBC: 3.22 Million/uL -- Normal range between ( 3.93 and 5.22 ) Hct: 31.2 % -- Normal range between ( 34.1 and 44.9 ) Hgb: 11.1 g/dL -- Normal range between ( 11.2 and 15.7 ) Platelet Count: 240 K/uL -- Normal range between ( 163 and 369 ) MCH: 34.5 pg -- Normal range between ( 25.6 and 32.2 ) MCHC: 35.6 Gram/dL -- Normal range between ( 32.2 and 36.5 ) MCV: 96.9 fL -- Normal range between ( 79.0 and 94.8 ) Slide Review: No RDW: 13.2 % -- Normal range between ( 11.7 and 14.9 ) MPV: 10.7 fL -- Normal range between ( 9.4 and 12.4 ) 10/04/2020 6:54 AM Eos %: 1.6 % -- Normal range between ( 0.0 and 7.0 ) [place] #: 0.47 K/uL -- Normal range between ( 0.16 and 1.00 ) Eos #: 0.09 x10(3)/uL -- Normal range between ( 0.00 and 0.80 ) [place] %: 8.5 % -- Normal range between ( 3.0 and 9.0 ) Baso %: 0.7 % -- Normal range between ( 0.0 and 1.5 ) Baso #: 0.04 x10(3)/uL -- Normal range between ( 0.00 and 0.20 ) Neut %: 46.9 % -- Normal range between ( 34.0 and 71.0 ) Neut #: 2.59 K/uL -- Normal range between ( 1.56 and 6.13 ) Lymph %: 41.8 % -- Normal range between ( 19.3 and 53.1 ) Lymph #: 2.31 x10(3)/uL -- Normal range between ( 1.00 and 3.90 ) IG#: 0.03 x10(3)/uL -- Normal range between ( 0.00 and 0.05 ) IG%: 0.50 % -- Normal range between ( 0.00 and 0.60 ) General Chemistry 10/05/2020 11:24 AM Glucose POC2: 109 mg/dL -- Normal range between ( 70 and 110 ) Device Comment 1: Device Comment 1 10/05/2020 6:30 AM Creatinine Level: 0.80 mg/dL -- Normal range between ( 0.55 and 1.02 ) Sodium Level: 142 mmol/L -- Normal range between ( 136 and 146 ) Potassium Level: 3.9 mmol/L -- Normal range between ( 3.5 and 5.1 ) Chloride Level: 108 mmol/L -- Normal range between ( 102 and 112 ) Carbon Dioxide Level: 29 mmol/L -- Normal range between ( 21 and 32 ) Anion Gap: 9 -- Normal range between ( 9 and 20 ) Bilirubin Total: 0.7 mg/dL -- Normal range between ( 0.2 and 1.2 ) A/G Ratio: 0.9 -- Normal range between ( 1.1 and 2.5 ) ALT: 63 Units/Liter -- Normal range between ( 13 and 56 ) AST: 44 Units/Liter -- Normal range between ( 5 and 37 ) Globulin: 3.4 Gram/dL -- Normal range between ( 1.5 and 4.5 ) Alk Phos: 77 Units/Liter -- Normal range between ( 27 and 136 ) Bun/Creatinine: 16.2 -- Normal range between ( 8.0 and 20.0 ) Calcium Level: 8.6 mg/dL -- Normal range between ( 8.4 and 10.1 ) eGFR : >60 mL/min/1.73m2 eGFR NonAfrican: >60 mL/min/1.73m2 Glucose Level: 98 mg/dL -- Normal range between ( 74 and 106 ) Blood Urea Nitrogen: 13 mg/dL -- Normal range between ( 7 and 22 ) Protein Total: 6.3 Gram/dL -- Normal range between ( 6.4 and 8.2 ) Albumin Level: 2.9 Gram/dL -- Normal range between ( 3.4 and 5.0 ) 10/04/2020 6:54 AM Magnesium Level: 1.9 mg/dL -- Normal range between ( 1.5 and 2.4 ) Coagulation 10/04/2020 6:54 AM INR: 1.0 -- Normal range between ( 0.9 and 1.2 ) PT: 10.2 Second(s) -- Normal range between ( 9.2 and 12.0 ) Patient Name:AMBIKA PIERRE I have received and understand this information and was given the opportunity to ask questions. Patient/Drum Stenciler Name: Patient/Drum Stenciler Signature: Relationship to Patient: Clinician/Hospital Drum Stenciler Signature: Date: documented in this encounter Plan of Treatment Not on file documented as of this encounter Visit Diagnoses Not on filedocumented in this encounter Care Teams Hogshead Filler Relationship Specialty Start Date End Date Salima Mi DO [address] [facility] [address] [place] [address] (work) PCP - General Family Medicine 02/09/23 documented as of this encounter
--- OUTSIDE RECORDS SUMMARY | 2024-04-06 21:56 | XMS_ITS | Encounter Summary ---
Author Organization [email or web address] Address [address] [place] [address] Care Team Providers Care National Van Owner Operator Name Role Phone Salima Gonzáles DO Primary Care Provider [phone] Encounter Details Date Type Department Care Team (Late st Contact Info) Description 10/05/2020 Transcribed Document [facility] [place] Family Medicine [address] [place] [address] ProviderQuincy MD [address] [place] [address] Social History Tobacco Use Types Packs/Day Years Used Date Smoking Tobacco: Never Assessed Comments Unknown Sex and Gender Information Value Date Recorded Sex Assigned at Not on file Legal Sex Female 2:54 PM CDT Gender Identity Not on file Sexual Orientation Not on file documented as of this encounter Miscellaneous Notes * Cerner Conversion Note - Quincy ProviderMD - 10/05/2020 5:00 AM CDT Chart Check - Review Order Profile Entered On: 10/05/2020 5:29 EDT Performed On: 10/05/2020 5:00 EDT by Janae Avery LPN Chart Check Powerplans Initiated/Discontinued as Appropriate : Yes All Active Orders Reviewed : Yes Janae Avery LPN - 10/05/2020 5:29 EDT documented in this encounter Plan of Treatment Not on file documented as of this encounter Visit Diagnoses Not on filedocumented in this encounter Care Teams National Van Owner Operator Relationship Specialty Start Date End Date Salima Gonzáles DO [address] [phone] PCP - General Family Medicine 02/09/23 documented as of this encounter
--- OUTSIDE RECORDS SUMMARY | 2024-04-06 21:56 | XMS_ITS | Encounter Summary ---
Author Organization [employer] Address [address] [place] [address] Care Team Providers Care Intermediate Project Manager Name Role Phone Salima Gonzáles Primary Care Provider [phone] Encounter Details Date Type Department Care Team (Late st Contact Info) Description 10/04/2020 Transcribed Document [facility] [place] [address] [place] [address] ProviderQuincy MD [address] [place] [address] Social History Tobacco Use Types Packs/Day Years Used Date Smoking Tobacco: Never Assessed Comments Unknown Sex and Gender Information Value Date Recorded Sex Assigned at Not on file Legal Sex Female 2:54 PM CDT Gender Identity Not on file Sexual Orientation Not on file documented as of this encounter Miscellaneous Notes * Cerner Conversion Note - Quincy Kate MD - 10/04/2020 2:23 PM CDT Pain Assessment Entered On: 10/04/2020 16:47 EDT Performed On: 10/04/2020 15:19 EDT by Hoa Coleman RN Intervention Information: oxyCODONE Performed by ESPERANZA LAWRENCE RN on 10/04/2020 14:19:00 EDT oxyCODONE,5mg Oral,Pain (Moderate 4-6) Pain Assessment Pain Assessment : Follow-up assessment Pain Improved by Intervention : Yes Hoa Coleman RN - 10/04/2020 16:47 EDT documented in this encounter Plan of Treatment Not on file documented as of this encounter Visit Diagnoses Not on filedocumented in this encounter Care Teams Intermediate Project Manager Relationship Specialty Start Date End Date Salima Gonzáles, [address] [phone] PCP - General Family Medicine 02/09/23 documented as of this encounter
--- OUTSIDE RECORDS SUMMARY | 2024-04-06 21:56 | XMS_ITS | Encounter Summary ---
Author Organization [employer] Address [address] [place] [address] Care Team Providers Care Automation Controls Engineer Name Role Phone Unavailable Primary Care Provider Unavailabl e Encounter Details Date Type Department Care Team (Late st Contact Info) Description 10/04/2020 Historic Encounter [address] [phone] Provider, [facility] Historical Social History Tobacco Use Types [...] Procedure Name Priority Date/Time Associated Diagnosis Comments AUTOMATED DIFFERENTIAL ([facility] DATA CONV) Routine 10/04/2020 6:54 AM EDT documented in this encounter Results * AUTOMATED DIFFERENTIAL ([facility] DATA CONV) (10/04/2020 6:54 AM EDT) Neut% 46.9 34.0 - 71.0 % 10/04/2020 11:18 AM EDT Lymph% 41.8 19.3 - 53.1 % 10/04/2020 11:18 AM EDT Wash[place]% 8.5 3.0 - 9.0 % 10/04/2020 11:18 AM EDT Eos% 1.6 0.0 - 7.0 % 10/04/2020 11:18 AM EDT Baso% 0.7 0.0 - 1.5 % 10/04/2020 11:18 AM EDT IG% 0.50 0.00 - 0.60 % 10/04/2020 11:18 AM EDT Neut# 2.59 1.56 - 6.13 K/uL 10/04/2020 11:18 AM EDT Lymph# 2.31 1.00 - 3.90 x10(3)/uL 10/04/2020 11:18 AM EDT [place]# 0.47 0.16 - 1.00 K/uL 10/04/2020 11:18 AM EDT Eos# 0.09 0.00 - 0.80 x10(3)/uL 10/04/2020 11:18 AM EDT Baso# 0.04 0.00 - 0.20 x10(3)/uL 10/04/2020 11:18 AM EDT IG# 0.03 0.00 - 0.05 x10(3)/uL 10/04/2020 11:18 AM EDT Blood 10/04/2020 6:54 AM EDT 10/04/2020 11:13 AM EDT Narrative [facility] - 10/04/2020 11:21 AM EDT Added by Discern Expert us Sle Historical Provider LAB BLOOD ORDERABLES Fi nal Result Performing Organization Address City/State/[facility] Co de Phone Number [facility] [address] [place] [address], [facility] [phone] documented in this encounter Visit Diagnoses Not on filedocumented in this encounter
--- OUTSIDE RECORDS SUMMARY | 2024-04-06 21:56 | XMS_ITS | Encounter Summary ---
Author Organization [employer] Address [address] [place] [address] Care Team Providers Care Press Hand Name Role Phone Unavailable Primary Care Provider Unavailabl e Encounter Details Date Type Department Care Team (Late st Contact Info) Description 10/04/2020 Historic Encounter [address] [phone] ProviderScarlet Historical Social History Tobacco [...] Date/Time Associated Diagnosis Comments GLUCOSE-POC Routine 10/04/2020 12:29 PM EDT documented in this encounter Results * Glucose, Point of Care (10/04/2020 12:29 PM EDT) Glucose POC2 96 70 - 110 mg/dL 10/04/2020 4:29 PM EDT [facility] Appliance Service Supervisor [phone] 10/04/2020 4:29 PM EDT [facility] Device SN [id number] 10/04/2020 4:29 PM EDT [facility] Device Comment1 Notified Nurse RBV 10/04/2020 4:29 PM EDT [facility] Blood 10/04/2020 12:2 9 PM EDT 10/04/2020 4:32 PM EDT [facility] Historical Provider POINT OF CARE TEST MARIMAR BRISCOE Final Result Performing Organization Address City/State/[facility] Co de Phone Number [facility] [address] [phone] documented in this encounter Visit Diagnoses Not on filedocumented in this encounter
--- OUTSIDE RECORDS SUMMARY | 2024-04-06 21:56 | XMS_ITS | Encounter Summary ---
Author Organization [employer] Address [address] [place] [address] Care Team Providers Care Hyperion Developer Name Role Phone nAujSalima somers Tate SWANN Primary Care Provider [phone] Encounter Details Date Type Department Care Team (Late st Contact Info) Description 10/05/2020 Transcribed Document [facility] [place] [facility] [place] [address] ProviderQuincy MD [address] [place] [id number] Social History Tobacco Use Types Packs/Day Years Used Date Smoking Tobacco: Never Assessed Comments Unknown Sex and Gender Information Value Date Recorded Sex Assigned at Not on file Legal Sex Female 2:54 PM CDT Gender Identity Not on file Sexual Orientation Not on file documented as of this encounter Miscellaneous Notes * Cerner Conversion Note - Quincy Kate MD - 10/05/2020 9:47 AM CDT Patient: AMBIKA PIERRE Age: 54 Years Sex: Female : 1965 Subjective Patient feels well today. She is having some minor discomfort from the stent. She is having incontinence which was not a problem for her prior. Intake & Output Intake & Output Totals Last 24 Hours (7a-7a) Intake (19 Events) Continuous Infusions (1200 mL) Medications (1.2 mL) Oral Intake (560 mL) Surgical Services Intake (900 mL) Output (6 Events) Urine Voided (Volume) (2050 mL) Input Total: 2661.2 mL Output Total: 2050 mL Balance: 611.2 mL Vital Signs T: 36.6 ??C TMIN: 36.4 ??C TMAX: 37 ??C HR: 62(Monitored) RR: 18 BP: 148/88 SpO2: 98% HT: 154.94 cm WT: 118.18 kg BMI: 49.2 Physical Exam Lying in bed, no acute distress Alert and orient x3 Unlabored respirations Regular heart rate No suprapubic discomfort on palpation VTE Risk Total Score VTE Prophylaxis - Surgical Heparin 5,000 Units, SubCutaneous, Inj, Q8HInt, Routine, Start 10/03/20 20:00:00 EDT, 10/03/20 19:48:00 EDT (TIM MCCORMICK) Assessment/Plan 54-year-old female with a history of recurrent nephrolithiasis who presented with an 8 mm left UPJ stone. She underwent ureteroscopy and stent placement for the stone on 10/04/2020. She is overall doing well today. Afebrile and hemodynamically stable. Labs normal. -PVR <50cc. Not retaining urine. Incontinence likely related to bladder spasms from stent. -Can send home with Ditropan for spasms -Tylenol/Ibuprofen for pain -Patient should remove stent on strings at home on 10/07 -Outpatient follow-up in urology clinic for stones in 3 months -Stable for discharge from surgical perspective 1. Hydronephrosis with obstructing calculus N13.2 2. Kidney stone N20.0, Renal calculus, left N20.0, Calculus of kidney N20.0, Calculus of kidney N20.0 4. Diabetes mellitus E11.9 5. 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 Sinus congestion R09.81 7. Elevated LFTs R79.89 8. Thyroid disease E07.9 9. Psoriasis L40.9 Orders: Post Void Residual Medications Inpatient acetaminophen-HYDROcodone 325 mg-5 mg oral tablet, 1 Tab, Oral, Q4H, PRN atorvastatin, 5 mg= 0.5 Tab, Oral, At Bedtime Dulcolax Laxative, 5 mg= 1 Tab, Oral, Daily, PRN DULoxetine, 40 mg= 2 Cap, Oral, BID DuoNeb 0.5 mg-2.5 mg/3 mL inhalation solution, 3 mL, Nebulized Inhalation , RT_Q6H, PRN erythromycin 0.5% ophthalmic ointment, 1 Application, Eye Right, BID heparin, 5000 Units= 1 mL, SubCutaneous, Q8HInt HYDROmorphone, 0.2 mg= 0.2 mL, IV Push, Q4H, PRN insulin lispro greater than 101 kg, greater than 101 kg scale, SubCutaneous, AC and at Bedtime linzess 72mcg, 1 Cap, Oral, Daily losartan, [...] solution 1,000 mL, 1000 mL, IntraVENous Sudafed, 30 mg= 1 Tab, Oral, Q6H Sudafed, 30 mg= 1 Tab, Oral, Q6H, PRN Synthroid, 125 mcg= 1 Tab, Oral, Daily tamsulosin, 0.4 mg= 1 Cap, Oral, Daily Toradol, 30 mg= 1 mL, IV Push, Q6H, PRN Tylenol, 650 mg= 2 Tab, Oral, Q4H, PRN Tylenol, 650 mg= 2 Tab, Oral, Q4H, PRN Wellbutrin SR, 150 mg= 1 Tab, Oral, BID Zofran, 4 mg= 2 mL, IV Push, Q4H, PRN Home Advair 250 Albuterol (Eqv-ProAir HFA), Inhalation, Q6H Claritin doxycycline hyclate 50 mg oral capsule, Oral, Daily Enbrel Prefilled Syringe 50 mg/mL subcutaneous solution, SubCutaneous, TuSa FLUoxetine, 40 mg, Oral, BID Januvia Linzess 72 mcg oral capsule, Oral, Daily losartan 100 mg oral tablet, 100 mg= 1 Tab, Oral, Daily Lyrica simvastatin 10 mg oral tablet, 10 mg= 1 Tab, Oral, At Bedtime Singulair 10 mg oral tablet, Oral, Daily Sudafed 30 mg oral tablet, 30 mg= 1 Tab, Oral, Q6H, PRN Synthroid Wellbutrin SR 150 mg/12 hours oral tablet, extended release, 150 mg= 1 Tab, Oral, BID Labs Results OCT 05 06:30 \ L 11.1 / 6.7 240 / L 31.2 \ Albumin Level: 2.9 Gram/dL Low Alk Phos: 77 Units/Liter ALT: 63 Units/Liter High Anion Gap: 9 AST: 44 Units/Liter High Bilirubin Total: 0.7 mg/dL Calcium Level: 8.6 mg/dL Protein Total: 6.3 Gram/dL Low Imaging Results (Last 24 Hours) No Radiology Results Found Problem List/Past Medical History Ongoing anemia Arthritis ASTHMA b12 deficiency Back problem Diabetes mellitus History of obstructive sleep apnea Hypertension Kidney stone Neuropathy Rash Thyroid disease Urgency incontinence Urinary tract infection Historical No qualifying data Procedure/Surgical History 2 cyst removed one pilineal cyst and one ganglion, cold cone, d and c, endometrial ablation, gallbladder removal, gastric bypass, heel spur removed left, hysterectomy, kidney stone surgery 2 times, left meniscus repair, shingles, tonsillectomy, total knee left. Allergies cefdinir (cefdinir, cefdinir) morphine documented in this encounter Plan of Treatment Not on file documented as of this encounter Visit Diagnoses Not on filedocumented in this encounter Care Teams Hyper[employer] Developer Relationship Specialty Start Date End Date Salima Gonzáles, [address] [phone] PCP - General Family Medicine 02/09/23 documented as of this encounter
--- OUTSIDE RECORDS SUMMARY | 2024-04-06 21:56 | XMS_ITS | Encounter Summary ---
Author Organization [employer] Address [address] [place] [address] Care Team Providers Care Roving Weight Gauger Name Role Phone Unavailable Primary Care Provider Unavailabl e Encounter Details Date Type Department Care Team (Late st Contact Info) Description 10/05/2020 Historic Encounter [address] [address] Provider, [facility] Historical Social History Tobacco Use [...] Associated Diagnosis Comments CMP COMPREHENSIVE METABOLIC PANEL ([facility] DATA CONV) Routine 10/05/2020 6:30 AM EDT documented in this encounter Results * (ABNORMAL) CMP COMPREHENSIVE METABOLIC PANEL ([facility] DATA CONV) (10/05/2020 6:30 AM EDT) Sodium Level 142 136 - 146 mmol/L 10/05/2020 11:52 AM EDT Potassium Level 3.9 3.5 - 5.1 mmol/L 10/05/2020 11:52 AM EDT Chloride Level 108 102 - 112 mmol/L 10/05/2020 11:52 AM EDT Carbon Dioxide Level 29 21 - 32 mmol/L 10/05/2020 11:52 AM EDT Anion Gap 9 9 - 20 10/05/2020 11:52 AM EDT Calcium Level 8.6 8.4 - 10.1 mg/dL 10/05/2020 11:52 AM EDT Glucose Level 98 74 - 106 mg/dL 10/05/2020 11:52 AM EDT Comment: [employer] has become aware of sulfasalazine and sulfapyridine [...] administration of the drug. Blood Urea Nitrogen 13 7 - 22 mg/dL 10/05/2020 11:52 AM EDT Creatinine Level 0.80 0.55 - 1.02 mg/dL 10/05/2020 11:52 AM EDT Bun/Creatinine 16.2 8.0 - 20.0 10/05/2020 11:52 AM EDT Albumin Level 2.9(L) 3.4 - 5.0 Gram/dL 10/05/2020 11:52 AM EDT Protein, Total 6.3(L) 6.4 - 8.2 Gram/dL 10/05/2020 11:52 AM EDT A/G Ratio 0.9(L) 1.1 - 2.5 10/05/2020 11:52 AM EDT Alk Phos 77 27 - 136 Units/Lit er 10/05/2020 11:52 AM EDT ALT 63(H) 13 - 56 Units/Lit er 10/05/2020 11:52 AM EDT Comment: [employer] has become aware of sulfasalazine and sulfapyridine [...] prior to administration of the drug. AST 44(H) 5 - 37 Units/Lit er 10/05/2020 11:52 AM EDT Comment: [employer] has become aware of sulfasalazine and sulfapyridine [...] to administration of the drug. Bilirubin, Total 0.7 0.2 - 1.2 mg/dL 10/05/2020 11:52 AM EDT Comment: Total bilirubin results may be falsely elevated in patients undergoing treatment with eltrombopag (Promacta). Results should be correlated to clinical symptomology and additional laboratory testing including other markers for liver function, e.g., alanine aminotransferase, aspartate aminotransferase, alkaline phosphatase, and/or lactate dehydrogenase. Globulin 3.4 1.5 - 4.5 Gram/dL 10/05/2020 11:52 AM EDT eGFR >60 >=60 mL/min/1. 73m2 10/05/2020 11:55 AM EDT Comment: GFR <60 suggests chronic kidney disease, if found over 3 month period. GFR <15 indicates renal failure. eGFR NonAfrican >60 >=60 mL/min/1. 73m2 10/05/2020 11:55 AM EDT Comment: GFR <60 suggests chronic kidney disease, if found over 3 month period. GFR <15 indicates renal failure. Blood 10/05/2020 6:30 AM EDT 10/05/2020 11:22 AM EDT [facility] Historical Provider LAB BLOOD ORDERABLES Fi nal Result [facility] [address] [place], [place] [address] [phone] documented in this encounter Visit Diagnoses Not on filedocumented in this encounter
--- OUTSIDE RECORDS SUMMARY | 2024-04-06 21:56 | XMS_ITS | Encounter Summary ---
Author Organization [employer] Address [address] [place] [address] Care Team Providers Care Production Crew Supervisor Name Role Phone Salima Gonzáles Primary Care Provider [phone] Encounter Details Date Type Department Care Team (Late st Contact Info) Description 10/04/2020 Transcribed Document [facility] [place] [facility] [address] ProviderQuincy MD [address] [place] [id number] Social History Tobacco Use Types Packs/Day Years Used Date Smoking Tobacco: Never Assessed Comments Unknown Sex and Gender Information Value Date Recorded Sex Assigned at Not on file Legal Sex Female 2:54 PM CDT Gender Identity Not on file Sexual Orientation Not on file documented as of this encounter Miscellaneous Notes * Cerner Conversion Note - Quincy Kate MD - 10/04/2020 8:24 AM CDT [facility] Authorization Entered On: 10/04/2020 8:25 EDT Performed On: 10/04/2020 8:24 EDT by DEISY LIRA RN Primary Insurance Authorization Authorization and Policy Numbers : Insurance 1 Health Plan: [facility] MEDICARE REPL Policy Number: [id number] Authorization Number: Insurance Primary Name : [employer] REPL Policy Number: [id number] Authorization Status-Primary : Awaiting callback Reference Number-Primary : [id number] Authorized Service Begin Date-Primary : 10/03/2020 EDT Authorization Comments-Primary : Clinicals submitted via [employer] for IP approval Historical Authorization Comments-Primary : No Authorization Comments Found DEISY LIRA, RN - 10/04/2020 8:24 EDT Electronically signed by [facility] Con[facility] Manager Paramjitner at 08/23/2022 11:14 AM CDT documented in this encounter Plan of Treatment Not on file documented as of this encounter Visit Diagnoses Not on filedocumented in this encounter Care Teams Production Crew Supervisor Relationship Specialty Start Date End Date Salima Gonzáles, 8 [facility] [address] [place] [address] PCP - General Family Medicine 02/09/23 documented as of this encounter
--- OUTSIDE RECORDS SUMMARY | 2024-04-06 21:56 | XMS_ITS | Encounter Summary ---
Author Organization [facility] Address [address] [place] [address] Care Team Providers Care Waste And Batting Waste Chopper Name Role Phone Salima Gonzáles DO Primary Care Provider [phone] Reason for Referral * Cardiac Stress Testing (Routine) - Closed Specialty Diagnoses / Procedures Referred By Josep banuelos Referred To Contact Diagnoses Precordial chest pain Shortness of breath Procedures Stress Test With Myocardial Perfusion One Day Alea Juarez APRN [address] [place] [address] Phone: tel: fax: [address] [place] [address] Phone: tel: Referral ID Status Reason Start Date Expiration Date Visits Re quested Visits Authorized [id number] Closed 12/13/2022 12/13/2023 4 1 * Diagnostic Imaging (Routine) - Closed Specialty Diagnoses / Procedures Referred By Josep banuelos Referred To Contact Diagnoses Precordial chest pain Shortness of breath Palpitations Procedures Adult Transthoracic Echo Complete W/ Cont if Necessary Per Protocol Alea Juarez APRN [address] [place] [address] Phone: tel: fax: [facility] [address] [place] [address] Phone: tel: fax: Referral ID Status Reason Start Date Expiration Date Visits Re quested Visits Authorized [id number] Closed 12/13/2022 12/13/2023 1 1 Reason for Visit * Reason Comments Establish Care Palpitations * Consultation (Routine) - Closed Specialty Diagnoses / Procedures Referred By Contac t Referred To Contact Cardiology Diagnoses Premature beats Palpitations Salima Gonzáles, DO [address] [place] [address] Phone: tel: fax: [facility] [address] [place] [address] Phone: tel: fax: Referral ID Status Reason Start Date Expiration Date Visits Re quested Visits Authorized [id number] Closed 11/29/2022 11/29/2023 1 1 Encounter Details Date Type Department Care Team (Late st Contact Info) Description 12/13/2022 1:00 PM EDT Office Visit [facility] [address] [place] [address] Alea Juarez APRN [address] [place] [address] Palpitations (Primary Dx); Shortness of breath; Precordial chest pain; MAGDI (obstructive sleep apnea) Social History Tobacco [...] Sign Reading Time Taken Comments Blood Pressure 134/84 12/13/2022 12:55 PM EDT Pulse 61 12/13/2022 12:55 PM EDT Temperature - - Respiratory Rate - - Oxygen Saturation 98% 12/13/2022 12:55 PM EDT Inhaled Oxygen Concentration - - Weight 119 kg (262 lb) 12/13/2022 12:55 PM EDT Height 157.5 cm (5' 2 ) 12/13/2022 12:55 PM EDT Body Mass Index 47.92 12/13/2022 12:55 PM EDT documented in this encounter Progress Notes * Alea Juarez APRN - 12/13/2022 2:22 PM EDTAssociated Problem(s): MAGDI (obstructive sleep apnea) Diagnosed with MAGDI years ago but has been unable to tolerate PAP therapy. Encouraged patient to restart PAP therapy and contact [employer] to find a better mask that does not cause migraines. * Alea Juarez APRN - 12/13/2022 2:20 PM EDTAssociated Problem(s): Precordial chest pain Nuclear stress test for further evaluation. * Alea Juarez APRN - 12/13/2022 2:20 PM EDTAssociated Problem(s): Shortness of breath Likely multifactorial, patient has a history of asthma and obesity. Previous smoker but quit 04/2022 - Echo and nuclear stress test to rule out cardiac etiology of shortness of breath. * Alea Juarez APRN - 12/13/2022 2:19 PM EDTAssociated Problem(s): Palpitations 2-day cardiac event [...] and echo. * Alea Juarez APRN - 12/13/2022 1:00 PM EDTAssociated Order(s): ECG 12 Lead Post-Procedure Diagnose(s): Palpitations Images from the original note were not included. [facility] Provider Note Date: 12/13/2022 Name: Neetu Doherty : 1965 PCP: Salima Gonzáles, DO Chief Complaint Patient presents with ??? Establish Care ??? Palpitations Subjective History of Present Illness Neetu Doherty is a 56 y.o. female with past medical history of hypertension, hypothyroidism, psoriatic arthritis, anxiety, diabetes, MAGDI and GERD who presents today for new patient evaluationfor palpitations, fatigue and chest pain. Patient reports daily palpitations and fast heart rate that she can feel radiating into her neck. Palpitations started approximately 2 months ago. She also reports occasional chest pain that she describes as a squeezing pain. Episodes last approximately 5-10 minutes and occur randomly. She also reports chronic shortness of breath. She has no past cardiac history. She has a history of MAGDI but has been unable to tolerate CPAP therapy due to the strap causing worsening migraines. She reports daily fatigue and no energy. No known family history of CAD buther father has a pacemaker. She had labs drawn recently with her primary care provider and a 2-day cardiac event monitor. Patient's average heart rate was 73 bpm. Tachycardia and supraventricular ectopic beats were noted noted but no other arrhythmias. No A-fib or flutter. No pauses or blocks. CBC, A1c, thyroid studies, CMP, lipid panel, and vitamin B12 and D reviewed. She also reports occasionallower extremity edema and mild dizziness but denies syncope. Patient is currently under a lot of stress and is having problems managing her anxiety. She is working with her PCP to get better control of anxiety. child monitor 11/20/2022-average heart rate 73 bpm, minimum 54 bpm and maximum 103 bpm. Tachycardia was present at with a 0.15% burden and a high heart rate of 129 bpm. 8 patient events were detected. SVT-run event was detected 1. Ventricular ectopic beats were 1 (0%) and supraventricular ectopic beats were 7 (0.01%). Reports Denies Chest Pain [x] [] Shortness of Air [x] [] Palpitations [x] [] Edema [x] [] Dizziness [x] [] Syncope [] [x] Allergies Allergen Reactions ??? Cefdinir Shortness Of Breath and Unknown (See Comments) ??? Morphine And Related Hallucinations Current Outpatient [...] MAY CAUSE DROWSINESS, Disp: , Rfl: ??? buPROPion SR (WELLBUTRIN SR) 150 MG 12 hr tablet, Take 1 tablet by mouth 2 (Two) Times a Day., Disp: , Rfl: ??? cyanocobalamin (VITAMIN B-12) 1000 MCG tablet, Take 1 tablet by mouth Daily., Disp: , Rfl: ??? cyclobenzaprine (FLEXERIL) 10 MG tablet, cyclobenzaprine 10 mg tablet, Disp: , Rfl: ??? Diclofenac Sodium (VOLTAREN) 1 % gel gel, Place 4 g on the skin as directed by provider 4 (Four) Times a Day., Disp: , Rfl: ??? Emgality 120 MG/ML [...] MIGRAINE, Disp: , Rfl: ??? pantoprazole (PROTONIX) 40 MG EC tablet, Take 1 tablet by mouth., Disp: , Rfl: ??? pregabalin (LYRICA) 150 MG capsule, Take 1 capsule by mouth 2 (Two) Times a Day., Disp: , Rfl: ??? Probiotic Product (Acidophilus Probiotic Blend) capsule, Take 1 capsule by mouth Daily., Disp: , Rfl: ??? simvastatin (ZOCOR) 5 MG tablet, simvastatin 5 mg tablet, Disp: , Rfl: ??? Skyrizi Pen 150 MG/ML solution auto-injector, , Disp: , Rfl: ??? valsartan (DIOVAN) 320 MG tablet, valsartan 320 mg tablet, Disp: , Rfl: Past Medical History: Diagnosis Date ??? Diabetes [...] Social History Socioeconomic History ??? Marital status: Tobacco Use ??? Smoking status: Every Day Packs/day: 0.50 Types: Cigarettes ??? Smokeless tobacco: Never Substance and Sexual Activity ??? Alcohol use: No ??? Drug use: No ??? Sexual activity: Defer Objective Vital Signs: BP 134/84 Pulse 61 Ht 157.5 cm (62 ) Wt 119 kg (262 lb) SpO2 98% BMI 47.92 kg/m?? Estimated body mass index is 47.92 kg/m?? as calculated from the following: Height as of this encounter: 157.5 cm (62 ). Weight as of this encounter: 119 kg (262 lb). Class 3 Severe Obesity (BMI >=40). Obesity-related health conditions include the following: obstructive sleep apnea and hypertension. Obesity is unchanged. BMI is is above average; BMI management plan is completed. We discussed portion control and increasing exercise. Physical Exam Constitutional: Appearance: Normal appearance. She is well-developed. HENT: Head: Normocephalic and atraumatic. Eyes: Pupils: Pupils are equal, round, and reactive to light. Neck: Vascular: No carotid bruit. Cardiovascular: Rate and Rhythm: Normal rate and regular rhythm. Pulses: Normal pulses. Heart sounds: Normal heart sounds. No murmur [...] content normal. Cognition and Memory: Memory normal. Labs reviewed: CBC, A1c, A1c, thyroid studies, CMP, lipid panel, and vitamin B12 and D. Reviewed. ECG 12 Lead Date/Time: 12/13/2022 1:08 PM Performed by: Alea Juarez APRN Authorized by: Alea Juarez APRN Comparison: not compared with previous ECG Previous ECG: no previous ECG available Rhythm: sinus bradycardia Rate: bradycardic BPM: 57 QRS axis: normal Other findings: low voltage Clinical impression: abnormal EKG Clinical impression comment: consistent with pulmonary disease Assessment and Plan Diagnoses and all orders for this visit: 1. Palpitations (Primary) Assessment & Plan: 2-day cardiac event monitor [...] symptoms persist after stress test and echo. Orders: - ECG 12 Lead - Adult Transthoracic Echo Complete W/ Cont if Necessary Per Protocol; Future 2. Shortness of breath Assessment & Plan: Likely multifactorial, patient has a history of asthma and obesity. Previous smoker but quit 04/2022 - Echo and nuclear stress test to rule out cardiac etiology of shortness of breath. Orders: - Adult Transthoracic Echo Complete W/ Cont if Necessary Per Protocol; Future - Stress Test With Myocardial Perfusion One Day; Future 3. Precordial chest pain Assessment & Plan: Nuclear stress test for further evaluation. Orders: - Adult Transthoracic Echo Complete W/ Cont if Necessary Per Protocol; Future - Stress Test With Myocardial Perfusion One Day; Future 4. MAGDI (obstructive sleep apnea) Assessment & Plan: Diagnosed with MAGDI years ago but has been unable to tolerate PAP therapy. Encouraged patient to restart PAP therapy and contact [employer] to find a better mask that does not cause migraines. Recommendations: ER if symptoms increase, Report if any new/changing symptoms immediately, and Limit caffeine Follow Up Return in about 4 weeks (around 01/10/2023) for cardiac testing results. Patient was given instructions and counseling regarding her condition or for health maintenance advice. Please see specific information pulled into the AVS if appropriate. documented in this encounter Plan of Treatment Not on file documented as of this encounter Procedures Procedure Name Priority Date/Time Associated Diagnosis Comments ECG 12-LEAD Routine 12/13/2022 1:08 PM EDT Palpitations documented in this encounter [...] Juarez APRN CV ECHO ORDERABLES Final Result * Stress Test With Myocardial Perfusion One Day (12/26/2022 6:22 PM EDT) Anatomical Region Laterality Modality Other us Alea Juarez APRN CV STRESS ORDERABLES Fin al Result * ECG 12-LEAD (12/13/2022 1:08 PM EDT) Narrative Tereza Crum RegSched Rep - 12/13/2022 1:08 PM EDT Alea Juarez APRN ? 12/13/2022 ??2:23 PM ECG 12 Lead Date/Time: 12/13/2022 1:08 PM Performed by: Alea Juarez APRN Authorized by: Alea Juarez APRN Comparison: not compared with previous ECG Previous ECG: no previous ECG available Rhythm: sinus bradycardia Rate: bradycardic BPM: 57 QRS axis: normal Other findings: low voltage Clinical impression: abnormal EKG Clinical impression comment: consistent with pulmonary disease Procedure Note Alea Juarez APRN - 12/13/2022 1:00 PM EDT Images from the original note were not included. [facility] Provider Note Date: 12/13/2022 Name: Neetu Doherty : 1965 PCP: Salima Gonzáles, DO Chief Complaint Patient presents with ? ? Establish Care ? ? Palpitations Subjective History of Present Illness Neetu Doherty is a 56 y.o. female with past medical history ofhypertension, hypothyroidism, psoriatic arthritis, anxiety, diabetes, OSAand GERD who presents today for new patient evaluation for palpitations,fatigue and chest pain. Patient reports daily palpitations and fast heartrate that she can feel radiating into her neck. Palpitations startedapproximately 2 months ago. She also reports occasional chest pain thatshe describes as a squeezing pain. Episodes last approximately 5-10minutes and occur randomly. She also reports chronic shortness of breath.She has no past cardiac history. She has a history of MAGDI but has beenunable to tolerate CPAP therapy due to the strap causing worseningmigraines. She reports daily fatigue and no energy. No known familyhistory of CAD but her father has a pacemaker. She had labs drawnrecently with her primary care provider and a 2-day cardiac event monitor.Patient's average heart rate was 73 bpm. Tachycardia andsupraventricular ectopic beats were noted noted but no other arrhythmias.No A-fib or flutter. No pauses or blocks. CBC, A1c, thyroid studies, CMP,lipid panel, and vitamin B12 and D reviewed. She also reports occasionallower extremity edema and mild dizziness but denies syncope. Patient iscurrently under a lot of stress and is having problems managing heranxiety. She is working with her PCP to get better control of anxiety. child monitor 11/20/2022-average heart rate 73 bpm, minimum 54 bpm andmaximum 103 bpm. Tachycardia was present at with a 0.15% burden and ahigh heart rate of 129 bpm. 8 patient events were detected. SVT-runevent was detected 1. Ventricular ectopic beats were 1 (0%) andsupraventricular ectopic beats were 7 (0.01%). Reports Denies Chest Pain [x] [] Shortness of Air [x] [] Palpitations [x] [] Edema [x] [] Dizziness [x] [] Syncope [] [x] Allergies Allergen Reactions ? ? Cefdinir Shortness Of Breath and Unknown (See Comments) ? ? Morphine And Related Hallucinations Current Outpatient Medications: ? ? albuterol (PROVENTIL) (2.5 MG/3ML) 0.083% nebulizer solution, Take 2.5mg by nebulization Every 4 (Four) Hours As Needed for Wheezing., Disp: ,Rfl: ? ? ascorbic acid (VITAMIN C) 250 MG tablet, Take 1 tablet by mouth Daily.,Disp: , Rfl: ? ? baclofen (LIORESAL) 10 MG tablet, TAKE ONE TABLET BY MOUTH TWICE DAILYMAY CAUSE DROWSINESS, Disp: , Rfl: ? ? buPROPion SR (WELLBUTRIN SR) 150 MG 12 hr tablet, Take 1 tablet bymouth 2 (Two) Times a Day., Disp: , Rfl: ? ? cyanocobalamin (VITAMIN B-12) 1000 MCG tablet, Take 1 tablet by mouthDaily., Disp: , Rfl: ? ? cyclobenzaprine (FLEXERIL) 10 MG tablet, cyclobenzaprine 10 mg tablet,Disp: , Rfl: ? ? Diclofenac Sodium (VOLTAREN) 1 % gel gel, Place 4 g on the skin asdirected by provider 4 (Four) Times a Day., Disp: , Rfl: ? ? Emgality 120 MG/ML auto-injector pen, INJECT 1 ML (120 MG)SUBCUTANEOUSLY ONCE a MONTH, Disp: , Rfl: ? ? EPINEPHrine (EPIPEN) 0.3 MG/0.3ML solution auto-injector injection,epinephrine 0.3 mg/0.3 mL injection, auto-injector, Disp: , Rfl: ? ? ferrous sulfate 325 (65 FE) MG tablet, Take 1 tablet by mouth Daily.,Disp: , Rfl: ? ? FLUoxetine (PROzac) 40 MG capsule, Take 1 capsule by mouth Daily.,Disp: , Rfl: ? ? hydroCHLOROthiazide (HYDRODIURIL) 25 MG tablet, Take 1 tablet by mouthDaily., Disp: , Rfl: ? ? hydrOXYzine pamoate (VISTARIL) 25 MG capsule, Take 1 capsule by mouth.,Disp: , Rfl: ? ? Januvia 100 MG tablet, Januvia 100 mg tablet, Disp: , Rfl: ? ? levothyroxine (SYNTHROID, LEVOTHROID) 125 MCG tablet, Take 1 tablet bymouth Daily., Disp: , Rfl: ? ? loratadine (CLARITIN) 10 MG tablet, Take 1 tablet by mouth Daily.,Disp: , Rfl: ? ? montelukast (SINGULAIR) 10 MG tablet, Take 1 tablet by mouth EveryNight., Disp: , Rfl: ? ? multivitamin with minerals tablet tablet, Take 1 tablet by mouthDaily., Disp: , Rfl: ? ? Nurtec 75 MG dispersible tablet, DISSOLVE ONE TABLET in MOUTH ASDIRECTED NEEDED FOR MIGRAINE, Disp: , Rfl: ? ? pantoprazole (PROTONIX) 40 MG EC tablet, Take 1 tablet by mouth., Disp:, Rfl: ? ? pregabalin (LYRICA) 150 MG capsule, Take 1 capsule by mouth 2 (Two)Times a Day., Disp: , Rfl: ? ? Probiotic Product (Acidophilus Probiotic Blend) capsule, Take 1 capsuleby mouth Daily., Disp: , Rfl: ? ? simvastatin (ZOCOR) 5 MG tablet, simvastatin 5 mg tablet, Disp: , Rfl: ? ? Skyrizi Pen 150 MG/ML solution auto-injector, , Disp: , Rfl: ? ? valsartan (DIOVAN) 320 MG tablet, valsartan 320 mg tablet, Disp: , Rfl: Past Medical History: Diagnosis Date ? ? Diabetes ? ? Hypertension Past Surgical History: Procedure Laterality Date ? ? SECTION ? ? CYST REMOVAL ? ? GALLBLADDER SURGERY ? ? GANGLION CYST EXCISION ? ? GASTRIC BYPASS ? ? HEEL SPUR SURGERY Left ? ? HYSTERECTOMY ? ? KIDNEY STONE SURGERY ? ? KNEE SURGERY Bilateral ? ? TONSILLECTOMY Family History Problem Relation Age of Onset ? ? Hypertension Mother ? ? Diabetes Mother ? ? Hypertension Father ? ? Diabetes Father Social History Socioeconomic History ? ? Marital status: Tobacco Use ? ? Smoking status: Every Day Packs/day: 0.50 Types: Cigarettes ? ? Smokeless tobacco: Never Substance and Sexual Activity ? ? Alcohol use: No ? ? Drug use: No ? ? Sexual activity: Defer Objective Vital Signs: BP 134/84 Pulse 61 Ht 157.5 cm (62 ) Wt 119 kg (262 lb) [id number]% BMI 47.92 kg/m?? Estimated body mass index is 47.92 kg/m?? as calculated from thefollowing: Height as of this encounter: 157.5 cm (62 ). Weight as of this encounter: 119 kg (262 lb). Class 3 Severe Obesity (BMI >=40). Obesity-related health conditionsinclude the following: obstructive sleep apnea and hypertension. Obesityis unchanged. BMI is is above average; BMI management plan is completed.We discussed portion control and increasing exercise. Physical Exam Constitutional: Appearance: Normal appearance. She is well-developed. HENT: Head: Normocephalic and atraumatic. Eyes: Pupils: Pupils are equal, round, and reactive to light. Neck: Vascular: No carotid bruit. Cardiovascular: Rate and Rhythm: Normal rate and regular rhythm. Pulses: Normal pulses. Heart sounds: Normal heart sounds. No murmur [...] content normal. Cognition and Memory: Memory normal. Labs reviewed: CBC, A1c, A1c, thyroid studies, CMP, lipid panel, andvitamin B12 and D. Reviewed. ECG 12 Lead Date/Time: 12/13/2022 1:08 PM Performed by: Alea Juarez APRN Authorized by: Alea Juarez APRN Comparison: not compared with previous ECG Previous ECG: no previous ECG available Rhythm: sinus bradycardia Rate: bradycardic BPM: 57 QRS axis: normal Other findings: low voltage Clinical impression: abnormal EKG Clinical impression comment: consistent with pulmonary disease Assessment and Plan Diagnoses and all orders for this visit: 1. Palpitations (Primary) Assessment & Plan: 2-day cardiac event monitor was completed by PCP on 11/20/2022- averageheart rate was 73 bpm. Tachycardia and supraventricular ectopic beatswere noted noted but no other arrhythmias. No A-fib or flutter. Nopauses or blocks. Recent labs reviewed and unremarkable. -Limit caffeine intake. - Consider repeat Holter monitor for a longer duration if symptoms persistafter stress test and echo. Orders: - ECG 12 Lead - Adult Transthoracic Echo Complete W/ Cont if Necessary Per Protocol;Future 2. Shortness of breath Assessment & Plan: Likely multifactorial, patient has a history of asthma and obesity.Previous smoker but quit 04/2022 - Echo and nuclear stress test to rule out cardiac etiology of shortnessof breath. Orders: - Adult Transthoracic Echo Complete W/ Cont if Necessary Per Protocol;Future - Stress Test With Myocardial Perfusion One Day; Future 3. Precordial chest pain Assessment & Plan: Nuclear stress test for further evaluation. Orders: - Adult Transthoracic Echo Complete W/ Cont if Necessary Per Protocol;Future - Stress Test With Myocardial Perfusion One Day; Future 4. MAGDI (obstructive sleep apnea) Assessment & Plan: Diagnosed with MAGDI years ago but has been unable to tolerate PAP therapy.Encouraged patient to restart PAP therapy and contact [employer] to finda better mask that does not cause migraines. Recommendations: ER if symptoms increase, Report if any new/changingsymptoms immediately, and Limit caffeine Follow Up Return in about 4 weeks (around 01/10/2023) for cardiac testing results. Patient was given instructions and counseling regarding her condition orfor health maintenance advice. Please see specific information pulled intothe AVS if appropriate. us Alea Juarez APRN ECG ORDERABLES Final Re sult documented in this encounter Visit Diagnoses Diagnosis Palpitations- Primary Shortness of breath Precordial chest pain Precordial pain MAGDI (obstructive sleep apnea) Obstructive sleep apnea (adult) (pediatric) Precordial chest pain Precordial pain Shortness of breath Palpitations documented in this encounter Care Teams Waste And Batting Waste Chopper Relationship Specialty Start Date End Date Salima Gonzáles DO [facility] [place] [address] PCP - General Family Medicine 02/21/17 documented as of this encounter
--- OUTSIDE RECORDS SUMMARY | 2024-04-06 21:56 | XMS_ITS | Encounter Summary ---
Author Organization [employer] [facility] Address [address] [place] [address] Care Team Providers Care Nursing Officer Name Role Phone Salima Gonzáles DO Primary Care Provider [phone] Encounter Details Date Type Department Care Team (Late st Contact Info) Description 10/04/2020 Transcribed Document [facility] [place] [address] [place] [address] ProviderQuincy MD [address] [place] [id number] Social History Tobacco Use Types Packs/Day Years Used Date Smoking Tobacco: Never Assessed Comments Unknown Sex and Gender Information Value Date Recorded Sex Assigned at Not on file Legal Sex Female 2:54 PM CDT Gender Identity Not on file Sexual Orientation Not on file documented as of this encounter Miscellaneous Notes * Cerner Conversion Note - Quincy ProviderMD - 10/04/2020 5:00 AM CDT Chart Check - Review Order Profile Entered On: 10/04/2020 4:12 EDT Performed On: 10/04/2020 5:00 EDT by Lj Villarreal RN Chart Check Powerplans Initiated/Discontinued as Appropriate : Yes All Active Orders Reviewed : Yes Lj Villarreal RN - 10/04/2020 4:12 EDT documented in this encounter Plan of Treatment Not on file documented as of this encounter Visit Diagnoses Not on filedocumented in this encounter Care Teams Nursing Officer Relationship Specialty Start Date End Date Salima Gonzáles DO [facility] [address] [place] [address] PCP - General Family Medicine 02/09/23 documented as of this encounter
--- OUTSIDE RECORDS SUMMARY | 2024-04-06 21:56 | XMS_ITS | Encounter Summary ---
Author Organization [employer] Address [address] [place] [address] Care Team Providers Care [employer] Name Role Phone Unavailable Primary Care Provider Unavailabl e Encounter Details Date Type Department Care Team (Late st Contact Info) Description 10/04/2020 Historic Encounter [address] [address] ProviderLianne Historical Social History Tobacco Use Types Packs/Day [...] Procedure Name Priority Date/Time Associated Diagnosis Comments PT/INR PROTHROMBIN TIME ([facility] DATA CONV) Routine 10/04/2020 6:54 AM EDT documented in this encounter Results * PT/INR PROTHROMBIN TIME ([facility] DATA CONV) (10/04/2020 6:54 AM EDT) PT 10.2 9.2 - 12.0 Second(s) 10/04/2020 11:38 AM EDT INR 1.0 0.9 - 1.2 10/04/2020 11:38 AM EDT Comment: DIAGNOSIS ?THERAPEUTIC RANGE a) Primary and secondary prevention of ?2.0-3.0 venous thrombosis b) Active venous thrombosis, pulmonary ?2.0-4.0 embolism and prevention of recurrent venous thrombosis c) Prevention of arterial thromboembolism ? 3.0-4.5 including patients with mechanical heart valves Blood 10/04/2020 6:54 AM EDT 10/04/2020 11:13 AM EDT [facility] Historical Provider LAB BLOOD ORDERABLES Fi nal Result Performing Organization Address City/State/[facility] Co de Phone Number [facility] [address] [phone] documented in this encounter Visit Diagnoses Not on filedocumented in this encounter
--- OUTSIDE RECORDS SUMMARY | 2024-04-06 21:56 | XMS_ITS | Encounter Summary ---
Author Organization [employer] Address [address] [place] [address] Care Team Providers Care Health Education Director Name Role Phone Salima Gonzáles Primary Care Provider [phone] Encounter Details Date Type Department Care Team (Late st Contact Info) Description 10/05/2020 Transcribed Document [facility] [address] [place] [id number] ProviderQuincy MD [address] [place] [id number] Social History Tobacco Use Types Packs/Day Years Used Date Smoking Tobacco: Never Assessed Comments Unknown Sex and Gender Information Value Date Recorded Sex Assigned at Not on file Legal Sex Female 2:54 PM CDT Gender Identity Not on file Sexual Orientation Not on file documented as of this encounter Miscellaneous Notes * Cerner Conversion Note - Quincy ProviderMD - 10/05/2020 4:31 PM CDT Nursing Discharge Summary Entered On: 10/05/2020 16:32 EDT Performed On: 10/05/2020 16:31 EDT by Jocelyn Bates Virtual RN Discharge Documentation Patient Disposition, General : Discharge Discharge To : Home with ambulatory/outpatient follow-up Mode Of Departure, General Discharge : Private vehicle, Wheelchair Accompanied By, Discharge : Spouse Discharge Instructions Reviewed With, Opportunity For Questions Given : Patient, Spouse Patient Education Completed : Yes Teaching Method : Explanation, Printed materials Teaching Evaluation : Verbalizes understanding Education Comment : meds, follow ups, conditions/procedures Jocelyn Bates Virtual RN - 10/05/2020 16:31 EDT Electronically signed by Alec Barahona Conversion Residential Real Estate Assistant Cerner at 08/23/2022 11:13 AM CDT documented in this encounter Plan of Treatment Not on file documented as of this encounter Visit Diagnoses Not on filedocumented in this encounter Care Teams Health Education Director Relationship Specialty Start Date End Date Salima Gonzáles, [address] [facility] [address] [place] [address] PCP - General Family Medicine 02/09/23 documented as of this encounter
--- OUTSIDE RECORDS SUMMARY | 2024-04-06 21:57 | XMS_ITS | Encounter Summary ---
Author Organization [employer] Address [address] [place] [address] Care Team Providers Care Correctional Cook Name Role Phone Salima Gonzáles Primary Care Provider [phone] Encounter Details Date Type Department Care Team (Late st Contact Info) Description 10/08/2019 Transcribed Document [facility] [place] [facility] [place] [address] ProviderQuincy MD [address] [place] [id number] Social History Tobacco Use Types Packs/Day Years Used Date Smoking Tobacco: Never Assessed Comments Unknown Sex and Gender Information Value Date Recorded Sex Assigned at Not on file Legal Sex Female 2:54 PM CDT Gender Identity Not on file Sexual Orientation Not on file documented as of this encounter Miscellaneous Notes * Cerner Conversion Note - Quincy Kate MD - 10/08/2019 10:35 AM CDT [facility] [place] [address] AMBIKA PIERRE :1965 Visit Time:10/08/2019 What to do next Instructions From Your Care Team Diet after Discharge: Resume usual diet as tolerated, Do not drink any alcoholic beverages, Drink at least 8-10 glasses of water per day Fluid Restriction after Discharge: _ Activity after Discharge: _, Rest and relax today, No strenuous activity Driving after Discharge: Do not drive May Return to Work/School: Tomorrow Showering/Bathing: May shower, _ Notify Provider of: Any questions or concerns Follow-Up Appointments Follow Up with WARREN MANRIQUE MD When In 1 month , only if needed Comments see procedure report for recommendations, follow up in Dr [place] office, November 09 at 11:00am Where: [address] [facility] [address] [place] [id number]- Medications What How Much When Instructions Next Dose buPROPion (Wellbutrin SR 150 mg/ 12 hours oral tablet, extended release) 1 Tablet(s) Oral Two Times A Day DULoxetine (DULoxetine 40 mg oral delayed release capsule) 1 Capsule(s) Oral Every Day levothyroxine (Synthroid) 1.25 mg daily lisinopril (lisinopril 30 mg oral tablet) 1 Tablet(s) Oral Every Day loratadine (Claritin) 10mg daily losartan (losartan 100 mg oral tablet) 1 Tablet(s) Oral Every Day montelukast (Singulair 4 mg oral tablet, chewable) 1 Tablet(s) Chew Every Day pregabalin (Lyrica) 150mg 2 times a day simvastatin (simvastatin 10 mg oral tablet) 1 Tablet(s) Oral At Bedtime sitagliptin (Januvia) 100mg daily Take your medications faithfully. Do NOT skip [...] Please dispose of unused and medications per pharmacy guidance. Education Materials High-Fiber Diet Fiber, also called dietary fiber, is a type of carbohydrate that is found in fruits, vegetables, whole grains, and beans. A high-fiber diet can have many health benefits. Your health care provider may recommend a high-fiber diet to help: ??? Prevent constipation. Fiber can make your bowel movements more regular. ??? Lower your cholesterol. ??? Relieve the following conditions: ? Swelling of veins in the anus (hemorrhoids). ? Swelling and irritation (inflammation) of specific areas of the digestive tract (uncomplicated diverticulosis). ? A problem of the large intestine (colon) that sometimes causes pain and diarrhea (irritable bowel syndrome, IBS). ??? Prevent overeating as part of a weight-loss plan. ??? Prevent heart disease, type 2 diabetes, and certain cancers. What is my plan? The recommended daily fiber intake in grams (g) includes: ??? 38 g for men age 50 or younger. ??? 30 g for men over age 50. ??? 25 g for women age 50 or younger. ??? 21 g for women over age 50. You can get the recommended daily intake of dietary fiber by: ??? Eating a variety of fruits, vegetables, grains, and beans. ??? Taking a fiber supplement, if it is not possible to get enough fiber through your diet. What do I need to know about a high-fiber diet? It is better to get fiber through food sources rather than from fiber supplements. There is not a lot of research about how effective supplements are. ??? Always check the fiber content on the nutrition facts label of any prepackaged food. Look for foods that contain 5 g of fiber or more per serving. ??? Talk with a diet and medical authorization specialist (dietitian) if you have questions about specific foods that are recommended or not recommended for your medical condition, especially if those foods are not listed below. ??? Gradually increase how much fiber you consume. If you increase your intake of dietary fiber too quickly, you may have bloating, cramping, or gas. ??? Drink plenty of water. Water helps you to digest fiber. What are tips for following this plan? Eat a wide variety of high-fiber foods. ??? Make sure that half of the grains that you eat each day are whole grains. ??? Eat breads and cereals that are made with whole-grain flour instead of refined flour or white flour. ??? Eat brown rice, bulgur wheat, or millet instead of white rice. ??? Start the day with a breakfast that is high in fiber, such as a cereal that contains 5 g of fiber or more per serving. ??? Use beans in place of meat in soups, salads, and pasta dishes. ??? Eat high-fiber snacks, such as berries, raw vegetables, nuts, and popcorn. ??? Choose whole fruits and vegetables instead of processed forms like juice or sauce. What foods can I eat? Fruits Berries. Pears. Apples. Oranges. Avocado. Prunes and raisins. Dried figs. Vegetables Sweet potatoes. Spinach. Kale. Artichokes. Cabbage. Broccoli. Cauliflower. Green peas. Carrots. Squash. Grains Whole-grain breads. Multigrain cereal. Oats and oatmeal. Brown rice. Barley. Bulgur wheat. Millet. Quinoa. Bran muffins. Popcorn. [place] wafer crackers. Meats and other proteins [place], kidney, and cox beans. Soybeans. Split peas. Lentils. Nuts and seeds. Dairy Fiber-fortified yogurt. Beverages Fiber-fortified soy milk. Fiber-fortified orange juice. Other foods Fiber bars. The items listed above may not be a complete list of recommended foods and beverages. Contact a dietitian for more options. What foods are not recommended? Fruits Fruit juice. Cooked, strained fruit. Vegetables Fried potatoes. Canned vegetables. Well-cooked vegetables. Grains White bread. Pasta made with refined flour. White rice. Meats and other proteins Fatty cuts of meat. Fried chicken or fried fish. Dairy Milk. Yogurt. Cream cheese. Sour cream. Fats and oils [place]. Beverages Soft drinks. Other foods Cakes and pastries. The items listed above may not be a complete list of foods and beverages to avoid. Contact a dietitian for more information. Summary ??? Fiber is a type of carbohydrate. It is found in fruits, vegetables, whole grains, and beans. ??? There are many health benefits of eating a high-fiber diet, such as preventing constipation, lowering blood cholesterol, helping with weight loss, and reducing your risk of heart disease, diabetes, and certain cancers. ??? Gradually increase your intake of fiber. Increasing too fast can result in cramping, bloating, and gas. Drink plenty of water while you increase your fiber. ??? The best sources of fiber include whole fruits and vegetables, whole grains, nuts, seeds, and beans. This information is not intended to replace advice given to you by your health care provider. Make sure you discuss any questions you have with your health care provider. Document Released: 04/23/2006 Document Revised: 02/25/2018 Document Reviewed: 02/25/2018 [employer] Patient Education ?? 2019 [employer]. Gastritis, Adult Gastritis is swelling (inflammation) of the stomach. Gastritis can develop quickly (acute). It can also develop slowly over time (chronic). It is important to get help for this condition. If you do not get help, your stomach can bleed, and you can get sores (ulcers) in your stomach. What are the causes? This condition may be caused by: ??? Germs that get to your stomach. ??? Drinking too much alcohol. ??? Medicines you are taking. ??? Too much acid in the stomach. ??? A disease of the intestines or stomach. ??? Stress. ??? An allergic reaction. ??? Crohn's disease. ??? Some cancer treatments (radiation). Sometimes the cause of this condition is not known. What are the signs or symptoms? Symptoms of this condition include: ??? Pain in your stomach. ??? A burning feeling in your stomach. ??? Feeling sick to your stomach (nauseous). ??? Throwing up (vomiting). ??? Feeling too full after you eat. ??? Weight loss. ??? Bad breath. ??? Throwing up blood. ??? Blood in your poop (stool). How is this diagnosed? This condition may be diagnosed with: ??? Your medical history and symptoms. ??? A physical exam. ??? Tests. These can include: ? Blood tests. ? Stool tests. ? A procedure to look inside your stomach (upper endoscopy). ? A test in which a sample of tissue is taken for testing (biopsy). How is this treated? Treatment for this condition depends on what caused it. You may be given: ??? Antibiotic medicine, if your condition was caused by germs. ??? H2 blockers and similar medicines, if your condition was caused by too much acid. Follow these instructions at home: Medicines ??? Take cwoo-ltk-igmipvg and prescription medicines only as told by your doctor. ??? If you were prescribed an antibiotic medicine, take it as told by your doctor. Do not stop taking it even if you start to feel better. Eating and drinking ??? Eat small meals often, instead of large meals. ??? Avoid foods and drinks that make your symptoms worse. ??? Drink enough fluid to keep your pee (urine) pale yellow. Alcohol use ??? Do not drink alcohol if: ? Your doctor tells you not to drink. ? You are , may be , or are planning to become . ??? If you drink alcohol: ? Limit your use to: ? 0???1 drink a day for women. ? 0???2 drinks a day for men. ? Be aware of how much alcohol is in your drink. In the [place] one drink equals one 12 oz bottle of beer (355 mL), one 5 oz glass of wine (148 mL), or one 1?? oz glass of hard liquor (44 mL). General instructions ??? Talk with your doctor about ways to manage stress. You can exercise or do deep breathing, meditation, or yoga. ??? Do not smoke or use products that have nicotine or tobacco. If you need help quitting, ask your doctor. ??? Keep all follow-up visits as told by your doctor. This is important. Contact a doctor if: ??? Your symptoms get worse. ??? Your symptoms go away and then come back. Get help right away if: ??? You throw up blood or something that looks like coffee grounds. ??? You have black or dark red poop. ??? You throw up any time you try to drink fluids. ??? Your stomach pain gets worse. ??? You have a fever. ??? You do not feel better after one week. Summary ??? Gastritis is swelling (inflammation) of the stomach. ??? You must get help for this condition. If you do not get help, your stomach can bleed, and you can get sores (ulcers). ??? This condition is diagnosed with medical history, physical exam, or tests. ??? You can be treated with medicines for germs or medicines to block too much acid in your stomach. This information is not intended to replace advice given to you by your health care provider. Make sure you discuss any questions you have with your health care provider. Document Released: 10/09/2008 Document Revised: 09/10/2018 Document Reviewed: 09/10/2018 [employer] Patient Education ?? 2019 [employer]. Colitis Colitis is inflammation of the colon. Colitis may last a short time (be acute), or it may last a long time (become chronic). What are the causes? This condition may be caused by: ??? Viruses. ??? Bacteria. ??? Reaction to medicine. ??? Certain autoimmune diseases such as Crohn's disease or ulcerative colitis. ??? Radiation treatment. ??? Decreased blood flow to the bowel (ischemia). What are the signs or symptoms? Symptoms of this condition include: ??? Watery diarrhea. ??? Passing bloody or tarry stool. ??? Pain. ??? Fever. ??? Vomiting. ??? Tiredness (fatigue). ??? Weight loss. ??? Bloating. ??? Abdominal pain. ??? Having fewer bowel movements than usual. ??? A strong and sudden urge to have a bowel movement. ??? Feeling like the bowel is not empty after a bowel movement. How is this diagnosed? This condition is diagnosed with a stool test or a blood test. You may also have other tests, such as: ??? X-rays. ??? CT scan. ??? Colonoscopy. ??? Endoscopy. ??? Biopsy. How is this treated? Treatment for this condition depends on the cause. The condition may be treated by: ??? Resting the bowel. This involves not eating or drinking for a period of time. ??? Fluids that are given through an IV. ??? Medicine for pain and diarrhea. ??? Antibiotic medicines. ??? Cortisone medicines. ??? Surgery. Follow these instructions at home: Eating and drinking ??? Follow instructions from your health care provider about eating or drinking restrictions. ??? Drink enough fluid to keep your urine pale yellow. ??? Work with a dietitian to determine which foods cause your condition to flare up. ??? Avoid foods that cause flare-ups. ??? Eat a well-balanced diet. General instructions ??? If you were prescribed an antibiotic medicine, take it as told by your health care provider. Do not stop taking the antibiotic even if you start to feel better. ??? Take ylog-rxh-idvpewo and prescription medicines only as told by your health care provider. ??? Keep all follow-up visits as told by your health care provider. This is important. Contact a health care provider if: ??? Your symptoms do not go away. ??? You develop new symptoms. Get help right away if you: ??? Have a fever that does not go away with treatment. ??? Develop chills. ??? Have extreme weakness, fainting, or dehydration. ??? Have repeated vomiting. ??? Develop severe pain in your abdomen. ??? Pass bloody or tarry stool. Summary ??? Colitis is inflammation of the colon. Colitis may last a short time (be acute), or it may last a long time (become chronic). ??? Treatment for this condition depends on the cause and may include resting the bowel, taking medicines, or having surgery. ??? If you were prescribed an antibiotic medicine, take it as told by your health care provider. Do not stop taking the antibiotic even if you start to feel better. ??? Get help right away if you develop severe pain in your abdomen. ??? Keep all follow-up visits as told by your health care provider. This is important. This information is not intended to replace advice given to you by your health care provider. Make sure you discuss any questions you have with your health care provider. Document Released: 05/31/2005 Document Revised: 10/24/2018 Document Reviewed: 10/24/2018 [employer] Patient Education ?? 2019 [employer] Hemorrhoids Hemorrhoids are swollen veins that may develop: ??? In the butt (rectum). These are called internal hemorrhoids. ??? Around the opening of the butt (anus). These are called external hemorrhoids. Hemorrhoids can cause pain, itching, or bleeding. Most of the time, they do not cause serious problems. They usually get better with diet changes, lifestyle changes, and other home treatments. What are the causes? This condition may be caused by: ??? Having trouble pooping (constipation). ??? Pushing hard (straining) to poop. ??? Watery poop (diarrhea). ??? . ??? Being very overweight (obese). ??? Sitting for long periods of time. ??? Heavy lifting or other activity that causes you to strain. ??? Anal sex. ??? Riding a bike for a long period of time. What are the signs or symptoms? Symptoms of this condition include: ??? Pain. ??? Itching or soreness in the butt. ??? Bleeding from the butt. ??? Leaking poop. ??? Swelling in the area. ??? One or more lumps around the opening of your butt. How is this diagnosed? A doctor can often diagnose this condition by looking at the affected area. The doctor may also: ??? Do an exam that involves feeling the area with a gloved hand (digital rectal exam). ??? Examine the area inside your butt using a small tube (anoscope). ??? Order blood tests. This may be done if you have lost a lot of blood. ??? Have you get a test that involves looking inside the colon using a flexible tube with a camera on the end (sigmoidoscopy or colonoscopy). How is this treated? This condition can usually be treated at home. Your doctor may tell you to change what you eat, make lifestyle changes, or try home treatments. If these do not help, procedures can be done to remove the hemorrhoids or make them smaller. These may involve: ??? Placing rubber bands at the base of the hemorrhoids to cut off their blood supply. ??? Injecting medicine into the hemorrhoids to shrink them. ??? Shining a type of light energy onto the hemorrhoids to cause them to fall off. ??? Doing surgery to remove the hemorrhoids or cut off their blood supply. Follow these instructions at home: Eating and drinking ??? Eat foods that have a lot of fiber in them. These include whole grains, beans, nuts, fruits, and vegetables. ??? Ask your doctor about taking products that have added fiber (fibersupplements). ??? Reduce the amount of fat in your diet. You can do this by: ? Eating low-fat dairy products. ? Eating less red meat. ? Avoiding processed foods. ??? Drink enough fluid to keep your pee (urine) pale yellow. Managing pain and swelling ??? Take a warm-water bath (sitz bath) for 20 minutes to ease pain. Do this 3???4 times a day. You may do this in a bathtub or using a portable sitz bath that fits over the toilet. ??? If told, put ice on the painful area. It may be helpful to use ice between your warm baths. ? Put ice in a plastic bag. ? Place a towel between your skin and the bag. ? Leave the ice on for 20 minutes, 2???3 times a day. General instructions ??? Take gsml-uuk-deyuams and prescription medicines only as told by your doctor. ? Medicated creams and medicines may be used as told. ??? Exercise often. Ask your doctor how much and what kind of exercise is best for you. ??? Go to the bathroom when you have the urge to poop. Do not wait. ??? Avoid pushing too hard when you poop. ??? Keep your butt dry and clean. Use wet toilet paper or moist towelettes after pooping. ??? Do not sit on the toilet for a long time. ??? Keep all follow-up visits as told by your doctor. This is important. Contact a doctor if you: ??? Have pain and swelling that do not get better with treatment or medicine. ??? Have trouble pooping. ??? Cannot poop. ??? Have pain or swelling outside the area of the hemorrhoids. Get help right away if you have: ??? Bleeding that will not stop. Summary ??? Hemorrhoids are swollen veins in the butt or around the opening of the butt. ??? They can cause pain, itching, or bleeding. ??? Eat foods that have a lot of fiber in them. These include whole grains, beans, nuts, fruits, and vegetables. ??? Take a warm-water bath (sitz bath) for 20 minutes to ease pain. Do this 3???4 times a day. This information is not intended to replace advice given to you by your health care provider. Make sure you discuss any questions you have with your health care provider. Document Released: 01/30/2009 Document Revised: 09/12/2018 Document Reviewed: 09/12/2018 [employer] Patient Education ?? 2019 [employer]. Colonoscopy, Adult, Care After This sheet gives you information about how to care for yourself after your procedure. Your doctor may also give you more specific instructions. If you have problems or questions, call your doctor. What can I expect after the procedure? After the procedure, it is common to have: ??? A small amount of blood in your poop for 24 hours. ??? Some gas. ??? Mild cramping or bloating in your belly. Follow these instructions at home: General instructions ??? For the first 24 hours after the procedure: ? Do not drive or use machinery. ? Do not sign important documents. ? Do not drink alcohol. ? Do your daily activities more slowly than normal. ? Eat foods that are soft and easy to digest. ??? Take heoo-dgy-rbwuspo or prescription medicines only as told by your doctor. To help cramping and bloating: ??? Try walking around. ??? Put heat on your belly (abdomen) as told by your doctor. Use a heat source that your doctor recommends, such as a moist heat pack or a heating pad. ? Put a towel between your skin and the heat source. ? Leave the heat on for 20???30 minutes. ? Remove the heat if your skin turns bright red. This is especially important if you cannot feel pain, heat, or cold. You can get burned. Eating and drinking ??? Drink enough fluid to keep your pee (urine) clear or pale yellow. ??? Return to your normal diet as told by your doctor. Avoid heavy or fried foods that are hard to digest. ??? Avoid drinking alcohol for as long as told by your doctor. Contact a doctor if: ??? You have blood in your poop (stool) 2???3 days after the procedure. Get help right away if: ??? You have more than a small amount of blood in your poop. ??? You see large clumps of tissue (blood clots) in your poop. ??? Your belly is swollen. ??? You feel sick to your stomach (nauseous). ??? You throw up (vomit). ??? You have a fever. ??? You have belly pain that gets worse, and medicine does not help your pain. Summary ??? After the procedure, it is common to have a small amount of blood in your poop. You may also have mild cramping and bloating in your belly. ??? For the first 24 hours after the procedure, do not drive or use machinery, do not sign important documents, and do not drink alcohol. ??? Get help right away if you have a lot of blood in your poop, feel sick to your stomach, have a fever, or have more belly pain. This information is not intended to replace advice given to you by your health care provider. Make sure you discuss any questions you have with your health care provider. Document Released: 05/26/2011 Document Revised: 02/21/2018 Document Reviewed: 01/15/2017 [employer] Patient Education ?? 2019 [employer] Esophagogastroduodenoscopy, Care After Refer to this sheet in the next few weeks. These instructions provide you with information about caring for yourself after your procedure. Your health care provider may also give you more specific instructions. Your treatment has been planned according to current medical practices, but problems sometimes occur. Call your health care provider if you have any problems or questions after your procedure. What can I expect after the procedure? After the procedure, it is common to have: ??? A sore throat. ??? Nausea. ??? Bloating. ??? Dizziness. ??? Fatigue. Follow these instructions at home: ??? Do not eat or drink anything until the numbing medicine (local anesthetic) has worn off and your gag reflex has returned. You will know that the local anesthetic has worn off when you can swallow comfortably. ??? Do not drive for 24 hours if you received a medicine to help you relax (sedative). ??? If your health care provider took a tissue sample for testing during the procedure, make sure to get your test results. This is your responsibility. Ask your health care provider or the department performing the test when your results will be ready. ??? Keep all follow-up visits as told by your health care provider. This is important. Contact a health care provider if: ??? You cannot stop coughing. ??? You are not urinating. ??? You are urinating less than usual. Get help right away if: ??? You have trouble swallowing. ??? You cannot eat or drink. ??? You have throat or chest pain that gets worse. ??? You are dizzy or light-headed. ??? You faint. ??? You have nausea or vomiting. ??? You have chills. ??? You have a fever. ??? You have severe abdominal pain. ??? You have black, tarry, or bloody stools. This information is not intended to replace advice given to you by your health care provider. Make sure you discuss any questions you have with your health care provider. Document Released: 04/09/2013 Document Revised: 09/28/2016 Document Reviewed: 03/16/2016 [employer] Patient Education ?? 2019 [employer]. metronidazole (me irma hawk) FIRST Metronidazole, Flagyl, Flagyl 375 What is the most important information I should know about metronidazole? You should not use metronidazole if you have taken disulfiram (Antabuse) within the past 2 weeks. Do not drink alcohol or consume foods or medicines that contain propylene glycol while you are taking metronidazole and for at least 3 days after you stop taking it. What is metronidazole? Metronidazole is an antibiotic that is used to treat bacterial infections of the vagina, stomach, liver, skin, joints, brain, and respiratory tract. Metronidazole will not treat a vaginal yeast infection. Metronidazole may also be used for purposes not listed in this medication guide. What should I discuss with my healthcare provider before taking metronidazole? You should not take metronidazole if you are allergic to it, or if you have taken disulfiram (Antabuse) within the past 2 weeks. Do not take metronidazole during the first trimester of . This medicine can harm an unborn baby. Tell your doctor if you are . Tell your doctor if you have ever had: ?? liver or kidney disease; ?? Cockayne syndrome (a rare genetic disorder); ?? a stomach or intestinal disease such as Crohn's disease; ?? a blood cell disorder such as anemia (lack of red blood cells) or low white blood cell (WBC) counts; ?? a fungal infection anywhere in your body; or ?? a nerve disorder. In animal studies, metronidazole caused certain types of tumors, some of which were cancerous. However, very high doses are used in animal studies. It is not known whether these effects would occur in people using regular doses. Ask your doctor about your risk. Metronidazole can pass into breast milk and may harm a nursing baby. You should not breast-feed within 24 hours after using metronidazole. If you use a breast pump during this time, throw out any milk you collect. Do not feed it to your baby. Do not give this medicine to a child without medical advice. How should I take metronidazole? Follow all directions on your prescription label and read all medication guides or instruction sheets. Use the medicine exactly as directed. Shake the oral suspension (liquid) before you measure a dose. Use the dosing syringe provided, or use a medicine dose-measuring device (not a kitchen spoon). Do not crush, chew, or break an extended-release tablet. Swallow it whole. If you are treating a vaginal infection, your sexual partner may also need to take metronidazole (even if no symptoms are present) or you could become reinfected. Metronidazole is usually given for up to 10 days in a row. You may need to repeat this dosage several weeks later. Use this medicine for the full prescribed length of time, even if your symptoms quickly improve. Skipping doses can increase your risk of infection that is resistant to medication. Metronidazole will not treat a viral infection such as the flu or a common cold. This medicine can affect the results of certain medical tests. Tell any doctor who treats you that you are using metronidazole. Store at room temperature away from moisture and heat. What happens if I miss a dose? Take the medicine as soon as you can, but skip the missed dose if it is almost time for your next dose. Do not take two doses at one time. What happens if I overdose? Seek emergency medical attention or call the Poison Help line at . Overdose symptoms may include nausea, vomiting, and loss of balance or coordination. What should I avoid while taking metronidazole? Do not drink alcohol or consume food or medicines that contain propylene glycol while you are taking metronidazole. You may have unpleasant side effects such as headaches, stomach cramps, nausea, vomiting, and flushing (warmth, redness, or tingly feeling). Avoid alcohol or propylene glycol for at least 3 days after you stop taking metronidazole. Check the labels of any medicines or food products you use to make sure they do not contain alcohol or propylene glycol. What are the possible side effects of metronidazole? Get emergency medical help if you have signs of an allergic reaction: hives; difficult breathing; swelling of your face, lips, tongue, or throat. Call your doctor at once if you have: ?? diarrhea; ?? painful or difficult urination; ?? trouble sleeping, depression, irritability; ?? headache, dizziness, weakness; ?? a light-headed feeling (like you might pass out); or ?? blisters or ulcers in your mouth, red or swollen gums, trouble swallowing. Stop taking the medicine and call your doctor right away if you have neurologic side effects (more likely to occur while taking metronidazole fci): ?? numbness, tingling, or burning pain in your hands or feet; ?? vision problems, pain behind your eyes, seeing flashes of light; ?? muscle weakness, problems with coordination; ?? trouble speaking or understanding what is said to you; ?? a seizure; or ?? fever, neck stiffness, and increased sensitivity to light. Metronidazole can cause life-threatening liver problems in people with Cockayne syndrome. If you have this condition, stop taking metronidazole and contact your doctor if you have signs of liver failure--nausea, stomach pain (upper right side), dark urine, anita-colored stools, or jaundice (yellowing of the skin or eyes). Side effects may be more likely in older adults. Common side effects may include: ?? nausea, vomiting, loss of appetite, stomach pain; ?? diarrhea, constipation; ?? unpleasant metallic taste; ?? rash, itching; ?? vaginal itching or discharge; ?? mouth sores; or ?? swollen, red, or 'hairy' tongue. This is not a complete list of side effects and others may occur. Call your doctor for medical advice about side effects. You may report side effects to FDA at 5-243-FDW-7804. What other drugs will affect metronidazole? Sometimes it is not safe to use certain medications at the same time. Some drugs can affect your blood levels of other drugs you take, which may increase side effects or make the medications less effective. Tell your doctor about all your other medicines, especially: ?? busulfan; ?? lithium; or ?? a blood thinner--warfarin, Coumadin, Jantoven. This list is not complete. Other drugs may affect metronidazole, including prescription and sffe-vqa-embhfxo medicines, vitamins, and herbal products. Not all possible drug interactions are listed here. Where can I get more information? Your pharmacist can provide more information about metronidazole. Remember, keep this and all other medicines out of the reach of children, never share your medicines with others, and use this medication only for the indication prescribed. Every effort has been made to ensure that the information provided by [employer] is accurate, up-to-date, and complete, but no guarantee is made to that effect. Drug information contained herein may be time sensitive. [employer] information has been compiled for use by healthcare practitioners and consumers in the [place] and therefore [employer] does not warrant that uses outside of the [place] are appropriate, unless specifically indicated otherwise. [employer] drug information does not endorse drugs, diagnose patients or recommend therapy. [employer] drug information is an informational resource designed [...] effective or appropriate for any given patient. [employer] does not assume any responsibility for any aspect of healthcare administered with the aid of information [employer] provides. The information contained herein is not intended to cover all possible uses, directions, precautions, warnings, drug interactions, allergic reactions, or adverse effects. If you have questions about the drugs you are taking, check with your doctor, nurse or pharmacist. Copyright 2514-3830 [employer]. Version: 12.. Revision Date: 02/25/2018. linaclotide (GENEVIEVE GOULD titram) Linzess What is the most important information I should know about linaclotide? You should not use linaclotide if you have a blockage in your intestines. Linaclotide should not be given to a child younger than 6 years old. Linaclotide can cause severe dehydration in a child. What is linaclotide? Linaclotide works by increasing the secretion of chloride and water in the intestines, which can soften stools and stimulate bowel movements. Linaclotide is used to treat chronic constipation, or chronic irritable bowel syndrome (IBS) in people who have had constipation as the main symptom. Linaclotide may also be used for purposes not listed in this medication guide. What should I discuss with my healthcare provider before taking linaclotide? You should not use linaclotide if you are allergic to it, or if you have: ?? a blockage in your intestines. Linaclotide can cause severe dehydration in a child. Linaclotide should not be given to a child younger than 6 years old. Do not give this medicine to any child or teenager without the advice of a doctor. It is not known whether linaclotide will harm an unborn baby. Tell your doctor if you are or plan to become while using this medicine. It is not known whether linaclotide passes into breast milk or if it could harm a nursing baby. Tell your doctor if you are breast-feeding a baby. How should I take linaclotide? Follow the directions on your prescription label. Do not take this medicine in larger or smaller amounts or for longer than recommended. Take linaclotide in the morning on an empty stomach, at least 30 minutes before your first meal. Do not crush, chew, or break a linaclotide capsule. Swallow it whole. If you cannot swallow the linaclotide capsule whole, you may open the capsule and sprinkle the medicine into a spoonful of applesauce or bottled water. Swallow the mixture right away without chewing. Do not save it for later use. Even if you have taken this medicine with applesauce, wait at least 30 minutes before eating a full meal. If needed, medicine from the linaclotide capsule may be given through a nasogastric (NG) or gastronomy tube. Read all patient information, medication guides, and instruction sheets provided to you. Carefully follow instructions for mixing medicine from the capsule with applesauce or water, or giving the medicine through a feeding tube. Ask your doctor or pharmacist if you have any questions. It may take up to 2 weeks before your symptoms improve. Keep using the medication as directed. Call your doctor if your symptoms do not improve, or if they get worse while using linaclotide. Store at room temperature away from moisture and heat. Keep this medicine out of the reach of children. Linaclotide can cause severe diarrhea and dehydration in a child who accidentally swallows this medicine. Seek emergency medical attention if this happens. Keep the capsules in their original container, along with the packet of moisture-absorbing preservative that comes with this medicine. Keep the bottle tightly closed when not in use. What happens if I miss a dose? Skip the missed dose and take the medicine at your next regularly scheduled time. Do not take extra medicine to make up the missed dose. What happens if I overdose? Seek emergency medical attention or call the Poison Help line at . What should I avoid while taking linaclotide? Follow your doctor's instructions about any restrictions on food, beverages, or activity. What are the possible side effects of linaclotide? Get emergency medical help if you have any of these signs of an allergic reaction: hives; difficult breathing; swelling of your face, lips, tongue, or throat. Stop using linaclotide and call your doctor at once if you have: ?? severe or ongoing diarrhea; ?? diarrhea with dizziness or a light-headed feeling (like you might pass out); ?? signs of an electrolyte imbalance--increased thirst or urination, leg cramps, mood changes, confusion, feeling unsteady, irregular heartbeats, fluttering in your chest, muscle weakness or limp feeling; ?? severe stomach pain; or ?? black, bloody, or tarry stools. Common side effects may include: ?? diarrhea; ?? stomach pain; ?? gas; or ?? bloating or full feeling in your stomach. This is not a complete list of side effects and others may occur. Call your doctor for medical advice about side effects. You may report side effects to FDA at 3-984-FKH-6965. What other drugs will affect linaclotide? Other drugs may interact with linaclotide, including prescription, zrdv-kpi-jaefcir, vitamin, and herbal products. Tell your doctor about all medications you use, and those you start or stop using during your treatment with linaclotide. Where can I get more information? Your pharmacist can provide more information about linaclotide. Remember, keep this and all other medicines out of the reach of children, never share your medicines with others, and use this medication only for the indication prescribed. Every effort has been made to ensure that the information provided by [employer] is accurate, up-to-date, and complete, but no guarantee is made to that effect. Drug information contained herein may be time sensitive. [employer] information has been compiled for use by healthcare practitioners and consumers in the [place] and therefore [employer] does not warrant that uses outside of the [place] are appropriate, unless specifically indicated otherwise. [employer] drug information does not endorse drugs, diagnose patients or recommend therapy. [employer] drug information is an informational resource designed [...] effective or appropriate for any given patient. [employer] does not assume any responsibility for any aspect of healthcare administered with the aid of information [employer] provides. The information contained herein is not intended to cover all possible uses, directions, precautions, warnings, drug interactions, allergic reactions, or adverse effects. If you have questions about the drugs you are taking, check with your doctor, nurse or pharmacist. Copyright 4229-6319 [employer]. Version: 4.02. Revision Date: 01/23/2017. pantoprazole (oral/injection) (quezada TOE pra zole) Protonix What is the most important information I should know about pantoprazole? Pantoprazole can cause kidney problems. Tell your doctor if you are urinating less than usual, or if you have blood in your urine. Diarrhea may be a sign of a new infection. Call your doctor if you have diarrhea that is watery or has blood in it. Pantoprazole may cause new or worsening symptoms of lupus. Tell your doctor if you have joint pain and a skin rash on your cheeks or arms that worsens in sunlight. You may be more likely to have a broken bone while taking this medicine fci or more than once per day. What is pantoprazole? Pantoprazole is a proton pump inhibitor that decreases the amount of acid produced in the stomach. Pantoprazole is used to treat erosive esophagitis (damage to the esophagus from stomach acid caused by gastroesophageal reflux disease, or GERD) in adults and children who are at least 5 years old. Pantoprazole is usually given for up to 8 weeks at a time while your esophagus heals. Pantoprazole is also used to treat Elvira-Fong syndrome and other conditions involving excess stomach acid. Pantoprazole is not for immediate relief of heartburn. Pantoprazole may also be used for purposes not listed in this medication guide. What should I discuss with my healthcare provider before using pantoprazole? Heartburn can mimic early symptoms of a heart attack. Get emergency medical help if you have chest pain that spreads to your jaw or shoulder and you feel anxious or light-headed. You should not use this medicine if: ?? you also take medicine that contains rilpivirine (Edurant, Complera, Juluca, Odefsey); or ?? you are allergic to pantoprazole or similar medicines (lansoprazole, omeprazole, Nexium, Prevacid, Prilosec, and others). Tell your doctor if you have ever had: ?? low levels of magnesium in your blood; ?? lupus; or ?? osteoporosis or low bone mineral density. You may be more likely to have a broken bone in your hip, wrist, or spine while taking a proton pump inhibitor long-term or more than once per day. Talk with your doctor about ways to keep your bones healthy. It is not known whether this medicine will harm an unborn baby. Tell your doctor if you are or plan to become . You should not breast-feed while using this medicine. Pantoprazole is not approved for use by anyone younger than 5 years old. How should I use pantoprazole? Follow all directions on your prescription label and read all medication guides or instruction sheets. Use the medicine exactly as directed. Use the lowest dose for the shortest amount of time needed to treat your condition. Pantoprazole is taken by mouth (oral) or given as an infusion into a vein (injection). A healthcare provider may teach you how to properly use pantoprazole injection by yourself. Pantoprazole tablets are taken by mouth, with or without food. Pantoprazole oral granules should be taken 30 minutes before a meal. Do not crush, chew, or break the tablet. Swallow it whole. The oral granules should be mixed with applesauce or apple juice and given either by mouth or through a nasogastric (NG) tube. Read and carefully follow any Instructions for Use provided with your medicine. Ask your doctor or pharmacist if you do not understand these instructions. Use this medicine for the full prescribed length of time, even if your symptoms quickly improve. Call your doctor if your symptoms do not improve or if they get worse while you are using this medicine. This medicine can affect the results of certain medical tests. Tell any doctor who treats you that you are using pantoprazole. Pantoprazole may also affect a drug-screening urine test and you may have false results. Tell the laboratory staff that you use this medicine. Store this medicine at room temperature away from moisture, heat, and light. What happens if I miss a dose? Use the medicine as soon as you can, but skip the missed dose if it is almost time for your next dose. Do not use two doses at one time. What happens if I overdose? Seek emergency medical attention or call the Poison Help line at . What should I avoid while using pantoprazole? This medicine can cause diarrhea, which may be a sign of a new infection. If you have diarrhea that is watery or bloody, call your doctor. Do not use anti-diarrhea medicine unless your doctor tells you to. What are the possible side effects of pantoprazole? Get emergency medical help if you have signs of an allergic reaction: hives; difficulty breathing; swelling of your face, lips, tongue, or throat. Call your doctor at once if you have: ?? severe stomach pain, diarrhea that is watery or bloody; ?? sudden pain or trouble moving your hip, wrist, or back; ?? bruising or swelling where intravenous pantoprazole was injected; ?? kidney problems--urinating less than usual, blood in your urine, swelling, rapid weight gain; ?? low magnesium--dizziness, fast or irregular heart rate, tremors (shaking) or jerking muscle movements, feeling jittery, muscle cramps, muscle spasms in your hands and feet, cough or choking feeling; or ?? new or worsening symptoms of lupus--joint pain, and a skin rash on your cheeks or arms that worsens in sunlight. Taking pantoprazole long-term may cause you to develop stomach growths called fundic gland polyps. Talk with your doctor about this risk. If you use pantoprazole for longer than 3 years, you could develop a vitamin B-12 deficiency. Talk to your doctor about how to manage this condition if you develop it. Common side effects may include: ?? headache, dizziness; ?? stomach pain, gas, nausea, vomiting, diarrhea; ?? joint pain; or ?? fever, rash, or cold symptoms (most common in children). This is not a complete list of side effects and others may occur. Call your doctor for medical advice about side effects. You may report side effects to FDA at 8-799-TZQ-1038. What other drugs will affect pantoprazole? Tell your doctor about all your other medicines, especially: ?? digoxin; ?? methotrexate; or ?? a diuretic or 'water pill.' This list is not complete. Other drugs may affect pantoprazole, including prescription and hucg-bne-ymtrvgl medicines, vitamins, and herbal products. Not all possible drug interactions are listed here. Where can I get more information? Your pharmacist can provide more information about pantoprazole. Remember, keep this and all other medicines out of the reach of children, never share your medicines with others, and use this medication only for the indication prescribed. Every effort has been made to ensure that the information provided by [employer] is accurate, up-to-date, and complete, but no guarantee is made to that effect. Drug information contained herein may be time sensitive. [employer] information has been compiled for use by healthcare practitioners and consumers in the [place] and therefore [employer] does not warrant that uses outside of the [place] are appropriate, unless specifically indicated otherwise. [employer] drug information does not endorse drugs, diagnose patients or recommend therapy. [employer] drug information is an informational resource designed [...] effective or appropriate for any given patient. [facility] does not assume any responsibility for any aspect of healthcare administered with the aid of information [facility] provides. The information contained herein is not intended to cover all possible uses, directions, precautions, warnings, drug interactions, allergic reactions, or adverse effects. If you have questions about the drugs you are taking, check with your doctor, nurse or pharmacist. Copyright 9875-9480 [facility] [employer]. Version: 19.02. Revision Date: 10/30/2017. Emergency Awareness and Preventative Care STROKE is [...] Assistance with quitting is available by contacting 6-903-OIJW-NOW. This is a free resource providing counseling, [...] This Visit (last charted value for your 10/08/2019 visit) Microbiology 10/06/2019 12:15 PM Novel Coronavirus 2019: Negative General Chemistry 10/08/2019 9:26 AM Glucose POC2: 108 mg/dL -- Normal range between ( 70 and 110 ) Device Comment 1: Device Comment 1 Patient Name:AMBIKA PIERRE I have received this information and was given the opportunity to ask questions. Patient/Bioinformatics Engineer Name: Patient/Bioinformatics Engineer Signature: Relationship to Patient: Clinician/Hospital Bioinformatics Engineer Signature: Date: documented in this encounter Plan of Treatment Not on file documented as of this encounter Visit Diagnoses Not on filedocumented in this encounter Care Teams Correctional Cook Relationship Specialty Start Date End Date Salima Gonzáles DO [address] [facility] [address] [place] [id number] PCP - General Family Medicine 02/09/23 documented as of this encounter
--- OUTSIDE RECORDS SUMMARY | 2024-04-06 21:57 | XMS_ITS | Encounter Summary ---
Author Organization [employer] Address [address] [place] [address] Care Team Providers Care Emulsion Coater Name Role Phone Salima Gonzáles Primary Care Provider [phone] Encounter Details Date Type Department Care Team (Late st Contact Info) Description 10/03/2020 Transcribed Document [facility] [place] [address] [place] [address] ProviderQuincy MD [address] [place] [address] Social History Tobacco Use Types Packs/Day Years Used Date Smoking Tobacco: Never Assessed Comments Unknown Sex and Gender Information Value Date Recorded Sex Assigned at Not on file Legal Sex Female 2:54 PM CDT Gender Identity Not on file Sexual Orientation Not on file documented as of this encounter Miscellaneous Notes * Cerner Conversion Note - Quincy ProviderMD - 10/03/2020 7:04 PM CDT Pain Assessment Entered On: 10/05/2020 13:39 EDT Performed On: 10/05/2020 9:15 EDT by Hoa Coleman RN Intervention Information: oxyCODONE Performed by Hoa Coleman RN on 10/05/2020 08:15:00 EDT oxyCODONE,5mg Oral,Pain (Moderate 4-6) Pain Assessment Pain Assessment : Follow-up assessment Pain Improved by Intervention : Yes Hoa Coleman RN - 10/05/2020 13:39 EDT documented in this encounter Plan of Treatment Not on file documented as of this encounter Visit Diagnoses Not on filedocumented in this encounter Care Teams Emulsion Coater Relationship Specialty Start Date End Date Salima Gonzáles, [address] [address] PCP - General Family Medicine 02/09/23 documented as of this encounter
--- OUTSIDE RECORDS SUMMARY | 2024-04-06 21:57 | XMS_ITS | Encounter Summary ---
Author Organization [employer] Address [address] [place] [address] Care Team Providers Care Polish Compounder Name Role Phone Salima Gonzáles Primary Care Provider [phone] Encounter Details Date Type Department Care Team (Late st Contact Info) Description 10/03/2020 Transcribed Document [facility] [place] Medicine [address] [place] [address] ProviderQuincy MD [address] [place] [address] Social History Tobacco Use Types Packs/Day Years Used Date Smoking Tobacco: Never Assessed Comments Unknown Sex and Gender Information Value Date Recorded Sex Assigned at Not on file Legal Sex Female 2:54 PM CDT Gender Identity Not on file Sexual Orientation Not on file documented as of this encounter Miscellaneous Notes * Cerner Conversion Note - Quincy Kate MD - 10/03/2020 6:41 PM CDT Nutrition Assessment Entered On: 10/04/2020 13:57 EDT Performed On: 10/04/2020 13:56 EDT by STEPHANIE HAYES RD, LD Nutrition Assessment Nutrition Assessment Reason : Automatic referral STEPHANIE HAYES RD, LD - 10/04/2020 13:56 EDT Nutrition Recommendations Dietitian Recommendations : 10/04: rec'd consult for BMI >40. Pt admitted for kidney stones. Reports no recent UWL or decreaed appetite. No skin breakdown. Pt currrently NPO pending Urology consult/possible surgery. No specific nutrition concerns, will rescreen in 3-4 days to check on diet advancement and tolerance STEPHANIE HAYES RD, LD - 10/04/2020 13:56 EDT Electronically signed by [facility] Conversion Marketing Proposal Specialist Cerner at 08/23/2022 11:01 AM CDT documented in this encounter Plan of Treatment Not on file documented as of this encounter Visit Diagnoses Not on filedocumented in this encounter Care Teams Polish Compounder Relationship Specialty Start Date End Date Salima Gonzáles, DO [address] [address] PCP - General Family Medicine 02/09/23 documented as of this encounter
--- OUTSIDE RECORDS SUMMARY | 2024-04-06 21:57 | XMS_ITS | Encounter Summary ---
Author Organization [employer] Address [address] [place] [address] Care Team Providers Care Chief Yeoman Name Role Phone Salima Gonzáles Primary Care Provider [phone] Encounter Details Date Type Department Care Team (Late st Contact Info) Description 10/03/2020 Transcribed Document [facility] [place] [address] [place] [address] ProviderQuincy MD [address] [place] [address] Social History Tobacco Use Types Packs/Day Years Used Date Smoking Tobacco: Never Assessed Comments Unknown Sex and Gender Information Value Date Recorded Sex Assigned at Not on file Legal Sex Female 2:54 PM CDT Gender Identity Not on file Sexual Orientation Not on file documented as of this encounter Miscellaneous Notes * Cerner Conversion Note - Quincy Kate MD - 10/03/2020 7:18 PM CDT Consult Phone Call Documentation Entered On: 10/04/2020 9:51 EDT Performed On: 10/03/2020 19:18 EDT by Tereza Carrera Patient Mortgage Funder Shira Phone Call for Consults Consult Phone Call/Page Attempt : First call Consult Reason : obstructing stone Physician Requesting Consult : TIM MCCORMICK, DO-INT Physician Requested for Consult : DILLON HOFFMANN MD Provider Team Notified Name : Urology Physician Covering for Consult : ANNABEL ZAMBRANO MD-URO Date and Time Call Returned : 10/04/2020 9:51 EDT Tereza Carrera Patient Mortgage Funder Shira - 10/04/2020 9:48 EDT documented in this encounter Plan of Treatment Not on file documented as of this encounter Visit Diagnoses Not on filedocumented in this encounter Care Teams Chief Yeoman Relationship Specialty Start Date End Date Salima Gonzáles DO [address] [facility] [address] [place] [address] PCP - General Family Medicine 02/09/23 documented as of this encounter
--- OUTSIDE RECORDS SUMMARY | 2024-04-06 21:57 | XMS_ITS | Encounter Summary ---
Author Organization Healthcare Address [address] [id number] Care Team Providers Care Warehouse Handler Name Role Phone Salima Gonzáles Primary Care Provider [phone] Reason for Visit * Reason Comments Post-op Encounter Details Date Type Department Care Team (Latest Contact Info) Description 06/07/2021 10:50 AM EST Office Visit Medical Office [facility] [address], [address] [place] [address] Neela Flynn MD [address] [place] [address] Closed fracture of distal end of left femur with routine healing, unspecified fracture morphology, subsequent encounter (Primary Dx); Displaced intertrochanteric fracture of left femur, init (CMS/[facility]) Social History Tobacco Use Types Packs/Day Years Used Date Smoking Tobacco: Former Smokeless Tobacco: Never Alcohol Use Standard Drinks/Week Comments Never 0 (1 standard drink = 0.6 oz pur e alcohol) Comments Unknown Sex and Gender Information Value Date Recorded Sex Assigned at Not on file Legal Sex Female 6:35 PM EDT Gender Identity Not on file Sexual Orientation Not on file COVID-19 Exposure Response Date Recorded In the last month, have you been in contact with someone who was confirmed or suspected to have Coronavirus / COVID-19? No / Unsure 06/07/2021 10:10 AM EST documented as of this encounter Last Filed Vital Signs Vital Sign Reading Time Taken Comments Blood Pressure 113/77 06/07/2021 10:31 AM EST Pulse 70 06/07/2021 10:31 AM EST Temperature - - Respiratory Rate - - Oxygen Saturation - - Inhaled Oxygen Concentration - - Weight 115 kg (253 lb 15.5 oz) 06/07/2021 10:31 AM EST Height 154.9 cm (5' 1 ) 06/07/2021 10:31 AM EST Body Mass Index 47.99 06/07/2021 10:31 AM EST documented in this encounter Miscellaneous Notes * Progress Notes - Neela Flynn MD - 06/07/2021 10:50 AM EST S/p ORIF w/ Retrograde IMN of Left PeriProsthetic Distal Femur Fx (05/01/21). No issues during recovery and discharged home POD#5. No issues at 2wk visit (05/17/21). Minimal pain. Still reports knee improving but range of motion not fully returned and some occasional discomfort. No other issues. Ambulates w/ walker w/out limitation. Does not yet feel ready to return to work. Doing light duty. BMI, 48. XR of femur today show abundant callous formation and no obvious issues w/ implants. F/u in 2mo w/ repeat XRs of femur. documented in this encounter Plan of Treatment Not on file documented as of this encounter Results * XR Femur Left 2+ Views (06/07/2021 10:33 AM EST) Anatomical Region Laterality Modality Lower Extremities, Femur Left Digital Radiography Impressions 06/07/2021 11:14 AM EST No hardware loosening or failure is noted. CRITICAL RESULT: ?? No. COMMUNICATION: Per this written report. Dictated by Anthony Card on 06/07/2021 11:14 AM Signed by Anthony Card on 06/07/2021 11:14 AM Narrative 06/07/2021 11:14 AM EST Exam/Procedure: XR FEMUR LEFT 2+ VIEWS ordered by NEELA FLYNN, [id number] CLINICAL INDICATION: Pain TECHNIQUE: XR FEMUR LEFT 2+ VIEWS COMPARISON: 05/01/2021 FINDINGS: Intramedullary nail with screw fixation is noted in the left femur spanning a distal femur fracture. No hardware loosening or failure is noted. Continued interval healing of the distal femur fracture. Removal of the skin madeleine and resolution of the soft tissue emphysema. Procedure Note Anthony Card MD - 06/07/2021 Exam/Procedure: XR FEMUR LEFT 2+ VIEWS ordered by NEELA FLYNN, [id number] CLINICAL INDICATION: Pain TECHNIQUE: XR FEMUR LEFT 2+ VIEWS COMPARISON: 05/01/2021 FINDINGS: Intramedullary nail with screw fixation is noted in the left femurspanning a distal femur fracture. No hardware loosening or failure isnoted. Continued interval healing of the distal femur fracture. Removal ofthe skin madeleine and resolution of the soft tissue emphysema. IMPRESSION: No hardware loosening or failure is noted. CRITICAL RESULT: No. COMMUNICATION: Per this written report. Dictated by Anthony Card on 06/07/2021 11:14 AM Signed by Anthony Card on 06/07/2021 11:14 AM Neela Flynn MD IMG XR PROCEDURES Final Result documented in this encounter Visit Diagnoses Diagnosis Closed fracture of distal end of left femur with routine healing, unspecified fracture morphology, subsequent encounter- Primary Displaced intertrochanteric fracture of left femur, init (CMS/HCC) Displaced intertrochanteric fracture of left femur, init (CMS/[facility]) documented in this encounter Additional Health Concerns Assessment Noted Time A fall risk assessment has been complete d for the patient 06/07/2021 10:34 AM EST documented as of this encounter Care Teams Warehouse Handler Relationship Specialty Start Date End Date Salima Gonzáles DO [address] [place] [address] PCP - General 09/17/20 documented as of this encounter
--- OUTSIDE RECORDS SUMMARY | 2024-04-06 21:57 | XMS_ITS | Encounter Summary ---
Author Organization [facility] Address [address] [id number] Care Team Providers Care Traffic Ii Manager Name Role Phone Salima Gonzáles DO Primary Care Provider [phone] Reason for Referral * Imaging (Routine) - Closed Specialty Diagnoses / Procedures Referred By Contac t Referred To Contact Radiology Diagnoses Abnormal findings on diagnostic imaging of heart and coronary circulation Chest pain, unspecified Precordial chest pain Procedures CT Angio Cardiac Coronary Arteries Radiology Virtual Dept. [address] [place] [phone] Phone: tel: Referral ID Status Reason Start Date Expiration Date Visits Re quested Visits Authorized [id number] Closed 02/13/2023 08/14/2024 1 1 Reason for Visit * Imaging (Routine) - Closed Specialty Diagnoses / Procedures Referred By Contac t Referred To Contact Radiology Diagnoses Abnormal findings on diagnostic imaging of heart and coronary circulation Chest pain, unspecified Precordial chest pain Procedures CT Angio Cardiac Coronary Arteries Radiology Virtual Dept. [address] [place] [id number] Phone: tel: Referral ID Status Reason Start Date Expiration Date Visits Re quested Visits Authorized [id number] Closed 02/13/2023 08/14/2024 1 1 Encounter Details Date Type Department Care Team (Latest Contact Info) Description 03/27/2023 11:30 AM EST - 03/27/2023 11:59 PM EST Hospital Encounter [facility] [address] [place] [address] Abnormal findings on diagnostic imaging of heart and coronary circulation; Chest pain, unspecified; Precordial chest pain Discharge Disposition: Home or Self Care Social [...] Sign Reading Time Taken Comments Blood Pressure 115/87 03/27/2023 1:45 PM EST Pulse 62 03/27/2023 1:45 PM EST Temperature - - Respiratory Rate 20 03/27/2023 1:45 PM EST Oxygen Saturation 97% 03/27/2023 1:45 PM EST Inhaled Oxygen Concentration - - Weight 118 kg (260 lb) 03/27/2023 11:47 AM EST Height 154.9 cm (5' 1 ) 03/27/2023 11:47 AM EST Body Mass Index 49.13 03/27/2023 11:47 AM EST documented in this encounter Discharge Instructions * Attachments The following attachments cannot be sent through Care Everywhere. * Contrast Imaging Discharge Instructions ([place]) ([place]) documented in this encounter Medications at Time of Discharge albuterol 108 (90 Base) MCG/ACT inhaler Inhale 2 puffs every 6 (six) hours if needed for wheezing. Ascorbic Acid (vitamin C) 250 MG tablet Take 250 mg by mouth 1 (one) time each day. buPROPion SR (Wellbutrin SR) 150 MG 12 hr tablet Take 150 mg by mouth 2 (two) times a day. Do not crush, chew, or split. cyanocobalamin (Vitamin B-12) 1000 MCG tablet Take 1,000 mcg by mouth 1 (one) time each day. diclofenac (Voltaren) 1 % topical gel Place 4 g on the skin 4 (four) times a day. To ankle and foot ferrous sulfate 325 (65 Fe) MG tablet Take 325 mg by mouth 1 (one) time each day. FLUoxetine (PROzac) 40 MG capsule Take 40 mg by mouth 2 (two) times a day. hydrocortisone 2.5 % cream Apply 1 application topically 2 (two) times a day if needed. hydrOXYzine pamoate (Vistaril) 25 MG capsule Take 25 mg by mouth 3 (three) times a day if needed for anxiety. ketoconazole (NIZOral) 2 % cream Apply 1 application topically 1 (one) time each day if needed for itching. levothyroxine (Synthroid, Levoxyl) 125 MCG tablet Take 125 mcg by mouth 1 (one) time each day. loratadine (Claritin) 10 MG tablet Take 10 mg by mouth 1 (one) time each day. losartan (Cozaar) 100 MG tablet Take 100 mg by mouth 1 (one) time each day. montelukast (Singulair) 10 MG tablet Take 10 mg by mouth every night. Multiple Vitamins-Mineral s (multivitamin with minerals) tablet Take 1 tablet by mouth 1 (one) time each day. pantoprazole (Protonix) 40 MG EC tablet Take 40 mg by mouth 2 (two) times a day. Do not crush, chew, or split. pregabalin (Lyrica) 150 MG capsule Take 150 mg by mouth 2 (two) times a day. Probiotic Product (acidophilus probiotic blend) capsule Take 1 capsule by mouth 1 (one) time each day. simvastatin (Zocor) 5 MG tablet Take 5 mg by mouth every night. SITagliptin (Januvia) 100 MG tablet Take 100 mg by mouth 1 (one) time each day. documented as of this encounter Plan of Treatment Not on file documented as of this encounter Procedures Procedure Name Priority Date/Time Associated Diagnosis Comments CT ANGIO CARDIAC CORONARY ARTERIES Routine 03/27/2023 1:47 PM EST Abnormal findings on diagnostic imaging of heart and coronary circulation Chest pain, unspecified Precordial chest pain POCT CREATININE ISTAT UNSOLICITED RESULTS Routine 03/27/2023 11:52 AM EST documented in this encounter Results * CT Angio Cardiac Coronary Arteries (03/27/2023 1:47 PM EST) Anatomical Region Laterality Modality Heart Computed Tomogra phy Impressions 03/27/2023 8:49 PM EST 1. Moderate coronary calcification with an Agatston score = 158 using the AJ-130 method, which represents 95 percentile when matched for age, gender and ethnicity. ??Vascular age is 5 years. Technically difficult study with limited sensitivity and specificity due to suboptimal image quality related to photon starvation. ??In patients with BMI >45 kg/m2, female, or >50 kg/m2, male, the diagnostic quality is poor. 2. Mixed calcific and soft atherosclerotic disease within the mid and distal segments of the LAD causing mild stenosis. Predominantly calcific plaque in the proximal circumflex with minimal stenosis. No significant stenosis of the RCA. 3. Plaque: Overall, there is (P2) moderate amount of total coronary plaque present. 4. Recommendations: CAD-RADS 2: Management recommendations: ??Consider non-atherosclerotic causes of symptoms. Consider risk factor modification and preventive pharmacotherapy with high potency statin. ?? 5 No significant non coronary cardiac findings in particular normal cardiac chambers, non-coronary vessels in the field of view and unremarkable pericardium. 6 ??Extracardiac structures in the field of view are unremarkable. Small hiatal hernia. CRITICAL RESULT: No. COMMUNICATION: Per this written report. By electronically signing this report, I, the attending physician, attest that I have personally reviewed the images/data for the above examination(s) and agree with the final edited report. Drafted by Stefano Arias M.D. on 03/27/2023 1:53 PM Final report signed by Mohit Azevedo MD on 03/27/2023 8:49 PM Narrative 03/27/2023 8:49 PM EST CLINICAL INDICATION: 57-year-old female with history of diabetes and hypertension referred for CT coronary angiography following abnormal nuclear stress test results, with findings suggestive of possible area of anterior ischemia. Symptoms: Chest pain with clinical features suggesting myocardial ischemia Clinical Data Height: 154.9 cm Weight: 118 kg Risk Factors: Diabetes, hypertension Relevant Cardiac Diagnostic Tests: Nuclear stress test performed 12/26/2022 with findings of a possible small area of anterior ischemia. TECHNIQUE: Procedure Data Image Acquisition: A Dual source 192 MDCT scanner ([employer] Force, [employer]) was used for data acquisition. A non-contrast coronary calcium scan was initially performed. Bolus tracking in the ascending aorta with a threshold of 180HU was performed. Immediately afterwards, ECG synchronized Cardiac CT was then performed from cardiac base to apex using prospective gating. ??A tube voltage of 120 kVp was used. A total of 100 mL Omnipaque 350mgI/mL contrast media was administered at 6 mL/sec followed by a saline flush using a biphasic injection protocol. The patient received the following medications prior to the Cardiac CT: 175 mg of po metoprolol, 5 mg of IV metoprolol, and 0.8 mg sublingual nitroglycerin. The average heart rate at the time of acquisition was 51 bpm (48 bpm to 54 bpm) and regular. Image Reconstruction: Transaxial images were reconstructed at 0.75 mm slice thickness. ??Data was reviewed interactively on an advanced workstation ([employer]) capable of 2 and 3 dimensional displays in all conventional reconstruction formats including multiplanar reformations, maximum intensity projections, curved multiplanar reformations, and volume rendered reconstructions. Selected routine images displaying relevant coronary anatomy and pathology were saved and sent to PACS. Complications: None Technical Quality: Overall image quality is Good - with minor artifacts, but good diagnostic quality. Coronary artery opacification is Excellent. Total DLP (Dose-Length Product): 601.39 mGy.cm. Please note: The reported value represents the total of one or more individual components during the CT acquisition on this date and at this time, and as such, the same value may appear in more than one CT report depending on the interpreting/reporting physicians. COMPARISON: None. FINDINGS: -CT Coronary Calcium Scoring- LMA= 0 LAD= 133 LCX= 28 RCA= 1 Total calcium score = 158 using the AJ-130 method. This score is in the 95 percentile rank for age and gender, meaning that 5 % of patients of the same age and gender will have a higher score. The total volume score is 122. The calculated vascular age for this patient is 75 years. There is no identifiable calcification in the aortic wall, mitral annulus/valve, pericardium, myocardium. -Coronary CT Angiography- Coronary Arteries: The coronaries have normal origin and proximal course. The coronary arterial system is right ??dominant. Note: Stenosis is reported as maximum percentage diameter stenosis. Stenosis grading is reported using the following scheme. Quantitative Stenosis Grading: CAD-RADS 0: 0% - No visible stenosis CAD-RADS 1: 1-24% - Minimal stenosis CAD-RADS 2: 25-49% - Mild stenosis CAD-RADS 3: 50-69% - Moderate stenosis CAD-RADS 4A: 70-99% - Severe stenosis in 1-2 vessels CAD-RADS 4B: Left main >50%, or 3 vessel >70% CAD-RADS 5: 100% - Occluded Left Main: The left main bifurcates into the left anterior descending artery and left circumflex artery. LAD and Diagonals: The left anterior descending artery demonstrates a normal anatomic course within the anterior left interventricular groove. There is one major diagonal branch. There is mixed calcific and soft atheromatous plaque in the mid and distal segments of the LAD causing mild stenosis. LCx and Obtuse Marginals: The left circumflex demonstrates a normal anatomic course arising from the left main and coursing within the left atrioventricular groove. There is one obtuse marginal branch. There is predominantly calcific atheromatous plaque within the proximal circumflex artery causing minimal luminal stenosis. RCA: The right coronary artery demonstrates a normal anatomic origin from the right aortic cusp, with an unremarkable course in the right atrioventricular groove. There are small foci of calcific atherosclerotic disease in the proximal and mid segments without significant stenosis. There is focal motion artifact in the midsegment. Non Coronary Cardiac Findings: Normal cardiac chamber size. No pericardial thickening or calcification. Normal interatrial and interventricular septum, atrioventricular valves, ventriculo-arterial valves, pulmonary veins and imaged central veins. Central and branch pulmonary arteries in the field of view are unremarkable. Thoracic aorta and imaged thoracic aortic branches in the field of view are unremarkable. Extra Cardiac Structures: Bibasilar dependent atelectasis. A right middle lobe granuloma is noted with calcified lymphadenopathy. Small hiatal hernia. Otherwise, the visualized thoracic and upper abdominal structures demonstrates no additional abnormalities. Procedure Note Mohit Azevedo MD - 03/27/2023 CLINICAL INDICATION: 57-year-old female with history of diabetes andhypertension referred for CT coronary angiography following abnormalnuclear stress test results, with findings suggestive of possible area ofanterior ischemia. Symptoms: Chest pain with clinical features suggesting myocardialischemia Clinical Data Height: 154.9 cm Weight: 118 kg Risk Factors: Diabetes, hypertension Relevant Cardiac Diagnostic Tests: Nuclear stress test performed 12/26/2022 with findings of a possible smallarea of anterior ischemia. TECHNIQUE: Procedure Data Image Acquisition: A Dual source 192 MDCT scanner ([employer] Force, [employer])was used for data acquisition. A non-contrast coronary calcium scan wasinitially performed. Bolus tracking in the ascending aorta with athreshold of 180HU was performed. Immediately afterwards, ECG synchronizedCardiac CT was then performed from cardiac base to apex using prospectivegating. A tube voltage of 120 kVp was used. A total of 100 mL Omnipaque 350mgI/mL contrast media was administered at 6mL/sec followed by a saline flush using a biphasic injection protocol. The patient received the following medications prior to the Cardiac CT:175 mg of po metoprolol, 5 mg of IV metoprolol, and 0.8 mg sublingualnitroglycerin. The average heart rate at the time of acquisition was 51 bpm (48 bpm to 54bpm) and regular. Image Reconstruction: Transaxial images were reconstructed at 0.75 mm slice thickness. Data wasreviewed interactively on an advanced workstation ([employer]) capable of 2and 3 dimensional displays in all conventional reconstruction formatsincluding multiplanar reformations, maximum intensity projections, curvedmultiplanar reformations, and volume rendered reconstructions. Selectedroutine images displaying relevant coronary anatomy and pathology weresaved and sent to PACS. Complications: None Technical Quality: Overall image quality is Good - with minor artifacts, but good diagnosticquality. Coronary artery opacification is Excellent. Total DLP (Dose-Length Product): 601.39 mGy.cm. Please note: The reportedvalue represents the total of one or more individual components during theCT acquisition on this date and at this time, and as such, the same valuemay appear in more than one CT report depending on theinterpreting/reporting physicians. COMPARISON: None. FINDINGS: -CT Coronary Calcium Scoring- LMA= 0 LAD= 133 LCX= 28 RCA= 1 Total calcium score = 158 using the AJ-130 method. This score is in the 95percentile rank for age and gender, meaning that 5 % of patients of thesame age and gender will have a higher score. The total volume score is122. The calculated vascular age for this patient is 75 years. There is no identifiable calcification in the aortic wall, mitralannulus/valve, pericardium, myocardium. -Coronary CT Angiography- Coronary Arteries: The coronaries have normal origin and proximal course. The coronaryarterial system is right dominant. Note: Stenosis is reported as maximum percentage diameter stenosis.Stenosis grading is reported using the following scheme. Quantitative Stenosis Grading: CAD-RADS 0: 0% - No visible stenosis CAD-RADS 1: 1-24% - Minimal stenosis CAD-RADS 2: 25-49% - Mild stenosis CAD-RADS 3: 50-69% - Moderate stenosis CAD-RADS 4A: 70-99% - Severe stenosis in 1-2 vessels CAD-RADS 4B: Left main >50%, or 3 vessel >70% CAD-RADS 5: 100% - Occluded Left Main: The left main bifurcates into the left anterior descendingartery and left circumflex artery. LAD and Diagonals: The left anterior descending artery demonstrates anormal anatomic course within the anterior left interventricular groove.There is one major diagonal branch. There is mixed calcific and softatheromatous plaque in the mid and distal segments of the LAD causing mildstenosis. LCx and Obtuse Marginals: The left circumflex demonstrates a normalanatomic course arising from the left main and coursing within the leftatrioventricular groove. There is one obtuse marginal branch. There ispredominantly calcific atheromatous plaque within the proximal circumflexartery causing minimal luminal stenosis. RCA: The right coronary artery demonstrates a normal anatomic origin fromthe right aortic cusp, with an unremarkable course in the rightatrioventricular groove. There are small foci of calcific atheroscleroticdisease in the proximal and mid segments without significant stenosis.There is focal motion artifact in the midsegment. Non Coronary Cardiac Findings: Normal cardiac chamber size. No pericardial thickening or calcification. Normal interatrial and interventricular septum, atrioventricular valves,ventriculo-arterial valves, pulmonary veins and imaged central veins. Central and branch pulmonary arteries in the field of view areunremarkable. Thoracic aorta and imaged thoracic aortic branches in the field of vieware unremarkable. Extra Cardiac Structures: Bibasilar dependent atelectasis. A right middle lobe granuloma is notedwith calcified lymphadenopathy. Small hiatal hernia. Otherwise, the visualized thoracic and upper abdominal structuresdemonstrates no additional abnormalities. IMPRESSION: 1. Moderate coronary calcification with an Agatston score = 158 using theAJ-130 method, which represents 95 percentile when matched for age, genderand ethnicity. Vascular age is 4 years. Technically difficult study withlimited sensitivity and specificity due to suboptimal image qualityrelated to photon starvation. In patients with BMI >45 kg/m2, female, or>50 kg/m2, male, the diagnostic quality is poor. 2. Mixed calcific and soft atherosclerotic disease within the mid anddistal segments of the LAD causing mild stenosis. Predominantly calcificplaque in the proximal circumflex with minimal stenosis. No significantstenosis of the RCA. 3. Plaque: Overall, there is (P2) moderate amount of total coronary plaquepresent. 4. Recommendations: CAD-RADS 2: Management recommendations: Considernon-atherosclerotic causes of symptoms. Consider risk factor modificationand preventive pharmacotherapy with high potency statin. 5 No significant non coronary cardiac findings in particular normalcardiac chambers, non-coronary vessels in the field of view andunremarkable pericardium. 6 Extracardiac structures in the field of view are unremarkable. Smallhiatal hernia. CRITICAL RESULT: No. COMMUNICATION: Per this written report. By electronically signing this report, I, the attending physician, richar I have personally reviewed the images/data for the aboveexamination(s) and agree with the final edited report. Drafted by Stefano Arias M.D. on 03/27/2023 1:53 PM Final report signed by Mohit Azevedo MD on 03/27/2023 8:49 PM Alea Juarez APRN IMG CT PROCEDURES Final Result * POCT creatinine (03/27/2023 11:52 AM EST) [facility] Creatinine, Point of Care 1.0 0.6 - 1.1 mg/dL 03/27/2023 11:57 AM EST [facility] POCT eGFR 65 mL/min/1. 73m*2 03/27/2023 11:57 AM EST [facility] Provider Network Mgr ID Gary Pratt 03/27/2023 11:57 AM EST [facility] Device ID [id number] 03/27/2023 11:57 AM EST [facility] Comment 03/27/2023 11:57 AM EST [facility] Comment:Testing performed on i-STAT at the point of care. Reported eGFRcr in mL/min/1.73m2 is based the CKD-EPI 2020 equation that does not use a race coefficient. Blood Venous blood specimen / Unknown 03/27/2023 11:52 AM EST 03/27/2023 11:57 AM EST us Generic Provider Poct LAB POINT OF CARE TEST DOCKED DEVICE UNSOLICITED RESULTS Final Result [facility] [address] [place] [address] documented in this encounter Visit Diagnoses Diagnosis Abnormal findings on diagnostic imaging of heart and coronary circulation Chest pain, unspecified Precordial chest pain Precordial pain documented in this encounter Administered Medications Inactive Administered Medications - up to 3 most recent administrations Medication Order MAR Action Action Date Dose Rate Site iohexol (OMNIPaque) 350 MG/ML injection 80 mL 80 mL, Intravenous, Once in imaging, 1 dose, Starting on Sun03/27/23 at 1149, Until Sun03/27/23 at 1348, Routine, Imaging Protocol Orders Given 03/27/2023 1:48 PM EST 100 mL metoprolol tartrate (Lopressor) injection 5 mg 5 mg, Intravenous, Every 5 min PRN, 6 doses, Starting on Sun03/27/23 at 1144, Until Sun03/28/23 at 0234, Routine, Intraprocedure, if oral dose ineffective or IV preferred Given 03/27/2023 1:14 PM EST 5 mg metoprolol tartrate (Lopressor) tablet 50 mg 50 mg, Oral, Once in imaging, 1 dose, Starting on Sun03/27/23 at 1143, Until Sun03/27/23 at 1236, Routine, Intraprocedure Given 03/27/2023 12:36 PM EST 50 mg nitroglycerin (Nitrostat) SL tablet 0.8 mg 0.8 mg, Sublingual, Every 5 min PRN, Starting on Sun03/27/23 at 1144, Until Sun03/27/23 at 2343, Routine, Intraprocedure, chest pain, oo Given 03/27/2023 1:23 PM EST 0.8 mg documented in this encounter Additional Health Concerns Assessment Noted Time A fall risk assessment has been complete d for the patient 08/23/2021 2:23 PM EDT documented as of this encounter Care Teams Traffic Ii Manager Relationship Specialty Start Date End Date Salima Gonzáles DO [facility] [place] [address] [place] [address] PCP - General 09/17/20 documented as of this encounter
--- OUTSIDE RECORDS SUMMARY | 2024-04-06 21:57 | XMS_ITS | Encounter Summary ---
Author Organization [employer] Address [address] [place] [address] Care Team Providers Care Outdoor Landscape Architect Name Role Phone Salima Gonzáles Primary Care Provider [phone] Encounter Details Date Type Department Care Team (Late st Contact Info) Description 10/03/2020 Transcribed Document [facility] [place] [facility] [place] [address] ProviderQuincy MD [address] [place] [address] Social History Tobacco Use Types Packs/Day Years Used Date Smoking Tobacco: Never Assessed Comments Unknown Sex and Gender Information Value Date Recorded Sex Assigned at Not on file Legal Sex Female 2:54 PM CDT Gender Identity Not on file Sexual Orientation Not on file documented as of this encounter Miscellaneous Notes * Cerner Conversion Note - Quincy ProviderMD - 10/03/2020 6:06 PM CDT Admission History, Adult Entered On: 10/04/2020 13:18 EDT Performed On: 10/04/2020 13:18 EDT by Hoa Coleman RN Advance Directive Patient has Advance Directive *Q : No, patient refuses Advance Directive information Hoa Coleman RN - 10/04/2020 13:17 EDT Anesthesia/Transfusion History Family History of Anesthesia Reaction : No prior transfusion(s) Transfusion History : Prior anesthesia reaction Type of Anesthesia Reaction : Other: exaserbates asthma Family History of Anesthesia Reaction : None Hoa Coleman RN - 10/04/2020 13:17 EDT Functional Assessment Living Situation : Home Persons Assisting Patient at Home : Alone Current Daily Living Assistance : None Mobility Assistance Prior to Admission : Independent SCHMITT Hx Falls Immediate/Within 3 Months : Yes Current Home Treatments : Nebulizer treatments Hoa Coleman RN - 10/04/2020 13:17 EDT General Info Arrived From : Acute Care Facility Mode of Arrival on Unit : Wheelchair Legal Guardian : Father Contact Password : Matt Parish Family/Rep/Phys Notified of Admit : No Emergency Contact #1 : Ambreen Neetu Emergency Contact #1 Emergency Contact #1 Relationship : daughter Emergency Contact #2 : Ray Aponte Emergency Contact #2 Emergency Contact #2 Relationship : father Primary Language : Finnish Communication Barrier : None Digital Developer Needed : No Hoa Coleman RN - 10/04/2020 13:17 EDT Fall Risk Scales ABCs Fall Injury Risk Identification : Coagulation ABC Fall Injury Risk : Moderate to high injury risk SCHMITT Hx Falls Immediate/Within 3 Months : Yes Schmitt Secondary Diagnosis : Yes SCHMITT Use of Ambulatory Aid : None SCHMITT IV Therapy or IV Access : Yes Schmitt Gait/Transferring : Normal, bedrest, immobile Schmitt Mental Status : Oriented to own ability Schmitt Fall Risk Score : 60 SCHMITT Fall Scale Risk Level : 46 or > High Risk [place] Fall Interventions : Adequate lighting, Assistive devices within reach, Bed in low position, Call device within reach, Frequent orientation to call device, Frequent orientation to surroundings, Hourly comfort/safety rounds, Non-slip footwear, Personal items within reach, Reinforced to call for assistance before getting out of bed, Room free of clutter/spills, Upper side-rails up, Wheels locked, Wires/Cords secured Hoa Coleman RN - 10/04/2020 13:17 EDT Health Histories Smoking Status : Former smoker, quit more than 30 days ago Smokeless Tobacco Status : Never Hoa Coleman RN - 10/04/2020 13:17 EDT Social History (As Of: 10/04/2020 13:18:35 EDT) Tobacco: Years of Use: 35. Packs/Tins Daily: 1. Second Hand Smoke Exposure: No. (Last Updated: 08/25/2014 15:15:30 EDT by KENY DIAZ RN) 10 or more cigarettes (1/2 pack or more)/day in last 30 days Smoking Status. Never Smokeless Tobacco Status. (Last Updated: 10/08/2019 09:19:36 EDT by Whitney Huynh Rn) Alcohol: Date/Time of Last Drink: 4 months ago. (Last Updated: 08/25/2014 15:15:57 EDT by KENY DIAZ RN) Alcohol Use History Yes. Use in Last 12 Months: No. Alcohol Use Frequency Rarely. (Last Updated: 10/08/2019 09:19:47 EDT by Whitney Huynh Rn) Substance Abuse: Drug Use Hx: No. (Last Updated: 10/08/2019 09:19:55 EDT by Whitney Huynh Rn) Height and Weight, Clinical Dosing Height Source : Stated Height Entry Format : [place] Height, Feet : 5 ft(Converted to: 152 cm, 60 Inch) Height, Inches : 1 Inch(Converted to: 0 ft 1 Inch, 2.54 cm) Clinical Height : 154.94 cm Weight Source : Bed scale Weight Entry Format : [place] Clinical Dosing Weight : 118.18 kg Weight, Pounds : 260 lb Body Surface Area (BSA) : 2.11 m2 Body Mass Index : 49.2 kg/m2 (>HHI) [place] Body Weight : 47 kg Hoa Coleman RN - 10/04/2020 13:17 EDT Infectious Disease History Has the patient ever been tested for COVID-19? : Yes, Patient stated results Negative Date of COVID-19 test known? : Yes Date of COVID-19 Test : 10/03/2020 EDT Does patient have symptoms of COVID-19? : No COVID19 Screening : No Experiencing Infectious Disease Symptoms : No symptoms Physical contact outside [place] in the last 30 days : No Infectious Disease History : C-Difficile, Chicken pox/Shingles, Influenza Tuberculosis Symptoms : None Hoa Coleman RN - 10/04/2020 13:17 EDT Tetanus Immunization Status Previous Tetanus Immunizations : No qualifying data available. Hoa Coleman RN - 10/04/2020 13:17 EDT Influenza Vaccine Asmt, Adult Previous Vaccines from Immunization Schedule : No qualifying data available. Influenza Immunization, Current Season : Yes Hoa Coleman RN - 10/04/2020 13:17 EDT Pneumococcal Vaccine Previous Vaccines from Immunization Schedule : No qualifying data available. Pneumonia Immunization Received : No Pneumococcal Risk Assessment < Age 65 : None Hoa Coleman RN - 10/04/2020 13:17 EDT Order Details Transport Mode Order Detail : Wheelchair Isolation Precautions Order Detail : Standard Precautions Order Detail : 0 IV Order Detail : 1 Oxygen Order Detail : 0 Lift/Transfer : Minimal Central Line Order Detail : No Room Service : Appropriate Arterial Line : No Patient Needs Meds Crushed/Liquid : No Hoa Coleman RN - 10/04/2020 13:17 EDT Nutrition History Eating Poorly Due to Decreased Appetite : No Unplanned Weight Loss in Past 3-6 Months : No Malnutrition Screening Tool Total(mal) : 0 Malnutrition Screening Tool Risk Level : Patient not at risk Hoa Coleman RN - 10/04/2020 13:17 EDT [place] Suicide Severity Rating Scale (C-SSRS) CSSRS Past Month Wish to be : No CSSRS Past Month Suicidal Thoughts : No CSSRS Lifetime Suicide Behavior : No Suicide Severity Rating Score : 0 Suicide Severity Rating : No Additional Care Required at this time Hoa Coleman RN - 10/04/2020 13:17 EDT Psychosocial History Currently in Unsafe Situation : No Hoa Coleman RN - 10/04/2020 13:17 EDT Sleep Apnea Risk Assmt Hx of Obstructive Sleep Apnea Diagnosis : No Snore Loudly : No Tired, Fatigued, or Sleepy During Day : No Observed Stopping Breathing During Sleep : No Have/Are Being Treated for Hypertension : No BMI Greater Than 35 kg/m2 : No Age over 50 Years Old : Yes Neck Circumference Greater Than 40 cm : No Gender Male : No STOP-BANG Sleep Apnea Risk Level Score : 1 Hoa Coleman RN - 10/04/2020 13:17 EDT Valuables and Belongings Valuables and Belongings : Clothing, Personal items Clothing : Common streetwear Clothing Disposition : Bedside Personal Items : Cell phone Personal Items Disposition : Bedside Hoa Coleman RN - 10/04/2020 13:17 EDT documented in this encounter Plan of Treatment Not on file documented as of this encounter Visit Diagnoses Not on filedocumented in this encounter Care Teams Outdoor Landscape Architect Relationship Specialty Start Date End Date Salima Gonzáles, DO 8 [facility] [address] [place] [address] PCP - General Family Medicine 02/09/23 documented as of this encounter
--- OUTSIDE RECORDS SUMMARY | 2024-04-06 21:57 | XMS_ITS | Encounter Summary ---
Author Organization Healthcare Address [address] [place] [address] Care Team Providers Care Design Tech Name Role Phone Salima Gonzáles DO Primary Care Provider [phone] Encounter Details Date Type Department Care Team (Latest Contact Info) Description 08/23/2021 Travel Social History Tobacco Use Types Packs/Day [...] Exposure Response Date Recorded In the last 10 days, have yo u been in contact with someone who was confirmed or suspected to have Coronavirus/COVID-19? No / Unsure 08/23/2021 1:32 PM EDT documented as of this encounter Plan of Treatment Not on file documented as of this encounter Visit Diagnoses Not on filedocumented in this encounter Additional Health Concerns Assessment Noted Time A fall risk assessment has been complete d for the patient 08/23/2021 2:23 PM EDT documented as of this encounter Care Teams Design Tech Relationship Specialty Start Date End Date Salima Gonzáles DO [address] [place] [address] PCP - General 09/17/20 documented as of this encounter
--- OUTSIDE RECORDS SUMMARY | 2024-04-06 21:57 | XMS_ITS | Encounter Summary ---
Author Organization [employer] Address [address] [place] [address] Care Team Providers Care Internet Marketing Intern Name Role Phone Salima Gonzáles Primary Care Provider [phone] Encounter Details Date Type Department Care Team (Late st Contact Info) Description 10/03/2020 Transcribed Document [facility] [place] [facility] [address] ProviderQuincy MD [address] [place] [address] Social History Tobacco Use Types Packs/Day Years Used Date Smoking Tobacco: Never Assessed Comments Unknown Sex and Gender Information Value Date Recorded Sex Assigned at Not on file Legal Sex Female 2:54 PM CDT Gender Identity Not on file Sexual Orientation Not on file documented as of this encounter Miscellaneous Notes * Cerner Conversion Note - Quincy ProviderMD - 10/03/2020 6:30 PM CDT Admission History, Adult Entered On: 10/03/2020 18:41 EDT Performed On: 10/03/2020 18:30 EDT by Cassie Colon RN Advance Directive Patient has Advance Directive *Q : No, patient refuses Advance Directive information Cassie Colon RN - 10/03/2020 18:30 EDT Anesthesia/Transfusion History Family History of Anesthesia Reaction : No prior transfusion(s) Transfusion History : Prior anesthesia reaction Type of Anesthesia Reaction : Other: exaserbates asthma Family History of Anesthesia Reaction : None Cassie Colon RN - 10/03/2020 18:30 EDT Functional Assessment Living Situation : Home Persons Assisting Patient at Home : Alone Current Daily Living Assistance : None Mobility Assistance Prior to Admission : Independent SCHMITT Hx Falls Immediate/Within 3 Months : Yes Current Home Treatments : Nebulizer treatments Cassie Colon RN - 10/03/2020 18:30 EDT General Info Arrived From : Acute [...] #2 Relationship : father Primary Language : Belarusian Communication Barrier : None Dredge Mechanic Needed : No Cassie Colon RN - 10/03/2020 18:30 EDT Fall Risk Scales ABCs Fall Injury Risk Identification : None SCHMITT Hx Falls Immediate/Within 3 Months : Yes Schmitt Secondary Diagnosis : No SCHMITT Use of Ambulatory Aid : None SCHMITT IV Therapy or IV Access : Yes Corey Gait/Transferring : Normal, bedrest, immobile Schmitt Mental Status : Oriented to own ability Schmitt Fall Risk Score : 45 SCHMITT Fall Scale Risk Level : 25-45 Medium Risk [place] Fall Interventions : Adequate lighting, Assistive devices within reach, Bed in low position, Call device within reach, Fall prevention handout/education per facility policy, Frequent orientation to call device, Frequent orientation to surroundings, Hourly comfort/safety rounds, Non-slip footwear, Personal items within reach, Reinforced to call for assistance before getting out of bed, Room free of clutter/spills, Upper side-rails up, Wheels locked, Wires/Cords secured Cassie Colon RN - 10/03/2020 18:30 EDT Health Histories Smoking Status : Former smoker, quit more than 30 days ago Smokeless Tobacco Status : Never Cassie Colon RN - 10/03/2020 18:30 EDT Social History (As Of: 10/03/2020 18:41:13 EDT) Tobacco: Years of Use: 35. Packs/Tins Daily: 1. Second Hand Smoke Exposure: No. (Last Updated: 08/25/2014 15:15:30 EDT by KENY DIAZ RN) 10 or more cigarettes (1/2 pack or more)/day in last 30 days Smoking Status. Never Smokeless Tobacco Status. (Last Updated: 10/08/2019 09:19:36 EDT by Whitney Huynh, [place]) Alcohol: Date/Time of Last Drink: 4 months ago. (Last Updated: 08/25/2014 15:15:57 EDT by KENY DIAZ, RN) Alcohol Use History Yes. Use in Last 12 Months: No. Alcohol Use Frequency Rarely. (Last Updated: 10/08/2019 09:19:47 EDT by Whitney Huynh, [place]) Substance Abuse: Drug Use Hx: No. (Last Updated: 10/08/2019 09:19:55 EDT by Whitney Huynh, [place]) Height and Weight, Clinical Dosing Height Source : Stated Height Entry Format : [place] Height, Feet : 5 ft(Converted to: 152 cm, 60 Inch) Height, Inches : 1 Inch(Converted to: 0 ft 1 Inch, 2.54 cm) Clinical Height : 154.94 cm Weight Source : Bed scale Weight Entry Format : [place] Clinical Dosing Weight : 118.18 kg Weight, Pounds : 260 lb Body Surface Area (BSA) : 2.11 m2 Body Mass Index : 49.2 kg/m2 (>HHI) [place] Body Weight : 47 kg Cassie Colon RN - 10/03/2020 18:30 EDT Infectious Disease History Has the patient [...] Chicken pox/Shingles, Influenza Tuberculosis Symptoms : None Cassie Colon RN - 10/03/2020 18:30 EDT Influenza Vaccine Asmt, Adult Previous Vaccines from Immunization Schedule : No qualifying data available. Influenza Immunization, Current Season : Yes Cassie Colon RN - 10/03/2020 18:30 EDT Pneumococcal Vaccine Previous Vaccines from Immunization Schedule : No qualifying data available. Pneumonia Immunization Received : No Pneumococcal Risk Assessment < Age 65 : None Cassie Colon RN - 10/03/2020 18:30 EDT Order Details Patient Needs Meds Crushed/Liquid : No Cassie Colon RN - 10/03/2020 18:30 EDT Nutrition History Eating Poorly Due to Decreased Appetite : No Unplanned Weight Loss in Past 3-6 Months : No Malnutrition Screening Tool Total(mal) : 0 Malnutrition Screening Tool Risk Level : Patient not at risk Cassie Colon RN - 10/03/2020 18:30 EDT [place] Suicide Severity Rating Scale (C-SSRS) CSSRS Past Month Wish to be : No CSSRS Past Month Suicidal Thoughts : No CSSRS Lifetime Suicide Behavior : No Suicide Severity Rating Score : 0 Suicide Severity Rating : No Additional Care Required at this time Cassie Colon RN - 10/03/2020 18:30 EDT Psychosocial History Currently in Unsafe Situation : No Cassie Colon RN - 10/03/2020 18:30 EDT Sleep Apnea Risk Assmt Hx of [...] Sleep Apnea Risk Level Score : 1 Cassie Colon RN - 10/03/2020 18:30 EDT Valuables and Belongings Valuables and Belongings : Clothing, Personal items Clothing : Common streetwear Clothing Disposition : Bedside Personal Items : Cell phone Personal Items Disposition : Bedside Cassie Colon RN - 10/03/2020 18:30 EDT Electronically signed by [place] [facility] Conversion Head Stock Operator Cerner at 08/23/2022 10:51 AM CDT documented in this encounter Plan of Treatment Not on file documented as of this encounter Visit Diagnoses Not on filedocumented in this encounter Care Teams Internet Marketing Intern Relationship Specialty Start Date End Date Salima Gonzáles DO 8 [facility] [address] [place] [address] PCP - General Family Medicine 02/09/23 documented as of this encounter
--- OUTSIDE RECORDS SUMMARY | 2024-04-06 21:57 | XMS_ITS | Encounter Summary ---
Author Organization [employer] Address [address] [place] [address] Care Team Providers Care Clinical Support Nurse Name Role Phone Salima Gonzáles Primary Care Provider [phone] Encounter Details Date Type Department Care Team (Late st Contact Info) Description 10/03/2020 Transcribed Document [facility] [place] [address] [place] [address] ProviderQuincy MD [address] [place] [address] Social History Tobacco Use Types Packs/Day Years Used Date Smoking Tobacco: Never Assessed Comments Unknown Sex and Gender Information Value Date Recorded Sex Assigned at Not on file Legal Sex Female 2:54 PM CDT Gender Identity Not on file Sexual Orientation Not on file documented as of this encounter Miscellaneous Notes * Cerner Conversion Note - Quincy ProviderMD - 10/03/2020 7:21 PM CDT Pain Assessment Entered On: 10/04/2020 11:29 EDT Performed On: 10/04/2020 7:35 EDT by Hoa Coleman RN Intervention Information: HYDROmorphone Performed by Lj Villarreal RN on 10/04/2020 07:05:00 EDT HYDROmorphone,0.2mg IV Push,Right Lower Forearm,Pain (Severe 7-10) Pain Assessment Pain Assessment : Follow-up assessment Pain Improved by Intervention : Yes Hoa Coleman RN - 10/04/2020 11:28 EDT documented in this encounter Plan of Treatment Not on file documented as of this encounter Visit Diagnoses Not on filedocumented in this encounter Care Teams Clinical Support Nurse Relationship Specialty Start Date End Date Salima Gonzáles DO [address] [id number] PCP - General Family Medicine 02/09/23 documented as of this encounter
--- OUTSIDE RECORDS SUMMARY | 2024-04-06 21:57 | XMS_ITS | Encounter Summary ---
Author Organization [employer] Address [address] [place] [address] Care Team Providers Care Processing Clerk Name Role Phone Unavailable Primary Care Provider Unavailabl e Encounter Details Date Type Department Care Team (Late st Contact Info) Description 10/08/2019 Historic Encounter [address] [address] ProviderScarlet Historical Social History Tobacco [...] Priority Date/Time Associated Diagnosis Comments GLUCOSE-POC Routine 10/08/2019 9:26 AM EDT documented in this encounter Results * Glucose, Point of Care (10/08/2019 9:26 AM EDT) Glucose POC2 108 70 - 110 mg/dL 10/08/2019 1:26 PM EDT [facility] Site Identification Specialist [id number] 10/08/2019 1:26 PM EDT [facility] Device SN [id number] 10/08/2019 1:26 PM EDT [facility] Device Comment1 No action Require 10/08/2019 1:26 PM EDT [facility] Blood 10/08/2019 9:26 AM EDT 10/08/2019 1:35 PM EDT us Sle Historical Provider POINT OF CARE TEST MARIMAR BRISCOE Final Result [facility] [address] [place] [address], [facility] [phone] documented in this encounter Visit Diagnoses Not on filedocumented in this encounter
--- OUTSIDE RECORDS SUMMARY | 2024-04-06 21:57 | XMS_ITS | Encounter Summary ---
Author Organization [employer] Address [address] [place] [address] Care Team Providers Care Dividing Machine Operator Name Role Phone Salima Gonzáles DO Primary Care Provider [phone] Encounter Details Date Type Department Care Team (Late st Contact Info) Description 10/08/2019 Transcribed Document [facility] [place] [address] ProviderQuincy MD [address] [place] [address] Social History Tobacco Use Types Packs/Day Years Used Date Smoking Tobacco: Never Assessed Comments Unknown Sex and Gender Information Value Date Recorded Sex Assigned at Not on file Legal Sex Female 2:54 PM CDT Gender Identity Not on file Sexual Orientation Not on file documented as of this encounter Miscellaneous Notes * Cerner Conversion Note - Quincy Kaet MD - 10/08/2019 9:30 AM CDT [facility] Endo PreOp Summary Primary Physician: WARREN MANRIQUE MD Finalized Date/Time: 10/08/19 09:35:21 Pt. Name: AMBIKA PIERRE/Sex: 1965 Female Med Rec #: [id number] Physician: WARREN MANRIQUE MD Financial #: [id number] Pt. Type: O Room/Bed: / Admit/Disch: 10/08/19 08:47:00 - Institution: [facility] Endo PreOp Case Times Entry 1 In Preop 10/08/19 09:08:00 Ready for Holding n/a Room Patient Ready for n/a Surgery Patient Out of Preop 10/08/19 09:33:00 Patient Out of n/a Holding Room Last Modified By: Whitney Huynh Rn 10/08/19 09:35:13 [facility] Endo PreOp Case Times Audit 10/08/19 09:35:13 Repeater Chief: WHITNEYLAWRENCE Modifier: HEATHERLAWRENCE <+> 1 Patient Out of Preop Finalized By: Whitney Huynh, Rn Document Signatures Signed By: Whitney Huynh Rn 10/08/19 09:35 documented in this encounter Plan of Treatment Not on file documented as of this encounter Visit Diagnoses Not on filedocumented in this encounter Care Teams Dividing Machine Operator Relationship Specialty Start Date End Date Salima Gonzáles, DO 8 [facility] [address] [place] [address] PCP - General Family Medicine 02/09/23 documented as of this encounter
--- OUTSIDE RECORDS SUMMARY | 2024-04-06 21:57 | XMS_ITS | Encounter Summary ---
Author Organization [employer] Address [address] [place] [address] Care Team Providers Care Grader Green Meat Name Role Phone Salima Gonzáles Primary Care Provider [phone] Encounter Details Date Type Department Care Team (Late st Contact Info) Description 10/04/2020 Transcribed Document [facility] [place] [address] [place] [address] ProviderQuincy MD [address] [place] [address] Social History Tobacco Use Types Packs/Day Years Used Date Smoking Tobacco: Never Assessed Comments Unknown Sex and Gender Information Value Date Recorded Sex Assigned at Not on file Legal Sex Female 2:54 PM CDT Gender Identity Not on file Sexual Orientation Not on file documented as of this encounter Miscellaneous Notes * Cerner Conversion Note - Quincy Kate MD - 10/04/2020 1:58 PM CDT DATE OF PROCEDURE: SURGEON: Gatito Menendez MD PREOPERATIVE DIAGNOSIS: Left renal calculus. POSTOPERATIVE DIAGNOSIS: Left renal calculus. PROCEDURES: 1. Ureteroscopy. 2. Laser lithotripsy. 3. Stent placement. DESCRIPTION OF PROCEDURE: After the induction of general anesthesia, the patient was prepped and draped in the dorsal lithotomy position. A 21-endoscope sheath was inserted under direct vision. The urethra was normal. Ureteral orifices were normal in position and configuration. There was no evidence of bladder tumor. Guidewire was passed up the left ureter to the level of the renal pelvis. Cystoscope was removed. Semi-rigid ureteroscope was inserted. This was advanced up the ureter to the renal pelvis. Stone was visualized. Laser fiber was inserted. Stone was fragmented in multiple small pieces. The laser fiber and ureteroscope were removed. Cystoscope was reinserted over the guidewire. A 6 x 24 double-J stent was passed over the guidewire and left indwelling. Bladder was drained of irrigating fluid, and the endoscope was removed. The patient tolerated the procedure well, left the operating room in satisfactory condition. /[id number] Gatito Menendez MD [facility]/AQ / [facility] / MODL /[id number] Electronically signed by [place] Conversion Conveyor Monitor Cerner at 08/23/2022 10:57 AM CDT documented in this encounter Plan of Treatment Not on file documented as of this encounter Visit Diagnoses Not on filedocumented in this encounter Care Teams Grader Green Meat Relationship Specialty Start Date End Date Salima Gonzáles, DO 8 [facility] [address] [place] [address] PCP - General Family Medicine 02/09/23 documented as of this encounter
--- OUTSIDE RECORDS SUMMARY | 2024-04-06 21:57 | XMS_ITS | Encounter Summary ---
Author Organization [employer] Address [address] [place] [address] Care Team Providers Care Machine Design Checker Name Role Phone Unavailable Primary Care Provider Unavailabl e Encounter Details Date Type Department Care Team (Late st Contact Info) Description 10/03/2020 Historic Encounter [address] [address] Provider [facility] Historical Social History Tobacco Use Types [...] Associated Diagnosis Comments CBC W/ AUTO DIFF ([facility] DATA CONV) Routine 10/03/2020 7:07 PM EDT documented in this encounter Results * CBC W/ AUTO DIFF ([facility] DATA CONV) (10/03/2020 7:07 PM EDT) WBC 7.2 4.5 - 10.5 K/uL 10/03/2020 11:13 PM EDT RBC 4.06 3.93 - 5.22 Million/uL 10/03/2020 11:13 PM EDT Hgb 12.5 11.2 - 15.7 g/dL 10/03/2020 11:13 PM EDT Hct 38.5 34.1 - 44.9 % 10/03/2020 11:13 PM EDT MCV 94.8 79.0 - 94.8 fL 10/03/2020 11:13 PM EDT MCH 30.8 25.6 - 32.2 pg 10/03/2020 11:13 PM EDT MCHC 32.5 32.2 - 36.5 Gram/dL 10/03/2020 11:13 PM EDT RDW 13.0 11.7 - 14.9 % 10/03/2020 11:13 PM EDT Platelet Count 280 163 - 369 K/uL 10/03/2020 11:13 PM EDT MPV 10.2 9.4 - 12.4 fL 10/03/2020 11:13 PM EDT Slide Review No 10/03/2020 11:14 PM EDT Blood 10/03/2020 7:07 PM EDT 10/03/2020 11:12 PM EDT [facility] Historical Provider LAB BLOOD ORDERABLES Fi nal Result [facility] [address] [phone] documented in this encounter Visit Diagnoses Not on filedocumented in this encounter
--- OUTSIDE RECORDS SUMMARY | 2024-04-06 21:57 | XMS_ITS | Encounter Summary ---
Author Organization Healthcare Address [address] [place] [address] Care Team Providers Care Slot Shift Manager Name Role Phone Salima Gonzáles DO Primary Care Provider [phone] Encounter Details Date Type Department Care Team (Latest Contact Info) Description 03/27/2023 Travel Social History Tobacco Use Types Packs/Day [...] documented as of this encounter Care Teams Slot Shift Manager Relationship Specialty Start Date End Date Salima Gonzáles DO [address] [place], [place] [address] [address] PCP - General 09/17/20 documented as of this encounter
--- OUTSIDE RECORDS SUMMARY | 2024-04-06 21:57 | XMS_ITS | Encounter Summary ---
Author Organization [employer] Address [address] [place] [address] Care Team Providers Care Machine Maintenance Technician Name Role Phone Salima Gonzáles DO Primary Care Provider [phone] Encounter Details Date Type Department Care Team (Late st Contact Info) Description 10/08/2019 Transcribed Document [facility] [place] [facility] [place] [address] ProviderQuincy MD [address] [place] [address] Social History Tobacco Use Types Packs/Day Years Used Date Smoking Tobacco: Never Assessed Comments Unknown Sex and Gender Information Value Date Recorded Sex Assigned at Not on file Legal Sex Female 2:54 PM CDT Gender Identity Not on file Sexual Orientation Not on file documented as of this encounter Miscellaneous Notes * Cerner Conversion Note - Quincy Kate MD - 10/08/2019 9:47 AM CDT [facility] Endo IntraOp Summary Primary Physician: WARREN MANRIQUE MD Finalized Date/Time: 10/08/19 10:06:04 Pt. Name: JACOB CHRISTINA AMBIKAMONICA Granados/Sex: 1965 Female Med Rec #: [id number] Physician: WARREN MANRIQUE MD Financial #: [id number] Pt. Type: O Room/Bed: / Admit/Disch: 10/08/19 08:47:00 - Institution: [facility] Endo - Case Attendance Entry 1 Entry 2 Entry 3 Case Attendee WARREN MANRIQUE MD DUNHAM, JEANNIE Thayer, Dena, RN Role Performed Surgeon/Proceduralist, Scrub, Svp Operations, First First Time In 10/08/19 09:38:00 10/08/19 09:38:00 10/08/19 09:38:00 Time Out 10/08/19 10:06:00 10/08/19 10:06:00 10/08/19 10:06:00 Procedure Esophagogastroduodenosco Gastric Biopsy, Colon Gastric Biopsy, Colon py, Colonoscopy, Biopsy Biopsy Gastric Biopsy, Colon Biopsy Other Attendee Superficial Wound Closed By: Last Modified By: Elizabeth Anaya, Elizabeth Schilling, Elizabeth Schilling RN 10/08/19 10:03:23 10/08/19 10:03:23 10/08/19 10:03:23 Entry 4 Entry 5 Entry 6 Case Attendee CASSI MARISCAL Hattie, DAKOTA Amaya MD-ANS Role Performed Scrub, First [employer] HELPER/Nurse Microelectronics Technician Anesthesiologist of Record Time In 10/08/19 09:38:00 10/08/19 09:38:00 10/08/19 09:38:00 Time Out 10/08/19 10:06:00 10/08/19 10:06:00 10/08/19 10:06:00 Procedure Gastric Biopsy, Colon Gastric Biopsy, Colon Gastric Biopsy, Colon Biopsy Biopsy Biopsy Other Attendee Superficial Wound Closed By: Last Modified By: Elizabeth Anaya RN Thayer, Dena, RN Thayer, Dena, RN 10/08/19 10:03:23 10/08/19 10:03:23 10/08/19 10:03:23 [facility] Endo - Case Attendance Audit 10/08/19 10:03:23 [place]: [id number] Modifier: [id number] 1 <+> Time Out 1 <*> Procedure Esophagogastroduodenoscopy, Colonoscopy, Gastric Biopsy, Colon Biopsy 2 <+> Time Out 2 <*> Procedure Gastric Biopsy, Colon Biopsy 3 <+> Time Out 3 <*> Procedure Gastric Biopsy, Colon Biopsy 4 <+> Time Out 4 <*> Procedure Gastric Biopsy, Colon Biopsy 5 <+> Time Out 5 <*> Procedure Gastric Biopsy, Colon Biopsy 6 <+> Time Out 6 <*> Procedure Gastric Biopsy, Colon Biopsy 10/08/19 10:02:21 [place]: [id number] Modifier: [id number] 1 <*> Procedure Esophagogastroduodenoscopy, Colonoscopy, Gastric Biopsy 2 <*> Procedure Gastric Biopsy 3 <*> Procedure Gastric Biopsy 4 <*> Procedure Gastric Biopsy 5 <*> Procedure Gastric Biopsy 6 <*> Procedure Gastric Biopsy 10/08/19 09:50:05 [place]: [id number] Modifier: [id number] 1 <*> Procedure Esophagogastroduodenoscopy, Colonoscopy <+> 2 Procedure <+> 3 Procedure <+> 4 Procedure <+> 5 Procedure <+> 6 Procedure 10/08/19 09:39:56 [place]: [id number] Modifier: [id number] 1 <+> Time In 1 <*> Procedure Esophagogastroduodenoscopy, Colonoscopy <+> 2 Time In <+> 3 Time In <+> 4 Time In <+> 5 Time In <+> 6 Time In 10/08/19 09:31:42 [place]: [id number] Modifier: [id number] <+> 2 Case Attendee <+> 2 Role Performed <+> 3 Case Attendee <+> 3 Role Performed <+> 4 Case Attendee <+> 4 Role Performed <+> 5 Case Attendee <+> 5 Role Performed <+> 6 Case Attendee <+> 6 Role Performed [facility] Endo - Case times Entry 1 Patient In Room Time 10/08/19 09:38:00 Out Room Time 10/08/19 10:06:00 Anesthesia Start Time 10/08/19 09:38:00 Stop Time 10/08/19 10:06:00 Surgery / Procedure Times Start Time 10/08/19 09:47:00 Stop Time 10/08/19 10:03:00 Last Modified By: Elizabeth Anaya, RN 10/08/19 10:03:21 [facility] Endo - Case times Audit 10/08/19 10:03:21 [place]: [id number] Modifier: [id number] <+> 1 Out Room Time <+> 1 Stop Time <+> 1 Stop Time 10/08/19 09:47:20 [place]: [id number] Modifier: [id number] <+> 1 Start Time [facility] Endo - Cultures and Spec Summary Entry 1 Cultrures and Specimens Specimen Ordered: Yes Test(s) Routine/Path-Lab Requested/Final Disposition Last Modified By: Elizabeth Anaya RN 10/08/19 09:50:17 [facility] Endo - Delays Entry 1 Delay Reason No Delay Duration 0 Minute(s) Last Modified By: Elizabeth Anaya RN 10/08/19 09:32:22 [facility] Endo - Departure from OR Entry 1 Integumentary Assessment Integumentary WDL Assessment WDL Transfer/Handoff Transfer to PACU Phase I Handoff Method Bedside/Face to face Post-op Transport Stretcher/Gurney Via Patient Transport Claudia Dupree Crna Accompanied by Last Modified By: Elizabeth Anaya RN 10/08/19 09:32:45 [facility] Endo - Endoscopy Details Entry 1 Abdomen Procedure Soft, Non-Tender Assessment Procedure Abdomen 10/08/19 09:32:00 Assessment D/T Radio Frequency Ablation Abdominal Pressure Last Modified By: Elizabeth Anaya RN 10/08/19 09:32:34 [facility] Endo - Fire Risk Assessment Entry 1 Fire Info Surgical Site or 1- Yes Incision Above the Xyphoid Open O2 Source 1- Yes (Mask or Cannula) Available Ignition 1- Yes (ESU, Laser, Light Source) Fire Risk 3 Assessment Score Fire Score Fire Risk Yes Assessment Complete Fire Risk Elizabeth Anaya RN Assessment Verified By Fire Risk 10/08/19 09:32:00 Assessment Verified Date/Time Fire Risk High Risk Protocol Yes Implemented Standard Fire Yes Safety Precautions Followed Last Modified By: Elizabeth Anaya RN 10/08/19 09:33:30 [facility] Endo - Fire Risk Assessment Audit 10/08/19 09:33:30 [place]: [id number] Modifier: [id number] <+> 1 Fire Risk Assessment Complete [facility] Endo - General Case Pediatric Allergist 1 Case Information OR Endo 03 [facility] Case Level 1 Room Verified Yes Wound Class III - Contaminated Specialty SN Gastroenterology Anesthesia Type General ASA Class 4 Diagnosis Preop Diagnosis dyspepsia, change in bowel habits Postop Same As Preop No Postop Diagnosis Chronic gastritis, history gastric bypass Last Modified By: Elizabeth Anaya RN 10/08/19 09:52:07 [facility] Endo - General Case Data Audit 10/08/19 09:52:07 [place]: [id number] Modifier: [id number] 1 <*> Postop Same As Preop Yes 1 <*> Postop Diagnosis dyspepsia, change in bowel habits 10/08/19 09:43:44 [place]: [id number] Modifier: [id number] 1 <*> Preop Diagnosis R19.7 R10.9 1 <*> Postop Diagnosis R19.7 R10.9 [facility] Endo - Intraoperative Assessment Entry 1 Valid History / Yes Physical in Chart Preoperative Yes Checklist Reviewed/Evaluated Patient is Latex No Sensitive Level of WDL Consciousness (WDL = Alert, Oriented to Person, Place, and Time) Last Modified By: Elizabeth Anaya RN 10/08/19 09:33:43 [facility] Endo - Intraoperative Equipment Entry 1 Equipment Intraop Monitoring Electrocardiogram Three lead placement (ECG) Electrode Placement Blood Pressure Arm, left upper Location Pulse Oximeter Hand, right Probe Site Antiembolic Devices Scopes Flexible Endoscopes Gastroscope Used Scope Serial E O Number/Identificatio n Number Photo/Video Documentation Photo Yes Video No Last Modified By: Elizabeth Anaya RN 10/08/19 09:43:26 [facility] Endo - Patient Positioning Entry 1 Procedure Esophagogastroduodenosco py, Gastric Biopsy, Colon Biopsy Body Position Lateral, right side up Left Arm Position Resting at side Right Arm Position Resting at side Left Leg Position Other Right Leg Position Other Position Comments Right leg over left leg, uncrossed Feet Uncrossed Yes Pressure Points Yes Checked Positioned By Claudia Dupree Crna, Elizabeth Anaya RN Position Verified Positioning Yes Verified by Surgeon Last Modified By: Elizabeth Anaya RN 10/08/19 10:02:22 [facility] Endo - Patient Positioning Audit 10/08/19 10:02:22 [place]: [id number] Modifier: [id number] 1 <*> Procedure Esophagogastroduodenoscopy, Gastric Biopsy 10/08/19 09:50:05 [place]: [id number] Modifier: [id number] 1 <*> Procedure Esophagogastroduodenoscopy [facility] Endo - Sign In Entry 1 Patient, Site, Yes Procedure Identified Surgical Consent Yes Confirmed Surgical Site N/A Marked by person performing procedure Airway Hypothermia Risk No Warming Measures No Taken Last Modified By: Elizabeth Anaya RN 10/08/19 09:34:14 [facility] Endo - Sign Out Entry 1 RN Confirmation Surgical Yes Procedure(s) Identified Instrument, Sponge N/A and Sharps Counts Correct/Documented Equipment Problems N/A Documented Specimen Labeled Yes Correctly Urinary Catheter N/A Documented in IView Safety Checklist Yes Elements Complete? RN Sign Out Elizabeth Anaya RN Signature RN Sign Out 10/08/19 10:06:00 Signature Date/Time Plan of Care Outcome - [...] of Care Outcome - Xray/Images OUTCOME STATEMENT: N/A Absence of observable signs or symptoms of radiation injury Plan of Care Outcome - Counts OUTCOME STATEMENT: N/A Absence of signs and symptoms of injury related to extraneous objects Last Modified By: Elizabeth Anaya RN 10/08/19 10:04:03 [facility] Endo - Surgical Procedures Entry 1 Entry 2 Entry 3 Procedure Esophagogastroduodenosco Colonoscopy Gastric Biopsy py Modifiers Additional biopsy fundus biopsy fundus Procedure Description Primary Procedure Yes No No Primary Surgeon WARREN MANRIQUE MD YONG, JUNE, MD YONG, JUNE, MD Start 10/08/19 09:47:00 10/08/19 09:53:00 10/08/19 09:47:00 Stop 10/08/19 09:50:00 10/08/19 10:03:00 10/08/19 09:49:00 Physician States 10/08/19 09:55:00 Cecum Reached Anesthesia Type MAC MAC MAC Specialty SN Gastroenterology SN Gastroenterology SN Gastroenterology Wound Class II - Clean-Contaminated III - Contaminated II - Clean-Contaminated Last Modified By: Elizabeth Anaya RN Thayer, Dena, RN Thayer, Dena, RN 10/08/19 09:50:35 10/08/19 10:03:34 10/08/19 09:51:41 Entry 4 Procedure Colon Biopsy Modifiers Additional random colon biopsy Procedure Description Primary Procedure No Primary Surgeon WARREN MANRIQUE MD Start 10/08/19 09:53:00 Stop 10/08/19 10:03:00 Physician States 10/08/19 09:55:00 Cecum Reached Anesthesia Type MAC Specialty SN Gastroenterology Wound Class III - Contaminated Last Modified By: Elizabeth Anaya RN 10/08/19 10:03:34 [facility] Endo - Surgical Procedures Audit 10/08/19 10:03:34 [place]: [id number] Modifier: [id number] 2 <*> Procedure Colonoscopy 2 <+> Stop <+> 4 Stop 10/08/19 10:02:18 [place]: [id number] Modifier: [id number] 2 <*> Procedure Colonoscopy 2 <*> Start 10/08/19 09:47:00 2 <+> Physician States Cecum Reached <+> 4 Procedure <+> 4 Primary Procedure <+> 4 Primary Surgeon <+> 4 Specialty <+> 4 Start <+> 4 Wound Class <+> 4 Anesthesia Type <+> 4 Additional Procedure Description <+> 4 Physician States Cecum Reached 10/08/19 09:51:41 [place]: [id number] Modifier: [id number] <*> Procedure Gastric Biopsy 3 <+> Stop 10/08/19 09:50:35 [place]: [id number] Modifier: [id number] 1 <*> Procedure Esophagogastroduodenoscopy 1 <+> Stop 10/08/19 09:50:01 [place]: [id number] Modifier: [id number] 1 <*> Procedure Esophagogastroduodenoscopy 1 <+> Start 1 <+> Additional Procedure Description <+> 2 Start <+> 3 Procedure <+> 3 Primary Procedure <+> 3 Primary Surgeon <+> 3 Specialty <+> 3 Start <+> 3 Wound Class <+> 3 Anesthesia Type <+> 3 Additional Procedure Description [facility] Endo - Time Out Entry 1 Procedure to be Esophagogastroduodenosco Performed py, Colonoscopy, Gastric Biopsy, Colon Biopsy Time Out Time Out Pause Time 10/08/19 09:44:00 All activity Yes suspended (unless life threatening emergency) Team Verbally Correct patient Confirms Information identity, Consent form is present and accurate, Agreement on the procedure to be done, Correct patient position, Relevant images/results properly labeled/appropriately displayed, Reconcile problems if responses among team members differ Antibiotic N/A Prophylaxis Administered Or In Progress Within the Last 60 Minutes Beta Nataliya N/A Administered Venous N/A Thromboembolism Prophylaxis Required Anticipated Critical Events Surgeon None expected Last Modified By: Elizabeth Anaya RN 10/08/19 10:02:22 [facility] Endo - Time Out Audit 10/08/19 10:02:22 [place]: [id number] Modifier: [id number] 1 <*> Procedure to be Performed Esophagogastroduodenoscopy, Colonoscopy, Gastric Biopsy 10/08/19 09:50:06 [place]: [id number] Modifier: [id number] 1 <*> Procedure to be Performed Esophagogastroduodenoscopy, Colonoscopy Case Comments <None> Finalized By: Elizabeth Anaya, RN Document Signatures Signed By: Elizabeth Anaya RN 10/08/19 10:06 Electronically signed by [place] [facility] Conversion Vein Pumper Cerner at 08/23/2022 10:56 AM CDT documented in this encounter Plan of Treatment Not on file documented as of this encounter Visit Diagnoses Not on filedocumented in this encounter Care Teams Machine Maintenance Technician Relationship Specialty Start Date End Date Salima Gonzáles, [address] [facility] [address] [place] [address] PCP - General Family Medicine 02/09/23 documented as of this encounter
--- OUTSIDE RECORDS SUMMARY | 2024-04-06 21:57 | XMS_ITS | Encounter Summary ---
Author Organization [employer] Address [address] [place] [address] Care Team Providers Care Embedded Software Programmer Name Role Phone Salima Gonzáles Primary Care Provider [phone] Encounter Details Date Type Department Care Team (Late st Contact Info) Description 10/03/2020 Transcribed Document [facility] [place] [address] [place] [address] ProviderQuincy MD [address] [place] [id number] Social History Tobacco Use Types Packs/Day Years Used Date Smoking Tobacco: Never Assessed Comments Unknown Sex and Gender Information Value Date Recorded Sex Assigned at Not on file Legal Sex Female 2:54 PM CDT Gender Identity Not on file Sexual Orientation Not on file documented as of this encounter Miscellaneous Notes * Cerner Conversion Note - Quincy Kate MD - 10/03/2020 7:04 PM CDT Pain Assessment Entered On: 10/05/2020 3:30 EDT Performed On: 10/05/2020 3:51 EDT by Janae Avery LPN Intervention Information: acetaminophen Performed by Janae Avery LPN on 10/05/2020 02:51:00 EDT acetaminophen,650mg Oral,Pain (Mild 1-3) Pain Assessment Pain Assessment : Follow-up assessment Pain Scale Goal : 3 Pain Scale Used : 0-10 Scale Location : Headache, sinus Onset : Acute Quality : Squeezing Pain Radiation : No Pain Intervention, Drug : Medicated Opioid Adverse Effects : None Pain Improved by Intervention : Yes Janae Avery LPN - 10/05/2020 3:28 EDT Pain Scale Intensity : 3 Janae Avery, COMPUTING MACHINE OPERATOR - 10/05/2020 3:28 EDT Image 4 - Images currently included in the form version of this document have not been included in the text rendition version of the form. documented in this encounter Plan of Treatment Not on file documented as of this encounter Visit Diagnoses Not on filedocumented in this encounter Care Teams Embedded Software Programmer Relationship Specialty Start Date End Date Salima Gonzáles, [address] [facility] [address] [place] [address] PCP - General Family Medicine 02/09/23 documented as of this encounter
--- OUTSIDE RECORDS SUMMARY | 2024-04-06 21:57 | XMS_ITS | Encounter Summary ---
Author Organization Healthcare Address [address] [place] [address] Care Team Providers Care Core Measures Abstractor Name Role Phone Salima Gonzáles DO Primary Care Provider [phone] Encounter Details Date Type Department Care Team (Latest Contact Info) Description 03/20/2023 Travel Social History Tobacco Use Types Packs/Day [...] documented as of this encounter Care Teams Core Measures Abstractor Relationship Specialty Start Date End Date Salima Gonzáles DO [address] [place], [place] [address] [place] [address] PCP - General 09/17/20 documented as of this encounter
--- OUTSIDE RECORDS SUMMARY | 2024-04-06 21:57 | XMS_ITS | Encounter Summary ---
Author Organization [employer] Address [address] [place] [address] Care Team Providers Care Security Patrol Driver Name Role Phone Unavailable Primary Care Provider Unavailabl e Encounter Details Date Type Department Care Team (Late st Contact Info) Description 10/03/2020 Historic Encounter [address] [address] Provider [facility] Historical Social History Tobacco [...] Priority Date/Time Associated Diagnosis Comments AUTOMATED DIFFERENTIAL ([facility] DATA CONV) Routine 10/03/2020 7:07 PM EDT documented in this encounter Results * (ABNORMAL) AUTOMATED DIFFERENTIAL ([facility] DATA CONV) (10/03/2020 7:07 PM EDT) Neut% 53.9 34.0 - 71.0 % 10/03/2020 11:13 PM EDT Lymph% 35.6 19.3 - 53.1 % 10/03/2020 11:13 PM EDT [place]% 7.7 3.0 - 9.0 % 10/03/2020 11:13 PM EDT Eos% 1.5 0.0 - 7.0 % 10/03/2020 11:13 PM EDT Baso% 0.6 0.0 - 1.5 % 10/03/2020 11:13 PM EDT IG% 0.70(H) 0.00 - 0.60 % 10/03/2020 11:13 PM EDT Neut# 3.90 1.56 - 6.13 K/uL 10/03/2020 11:13 PM EDT Lymph# 2.58 1.00 - 3.90 x10(3)/uL 10/03/2020 11:13 PM EDT [place]# 0.56 0.16 - 1.00 K/uL 10/03/2020 11:13 PM EDT Eos# 0.11 0.00 - 0.80 x10(3)/uL 10/03/2020 11:13 PM EDT Baso# 0.04 0.00 - 0.20 x10(3)/uL 10/03/2020 11:13 PM EDT IG# 0.05 0.00 - 0.05 x10(3)/uL 10/03/2020 11:13 PM EDT Blood 10/03/2020 7:07 PM EDT 10/03/2020 11:12 PM EDT Narrative [facility] - 10/03/2020 11:14 PM EDT Added by Discern Expert us Sle Historical Provider LAB BLOOD ORDERABLES Fi nal Result [facility] [address] [phone] documented in this encounter Visit Diagnoses Not on filedocumented in this encounter
--- OUTSIDE RECORDS SUMMARY | 2024-04-06 21:57 | XMS_ITS | Encounter Summary ---
Author Organization Healthcare Address [address] [place], [place] [address] Care Team Providers Care Insurance Account Representative Name Role Phone Salima Gonzáles Primary Care Provider [phone] Reason for Visit * Reason Comments Follow-up Encounter Details Date Type Department Care Team ([facility] st Contact Info) Description 08/23/2021 2:40 PM EDT Office Visit Medical Office Building [facility] [address], [address] [place] [address] Bebeto Flynn MD [address] [place] [address] Closed fracture of distal end of left femur with routine healing, unspecified fracture morphology, subsequent encounter (Primary Dx) Social History Tobacco Use Types [...] PM EDT documented as of this encounter Last Filed Vital Signs Vital Sign Reading Time Taken Comments Blood Pressure 124/84 08/23/2021 2:24 PM EDT Pulse 67 08/23/2021 2:24 PM EDT Temperature - - Respiratory Rate - - Oxygen Saturation - - Inhaled Oxygen Concentration - - Weight 121 kg (265 lb 10.5 oz) 08/23/2021 2:24 P M EDT Height 154.9 cm (5' 1 ) 08/23/2021 2:24 PM EDT Body Mass Index 50.19 08/23/2021 2:24 PM EDT documented in this encounter Miscellaneous Notes * Progress Notes - Bebeto Flynn MD - 08/23/2021 2:40 PM EDT S/p ORIF w/ Retrograde IMN of Left PeriProsthetic Distal Femur Fx (05/01/21). No issues during recovery and discharged home POD#5. No issues at 2wk visit (05/17/21) or at 6wk visit (06/07/21). Some pain about the medial knee but overall happy w/ her progress. Is still working on quad strengthening. Has also been working on weight management but has had social stressors and appreciates having gained weight. She has family living w/ her which has made avoiding unhealthy foods difficult. No other issues. Incision healed. 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 Ambulates w/out assist device and w/out limitation. BMI, 50. XR of femur today show abundant callous formation and no obvious issues w/ implants. F/u PRN. documented in this encounter Plan of Treatment Not on file documented as of this encounter Visit Diagnoses Diagnosis Closed fracture of distal end of left femur with routine healing, unspecified fracture morphology, subsequent encounter- Primary documented in this encounter Additional Health Concerns Assessment Noted Time A fall risk assessment has been complete d for the patient 08/23/2021 2:23 PM EDT documented as of this encounter Care Teams Insurance Account Representative Relationship Specialty Start Date End Date Salima Gonzáles DO [address] [place], [place] [address] PCP - General 09/17/20 documented as of this encounter
--- OUTSIDE RECORDS SUMMARY | 2024-04-06 21:57 | XMS_ITS | Encounter Summary ---
Author Organization [employer] Address [address] [place] [address] Care Team Providers Care Gate Cutter Name Role Phone Salima Gonzáles DO Primary Care Provider [phone] Encounter Details Date Type Department Care Team (Late st Contact Info) Description 10/08/2019 Transcribed Document [facility] [place] [facility] [place] [address] ProviderQuincy MD [address] [place] [address] Social History Tobacco Use Types Packs/Day [...] Kate MD - 10/08/2019 9:47 AM CDT [facility] Endo PACU Summary Primary Physician: WARREN MANRIQUE MD Finalized Date/Time: 10/08/19 10:47:05 Pt. Name: AMBIKA PIERRE/Sex: 1965 Female Med Rec #: [id number] Physician: WARREN MANRIQUE MD Financial #: [id number] Pt. Type: O Room/Bed: / Admit/Disch: 10/08/19 08:47:00 - Institution: [facility] PACU Case Times Entry 1 In PACU I 10/08/19 10:09:00 Ready for PACU 10/08/19 10:42:00 Discharge Discharge from PACU 10/08/19 10:45:00 I Last Modified By: Yasmine Al RN 10/08/19 10:43:05 [facility] Endo PACU Case Times Audit 10/08/19 10:45:09 Chainstitch Felled Seam Operator: [id number] Modifier: [id number] <+> 1 Discharge from PACU I Finalized By: Yasmine Al RN Document Signatures Signed By: Yasmine Al RN 10/08/19 10:47 Electronically signed by [facility] Conversion Production Line Worker Cerner at 08/23/2022 10:59 AM CDT documented in this encounter Plan of Treatment Not on file documented as of this encounter Visit Diagnoses Not on filedocumented in this encounter Care Teams Gate Cutter Relationship Specialty Start Date End Date Salima Gonzáles, [address] [facility] [address] [place] [address] PCP - General Family Medicine 02/09/23 documented as of this encounter
--- OUTSIDE RECORDS SUMMARY | 2024-04-06 21:57 | XMS_ITS | Encounter Summary ---
Author Organization Healthcare Address [address] [place] [address] Care Team Providers Care Linotype Operator Name Role Phone EliecerSalima Primary Care Provider [phone] Encounter Details Date Type Department Care Team (Latest Contact Info) Description 08/23/2021 1:38 PM EDT - 08/23/2021 11:59 PM EDT Hospital Encounter Medical Office Building Radiology [facility] [place] [address] Closed fracture of distal end of left femur with routine healing, unspecified fracture morphology, subsequent encounter Discharge Disposition: Home or Self Care Social [...] PM EDT documented as of this encounter Medications at [...] by mouth 1 (one) time each day. senna-docusate (Nia-Colace) 8.6-50 MG tablet Take 2 tablets by mouth 2 (two) times a day. 120 tablet 11 05/06/2021 2 documented as of this encounter Plan of Treatment Not on file documented as of this encounter Procedures Procedure Name Priority Date/Time Associated Diagnosis Comments XR FEMUR LEFT 2+ VIEWS Routine 08/23/2021 1:58 PM EDT Closed fracture of distal end of left femur with routine healing, unspecified fracture morphology, subsequent encounter documented in this encounter Results * XR Femur Left 2+ Views (08/23/2021 1:58 PM EDT) Anatomical Region Laterality Modality Lower Extremities, Femur Left Digital Radiography Impressions 08/23/2021 10:36 PM EDT Intact hardware with healed fracture. CRITICAL RESULT: ?? No. COMMUNICATION: Per this written report. Dictated by Oleg Stewart on 08/23/2021 10:34 PM Signed by Oleg Stewart on 08/23/2021 10:36 PM Narrative 08/23/2021 10:36 PM EDT Exam/Procedure: XR FEMUR LEFT 2+ VIEWS ordered by NEELA FLYNN, [id number] CLINICAL INDICATION: Left hand pain. TECHNIQUE: XR FEMUR LEFT 2+ VIEWS COMPARISON: Left femur radiographs dated 06/07/2021. FINDINGS: Retrograde left femoral nail. Left total knee prosthesis. Healed distal femur fracture. No soft tissue swelling or joint effusion. Procedure Note Oleg Stewart MD - 08/23/2021 Exam/Procedure: XR FEMUR LEFT 2+ VIEWS ordered by NEELA FLYNN, [id number] CLINICAL INDICATION: Left hand pain. TECHNIQUE: XR FEMUR LEFT 2+ VIEWS COMPARISON: Left femur radiographs dated 06/07/2021. FINDINGS: Retrograde left femoral nail. Left total knee prosthesis. Healed distalfemur fracture. No soft tissue swelling or joint effusion. IMPRESSION: Intact hardware with healed fracture. CRITICAL RESULT: No. COMMUNICATION: Per this written report. Dictated by Oleg Stewart on 08/23/2021 10:34 PM Signed by Oleg Stewart on 08/23/2021 10:36 PM Neela Flynn MD IMG XR PROCEDURES Final Result documented in this encounter Visit Diagnoses Diagnosis Closed fracture of distal end of left femur with routine healing, unspecified fracture morphology, subsequent encounter documented in this encounter Additional Health Concerns Assessment Noted Time A fall risk assessment has been complete d for the patient 08/23/2021 2:23 PM EDT documented as of this encounter Care Teams Linotype Operator Relationship Specialty Start Date End Date Salima Gonzláes DO [address] [place], [place] [address] [place], [place] [id number] PCP - General 09/17/20 documented as of this encounter
--- OUTSIDE RECORDS SUMMARY | 2024-04-06 21:57 | XMS_ITS | Encounter Summary ---
Author Organization [facility] Address [address] [id number] Care Team Providers Care Tabular Typist Name Role Phone Salima Gonzáles Primary Care Provider [phone] Reason for Visit * Reason Onset Date Comments HCN - Patient Message 08/03/2022 Encounter Details Date Type Department Care Team ([facility] st Contact Info) Description 08/03/2022 Telephone Medical Office Building Surgery Spine & Joint [address] [facility], [address] [place] [address] Bebeto Flynn MD [address] [place] [address] HCN - Patient Message Social History Tobacco Use Types Packs/Day Years [...] encounter Miscellaneous Notes * Telephone Encounter - Janae Armstrong RN - 08/03/2022 3:31 PM EDT Appt rescheduled, patient aware. * Telephone Encounter - Crow Bowie - 08/03/2022 1:10 PM EDT Clinical Concern/Question Reason for Call: Dr. Flynn pt is requesting a call back from a nurse to discuss worsening leg pain.She was last seen in clinic in August 2021. F/u was scheduled for first available on 09/25, but she said that she would still like to discuss her symptoms with a member of the clinical team ahead of that appt. Best contact number: [phone] Optimal time of day to reach caller: ANYTIME Additional comments/information from caller: None Note: Please do not reply to this message. Follow-up communication and further actions as a result of this message need to be communicated with the patient directly, if the patient is not active onMyChart. If the patient is active on MyChart, they will receive notification of the communication/outcome via [employer]. documented in this encounter Plan of Treatment Not on file documented as of this encounter Visit Diagnoses Not on filedocumented in this encounter Additional Health Concerns Assessment Noted Time A fall risk assessment has been complete d for the patient 08/23/2021 2:23 PM EDT documented as of this encounter Care Teams Tabular Typist Relationship Specialty Start Date End Date Salima Gonzáles DO [address] [place], [place] [address] PCP - General 09/17/20 documented as of this encounter
--- OUTSIDE RECORDS SUMMARY | 2024-04-06 21:57 | XMS_ITS | Encounter Summary ---
Author Organization [employer] Address [address] [place] [address] Care Team Providers Care Sack Sewer Name Role Phone Salima Gonzáles Primary Care Provider [phone] Encounter Details Date Type Department Care Team (Late st Contact Info) Description 10/08/2019 Transcribed Document [facility] [place] Family Medicine [facility] [place] [address] ProviderQuincy MD [address] [place] [address] Social History Tobacco Use Types Packs/Day Years Used Date Smoking Tobacco: Never Assessed Comments Unknown Sex and Gender Information Value Date Recorded Sex Assigned at Not on file Legal Sex Female 2:54 PM CDT Gender Identity Not on file Sexual Orientation Not on file documented as of this encounter Miscellaneous Notes * Cerner Conversion Note - Quincy Kate MD - 10/08/2019 10:26 AM CDT [facility] [place] [address] AMBIKA PIERRE :1965 Visit Time:10/08/2019 What [...] office, November 09 at 11:00am Where: [address] [facility] [address] [place] [id number]- Medications What How Much When Instructions Next [...] serving. ??? Talk with a diet and nutrition educator (dietitian) if you have questions about specific [...] Bulgur wheat. Millet. Quinoa. Bran muffins. Popcorn. [place] wafer crackers. Meats and other proteins [place], kidney, and cox beans. Soybeans. Split peas. [...] Cream cheese. Sour cream. Fats and oils [place]. Beverages Soft drinks. Other foods Cakes and [...] 04/23/2006 Document Revised: 02/25/2018 Document Reviewed: 02/25/2018 [employer] Interactive Patient Education ?? 2019 [employer]. Gastritis, Adult Gastritis is swelling (inflammation) of [...] these instructions at home: Medicines ??? Take pbbn-qqv-aiqujgn and prescription medicines only as told by [...] 10/09/2008 Document Revised: 09/10/2018 Document Reviewed: 09/10/2018 [employer] Interactive Patient Education ?? 2019 [employer]. Colitis Colitis is inflammation of the colon. [...] you start to feel better. ??? Take imjr-vyp-pxrgeuq and prescription medicines only as told by [...] 05/31/2005 Document Revised: 10/24/2018 Document Reviewed: 10/24/2018 [employer] Interactive Patient Education ?? 2019 [employer]. Hemorrhoids Hemorrhoids are swollen veins that [...] times a day. General instructions ??? Take mqyp-hzg-iojblmv and prescription medicines only as told by [...] 01/30/2009 Document Revised: 09/12/2018 Document Reviewed: 09/12/2018 [employer] Interactive Patient Education ?? 2019 [employer]. Colonoscopy, Adult, Care After This sheet gives [...] soft and easy to digest. ??? Take slfn-mxh-vhzbsbp or prescription medicines only as told by [...] 05/26/2011 Document Revised: 02/21/2018 Document Reviewed: 01/15/2017 [employer] Interactive Patient Education ?? 2019 [employer]. Esophagogastroduodenoscopy, Care After Refer to this [...] 04/09/2013 Document Revised: 09/28/2016 Document Reviewed: 03/16/2016 [employer] Interactive Patient Education ?? 2019 [employer]. metronidazole (me irma hawk) FIRST Metronidazole, Flagyl, [...] (more likely to occur while taking metronidazole shelter): ?? numbness, tingling, or burning pain in [...] may report side effects to FDA at 1-830-RUR-1042. What other drugs will affect metronidazole? Sometimes [...] drugs may affect metronidazole, including prescription and wxns-kkl-ajnejhn medicines, vitamins, and herbal products. Not all [...] to ensure that the information provided by [employer]. ('[employer]') is accurate, up-to-date, and complete, but no guarantee is made to that effect. Drug information contained herein may be time sensitive. [employer] information has been compiled for use by healthcare practitioners and consumers in the [place] and therefore [employer] does not warrant that uses outside of the [place] are appropriate, unless specifically indicated otherwise. [employer] drug information does not endorse drugs, diagnose patients or recommend therapy. [employer] drug information is an informational resource designed [...] effective or appropriate for any given patient. [employer] does not assume any responsibility for any aspect of healthcare administered with the aid of information [employer] provides. The information contained herein is not intended to cover all possible uses, directions, precautions, warnings, drug interactions, allergic reactions, or adverse effects. If you have questions about the drugs you are taking, check with your doctor, nurse or pharmacist. Copyright 3010-7144 [employer]. Version: 12.. Revision Date: 02/25/2018. linaclotide (GENEVIEVE [...] may report side effects to FDA at 4-652-FBN-8847. What other drugs will affect linaclotide? Other drugs may interact with linaclotide, including prescription, yafd-gse-rmpbqja, vitamin, and herbal products. Tell your doctor [...] to ensure that the information provided by [employer]. ('[employer]') is accurate, up-to-date, and complete, but no guarantee is made to that effect. Drug information contained herein may be time sensitive. [employer] information has been compiled for use by healthcare practitioners and consumers in the [place] and therefore [employer] does not warrant that uses outside of the [place] are appropriate, unless specifically indicated otherwise. [employer] drug information does not endorse drugs, diagnose patients or recommend therapy. [employer] drug information is an informational resource designed [...] effective or appropriate for any given patient. [employer] does not assume any responsibility for any aspect of healthcare administered with the aid of information [employer] provides. The information contained herein is not intended to cover all possible uses, directions, precautions, warnings, drug interactions, allergic reactions, or adverse effects. If you have questions about the drugs you are taking, check with your doctor, nurse or pharmacist. Copyright 4512-0755 [employer]. Version: 4.02. Revision Date: 01/23/2017. pantoprazole (oral/injection) [...] a broken bone while taking this medicine shelter or more than once per day. What [...] may report side effects to FDA at 2-516-UQR-0480. What other drugs will affect pantoprazole? Tell your doctor about all your other medicines, especially: ?? digoxin; ?? methotrexate; or ?? a diuretic or 'water pill.' This list is not complete. Other drugs may affect pantoprazole, including prescription and uscc-zzj-xyswvzv medicines, vitamins, and herbal products. Not all [...] to ensure that the information provided by [employer]. ('[employer]') is accurate, up-to-date, and complete, but no guarantee is made to that effect. Drug information contained herein may be time sensitive. [employer] information has been compiled for use by healthcare practitioners and consumers in the [place] and therefore [employer] does not warrant that uses outside of the [place] are appropriate, unless specifically indicated otherwise. [employer] drug information does not endorse drugs, diagnose patients or recommend therapy. [employer] drug information is an informational resource designed [...] effective or appropriate for any given patient. [facility] does not assume any responsibility for any aspect of healthcare administered with the aid of information [facility] provides. The information contained herein is not intended to cover all possible uses, directions, precautions, warnings, drug interactions, allergic reactions, or adverse effects. If you have questions about the drugs you are taking, check with your doctor, nurse or pharmacist. Copyright 6983-5469 [facility]. Version: 19.02. Revision Date: 10/30/2017. Emergency Awareness [...] Assistance with quitting is available by contacting 4-037-RCLG-NOW. This is a free resource providing counseling, [...] was given the opportunity to ask questions. Patient/Ship Steward Name: Patient/Ship Steward Signature: Relationship to Patient: Clinician/Hospital Ship Steward Signature: Date: Electronically signed by Nuzhat Barahona Conversion Field Installation Technician Michael at 08/23/2022 10:58 AM CDT documented in this encounter Plan of Treatment Not on file documented as of this encounter Visit Diagnoses Not on filedocumented in this encounter Care Teams Sack Sewer Relationship Specialty Start Date End Date Salima Gonzáles DO [address] [facility] [address] [place] [id number] PCP - General Family Medicine 02/09/23 documented as of this encounter
--- OUTSIDE RECORDS SUMMARY | 2024-04-06 21:57 | XMS_ITS | Encounter Summary ---
Author Organization [employer] Address [address] [place] [address] Care Team Providers Care Charter Driver Name Role Phone Salima Gonzáles Primary Care Provider [phone] Encounter Details Date Type Department Care Team (Late st Contact Info) Description 10/03/2020 Transcribed Document [facility] [place] [facility] [place] [address] ProviderQuincy MD [address] [place] [address] Social History Tobacco Use Types Packs/Day [...] 7:04 PM CDT Pain Assessment Entered On: 10/04/2020 1:22 EDT Performed On: 10/03/2020 19:47 EDT by Lj Villarreal RN Intervention Information: acetaminophen-HYDROcodone Performed by Cassie Colon RN on 10/03/2020 18:47:00 EDT acetaminophen-HYDROcodone,1Tab Oral,Pain (Mild 1-3) Pain Assessment Pain Assessment : Initial assessment Pain Scale Goal : 3 Pain Scale Used : FACES Lj Villarreal RN - 10/04/2020 1:21 EDT Pain Scale Intensity : 1 Lj Villarreal RN - 10/04/2020 1:21 EDT Image 4 - Images currently included in the form version of this document have not been included in the text rendition version of the form. documented in this encounter Plan of Treatment Not on file documented as of this encounter Visit Diagnoses Not on filedocumented in this encounter Care Teams Charter Driver Relationship Specialty Start Date End Date Salima Gonzáles, DO [address] [address] PCP - General Family Medicine 02/09/23 documented as of this encounter
--- OUTSIDE RECORDS SUMMARY | 2024-04-06 21:57 | XMS_ITS | Encounter Summary ---
Author Organization [employer] Address [address] [place] [address] Care Team Providers Care Dental Hygienist Name Role Phone Salima Mi DO Primary Care Provider [phone] Encounter Details Date Type Department Care Team (Late st Contact Info) Description 10/03/2020 Transcribed Document [facility] [place] [address] [place] [address] ProviderQuincy MD [address] [place] [id number] Social History Tobacco Use Types Packs/Day Years Used Date Smoking Tobacco: Never Assessed Comments Unknown Sex and Gender Information Value Date Recorded Sex Assigned at Not on file Legal Sex Female 2:54 PM CDT Gender Identity Not on file Sexual Orientation Not on file documented as of this encounter Miscellaneous Notes * Cerner Conversion Note - Quincy Kate MD - 10/03/2020 7:12 PM CDT Patient: AMBIKA PIERRE Age: 54 Years Sex: Female : 1965 Primary Care Provider SALIMA MI DO-[facility] History of Present Illness Ms. Aponte is a 54-year-old female with zbc-zqlsspo-epxpgovyy diabetes, asthma and COPD with continued tobacco use, history of kidney stones, obesity. She was transferred to [facility] from [facility] on 10/03 for hydronephrosis and obstructing kidney stone. She tells me that she has had kidney stones in the past, most recently about a year ago. She has had to have surgical intervention twice. She says that her pain first began about a month ago and was initially intermittent. It has worsened over the last few weeks and moved from her lower abdomen into her back. Now the the pain is constant. She says it hurts tremendously when in a car, any significant movement, or eating. Reports dark urine. She has had some diaphoresis, no fevers or chills. No vomiting, diarrhea, constipation. Dr. Rachel of urology at this facility agreed to consult with patient. Pertinent findings at OSH: UA 3+ blood, 50-100 RBC. All other labs eluding AVC, platelet, creatinine were normal. CT abdomen pelvis showed an 8 mm calculus in the left renal pelvis with mild hydronephrosis and mild inflammation along renal pelvis and ureter. On arrival to our facility, vital signs are stable. Repeat labs are pending. Review of Systems Constitutional: No fevers, no chills, + sweats Eye: No recent visual problems ENMT: No change in hearing, no nasal congestion, no sore throat Respiratory: No shortness of breath, + cough Cardiovascular: No Chest pain, no palpitations, no syncope Gastrointestinal: + pain, no vomiting, no diarrhea Genitourinary: No hematuria, + dysuria Vital Signs T: 36.9 ??C HR: 69(Monitored) RR: 16 BP: 129/68 SpO2: 93% HT: 154.94 cm WT: 118.18 kg BMI: 49.2 Oxygen Settings (Last) Oxygen Therapy Mode: Room air (10/03/20 18:49:00) Physical Exam General: Alert, well nourished, diaphoretic Neurologic: Moves all 4 extremities spontaneously, oriented X3, no focal deficits appreciated Eye: pupils equal, EOMI, normal conjunctiva HENT: Normocephalic, normal hearing, moist oral mucosa Neck: Supple, non-tender Lungs: Clear to auscultation, non-labored respiration, no crackles, mild expiratory wheeze Heart: Normal rate, regular rhythm, no murmur, no edema Abdomen: Soft, suprapubic mildly TTP non-distended, normal bowel sounds Musculoskeletal: No obvious deformity, no tenderness Skin: warm, dry, no rashes or lesions Psychiatric: Cooperative, appropriate mood and affect Assessment/Plan #Obstructing left kidney stone IVF, analgesics, antiemetics as needed Consult urology, n.p.o. after midnight Tamsulosin #Ezl-qdzwatk-jnjpvsjwn diabetes Hold home medications Cover with SSI #Asthma/COPD, not in exacerbation DuoNebs as needed Singulair #Continued tobacco use Strongly encouraged cessation #Obesity Complicating all aspects of care Recommend weight loss #Anxiety/depression Duloxetine, Wellbutrin #Hypothyroidism Synthroid #Hypertension Losartan #Psoriasis Takes Enbrel twice a week Disposition: Admitting for further urological evaluation, pain control VTE Prophylaxis - Medical No VTE Prophylaxis Orders. Problem List/Past Medical History Ongoing anemia Arthritis [...] meniscus repair, shingles, tonsillectomy, total knee left. Home Medications (14) Active Advair 250 Albuterol (Eqv-ProAir HFA) , Inhalation, Q6H Claritin doxycycline hyclate 50 mg oral capsule , Oral, Daily DULoxetine 40 mg oral delayed release capsule 40 mg = 1 Cap, Oral, BID Enbrel Prefilled Syringe 50 mg/mL subcutaneous solution , SubCutaneous, TuSa Januvia Linzess 72 mcg oral capsule , Oral, Daily losartan 100 mg oral tablet 100 mg = 1 Tab, Oral, Daily Lyrica simvastatin 10 mg oral tablet 10 mg = 1 Tab, Oral, At Bedtime Singulair 10 mg oral tablet , Oral, Daily Synthroid Wellbutrin SR 150 mg/12 hours oral tablet, extended release 150 mg = 1 Tab, Oral, BID Allergies cefdinir (cefdinir, cefdinir) morphine Social History Alcohol Alcohol Use History Yes. Use in Last 12 Months: No. Alcohol Use Frequency Rarely. Date/Time of Last Drink: 4 months ago. Substance Abuse Drug Use Hx: No. Tobacco 10 or more cigarettes (1/2 pack or more)/day in last 30 days Smoking Status. Never Smokeless Tobacco Status. Years of Use: 35. Packs/Tins Daily: 1. Second Hand Smoke Exposure: No. Additional Documentation Code Status Start: 10/03/20 18:34:00 EDT, Full Code, Continuous Order Electronically signed by Alec Barahona Conversion [employer] Drilling Machine Operator Cerner at 08/23/2022 11:11 AM CDT documented in this encounter Plan of Treatment Not on file documented as of this encounter Visit Diagnoses Not on filedocumented in this encounter Care Teams Dental Hygienist Relationship Specialty Start Date End Date Salima Mi, [address] [facility] [address] [place] [address] PCP - General Family Medicine 02/09/23 documented as of this encounter
--- OUTSIDE RECORDS SUMMARY | 2024-04-06 21:57 | XMS_ITS | Encounter Summary ---
Author Organization Healthcare Address [address] [place] [address] Care Team Providers Care Roll Up Helper Name Role Phone Salima Gonzáles DO Primary Care Provider Encounter Details Date Type Department Care Team (Latest Contact Info) Description 02/27/2023 Travel Social History Tobacco Use Types Packs/Day [...] documented as of this encounter Care Teams Roll Up Helper Relationship Specialty Start Date End Date Salima Gonzáles DO [address] [place], [place] [address] [place] [address] PCP - General 09/17/20 documented as of this encounter
--- OUTSIDE RECORDS SUMMARY | 2024-04-06 21:57 | XMS_ITS | Encounter Summary ---
Author Organization Healthcare Address [address] [place] [address] Care Team Providers Care Skin Pass Operator Name Role Phone AnujSalima somers Primary Care Provider [phone] Encounter Details Date Type Department Care Team (Latest Contact Info) Description 06/07/2021 10:10 AM EST - 06/07/2021 11:59 PM EST Hospital Encounter Medical Office Building Radiology [address] [place] [address] Displaced intertrochanteric fracture of left femur, init ([facility]) Discharge Disposition: Home or Self Care Social [...] AM EST documented as of this encounter Medications at [...] Comments XR FEMUR LEFT 2+ VIEWS Routine 06/07/2021 10:33 AM EST Displaced intertrochanteric fracture of left femur, init ([facility]) documented in this encounter Results * XR [...] FEMUR LEFT 2+ VIEWS ordered by NEELA FLYNN [id number] CLINICAL INDICATION: Pain TECHNIQUE: XR FEMUR LEFT [...] FEMUR LEFT 2+ VIEWS ordered by NEELA FLYNN [id number] CLINICAL INDICATION: Pain TECHNIQUE: XR FEMUR LEFT [...] documented in this encounter Visit Diagnoses Diagnosis Displaced intertrochanteric fracture of left femur, init ([facility]) documented in this encounter Additional Health Concerns Assessment Noted Time A fall risk assessment has been complete d for the patient 06/07/2021 10:34 AM EST documented as of this encounter Care Teams Skin Pass Operator Relationship Specialty Start Date End Date Salima Gonzáles DO [address] [place] [address] PCP - General 09/17/20 documented as of this encounter
--- OUTSIDE RECORDS SUMMARY | 2024-04-06 21:57 | XMS_ITS | Encounter Summary ---
Author Organization [employer] Address [address] [place] [address] Care Team Providers Care Campaign Specialist Name Role Phone Unavailable Primary Care Provider Unavailabl e Encounter Details Date Type Department Care Team (Late st Contact Info) Description 10/03/2020 Historic Encounter [facility] [address] [place] [address] Provider, [facility] Historical Social History Tobacco Use Types Packs/Day [...] Priority Date/Time Associated Diagnosis Comments MAGNESIUM LEVEL ([facility] DATA CONV) Routine 10/03/2020 7:07 PM EDT documented in this encounter Results * MAGNESIUM LEVEL ([facility] BK DATA CONV) (10/03/2020 7:07 PM EDT) Magnesium Level 1.8 1.5 - 2.4 mg/dL 10/03/2020 11:32 PM EDT Blood 10/03/2020 7:07 PM EDT 10/03/2020 11:12 PM EDT [facility] Historical Provider LAB BLOOD ORDERABLES Fi nal Result [facility] [address] [place], [place] [address] [phone] documented in this encounter Visit Diagnoses Not on filedocumented in this encounter
--- OUTSIDE RECORDS SUMMARY | 2024-04-06 21:57 | XMS_ITS | Encounter Summary ---
Author Organization Healthcare Address [address] [place], [place] [id number] Care Team Providers Care Imager Name Role Phone Salima Gonzáles Primary Care Provider [phone] Reason for Visit * Reason Comments Post-op Encounter Details Date Type Department Care Team ([facility] st Contact Info) Description 05/17/2021 8:10 AM EST Office Visit Medical Office Building [facility] [address], [address] [place] [address] Bebeto Flynn MD [address] [place] [address] Closed fracture of distal end [...] have Coronavirus / COVID-19? No / Unsure 05/17/2021 7:59 AM EST documented as of this encounter Last Filed Vital Signs Vital Sign Reading Time Taken Comments Blood Pressure 122/78 05/17/2021 8:11 AM EST Pulse 84 05/17/2021 8:11 AM EST Temperature - - Respiratory Rate - - Oxygen Saturation - - Inhaled Oxygen Concentration - - Weight 120 kg (264 lb 1.8 oz) 05/17/2021 8:11 AM EST Height 154.9 cm (5' 1 ) 05/17/2021 8:11 AM EST Body Mass Index 49.9 05/17/2021 8:11 AM EST documented in this encounter Miscellaneous Notes * Progress Notes - Bebeto Flynn MD - 05/17/2021 8:10 AM EST S/p ORIF w/ Retrograde IMN of Left PeriProsthetic Distal Femur Fx (05/01/21). No issues during recovery and discharged home POD#5. No complaints since discharge. Pain controlled. Take lovenox and understands transition to ASA. Incisions w/out obvious issue. Healing a bit slowly c/w her hx of rheum issues as well as medical issues. Ambulating short distances and actively ranging knee w/out major issue. Coarsegold removed today and steri strips placed. F/u in 3wk w/ XRs (2 views of femur). Know to return sooner if any issues. documented in this encounter Plan of Treatment Not on file documented as of this encounter Visit Diagnoses Diagnosis Closed fracture of distal end of left femur with routine healing, unspecified fracture morphology, subsequent encounter- Primary documented in this encounter Additional Health Concerns Assessment Noted Time A fall risk assessment has been complete d for the patient 05/17/2021 8:11 AM EST documented as of this encounter Care Teams Imager Relationship Specialty Start Date End Date Salima Gonzáles DO [address] [place] [address] [place] [address] PCP - General 09/17/20 documented as of this encounter
--- OUTSIDE RECORDS SUMMARY | 2024-04-06 21:57 | XMS_ITS | Encounter Summary ---
Author Organization [employer] Address [address] [place] [address] Care Team Providers Care Crutch Maker Name Role Phone Anujlizbet Salima Tate SWANN Primary Care Provider Encounter Details Date Type Department Care Team (Late st Contact Info) Description 10/08/2019 Transcribed Document [facility] Family Medicine [address] [place] [address] ProviderQuincy MD [address] [place] [address] Social History Tobacco Use Types Packs/Day Years Used Date Smoking Tobacco: Never Assessed Comments Unknown Sex and Gender Information Value Date Recorded Sex Assigned at Not on file Legal Sex Female 2:54 PM CDT Gender Identity Not on file Sexual Orientation Not on file documented as of this encounter Miscellaneous Notes * Cerner Conversion Note - Quincy Kate MD - 10/08/2019 10:25 AM CDT Patient Education Materials Follows: High-Fiber Diet Fiber, also called dietary fiber, [...] ??? Talk with a diet and nutrition and dietetics instructor (dietitian) if you have questions about specific [...] Bulgur wheat. Millet. Quinoa. Bran muffins. Popcorn. [place] wafer crackers. Meats and other proteins Vernal, kidney, and cox beans. Soybeans. Split peas. [...] Cream cheese. Sour cream. Fats and oils [place]. Beverages Soft drinks. Other foods Cakes and [...] 04/23/2006 Document Revised: 02/25/2018 Document Reviewed: 02/25/2018 [employer] Interactive Patient Education ? 2019 [employer]. Gastritis, Adult Gastritis is swelling (inflammation) of [...] these instructions at home: Medicines ??? Take lemr-roy-ozqtthi and prescription medicines only as told by [...] alcohol: ? Limit your use to: ? 0?1 drink a day for women. ? 0?2 drinks a day for men. ? Be aware of how much alcohol is in your drink. In the [place] one drink equals one 12 oz bottle of beer (355 mL), one 5 oz glass of wine (148 mL), or one 1? oz glass of hard liquor (44 mL). [...] 10/09/2008 Document Revised: 09/10/2018 Document Reviewed: 09/10/2018 [employer] Interactive Patient Education ? 2019 [employer]. Colitis Colitis is inflammation of the colon. [...] you start to feel better. ??? Take ukpb-goi-pvjpksj and prescription medicines only as told by [...] 05/31/2005 Document Revised: 10/24/2018 Document Reviewed: 10/24/2018 [employer] Interactive Patient Education ? 2019 [employer]. Hemorrhoids Hemorrhoids are swollen veins that may [...] 20 minutes to ease pain. Do this 3?4 times a day. You may do this [...] Leave the ice on for 20 minutes, 2?3 times a day. General instructions ??? Take hqnf-vvt-ayfkdgr and prescription medicines only as told by [...] 20 minutes to ease pain. Do this 3?4 times a day. This information is not intended to replace advice given to you by your health care provider. Make sure you discuss any questions you have with your health care provider. Document Released: 01/30/2009 Document Revised: 09/12/2018 Document Reviewed: 09/12/2018 [employer] Interactive Patient Education ? 2019 [employer]. Colonoscopy, Adult, Care After This sheet gives [...] soft and easy to digest. ??? Take otky-cfk-fmadhdl or prescription medicines only as told by [...] source. ? Leave the heat on for 20?30 minutes. ? Remove the heat if your [...] You have blood in your poop (stool) 2?3 days after the procedure. Get help right [...] 05/26/2011 Document Revised: 02/21/2018 Document Reviewed: 01/15/2017 [employer] Interactive Patient Education ? 2019 [employer] Esophagogastroduodenoscopy, Care After Refer to this [...] 04/09/2013 Document Revised: 09/28/2016 Document Reviewed: 03/16/2016 [employer] Interactive Patient Education ? 2019 [employer]. Electronically signed by Nuzhat Barahona Conversion Trash Collector Truck Driver Cerner at 08/23/2022 10:52 AM CDT documented in this encounter Plan of Treatment Not on file documented as of this encounter Visit Diagnoses Not on filedocumented in this encounter Care Teams Crutch Maker Relationship Specialty Start Date End Date Salima Gonzáles, [facility] [address] [place] [address] PCP - General Family Medicine 02/09/23 documented as of this encounter
--- OUTSIDE RECORDS SUMMARY | 2024-04-06 21:57 | XMS_ITS | Encounter Summary ---
Author Organization [employer] Address [address] [place] [address] Care Team Providers Care Informatics Spec Name Role Phone Unavailable Primary Care Provider Unavailabl e Encounter Details Date Type Department Care Team (Late st Contact Info) Description 10/03/2020 Historic Encounter [address] [address] Provider [facility] Historical Social History Tobacco Use Types [...] Associated Diagnosis Comments CMP COMPREHENSIVE METABOLIC PANEL ([facility] DATA CONV) Routine 10/03/2020 7:07 PM EDT documented in this encounter Results * (ABNORMAL) CMP COMPREHENSIVE METABOLIC PANEL ([facility] BK DATA CONV) (10/03/2020 7:07 PM EDT) Sodium Level 140 136 - 146 mmol/L 10/03/2020 11:32 PM EDT Potassium Level 4.2 3.5 - 5.1 mmol/L 10/03/2020 11:32 PM EDT Chloride Level 106 102 - 112 mmol/L 10/03/2020 11:32 PM EDT Carbon Dioxide Level 30 21 - 32 mmol/L 10/03/2020 11:32 PM EDT Anion Gap 8(L) 9 - 20 10/03/2020 11:32 PM EDT Calcium Level 8.8 8.4 - 10.1 mg/dL 10/03/2020 11:32 PM EDT Glucose Level 79 74 - 106 mg/dL 10/03/2020 11:32 PM EDT Comment: [facility] has become aware of sulfasalazine and sulfapyridine [...] administration of the drug. Blood Urea Nitrogen 20 7 - 22 mg/dL 10/03/2020 11:32 PM EDT Creatinine Level 0.80 0.55 - 1.02 mg/dL 10/03/2020 11:32 PM EDT Bun/Creatinine 25.0(H) 8.0 - 20.0 10/03/2020 11:32 PM EDT Albumin Level 3.3(L) 3.4 - 5.0 Gram/dL 10/03/2020 11:32 PM EDT Protein, Total 6.9 6.4 - 8.2 Gram/dL 10/03/2020 11:32 PM EDT A/G Ratio 0.9(L) 1.1 - 2.5 10/03/2020 11:32 PM EDT Alk Phos 104 27 - 136 Units/Lit er 10/03/2020 11:32 PM EDT ALT 96(H) 13 - 56 Units/Lit er 10/03/2020 11:32 PM EDT Comment: [facility] has become aware of sulfasalazine and sulfapyridine [...] prior to administration of the drug. AST 159(H) 5 - 37 Units/Lit er 10/03/2020 11:32 PM EDT Comment: [facility] has become aware of sulfasalazine and sulfapyridine [...] Bilirubin, Total 0.7 0.2 - 1.2 mg/dL 10/03/2020 11:32 PM EDT Comment: Total bilirubin results may be falsely elevated in patients undergoing treatment with eltrombopag (Promacta). Results should be correlated to clinical symptomology and additional laboratory testing including other markers for liver function, e.g., alanine aminotransferase, aspartate aminotransferase, alkaline phosphatase, and/or lactate dehydrogenase. Globulin 3.6 1.5 - 4.5 Gram/dL 10/03/2020 11:32 PM EDT eGFR >60 >=60 mL/min/1. 73m2 10/03/2020 11:35 PM EDT Comment: GFR <60 suggests chronic kidney disease, if found over 3 month period. GFR <15 indicates renal failure. eGFR NonAfrican >60 >=60 mL/min/1. 73m2 10/03/2020 11:35 PM EDT Comment: GFR <60 suggests chronic kidney disease, if found over 3 month period. GFR <15 indicates renal failure. Blood 10/03/2020 7:07 PM EDT 10/03/2020 11:12 PM EDT Result [facility] Historical Provider LAB BLOOD ORDERABLES Fi nal Result [facility] [address] [phone] documented in this encounter Visit Diagnoses Not on filedocumented in this encounter
--- OUTSIDE RECORDS SUMMARY | 2024-04-06 21:57 | XMS_ITS | Encounter Summary ---
Author Organization [employer] Address [address] [place] [address] Care Team Providers Care Border Measurer Name Role Phone Unavailable Primary Care Provider Unavailabl e Encounter Details Date Type Department Care Team (Late st Contact Info) Description 10/03/2020 Historic Encounter [address] [address] Provider, [facility] Historical Social History Tobacco Use Types [...] Priority Date/Time Associated Diagnosis Comments GLUCOSE-POC Routine 10/03/2020 10:41 PM EDT documented in this encounter Results * Glucose, Point of Care (10/03/2020 10:41 PM EDT) Glucose POC2 99 70 - 110 mg/dL 10/04/2020 2:41 AM EDT [facility] Solution Engineer [id number] 10/04/2020 2:41 AM EDT [facility] Device SN [id number] 10/04/2020 2:41 AM EDT [facility] Blood 10/03/2020 10:4 1 PM EDT 10/04/2020 3:02 AM EDT [facility] Historical Provider POINT OF CARE TEST ORDE RABLES Final Result [facility] [address] [phone] documented in this encounter Visit Diagnoses Not on filedocumented in this encounter
--- OUTSIDE RECORDS SUMMARY | 2024-04-06 21:57 | XMS_ITS | Encounter Summary ---
Author Organization Healthcare Address [address] [place] [address] Care Team Providers Care Spacer Type Bar And Segment Name Role Phone Salima Gonzáles DO Primary Care Provider [phone] Encounter Details Date Type Department Care Team (Latest Contact Info) Description 05/17/2021 Travel Social History Tobacco Use Types Packs/Day [...] documented as of this encounter Care Teams Spacer Type Bar And Segment Relationship Specialty Start Date End Date Salima Gonzáles DO [address] [place] [address] PCP - General 09/17/20 documented as of this encounter
--- OUTSIDE RECORDS SUMMARY | 2024-04-06 21:57 | XMS_ITS | Encounter Summary ---
Author Organization Healthcare Address [address] [place] [address] Care Team Providers Care Revenue Analyst Name Role Phone Salima Gonzáles DO Primary Care Provider [phone] Encounter Details Date Type Department Care Team (Late st Contact Info) Description 03/20/2023 Telephone [facility] [address] [place] [address] Sophie Prince RN [facility] Social History Tobacco Use Types Packs/Day Years [...] documented as of this encounter Care Teams Revenue Analyst Relationship Specialty Start Date End Date Salima Gonzáles DO [address] [place] [address] PCP - General 09/17/20 documented as of this encounter
--- OUTSIDE RECORDS SUMMARY | 2024-04-06 21:57 | XMS_ITS | Encounter Summary ---
Author Organization [facility] Address [address] [place] [address] Care Team Providers Care Loom Setter Name Role Phone Unavailable Primary Care Provider Unavailabl e Encounter Details Date Type Department Care Team (Late st Contact Info) Description 10/06/2019 Historic Encounter [facility] [address] [place] [address] Provider, [facility] Historical Social History Tobacco Use Types Packs/Day [...] Procedure Name Priority Date/Time Associated Diagnosis Comments CORONAVIRUS 2019 NOVEL ([facility] BK DATA CONV) Routine 10/06/2019 12:15 PM EDT documented in this encounter Results * CORONAVIRUS 2019 NOVEL ([facility] DATA CONV) (10/06/2019 12:15 PM EDT) SARS-CoV-2 ([id number]) Negative Negative 10/08/2019 8:16 AM EDT [facility] Comment:Missing Attachment R eference Lab Report Can be viewed in source system 10/06/2019 12:1 5 PM EDT 10/06/2019 5:09 PM EDT [facility] Historical Provider BODY FLUIDS AND STOOLS ORDERABLES Final Result [facility] [address] [phone] documented in this encounter Visit Diagnoses Not on filedocumented in this encounter
--- OUTSIDE RECORDS SUMMARY | 2024-04-06 21:57 | XMS_ITS | Encounter Summary ---
Author Organization Healthcare Address [address] [place] [address] Care Team Providers Care Embroidery Patternmaker Name Role Phone Salima Gonzáles DO Primary Care Provider [phone] Encounter Details Date Type Department Care Team (Late st Contact Info) Description 02/27/2023 Telephone [facility] [address] [place] [address] Sophie Prince RN [facility] Social History [...] documented as of this encounter Care Teams Embroidery Patternmaker Relationship Specialty Start Date End Date Salima Gonzáles DO [address] [place] [address] PCP - General 09/17/20 documented as of this encounter
--- OUTSIDE RECORDS SUMMARY | 2024-04-06 21:57 | XMS_ITS | Encounter Summary ---
Author Organization Healthcare Address [address] [place] [address] Care Team Providers Care Digital Imager Name Role Phone Salima Gonzáles DO Primary Care Provider [phone] Encounter Details Date Type Department Care Team (Latest Contact Info) Description 06/07/2021 Travel Social History Tobacco Use Types Packs/Day [...] documented as of this encounter Care Teams Digital Imager Relationship Specialty Start Date End Date Salima Gonzáles DO [address] [place] [address] PCP - General 09/17/20 documented as of this encounter
--- OUTSIDE RECORDS SUMMARY | 2024-04-06 21:57 | XMS_ITS | Encounter Summary ---
Author Organization [employer] Address [address] [place] [address] Care Team Providers Care Sales Enablement Analyst Name Role Phone Salima Gonzáles Primary Care Provider [phone] Encounter Details Date Type Department Care Team (Late st Contact Info) Description 10/08/2019 Transcribed Document [facility] [place] [address] [place] [address] ProviderQuincy MD [address] [place] [address] Social History Tobacco Use Types Packs/Day Years Used Date Smoking Tobacco: Never Assessed Comments Unknown Sex and Gender Information Value Date Recorded Sex Assigned at Not on file Legal Sex Female 2:54 PM CDT Gender Identity Not on file Sexual Orientation Not on file documented as of this encounter Miscellaneous Notes * Cerner Conversion Note - Quincy Kate MD - 10/08/2019 9:18 AM CDT Pre Procedure Adult Entered On: 10/08/2019 9:26 EDT Performed On: 10/08/2019 9:18 EDT by Whitney Huynh Rn Height and Weight, Clinical Dosing Height Source : Stated Height Entry Format : [place] Height, Feet : 5 ft(Converted to: 152 cm, 60 Inch) Height, Inches : 1 Inch(Converted to: 0 ft 1 Inch, 2.54 cm) Clinical Height : 154.94 cm Weight Source : Standing scale Weight Entry Format : [place] Clinical Dosing Weight : 118.55 kg Weight, Pounds : 260.8 lb Body Surface Area (BSA) : 2.12 m2 Body Mass Index : 49.4 kg/m2 (>HHI) [place] Body Weight : 47 kg Whitney Huynh Rn - 10/08/2019 9:18 EDT Health Histories Smoking Status : 10 or more cigarettes (1/2 pack or more)/day in last 30 days Smokeless Tobacco Status : Never Desires Tobacco Cessation Medication : No Reason for No Tobacco Cessation Medication : ED/procedural patient only Whitney Huynh Rn - 10/08/2019 9:18 EDT Social History (As Of: 10/08/2019 09:26:45 EDT) Tobacco: Years of Use: 35. Packs/Tins [...] EDT by Whitney Huynh Rn) Substance Abuse: Comments: 08/25/2014 15:16 - KENY DIAZ RN: none (Last Updated: 08/25/2014 15:16:13 EDT by KENY DIAZ RN) Drug Use Hx: No. (Last Updated: 10/08/2019 09:19:55 EDT by Whitney Huynh Rn) Infectious Disease History Has the patient ever been tested for COVID-19? : Yes, Patient stated results Negative COVID19 Screening : No Experiencing Infectious Disease Symptoms : No symptoms Physical contact outside [place] in the last 30 days : No Infectious Disease Symptoms Score : 0 Infectious Disease History : Chicken pox/Shingles Tuberculosis Symptoms : None Whitney Huynh Rn - 10/08/2019 9:18 EDT COVID19 PreProcedure Screening Is this an Emergent or Add on Procedure? : No Has patient been isolated since the test : Yes Exposed to COVID19 symptoms since test? : No Whitney Huynh Rn - 10/08/2019 9:18 EDT Anesthesia/Transfusion History Family History of Anesthesia Reaction : No prior transfusion(s) Transfusion History : Prior anesthesia reaction Type of Anesthesia Reaction : Other: exaserbates asthma Family History of Anesthesia Reaction : None Whitney Huynh Rn - 10/08/2019 9:18 EDT Functional Assessment Living Situation : Home Current Home Treatments : Blood glucose monitoring, Nebulizer treatments Whitney Huynh Rn - 10/08/2019 9:18 EDT [place] Suicide Severity Rating Scale (C-SSRS) CSSRS Past Month Wish to be : No CSSRS Past Month Suicidal Thoughts : No CSSRS Lifetime Suicide Behavior : Yes YES, was this within the past 3 months? : No Suicide Severity Rating Score : 3 Suicide Severity Rating : Moderate Whitney Huynh Rn - 10/08/2019 9:18 EDT Psychosocial History Currently in Unsafe Situation : No Whitney Huynh Rn - 10/08/2019 9:18 EDT Advance Directive Patient has Advance Directive *Q : No, patient refuses Advance Directive information Whitney Huynh Rn - 10/08/2019 9:18 EDT General Info Want Family/Rep/Phys Notified of Admit : Yes Name/Contact Info Fam/Rep Notified Adm : na Name/Contact Info Physician Notified Adm : Salima Gonzáles Emergency Contact #1 : Sandra De Anda Emergency Contact #1 Emergency Contact #1 Relationship : daughter Emergency Contact #2 : na Emergency Contact #2 Phone Number : na Emergency Contact #2 Relationship : na Primary Language : Martiniquais Communication Barrier : None Whitney Huynh Rn - 10/08/2019 9:18 EDT Sleep Apnea Risk Assmt BiPAP/CPAP Ordered for Home Use : Yes Hx of Obstructive Sleep Apnea Diagnosis : Yes BiPAP/CPAP Used at Home : No Reason BiPAP/CPAP Not Used at Home : insurance would not pay for machine Age over 50 Years Old : Yes Gender Male : No Whitney Huynh Rn - 10/08/2019 9:18 EDT Ranulfo Scale Ranulfo Sensory Perception : No impairment Ranulfo Moisture : Rarely moist Ranulfo Activity : Walks frequently Ranulfo Mobility : No limitation Ranulfo Nutrition : Adequate Ranulfo Friction and Shear : No apparent problem Ranulfo Score : 22 Whitney Huynh Rn - 10/08/2019 9:18 EDT Fall Risk Scales ABCs Fall Injury Risk Identification : None SCHMITT Hx Falls Immediate/Within 3 Months : No Schmitt Secondary Diagnosis : No SCHMITT Use of Ambulatory Aid : None SCHMITT IV Therapy or IV Access : Yes Schmitt Gait/Transferring : Normal, bedrest, immobile Schmitt Mental Status : Oriented to own ability Schmitt Fall Risk Score : 20 SCHMITT Fall Scale Risk Level : 0-24 Low Risk [place] Fall Interventions : Adequate lighting, Call device within reach, Non-slip footwear, Upper side-rails up, Wheels locked Whitney Huynh Rn - 10/08/2019 9:18 EDT Valuables and Belongings Valuables and Belongings : Clothing Clothing : Common streetwear Clothing Disposition : Bedside Whitney Huynh Rn - 10/08/2019 9:18 EDT documented in this encounter Plan of Treatment Not on file documented as of this encounter Visit Diagnoses Not on filedocumented in this encounter Care Teams Sales Enablement Analyst Relationship Specialty Start Date End Date Salima Gonzáles, [address] [facility] [address] [place] [address] PCP - General Family Medicine 02/09/23 documented as of this encounter
--- OUTSIDE RECORDS SUMMARY | 2024-04-06 21:57 | XMS_ITS | Encounter Summary ---
Author Organization [employer] Address [address] [place] [address] Care Team Providers Care Tutorial Laboratory Supervisor Name Role Phone Salima Gonzáles Primary Care Provider [phone] Encounter Details Date Type Department Care Team (Late st Contact Info) Description 10/08/2019 Transcribed Document [facility] [place] [facility] [place] [address] ProviderQuincy MD [address] [place] [id number] Social History Tobacco Use Types Packs/Day Years Used Date Smoking Tobacco: Never Assessed Comments Unknown Sex and Gender Information Value Date Recorded Sex Assigned at Not on file Legal Sex Female 2:54 PM CDT Gender Identity Not on file Sexual Orientation Not on file documented as of this encounter Miscellaneous Notes * Cerner Conversion Note - Quincy Kate MD - 10/08/2019 10:10 AM CDT Patient: AMBIKA PIERRE Age: 53 Years Sex: Female : 1965 *Operation Esophagogastroduodenoscopy, Colonoscopy, Gastric Biopsy, Colon Biopsy, Indication for Surgery Dyspepsia Change in bowel history of gastric bypass Last one 20 years ago. *Preoperative Diagnosis dyspepsia, change in bowel habits *Postoperative Diagnosis Chronic gastritis, history gastric bypass Acute mild colitis. Hemorrhoids. *Surgeon(s) Primary Surgeon WARREN MANRIQUE MD (Surgeon/Proceduralist, First) *Estimated Blood Loss Minimal. The colon prep was good. *Findings Normal esophagus. Moderate chronic gastritis, fundic biopsies taken. Previous gastric bypass surgeries with normal anastomosis and small bowel. Normal cecum and terminal ileum. Acute mild inflammation and erosion at the hepatic and sigmoid colon, biopsies taken. Medium hemorrhoids. *Specimen(s) Fundus Random colon biopsies. Complications None Flagyl 500mg TID fo 10 days. Liness 145mcg daily PPI BID. Follow up in office in 1 month. Follow up colonoscopy in 10 years. Date of Service Date/Time of Service SN - Proc - Start Time: 10/08/19 09:53:00 (10/08/19 10:02:18) SN - Proc - Start Time: 10/08/19 09:53:00 (10/08/19 10:02:18) Electronically signed by [facility] Conversion Silver Steward Cerner at 08/23/2022 11:05 AM CDT documented in this encounter Plan of Treatment Not on file documented as of this encounter Visit Diagnoses Not on filedocumented in this encounter Care Teams Tutorial Laboratory Supervisor Relationship Specialty Start Date End Date Salima Gonzáles, [address] [address] PCP - General Family Medicine 02/09/23 documented as of this encounter
--- OUTSIDE RECORDS SUMMARY | 2024-04-06 21:57 | XMS_ITS | Clinical Summary ---
Author Organization [facility] Address [address] [place] [address] Care Team Providers Care Scale Balancer Name Role Phone Eliecer Salimajovanni Ybarra DO Primary Care Provider [phone] Allergies Active Allergy Reactions Criticality Noted Date Comments Cefdinir Unknown - Patient st ates they do not know rxn details Low 04/30/2021 Morphine Hallucinations Medium 05/01/2021 Morphine And Codeine Hallucinations Medium 02/21/2017 Medications albuterol 108 (90 Base) MCG/ACT inhaler Inhale 2 puffs every 6 (six) hours if needed for wheezing. Active diclofenac (Voltaren) 1 % topical gel Place 4 g on the skin 4 (four) times a day. To ankle and foot Active FLUoxetine (PROzac) 40 MG capsule Take 40 mg by mouth 2 (two) times a day. Active levothyroxine (Synthroid, Levoxyl) 125 MCG tablet Take 125 mcg by mouth 1 (one) time each day. Active loratadine (Claritin) 10 MG tablet Take 10 mg by mouth 1 (one) time each day. Active losartan (Cozaar) 100 MG tablet Take 100 mg by mouth 1 (one) time each day. Active montelukast (Singulair) 10 MG tablet Take 10 mg by mouth every night. Active pantoprazole (Protonix) 40 MG EC tablet Take 40 mg by mouth 2 (two) times a day. Do not crush, chew, or split. Active pregabalin (Lyrica) 150 MG capsule Take 150 mg by mouth 2 (two) times a day. Active SITagliptin (Januvia) 100 MG tablet Take 100 mg by mouth 1 (one) time each day. Active simvastatin (Zocor) 5 MG tablet Take 5 mg by mouth every night. Active buPROPion SR (Wellbutrin SR) 150 MG 12 hr tablet Take 150 mg by mouth 2 (two) times a day. Do not crush, chew, or split. Active cyanocobalamin (Vitamin B-12) 1000 MCG tablet Take 1,000 mcg by mouth 1 (one) time each day. Active Ascorbic Acid (vitamin C) 250 MG tablet Take 250 mg by mouth 1 (one) time each day. Active ferrous sulfate 325 (65 Fe) MG tablet Take 325 mg by mouth 1 (one) time each day. Active Multiple Vitamins-Minera ls (multivitamin with minerals) tablet Take 1 tablet by mouth 1 (one) time each day. Active Probiotic Product (acidophilus probiotic blend) capsule Take 1 capsule by mouth 1 (one) time each day. Active hydrOXYzine pamoate (Vistaril) 25 MG capsule Take 25 mg by mouth 3 (three) times a day if needed for anxiety. Active ketoconazole (NIZOral) 2 % cream Apply 1 application topically 1 (one) time each day if needed for itching. Active hydrocortisone 2.5 % cream Apply 1 application topically 2 (two) times a day if needed. Active gabapentin (Neurontin) 300 MG capsule Take 1 capsule (300 mg total) by mouth every 8 (eight) hours for 10 days. 30 capsule 1 Active methocarbamol (Robaxin) 500 MG tablet Take 1 tablet (500 mg total) by mouth every 8 (eight) hours for 10 days. 30 tablet 1 Active Active Problems Problem Noted Date Diagnosed Date UTI (urinary tract infection) 05/05/2021 Overview (05/05/2021): Levaquin x 3 days HTN (hypertension) 05/01/2021 Overview (05/01/2021): Restart home meds as appropriate Obesity 05/01/2021 Overview (05/01/2021): Could complicate care Fibromyalgia 05/01/2021 Overview (05/01/2021): could complicate care Closed fracture of lower end of left femur with routine healing 04/30/2021 Overview (05/02/2021): Ortho following ORIF of left femur fracture on 05/01 WBAT LLE Follow up with Dr. Flynn 05/17/21 Fall 04/30/2021 Overview (05/02/2021): Admit to trauma floor Multimodal pain control Diabetes 04/30/2021 Overview (05/02/2021): Sliding-scale insulin CC2 diet Monitor FS Elevated LFTs 04/30/2021 Overview (05/04/2021): Stable abdominal exam Labs down trending Resolved Problems Problem Noted Date Diagnosed Date Resolved Date Lactic acidosis 04/30/2021 05/01/2021 Overview (04/30/2021): IVF Recheck Social History Tobacco Use Types Packs/Day Years [...] Pulse 62 03/27/2023 1:45 PM EST Temperature 37.2 ??C (99 ??F) 11/02/2021 10:26 AM EDT Respiratory Rate 20 03/27/2023 1:45 PM EST Oxygen Saturation 97% 03/27/2023 1:45 PM EST Inhaled Oxygen Concentration - - Weight 118 kg (260 lb) 03/27/2023 11:47 AM EST Height 154.9 cm (5' 1 ) 03/27/2023 11:47 AM EST Body Mass Index 49.13 03/27/2023 11:47 AM EST Plan of Treatment Health Maintenance Due Date Last Done Comments [facility]-Depression Screening 1965 [facility]-HIV Screening 1965 [facility]-Hepatitis C Screening 1965 [facility]-Medicare Annual Wellness (AWV) 1965 [facility]-Infant/Child/Adol SDOH Screenings 1965 [facility]-Obesity Intervention 1970 [facility]-Pneumococcal Vaccine: Pediatrics (0 to 5 Years) and At-Risk Patients (6 to 64 Years) (1 of 2 - PCV) 1970 Diabetes: Dental Exam 1974 [facility]- SDOH Screenings 1982 [facility]-Adult SDOH Screenings 1982 [facility]-Hepatitis B Vaccines (1 of 3 - 19+ 3-dose series) 12/21/1983 [facility]-Zoster Vaccines (1 of 2) 12/21/1983 [facility]-Pap Smear 1985 [facility]-Cervical Cancer Screening 1994 [facility]-HPV/Cotest 1994 CT Colonography 2009 Colonoscopy 2009 FIT-DNA 2009 FIT 2009 FOBT 2009 Sigmoidoscopy 2009 [facility]-Colorectal Cancer Screening 2009 [facility]-Breast Cancer Screening 2014 [facility]-Diabetes: Hemoglobin A1C 10/29/2021 05/01/2021 [id number] Vaccine (2023- season) 2024 02/23/2022, 01/26/2021, 06/09/2020, Additional history exists [facility]-Influenza Vaccine (#1) 01/06/202402/22, 01/27/2022, 01/28/2021, Additional history exists [facility]-DTaP,Tdap,and Td Vaccines (2 - Td or Tdap) 01/25/2028 01/24/2018 [facility]-RSV Vaccine: 60+ Years or (1 - 1-dose 75+ series) 12/21/2039 [facility]-Hepatitis A Vaccines Aged Out 05/11/2018, 08/06 No longer eligible based on patient's age to complete this topic [facility]-HIB Vaccines Aged Out No longer e ligible based on patient's age to complete this topic [facility]-HPV Vaccines Aged Out No longer e ligible based on patient's age to complete this topic [facility]-IPV Vaccines Aged Out No longer e ligible based on patient's age to complete this topic [facility]-Rotavirus Vaccines Aged Out No lo nger eligible based on patient's age to complete this topic Medical Devices Implanted Type Area Water Engineer Device Identifier Shelf Expiration Date Model / Serial / Lot Nail Femoral Retro T2 Alpha 11mm X 340mm - [id number] Implanted:Qty: 1 on 05/01/2021 by Crow Lockwood MD at [facility] Nail Left: Femur [employer] [facility][id number] 10/04/2030 [id number] / / [id number] Screw Locking T2 D5xl80 - [id number] Implanted:Qty: 1 on 05/01/2021 by Bebeto Flynn MD at [facility] Screw Left: Femur [employer] [facility][id number] 09/03/2030 [id number] / / [id number] Screw Locking T2 D5xl60 - [id number] Implanted:Qty: 1 on 05/01/2021 by Bebeto Flynn MD at [facility] Screw Left: Femur [employer] ([facility])-[id number] 02/03/2031 [id number] / / [id number] Screw Locking T2 D5xl50 - [id number] Implanted:Qty: 1 on 05/01/2021 by Bebeto Flynn MD at [facility] Screw Left: Fem[employer] ([facility])-[id number] 02/03/2031 [id number] / / [id number] Screw Locking T2 D5xl75 - [id number] Implanted:Qty: 1 on 05/01/2021 by Bebeto Flynn MD at [facility] Screw Left: Femur [employer] ([facility])-[id number] 01/04/2031 [id number] / / [id number] Screw Locking T2 D5xl55 - [id number] Implanted:Qty: 1 on 05/01/2021 by Bebeto Flynn MD at [facility] Screw Left: Femur [employer] ([facility])-[id number] 12/04/2030 2360-5055S / / [id number] Screw Locking T2 D5x32.5 - [id number] Implanted:Qty: 1 on 05/01/2021 by Bebeto Flynn MD at [facility] Screw Left: Femur [employer] ([facility])-[id number] 01/04/2031 [id number] / / [id number] Screw Locking T2 D5x37.5 - [id number] Implanted:Qty: 1 on 05/01/2021 by Bebeto Flynn MD at [facility] Screw Left: Femur [employer] ([facility])-[id number] 01/04/2031 [id number] / / [id number] Procedures Procedure Name Priority Date/Time Associated Diagnosis Comments HEMOGLOBIN A1C STAT Add-on 05/01/2021 2:21 AM EST from Last 3 Months or Most Recently Relevant to Health Maintenance Results * Hemoglobin A1c (05/01/2021 2:21 AM EST) Hemoglobin A1c 5.5 <5.7 % 05/01/2021 12:36 PM EST [facility] Blood Venous blood specimen / Unknown Venipuncture / Unknown 05/01/2021 2:21 AM EST 05/01/2021 2:26 AM EST Narrative [facility] - 05/01/2021 12:36 PM EST HA1C Interpretive Data: Diagnosis of Diabetes: Diabetic > or = 6.5% Pre-diabetic 5.7 to 6.4% Non-diabetic < or = 5.6% Glycemic Targets for Type I and Type II Diabetics: Non- Adults <7.0% Adults <6.0% Children and Adolescents <7.5% Source: ??[place] [employer]. Standards of medical care in diabetes,2017. Diabetes Care.2017:40 (suppl 1):S1-S135. HbA1c assay performed by an ion-exchange chromatography method that is certified traceable to the DCCT. us Drew Matos MD LAB BLOOD ORDERABLES Final Re sult [facility] [address] [place] [id number] from Last 3 Months or Most Recently Relevant to Health Maintenance Insurance [employer] MEDICARE Advance Directives * Full Code (Latest Code Status on File) Date Activated Date Inactivated Comments 04/30/2021 4:10 PM 05/07/2021 11:19 AM Question Answer Comments Patient has decision-making capacity? Yes Care Teams Scale Balancer Relationship Specialty Start Date End Date Salima Gonzáles DO [address] [place] [address] PCP - General 09/17/20
--- OUTSIDE RECORDS SUMMARY | 2024-04-06 21:58 | XMS_ITS | Encounter Summary ---
Author Organization Healthcare Address [address] [place], [place] [id number] Care Team Providers Care Banking Attorney Name Role Phone Eliecer Salima Tate SWANN Primary Care Provider [phone] Reason for Visit * Auth/Cert Specialty Diagnoses / Procedures Referred By Contac t Referred To Contact Diagnoses Closed fracture of distal end of left femur, unspecified fracture morphology, initial encounter ([facility]) Fall, femur fx Drew Matos MD [address] [address] Phone: tel: fax: [facility] [address] [place] [address] Phone: tel: Referral ID Status Reason Start Date Expiration Date Visits Re quested Visits Authorized [id number] 1 1 Encounter Details Date Type Department Care Team (Late st Contact Info) Description 05/01/2021 1:00 PM EST Anesthesia Event [facility] [address] [place] [address] Patricio Figueroa MD [address] [place] [address] Brenda Graves MD Anesthesia Record Procedure Summary Procedure Name Responsible Anesthesiologist Anesthesia Start Time Anesthesia Stop Time INSERTION, INTRAMEDULLARY SCOTT, FEMUR Newton Periprosthetic Retrograde Femur Nail (Left: Leg Upper) Patricio Fgiueroa MD 05/01/21 1300 05/01/21 1606 Events Date Time Event Comment 05/01/2021 0839 1300 An Start 1300 In Room 1300 An Start Data 1306 An Induction The patient was reevaluated immediately before moderate or deep sedation use and before anesthesia induction. 2 puffs albuterol prior to preoxygenation 1309 An Intubation 1313 Anesthesia Ready 1345 Proc Start 1541 An Extubation 1545 an stop data 1546 Proc Fin 1547 Out of Room 1600 Handoff to Receiving I compl eted my handoff to the receiving clinician during which we: 1. Identified the patient 2. Identified the responsible provider 3. Reviewed the pertinent medical history 4. Discussed the surgical course 5. Reviewed intra-op anesthesia management and issues during anesthesia 6. Set expectations for post-procedure period 7. Allowed opportunity for questions and acknowledgement of understanding. 1606 An Stop Meds Name Total fentaNYL (Sublimaze) injection 50 mcg/mL 150 mcg propofol (Diprivan) injection 10 mg/mL 1 40 mg rocuronium (ZeMuron) injection 10 mg/mL 70 mg dexamethasone (Decadron) injection 4 mg/ mL 4 mg ondansetron (Zofran) injection 2 mg/mL 4 mg Lidocaine HCl 100 MG/5ML 100 mg glycopyrrolate 0.2 MG/ML 0.2 mg ketamine 10 MG/ML 30 mg clindamycin 900 MG/50ML 900 mg vancomycin IVPB 2000 mg in 250 mL NS IVP B 2,000 mg HYDROmorphone 2 MG/ML 1.5 mg lactated Ringer's infusion 1,250 mL * Agents Name O2 N2O Air Sevoflurane Isoflurane Desflurane Inspired Desflurane Inspired Isoflurane Inspired Sevoflurane N2O Inspired N2O * Blood No blood administrations on file. Lines, Drains, and Airways Type Details Placement Removal Wound 04/30/21; 1999; Othe r; Abdomen; Lower; Umbilicus, groin and under belly has moisture dermatitis 04/30/211999 by Cassie Ford RN ETT Placement Date: 04/07 10/25; Placement Time: 1309 (created via procedure documentation); Mask Ventilation: 1; Technique: Direct laryngoscopy; Type: ETT - single; Single Lumen Tube Size: 7.5 mm; Cuffed: Yes; Laryngoscope: Zheng; Blade Size: 3; Location: Oral; Grade View: Grade I; Insertion Attempts: 1; Placement Verification: Auscultation, Capnometry; Placed by: Resident ; Removal Date: 05/01/21; Removal Time: 1541 05/01/21 1309 by Matt Sampson MD 05/01/21 1541 by Matt Sampson MD Peripheral IV Placement Date: 04/07 10/25; Placement Time: 1414 (created via procedure documentation); Catheter Size: 18 G; Orientation: Left; Location: Hand; Local Anesth: None; Technique: Ultrasound guidance; Inserted by: Patricio Figueroa MD; Insertion Attempts: 1; Removal Date: 05/03/21; Removal Time: 2029; Removal Reason: Other (Comment) (leaking) 05/01/21 141 by Matt Sampson MD 05/03/212029 by Shaquille Mak RN Peripheral IV Placement Date: 04/07 10/25; Placement Time: 1414 (created via procedure documentation); Catheter Size: 18 G; Orientation: Right; Location: Hand; Local Anesth: None; Technique: Anatomical landmarks; Inserted by: Matt Sampson MD; Insertion Attempts: 1; Removal Date: 05/04/21; Removal Time: 399; Removal Reason: (leaking) 05/01/21 141 by Matt Sampson MD 05/04/21399 by Shaquille Mak RN documented in this encounter Social History Tobacco Use Types Packs/Day Years Used Date Smoking Tobacco: Never Smokeless Tobacco: Never Alcohol Use Standard Drinks/Week [...] have Coronavirus / COVID-19? No / Unsure 04/30/2021 12:43 PM EST documented as of this encounter Miscellaneous Notes * Anesthesia Postprocedure Evaluation - Matt Sampson MD - 05/01/2021 4:06 PM EST Patient: Neetu Pratt Anesthesia Type: general Vitals Value Taken Time BP 146/86 05/01/21 1558 Temp 36.8 ??C (98.2 ??F) 05/01/21 1550 Pulse 102 05/01/21 1605 Resp 20 05/01/21 1605 SpO2 93 % 05/01/21 1605 Vitals shown include unvalidated device data. Anesthesia Post Evaluation Patient location during evaluation: PACU Patient participation: complete - patient participated Level of consciousness: responsive to physical stimuli Pain management: adequate (pain score 0-3) Airway patency: natural airway Cardiovascular status: acceptable and blood pressure returned to baseline Respiratory status: acceptable and face mask Hydration status: acceptable Comments: Ms. Fadi Pratt did very well intraoperatively. Of note, she seems to have a small cut/jose cruz on the underside of her tongue near the phrenulum that bled slightly. She had a soft cloth bite block placed between her molars prior to extubation as well as suctioning of her oropharynx. The area was rinsed with a few mL of normal saline, dabbed with Q-tips and noted to be no longer bleeding. It is unknown what cause the cut; she reports no pain in the area as of the moment and is able to speak normally. No complications documented. Cosigned by Patricio Figueroa MD at 05/01/2021 4:13 PM EST * Anesthesia Procedure Notes - Matt Sampson MD - 05/01/2021 2:15 PM EST Associated Order(s): Peripheral IV Peripheral IV Inserted by: Matt Sampson MD Placement Needle size: 18 G Location: hand Local anesthetic: none Site prep: alcohol Technique: anatomical landmarks Attempts: 1 * Anesthesia Procedure Notes - Matt Sampson MD - 05/01/2021 2:14 PM EST Associated Order(s): Peripheral IV Peripheral IV Inserted by: Patricio Figueroa MD Placement Needle size: 18 G Location: hand Local anesthetic: none Site prep: alcohol Technique: ultrasound guided Attempts: 1 * Anesthesia Procedure Notes - Matt Sampson MD - 05/01/2021 2:14 PM EST Associated Order(s): Airway Airway Date/Time: 05/01/2021 1:09 PM Urgency: elective Airway not difficult General Information and Staff Patient location during procedure: OR Anesthesiologist: Patricio Figueroa MD Resident: Matt Sampson MD Performed: Resident Indications and Patient Condition Indications for airway management: anesthesia Spontaneous Ventilation: absent Preoxygenated: yes Patient position: sniffing Mask difficulty assessment: 1 - vent by mask Final Airway Details Final airway type: endotracheal airway Successful airway: ETT Cuffed: yes Successful intubation technique: direct laryngoscopy Facilitating devices/methods: cricoid pressure and intubating stylet Endotracheal tube insertion site: oral Blade: Zheng Blade size: #3 ETT size (mm): 7.5 Cormack-Lehane Classification: grade I - full view of glottis Placement verified by: chest auscultation and capnometry Measured from: lips ETT to lips (cm): 23 Number of attempts at approach: 1 Cosigned by Patricio Figueroa MD at 05/01/2021 2:23 PM EST * Anesthesia Preprocedure Evaluation - Brenda Graves MD - 05/01/2021 7:34 AM EST Patient: Neetu Pratt Procedure Information Date/Time: 05/01/21914 Procedure: INSERTION, INTRAMEDULLARY SCOTT, FEMUR Newton Periprosthetic Retrograde Femur Nail (Left Leg Upper) - 1A Case #2; Supine, Anuj table, Newton periprosthetic femur nail, Newton PS poly; trauma toolbox, ortho soft tissue Location: [facility] / [facility] OR Surgeons: Bebeto Flynn MD Pt is a 55yo with a PMHx of COPD, DM (on januvia), HTN, psoriatic arthritis, asthma, fibromyalgia, hypothyroidism, and gastric bypass surgery (Eulogio-en- Y) who presented after a fall from standing after tripping at home. Patient found to have left distal periprosthetic femur fracture. Patient reports that she did hit her head on fall. Denies any LOC. Now to OR for insertion of IM Femur Scott. Of note, patient reports asthma attack during prior surgery and notes that she has required breathing treatments prior to receiving anesthesia in the past. Relevant Problems Cardio (+) HTN (hypertension) GI (+) Obesity Clinical information reviewed: Med Hx COPD, DM, HTN, psoriatic arthritis, asthma, hypothyroidism, fibromalgia, Kidney stones, and gastric bypass surgery (Eulogio-en- Y). Tobacco No Tobacco use Allergies Cefdinir- anaphylaxis, Morphine- Hallucination Problems Surg Hx Knee Replacement x2, Eulogio-en-Y bypass, Cholecystectomy, Left knee meniscus repair x2, Csection x2 Fam Hx Social: Patient has smoked 1/2 ppd for 40 years. No alcohol or illicit drug use. NPO Status >8 hours Physical Exam Airway Mallampati: II Mouth opening: normal TM distance: >3 FB Neck ROM: full Cardiovascular - normal exam Rhythm: regular Rate: normal Dental - normal exam Pulmonary - normal exam Neurological - normal exam Oriented: normal to time, normal to place and normal to person Skin - normal exam Musculoskeletal - normal exam Extremities -normal exam Anesthesia Plan ASA 3 - emergent Anesthesia technique(s) discussed with the patient/family: General Anesthesia plan agreed upon was: general Induction planned: intravenous Airway management planned: general endotracheal Anesthetic plan and risks discussed with patient. Use of blood products discussed with patient who consented to blood products. Plan discussed with attending. Additional Equipment Requests Cosigned by Patricio Figueroa MD at 05/01/2021 8:39 AM EST documented in this encounter Plan of Treatment Not on file documented as of this encounter Procedures Procedure Name Priority Date/Time Associated Diagnosis Comments ANESTHESIA PERIPHERAL IV PLACEMENT Routine 05/01/2021 2:15 PM EST ANESTHESIA ULTRASOUND GUIDED Routine 05/01/2021 2:14 PM EST PB ANESTHESIA PLACEHOLDER Routine 05/01/2021 1:09 PM EST AL AN ELECTIVE ENDOTRACHEAL AIRWAY Routine 05/01/2021 1:09 PM EST documented in this encounter Results * Peripheral IV (05/01/2021 2:15 PM EST) Matt Will MD - 05/01/2021 2:15 PM EST Matt Sampson MD ? 05/01/2021 ??2:15 PM Peripheral IV Inserted by: Matt Sampson MD Placement Needle size: 18 G Location: hand Local anesthetic: none Site prep: alcohol Technique: anatomical landmarks Attempts: 1 us Patricio Figueroa MD ANESTHESIA ORDERABLES Final Re sult * ANESTHESIA ULTRASOUND GUIDED (05/01/2021 2:14 PM EST) Matt Will MD - 05/01/2021 2:14 PM EST Matt Sampson MD ? 05/01/2021 ??2:15 PM Peripheral IV Inserted by: Patricio Figueroa MD Placement Needle size: 18 G Location: hand Local anesthetic: none Site prep: alcohol Technique: ultrasound guided Attempts: 1 us Patricio Figueroa MD ANESTHESIA ORDERABLES Final Re sult * AL AN ELECTIVE ENDOTRACHEAL AIRWAY, PB ANESTHESIA PLACEHOLDER (05/01/2021 1:09 PM EST) Patricio Schulte MD - 05/01/2021 1:09 PM EST Matt Sampson MD ? 05/01/2021 ??2:14 PM Airway Date/Time: 05/01/2021 1:09 PM Urgency: elective Airway not difficult General Information and Staff Patient location during procedure: OR Anesthesiologist: Patricio Figueroa MD Resident: Matt Sampson MD Performed: Resident Indications and Patient Condition Indications for airway management: anesthesia Spontaneous Ventilation: absent Preoxygenated: yes Patient position: sniffing Mask difficulty assessment: 1 - vent by mask Final Airway Details Final airway type: endotracheal airway Successful airway: ETT Cuffed: yes Successful intubation technique: direct laryngoscopy Facilitating devices/methods: cricoid pressure and intubating stylet Endotracheal tube insertion site: oral Blade: Zheng Blade size: #3 ETT size (mm): 7.5 Cormack-Lehane Classification: grade I - full view of glottis Placement verified by: chest auscultation and capnometry Measured from: lips ETT to lips (cm): 23 Number of attempts at approach: 1 us Patricio Figueroa MD ANESTHESIA ORDERABLES Final Re sult documented in this encounter Visit Diagnoses Not on filedocumented in this encounter Administered Medications Inactive Administered Medications - up to 3 most recent administrations Medication Order MAR Action Action Date Dose Rate Site clindamycin (Cleocin) IV solution Intravenous, As needed, Starting on 05/01/21 at 1334, Until 05/01/21 at 1606, Routine, Anesthesia Intraprocedure Given 05/01/2021 1:34 PM EST 900 mg dexamethasone (Decadron) injection Intravenous, As needed, Starting on 05/01/21 at 1342, Until 05/01/21 at 1606, Routine, Anesthesia Intraprocedure Given 05/01/2021 1:42 PM EST 4 mg fentaNYL (Sublimaze) injection Intravenous, As needed, Starting on 05/01/21 at 1306, Until 05/01/21 at 1606, Routine, Anesthesia Intraprocedure Given 05/01/2021 1:42 PM EST 50 mcg Given 05/01/2021 1:06 PM EST 100 mcg glycopyrrolate (Robinul) injection Intravenous, As needed, Starting on 05/01/21 at 1306, Until 05/01/21 at 1606, Routine, Anesthesia Intraprocedure Given 05/01/2021 1:06 PM EST 0.2 mg HYDROmorphone (Dilaudid) injection Intravenous, As needed, Starting on 05/01/21 at 1410, Until 05/01/21 at 1606, Routine, Anesthesia Intraprocedure Given 05/01/2021 3:00 PM EST 1 mg Given 05/01/2021 2:10 PM EST 0.5 mg ketamine (Ketalar) injection Intravenous, As needed, Starting on 05/01/21 at 1306, Until 05/01/21 at 1606, Routine, Anesthesia Intraprocedure Given 05/01/2021 1:06 PM EST 30 mg lactated Ringer's infusion Intravenous, Continuous PRN, Starting on 05/01/21 at 1300, Until 05/01/21 at 1531, Routine New Bag 05/01/2021 1:00 PM EST Lidocaine HCl solution prefilled syringe Buccal, As needed, Starting on 05/01/21 at 1306, Anesthesia Intraprocedure Given 05/01/2021 3:28 PM EST 20 mg Given 05/01/2021 1:06 PM EST 80 mg ondansetron (Zofran) injection Intravenous, As needed, Starting on 05/01/21 at 1513, Until 05/01/21 at 1606, Routine, Anesthesia Intraprocedure Given 05/01/2021 3:13 PM EST 4 mg propofol (Diprivan) injection Intravenous, As needed, Starting on 05/01/21 at 1306, Until 05/01/21 at 1606, Routine, Anesthesia Intraprocedure Given 05/01/2021 3:27 PM EST 20 mg Given 05/01/2021 1:06 PM EST 120 mg rocuronium (ZeMuron) injection Intravenous, As needed, Starting on 05/01/21 at 1306, Until 05/01/21 at 1606, Routine, Anesthesia Intraprocedure Given 05/01/2021 1:06 PM EST 70 mg vancomycin IVPB 2000 mg in 250 mL NS IVPB 2,000 mg, Intravenous, Once, 1 dose, On 05/01/21 at 1400, at 147.5 mL/hr, Routine Given 05/01/2021 2:00 PM EST 2,000 mg documented in this encounter Care Teams Banking Attorney Relationship Specialty Start Date End Date Salima Gonzáles DO [address] [place] [address] PCP - General 09/17/20 documented as of this encounter
--- OUTSIDE RECORDS SUMMARY | 2024-04-06 21:58 | XMS_ITS | Encounter Summary ---
Author Organization Healthcare Address [facility] [place] [id number] Care Team Providers Care Photographic Machine Operator Name Role Phone Eliecer Salima Ybarra Primary Care Provider [phone] Reason for Visit * Reason Comments Fall * Auth/Cert Specialty Diagnoses / Procedures Referred By Contac t Referred To Contact Diagnoses Closed fracture of distal end of left femur, unspecified fracture morphology, initial encounter (CMS/[facility]) Fall, femur fx Ji Matos MD [address] [address] Phone: tel: fax: [facility] H Inpatient [address] [place] [address] Phone: tel: Referral ID Status Reason Start Date Expiration Date Visits Re quested Visits Authorized [id number] 1 1 Encounter Details Date Type Department Care Team (Late st Contact Info) Description 04/30/2021 12:34 PM EST - 05/07/2021 9:14 AM [facility] Hospital Encounter [facility] H Inpatient [address] [place] [id number] Samson Bustamante MD [address] [place] [address] Clay Oviedo MD [address] [place] [address] Ji Matos MD [address] [address] Dory Slade MD [address] [place] [address] Closed fracture of distal end of left femur, unspecified fracture morphology, initial encounter ([facility]) (Primary Dx) Discharge Disposition: Home or Self Care Social [...] PM EST documented as of this encounter Last Filed Vital Signs Vital Sign Reading Time Taken Comments Blood Pressure 129/83 05/07/2021 8:06 AM EST Pulse 72 05/07/2021 8:06 AM EST Temperature 36.8 ??C (98.2 ??F) 05/07/2021 8:06 AM ES T Respiratory Rate 18 05/07/2021 8:06 AM EST Oxygen Saturation 94% 05/07/2021 8:06 AM EST Inhaled Oxygen Concentration - - Weight 120 kg (264 lb 8.8 oz) 05/01/2021 3:50 PM EST Height 154.9 cm (5' 0.98 ) 05/01/2021 3:50 PM ES T Body Mass Index 50.01 05/01/2021 3:50 PM EST documented in this encounter Discharge Instructions * Discharge Instructions* Markie Cooley, DIANE - 05/03/2021 8:58 AM EST Images from the original note were not included. Patient Education How Bones Heal Bone is living tissue made up of cells. When a bone breaks, cells in the blood jason to the fractured area. These cells help grow??new bone. Bones heal through a gradual process called remodeling. Thelength of this process depends on general health, age, the type of fracture and how well the injuryis cared for. The new bone grows stronger, even after a cast is removed. The fracture callus shrinks and remodelsas the bone is used. The fibers are replaced by new bone. At first, the new bone is weak and spongy. This is called a fracture callus. Cells form a network of strong fibers inside the blood clot. These fibers hold bone fragments together. Tissues bleed around the fracture. This forms a blood clot in the space between bone fragments. [employer] last reviewed this educational content on 09/04/2017 ?? [id number] The [employer] [place]. All rights reserved. This information is not intended as a substitute for professional medical care. Always follow your healthcare professional's instructions. * Attachments The following attachments cannot be sent through Care Everywhere. * Femur Fracture Open Reduction and Internal Fixation (ORIF), Understanding ([place]) * Femur Fracture Open Reduction and Internal Fixation (ORIF), Having ([place]) * Fractured Femur: Internal Fixation, Discharge Instructions for ([place]) * Surgical Site Infections, Preventing ([place]) * Weight Bearing Status: What It Means ([place]) ([place]) * Acetaminophen Oral Tablet 500 mg ([place]) * Enoxaparin Prefilled Syringe 60 mg/0.6 mL ([place]) * Gabapentin Oral Capsule 300 mg ([place]) * Levofloxacin Oral Tablet 750 mg ([place]) * Melatonin Oral Tablet 3 mg ([place]) * Methocarbamol Oral Tablet 500 mg ([place]) * Oxycodone Oral Tablet 5 mg ([place]) * Controlled Substance Discharge Sheet - [facility] () ([place]) * Senna /Docusate Oral Tablet 8.6 mg / 50 mg ([place]) documented in this encounter Medications [...] by mouth 2 (two) times a day. gabapentin (Neurontin) 300 MG capsule Take 1 capsule (300 mg total) by mouth every 8 (eight) hours for 10 days. 30 capsule 05/06/2021 hydrocortisone 2.5 % cream Apply 1 application [...] by mouth 1 (one) time each day. methocarbamol (Robaxin) 500 MG tablet Take 1 tablet (500 mg total) by mouth every 8 (eight) hours for 10 days. 30 tablet 05/06/2021 montelukast (Singulair) 10 MG tablet Take 10 [...] by mouth 1 (one) time each day. acetaminophen (Tylenol) 500 MG tablet Take 2 tablets (1,000 mg total) by mouth every 6 (six) hours for 10 days. 30 tablet 05/06/2021 2 enoxaparin (Lovenox) 60 MG/0.6ML solution Inject 0.6 mL (60 mg total) under the skin 2 (two) times a day for 31 doses. Pt will need enoxaparin 60 mg BID through 05/21 then ASA 81 BID through 06/04 31 each 05/06/2021 2 levoFLOXacin (Levaquin) 750 MG tablet Take 1 tablet (750 mg total) by mouth 1 (one) time each day for 1 dose. 1 tablet 05/07/2021 2 melatonin 3 MG tablet Take 2 tablets (6 mg total) by mouth at night if needed for sleep. 30 tablet 05/06/2021 2 oxyCODONE (Roxicodone) 5 MG immediate release tablet Take 1 tablet (5 mg total) by mouth every 4 (four) hours if needed for moderate pain or severe pain for up to 3 days. 18 tablet 05/06/2021 2 senna-docusate (Nia-Colace) 8.6-50 MG tablet Take 2 tablets by mouth 2 (two) times a day. 120 tablet 11 05/06/2021 2 albuterol (2.5 MG/3ML) 0.083% nebulizer solution Take 2.5 mg by nebulization every 6 (six) hours if needed for wheezing. 2 linaCLOtide (Linzess) 72 MCG capsule Take 145 mcg by mouth 1 (one) time each day in the morning. 2 polycarbophil (Fibercon) 625 MG tablet Take 625 mg by mouth 1 (one) time each day. 2 documented as of this encounter Miscellaneous Notes * Progress Notes - Gabby Pratt APRN - 05/07/2021 7:34 AM EST 05/07/21 Ambika Pratt HPI 55 yr old female admitted due to fall on 04/30. PMH of COPD, DM, HTN without CHF. Taken to OR on 05/01/21 for ORIF of left femur fracture. Past 24 hrs She is awake and in bed this morning on rounds. VSS. Patient denies n/v, shortness of breath, difficulty breathing, chest pain. Patient voiding spontaneously. Patient and nurse have no other concernsat this time. Patient ready for discharge . Edited by: Gabby Pratt APRN at 05/07/2021 0734 A 14 point review of systems was reviewed and is negative except as mentioned in the HPI. Vital signs: Vitals: 05/06/21 2353 BP: 114/69 Pulse: 67 Resp: 16 Temp: 36.9 ??C (98.5 ??F) SpO2: 95% Physical Exam Vitals reviewed. Constitutional: Appearance: She is obese. HENT: Head: Normocephalic. Mouth/Throat: Mouth: Mucous membranes are moist. Pharynx: Oropharynx is clear. Eyes: Pupils: Pupils are equal, round, and reactive to light. Cardiovascular: Rate and Rhythm: Normal rate. Pulses: Normal pulses. Pulmonary: Effort: Pulmonary effort is normal. Breath sounds: Normal breath sounds. Abdominal: General: Abdomen is flat. Palpations: Abdomen is soft. Genitourinary: Comments: Reports burning with urination. Voiding without difficulty. Musculoskeletal: General: Normal range of motion. Cervical back: Normal range of motion. Comments: ORIF L femur fx Skin: General: Skin is warm and dry. Neurological: General: No focal deficit present. Mental Status: She is alert and oriented to person, place, and time. Mental status is at baseline. Psychiatric: Mood and Affect: Mood normal. Behavior: Behavior normal. Thought Content: Thought content normal. Judgment: Judgment normal. No intake or output data in the 24 hours ending 05/07/21 0734 Lines/Drains/Tubes: Patient Lines/Drains/Airways Status Active Airway None Output by Drain (mL) 05/05/21 0700 - 05/05/21 1859 05/05/21 1900 - 05/06/21 0659 05/06/21 07 - 05/06/21 1859 05/06/21 1900 - 05/07/21 0659 05/07/21 0700 - 05/07/21 0734 Patient has no LDAs of requested type attached. Labs in last 18 hours: CBC WBC ?? Hb ?? Plt ?? Hct ?? ANC ?? INR ??, PTT ??, Anti-Xa ?? MCV ?? BMP Na ?? Cl ?? BUN ?? Glu ?? K ?? Co2 ?? Cr ?? Ca ?? iCa ?? Mg ??, Phos ?? Lactate ?? LFT AST ?? AlkPhos ?? T Prot ?? ALK ?? Bili ?? Alb ?? D.Bili ?? Lab Trends: H/H Results from last 7 days Lab Units 05/02/21 0359 05/01/2122004/30/21 1420 HEMOGLOBIN g/dL 10.1* 12.1 13.5 HEMATOCRIT % 31.5* 37.9 40.3 INR Results from last 7 days Lab Units 05/01/21 0221 04/30/21 1419 INR 1.0 1.0 Cr Results from last 7 days Lab Units 05/02/21 0359 05/01/2122004/30/21 1419 CREATININE mg/dL 0.81 0.85 0.87 Medications reviewed. Vital signs reviewed. Labs reviewed. Radiography reviewed. Assessment and Plan: Medical Problems Problem List * (Principal) Closed fracture of left distal femur (CMS/HCC) Overview Addendum 05/02/2021 7:08 AM by Gabby Pratt APRN Ortho following ORIF of left femur fracture on 05/01 WBAT LLE Follow up with Dr. Flynn 05/17/21 Fall Overview Addendum 05/02/2021 7:08 AM by Gabby Pratt APRN Admit to trauma floor Multimodal pain control Diabetes (CMS/HCC) Overview Addendum 05/02/2021 7:09 AM by Gabby Pratt APRN Sliding-scale insulin CC2 diet Monitor FS Elevated LFTs Overview Addendum 05/04/2021 12:44 PM by Gabby Pratt APRN Stable abdominal exam Labs down trending HTN (hypertension) Overview Signed 05/01/2021 8:12 AM by Ava Joseph APRN Restart home meds as appropriate Obesity Overview Signed 05/01/2021 8:12 AM by Ava Joseph APRN Could complicate care Fibromyalgia Overview Signed 05/01/2021 8:13 AM by Ava Joseph APRN could complicate care UTI (urinary tract infection) Overview Signed 05/05/2021 10:35 AM by Yamini Belcher APRN [place] x 3 days Present on Admission: ??? Closed fracture of left distal femur (CMS/HCC) ??? Fall ??? Diabetes (CMS/HCC) ??? Elevated LFTs ??? (Resolved) Lactic acidosis ??? HTN (hypertension) ??? Obesity ??? Fibromyalgia ??? UTI (urinary tract infection) Plan: - Pain control - encourage IS - encourage mobility with nursing - discharge home today Dispo: home Edited by: Gabby Pratt APRN at 05/07/2021 0734 Gabby Pratt APRN * Progress Notes - Marilu Beltran RN - 05/06/2021 12:12 PM EST CM received message from provider that pt is ready for discharge and will need DME and HH PT/OT. Referrals for DME sent to [facility]. Referrals sent for HH. No accepting agency at this time. Provider to give pt a script for outpt PT/OT in the event she isn't picked up by HH. Will follow and assist asneeded. Marilu CHAVIRA, RN Trauma/EGS [phone] * Discharge Instr - Appointments - Isiah Crawley RN - 05/06/2021 9:44 AM EST Follow up with Primary Care Provider one week after discharge. Follow up as needed with trauma clinic (Sunday clinic) [address] [place] [address] Clinic 1st [place] [address] Questions or Concerns and Appointments If there are questions or concerns after discharge from the hospital, please call [phone] and ask for Blue Surgery Nurse. Working hours are Sunday - Sunday 8:00 AM to 4:00 PM. After hours, weekends and holidays please call [phone] and ask for the resident risk management professional for Blue Surgery. For appointments please call [phone]. Medication requests should be made between the hours of 9:00 AM to 3:00 PM Sunday thru Sunday. Please note that based upon recent changes to [place] law related to prescribing opioid pain medications, our providers will not provide refills on controlled medications after your hospital discharge following a major surgery or trauma. [place], [place]:260. * Progress Notes - Betty Arellano, PT - 05/06/2021 9:13 AM EST Physical Therapy Treatment Patient Name: Ambika Pratt Today's Date: 05/06/2021 PT Discharge Recommendations: Home with assistance,Home health PT Equipment Recommended: Rolling walker Subjective Pt is ready to discharge home today. Feels comfortable and all questions/concerns were answered by end of session. Presentation Pre-Session: Supine Post-Session: Sitting in chair,Call light in reach,RN notified Post-Session Comments: LE's elevated (+ pillow under left LE) Precautions Left Lower Extremity Weight Bearing Status: Protected weight-bearing as tolerated?? Objective Pain Pain Assessment Pain Assessment: No/denies pain Delirium Screening [place] Agitation Sedation Scale (RASS): Alert and calm Confusion Assessment Method-ICU (CAM-ICU/PCAM-ICU) Feature 3: Altered Level of Consciousness: Negative Bed Mobility ( 5 minutes) Bed Mobility Exam: Scooting/Bridging Physical/Nonphysical Assist: Supervision Bed Mobility Exam: Supine to Sit Physical/Nonphysical Assist: Supervision,Verbal Cues Transfers ( 2 minutes) Transfer Exam: Sit to stand Level of [place]: Stand-by assist Physical/Nonphysical Assist: Verbal Cues (for hand placement) Assistive Device: Walker, rolling Transfer Exam: Stand to Sit Level of [place]: Stand-by assist Physical/Nonphysical Assist: Verbal Cues (for safety) Assistive Device: Walker, rolling Transfer: Car Transfer: Through demonstration, pt verbalized understanding of how to complete the car transfer into her Dad's truck. Gait Training ( 13 minutes) Device: Rolling walker Assistance: Standby assist Distance: 150 feet Gait Analysis: Step to gait pattern with decreased step length Gait Training Interventions: Pt verbalized understanding of how to adjust a RW to proper height andanatomical fit. Pt required verbal cues to keep walker close for more efficient use of UE on walkerand for progression to a step through gait pattern. Stairs Stair Training Interventions: Pt verbalized understanding of how to safely ascend the 1 step to enter. Therapeutic Exercise ( 3 minutes) Pt received written HEP of exercises that she has been performing during hospital stay. Assessment Pt demonstrated the ability to safely discharge home. PT Recommendations Discharge Destination: Home with assistance,Home health PT Discharge Equipment: Rolling walker PT Goals PT GOAL DETAILS Goal Established Date Time Frame Goal Status PT Goal 1: Patient will transfer supine to sit with modified independence from flat surface in preparation to discharge home. 05/02/21 2 weeks PT Goal 2: Patient will ambulate 100 feet with least restrictive device with modified independence to reduce risk of falls. 05/02/21 2 weeks PT Goal 3: Patient will be independent with HEP to improve strength and ROM to improve functional mobility. 05/02/21 2 weeks PT Goal 4: Patient will stand from varying heights with modified independence to improve safety within the home. 05/02/21 2 weeks Written by Betty Arellano, PT on 05/06/21 at 10:15 AM. * Discharge Summary - Yamini Belcher, YAIMA - 05/06/2021 8:31 AM EST Images from the original note were not included. Hospitalization Admit Date/Time: 04/30/2021 12:34 PM Admitting Attending: Ji Matos Discharge Date: 05/07/2020 Discharge Attending Physician: Dory Slade Md PCP name and Address: Salima Gonzáles, DO [address] / [facility] [address] Referring provider name and address: Shaquille Gaming MD [address] [address] Chief Concern, Brief History of Present Illness, and Hospital Course Admitted to Trauma Team and evaluated per ATLS protocol, scans and xrays performed. Injuries andconcerns include: Left distal femur fracture, HTN, fibromyalgia, DM, and obesity. Physical therapy and occupational therapy evaluated the patient during hospitalization and recommend acute rehab but she progressed and declined rehab and will discharge to home with rolling walker. At the time of discharge the patient was hemodynamically stable, tolerating PO, voiding spontaneously, normal bowel function, mobilizing appropriately, with their pain controlled with PO medication. At this time, the patient has obtained the maximum benefit from the present hospital stay, and so will be discharged to home DVT prophylaxis: Lovenox 30 mg BID until 05/21 ASA 81 mg BID until 06/04 Procedures: ORIF of left femur fracture on 05/01 Mobility Restrictions: Protected WBAT LLE Follow up: Primary care provider 1 week Follow up with Dr. Flynn 05/17/21 Follow-up as needed with trauma clinic (Sunday clinic) [address] [place] [address] 1st [place] [address] Questions or Concerns and Appointments If there are questions or concerns after discharge from the hospital, please call [phone] and ask for Blue Surgery Nurse. Working hours are Sunday - Sunday 8:00 AM to 4:00 PM. After hours, weekends and holidays please call [phone] and ask for the resident risk management professional for Blue Surgery. For appointments please call [phone]. Medication requests should be made between the hours of 9:00 AM to 3:00 PM Sunday thru Sunday. Please note that based upon recent changes to [place] law related to prescribing opioid pain medications, our providers will not provide refills on controlled medications after your hospital discharge following a major surgery or trauma. [place], [place] KAR9:260. Surgeries and Procedures Procedures performed in this encounter Procedures ??? Case Request Operating Room: INSERTION, INTRAMEDULLARY JESSE, FEMUR [place] Periprosthetic Retrograde Femur Nail INSERTION, INTRAMEDULLARY JESSE, FEMUR [place] Periprosthetic Retrograde Femur Nail (Left) Medication List .. acetaminophen 500 MG tablet Commonly known as: Tylenol Take 2 tablets (1,000 mg total) by mouth every 6 (six) hours for 10 days. acidophilus probiotic blend capsule Take 1 capsule by mouth 1 (one) time each day. * albuterol (2.5 MG/3ML) 0.083% nebulizer solution Take 2.5 mg by nebulization every 6 (six) hours if needed for wheezing. * albuterol 108 (90 Base) MCG/ACT inhaler Inhale 2 puffs every 6 (six) hours if needed for wheezing. buPROPion SR 150 MG 12 hr tablet Commonly known as: Wellbutrin SR Take 150 mg by mouth 2 (two) times a day. Do not crush, chew, or split. cyanocobalamin 1000 MCG tablet Commonly known as: Vitamin B-12 Take 1,000 mcg by mouth 1 (one) time each day. diclofenac 1 % topical gel Commonly known as: Voltaren Place 4 g on the skin 4 (four) times a day. To ankle and foot enoxaparin 60 MG/0.6ML solution Commonly known as: Lovenox Inject 0.6 mL (60 mg total) under the skin 2 (two) times a day for 31 doses. Pt will need enoxaparin 60 mg BID through 05/21 then ASA 81 BID through 06/04 ferrous sulfate 325 (65 Fe) MG tablet Take 325 mg by mouth 1 (one) time each day. FLUoxetine 40 MG capsule Commonly known as: PROzac Take 40 mg by mouth 2 (two) times a day. gabapentin 300 MG capsule Commonly known as: Neurontin Take 1 capsule (300 mg total) by mouth every 8 (eight) hours for 10 days. hydrocortisone 2.5 % cream Apply 1 application topically 2 (two) times a day if needed. hydrOXYzine pamoate 25 MG capsule Commonly known as: Vistaril Take 25 mg by mouth 3 (three) times a day if needed for anxiety. ketoconazole 2 % cream Commonly known as: NIZOral Apply 1 application topically 1 (one) time each day if needed for itching. levoFLOXacin 750 MG tablet Commonly known as: Levaquin Take 1 tablet (750 mg total) by mouth 1 (one) time each day for 1 dose. Start taking on: May 07, 2021 levothyroxine 125 MCG tablet Commonly known as: Synthroid, Levoxyl Take 125 mcg by mouth 1 (one) time each day. Linzess 72 MCG capsule Generic drug: linaCLOtide Take 145 mcg by mouth 1 (one) time each day in the morning. loratadine 10 MG tablet Commonly known as: Claritin Take 10 mg by mouth 1 (one) time each day. losartan 100 MG tablet Commonly known as: Cozaar Take 100 mg by mouth 1 (one) time each day. melatonin 3 MG tablet Take 2 tablets (6 mg total) by mouth at night if needed for sleep. methocarbamol 500 MG tablet Commonly known as: Robaxin Take 1 tablet (500 mg total) by mouth every 8 (eight) hours for 10 days. montelukast 10 MG tablet Commonly known as: Singulair Take 10 mg by mouth every night. multivitamin with minerals tablet Take 1 tablet by mouth 1 (one) time each day. oxyCODONE 5 MG immediate release tablet Commonly known as: Roxicodone Take 1 tablet (5 mg total) by mouth every 4 (four) hours if needed for moderate pain or severe painfor up to 3 days. pantoprazole 40 MG EC tablet Commonly known as: Protonix Take 40 mg by mouth 2 (two) times a day. Do not crush, chew, or split. polycarbophil 625 MG tablet Commonly known as: Fibercon Take 625 mg by mouth 1 (one) time each day. pregabalin 150 MG capsule Commonly known as: Lyrica Take 150 mg by mouth 2 (two) times a day. senna-docusate 8.6-50 MG tablet Commonly known as: Nia-Colace Take 2 tablets by mouth 2 (two) times a day. simvastatin 5 MG tablet Commonly known as: Zocor Take 5 mg by mouth every night. SITagliptin 100 MG tablet Commonly known as: Januvia Take 100 mg by mouth 1 (one) time each day. vitamin C 250 MG tablet Take 250 mg by mouth 1 (one) time each day. * This list has 2 medication(s) that are the same as other medications prescribed for you. Read thedirections carefully, and ask your doctor or other care provider to review them with you. Where to Get Your Medications These medications were sent to [facility] - [place], [place] - [address] , [facility] [address] ?? acetaminophen 500 MG tablet ?? enoxaparin 60 MG/0.6ML solution ?? gabapentin 300 MG capsule ?? levoFLOXacin 750 MG tablet ?? melatonin 3 MG tablet ?? methocarbamol 500 MG tablet ?? oxyCODONE 5 MG immediate release tablet ?? senna-docusate 8.6-50 MG tablet Discharge Diagnosis Medical Problems Active and Resolved Hospital Problems Hospital UTI (urinary tract infection) Overview Signed 05/05/2021 10:35 AM by Yamini Belcher APRN Levaquin x 3 days * (Principal) Closed fracture of left distal femur (CMS/HCC) Overview Addendum 05/02/2021 7:08 AM by Gabby Pratt APRN Ortho following ORIF of left femur fracture on 05/01 WBAT LLE Follow up with Dr. Flynn 05/17/21 Fall Overview Addendum 05/02/2021 7:08 AM by Gabby Pratt APRN Admit to trauma floor Multimodal pain control Diabetes (CMS/HCC) Overview Addendum 05/02/2021 7:09 AM by Gabby Pratt APRN Sliding-scale insulin CC2 diet Monitor FS Elevated LFTs Overview Addendum 05/04/2021 12:44 PM by Gabby Pratt APRN Stable abdominal exam Labs down trending HTN (hypertension) Overview Signed 05/01/2021 8:12 AM by Ava Joseph APRN Restart home meds as appropriate Obesity Overview Signed 05/01/2021 8:12 AM by Ava Joseph APRN Could complicate care Fibromyalgia Overview Signed 05/01/2021 8:13 AM by Ava Joseph APRN could complicate care RESOLVED: Lactic acidosis Overview Signed 04/30/2021 4:44 PM by Ava Joseph APRN IVF Recheck Outpatient Follow-Up Future Appointments Date Time Provider Department Center 05/17/2021 8:10 AM MD [facility] Pertinent Physical Exam At Time of Discharge Physical Exam Vitals reviewed. Constitutional: Appearance: She is obese. HENT: Head: Normocephalic. Mouth/Throat: Mouth: Mucous membranes are moist. Pharynx: Oropharynx is clear. Eyes: Pupils: Pupils are equal, round, and reactive to light. Cardiovascular: Rate and Rhythm: Normal rate. Pulses: Normal pulses. Pulmonary: Effort: Pulmonary effort is normal. Breath sounds: Normal breath sounds. Abdominal: General: Abdomen is flat. Palpations: Abdomen is soft. Genitourinary: Comments: Reports burning with urination. Voiding without difficulty. Musculoskeletal: General: Normal range of motion. Cervical back: Normal range of motion. Comments: ORIF L femur fx on 05/01/21. Protected WBAT LLE. Skin: General: Skin is warm and dry. Capillary Refill: Capillary refill takes less than 2 seconds. Neurological: General: No focal deficit present. Mental Status: She is alert and oriented to person, place, and time. Mental status is at baseline. Psychiatric: Mood and Affect: Mood normal. Behavior: Behavior normal. Thought Content: Thought content normal. Judgment: Judgment normal. Discharge Disposition/Condition Disposition: Home Condition: Stable (s/sx potential problems absent or manageable) I spent >30 minutes of patient care and instruction time in preparation for this discharge. * Care Plan - Reny Padron RN - 05/05/2021 8:58 PM EST Problem: Adult Inpatient Plan of Care Goal: Plan of Care Review Outcome: Ongoing, Progressing Flowsheets (Taken 05/05/20212057) Progress: improving Plan of Care Reviewed With: patient Goal: Patient-Specific Goal (Individualized) Outcome: Ongoing, Progressing Goal: Absence of Hospital-Acquired Illness or Injury Outcome: Ongoing, Progressing Goal: Optimal Comfort and Wellbeing Outcome: Ongoing, Progressing Goal: Readiness for Transition of Care Outcome: Ongoing, Progressing Problem: Mobility Impairment Goal: Optimal Mobility Outcome: Ongoing, Progressing Problem: Pain Acute Goal: Acceptable Pain Control and Functional Ability Outcome: Ongoing, Progressing * Consults - Adrianne Beal RD - 05/05/2021 2:08 PM EST Adult Nutrition Evaluation Note Ambika Pratt 55 y.o. female CSN: [id number] Room/Bed 874/[id number] Nutrition evaluation type: assessment Reason for evaluation: LOS Hospital course: 55 yo female S/P ORIF left femur fracture on 05/01. Past medical/ surgical history: has a past medical history of COPD (chronic obstructive pulmonary disease) ([facility]), Diabetes mellitus ([facility]), Hypertensive heart disease without congestive heart failure, and Lactic acidosis (04/30/2021). Social history: Additional comments: Vitals and Basic Assessment: BP: 115/82 Temp: 36.7 ??C (98.1 ??F) Oxygen Therapy: None (Room air) O2 Delivery Method: Nasal cannula Brittany Coma Scale Score: 15 Ranulfo Scale Score: 20 GI Symptoms: Constipation Edema: Left lower extremity,Generalized Allergies: no food allergies listed Medications: Meds were reviewed: Yes Labs: Labs in last 18 hours CBC WBC ?? Hb ?? Plt ?? Hct ?? ANC ?? INR ??, PTT ??, Anti-Xa ?? BMP Na ?? Cl ?? BUN ?? Glu ?? K ?? Co2 ?? Cr ?? Ca ?? iCa ?? Mg ??, Phos ?? Lactate ?? LFT AST ?? AlkPhos ?? T Prot ?? ALK ?? Bili ?? Alb ?? D.Bili ?? HgA1C 5.5 Anthropometrics: Height: 154.9 cm (5' 0.98 ) Weight: 120 kg (264 lb 8.8 oz) BMI (Calculated): 50.01 Weight Evaluation: Extreme Obesity (BMI > 40) Tamms Body Weight (kg): 47.7 Percent Tamms Body Weight: 252 Estimated Needs: Grams of CHO Percent calories from CHO: Current Nutrition Intake: Diet Order: Adult Diet Diet Texture: Regular Adult Carbohydrate Restriction: Consistent CHO 2 ([id number] Usman, 80 g/meal) Percent Meals Eaten (%): 75%/75%/33% (05/03) Diet Experience and Nutrition History: Diet Education Provided: Will monitor Pertinent home medications: [employer] needs: Nutrition Focused Physical Exam: Unable to Complete Exam: (deferred) Physical exam performed on (date): Assessment of Malnutrition: Unable to Complete Exam: (deferred) Nutrition Problem: No nutrition problem identified at this time. Nutrition Interventions and Recommendations: - Continue CC2 diet. Document and monitor intake. - If intake of meals <60% meals, consider adding Boost Glucose Control BID. Nutrition Monitoring and Goals: - intake >/= 75% meals Acuity Level: [address] * Progress Notes - Karma Gamez - 05/05/2021 1:27 PM EST Case Management Adult Progress Note Ambika Pratt 55 y.o. female CSN: [id number] Admission: 04/30/2021 12:34 PM Primary Problem: Closed fracture of left distal femur (CMS/HCC) Anticipated Discharge Date: tbd Has Discharge Plans Changed? No Additional Comments Per primary treatment team, patient medically ready for rehab. Referral sent to [facility] 05/03, reviewing for possible acceptance. will continue to follow and assist. JOSE Castillo, PERINATAL INSTRUCTOR Trauma/EGS Rn Bone Marrow Transplant [phone] * Progress Notes - aTd Fuller PTA - 05/05/2021 11:55 AM EST Physical Therapy Treatment Patient Name: Ambika Pratt Today's Date: 05/05/2021 PT Discharge Recommendations: Acute rehab Equipment Recommended: Defer to facility Subjective Patient agreed to therapy session. She reported that she was just about to ring out for someone to take her to there bathroom. RN approved therapy session. Participants in Care Family/Caregiver Present: No Wrapper Leaf Inspector: Not Applicable Presentation Oxygen Therapy: None (Room air) Pre-Session: Sitting in chair Pre-Session Comments: LE's elevated (+ pillow under left LE) Post-Session: Sitting in chair,Call light in reach,RN notified Post-Session Comments: LE's elevated (+ pillow under left LE) Precautions Left Lower Extremity Weight Bearing Status: Protected weight-bearing as tolerated?? Medical Precautions: Keep HOB > 30 degrees; okay to Reverse Trendelenberg Objective Pain Pain Assessment Pain Assessment: 0-10 Pain Score: 4 Pain Location: (Left distal femur and knee) Delirium Screening [place] Agitation Sedation Scale (RASS): Alert and calm Confusion Assessment Method-ICU (CAM-ICU/PCAM-ICU) Feature 3: Altered Level of Consciousness: Negative Ambulation Device: Rolling walker Assistance: Contact guard assist Distance : 120 Ambulation Comments: Step-to gait pattern leading with left LE; left foot flat during intial contact; chair follow - patient returned to room via chair post fatigue during ambulation Therapeutic Activity (15 minutes) CGA sit - stand - sit to/from chair and toilet; independent with nia-care post BM on toilet Assessment Patient was pleasant and motivated to participate in therapy session. CGA with all transfers; increased ambulation distance to 120' CGA with RWx before being brought back to room via recliner chair. PT Recommendations Discharge Destination: Acute rehab Discharge Equipment: Defer to facility Plan Continue with current PT POC PT Goals PT GOAL DETAILS Goal Established Date Time Frame Goal Status PT Goal 1: Patient will transfer supine to sit with modified independence from flat surface in preparation to discharge home. 05/02/21 2 weeks PT Goal 2: Patient will ambulate 100 feet with least restrictive device with modified independence to reduce risk of falls. 05/02/21 2 weeks PT Goal 3: Patient will be independent with HEP to improve strength and ROM to improve functional mobility. 05/02/21 2 weeks PT Goal 4: Patient will stand from varying heights with modified independence to improve safety within the home. 05/02/21 2 weeks Written by Tad Fuller PTA on 05/05/21 at 3:36 PM. * Progress Notes - Yamiin Belcher, WELD ENGINEER - 05/05/2021 10:02 AM EST 05/05/21 Ambika Pratt HPI 55 yr old female admitted due to fall on 04/30. PMH of COPD, DM, HTN without CHF. Taken to OR on 05/01/21 for ORIF of left femur fracture. Past 24 hrs: Ms. Aponte is awake and in the bed this morning on rounds. VSS. ORA. Patient denies n/v, shortness of breath, difficulty breathing, chest pain, weakness or paresthesia. Patient reports experiencing burning with urination; will treat with abx. Last BM yesterday. Patient and nurse have no other concerns at this time. Edited by: Yamini Belcher APRN at 05/05/2021 1000 A 14 point review of systems was reviewed and is negative except as mentioned in the HPI. Vital signs: Vitals: 05/05/21 0734 BP: 138/70 Pulse: 66 Resp: 18 Temp: 36.8 ??C (98.2 ??F) SpO2: 94% Physical Exam Vitals reviewed. Constitutional: Appearance: She is obese. HENT: Head: Normocephalic. Mouth/Throat: Mouth: Mucous membranes are moist. Pharynx: Oropharynx is clear. Eyes: Pupils: Pupils are equal, round, and reactive to light. Cardiovascular: Rate and Rhythm: Normal rate. Pulses: Normal pulses. Pulmonary: Effort: Pulmonary effort is normal. Breath sounds: Normal breath sounds. Abdominal: General: Abdomen is flat. Palpations: Abdomen is soft. Genitourinary: Comments: Reports burning with urination. Voiding without difficulty. Musculoskeletal: General: Normal range of motion. Cervical back: Normal range of motion. Comments: ORIF L femur fx on 05/01/21. Protected WBAT LLE. Skin: General: Skin is warm and dry. Capillary Refill: Capillary refill takes less than 2 seconds. Neurological: General: No focal deficit present. Mental Status: She is alert and oriented to person, place, and time. Mental status is at baseline. Psychiatric: Mood and Affect: Mood normal. Behavior: Behavior normal. Thought Content: Thought content normal. Judgment: Judgment normal. Intake/Output Summary (Last 24 hours) at 05/05/2021 1035 Last data filed at 05/04/2021 1700 Gross per 24 hour Intake -- Output 825 ml Net -825 ml Lines/Drains/Tubes: Patient Lines/Drains/Airways Status Active Airway None Output by Drain (mL) 05/03/21 0700 - 05/03/21 1859 05/03/21 1900 - 05/04/21 0659 05/04/21 0700 - 05/04/21 1859 05/04/21 1900 - 05/05/21 0659 05/05/21 0700 - 05/05/21 1035 Patient has no LDAs of requested type attached. Labs in last 18 hours: CBC WBC ?? Hb ?? Plt ?? Hct ?? ANC ?? INR ??, PTT ??, Anti-Xa ?? MCV ?? BMP Na ?? Cl ?? BUN ?? Glu ?? K ?? Co2 ?? Cr ?? Ca ?? iCa ?? Mg ??, Phos ?? Lactate ?? LFT AST ?? AlkPhos ?? T Prot ?? ALK ?? Bili ?? Alb ?? D.Bili ?? Lab Trends: H/H Results from last 7 days Lab Units 05/02/21 0359 05/01/2122004/30/21 1420 HEMOGLOBIN g/dL 10.1* 12.1 13.5 HEMATOCRIT % 31.5* 37.9 40.3 INR Results from last 7 days Lab Units 05/01/21 02204/30/21 1419 INR 1.0 1.0 Cr Results from last 7 days Lab Units 05/02/21 0359 05/01/2122004/30/21 1419 CREATININE mg/dL 0.81 0.85 0.87 Medications reviewed. Vital signs reviewed. Labs reviewed. Radiography reviewed. Assessment and Plan: Medical Problems Problem List * (Principal) Closed fracture of left distal femur (CMS/HCC) Overview Addendum 05/02/2021 7:08 AM by Gabby Pratt APRN Ortho following ORIF of left femur fracture on 05/01 WBAT LLE Follow up with Dr. Flynn 05/17/21 UTI (urinary tract infection) Overview Signed 05/05/2021 10:35 AM by Yamini Belcher APRN Levaquin x 3 days Fall Overview Addendum 05/02/2021 7:08 AM by Gabby Pratt APRN Admit to trauma floor Multimodal pain control Diabetes (CMS/HCC) Overview Addendum 05/02/2021 7:09 AM by Gabby Pratt APRN Sliding-scale insulin CC2 diet Monitor FS Elevated LFTs Overview Addendum 05/04/2021 12:44 PM by Gabby Pratt APRN Stable abdominal exam Labs down trending HTN (hypertension) Overview Signed 05/01/2021 8:12 AM by Ava Joseph APRN Restart home meds as appropriate Obesity Overview Signed 05/01/2021 8:12 AM by Ava Joseph APRN Could complicate care Fibromyalgia Overview Signed 05/01/2021 8:13 AM by Ava Joseph APRN could complicate care Present on Admission: ??? Closed fracture of left distal femur (CMS/HCC) ??? Fall ??? Diabetes (CMS/HCC) ??? Elevated LFTs ??? (Resolved) Lactic acidosis ??? HTN (hypertension) ??? Obesity ??? Fibromyalgia ??? UTI (urinary tract infection) Plan: - Weight-bearing restrictions: Protected WBAT LLE - DVT prophylaxis - Pain control - Nutritional optimization - Bowel regimen - encourage IS - encourage mobility with nursing - no need for AM labs - Levaquin for UTI x 3 days Dispo: Acute rehab Edited by: Yamini Belcher APRN at 05/05/2021 1000 Yamini Belcher APRN * Care Plan - Savanna Pressley RN - 05/05/2021 8:00 AM EST Problem: Adult Inpatient Plan of Care Goal: Patient-Specific Goal (Individualized) Outcome: Ongoing, Progressing Problem: Mobility Impairment Goal: Optimal Mobility Outcome: Ongoing, Progressing Problem: Pain Acute Goal: Acceptable Pain Control and Functional Ability Outcome: Ongoing, Progressing * Care Plan - Reny Padron RN - 05/05/2021 2:28 AM EST Problem: Adult Inpatient Plan of Care Goal: Plan of Care Review Outcome: Ongoing, Progressing Flowsheets (Taken 05/05/2021 0228) Progress: improving Plan of Care Reviewed With: patient Goal: Patient-Specific Goal (Individualized) Outcome: Ongoing, Progressing Goal: Absence of Hospital-Acquired Illness or Injury Outcome: Ongoing, Progressing Goal: Optimal Comfort and Wellbeing Outcome: Ongoing, Progressing Goal: Readiness for Transition of Care Outcome: Ongoing, Progressing Problem: Mobility Impairment Goal: Optimal Mobility Outcome: Ongoing, Progressing Problem: Pain Acute Goal: Acceptable Pain Control and Functional Ability Outcome: Ongoing, Progressing * Care Plan - Dahlia Velasco RN - 05/04/2021 1:50 PM EST Problem: Adult Inpatient Plan of Care Goal: Plan of Care Review Outcome: Ongoing, Progressing Goal: Absence of Hospital-Acquired Illness or Injury Outcome: Ongoing, Progressing * Progress Notes - Gabby Pratt APRN - 05/04/2021 12:46 PM EST 05/04/21 Ambika Aponte Pratt HPI 55 yr old female admitted due to fall on 04/30. Past 24 hrs: Ms. Aponte is awake and in the bed this morning on rounds. VSS. ORA. Patient denies n/v, shortness of breath, difficulty breathing, chest pain, weakness or paresthesia. Patient reports that patient she is experiencing burning with urination. Patient tolerating po intake. Last BM MACHINE ENGINEER. Patient and nurse have no other concerns at this time. Edited by: Gabby Pratt APRN at 05/04/2021 1237 A 14 point review of systems was reviewed and is negative except as mentioned in the HPI. Vital signs: Vitals: 05/04/21 1142 BP: 109/73 Pulse: 80 Resp: Temp: 36.8 ??C (98.3 ??F) SpO2: 92% Physical Exam Vitals and nursing note reviewed. Constitutional: General: She is not in acute distress. Appearance: Normal appearance. She is obese. She is not ill-appearing, toxic- appearing or diaphoretic. HENT: Head: Normocephalic. Nose: Nose normal. No congestion or rhinorrhea. Mouth/Throat: Mouth: Mucous membranes are moist. Pharynx: No oropharyngeal exudate or posterior oropharyngeal erythema. Eyes: General: Right eye: No discharge. Left eye: No discharge. Pupils: Pupils are equal, round, and reactive to light. Cardiovascular: Heart sounds: No murmur heard. No friction rub. Pulmonary: Effort: Pulmonary effort is normal. No respiratory distress. Breath sounds: No stridor. No wheezing, rhonchi or rales. Chest: Chest wall: No tenderness. Abdominal: General: There is no distension. Tenderness: There is no abdominal tenderness. There is no guarding or rebound. Musculoskeletal: General: Signs of injury (LLE) present. No swelling, tenderness or deformity. Normal range of motion. Cervical back: Normal range of motion. No rigidity or tenderness. Skin: General: Skin is warm. Coloration: Skin is not jaundiced or pale. Findings: No bruising or erythema. Neurological: General: No focal deficit present. Mental Status: She is alert and oriented to person, place, and time. Mental status is at baseline. Psychiatric: Behavior: Behavior normal. Intake/Output Summary (Last 24 hours) at 05/04/2021 1246 Last data filed at 05/04/2021 0600 Gross per 24 hour Intake 675 ml Output 1350 ml Net -675 ml Lines/Drains/Tubes: Patient Lines/Drains/Airways Status Active Airway None Output by Drain (mL) 05/02/21 0700 - 05/02/21 1859 05/02/21 1900 - 05/03/21 0659 05/03/21 0700 - 05/03/21 1859 05/03/21 1900 - 05/04/21 0659 05/04/21 0700 - 05/04/21 1246 Patient has no LDAs of requested type attached. Labs in last 18 hours: CBC WBC ?? Hb ?? Plt ?? Hct ?? ANC ?? INR ??, PTT ??, Anti-Xa ?? MCV ?? BMP Na ?? Cl ?? BUN ?? Glu ?? K ?? Co2 ?? Cr ?? Ca ?? iCa ?? Mg ??, Phos ?? Lactate ?? LFT AST 21 AlkPhos ?? T Prot ?? ALK 57 (H) Bili ?? Alb ?? D.Bili ?? Lab Trends: H/H Results from last 7 days Lab Units 05/02/21 0359 05/01/21 0221 04/30/21 1420 HEMOGLOBIN g/dL 10.1* 12.1 13.5 HEMATOCRIT % 31.5* 37.9 40.3 INR Results from last 7 days Lab Units 05/01/21 0221 04/30/21 1419 INR 1.0 1.0 Cr Results from last 7 days Lab Units 05/02/21 0359 05/01/21 0221 04/30/21 1419 CREATININE mg/dL 0.81 0.85 0.87 Medications reviewed. Vital signs reviewed. Labs reviewed. Radiography reviewed. Assessment and Plan: Medical Problems Problem List * (Principal) Closed fracture of left distal femur (CMS/HCC) Overview Addendum 05/02/2021 7:08 AM by Gabby Pratt APRN Ortho following ORIF of left femur fracture on 05/01 WBAT LLE Follow up with Dr. Flynn 05/17/21 Fall Overview Addendum 05/02/2021 7:08 AM by Gabby Pratt APRN Admit to trauma floor Multimodal pain control Diabetes (CMS/HCC) Overview Addendum 05/02/2021 7:09 AM by Gabby Pratt APRN Sliding-scale insulin CC2 diet Monitor FS Elevated LFTs Overview Addendum 05/04/2021 12:44 PM by Gabby Pratt APRN Stable abdominal exam Labs down trending HTN (hypertension) Overview Signed 05/01/2021 8:12 AM by Ava Joseph APRN Restart home meds as appropriate Obesity Overview Signed 05/01/2021 8:12 AM by Ava Joseph APRN Could complicate care Fibromyalgia Overview Signed 05/01/2021 8:13 AM by Ava Joseph APRN could complicate care Present on Admission: ??? Closed fracture of left distal femur (CMS/HCC) ??? Fall ??? Diabetes (CMS/HCC) ??? Elevated LFTs ??? (Resolved) Lactic acidosis ??? HTN (hypertension) ??? Obesity ??? Fibromyalgia Plan: - encourage IS - multimodal pain control - encourage mobility with nursing - increase bowel reg - no need for AM labs - UA pending Dispo: [place] Edited by: Gabby Pratt APRN at 05/04/2021 1245 Gabby Pratt APRN * Progress Notes - Hoa Duncan, OT - 05/04/2021 10:23 AM EST Occupational Therapy Treatment Patient Name: Ambika Pratt Today's Date: 05/04/2021 OT Discharge Recommendations: Acute rehab Equipment Recommended: Defer to facility Subjective Pt reports being compliant with there ex between treatment sessions. Participants in Care Family/Caregiver Present: No Wrapper Leaf Inspector: Not Applicable Presentation Oxygen Therapy: None (Room air) Lines and Tubes: Intravenous access Pre-Session: Supine,Head of bed elevated Post-Session: Sitting in chair,Call light in reach,RN notified,Lines intact,Chair alarm Post-Session Comments: No chair alarm box in room; RN notified. Precautions Left Lower Extremity Weight Bearing Status: Protected weight-bearing as tolerated?? Medical Precautions: Keep HOB > 30 degrees; okay to Reverse Trendelenberg Objective Pain Pain Assessment Pain Score: 4 (RN notified and pt left positioned for improved comfort and pressure relief.) Pain Type: Acute pain Pain Location: Leg,Shoulder Pain Orientation: Left,Right Pain Descriptors: Aching Pain Onset: Ongoing Pain Management Interventions: position adjusted Delirium Screening [place] Agitation Sedation Scale (RASS): Alert and calm Confusion Assessment Method-ICU (CAM-ICU/PCAM-ICU) Feature 3: Altered Level of Consciousness: Negative Cognition Cognition Overall Cognitive Status: Within Functional Limits Arousal/Alertness: Appropriate responses to stimuli Mood/Behavior: Alert Orientation Level: Oriented X4 Single Step Commands: 100% of the time,Consistently Multi-Step Commands: Consistently,100% of the time Method of Communication: Verbal Safety Judgment: Good awareness of safety precautions Awareness of Errors: Good awareness of errors made Deficit Awareness: Fully aware of deficits Attention Span: Appears intact Bed Mobility Bed Mobility Interventions: Pt performed bed mobility from a flat surface to simulate home environment. Provided pt with verbal cues for technique and improved (I). Instructed pt to hook right foot behind her left LE for improved (I) during transfer to edge of bed. Pt verbalized understanding and returned demonstration requirining no more than CGA with increased time for transfer. Bed Mobility Exam: Rolling/Turning Level of [place]: Contact guard Physical/Nonphysical Assist: Set-up required Assistive Device: Bed rails Bed Mobility Exam: Scooting/Bridging Level of [place]: Contact guard (in sitting to edge of bed) Physical/Nonphysical Assist: Set-up required,Verbal Cues Assistive Device: Bed rails Bed Mobility Exam: Supine to Sit Level of [place]: Contact guard Physical/Nonphysical Assist: Set-up required,Verbal Cues,Moderate cues Assistive Device: Bed rails Bed Mobility Exam: Sit to Supine Level of [place]: (Pt left seated in bedside chair.) Transfers Transfer Exam: Sit to stand Level of [place]: Contact guard Physical/Nonphysical Assist: Set-up required,Verbal Cues,Minimal cues Assistive Device: Walker, rolling Transfer Exam: Stand to Sit Level of [place]: Contact guard Physical/Nonphysical Assist: Set-up required,Verbal Cues,Minimal cues Assistive Device: Walker, rolling Transfer Exam: Bed to Chair/Chair to Bed Level of [place]: Contact guard Physical/Nonphysical Assist: Set-up required,Verbal Cues Type of Transfer: Sidesteps Assistive Device: Walker, rolling Functional Mobility Device: Rolling walker Apparatus: None Assistance: Contact guard assist Distance : 25 feet Ambulation Comments: Pt completed environmental navigation activity to increase functional endurance, improve mobility and safety in prep for ADL/IADL performance. Pt demonstrated impaired endurance with notable increased working of breath and requirement of frequent standing rest breaks. She required close CGAx1 for line management and safety. Patient presents with mild LOB towards left requiring Min A to correct. Pt unable to achieved a household distance this date. Self-Care Interventions Lower Extremity Dressing Sock Level of Assistance: Moderate assistance,Setup LE Dressing Where Assessed: Bed level LE Dressing Interventions: Pt donned right sock (I) supine in bed. She required max A to don sock on left foot. Therapeutic Exercise Seated edge of bed, instructed pt via verbal instruction and demonstration on left LE ther ex in prep for functional mobility and improved flexibility for improved (I) during lower body dressing. Educated pt heel slides, hip flexion, and hip adduction with a pillow for increased resistance. Pt completed each exercise x10 reps requiring cues for technique and increased time due to pain. Pt demonstrates hip flexion AROM grossly 0-110 degrees, knee 0-100. Self-Care CARE Tool Performance SELF-CARE ITEMS CARE SCORE Eating 5 Oral Hygiene 10 Toileting Hygiene 10 Shower/Bathe Self 10 Upper Body Dressing 3 Lower Body Dressing 10 Putting On / Taking Off Footwear 3 CARE Tool Performance Score Gottlieb Score Assist Level Description 6 Independent Patient completes the activity by him/herself with no assistance from a helper. 5 Set-up or Clean-up Assistance [place] sets up or cleans up; patient completes activity. [place] assists only prior to or following the activity. 4 Supervision or touching assistance [place] provides verbal cues and/or touching/steadying and/or contact guard assistance as patient completes activity. Assistance may be provided throughout the activity or intermittently. 3 Partial/Moderate Assistance [place] does LESS THAN HALF the effort. [place] lifts, holds or supports trunk or limbs, but provides less than half the effort. 2 Substantial/Maximal Assistance [place] does MORE THAN HALF the effort. [place] lifts or holds trunkor limbs and provides more than half the effort. 1 Dependent [place] does ALL of the effort. Patient does none of the effort to complete the activity. Or, the assistance of 2 or more helpers is required for the patient to complete the activity. Activity Not Attempted Values 7 Patient refused. 9 Not applicable - Not attempted and the patient did not perform this activity prior to the currentillness, exacerbation, or injury. 10 Not attempted due to environmental limitations (e.g., lack of equipment, weather constraints) 88 Not attempted due to medical condition or safety concerns Assessment Pt presents with good effort and motivation for recovery however demonstrates limited functional endurance requiring increased time, varied levels of assist and frequent rest breaks to complete tasks. From a functional stand point, pt presents as most appropriate for Acute rehab upon discharge. Will change discharge recommendations and continue to progress OT plan of care as indicated. OT Recommendations Discharge Destination: Acute rehab Discharge Equipment: Defer to facility Plan Progress functional endurance, mobility, transfers, and (I) during ADL performance. OT Goals OT GOAL DETAILS Goal Established Date Time Frame Goal Status OT Goal 1: Pt will be (I) with all bed mobility transfers. 05/02/21 2 weeks OT Goal 2: Pt will transfer from bed <> bedside chair/BSC/wheelchair with SBA; AE PRN 05/02/21 2 weeks OT Goal 3: Pt will be (I) with lower body dressing; AE PRN 05/02/21 2 weeks OT Goal 4: Pt will be (I) with all toileting tasks; AE PRN 05/02/21 2 weeks * Care Plan - Aubree Shaquille - 05/04/2021 1:19 AM EST Problem: Adult Inpatient Plan of Care Goal: Plan of Care Review Outcome: Ongoing, Progressing Goal: Absence of Hospital-Acquired Illness or Injury Outcome: Ongoing, Progressing Goal: Optimal Comfort and Wellbeing Outcome: Ongoing, Progressing Goal: Readiness for Transition of Care Outcome: Ongoing, Progressing Problem: Mobility Impairment Goal: Optimal Mobility Outcome: Ongoing, Progressing * Progress Notes - Karma Gamez - 05/03/2021 2:20 PM EST Case Management Adult Progress Note Ambika Pratt 55 y.o. female CSN: [id number] Admission: 04/30/2021 12:34 PM Primary Problem: Closed fracture of left distal femur (CMS/HCC) Anticipated Discharge Date: tbd Has Discharge Plans Changed? No Additional Comments Per primary treatment team, patient is medically ready for discharge on this date. PT re-evaluated on this date due to concerns of discharge home. Recs changed to acute rehab. SW sent referrals to [facility] and the [facility] on this date. SW will continue to follow and assist. JOSE Castillo, PERINATAL INSTRUCTOR Trauma/EGS Rn Bone Marrow Transplant [phone] * Progress Notes - Gabby Pratt APRN - 05/03/2021 12:11 PM EST 05/03/21 Ambika Pratt HPI 55 yr old female admitted due to fall on 04/30. Past 24 hrs: Ms. Aponte is awake and in the bed this morning on rounds. VSS. ORA. Patient denies n/v, shortness of breath, difficulty breathing, chest pain, weakness or paresthesia. Patient was notified of being ready for discharge with home assist. Patient was very unhappy with this decision and states that she cant go home because she lives with 3 other people and 3 dogs who are untrained and will jump on her. Patient was notified of the recommendations provided per PT. He family was called and updated onthe situation, they too were worried about her being discharged home. PT was consulted to re-evaluate patient. Waiting for their note for further plan. Patient is tolerating po intake. Voiding spontaneously. Last BM prior to admission. Patient and nurse report no other concerns at this time Edited by: Gabby Pratt APRN at 05/03/2021 1210 A 14 point review of systems was reviewed and is negative except as mentioned in the HPI. Vital signs: Vitals: 05/03/21 1128 BP: 107/72 Pulse: 86 Resp: 16 Temp: SpO2: 94% Physical Exam Vitals and nursing note reviewed. Constitutional: General: She is not in acute distress. Appearance: Normal appearance. She is obese. She is not ill-appearing, toxic- appearing or diaphoretic. HENT: Head: Normocephalic. Nose: Nose normal. No congestion or rhinorrhea. Mouth/Throat: Mouth: Mucous membranes are moist. Pharynx: No oropharyngeal exudate or posterior oropharyngeal erythema. Eyes: General: Right eye: No discharge. Left eye: No discharge. Pupils: Pupils are equal, round, and reactive to light. Cardiovascular: Heart sounds: No murmur heard. No friction rub. Pulmonary: Effort: Pulmonary effort is normal. No respiratory distress. Breath sounds: No stridor. No wheezing, rhonchi or rales. Chest: Chest wall: No tenderness. Abdominal: General: There is no distension. Tenderness: There is no abdominal tenderness. There is no guarding or rebound. Musculoskeletal: General: Signs of injury (LLE) present. No swelling, tenderness or deformity. Normal range of motion. Cervical back: Normal range of motion. No rigidity or tenderness. Skin: General: Skin is warm. Coloration: Skin is not jaundiced or pale. Findings: No bruising or erythema. Neurological: General: No focal deficit present. Mental Status: She is alert and oriented to person, place, and time. Mental status is at baseline. Psychiatric: Behavior: Behavior normal. Comments: tearful Intake/Output Summary (Last 24 hours) at 05/03/2021 1211 Last data filed at 05/03/2021 0600 Gross per 24 hour Intake -- Output 700 ml Net -700 ml Lines/Drains/Tubes: Patient Lines/Drains/Airways Status Active Airway None Output by Drain (mL) 05/01/21 0700 - 05/01/21 1859 05/01/21 1900 - 05/02/21 0659 05/02/21 0700 - 05/02/21 1859 05/02/21 1900 - 05/03/21 0659 05/03/21 0700 - 05/03/21 1211 Patient has no LDAs of requested type attached. Labs in last 18 hours: CBC WBC ?? Hb ?? Plt ?? Hct ?? ANC ?? INR ??, PTT ??, Anti-Xa ?? MCV ?? BMP Na ?? Cl ?? BUN ?? Glu ?? K ?? Co2 ?? Cr ?? Ca ?? iCa ?? Mg ??, Phos ?? Lactate ?? LFT AST ?? AlkPhos ?? T Prot ?? ALK ?? Bili ?? Alb ?? D.Bili ?? Lab Trends: H/H Results from last 7 days Lab Units 05/02/21 0359 05/01/21 02204/30/21 1420 HEMOGLOBIN g/dL 10.1* 12.1 13.5 HEMATOCRIT % 31.5* 37.9 40.3 INR Results from last 7 days Lab Units 05/01/21 0221 04/30/21 1419 INR 1.0 1.0 Cr Results from last 7 days Lab Units 05/02/21 0359 05/01/2122004/30/21 1419 CREATININE mg/dL 0.81 0.85 0.87 Medications reviewed. Vital signs reviewed. Labs reviewed. Radiography reviewed. Assessment and Plan: Medical Problems Problem List * (Principal) Closed fracture of left distal femur (CMS/HCC) Overview Addendum 05/02/2021 7:08 AM by Gabby Pratt APRN Ortho following ORIF of left femur fracture on 05/01 WBAT LLE Follow up with Dr. Flynn 05/17/21 Fall Overview Addendum 05/02/2021 7:08 AM by Gabby Pratt APRN Admit to trauma floor Multimodal pain control Diabetes (CMS/HCC) Overview Addendum 05/02/2021 7:09 AM by Gabby Pratt APRN Sliding-scale insulin CC2 diet Monitor FS Elevated LFTs Overview Addendum 05/02/2021 7:09 AM by Gabby Pratt APRN Stable abdominal exam Monitor labs HTN (hypertension) Overview Signed 05/01/2021 8:12 AM by Ava Joseph APRN Restart home meds as appropriate Obesity Overview Signed 05/01/2021 8:12 AM by Ava Joseph APRN Could complicate care Fibromyalgia Overview Signed 05/01/2021 8:13 AM by Ava Joseph APRN could complicate care Present on Admission: ??? Closed fracture of left distal femur (CMS/HCC) ??? Fall ??? Diabetes (CMS/HCC) ??? Elevated LFTs ??? (Resolved) Lactic acidosis ??? HTN (hypertension) ??? Obesity ??? Fibromyalgia Plan: - pt/ot re-evaluation pending - encourage IS - multimodal pain control - discharge home today Dispo: home with assist Edited by: Gabby Pratt APRN at 05/03/2021 1210 Gabby Pratt APRN * Progress Notes - Aurora Ryan, MACHINE ENGINEER - 05/03/2021 11:03 AM EST Physical Therapy Treatment Patient Name: Ambika Pratt Today's Date: 05/03/2021 PT Discharge Recommendations: Acute rehab Equipment Recommended: Defer to facility Subjective Pt agreed to session. She states she is very concerned about returning home. She states she is ableto stay at her father's home but he will be working during the day and will be without assistance. Participants in Care Family/Caregiver Present: No Presentation Oxygen Therapy: None (Room air) Lines and Tubes: Intravenous access Pre-Session: Supine,Head of bed elevated Post-Session: Sitting in chair,Call light in reach,RN notified,Lines intact,Chair alarm Post-Session Comments: No chair alarm box in room; RN notified. Precautions Left Lower Extremity Weight Bearing Status: Protected weight-bearing as tolerated?? Medical Precautions: Keep HOB > 30 degrees; okay to Reverse Trendelenberg Objective Pain Pain Assessment Pain Assessment: 0-10 Pain Score: 6 (8/10 while ambulating) Pain Location: Leg Pain Orientation: Left Pain Management Interventions: rest Delirium Screening [place] Agitation Sedation Scale (RASS): Alert and calm Confusion Assessment Method-ICU (CAM-ICU/PCAM-ICU) Feature 3: Altered Level of Consciousness: Negative Bed Mobility Bed Mobility Exam: Scooting/Bridging Level of [place]: Minimum assist (75% patient's effort) Physical/Nonphysical Assist: Set-up required,Verbal Cues Assistive Device: Bed rails Bed Mobility Exam: Supine to Sit Level of [place]: Minimum assist (75% patient's effort) Physical/Nonphysical Assist: Moderate cues (HOB flat) Assistive Device: Bed rails Transfers Transfer Exam: Sit to stand Level of [place]: Minimum assist (75% patient's effort) Physical/Nonphysical Assist: Set-up required,Verbal Cues,Moderate cues Assistive Device: Walker, rolling Transfer Exam: Stand to Sit Level of [place]: Contact guard Physical/Nonphysical Assist: Set-up required,Verbal Cues,Minimal cues Assistive Device: Walker, rolling Toilet Transfer Level of [place]: Minimum assist (75% patient's effort) Physical/Nonphysical Assist: Minimal cues Assistive Device: Walker, rolling Therapeutic Activity (14 minutes) Pt participated in therapeutic activity with focus on functional mobility and transfer training. Ptparticipated in bed mobility and STS transfers x 3. Gait Training (15 minutes) Device: Rolling walker Apparatus: Chair follow Assistance: Contact guard assist,Minimal verbal cues Distance: 10 feet x 2 trials with seated rest break required due to elevated pain and fatigue. Gait Analysis: Step to gait pattern with decreased step length and decreased foot clearance, increased antalgia noted. Gait Training Interventions: Pt required verbal cues and physical demonstration for sequencing and technique. Therapeutic Exercise (10 minutes) Pt participated in LE TE including ankle pumps, quad set, glut set, LAQ, SAQ and hip ABD/ADD x 10 repetitions. Assessment Pt responded well to session with limitations due to pain and weakness. Pt required increased rest breaks between activities and gait training this date. Pt with slower progress than expected and would benefit from discharge to acute rehabilitation prior to returning home. PT Recommendations Discharge Destination: Acute rehab Discharge Equipment: Defer to facility Plan Continue per PT POC with focus on functional mobility , strengthening , transfer training, balance training and gait training. PT Goals PT GOAL DETAILS Goal Established Date Time Frame Goal Status PT Goal 1: Patient will transfer supine to sit with modified independence from flat surface in preparation to discharge home. 05/02/21 2 weeks PT Goal 2: Patient will ambulate 100 feet with least restrictive device with modified independence to reduce risk of falls. 05/02/21 2 weeks PT Goal 3: Patient will be independent with HEP to improve strength and ROM to improve functional mobility. 05/02/21 2 weeks PT Goal 4: Patient will stand from varying heights with modified independence to improve safety within the home. 05/02/21 2 weeks Written by Aurora Ryan PTA on 05/03/21 at 12:52 PM. Cosigned by Jacque Le PT at 05/03/2021 3:47 PM EST Associated attestation - Jacque Le - 05/03/2021 3:47 PM EST Agree with changes made to the discharge recommendations. Thanks. Jacque Le PT * Nursing Note - Markie Cooley, RN - 05/03/2021 10:20 AM EST Orthopedic Transition Nurse Note General: Spoke with: Patient, Bedside RN and Primary Team Assessment and Interventions: Assessed: Dressing Dressing Interventions: CDI Wound 04/30/21 Other (comment) Abdomen Lower (Active) Wound Assessment Red 05/03/21 08 Nia-Wound Assessment Clean;Red 05/03/21799 Treatments Pharmaceutical agent 05/03/21799 Dressing Protective barrier 05/03/21799 Dressing Status Clean;Dry;Intact 05/03/21799 Wound 05/01/21 Leg Anterior;Left;Upper (Active) Wound Assessment Unable to assess 05/03/21799 Nia-Wound Assessment Red;Ecchymotic;Erythematous;Hyperpigmented;Mccord;Dry 05/03/21799 Drainage Amount None 05/03/21 08 Treatments Site care 05/03/21 08 Dressing Dry dressing 05/03/21799 Dressing Changed Reinforced 05/03/21799 Dressing Status Dressing Changed;Other (Comment);Clean;Dry 05/03/21 08 Education: Education provided on: Dressing, Signs and symptoms of infection, Weight bearing mobility, Pain protocol/management and Ortho trauma booklet given Plan of Care: Follow up with Dr. Flynn on 05/17/2021 at 0810. Op-Plan: Completed Contact Card Given: yes Comments: PT/OT recs changed to acute rehab. Awaiting placement. LLE: If bandage becomes wet, soiled, or falls off it may be replaced with a clean dry gauze dressing as needed. For medical questions or concerns after discharge, please contact the Orthopedic Transition Nurse at [phone] Sunday through Sunday 8:00 am to 2:30 pm. If you feel your concern is a medical emergency please call 911 immediately. Based upon recent changes to [place] law related to prescribing opioid pain medications, our providers will not provide more than a 14 day supply of controlled medications following a major surgery or trauma from the date of your injury or hospital discharge. [place], [place], & 201 [place] 9:260. * Discharge Instr - Other Orders - Markie Cooley RN - 05/03/2021 8:58 AM EST Do not take out stitches or madeleine. Leave the bandage on. If left leg bandage becomes wet, soiled, or falls off it may be replaced with a clean dry gauze dressing as needed. Shower at any time. Avoid soaking your wound. * Discharge Instr - Activity - Markie Cooley RN - 05/03/2021 8:57 AM EST Move around as you are able. Do not drive while taking narcotic medications. Use assistive equipment as instructed. Protected weight bearing through left leg. * Discharge Instr - AVS First Page - Markie Cooley RN - 05/03/2021 8:57 AM EST Reasons to call: Feels warm or hot to the touch Is red or dark pink Is tight or swollen and looks shiny Becomes more tender or sore to the touch Wound smells bad Wound is draining pus, bleeding or coming open Temperature is above 101.5 F Pain is not relieved by medications * Care Plan - Dahlia Velasco RN - 05/03/2021 7:53 AM EST Problem: Adult Inpatient Plan of Care Goal: Patient-Specific Goal (Individualized) Outcome: Ongoing, Progressing * Progress Notes - Travis Neumann MD - 05/03/2021 6:49 AM EST ORTHOPAEDIC SURGERY PROGRESS NOTE SUBJECTIVE No acute events overnight. POD#2 from IMN left periprosthetic distal femoral shaft fracture. Doing well. Received home with assist recommendations per PT/OT, however, patient expresses concern this morning regarding her ability to take care of herself at home. OBJECTIVE PHYSICAL EXAMINATION No acute distress Non labored breathing Peripheral perfusion intact FOCUSED MUSCULOSKELETAL EXAM Left lower extremity Inspection: Dressings in place, clean dry and intact Motor Exam: Fires TA, GSC, EHL, FHL Sensory Exam: SILT DP, SP, PT, Crawford, and Sa nerve distributions Vascular Exam: Palpable DP pulse, Cap refill <2 seconds, Toes WWP Compartment soft and compressible No pain with passive stretch of the toes DATA Labs in last 18 hours CBC WBC ?? Hb ?? Plt ?? Hct ?? INR ??, PTT ??, Anti-Xa ?? BMP Na ?? Cl ?? BUN ?? Glu ?? K ?? Co2 ?? Cr ?? Lactate ?? ASSESSMENT AND PLAN Ambika Pratt is a 55 y.o. female patient status post: 1. IMN left periprosthetic distal femoral shaft fracture (05/01/21) Tertiary orthopaedic trauma examination this morning reveals no concern for other injuries at this time, no additional imaging necessary at this time Weight-bearing restrictions: Protected WBAT LLE DVT prophylaxis Pain control Nutritional optimization Bowel regimen PT/OT recommendations: Home with assist Follow up: Dr. Bebeto Flynn, Orthopaedic Joint Reconstruction Surgery 05/17/21 Disposition: Per primary, ok for discharge from orthopaedic standpoint Travis Neumann MD PGY-3, Orthopaedic Surgery [facility] Orthopaedic Trauma Service Pager: [phone] Orthopaedic Recon/Spine/Foot and Ankle Service Pager: [phone] Personal Pager: [phone] Cosigned by Vadim Molina MD at 05/06/2021 1:15 PM EST Associated attestation - Vadim Molina MD - 05/06/2021 1:15 PM EST Signature Only * Care Plan - Aubree Shaquille - 05/03/2021 2:37 AM EST Problem: Adult Inpatient Plan of Care Goal: Plan of Care Review Outcome: Ongoing, Progressing Goal: Patient-Specific Goal (Individualized) Outcome: Ongoing, Progressing Goal: Absence of Hospital-Acquired Illness or Injury Outcome: Ongoing, Progressing Goal: Optimal Comfort and Wellbeing Outcome: Ongoing, Progressing Goal: Readiness for Transition of Care Outcome: Ongoing, Progressing Problem: Mobility Impairment Goal: Optimal Mobility Outcome: Ongoing, Progressing * Progress Notes - Gabby Pratt APRN - 05/02/2021 12:25 PM EST 05/02/21 Ambika Pratt HPI 55 yr old female admitted due to fall on 04/30. Past 24 hrs: Ms. Pratt is awake and in bed this morning on rounds. VSS. ORA. Patient denies n/v, shortness of breath, difficulty breathing, or chest pain, weakness or paresthesia. She is tolerating po intake. Removing bowman this morning. No BM this admission. Patient and nurse have no other concerns at this time. Edited by: Gabby Pratt APRN at 05/02/2021 1225 A 14 point review of systems was reviewed and is negative except as mentioned in the HPI. Vital signs: Vitals: 05/02/21 1130 BP: 108/75 Pulse: 69 Resp: 16 Temp: 36.9 ??C (98.4 ??F) SpO2: 96% Physical Exam Vitals and nursing note reviewed. Constitutional: General: She is not in acute distress. Appearance: Normal appearance. She is obese. She is not ill-appearing, toxic- appearing or diaphoretic. HENT: Head: Normocephalic. Nose: Nose normal. No congestion or rhinorrhea. Mouth/Throat: Mouth: Mucous membranes are moist. Pharynx: No oropharyngeal exudate or posterior oropharyngeal erythema. Eyes: General: Right eye: No discharge. Left eye: No discharge. Pupils: Pupils are equal, round, and reactive to light. Cardiovascular: Rate and Rhythm: Normal rate and regular rhythm. Pulses: Normal pulses. Heart sounds: Normal heart sounds. No murmur heard. No friction rub. Pulmonary: Effort: Pulmonary effort is normal. No respiratory distress. Breath sounds: Normal breath sounds. No stridor. No wheezing, rhonchi or rales. Chest: Chest wall: No tenderness. Abdominal: General: Bowel sounds are normal. There is no distension. Palpations: Abdomen is soft. Tenderness: There is no abdominal tenderness. There is no guarding or rebound. Musculoskeletal: General: Signs of injury (LLE) present. No swelling, tenderness or deformity. Normal range of motion. Cervical back: Normal range of motion. No rigidity or tenderness. Skin: General: Skin is warm. Coloration: Skin is not jaundiced or pale. Findings: No bruising or erythema. Neurological: General: No focal deficit present. Mental Status: She is alert and oriented to person, place, and time. Mental status is at baseline. Psychiatric: Mood and Affect: Mood normal. Behavior: Behavior normal. Intake/Output Summary (Last 24 hours) at 05/02/2021 1225 Last data filed at 05/02/2021 0900 Gross per 24 hour Intake 1709 ml Output 2700 ml Net -991 ml Lines/Drains/Tubes: Patient Lines/Drains/Airways Status Active Airway None Output by Drain (mL) 04/30/21 0700 - 04/30/21 1859 04/30/21 1900 - 05/01/21 0659 05/01/21 0700 - 05/01/21 1859 05/01/21 1900 - 05/02/21 0659 05/02/21 0700 - 05/02/21 1225 Patient has no LDAs of requested type attached. Labs in last 18 hours: CBC WBC 9.98 Hb 10.1 (L) Plt 243 Hct 31.5 (L) ANC ?? INR ??, PTT ??, Anti-Xa ?? MCV 97 BMP Na 139 Cl 103 BUN 13 Glu 130 (H) K 4.3 Co2 27 Cr 0.81 Ca 8.7 (L) iCa ?? Mg ??, Phos ?? Lactate ?? LFT AST ?? AlkPhos ?? T Prot ?? ALK ?? Bili ?? Alb ?? D.Bili ?? Lab Trends: H/H Results from last 7 days Lab Units 05/02/21 0359 05/01/21 02204/30/21 1420 HEMOGLOBIN g/dL 10.1* 12.1 13.5 HEMATOCRIT % 31.5* 37.9 40.3 INR Results from last 7 days Lab Units 05/01/21 02204/30/21 1419 INR 1.0 1.0 Cr Results from last 7 days Lab Units 05/02/21 0359 05/01/2122004/30/21 1419 CREATININE mg/dL 0.81 0.85 0.87 Medications reviewed. Vital signs reviewed. Labs reviewed. Radiography reviewed. Assessment and Plan: Medical Problems Problem List * (Principal) Closed fracture of left distal femur (CMS/HCC) Overview Addendum 05/02/2021 7:08 AM by Gabby Pratt APRN Ortho following ORIF of left femur fracture on 05/01 WBAT LLE Follow up with Dr. Flynn 05/17/21 Fall Overview Addendum 05/02/2021 7:08 AM by Gabby Pratt APRN Admit to trauma floor Multimodal pain control Diabetes (CMS/HCC) Overview Addendum 05/02/2021 7:09 AM by Gabby Pratt APRN Sliding-scale insulin CC2 diet Monitor FS Elevated LFTs Overview Addendum 05/02/2021 7:09 AM by Gabby Pratt APRN Stable abdominal exam Monitor labs HTN (hypertension) Overview Signed 05/01/2021 8:12 AM by Ava Joseph APRN Restart home meds as appropriate Obesity Overview Signed 05/01/2021 8:12 AM by Ava Joseph APRN Could complicate care Fibromyalgia Overview Signed 05/01/2021 8:13 AM by Ava Joseph APRN could complicate care Present on Admission: ??? Closed fracture of left distal femur (CMS/HCC) ??? Fall ??? Diabetes (CMS/HCC) ??? Elevated LFTs ??? (Resolved) Lactic acidosis ??? HTN (hypertension) ??? Obesity ??? Fibromyalgia Plan: - pt/ot pending - encourage IS - possible transfer to ortho - multimodal pain control - remove bowman - start DVT ppx Dispo: PT/OT after surgery Edited by: Gabby Pratt APRN at 05/02/2021 1225 Gabby Pratt APRN * Progress Notes - Karma Gamez - 05/02/2021 10:18 AM EST Case Management Adult Initial Progress Note Ambika Aguilar Fadi Terence 55 y.o. female CSN: [id number] Admission: 04/30/2021 12:34 PM Primary Problem: Closed fracture of left distal femur (CMS/HCC) End Polisher reviewed chart and spoke with patient to complete this Initial Case Management Assessment. PCP: Salima Gonzáles DO Emergency Contact: Extended Emergency Contact Information Primary Emergency Contact: Ambreen De Anda Mobile Relation: Daughter Preferred language: [place] Islander Wrapper Leaf Inspector needed? No Insurance: Primary Visit Coverage Payer Plan Sponsor Code Group Number Group Name [employer]M [employer]IOR [employer] [id number] Primary Visit Coverage Subscriber Subscriber ID Subscriber Name Subscriber N Subscriber Address [id number] AMBIKA PIERRE [id number] [place] [id number] Patient information: Patient is a 55 y.o. female admitted due to a fall from standing after tripping over her grandson'stoys. Injuries include closed fracture of left distal femur. Daily Living Activities: [address] [place] [address] Anticipated Discharge Date: tbd Assistance Available at Discharge: One of her two daughters or her father Discharge Transport: Family will provide Follow Up Transport: Family will provide Home Health / Home Infusion / Outpatient Dialysis Services: None reported. DME: None reported Additional Comments: SW met with patient at bedside to introduce self and explain role. Demographics verified. Address corrected in the chart. Pending PT/OT recs, but patient is agreeable to rehab if recs are made. Would prefer to be referred to [facility] or [place]. SW will continue to follow and assist. Karma Gamez MSW, PERINATAL INSTRUCTOR Trauma/EGS Rn Bone Marrow Transplant [phone] * Progress Notes - Vianca Ma, PT - 05/02/2021 10:14 AM EST Physical Therapy Evaluation Patient Name: Ambika Pratt Today's Date: 05/02/2021 PT Discharge Recommendations: Home with assistance Equipment Recommended: Rolling walker,Bedside commode History Ambika Pratt is 55 y.o. y/o female admitted 04/30/2021 for work-up of Closed fracture of left distal femur (CMS/HCC) s/p fall over her grandchildren's toys Problem List Active Hospital Problems Diagnosis Date Noted ??? HTN (hypertension) 05/01/2021 ??? Obesity 05/01/2021 ??? Fibromyalgia 05/01/2021 ??? Closed fracture of left distal femur (CMS/HCC) 04/30/2021 ??? Fall 04/30/2021 ??? Diabetes (CMS/HCC) 04/30/2021 ??? Elevated LFTs 04/30/2021 Procedures 05/01/2021 Procedure(s): INSERTION, INTRAMEDULLARY JESSE, FEMUR [place] Periprosthetic Retrograde Femur Nail Past Medical History Patient has a past medical history of COPD (chronic obstructive pulmonary disease) (CMS/HCC), Diabetes mellitus (CMS/HCC), Hypertensive heart disease without congestive heart failure, and Lactic acidosis (04/30/2021). psoriatic arthritis, fibromyalgia, asthma, hypothyroidism, obesity Past Surgical History Left knee meniscus repair x2, Bilateral total knee replacements (left 2013, right 2015), Lithotripsy approx 10 days ago, Heel spur removal x2, x2, Hysterectomy, Cholecystectomy Precautions Left Lower Extremity Weight Bearing Status: Protected weight-bearing as tolerated?? Medical Precautions: Keep HOB > 30 degrees; okay to Reverse Trendelenberg Subjective Patient expressed fear initially but stated, I will do whatever you tell me to do so I can get better Participants in Care Family/Caregiver Present: No Presentation Oxygen Therapy: None (Room air) Lines and Tubes: Intravenous access Pre-Session: Supine Post-Session: Sitting in chair,Call light in reach,RN notified,Lines intact Post-Session Comments: No chair alarm box in room; RN notified. Home Living/Set-up Lives With: Daughter,Adult Home Type: House Home Layout: One level,Stairs to enter without rails Number of Stairs: 2 Bathroom: Tub/Shower: Tub/Shower combo (not large enough for shower chair or tub bench) Bathroom: Accessibility: Not accessible Home Living Comments: live in [place]; works as a [employer]; patient's daughter and her two grandchildren live with her currently in a 1-bedroom home so she has been sleeping on the couch or inthe recliner chair. [place]illy tstates that she can stay with her father temporarily in single-level home with ramp to enter with walk-in shower with seat. Prior Level of Function Receives Help From: No assist required prior to admission Level of Mobility: Ambulatory- community Mobility [place]: Independent gait without device History of Falls: No (not prior to this incident) ADL Performance: Independent Patient/Family Goals Patient wants to be able to discharge to her own home. Objective Pain Pain Assessment Pain Assessment: 0-10 Pain Score: 6 Pain Location: Knee Pain Orientation: Left Delirium Screening [place] Agitation Sedation Scale (RASS): Alert and calm Confusion Assessment Method-ICU (CAM-ICU/PCAM-ICU) Feature 3: Altered Level of Consciousness: Negative Cognition Cognition Overall Cognitive Status: Within Functional Limits Arousal/Alertness: Appropriate responses to stimuli Mood/Behavior: Alert Orientation Level: Oriented X4 Single Step Commands: 100% of the time Multi-Step Commands: 100% of the time Method of Communication: Verbal Vision - Basic Assessment Current Vision: Intact Right Upper Extremity Examination RUE ROM Assessment RUE Assessment: Within Functional Limits Manual Muscle Testing - RUE: Within functional limits Sensation Light Touch: Right Upper Extremity: Intact Left Upper Extremity Examination LUE ROM Assessment LUE Assessment: Within Functional Limits Manual Muscle Testing - LUE: Within functional limits Sensation Light Touch: Left Upper Extremity: Intact Right Lower Extremity Examination RLE ROM Assessment RLE Assessment: Within Functional Limits Manual Muscle Testing - RLE: Within functional limits Sensation Light Touch: Right Lower Extremity: Intact Left Lower Extremity Examination LLE Assessment: Exceptions to WFL AROM LLE (degrees) L Knee Flexion 0-140: 30 Manual Muscle Testing: Within functional limits except Hip flexion: 2+ Knee Flexion: 2+ Knee Extension: 2+ Ankle Dorsiflexion: 3+ Bed Mobility Bed Mobility Exam: Supine to Sit Level of [place]: Minimum assist (75% patient's effort) Physical/Nonphysical Assist: HOB elevated Transfers Transfer Exam: Sit to stand Level of [place]: Contact guard Assistive Device: Walker, rolling Transfer Exam: Stand to Sit Level of [place]: Contact guard Assistive Device: Walker, rolling Demonstrated appropriate hand placement to safety transfer with RW. Balance Static Sitting Balance Static Sitting-Level of Assistance: Standby assist Dynamic Sitting Balance Level of Assistance: Standby assisst Static Standing Balance Static Standing-Level of Assistance: Contact guard Dynamic Standing Balance Dynamic Standing Level of Assistance: Contact guard Gait Training (15 minutes) Device: Rolling walker Assistance: Contact guard assist,Minimal verbal cues Distance: 7 feet Gait Analysis: step-to gait pattern with significantly decreased step length; increase use of upperbody during right swing phase Prior to initiating mobility therapist demonstrated appropriate gait technique and reviewed WB status. Patient required verbal cues for technique and for management of walker. Patient frequently asking which foot should I move next was instructed on upright posture. Standardized Assessments [facility] 6-Clicks Mobility Assessment Difficulty patient has turning over in bed (including adjusting bedclothes, sheets, and blankets)?:None Difficulty patient has sitting down on and standing up from a chair with arms (wheelchair, bedside commode, etc.)?: None Difficulty patient has moving from lying on back to sitting on the side of the bed?: A little How much help does the patient need moving to and from a bed to a chair (including a wheelchair)?: A little How much help does the patient need to walk in hospital room?: A little How much help does the patient need climbing 3-5 steps with a railing?: Unable [facility] 6-Clicks Mobility Assessment Total : 18 Assessment Patient was fearful but was eager to participate. Patient demonstrated fatigue with minimal gait and noted decrease in performance with increased distance. Impairments: Impaired gait dynamics/performance,Decreased range of motion,Pain,Decreased strength Activity Limitations: Inability to ambulate independently,Inability to transfer independently,Inability to complete ADLs independently Participation Restrictions: Self-care,Home management,Work,Community leisure Activity Tolerance: Tolerates 10-20 minutes of activity without rest Evaluation/Treatment Tolerance: Patient limited by pain Rehab Potential: Good, to achieve stated therapy goals Eval Complexity History Profile: 3 or more personal factors and/or comorbidities Clinical Presentation: Evolving clinical presentation with changing characteristics Clinical Decision Making: Moderate complexity PT Recommendations Discharge Destination: Home with assistance Discharge Equipment: Rolling walker,Bedside commode Plan Planned PT Interventions Bed mobility training,Gait training,Strengthening,Stretching,Transfer training,ROM PT Frequency 4 - 6 times per week PT Duration 2 weeks Goals PT GOAL DETAILS Time Frame PT Goal 1: Patient will transfer supine to sit with modified independence from flat surface in preparation to discharge home. 2 weeks PT Goal 2: Patient will ambulate 100 feet with least restrictive device with modified independence to reduce risk of falls. 2 weeks PT Goal 3: Patient will be independent with HEP to improve strength and ROM to improve functional mobility. 2 weeks PT Goal 4: Patient will stand from varying heights with modified independence to improve safety within the home. 2 weeks Written by Vianca Ma, PT on 05/02/21 at 2:31 PM. * Progress Notes - Hoa Duncan, OT - 05/02/2021 10:01 AM EST Occupational Therapy Evaluation Patient Name: Ambika Pratt Today's Date: 05/02/2021 OT Discharge Recommendations: Home with assistance Equipment Recommended: Rolling walker,Bedside commode History Ambika Pratt is 55 y.o. y/o female admitted 04/30/2021 for work-up of Closed fracture of left distal femur (CMS/HCC). Problem List Active Hospital Problems Diagnosis Date Noted ??? HTN (hypertension) 05/01/2021 ??? Obesity 05/01/2021 ??? Fibromyalgia 05/01/2021 ??? Closed fracture of left distal femur (CMS/HCC) 04/30/2021 ??? Fall 04/30/2021 ??? Diabetes (CMS/HCC) 04/30/2021 ??? Elevated LFTs 04/30/2021 Procedures 05/01/2021 Procedure(s): INSERTION, INTRAMEDULLARY JESSE, FEMUR [place] Periprosthetic Retrograde Femur Nail Past Medical History Patient has a past medical history of COPD (chronic obstructive pulmonary disease) ([facility]), Diabetes mellitus ([facility]), Hypertensive heart disease without congestive heart failure, and Lactic acidosis (04/30/2021). Past Surgical History Patient has no past surgical history on file. Precautions Left Lower Extremity Weight Bearing Status: Protected weight-bearing as tolerated?? Medical Precautions: Keep HOB > 30 degrees; okay to Reverse Trendelenberg Subjective Pt reports being unsure how things will work out in terms of mobility once she gets home. States she will have ample assist. Participants in Care Family/Caregiver Present: No Presentation Oxygen Therapy: None (Room air) Lines and Tubes: Intravenous access Pre-Session: Supine Post-Session: Sitting in chair,Call light in reach,RN notified,Lines intact Post-Session Comments: No chair alarm box in room; RN notified. 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 Patien tstates that she can stay with her father temporarily in single-level home with ramp to enter with walk-in shower with seat. Prior Level of Function Receives Help From: No assist required prior to admission Level of Mobility: Ambulatory- community Mobility [place]: Independent gait without device History of Falls: No (not prior to this incident) ADL Performance: Independent Patient/Family Goals Statement To discharge to her home and not her father's. Objective Pain Pain Assessment Pain Assessment: 0-10 Pain Score: 6 Pain Location: Knee Pain Orientation: Left Delirium Screening [place] Agitation Sedation Scale (RASS): Alert and calm Confusion Assessment Method-ICU (CAM-ICU/PCAM-ICU) Feature 3: Altered Level of Consciousness: Negative Cognition Cognition Overall Cognitive Status: Within Functional Limits Arousal/Alertness: Appropriate responses to stimuli Mood/Behavior: Alert Orientation Level: Oriented X4 Single Step Commands: 100% of the time Multi-Step Commands: 100% of the time Method of Communication: Verbal Vision - Basic Assessment Current Vision: Intact Right Upper Extremity Examination RUE ROM Assessment RUE Assessment: Within Functional Limits Manual Muscle Testing - RUE: Within functional limits Sensation Light Touch: Right Upper Extremity: Intact Left Upper Extremity Examination LUE ROM Assessment LUE Assessment: Within Functional Limits Manual Muscle Testing - LUE: Within functional limits Sensation Light Touch: Left Upper Extremity: Intact Right Lower Extremity Examination RLE ROM Assessment RLE Assessment: Within Functional Limits Manual Muscle Testing - RLE: Within functional limits Sensation Light Touch: Right Lower Extremity: Intact Left Lower Extremity Examination LLE ROM Assessment LLE Assessment: Exceptions to WFL AROM LLE (degrees) L Knee Flexion 0-140: 30 Manual Muscle Testing: Within functional limits except Hip flexion: 2+ Knee Flexion: 2+ Knee Extension: 2+ Ankle Dorsiflexion: 3+ Bed Mobility Bed Mobility Exam: Scooting/Bridging Level of [place]: Minimum assist (75% patient's effort) (in sitting to edge of bed. Pt scooted(I) in bedside chair to back of chair.) Physical/Nonphysical Assist: Set-up required,Verbal Cues Assistive Device: Other (draw sheet) Bed Mobility Exam: Supine to Sit Level of [place]: Minimum assist (75% patient's effort) Physical/Nonphysical Assist: HOB elevated,Set-up required,Verbal Cues Assistive Device: Bed rails Bed Mobility Exam: Sit to Supine Level of [place]: (Pt left seated in bedside chair.) Balance Postural Appearance Posture: Within Functional Limits Static Sitting Balance Static Sitting-Balance Support: Feet supported Static Sitting-Level of Assistance: Standby assist Dynamic Sitting Balance Dynamic Sitting-Balance Support: Feet supported Level of Assistance: Standby assisst Static Standing Balance Static Standing-Balance Support: Right upper extremity support,Left upper extremity support (RWx) Static Standing-Level of Assistance: Contact guard Dynamic Standing Balance Dynamic Standing-Balance Support: Right upper extremity support,Left upper extremity support (RWx) Dynamic Standing Level of Assistance: Contact guard Therapeutic Activity Pt participated in skilled therapeutic activities including edge of bed sitting, self care tasks, and bed mobility for improved upright activity tolerance, increased strength for improved ADL performance, improved postural control, muscular strength and endurance in prep for out of bed functional transfers. Self-Care Interventions Lower Extremity Dressing Sock Level of Assistance: Moderate assistance,Setup LE Dressing Where Assessed: Bed level LE Dressing Interventions: Pt donned right sock (I) supine in bed. She required max A to don sock on left foot. Standardized Assessments Afsaneh Index Feeding: Independent Bathing: Dependent Grooming: Independent face/hair/teeth/shaving (implements provided) Dressing: Needs help but can do about half unaided Bowels: Continent Bladder: Continent Toilet Use: Needs some help but can do some things alone Transfers (Bed to Chair and Back): Minor help (verbal or physical) Mobility (on Level Surfaces): Immobile or < 50 yards Stairs: Unable Total Score: 55 Assessment Pt presents with good participation and limited functional endurance. She is limited by high subjective levels of pain. OT Findings: Impaired ADL performance,Decreased endurance/ventilation/gas exchange,Impaired functional mobility,Impaired balance Evaluation/Treatment Tolerance: Patient limited by fatigue,Patient limited by pain Rehab Potential: Good, to achieve stated therapy goals Eval Complexity Occupational Profile: Expanded review of medical/therapy records and additional review of physical,cognitive, or psychosocial history Performance Deficits: Activities of daily living (ADLs),Instrumental activities of daily living (IADLs),Work,Leisure,Rest and sleep,Habits,Routines,Roles,Physical Clinical Decision Making: Moderate Overall Eval complexity: Moderate OT Recommendations Discharge Destination: Home with assistance Discharge Equipment: Rolling walker,Bedside commode Plan Progress (I) during functional transfers and ADL performance. Planned OT Interventions ADL retraining,Balance training,Bed mobility Training,Strengthening,Transfer training,Functional mobility,Caregiver education OT Frequency 2 - 5 times per week OT Duration 2 weeks Goals OT GOAL DETAILS Time Frame OT Goal 1: Pt will be (I) with all bed mobility transfers. 2 weeks OT Goal 2: Pt will transfer from bed <> bedside chair/BSC/wheelchair with SBA; AE PRN 2 weeks OT Goal 3: Pt will be (I) with lower body dressing; AE PRN 2 weeks OT Goal 4: Pt will be (I) with all toileting tasks; AE PRN 2 weeks Written by Hoa Duncan OT on 05/02/21 at 3:51 PM. * Progress Notes - Johnny Agudelo MD - 05/02/2021 1:43 AM EST ORTHOPAEDIC SURGERY PROGRESS NOTE 05/02/21 SUBJECTIVE Post op day 1. No acute events overnight. Doing well. Pain controlled. Tolerating diet (soup). No nausea, vomiting, fevers or chills. Has not ambulated yet since surgery but looking forward to working with PT today.. +Bowman OBJECTIVE PHYSICAL EXAMINATION Body mass index is 50.01 kg/m??. No acute distress Non labored breathing Peripheral perfusion intact FOCUSED MUSCULOSKELETAL EXAM L lower extremity Inspection: Soft dressings, c/d/i Motor Exam: Fires TA, GSC, EHL, FHL Sensory Exam: SILT DP, SP, T, Crawford, and Sa nerve distributions Vascular Exam: Palpable DP pulse, Cap refill <2 seconds, Toes WWP Compartment soft and compressible No pain with passive stretch of the toes ASSESSMENT AND PLAN Ambika Pratt is a 55 y.o. female patient with With L periprosthetic femoral shaft fracture s/p IMN (05/01). -Patient is recovering well on POD 1 and has no concerns. Weight-bearing restrictions: WBAT LLE DVT prophylaxis Pain control Nutritional optimization Bowel regimen PT/OT recommendations: pending eval Follow up: Dr. Flynn, 05/17/21 Disposition: admitted to [facility] Johnny Agudelo MD PGY-1, Orthopaedic Surgery [facility] Orthopaedic Trauma Service Pager: [phone] Orthopaedic Recon/Spine/Foot and Ankle Service Pager: [phone] Cosigned by Bebeto Flynn MD at 05/02/2021 7:56 AM EST * Anesthesia PACU Signout - Brenda Graves MD - 05/01/2021 4:36 PM EST Patient: Ambika Pratt Anesthesia Type: general Vitals Value Taken Time BP 140/93 05/01/21 1630 Temp 36.8 ??C (98.2 ??F) 05/01/21 1550 Pulse 100 05/01/21 1635 Resp 15 05/01/21 1635 SpO2 94 % 05/01/21 1635 Anesthesia PACU Signout Patient location during evaluation: PACU Patient participation: complete - patient participated Level of consciousness: baseline Pain management: adequate (pain score 0-3) Airway patency: natural airway Hydration status: acceptable PONV: none Cardiovascular status: acceptable and hemodynamically stable Respiratory status: acceptable and nasal cannula (2L NC) Discharge Disposition: admit to inpatient unit Cosigned by Patricio Figueroa MD at 05/01/2021 4:44 PM EST * Op Note - Crow Lockwood MD - 05/01/2021 1:45 PM EST Operative Note Date: 05/01/21 Location: [facility] Name: Ambika Pratt, : 1965, Diagnoses: Pre-op Diagnosis Closed fracture of distal end of left femur, unspecified fracture morphology, initial encounter ([facility]) Post-op Diagnosis Closed fracture of distal end of left femur, unspecified fracture morphology, initial encounter ([facility]) Procedure(s): Treatment of femoral shaft fracture with intramedullary implant Attending Surgeon(s): * Bebeto Flynn - Primary Try Out Person(s): Dr. Crow Lockwood Anesthesia: General ASA: III Blood Administration: Blood Product Administration History None Estimated Blood Loss: 250 mL Drains: Urethral Catheter (Active) Site Assessment Clean 05/01/21 1800 CAUTI: Collection Container Standard drainage bag 05/01/21 1800 CAUTI: Securement Method Securing device (Describe) 05/01/21 1800 CAUTI: Castile Wipes Used for Catheter Care Yes 05/01/21 1800 CAUTI: Specimen Collection Port Covered with Alcohol Cap Yes 05/01/21 1800 CAUTI: Urinary Catheter Necessity Yes, meets criteria 05/01/21 1800 CAUTI: Urinary Catheter Necessity Reasons Acute urinary retention or bladder outlet obstruction 05/01/21 1800 Implants Type Name Action Serial No. Nail NAIL FEMORAL RETRO T2 ALPHA 11MM X 340MM - [id number] Implanted Screw SCREW LOCKING T2 D5XL80 - [id number] - [id number] Implanted [id number] SCREW LOCKING T2 D5XL50 - [id number] Implanted SCREW LOCKING T2 D5XL60 - [id number] Implanted SCREW LOCKING T2 D5XL75 - [id number] Implanted SCREW LOCKING T2 D5XL55 - [id number] Implanted SCREW LOCKING T2 D5X32.5 - [id number] Implanted SCREW LOCKING T2 D5X37.5 - [id number] Implanted Specimen: none Findings: stable fracture, stable TKA components Indications: This is a 55 year old female who presented to the Emergency Department after nonsyncopal ground level fall. Upon evaluation in by the Orthopedic Surgery on-call team, they were found to have distal 1/3 femoral shaft fracture above a total knee. Patient is a total knee arthroplasty pe rformed in 2013 by outside surgeon and had had no significant issues with the knee. This knee was noted to be a Press-Fit [place] Triathlon. Despite continuing the hospital, implant records could notbe made available. Patient has past medical history significant for rheumatologic condition that she takes biologic for as well as insulin-dependent diabetes her hemoglobin A1c obtained at time of admission was 5.5%. She was medically optimized and stabilized prior to undergoing surgical intervention. We discussed the risks and benefits of non- operative therapy compared to operative care. We specifically discussed the risk of surgical intervention to include: infection, damage to surrounding yoko rovascular structures, failure to alleviate symptoms, continued pain, stiffness/loss of joint mobility, implant loosening or failure, nonunion/malunion, symptomatic implants, complex regional pain syndrome, inability to return to prior level of activity, loss of limb function, loss of limb, loss oflife, and risks of general anesthesia. I also discussed w/ her and her daughter that predicting knee function after can be tricky. Given her significant risk factors for wound issues, it was felt best if we could nail her fracture as opposed to plating though discussed and were prepared for both as well as to replace the poly if needed. After consideration, the patient elected to proceed with operative treatment. Formal written and verbal consent was obtained. Description of procedure: The patient was seen in the preoperative holding area. The left leg was/were identified as the correct operative side and marked appropriately. Again, the risks, benefits, and alternatives to surgery were explained to the patient to include, but not limited to, those indicated previously, and they still wished to proceed with the above-mentioned procedure. The patient had SCDs applied to the right lower extremity. The patient was then taken back to the operating room where a time-out was called. The patient was identified, as well as the left leg as the correct operative site. All parties were in agreement and the procedure commenced as planned. The patient underwent general anesthesia without any major difficulties. S/he was subsequently placed supine on a Anuj table, where all bony prominences were padded. A non-sterile bump was placed.Previous splints and dressings were removed, if applicable.The extremity was then prepped and draped in the usual sterile fashion. The patient was administered perioperative antibiotics within one hour of skin incision. Fluoroscopy was brought in and the patient placed into sterile proximal tibial traction 2 finger breaths distal to the tibial tubercle well away from the keel of the total knee prosthesis. The patient was then positioned in the flexion over a tibial triangle. Prior midline knee incision was utilized from the inferior pole of the patella to the tibial tubercle. Skin and subcutaneous tissue were sharply divided with a knife. Patella tendon was identified and split. A starting drill tip guidewire was then introduced into the appropriate position on biplanar fluoroscopy. This was advanced into the distal segment and an opening Reamer was utilized to gain access to the intramedullary canal. Ball- tipped guide jesse was then advanced sure. Fracture was identified on fluoroscopy and localized. Lateral approach in limited fashion to the distal femur was performed. Skin subcutaneous tissue was sharply incised with a knife. IT band was split with Bovie electrocautery. Blunt elevation of the vastuslateralis off the side of the femur was performed. Coronal plane deformity was corrected with a bump of blue towels by the knee and sagittal plane deformity was reduced with a colinear clamp. Ball-tip guide jesse was then advanced to the level of piriformis fossa on the proximal femur. Length for intramedullary nail was measured and subsequent reaming to 1.5 mm of the chosen size of nail based on pr eoperative imaging and intraoperative chatter was performed. The nail was then advanced long ball-tip guide jesse in demonstrated no interval displacement of the fracture. Ball-tipped guide jesse was removed and 4 distal interlocking bolts and 2 proximal interlocking bolts were placed. Distal interlocking bolts were placed utilizing the aiming arm and the proximal interlocking bolts were placed using perfect [place] technique. Final fluoroscopic imaging demonstrated acceptable reduction and restorationist of length alignment rotation when comparing lessre trochanter profiles between the 2 sides. The surgical wound was thoroughly irrigated. It was then closed in a layered fashion. Sterile dressings were placed. We removed the surgical drapes and placed the patient into soft. Thepatient was subsequently extubated without complication and was transferred to the recovery room instable condition. All counts were correct x2 at the conclusion of the procedure. The patient tolerated the procedure well. Dr. Flynn was present for the entire case. Post-operative plan: Patient will be protected weight-bearing to her left lower extremity. She willreceive DVT prophylaxis per institutional protocol. She will receive 23 hours of prophylactic antibiotic therapy. She will plan to follow-up with Dr. Flynn in 2 weeks time for wound check. Work with Physical and Occupational therapy. She will receive a tertiary survey is appropriate. Complications: None; patient tolerated the procedure well. Submitted by: Crow Lockwood MD - 05/01/2021 - 6:44 PM Cosigned by Bebeto Flynn MD at 05/02/2021 10:41 AM EST Associated attestation - Bebeto Flynn MD - 05/02/2021 10:41 AM EST I saw and evaluated the patient with the resident/fellow. I discussed the case with the resident/fellow and agree with the findings and plan as documented. I was present for the entirety of the procedure(s). * Brief Op Note - Crow Lockwood MD - 05/01/2021 1:45 PM EST Date: 05/01/21 Location: [facility] Name: Ambika Aponte Terence, : 1965, Diagnoses: Pre-op Diagnosis Closed fracture of distal end of left femur, unspecified fracture morphology, initial encounter ([facility]) Post-op Diagnosis Closed fracture of distal end of left femur, unspecified fracture morphology, initial encounter ([facility]) Procedure(s): Retrograde IMN L femur fx Attending Surgeon(s): Tiny Flynn - Primary Try Out Person(s): florin Anesthesia: General ASA: III Blood Administration: Blood Product Administration History None Estimated Blood Loss: 250 mL Drains: * None in log * Implants Type Name Action Serial No. Nail NAIL FEMORAL RETRO T2 ALPHA 11MM X 340MM - [id number] Implanted Screw SCREW LOCKING T2 D5XL80 - [id number] - [id number] Implanted [id number] SCREW LOCKING T2 D5XL50 - [id number] Implanted SCREW LOCKING T2 D5XL60 - [id number] Implanted SCREW LOCKING T2 D5XL75 - [id number] Implanted SCREW LOCKING T2 D5XL55 - [id number] Implanted SCREW LOCKING T2 D5X32.5 - [id number] Implanted SCREW LOCKING T2 D5X37.5 - [id number] Implanted Specimen: none Findings: stable fracture Complications: None; patient tolerated the procedure well. Submitted by: Crow Lockwood MD - 05/01/2021 - 3:57 PM Cosigned by Bebeto Flynn MD at 05/02/2021 7:55 AM EST * Hospital Course - Yamini Belcher APRN - 05/01/2021 10:31 AM EST Admitted to Trauma Team and evaluated per ATLS protocol, scans and xrays performed. Injuries andconcerns include: Left distal femur fracture, HTN, fibromyalgia, DM, and obesity. Physical therapy and occupational therapy evaluated the patient during hospitalization and recommend acute rehab but she progressed and declined rehab and will discharge to home with rolling walker. At the time of discharge the patient was hemodynamically stable, tolerating PO, voiding spontaneously, normal bowel function, mobilizing appropriately, with their pain controlled with PO medication. At this time, the patient has obtained the maximum benefit from the present hospital stay, and so will be discharged to home DVT prophylaxis: Lovenox 30 mg BID until 05/21 ASA 81 mg BID until 06/04 Procedures: ORIF of left femur fracture on 05/01 Mobility Restrictions: Protected WBAT LLE Follow up: Primary care provider 1 week Follow up with Dr. Flynn 05/17/21 Follow-up as needed with trauma clinic (Sunday clinic) [address] [facility] 1[address] floor [place], [place] [id number] Questions or Concerns and Appointments If there are questions or concerns after discharge from the hospital, please call [phone] and ask for Blue Surgery Nurse. Working hours are Sunday - Sunday 8:00 AM to 4:00 PM. After hours, weekends and holidays please call [phone] and ask for the resident risk management professional for [facility]. For appointments please call [phone]. Medication requests should be made between the hours of 9:00 AM to 3:00 PM Sunday thru Sunday. Please note that based upon recent changes to [place] law related to prescribing opioid pain medications, our providers will not provide refills on controlled medications after your hospital discharge following a major surgery or trauma. [place], [place] 201 KAR9:260. * Progress Notes - Ava Joseph APRN - 05/01/2021 8:17 AM EST TRAUMA SURGERY TERTIARY SURVEY 05/01/21 Ambika Pratt HPI 55 yr old female admitted due to fall on 04/30. Past 24 hrs: Patient resting in bed with family at bedside. Alert and oriented. Tolerating room air and has beenNPO since midnight. Vitals stable and pain controlled. Eager to complete surgery today. States she has a hx of htn and fibromyalgia. Nurse and patient voice no other concerns at this time. Edited by: Ava Joseph APRN at 05/01/2021 0813 Past Medical History: Active Ambulatory Problems Diagnosis Date Noted ??? No Active Ambulatory Problems Resolved Ambulatory Problems Diagnosis Date Noted ??? No Resolved Ambulatory Problems Past Medical History: Diagnosis Date ??? COPD (chronic obstructive pulmonary disease) ([facility]) ??? Diabetes mellitus (CMS/[facility]) ??? Hypertensive heart disease without congestive heart failure ??? Lactic acidosis 04/30/2021 Past Surgical History: History reviewed. No pertinent surgical history. Home Medications: Prior to Admission medications Not on File Social History: Pt has reports that she has never smoked. She has never used smokeless tobacco. She reports that she does not drink alcohol and does not use drugs. (details as available below) Social History Substance and Sexual Activity Alcohol Use Never Social History Substance and Sexual Activity Drug Use Never Social History Tobacco Use Smoking Status Never Smoker Smokeless Tobacco Never Used A 14 point review of systems was reviewed and is negative except as mentioned in the HPI. Vital signs: Visit Vitals BP 117/79 (BP Location: Right arm, Patient Position: Lying) Pulse 77 Temp 36.8 ??C (98.3 ??F) (Oral) Resp 16 Ht 1.549 m (5' 0.98 ) Wt 120 kg (264 lb 8.8 oz) SpO2 96% BMI 50.01 kg/m?? Smoking Status Never Smoker BSA 2.27 m?? Physical Exam: Physical Exam Vitals and nursing note reviewed. Constitutional: General: She is not in acute distress. Appearance: Normal appearance. She is obese. She is not ill-appearing, toxic- appearing or diaphoretic. HENT: Head: Normocephalic. Nose: Nose normal. No congestion or rhinorrhea. Mouth/Throat: Mouth: Mucous membranes are moist. Pharynx: No oropharyngeal exudate or posterior oropharyngeal erythema. Eyes: General: Right eye: No discharge. Left eye: No discharge. Pupils: Pupils are equal, round, and reactive to light. Cardiovascular: Rate and Rhythm: Normal rate and regular rhythm. Pulses: Normal pulses. Heart sounds: Normal heart sounds. No murmur heard. No friction rub. Pulmonary: Effort: Pulmonary effort is normal. No respiratory distress. Breath sounds: Normal breath sounds. No stridor. No wheezing, rhonchi or rales. Chest: Chest wall: No tenderness. Abdominal: General: Bowel sounds are normal. There is no distension. Palpations: Abdomen is soft. Tenderness: There is no abdominal tenderness. There is no guarding or rebound. Musculoskeletal: General: Signs of injury (LLE) present. No swelling, tenderness or deformity. Normal range of motion. Cervical back: Normal range of motion. No rigidity or tenderness. Skin: General: Skin is warm. Coloration: Skin is not jaundiced or pale. Findings: No bruising or erythema. Neurological: General: No focal deficit present. Mental Status: She is alert and oriented to person, place, and time. Mental status is at baseline. Psychiatric: Mood and Affect: Mood normal. Behavior: Behavior normal. Intake/Output Summary (Last 24 hours) at 05/01/2021 0818 Last data filed at 05/01/2021 0600 Gross per 24 hour Intake 1200 ml Output 400 ml Net 800 ml Lines/Drains/Tubes: Patient Lines/Drains/Airways Status Active Airway None Output by Drain (mL) 04/29/21 0700 - 04/29/21 1859 04/29/21 1900 - 04/30/21 0659 04/30/21 0700 - 04/30/21 1859 04/30/21 1900 - 05/01/21 0659 05/01/21 0700 - 05/01/21 0818 Patient has no LDAs of requested type attached. Labs in last 18 hours: CBC WBC 10.61 (H) Hb 12.1 Plt 289 Hct 37.9 ANC 11.34 (H) INR 1.0, PTT ??, Anti-Xa ?? BMP Na 140 Cl 105 BUN 20 Glu 137 (H) K 4.3 Co2 23 Cr 0.85 Ca 8.7 (L) iCa ?? Mg 1.8 (L), Phos 3.8 Lactate ?? LFT AST 162 (H) AlkPhos 138 T Prot 7.0 ALK 73 (H) Bili 0.6 Alb ?? D.Bili ?? Lab Trends: H/H Results from last 7 days Lab Units 05/01/21 0221 04/30/21 1420 HEMOGLOBIN g/dL 12.1 13.5 HEMATOCRIT % 37.9 40.3 INR Results from last 7 days Lab Units 05/01/21 0221 04/30/21 1419 INR 1.0 1.0 Cr Results from last 7 days Lab Units 05/01/21 02204/30/21 1419 CREATININE mg/dL 0.85 0.87 Lactate No lab exists for component: LACTTEVEN Radiology: All admitting images reviewed I have reviewed the active problem list, medication list, lab results and imaging. I performed a complete tertiary exam, reviewed patient history, lab studies and all available imaging. All traumatic or incidental findings have been documented. Assessment and Plan: Medical Problems Problem List * (Principal) Closed fracture of left distal femur ([facility]) Overview Addendum 04/30/2021 4:01 PM by Forrest Hdz MD Ortho following, recommend operative management Nothing by mouth\ hold DVT prophylaxis Elevated LFTs Overview Signed 04/30/2021 4:43 PM by Ava Joseph APRN Stable abdominal exam HTN (hypertension) Overview Signed 05/01/2021 8:12 AM by Ava Joseph APRN Restart home meds as appropriate Obesity Overview Signed 05/01/2021 8:12 AM by Ava Joseph APRN Could complicate care Fibromyalgia Overview Signed 05/01/2021 8:13 AM by Ava Joseph APRN could complicate care Fall Overview Signed 04/30/2021 3:53 PM by Forrest Hdz MD Admit to trauma floor Diabetes ([facility]) Overview Addendum 05/01/2021 8:17 AM by Ava Joseph APRN Sliding-scale insulin CC2 diet once OR complete To Do: - Mobility and IS - NPO for OR with ortho - possible transfer to ortho - AM labs ordered Dispo: PT/OT after surgery Edited by: Ava Joseph APRN at 05/01/2021 0817 Ava Joseph APRN * Progress Notes - Crow Lockwood MD - 05/01/2021 6:00 AM EST Orthopaedic Surgery Progress Note @DATE@ SUBJECTIVE: No acute events overnight. Doing well. Pain controlled. NPO OBJECTIVE: Visit Vitals BP (!) 136/91 Pulse 73 Temp 36.9 ??C (98.5 ??F) SpO2 96% PE: No acute distress Non labored breathing Peripheral perfusion intact Left lower extremity: Well healed midline knee incision 5/5 extensor hallucis longus, flexor hallucis longus, tibialis anterior, gastrocnemius / soleus Sensation intact to light touch superficial peroneal, deep peroneal, tibial, saphenous, and sural nerve distributions. Capillary refill less than 2 seconds. Palpable +2 posterior tibialis and dorsalis pedis pulses Labs in last 18 hours CBC WBC 10.61 (H) Hb 12.1 Plt 289 Hct 37.9 ANC 11.34 (H) INR 1.0, PTT ??, Anti-Xa ?? BMP Na 140 Cl 105 BUN 20 Glu 137 (H) K 4.3 Co2 23 Cr 0.85 Ca 8.7 (L) iCa ?? Mg 1.8 (L), Phos 3.8 Lactate ?? LFT AST 162 (H) AlkPhos 138 T Prot 7.0 ALK 73 (H) Bili 0.6 Alb ?? D.Bili ?? ASSESSMENT/PLAN: Ambika Pratt is a 55 y.o. female With L periprosthetic femoral shaft fracture -plan for OR today for ORIF left femur fx, possible poly swap left knee and any other indicated procedures -Patient has been NPO since MN -Pre-op COVID obtained and negative -Pre-op abx to be administered within 1 hour of start time -Please hold AM DVT PPX. Orthopaedic Surgery will assist with resumption of anticoagulation We discussed the nature of the injuries/injuries and treatment options including operative versus nonoperative management. Furthermore we discussed the risks, benefits, expected outcomes, and potential complications of each of these as well as the prognosis associated. Patient understood the risks of treatment to include but not be limited to infection, bleeding, wound complications, neurovascular injury, RSD/CRPS, loss of fixation, malunion, nonunion, as well as the need for potential revisionsurgery. Furthermore we discussed the potential for postoperative pain, stiffness, disability, instability, loss of limb, loss of life, as well as other anesthetic or thromboembolic and tourniquet related complications. Decision was made to proceed to surgery. All their questions were answered and informed consent was obtained. Crow Lockwood MD Dept. of Orthopaedic Surgery and Sports Medicine, Resident Physician Orthopedic Reconstructiion ([facility]) Service Pager: [phone] Orthopedic Trauma ([facility]) Service Pager: [phone] Cosigned by Bebeto Flynn MD at 05/01/2021 12:39 PM EST Associated attestation - Bebeto Flynn MD - 05/01/2021 12:39 PM EST I saw and evaluated the patient. I discussed the case with the resident/fellow and agree with the findings and plan as documented. * H&P - Forrest Hdz MD - 04/30/2021 3:44 PM ESTAssociated Order(s): Consult to Trauma Surgery Consult to Trauma Surgery Consult performed by: Forrest Hdz MD Consult ordered by: Samson Bustamante MD Reason for consult: Trauma evaluation Assessment/Recommendations: Admit to trauma floor Trauma Alert? No Time of Consultation: 14:00 Time of Trauma Evaluation: 14:00 Injury Date: 04/30/21 Arrival Date/Time: Referring Hospital: n/a Transport Mode: Mode of Arrival: Ambulance Mechanism of Injury Fall from standing Farm Related Injury: no Work Related Injury: no History Of Present Illness Ambika Pratt is a 55 y.o. female who was involved in a fall from standing earlier today. States she tripped and fell over her grandson's toys and landed on left leg and hit her head as well. Denies loss of consciousness. Immediately had left leg pain. Brought to for evaluation. Has distal femur fracture as seen on plain films and CT scan. Ortho consulted for evaluation, recommendedoperative management. Trauma surgery consult for evaluation. Patient is not currently take any blood thinners. Old Chart Reviewed: yes Loss of Consciousness: no Past Medical History She has a past medical history of COPD (chronic obstructive pulmonary disease) ([facility]), Diabetes mellitus ([facility]), and Hypertensive heart disease without congestive heart failure. Surgical History Knee replacement x2, Eulogio-en-Y bypass, cholecystectomy Family History No family history on file. Social History She reports that she has never smoked. She has never used smokeless tobacco. She reports that she does not drink alcohol and does not use drugs. Allergies Cefdinir Medications No current facility-administered medications for this encounter. No current outpatient medications on file. Occupational History none Occupational History ??? Not on file Occupational Exposure Concern ??? Not on file Employer: [employer] Immunizations VACCINE/DOSE Flu Tetanus Pneumovax Shingles A 14 point review of systems was reviewed and is negative except as mentioned in the HPI. Physical Exam Constitutional: Appearance: Normal appearance. She is obese. HENT: Head: Normocephalic and atraumatic. Mouth/Throat: Mouth: Mucous membranes are moist. Cardiovascular: Rate and Rhythm: Normal rate. Pulmonary: Effort: Pulmonary effort is normal. Abdominal: General: Abdomen is flat. There is no distension. Palpations: Abdomen is soft. Tenderness: There is no abdominal tenderness. Musculoskeletal: General: Tenderness and signs of injury present. Cervical back: Normal range of motion. Comments: Pain in left leg, able to plantar and dorsiflex ankle, neurovascularly intact distally Skin: General: Skin is warm and dry. Neurological: General: No focal deficit present. Mental Status: She is alert and oriented to person, place, and time. Mental status is at baseline. Psychiatric: Mood and Affect: Mood normal. Last Recorded Vitals Blood pressure (!) 154/126, pulse 83, temperature 36.4 ??C (97.6 ??F), temperature source Oral, resp. rate 20, height 1.549 m (5' 1 ), weight 120 kg (264 lb 8.8 oz), SpO2 98 %. [place] 15 Intubated No Recent Results Labs in last 18 hours CBC WBC 14.68 (H) Hb 13.5 Plt 326 Hct 40.3 ANC 11.34 (H) INR 1.0, PTT ??, Anti-Xa ?? BMP Na 142 Cl 108 (H) BUN 23 (H) Glu 142 (H) K 4.2 Co2 19 (L) Cr 0.87 Ca 9.1 iCa ?? Mg ??, Phos ?? Lactate ?? LFT AST 162 (H) AlkPhos 138 T Prot 7.0 ALK 73 (H) Bili 0.6 Alb ?? D.Bili ?? Radiology FAST:Not Done XR Hip Left 2 or 3 Views Result Date: 04/30/2021 Impression: Acute obliquely oriented fracture through the distal femoral diaphysis. CRITICAL RESULT: No. COMMUNICATION: Per this written report. Signed by Marco Antonio Mckinney on 04/30/2021 2:18 PM XR Femur Left 2+ Views Result Date: 04/30/2021 Impression: Acute obliquely oriented fracture through the distal femoral diaphysis. CRITICAL RESULT: No. COMMUNICATION: Per this written report. Signed by Marco Antonio Mckinney on 04/30/2021 2:18 PM XR Knee Left 3 Views Result Date: 04/30/2021 Impression: Acute obliquely oriented fracture through the distal femoral diaphysis. CRITICAL RESULT: No. COMMUNICATION: Per this written report. Signed by Marco Antonio Mckinney on 04/30/2021 2:18 PM XR Tibia Fibula Left 2+ Views Result Date: 04/30/2021 Impression: Acute obliquely oriented fracture through the distal femoral diaphysis. CRITICAL RESULT: No. COMMUNICATION: Per this written report. Signed by Marco Antonio Mckinney on 04/30/2021 2:18 PM XR Chest 1 View Result Date: 04/30/2021 Impression: No acute findings CRITICAL RESULT: No. COMMUNICATION: Per this written report. Signed by Rosanna Deng on 04/30/2021 3:01 PM XR Pelvis 1 or 2 Views Result Date: 04/30/2021 Impression: No acute osseous findings CRITICAL RESULT: No. COMMUNICATION: Per this written report. Signed by Rosanna Deng on 04/30/2021 3:39 PM Medical Problems Problem List Closed fracture of left distal femur (CMS/HCC) Overview Signed 04/30/2021 3:53 PM by Forrest Hdz MD Ortho following, recommend operative management Nothing by mouth midnight Old a.m. DVT prophylaxis Fall Overview Signed 04/30/2021 3:53 PM by Forrest Hdz MD Admit to trauma floor Diabetes (CMS/HCC) Overview Signed 04/30/2021 3:53 PM by Forrest Hdz MD Sliding-scale insulin Admit to trauma floor Ortho following for femur fracture, recommend operative management Nothing by mouth, mIVF DVT prophylaxis (hold) Restart home meds as appropriate Sliding-scale insulin Follow-up head CT Forrest Hdz MD Cosigned by Ji Matos MD at 04/30/2021 4:18 PM EST Associated attestation - Ji Matos MD - 04/30/2021 4:18 PM EST I saw and evaluated the patient with the resident/fellow. I discussed the case with the resident/fellow and agree with the findings and plan as documented. * Consults - Sal Spangler MD - 04/30/2021 3:00 PM ESTAssociated Order(s): IP CONSULT TO ORTHOPAEDICS ORTHOPAEDIC SURGERY TRAUMA CONSULT NOTE 04/30/2021 CHIEF COMPLAINT: left femur fracture HISTORY OF PRESENT ILLNESS Ambika Pratt is a 55 y.o. female with PMHx significant for hypertension, COPD, diabetes, psoriatic arthritis, asthma, and fibromyalgia presenting as transfer from OSH for left periprosthetic femur fracture. She reports walking down the hallway in her home at approximately 10am when she t ripped over her grandchildren's toys and fell. She believes she twisted her left leg and immediately felt pain and reports that he leg was sticking out the wrong way. She also hit her head when shefell. Denies any current headaches or loss of consciousness. Of note, reports asthma attack during a prior surgery and states that she requires nebulizer breathing treatments prior to receiving anesthesia. Also reports yeast infections with administration of IV antibiotics and requests to also receive fluconazole if she is to receive IV abx. Last Meal: 9am 04/30 DVT/PE: denies MRSA: prior staph skin infection, unsure if MRSA Anticoagulants: denies PCN: reports anaphylactic reaction to cefdinir Metal: denies PAST MEDICAL HISTORY COPD (not on O2), Diabetes (on januvia), HTN, asthma, hypothyroidism, psoriatic arthritis, fibromyalgia MEDICATIONS Fluoxetine 40mg BID Levothyroxine 125mcg pregabalin 150mg BID Simvastatin 5mg buproprion 150mg BID Etanercept 50mg subcutaneous BID with meals linaclotide 72mcg Loratadine Losartan 100mg Fluticasone/salmeterol Montelukast albulerol neb Doxycycline 150mg BID pantoprozole 40mg BID sitagliptin 100mg daily Tramadol 50 TID PRN Ibuprofen 800mg Q8hr PRN ALLERGIES Cefdinir (reportedly stopped breathing), morphine (hallucinations) PAST SURGICAL HISTORY Left knee meniscus repair x2 Bilateral total knee replacements with Dr. Doty, now in [place], [place]. Surgeries performed in [facility]. L TKA 2013. Press fit Abdiel Triathalon. Reports uncomplicated postoperative course, satisfied with outcome. R TKA 2015. Lithotripsy approx 10 days ago Heel spur removal x2 x2 Hysterectomy Cholecystectomy FAMILY HISTORY Family history reviewed and otherwise non-contributory. SOCIAL HISTORY Tobacco: 1/2ppd [id number] EtOH: denies Illicits: denies Lives in [place], [place] with daughter Employment: [employer] REVIEW OF SYSTEMS Review of systems is negative other than as mentioned in HPI PHYSICAL EXAMINATION VITALS: Body mass index is 49.99 kg/m??. Visit Vitals BP (!) 154/126 Pulse 88 Temp 36.4 ??C (97.6 ??F) (Oral) Resp 14 Ht 1.549 m (5' 1 ) Wt 120 kg (264 lb 8.8 oz) SpO2 98% BMI 49.99 kg/m?? Smoking Status Never Smoker BSA 2.27 m?? General Physical Exam Constitutional No acute distress Head Normocephalic and atraumatic Cardiovascular Peripheral perfusion intact Pulmonary/Chest Good respiratory effort, symmetric chest expansion, no respiratory difficulty appreciated Neurological Alert and oriented to person, place, and time Psychiatric Normal mood and affect, behavior and judgment FOCUSED MUSCULOSKELETAL EXAM: Clavicles non-tender to palpation bilaterally without crepitus Pelvis stable to AP and lateral compression RIGHT UPPER EXTREMITY Inspection: skin intact, no deformity, soft compartments, no pain with passive stretch, non-tender to palpation Range of motion: Full/painless/stable at shoulder, elbow, and wrist Motor: 5/5 ER/IR, 5/5 Deltoid, 5/5 Biceps, 5/5 Triceps, 5/5 Wrist flexion, 5/5 Wrist extension, 5/5Finger flexion, 5/5 Finger extension, 5/5 Finger abduction, 5/5 EPL, 5/5 FPL Sensation: Sensation intact to light touch in axillary, radial, median, and ulnar nerve distributions Vascular: 2+ radial pulse, capillary refill <2 seconds, digits warm and well perfused LEFT UPPER EXTREMITY Inspection: skin intact. no deformity, soft compartments, no pain with passive stretch, non tender to palpation Range of motion: Full/painless/stable at shoulder, elbow, and wrist Motor: 5/5 ER/IR, 5/5 Deltoid, 5/5 Biceps, 5/5 Triceps, 5/5 Wrist flexion, 5/5 Wrist extension, 5/5Finger flexion, 5/5 Finger extension, 5/5 Finger abduction, 5/5 EPL, 5/5 FPL Sensation: Sensation intact to light touch in axillary, radial, median, and ulnar nerve distributions Vascular: 2+ radial pulse, capillary refill <2 seconds, digits warm and well perfused RIGHT LOWER EXTREMITY Inspection: skin intact, no deformity, soft compartments, no pain with passive stretch, non-tender to palpation. Range of motion: Full/painless/stable at hip, knee, and ankle. Reports pain in contralateral leg with movement. Motor: 5/5 HAbd, 5/5 HF, 5/5 KE, 5/5 KF, 5/5 TA, 5/5 GSC, 5/5 EHL, 5/5 FHL Sensation: Sensation intact to light touch in superficial and deep peroneal, saphenous, sural, and tibial nerve distributions Vascular: 2+ dorsalis pedis and posterior tibialis pulses, capillary refill <2 seconds, digits warm and well perfused LEFT LOWER EXTREMITY Inspection: skin intact, soft compartments, tender to palpation over distal femur. Compartments soft. Leg appears slightly shortened compared to contralateral side. Mild erythema along pannus overhanging L hip. Range of motion: Full/painless/stable at ankle. Deferred hip and knee due to pain. Motor: deferred hip and knee due to pain, 5/5 TA, 5/5 GSC, 5/5 EHL, 5/5 FHL Sensation: Sensation intact to light touch in superficial and deep peroneal, saphenous, sural, and tibial nerve distributions Vascular: 2+ dorsalis pedis and posterior tibialis pulses, capillary refill <2 seconds, digits warm and well perfused IMAGING Imaging obtained and reviewed personally by myself shows: Displaced left distal periprosthetic femur fracture ASSESSMENT AND PLAN Ambika Pratt is a 55 y.o. female patient with 1. Acute traumatic closed displaced left distal periprosthetic femur fracture Discussed that patient eating at 9am may prevent her from having surgery today. Discussed skeletal traction as a pain control option, however patient declined. Also declined being placed into a knee immobilizer. Weight bearing restrictions: NWB LLE Pain control per Ed/primary Bowel regimen Anticipate operative management PT/OT NPO at midnight Hold DVT AM prophylaxis Extremity marked and informed consent for surgery obtained Plan for OR 05/01 Will obtain operative/implant records from [facility] Dispo: Recommend admit to [facility] per institutional protocol Daniel Campoverde MD Orthopaedic Surgery [facility] Orthopaedic Trauma Service Pager: [phone] Orthopaedic Recon/Spine/Foot and Ankle Service Pager: [phone] Cosigned by Bebeto Flynn MD at 05/01/2021 12:38 PM EST Associated attestation - Bebeto Flynn MD - 05/01/2021 12:38 PM EST I saw and evaluated the patient. I discussed the case with the resident/fellow and agree with the findings and plan as documented. Met Ms. Fadi Pratt and her daughter. We discussed her diagnosis and treatment options. Given her risk factors wound healing issues, will use a retrograde femoral nail if possible. HbA1C is ordered to assess her glucose control. Is on a biologic. Discussed some potential for malreduction w/ nail and that we may ultimately need to use a plate. Did also discuss that may have some stiffness after surgery or new instability. The expressed understanding and wish to proceed to surgery. If fixation adequate, would like to allow for protected weight bearing post-op. * ED Provider Notes - Donna Marino MD - 04/30/2021 12:34 PM EST Images from the original note were not included. HPI Chief Complaint Patient presents with ??? Fall This 55-year-old female with a history of COPD, diabetes, hypertension presents to the emergency department with left leg pain after tripping over her grandchildren's toys and falling. She says it was a ground level fall. She did not lose consciousness. She does not take any blood thinners. She wasseen at outside hospital and diagnosed with a left femur fracture before being transferred here. She continues to have significant pain, but she does have sensation, movement distal to the fracture. She denies fevers, chills, abdominal pain, dizziness, nausea, vomiting, headache. She says nothing else hurts and she does not believe she is otherwise injured. No data recorded Patient History Past Medical History: Diagnosis Date ??? COPD (chronic obstructive pulmonary disease) (CMS/HCC) ??? Diabetes mellitus (CMS/HCC) ??? Hypertensive heart disease without congestive heart failure History reviewed. No pertinent surgical history. No family history on file. Tobacco Use ??? Smoking status: Never Smoker ??? Smokeless tobacco: Never Used Vaping Use ??? Vaping Use: Never used Substance Use Topics ??? Alcohol use: Never ??? Drug use: Never none Occupational History ??? Not on file Occupational Exposure Concern ??? Not on file Employer: [employer] Travel History Relevant International Travel History: Travel Screening Question Response In the last month, have you been in contact with someone who was confirmed or suspected to have Coronavirus / COVID-19? No / Unsure Have you had a COVID-19 viral test in the last 14 days? No Do you have any of the following new or worsening symptoms? None of these Have you traveled internationally or domestically in the last month? No Travel History Travel since 03/31/21 No documented travel since 03/31/21 Relevant Domestic Travel History: none Immunization History reviewed VACCINE/DOSE Flu Tetanus Pneumovax Shingles Allergies Allergen Reactions ??? Cefdinir Unknown Review of Systems Review of Systems Constitutional: Negative for appetite change, chills, fatigue and fever. HENT: Negative for dental problem, rhinorrhea and sore throat. Eyes: Negative for discharge, redness and visual disturbance. Respiratory: Negative for cough and shortness of breath. Cardiovascular: Negative for chest pain, palpitations and leg swelling. Gastrointestinal: Negative for abdominal pain, constipation, diarrhea, nausea and vomiting. Genitourinary: Negative for difficulty urinating, dysuria, hematuria and menstrual problem. Musculoskeletal: Positive for arthralgias (Left leg pain). Negative for myalgias. Skin: Negative for rash. Neurological: Negative for syncope and headaches. Hematological: Negative for adenopathy. Does not bruise/bleed easily. All other systems reviewed and are negative. Physical Exam ED Triage Vitals [04/30/21 1242] Temp Heart Rate Resp BP 36.4 ??C (97.6 ??F) 93 22 162/85 SpO2 Temp Source Heart Rate Source Patient Position 95 % Oral Monitor Lying BP Location FiO2 (%) Right arm -- Physical Exam Vitals and nursing note reviewed. Constitutional: General: She is not in acute distress. Appearance: She is not ill-appearing. HENT: Head: Normocephalic and atraumatic. Right Ear: Tympanic membrane and external ear normal. Left Ear: Tympanic membrane and external ear normal. Nose: No congestion or rhinorrhea. Mouth/Throat: Mouth: Mucous membranes are moist. Pharynx: No oropharyngeal exudate or posterior oropharyngeal erythema. Eyes: General: Right eye: No discharge. Left eye: No discharge. Extraocular Movements: Extraocular movements intact. Conjunctiva/sclera: Conjunctivae normal. Pupils: Pupils are equal, round, and reactive to light. Cardiovascular: Rate and Rhythm: Normal rate and regular rhythm. Pulses: Normal pulses. Heart sounds: No murmur heard. Comments: 2+ radial and pedal pulses bilaterally. Pulmonary: Effort: Pulmonary effort is normal. Breath sounds: Normal breath sounds. No wheezing or rhonchi. Chest: Chest wall: No tenderness. Abdominal: General: There is no distension. Palpations: Abdomen is soft. Tenderness: There is no abdominal tenderness. There is no guarding or rebound. Musculoskeletal: General: No signs of injury. Cervical back: Normal range of motion. No rigidity. Right lower leg: No edema. Left lower leg: No edema. Comments: Tenderness of left distal femur with some surrounding swelling. Leg is soft but tender with palpation. Patient is able to move left foot and toes and has intact sensation. Neurovascularly intact distal to injury. Skin: General: Skin is warm and dry. Capillary Refill: Capillary refill takes less than 2 seconds. Pulses and capillary refill normal distal to left femur injury. Findings: No rash. Neurological: General: No focal deficit present. Mental Status: She is alert and oriented to person, place, and time. Psychiatric: Mood and Affect: Mood normal. Thought Content: Thought content normal. ED Course & MDM Clinical Impressions as of 04/30/21 1507 Closed fracture of distal end of left femur, unspecified fracture morphology, initial encounter ([facility]) MDM Number of Diagnoses or Management Options Closed fracture of distal end of left femur, unspecified fracture morphology, initial encounter ([facility]) Diagnosis management comments: I assessed this patient and staffed with Dr. Bustamante. In summary this 55-year-old female presents to the emergency department with left leg and concerns for femur fracture from outside hospital. Differential diagnosis includes but is not limited to fracture, ligamentous injury, neurovascular injury. On physical exam, patient has tenderness and slight deformity of leftdistal femur with surrounding swelling. Neurovascularly intact distal to the injury. Imaging was obtained. X-rays demonstrate acute obliquely oriented fracture through the distal femoral diaphysis. ECG was personally reviewed did not demonstrate any acute abnormalities. Labs demonstrate mild leukocytosis without acute or actionable abnormality. Orthopedics was consulted for recommendations. Trauma surgery was consulted for recommendations and admission of this patient. They are admitting her. Amount and/or Complexity of Data Reviewed Clinical lab tests: reviewed and ordered Tests in the radiology section of CPT??: reviewed and ordered Independent visualization of images, tracings, or specimens: yes (I personally reviewed x-rays and EKG) Patient Progress Patient progress: stable Donna Marino MD Resident 04/30/21 1539 Cosigned by Samson Bustamante MD at 05/01/2021 8:51 AM EST Associated attestation - Samson Bustamante MD - 05/01/2021 8:51 AM EST I saw and evaluated the patient with the resident/fellow. I discussed the case with the resident/fellow and agree with the findings and plan as documented. * ED Triage Notes - Clementina Busch RN - 04/30/2021 12:34 PM EST Pt fell this AM over present, -LOC. Left femur shaft fx. documented in this encounter Plan of Treatment Not on file documented as of this encounter Procedures Procedure Name Priority Date/Time Associated Diagnosis Comments POCT GLUCOSE METER UNSOLICITED RESULTS Routine 05/06/2021 11:34 AM EST SARS COV-2/COVID-19 BY PCR Routine 05/06/2021 10:05 AM EST POCT GLUCOSE METER UNSOLICITED RESULTS Routine 05/06/2021 7:26 AM EST POCT GLUCOSE METER UNSOLICITED RESULTS Routine 05/05/2021 7:26 PM EST POCT GLUCOSE METER UNSOLICITED RESULTS Routine 05/05/2021 6:22 PM EST POCT GLUCOSE METER UNSOLICITED RESULTS Routine 05/05/2021 4:52 PM EST POCT GLUCOSE METER UNSOLICITED RESULTS Routine 05/05/2021 11:20 AM EST POCT GLUCOSE METER UNSOLICITED RESULTS Routine 05/05/2021 7:38 AM EST POCT GLUCOSE METER UNSOLICITED RESULTS Routine 05/04/2021 10:04 PM EST URINALYSIS MICROSCOPIC FOR UA REFLEX Routine 05/04/2021 4:52 PM EST URINALYSIS WITH REFLEX MICROSCOPIC Routine 05/04/2021 4:52 PM EST POCT GLUCOSE METER UNSOLICITED RESULTS Routine 05/04/2021 4:42 PM EST POCT GLUCOSE METER UNSOLICITED RESULTS Routine 05/04/2021 11:44 AM EST POCT GLUCOSE METER UNSOLICITED RESULTS Routine 05/04/2021 7:25 AM EST ASPARTATE AMINOTRANSFERASE, PLASMA Routine 05/04/2021 5:50 AM EST ALANINE AMINOTRANSFERASE, PLASMA Routine 05/04/2021 5:50 AM EST POCT GLUCOSE METER UNSOLICITED RESULTS Routine 05/03/2021 8:17 PM EST POCT GLUCOSE METER UNSOLICITED RESULTS Routine 05/03/2021 5:35 PM EST POCT GLUCOSE METER UNSOLICITED RESULTS Routine 05/03/2021 12:14 PM EST POCT GLUCOSE METER UNSOLICITED RESULTS Routine 05/03/2021 8:08 AM EST POCT GLUCOSE METER UNSOLICITED RESULTS Routine 05/03/2021 6:07 AM EST POCT GLUCOSE METER UNSOLICITED RESULTS Routine 05/02/2021 9:15 PM EST POCT GLUCOSE METER UNSOLICITED RESULTS Routine 05/02/2021 3:20 PM EST POCT GLUCOSE METER UNSOLICITED RESULTS Routine 05/02/2021 11:26 AM EST POCT GLUCOSE METER UNSOLICITED RESULTS Routine 05/02/2021 8:08 AM EST ASPARTATE AMINOTRANSFERASE, PLASMA Add-On 05/02/2021 3:59 AM EST ALANINE AMINOTRANSFERASE, PLASMA Add-On 05/02/2021 3:59 AM EST CBC W/O DIFFERENTIAL Routine 05/02/2021 3:59 AM EST BASIC METABOLIC PANEL, PLASMA Routine 05/02/2021 3:59 AM EST POCT GLUCOSE METER UNSOLICITED RESULTS Routine 05/01/2021 9:11 PM EST XR FEMUR LEFT 2+ VIEWS Routine 6:20 PM EST POCT GLUCOSE METER UNSOLICITED RESULTS Routine 05/01/2021 3:53 PM EST OXYGEN THERAPY Routine 05/01/2021 3:31 PM EST FL LESS THAN 1 HOUR (NON-REPORTABLE) Routine 05/01/2021 3:26 PM EST INSERTION, INTRAMEDULLARY JESSE, FEMUR 05/01/2021 12:45 PM EST Closed fracture of distal end of left femur, unspecified fracture morphology, initial encounter ([facility]) PROTHROMBIN TIME(PT) / INR Routine 05/01/2021 2:21 AM EST CBC W/O DIFFERENTIAL Routine 05/01/2021 2:21 AM EST PHOSPHORUS, PLASMA Routine 05/01/2021 2: 21 AM EST MAGNESIUM, PLASMA Routine 05/01/2021 2:2 1 AM EST HEMOGLOBIN A1C STAT Add-on 05/01/2021 2:21 AM EST BASIC METABOLIC PANEL, PLASMA Routine 05/01/2021 2:21 AM EST POCT GLUCOSE METER UNSOLICITED RESULTS Routine 04/30/2021 11:44 PM EST LACTATE, VENOUS Routine 04/30/2021 8:[address] KNEE LEFT WO IV CONTRAST STAT 04/30/2021 4:[address] HEAD WO IV CONTRAST STAT 4:58 PM EST POCT GLUCOSE METER UNSOLICITED RESULTS Routine 04/30/2021 4:15 PM EST LACTATE, VENOUS STAT 04/30/2021 3:36 PM EST XR PELVIS 1 OR 2 VIEWS STAT 3:29 PM EST SARS COV-2/COVID-19 BY PCR STAT 04/30/2021 3:23 PM EST XR CHEST 1 VIEW STAT 04/30/2021 2:59 PM EST CBC WITH AUTO DIFFERENTIAL STAT 04/30/2021 2:20 PM EST TYPE AND SCREEN STAT 04/30/2021 2:20 PM EST PROTHROMBIN TIME(PT) / INR STAT 04/30/2021 2:19 PM EST COMPREHENSIVE METABOLIC PANEL, PLASMA STAT 04/30/2021 2:19 PM EST ECG ADULT STAT 04/30/2021 2:08 PM EST XR TIBIA FIBULA LEFT 2+ VIEWS STAT 04/30/2021 1:48 PM EST XR KNEE LEFT 3 VIEWS STAT 04/30/2021 1:48 PM EST XR FEMUR LEFT 2+ VIEWS STAT 1:48 PM EST XR HIP LEFT 2 OR 3 VIEWS STAT 04/30/2021 1:48 PM EST documented in this encounter Results * (ABNORMAL) POCT glucose meter (05/06/2021 11:34 AM EST) POCT Glucose 118(H) 74 - 99 mg/dL 05/06/2021 11:40 AM EST [facility] Comment:Accuracy of a glucos e result obtained from a capillary whole blood specimen relies upon adequate, non-compromised capillary blood flow. If the capillary glucose result is not consistent with the patient's clinical signs and symptoms, glucose testing should be repeated with either an arterial or venous sample on the glucometer or sent to the main labortory for testing. Comment 05/06/2021 11:40 AM EST [facility] Structural Worker ID Iram Phillips 05/06/2021 11:40 AM EST [facility] Device ID [id number] 05/06/2021 11:40 AM EST [facility] Specimen Type POC Capillary 05/06/2021 11:40 AM EST [facility] Blood Capillary blood specimen / Unknown 05/06/2021 11:34 AM EST 05/06/2021 11:40 AM EST Dory Slade MD LAB POINT OF CARE TEST DOCKED DEVICE UNSOLICITED RESULTS Final Result Performing Organization Address City/State/[facility] Co de Phone Number [facility] [address] [place] [address] * SARS CoV-2/COVID-19 by PCR (05/06/2021 10:05 AM EST) [facility] SARS CoV-2/COVID-1 9 RNA PCR Result Not Detected Not Detected 05/06/2021 10:07 PM EST [facility] Swab Nasopharyngeal structure / Unknown Non-blood Collection / Unknown 05/06/2021 10:05 AM EST 05/06/2021 10:10 AM EST Narrative [facility] - 05/06/2021 10:07 PM EST This assay is for in vitro diagnostic use under FDA emergency use authorization only. Negative results do not preclude infection with the SARS CoV-2 virus and should not be the sole basis of a patient treatment/management or public health decision. Follow up testing should be performed according to the current CDC recommendations. This test was performed using the [employer] M2000 SARS CoV-2 test, a qualitative PCR-based assay. The limit of detection (LoD) for this assay is 100 copies/mL. Negative results should be considered presumptive and do not preclude current or future infection obtained through community transmission or other exposures. Negative results must be considered in the context of an individual's recent exposures, history, presence of clinical signs and symptoms consistent with COVID-19. Yamini Belcher APRN LAB MICROBIOLOGY - GENERAL OR DERABLES Final Result Performing Organization Address [facility] Co de Phone Number [facility] [address] [place] [address] * (ABNORMAL) POCT glucose meter (05/06/2021 7:26 AM EST) POCT Glucose 112(H) 74 - 99 mg/dL 05/06/2021 7:30 AM EST [facility] Comment:Accuracy of a glucos e result obtained from a capillary whole blood specimen relies upon adequate, non-compromised capillary blood flow. If the capillary glucose result is not consistent with the patient's clinical signs and symptoms, glucose testing should be repeated with either an arterial or venous sample on the glucometer or sent to the main labortory for testing. Comment 05/06/2021 7:30 AM EST [facility] Structural Worker ID Iram Phillips 05/06/2021 7:30 AM EST [facility] Device ID [id number] 05/06/2021 7:30 AM EST [facility] Specimen Type POC Capillary 05/06/2021 7:30 AM EST [facility] Blood Capillary blood specimen / Unknown 05/06/2021 7:26 AM EST 05/06/2021 7:30 AM EST Dory Slade MD LAB POINT OF CARE TEST DOCKED DEVICE UNSOLICITED RESULTS Final Result Performing Organization Address [facility] Co de Phone Number [facility] [address] [place] [address] * (ABNORMAL) POCT glucose meter (05/05/2021 7:26 PM EST) POCT Glucose 109(H) 74 - 99 mg/dL 05/05/2021 7:30 PM EST [facility] Comment:Accuracy of a glucos e result obtained from a capillary whole blood specimen relies upon adequate, non-compromised capillary blood flow. If the capillary glucose result is not consistent with the patient's clinical signs and symptoms, glucose testing should be repeated with either an arterial or venous sample on the glucometer or sent to the main labortory for testing. Comment 05/05/2021 7:30 PM EST [facility] Structural Worker ID Sandra Araujo [id number] 7:30 PM EST [facility] Device ID [id number] 05/05/2021 7:30 PM EST [facility] Specimen Type POC Capillary 05/05/2021 7:30 PM EST [facility] Blood Capillary blood specimen / Unknown 05/05/2021 7:26 PM EST 05/05/2021 7:30 PM EST us Dory Slade MD LAB POINT OF CARE TEST DOCKED DEVICE UNSOLICITED RESULTS Final Result Performing Organization Address [facility] de Phone Number [facility] [address] [place] [address] * (ABNORMAL) POCT glucose meter (05/05/2021 6:22 PM EST) [facility] POCT Glucose 145(H) 74 - 99 mg/dL 05/05/2021 6:25 PM EST [facility] Comment:Accuracy of a glucos e result obtained from a capillary whole blood specimen relies upon adequate, non-compromised capillary blood flow. If the capillary glucose result is not consistent with the patient's clinical signs and symptoms, glucose testing should be repeated with either an arterial or venous sample on the glucometer or sent to the main labortory for testing. Comment 05/05/2021 6:25 PM EST [facility] Structural Worker ID Keeley Womack 05/05/20 6:25 PM EST [facility] Device ID [id number] 05/05/2021 6:25 PM EST [facility] Specimen Type POC Capillary 05/05/2021 6:25 PM EST [facility] Blood Capillary blood specimen / Unknown 05/05/2021 6:22 PM EST 05/05/2021 6:25 PM EST us Dory Slade MD LAB POINT OF CARE TEST DOCKED DEVICE UNSOLICITED RESULTS Final Result Performing Organization Address City/[facility] Co de Phone Number [facility] [address] [place] [address] * (ABNORMAL) POCT glucose meter (05/05/2021 4:52 PM EST) [facility] POCT Glucose 71(L) 74 - 99 mg/dL 05/05/2021 4:55 PM EST [facility] Comment:Accuracy of a glucos e result obtained from a capillary whole blood specimen relies upon adequate, non-compromised capillary blood flow. If the capillary glucose result is not consistent with the patient's clinical signs and symptoms, glucose testing should be repeated with either an arterial or venous sample on the glucometer or sent to the main labortory for testing. Comment 05/05/2021 4:55 PM EST [facility] Structural Worker ID Keeley Womack 05/05/20 4:55 PM EST [facility] Device ID [id number] 05/05/2021 4:55 PM EST [facility] Specimen Type POC Capillary 05/05/2021 4:55 PM EST [facility] Blood Capillary blood specimen / Unknown 05/05/2021 4:52 PM EST 05/05/2021 4:55 PM EST Dory Slade MD LAB POINT OF CARE TEST DOCKED DEVICE UNSOLICITED RESULTS Final Result [facility] [address] [place] [address] * (ABNORMAL) POCT glucose meter (05/05/2021 11:20 AM EST) [facility] POCT Glucose 134(H) 74 - 99 mg/dL 05/05/2021 11:25 AM EST [facility] Comment:Accuracy of a glucos e result obtained from a capillary whole blood specimen relies upon adequate, non-compromised capillary blood flow. If the capillary glucose result is not consistent with the patient's clinical signs and symptoms, glucose testing should be repeated with either an arterial or venous sample on the glucometer or sent to the main labortory for testing. Comment 05/05/2021 11:25 AM EST [facility] Structural Worker ID Keeley Womack 05/05/20 11:25 AM EST [facility] Device ID [id number] 05/05/2021 11:25 AM EST [facility] Specimen Type POC Capillary 05/05/2021 11:25 AM EST [facility] Blood Capillary blood specimen / Unknown 05/05/2021 11:20 AM EST 05/05/2021 11:25 AM EST us Dory Slade MD LAB POINT OF CARE TEST DOCKED DEVICE UNSOLICITED RESULTS Final Result Performing Organization Address City/[facility] Co de Phone Number [facility] [address] [place] [address] * (ABNORMAL) POCT glucose meter (05/05/2021 7:38 AM EST) POCT Glucose 113(H) 74 - 99 mg/dL 05/05/2021 7:40 AM EST [facility] Comment:Accuracy of a glucos e result obtained from a capillary whole blood specimen relies upon adequate, non-compromised capillary blood flow. If the capillary glucose result is not consistent with the patient's clinical signs and symptoms, glucose testing should be repeated with either an arterial or venous sample on the glucometer or sent to the main labortory for testing. Comment 05/05/2021 7:40 AM EST [facility] Structural Worker ID Keeley Womack 05/05/20 7:40 AM EST [facility] Device ID [id number] 05/05/2021 7:40 AM EST [facility] Specimen Type POC Capillary 05/05/2021 7:40 AM EST [facility] Blood Capillary blood specimen / Unknown 05/05/2021 7:38 AM EST 05/05/2021 7:40 AM EST us Dory Slade MD LAB POINT OF CARE TEST DOCKED DEVICE UNSOLICITED RESULTS Final Result Performing Organization Address City/[facility]/ZIP Co de Phone Number [facility] [address] [place] [address] * (ABNORMAL) POCT glucose meter (05/04/2021 10:04 PM EST) POCT Glucose 144(H) 74 - 99 mg/dL 05/04/2021 10:10 PM EST [facility] Comment:Accuracy of a glucos e result obtained from a capillary whole blood specimen relies upon adequate, non-compromised capillary blood flow. If the capillary glucose result is not consistent with the patient's clinical signs and symptoms, glucose testing should be repeated with either an arterial or venous sample on the glucometer or sent to the main labortory for testing. Comment 05/04/2021 10:10 PM EST [facility] Structural Worker ID Xenia Hummel 05/04/2021 10:10 PM EST [facility] Device ID [id number] 05/04/2021 10:10 PM EST [facility] Specimen Type POC Capillary 05/04/2021 10:10 PM EST [facility] Blood Capillary blood specimen / Unknown 05/04/2021 10:04 PM EST 05/04/2021 10:10 PM EST Dory Slade MD LAB POINT OF CARE TEST DOCKED DEVICE UNSOLICITED RESULTS Final Result Performing Organization Address City/[facility] Co de Phone Number [facility] [address] [place] [address] * Urinalysis Microscopic Examination (05/04/2021 4:52 PM EST) Urine Urine specimen obtained by clean catch procedure / Unknown Non-blood Collection / Unknown 05/04/2021 4:52 PM EST 05/04/2021 5:02 PM EST Gabby Pratt WELD ENGINEER, DNP LAB URINE ORDERABLES Fi nal Result Performing Organization Address City/[facility] Co de Phone Number [facility] [address] [place] [address] * (ABNORMAL) Urinalysis with reflex microscopic (05/04/2021 4:52 PM EST) Color, Urine Yellow LAB URINALYSIS - AUTOMATED METHOD 05/04/2021 5:11 PM EST [facility] Clarity, Urine Clear LAB URINALYSIS - AUTOMATED METHOD 05/04/2021 5:11 PM EST [facility] Spec [place], Urine 1.019 <=1.005 to >=1.030 LAB URINALYSIS - AUTOMATED METHOD 05/04/2021 5:11 PM EST [facility] pH, Urine 6.5 4.5 to 8 LAB URINALYSIS - AUTOMATED METHOD 05/04/2021 5:11 PM EST [facility] [facility] Protein, Urine Negative Negative mg/dL LAB URINALYSIS - AUTOMATED METHOD 05/04/2021 5:11 PM [facility] Glucose, Urine Negative Negative mg/dL LAB URINALYSIS - AUTOMATED METHOD 05/04/2021 5:11 PM [facility] Ketones, Urine Negative Negative mg/dL LAB URINALYSIS - AUTOMATED METHOD 05/04/2021 5:11 PM [facility] Blood, Urine Negative Negative LAB URINALYSIS - AUTOMATED METHOD 05/04/2021 5:11 PM [facility] Bilirubin, Urine Negative Negative LAB URINALYSIS - AUTOMATED METHOD 05/04/2021 5:11 PM [facility] Urobilinogen, Urine 1.0 0.2 to 1.0 mg/dL LAB URINALYSIS - AUTOMATED METHOD 05/04/2021 5:11 PM [facility] Leukocytes, Urine Trace(A) Negative LAB URINALYSIS - AUTOMATED METHOD 05/04/2021 5:11 PM [facility] Nitrite, Urine Negative Negative LAB URINALYSIS - AUTOMATED METHOD 05/04/2021 5:11 PM [facility] RBC, Urine 2 0 to 3 /HPF LAB URINALYSIS - AUTOMATED METHOD 05/04/2021 5:11 PM [facility] Comment:This result was prev iously suppressed from the chart. WBC, Urine 0 - 5 0 to 5 /HPF LAB URINALYSIS - AUTOMATED METHOD 05/04/2021 5:11 PM [facility] Comment:This result was prev iously suppressed from the chart. Squamous Epithelial Cells 0 - 5 0 to 5 /HPF LAB URINALYSIS - AUTOMATED METHOD 05/04/2021 5:11 PM [facility] Comment:This result was prev iously suppressed from the chart. Hyaline Casts 0 - 8 0 to 8 /LPF LAB URINALYSIS - AUTOMATED METHOD 05/04/2021 5:11 PM [facility] Comment:This result was prev iously suppressed from the chart. Bacteria, Urine Negative Negative LAB URINALYSIS - AUTOMATED METHOD 05/04/2021 5:11 PM [facility] Comment:This result was prev iously suppressed from the chart. Urine Urine specimen obtained by clean catch procedure / Unknown Non-blood Collection / Unknown 05/04/2021 4:52 PM EST 05/04/2021 5:02 PM EST us Gabby Pratt WELD ENGINEER, DNP LAB URINE ORDERABLES Fi nal Result Performing Organization Address [facility] Co de Phone Number [facility] [address] [place] [address] * (ABNORMAL) POCT glucose meter (05/04/2021 4:42 PM EST) POCT Glucose 113(H) 74 - 99 mg/dL 05/04/2021 4:45 PM EST [facility] Comment:Accuracy of a glucos e result obtained from a capillary whole blood specimen relies upon adequate, non-compromised capillary blood flow. If the capillary glucose result is not consistent with the patient's clinical signs and symptoms, glucose testing should be repeated with either an arterial or venous sample on the glucometer or sent to the main labortory for testing. Comment 05/04/2021 4:45 PM EST [facility] Structural Worker ID Tereza Feng 05/04/2021 4:45 PM EST [facility] Device ID [id number] 05/04/2021 4:45 PM EST [facility] Specimen Type POC Capillary 05/04/2021 4:45 PM EST [facility] Blood Capillary blood specimen / Unknown 05/04/2021 4:42 PM EST 05/04/2021 4:45 PM EST Dory Slade MD LAB POINT OF CARE TEST DOCKED DEVICE UNSOLICITED RESULTS Final Result Performing Organization Address [facility] Phone Number [facility] [address] [place] [address] * (ABNORMAL) POCT glucose meter (05/04/2021 11:44 AM EST) POCT Glucose 102(H) 74 - 99 mg/dL 05/04/2021 11:50 AM EST [facility] Comment:Accuracy of a glucos e result obtained from a capillary whole blood specimen relies upon adequate, non-compromised capillary blood flow. If the capillary glucose result is not consistent with the patient's clinical signs and symptoms, glucose testing should be repeated with either an arterial or venous sample on the glucometer or sent to the main labortory for testing. Comment 05/04/2021 11:50 AM EST [facility] Structural Worker ID Keeley Womack 05/04/20 11:50 AM EST [facility] Device ID [id number] 05/04/2021 11:50 AM EST [facility] Specimen Type POC Capillary 05/04/2021 11:50 AM EST [facility] Blood Capillary blood specimen / Unknown 05/04/2021 11:44 AM EST 05/04/2021 11:50 AM EST Dory Slade MD LAB POINT OF CARE TEST DOCKED DEVICE UNSOLICITED RESULTS Final Result Performing Organization Address City/[facility] de Phone Number [facility] [address] [place] [address] * (ABNORMAL) POCT glucose meter (05/04/2021 7:25 AM EST) Pathologist [facility] POCT Glucose 119(H) 74 - 99 mg/dL 05/04/2021 7:30 AM EST [facility] Comment:Accuracy of a glucos e result obtained from a capillary whole blood specimen relies upon adequate, non-compromised capillary blood flow. If the capillary glucose result is not consistent with the patient's clinical signs and symptoms, glucose testing should be repeated with either an arterial or venous sample on the glucometer or sent to the main labortory for testing. Comment 05/04/2021 7:30 AM EST [facility] Structural Worker ID Keeley Womack 05/04/20 7:30 AM EST [facility] Device ID [id number] 05/04/2021 7:30 AM EST [facility] Specimen Type POC Capillary 05/04/2021 7:30 AM EST [facility] Blood Capillary blood specimen / Unknown 05/04/2021 7:25 AM EST 05/04/2021 7:30 AM EST us Dory Slade MD LAB POINT OF CARE TEST DOCKED DEVICE UNSOLICITED RESULTS Final Result Performing Organization Address City/[facility] Co de Phone Number [facility] [address] [place] [address] * Aspartate Aminotransferase, Plasma (05/04/2021 5:50 AM EST) Pathologist [facility] AST, Plasma 21 11 - 32 U/L 05/04/2021 6:35 AM EST [facility] Blood Venous blood specimen / Unknown Venipuncture / Unknown 05/04/2021 5:50 AM EST 05/04/2021 6:01 AM EST us Gabby Pratt APRN, DNP LAB BLOOD ORDERABLES Fi nal Result Performing Organization Address City/[facility] Co de Phone Number [facility] [address] [place] [address] * (ABNORMAL) Alanine Aminotransferase, Plasma (05/04/2021 5:50 AM EST) Pathologist [facility] ALT, Plasma 57(H) 8 - 33 U/L 05/04/2021 6:35 AM EST [facility] Blood Venous blood specimen / Unknown Venipuncture / Unknown 05/04/2021 5:50 AM EST 05/04/2021 6:01 AM EST us Gabby Pratt APRN, [facility] LAB BLOOD ORDERABLES Fi nal Result Performing Organization Address City/[facility] Phone Number [facility] [address] [place] [address] * POCT glucose meter (05/03/2021 8:17 PM EST) [facility] POCT Glucose 92 74 - 99 mg/dL 05/03/2021 8:20 PM EST [facility] Comment:Accuracy of a glucos e result obtained from a capillary whole blood specimen relies upon adequate, non-compromised capillary blood flow. If the capillary glucose result is not consistent with the patient's clinical signs and symptoms, glucose testing should be repeated with either an arterial or venous sample on the glucometer or sent to the main labortory for testing. Comment 05/03/2021 8:20 PM EST [facility] Structural Worker ID Irene Cantor 05/03/2021 8:20 PM EST [facility] Device ID [id number] 05/03/2021 8:20 PM EST [facility] Specimen Type POC Capillary 05/03/2021 8:20 PM EST [facility] Blood Capillary blood specimen / Unknown 05/03/2021 8:17 PM EST 05/03/2021 8:20 PM EST Dory Slade MD LAB POINT OF CARE TEST DOCKED DEVICE UNSOLICITED RESULTS Final Result Performing Organization Address [facility] de Phone Number [facility] [address] [place] [address] * (ABNORMAL) POCT glucose meter (05/03/2021 5:35 PM EST) POCT Glucose 170(H) 74 - 99 mg/dL 05/03/2021 5:40 PM EST [facility] Comment:Accuracy of a glucos e result obtained from a capillary whole blood specimen relies upon adequate, non-compromised capillary blood flow. If the capillary glucose result is not consistent with the patient's clinical signs and symptoms, glucose testing should be repeated with either an arterial or venous sample on the glucometer or sent to the main labortory for testing. Comment 05/03/2021 5:40 PM EST [facility] Structural Worker ID Dahlia Velasco 05/03/2021 5:40 PM EST [facility] Device ID [id number] 05/03/2021 5:40 PM EST [facility] Specimen Type POC Capillary 05/03/2021 5:40 PM EST [facility] Blood Capillary blood specimen / Unknown 05/03/2021 5:35 PM EST 05/03/2021 5:40 PM EST Dory Slade MD LAB POINT OF CARE TEST DOCKED DEVICE UNSOLICITED RESULTS Final Result Performing Organization Address [facility] de Phone Number [facility] [address] [place] [address] * POCT glucose meter (05/03/2021 12:14 PM EST) POCT Glucose 92 74 - 99 mg/dL 05/03/2021 12:15 PM EST [facility] Comment:Accuracy of a glucos e result obtained from a capillary whole blood specimen relies upon adequate, non-compromised capillary blood flow. If the capillary glucose result is not consistent with the patient's clinical signs and symptoms, glucose testing should be repeated with either an arterial or venous sample on the glucometer or sent to the main labortory for testing. Comment 05/03/2021 12:15 PM EST [facility] Structural Worker ID Keeley Womack 05/03/20 12:15 PM EST [facility] Device ID [id number] 05/03/2021 12:15 PM EST [facility] Specimen Type POC Capillary 05/03/2021 12:15 PM EST [facility] Blood Capillary blood specimen / Unknown 05/03/2021 12:14 PM EST 05/03/2021 12:15 PM EST us Dory Slade MD LAB POINT OF CARE TEST DOCKED DEVICE UNSOLICITED RESULTS Final Result Performing Organization Address City/[facility]/ZIP Co de Phone Number [facility] [address] [place] [address] * POCT glucose meter (05/03/2021 8:08 AM EST) Pathologist [facility] POCT Glucose 87 74 - 99 mg/dL 05/03/2021 8:10 AM EST [facility] Comment:Accuracy of a glucos e result obtained from a capillary whole blood specimen relies upon adequate, non-compromised capillary blood flow. If the capillary glucose result is not consistent with the patient's clinical signs and symptoms, glucose testing should be repeated with either an arterial or venous sample on the glucometer or sent to the main labortory for testing. Comment 05/03/2021 8:10 AM EST [facility] Structural Worker ID Keeley Womack 05/03/20 8:10 AM EST [facility] Device ID [id number] 05/03/2021 8:10 AM EST [facility] Specimen Type POC Capillary 05/03/2021 8:10 AM EST [facility] Blood Capillary blood specimen / Unknown 05/03/2021 8:08 AM EST 05/03/2021 8:10 AM EST us Dory Slade MD LAB POINT OF CARE TEST DOCKED DEVICE UNSOLICITED RESULTS Final Result [facility] [address] [place] [address] * POCT glucose meter (05/03/2021 6:07 AM EST) POCT Glucose 96 74 - 99 mg/dL 05/03/2021 6:10 AM EST [facility] Comment:Accuracy of a glucos e result obtained from a capillary whole blood specimen relies upon adequate, non-compromised capillary blood flow. If the capillary glucose result is not consistent with the patient's clinical signs and symptoms, glucose testing should be repeated with either an arterial or venous sample on the glucometer or sent to the main labortory for testing. Comment 05/03/2021 6:10 AM EST [facility] Structural Worker ID Shaquille Mak 05/03/2021 6:10 AM EST [facility] Device ID [id number] 05/03/2021 6:10 AM EST [facility] Specimen Type POC Capillary 05/03/2021 6:10 AM EST [facility] Blood Capillary blood specimen / Unknown 05/03/2021 6:07 AM EST 05/03/2021 6:10 AM EST Dory Slade MD LAB POINT OF CARE TEST DOCKED DEVICE UNSOLICITED RESULTS Final Result Performing Organization Address City/State/[facility] Co de Phone Number [facility] [address] [place] [address] * (ABNORMAL) POCT glucose meter (05/02/2021 9:15 PM EST) [facility] POCT Glucose 102(H) 74 - 99 mg/dL 05/02/2021 9:20 PM EST [facility] Comment:Accuracy of a glucos e result obtained from a capillary whole blood specimen relies upon adequate, non-compromised capillary blood flow. If the capillary glucose result is not consistent with the patient's clinical signs and symptoms, glucose testing should be repeated with either an arterial or venous sample on the glucometer or sent to the main labortory for testing. Comment 05/02/2021 9:20 PM EST [facility] Structural Worker ID Shana Bean 05/02/2021 9:20 PM EST [facility] Device ID [id number] 05/02/2021 9:20 PM EST [facility] Specimen Type POC Capillary 05/02/2021 9:20 PM EST [facility] Blood Capillary blood specimen / Unknown 05/02/2021 9:15 PM EST 05/02/2021 9:20 PM EST Doyr Slade MD LAB POINT OF CARE TEST DOCKED DEVICE UNSOLICITED RESULTS Final Result Performing Organization Address City/[facility] de Phone Number [facility] [address] [place] [address] * (ABNORMAL) POCT glucose meter (05/02/2021 3:20 PM EST) POCT Glucose 133(H) 74 - 99 mg/dL 05/02/2021 3:25 PM EST [facility] Comment:Accuracy of a glucos e result obtained from a capillary whole blood specimen relies upon adequate, non-compromised capillary blood flow. If the capillary glucose result is not consistent with the patient's clinical signs and symptoms, glucose testing should be repeated with either an arterial or venous sample on the glucometer or sent to the main labortory for testing. Comment 05/02/2021 3:25 PM EST [facility] Structural Worker ID Betty Coronado 05/02/2021 3:25 PM EST [facility] Device ID [id number] 05/02/2021 3:25 PM EST [facility] Specimen Type POC Capillary 05/02/2021 3:25 PM EST [facility] Blood Capillary blood specimen / Unknown 05/02/2021 3:20 PM EST 05/02/2021 3:25 PM EST Dory Slade MD LAB POINT OF CARE TEST DOCKED DEVICE UNSOLICITED RESULTS Final Result Performing Organization Address City/[facility] de Phone Number [facility] [address] [place] [address] * (ABNORMAL) POCT glucose meter (05/02/2021 11:26 AM EST) POCT Glucose 102(H) 74 - 99 mg/dL 05/02/2021 11:45 AM EST [facility] Comment:Accuracy of a glucos e result obtained from a capillary whole blood specimen relies upon adequate, non-compromised capillary blood flow. If the capillary glucose result is not consistent with the patient's clinical signs and symptoms, glucose testing should be repeated with either an arterial or venous sample on the glucometer or sent to the main labortory for testing. Comment 05/02/2021 11:45 AM EST [facility] Structural Worker ID Betty Coronado 05/02/2021 11:45 AM EST [facility] Device ID [id number] 05/02/2021 11:45 AM EST [facility] Specimen Type POC Capillary 05/02/2021 11:45 AM EST [facility] Blood Capillary blood specimen / Unknown 05/02/2021 11:26 AM EST 05/02/2021 11:45 AM EST us Dory Slade MD LAB POINT OF CARE TEST DOCKED DEVICE UNSOLICITED RESULTS Final Result Performing Organization Address City/[facility] Co de Phone Number [facility] [address] [place] [address] * (ABNORMAL) POCT glucose meter (05/02/2021 8:08 AM EST) [facility] POCT Glucose 118(H) 74 - 99 mg/dL 05/02/2021 8:15 AM EST [facility] Comment:Accuracy of a glucos e result obtained from a capillary whole blood specimen relies upon adequate, non-compromised capillary blood flow. If the capillary glucose result is not consistent with the patient's clinical signs and symptoms, glucose testing should be repeated with either an arterial or venous sample on the glucometer or sent to the main labortory for testing. Comment 05/02/2021 8:15 AM EST [facility] Structural Worker ID Betty Coronado 05/02/2021 8:15 AM EST [facility] Device ID [id number] 05/02/2021 8:15 AM EST [facility] Specimen Type POC Capillary 05/02/2021 8:15 AM EST [facility] Blood Capillary blood specimen / Unknown 05/02/2021 8:08 AM EST 05/02/2021 8:15 AM EST us Ji Matos MD LAB POINT OF CARE TE ST DOCKED DEVICE UNSOLICITED RESULTS Final Result Performing Organization Address City/[facility]/ZIP Co de Phone Number [facility] [address] [place] [address] * (ABNORMAL) Alanine Aminotransferase, Plasma (05/02/2021 3:59 AM EST) ALT, Plasma 152(H) 8 - 33 U/L 05/02/2021 12:38 PM EST [facility] Blood Venous blood specimen / Unknown Venipuncture / Unknown 05/02/2021 3:59 AM EST 05/02/2021 4:21 AM EST us Gabby Pratt APRN, DNP LAB BLOOD ORDERABLES Fi nal Result Performing Organization Address [facility] Co de Phone Number [facility] [address] [place] [address] * (ABNORMAL) Aspartate Aminotransferase, Plasma (05/02/2021 3:59 AM EST) AST, Plasma 117(H) 11 - 32 U/L 05/02/2021 12:38 PM EST [facility] Blood Venous blood specimen / Unknown Venipuncture / Unknown 05/02/2021 3:59 AM EST 05/02/2021 4:21 AM EST us Gabby Pratt APRN, DNP LAB BLOOD ORDERABLES Fi nal Result Performing Organization Address [facility] Phone Number [facility] [address] [place] [address] * (ABNORMAL) Basic metabolic panel (05/02/2021 3:59 AM EST) Glucose, Plasma 130(H) 74 - 99 mg/dL 05/02/2021 4:50 AM EST [facility] BUN, Plasma 13 7 - 21 mg/dL 05/02/2021 4:50 AM EST [facility] Creatinine, Plasma 0.81 0.60 - 1.10 mg/dL 05/02/2021 4:50 AM EST [facility] BUN/Creatinine Ratio 16 05/02/2021 4:50 AM EST [facility] Sodium, Plasma 139 136 - 145 mmol/L 05/02/2021 4:50 AM EST [facility] Potassium, Plasma 4.3 3.7 - 4.8 mmol/L 05/02/2021 4:50 AM EST [facility] Chloride, Plasma 103 97 - 107 mmol/L 05/02/2021 4:50 AM EST [facility] CO2, Plasma 27 22 - 29 mmol/L 05/02/2021 4:50 AM EST [facility] Anion Gap 9 6 - 16 mmol/L 05/02/2021 4:50 AM EST [facility] Total Calcium, Plasma 8.7(L) 8.9 - 10.2 mg/dL 05/02/2021 4:50 AM EST [facility] eGFR >60 >60 mL/min/1.7 3m*2 05/02/2021 4:50 AM EST [facility] Comment:eGFR = estimated GFR ; eGFR units = mL/min/1.73 sq meters Chronic Kidney Disease is considered if eGFR <60 mL/min/1.73 sq meters Kidney failure is considered if eGFR is <15 mL/min/1.73 sq meters. eGFR assumes steady state plasma creatinine concentration; not applicable if renal function is rapidly changing or patient is on dialysis. eGFR, if AFR/AM >60 >60 mL/min/1.7 3m*2 05/02/2021 4:50 AM EST [facility] Comment:eGFR = estimated GFR ; eGFR units = mL/min/1.73 sq meters Chronic Kidney Disease is considered if eGFR <60 mL/min/1.73 sq meters Kidney failure is considered if eGFR is <15 mL/min/1.73 sq meters. eGFR assumes steady state plasma creatinine concentration; not applicable if renal function is rapidly changing or patient is on dialysis. Blood Venous blood specimen / Unknown Venipuncture / Unknown 05/02/2021 3:59 AM EST 05/02/2021 4:21 AM EST us Ava Joseph RN LAB BLOOD ORDERABLES Final Resul t [facility] [address] [place] [address] * (ABNORMAL) CBC W/O Differential (05/02/2021 3:59 AM EST) WBC Count 9.98 3.70 - 10.30 10*3/uL LAB HEMATOLOGY METHOD 05/02/2021 4:48 AM EST [facility] RBC Count 3.26(L) 3.90 - 5.20 10*6/uL LAB HEMATOLOGY METHOD 05/02/2021 4:48 AM EST [facility] HGB 10.1(L) 11.2 - 15.7 g/dL LAB HEMATOLOGY METHOD 05/02/2021 4:48 AM EST [facility] HCT 31.5(L) 34.0 - 45.0 % LAB HEMATOLOGY METHOD 05/02/2021 4:48 AM EST [facility] Platelet Count 243 155 - 369 10*3/uL LAB HEMATOLOGY METHOD 05/02/2021 4:48 AM EST [facility] MCV 97 79 - 98 fL LAB HEMATOLOGY METHOD 05/02/2021 4:48 AM EST [facility] MCH 31.0 26.0 - 32.0 pg LAB HEMATOLOGY METHOD 05/02/2021 4:48 AM EST [facility] MCHC 32.1 30.7 - 35.5 g/dL LAB HEMATOLOGY METHOD 05/02/2021 4:48 AM EST [facility] RDW 13.5 11.5 - 14.5 % LAB HEMATOLOGY METHOD 05/02/2021 4:48 AM EST [facility] MPV 11.1 8.8 - 12.5 fL LAB HEMATOLOGY METHOD 05/02/2021 4:48 AM EST [facility] nRBC 0.0 <=0.0 per 100 WBCs LAB HEMATOLOGY METHOD 05/02/2021 4:48 AM EST [facility] Blood Venous blood specimen / Unknown Venipuncture / Unknown 05/02/2021 3:59 AM EST 05/02/2021 4:25 AM EST us Ava Joseph RN LAB BLOOD ORDERABLES Final Resul t Performing Organization Address City/State/[facility] Co de Phone Number [facility] [address] [place] [address] * (ABNORMAL) POCT glucose meter (05/01/2021 9:11 PM EST) POCT Glucose 141(H) 74 - 99 mg/dL 05/01/2021 9:15 PM EST [facility] Comment:Accuracy of a glucos e result obtained from a capillary whole blood specimen relies upon adequate, non-compromised capillary blood flow. If the capillary glucose result is not consistent with the patient's clinical signs and symptoms, glucose testing should be repeated with either an arterial or venous sample on the glucometer or sent to the main labortory for testing. Comment 05/01/2021 9:15 PM EST [facility] Structural Worker ID Kyra Lockwood 05/01/2021 9:15 PM EST [facility] Device ID [id number] 05/01/2021 9:15 PM EST [facility] Specimen Type POC Capillary 05/01/2021 9:15 PM EST [facility] Blood Capillary blood specimen / Unknown 05/01/2021 9:11 PM EST 05/01/2021 9:15 PM EST us Ji Matos MD LAB POINT OF CARE TE ST DOCKED DEVICE UNSOLICITED RESULTS Final Result Performing Organization Address City/State/[facility] Co de Phone Number [facility] [address] [place] [address] * XR Femur Left 2+ Views (05/01/2021 6:20 PM EST) Anatomical Region Laterality Modality Lower Extremities, Femur Left Digital Radiography Impressions 05/01/2021 11:26 PM EST Near-anatomic alignment of distal femoral fracture post nailing. CRITICAL RESULT: ?? No. COMMUNICATION: Per this written report. Signed by Tad Hou on ??05/01/2021 11:26 PM Narrative 05/01/2021 11:26 PM EST Exam/Procedure: XR FEMUR LEFT 2+ VIEWS ordered by JI MATOS [id number] CLINICAL INDICATION: post op TECHNIQUE: XR FEMUR LEFT 2+ VIEWS COMPARISON: 30 April 2021 FINDINGS: Normal retrograde nail placement with near-anatomic alignment of distal femoral fracture. Total knee arthroplasty is seen. Intra-articular gas at the level of the knee with anterior soft tissue gas at the proximal tibia. Procedure Note Tad Hou MD - 05/01/2021 Exam/Procedure: XR FEMUR LEFT 2+ VIEWS ordered by JI [id number] CLINICAL INDICATION: post op TECHNIQUE: XR FEMUR LEFT 2+ VIEWS COMPARISON: 30 April 2021 FINDINGS: Normal retrograde nail placement with near-anatomic alignment of distalfemoral fracture. Total knee arthroplasty is seen. Intra-articular gas atthe level of the knee with anterior soft tissue gas at the proximaltibia. IMPRESSION: Near-anatomic alignment of distal femoral fracture post nailing. CRITICAL RESULT: No. COMMUNICATION: Per this written report. Signed by Tad Hou on 05/01/2021 11:26 PM us Ji Matos MD IMG XR PROCEDURES Final Resul t * (ABNORMAL) POCT glucose meter (05/01/2021 3:53 PM EST) POCT Glucose 120(H) 74 - 99 mg/dL 05/01/2021 3:55 PM EST [facility] Comment:Accuracy of a glucos e result obtained from a capillary whole blood specimen relies upon adequate, non-compromised capillary blood flow. If the capillary glucose result is not consistent with the patient's clinical signs and symptoms, glucose testing should be repeated with either an arterial or venous sample on the glucometer or sent to the main labortory for testing. Comment 05/01/2021 3:55 PM [facility] Structural Worker ID Tresa Jones [id number] 3:55 PM EST [facility] Device ID [id number] 05/01/2021 3:55 PM EST [facility] Specimen Type POC Capillary 05/01/2021 3:55 PM EST [facility] Blood Capillary blood specimen / Unknown 05/01/2021 3:53 PM EST 05/01/2021 3:55 PM EST Ji Matos MD LAB POINT OF CARE TE ST DOCKED DEVICE UNSOLICITED RESULTS Final Result Performing Organization Address City/[facility]/ZIP Co de Phone Number [facility] [address] [place] [address] * [place] Less than 1 Hour Intraoperative (05/01/2021 3:26 PM EST) Narrative IMAGING - 05/01/2021 3:26 PM EST Images were obtained for surgical purposes. ??See Bebeto Flynn's surgical note in the the patient's chart for the findings. Bebeto Flynn MD IMG FLUOROSCOPY PROCEDURES Porsche l Result IMAGING * Hemoglobin A1c (05/01/2021 2:21 AM EST) Hemoglobin A1c 5.5 <5.7 % 05/01/2021 12:36 PM EST [facility] Blood Venous blood specimen / Unknown Venipuncture / Unknown 05/01/2021 2:21 AM EST 05/01/2021 2:26 AM EST Narrative [facility] - 05/01/2021 12:36 PM EST HA1C Interpretive Data: Diagnosis of Diabetes: Diabetic > or = 6.5% Pre-diabetic 5.7 to 6.4% Non-diabetic < or = 5.6% Glycemic Targets for Type I and Type II Diabetics: Non- Adults <7.0% Adults <6.0% Children and Adolescents <7.5% Source: ??[employer] Diabetes Association. Standards of medical care in diabetes,2017. Diabetes Care.2017:40 (suppl 1):S1-S135. HbA1c assay performed by an ion-exchange chromatography method that is certified traceable to the DCCT. Ji Matos MD LAB BLOOD ORDERABLES Final Re sult [facility] [address] [place] [address] * Protime-INR (05/01/2021 2:21 AM EST) Prothrombin Time 13.0 12.0 - 14.3 sec LAB COAGULATION METHOD 05/01/2021 2:59 AM EST [facility] INR 1.0 0.9 - 1.1 LAB COAGULATION METHOD 05/01/2021 2:59 AM EST [facility] Blood Venous blood specimen / Unknown Venipuncture / Unknown 05/01/2021 2:21 AM EST 05/01/2021 2:26 AM EST Narrative [facility] - 05/01/2021 2:59 AM EST OPTIMAL INR RANGES FOR PATIENT ON ORAL ANTICOAGULANT THERAPY Prevention of venous thromboembolism ?INR 2.0 to 3.0 In patients with heart disease: Atrial fibrillation ?INR 2.0 to 3.0 Valvular heart disease ? INR 2.0 to 3.0 Tissue heart valves ?INR 2.0 to 3.0 Mechanical prosthetic valves ? INR 2.5 to 3.5 Prevention of recurrent SC ? INR 2.5 to 3.5 Ji Matos MD LAB BLOOD ORDERABLES Final Re sult Performing Organization Address [facility] de Phone Number [facility] [address] [place] [address] * Phosphorus (05/01/2021 2:21 AM EST) Phosphorus, Plasma 3.8 2.5 - 4.5 mg/dL 05/01/2021 2:56 AM EST [facility] Blood Venous blood specimen / Unknown Venipuncture / Unknown 05/01/2021 2:21 AM EST 05/01/2021 2:27 AM EST Ji Matos MD LAB BLOOD ORDERABLES Final Re sult Performing Organization Address [facility] Phone Number [facility] [address] [place] [address] * (ABNORMAL) Magnesium (05/01/2021 2:21 AM EST) Magnesium, Plasma 1.8(L) 1.9 - 2.4 mg/dL 05/01/2021 2:56 AM EST [facility] Blood Venous blood specimen / Unknown Venipuncture / Unknown 05/01/2021 2:21 AM EST 05/01/2021 2:27 AM EST Ji Matos MD LAB BLOOD ORDERABLES Final Re sult Performing Organization Address [facility] de Phone Number [facility] [address] [place] [address] * (ABNORMAL) CBC (05/01/2021 2:21 AM EST) WBC Count 10.61(H) 3.70 - 10.30 10*3/uL LAB HEMATOLOGY METHOD 05/01/2021 2:34 AM EST [facility] RBC Count 4.03 3.90 - 5.20 10*6/uL LAB HEMATOLOGY METHOD 05/01/2021 2:34 AM EST [facility] HGB 12.1 11.2 - 15.7 g/dL LAB HEMATOLOGY METHOD 05/01/2021 2:34 AM EST [facility] HCT 37.9 34.0 - 45.0 % LAB HEMATOLOGY METHOD 05/01/2021 2:34 AM EST [facility] Platelet Count 289 155 - 369 10*3/uL LAB HEMATOLOGY METHOD 05/01/2021 2:34 AM EST [facility] MCV 94 79 - 98 fL LAB HEMATOLOGY METHOD 05/01/2021 2:34 AM EST [facility] MCH 30.0 26.0 - 32.0 pg LAB HEMATOLOGY METHOD 05/01/2021 2:34 AM EST [facility] MCHC 31.9 30.7 - 35.5 g/dL LAB HEMATOLOGY METHOD 05/01/2021 2:34 AM EST [facility] RDW 13.6 11.5 - 14.5 % LAB HEMATOLOGY METHOD 05/01/2021 2:34 AM EST [facility] MPV 10.3 8.8 - 12.5 fL LAB HEMATOLOGY METHOD 05/01/2021 2:34 AM EST [facility] nRBC 0.0 <=0.0 per 100 WBCs LAB HEMATOLOGY METHOD 05/01/2021 2:34 AM EST [facility] Blood Venous blood specimen / Unknown Venipuncture / Unknown 05/01/2021 2:21 AM EST 05/01/2021 2:26 AM EST us Ji Matos MD LAB BLOOD ORDERABLES Final Re sult [facility] [address] [place] [address] * (ABNORMAL) Basic Metabolic Panel (05/01/2021 2:21 AM EST) [facility] Glucose, Plasma 137(H) 74 - 99 mg/dL 05/01/2021 2:56 AM EST [facility] BUN, Plasma 20 7 - 21 mg/dL 05/01/2021 2:56 AM EST [facility] Creatinine, Plasma 0.85 0.60 - 1.10 mg/dL 05/01/2021 2:56 AM EST [facility] BUN/Creatinine Ratio 24 05/01/2021 2:56 AM EST [facility] Sodium, Plasma 140 136 - 145 mmol/L 05/01/2021 2:56 AM EST [facility] Potassium, Plasma 4.3 3.7 - 4.8 mmol/L 05/01/2021 2:56 AM EST [facility] Chloride, Plasma 105 97 - 107 mmol/L 05/01/2021 2:56 AM EST [facility] CO2, Plasma 23 22 - 29 mmol/L 05/01/2021 2:56 AM EST [facility] Anion Gap 12 6 - 16 mmol/L 05/01/2021 2:56 AM EST [facility] Total Calcium, Plasma 8.7(L) 8.9 - 10.2 mg/dL 05/01/2021 2:56 AM EST [facility] eGFR >60 >60 mL/min/1.7 3m*2 05/01/2021 2:56 AM EST [facility] Comment:eGFR = estimated GFR ; eGFR units = mL/min/1.73 sq meters Chronic Kidney Disease is considered if eGFR <60 mL/min/1.73 sq meters Kidney failure is considered if eGFR is <15 mL/min/1.73 sq meters. eGFR assumes steady state plasma creatinine concentration; not applicable if renal function is rapidly changing or patient is on dialysis. eGFR, if AFR/AM >60 >60 mL/min/1.7 3m*2 05/01/2021 2:56 AM EST [facility] Comment:eGFR = estimated GFR ; eGFR units = mL/min/1.73 sq meters Chronic Kidney Disease is considered if eGFR <60 mL/min/1.73 sq meters Kidney failure is considered if eGFR is <15 mL/min/1.73 sq meters. eGFR assumes steady state plasma creatinine concentration; not applicable if renal function is rapidly changing or patient is on dialysis. Blood Venous blood specimen / Unknown Venipuncture / Unknown 05/01/2021 2:21 AM EST 05/01/2021 2:27 AM EST us Ji Matos MD LAB BLOOD ORDERABLES Final Re sult [facility] [address] [place] [address] * (ABNORMAL) POCT glucose meter (04/30/2021 11:44 PM EST) Pathologist [facility] POCT Glucose 143(H) 74 - 99 mg/dL 04/30/2021 11:50 PM EST [facility] Comment:Accuracy of a glucos e result obtained from a capillary whole blood specimen relies upon adequate, non-compromised capillary blood flow. If the capillary glucose result is not consistent with the patient's clinical signs and symptoms, glucose testing should be repeated with either an arterial or venous sample on the glucometer or sent to the main labortory for testing. Comment 04/30/2021 11:50 PM EST [facility] Structural Worker ID Cassie Ford 04/30/2021 11:50 PM EST [facility] Device ID [id number] 04/30/2021 11:50 PM EST [facility] Specimen Type POC Capillary 04/30/2021 11:50 PM EST [facility] Blood Capillary blood specimen / Unknown 04/30/2021 11:44 PM EST 04/30/2021 11:50 PM EST Ji Matos MD LAB POINT OF CARE TE ST DOCKED DEVICE UNSOLICITED RESULTS Final Result [facility] [address] [place] [address] * Lactate, venous (04/30/2021 8:26 PM EST) Pathologist [facility] Lactate, Venous, Whole Blood 0.9 0.5 - 2.2 mmol/L LAB HEMATOLOGY METHOD 04/30/2021 8:32 PM EST [facility] Blood Venous blood specimen / Unknown Venipuncture / Unknown 04/30/2021 8:26 PM EST 04/30/2021 8:30 PM EST Clay Oviedo MD LAB BLOOD ORDERABLES Final Resul t [facility] [address] [place] [address] * CT Head wo IV Contrast (04/30/2021 4:58 PM EST) Anatomical Region Laterality Modality Head Computed Tomogra phy Impressions 04/30/2021 5:12 PM EST No evidence of acute intrarenal abnormality. Mild left parietal scalp contusion without underlying calvarial fracture. Report sent at 5:11 PM Kaushik Biswas M.D. This report has been electronically signed and verified by the Radiologist whose name is printed above. DD: ??04/30/2021/DT: ??04/30/2021 This report contains privileged and confidential information and is intended solely for the use of the individual or entity to which it is addressed. If you are not the intended recipient of this report, you are hereby notified that any copying, distribution, dissemination or action taken in relation to the contents of this report is strictly prohibited and may be unlawful. If you have received this report in error, please notify the sender immediately at [phone] and permanently delete the original report and destroy any copies or printouts. Narrative 04/30/2021 5:12 PM EST [facility] ? - Phone [facility] NAME: Ambika Pierre ?? DATE OF EXAM: 04/30/2021 Patient No: ??[id number] Physician: ??Carlo^Ji Date of : ??1965 Past Medical/Surgical History (entered by technologist): ?? Symptoms/Reason For Exam (entered by technologist): ??Head trauma, minor, normal mental status (Age 18-64y) Tech Notes (entered by technologist): no priors. Additional History (per [facility]): CT HEAD WO IV CONTRAST CLINICAL INDICATION: Head trauma, minor, normal mental status TECHNIQUE: Spiral axial CT images of the head were obtained without contrast administration. Total DLP (Dose-Length Product): 1013.3 . Please note: The reported value represents the total of one or more individual components during the CT acquisition on this date and at this time, and as such, the same value may appear in more than one CT report depending on the interpreting/reporting physicians. COMPARISON: None. FINDINGS: Diagnostic Quality: Adequate. The ventricles and sulci are normal in size. There is no acute large cortical infarct, intracranial hemorrhage or large mass on this noncontrast study. Possible small area of encephalomalacia and volume loss along the lateral aspect of the right frontal lobe. Soft Tissues: Mild left parietal scalp contusion. ??Akutan lens replacements. Skull: There are no calvarial destructive lesions or fractures. Sinuses and Mastoids: No significant paranasal sinus disease. ??Minimal mucosal thickening in the left sphenoid sinus. ??The mastoid air cells are clear. Procedure Note Wes Biswas MD - 04/30/2021 [facility] - Phone [facility] NAME: Ambika Pierre DATE OF EXAM: 04/30/2021 Patient No: [id number] Physician: Palmer Date of : 1965 Past Medical/Surgical History (entered by technologist): Symptoms/Reason For Exam (entered by technologist): Head trauma, minor,normal mental status (Age 19-64y) Tech Notes (entered by technologist): no priors. Additional History (per [facility]): CT HEAD WO IV CONTRAST CLINICAL INDICATION: Head trauma, minor, normal mental status TECHNIQUE: Spiral axial CT images of the head were obtained without contrastadministration. Total DLP (Dose-Length Product): 1013.3 . Please note: The reported valuerepresents the total of one or more individual components during the CTacquisition on this date and at this time, and as such, the same value mayappear in more than one CT report depending on the interpreting/reportingphysicians. COMPARISON: None. FINDINGS: Diagnostic Quality: Adequate. The ventricles and sulci are normal in size. There is no acute large cortical infarct, intracranial hemorrhage or largemass on this noncontrast study. Possible small area of encephalomalacia and volume loss along the lateralaspect of the right frontal lobe. Soft Tissues: Mild left parietal scalp contusion. Akutan lensreplacements. Skull: There are no calvarial destructive lesions or fractures. Sinuses and Mastoids: No significant paranasal sinus disease. Minimalmucosal thickening in the left sphenoid sinus. The mastoid air cells areclear. IMPRESSION: No evidence of acute intrarenal abnormality. Mild left parietal scalp contusion without underlying calvarialfracture. Report sent at 5:11 PM Kaushik Biswas M.D. This report has been electronically signed and verified by the Radiologistwhose name is printed above. / This report contains privileged and confidential information and isintended solely for the use of the individual or entity to which it isaddressed. If you are not the intended recipient of this report, you arehereby notified that any copying, distribution, dissemination or actiontaken in relation to the contents of this report is strictly prohibitedand may be unlawful. If you have received this report in error, pleasenotify the sender immediately at [phone] and permanently delete theoriginal report and destroy any copies or printouts. us Ji Matos MD IMG CT PROCEDURES Final Resul t * CT Knee Left wo IV Contrast (04/30/2021 4:58 PM EST) Anatomical Region Laterality Modality Knee Left Computed Tomogra phy Impressions 04/30/2021 11:46 PM EST Acute spiral mid and distal femoral diaphyseal fracture which extends anteriorly towards the tip of the femoral component of the prosthesis. Very limited examination of the knee at the level of the prosthesis. Femoral metaphysis is otherwise intact. ?? CRITICAL RESULT: ?? No. COMMUNICATION: Per this written report. Signed by Tad Hou on ??04/30/2021 11:46 PM Narrative 04/30/2021 11:46 PM EST Exam/Procedure: CT KNEE LEFT WO IV CONTRAST ordered by CLAY OVIEDO [id number] CLINICAL INDICATION: Fracture, knee TECHNIQUE: ?? Multiple axial CT images of left knee were obtained without contrast administration. Reformatted images in the coronal and/or sagittal plane(s) were generated from the axial data set to facilitate diagnostic accuracy and/or surgical planning. ?? Total DLP (Dose-Length Product): 1147.55 mGy.cm. Please note: The reported value represents the total of one or more individual components during the CT acquisition on this date and at this time, and as such, the same value may appear in more than one CT report depending on the interpreting/reporting physicians. ?? COMPARISON: ?? Radiographs 30 April 2021 FINDINGS: ?? Streak artifact from total knee arthroplasty limits evaluation. Acute spiral distal femoral diaphyseal fracture with lateral displacement of the distal fracture fragment. Small butterfly fragment is seen at the level of the fracture distally. Fracture associated hematoma. The fracture extends just to the level of the tip of the femoral component of the prosthesis. Tibia and fibula as well as patella are intact. Enlargement of the vastus intermedius muscle consistent with hematoma. Nondiagnostic examination for effusion. Procedure Note Tad Hou MD - 04/30/2021 Exam/Procedure: CT KNEE LEFT WO IV CONTRAST ordered by CLAY OVIEDO,[id number] CLINICAL INDICATION: Fracture, knee TECHNIQUE: Multiple axial CT images of left knee were obtained without contrastadministration. Reformatted images in the coronal and/or sagittal plane(s)were generated from the axial data set to facilitate diagnostic accuracyand/or surgical planning. Total DLP (Dose-Length Product): 1147.55 mGy.cm. Please note: The reportedvalue represents the total of one or more individual components during theCT acquisition on this date and at this time, and as such, the same valuemay appear in more than one CT report depending on theinterpreting/reporting physicians. COMPARISON: Radiographs 30 April 2021 FINDINGS: Streak artifact from total knee arthroplasty limits evaluation. Acutespiral distal femoral diaphyseal fracture with lateral displacement of thedistal fracture fragment. Small butterfly fragment is seen at the level ofthe fracture distally. Fracture associated hematoma. The fracture extendsjust to the level of the tip of the femoral component of the prosthesis.Tibia and fibula as well as patella are intact. Enlargement of the vastusintermedius muscle consistent with hematoma. Nondiagnostic examination foreffusion. IMPRESSION: Acute spiral mid and distal femoral diaphyseal fracture which extendsanteriorly towards the tip of the femoral component of the prosthesis.Very limited examination of the knee at the level of the prosthesis.Femoral metaphysis is otherwise intact. CRITICAL RESULT: No. COMMUNICATION: Per this written report. Signed by Tad Hou on 04/30/2021 11:46 PM Clay Oviedo MD IM CT PROCEDURES Final Result * (ABNORMAL) POCT glucose meter (04/30/2021 4:15 PM EST) POCT Glucose 106(H) 74 - 99 mg/dL 04/30/2021 4:20 PM EST [facility] Comment:Accuracy of a glucos e result obtained from a capillary whole blood specimen relies upon adequate, non-compromised capillary blood flow. If the capillary glucose result is not consistent with the patient's clinical signs and symptoms, glucose testing should be repeated with either an arterial or venous sample on the glucometer or sent to the main labortory for testing. Comment 04/30/2021 4:20 PM EST [facility] Structural Worker ID Enoch Baptiste 04/30/2021 4:20 PM EST [facility] Device ID [id number] 04/30/2021 4:20 PM EST [facility] Specimen Type POC Capillary 04/30/2021 4:20 PM EST [facility] Blood Capillary blood specimen / Unknown 04/30/2021 4:15 PM EST 04/30/2021 4:20 PM EST Ji Matos MD LAB POINT OF CARE TE ST DOCKED DEVICE UNSOLICITED RESULTS Final Result Performing Organization Address City/[facility]/ZIP Co de Phone Number [facility] [address] [place] [address] * (ABNORMAL) Lactate, venous (04/30/2021 3:36 PM EST) Pathologist [facility] Lactate, Venous, Whole Blood 2.7(H) 0.5 - 2.2 mmol/L LAB HEMATOLOGY METHOD 04/30/2021 3:42 PM EST [facility] Blood Venous blood specimen / Unknown Venipuncture / Unknown 04/30/2021 3:36 PM EST 04/30/2021 3:41 PM EST Clay Oviedo MD LAB BLOOD ORDERABLES Final Resul t [facility] [address] [place] [address] * XR Pelvis 1 or 2 Views (04/30/2021 3:29 PM EST) Anatomical Region Laterality Modality Body, Pelvis Digital Radiogra phy Impressions 04/30/2021 3:39 PM EST No acute osseous findings CRITICAL RESULT: ?? No. COMMUNICATION: Per this written report. Signed by Rosanna Deng on ??04/30/2021 3:39 PM Narrative 04/30/2021 3:39 PM EST Exam/Procedure: XR PELVIS 1 OR 2 VIEWS ordered by CLAY OVIEDO, [id number] CLINICAL INDICATION: femur fracture, needs AP pelvis TECHNIQUE: XR PELVIS 1 OR 2 VIEWS COMPARISON: None. FINDINGS: No acute fracture or malalignment. Procedure Note Rosanna Deng MD - 04/30/2021 Exam/Procedure: XR PELVIS 1 OR 2 VIEWS ordered by CLAY OVIEDO, [id number] CLINICAL INDICATION: femur fracture, needs AP pelvis TECHNIQUE: XR PELVIS 1 OR 2 VIEWS COMPARISON: None. FINDINGS: No acute fracture or malalignment. IMPRESSION: No acute osseous findings CRITICAL RESULT: No. COMMUNICATION: Per this written report. Signed by Rosanna Deng on 04/30/2021 3:39 PM Clay Oviedo MD IMG XR PROCEDURES Final Result * SARS CoV-2/COVID-19 by PCR (04/30/2021 3:23 PM EST) SARS CoV-2/COVID-1 9 RNA PCR Result Not Detected Not Detected 04/30/2021 8:41 PM EST [facility] Swab Nasopharyngeal structure / Unknown Non-blood Collection / Unknown 04/30/2021 3:23 PM EST 04/30/2021 5:48 PM EST [facility] - 04/30/2021 8:41 PM EST This assay is for in vitro diagnostic use under FDA emergency use authorization only. Negative results do not preclude infection with the SARS CoV-2 virus and should not be the sole basis of a patient treatment/management or public health decision. Follow up testing should be performed according to the current CDC recommendations. This test was performed using the [employer] Alinity m SARS CoV-2 assay, a PCR-based method. The limit of detection (LoD) for this assay is 100 copies/mL. Use of Alinity m SARS CoV-2 assay in an asymptomatic screening population is intended to be used as part of an infection control plan, that may include additional preventative measures such a predefined serial testing plan or directed testing of high-risk individuals. Negative results should be considered presumptive and do not preclude current or future infection obtained through community transmission or other exposures. Negative results must be considered in the context of an individual's recent exposures, history, presence of clinical signs and symptoms consistent with COVID-19. Samson Bustamante MD LAB MICROBIOLOGY - GENERAL ORD ERABLES Final Result [facility] [address] [place] [id number] * XR Chest 1 View (04/30/2021 2:59 PM EST) Anatomical Region Laterality Modality Chest Digital Radiogra phy Impressions 04/30/2021 3:01 PM EST No acute findings CRITICAL RESULT: ?? No. COMMUNICATION: Per this written report. Signed by Rosanna Deng on ??04/30/2021 3:01 PM Narrative 04/30/2021 3:01 PM EST Exam/Procedure: XR CHEST 1 VIEW ordered by SAMSON BUSTAMANTE, [id number] CLINICAL INDICATION: preop TECHNIQUE: XR CHEST 1 VIEW COMPARISON: None. FINDINGS: Lungs are clear without evidence of focal consolidation or parenchymal opacities. No evidence of a pleural effusion or pneumothorax. Cardiac and mediastinal silhouette are within normal limits. No acute osseous abnormalities. Procedure Note Rosanna Deng MD - 04/30/2021 Exam/Procedure: XR CHEST 1 VIEW ordered by SAMSON BUSTAMANTE, [id number] CLINICAL INDICATION: preop TECHNIQUE: XR CHEST 1 VIEW COMPARISON: None. FINDINGS: Lungs are clear without evidence of focal consolidation or parenchymalopacities. No evidence of a pleural effusion or pneumothorax. Cardiac and mediastinal silhouette are within normal limits. No acute osseous abnormalities. IMPRESSION: No acute findings CRITICAL RESULT: No. COMMUNICATION: Per this written report. Signed by Rosanna Deng on 04/30/2021 3:01 PM Samson Bustamante MD IMG XR PROCEDURES Final Result * Type and screen (04/30/2021 2:20 PM EST) ABO/Rh O Negative 04/30/2021 1:57 PM EST [facility] Antibody Screen Negative 04/30/2021 1:57 PM EST [facility] Blood Venous blood specimen / Unknown Venipuncture / Unknown 04/30/2021 2:20 PM EST 04/30/2021 2:31 PM EST us Samson Bustamante MD LAB BLOOD BANK TEST ORDERABLES Final Result BLOOD BANK [address] [place] [id number], * (ABNORMAL) CBC w/diff (04/30/2021 2:20 PM EST) WBC Count 14.68(H) 3.70 - 10.30 10*3/uL LAB HEMATOLOGY METHOD 04/30/2021 2:31 PM EST [facility] RBC Count 4.33 3.90 - 5.20 10*6/uL LAB HEMATOLOGY METHOD 04/30/2021 2:31 PM EST [facility] HGB 13.5 11.2 - 15.7 g/dL LAB HEMATOLOGY METHOD 04/30/2021 2:31 PM EST [facility] HCT 40.3 34.0 - 45.0 % LAB HEMATOLOGY METHOD 04/30/2021 2:31 PM EST [facility] Platelet Count 326 155 - 369 10*3/uL LAB HEMATOLOGY METHOD 04/30/2021 2:31 PM EST [facility] MCV 93 79 - 98 fL LAB HEMATOLOGY METHOD 04/30/2021 2:31 PM EST [facility] MCH 31.2 26.0 - 32.0 pg LAB HEMATOLOGY METHOD 04/30/2021 2:31 PM EST [facility] [facility] MCHC 33.5 30.7 - 35.5 g/dL LAB HEMATOLOGY METHOD 04/30/2021 2:31 PM EST [facility] RDW 13.5 11.5 - 14.5 % LAB HEMATOLOGY METHOD 04/30/2021 2:31 PM EST [facility] MPV 10.7 8.8 - 12.5 fL LAB HEMATOLOGY METHOD 04/30/2021 2:31 PM EST [facility] nRBC 0.0 <=0.0 per 100 WBCs LAB HEMATOLOGY METHOD 04/30/2021 2:31 PM EST [facility] Differential Type Automated LAB HEMATOLOGY METHOD 04/30/2021 2:31 PM EST [facility] Neutrophils % 78.0 % LAB HEMATOLOGY METHOD 04/30/2021 2:31 PM EST [facility] Lymphocytes % 16.0 % LAB HEMATOLOGY METHOD 04/30/2021 2:31 PM EST [facility] Monocytes % 6.0 % LAB HEMATOLOGY METHOD 04/30/2021 2:31 PM EST [facility] Eosinophils % 0.0 % LAB HEMATOLOGY METHOD 04/30/2021 2:31 PM EST [facility] Basophils % 0.0 % LAB HEMATOLOGY METHOD 04/30/2021 2:31 PM EST [facility] Immature Granulocytes % 0.0 % LAB HEMATOLOGY METHOD 04/30/2021 2:31 PM EST [facility] Neutrophils Absolute 11.34(H) 1.60 - 6.10 10*3/uL LAB HEMATOLOGY METHOD 04/30/2021 2:31 PM EST [facility] Lymphocytes Absolute 2.28 1.20 - 3.90 10*3/uL LAB HEMATOLOGY METHOD 04/30/2021 2:31 PM EST [facility] Monocytes Absolute 0.91(H) 0.30 - 0.90 10*3/uL LAB HEMATOLOGY METHOD 04/30/2021 2:31 PM EST [facility] Eosinophils Absolute 0.03 0.00 - 0.50 10*3/uL LAB HEMATOLOGY METHOD 04/30/2021 2:31 PM EST [facility] Basophils Absolute 0.06 0.00 - 0.10 10*3/uL LAB HEMATOLOGY METHOD 04/30/2021 2:31 PM EST [facility] Immature Granulocytes Absolute 0.06 0.00 - 0.06 10*3/uL LAB HEMATOLOGY METHOD 04/30/2021 2:31 PM EST [facility] Blood Venous blood specimen / Unknown Venipuncture / Unknown 04/30/2021 2:20 PM EST 04/30/2021 2:25 PM EST [facility] - 04/30/2021 2:31 PM EST Therapeutic decision making should be based on absolute values, rather than percentages. us Samson Bustamante MD LAB BLOOD ORDERABLES Final Res ult [facility] [address] [place] [address] * (ABNORMAL) CMP (04/30/2021 2:19 PM EST) Glucose, Plasma 142(H) 74 - 99 mg/dL 04/30/2021 2:54 PM EST [facility] BUN, Plasma 23(H) 7 - 21 mg/dL 04/30/2021 2:54 PM EST [facility] Creatinine, Plasma 0.87 0.60 - 1.10 mg/dL 04/30/2021 2:54 PM EST [facility] BUN/Creatinine Ratio 26 04/30/2021 2:54 PM EST [facility] Sodium, Plasma 142 136 - 145 mmol/L 04/30/2021 2:54 PM EST [facility] Potassium, Plasma 4.2 3.7 - 4.8 mmol/L 04/30/2021 2:54 PM EST [facility] Chloride, Plasma 108(H) 97 - 107 mmol/L 04/30/2021 2:54 PM EST [facility] CO2, Plasma 19(L) 22 - 29 mmol/L 04/30/2021 2:54 PM EST [facility] Anion Gap 15 6 - 16 mmol/L 04/30/2021 2:54 PM EST [facility] Total Calcium, Plasma 9.1 8.9 - 10.2 mg/dL 04/30/2021 2:54 PM EST [facility] Total Protein 7.0 6.3 - 7.9 g/dL 04/30/2021 2:54 PM EST [facility] Albumin, Plasma 4.1 3.5 - 5.2 g/dL 04/30/2021 2:54 PM EST [facility] AST, Plasma 162(H) 11 - 32 U/L 04/30/2021 2:54 PM EST [facility] ALT, Plasma 73(H) 8 - 33 U/L 04/30/2021 2:54 PM EST [facility] Alkaline Phosphatase, Plasma 138 46 - 142 U/L 04/30/2021 2:54 PM EST [facility] Total Bilirubin, Plasma 0.6 0.2 - 1.1 mg/dL 04/30/2021 2:54 PM EST [facility] eGFR >60 >60 mL/min/1.7 3m*2 04/30/2021 2:54 PM EST [facility] Comment:eGFR = estimated GFR ; eGFR units = mL/min/1.73 sq meters Chronic Kidney Disease is considered if eGFR <60 mL/min/1.73 sq meters Kidney failure is considered if eGFR is <15 mL/min/1.73 sq meters. eGFR assumes steady state plasma creatinine concentration; not applicable if renal function is rapidly changing or patient is on dialysis. eGFR, if AFR/AM >60 >60 mL/min/1.7 3m*2 04/30/2021 2:54 PM EST [facility] Comment:eGFR = estimated GFR ; eGFR units = mL/min/1.73 sq meters Chronic Kidney Disease is considered if eGFR <60 mL/min/1.73 sq meters Kidney failure is considered if eGFR is <15 mL/min/1.73 sq meters. eGFR assumes steady state plasma creatinine concentration; not applicable if renal function is rapidly changing or patient is on dialysis. Blood Venous blood specimen / Unknown Venipuncture / Unknown 04/30/2021 2:19 PM EST 04/30/2021 2:25 PM EST us Samson Bustamante MD LAB BLOOD ORDERABLES Final Res ult Performing Organization Address City/State/[facility] Co de Phone Number [facility] [address] [place], [place] [id number] * PT-INR (04/30/2021 2:19 PM EST) Prothrombin Time 12.4 12.0 - 14.3 sec LAB COAGULATION METHOD 04/30/2021 2:57 PM EST [facility] INR 1.0 0.9 - 1.1 LAB COAGULATION METHOD 04/30/2021 2:57 PM EST [facility] Blood Venous blood specimen / Unknown Venipuncture / Unknown 04/30/2021 2:19 PM EST 04/30/2021 2:25 PM EST Narrative [facility] - 04/30/2021 2:57 PM EST OPTIMAL INR RANGES FOR PATIENT ON ORAL ANTICOAGULANT THERAPY Prevention of venous thromboembolism ?INR 2.0 to 3.0 In patients with heart disease: Atrial fibrillation ?INR 2.0 to 3.0 Valvular heart disease ? INR 2.0 to 3.0 Tissue heart valves ?INR 2.0 to 3.0 Mechanical prosthetic valves ? INR 2.5 to 3.5 Prevention of recurrent SC ? INR 2.5 to 3.5 us Samson Bustamante MD LAB BLOOD ORDERABLES Final Res ult Performing Organization Address [facility] de Phone Number [facility] [address] [place] [address] * EKG now - STAT (adult) (04/30/2021 2:08 PM EST) EKG DIAGNOSIS CLASS Normal MUSE ECG Ventricular Rate 87 BPM MUSE ECG Atrial Rate 87 BPM MUSE ECG DC Interval 120 ms MUSE ECG QRSD Interval 76 ms MUSE ECG QT Interval 374 ms MUSE ECG QTC Interval 450 ms MUSE ECG P [place] 48 degrees MUSE ECG R [place] 40 degrees MUSE ECG T Wave [place] 74 degrees MUSE ECG Diagnosis Poor data quality MUSE ECG Diagnosis Confirmed by Garcia Leonard ([id number]) on 05/01/2021 11:23:11 AM MUSE ECG 04/30/2021 2:08 PM EST 05/01/2021 11:23 AM EST us Samson Bustamante MD ECG ORDERABLES Final Result Performing Organization Address [facility] de Phone Number MUSE ECG * XR Tibia Fibula Left 2+ Views (04/30/2021 1:48 PM EST) Anatomical Region Laterality Modality Lower Extremities, Lower Leg Left Dig ital Radiography Impressions 04/30/2021 2:18 PM EST Acute obliquely oriented fracture through the distal femoral diaphysis. CRITICAL RESULT: ?? No. COMMUNICATION: Per this written report. Signed by Marco Antonio Mckinney on ??04/30/2021 2:18 PM Narrative 04/30/2021 2:18 PM EST Exam/Procedure: XR TIBIA FIBULA LEFT 2+ VIEWS ordered by SAMSON BUSTAMANTE [id number] CLINICAL INDICATION: fall, pain TECHNIQUE: XR TIBIA FIBULA LEFT 2+ VIEWS, XR KNEE LEFT 3 VIEWS, XR FEMUR LEFT 2+ VIEWS, XR HIP LEFT 2 OR 3 VIEWS COMPARISON: None FINDINGS: Acute obliquely oriented fracture through the distal femoral diaphysis with extension of the posterior metaphysis. There is mild anterior and lateral displacement distal fracture fragments. Postoperative changes from previous left total knee arthroplasty. No evidence of hardware malfunction. No acute fracture or dislocation involving the remainder of the left lower extremity. Procedure Note Marco Antonio Mckinney MD - 04/30/2021 Exam/Procedure: XR TIBIA FIBULA LEFT 2+ VIEWS ordered by SAMSON [id number] CLINICAL INDICATION: fall, pain TECHNIQUE: XR TIBIA FIBULA LEFT 2+ VIEWS, XR KNEE LEFT 3 VIEWS, XR FEMUR LEFT 2+VIEWS, XR HIP LEFT 2 OR 3 VIEWS COMPARISON: None FINDINGS: Acute obliquely oriented fracture through the distal femoral diaphysiswith extension of the posterior metaphysis. There is mild anterior andlateral displacement distal fracture fragments. Postoperative changes fromprevious left total knee arthroplasty. No evidence of hardwaremalfunction. No acute fracture or dislocation involving the remainder of the left lowerextremity. IMPRESSION: Acute obliquely oriented fracture through the distal femoral diaphysis. CRITICAL RESULT: No. COMMUNICATION: Per this written report. Signed by Marco Antonio Mckinney on 04/30/2021 2:18 PM Samson Bustamante MD IMG XR PROCEDURES Final Result * XR Knee Left 3 Views (04/30/2021 1:48 PM EST) Anatomical Region Laterality Modality Lower Extremities, Knee Left Digital Radiography Impressions 04/30/2021 2:18 PM EST Acute obliquely oriented fracture through the distal femoral diaphysis. CRITICAL RESULT: ?? No. COMMUNICATION: Per this written report. Signed by Marco Antonio Mckinney on ??04/30/2021 2:18 PM Narrative 04/30/2021 2:18 PM EST Exam/Procedure: XR TIBIA FIBULA LEFT 2+ VIEWS ordered by SAMSON BUSTAMANTE, [id number] CLINICAL INDICATION: fall, pain TECHNIQUE: XR TIBIA FIBULA LEFT 2+ VIEWS, XR KNEE LEFT 3 VIEWS, XR FEMUR LEFT 2+ VIEWS, XR HIP LEFT 2 OR 3 VIEWS COMPARISON: None FINDINGS: Acute obliquely oriented fracture through the distal femoral diaphysis with extension of the posterior metaphysis. There is mild anterior and lateral displacement distal fracture fragments. Postoperative changes from previous left total knee arthroplasty. No evidence of hardware malfunction. No acute fracture or dislocation involving the remainder of the left lower extremity. Procedure Note Marco Antonio Mckinney MD - 04/30/2021 Exam/Procedure: XR TIBIA FIBULA LEFT 2+ VIEWS ordered by SAMSON BUSTAMANTE,[id number] CLINICAL INDICATION: fall, pain TECHNIQUE: XR TIBIA FIBULA LEFT 2+ VIEWS, XR KNEE LEFT 3 VIEWS, XR FEMUR LEFT 2+VIEWS, XR HIP LEFT 2 OR 3 VIEWS COMPARISON: None FINDINGS: Acute obliquely oriented fracture through the distal femoral diaphysiswith extension of the posterior metaphysis. There is mild anterior andlateral displacement distal fracture fragments. Postoperative changes fromprevious left total knee arthroplasty. No evidence of hardwaremalfunction. No acute fracture or dislocation involving the remainder of the left lowerextremity. IMPRESSION: Acute obliquely oriented fracture through the distal femoral diaphysis. CRITICAL RESULT: No. COMMUNICATION: Per this written report. Signed by Marco Antonio Mckinney on 04/30/2021 2:18 PM Samson Bustamante MD IMG XR PROCEDURES Final Result * XR Femur Left 2+ Views (04/30/2021 1:48 PM EST) Anatomical Region Laterality Modality Lower Extremities, Femur Left Digital Radiography Impressions 04/30/2021 2:18 PM EST Acute obliquely oriented fracture through the distal femoral diaphysis. CRITICAL RESULT: ?? No. COMMUNICATION: Per this written report. Signed by Marco Antonio Mckinney on ??04/30/2021 2:18 PM Narrative 04/30/2021 2:18 PM EST Exam/Procedure: XR TIBIA FIBULA LEFT 2+ VIEWS ordered by SAMSON BUSTAMANTE, [id number] CLINICAL INDICATION: fall, pain TECHNIQUE: XR TIBIA FIBULA LEFT 2+ VIEWS, XR KNEE LEFT 3 VIEWS, XR FEMUR LEFT 2+ VIEWS, XR HIP LEFT 2 OR 3 VIEWS COMPARISON: None FINDINGS: Acute obliquely oriented fracture through the distal femoral diaphysis with extension of the posterior metaphysis. There is mild anterior and lateral displacement distal fracture fragments. Postoperative changes from previous left total knee arthroplasty. No evidence of hardware malfunction. No acute fracture or dislocation involving the remainder of the left lower extremity. Procedure Note Marco Antonio Mckinney MD - 04/30/2021 Exam/Procedure: XR TIBIA FIBULA LEFT 2+ VIEWS ordered by SAMSON BUSTAMANTE,[id number] CLINICAL INDICATION: fall, pain TECHNIQUE: XR TIBIA FIBULA LEFT 2+ VIEWS, XR KNEE LEFT 3 VIEWS, XR FEMUR LEFT 2+VIEWS, XR HIP LEFT 2 OR 3 VIEWS COMPARISON: None FINDINGS: Acute obliquely oriented fracture through the distal femoral diaphysiswith extension of the posterior metaphysis. There is mild anterior andlateral displacement distal fracture fragments. Postoperative changes fromprevious left total knee arthroplasty. No evidence of hardwaremalfunction. No acute fracture or dislocation involving the remainder of the left lowerextremity. IMPRESSION: Acute obliquely oriented fracture through the distal femoral diaphysis. CRITICAL RESULT: No. COMMUNICATION: Per this written report. Signed by Marco Antonio Mckinney on 04/30/2021 2:18 PM Samson Bustamante MD IMG XR PROCEDURES Final Result * XR Hip Left 2 or 3 Views (04/30/2021 1:48 PM EST) Anatomical Region Laterality Modality Lower Extremities, Hip Left Digital R adiography Impressions 04/30/2021 2:18 PM EST Acute obliquely oriented fracture through the distal femoral diaphysis. CRITICAL RESULT: ?? No. COMMUNICATION: Per this written report. Signed by Marco Antonio Mckinney on ??04/30/2021 2:18 PM Narrative 04/30/2021 2:18 PM EST Exam/Procedure: XR TIBIA FIBULA LEFT 2+ VIEWS ordered by SAMSON BUSTAMANTE, [id number] CLINICAL INDICATION: fall, pain TECHNIQUE: XR TIBIA FIBULA LEFT 2+ VIEWS, XR KNEE LEFT 3 VIEWS, XR FEMUR LEFT 2+ VIEWS, XR HIP LEFT 2 OR 3 VIEWS COMPARISON: None FINDINGS: Acute obliquely oriented fracture through the distal femoral diaphysis with extension of the posterior metaphysis. There is mild anterior and lateral displacement distal fracture fragments. Postoperative changes from previous left total knee arthroplasty. No evidence of hardware malfunction. No acute fracture or dislocation involving the remainder of the left lower extremity. Procedure Note Marco Antonio Mckinney MD - 04/30/2021 Exam/Procedure: XR TIBIA FIBULA LEFT 2+ VIEWS ordered by SAMSON BUSTAMANTE,[id number] CLINICAL INDICATION: fall, pain TECHNIQUE: XR TIBIA FIBULA LEFT 2+ VIEWS, XR KNEE LEFT 3 VIEWS, XR FEMUR LEFT 2+VIEWS, XR HIP LEFT 2 OR 3 VIEWS COMPARISON: None FINDINGS: Acute obliquely oriented fracture through the distal femoral diaphysiswith extension of the posterior metaphysis. There is mild anterior andlateral displacement distal fracture fragments. Postoperative changes fromprevious left total knee arthroplasty. No evidence of hardwaremalfunction. No acute fracture or dislocation involving the remainder of the left lowerextremity. IMPRESSION: Acute obliquely oriented fracture through the distal femoral diaphysis. CRITICAL RESULT: No. COMMUNICATION: Per this written report. Signed by Marco Antonio Mckinney on 04/30/2021 2:18 PM Samson Bustamante MD IMG XR PROCEDURES Final Result documented in this encounter Visit Diagnoses Diagnosis Closed fracture of distal end of left femur, unspecified fracture morphology, initial encounter ([facility]) Closed fracture of left distal femur ([facility]) Fall Unspecified fall Diabetes ([facility]) Type II or unspecified type diabetes mellitus without mention of complication, not stated as uncontrolled Elevated LFTs Other abnormal blood chemistry Lactic acidosis Acidosis HTN (hypertension) Unspecified essential hypertension Obesity Obesity, unspecified Fibromyalgia Unspecified myalgia and myositis UTI (urinary tract infection) Urinary tract infection, site not specified documented in this encounter Administered Medications Inactive Administered Medications - up to 3 most recent administrations Medication Order MAR Action Action Date Dose Rate Site acetaminophen (Tylenol) tablet 1,000 mg 1,000 mg, Oral, Every 6 hours scheduled, First dose on 04/30/21 at 1800, Until Discontinued, Routine Given 05/07/2021 6:25 AM EST 1,000 mg Given 05/07/2021 12:45 AM EST 1,000 mg Given 05/06/2021 6:09 PM EST 1,000 mg amitriptyline (Elavil) tablet 50 mg 50 mg, Oral, Nightly, First dose on 04/30/21 at 2100, Until Discontinued, Routine Given 05/01/2021 9:2 0 PM EST 50 mg Given 04/30/2021 8:45 PM EST 50 mg baclofen (Lioresal) 10 MG tablet - Pyxis Override Pull 1 dose, Starting on 04/30/21 at 1615, Until 04/30/21 at 1636 baclofen (Lioresal) tablet 10 mg 10 mg, Oral, 3 times daily, First dose on 04/30/21 at 1615, Until Discontinued, Routine Given 05/07/2021 8:5 1 AM EST 10 mg Given 05/06/2021 9:00 PM EST 10 mg Given 05/06/2021 6:10 PM EST 10 mg benzocaine-menthol (Chloraseptic) 6-10 MG lozenge 1 lozenge 1 lozenge, Mouth/Throat, Every 4 hours PRN, Starting on 05/01/21 at 1825, Until 05/07/21 at 1114, Routine, sore throat buPROPion (Wellbutrin) tablet 150 mg 150 mg, Oral, 2 times daily, First dose on 04/30/21 at 2100, Until Discontinued, Routine Given 05/07/2021 8:50 AM EST 150 mg Given 05/06/2021 9:01 PM EST 150 mg Given 05/06/2021 8:11 AM EST 150 mg calcium carbonate (Tums) chewable tablet 500 mg 500 mg, Oral, 4 times daily PRN, Starting on 05/01/21 at 1825, Until 05/07/21 at 1114, Routine, indigestion, heartburn Given 05/04/2021 12:39 PM EST 500 mg clindamycin (Cleocin) IV solution 900 mg 900 mg, Intravenous, Every 8 hours, 3 doses, First dose on 05/01/21 at 1615, Last dose on 05/02/21 at 0815, Routine, Recovery(Phase II-Outpatient)/On Unit(Inpatient) New Bag 05/02/2021 8:55 AM EST 900 mg 50 mL/hr New Bag 05/01/2021 11:59 PM EST 900 mg 50 mL/hr New Bag 05/01/2021 5:35 PM EST 900 mg 50 mL/hr cyanocobalamin (Vitamin B-12) tablet 1,000 mcg 1,000 mcg, Oral, Daily, First dose on 05/02/21 at 1230, Until Discontinued, Routine Given 05/07/2021 8:52 AM EST 1,000 mcg Given 05/06/2021 8:11 AM EST 1,000 mcg Given 05/05/2021 10:00 AM EST 1,000 mcg dextrose 5 % and sodium chloride 0.45 % with KCl 20 mEq/L infusion 100 mL/hr, Intravenous, Continuous, Starting on 04/30/21 at 1615, Until 05/01/21 at 1724, Routine New Bag 04/30/2021 4:35 PM EST 100 mL/hr 100 m L/hr docusate sodium (Colace) capsule 100 mg 100 mg, Oral, 2 times daily, First dose on 04/30/21 at 2100, Until Discontinued, Routine Given 05/02/2021 8:52 AM EST 100 mg Given 05/01/2021 9:20 PM EST 100 mg Given 04/30/2021 8:45 PM EST 100 mg enoxaparin (Lovenox) syringe 60 mg 60 mg, Subcutaneous, 2 times daily, First dose on 05/02/21 at 1300, Until Discontinued, Routine Given 05/07/2021 8:50 AM EST 60 mg Left Lower Abdomen Given 05/06/2021 9:01 PM EST 60 mg Ri ght Lower Abdomen Given 05/06/2021 8:11 AM EST 60 mg Le ft Lower Abdomen fentaNYL (Sublimaze) 50 mcg/mL injection - Pyxis Override Pull 1 dose, Starting on 04/30/21 at 1325, Until 04/30/21 at 1329 fentaNYL (Sublimaze) injection 50 mcg 50 mcg, Intravenous, Once, 1 dose, On 04/30/21 at 1325, STAT Given 04/30/2021 1:29 PM EST 50 mcg fentaNYL (Sublimaze) injection 50 mcg 50 mcg, Intravenous, Once, 1 dose, On 04/30/21 at 1510, STAT Given 04/30/2021 3:09 PM EST 50 mcg ferrous sulfate EC tablet 324 mg 324 mg, Oral, Daily with breakfast, First dose on Sun05/03/21 at 0800, Until Discontinued Given 05/06/2021 9:01 PM EST 324 mg Given 05/05/2021 8:15 PM EST 324 mg Given 05/04/2021 9:46 AM EST 324 mg fluconazole (Diflucan) tablet 150 mg 150 mg, Oral, Once, 1 dose, On 05/01/21 at 1815, Routine Given 05/01/2021 6:40 PM EST 150 mg FLUoxetine (PROzac) capsule 40 mg 40 mg, Oral, 2 times daily, First dose on 05/02/21 at 1230, Until Discontinued, Routine Given 05/07/2021 8:5 1 AM EST 40 mg Given 05/06/2021 9:00 PM EST 40 mg Given 05/06/2021 8:10 AM EST 40 mg gabapentin (Neurontin) 100 MG capsule - Pyxis Override Pull 1 dose, Starting on 04/30/21 at 1615, Until 04/30/21 at 1636 gabapentin (Neurontin) capsule 100 mg 100 mg, Oral, Every 8 hours, First dose on 04/30/21 at 1615, Until Discontinued, Routine Given 04/30/2021 4:36 PM EST 100 mg gabapentin (Neurontin) capsule 200 mg 200 mg, Oral, Every 8 hours, First dose (after last modification) on 05/01/21 at 0015, Until Discontinued, Routine Given 05/02/2021 6:30 PM EST 200 mg Given 05/02/2021 8:53 AM EST 200 mg Given 05/01/2021 11:59 PM EST 200 mg gabapentin (Neurontin) capsule 200 mg 200 mg, Oral, Once, 1 dose, On Sun05/02/21 at 1945, Routine Given 05/02/2021 9:14 PM EST 200 mg gabapentin (Neurontin) capsule 300 mg 300 mg, Oral, Every 8 hours, First dose (after last modification) on Sun05/03/21 at 0015, Until Discontinued, Routine Given 05/07/2021 8:51 AM EST 300 mg Given 05/07/2021 12:45 AM EST 300 mg Given 05/06/2021 6:10 PM EST 300 mg HYDROmorphone (Dilaudid) injection 0.5 mg 0.5 mg, Intravenous, Every 4 hours PRN, Starting on 04/30/21 at 1841, Until Sun05/02/21 at 1231, Routine, severe pain Given 05/01/2021 8:59 AM EST 0.5 m g Given 04/30/2021 6:51 PM EST 0.5 mg hydrOXYzine pamoate (Vistaril) capsule 25 mg 25 mg, Oral, 3 times daily PRN, Starting on 05/02/21 at 1159, Until 05/07/21 at 1114, Routine, anxiety Given 05/05/2021 8:15 PM EST 25 mg Given 05/04/2021 9:16 PM EST 25 mg Given 05/03/2021 9:46 AM EST 25 mg ipratropium-albuterol (Duo-Neb) 0.5-2.5 mg/3 mL nebulizer solution - Pyxis Override Pull 1 dose, Starting on 05/01/21 at 0839, Until 05/01/21 at 0845 Given 05/01/2021 8:45 AM EST lactated Ringer's bolus 1,000 mL 1,000 mL, Intravenous, Once, 1 dose, On 05/01/21 at 2015, Administer over 1 Hours, Routine New Bag 05/01/2021 8:15 PM EST 1,000 mL 1000 mL/hr levoFLOXacin (Levaquin) tablet 750 mg 750 mg, Oral, Daily, 3 doses, First dose on Jessi 05/05/21 at 1015, Last dose on 05/07/21 at 0900, Routine Given 05/07/2021 8:51 AM EST 750 mg Given 05/06/2021 8:11 AM EST 750 mg Given 05/05/2021 10:00 AM EST 750 mg levothyroxine (Synthroid, Levoxyl) tablet 125 mcg 125 mcg, Oral, Daily before breakfast, First dose on 05/01/21 at 0730, Until Discontinued, Routine Given 05/07/2021 6:25 AM EST 125 mcg Given 05/06/2021 5:54 AM EST 125 mcg Given 05/05/2021 6:21 AM EST 125 mcg linaCLOtide (Linzess) tablet 145 mcg 145 mcg, Oral, Every morning, First dose on Tu05/03/21 at 0600, Until Discontinued, Routine Given 05/05/2021 6:21 AM EST 145 mcg LORazepam (Ativan) 2 MG/ML injection - Pyxis Override Pull 1 dose, Starting on 04/30/21 at 1616, Until 04/30/21 at 1636 LORazepam (Ativan) injection 1 mg 1 mg, Intravenous, Every 4 hours PRN, Starting on 04/30/21 at 1610, Until 05/02/21 at 1231, Routine, anxiety Given 04/30/2021 8:46 PM EST 1 mg Given 04/30/2021 4:36 PM EST 1 mg magnesium hydroxide (Milk of Magnesia) 2400 MG/10ML suspension 10 mL 10 mL, Oral, Once, 1 dose, On 05/04/21 at 1300, Routine Given 05/04/2021 1:07 PM EST 10 mL melatonin tablet 6 mg 6 mg, Oral, Nightly PRN, Starting on 05/01/21 at 1825, Until 05/07/21 at 1114, Routine, sleep Given 05/05/2021 8:15 PM EST 6 mg Given 05/04/2021 9:16 PM EST 6 mg Given 05/01/2021 9:20 PM EST 6 mg methocarbamol (Robaxin) 500 MG tablet - Pyxis Override Pull 1 dose, Starting on 04/30/21 at 1615, Until 04/30/21 at 1636 methocarbamol (Robaxin) tablet 500 mg 500 mg, Oral, Every 8 hours, First dose on 04/30/21 at 1615, Until Discontinued, Routine Given 04/30/2021 4:36 PM EST 500 mg methocarbamol (Robaxin) tablet 500 mg 500 mg, Oral, Every 8 hours, First dose (after last modification) on 05/01/21 at 0015, Until Discontinued, Routine Given 05/07/2021 8:51 AM EST 500 mg Given 05/07/2021 12:45 AM EST 500 mg Given 05/06/2021 6:10 PM EST 500 mg montelukast (Singulair) tablet 10 mg 10 mg, Oral, Daily, First dose on 04/30/21 at 1615, Until Discontinued, Routine Given 05/07/2021 8:51 AM EST 10 mg Given 05/06/2021 8:11 AM EST 10 mg Given 05/05/2021 10:00 AM EST 10 mg morphine PF 2 mg 2 mg, Intravenous, Every 4 hours PRN, Starting on 04/30/21 at 1610, Until 04/30/21 at 1841, Routine, severe pain Given 04/30/2021 6:03 PM EST 2 mg morphine PF 4 mg 4 mg, Intravenous, Once, 1 dose, On 04/30/21 at 1250, STAT Given 04/30/2021 12:55 PM EST 4 mg multivitamin (Theragran-M) tablet 1 tablet 1 tablet, Oral, Daily, First dose on 05/02/21 at 1230, Until Discontinued Given 05/06/2021 9:00 PM EST 1 table t Given 05/05/2021 8:14 PM EST 1 tablet Given 05/04/2021 9:45 AM EST 1 tablet nystatin (Mycostatin) 546644 UNIT/GM powder 1 application Topical, 2 times daily, First dose on Sun05/04/21 at 1215, Until Discontinued, Routine Given 05/06/2021 9:02 PM EST 1 application. Given 05/06/2021 8:12 AM EST 1 application. Given 05/05/2021 8:17 PM EST 1 application. nystatin (Mycostatin) ointment Topical, 2 times daily, First dose on 05/01/21 at 2100, Until Discontinued, Routine Given 05/04/2021 9:49 AM EST Given 05/03/2021 8:45 PM EST Given 05/03/2021 10:47 AM EST oxyCODONE (Roxicodone) immediate release tablet 10 mg 10 mg, Oral, Every 4 hours PRN, Starting on 04/30/21 at 2019, Until Sun05/04/21 at 1250, Routine, severe pain Given 05/04/2021 9:46 AM EST 10 mg Given 05/04/2021 5:59 AM EST 10 mg Given 05/03/2021 7:17 PM EST 10 mg oxyCODONE (Roxicodone) immediate release tablet 10 mg 10 mg, Oral, Once as needed, 1 dose, Starting on 05/01/21 at 1531, Until 05/01/21 at 1630, Routine, Recovery (Phase I only), severe pain, > 5 out of 10 Given 05/01/2021 4:30 PM EST 10 mg oxyCODONE (Roxicodone) immediate release tablet 5 mg 5 mg, Oral, Every 4 hours PRN, Starting on 04/30/21 at 2019, Until 05/07/21 at 1114, Routine, moderate pain, severe pain Given 05/07/2021 8:51 AM EST 5 mg Given 05/07/2021 12:49 AM EST 5 mg Given 05/06/2021 12:40 PM EST 5 mg pantoprazole (Protonix) EC tablet 40 mg 40 mg, Oral, Daily before breakfast, First dose on 05/01/21 at 0730, Until Discontinued, Routine Given 05/02/2021 6:44 AM EST 40 mg pantoprazole (Protonix) EC tablet 40 mg 40 mg, Oral, 2 times daily before meals, First dose (after last modification) on Sun05/02/21 at 1700, Until Discontinued, Routine Given 05/07/2021 8:51 AM EST 40 mg Given 05/06/2021 6:09 PM EST 40 mg Given 05/06/2021 8:11 AM EST 40 mg phenol (Chloraseptic) 1.4 % mouth/throat spray 1 spray 1 spray, Mouth/Throat, Every 2 hour PRN, sore throat, Sore mouth, Instruct patient to spit out after 15 seconds., Starting on 05/01/21 at 1749 Given 05/01/2021 6:24 PM EST 1 spray senna-docusate (Nia-Colace) 8.6-50 MG per tablet 2 tablet 2 tablet, Oral, 2 times daily, First dose on Sun05/02/21 at 2100, Until Discontinued, Routine Given 05/04/2021 9:49 AM EST 2 tablets Given 05/03/2021 8:45 PM EST 2 tablets Given 05/03/2021 9:44 AM EST 2 tablets simethicone (Mylicon) chewable tablet 80 mg 80 mg, Oral, Every 6 hours PRN, Starting on 05/01/21 at 1825, Until 05/07/21 at 1114, Routine, flatulence Given 05/04/2021 12:38 PM EST 80 mg Given 05/03/2021 2:15 PM EST 80 mg simvastatin (Zocor) tablet 5 mg 5 mg, Oral, Nightly, First dose on Sun05/04/21 at 2100, Until Discontinued, Routine Given 05/07/2021 12: 45 AM EST 5 mg Given 05/05/2021 8:15 PM EST 5 mg Given 05/04/2021 9:23 PM EST 5 mg sodium chloride 0.9 % flush 10 mL 10 mL, Intravenous, Every 12 hours PRN, Starting on 04/30/21 at 1608, Until 05/07/21 at 1114, Routine, line care traMADol (Ultram) tablet 50 mg 50 mg, Oral, Every 6 hours PRN, Starting on 04/30/21 at 1610, Until 04/30/21 at 2018, Routine, moderate pain Given 04/30/2021 6:31 PM EST 50 mg documented in this encounter Active and Recently Administered Medications Times are shown in EST. Scheduled Medication Order 05/05/2021 05/06/2021 05/07/2021 acetaminophen (Tylenol) tablet 1,000 mg 1,000 mg, Oral, Every 6 hours scheduled, First dose on 04/30/21 at 1800, Until Discontinued, Routine 0621 (Given - Provider: Reny Padron RN)1348 (Given - Provider: Savanna Pressley RN)1831 (Given - Provider: Savanna Pressley RN) 0019 (Given - Provider: Reny Padron RN)0554 (Given - Provider: Reny Padron RN)1240 (Given - Provider: Luci Mccann RN)1809 (Given - Provider: Luci Mccann RN) 0045 (Given - Provider: Jennifer Bernard, DIANE)0625 (Given - Provider: Jennifer Bernard, DIANE) baclofen (Lioresal) tablet 10 mg 10 mg, Oral, 3 times daily, First dose on 04/30/21 at 1615, Until Discontinued, Routine 1000 (Given - Provider: Savanna Pressley RN)1617 (Given - Provider: Savanna Pressley RN)2015 (Given - Provider: Reny Padron RN) 0811 (Given - Provider: Luci Mccann, DIANE)1810 (Given - Provider: Luci Mccann, DIANE)2100 (Given - Provider: Jennifer Bernard, DIANE) 0851 (Given - Provider: Luci Mccann RN) buPROPion (Wellbutrin) tablet 150 mg 150 mg, Oral, 2 times daily, First dose on 04/30/21 at 2100, Until Discontinued, Routine 1000 (Given - Provider: Savanna Pressley RN)2013 (Given - Provider: Reny Padron RN) 08 (Given - Provider: Luci Mccann RN)2100 (Given - Provider: Jennifer Bernard RN) 0850 (Given - Provider: Luci Mccann RN) cyanocobalamin (Vitamin B-12) tablet 1,000 mcg 1,000 mcg, Oral, Daily, First dose on Sun05/02/21 at 1230, Until Discontinued, Routine 1000 (Given - Provider: Savanna Pressley RN) 08 (Given - Provider: Luci Mccann RN) 0852 (Given - Provider: Luci Mccann RN) enoxaparin (Lovenox) syringe 60 mg 60 mg, Subcutaneous, 2 times daily, First dose on Sun05/02/21 at 1300, Until Discontinued, Routine 1000 (Given - Provider: Savanna Pressley RN)2015 (Given - Provider: Reny Padron RN) 08 (Given - Provider: Luci Mccann RN)2100 (Given - Provider: Jennifer Bernard RN) 0850 (Given - Provider: Luci Mccann RN) ferrous sulfate EC tablet 324 mg 324 mg, Oral, Daily with breakfast, First dose on Sun05/03/21 at 0800, Until Discontinued 1000 (Not Given - Provider: Abimael Coronado, JaradD - Reason: Other - Comment: Retimed for levofloxacin)2014 (Given - Provider: Reny Padron RN) 2100 (Given - Provider: Jennifer Bernard RN) FLUoxetine (PROzac) capsule 40 mg 40 mg, Oral, 2 times daily, First dose on Sun05/02/21 at 1230, Until Discontinued, Routine 1000 (Given - Provider: Savanna Pressley RN)2013 (Given - Provider: Reny Padron RN) 08 (Given - Provider: Luci Mccann RN)2099 (Given - Provider: Jennifer Bernard RN) 0851 (Given - Provider: Luci Mccann RN) gabapentin (Neurontin) capsule 300 mg 300 mg, Oral, Every 8 hours, First dose (after last modification) on Sun05/03/21 at 0015, Until Discontinued, Routine 1000 (Given - Provider: Savanna Pressley RN)1617 (Given - Provider: Savanna Pressley RN) 0019 (Given - Provider: Reny Padron RN)0810 (Given - Provider: Luci Mccann RN)181 (Given - Provider: Luci Mccann RN) 0045 (Given - Provider: Jennifer Bernard RN)0851 (Given - Provider: Luci Mccann RN) levoFLOXacin (Levaquin) tablet 750 mg (COMPLETED) 750 mg, Oral, Daily, 3 doses, First dose on Jessi 05/05/21 at 1015, Last dose on 05/07/21 at 0900, Routine 1000 (Given - Provider: Savanna Pressley RN) 08 (Given - Provider: Luci Mccann RN) 0851 (Given - Provider: Luci Mccann RN) levothyroxine (Synthroid, Levoxyl) tablet 125 mcg 125 mcg, Oral, Daily before breakfast, First dose on 05/01/21 at 0730, Until Discontinued, Routine 0621 (Given - Provider: Reny Padron RN) 0554 (Given - Provider: Reny Padron RN) 0625 (Given - Provider: Jennifer Bernard, DIANE) linaCLOtide (Linzess) tablet 145 mcg 145 mcg, Oral, Every morning, First dose on Sun05/03/21 at 0600, Until Discontinued, Routine 0621 (Given - Provider: Reny Padron RN) 0556 (Not Given - Provider: Reny Padron RN - Reason: Patient/family refused) 0625 (Not Given - Provider: Jennifer Bernard RN - Reason: Patient/family refused) methocarbamol (Robaxin) tablet 500 mg 500 mg, Oral, Every 8 hours, First dose (after last modification) on 05/01/21 at 0015, Until Discontinued, Routine 1000 (Given - Provider: Savanna Pressley RN)1617 (Given - Provider: Savanna Pressley RN) 0019 (Given - Provider: Reny Padron RN)0811 (Given - Provider: Luci Mccann RN)1810 (Given - Provider: Luci Mccann RN) 0045 (Given - Provider: Jennifer Bernard, DIANE)0851 (Given - Provider: Luci Mccann RN) montelukast (Singulair) tablet 10 mg 10 mg, Oral, Daily, First dose on Sun04/30/21 at 1615, Until Discontinued, Routine 1000 (Given - Provider: Savanna Pressley RN) 0811 (Given - Provider: Luci Mccann RN) 0851 (Given - Provider: Luci Mccann RN) multivitamin (Theragran-M) tablet 1 tablet 1 tablet, Oral, Daily, First dose on Sun05/02/21 at 1230, Until Discontinued 1001 (Not Given - Provider: Abimael Coronado, Ayse - Reason: Other - Comment: Retimed for levofloxacin administration)2013 (Given - Provider: Reny Padron RN) 2099 (Given - Provider: Jennifer Bernard RN) nystatin (Mycostatin) [id number] UNIT/GM powder 1 application Topical, 2 times daily, First dose on Sun05/04/21 at 1215, Until Discontinued, Routine 1100 (Not Given - Provider: Savanna Pressley RN - Reason: Patient/family refused)2016 (Given - Provider: Reny Padron RN) 08 (Given - Provider: Luci Mccann RN)2101 (Given - Provider: Jennifer Bernard RN) 0904 (Not Given - Provider: Luci Mccann RN - Reason: Other) pantoprazole (Protonix) EC tablet 40 mg 40 mg, Oral, 2 times daily before meals, First dose (after last modification) on Sun05/02/21 at 1700, Until Discontinued, Routine 1000 (Given - Provider: Savanna Pressley RN)1616 (Given - Provider: Savanna Pressley RN) 0811 (Given - Provider: Luci Mccann RN)1809 (Given - Provider: Luci Mccann RN) 0851 (Given - Provider: Luci Mccann RN) senna-docusate (Nia-Colace) 8.6-50 MG per tablet 2 tablet 2 tablet, Oral, 2 times daily, First dose on Sun05/02/21 at 2100, Until Discontinued, Routine 1022 (Not Given - Provider: Savanna Pressley RN - Reason: Patient/family refused)2026 (Not Given - Provider: Reny Padron RN - Reason: Order parameters not met) 0820 (Not Given - Provider: Luci Mccann RN - Reason: Patient/family refused)2101 (Not Given - Provider: Jennifer Bernard, RN - Reason: Patient/family refused) 09 (Not Given - Provider: Luci Mccann RN - Reason: Patient/family refused) simvastatin (Zocor) tablet 5 mg 5 mg, Oral, Nightly, First dose on 05/04/21 at 2100, Until Discontinued, Routine 2014 (Given - Provider: Reny Padron RN) 0045 (Given - Provider: Jennifer Bernard, RN) PRN Medication Order 05/05/2021 05/06/2021 05/07/2021 benzocaine-menthol (Chloraseptic) 6-10 MG lozenge 1 lozenge 1 lozenge, Mouth/Throat, Every 4 hours PRN, Starting on 05/01/21 at 1825, Until 05/07/21 at 1114, Routine, sore throat calcium carbonate (Tums) chewable tablet 500 mg 500 mg, Oral, 4 times daily PRN, Starting on 05/01/21 at 1825, Until 05/07/21 at 1114, Routine, indigestion, heartburn hydrOXYzine pamoate (Vistaril) capsule 25 mg 25 mg, Oral, 3 times daily PRN, Starting on 05/02/21 at 1159, Until 05/07/21 at 1114, Routine, anxiety 2014 (Given - Provider: Reny Padron RN) melatonin tablet 6 mg 6 mg, Oral, Nightly PRN, Starting on 05/01/21 at 1825, Until 05/07/21 at 1114, Routine, sleep 2014 (Given - Provider: Reny Padron RN) oxyCODONE (Roxicodone) immediate release tablet 5 mg(Linked Group 1) 5 mg, Oral, Every 4 hours PRN, Starting on 04/30/21 at 2019, Until 05/07/21 at 1114, Routine, moderate pain, severe pain 0622 (Given - Provider: Reny Padron RN)1019 (Given - Provider: Savanna Pressley RN)1617 (Given - Provider: Savanna Pressley RN)2014 (Given - Provider: Reny Padron RN) 0019 (Given - Provider: Reny Padron RN)0553 (Given - Provider: Reny Padron RN)1240 (Given - Provider: Luci Mccann, RN) 0049 (Given - Provider: Jennifer Bernard RN)0851 (Given - Provider: Luci Mccann, RN) phenol (Chloraseptic) 1.4 % mouth/throat spray 1 spray 1 spray, Mouth/Throat, Every 2 hour PRN, sore throat, Sore mouth, Instruct patient to spit out after 15 seconds., Starting on 05/01/21 at 1749 simethicone (Mylicon) chewable tablet 80 mg 80 mg, Oral, Every 6 hours PRN, Starting on 05/01/21 at 1825, Until 05/07/21 at 1114, Routine, flatulence sodium chloride 0.9 % flush 10 mL(Linked Group 2) 10 mL, Intravenous, Every 12 hours PRN, Starting on 04/30/21 at 1608, Until 05/07/21 at 1114, Routine, line care Linked Groups Order Group 1: oxyCODONE (Roxicodone) immediate release tablet 5 mgJump to med 5 mg, Oral, Every 4 hours PRN, Starting on 04/30/21 at 2019, Until 05/07/21 at 1114, Routine, moderate pain, severe pain Or oxyCODONE (Roxicodone) immediate release tablet 10 mg (CANCELED) 10 mg, Oral, Every 4 hours PRN, Starting on 04/30/21 at 2019, Until Sun05/04/21 at 1250, Routine, severe pain Group 2: Insert peripheral IV (COMPLETED) Once, On 04/30/21 at 1609, For 1 occurrence And Saline lock IV (COMPLETED) Once, On 04/30/21 at 1609, For 1 occurrence And sodium chloride 0.9 % flush 10 mLJump to med 10 mL, Intravenous, Every 12 hours PRN, Starting on 04/30/21 at 1608, Until 05/07/21 at 1114, Routine, line care documented in this encounter 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
--- OUTSIDE RECORDS SUMMARY | 2024-04-06 21:59 | XMS_ITS | Encounter Summary ---
Author Organization Healthcare Address [address] [id number] Care Team Providers Care Wire Puller Name Role Phone Eliecer Salima Tate SWANN Primary Care Provider [phone] Reason for Visit * Reason Comments Fall * Auth/Cert Specialty Diagnoses / Procedures Referred By Contac t Referred To Contact Diagnoses Closed fracture of distal end of left femur, unspecified fracture morphology, initial encounter (CMS/[facility]) Fall, femur fx Ji Atkins MD [address] [place] [address] Phone: tel: fax: [facility] H Inpatient [address] [place] [address] Phone: tel: Referral ID Status Reason Start Date Expiration Date Visits Re quested Visits Authorized [id number] 1 1 Encounter Details Date Type Department Care Team (Late st Contact Info) Description 05/01/2021 9:15 AM EST - 05/01/2021 2:32 PM EST Surgery [facility] A OPERATING ROOM [address] [place] [id number] Bebeto Flynn MD [address] [place] [address] INSERTION, INTRAMEDULLARY JESSE, FEMUR Abdiel Periprosthetic Retrograde Femur Nail Surgery Details Date/Time Status Location OR Service Patient Class Case Class Case Type Trauma Case? 05/01/2021 9:15 AM Posted PAO OR [facility] OR 01 Orthopedic Surgery Inpatient B-Urgent: to be done within 4 hours Panel 1 Procedure LRB Anes Op Region Wound Class Comments INSERTION, INTRAMEDULLARY JESSE, FEMUR Alsea Periprosthetic Retrograde Femur Nail Left General Leg Upper 1A Case #2; Supine, Anuj table, Alsea periprosthetic femur nail, Abdiel PS poly; trauma toolbox, ortho soft tissue Surgeon Surgeon Role Service Panel Bebeto Flynn MD Primary Orthopedic Surgery 1 Crow Lockwood MD Resident - Assisting 1 documented in this encounter Social History Tobacco [...] Sign Reading Time Taken Comments Blood Pressure 117/79 05/01/2021 7:57 AM EST Pulse 77 05/01/2021 7:57 AM EST Temperature 36.8 ??C (98.3 ??F) 05/01/2021 7:57 AM ES T Respiratory Rate 16 05/01/2021 7:57 AM EST Oxygen Saturation 96% 05/01/2021 7:57 AM EST Inhaled Oxygen Concentration - - Weight 120 kg (264 lb 8.8 oz) 04/30/2021 8:00 PM EST Height 154.9 cm (5' 0.98 ) 04/30/2021 8:00 PM ES T Body Mass Index 50.01 05/01/2021 3:50 PM EST documented in this encounter Discharge Instructions * Discharge Instructions* Markie Cooley, RN - 05/03/2021 8:58 AM EST Images from [...] clot in the space between bone fragments. [employer] last reviewed this educational content on 09/04/2017 ?? [id number] The [employer]. All rights reserved. This information is not intended as a substitute for professional medical care. Always follow your healthcare professional's instructions. * Attachments The following attachments cannot be sent through Care Everywhere. * Femur Fracture Open Reduction and Internal Fixation (ORIF), Understanding (Colombian) * Femur Fracture Open Reduction and Internal Fixation (ORIF), Having (Colombian) * Fractured Femur: Internal Fixation, Discharge Instructions for (Colombian) * Surgical Site Infections, Preventing (Colombian) * Weight Bearing Status: What It Means ([place]) (Colombian) * Acetaminophen Oral Tablet 500 mg (Colombian) * Enoxaparin Prefilled Syringe 60 mg/0.6 mL (Colombian) * Gabapentin Oral Capsule 300 mg (Colombian) * Levofloxacin Oral Tablet 750 mg (Colombian) * Melatonin Oral Tablet 3 mg (Colombian) * Methocarbamol Oral Tablet 500 mg (Colombian) * Oxycodone Oral Tablet 5 mg (Colombian) * Controlled Substance Discharge Sheet - [facility] () ([place]ian) * Senna /Docusate Oral Tablet 8.6 mg / 50 mg (Colombian) documented in this encounter Medications at Time [...] Yamini Belcher APRN Levaquin x 3 days Present on Admission: ??? [...] HH PT/OT. Referrals for DME sent to [facility]. Referrals sent for HH. No accepting agency at this time. Provider to give pt a script for outpt PT/OT in the event she isn't picked up by HH. Will follow and assist asneeded. Marilu CHAVIRA, RN Trauma/EGS [phone] * Discharge Instr - Appointments - Isiah Crawley RN - 05/06/2021 9:44 AM EST Follow up with Primary Care Provider one week after discharge. Follow up as needed with trauma clinic (Sunday clinic) [address] [place] [address] Clinic 1st [place] [address] Questions or Concerns and Appointments If there are questions or concerns after discharge from the hospital, please call [phone] and ask for Blue Surgery Nurse. Working hours are Sunday - Sunday 8:00 AM to 4:00 PM. After hours, weekends and holidays please call [phone] and ask for the resident missing persons investigator for Blue Surgery. For appointments please call [phone]. Medication requests should be made between the hours of 9:00 AM to 3:00 PM Sunday thru Sunday. Please note that based upon recent changes to [place] law related to prescribing opioid pain medications, [...] Transfer Exam: Sit to stand Level of Vilas: Stand-by assist Physical/Nonphysical Assist: Verbal Cues (for hand placement) Assistive Device: Walker, rolling Transfer Exam: Stand to Sit Level of Vilas: Stand-by assist Physical/Nonphysical Assist: Verbal Cues (for [...] 10:15 AM. * Discharge Summary - Yamini Belcher APRN - 05/06/2021 8:31 AM EST Images from the original note were not included. Hospitalization Admit Date/Time: 04/30/2021 12:34 PM Admitting Attending: Ji Atkins Discharge Date: 05/07/2020 Discharge Attending Physician: Dory Slade Md PCP name and Address: Salima Gonzáles, DO [address] / [facility] [address] Referring provider name and address: Shaquille Gaming MD [address] [address] Chief Concern, Brief History of Present Illness, [...] as needed with trauma clinic (Sunday clinic) [address] [place] [address] 1st [place] [address] Questions or Concerns and Appointments If there are questions or concerns after discharge from the hospital, please call [phone] and ask for Blue Surgery Nurse. Working hours are Sunday - Sunday 8:00 AM to 4:00 PM. After hours, weekends and holidays please call [phone] and ask for the resident missing persons investigator for Blue Surgery. For appointments please call [phone]. Medication requests should be made between the hours of 9:00 AM to 3:00 PM Sunday thru Sunday. Please note that based upon recent changes to [place] law related to prescribing opioid pain medications, our providers will not provide refills on controlled medications after your hospital discharge following a major surgery or trauma. [place] KAR9:260. Surgeries and Procedures Procedures performed in this encounter Procedures ??? Case Request Operating Room: INSERTION, INTRAMEDULLARY JESSE, FEMUR Alsea Periprosthetic Retrograde Femur Nail INSERTION, INTRAMEDULLARY JESSE, FEMUR Alsea Periprosthetic Retrograde Femur Nail (Left) Medication List [...] Your Medications These medications were sent to [facility] [place], [place] - [address] , [place] [facility] [address] ?? acetaminophen 500 MG tablet ?? enoxaparin [...] 05/01 WBAT LLE Follow up with Dr. lFynn 05/17/21 Fall Overview Addendum 05/02/2021 7:08 AM [...] Time Provider Department Center 05/17/2021 8:10 AM Bebeto Flynn MD ORTHGSORB GS MOB Pertinent Physical Exam At Time of [...] Note Ambika Pratt 55 y.o. female CSN: [id number] Room/Bed 874/874A Nutrition evaluation type: assessment Reason for evaluation: LOS Hospital course: 55 yo female S/P ORIF left femur fracture on 05/01. Past medical/ surgical history: has a past medical history of COPD (chronic obstructive pulmonary disease) ([facility]), Diabetes mellitus ([facility]), Hypertensive heart disease without congestive heart failure, and Lactic acidosis (04/30/2021). Social history: Additional comments: Vitals and Basic Assessment: BP: 115/82 Temp: 36.7 ??C (98.1 ??F) Oxygen Therapy: None (Room air) O2 Delivery Method: Nasal cannula [place] Coma Scale Score: 15 Ranulfo Scale Score: [...] Weight Evaluation: Extreme Obesity (BMI > 40) Waves Body Weight (kg): 47.7 Percent Waves Body Weight: 252 Estimated Needs: Grams of CHO Percent calories from CHO: Current Nutrition Intake: Diet Order: Adult Diet Diet Texture: Regular Adult Carbohydrate Restriction: Consistent CHO 2 (2220-7828 Usman, 80 g/meal) Percent Meals Eaten (%): 75%/75%/33% (05/03) Diet Experience and Nutrition History: Diet Education Provided: Will monitor Pertinent home medications: Druze needs: Nutrition Focused Physical Exam: Unable to [...] Note Ambika Pratt 55 y.o. female CSN: [id number] Admission: 04/30/2021 12:34 PM Primary Problem: Closed fracture of left distal femur (CMS/HCC) Anticipated Discharge Date: tbd Has Discharge Plans Changed? No Additional Comments Per primary treatment team, patient medically ready for rehab. Referral sent to [facility] 05/03, reviewing for possible acceptance. will continue to follow and assist. JOSE Castillo, REPORTS ANALYSIS MANAGER Trauma/EGS Maintenance Service Supervisor [phone] * Progress Notes - Tad Fuller PTA - 05/05/2021 11:55 AM EST Physical Therapy Treatment Patient Name: Ambika Pratt Today's Date: 05/05/2021 PT Discharge Recommendations: Acute rehab Equipment Recommended: Defer to facility Subjective Patient agreed to therapy session. She reported that she was just about to ring out for someone to take her to there bathroom. RN approved therapy session. Participants in Care Family/Caregiver Present: No Nailer Machine: Not Applicable Presentation Oxygen Therapy: None (Room [...] at 3:36 PM. * Progress Notes - Yamini Belcher, OUTFITTER CABIN - 05/05/2021 10:02 AM EST 05/05/21 Ambika [...] 05/04/2021 12:46 PM EST 05/04/21 Ambika Aponte Terence HPI 55 yr old female admitted due to fall on 04/30. Past 24 hrs: Ms. Aponte is awake and in the bed this morning on rounds. VSS. ORA. Patient denies n/v, shortness of breath, difficulty breathing, chest pain, weakness or paresthesia. Patient reports that patient she is experiencing burning with urination. Patient tolerating po intake. Last BM TREASURY SPECIALIST. Patient and nurse have no other concerns [...] sessions. Participants in Care Family/Caregiver Present: No Nailer Machine: Not Applicable Presentation Oxygen Therapy: None (Room [...] Pain Management Interventions: position adjusted Delirium Screening [place] Agitation Sedation Scale (RASS): [...] transfer. Bed Mobility Exam: Rolling/Turning Level of Vilas: Contact guard Physical/Nonphysical Assist: Set-up required Assistive Device: Bed rails Bed Mobility Exam: Scooting/Bridging Level of Vilas: Contact guard (in sitting to edge of bed) Physical/Nonphysical Assist: Set-up required,Verbal Cues Assistive Device: Bed rails Bed Mobility Exam: Supine to Sit Level of Vilas: Contact guard Physical/Nonphysical Assist: Set-up required,Verbal Cues,Moderate cues Assistive Device: Bed rails Bed Mobility Exam: Sit to Supine Level of Vilas: (Pt left seated in bedside chair.) Transfers Transfer Exam: Sit to stand Level of Vilas: Contact guard Physical/Nonphysical Assist: Set-up required,Verbal Cues,Minimal cues Assistive Device: Walker, rolling Transfer Exam: Stand to Sit Level of Vilas: Contact guard Physical/Nonphysical Assist: Set-up required,Verbal Cues,Minimal cues Assistive Device: Walker, rolling Transfer Exam: Bed to Chair/Chair to Bed Level of Vilas: Contact guard Physical/Nonphysical Assist: Set-up required,Verbal Cues [...] a helper. 5 Set-up or Clean-up Assistance Kirby sets up or cleans up; patient completes activity. Kirby assists only prior to or following the activity. 4 Supervision or touching assistance Kirby provides verbal cues and/or touching/steadying and/or contact guard assistance as patient completes activity. Assistance may be provided throughout the activity or intermittently. 3 Partial/Moderate Assistance Kirby does LESS THAN HALF the effort. Kirby lifts, holds or supports trunk or limbs, but provides less than half the effort. 2 Substantial/Maximal Assistance Kirby does MORE THAN HALF the effort. Kirby lifts or holds trunkor limbs and provides more than half the effort. 1 Dependent Kirby does ALL of the effort. Patient does [...] 05/02/21 2 weeks * Care Plan - Shaquille Mak - 05/04/2021 1:19 AM EST Problem: Adult [...] Note Ambika Pratt 55 y.o. female CSN: [id number] Admission: 04/30/2021 12:34 PM Primary Problem: Closed fracture of left distal femur (CMS/HCC) Anticipated Discharge Date: tbd Has Discharge Plans Changed? No Additional Comments Per primary treatment team, patient is medically ready for discharge on this date. PT re-evaluated on this date due to concerns of discharge home. Recs changed to acute rehab. SW sent referrals to [facility] and the [facility] on this date. SW will continue to follow and assist. JOSE Castillo, REPORTS ANALYSIS MANAGER Trauma/EGS Maintenance Service Supervisor [phone] * Progress Notes - Gabby Pratt APRN [...] days Lab Units 05/02/21 0359 05/01/21 02204/30/21 1419 CREATININE mg/dL 0.81 0.85 0.87 Medications [...] APRN * Progress Notes - Aurora Ryan, TREASURY SPECIALIST - 05/03/2021 11:03 AM EST Physical Therapy [...] Mobility Bed Mobility Exam: Scooting/Bridging Level of Vilas: Minimum assist (75% patient's effort) Physical/Nonphysical Assist: Set-up required,Verbal Cues Assistive Device: Bed rails Bed Mobility Exam: Supine to Sit Level of Vilas: Minimum assist (75% patient's effort) Physical/Nonphysical Assist: Moderate cues (HOB flat) Assistive Device: Bed rails Transfers Transfer Exam: Sit to stand Level of Vilas: Minimum assist (75% patient's effort) Physical/Nonphysical Assist: Set-up required,Verbal Cues,Moderate cues Assistive Device: Walker, rolling Transfer Exam: Stand to Sit Level of Vilas: Contact guard Physical/Nonphysical Assist: Set-up required,Verbal Cues,Minimal cues Assistive Device: Walker, rolling Toilet Transfer Level of Vilas: Minimum assist (75% patient's effort) Physical/Nonphysical Assist: [...] Assessment Unable to assess 05/03/21799 Nia-Wound Assessment Red;Ecchymotic;Erythematous;Hyperpigmented;Interior;Dry 05/03/21799 Drainage Amount None 05/03/21 08 Treatments [...] please contact the Orthopedic Transition Nurse at [phone] Sunday through Sunday 8:00 am to 2:30 pm. If you feel your concern is a medical emergency please call 911 immediately. Based upon recent changes to [place] law related to prescribing opioid pain medications, [...] standpoint Travis Neumann MD PGY-3, Orthopaedic Surgery [facility] Orthopaedic Trauma Service Pager: [phone] Orthopaedic Recon/Spine/Foot and Ankle Service Pager: [phone] Personal Pager: [phone] Cosigned by Vadim Molina MD at 05/06/2021 1:15 PM EST Associated attestation - Vadim Molina MD - 05/06/2021 1:15 PM EST Signature Only * Care Plan - Shaquille Mak - 05/03/2021 2:37 AM EST Problem: Adult [...] paresthesia. She is tolerating po intake. Removing steinberg this morning. No BM this admission. Patient [...] ortho - multimodal pain control - remove steinberg - start DVT ppx Dispo: PT/OT after surgery Edited by: Gabby Pratt APRN at 05/02/2021 1225 Gabby Pratt APRN * Progress Notes - Karma Gamez - 05/02/2021 10:18 AM EST Case Management Adult Initial Progress Note Ambika Aguilar Aponte Terence 55 y.o. female CSN: [id number] Admission: 04/30/2021 12:34 PM Primary Problem: Closed fracture of left distal femur (CMS/HCC) Bacteriology Professor reviewed chart and spoke with patient to complete this Initial Case Management Assessment. PCP: Salima Gonzáles DO Emergency Contact: Extended Emergency Contact Information Primary Emergency Contact: Ambreen De Anda Mobile Relation: Daughter Preferred language: Colombian Nailer Machine needed? No Insurance: Primary Visit Coverage Payer Plan Sponsor Code Group Number Group Name ANTHEM MEDICARE ANTHEM SENIOR ADVANTAGE [id number] Primary Visit Coverage Subscriber Subscriber ID Subscriber Name Subscriber SSN Subscriber Address [id number] AMBIKA MOSCOSO [id number] [place] [address] Patient information: Patient is a 55 y.o. female admitted due to a fall from standing after tripping over her grandson'stoys. Injuries include closed fracture of left distal femur. Daily Living Activities: [address] [place] [address] Anticipated Discharge Date: tbd Assistance Available at [...] will continue to follow and assist. 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 Vaishali tstates that she can stay with her father temporarily in single-level home with ramp to enter with walk-in shower with seat. Prior Level of Function Receives Help From: No assist required prior to admission Level of Mobility: Ambulatory- community Mobility Vilas: Independent gait without device History of Falls: [...] Mobility Exam: Supine to Sit Level of Vilas: Minimum assist (75% patient's effort) Physical/Nonphysical Assist: HOB elevated Transfers Transfer Exam: Sit to stand Level of Vilas: Contact guard Assistive Device: Walker, rolling Transfer Exam: Stand to Sit Level of Vilas: Contact guard Assistive Device: Walker, rolling Demonstrated [...] Standardized Assessments [facility] 6-Clicks Mobility Assessment Difficulty patient has turning [...] railing?: Unable [facility] 6-Clicks Mobility Assessment Total : 18 Assessment [...] Procedures 05/01/2021 Procedure(s): INSERTION, INTRAMEDULLARY JESSE, FEMUR Alsea Periprosthetic Retrograde Femur Nail Past Medical History Patient has a past medical history of COPD (chronic obstructive pulmonary disease) ([facility]), Diabetes mellitus ([facility]), Hypertensive heart disease without congestive heart failure, [...] Not accessible Home Living Comments: 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 Pt scooted(I) in bedside chair to back of chair.) Physical/Nonphysical Assist: Set-up required,Verbal Cues Assistive Device: Other (draw sheet) Bed Mobility Exam: Supine to Sit Level of Vilas: Minimum assist (75% patient's effort) Physical/Nonphysical Assist: HOB elevated,Set-up required,Verbal Cues Assistive Device: Bed rails Bed Mobility Exam: Sit to Supine Level of Vilas: (Pt left seated in bedside chair.) Balance [...] looking forward to working with PT today.. +Steinberg OBJECTIVE PHYSICAL EXAMINATION Body mass index is [...] up: Dr. Flynn, 05/17/21 Disposition: admitted to [facility] Johnny Agudelo MD PGY-1, Orthopaedic Surgery [facility] Orthopaedic Trauma Service Pager: [phone] Orthopaedic Recon/Spine/Foot and Ankle Service Pager: [phone] Cosigned by Bebeto Flynn MD at 05/02/2021 [...] PM EST Operative Note Date: 05/01/21 Location: [place] Name: Ambika Pratt, : 1965, Diagnoses: Pre-op Diagnosis Closed fracture of distal end of left femur, unspecified fracture morphology, initial encounter ([facility]) Post-op Diagnosis Closed fracture of distal end of left femur, unspecified fracture morphology, initial encounter ([facility]) Procedure(s): Treatment of femoral shaft fracture with intramedullary implant Attending Surgeon(s): * Bebeto Flynn - Primary System Support Technician(s): Dr. Crow Locwkood Anesthesia: General ASA: III Blood Administration: Blood [...] RETRO T2 ALPHA 11MM X 340MM - [id number] Implanted Screw SCREW LOCKING T2 D5XL80 - [id number] - [id number] Implanted [id number] SCREW LOCKING T2 D5XL50 - [id number] Implanted SCREW LOCKING T2 D5XL60 - [id number] Implanted SCREW LOCKING T2 D5XL75 - [id number] Implanted SCREW LOCKING T2 D5XL55 - [id number] Implanted SCREW LOCKING T2 D5X32.5 - [id number] Implanted SCREW LOCKING T2 D5X37.5 - [id number] Implanted Specimen: none Findings: stable fracture, stable [...] knee was noted to be a Press-Fit Alsea Triathlon. Despite continuing the hospital, implant records [...] proximal interlocking bolts were placed using perfect pilot station technique. Final fluoroscopic imaging demonstrated acceptable reduction and spiritism of length alignment rotation when comparing lessre [...] 05/01/2021 1:45 PM EST Date: 05/01/21 Location: [place] Name: Ambika Pratt, : 1965, Diagnoses: Pre-op Diagnosis Closed fracture of distal end of left femur, unspecified fracture morphology, initial encounter ([facility]) Post-op Diagnosis Closed fracture of distal end of left femur, unspecified fracture morphology, initial encounter ([facility]) Procedure(s): Retrograde IMN L femur fx Attending Surgeon(s): Tiny Flynn - Primary System Support Technician(s): florin Anesthesia: General ASA: III Blood Administration: Blood Product Administration History None Estimated Blood Loss: 250 mL Drains: * None in log * Implants Type Name Action Serial No. Nail NAIL FEMORAL RETRO T2 ALPHA 11MM X 340MM - [id number] Implanted Screw SCREW LOCKING T2 D5XL80 - [id number] - [id number] Implanted 0180-2023 SCREW LOCKING T2 D5XL50 - [id number] Implanted SCREW LOCKING T2 D5XL60 - [id number] Implanted SCREW LOCKING T2 D5XL75 - [id number] Implanted SCREW LOCKING T2 D5XL55 - [id number] Implanted SCREW LOCKING T2 D5X32.5 - [id number] Implanted SCREW LOCKING T2 D5X37.5 - [id number] Implanted Specimen: none Findings: stable fracture Complications: None; patient tolerated the procedure well. Submitted by: Crow Lockwood MD - 05/01/2021 - 3:57 PM Cosigned by Bebeto Flynn MD at 05/02/2021 7:55 AM EST * Hospital Course - Yamini Belcher, YAIMA - 05/01/2021 10:31 AM EST Admitted to [...] needed with trauma clinic (Sunday clinic) [address] [facility] 1st floor [place], [place] [id number] Questions or Concerns and Appointments If there are questions or concerns after discharge from the hospital, please call [phone] and ask for Blue Surgery Nurse. Working hours are Sunday - Sunday 8:00 AM to 4:00 PM. After hours, weekends and holidays please call [phone] and ask for the resident missing persons investigator for Blue Surgery. For appointments please call [phone]. Medication requests should be made between the hours of 9:00 AM to 3:00 PM Sunday thru Sunday. Please note that based upon recent changes to [place] law related to prescribing opioid pain medications, [...] Edited by: Ava Joseph APRN at 05/01/2021 0886 Past Medical History: Active Ambulatory Problems Diagnosis Date Noted ??? No Active Ambulatory Problems Resolved Ambulatory Problems Diagnosis Date Noted ??? No Resolved Ambulatory Problems Past Medical History: Diagnosis Date ??? COPD (chronic obstructive pulmonary disease) (CMS/[facility]) ??? Diabetes mellitus (CMS/[facility]) ??? Hypertensive heart disease without congestive heart [...] Results from last 7 days Lab Units 05/01/211 04/30/21 1420 HEMOGLOBIN g/dL 12.1 13.5 HEMATOCRIT [...] (Principal) Closed fracture of left distal femur ([facility]) Overview Addendum 04/30/2021 4:01 PM by Forrest [...] Hdz MD Admit to trauma floor Diabetes ([facility]) Overview Addendum 05/01/2021 8:17 AM by Ava [...] Resident Physician Orthopedic Reconstructiion ([facility]) Service Pager: [phone] Orthopedic Trauma ([facility]) Service Pager: [phone] Cosigned by Bebeto Flynn MD at 05/01/2021 [...] Forrest Hdz MD Consult ordered by: Samson Nguyen MD Reason for consult: Trauma evaluation Assessment/Recommendations: [...] history of COPD (chronic obstructive pulmonary disease) ([facility]), Diabetes mellitus ([facility]), and Hypertensive heart disease without congestive heart [...] Exposure Concern ??? Not on file Employer: [employer] Immunizations VACCINE/DOSE Flu Tetanus Pneumovax Shingles [...] (264 lb 8.8 oz), SpO2 98 %. [place] 15 Intubated No Recent Results Labs in [...] CT Forrest Hdz MD Cosigned by Ji Atkins MD at 04/30/2021 4:18 PM EST Associated attestation - Ji Atkins MD - 04/30/2021 4:18 PM EST I [...] knee replacements with Dr. Doty, now in [place], [place]. Surgeries performed in [facility]. L TKA 2013. Press fit Abdiel Triathalon. Reports uncomplicated postoperative course, satisfied with outcome. R TKA 2015. Lithotripsy approx 10 days ago Heel spur removal x2 x2 Hysterectomy Cholecystectomy FAMILY HISTORY Family history reviewed and otherwise non-contributory. SOCIAL HISTORY Tobacco: 1/2ppd [id number] EtOH: denies Illicits: denies Lives in [place], [place] with daughter Employment: [employer] REVIEW OF SYSTEMS Review of systems is [...] institutional protocol Daniel Campoverde MD Orthopaedic Surgery [facility] Orthopaedic Trauma Service Pager: [phone] Orthopaedic Recon/Spine/Foot and Ankle Service Pager: [phone] Cosigned by Bebeto Flynn MD at 05/01/2021 [...] Exposure Concern ??? Not on file Employer: [employer] Travel History Relevant International Travel History: [...] left femur, unspecified fracture morphology, initial encounter ([facility]) MDM Number of Diagnoses or Management Options Closed fracture of distal end of left femur, unspecified fracture morphology, initial encounter ([facility]) Diagnosis management comments: I assessed this patient and staffed with Dr. Nguyen. In summary this 55-year-old female presents to [...] progress: stable Donna Marino MD Resident 04/30/21 [id number] Cosigned by Samson Nguyen MD at 05/01/2021 8:51 AM EST Associated attestation - Samson Nguyen MD - 05/01/2021 8:51 AM EST I [...] left femur, unspecified fracture morphology, initial encounter ([facility]) PROTHROMBIN TIME(PT) / INR Routine 05/01/2021 2:21 [...] Comment 05/06/2021 11:40 AM EST [facility] [employer] Developer ID Iram Phillips 05/06/2021 11:40 AM EST [facility] Device ID [id number] 05/06/2021 11:40 AM EST [facility] Specimen Type POC Capillary 05/06/2021 11:40 AM EST [facility] Blood Capillary blood specimen / Unknown 05/06/2021 11:34 AM EST 05/06/2021 11:40 AM EST Dory Slade MD LAB POINT OF CARE TEST DOCKED DEVICE UNSOLICITED RESULTS Final Result Performing Organization Address City/State/[facility] Co de Phone Number [facility] [address] [place] [address] * SARS CoV-2/COVID-19 by PCR (05/06/2021 10:05 AM EST) [facility] SARS CoV-2/COVID-1 9 RNA PCR Result Not Detected Not Detected 05/06/2021 10:07 PM EST [facility] Swab Nasopharyngeal structure / Unknown Non-blood Collection / Unknown 05/06/2021 10:05 AM EST 05/06/2021 10:10 AM EST Narrative [facility] - 05/06/2021 10:07 PM EST [...] recommendations. This test was performed using the wufoo M2000 SARS CoV-2 test, a qualitative PCR-based [...] OR DERABLES Final Result Performing Organization Address [facility] Co de Phone Number [facility] [address] [place] [address] * (ABNORMAL) POCT glucose meter (05/06/2021 7:26 AM EST) POCT Glucose 112(H) 74 - 99 mg/dL 05/06/2021 7:30 AM EST [facility] Comment:Accuracy of [...] for testing. Comment 05/06/2021 7:30 AM EST [facility] [employer] Developer ID Iram Phillips 05/06/2021 7:30 AM EST [facility] Device ID [id number] 05/06/2021 7:30 AM EST [facility] Specimen Type POC Capillary 05/06/2021 7:30 AM EST [facility] Blood Capillary blood specimen / Unknown 05/06/2021 7:26 AM EST 05/06/2021 7:30 AM EST Dory Slade MD LAB POINT OF CARE TEST DOCKED DEVICE UNSOLICITED RESULTS Final Result Performing Organization Address [facility] de Phone Number [facility] [address] [place] [address] * (ABNORMAL) POCT glucose meter (05/05/2021 7:26 [...] 05/05/2021 7:30 PM EST [facility] [employer] Developer ID Sandra Araujo 021 7:30 PM EST [facility] Device ID [id number] 05/05/2021 7:30 PM EST [facility] Specimen Type POC Capillary 05/05/2021 7:30 PM EST [facility] Blood Capillary blood specimen / Unknown 05/05/2021 7:26 PM EST 05/05/2021 7:30 PM EST us Dory Slade MD LAB POINT OF CARE TEST DOCKED DEVICE UNSOLICITED RESULTS Final Result Performing Organization Address [facility] Co de Phone Number [facility] [address] [place] [address] * (ABNORMAL) POCT glucose meter (05/05/2021 6:22 PM EST) POCT Glucose 145(H) 74 - 99 mg/dL 05/05/2021 6:25 PM EST [facility] Comment:Accuracy of a [...] 05/05/2021 6:25 PM EST [facility] [employer] Developer ID Keeley Womack 05/05/20 6:25 PM EST [facility] Device ID [id number] 05/05/2021 6:25 PM EST [facility] Specimen Type POC Capillary 05/05/2021 6:25 PM EST [facility] Blood Capillary blood specimen / Unknown 05/05/2021 6:22 PM EST 05/05/2021 6:25 PM EST us Dory Slade MD LAB POINT OF CARE TEST DOCKED DEVICE UNSOLICITED RESULTS Final Result Performing Organization Address City/[facility] Co de Phone Number [facility] [address] [place] [address] * (ABNORMAL) POCT glucose meter (05/05/2021 4:52 PM EST) [facility] POCT Glucose 71(L) 74 - 99 mg/dL 05/05/2021 4:55 PM EST [facility] Comment:Accuracy of a [...] for testing. Comment 05/05/2021 4:55 PM EST [facility] [employer] Developer ID Keeley Womack 05/05/20 4:55 PM EST [facility] Device ID [id number] 05/05/2021 4:55 PM EST [facility] Specimen Type POC Capillary 05/05/2021 4:55 PM EST [facility] Blood Capillary blood specimen / Unknown 05/05/2021 4:52 PM EST 05/05/2021 4:55 PM EST Dory Slade MD LAB POINT OF CARE TEST DOCKED DEVICE UNSOLICITED RESULTS Final Result [facility] [address] [place] [address] * (ABNORMAL) POCT glucose meter (05/05/2021 11:20 AM EST) [facility] POCT Glucose 134(H) 74 - 99 mg/dL 05/05/2021 11:25 AM EST [facility] Comment:Accuracy of a glucos e result [...] for testing. Comment 05/05/2021 11:25 AM EST [facility] [employer] Developer ID Keeley Womack 05/05/20 11:25 AM EST [facility] Device ID [id number] 05/05/2021 11:25 AM EST [facility] Specimen Type POC Capillary 05/05/2021 11:25 AM EST [facility] Blood Capillary blood specimen / Unknown 05/05/2021 11:20 AM EST 05/05/2021 11:25 AM EST us Dory Slade MD LAB POINT OF CARE TEST DOCKED DEVICE UNSOLICITED RESULTS Final Result Performing Organization Address City/[facility] Co de Phone Number [facility] [address] [place] [address] * (ABNORMAL) POCT glucose meter (05/05/2021 7:38 [...] for testing. Comment 05/05/2021 7:40 AM EST [facility] [employer] Developer ID Keeley Womack 05/05/20 7:40 AM EST [facility] Device ID [id number] 05/05/2021 7:40 AM EST [facility] Specimen Type POC Capillary 05/05/2021 7:40 AM EST [facility] Blood Capillary blood specimen / Unknown 05/05/2021 7:38 AM EST 05/05/2021 7:40 AM EST us Dory Slade MD LAB POINT OF CARE TEST DOCKED DEVICE UNSOLICITED RESULTS Final Result Performing Organization Address City/[facility]/ZIP Co de Phone Number [facility] [address] [place] [address] * (ABNORMAL) POCT glucose meter (05/04/2021 10:04 [...] for testing. Comment 05/04/2021 10:10 PM EST [facility] [employer] Developer ID Xenia Hummel 05/04/2021 10:10 PM EST [facility] Device ID [id number] 05/04/2021 10:10 PM EST [facility] Specimen Type POC Capillary 05/04/2021 10:10 PM EST [facility] Blood Capillary blood specimen / Unknown 05/04/2021 10:04 PM EST 05/04/2021 10:10 PM EST Dory Slade MD LAB POINT OF CARE TEST DOCKED DEVICE UNSOLICITED RESULTS Final Result Performing Organization Address City/[facility] Co de Phone Number [facility] [address] [place] [address] * Urinalysis Microscopic Examination (05/04/2021 4:52 PM EST) Urine Urine specimen obtained by clean catch procedure / Unknown Non-blood Collection / Unknown 05/04/2021 4:52 PM EST 05/04/2021 5:02 PM EST Gabby Pratt [employer]TER [employer], DNP LAB URINE ORDERABLES Fi nal Result Performing Organization Address City/[facility] Co de Phone Number [facility] [address] [place] [address] * (ABNORMAL) Urinalysis with reflex microscopic (05/04/2021 4:52 PM EST) Color, Urine Yellow LAB URINALYSIS - AUTOMATED METHOD 05/04/2021 5:11 PM EST [facility] Clarity, Urine Clear LAB URINALYSIS - AUTOMATED METHOD 05/04/2021 5:11 PM EST [facility] Spec [place], Urine 1.019 <=1.005 to >=1.030 LAB URINALYSIS - AUTOMATED METHOD 05/04/2021 5:11 PM EST [facility] pH, Urine 6.5 4.5 to 8 LAB URINALYSIS - AUTOMATED METHOD 05/04/2021 5:11 PM EST [facility] Protein, Urine Negative Negative mg/dL LAB URINALYSIS - AUTOMATED METHOD 05/04/2021 5:11 PM EST [facility] Glucose, Urine Negative Negative mg/dL LAB URINALYSIS - AUTOMATED METHOD 05/04/2021 5:11 PM EST [facility] Ketones, Urine Negative Negative mg/dL LAB URINALYSIS - AUTOMATED METHOD 05/04/2021 5:11 PM EST [facility] Blood, Urine Negative Negative LAB URINALYSIS - AUTOMATED METHOD 05/04/2021 5:11 PM EST [facility] Bilirubin, Urine Negative Negative LAB URINALYSIS - AUTOMATED METHOD 05/04/2021 5:11 PM EST [facility] Urobilinogen, Urine 1.0 0.2 to 1.0 mg/dL LAB URINALYSIS - AUTOMATED METHOD 05/04/2021 5:11 PM EST [facility] Leukocytes, Urine Trace(A) Negative LAB URINALYSIS - AUTOMATED METHOD 05/04/2021 5:11 PM EST [facility] Nitrite, Urine Negative Negative LAB URINALYSIS - AUTOMATED METHOD 05/04/2021 5:11 PM EST [facility] RBC, Urine 2 0 to 3 /HPF LAB URINALYSIS - AUTOMATED METHOD 05/04/2021 5:11 PM EST [facility] Comment:This result was prev iously suppressed from the chart. WBC, Urine 0 - 5 0 to 5 /HPF LAB URINALYSIS - AUTOMATED METHOD 05/04/2021 5:11 PM EST [facility] Comment:This result was prev iously suppressed from the chart. Squamous Epithelial Cells 0 - 5 0 to 5 /HPF LAB URINALYSIS - AUTOMATED METHOD 05/04/2021 5:11 PM EST [facility] Comment:This result was prev iously suppressed from the chart. Hyaline Casts 0 - 8 0 to 8 /LPF LAB URINALYSIS - AUTOMATED METHOD 05/04/2021 5:11 PM EST [facility] Comment:This result was prev iously suppressed from the chart. Bacteria, Urine Negative Negative LAB URINALYSIS - AUTOMATED METHOD 05/04/2021 5:11 PM EST [facility] Comment:This result was prev iously suppressed from the chart. Urine Urine specimen obtained by clean catch procedure / Unknown Non-blood Collection / Unknown 05/04/2021 4:52 PM EST 05/04/2021 5:02 PM EST us Gabby Pratt [employer], DNP LAB URINE ORDERABLES Fi nal Result Performing Organization Address [facility] Co de Phone Number [facility] [address] [place] [address] * (ABNORMAL) POCT glucose meter (05/04/2021 4:42 PM EST) POCT Glucose 113(H) 74 - 99 mg/dL 05/04/2021 4:45 PM EST [facility] Comment:Accuracy of a glucos e [...] for testing. Comment 05/04/2021 4:45 PM EST [facility] [employer] Developer ID Tereza Feng 05/04/2021 4:45 PM EST [facility] Device ID [id number] 05/04/2021 4:45 PM EST [facility] Specimen Type POC Capillary 05/04/2021 4:45 PM EST [facility] Blood Capillary blood specimen / Unknown 05/04/2021 4:42 PM EST 05/04/2021 4:45 PM EST Dory Slade MD LAB POINT OF CARE TEST DOCKED DEVICE UNSOLICITED RESULTS Final Result Performing Organization Address [facility] Phone Number [facility] [address] [place] [address] * (ABNORMAL) POCT glucose meter (05/04/2021 11:44 AM EST) POCT Glucose 102(H) 74 - 99 mg/dL 05/04/2021 11:50 AM EST [facility] Comment:Accuracy of a [...] 05/04/2021 11:50 AM EST [facility] [employer] Developer ID Keeley Womack 05/04/20 11:50 AM EST [facility] Device ID [id number] 05/04/2021 11:50 AM EST [facility] Specimen Type POC Capillary 05/04/2021 11:50 AM EST [facility] Blood Capillary blood specimen / Unknown 05/04/2021 11:44 AM EST 05/04/2021 11:50 AM EST Dory Slade MD LAB POINT OF CARE TEST DOCKED DEVICE UNSOLICITED RESULTS Final Result Performing Organization Address City/[facility] Co de Phone Number [facility] [address] [place] [address] * (ABNORMAL) POCT glucose meter (05/04/2021 7:25 AM EST) POCT Glucose 119(H) 74 - 99 mg/dL 05/04/2021 7:30 AM EST [facility] Comment:Accuracy of a glucos e result [...] Comment 05/04/2021 7:30 AM EST [facility] [employer] Developer ID Keeley Womack 05/04/20 7:30 AM EST [facility] Device ID [id number] 05/04/2021 7:30 AM EST [facility] Specimen Type POC Capillary 05/04/2021 7:30 AM EST [facility] Blood Capillary blood specimen / Unknown 05/04/2021 7:25 AM EST 05/04/2021 7:30 AM EST us Dory Slade MD LAB POINT OF CARE TEST DOCKED DEVICE UNSOLICITED RESULTS Final Result Performing Organization Address City/[facility] Co de Phone Number [facility] [address] [place] [address] * Aspartate Aminotransferase, Plasma (05/04/2021 5:50 AM EST) AST, Plasma 21 11 - 32 U/L 05/04/2021 6:35 AM EST [facility] Blood Venous blood specimen / Unknown Venipuncture / Unknown 05/04/2021 5:50 AM EST 05/04/2021 6:01 AM EST us Gabby Pratt APRN, DNP LAB BLOOD ORDERABLES Fi nal Result Performing Organization Address [facility] de Phone Number [facility] [address] [place] [address] * (ABNORMAL) Alanine Aminotransferase, Plasma (05/04/2021 5:50 AM EST) Pathologist [facility] ALT, Plasma 57(H) 8 - 33 U/L 05/04/2021 6:35 AM EST [facility] Blood Venous blood specimen / Unknown Venipuncture / Unknown 05/04/2021 5:50 AM EST 05/04/2021 6:01 AM EST us Gabby Pratt APRN, [facility] LAB BLOOD ORDERABLES Fi nal Result Performing Organization Address [facility] Phone Number [facility] [address] [place] [address] * POCT glucose meter (05/03/2021 8:17 PM EST) [facility] POCT Glucose 92 74 - 99 mg/dL 05/03/2021 8:20 PM EST [facility] Comment:Accuracy of a glucos e result [...] 05/03/2021 8:20 PM EST [facility] [employer] Developer ID Irene Cantor 05/03/2021 8:20 PM EST [facility] Device ID [id number] 05/03/2021 8:20 PM EST [facility] Specimen Type POC Capillary 05/03/2021 8:20 PM EST [facility] Blood Capillary blood specimen / Unknown 05/03/2021 8:17 PM EST 05/03/2021 8:20 PM EST Dory Slade MD LAB POINT OF CARE TEST DOCKED DEVICE UNSOLICITED RESULTS Final Result Performing Organization Address [facility] de Phone Number [facility] [address] [place] [address] * (ABNORMAL) POCT glucose meter (05/03/2021 5:35 PM EST) POCT Glucose 170(H) 74 - 99 mg/dL 05/03/2021 5:40 PM EST [facility] Comment:Accuracy of a [...] for testing. Comment 05/03/2021 5:40 PM EST [facility] [employer] Developer ID Dahlia Velasco 05/03/2021 5:40 PM EST [facility] Device ID [id number] 05/03/2021 5:40 PM EST [facility] Specimen Type POC Capillary 05/03/2021 5:40 PM EST [facility] Blood Capillary blood specimen / Unknown 05/03/2021 5:35 PM EST 05/03/2021 5:40 PM EST Dory Slade MD LAB POINT OF CARE TEST DOCKED DEVICE UNSOLICITED RESULTS Final Result Performing Organization Address [facility] de Phone Number [facility] [address] [place] [address] * POCT glucose meter (05/03/2021 12:14 PM [...] Comment 05/03/2021 12:15 PM EST [facility] [employer] Developer ID Keeley Womack 05/03/20 12:15 PM EST [facility] Device ID [id number] 05/03/2021 12:15 PM EST [facility] Specimen Type POC Capillary 05/03/2021 12:15 PM EST [facility] Blood Capillary blood specimen / Unknown 05/03/2021 12:14 PM EST 05/03/2021 12:15 PM EST us Dory Slade MD LAB POINT OF CARE TEST DOCKED DEVICE UNSOLICITED RESULTS Final Result Performing Organization Address City/[facility]/ZIP Co de Phone Number [facility] [address] [place] [address] * POCT glucose meter (05/03/2021 8:08 AM EST) POCT Glucose 87 74 - 99 mg/dL [...] Comment 05/03/2021 8:10 AM EST [facility] [employer] Developer ID Keeley Womack 05/03/20 8:10 AM EST [facility] Device ID [id number] 05/03/2021 8:10 AM EST [facility] Specimen Type POC Capillary 05/03/2021 8:10 AM EST [facility] Blood Capillary blood specimen / Unknown 05/03/2021 8:08 AM EST 05/03/2021 8:10 AM EST us Dory Slade MD LAB POINT OF CARE TEST DOCKED DEVICE UNSOLICITED RESULTS Final Result [facility] [address] [place] [address] * POCT glucose meter (05/03/2021 6:07 AM [...] for testing. Comment 05/03/2021 6:10 AM EST [facility] [employer] Developer ID Shaquille Mak 05/03/2021 6:10 AM EST [facility] Device ID [id number] 05/03/2021 6:10 AM EST [facility] Specimen Type POC Capillary 05/03/2021 6:10 AM EST [facility] Blood Capillary blood specimen / Unknown 05/03/2021 6:07 AM EST 05/03/2021 6:10 AM EST Doyr Slade MD LAB POINT OF CARE TEST DOCKED DEVICE UNSOLICITED RESULTS Final Result Performing Organization Address City/State/[facility] Co de Phone Number [facility] [address] [place] [address] * (ABNORMAL) POCT glucose meter (05/02/2021 9:15 PM EST) POCT Glucose 102(H) 74 - 99 mg/dL 05/02/2021 9:20 PM EST [facility] Comment:Accuracy of a [...] 05/02/2021 9:20 PM EST [facility] [employer] Developer ID Shana Bean 05/02/2021 9:20 PM EST [facility] Device ID [id number] 05/02/2021 9:20 PM EST [facility] Specimen Type POC Capillary 05/02/2021 9:20 PM EST [facility] Blood Capillary blood specimen / Unknown 05/02/2021 9:15 PM EST 05/02/2021 9:20 PM EST Dory Slade MD LAB POINT OF CARE TEST DOCKED DEVICE UNSOLICITED RESULTS Final Result Performing Organization Address City/[facility] de Phone Number [facility] [address] [place] [address] * (ABNORMAL) POCT glucose meter (05/02/2021 3:20 [...] for testing. Comment 05/02/2021 3:25 PM EST [facility] [employer] Developer ID Betty Coronado 05/02/2021 3:25 PM EST [facility] Device ID [id number] 05/02/2021 3:25 PM EST [facility] Specimen Type POC Capillary 05/02/2021 3:25 PM EST [facility] Blood Capillary blood specimen / Unknown 05/02/2021 3:20 PM EST 05/02/2021 3:25 PM EST Dory Slade MD LAB POINT OF CARE TEST DOCKED DEVICE UNSOLICITED RESULTS Final Result Performing Organization Address City/[facility] Co de Phone Number [facility] [address] [place] [address] * (ABNORMAL) POCT glucose meter (05/02/2021 11:26 [...] Comment 05/02/2021 11:45 AM EST [facility] [employer] Developer ID Betty Coronado 05/02/2021 11:45 AM EST [facility] Device ID [id number] 05/02/2021 11:45 AM EST [facility] Specimen Type POC Capillary 05/02/2021 11:45 AM EST [facility] Blood Capillary blood specimen / Unknown 05/02/2021 11:26 AM EST 05/02/2021 11:45 AM EST us Dory Slade MD LAB POINT OF CARE TEST DOCKED DEVICE UNSOLICITED RESULTS Final Result Performing Organization Address City/[facility]/ZIP Co de Phone Number [facility] [address] [place] [address] * (ABNORMAL) POCT glucose meter (05/02/2021 8:08 AM EST) [facility] POCT Glucose 118(H) 74 - 99 mg/dL 05/02/2021 8:15 AM EST [facility] Comment:Accuracy of a glucos e [...] Comment 05/02/2021 8:15 AM EST [facility] [employer] Developer ID Betty Coronado 05/02/2021 8:15 AM EST [facility] Device ID [id number] 05/02/2021 8:15 AM EST [facility] Specimen Type POC Capillary 05/02/2021 8:15 AM EST [facility] Blood Capillary blood specimen / Unknown 05/02/2021 8:08 AM EST 05/02/2021 8:15 AM EST us Ji Atkins MD LAB POINT OF CARE TE ST DOCKED DEVICE UNSOLICITED RESULTS Final Result Performing Organization Address City/[facility]/ZIP Co de Phone Number [facility] [address] [place] [address] * (ABNORMAL) Alanine Aminotransferase, Plasma (05/02/2021 3:59 AM EST) ALT, Plasma 152(H) 8 - 33 U/L 05/02/2021 12:38 PM EST [facility] Blood Venous blood specimen / Unknown Venipuncture / Unknown 05/02/2021 3:59 AM EST 05/02/2021 4:21 AM EST us Gabby Pratt APRN, DNP LAB BLOOD ORDERABLES Fi nal Result Performing Organization Address [facility] de Phone Number [facility] [address] [place] [address] * (ABNORMAL) Aspartate Aminotransferase, Plasma (05/02/2021 3:59 AM EST) AST, Plasma 117(H) 11 - 32 U/L 05/02/2021 12:38 PM EST [facility] Blood Venous blood specimen / Unknown Venipuncture / Unknown 05/02/2021 3:59 AM EST 05/02/2021 4:21 AM EST us Gabby Pratt APRN, DNP LAB BLOOD ORDERABLES Fi nal Result Performing Organization Address [facility] Phone Number [facility] [address] [place] [address] * (ABNORMAL) Basic metabolic panel (05/02/2021 3:59 AM EST) Glucose, Plasma 130(H) 74 - 99 mg/dL 05/02/2021 4:50 AM EST [facility] BUN, Plasma 13 7 - 21 mg/dL 05/02/2021 4:50 AM EST [facility] Creatinine, Plasma 0.81 0.60 - 1.10 mg/dL 05/02/2021 4:50 AM EST [facility] BUN/Creatinine Ratio 16 05/02/2021 4:50 AM EST [facility] Sodium, Plasma 139 136 - 145 mmol/L 05/02/2021 4:50 AM EST [facility] Potassium, Plasma 4.3 3.7 - 4.8 mmol/L 05/02/2021 4:50 AM EST [facility] Chloride, Plasma 103 97 - 107 mmol/L 05/02/2021 4:50 AM EST [facility] CO2, Plasma 27 22 - 29 mmol/L 05/02/2021 4:50 AM EST [facility] Anion Gap 9 6 - 16 mmol/L 05/02/2021 4:50 AM EST [facility] Total Calcium, Plasma 8.7(L) 8.9 - 10.2 mg/dL 05/02/2021 4:50 AM EST [facility] eGFR >60 >60 mL/min/1.7 3m*2 05/02/2021 4:50 AM EST [facility] Comment:eGFR = estimated GFR ; [...] >60 mL/min/1.7 3m*2 05/02/2021 4:50 AM EST [facility] Comment:eGFR = estimated GFR ; [...] RN LAB BLOOD ORDERABLES Final Resul t [facility] [address] [place] [address] * (ABNORMAL) CBC W/O Differential (05/02/2021 3:59 AM EST) WBC Count 9.98 3.70 - 10.30 10*3/uL LAB HEMATOLOGY METHOD 05/02/2021 4:48 AM EST [facility] RBC Count 3.26(L) 3.90 - 5.20 10*6/uL LAB HEMATOLOGY METHOD 05/02/2021 4:48 AM EST [facility] HGB 10.1(L) 11.2 - 15.7 g/dL LAB HEMATOLOGY METHOD 05/02/2021 4:48 AM EST [facility] HCT 31.5(L) 34.0 - 45.0 % LAB HEMATOLOGY METHOD 05/02/2021 4:48 AM EST [facility] Platelet Count 243 155 - 369 10*3/uL LAB HEMATOLOGY METHOD 05/02/2021 4:48 AM EST [facility] MCV 97 79 - 98 fL LAB HEMATOLOGY METHOD 05/02/2021 4:48 AM EST [facility] MCH 31.0 26.0 - 32.0 pg LAB HEMATOLOGY METHOD 05/02/2021 4:48 AM EST [facility] MCHC 32.1 30.7 - 35.5 g/dL LAB HEMATOLOGY METHOD 05/02/2021 4:48 AM EST [facility] RDW 13.5 11.5 - 14.5 % LAB HEMATOLOGY METHOD 05/02/2021 4:48 AM EST [facility] MPV 11.1 8.8 - 12.5 fL LAB HEMATOLOGY METHOD 05/02/2021 4:48 AM EST [facility] nRBC 0.0 <=0.0 per 100 WBCs LAB HEMATOLOGY METHOD 05/02/2021 4:48 AM [facility] Blood Venous blood specimen / Unknown Venipuncture / Unknown 05/02/2021 3:59 AM EST 05/02/2021 4:25 AM EST us Ava Joseph RN LAB BLOOD ORDERABLES Final Resul t Performing Organization Address City/State/[facility] Co de Phone Number [facility] [address] [place] [address] * (ABNORMAL) POCT glucose meter (05/01/2021 9:11 PM EST) POCT Glucose 141(H) 74 - 99 mg/dL 05/01/2021 9:15 PM EST [facility] Comment:Accuracy of a glucos e [...] Comment 05/01/2021 9:15 PM EST [facility] [employer] Bpm Developer ID Kyra Lockwood 05/01/2021 9:15 PM EST [facility] Device ID [id number] 05/01/2021 9:15 PM EST [facility] Specimen Type POC Capillary 05/01/2021 9:15 PM EST [facility] Blood Capillary blood specimen / Unknown 05/01/2021 9:11 PM EST 05/01/2021 9:15 PM EST us Ji Atkins MD LAB POINT OF CARE TE ST DOCKED DEVICE UNSOLICITED RESULTS Final Result Performing Organization Address City/State/[facility] Co de Phone Number [facility] [address] [place] [address] * XR Femur Left 2+ Views (05/01/2021 [...] FEMUR LEFT 2+ VIEWS ordered by JI ATKINS [id number] CLINICAL INDICATION: post op TECHNIQUE: XR FEMUR [...] FEMUR LEFT 2+ VIEWS ordered by JI [id number] CLINICAL INDICATION: post op TECHNIQUE: XR FEMUR [...] by Tad Hou on 05/01/2021 11:26 PM Ji Atkins MD IMG XR PROCEDURES Final Resul t * (ABNORMAL) POCT glucose meter (05/01/2021 3:53 PM EST) POCT Glucose 120(H) 74 - 99 mg/dL 05/01/2021 3:55 PM EST [facility] Comment:Accuracy of [...] for testing. Comment 05/01/2021 3:55 PM EST [facility] Oracle Bpm Developer ID Tresa Jones 021 3:55 PM EST [facility] Device ID [id number] 05/01/2021 3:55 PM EST [facility] Specimen Type POC Capillary 05/01/2021 3:55 PM EST [facility] Blood Capillary blood specimen / Unknown 05/01/2021 3:53 PM EST 05/01/2021 3:55 PM EST iJ Atkins MD LAB POINT OF CARE TE ST DOCKED DEVICE UNSOLICITED RESULTS Final Result Performing Organization Address City/[facility] Co de Phone Number [facility] [address] [place] [address] * [place] Less than 1 Hour Intraoperative (05/01/2021 3:26 PM EST) Narrative IMAGING - 05/01/2021 3:26 PM EST Images were obtained for surgical purposes. ??See Bebeto Flynn's surgical note in the the patient's chart for the findings. Bebeto Flynn MD IMG FLUOROSCOPY PROCEDURES [facility] l Result IMAGING * Hemoglobin A1c (05/01/2021 2:21 AM EST) Hemoglobin A1c 5.5 <5.7 % 05/01/2021 12:36 PM EST [facility] Blood Venous blood specimen / Unknown Venipuncture / Unknown 05/01/2021 2:21 AM EST 05/01/2021 2:26 AM EST Narrative [facility] - 05/01/2021 12:36 PM EST HA1C Interpretive Data: Diagnosis of Diabetes: Diabetic > or = 6.5% Pre-diabetic 5.7 to 6.4% Non-diabetic < or = 5.6% Glycemic Targets for Type I and Type II Diabetics: Non- Adults <7.0% Adults <6.0% Children and Adolescents <7.5% Source: ??[place] [employer]. Standards of medical care in diabetes,2017. Diabetes Care.2017:40 (suppl 1):S1-S135. HbA1c assay performed by an ion-exchange chromatography method that is certified traceable to the DCCT. Ji Atkins MD LAB BLOOD ORDERABLES Final Re sult [facility] [address] [place] [address] * Protime-INR (05/01/2021 2:21 AM EST) Prothrombin Time 13.0 12.0 - 14.3 sec LAB COAGULATION METHOD 05/01/2021 2:59 AM EST [facility] INR 1.0 0.9 - 1.1 LAB COAGULATION METHOD 05/01/2021 2:59 AM EST [facility] Blood Venous blood specimen / Unknown Venipuncture / Unknown 05/01/2021 2:21 AM EST 05/01/2021 2:26 AM EST Narrative [facility] - 05/01/2021 2:59 AM EST OPTIMAL INR RANGES FOR PATIENT ON ORAL ANTICOAGULANT THERAPY Prevention of venous thromboembolism ?INR 2.0 to 3.0 In patients with heart disease: Atrial fibrillation ?INR 2.0 to 3.0 Valvular heart disease ? INR 2.0 to 3.0 Tissue heart valves ?INR 2.0 to 3.0 Mechanical prosthetic valves ? INR 2.5 to 3.5 Prevention of recurrent MD ? INR 2.5 to 3.5 Ji Atkins MD LAB BLOOD ORDERABLES Final Re sult Performing Organization Address [facility] de Phone Number [facility] [address] [place] [address] * Phosphorus (05/01/2021 2:21 AM EST) Phosphorus, Plasma 3.8 2.5 - 4.5 mg/dL 05/01/2021 2:56 AM EST [facility] Blood Venous blood specimen / Unknown Venipuncture / Unknown 05/01/2021 2:21 AM EST 05/01/2021 2:27 AM EST Ji Atkins MD LAB BLOOD ORDERABLES Final Re sult Performing Organization Address [facility] de Phone Number [facility] [address] [place] [address] * (ABNORMAL) Magnesium (05/01/2021 2:21 AM EST) Magnesium, Plasma 1.8(L) 1.9 - 2.4 mg/dL 05/01/2021 2:56 AM EST [facility] Blood Venous blood specimen / Unknown Venipuncture / Unknown 05/01/2021 2:21 AM EST 05/01/2021 2:27 AM EST Ji Atkins MD LAB BLOOD ORDERABLES Final Re sult Performing Organization Address [facility] de Phone Number [facility] [address] [place] [address] * (ABNORMAL) CBC (05/01/2021 2:21 AM EST) WBC Count 10.61(H) 3.70 - 10.30 10*3/uL LAB HEMATOLOGY METHOD 05/01/2021 2:34 AM EST [facility] RBC Count 4.03 3.90 - 5.20 10*6/uL LAB HEMATOLOGY METHOD 05/01/2021 2:34 AM EST [facility] HGB 12.1 11.2 - 15.7 g/dL LAB HEMATOLOGY METHOD 05/01/2021 2:34 AM EST [facility] HCT 37.9 34.0 - 45.0 % LAB HEMATOLOGY METHOD 05/01/2021 2:34 AM EST [facility] Platelet Count 289 155 - 369 10*3/uL LAB HEMATOLOGY METHOD 05/01/2021 2:34 AM EST [facility] MCV 94 79 - 98 fL LAB HEMATOLOGY METHOD 05/01/2021 2:34 AM EST [facility] MCH 30.0 26.0 - 32.0 pg LAB HEMATOLOGY METHOD 05/01/2021 2:34 AM EST [facility] MCHC 31.9 30.7 - 35.5 g/dL LAB HEMATOLOGY METHOD 05/01/2021 2:34 AM EST [facility] RDW 13.6 11.5 - 14.5 % LAB HEMATOLOGY METHOD 05/01/2021 2:34 AM EST [facility] MPV 10.3 8.8 - 12.5 fL LAB HEMATOLOGY METHOD 05/01/2021 2:34 AM EST [facility] nRBC 0.0 <=0.0 per 100 WBCs LAB HEMATOLOGY METHOD 05/01/2021 2:34 AM EST [facility] Blood Venous blood specimen / Unknown Venipuncture / Unknown 05/01/2021 2:21 AM EST 05/01/2021 2:26 AM EST us Ji Atkins MD LAB BLOOD ORDERABLES Final Re sult [facility] [address] [place] [address] * (ABNORMAL) Basic Metabolic Panel (05/01/2021 2:21 AM EST) Glucose, Plasma 137(H) 74 - 99 mg/dL 05/01/2021 2:56 AM EST [facility] BUN, Plasma 20 7 - 21 mg/dL 05/01/2021 2:56 AM EST [facility] Creatinine, Plasma 0.85 0.60 - 1.10 mg/dL 05/01/2021 2:56 AM EST [facility] BUN/Creatinine Ratio 24 05/01/2021 2:56 AM EST [facility] Sodium, Plasma 140 136 - 145 mmol/L 05/01/2021 2:56 AM EST [facility] Potassium, Plasma 4.3 3.7 - 4.8 mmol/L 05/01/2021 2:56 AM EST [facility] Chloride, Plasma 105 97 - 107 mmol/L 05/01/2021 2:56 AM EST [facility] CO2, Plasma 23 22 - 29 mmol/L 05/01/2021 2:56 AM EST [facility] Anion Gap 12 6 - 16 mmol/L 05/01/2021 2:56 AM EST [facility] Total Calcium, Plasma 8.7(L) 8.9 - 10.2 mg/dL 05/01/2021 2:56 AM EST [facility] eGFR >60 >60 mL/min/1.7 3m*2 05/01/2021 2:56 AM EST [facility] Comment:eGFR = estimated GFR ; [...] >60 mL/min/1.7 3m*2 05/01/2021 2:56 AM EST [facility] Comment:eGFR = estimated GFR ; [...] EST 05/01/2021 2:27 AM EST us Ji Atkins MD LAB BLOOD ORDERABLES Final Re sult [facility] [address] [place] [address] * (ABNORMAL) POCT glucose meter (04/30/2021 11:44 PM EST) POCT Glucose 143(H) 74 - 99 mg/dL 04/30/2021 11:50 PM EST [facility] Comment:Accuracy of [...] Comment 04/30/2021 11:50 PM EST [facility] Oracle Bpm Developer ID Cassie Ford 04/30/2021 11:50 PM EST [facility] Device ID [id number] 04/30/2021 11:50 PM EST [facility] Specimen Type POC Capillary 04/30/2021 11:50 PM EST [facility] Blood Capillary blood specimen / Unknown 04/30/2021 11:44 PM EST 04/30/2021 11:50 PM EST Ji Atkins MD LAB POINT OF CARE TE ST DOCKED DEVICE UNSOLICITED RESULTS Final Result [facility] [address] [place] [address] * Lactate, venous (04/30/2021 8:26 PM EST) Pathologist [facility] Lactate, Venous, Whole Blood 0.9 0.5 - 2.2 mmol/L LAB HEMATOLOGY METHOD 04/30/2021 8:32 PM EST [facility] Blood Venous blood specimen / Unknown Venipuncture / Unknown 04/30/2021 8:26 PM EST 04/30/2021 8:30 PM EST Clay Lugo MD LAB BLOOD ORDERABLES Final Resul t [facility] [address] [place] [address] * CT Head wo IV Contrast (04/30/2021 [...] error, please notify the sender immediately at [phone] and permanently delete the original report and destroy any copies or printouts. Narrative 04/30/2021 5:12 PM EST [facility] ? - Phone [facility] NAME: Ambika Moscoso ?? DATE OF EXAM: 04/30/2021 Patient No: ??[id number] Physician: ??Carlo^Ji Date of : ??1965 Past [...] Soft Tissues: Mild left parietal scalp contusion. ??[place] lens replacements. Skull: There are no calvarial destructive lesions or fractures. Sinuses and Mastoids: No significant paranasal sinus disease. ??Minimal mucosal thickening in the left sphenoid sinus. ??The mastoid air cells are clear. Procedure Note Wes Biswas MD - 04/30/2021 [facility] - Phone [facility] NAME: Ambika Moscoso DATE OF EXAM: 04/30/2021 Patient No: [id number] Physician: Palmer Date of : 1965 Past [...] Soft Tissues: Mild left parietal scalp contusion. [place] lensreplacements. Skull: There are no calvarial destructive lesions or fractures. Sinuses and Mastoids: No significant paranasal sinus disease. Minimalmucosal thickening in the left sphenoid sinus. The mastoid air cells areclear. IMPRESSION: No evidence of acute intrarenal abnormality. Mild left parietal scalp contusion without underlying calvarialfracture. Report sent at 5:11 PM ET. Christopher True, M.D. This report has been electronically signed [...] in error, pleasenotify the sender immediately at [phone] and permanently delete theoriginal report and destroy any copies or printouts. us Ji Atkins MD IMG CT PROCEDURES Final Resul t [...] LEFT WO IV CONTRAST ordered by CLAY LUGO, [id number] CLINICAL INDICATION: Fracture, knee TECHNIQUE: ?? Multiple [...] LEFT WO IV CONTRAST ordered by CLAY LUGO,[id number] CLINICAL INDICATION: Fracture, knee TECHNIQUE: Multiple axial [...] Tad Hou on 04/30/2021 11:46 PM Clay Lugo MD IM CT PROCEDURES Final Result * [...] Comment 04/30/2021 4:20 PM EST [facility] [employer] Bpm Developer ID Enoch Baptiste 04/30/2021 4:20 PM EST [facility] Device ID [id number] 04/30/2021 4:20 PM EST [facility] Specimen Type POC Capillary 04/30/2021 4:20 PM EST [facility] Blood Capillary blood specimen / Unknown 04/30/2021 4:15 PM EST 04/30/2021 4:20 PM EST Ji Atkins MD LAB POINT OF CARE TE ST DOCKED DEVICE UNSOLICITED RESULTS Final Result Performing Organization Address City/[facility]/ZIP Co de Phone Number [facility] [address] [place] [address] * (ABNORMAL) Lactate, venous (04/30/2021 3:36 PM EST) Pathologist [facility] Lactate, Venous, Whole Blood 2.7(H) 0.5 - 2.2 mmol/L LAB HEMATOLOGY METHOD 04/30/2021 3:42 PM EST [facility] Blood Venous blood specimen / Unknown Venipuncture / Unknown 04/30/2021 3:36 PM EST 04/30/2021 3:41 PM EST us Clay Lugo MD LAB BLOOD ORDERABLES Final Resul t Performing Organization Address City/[facility]/ZIP Co de Phone Number [facility] [address] [place] [address] * XR Pelvis 1 or 2 Views (04/30/2021 3:29 PM EST) Anatomical Region Laterality Modality Body, Pelvis Digital Radiogra phy Impressions 04/30/2021 3:39 PM EST No acute osseous findings CRITICAL RESULT: ?? No. COMMUNICATION: Per this written report. Signed by Rosanna Deng on ??04/30/2021 3:39 PM Narrative 04/30/2021 3:39 PM EST Exam/Procedure: XR PELVIS 1 OR 2 VIEWS ordered by CLAY LUGO, [id number] CLINICAL INDICATION: femur fracture, needs AP pelvis TECHNIQUE: XR PELVIS 1 OR 2 VIEWS COMPARISON: None. FINDINGS: No acute fracture or malalignment. Procedure Note Rosanna Deng MD - 04/30/2021 Exam/Procedure: XR PELVIS 1 OR 2 VIEWS ordered by CLAY LUGO, [id number] CLINICAL INDICATION: femur fracture, needs AP pelvis TECHNIQUE: XR PELVIS 1 OR 2 VIEWS COMPARISON: None. FINDINGS: No acute fracture or malalignment. IMPRESSION: No acute osseous findings CRITICAL RESULT: No. COMMUNICATION: Per this written report. Signed by Rosanna Deng on 04/30/2021 3:39 PM Clay Lugo MD IMG XR PROCEDURES Final Result * SARS CoV-2/COVID-19 by PCR (04/30/2021 3:23 PM EST) SARS CoV-2/COVID-1 9 RNA PCR Result Not Detected Not Detected 04/30/2021 8:41 PM EST [facility] Swab Nasopharyngeal structure / Unknown Non-blood Collection / Unknown 04/30/2021 3:23 PM EST 04/30/2021 5:48 PM EST Narrative [facility] - 04/30/2021 8:41 PM [...] recommendations. This test was performed using the [employer]ufoo Al[employer] m SARS CoV-2 assay, a PCR-based [...] signs and symptoms consistent with COVID-19. Samson Nguyen MD LAB MICROBIOLOGY - GENERAL ORD ERABLES Final Result [facility] [address] [place] [address] * XR Chest 1 View (04/30/2021 2:59 PM EST) Anatomical Region Laterality Modality Chest Digital Radiogra phy Impressions 04/30/2021 3:01 PM EST No acute findings CRITICAL RESULT: ?? No. COMMUNICATION: Per this written report. Signed by Rosanna Deng on ??04/30/2021 3:01 PM Narrative 04/30/2021 3:01 PM EST Exam/Procedure: XR CHEST 1 VIEW ordered by SAMSON NGUYEN, [id number] CLINICAL INDICATION: preop TECHNIQUE: XR CHEST 1 VIEW COMPARISON: None. FINDINGS: Lungs are clear without evidence of focal consolidation or parenchymal opacities. No evidence of a pleural effusion or pneumothorax. Cardiac and mediastinal silhouette are within normal limits. No acute osseous abnormalities. Procedure Note Rosanna Deng MD - 04/30/2021 Exam/Procedure: XR CHEST 1 VIEW ordered by SAMSON NGUYEN, [id number] CLINICAL INDICATION: preop TECHNIQUE: XR CHEST 1 VIEW COMPARISON: None. FINDINGS: Lungs are clear without evidence of focal consolidation or parenchymalopacities. No evidence of a pleural effusion or pneumothorax. Cardiac and mediastinal silhouette are within normal limits. No acute osseous abnormalities. IMPRESSION: No acute findings CRITICAL RESULT: No. COMMUNICATION: Per this written report. Signed by Rosanna Deng on 04/30/2021 3:01 PM Samson Nguyen MD IMG XR PROCEDURES Final Result * Type and screen (04/30/2021 2:20 PM EST) ABO/Rh O Negative 04/30/2021 1:57 PM EST [facility] Antibody Screen Negative 04/30/2021 1:57 PM EST [facility] Blood Venous blood specimen / Unknown Venipuncture / Unknown 04/30/2021 2:20 PM EST 04/30/2021 2:31 PM EST us Samson Nguyen MD LAB BLOOD BANK TEST ORDERABLES Final Result BLO[facility] BANK [address] [place] [address], * (ABNORMAL) CBC w/diff (04/30/2021 2:20 PM EST) WBC Count 14.68(H) 3.70 - 10.30 10*3/uL LAB HEMATOLOGY METHOD 04/30/2021 2:31 PM EST [facility] RBC Count 4.33 3.90 - 5.20 10*6/uL LAB HEMATOLOGY METHOD 04/30/2021 2:31 PM EST [facility] HGB 13.5 11.2 - 15.7 g/dL LAB HEMATOLOGY METHOD 04/30/2021 2:31 PM EST [facility] HCT 40.3 34.0 - 45.0 % LAB HEMATOLOGY METHOD 04/30/2021 2:31 PM EST [facility] Platelet Count 326 155 - 369 10*3/uL LAB HEMATOLOGY METHOD 04/30/2021 2:31 PM EST [facility] MCV 93 79 - 98 fL LAB HEMATOLOGY METHOD 04/30/2021 2:31 PM EST [facility] MCH 31.2 26.0 - 32.0 pg LAB HEMATOLOGY METHOD 04/30/2021 2:31 PM EST [facility] MCHC 33.5 30.7 - 35.5 g/dL LAB HEMATOLOGY METHOD 04/30/2021 2:31 PM EST [facility] RDW 13.5 11.5 - 14.5 % LAB HEMATOLOGY METHOD 04/30/2021 2:31 PM EST [facility] MPV 10.7 8.8 - 12.5 fL LAB HEMATOLOGY METHOD 04/30/2021 2:31 PM EST [facility] nRBC 0.0 <=0.0 per 100 WBCs LAB HEMATOLOGY METHOD 04/30/2021 2:31 PM EST [facility] Differential Type Automated LAB HEMATOLOGY METHOD 04/30/2021 2:31 PM EST [facility] Neutrophils % 78.0 % LAB HEMATOLOGY METHOD 04/30/2021 2:31 PM EST [facility] Lymphocytes % 16.0 % LAB HEMATOLOGY METHOD 04/30/2021 2:31 PM EST [facility] Monocytes % 6.0 % LAB HEMATOLOGY METHOD 04/30/2021 2:31 PM EST [facility] Eosinophils % 0.0 % LAB HEMATOLOGY METHOD 04/30/2021 2:31 PM EST [facility] Basophils % 0.0 % LAB HEMATOLOGY METHOD 04/30/2021 2:31 PM EST [facility] Immature Granulocytes % 0.0 % LAB HEMATOLOGY METHOD 04/30/2021 2:31 PM EST [facility] Neutrophils Absolute 11.34(H) 1.60 - 6.10 10*3/uL LAB HEMATOLOGY METHOD 04/30/2021 2:31 PM EST [facility] Lymphocytes Absolute 2.28 1.20 - 3.90 10*3/uL LAB HEMATOLOGY METHOD 04/30/2021 2:31 PM EST [facility] Monocytes Absolute 0.91(H) 0.30 - 0.90 10*3/uL LAB HEMATOLOGY METHOD 04/30/2021 2:31 PM EST [facility] Eosinophils Absolute 0.03 0.00 - 0.50 10*3/uL LAB HEMATOLOGY METHOD 04/30/2021 2:31 PM EST [facility] Basophils Absolute 0.06 0.00 - 0.10 10*3/uL LAB HEMATOLOGY METHOD 04/30/2021 2:31 PM EST [facility] Immature Granulocytes Absolute 0.06 0.00 - 0.06 10*3/uL LAB HEMATOLOGY METHOD 04/30/2021 2:31 PM EST [facility] Blood Venous blood specimen / Unknown Venipuncture / Unknown 04/30/2021 2:20 PM EST 04/30/2021 2:25 PM EST [facility] - 04/30/2021 2:31 PM EST Therapeutic decision making should be based on absolute values, rather than percentages. us Samson Nguyen MD LAB BLOOD ORDERABLES Final Res ult [facility] [address] [place] [address] * (ABNORMAL) CMP (04/30/2021 2:19 PM EST) Glucose, Plasma 142(H) 74 - 99 mg/dL 04/30/2021 2:54 PM EST [facility] BUN, Plasma 23(H) 7 - 21 mg/dL 04/30/2021 2:54 PM EST [facility] Creatinine, Plasma 0.87 0.60 - 1.10 mg/dL 04/30/2021 2:54 PM EST [facility] BUN/Creatinine Ratio 26 04/30/2021 2:54 PM EST [facility] Sodium, Plasma 142 136 - 145 mmol/L 04/30/2021 2:54 PM EST [facility] Potassium, Plasma 4.2 3.7 - 4.8 mmol/L 04/30/2021 2:54 PM EST [facility] Chloride, Plasma 108(H) 97 - 107 mmol/L 04/30/2021 2:54 PM EST [facility] CO2, Plasma 19(L) 22 - 29 mmol/L 04/30/2021 2:54 PM EST [facility] Anion Gap 15 6 - 16 mmol/L 04/30/2021 2:54 PM EST [facility] Total Calcium, Plasma 9.1 8.9 - 10.2 mg/dL 04/30/2021 2:54 PM EST [facility] Total Protein 7.0 6.3 - 7.9 g/dL 04/30/2021 2:54 PM EST [facility] Albumin, Plasma 4.1 3.5 - 5.2 g/dL 04/30/2021 2:54 PM EST [facility] AST, Plasma 162(H) 11 - 32 U/L 04/30/2021 2:54 PM EST [facility] ALT, Plasma 73(H) 8 - 33 U/L 04/30/2021 2:54 PM EST [facility] Alkaline Phosphatase, Plasma 138 46 - 142 U/L 04/30/2021 2:54 PM EST [facility] Total Bilirubin, Plasma 0.6 0.2 - 1.1 mg/dL 04/30/2021 2:54 PM EST [facility] eGFR >60 >60 mL/min/1.7 3m*2 04/30/2021 2:54 PM EST [facility] Comment:eGFR = estimated GFR ; eGFR [...] >60 mL/min/1.7 3m*2 04/30/2021 2:54 PM EST [facility] Comment:eGFR = estimated GFR ; eGFR [...] EST 04/30/2021 2:25 PM EST us Samson Nguyen MD LAB BLOOD ORDERABLES Final Res ult Performing Organization Address City/State/[facility] Co de Phone Number [facility] [address] [place] [address] * PT-INR (04/30/2021 2:19 PM EST) Prothrombin Time 12.4 12.0 - 14.3 sec LAB COAGULATION METHOD 04/30/2021 2:57 PM EST [facility] INR 1.0 0.9 - 1.1 LAB COAGULATION METHOD 04/30/2021 2:57 PM EST [facility] Blood Venous blood specimen / Unknown Venipuncture / Unknown 04/30/2021 2:19 PM EST 04/30/2021 2:25 PM EST Narrative [facility] - 04/30/2021 2:57 PM EST OPTIMAL INR RANGES FOR PATIENT ON ORAL ANTICOAGULANT THERAPY Prevention of venous thromboembolism ?INR 2.0 to 3.0 In patients with heart disease: Atrial fibrillation ?INR 2.0 to 3.0 Valvular heart disease ? INR 2.0 to 3.0 Tissue heart valves ?INR 2.0 to 3.0 Mechanical prosthetic valves ? INR 2.5 to 3.5 Prevention of recurrent MD ? INR 2.5 to 3.5 us Samson Nguyen MD LAB BLOOD ORDERABLES Final Res ult Performing Organization Address [facility] de Phone Number [facility] [address] [place] [address] * EKG now - STAT (adult) (04/30/2021 2:08 PM EST) EKG DIAGNOSIS CLASS Normal MUSE ECG Ventricular Rate 87 BPM MUSE ECG Atrial Rate 87 BPM MUSE ECG FL Interval 120 ms MUSE ECG QRSD Interval 76 ms MUSE ECG QT Interval 374 ms MUSE ECG QTC Interval 450 ms MUSE ECG P [place] 48 degrees MUSE ECG R [place] 40 degrees MUSE ECG T Wave [place] 74 degrees MUSE ECG Diagnosis Poor data quality MUSE ECG Diagnosis Confirmed by Garcia Leonard ([id number]) on 05/01/2021 11:23:11 AM MUSE ECG 04/30/2021 2:08 PM EST 05/01/2021 11:23 AM EST us Samson Nguyen MD ECG ORDERABLES Final Result Performing Organization Address [facility] de Phone Number MUSE ECG * XR [...] FIBULA LEFT 2+ VIEWS ordered by SAMSON NGUYEN [id number] CLINICAL INDICATION: fall, pain TECHNIQUE: XR TIBIA [...] FIBULA LEFT 2+ VIEWS ordered by SAMSON [id number] CLINICAL INDICATION: fall, pain TECHNIQUE: XR TIBIA [...] Antonio Mckinney on 04/30/2021 2:18 PM Samson Nguyen MD IMG XR PROCEDURES Final Result * [...] FIBULA LEFT 2+ VIEWS ordered by SAMSON NGUYEN, [id number] CLINICAL INDICATION: fall, pain TECHNIQUE: XR TIBIA [...] FIBULA LEFT 2+ VIEWS ordered by SAMSON NGUYEN,[id number] CLINICAL INDICATION: fall, pain TECHNIQUE: XR TIBIA [...] Antonio Mckinney on 04/30/2021 2:18 PM Samson Nguyen MD IMG XR PROCEDURES Final Result * [...] FIBULA LEFT 2+ VIEWS ordered by SAMSON NGUYEN, [id number] CLINICAL INDICATION: fall, pain TECHNIQUE: XR TIBIA [...] FIBULA LEFT 2+ VIEWS ordered by SAMSON NGUYEN,[id number] CLINICAL INDICATION: fall, pain TECHNIQUE: XR TIBIA [...] Antonio Mckinney on 04/30/2021 2:18 PM Samson Nguyen MD IMG XR PROCEDURES Final Result * [...] FIBULA LEFT 2+ VIEWS ordered by SAMSON NGUYEN, [id number] CLINICAL INDICATION: fall, pain TECHNIQUE: XR TIBIA [...] FIBULA LEFT 2+ VIEWS ordered by SAMSON NGUYEN,[id number] CLINICAL INDICATION: fall, pain TECHNIQUE: XR TIBIA [...] Antonio Mckinney on 04/30/2021 2:18 PM Samson Nguyen MD IMG XR PROCEDURES Final Result documented in this encounter Visit Diagnoses Diagnosis Closed fracture of distal end of left femur, unspecified fracture morphology, initial encounter ([facility]) Closed fracture of left distal femur ([facility]) Fall Unspecified fall Diabetes ([facility]) Type II or unspecified type diabetes mellitus without mention of complication, not stated as uncontrolled Elevated LFTs Other abnormal blood chemistry Lactic acidosis Acidosis HTN (hypertension) Unspecified essential hypertension Obesity Obesity, unspecified Fibromyalgia Unspecified myalgia and myositis Closed fracture of distal end of left femur, unspecified fracture morphology, initial encounter ([facility]) documented in this encounter Administered Medications Inactive [...] Given 05/06/2021 6:09 PM EST 1,000 mg baclofen (Lioresal) tablet 10 mg 10 mg, [...] indigestion, heartburn Given 05/04/2021 12:39 PM EST 50 0 mg cyanocobalamin (Vitamin B-12) tablet 1,000 mcg 1,000 mcg, Oral, Daily, First dose on Sun05/02/21 at 1230, Until Discontinued, Routine Given 05/07/2021 8:52 AM EST 1,000 mcg Given 05/06/2021 8:11 AM EST 1,000 mcg Given 05/05/2021 10:00 AM EST 1,000 mcg enoxaparin (Lovenox) syringe 60 mg 60 mg, Subcutaneous, 2 times daily, First dose on Sun05/02/21 at 1300, Until Discontinued, Routine Given 05/07/2021 8:50 AM EST 60 mg Left Lower Abdomen Given 05/06/2021 9:01 PM EST 60 mg Ri ght Lower Abdomen Given 05/06/2021 8:11 AM EST 60 mg Le ft Lower Abdomen ferrous sulfate EC tablet 324 mg 324 mg, Oral, Daily with breakfast, First dose on Sun05/03/21 at 0800, Until Discontinued Given 05/06/2021 9:01 PM EST 324 mg Given 05/05/2021 8:15 PM EST 324 mg Given 05/04/2021 9:46 AM EST 324 mg FLUoxetine (PROzac) capsule 40 mg 40 mg, Oral, 2 times daily, First dose on Sun05/02/21 at 1230, Until Discontinued, Routine Given 05/07/2021 8:5 1 AM EST 40 mg Given 05/06/2021 9:00 PM EST 40 mg Given 05/06/2021 8:10 AM EST 40 mg gabapentin (Neurontin) capsule 300 mg 300 mg, Oral, Every 8 hours, First dose (after last modification) on Sun05/03/21 at 0015, Until Discontinued, Routine Given 05/07/2021 8:51 AM EST 300 mg Given 05/07/2021 12:45 AM EST 300 mg Given 05/06/2021 6:10 PM EST 300 mg hydrOXYzine pamoate (Vistaril) capsule 25 mg 25 mg, Oral, 3 times daily PRN, Starting on Sun05/02/21 at 1159, Until 05/07/21 at 1114, Routine, anxiety Given 05/05/2021 8:15 PM EST 25 mg Given 05/04/2021 9:16 PM EST 25 mg Given 05/03/2021 9:46 AM EST 25 mg levothyroxine (Synthroid, Levoxyl) tablet 125 mcg 125 mcg, Oral, Daily before breakfast, First dose on 05/01/21 at 0730, Until Discontinued, Routine Given 05/07/2021 6:25 AM EST 125 mcg Given 05/06/2021 5:54 AM EST 125 mcg Given 05/05/2021 6:21 AM EST 125 mcg linaCLOtide (Linzess) tablet 145 mcg 145 mcg, Oral, Every morning, First dose on Sun05/03/21 at 0600, Until Discontinued, Routine Given 05/05/2021 6:21 AM EST 145 mcg melatonin tablet 6 mg 6 mg, Oral, Nightly PRN, Starting on 05/01/21 at 1825, Until 05/07/21 at 1114, Routine, sleep Given 05/05/2021 8:15 PM EST 6 mg Given 05/04/2021 9:16 PM EST 6 mg Given 05/01/2021 9:20 PM EST 6 mg methocarbamol (Robaxin) tablet 500 mg 500 [...] Given 05/05/2021 10:00 AM EST 10 mg multivitamin (Theragran-M) tablet 1 tablet 1 tablet, Oral, Daily, First dose on 05/02/21 at 1230, Until Discontinued Given 05/06/2021 9:00 PM EST 1 table t Given 05/05/2021 8:14 PM EST 1 tablet Given 05/04/2021 9:45 AM EST 1 tablet nystatin (Mycostatin) 612580 UNIT/GM powder 1 application Topical, 2 times daily, First dose on Sun05/04/21 at 1215, Until Discontinued, Routine Given 05/06/2021 9:02 PM EST 1 application. Given 05/06/2021 8:12 AM EST 1 application. Given 05/05/2021 8:17 PM EST 1 application. oxyCODONE (Roxicodone) immediate release tablet 5 mg [...] meals, First dose (after last modification) on 05/02/21 at 1700, Until Discontinued, Routine Given 05/07/2021 8:51 AM EST 40 mg Given 05/06/2021 6:09 PM EST 40 mg Given 05/06/2021 8:11 AM EST 40 mg phenol (Chloraseptic) 1.4 % mouth/throat spray 1 spray 1 spray, Mouth/Throat, Every 2 hour PRN, sore throat, Sore mouth, Instruct patient to spit out after 15 seconds., Starting on 12/26/21 at 1749 Given 05/01/2021 6:24 PM EST 1 spray senna-docusate (Nia-Colace) 8.6-50 MG per tablet 2 tablet 2 tablet, Oral, 2 times daily, First dose on 05/02/21 at 2100, Until Discontinued, Routine Given 05/04/2021 [...] Routine, line care documented in this encounter Active and Recently [...] Provider: Luci Mccann RN)1809 (Given - Provider: uLci Mccann RN) 0045 (Given - Provider: Jennifer Bernard, DIANE)0625 (Given - Provider: Jennifer Bernard, RN) baclofen (Lioresal) tablet 10 mg 10 mg, Oral, 3 times daily, First dose on Sun04/30/21 at 1615, Until Discontinued, Routine 1000 (Given - Provider: Savanna Pressley RN)1617 (Given - Provider: Savanna Pressley, RN)2014 (Given - Provider: Reny Padron RN) 08 (Given - Provider: Luci Mccann RN)1809 (Given - Provider: Luci Mccann RN)2099 (Given - Provider: Jennifer Bernard, DIANE) 0851 (Given - Provider: Luci Mccann RN) buPROPion (Wellbutrin) tablet 150 mg 150 mg, Oral, 2 times daily, First dose on Sun04/30/21 at 2100, Until Discontinued, Routine 1000 (Given - Provider: Savanna Pressley, DIANE)2013 (Given - Provider: Reny Padron RN) 810 (Given - Provider: Luci Mccann RN)2100 (Given - Provider: Jennifer Bernard, DIANE) 0850 (Given - Provider: Luci Mccann RN) [...] Discontinued, Routine 1000 (Given - Provider: Savanna Pressley, DIANE)2015 (Given - Provider: Reny Padron RN) 08 (Given - Provider: Luci Mccann RN)2100 (Given - Provider: Jennifer Bernard RN) 0850 (Given - Provider: Luci Mccann RN) ferrous sulfate EC tablet 324 mg 324 mg, Oral, Daily with breakfast, First dose on Sun05/03/21 at 0800, Until Discontinued 1000 (Not Given - Provider: Abimael Coronado PharmD - Reason: Other - Comment: Retimed for levofloxacin)2014 (Given - Provider: Reny Padron RN) 210 (Given - Provider: Jennifer Bernard RN) FLUoxetine (PROzac) capsule 40 mg 40 mg, Oral, 2 times daily, First dose on Sun05/02/21 at 1230, Until Discontinued, Routine 1000 (Given - Provider: Savanna Pressley RN)2013 (Given - Provider: Reny Padron RN) 0810 (Given - Provider: Luci Mccann RN)2100 (Given - Provider: Jennifer Bernard RN) 0851 (Given - Provider: Luci Mccann RN) gabapentin (Neurontin) capsule 300 mg 300 mg, Oral, Every 8 hours, First dose (after last modification) on Sun05/03/21 at 0015, Until Discontinued, Routine 1000 (Given - Provider: Savanna Pressley RN)1617 (Given - Provider: Savanna Pressley RN) 0019 (Given - Provider: Reny Padron RN)0810 (Given - Provider: Luci Mccann RN)1810 (Given - Provider: Luci Mccann RN) 0045 (Given - Provider: Jennifer Bernard, DIANE)0851 (Given - Provider: Luci Mccann RN) levoFLOXacin (Levaquin) tablet 750 mg (COMPLETED) 750 mg, Oral, Daily, 3 doses, First dose on Jessi 05/05/21 at 1015, Last dose on Sun05/07/21 at 0900, Routine 1000 (Given - Provider: Savanna Pressley RN) 0811 (Given - Provider: Luci Mccann RN) 0851 (Given - Provider: Luci Mccann RN) levothyroxine (Synthroid, Levoxyl) tablet 125 mcg 125 mcg, Oral, Daily before breakfast, First dose on Sun05/01/21 at 0730, Until Discontinued, Routine 0621 (Given - Provider: Reny Padron RN) 0554 (Given - Provider: Reny Padron RN) 0625 (Given - Provider: Jennifer Bernard RN) linaCLOtide (Linzess) tablet 145 mcg 145 mcg, [...] hours, First dose (after last modification) on Sun05/01/21 at 0015, Until Discontinued, Routine 1000 (Given - Provider: Savanna Pressley RN)1617 (Given - Provider: Savanna Pressley RN) 0019 (Given - Provider: Reny Padron RN)0811 (Given - Provider: Luci Mccann RN)1810 (Given - Provider: Luci Mccann RN) 0045 (Given - Provider: Jennifer Bernard RN)0851 (Given - Provider: Luci Mccann RN) montelukast (Singulair) tablet 10 mg 10 mg, Oral, Daily, First dose on 04/30/21 at 1615, Until Discontinued, Routine 1000 (Given - Provider: Savanna Pressley RN) 0811 (Given - Provider: Luci Mccann RN) 0851 (Given - Provider: Luci Mccann RN) multivitamin (Theragran-M) tablet 1 tablet 1 tablet, Oral, Daily, First dose on 05/02/21 at 1230, Until Discontinued 1001 (Not Given - Provider: Abimael Coronado, JaradD - Reason: Other - Comment: Retimed for levofloxacin administration)2013 (Given - Provider: Reny Padron RN) 2099 (Given - Provider: Jennifer Bernard, DIANE) nystatin (Mycostatin) 427641 UNIT/GM powder 1 application Topical, 2 times daily, First dose on Sun05/04/21 at 1215, Until Discontinued, Routine 1100 (Not Given - Provider: Savanna Pressley RN - Reason: Patient/family refused)2016 (Given - Provider: Reny Padron RN) 0812 (Given - Provider: Luci Mccann RN)210 (Given - Provider: Jennifer Bernard, DIANE) 0904 (Not Given - Provider: Luci Mccann [...] on Sun05/02/21 at 2100, Until Discontinued, Routine 102 (Not Given - Provider: Savanna Pressley RN - Reason: Patient/family refused)2026 (Not Given - Provider: Reny Padron RN - Reason: Order parameters not met) 0820 (Not Given - Provider: Luci Mccann RN - Reason: Patient/family refused)210 (Not Given - Provider: Jennifer Bernard RN - Reason: Patient/family refused) 0904 (Not Given - Provider: Luci Mccann RN - Reason: Patient/family refused) simvastatin (Zocor) tablet 5 mg 5 mg, Oral, Nightly, First dose on Sun05/04/21 at 2100, Until Discontinued, Routine 2014 (Given [...] Reny Padron RN)1019 (Given - Provider: Savanna Pressley, DIANE)1617 (Given - Provider: Savanna Pressley, RN)2014 (Given - Provider: Reny Padron RN) 0019 (Given - Provider: Reny Padron RN)0553 (Given - Provider: Reny Padron RN)1240 (Given - Provider: Luci Mccann, RN) 0049 (Given - Provider: Jennifer Bernard, DIANE)0851 (Given - Provider: Luci Mccann, RN) phenol [...] PRN, Starting on 04/30/21 at 2019, Until 05/04/21 at 1250, Routine, severe pain Group 2: [...] care documented in this encounter Care Teams Wire Puller Relationship Specialty Start Date End Date Salima Gonzáles DO [address] [place] [address] PCP - General 09/17/20 documented as of this encounter
--- OUTSIDE RECORDS SUMMARY | 2024-04-06 21:59 | XMS_ITS | Data Portability ---
Author Organization [place] - [facility] - [place] [facility] ADMIN Address [address] [place] [id number] Assessment Encounter Date Assessment Date Assessment LastModified by Organization Details LastModified Time 02/21/2022 02/21/2022 Patient doing very well. We will follow on a p.r.n. basis. [email or web address] Not available 02/21/2022 10:55:03 07/26/2022 07/26/2022 CT scan results discussed with patient. Lesion in question is a simple cyst will be followed with a repeat renal ultrasound in 1 year. Will schedule office cystoscopy and pelvic exam to address other issues. [email or web address] Not available 07/30/2022 21:31:13 02/19/2023 02/19/2023 will forego cystoscopy today. Will schedule abdominal pelvic CT scan without and with IV and oral contrast. Will refer patient expediently to Gastroenterology, [facility]. [email or web address] Not available 02/19/2023 15:09:25 03/27/2023 03/27/2023 57-year-old female with post-prandial abdominal cramping and diarrhea. CT imaging 12/15/22 was indicative of mild diffuse colitis. This was not redemonstrated on CT 03/07/23. She also complains of dysphagia. 1) Abdominal pain: Continue dicyclomine as needed. Will schedule EGD and colonoscopy. Samples of IBgard were provided. Low-FODMAP diet was counseled. 2) Colitis: Etiology not clear. Not redemonstrated on recent CT. Will obtain prior endoscopy records from [facility]. Will repeat colonoscopy due to worsening symptoms. 3) dysphagia: EGD scheduled. Continue protonix. She has a history of gastric bypass. [email or web address] Not available 03/27/2023 09:18:45 Plan of Treatment Reminders Order Date Submit Date Provider Last Modified By Organization Details Last Modified Time Details Appointments None recorded. Lab bun (blood urea nitrogen) , serum or plasma [address] [facility], [address] [place] [address], [address], [address], 3 15:05:53 creatinin e, serum or plasma [address] [facility], [address] [place] [address], [address] [place] [address], [address], 3 15:05:53 urinalysi s, dipstick [address] [facility], [address] [place] [address], [address], [address], 3 12:11:55 culture, urine [address] [facility], [address] [place] [address], Suite [facility], [place], [address], 3 09:01:00 urinalysi s, dipstick [address] [facility], [address] [place] [address], [address] [place] [address], [address], 3 14:26:50 renal function panel, serum [address] (Registration ), [address] [facility], [place], [address], 3 16:55:57 Referral None recorded. Procedures None recorded. Surgeries None recorded. Imaging CT, abdomen, w/wo contrast 2022 023 [email or web address] [facility] (Centralized Scheduling), [address] , [place], [address], 3 13:59:09 CT, abdomen + pelvis, w/wo contrast - Ct Scan abdomen and pelvis without and with IV and oral contrast 2022 023 [email or web address] [facility] (Centralized Scheduling), [address], [place], [address], 3 07:00:37 Medication Orders Macrobid 100 mg capsule [address] [facility], [address] [place] [address], [id number], 3 12:21:20 Patient TargetsNo targets recorded. Patient Instructions Encounter Date Encounter Id Patient Instructions Last Modified By Organization Details Last Modified Time 02/21/2022 [id number] Patient was instructed on wound care and not to remove the Steri-Strips for 10-12 days. If she has any problems she is to come to the office as soon as possible. Not available 02/21/2022 10:55:39 03/27/2023 [id number] Name: AMBIKA ROJAS Exam Date: 03/07/2023 : 1965 Age 57 Gender: F Physician: GIRISH RICKS Facility: [facility] Facility HSV: Outpatient Exam: CT ABD PEL W/W/O CT ABDOMEN AND PELVIS WITH AND WITHOUT CONTRAST HISTORY: Colitis. Lower abdominal pain. PROCEDURE: The patient was injected with 75 ml of Isovue. Precontrast images were also obtained. Oral contrast was administered. Axial images were obtained from the lung bases to the pubic symphysis by computed tomography. FINDINGS: ABDOMEN: The lung bases demonstrate patchy opacity in right lower lobe. This may represent an infectious or inflammatory process. The heart is normal in size. There is no free air. The liver is normal. The gallbladder surgically absent. There are postoperative changes of gastric bypass. The spleen is unremarkable. No adrenal mass is present. The pancreas is normal. The kidneys demonstrate a 1.5 cm right renal cyst. The aorta is normal in caliber. There is no free fluid or adenopathy. PELVIS: The appendix is normal. The urinary bladder is unremarkable. There is no significant free fluid or adenopathy. There are postoperative changes of left femur. IMPRESSION: 1. No evidence of acute intra-abdominal process. 2. Patchy right lung base opacity could represent atelectasis or pneumonia. ------- Name: AMBIKA HEDRICK Exam Date: 12/15/2022 : 1965 Age 56 Gender: F Physician: JANICE SHARMA Facility: [facility] Facility HSV: Outpatient Exam: CT ABD PEL W (IV CONT ONLY) FINAL REPORT TECHNIQUE: Axial CT images were performed from the lung bases through the symphysis pubis after the administration of intravenous contrast. This study was performed with techniques to keep radiation doses as low as reasonably achievable (ALARA). Individualized dose reduction techniques using automated exposure control or adjustment of mA and/or kV according to the patient's size were employed. CLINICAL HISTORY: Abdominal Pain diffuse/back pain FINDINGS: LOWER CHEST: The heart is normal size. The lung bases are clear. ABDOMEN/PELVIS: Liver, gallbladder and bile ducts: The liver enhances homogeneously without suspicious focal hepatic lesion. The patient status post cholecystectomy. There is no definite biliary duct dilatation. Adrenal glands: The adrenal glands are morphologically unremarkable without suspicious lesion. Kidneys, ureter and urinary bladder: No suspicious renal lesion. No hydronephrosis. Urinary bladder is unremarkable. Spleen: The spleen is normal size. Pancreas: The pancreas is grossly unremarkable. GI systems and mesentery: The patient is status post gastric bypass surgery. There is mild diffuse colonic wall thickening with liquid stool present throughout the colon. This may represent mild colitis. No evidence of bowel obstruction. The appendix is visualized and unremarkable in appearance. No significant mesenteric inflammation. Lymph nodes: No definite pathologically enlarged abdominal or pelvic lymph nodes present. Vessels: The aorta and abdominal arteries are grossly patent. The IVC and portal vein are patent and grossly unremarkable. Peritoneum: No free Legally authenticated by YANDY Godfrey 2022-12-16 00:13:21 intraperitoneal fluid or pneumoperitoneum. Pelvic viscera: The patient is status post hysterectomy. Body wall: No body wall contusion. No significant body wall hernias. Bones: No acute fracture. IMPRESSION: Mild colitis. Not available 03/27/2023 09:11:23 Reason for Referral None Reported. Results Created Date Observation Date Name Description Value Unit Range Abnormal Flag Note LastModifiedBy Organization Detail LastModifiedTime 02/03/20 22 02/02/2022 CBC AUTO NO DIFF (HEMO GRAM) WBC 8.6 10 4.5-11 .5 Not Available [facility] (Lab Registration) [address] [place], [address], 03/03/2022 09:02:43 02/03/20 22 02/02/2022 CBC AUTO NO DIFF (HEMO GRAM) RBC 4.70 10 4.25-5 .57 Not Available [facility] (Lab Registration) [address] [place], [address], 03/03/2022 09:02:43 02/03/20 22 02/02/2022 CBC AUTO NO DIFF (HEMO GRAM) HGB 13.7 g/dL 12.0-1 5.7 Not Available [facility] (Lab Registration) [address] [place], [address], 03/03/2022 09:02:43 02/03/20 22 02/02/2022 CBC AUTO NO DIFF (HEMO GRAM) HCT 41.4 % 36.0-4 7.0 Not Available [facility] (Lab Registration) [address] [place], [address], 03/03/2022 09:02:43 02/03/20 22 02/02/2022 CBC AUTO NO DIFF (HEMO GRAM) MCV 88.1 fL 80-95 Not Available [facility] (Lab Registration) [address] [place], [address], 03/03/2022 09:02:43 02/03/20 22 02/02/2022 CBC AUTO NO DIFF (HEMO GRAM) MCH 29.1 pg 27.0-3 4.0 Not Available [facility] (Lab Registration) [address] [place], [address], 03/03/2022 09:02:43 02/03/20 22 02/02/2022 CBC AUTO NO DIFF (HEMO GRAM) MCHC 33.1 g/dL 32.0-3 6.0 Not Available [facility] (Lab Registration) [address] [place], [address], 03/03/2022 09:02:43 02/03/20 22 02/02/2022 CBC AUTO NO DIFF (HEMO GRAM) platelet count 345 10 150-45 0 Not Available [facility] (Lab Registration) [address] [place], [address], 03/03/2022 09:02:43 02/03/20 22 02/02/2022 CBC AUTO NO DIFF (HEMO GRAM) RDW 13.4 % 12.3-1 5.1 Not Available [facility] (Lab Registration) [address] [place], [address], 03/03/2022 09:02:43 02/03/20 22 02/02/2022 CBC AUTO NO DIFF (HEMO GRAM) MPV 9.7 fL 7.4-10 .4 Not Available [facility] (Lab Registration) [address] [place], [address], 03/03/2022 09:02:43 02/03/20 22 02/02/2022 CBC AUTO NO DIFF (HEMO GRAM) note Unles s other lyles noted testi ng perfo rmed at: [facility] [address] [place] [address] [phone] Rafa king MD CLIA: [id number] Not Available [facility] (Lab Registration) [address] , [place], [address], 03/03/2022 09:02:43 02/03/20 22 02/02/2022 PT (PROT HROMB IN TIME) W INR PT (prothrombin time) 9.5 secon ds 9.3-11 .4 Not Available [facility] (Lab Registration) [address] [place], [address], 03/03/2022 09:02:44 02/03/20 22 02/02/2022 PT (PROT HROMB IN TIME) W INR INR 0.95 0.9-1. 1 INR is inten ded to be used only for patie nts on stabl e oral anti- coagu lant thera py. *Ther apeut ic Range s 2.0 - 3.0 Usual Thera peuti c Range 2.5 - 3.5 For patie nts with a histo ry of multi ple deep vein throm bus or mecha nical heart valve s. Not Available [facility] (Lab Registration) [address] [place], [address], 03/03/2022 09:02:44 02/03/2002/02/2022 PT (PROT HROMB IN TIME) W INR note Unles s other lyles noted testi ng perfo rmed at: [facility] [address] [place] [address] [phone] Rafa king MD CLIA: [id number] Not Available [facility] (Lab Registration) [address] [place], [address], 03/03/2022 09:02:44 02/03/20 22 02/02/2022 PTT (PART IAL THROM B TIME) PTT (partial thromb time) 25.0 secon ds 24.5-3 2.8 Not Available [facility] (Lab Registration) [address] [place], [address], 03/03/2022 09:02:45 02/03/20 22 02/02/2022 PTT (PART IAL THROM B TIME) note Unles s other lyles noted testi ng perfo rmed at: [facility] [address] [place] [address] [phone] Rafa king MD CLIA: [id number] Not Available [facility] (Lab Registration) [address] [place], [address], 03/03/2022 09:02:45 02/03/20 22 02/02/2022 COMP METAB OLIC PANEL sodium 142 mmol/ L 136-14 5 Not Available [facility] (Lab Registration) [address] [place], [address], 03/03/2022 09:02:45 02/03/20 22 02/02/2022 COMP METAB OLIC PANEL potassium 4.0 mmol/ L 3.5-5. 1 Not Available [facility] (Lab Registration) [address] [place], [address], 03/03/2022 09:02:45 02/03/20 22 02/02/2022 COMP METAB OLIC PANEL chloride 105 mmol/ L 98-107 Not Available [facility] (Lab Registration) [address] [place], [address], 03/03/2022 09:02:45 02/03/20 22 02/02/2022 COMP METAB OLIC PANEL carbon dioxide 29 mmol/ L 21-32 Not Available [facility] (Lab Registration) [address] [place], [address], 03/03/2022 09:02:45 02/03/20 22 02/02/2022 COMP METAB OLIC PANEL anion gap 8.0 Not Available [facility] (Lab Registration) [address] [place], [address], 03/03/2022 09:02:45 02/03/20 22 02/02/2022 COMP METAB OLIC PANEL glucose 82 mg/dL 70-110 Not Available [facility] (Lab Registration) [address] [place], [address], 03/03/2022 09:02:45 02/03/20 22 02/02/2022 COMP METAB OLIC PANEL blood urea nitrogen 16 mg/dL 7-18 Not Available [facility] (Lab Registration) [address] [place], [address], 03/03/2022 09:02:45 02/03/20 22 02/02/2022 COMP METAB OLIC PANEL creatinine 1.1 mg/dL 0.6-1. 0 high Not Available [facility] (Lab Registration) [address] [place], [address], 03/03/2022 09:02:45 02/03/20 22 02/02/2022 COMP METAB OLIC PANEL BUN/creatini ne ratio 14.5 ratio 9-21 Not Available [facility] (Lab Registration) [address] [place], [address], 03/03/2022 09:02:45 02/03/20 22 02/02/2022 COMP METAB OLIC PANEL estimated glom filtration rate 54 mL/mi n >60- low Not Available [facility] (Lab Registration) [address] [place], [address], 03/03/2022 09:02:45 02/03/20 22 02/02/2022 COMP METAB OLIC PANEL total protein 7.8 g/dL 6.4-8. 2 Not Available [facility] (Lab Registration) [address] [place], [address], 03/03/2022 09:02:45 02/03/20 22 02/02/2022 COMP METAB OLIC PANEL albumin 3.8 g/dL 3.4-5. 0 Not Available [facility] (Lab Registration) [address] [place], [address], 03/03/2022 09:02:45 02/03/20 22 02/02/2022 COMP METAB OLIC PANEL calcium 9.7 mg/dL 8.5-10 .1 Not Available [facility] (Lab Registration) [address] [place], [address], 03/03/2022 09:02:45 02/03/20 22 02/02/2022 COMP METAB OLIC PANEL corrected calcium 9.9 mg/dL 8.5-10 .1 Not Available [facility] (Lab Registration) [address] [place], [address], 03/03/2022 09:02:45 02/03/20 22 02/02/2022 COMP METAB OLIC PANEL bilirubin total 0.6 mg/dL 0.4-1. 5 Not Available [facility] (Lab Registration) [address] [place], [address], 03/03/2022 09:02:45 02/03/20 22 02/02/2022 COMP METAB OLIC PANEL AST (SGOT) 17 U/L 15-37 Not Available [facility] (Lab Registration) [address] [place], [address], 03/03/2022 09:02:45 02/03/20 22 02/02/2022 COMP METAB OLIC PANEL ALT (SGPT) 27 U/L 12-78 Not Available [facility] (Lab Registration) [address] [place], [address], 03/03/2022 09:02:45 02/03/20 22 02/02/2022 COMP METAB OLIC PANEL alk phosphatase 90 U/L 50-120 Not Available [facility] (Lab Registration) [address] [place], [address], 03/03/2022 09:02:45 02/03/20 22 02/02/2022 COMP METAB OLIC PANEL note Unles s other lyles noted testi ng perfo rmed at: [facility] [address] [place] [address] [phone] Rafa king MD CLIA: [id number] Not Available [facility] (Lab Registration) 9 [facility], [place], [address], 03/03/2022 09:02:45 06/14/19 23 06/14/2022 BUN BUN 25 mg/dL 7-18 high Not Available [facility] ([facility]) [address] [facility], [place], [address], 06/14/2022 13:52:57 06/14/19 23 06/14/2022 CREAT ININE creatinine 0.9 mg/dL 0.6-1. 3 Not Available [facility] ([facility]) [address] [facility], [place], [address], 06/14/2022 13:52:59 06/14/19 23 06/14/2022 CREAT ININE glomerular filtration rate >60 mlper min 60- Not Available [facility] ([facility]) [address] [facility], [place], [address], 06/14/2022 13:52:59 06/14/19 23 06/14/2022 urina lysis , dipst ick Leukocytes (reference range) trace Not Available [facility] [address], [address], 06/14/2022 11:54:26 06/14/19 23 06/14/2022 urina lysis , dipst ick Nitrite (reference range:) negati ve Not Available [facility] [address] [facility] [address] [place] [address], [address], 06/14/2022 11:54:26 06/14/19 23 06/14/2022 urina lysis , dipst ick Urobilinogen (reference range) 0.2 Not Available [address], [place], [address], 06/14/2022 11:54:26 06/14/19 23 06/14/2022 urina lysis , dipst ick Protein (reference range) negati ve Not Available [address], [place], [address], 06/14/2022 11:54:26 06/14/19 23 06/14/2022 urina lysis , dipst ick pH (reference range 5-8.5) 6.0 Not Available [facility] [address] [address], [place], [address], 06/14/2022 11:54:26 06/14/19 23 06/14/2022 urina lysis , dipst ick Blood (reference range:) small Not Available [address] [address], [place], [address], 06/14/2022 11:54:26 06/14/19 23 06/14/2022 urina lysis , dipst ick Specific [place] (reference range) 1.025 Not Available [address], [address], 06/14/2022 11:54:26 06/14/19 23 06/14/2022 urina lysis , dipst ick Ketone (reference range) trace Not Available [address] [address], [place], [address], 06/14/2022 11:54:26 06/14/19 23 06/14/2022 urina lysis , dipst ick Bilirubin (reference range) negati ve Not Available [address] [place], [address], 06/14/2022 11:54:26 06/14/19 23 06/14/2022 urina lysis , dipst ick Glucose (reference range) negati ve Not Available [facility] [address] [place] [address] [address], [place], [address], 06/14/2022 11:54:26 06/14/19 23 06/14/2022 urina lysis , dipst ick Color (reference range: yellow-brown ) Yellow Not Available [address], [place], [address], 06/14/2022 11:54:26 07/27/19 23 07/26/2022 urina lysis , dipst ick Leukocytes (reference range) negati ve Not Available [address], [place], [address], 07/26/2022 14:21:32 07/27/19 23 07/26/2022 urina lysis , dipst ick Nitrite (reference range:) negati ve Not Available [address], [place], [address], 07/26/2022 14:21:32 07/27/19 23 07/26/2022 urina lysis , dipst ick Urobilinogen (reference range) 0.2 Not Available [address], [place], [address], 07/26/2022 14:21:32 07/27/19 23 07/26/2022 urina lysis , dipst ick Protein (reference range) negati ve Not Available [address], [place], [address], 07/26/2022 14:21:32 07/27/19 23 07/26/2022 urina lysis , dipst ick pH (reference range 5-8.5) 5.0 Not Available [facility] [address], [place], [address], 07/26/2022 14:21:32 07/27/19 23 07/26/2022 urina lysis , dipst ick Blood (reference range:) negati ve Not Available [facility] [address] [place] [address] [address], [place], [address], 07/26/2022 14:21:32 07/27/19 23 07/26/2022 urina lysis , dipst ick Specific [place] (reference range) 1.015 Not Available [facility] [address] [place] [address] [address], [place], [address], 07/26/2022 14:21:32 07/27/19 23 07/26/2022 urina lysis , dipst ick Ketone (reference range) negati ve Not Available [facility] [address] [place] [address] [address], [place], [address], 07/26/2022 14:21:32 07/27/19 23 07/26/2022 urina lysis , dipst ick Bilirubin (reference range) negati ve Not Available [facility] [address], [place], [address], 07/26/2022 14:21:32 07/27/19 23 07/26/2022 urina lysis , dipst ick Glucose (reference range) negati ve Not Available [facility] [address] [place] [address] [address], [place], [address], 07/26/2022 14:21:32 07/27/19 23 07/26/2022 urina lysis , dipst ick Color (reference range: yellow-brown ) Yellow Not Available [facility] [address] [place] [address] [address], [place], [address], 07/26/2022 14:21:32 02/20/2002/19/2023 RENAL FUNCT ION PANEL sodium 143 mmol/ L 136-14 5 Not Available [facility] ([facility]) [address] , [place], [address], 02/19/2023 16:15:57 02/20/20 23 02/19/2023 RENAL FUNCT ION PANEL potassium 4.1 mmol/ L 3.6-5. 0 Not Available [facility] ([facility]) [address] , [place], [address], 02/19/2023 16:15:57 02/20/2002/19/2023 RENAL FUNCT ION PANEL chloride 106 mmol/ L 98-107 Not Available [facility] ([facility]) [address] , [place], [address], 02/19/2023 16:15:57 02/20/20 23 02/19/2023 RENAL FUNCT ION PANEL carbon dioxide 27.3 mmol/ L 21.0-3 2.0 Not Available [facility] ([facility]) [address] , [place], [address], 02/19/2023 16:15:57 02/20/20 23 02/19/2023 RENAL FUNCT ION PANEL anion gap 13.8 Not Available [facility] ([facility]) [address] , [place], [address], 02/19/2023 16:15:57 02/20/20 23 02/19/2023 RENAL FUNCT ION PANEL glucose 87 mg/dL 70-120 Not Available [facility] ([facility]) [address] , [place], [address], 02/19/2023 16:15:57 02/20/20 23 02/19/2023 RENAL FUNCT ION PANEL BUN 19 mg/dL 7-18 high Not Available [facility] ([facility]) [address] , [place], [address], 02/19/2023 16:15:57 02/20/20 23 02/19/2023 RENAL FUNCT ION PANEL creatinine 0.8 mg/dL 0.6-1. 3 Not Available [facility] ([facility]) [address], [place], [address], 02/19/2023 16:15:57 02/20/20 23 02/19/2023 RENAL FUNCT ION PANEL albumin 3.7 g/dL 3.4-5. 0 Not Available [facility] ([facility]) [address], [place], [address], 02/19/2023 16:15:57 02/20/20 23 02/19/2023 RENAL FUNCT ION PANEL calcium 8.9 mg/dL 8.5-10 .5 Not Available [facility] ([facility]) [address], [place], [address], 02/19/2023 16:15:57 02/20/2002/19/2023 RENAL FUNCT ION PANEL phosphorus 3.7 mg/dL 2.5-4. 9 Not Available [facility] ([facility]) [address], [place], [address], 02/19/2023 16:15:57 03/03/20 22 02/02/2022 XR, chest , 2 view [facility] [address] [place] [address] Phone: Fax: Name: SHARON PIERRE Exam Date: 022 : [birth year] Age 56 Gender : F Access ion: [id number] Physic jose: RYLIE BUCK ty: [facility] Facili ty HSV: Outpat ient Exam: CHEST PA ^ LAT CHEST, 2 views HISTOR Y: Preope rative exam for respir atory cleara nce. COMPAR ERNESTINA: 2018. FINDIN GS: There is eviden ce of calcif ied granul omatou s diseas e. The lungs are clear. There is no eviden ce of effusi on or other pleura l diseas e. The medias tinum has a normal appear ance. The cardia c silhou ette is unrema rkable .No acute osseou s change s. IMPRES ALEX: No acute cardio pulmon christina proces s. Dictat ed By: MEGAN BILL Transc ribed By: MEGAN BILL Transc ribed On: 5:06 PM Electr onical ly signed by: MEGAN BILL Thank you for referr ing SH[facility]ON PIERRE to [facility]. Legall y authen ticate d by POPE MEGAN Quinteros DO 02-02 17:06: 00 CC'ed Logic: Orderi ng Provid er: MILDRED YOUNGBLOOD CC Provid er: SHMUEL RODRÍGUEZ Attend ing Provid er: MILDRED YOUNGBLOOD Referr ing Provid er: MILDRED YOUNGBLOOD Admitt ing Provid er: MILDRED YOUNGBLOOD [email or web address] [facility] (Radiology) [address] [place] [address] , [place], [address], 03/06/2022 07:56:34 07/19/19 23 07/18/2022 CT ABD w/w/O [facility] [address] [place] [address] Phone: Fax: Name: SHARON PIERRE Exam Date: 023 : [birth year] Age 56 Gender : F Access ion: [id number] Physic jose: DEUCE FRITZ Facili ty: [facility] Facili ty HSV: Outpat ient Exam: CT ABD W/W/O CT ABDOME N WITHOU T AND WITH CONTRA ST TECHNI QUE: Pre-an d post IV contra st enhanc ed exam. HISTOR Y: Right renal lesion COMPAR ERNESTINA: September 05, 2021. FINDIN GS: ABDOME N: Stable appear ance to 1.6 x 1.8 cm exophy tic hypode nse right renal lesion consis tent with a cyst. There is no apprec iable contra st enhanc ement. There is no hydron ephros is or visual ized renal stones . Gallbl adder is absent . There is eviden ce of calcif ied granul omatou s diseas e. Basila r atelec tasis noted. The heart is enlarg ed. Small hiatal hernia is noted. Postop erativ e change s of gastri c bypass . No focal liver lesion s. Spleen is normal size. No pancre atic inflam matory change s. Adrena l glands are unrema rkable . No acute osseou s change s. Ventra l wall staple s are noted. IMPRES ALEX: Stable appear ance to 1.6 x 1.8 cm exophy tic hypode nse right renal lesion consis tent with a cyst. This study was perfor med using automa matheus techni ques to achiev e radiat ion exposu re as low as reason ably achiev able Dictat ed By: MEGAN BILL Transc ribed By: Megan Bill Transc ribed On: 023 5:28 PM Electr onical ly signed by: MEGAN BILL 023 [facility] Legall y authen ticate d by POPE MEGAN Quinteros 0 07-18 17:28: 10 CC'ed Logic: Orderi ng Provid er: CATRINA Ybarra Attend ing Provid er: CATRINA Ybarra Admitt ing Provid er: CATRINA Ybarra [email or web address] [facility] [address] [facility], [place], [address], 07/19/2022 08:25:46 03/07/20 23 03/07/2023 CT ABD pel w/w/O [facility] [address] [place] [address] Phone: Fax: Name: SHARON PIERRE Exam Date: : 965 Age 57 Gender : F Access ion: [id number] Physic jose: LILLY Ybarra, RAY Facili ty: [place] Facili ty HSV: Outpat ient Exam: CT ABD PEL W/W/O CT ABDOME N AND PELVIS WITH AND WITHOU T CONTRA ST HISTOR Y: Coliti s. Lower abdomi nal pain. PROCED URE: The patien t was inject ed with 75 ml of Isovue . Precon trast images were also obtain ed. Oral contra st was admini stered . Axial images were obtain ed from the lung bases to the pubic symphy sis by comput ed tomogr aphy. FINDIN GS: ABDOME N: The lung bases demons trate patchy opacit y in right lower lobe. This may repres ent an infect ious or inflam matory proces s. The heart is normal in size. There is no free air. The liver is normal . The gallbl adder surgic ally absent . There are postop erativ e change s of gastri c bypass . The spleen is unrema rkable . No adrena l mass is presen t. The pancre as is normal . The kidney s demons trate a 1.5 cm right renal cyst. The aorta is normal in calibe r. There is no free fluid or adenop athy. PELVIS : The append ix is normal . The urinar y bladde r is unrema rkable . There is no signif icant free fluid or adenop athy. There are postop erativ e change s of left femur. IMPRES ALEX: 1. No eviden ce of acute intra- abdomi nal proces s. 2. Patchy right lung base opacit y could repres ent atelec tasis or pneumo lazaro. Films review ed , interp reted and dictat ed by Dr.Pop kole Sanders ribed by Kojo Easley PA-C. Dictat ed By: MEGAN BILL Transc ribed By: Megan Bill Transc ribed On: 023 4:17 PM Electr onical ly signed by: MEGAN BILL 023 Thank you for referr SHARON Trevizo to [facility]. Legall y authen ticate d by POPE MEGAN Quinteros 2022-05 16:17: 12 CC'ed Logic: Orderi ng Provid er: LILLY MARTINEZ Attend ing Provid er: LILLY MARTINEZ Referr ing Provid er: LILLY MARTINEZ Admitt ing Provid er: LILLY MARTINEZ [email or web address] [facility] [address] , [place], [address], 03/12/2023 13:14:30 Result Notes None recorded. Problems Name Problem SNOMED Code Status Onset Date Resolution Date Notes Provider Name and Address Organization Details Recorded Time Abdominal pain 08642445 Active 023 Kwabena Rubio PA-C [address] , [place], [address] , [place] - [facility] [place] & [place] 3 08:12:40 Diarrhea 22548703 Active 023 Kwabena Rubio PA-C [address] , [place], [address] , [place] - [facility] [place] & [place]ía 3 08:12:43 Colitis 74690279 Active 023 Kwabena Rubio PA-C [address] , [place], [address] , [place] - [facility] [place] & [place]ía 3 09:11:27 Dysphagia 49276273 Active 023 Kwabena Rubio PA-C [address], [place], [address] , [place] - [facility] [place] & [place]ía 3 09:11:34 Problem Notes None recorded. Procedures Surgical History Date Name Laterality Status Provider Name and Address Organization Details Recorded Time Cholecystectomy completed Crow Robert [facility] - [place] & [place] 01/25/2022 13:24:43 section completed Crow Robert [facility] - [place] & [place] 01/25/2022 13:25:11 lithotripsy completed Crow Robert [facility] - [place] & [place] 01/25/2022 13:25:25 removal of sebaceous cyst [facility] [place] 01/25/2022 13:26:00 Total Hysterectomy [facility] [place] 01/25/2022 13:28:53 Tonsillectomy completed [facility] [place] 01/25/2022 13:29:05 Knee arthroscopy/surgery completed Crow Robert [facility] & [place] 01/25/2022 13:29:18 Gastric bypass for obesity completed [facility] [place] 01/25/2022 13:29:27 excision of intra-abdominal mass completed [facility] [place] 01/25/2022 13:30:03 Imaging Results Imaging Date Name Status LastModified by Organiz ation Details LastModified Time 02/02/2022 XR, chest, 2 view completed [email or web address] [facility] (Radiology) [address] [place] [address] [place], [address], 03/06/2022 07:56:34 07/18/2022 CT ABD w/w/O completed [email or web address] [facility] [address] [place] [address], [address], 07/19/2022 08:25:46 03/07/2023 CT ABD pel w/w/O completed [email or web address] [facility] [address] [place] [address], [address], 03/12/2023 13:14:30 Procedure Notes None recorded. Medical Equipment None Reported. Allergies Allergen ID Allergen Name Allergen Category Reaction Reaction Severity Criticality Documentation Date Start Date Code Code System Note Provider Name and Address Organization Details Recorded Time 37779 Medicinal product containin g cephalosp melissa and acting as antibacte rial agent (product) medicatio n Not available Not available Not available 01/25/2022 55291 9009 SNOMED Crow dickson JAMAL Jakob [facility] & [place] 13:14:15 38323 Product containin g angiotens in-conver ting enzyme inhibitor (product) medicatio n Not available Not available Not available 01/25/2022 54928 009 SNOMED Crow dickson [facility] & [place] 2 13:14:06 55632 ciproflox acin medicatio n Not available Not available Not available 01/25/2022 2551 RxNorm Crow dickson [facility] & [place] 2 13:14:14 83968 honey bee venom medicatio n Not available Not available Not available 01/25/2022 46139 7 RxNorm Crow dickson [facility] & [place] 2 13:14:10 99971 fluoxetin e medicatio n Not available Not available Not available 01/25/2022 4493 RxNorm Crow dickson [facility] & [place] 2 12:46:20 15737 amlodipin e medicatio n Not available Not available Not available 01/25/2022 97910 RxNorm JAMAL Bazzi [facility] & [place] 2 13:14:08 90181 morphine medicatio n Not available Not available Not available 01/25/2022 7052 RxNorm JAMAL Bazzi [facility] & [place] 2 13:18:50 84847 Ceftin medicatio n Not available Not available Not available 01/31/2022 01307 6 RxNorm JAMAL Bazzi [facility] & [place] 2 13:15:16 Medications Name Sig Start Date Stop Date Status Note LastModified by Organization Details LastModified Time Miralax 17 gram oral powder packet Take 5 packets 3 times a day by oral route as directed for 1 day. 2023 active Not Available Not Available Not Avai lable fluoxetine 40 mg capsule TAKE ONE CAPSULE BY MOUTH TWICE DAILY active Not Available Not Available No t Available cyclobenzapr ine 10 mg tablet TAKE 1 TABLET BY MOUTH IN THE EVENING NEEDED FOR PAIN, MAY CAUSE DROWSINESS active Not Available Not Available N ot Available amoxicillin 500 mg capsule TAKE 1 CAPSULE BY MOUTH TWICE DAILY FOR 10 DAYS active Not Available Not Available No t Available fluconazole 100 mg tablet TAKE ONE TABLET BY MOUTH EVERY DAY FOR 3 DAYS -- FINISH ALL MEDICINE -- active Not Available Not Available Not Available methocarbamo l 500 mg tablet active Not Available Not Available Not Available hydrocortiso ne 0.5 % topical cream As needed active Not Available Not Available No t Available bupropion HCl SR 150 mg tablet,12 hr sustained-re lease TAKE ONE TABLET BY MOUTH TWICE DAILY active Not Available Not Available No t Available promethazine -DM 6.25 mg-15 mg/5 mL oral syrup TAKE 1 TEASPOONFUL (5 ML) BY MOUTH EVERY 6 HOURS NEEDED FOR cough/conge stion/drain age active Not Available Not Available No t Available potassium chloride ER 10 mEq capsule,exte nded release TAKE ONE CAPSULE BY MOUTH EVERY DAY active Not Available Not Available No t Available prednisone 10 mg tablet TAKE 4 TABLETS BY MOUTH ONCE DAILY FOR 3 DAYS, THEN 3 ONCE DAILY FOR 3 DAYS, THEN 2 ONCE DAILY FOR 3 DAYS, THEN 1 ONCE DAILY FOR 3 DAYS active Not Available Not Available No t Available albuterol sulfate 2.5 mg/3 mL (0.083 %) solution for nebulization INHALE THE CONTENTS OF 1 VIAL VIA NEBULIZER EVERY 6 HOURS active Not Available Not Available No t Available azithromycin 250 mg tablet TAKE 1 TABLET BY ORAL ROUTE ONCE DAILY FOR 4 DAYS active Not Available Not Available N ot Available ibuprofen 800 mg tablet TAKE ONE TABLET BY MOUTH EVERY 8 HOURS NEEDED FOR PAIN --TAKE WITH FOOD-- active Not Available Not Available Not Available ofloxacin 0.3 % eye drops instill 2 drops into affected eye(s) every 2 hours FOR 2 DAYS, THEN instill 1 drop FOUR TIMES DAILY ON DAYS 3-7. active Not Available Not Available No t Available nystatin 100,000 unit/gram topical ointment APPLY TOPICALLY TO THE AFFECTED AREA(S) TWICE DAILY FOR FOURTEEN DAYS active Not Available Not Available No t Available fluconazole 150 mg tablet TAKE ONE TABLET BY MOUTH EVERY DAY active Not Available Not Available No t Available hydrocodone 5 mg-acetamino phen 325 mg tablet TAKE ONE TABLET BY MOUTH EVERY 4 TO 6 HOURS NEEDED FOR PAIN active Not Available Not Available No t Available fluconazole 200 mg tablet TAKE ONE TABLET BY MOUTH A ONE-TIME DOSE, REPEAT DOSE WEEKLY FOR RECURRENT YEAST INFECTION active Not Available Not Available No t Available prednisone 20 mg tablet TAKE TWO TABLETS BY MOUTH ONCE DAILY FOR FOUR DAYS, THEN TAKE ONE TABLET BY MOUTH ONCE DAILY FOR FOUR DAYS, THEN TAKE 1/2 TABLET BY MOUTH ONCE DAILY FOR FOUR DAYS THEN STOP --TAKE WITH FOOD-- active Not Available Not Available No t Available Flonase 50 mcg/actuatio n nasal spray,suspen alex [place] 1 spray twice a day by intranasal route. active Not Available Not Available No t Available hydralazine 25 mg tablet Take 1 tablet by oral route as needed. active Not Available Not Available N ot Available acetaminophe n 300 mg-codeine 30 mg tablet TAKE ONE TABLET BY MOUTH EVERY 6 HOURS NEEDED FOR SEVERE pain MAY CAUSE DROWSINESS active Not Available Not Available N ot Available sulfamethoxa zole 800 mg-trimethop rim 160 mg tablet active Not Available Not Available Not Available hydrocodone 10 mg-acetamino phen 325 mg tablet TAKE 1 TABLET BY MOUTH EVERY 4 TO 6 HOURS active Not Available Not Available No t Available tramadol 50 mg tablet TAKE 1 TABLET BY MOUTH THREE TIMES DAILY NEEDED FOR PAIN , CAUTION MAY CAUSE SEDATION active Not Available Not Available No t Available pantoprazole 20 mg tablet,delay ed release TAKE ONE TABLET BY MOUTH TWICE DAILY active Not Available Not Available No t Available oxycodone-ac etaminophen 5 mg-325 mg tablet TAKE 1 TABLET BY MOUTH EVERY 6 HOURS NEEDED FOR MODERATE TO SEVERE PAIN active Not Available Not Available Not Available amoxicillin 875 mg tablet TAKE ONE TABLET BY MOUTH EVERY TWELVE HOURS FOR 10 DAYS -- FINISH ALL MEDICINE -- active Not Available Not Available Not Available dicyclomine 20 mg tablet TAKE ONE TABLET BY MOUTH EVERY 8 HOURS active Not Available Not Available No t Available baclofen 10 mg tablet TAKE ONE TABLET BY MOUTH TWICE DAILY MAY CAUSE DROWSINESS active Not Available Not Available N ot Available benzonatate 100 mg capsule TAKE ONE CAPSULE BY MOUTH THREE TIMES DAILY NEEDED FOR cough -SWALLOW WHOLE. DO NOT CRUSH OR CHEW- active Not Available Not Available No t Available simvastatin 5 mg tablet TAKE ONE TABLET BY MOUTH EVERY DAY active Not Available Not Available No t Available hydrocodone 7.5 mg-acetamino phen 325 mg tablet TAKE 1 TABLET BY MOUTH EVERY 6 HOURS NEEDED FOR PAIN . DO NOT EXCEED 4 PER 24 HOURS active Not Available Not Available No t Available oseltamivir 75 mg capsule TAKE ONE CAPSULE BY MOUTH TWICE DAILY -- FINISH ALL MEDICINE -- active Not Available Not Available Not Available levothyroxin e 125 mcg tablet TAKE ONE TABLET BY MOUTH EVERY DAY active Not Available Not Available No t Available Advair Diskus 250 mcg-50 mcg/dose powder for inhalation Inhale 1 puff twice a day by inhalation route. active Not Available Not Available No t Available nystatin-tri amcinolone 100,000 unit/g-0.1 % topical cream APPLY TOPICALLY TO THE AFFECTED AREA(S) TWICE DAILY DIRECTED -- FOR EXTERNAL USE ONLY-- active Not Available Not Available N ot Available gabapentin 300 mg capsule active Not Available Not Available Not Available montelukast 10 mg tablet TAKE ONE TABLET BY MOUTH EVERY DAY IN THE EVENING active Not Available Not Available No t Available hydrochlorot hiazide 25 mg tablet TAKE ONE TABLET BY MOUTH EVERY DAY active Not Available Not Available No t Available mupirocin 2 % topical ointment APPLY 1 GRAM ON SKIN TWICE DAILY active Not Available Not Available No t Available furosemide 20 mg tablet TAKE ONE TABLET BY MOUTH EVERY DAY active Not Available Not Available No t Available epinephrine 0.3 mg/0.3 mL injection, auto-injecto r USE DIRECTED NEEDED FOR BEE/WASP STING active Not Available Not Available No t Available polyethylene glycol 3350 17 gram/dose oral powder Take by oral route for 1 day. active Not Available Not Available N ot Available levofloxacin 500 mg tablet TAKE ONE TABLET BY MOUTH EVERY DAY -- FINISH ALL MEDICINE -- active Not Available Not Available Not Available levofloxacin 750 mg tablet active Not Available Not Available Not Available scopolamine 1 mg over 3 days transdermal patch active Not Available Not Available Not Available methylpredni solone 4 mg tablets in a dose pack TAKE ACCORDING TO PACKAGE INSTRUCTION S --TAKE WITH FOOD-- -- FINISH ALL MEDICINE -- active Not Available Not Available Not Available albuterol sulfate HFA 90 mcg/actuatio n aerosol inhaler INHALE TWO PUFFS BY MOUTH EVERY 6 HOURS NEEDED FOR SHORTNESS OF BREATH OR wheezing active Not Available Not Available Not Available hydroxyzine HCl 10 mg tablet TAKE ONE TABLET BY MOUTH EVERY 8 HOURS active Not Available Not Available No t Available ondansetron 4 mg disintegrati ng tablet DISSOLVE ONE TABLET in MOUTH EVERY 8 HOURS NEEDED FOR NAUSEA active Not Available Not Available No t Available losartan 100 mg tablet TAKE ONE TABLET BY MOUTH EVERY DAY active Not Available Not Available No t Available ketoconazole 1 % shampoo As needed active Not Available Not Availabl e Not Available dicyclomine 10 mg capsule TAKE ONE CAPSULE BY MOUTH EVERY 6 HOURS active Not Available Not Available No t Available loratadine 10 mg tablet TAKE ONE TABLET BY MOUTH EVERY DAY active Not Available Not Available No t Available oxycodone 5 mg tablet active Not Available Not Available No t Available hydroxyzine pamoate 25 mg capsule TAKE 1 CAPSULE BY MOUTH THREE TIMES DAILY active Not Available Not Available Not Available neomycin-fab ymyxin-hydro thang 3.5 mg-10,000 unit/mL-1 % ear drops,susp INSTILL 4 DROPS INTO RIGHT EAR 4 TIMES DAILY active Not Available Not Available Not Available enoxaparin 60 mg/0.6 mL subcutaneous syringe active Not Available Not Available Not Available nitrofuranto in monohydrate/ macrocrystal s 100 mg capsule TAKE ONE CAPSULE BY MOUTH EVERY TWELVE HOURS FOR 7 DAYS -- FINISH ALL MEDICINE -- active Not Available Not Available Not Available eszopiclone 2 mg tablet TAKE 1 TABLET BY MOUTH AT NIGHT, TAKE IMMEDIATELY BEFORE BEDTIME. MAX DAILY DOSE OF 2MG active Not Available Not Available Not Available pregabalin 150 mg capsule TAKE ONE CAPSULE BY MOUTH TWICE DAILY MAY CAUSE DROWSINESS active Not Available Not Available N ot Available Advair HFA 115 mcg-21 mcg/actuatio n aerosol inhaler INHALE 2 PUFFS BY MOUTH TWICE DAILY active Not Available Not Available No t Available Januvia 100 mg tablet TAKE ONE TABLET BY MOUTH EVERY DAY active Not Available Not Available No t Available Enbrel SureClick 50 mg/mL (1 mL) subcutaneous pen injector active Not Available Not Available Not Available peg 3350-electro lytes 236 gram-22.74 gram-6.74 gram-5.86 gram solution take 2000 ML (1/2 of liquid in bottle after mixing) BY MOUTH EVERY DAY DIRECTED FOR 2 DAYS active Not Available Not Available N ot Available diclofenac 1 % topical gel APPLY 4 GRAMS TOPICALLY 4 TIMES DAILY NEEDED FOR PAIN, APPLY TO SINGLE, ANKLE, FOOT; FOR FOOT INCLUDES SOLE/TOES/T OP OF FOOT active Not Available Not Available N ot Available loratadine 10 mg capsule Take 10 mg every day by oral route. active Not Available Not Available No t Available doxycycline hyclate 150 mg tablet TAKE 1 TABLET BY MOUTH TWICE DAILY active Not Available Not Available No t Available bupropion HCl 150 mg tablet,12 hr sustained-re lease(smokin g deterrent) Take 1 tablet twice a day by oral route. active Not Available Not Available No t Available diclofenac 1 % and meth salicylate 30 %-menthol 10 % topical gel,cream As needed active Not Available Not Available Not Available Emgality Pen 120 mg/mL subcutaneous pen injector INJECT 1 ML (120 MG) SUBCUTANEOU SLY ONCE a MONTH active Not Available Not Available No t Available Skyrizi 150 mg/1.66 mL(75 mg/0.83 mL x 2) subcutaneous syringe kit Inject by subcutaneou s route as directed. active Not Available Not Available No t Available Nurtec ODT 75 mg disintegrati ng tablet DISSOLVE ONE TABLET in MOUTH DIRECTED NEEDED FOR MIGRAINE active Not Available Not Available No t Available FreeStyle Niels 2 Sensor kit USE DIRECTED FOR CONTINUOUS GLUCOSE MONITORING active Not Available Not Available N ot Available FreeStyle Niels 2 [place] USE DIRECTED active Not Available Not Available No t Available Skyrizi 150 mg/mL subcutaneous pen injector active Not Available Not Available Not Available Paxlovid 150 mg-100 mg tablets in a dose pack (Renal Dose) FOLLOW DIRECTIONS ON PACKAGE active Not Available Not Available N ot Available Vitals Date Recorded Body height Body mass index (BMI) Body weight Systolic blood pressure Diastolic blood pressure Provider Name and Address Organization Details Last Updated DateTime 06/14/2022 154.94 cm 47.6 kg/m2 933265.2 8 g 132 mm[Hg] 70 mm[Hg] Cassie Elliot [facility] [place] 3 11:57:31 Date Recorded Body height Body mass index (BMI) Body weight Heart rate Oxygen saturation Oxygen saturation in Arterial blood by Pulse oximetry Body temperature Systolic blood pressure Diastolic blood pressure Provider Name and Address Organization Details Last Updated DateTime 2 154.94 cm 47.4 kg/m2 765967. 68 g 83 /min 95 % 95 % 97.8 [degF] 110 mm[Hg] 76 mm[Hg] Crow Nelson [facility] [place] 2 10:34:58 Date Recorded Body height Body mass index (BMI) Body weight Body temperature Heart rate Heart rate Oxygen saturation Oxygen saturation in Arterial blood by Pulse oximetry Systolic blood pressure Diastolic blood pressure Provider Name and Address Organization Details Last Updated DateTime 3 154.94 cm 49.3 kg/m2 462351. 89 g 97.5 [degF] 91 /min 89 /min 98 % 98 % 151 mm[Hg] 105 mm[Hg] Janina Avery [facility] [place] 08:35:06 Social History Question Answer Notes LastModified by Organizat ion Details LastModified Time Tobacco Smoking Status Current Some Day Smoker Crow dickson, [facility] [place] 01/31/2022 12:53:29 What Is Your Level Of Alcohol Consumption? Occasional [email or web address] Information not available 01/31/2022 What Is Your Occupation? [employer] Information not available 08/22/2021 How Much Tobacco Do You Smoke? 0.5 PPD [email or web address] Information not available 01/25/2022 Do You Use Any Illicit Or Recreational Drugs? No [email or web address] Information not available 01/25/2022 Sex: Unknown Functional Status None recorded. Mental Status None recorded. Family History Relationship Description Onset Age of this Age Resolved Age Notes LastModified by Organization Details LastModified Time Mother Diabetes mellitus [email or web address] Not available 2021 13:23:04 Mother Hypertensive disorder Not available 2021 13:23:16 Father Diabetes mellitus [email or web address] Not available 2021 13:23:26 Father Hypertensive disorder [email or web address] Not available 2021 13:23:34 Medical History Condition Response Coronary Artery Disease N Gout N Other N Kidney Stones N Hyperthyroidism N Depression Y COPD N Hypothyroidism Y Deep Vein Thrombosis N Anxiety Disorder Y Autoimmune disease N Arthritis N Cancer N Stroke N High Cholesterol N Liver Disease N Headaches N Kidney Disease N Anemia Y Diabetes Y Bleeding Disorder N Seizures/Epilepsy N Tuberculosis N Diverticulitis N Asthma Y Reflux/GERD N Hepatitis N Heart Disease N Bronchitis N Pulmonary Embolism N Hypertension N Gynecological HistoryNo gynecological history recorded. Obstetrics History GPAL:G 0 P 0 0 0 0 Past Encounters Encounter ID Performer Location Encounter Start Date Encounter Closed Date Diagnosis/Indication Diagnosis SNOMED-CT Code Diagnosis ICD10 Code [id number] Rylie Buck MD [facility] [address] [place] [id number] 01/31/2022 12:49:37 01/31/2022 14:34:29 Cyst of abdomen 796375681 R19.00 [id number] Rylie Buck MD [facility] [address] [facility] [place] [address] 02/14/2022 11:08:58 02/14/2022 11:32:42 Post-surgical wound care 553403765 Z48.01 Epidermoid cyst of skin 372472765 L72.3 [id number] Rylie Buck MD [facility] [address] [facility] [address] 02/21/2022 10:29:04 02/21/2022 11:02:21 Cyst of abdomen 199371592 R19.00 Postoperative visit 1836 95493 Z09 [id number] Maria Del Rosario Fritz NP, [facility] [address] [place] [address],[address] [place] [id number] 06/14/2022 11:30:03 06/14/2022 12:34:15 History of urinary tract infection 2752129976 107 Z87.440 Renal mass 193427999 N28 .89 [id number] Girish Ricks MD [facility] [address] [place] [address],[address] [place] [id number] 4 07/26/2022 13:30:42 07/26/2022 14:11:40 History of urinary tract infection 6050978154 107 Z87.440 Renal mass 031819249 N28 .89 Cyst of kidney 201793587 N28.1 Female str ess incontinence 45996803 N39.3 Delay when starting to pass urine 1923231 R39.11 Overactive urinary bladder 059379995 N32.81 [id number] Girish Ricks MD [facility] [address] [place] [address],it e [address] [place] [id number] 02/19/2023 14:45:08 02/19/2023 15:12:19 History of urinary tract infection 2866499281 107 Z87.440 Renal mass 307875802 N28 .89 Cyst of kidney 419741282 N28.1 Female str ess incontinence 89394387 N39.3 Delay when starting to pass urine 4647221 R39.11 Overactive urinary bladder 285488033 N32.81 Abdominal pain 03264015 R10.9 Nausea and vomiting 1693 1999 R11.2 Diarrhea 26659125 R19.7 [id number] Kwabena Rubio PA-C [facility] [address] [facility] [address] [place] [address] 03/27/2023 08:26:23 03/27/2023 09:09:52 Abdominal pain 23458344 R10.9 Diarrhea 40657026 R19.7 Colitis 62085316 K52.9 History of bypass of stomach 651928363 Z98.84 Dysphagia 33995803 R13.1 0 Health Concerns Section Related Observation LastModified by Organization Detai ls LastModified Time None Recorded Concern Status LastModified by Organization Details LastModified Time None Recorded Advance Directives Directive None Recorded Payers Encounter Date Sequence Insurance Name Policy Number Policy Giordano Covered Member ID Giordano Member ID Guarantor Name 02/21/2022 1 [place]ACEMENT [place]IONAL [place] [id number] Ambikaivan Pratt [id number] Ambikaivan Murillo 06/14/2022 1 [id number] Ambika Galo Pratt [id number] Ambika Lidia 07/26/2022 1 [place] [id number] Ambika Galo Pratt [id number] Ambika Lidia 02/19/2023 1 [id number] Ambikaivan Pratt [id number] Ambika Lidia 03/27/2023 1 [id number] Ambika Pratt [id number] Ambika Lidia Notes Date Note Type Note Provider Name and Address Organization Details Recorded Time 2 text/html 56-year-old female post excision of cyst of the right lower abdomen. Doing very well. Instructions were given and there is no evidence of cellulitis or any drainage. Alert oriented in no distress rest of exam negative. Rylie Buck MD [address] [place] [address], [place], [address], [place] - [place] & [place] 02/21/2022 10:57:09 3 text/html 55 yowf presents to clinic for evaluation of possible UTI. Patient reports she is been experiencing some pain with urination as well as some urinary urgency and frequency. Patient was last seen on 08/22/2021. At this time patient was seen related to a renal lesion seen on a CT scan from 08/01/2021. Patient was supposed to have a CT per renal mass protocol and follow-up thereafter however failed to do so. Patient reports she was in the hospital for bowel obstruction, hernia repair, and a broken leg and must have forgot to follow through with having it performed. She reports urinary stream is good. She denies any gross hematuria. Reports last UTI was last year. Previous :[ 55 yowf presents to clinic for evaluation of a renal mass. Patient reports she saw diagnosis of renal mass on her medical records [address] Corrales. Patient reports she has seen Dr. fajardo 4 years ago at [facility] related to renal mass and was going to have surgery however, Dr. Gonzáles left and saw his teachers' assistant. She reports after seeing his teachers' assistant they recommended leaving a long stating that it was very small. She reports she has been having yearly CT scans at [facility] per Dr. Gonzáles, states it has grown some. Patient went to [facility] ER on 08/01/2021 related to abdominal pain and was diagnosed with UTI and renal mass was seen on CT scan. CT scan on 08/01/2021 revealed a 1.6 cm soft tissue density exophytic lesion arising from the right kidney, a solid mass cannot be excluded and elective repeat CT scan of the abdomen per renal protocol should be performed.Patient states that she saw Dr. Ricks in 1996 related to kidney stones and had 2 surgeries performed. She reports October 2020 she went to the emergency room at [facility] related to kidney stone and was sent to [facility] and had surgical procedure performed per Dr. Menendez. She reports she was discharged from [facility] on Sunday and then had to be admitted back at [facility] on Sunday related to stone and had a 2nd procedure performed per Dr. Andrade. Reports April of 2021 she had another endoscopy procedure performed per Dr. Andrade related to another kidney stone.Reports urinary stream is good. Denies any gross hematuria. Reports she experiences occasional dysuria and bladder cramps. Lab work on 08/01/2021 revealed BUN 18 and creatinine 1.0. Urinalysis at this time was positive for protein 15, Uleu 25, white blood cell count 6-10. Urine culture revealed greater than 10 epithelial cells which could indicate contamination.] Maria Del Rosario Fritz, GEORGE, [address], [place], [address], [facility] - [facility] & [place] 06/14/2022 12:11:48 3 text/html The patient returns to clinic today for follow-up of a renal lesion seen on 08/01/2021 CT scan. The patient was to have followed up with a renal mass protocol CT scan but did not do so until 07/18/2022. CT scan shows a stable 1.6 x 1.8 cm exophytic hypodense right renal lesion consistent with a cyst. The patient has had a past history of painful urination along with urinary urgency frequency and difficulty with bladder emptying. Patient states that she must sit for a considerable amount of time and relax in order to empty her bladder. She will at times stand up after urinating and will leak considerable amount of urine. She also has incontinence at other times. See Below past medical history:History of UTI. Patient reports she is been experiencing some pain with urination as well as some urinary urgency and frequency. Patient was last seen on 08/22/2021. At this time patient was seen related to a renal lesion seen on a CT scan from 08/01/2021. Patient was supposed to have a CT per renal mass protocol and follow-up thereafter however failed to do so. Patient reports she was in the hospital for bowel obstruction, hernia repair, and a broken leg and must have forgot to follow through with having it performed. She reports urinary stream is good. She denies any gross hematuria. Reports last UTI was last year.Previous :[ 55 yowf presents to clinic for evaluation of a renal mass. Patient reports she saw diagnosis of renal mass on her medical records [address] Corrales. Patient reports she has seen Dr. fajardo 4 years ago at [facility] related to renal mass and was going to have surgery however, Dr. Gonzáles left and saw his teachers' assistant. She reports after seeing his teachers' assistant they recommended leaving a long stating that it was very small. She reports she has been having yearly CT scans at [facility] per Dr. Gonzáles, states it has grown some. Patient went to [facility] ER on 08/01/2021 related to abdominal pain and was diagnosed with UTI and renal mass was seen on CT scan. CT scan on 08/01/2021 revealed a 1.6 cm soft tissue density exophytic lesion arising from the right kidney, a solid mass cannot be excluded and elective repeat CT scan of the abdomen per renal protocol should be performed.Patient states that she saw Dr. Ricks in 1996 related to kidney stones and had 2 surgeries performed. She reports October 2020 she went to the emergency room at [facility] related to kidney stone and was sent to [facility] and had surgical procedure performed per Dr. Menendez. She reports she was discharged from [facility] on Sunday and then had to be admitted back at [facility] on Sunday related to stone and had a 2nd procedure performed per Dr. Andrade. Reports April of 2021 she had another endoscopy procedure performed per Dr. Andrade related to another kidney stone.Reports urinary stream is good. Denies any gross hematuria. Reports she experiences occasional dysuria and bladder cramps. Lab work on 08/01/2021 revealed BUN 18 and creatinine 1.0. Urinalysis at this time was positive for protein 15, Uleu 25, white blood cell count 6-10. Urine culture revealed greater than 10 epithelial cells which could indicate contamination.] Girish Ricks MD [address], [place], [address], [facility] - [place] - [place] & [place] 07/30/2022 21:31:48 3 text/html Patient returns to clinic today for follow-up of lower urinary tract symptoms manifesting with urinary urgency, frequency and difficulty with bladder emptying. She is here today for possible cystoscopy but states that since December she has had protracted diarrhea, nausea, vomiting and abdominal cramping. She tells me she is waiting to see a senior consulting manager but is being told that it will be May before she can do so. She tells me that her PCP recently saw calcium deposits in her urine. The patient tells me that her gastrointestinal symptoms are wearing her down and depressing her. Patient does have a small hypodense right renal lesion consistent with a cyst seen on previous imaging studies. She was last imaged by CT scan on 07/18/2022. See Below past medical history:The patient returns to clinic today for follow-up of a renal lesion seen on 08/01/2021 CT scan. The patient was to have followed up with a renal mass protocol CT scan but did not do so until 07/18/2022. CT scan shows a stable 1.6 x 1.8 cm exophytic hypodense right renal lesion consistent with a cyst. The patient has had a past history of painful urination along with urinary urgency frequency and difficulty with bladder emptying. Patient states that she must sit for a considerable amount of time and relax in order to empty her bladder. She will at times stand up after urinating and will leak considerable amount of urine. She also has incontinence at other times.See Below past medical history:History of UTI. Patient reports she is been experiencing some pain with urination as well as some urinary urgency and frequency. Patient was last seen on 08/22/2021. At this time patient was seen related to a renal lesion seen on a CT scan from 08/01/2021. Patient was supposed to have a CT per renal mass protocol and follow-up thereafter however failed to do so. Patient reports she was in the hospital for bowel obstruction, hernia repair, and a broken leg and must have forgot to follow through with having it performed. She reports urinary stream is good. She denies any gross hematuria. Reports last UTI was last year.Previous :[ 55 yowf presents to clinic for evaluation of a renal mass. Patient reports she saw diagnosis of renal mass on her medical records [address] Corrales. Patient reports she has seen Dr. fajardo 4 years ago at [facility] related to renal mass and was going to have surgery however, Dr. Gonzáles left and saw his teachers' assistant. She reports after seeing his teachers' assistant they recommended leaving a long stating that it was very small. She reports she has been having yearly CT scans at [facility] per Dr. Gonzáles, states it has grown some. Patient went to [facility] ER on 08/01/2021 related to abdominal pain and was diagnosed with UTI and renal mass was seen on CT scan. CT scan on 08/01/2021 revealed a 1.6 cm soft tissue density exophytic lesion arising from the right kidney, a solid mass cannot be excluded and elective repeat CT scan of the abdomen per renal protocol should be performed.Patient states that she saw Dr. Ricks in 1996 related to kidney stones and had 2 surgeries performed. She reports October 2020 she went to the emergency room at [facility] related to kidney stone and was sent to [facility] and had surgical procedure performed per Dr. Menendez. She reports she was discharged from [facility] on Sunday and then had to be admitted back at [facility] on Sunday related to stone and had a 2nd procedure performed per Dr. Andrade. Reports April of 2021 she had another endoscopy procedure performed per Dr. Andrade related to another kidney stone.Reports urinary stream is good. Denies any gross hematuria. Reports she experiences occasional dysuria and bladder cramps. Lab work on 08/01/2021 revealed BUN 18 and creatinine 1.0. Urinalysis at this time was positive for protein 15, Uleu 25, white blood cell count 6-10. Urine culture revealed greater than 10 epithelial cells which could indicate contamination.] Girish Ricks MD [address], [place], [address], [place] 02/19/2023 15:10:22 3 text/html Pleasant 57-year-old female with history of gastric bypass and remote cholecystectomy who was referred by Dr. Ricks for evaluation of abdominal pain and diarrhea. She reports symptoms have been present for the past few years and have become worse over the last several months. Pain is primarily right sided. She underwent CT in the ED on 12/15/22 that showed mild diffuse colitis. CT was repeated on 03/07/23 without evidence of acute process. She reports post-prandial fecal urgency and abdominal cramping. She denies melena or hematochezia. Additionally, she reports dysphagia to solids. She has GERD that is currently well managed on Pantoprazole twice daily. She is prescribed Skirizi for psoriasis. She reports a history of EGD and colonoscopy 3 years ago at [facility]. Kwabena Rubio PA-C [address], [place], [address], [place] 03/27/2023 09:18:58 OBGyn Episode No OBEpisode recorded.
--- OUTSIDE RECORDS SUMMARY | 2024-04-06 21:59 | XMS_ITS ---
Author Organization [facility] Address [address] [place] [address] Phone Care Team Providers Care Tax Appraiser Name Role Phone Dereje PORTILLO, Gilberto Godfrey Unavailable [phone] Plan of Treatment No Plan of Treatment Recorded Assessments Includes: Assessments for all patient encounters No Assessments Recorded Medical Equipment - Implanted Devices Includes: Current and historical Devices No Medical Equipment Recorded Medications Administered Includes: Administered Medications in patient's chart No Administered Medications Recorded Results Includes: Results from 04/06/2023 through 04/06/2024 No Results Recorded For Specified Dates History of Present Illness History of Present Illness not supported for this document type No History of Present Illness Recorded Social History No Social History Recorded - Smoking Status Unknown Medical History Includes: Medical History in patient's chart No Medical History Recorded Family History Includes: Family History in patient's chart No Family History Recorded Review of Systems Review of Systems not supported for this document type No Review of Systems Recorded Mental Status No Mental Status Recorded Functional Status No Functional Status Recorded Physical Exam Physical Exam not supported for this document type No Physical Exam Recorded Insurance Includes: Active Insurance Policies Plan Name Member ID Group # Subscriber Relationship Effect jhony Dates 1 - [facility] [id number] Neetu Pratt Self Clinical Notes Includes: Signed Clinical Notes starting from 04/20/2022 No Clinical Notes Recorded
--- OUTSIDE RECORDS SUMMARY | 2024-04-06 21:59 | XMS_ITS ---
Author Organization [facility] Address [address] [place] [address] Phone Care Team Providers Care Signals Intelligence Superintendent Name Role Phone Isiah Sheridan DPM Unavailable [phone] Salima Gonzáles DO Primary Care Provider [phone] Plan of Treatment Future Appointments Date Time Location Provi nurys Physician Specified 04/10/2024 8:30AM HUA Simmons [facility] SITKAANUEL Gordon PA-C Last Documented On 11:35AM ; [facility] Assessments Includes: Assessments for all patient encounters [...] Exam Recorded Insurance Includes: Active Insurance Policies No Insurance Coverage Recorded Guarantor Relationship Effective Dates Guarantor Ph one Neetu Murillo Self [id number] Clinical Notes Includes: Signed Clinical Notes starting from 04/20/2022 No Clinical Notes Recorded
--- OUTSIDE RECORDS SUMMARY | 2024-04-06 21:59 | XMS_ITS | Encounter Summary ---
Author Organization Healthcare Address [address] [place] [address] Care Team Providers Care Energy Economist Name Role Phone Salima Gonzáles DO Primary Care Provider [phone] Encounter Details Date Type Department Care Team (Latest Contact Info) Description 04/30/2021 Travel Social History Tobacco Use Types Packs/Day [...] PM EST documented as of this encounter Plan of Treatment Not on file documented as of this encounter Visit Diagnoses Not on filedocumented in this encounter Care Teams Energy Economist Relationship Specialty Start Date End Date Salima Gonzáles DO [facility] [place] [address] [place] [address] PCP - General 09/17/20 documented as of this encounter
--- OUTSIDE RECORDS SUMMARY | 2024-04-06 21:59 | XMS_ITS ---
Care Plan - [facility], [facility] Created on: April 07, 2024 Fadi Pratt Neetu Galo : 1965 Sex: Female Author Organization [facility] Address [address] [place] [phone] Phone Care Team Providers Care Logistic Manager Name Role Phone Dereje PORTILLO, Gilberto Godfrey Unavailable [phone]
--- OUTSIDE RECORDS SUMMARY | 2024-04-06 21:59 | XMS_ITS | Encounter Summary ---
Author Organization [facility] [place] [address] Care Team Providers Care Freight And Passenger Agent Name Role Phone Unavailable Primary Care Provider Unavailabl e Encounter Details Date Type Department Care Team (Late st Contact Info) Description 09/19/2008 4:59 AM EDT - 09/19/2008 7:03 AM EDT Hospital Encounter HST EPIC CON UNK GRT Bebeto Walsh MD [address] [place] [address] [facility] [place] [address] Social History Tobacco Use Types Packs/Day Years Used Date Smoking Tobacco: Never Assessed Comments Unknown Sex and Gender Information Value Date Recorded Sex Assigned at Not on file Legal Sex Female 7:49 PM EDT Gender Identity Not on file Sexual Orientation Not on file documented as of this encounter Plan of Treatment Scheduled Orders Name Type Priority Associated Diagnoses Order Schedule XR CHEST PORTABLE GC Imaging Routine Once for 1 Occurrences starting 07/15/2009 until 07/15/2009, 1 completed EK EKG REG GC Imaging Cardiology Routine Onc e for 1 Occurrences starting 07/15/2009 until 07/15/2009, 1 completed documented as of this encounter Procedures Procedure Name Priority Date/Time Associated Diagnosis Comments GC EK EKG REG Routine 09/19/2008 5:02 AM EDT GC XX CHEST PORTABLE Routine 09/19/2008 5:00 AM EDT documented in this encounter Results * EK EKG REG GC (09/19/2008 5:02 AM EDT) Anatomical Region Laterality Modality Other 09/19/2008 5:02 AM EDT Narrative 09/19/2008 4:36 PM EDT Sinus rhythm. Low QRS voltages in precordial leads Abnormal ECG ? Ring Packer- MANAV CASTRO ? Reading Physician- MANAV CASTRO ??MD ? Released Date Time- 09/19/081635 Procedure Note Sunil Manav Galo - 07/15/2009 Sinus rhythm. Low QRS voltages in precordial leads Abnormal ECG Ring Packer- MANAV CASTRO MD Reading Physician- MANAV CASTRO MD Released Date Time- 09/19/081635 Bebeto Walsh MD [facility] HISTORICAL Fi nal Result * XR CHEST PORTABLE GC (09/19/2008 5:00 AM EDT) Anatomical Region Laterality Modality Other 09/19/2008 5:00 AM EDT Narrative 09/19/2008 8:54 AM EDT Examinations of the chest Indications- ??Pain. History- Pain. Single frontal view of the chest demonstrates the heart size to be within normal limits. There is no infiltrate. Impression- No infiltrate. ? Ring Packer- SCARLET TENA ? Reading Physician- FORREST ALEXANDRA ??M.D. ? Released Date Time- 09/19/08 1138 Procedure Note Forrest Alexandra - 07/15/2009 Examinations of the chest Indications- Pain. History- Pain. Single frontal view of the chest demonstrates the heart size to be within normal limits. There is no infiltrate. Impression- No infiltrate. Ring Packer- SCARLET Byrd Physician- FORREST ALEXANDRA M.D. Released Date Time- 09/19/08 1138 Bebeto Walsh MD [facility] al Result documented in this encounter Visit Diagnoses Not on filedocumented in this encounter
--- OUTSIDE RECORDS SUMMARY | 2024-04-06 21:59 | XMS_ITS ---
Care Plan - [facility], [facility] Created on: April 07, 2024 Neetu Murillo : 1965 Sex: Female Author Organization [facility] Address [address] [place] [address] Phone Care Team Providers Care Flame Cutting Supervisor Name Role Phone Isiah Sheridan DPM Unavailable [phone] Salima Gonzáles DO Primary Care Provider [phone]
--- OUTSIDE RECORDS SUMMARY | 2024-04-06 21:59 | XMS_ITS | Referral Summary ---
Author Organization [facility] [place] [address] Care Team Providers Care Stereo Operator Name Role Phone Unavailable Primary Care Provider Unavailabl e Social History Tobacco Use Types Packs/Day Years Used Date Smoking Tobacco: Never Assessed Comments Unknown Sex and Gender Information Value Date Recorded Sex Assigned at Not on file Legal Sex Female 7:49 PM EDT Gender Identity Not on file Sexual Orientation Not on file Plan of Treatment Not on file
--- OUTSIDE RECORDS SUMMARY | 2024-04-06 21:59 | XMS_ITS | Clinical Summary ---
Author Organization [facility] [place] [address] Care Team Providers Care Kettle Skimmer Name Role Phone Unavailable Primary Care Provider [...] Maintenance Due Date Last Done Comments Annual Wellness Exam 1966 Hepatitis C Screening 1982 DTaP/TDaP/Td (1 - Tdap) 12/21/1983 Hepatitis B Vaccine (1 of 3 - 19+ 3-dose series) 12/21/1983 Cologuard 2009 Colon Cancer Screening 2009 Colonoscopy 2009 FIT 2009 Sigmoidoscopy 2009 Virtual Colonography 2009 Zoster (1 of 2) 2014 COVID-19 Vaccine ( - 2023-2 5 season) 2024 Influenza Vaccine (#1) 2024 Pneumococcal Vaccine 0-64 Aged Out No longer eligible based on patient's age to complete this topic
--- NOTE | 2024-04-06 22:02 | HMH.EDGENADL ---
Discharge Plan Disposition Patient Disposition: Admitted Condition: Good Clinical Impressions Clinical Impression: Intractable abdominal pain, Hypokalemia, UTI (urinary tract infection), Omental infarction Discharge ED Provider: Janae Arias General Adult HPI General Chief complaint: Abdominal Pain Stated complaint: back and abd pain Time Seen by Provider: 04/06/24 21:53 Mode of Arrival: Ambulatory Source of Information: Patient Limitations: No Limitations Description of Symptoms (Recalled from ER Triage Doc. by RN): Pt here with c/o R sided abd pain radiating into back ongoing issue however started back today x30 min ago. Sees GI tomorrow. Started abx yesterday for UTI History of Present Illness HPI narrative: This patient is a 58-year-old female with a history of obesity, diabetes, hypertension, hyperlipidemia, prior history of kidney stones presenting to the emergency department for evaluation with concern for right-sided abdominal pain radiating to her back. She states it is mostly in her right lower quadrant radiates up to her right flank. It has been going on for several days, and she was evaluated here yesterday for similar symptoms twice. She was diagnosed with urinary tract infection and sent home with antibiotics after reassuring CT scan and labs. She states she has been taking the antibiotics and the pain had been okay until about 30 minutes ago when it came back and is much more severe than it was previously. She does note that she has follow-up with GI plan for tomorrow, but the pain is severe and unbearable despite medications at home. Feels nausea but no vomiting. No change in bowel movements. Related Data Home Medications ?Medication ?Instructions ?Recorded ?Confirmed bupropion HCl 150 mg tablet,12 hr 150 mg PO BID Depression 08/11/18 02/19/24 sustained-release fluoxetine 40 mg capsule 40 mg PO BID Depression 08/11/18 02/19/24 levothyroxine 125 mcg tablet 125 mcg PO DAILYDM hypothyroidism 08/11/18 02/19/24 pregabalin 150 mg capsule 150 mg PO BID neuropathy 08/11/18 02/19/24 simvastatin 5 mg tablet 5 mg PO HS Cholesterol 08/11/18 02/19/24 loratadine 10 mg tablet 10 mg PO DAILY Allergy symptoms 01/08/20 02/19/24 montelukast 10 mg tablet 10 mg PO PM Allergy symptoms 10/10/20 02/19/24 albuterol sulfate 1.25 mg/3 mL 1.25 mg inhalation DAILYP PRN 04/08/21 02/19/24 solution for nebulization asthma / copd risankizumab-rzaa 150 mg/mL 150 mg SQ DIRECTED psoriasis 10/28/21 02/19/24 subcutaneous pen injector budesonide-formoterol HFA 80 inhalation 02/07/24 02/19/24 mcg-4.5 mcg/actuation aerosol inhaler cyclobenzaprine 10 mg tablet 10 mg PO PRN 02/07/24 02/19/24 flash glucose sensor (FreeStyle #1 ea 02/07/24 02/19/24 Niels 2 Sensor kit) fluticasone propionate 50 2 spray intranasal DAILY 02/07/24 02/19/24 mcg/actuation nasal spray,suspension furosemide 20 mg tablet 20 mg PO DAILY PRN 02/07/24 02/19/24 galcanezumab-gnlm 120 mg/mL 120 mg SQ 02/07/24 02/19/24 subcutaneous pen injector (Emgality Pen) potassium chloride 10 mEq 10 meq PO DAILY PRN 02/07/24 02/19/24 capsule,extended release rimegepant 75 mg disintegrating 75 mg PO PRN 02/07/24 02/19/24 tablet (Nurtec ODT) linaclotide 72 mcg capsule 72 mcg PO DAILY constipation 02/19/24 02/19/24 sitagliptin phosphate 100 mg tablet 50 mg PO DAILYDM Diabetes 02/19/24 02/19/24 Previous Rx's ?Medication ?Instructions ?Recorded albuterol sulfate 90 mcg/actuation 2 puffs inhalation Q6HP PRN 08/11/18 aerosol inhaler Shortness Of Breath Or Wheezing #1 inh diclofenac sodium 1 % topical gel 4 g topical QID PRN pain 30 days 01/27/21 #100 grams nystatin 100,000 unit/gram topical 1 applic topical BID 14 days #30 04/14/22 ointment grams albuterol sulfate 90 mcg/actuation 2 puff inhalation Q6H PRN 08/16/22 aerosol inhaler (Ventolin HFA) shortness of breath or wheezing #6.7 grams fluconazole 200 mg tablet 200 mg PO DAILY 1 day #1 tab 04/05/24 (Diflucan) phenazopyridine 100 mg tablet 100 mg PO BID 2 days #4 tabs 04/05/24 (Pyridium) sulfamethoxazole 400 2 tab PO BID 7 days #28 tabs 04/05/24 mg-trimethoprim 80 mg tablet Allergies Allergy/AdvReac Type Severity Reaction Status Date / Time cefdinir Allergy Severe Difficulty Verified 04/06/24 21:56 Breathing morphine (MORPHINE) Allergy Intermediate HALLUCINATI Verified 04/06/24 21:56 ONS levofloxacin (From Levaquin) Allergy Unknown Difficulty Verified 04/06/24 21:59 Breathing PFSH PFS Disclaimer: The information contained in this section may have been updated after the patient was seen, as this information can be updated by other users. Medical History History of femur fracture Ear noise/buzzing Hearing difficulty of both ears Urinary tract infection Kidney stone Migraine COPD (chronic obstructive pulmonary disease) Asthma Hyperlipidemia Anxiety Diabetes Hypertension Depression Surgical History History of gastric bypass History of knee replacement History of tubal ligation History of tonsillectomy History of hysterectomy History of cholecystectomy History of section Social History Smoking Status: Current every day smoker tobacco type: cigarettes packs per day: 0 and e-cigarettes second hand exposure: No alcohol intake: never substance use type: denies use current occupational status: employed and disabled household members: family housing: house current occupation: [employer] current occupational exposures/hazards: No caffeine: Yes Other Medical History Have you received the Flu Vaccine for this season: No Have you received the Pneumonia Vaccine: No ROS Obtained: Yes All systems reviewed & no additional complaints except as documented Physical Exam General General appearance: alert and anxious Comment: Anxious appearing, tearful Head Head exam: atraumatic and normocephalic Eye Eye exam: Present normal appearance, PERRL and EOMI ENT ENT exam: Present normal exam, normal oropharynx, mucous membranes moist and normal external ear exam Neck Neck exam: Present normal inspection, full ROM and trachea midline; Absent tenderness Chest Chest inspection: Present normal inspection and symmetric chest wall rise; Absent tenderness Respiratory Respiratory exam: Present normal lung sounds bilaterally; Absent respiratory distress, wheezes, stridor or accessory muscle use Cardiovascular Cardiovascular exam: Present regular rate and normal rhythm Abdominal Exam Abdominal exam: Present soft and tenderness (Right lower quadrant); Absent distention, guarding, rebound or rigidity Extremities Exam Extremities exam: Present normal inspection, full ROM and normal capillary refill; Absent tenderness or edema Back Exam Back exam: Present full ROM and CVA tenderness (R) Neurological Exam Neurological exam: Present alert, oriented X3, CN II-XII intact and normal gait; Absent motor sensory deficit Psychiatric Psychiatric exam: Present anxious Skin Skin exam: Present warm and dry Medical Decision Making Medical Records Medical records reviewed: Yes I reviewed the patient's medical records. Screening: Per USPSTF and CDC recommendations, given the prevalence of disease in our region, it is our hospital?s policy to screen for HIV and viral Hepatitis for all patients aged 18 and over and those with ongoing risk factors. Aurelio Inquiry Pt receiving controlled substance: No Vital Signs: 04/06/24 21:44 04/06/24 21:55 Temperature 97.6 F Temperature Source Oral Pulse Rate 75 Pulse Rate [Apical] 89 Respiratory Rate 20 16 Blood Pressure 121/89 Blood Pressure [Right Arm] 158/98 H Blood Pressure Mean [Right Arm] 118 02 Sat by Pulse Oximetry 98 97 Oxygen Delivery Method Room Air Room Air Lab Data Lab results reviewed: Yes I reviewed the patient's lab results. Lab Results 04/06/24 22:19: WBC 9.4, RBC 4.30, Hgb 12.8, Hct 37.8, MCV 87.8, MCH 29.9, MCHC 34.0, RDW 13.6, Plt Count 301, MPV 7.6, Neut % (Auto) 64.9, Lymph % (Auto) 29.5, Ward % (Auto) 4.4, Eos % (Auto) 0.6, Baso % (Auto) 0.7, Neut # (Auto) 6.1, Lymph # (Auto) 2.8, Ward # (Auto) 0.4, Eos # (Auto) 0.1, Baso # (Auto) 0.1, Sodium 140, Potassium 3.3 L, Chloride 109 H, Carbon Dioxide 25, Anion Gap 9.3, BUN 14, Creatinine 0.90, Estimated Creat Clear 51, Estimated GFR 64, Est GFR ( Amer) 78, Glucose 126 H, Calcium 8.9, Total Bilirubin 0.7, AST 30, ALT 29, Alkaline Phosphatase 77, Total Protein 6.6, Albumin 3.8, Globulin 2.8, Albumin/Globulin Ratio 1.4, Lipase 62 04/06/24 22:46: Lactate 1.8 04/06/24 22:49: Urine Color Dark yellow, Urine Appearance Slightly cloudy, Urine pH 6.0, Ur Specific [place] >= 1.030, Urine Protein Negative, Urine Glucose (UA) Negative, Urine Ketones Trace, Urine Blood Negative, Urine Nitrate Negative, Urine Bilirubin Negative, Urine Urobilinogen 1.0, Ur Leukocyte Esterase 1+ A, Urine RBC None, Urine WBC 10-20, Ur Squamous Epith Cells Occasional, Urine Bacteria Trace 04/06/24 22:19 04/06/24 22:19 Orders (Tests/Meds): ED MEDICATIONS Discontinued Medications Generic Name Dose Route Start Last Admin Trade Name Freq PRN Reason Stop Dose Admin Ketorolac Tromethamine 15 mg 04/06/24 21:59 04/06/24 22:16 Ketorolac 30mg/Ml Vial IV 04/06/24 22:00 15 mg ONCE ONE Administration Ondansetron HCl 4 mg 04/06/24 21:59 04/06/24 22:17 Ondansetron 4mg/2ml Vial IV 04/06/24 22:00 4 mg ONCE ONE Administration Oxycodone HCl 5 mg 04/06/24 22:01 04/06/24 22:17 Oxycodone 5mg Immediate Release Tablet PO 04/06/24 22:02 5 mg ONCE ONE Administration Potassium Chloride 40 meq 04/06/24 22:43 04/06/24 22:52 Potassium Chloride 20meq Tab PO 04/06/24 22:44 40 meq ONCE ONE Administration ORDERS Category Date Time Status Complete Blood Count Auto Diff Stat Lab 04/06/24 22:19 Completed Comprehensive Metabolic Panel Stat Lab 04/06/24 22:19 Completed Lactic Acid Stat Lab 04/06/24 22:46 Completed Lipase Stat Lab 04/06/24 22:19 Completed UA [Urinalysis and Microscopic] Stat Lab 04/06/24 22:49 Completed Urine Culture Stat Micro 04/06/24 22:49 Received Medical Decision Narrative: In summary, this patient is a 58-year-old female presenting to the Emergency Department for evaluation of right lower quadrant and right flank pain. Differential diagnoses considered include but are not limited to ureterolithiasis, pyelonephritis, colitis, constipation. Ruling out the most morbid conditions drove assessment. It should be noted patient's history includes obesity, hypertension, hyperlipidemia, diabetes which may or may not be at goal therapy. This complicates all aspects of care by increasing patient's risk for morbidity. I reviewed patient's past medical records and noted evaluation twice yesterday for similar symptoms as well as recent CT scan.. On exam, the patient is very anxious appearing and tearful. She has right lower quadrant tenderness and right CVA tenderness but abdominal pain is otherwise benign with no rebound or guarding. She is afebrile with reassuring vital signs on cardiac telemetry. workup included CBC, CMP, lipase, lactic acid, urinalysis. She was given IV Zofran, Toradol, oral oxycodone for symptomatic improvement of pain. Labs are overall very reassuring with no significant leukocytosis, elevation lactic acid, or other concerns. Urine still demonstrates white blood cells but no other acute concerns. She does have mild hypokalemia for which oral replacement was ordered. Ultimately, this is the patient's third visit in 48 hours for abdominal pain, so I feel she would benefit from admission for continued monitoring. I considered obtaining repeat CT scan, however I do not feel that is indicated as likely would not record changer assembler with no changes in labs or other changes in symptomology. Patient was admitted in stable condition. Critical Care Critical Care Time Critical Care Time: No
[2024-04-06] MEDS: KETOROLAC 30MG/ML VIAL 15 MG IV (22:16)
[2024-04-06] MEDS: ONDANSETRON 4MG/2ML VIAL 4 MG IV (22:17)
[2024-04-06] MEDS: OXYCODONE 5MG IMMEDIATE RELEASE TABLET 5 MG PO (22:17)
[2024-04-06 22:27] LABS: Basophils # 0.1 K/mm3 (0-0.2); Basophils % 0.7 % (0.1-2.0); Eosinophils # 0.1 K/mm3 (0.0-0.4); Eosinophils % 0.6 % (0.1-12.0); Hematocrit 37.8 % (37.0-47.0); Hemoglobin 12.8 g/dL (12.2-16.2); Lymphocytes # 2.8 K/mm3 (0.7-4.5); Lymphocytes % 29.5 % (10-50); Mean Corpuscular Hemoglobin 29.9 pg (27.0-31.2); Mean Corpuscular Volume 87.8 fl (81-99); Mean Platelet Volume 7.6 fl (7.4-10.4); Monocytes # 0.4 K/mm3 (0.1-1.0); Monocytes % 4.4 % (1.7-9.3); Neutrophils # 6.1 K/mm3 (1.8-7.8); Neutrophils % 64.9 % (37.0-80.0); Platelet Count 301 K/mm3 (142-424); Red Cell Distribution Width 13.6 % (11.5-17.5); White Blood Count 9.4 K/mm3 (4.8-10.8)
[2024-04-06 22:38] LABS: Albumin Level 3.8 g/dl (3.5-5.0); Chloride 109 mmol/L (98-107); Potassium 3.3 mmoL/L (3.5-5.1); Sodium 140 mmol/L (136-145)
[2024-04-06 22:40] LABS: Alanine Aminotransferase 29 U/L (12-78); Anion Gap 9.3 mEq/L (5-15); Aspartate Amino Transferase 30 U/L (14-36); Blood Urea Nitrogen 14 mg/dl (7-17); Carbon Dioxide 25 mmol/L (22.0-30.0); Creatinine Clearance Estimated 51 mL/min (50-200); Estimated Glomerular Filt Rate 64 ml/min (>60); GFR (African American) 78 ML/MIN (>60)
[2024-04-06 22:41] LABS: Albumin/Globulin Ratio 1.4 (1.1-1.8); Alkaline Phosphatase 77 U/L (38-126); Bilirubin,Total 0.7 mg/dl (0.2-1.3); Calcium 8.9 mg/dl (8.4-10.2); Globulin 2.8 g/dL (1.3-3.2); Glucose 126 mg/dl (74-100); Lipase 62 U/L (23-300); Total Protein,Serum 6.6 g/dl (6.3-8.2)
[2024-04-06] MEDS: POTASSIUM CHLORIDE 20MEQ TAB 40 MEQ PO (22:52)
[2024-04-06 22:54] LABS: Microscopic, Urine URINE MICROSCOPIC (MICROSCOPIC)
[2024-04-06 22:56] LABS: Appearance,Urine Slightly Cloudy (Clear); Bilirubin,Urine Negative (Negative); Blood, Urine Negative (Negative); Color,Urine Dark Yellow (Yellow); Glucose,Urine (UA) Negative (Negative); Ketones,Urine TRACE (Negative); Leukocyte Esterase,Urine 1+ (Negative); Nitrate,Urine Negative (Negative); Protein,Urine Negative (Negative); Specific Gravity, Urine >= 1.030 (1.005-1.030)
[2024-04-06 23:03] LABS: Lactic Acid 1.8 mmol/L (0.7-2.1)
[2024-04-06 23:09] LABS: Bacteria,Urine Trace /lpf; Squamous Epithelial Cell,Urine Occasional #/hpf (0-5)
--- OUTSIDE RECORDS SUMMARY | 2024-04-06 23:27 | XMS_ITS | Encounter Summary ---
Author Organization [facility] Address [address] [place] [address] Care Team Providers Care Drivers' Cash Clerk Name Role Phone Salima Gonzáles DO Primary Care Provider [phone] Reason for Referral * Cardiac Stress Testing (Routine) - Closed Specialty Diagnoses / Procedures Referred By Josep banuelos Referred To Contact Diagnoses Precordial chest pain Shortness of breath Procedures Stress Test With Myocardial Perfusion One Day Alea Juarez APRN [address] [place] [address] Phone: tel: fax: [address] [place] [address] Phone: tel: Referral ID Status Reason Start Date Expiration Date Visits Re quested Visits Authorized [id number] Closed 12/13/2022 12/13/2023 4 1 * Diagnostic Imaging (Routine) - Closed Specialty Diagnoses / Procedures Referred By Josep banuelos Referred To Contact Diagnoses Precordial chest pain Shortness of breath Palpitations Procedures Adult Transthoracic Echo Complete W/ Cont if Necessary Per Protocol Alea Juarez APRN [address] [place] [address] Phone: tel: fax: [facility] [address] [place] [address] Phone: tel: fax: Referral ID Status Reason Start Date Expiration Date Visits Re quested Visits Authorized [id number] Closed 12/13/2022 12/13/2023 1 1 Reason for Visit * Reason Comments Establish Care Palpitations * Consultation (Routine) - Closed Specialty Diagnoses / Procedures Referred By Contac t Referred To Contact Cardiology Diagnoses Premature beats Palpitations Salima Gonzáles, DO [address] [place] [address] Phone: tel: fax: [facility] [address] [place] [address] Phone: tel: fax: Referral ID Status Reason Start Date Expiration Date Visits Re quested Visits Authorized [id number] Closed 11/29/2022 11/29/2023 1 1 Encounter Details Date Type Department Care Team (Late st Contact Info) Description 12/13/2022 1:00 PM EDT Office Visit [facility] [address] [place] [address] Alea Juarez APRN [address] [place] [address] Palpitations (Primary Dx); Shortness of breath; [...] patient to restart PAP therapy and contact [employer] to find a better mask that [...] PCP to get better control of anxiety. 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 Estimated body mass index [...] patient to restart PAP therapy and contact [employer] to finda better mask that does [...] Palpitations documented in this encounter Care Teams Drivers' Cash Clerk Relationship Specialty Start Date End Date Salima Gonzáles DO [facility] [place] [address] PCP - General Family Medicine 02/21/17 documented as of this encounter
--- OUTSIDE RECORDS SUMMARY | 2024-04-06 23:27 | XMS_ITS | Encounter Summary ---
Author Organization [facility] Address [address] [place] [address] Care Team Providers Care Parts Facilitator Name Role Phone Eliecer Salima Radha Primary Care Provider [phone] Reason for Referral * Cardiac (Routine) - Closed Specialty Diagnoses / Procedures Referred By Josep t Referred To Contact Diagnoses Palpitations Procedures Holter Monitor - 72 Hour Up To 15 Days Alea Juarez APRN [address] [place] [address] Phone: tel: fax: [facility] [address] [place] [address] Phone: tel: Referral ID Status Reason Start Date Expiration Date Visits Re quested Visits Authorized [id number] Closed 08/01/2023 07/31/2024 1 1 Reason for Visit * Reason Comments Shortness of Breath Pt last seen 023 with abnormal stress. Continue to have c/o SOA.. Encounter Details Date Type Department Care Team (Late st Contact Info) Description 08/01/2023 9:[address] AM EDT Office Visit [facility] [address] [place] [address] [...] mild COPD. She has not seen a aeronautical project engineer recently. Uses albuterol nebulizers daily. She is [...] moderate amount of total coronary plaque present. 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 Total beats: [id number]. Average HR: 69. Min HR: 40. Max HR: 127. Study Impressions A relatively benign monitor study. Rare nonsustained SVT. Patient triggers corresponded with supraventricular couplets or PACs. These were overall less than 1%. No life-threatening arrhythmias or pauses. See raw data for further information. Alea Juarez APRN [facility] Final Result * ECG 12-LEAD (08/01/2023) Narrative [...] of mild COPD. She hasnot seen a aeronautical project engineer recently. Uses albuterol nebulizers daily. Sheis not [...] moderate amount of total coronary plaque present. 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
--- OUTSIDE RECORDS SUMMARY | 2024-04-06 23:27 | XMS_ITS | Encounter Summary ---
[facility] Address [address] [place] [id number] Care Team Providers Care Plasma Specialist Name Role Phone Salima Gonzáles Primary Care Provider [phone] Reason for Visit * Reason Comments Flank Pain * Auth/Cert (Routine) Specialty Diagnoses / Procedures Referred By Contac t Referred To Contact Diagnoses Back pain Referral ID Status Reason Start Date Expiration Date Visits Re quested Visits Authorized [id number] 1 1 Encounter Details Date Type Department Care Team (Late st Contact Info) Description 01/26/2024 12:25 AM EDT - 01/27/2024 2:41 PM EDT Emergency [address] [place] [address] Kris Bird MD [address] [place] [address] Ambika Arreaga MD [address] [address] Pebbles Beauchamp DO [address] [address] Nabil Guerrero MD [address] [address] Hypotension due to hypovolemia (Primary Dx); Pyelonephritis [...] this encounter Discharge Summaries * Jen Ojeda, NURSE EMERGENCY ROOM - 01/27/2024 12:16 PM EDT Images from the original note were not included. [facility] Medicine Services DISCHARGE SUMMARY Patient Name: Neetu [...] Date/Time Blood Culture - Blood, Arm, Right [[id number]] (Normal) Collected: 01/26/24 0200 Lab Status: Preliminary result Specimen: Blood from Arm, Right Updated: 01/27/24 0700 Blood Culture No growth at 24 hours Blood Culture - Blood, Arm, Left [[id number]] (Normal) Collected: 01/26/24 0150 Lab Status: Preliminary result Specimen: Blood from Arm, Left Updated: 01/27/24 0700 Blood Culture No growth at 24 hours Urine Culture - Urine, Urine, Clean Catch [[id number]] Collected: 01/25/24 2353 Lab Status: Final result [...] The right kidney is 8.9 cm in ljff-it-ffoh length and there is no hydronephrosis. There is a small exophytic cyst measuring about 2 cm. The pancreas is incompletely seen secondary to shadowing from overlying bowel gas. Impression: Normal common duct. Electronically Signed: Junior Boo MD 01/26/2024 5:13 AM EDT Workstation ID: [id number] Abdomen Pelvis Without Contrast Result Date: [...] MD 01/26/2024 1:44 AM EDT Workstation ID: [id number] Results for orders placed in visit on [...] 2 Times Daily FreeStyle Niels [address] [facility] USE DIRECTED FOR CONTINUOUS GLUCOSE MONITORING furosemide [...] minutes on this discharge activity which included: qzwe-sv-arsqgtkyughqi with the patient, reviewing the data in [...] included. Acute Care - Occupational Therapy Discharge [facility] Patient Name: Neetu Doherty : 1965 Today's [...] Bed Mobility Bed Mobility supine-sit - Supine-Sit [place] (Bed Mobility) modified independence - Assistive Device (Bed Mobility) head of bed elevated -[facility] Name 01/27/24945 Transfers Transfers sit-stand transfer -[facility] Name 01/27/24945 Sit-Stand Transfer Sit-Stand [place] (Transfers) standby assist - Assistive Device (Sit-Stand Transfers) other (see comments) none - Row Name 01/27/24945 Functional Mobility Functional Mobility- Ind. Level contact guard assist - Functional Mobility-Distance (Feet) -- in hallway - Functional Mobility- Comment Slight unsteadiness noted with mobility-defer to PT -[facility] Name 01/27/24945 Activities of Daily Living BADL Assessment/Intervention lower body dressing -[facility] 01/27/24945 Lower Body Dressing Assessment/Training [place] Level (Lower Body Dressing) don;socks;independent - Position (Lower Body Dressing) long sitting - User Gottlieb (r) = Recorded By, (t) = Taken By, (c) = Cosigned By Initials Name Provider Type Jacque Thorpe, OT Occupational Therapist Obj/Interventions Row Name 01/27/24946 Sensory Assessment (Somatosensory) Sensory Assessment (Somatosensory) UE sensation intact -[facility] Name 01/27/24946 Range of Motion Comprehensive General Range of Motion bilateral upper extremity ROM WFL -[facility] Name 01/27/24946 Strength Comprehensive (MMT) General Manual Muscle Testing (MMT) Assessment no strength deficits identified -[facility] Name 01/27/24946 Balance Balance Assessment sitting static [...] Standing -[facility] Post Patient Position Sitting -[facility] Name 01/27/24946 Positioning and Restraints [...] Nurse Occupational Therapy Education Title: PT OT RADIO SURVEY WORKER Therapies (In Progress) Topic: Occupational Therapy (In [...] Description Service Date Service Provider Modifiers Qty [id number] OT EVAL LOW COMPLEXITY 3 01/27/2024 Jacque [...] Care Everywhere. * Amoxicillin; Clavulanic Acid Tablets ([place]) * Urinary Tract Infection Adult ([place]) * Acute Back Pain Adult ([place]) documented in this encounter Medications at Time [...] Times a Day. Continuous Blood Gluc Sensor (iChartsStyle Niels [address] [facility] USE DIRECTED FOR CONTINUOUS GLUCOSE MONITORING 01/23/2023 [...] from the original note were not included. [facility] Medicine Services ADMISSION FOLLOW-UP NOTE Patient admitted after midnight, H&P by my partner performed earlier on today's date reviewed. Interim findings, labs, and charting also reviewed. [facility] Problem List has been managed and [...] from the original note were not included. [facility] Medicine Services HISTORY AND PHYSICAL Patient Name: [...] prior kidney stones. She was diagnosed at [facility] 2 weeks ago with UTI in setting of these symptoms, put on levaquin at that time with no improvement in symptoms. Went to [facility] ER last week with back pain treated [...] information reviewed. Diclofenac Sodium, EPINEPHrine, FLUoxetine, FreeStyle Niels 2 Sensor, Rimegepant Sulfate, Risankizumab-rzaa, SITagliptin, albuterol, [...] Urinalysis Squamous Epithelial Cells, UA 3-6 Specific [place], UA 1.013 Ketones, UA Negative Blood, UA [...] MD 01/26/2024 1:44 AM EDT Workstation ID: [id number] Results for orders placed in visit on [...] Taken 01/26/2024 1600 by Abshear, Chai N, vocal music teacher Interventions: medication offered but refused Taken 01/26/2024 1400 by Chai Martinez, vocal music teacher Interventions: see MAR Taken 01/26/2024 1003 by Chai Martinez, vocal music teacher Interventions: see MAR Goal Outcome Evaluation: Pain [...] #: 14 ED Nurse Phone Extension - [phone] or may call [phone]. HPI: Chief Complaint Patient presents with Flank [...] Procedure Abnormality Status --------- ------ CBC Auto Differential[[id number]] Abnormal Final result Please view results for [...] 0407) Last NIH score: Dysphagia screening results: [place]xton Coma Scale: No data recorded CIWA: Restraint [...] Mobility Row Name 01/27/24901 Sit-Stand Transfer Sit-Stand [place] (Transfers) standby assist -NS Row Name 01/27/24901 Gait/Stairs (Locomotion) [place] Level (Gait) contact guard -NS Distance in [...] Gabby Dunham PT Physical Therapist Outcome Measures [facility] Name 01/27/2490101/27/24 08 How much [...] 8 --> Walked 250 feet or more -[place] Row Name 01/27/24 0949 01/27/24901 Functional Assessment Outcome Measure Options AM-PAC 6 Clicks Daily Activity (OT) - AM-PAC 6 Clicks Basic Mobility (PT)-PATRICE User Gottlieb (r) = Recorded By, (t) = Taken By, (c) = Cosigned By Initials Name Provider Type Jacque Thorpe, OT Occupational Therapist Chai Angel, RN Registered Nurse Gabby Dunham PT Physical Therapist Physical Therapy Education Title: PT OT RADIO SURVEY WORKER Therapies (In Progress) Topic: Physical Therapy (In [...] Re-Cert Due Date 02/05/24 -NS Timed Charges 19215 - Gait Training Minutes 13 -NS Total Minutes Timed Charges Total Minutes 13 -NS Total Minutes 13 -NS User Gottlieb (r) = Recorded By, (t) = Taken By, (c) = Cosigned By Initials Name Provider Type Gabby Dunham, PT Physical Therapist Therapy Charges for Today Code Description Service Date Service Provider Modifiers Qty [id number] HC GAIT TRAINING EA 15 MIN 01/27/2024 [...] Name 01/26/24 1526 Bed Mobility Bed Mobility kljtal-rfx-[id number] -AC Rtdhks-Isy-Nbgrrl [place] (Bed Mobility) standby assist;verbal cues;nonverbal cues (demo/gesture) - Assistive Device (Bed Mobility) head of bed elevated -AC Comment, (Bed Mobility) Pt educated on log roll technique in order to decrease LBP - Row Name 01/26/24 1526 Sit-Stand Transfer Sit-Stand [place] (Transfers) standby assist -AC Assistive Device (Sit-Stand Transfers) other (see comments) no AD -AC Row Name 01/26/24 1526 Gait/Stairs (Locomotion) [place] Level (Gait) contact guard;verbal cues;nonverbal cues (demo/gesture) [...] PT) sit to supine/supine to sit -AC [place] Level/Cues Needed (Bed Mobility Goal 1, PT) independent -AC Time Frame (Bed Mobility Goal 1, PT) short term goal (STG);5 days -AC Row Name 01/26/24 153 Transfer Goal 1 (PT) Activity/Assistive Device (Transfer Goal 1, PT) gfl-ms-pfqge/pndzd-zo-epo -AC [place] Level/Cues Needed (Transfer Goal 1, PT) independent -AC Time Frame (Transfer Goal 1, PT) ad terminal makeup operator goal (LTG);10 days -AC Row Name 01/26/24 153 Gait Training Goal 1 (PT) Activity/Assistive Device (Gait Training Goal 1, PT) gait (walking locomotion);decrease fall risk;improve balance and speed;increase endurance/gait distance;increase energy conservation -AC [place] Level (Gait Training Goal 1, PT) independent -AC Distance (Gait Training Goal 1, PT) 200 -AC Time Frame (Gait Training Goal 1, PT) ad terminal makeup operator goal (LTG);10 days -AC Row Name 01/26/24 [...] Therapist Physical Therapy Education Title: PT OT RADIO SURVEY WORKER Therapies (In Progress) Topic: Physical Therapy (In [...] Minutes- PT 10 minute(s) -AC Timed Charges 85490 - Gait Training Minutes 10 -AC Untimed [...] Description Service Date Service Provider Modifiers Qty [id number] HC GAIT TRAINING EA 15 MIN 01/26/2024 Irene Marroquin, PT GP 1 [id number] HC PT EVAL LOW COMPLEXITY 3 01/26/2024 [...] URINE CULTURE STAT 01/25/2024 11:53 PM EDT NM CRITICAL CARE ILL/INJURED PATIENT INIT 30-74 MIN Routine 01/25/2024 11:51 PM EDT documented in this encounter Results * POC Glucose Once (01/27/2024 10:48 AM EDT) Glucose 98 70 - 130 mg/dL 01/27/2024 10:52 AM EDT [facility] Blood 01/27/2024 10:4 8 AM EDT 01/27/2024 10:52 AM EDT Nabil Guerrero MD POINT OF CARE TEST ORDERABLES Final Result [facility]
[address] [place] [address], * (ABNORMAL) Comprehensive Metabolic Panel (01/27/2024 6:05 AM EDT) Glucose 76 65 - 99 mg/dL 01/27/2024 7:02 AM EDT [facility] BUN 18 6 - 20 mg/dL 01/27/2024 7:02 AM EDT [facility] Creatinine 0.98 0.57 - 1.00 mg/dL 01/27/2024 7:02 AM EDT [facility] Sodium 143 136 - 145 mmol/L 01/27/2024 7:02 AM EDT [facility] Potassium 4.3 3.5 - 5.2 mmol/L 01/27/2024 7:02 AM EDT [facility] Chloride 107 98 - 107 mmol/L 01/27/2024 7:02 AM EDT [facility] CO2 29.0 22.0 - 29.0 mmol/L 01/27/2024 7:02 AM EDT [facility] Calcium 8.4(L) 8.6 - 10.5 mg/dL 01/27/2024 7:02 AM EDT [facility] Total Protein 5.3(L) 6.0 - 8.5 g/dL 01/27/2024 7:02 AM EDT [facility] Albumin 3.4(L) 3.5 - 5.2 g/dL 01/27/2024 7:02 AM EDT [facility] ALT (SGPT) 32 1 - 33 U/L 01/27/2024 7:02 AM EDT [facility] AST (SGOT) 22 1 - 32 U/L 01/27/2024 7:02 AM EDT [facility] Alkaline Phosphatase 112 39 - 117 U/L 01/27/2024 7:02 AM EDT [facility] Total Bilirubin 0.4 0.0 - 1.2 mg/dL 01/27/2024 7:02 AM EDT [facility] Globulin 1.9 gm/dL 01/27/2024 7:02 AM EDT [facility] Comment:Calculated Result A/G Ratio 1.8 g/dL 01/27/2024 7:02 AM EDT [facility] BUN/Creatinine Ratio 18.4 7.0 - 25.0 01/27/2024 7:02 AM EDT [facility] Anion Gap 7.0 5.0 - 15.0 mmol/L 01/27/2024 7:02 AM EDT [facility] eGFR 66.6 >60.0 mL/min/1.7 3 01/27/2024 7:02 AM EDT [facility] Blood Venipuncture / Unknown 01/27/2024 6:05 AM EDT 01/27/2024 6:17 AM EDT Narrative [facility] - 01/27/2024 7:02 AM EDT GFR Normal >60 Chronic Kidney Disease <60 Kidney Failure <15 Ambika Arreaga MD LAB BLOOD ORDERABLES Final Resul t [facility]
[address] [place] [address], * POC Glucose Once (01/26/2024 10:26 PM EDT) Glucose 85 70 - 130 mg/dL 01/26/2024 10:28 PM EDT [facility] Blood 01/26/2024 10:2 6 PM EDT 01/26/2024 10:28 PM EDT Pebbles Beauchamp DO POINT OF CARE TEST ORD ERABLES Final Result Performing Organization Address City/[facility]/ZIP Co de Phone Number [facility]
[address] [place] [address], [place] [phone] * POC Glucose Once (01/26/2024 10:21 AM EDT) Glucose 93 70 - 130 mg/dL 01/26/2024 10:21 AM EDT [facility] Blood 01/26/2024 10:2 1 AM EDT 01/26/2024 10:21 AM EDT Pebbles Beauchamp DO POINT OF CARE TEST ORD ERABLES Final Result Performing Organization Address [facility] Co de Phone Number [facility]
[address] [place] [address], [place] [phone] * US Liver (01/26/2024 4:58 AM EDT) Anatomical Region Laterality Modality Body, Abdomen Ultrasound 01/26/2024 5:09 AM EDT Impressions 01/26/2024 5:13 AM EDT Impression: Normal common duct. Electronically Signed: Junior Boo MD 01/26/2024 5:13 AM EDT Workstation ID: [id number] Narrative 01/26/2024 5:13 AM EDT US LIVER [...] The right kidney is 8.9 cm in airh-fh-twny length and there is no hydronephrosis. There [...] normal.The right kidney is 8.9 cm in fuul-bz-jazw length and there is nohydronephrosis. There is a small exophytic cyst measuring about 2 cm. The pancreas is incompletely seen secondary toshadowing from overlying bowel gas. IMPRESSION: Impression: Normal common duct. Electronically Signed: Junior Boo MD 01/26/2024 5:13 AM EDT Workstation ID: [id number] us Ambika Arreaga MD IM US ORDERABLES Final Result * Blood Culture - Blood, Arm, Right (01/26/2024 2:00 AM EDT) Blood Culture No growth at 5 days 01/31/2024 7:00 AM EDT [facility] Blood Structure of right upper limb / Unknown Venipuncture / Unknown 01/26/2024 2:00 AM EDT 01/26/2024 6:51 AM EDT Kris Bird MD MICROBIOLOGY - GENERAL ORDERABLE S Final Result [facility]
[address] [place] [address], * Blood Culture - Blood, Arm, Left (01/26/2024 1:50 AM EDT) Blood Culture No growth at 5 days 01/31/2024 7:00 AM EDT [facility] Blood Structure of left upper limb / Unknown Venipuncture / Unknown 01/26/2024 1:50 AM EDT 01/26/2024 6:52 AM EDT us Kris Bird MD MICROBIOLOGY - GENERAL ORDERABLE S Final Result [facility]
[address] [place] [id number], * CT Abdomen Pelvis Without Contrast (01/26/2024 1:01 AM EDT) Anatomical Region Laterality Modality Abdomen, Pelvis N/A Computed Tomogra phy 01/26/2024 1:38 AM EDT Impressions 01/26/2024 1:44 AM EDT Impression: 1.Faint left lower lobe nodular airspace opacities suggestive of infectious process. 2.No acute abdominal or pelvic abnormality. 3.Bilateral fat-containing inguinal hernias. Electronically Signed: Junior Boo MD 01/26/2024 1:44 AM EDT Workstation ID: [id number] Narrative 01/26/2024 1:[address] ABDOMEN [...] MD 01/26/2024 1:44 AM EDT Workstation ID: [id number] us Kris Bird MD IM CT ORDERABLES Final Result * CK (01/26/2024 12:38 AM EDT) Pathologist [facility] Creatine Kinase 70 20 - 180 U/L 01/26/2024 4:25 AM EDT [facility] Blood Structure of right upper limb / Unknown Venipuncture / Unknown 01/26/2024 12:38 AM EDT 01/26/2024 1:09 AM EDT us Ambika Arreaga MD LAB BLOOD ORDERABLES Final Resul t [facility]
[address] [place] [address], * (ABNORMAL) CBC Auto Differential (01/26/2024 12:38 AM EDT) Pathologist [facility] WBC 11.38(H) 3.40 - 10.80 10*3/mm3 01/26/2024 1:14 AM EDT [facility] RBC 3.71(L) 3.77 - 5.28 10*6/mm3 01/26/2024 1:14 AM EDT [facility] Hemoglobin 12.3 12.0 - 15.9 g/dL 01/26/2024 1:14 AM EDT [facility] Hematocrit 35.6 34.0 - 46.6 % 01/26/2024 1:14 AM EDT [facility] MCV 96.0 79.0 - 97.0 fL 01/26/2024 1:14 AM EDT [facility] MCH 33.2(H) 26.6 - 33.0 pg 01/26/2024 1:14 AM EDT [facility] MCHC 34.6 31.5 - 35.7 g/dL 01/26/2024 1:14 AM EDT [facility] RDW 14.3 12.3 - 15.4 % 01/26/2024 1:14 AM EDT [facility] RDW-SD 46.9 37.0 - 54.0 fl 01/26/2024 1:14 AM [facility] MPV 9.9 6.0 - 12.0 fL 01/26/2024 1:14 AM [facility] Platelets 349 140 - 450 10*3/mm3 01/26/2024 1:14 AM [facility] Neutrophil % 60.9 42.7 - 76.0 % 01/26/2024 1:14 AM [facility] Lymphocyte % 30.6 19.6 - 45.3 % 01/26/2024 1:14 AM [facility] Monocyte % 5.7 5.0 - 12.0 % 01/26/2024 1:14 AM [facility] Eosinophil % 0.9 0.3 - 6.2 % 01/26/2024 1:14 AM [facility] Basophil % 0.6 0.0 - 1.5 % 01/26/2024 1:14 AM [facility] Immature Grans % 1.3(H) 0.0 - 0.5 % 01/26/2024 1:14 AM [facility] Neutrophils, Absolute 6.93 1.70 - 7.00 10*3/mm3 01/26/2024 1:14 AM [facility] Lymphocytes, Absolute 3.48(H) 0.70 - 3.10 10*3/mm3 01/26/2024 1:14 AM [facility] Monocytes, Absolute 0.65 0.10 - 0.90 10*3/mm3 01/26/2024 1:14 AM [facility] Eosinophils, Absolute 0.10 0.00 - 0.40 10*3/mm3 01/26/2024 1:14 AM [facility] Basophils, Absolute 0.07 0.00 - 0.20 10*3/mm3 01/26/2024 1:14 AM [facility] Immature Grans, Absolute 0.15(H) 0.00 - 0.05 10*3/mm3 01/26/2024 1:14 AM [facility] nRBC 0.0 0.0 - 0.2 /100 WBC 01/26/2024 1:14 AM EDT [facility] Blood Structure of right upper limb / Unknown Venipuncture / Unknown 01/26/2024 12:38 AM EDT 01/26/2024 1:11 AM EDT us Kris Bird MD LAB BLOOD ORDERABLES Final Resul t Performing Organization Address [facility] de Phone Number [facility]
[address] [place] [address], * Lactic Acid, Plasma (01/26/2024 12:38 AM EDT) Lactate 1.6 0.5 - 2.0 mmol/L 01/26/2024 1:27 AM EDT [facility] Comment:Falsely depressed re sults may occur on samples drawn from patients receiving N-Acetylcysteine (NAC) or Metamizole. Blood Structure of right upper limb / Unknown Venipuncture / Unknown 01/26/2024 12:38 AM EDT 01/26/2024 1:09 AM EDT us Kris Bird MD LAB BLOOD ORDERABLES Final Resul t Performing Organization Address [facility] de Phone Number [facility]
[address] [place] [address], * (ABNORMAL) Lipase (01/26/2024 12:38 AM EDT) Lipase 109(H) 13 - 60 U/L 01/26/2024 1:31 AM EDT [facility] Blood Structure of right upper limb / Unknown Venipuncture / Unknown 01/26/2024 12:38 AM EDT 01/26/2024 1:09 AM EDT us Kris Bird MD LAB BLOOD ORDERABLES Final Resul t Performing Organization Address [facility] de Phone Number [facility]
[address] [place] [address], * (ABNORMAL) Comprehensive Metabolic Panel (01/26/2024 12:38 AM EDT) [facility] Signature Glucose 93 65 - 99 mg/dL 01/26/2024 1:31 AM EDT [facility] BUN 18 6 - 20 mg/dL 01/26/2024 1:31 AM EDT [facility] Creatinine 1.02(H) 0.57 - 1.00 mg/dL 01/26/2024 1:31 AM EDT [facility] Sodium 136 136 - 145 mmol/L 01/26/2024 1:31 AM EDT [facility] Potassium 3.6 3.5 - 5.2 mmol/L 01/26/2024 1:31 AM EDT [facility] Chloride 99 98 - 107 mmol/L 01/26/2024 1:31 AM EDT [facility] CO2 25.0 22.0 - 29.0 mmol/L 01/26/2024 1:31 AM EDT [facility] Calcium 8.7 8.6 - 10.5 mg/dL 01/26/2024 1:31 AM EDT [facility] Total Protein 6.5 6.0 - 8.5 g/dL 01/26/2024 1:31 AM EDT [facility] Albumin 3.8 3.5 - 5.2 g/dL 01/26/2024 1:31 AM EDT [facility] ALT (SGPT) 35(H) 1 - 33 U/L 01/26/2024 1:31 AM EDT [facility] AST (SGOT) 80(H) 1 - 32 U/L 01/26/2024 1:31 AM EDT [facility] Alkaline Phosphatase 126(H) 39 - 117 U/L 01/26/2024 1:31 AM EDT [facility] Total Bilirubin 0.8 0.0 - 1.2 mg/dL 01/26/2024 1:31 AM EDT [facility] Globulin 2.7 gm/dL 01/26/2024 1:31 AM EDT [facility] Comment:Calculated Result A/G Ratio 1.4 g/dL 01/26/2024 1:31 AM EDT [facility] BUN/Creatinine Ratio 17.6 7.0 - 25.0 01/26/2024 1:31 AM EDT [facility] Anion Gap 12.0 5.0 - 15.0 mmol/L 01/26/2024 1:31 AM EDT [facility] eGFR 63.5 >60.0 mL/min/1.7 3 01/26/2024 1:31 AM EDT [facility] Blood Structure of right upper limb / Unknown Venipuncture / Unknown 01/26/2024 12:38 AM EDT 01/26/2024 1:09 AM EDT [facility] - 01/26/2024 1:31 AM EDT GFR Normal >60 Chronic Kidney Disease <60 Kidney Failure <15 Kris Bird MD LAB BLOOD ORDERABLES Final Resul t [facility]
[address] [place] [address], * LABS SCANNED (01/26/2024) [facility] LAB BLOOD ORDERABLES Final Re sult * Urine Culture - Urine, Urine, Clean Catch (01/25/2024 11:53 PM EDT) Urine Culture 50,000 CFU/mL Normal Urogenital Rosa Elena JAVAN 01/27/2024 11:27 AM EDT [facility] Urine Urine specimen obtained by clean catch procedure / Unknown Collection / Unknown 01/25/2024 11:53 PM EDT 01/26/2024 12:24 AM EDT Narrative [facility] - 01/27/2024 11:27 AM EDT Colonization of the urinary tract without infection is common. Treatment is discouraged unless the patient is symptomatic, , or undergoing an invasive urologic procedure. us Ambika Arreaga MD MICROBIOLOGY - GENERAL ORDERABLE S Final Result Performing Organization Address City/[facility]/ZIP Co de Phone Number [facility]
[address] [place] [address], [place] [phone] * (ABNORMAL) Urinalysis, Microscopic Only - Urine, Clean Catch (01/25/2024 11:53 PM EDT) RBC, UA 0-2 None Seen, 0-2 /HPF 01/26/2024 12:53 AM EDT [facility] WBC, UA 21-50(A) None Seen, 0-2 /HPF 01/26/2024 12:53 AM EDT [facility] Bacteria, UA None Seen None Seen, Trace /HPF 01/26/2024 12:53 AM EDT [facility] Squamous Epithelial Cells, UA 3-6(A) None Seen, 0-2 /HPF 01/26/2024 12:53 AM EDT [facility] Hyaline Casts, UA 0-6 0 - 6 /LPF 01/26/2024 12:53 AM EDT [facility] Methodology Manual Light Microscopy 01/26/2024 12:53 AM EDT [facility] Urine Urine specimen obtained by clean catch procedure / Unknown Collection / Unknown 01/25/2024 11:53 PM EDT 01/26/2024 12:24 AM EDT Kris Bird MD URINE ORDERABLES Final Result Performing Organization Address City/[facility]/ZIP Co de Phone Number [facility]
[address] [place] [address], [place] [phone] * (ABNORMAL) Urinalysis With Microscopic If Indicated (No Culture) - Urine, Clean Catch (01/25/2024 11:53 PM EDT) Color, UA Yellow Yellow, Straw 01/26/2024 12:53 AM EDT [facility] Appearance, UA Cloudy(A) Clear 01/26/2024 12:53 AM EDT [facility] [facility] pH, UA 5.5 5.0 - 8.0 01/26/2024 12:53 AM EDT [facility] Specific [place], UA 1.013 1.001 - 1.030 01/26/2024 12:53 AM EDT [facility] Glucose, UA Negative Negative 01/26/2024 12:53 AM EDT [facility] Ketones, UA Negative Negative 01/26/2024 12:53 AM EDT [facility] Bilirubin, UA Negative Negative 01/26/2024 12:53 AM EDT [facility] Blood, UA Negative Negative 01/26/2024 12:53 AM EDT [facility] Protein, UA Negative Negative 01/26/2024 12:53 AM EDT [facility] Leuk Esterase, UA Large (3+)(A) Negative 01/26/2024 12:53 AM EDT [facility] Nitrite, UA Negative Negative 01/26/2024 12:53 AM EDT [facility] Urobilinogen, UA 0.2 E.U./dL 0.2 - 1.0 E.U./dL 01/26/2024 12:53 AM EDT [facility] Urine Urine specimen obtained by clean catch procedure / Unknown Collection / Unknown 01/25/2024 11:53 PM EDT 01/26/2024 12:24 AM EDT us Kris Bird MD URINE ORDERABLES Final Result [facility]
[address] [place] [address], * [place] CRITICAL CARE ILL/INJURED PATIENT INIT 30-74 MIN [...] disposal. 0841 (Given - Provider: Chikis Shi, PLATE GRINDER)1945 (Given - Provider: Makenna Wiggins, CLINICAL COUNSELOR)2129 (Canceled Entry - Provider: Makenna Wiggins RRT) [...] - Provider: Chanelle Marte RN)1215 (Return to [facility] - Provider: Chai Martinez, DIANE) albuterol (PROVENTIL) [...] - Provider: Chai Martinez RN)2045 (Return to [facility] - Provider: Chanelle Marte RN) hydrOXYzine (ATARAX) [...] 0041 documented in this encounter Care Teams Plasma Specialist Relationship Specialty Start Date End Date Salima Gonzáles DO [facility] [employer] [place] [id number] PCP - General Family Medicine 02/21/17 documented as of this encounter
--- OUTSIDE RECORDS SUMMARY | 2024-04-06 23:27 | XMS_ITS | Encounter Summary ---
[facility] Address [address] [id number] Care Team Providers Care Manager Enterprise Name Role Phone Salima Gonzáles DO Primary Care Provider [phone] Encounter Details Date Type Department Care Team [...] on filedocumented in this encounter Care Teams Manager Enterprise Relationship Specialty Start Date End Date Salima Gonzáles DO [facility] [address] [place] [address] PCP - General Family Medicine 02/21/17 documented as of this encounter
--- OUTSIDE RECORDS SUMMARY | 2024-04-06 23:27 | XMS_ITS | Encounter Summary ---
[facility] Address [address] [place] [address] Care Team Providers Care Stroke Coordinator Name Role Phone Eliecer Salimajovanni Connergh Primary Care Provider [phone] Reason for Visit * Cardiac (Routine) - Closed Specialty Diagnoses / Procedures Referred By Josep t Referred To Contact Diagnoses Palpitations Procedures Holter Monitor - 72 Hour Up To 15 Days Alea Juarez APRN [address] [place] [address] Phone: tel: fax: [facility] [address] [place] [address] Phone: tel: Referral ID Status Reason Start Date Expiration Date Visits Re quested Visits Authorized [id number] Closed 08/01/2023 07/31/2024 1 1 Encounter Details Date Type Department Care Team (Late st Contact Info) Description 08/01/2023 9:15 AM EDT Ancillary Procedure [facility] [address] [...] for this exam include palpitations. Total beats: [id number]. Average HR: 69. Min HR: 40. Max [...] on filedocumented in this encounter Care Teams Stroke Coordinator Relationship Specialty Start Date End Date Salima Gonzáles DO [address] [place] [address] PCP - General Family Medicine 02/21/17 documented as of this encounter
--- OUTSIDE RECORDS SUMMARY | 2024-04-06 23:27 | XMS_ITS | Encounter Summary ---
[facility] Organization [facility] Address [address] [place] [address] Care Team Providers Care Farmworker [employer] Name Role Phone Salima Gonzáles DO Primary Care Provider [phone] Reason for Referral * Diagnostic Imaging (Routine) - Closed Specialty Diagnoses / Procedures Referred By Josep t Referred To Contact Radiology Diagnoses Pain of right heel Procedures MRI Foot Right Without Contrast Rick Hernández MD [address] [place] [address] Phone: tel: fax: [place] [address] Phone: tel: Referral ID Status Reason Start Date Expiration Date Visits Re quested Visits Authorized [id number] Closed 02/21/2017 04/21/2017 1 1 Reason for Visit * Diagnostic Imaging (Routine) - Closed Specialty Diagnoses / Procedures Referred By Contac t Referred To Contact Radiology Diagnoses Pain of right heel Procedures MRI Foot Right Without Contrast Rick Hernández MD [address] [place] [address] Phone: tel: fax: [place] [address] Phone: tel: Referral ID Status Reason Start Date Expiration Date Visits Re quested Visits Authorized [id number] Closed 02/21/2017 04/21/2017 1 1 Encounter Details Date Type Department Care Team (Late st Contact Info) Description 04/20/2017 4:15 PM EST - 04/20/2017 11:59 PM [facility] Hospital Encounter [facility] MRI [address] [place] [id number] Rick Hernández MD [address] [facility] [address] [place] [address] Pain of right heel Discharge Disposition: Home [...] heel documented in this encounter Care Teams Farmworker [employer] Relationship Specialty Start Date End Date Salima Gonzáels DO [facility] [place] [address] PCP - General Family Medicine 02/21/17 documented as of this encounter
--- OUTSIDE RECORDS SUMMARY | 2024-04-06 23:27 | XMS_ITS | Clinical Summary ---
Author Organization [employer] Address [address] [place] [address] Care Team Providers Care Alarm Mechanic Name Role Phone Salima Gonzáles DO Primary Care Provider [phone] Social History Tobacco Use Types Packs/Day Years [...] T d or Tdap) 01/25/2028 01/24/2018 Insurance [facility] ACC[facility] H[facility] MAP Care Teams Alarm Mechanic Relationship Specialty Start Date End Date Salima Gonzáles, DO [address] [facility] [address] [place] [address] PCP - General Family Medicine 02/09/23
--- OUTSIDE RECORDS SUMMARY | 2024-04-06 23:27 | XMS_ITS | Encounter Summary ---
[facility] Address [address] [place] [id number] Care Team Providers Care Junior Art Director Name Role Phone Salima Gonzáles Primary Care Provider [phone] Reason for Visit * Reason Comments Follow-up Right foot - 3 month s after MRI Encounter Details Date Type Department Care Team (Late st Contact Info) Description 05/14/2017 3:20 PM EST Office Visit [facility] [address] [place] [address] Rick Hernández MD [address] [facility] [address] [place] [address] Pain of right heel (Primary Dx); Morbid [...] Progress Notes * Rick Hernández MD - 05/14/2017 3:20 PM EST Images from the original note were not included. [facility] Orthopaedic Surgery Clinic Note Subjective Chief Complaint [...] necessary she is welcome to see a quantitative analyst but I did not recommend heel spur surgery Medical Decision Making Management Options : [id number] medicine Data/Risk: radiology tests and independent visualization of imaging, lab tests, or EMG/NCV Rick Hernández MD 05/14/17 4:20 PM documented in this encounter Plan of Treatment Not on file documented as of this encounter Visit Diagnoses Diagnosis Pain of right heel- Primary Morbid obesity with BMI of 45.0-49.9, adult documented in this encounter Care Teams Junior Art Director Relationship Specialty Start Date End Date Salima Gonzáles DO [address] [place] [address] PCP - General Family Medicine 02/21/17 documented as of this encounter
--- OUTSIDE RECORDS SUMMARY | 2024-04-06 23:27 | XMS_ITS | Encounter Summary ---
[facility] Address [address] [place] [address] Care Team Providers Care Systems Integrator Name Role Phone Salima Gonzáles DO Primary Care Provider [phone] Encounter Details Date Type Department Care Team (Late st Contact Info) Description 12/26/2022 5:00 AM EDT Outside Facility Service [facility] [address] [place] [address] Kia Acosta MD [address] [place], [place] [id number] Social History Tobacco Use Types Packs/Day Years [...] on filedocumented in this encounter Care Teams Systems Integrator Relationship Specialty Start Date End Date Salima Gonzáles DO [address] [place] [address] PCP - General Family Medicine 02/21/17 documented as of this encounter
--- OUTSIDE RECORDS SUMMARY | 2024-04-06 23:27 | XMS_ITS | Clinical Summary ---
[facility] Address [address] [place] [address] Care Team Providers Care Sap Crm Developer Name Role Phone Eliecer Salima Radha Primary Care Provider [phone] Allergies Active Allergy Reactions Criticality Noted Date [...] Sensor (FreeStyle Niels 2 Sensor) [facility] USE DIRECTED FOR CONTINUOUS GLUCOSE MONITORING 01/24/20 [...] patient to restart PAP therapy and contact [employer] to find a better mask that does not cause migraines. 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 Encouraged patient to restart PAP therapy and contact [employer] to find a better mask that does not cause migraines. Resolved Problems Problem Noted Date Diagnosed Date Resolved Date Back pain 01/26/2024 01/27/2024 Encounters Date Type Department Care Team Description 01/26/2024 12:25 AM EDT - 01/27/2024 2:41 PM EDT Emergency [address] [place] [address] Kris Bird MD [place], Emma [...] URINE CULTURE STAT 01/25/2024 11:53 PM EDT [place] CRITICAL CARE ILL/INJURED PATIENT INIT 30-74 MIN Routine 01/25/2024 11:51 PM EDT from Last 3 Months Results * POC Glucose Once (01/27/2024 10:48 AM EDT) Only the most recent of3 resultswithin the time period is included. Glucose 98 70 - 130 mg/dL 01/27/2024 10:52 AM EDT [facility] Blood 01/27/2024 10:4 8 AM EDT 01/27/2024 10:52 AM EDT Nabil Guerrero MD POINT OF CARE TEST ORDERABLES Final Result [facility]
[address] [place] [address], [place] [phone] * (ABNORMAL) Comprehensive Metabolic Panel (01/27/2024 6:05 AM EDT) Only the most recent of2 resultswithin the time period is included. Glucose 76 65 - 99 mg/dL 01/27/2024 7:02 AM EDT [facility] BUN 18 6 - 20 mg/dL 01/27/2024 7:02 AM EDT [facility] Creatinine 0.98 0.57 - 1.00 mg/dL 01/27/2024 7:02 AM EDT [facility] Sodium 143 136 - 145 mmol/L 01/27/2024 7:02 AM EDT [facility] Potassium 4.3 3.5 - 5.2 mmol/L 01/27/2024 7:02 AM EDT [facility] Chloride 107 98 - 107 mmol/L 01/27/2024 7:02 AM EDT [facility] CO2 29.0 22.0 - 29.0 mmol/L 01/27/2024 7:02 AM EDT [facility] Calcium 8.4(L) 8.6 - 10.5 mg/dL 01/27/2024 7:02 AM EDT [facility] Total Protein 5.3(L) 6.0 - 8.5 g/dL 01/27/2024 7:02 AM EDT [facility] Albumin 3.4(L) 3.5 - 5.2 g/dL 01/27/2024 7:02 AM EDT [facility] ALT (SGPT) 32 1 - 33 U/L 01/27/2024 7:02 AM EDT [facility] AST (SGOT) 22 1 - 32 U/L 01/27/2024 7:02 AM EDT [facility] Alkaline Phosphatase 112 39 - 117 U/L 01/27/2024 7:02 AM EDT [facility] Total Bilirubin 0.4 0.0 - 1.2 mg/dL 01/27/2024 7:02 AM EDT [facility] Globulin 1.9 gm/dL 01/27/2024 7:02 AM EDT [facility] Comment:Calculated Result A/G Ratio 1.8 g/dL 01/27/2024 7:02 AM EDT [facility] BUN/Creatinine Ratio 18.4 7.0 - 25.0 01/27/2024 7:02 AM EDT [facility] Anion Gap 7.0 5.0 - 15.0 mmol/L 01/27/2024 7:02 AM EDT [facility] eGFR 66.6 >60.0 mL/min/1.7 3 01/27/2024 7:02 AM EDT [facility] Blood Venipuncture / Unknown 01/27/2024 6:05 AM EDT 01/27/2024 6:17 AM EDT Narrative [facility] - 01/27/2024 7:02 AM EDT GFR Normal >60 Chronic Kidney Disease <60 Kidney Failure <15 us Ambika Arreaga MD LAB BLOOD ORDERABLES Final Resul t [facility]
[address] [place] [address], * US Liver (01/26/2024 4:58 AM EDT) Anatomical Region Laterality Modality Body, Abdomen Ultrasound 01/26/2024 5:09 AM EDT Impressions 01/26/2024 5:13 AM EDT Impression: Normal common duct. Electronically Signed: Junior Boo MD 01/26/2024 5:13 AM EDT Workstation ID: [id number] Narrative 01/26/2024 5:13 AM EDT US LIVER [...] The right kidney is 8.9 cm in [id number] length and there is no hydronephrosis. There [...] normal.The right kidney is 8.9 cm in vrwr-[id number] length and there is nohydronephrosis. There is a small exophytic cyst measuring about 2 cm. The pancreas is incompletely seen secondary toshadowing from overlying bowel gas. IMPRESSION: Impression: Normal common duct. Electronically Signed: Junior Boo MD 01/26/2024 5:13 AM EDT Workstation ID: [id number] Ambika Arreaga MD [facility] US ORDERABLES Final Result * Blood Culture - Blood, Arm, Right (01/26/2024 2:00 AM EDT) Only the most recent of2 resultswithin the time period is included. Blood Culture No growth at 5 days 01/31/2024 7:00 AM EDT [facility] Blood Structure of right upper limb / Unknown Venipuncture / Unknown 01/26/2024 2:00 AM EDT 01/26/2024 6:51 AM EDT us Kris Bird MD MICROBIOLOGY - GENERAL ORDERABLE S Final Result [facility]
[address] [place] [address], * CT Abdomen Pelvis Without Contrast (01/26/2024 1:01 AM EDT) Anatomical Region Laterality Modality Abdomen, Pelvis N/A Computed Tomogra phy 01/26/2024 1:38 AM EDT Impressions 01/26/2024 1:44 AM EDT Impression: 1.Faint left lower lobe nodular airspace opacities suggestive of infectious process. 2.No acute abdominal or pelvic abnormality. 3.Bilateral fat-containing inguinal hernias. Electronically Signed: Junior Boo MD 01/26/2024 1:44 AM EDT Workstation ID: [id number] Narrative 01/26/2024 1:[address] ABDOMEN [...] MD 01/26/2024 1:44 AM EDT Workstation ID: [id number] us Kris Bird MD IMG CT ORDERABLES Final Result * (ABNORMAL) CBC Auto Differential (01/26/2024 12:38 AM EDT) WBC 11.38(H) 3.40 - 10.80 10*3/mm3 01/26/2024 1:14 AM EDT [facility] RBC 3.71(L) 3.77 - 5.28 10*6/mm3 01/26/2024 1:14 AM EDT [facility] Hemoglobin 12.3 12.0 - 15.9 g/dL 01/26/2024 1:14 AM EDT [facility] Hematocrit 35.6 34.0 - 46.6 % 01/26/2024 1:14 AM EDT [facility] MCV 96.0 79.0 - 97.0 fL 01/26/2024 1:14 AM EDT [facility] MCH 33.2(H) 26.6 - 33.0 pg 01/26/2024 1:14 AM EDT [facility] MCHC 34.6 31.5 - 35.7 g/dL 01/26/2024 1:14 AM EDT [facility] RDW 14.3 12.3 - 15.4 % 01/26/2024 1:14 AM EDT [facility] RDW-SD 46.9 37.0 - 54.0 fl 01/26/2024 1:14 AM EDT [facility] MPV 9.9 6.0 - 12.0 fL 01/26/2024 1:14 AM EDT [facility] Platelets 349 140 - 450 10*3/mm3 01/26/2024 1:14 AM EDT [facility] Neutrophil % 60.9 42.7 - 76.0 % 01/26/2024 1:14 AM EDT [facility] Lymphocyte % 30.6 19.6 - 45.3 % 01/26/2024 1:14 AM EDT [facility] Monocyte % 5.7 5.0 - 12.0 % 01/26/2024 1:14 AM EDT [facility] Eosinophil % 0.9 0.3 - 6.2 % 01/26/2024 1:14 AM EDT [facility] Basophil % 0.6 0.0 - 1.5 % 01/26/2024 1:14 AM EDT [facility] Immature Grans % 1.3(H) 0.0 - 0.5 % 01/26/2024 1:14 AM EDT [facility] Neutrophils, Absolute 6.93 1.70 - 7.00 10*3/mm3 01/26/2024 1:14 AM EDT [facility] Lymphocytes, Absolute 3.48(H) 0.70 - 3.10 10*3/mm3 01/26/2024 1:14 AM EDT [facility] Monocytes, Absolute 0.65 0.10 - 0.90 10*3/mm3 01/26/2024 1:14 AM EDT [facility] Eosinophils, Absolute 0.10 0.00 - 0.40 10*3/mm3 01/26/2024 1:14 AM EDT [facility] Basophils, Absolute 0.07 0.00 - 0.20 10*3/mm3 01/26/2024 1:14 AM EDT [facility] Immature Grans, Absolute 0.15(H) 0.00 - 0.05 10*3/mm3 01/26/2024 1:14 AM EDT [facility] nRBC 0.0 0.0 - 0.2 /100 WBC 01/26/2024 1:14 AM EDT [facility] Blood Structure of right upper limb / Unknown Venipuncture / Unknown 01/26/2024 12:38 AM EDT 01/26/2024 1:11 AM EDT us Kris Bird MD LAB BLOOD ORDERABLES Final Resul t [facility]
[address] [place] [address], * (ABNORMAL) Lipase (01/26/2024 12:38 AM EDT) Lipase 109(H) 13 - 60 U/L 01/26/2024 1:31 AM EDT [facility] Blood Structure of right upper limb / Unknown Venipuncture / Unknown 01/26/2024 12:38 AM EDT 01/26/2024 1:09 AM EDT us Kris Bird MD LAB BLOOD ORDERABLES Final Resul t Performing Organization Address [facility] de Phone Number [facility]
[address] [place] [address], * Lactic Acid, Plasma (01/26/2024 12:38 AM EDT) Lactate 1.6 0.5 - 2.0 mmol/L 01/26/2024 1:27 AM EDT [facility] Comment:Falsely depressed re sults may occur on samples drawn from patients receiving N-Acetylcysteine (NAC) or Metamizole. Blood Structure of right upper limb / Unknown Venipuncture / Unknown 01/26/2024 12:38 AM EDT 01/26/2024 1:09 AM EDT us Kris Bird MD LAB BLOOD ORDERABLES Final Resul t Performing Organization Address [facility] de Phone Number [facility]
[address] [place] [address], * CK (01/26/2024 12:38 AM EDT) Creatine Kinase 70 20 - 180 U/L 01/26/2024 4:25 AM EDT [facility] Blood Structure of right upper limb / Unknown Venipuncture / Unknown 01/26/2024 12:38 AM EDT 01/26/2024 1:09 AM EDT Ambika Arreaga MD LAB BLOOD ORDERABLES Final Resul t Performing Organization Address [facility] de Phone Number [facility]
[address] [place] [id number], * LABS SCANNED (01/26/2024) [facility] LAB BLOOD ORDERABLES Final Re sult * (ABNORMAL) Urinalysis, Microscopic Only - Urine, Clean Catch (01/25/2024 11:53 PM EDT) RBC, UA 0-2 None Seen, 0-2 /HPF 01/26/2024 12:53 AM EDT [facility] WBC, UA 21-50(A) None Seen, 0-2 /HPF 01/26/2024 12:53 AM EDT [facility] Bacteria, UA None Seen None Seen, Trace /HPF 01/26/2024 12:53 AM EDT [facility] Squamous Epithelial Cells, UA 3-6(A) None Seen, 0-2 /HPF 01/26/2024 12:53 AM EDT [facility] Hyaline Casts, UA 0-6 0 - 6 /LPF 01/26/2024 12:53 AM EDT [facility] Methodology Manual Light Microscopy 01/26/2024 12:53 AM EDT [facility] Urine Urine specimen obtained by clean catch procedure / Unknown Collection / Unknown 01/25/2024 11:53 PM EDT 01/26/2024 12:24 AM EDT Kris Bird MD URINE ORDERABLES Final Result [facility]
[address] [place] [address], * (ABNORMAL) Urinalysis With Microscopic If Indicated (No Culture) - Urine, Clean Catch (01/25/2024 11:53 PM EDT) Color, UA Yellow Yellow, Straw 01/26/2024 12:53 AM EDT [facility] Appearance, UA Cloudy(A) Clear 01/26/2024 12:53 AM EDT [facility] pH, UA 5.5 5.0 - 8.0 01/26/2024 12:53 AM EDT [facility] Specific [place], UA 1.013 1.001 - 1.030 01/26/2024 12:53 AM EDT [facility] Glucose, UA Negative Negative 01/26/2024 12:53 AM EDT [facility] Ketones, UA Negative Negative 01/26/2024 12:53 AM EDT [facility] Bilirubin, UA Negative Negative 01/26/2024 12:53 AM EDT [facility] Blood, UA Negative Negative 01/26/2024 12:53 AM EDT [facility] Protein, UA Negative Negative 01/26/2024 12:53 AM EDT [facility] Leuk Esterase, UA Large (3+)(A) Negative 01/26/2024 12:53 AM EDT [facility] Nitrite, UA Negative Negative 01/26/2024 12:53 AM EDT [facility] Urobilinogen, UA 0.2 E.U./dL 0.2 - 1.0 E.U./dL 01/26/2024 12:53 AM EDT [facility] Urine Urine specimen obtained by clean catch procedure / Unknown Collection / Unknown 01/25/2024 11:53 PM EDT 01/26/2024 12:24 AM EDT us Kris Bird MD URINE ORDERABLES Final Result [facility]
[address] [place] [address], * Urine Culture - Urine, Urine, Clean Catch (01/25/2024 11:53 PM EDT) Urine Culture 50,000 CFU/mL Normal Urogenital Rosa Elena JAVAN 01/27/2024 11:27 AM EDT [facility] Urine Urine specimen obtained by clean catch procedure / Unknown Collection / Unknown 01/25/2024 11:53 PM EDT 01/26/2024 12:24 AM EDT Narrative [facility] - 01/27/2024 11:27 AM EDT Colonization of the urinary tract without infection is common. Treatment is discouraged unless the patient is symptomatic, , or undergoing an invasive urologic procedure. Ambika Arreaga MD MICROBIOLOGY - GENERAL ORDERABLE S Final Result [facility]
[address] [place] [address], * [place] CRITICAL CARE ILL/INJURED PATIENT INIT 30-74 MIN [...] Of Support Discussed With: Patient Care Teams Sap Crm Developer Relationship Specialty Start Date End Date Salima Gonzáles DO [facility][note 3] [place] [address] PCP - General Family Medicine 02/21/17
--- OUTSIDE RECORDS SUMMARY | 2024-04-06 23:27 | XMS_ITS | Encounter Summary ---
[facility] Address [address] [place] [address] Care Team Providers Care Patient Transport Officer Name Role Phone Eliecer Salima Radha Primary Care Provider [phone] Reason for Visit * Diagnostic Imaging (Routine) - Closed Specialty Diagnoses / Procedures Referred By Contac t Referred To Contact Diagnoses Precordial chest pain Shortness of breath Palpitations Procedures Adult Transthoracic Echo Complete W/ Cont if Necessary Per Protocol Alea Juarez, YAIMA [address] [address] Phone: tel: fax: [facility] [place] [address] [address] Phone: tel: fax: Referral ID Status Reason Start Date Expiration Date Visits Re quested Visits Authorized [id number] Closed 12/13/2022 12/13/2023 1 1 Encounter Details Date Type Department Care Team (Latest Contact Info) Description 02/08/2023 2:45 PM EDT Ancillary Procedure [facility] [address] [place] [address] [...] Palpitations documented in this encounter Care Teams Patient Transport Officer Relationship Specialty Start Date End Date Salima Gonzáles DO [address] [place] [address] PCP - General Family Medicine 02/21/17 documented as of this encounter
--- OUTSIDE RECORDS SUMMARY | 2024-04-06 23:27 | XMS_ITS | Encounter Summary ---
[facility] Address [address] [address] Care Team Providers Care Accounts Payable Lead Name Role Phone Salima Gonzáles DO Primary Care Provider [phone] Reason for Referral * Diagnostic Imaging (Routine) - Closed Specialty Diagnoses / Procedures Referred By Josep banuelos Referred To Contact Radiology Diagnoses Pain of right heel Procedures MRI Foot Right Without Contrast Rick Hernández MD [facility] [address] [place] [address] Phone: tel: fax: [address] [address] Phone: tel: Referral ID Status Reason Start Date Expiration Date Visits Re quested Visits Authorized [id number] Closed 02/21/2017 04/21/2017 1 1 Reason for Visit * Reason Comments Pain Right heel * Consultation (Routine) - Closed Specialty Diagnoses / Procedures Referred By Contac t Referred To Contact Orthopedic Surgery Diagnoses Heel spur, right Referring, [place] [address] Rick Hernández MD [address] [place] [address] [place] [address] Phone: tel: fax: Referral ID Status Reason Start Date Expiration Date Visits Re quested Visits Authorized [id number] Closed 01/22/2017 01/22/2018 1 1 Encounter Details Date Type Department Care Team (Late st Contact Info) Description 02/21/2017 9:40 AM EDT Office Visit [facility] [address] [facility] [address] [id number] Rick Hernández MD [address] [facility] [address] [place] [address] Pain of right heel (Primary Dx) Social [...] from the original note were not included. [facility] Note Subjective Chief Complaint [...] did a left heel spur removal and [place] a few years ago with great relief. [...] boot Medical Decision Making Management Options : xiyy-ngk-ogufjnu medicine Data/Risk: radiology tests and independent visualization [...] heel documented in this encounter Care Teams Accounts Payable Lead Relationship Specialty Start Date End Date Salima Gonzáles DO [address] [place] [address] PCP - General Family Medicine 02/21/17 documented as of this encounter
--- OUTSIDE RECORDS SUMMARY | 2024-04-06 23:27 | XMS_ITS | Encounter Summary ---
Author Organization [facility] Address [address] [place] [address] Care Team Providers Care Sheep Farm Manager Name Role Phone Unavailable Primary Care Provider Unavailabl e Encounter Details Date Type Department Care Team (Latest Contact Info) Description 09/22/2015 6:31 PM EDT - 09/22/2015 11:59 PM EDT Hospital Encounter [facility] DEPARTMENT [address] [place] [address] Harper Loya PA [address] [place] [address] [address] [place] [address] Discharge Disposition: Home or Self Care Social [...] 09/22/2015 7:36 PM EDT Comment:R BREAST Narrative [facility] - 09/26/2015 11:18 AM EDT Specimen [...] MICROBIOLOGY - GENERAL OR DERABLES Final Result [facility]
[address] [id number], documented in this encounter Visit Diagnoses Not on filedocumented in this encounter
--- OUTSIDE RECORDS SUMMARY | 2024-04-06 23:27 | XMS_ITS | Encounter Summary ---
[facility] Address [address] [place] [address] Care Team Providers Care Director Of Physiotherapy Services Name Role Phone Eliecer Salima Radha Primary Care Provider [phone] Reason for Referral * MRI/CAT/PET Scan (Routine) - Closed Specialty Diagnoses / Procedures Referred By Contac t Referred To Contact Diagnoses Abnormal nuclear stress test Precordial chest pain Abnormal findings on diagnostic imaging of heart and coronary circulation Procedures CT Coronary FFR CTA Data JOHNNIE & GNRJ Estimated FFR Model Alea Juarez APRN [address] [address] Phone: tel: fax: RADIOLOGY [address] [place] [address] Phone: tel: fax: Referral ID Status Reason Start Date Expiration Date Visits Re quested Visits Authorized [id number] Closed 02/12/2023 02/12/2024 1 1 Reason for Visit * Reason Comments Palpitations Follow up ECHO and S tress Encounter Details Date Type Department Care Team (Late st Contact Info) Description 02/12/2023 2:30 PM EDT Office Visit [facility] [...] anterior ischemia. Overall still low risk study. monitoring engineer 11/20/2022-average heart rate 73 bpm, minimum 54 [...] Blood Gluc Sensor (FreeStyle Niels 2 Sensor) [facility], USE DIRECTED FOR CONTINUOUS GLUCOSE [...] MIGRAINE, Disp: , Rfl: ??? nystatin (MYCOSTATIN) 952387 UNIT/GM cream, , Disp: , Rfl: ??? nystatin-triamcinolone (MYCOLOG II) 115693-3.1 UNIT/GM-% cream, , Disp: , Rfl: ??? [...] Palpitations documented in this encounter Care Teams Director Of Physiotherapy Services Relationship Specialty Start Date End Date Salima Gonzáles DO [address] [place] [address] PCP - General Family Medicine 02/21/17 documented as of this encounter
--- OUTSIDE RECORDS SUMMARY | 2024-04-06 23:27 | XMS_ITS | Encounter Summary ---
[facility] Address [address] [place] [address] Care Team Providers Care Armhole Presser Name Role Phone Eliecer Salima Garcia Primary Care Provider [phone] Reason for Referral * Consultation (Routine) - Closed Specialty Diagnoses / Procedures Referred By Josep t Referred To Contact Pulmonary Disease Diagnoses Shortness of breath Chronic obstructive pulmonary disease, unspecified COPD type Procedures WA OFFICE/OUTPATIENT NEW MODERATE MDM 45 MINUTES Alea Juarez APRN [address] [address] Phone: tel: fax: Wale Hutchins MD [address] [place] [address] [facility] [address] Phone: tel: fax: Referral ID Status Reason Start Date Expiration Date V isits Requested Visits Authorized [id number] Closed Specialty Services Required 09/05/2023 09/04/2024 1 1 Reason for Visit * Reason Comments Shortness of Breath Holter monitor resul ts Encounter Details Date Type Department Care Team (Late st Contact Info) Description 09/05/2023 10:30 AM EDT Office Visit [facility] CARDIOLOG[facility] [address] [id number] Alea Juarez APRN [address] [...] encounter Progress Notes * Trautwein, Alea E, FORM TAMPING MACHINE OPERATOR - 09/05/2023 10:51 AM EDTAssociated Problem(s): Shortness [...] mild COPD and has not seen a shutdown planner recently. A Symbicort inhaler was initiated at [...] Blood Gluc Sensor (FreeStyle Niels 2 Sensor) [facility], USE DIRECTED FOR CONTINUOUS GLUCOSE [...] type documented in this encounter Care Teams Armhole Presser Relationship Specialty Start Date End Date Salima Gonzáles DO [facility] [employer] [place] [address] PCP - General Family Medicine 02/21/17 documented as of this encounter
--- OUTSIDE RECORDS SUMMARY | 2024-04-06 23:27 | XMS_ITS | Referral Summary ---
Author Organization [facility] [employer] Address [address] [place] [address] Care Team Providers Care Canoe Inspector Final Name Role Phone Salima Gonzáles DO Primary Care Provider [phone] Social History Tobacco Use Types Packs/Day Years Used Date Smoking Tobacco: Never Assessed Comments Unknown Sex and Gender Information Value Date Recorded Sex Assigned at Not on file Legal Sex Female 2:54 PM CDT Gender Identity Not on file Sexual Orientation Not on file Plan of Treatment Not on file [facility] Care Teams Canoe Inspector Final Relationship Specialty Start Date End Date Salima Gonzáles DO [address] [facility] [address] [place] [address] PCP - General Family Medicine 02/09/23
--- OUTSIDE RECORDS SUMMARY | 2024-04-06 23:27 | XMS_ITS | Encounter Summary ---
[facility] [address] [place] [address] Care Team Providers Care Barrel Inspector Tight Name Role Phone Salima Gonzáles Primary Care Provider [phone] Reason for Visit * Reason Comments Palpitations CCTA Results Encounter Details Date Type Department Care Team (Late st Contact Info) Description 04/03/2023 10:30 AM EST Office Visit [facility] CARDIOLOGY [address] [place] [id number] Alea Juarez, SUPERVISOR WASH HOUSE [address] [place] [address] Abnormal nuclear stress test (Primary Dx); Palpitations; [...] patient to restart PAP therapy and contact [employer] to find a better mask that does [...] moderate amount of total coronary plaque present. 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 11/20/2022-average heart rate 73 bpm, minimum 54 [...] Blood Gluc Sensor (FreeStyle Niels 2 Sensor) [facility], USE DIRECTED FOR CONTINUOUS GLUCOSE [...] FOR MIGRAINE, Disp: , Rfl: nystatin (MYCOSTATIN) 238438 UNIT/GM cream, , Disp: , Rfl: nystatin-triamcinolone (MYCOLOG II) 000268-3.1 UNIT/GM-% cream, , Disp: , Rfl: ondansetron [...] patient to restart PAP therapy and contact [employer] company to find a better mask that [...] (pediatric) documented in this encounter Care Teams Barrel Inspector Tight Relationship Specialty Start Date End Date Salima Gonzáles DO [address] [place] [address] PCP - General Family Medicine 02/21/17 documented as of this encounter
--- OUTSIDE RECORDS SUMMARY | 2024-04-06 23:27 | XMS_ITS | Encounter Summary ---
[facility] Address [address] [place] [address] Care Team Providers Care Strap Buckler Machine Name Role Phone Salima Gonzáles DO Primary Care Provider [phone] Encounter Details Date Type Department Care Team (Late st Contact Info) Description 02/28/2023 Telephone [facility] CARDIOLOGY [address] [place] [address] Alea Juarez, CHILD THERAPIST [address] [place] [address] Social History Tobacco Use Types Packs/Day [...] on filedocumented in this encounter Care Teams Strap Buckler Machine Relationship Specialty Start Date End Date Salima Gonzáles DO [facility] [place] [address] PCP - General Family Medicine 02/21/17 documented as of this encounter
--- OUTSIDE RECORDS SUMMARY | 2024-04-06 23:28 | XMS_ITS | Encounter Summary ---
Author Organization [employer] Address [address] [place] [address] Care Team Providers Care Leather Drier Name Role Phone Unavailable Primary Care Provider Unavailabl e Encounter Details Date Type Department Care Team (Late st Contact Info) Description 10/04/2020 Historic Encounter [address] [address] ProviderScarlet Historical Social History Tobacco [...] - 110 mg/dL 10/04/2020 8:12 PM EDT [facility] Sat Instructor [id number] 10/04/2020 8:12 PM EDT [facility] Device SN [id number] 10/04/2020 8:12 PM EDT [facility] Device Comment1 Notified Nurse RBV 10/04/2020 8:12 PM EDT [facility] Blood 10/04/2020 4:12 PM EDT 10/04/2020 9:15 PM EDT [facility] Historical Provider POINT OF CARE TEST MARIMAR BRISCOE Final Result Performing Organization Address City/State/[facility] Co de Phone Number [facility] [address] [place] [address] documented in this encounter Visit Diagnoses Not on filedocumented in this encounter
--- OUTSIDE RECORDS SUMMARY | 2024-04-06 23:28 | XMS_ITS | Encounter Summary ---
Author Organization [employer] [facility] Address [address] [place] [address] Care Team Providers Care Engineering Surveyor Name Role Phone Unavailable Primary Care Provider Unavailabl e Encounter Details Date Type Department Care Team (Late st Contact Info) Description 10/04/2020 Historic En[address] [address] ProviderScarlet Historical Social History Tobacco [...] - 110 mg/dL 10/05/2020 12:31 AM EDT [facility] Cigarette And Filter Chief Inspector [id number] 10/05/2020 12:31 AM EDT [facility] Device SN [id number] 10/05/2020 12:31 AM EDT [facility] Device Comment1 Protocols Followed 10/05/2020 12:31 AM EDT [facility] Blood 10/04/2020 8:31 PM EDT 10/05/2020 2:31 AM EDT [facility] Historical Provider POINT OF CARE TEST ORDE LUIS FELIPE Final Result Performing Organization Address City/State/[facility] Co de Phone Number [facility] [address] [place] [address] documented in this encounter Visit Diagnoses Not on filedocumented in this encounter
--- OUTSIDE RECORDS SUMMARY | 2024-04-06 23:28 | XMS_ITS | Encounter Summary ---
Author Organization [employer] Address [address] [place] [address] Care Team Providers Care Control Analyst Name Role Phone Unavailable Primary Care Provider Unavailabl e Encounter Details Date Type Department Care Team (Late st Contact Info) Description 10/03/2020 Historic Encounter [facility] [address] [place] [address] Provider, [facility] Historical Social History Tobacco Use Types Packs/Day [...] Priority Date/Time Associated Diagnosis Comments MAGNESIUM LEVEL ([facility] DATA CONV) Routine 10/03/2020 7:07 PM EDT documented in this encounter Results * MAGNESIUM LEVEL ([facility] BK DATA CONV) (10/03/2020 7:07 PM EDT) Magnesium Level 1.8 1.5 - 2.4 mg/dL 10/03/2020 11:32 PM EDT Blood 10/03/2020 7:07 PM EDT 10/03/2020 11:12 PM EDT [facility] Historical Provider LAB BLOOD ORDERABLES Fi nal Result [facility] [address] [place], [place] [address] [phone] documented in this encounter Visit Diagnoses Not on filedocumented in this encounter
--- OUTSIDE RECORDS SUMMARY | 2024-04-06 23:28 | XMS_ITS | Encounter Summary ---
Author Organization [employer] Address [address] [place] [address] Care Team Providers Care Rehabilitation Services Counselor Name Role Phone Salima Gonzáles Primary Care Provider [phone] Encounter Details Date Type Department Care Team (Late st Contact Info) Description 10/05/2020 Transcribed Document [facility] Family Medicine [address] [place] [address] ProviderQuincy MD [address] [place] [address] Social History Tobacco Use Types Packs/Day [...] Quincy ProviderMD - 10/05/2020 2:00 AM CDT Aviation Warfare Systems Operator Details Entered On: 10/05/2020 3:28 EDT Performed [...] on filedocumented in this encounter Care Teams Rehabilitation Services Counselor Relationship Specialty Start Date End Date Salima Gonzáles, [address] [address] PCP - General Family Medicine 02/09/23 documented as of this encounter
--- OUTSIDE RECORDS SUMMARY | 2024-04-06 23:28 | XMS_ITS | Encounter Summary ---
Author Organization [employer] Address [address] [place] [address] Care Team Providers Care Hypoid Gear Generator Name Role Phone Salima Mi DO Primary Care Provider [phone] Encounter Details Date Type Department Care Team (Late st Contact Info) Description 10/05/2020 Transcribed Document [facility] Family Medicine [address] [place] [address] ProviderQuincy MD [address] [place] [phone] Social History Tobacco Use Types Packs/Day Years [...] on Record Primary Care Provider SALIMA MI DO-[facility] Discharge Diagnosis COPD with asthma 10/05/2020 J44.9 [...] EDT, Full Code, Continuous Order Consulting Physicians DONALDO DUFFY MD HADLEY, FRED P, MD-URO ANGELY, MD VERONICA-ANS Current Diet Order Diet, Adult - Ordered -- Start: 10/05/20 8:17:00 EDT, 60 gm carbs:4947-5525 josue, GI Soft / Low Residue / [...] on filedocumented in this encounter Care Teams Hypoid Gear Generator Relationship Specialty Start Date End Date Salima Mi DO [facility] [address] [place] [address] PCP - General Family Medicine 02/09/23 documented as of this encounter
--- OUTSIDE RECORDS SUMMARY | 2024-04-06 23:28 | XMS_ITS | Encounter Summary ---
Author Organization [employer] Address [address] [place] [address] Care Team Providers Care Real Estate Office Supervisor Name Role Phone Salima Mi DO Primary Care Provider [phone] Encounter Details Date Type Department Care Team (Late st Contact Info) Description 10/05/2020 Transcribed Document [facility] Family Medicine [address] [place] [address] ProviderQuincy MD [address] [place] [address] Social History Tobacco Use Types Packs/Day [...] Kate MD - 10/05/2020 4:12 PM [place] [address] AMBIKA PIERRE :1965 Visit Time:10/03/2020 [...] you. Where: [address] [place] [address]- Follow Up with ANNABEL ZAMBRANO MD-URO When Within 3 months Comments For kidney stone follow up. Call for follow up appointment. Bring discharge instructions with you. Bring Ins Card, Photo ID, Ins Co-pay. Where: [address] [facility] [address] [place] [address]- Medications What How Much When Instructions Next Dose pseudoePHEDrine (Sudafed 30 mg oral tablet) 1 Tablet(s) Oral Every 6 Hours as needed for Congestion Pickup at [facility] as needed montelukast (Singulair 10 [...] sitagliptin (Januvia) 100mg daily tomorrow Pharmacy Information [phone]: [phone] [place] [place] [address] [phone] Take your medications faithfully. Do NOT skip [...] these instructions at home: Medicines ??? Take jprz-rgw-hiliapr and prescription medicines only as told by [...] provider. Document Revised: 09/09/2019 Document Reviewed: 09/09/2019 [employer] Patient Education ?? 2020 [employer]. Ureteroscopy Ureteroscopy is a procedure to check [...] including vitamins, herbs, eye drops, creams, and hhfx-ojp-umfmozm medicines. ??? Any problems you or family [...] provider. Document Revised: 04/05/2018 Document Reviewed: 02/02/2017 [employer] Patient Education ?? 2020 [employer] Dietary Guidelines to Help Prevent Kidney [...] Rhubarb. ? Beets. ? Potato chips and nigerian fries. ? Nuts. ??? If you regularly take a diuretic medicine, make sure to eat at least 1???2 fruits or vegetables high in potassium each day. These include: ? Avocado. ? Banana. ? [place], prune, carrot, or tomato juice. ? Baked [...] Casseroles. Pizza. Lasagna. Frozen meals. Potato chips. Rwandan fries. Summary ??? You can reduce your [...] provider. Document Revised: 08/13/2019 Document Reviewed: 04/03/2017 [employer] Patient Education ?? 2019 [employer]. pseudoephedrine (SALAZAR moralez ee FED rin) Chlor [...] from your inner ears, called the eustachian (rfh-GETO-aqlx) tubes. Pseudoephedrine may also be used for [...] may report side effects to FDA at 7-919-LZU-6154. What other drugs will affect pseudoephedrine? Other drugs may interact with pseudoephedrine, including prescription and urgu-fzp-bcdjspf medicines, vitamins, and herbal products. Tell each [...] to ensure that the information provided by [employer]. ('[employer]') is accurate, up-to-date, and complete, but no guarantee is made to that effect. Drug information contained herein may be time sensitive. [employer] information has been compiled for use by healthcare practitioners and consumers in the [place] and therefore [employer] does not warrant that uses outside of the [place] are appropriate, unless specifically indicated otherwise. [employer]'s drug information does not endorse drugs, diagnose patients or recommend therapy. [employer] drug information is an informational resource designed [...] effective or appropriate for any given patient. [facility] does not assume any responsibility for any aspect of healthcare administered with the aid of information [facility] provides. The information contained herein is not intended to cover all possible uses, directions, precautions, warnings, drug interactions, allergic reactions, or adverse effects. If you have questions about the drugs you are taking, check with your doctor, nurse or pharmacist. Copyright 0640-9729 [employer]. Version: 7.03. Revision Date: 06/07/2015. Emergency Awareness [...] Assistance with quitting is available by contacting 0-197-KJXQ-NOW. This is a free resource providing counseling, [...] range between ( 0.0 and 7.0 ) [place] #: 0.47 K/uL -- Normal range between ( 0.16 and 1.00 ) [place]os #: 0.09 x10(3)/uL -- Normal range between ( 0.00 and 0.80 ) [place] %: 8.5 % -- Normal range between [...] was given the opportunity to ask questions. Patient/Coverer Name: Patient/Coverer Signature: Relationship to Patient: Clinician/Hospital Coverer Signature: Date: documented in this encounter Plan of Treatment Not on file documented as of this encounter Visit Diagnoses Not on filedocumented in this encounter Care Teams Real Estate Office Supervisor Relationship Specialty Start Date End Date Salima Mi DO [address] [facility] [address] [place] [address] (work) PCP - General Family Medicine 02/09/23 documented as of this encounter
--- OUTSIDE RECORDS SUMMARY | 2024-04-06 23:28 | XMS_ITS | Encounter Summary ---
Author Organization [employer] Address [address] [place] [address] Care Team Providers Care Canvas Worker Name Role Phone Salima Gonzáles DO Primary Care Provider [phone] Encounter Details Date Type Department Care Team (Late st Contact Info) Description 10/06/[address] [facility] Family Medicine [address] [place] [address] ProviderQuincy MD [address] [place] [phone] Social History Tobacco Use Types Packs/Day Years [...] Appointments Made #1 : Dr. Salima Gonzáles [facility] Follow-up Appointment Date #1 : 10/19/2020 11:00 EDT Contact Phone Number #1 : [phone] Follow-up Appointments Made #2 : [facility] Follow-up Appointment Date #2 : 01/06/2021 13:30 EDT Contact Phone Number #2 : [phone] Jacque Ledezma, COMPLETIONS MANAGER - 10/06/2020 11:44 EDT Electronically signed by [facility] Fixed Route Bus Operator Cerner at 08/23/2022 10:59 AM CDT documented in this encounter Plan of Treatment Not on file documented as of this encounter Visit Diagnoses Not on filedocumented in this encounter Care Teams Canvas Worker Relationship Specialty Start Date End Date Salima Gonzáles, [address] [facility] [address] [place] [address] PCP - General Family Medicine 02/09/23 documented as of this encounter
--- OUTSIDE RECORDS SUMMARY | 2024-04-06 23:28 | XMS_ITS | Encounter Summary ---
Author Organization [employer] Address [address] [place] [address] Care Team Providers Care Director Of Income Tax Name Role Phone AnujSalima somers Tate SWANN Primary Care Provider [phone] Encounter Details Date Type Department Care Team (Late st Contact Info) Description 10/05/2020 Transcribed Document [facility] Family Medicine [facility] [place] [address] ProviderQuincy MD [address] [place] [phone] Social History Tobacco Use Types Packs/Day Years [...] knee left. Allergies cefdinir (cefdinir, cefdinir) morphine Electronically signed by [facility] Conversion Briquetting Machine Operator Cerner at 08/23/2022 11:00 AM CDT documented in this encounter Plan of Treatment Not on file documented as of this encounter Visit Diagnoses Not on filedocumented in this encounter Care Teams Director Of Income Tax Relationship Specialty Start Date End Date Salima Gonzáles, [address] [address] PCP - General Family Medicine 02/09/23 documented as of this encounter
--- OUTSIDE RECORDS SUMMARY | 2024-04-06 23:28 | XMS_ITS | Encounter Summary ---
Author Organization [employer] Address [address] [place] [address] Care Team Providers Care Basin Cleaner Name Role Phone Unavailable Primary Care Provider Unavailabl e Encounter Details Date Type Department Care Team (Late st Contact Info) Description 10/05/2020 Historic Encounter [address] [address] ProviderScarlet Historical Social History Tobacco [...] - 110 mg/dL 10/05/2020 3:24 PM EDT [facility] Rayon Winder [id number] 10/05/2020 3:24 PM EDT [facility] Device SN [id number] 10/05/2020 3:24 PM EDT [facility] Device Comment1 Protocols Followed 10/05/2020 3:24 PM EDT [facility] Blood 10/05/2020 11:2 4 AM EDT 10/05/2020 3:25 PM EDT [facility] Historical Provider POINT OF CARE TEST ORDSamantha BRISCOE Final Result Performing Organization Address City/State/[facility] Co de Phone Number [facility] [address] [place] [address] documented in this encounter Visit Diagnoses Not on filedocumented in this encounter
--- OUTSIDE RECORDS SUMMARY | 2024-04-06 23:28 | XMS_ITS | Encounter Summary ---
Author Organization [employer] Address [address] [place] [address] Care Team Providers Care Writing Center Director Name Role Phone Unavailable Primary Care Provider Unavailabl e Encounter Details Date Type Department Care Team (Late st Contact Info) Description 10/03/2020 Historic Encounter [address] [address] Provider [facility] Historical Social History Tobacco Use Types Packs/Day [...] Associated Diagnosis Comments CBC W/ AUTO DIFF ([facility] DATA CONV) Routine 10/03/2020 7:07 PM EDT documented in this encounter Results * CBC W/ AUTO DIFF ([facility] B[facility] DATA CONV) (10/03/2020 7:07 PM EDT) [...] 7:07 PM EDT 10/03/2020 11:12 PM EDT [facility] Historical Provider LAB BLOOD ORDERABLES Fi nal Result [facility] [address] [phone] documented in this encounter Visit Diagnoses Not on filedocumented in this encounter
--- OUTSIDE RECORDS SUMMARY | 2024-04-06 23:28 | XMS_ITS | Encounter Summary ---
Author Organization [employer] Address [address] [place] [address] Care Team Providers Care Lab Support Technician Name Role Phone Salima Mi DO Primary Care Provider [phone] Encounter Details Date Type Department Care Team (Late st Contact Info) Description 10/03/2020 Transcribed Document [facility] [place] [address] [place] [address] ProviderQuincy MD [address] [place] [phone] Social History Tobacco Use Types Packs/Day Years [...] : 1965 Primary Care Provider SALIMA MI DO-[facility] History of Present Illness Ms. Aponte is a 54-year-old female with gks-nvlsrvt-epemszxrz diabetes, asthma and COPD with continued tobacco use, history of kidney stones, obesity. She was transferred to [facility] from [facility] on 10/03 for hydronephrosis and obstructing [...] needed Consult urology, n.p.o. after midnight Tamsulosin #Hdb-aqebmeg-rscrgxjeg diabetes Hold home medications Cover with SSI [...] 10/03/20 18:34:00 EDT, Full Code, Continuous Order documented in this encounter Plan of Treatment Not on file documented as of this encounter Visit Diagnoses Not on filedocumented in this encounter Care Teams Lab Support Technician Relationship Specialty Start Date End Date Salima Mi, 8 [facility] [address] [place] [address] PCP - General Family Medicine 02/09/23 documented as of this encounter
--- OUTSIDE RECORDS SUMMARY | 2024-04-06 23:28 | XMS_ITS | Encounter Summary ---
Author Organization [employer] Address [address] [place] [address] Care Team Providers Care Dietetics Director Name Role Phone Salima Gonzáles DO Primary Care Provider [phone] Encounter Details Date Type Department Care Team (Late st Contact Info) Description 10/05/2020 Transcribed Document [facility] [place] [address] [place] [address] ProviderQuincy MD [address] [place] [address] Social History Tobacco Use Types Packs/Day [...] Bates Virtual RN - 10/05/2020 14:28 EDT Electronically signed by Nuzhat Barahona Conversion Account Services Coordinator Cerner at 08/23/2022 11:04 AM CDT documented in this encounter Plan of Treatment Not on file documented as of this encounter Visit Diagnoses Not on filedocumented in this encounter Care Teams Dietetics Director Relationship Specialty Start Date End Date Salima Gonzáles DO [address] [place] [address] PCP - General Family Medicine 02/09/23 documented as of this encounter
--- OUTSIDE RECORDS SUMMARY | 2024-04-06 23:28 | XMS_ITS | Encounter Summary ---
Author Organization [employer] Address [address] [place] [address] Care Team Providers Care Imaging Analyst Name Role Phone Salima Gonzáles DO Primary Care Provider [phone] Encounter Details Date Type Department Care Team (Late st Contact Info) Description 10/04/2020 Transcribed Document [facility] [place] Family Medicine [address] [place] [address] ProviderQuincy MD [address] [place] [address] Social History Tobacco Use Types Packs/Day [...] on filedocumented in this encounter Care Teams Imaging Analyst Relationship Specialty Start Date End Date Salima Gonzáles DO [address] [id number] PCP - General Family Medicine 02/09/23 documented as of this encounter
--- OUTSIDE RECORDS SUMMARY | 2024-04-06 23:28 | XMS_ITS | Encounter Summary ---
Author Organization [email or web address] Address [address] [place] [address] Care Team Providers Care Painter Bottom Name Role Phone Salima Gonzáles Primary Care Provider [phone] Encounter Details Date Type Department Care Team (Late st Contact Info) Description 10/04/2020 Transcribed Document [facility] [place] Family Medicine [address] [place] [address] ProviderQuincy MD [address] [place] [address] Social History Tobacco Use Types Packs/Day [...] left the operating room in satisfactory condition. /[id number] Gatito Menendez MD [facility]/AQ / [facility] / MODL /[id number] Electronically signed by [place], [facility] Conversion Assisted Living Associate Cerner at 08/23/2022 10:57 AM CDT documented in this encounter Plan of Treatment Not on file documented as of this encounter Visit Diagnoses Not on filedocumented in this encounter Care Teams Painter Bottom Relationship Specialty Start Date End Date Salima Gonzáles, DO 8 [facility] [address] [place] [address] PCP - General Family Medicine 02/09/23 documented as of this encounter
--- OUTSIDE RECORDS SUMMARY | 2024-04-06 23:28 | XMS_ITS | Encounter Summary ---
Author Organization [employer] Address [address] [place] [address] Care Team Providers Care Donor Technician Name Role Phone Salima Gonzáles Primary Care Provider [phone] Encounter Details Date Type Department Care Team (Late st Contact Info) Description 10/12/2020 Transcribed Document [facility] [place] [address] ProviderQuincy MD [address] [place] [phone] Social History Tobacco Use Types Packs/Day Years [...] On: 10/12/2020 14:42 EDT by TEMI LAMBERT, Hogshead Head Matcher Primary Insurance Authorization Authorization and Policy Numbers : Insurance 1 Health Plan: [facility] MEDICARE REPL Policy Number: [id number] Authorization Number: Insurance Primary Name : [employer] MEDICARE REPL Policy Number: [id number] Authorization Status-Primary : Denied Reference Number-Primary : [id number] Authorized Service Begin Date-Primary : 10/03/2020 EDT Authorization Comments-Primary : Rec fax from [place] 10/12/20 States admission has been denied. Fax [...] 10/09/2020 15:11) Comment 5: Clinicals faxed via [employer] for IP approval (DEISY LIRA RN 10/05/2020 14:13) Comment 6: Clinicals submitted via [employer] for IP approval (DEISY LIRA RN 10/04/2020 08:24) TEMI LAMBERT, Hogshead Head Matcher - 10/12/2020 14:42 EDT Electronically signed by [place] [facility] Conversion Reset Merchandiser Cerner at 08/23/2022 10:49 AM CDT documented in this encounter Plan of Treatment Not on file documented as of this encounter Visit Diagnoses Not on filedocumented in this encounter Care Teams Donor Technician Relationship Specialty Start Date End Date Salima Gonzáles, 8 [facility] [address] [place] [address] PCP - General Family Medicine 02/09/23 documented as of this encounter
--- OUTSIDE RECORDS SUMMARY | 2024-04-06 23:28 | XMS_ITS | Encounter Summary ---
Author Organization [employer] Address [address] [place] [address] Care Team Providers Care Envelope Cutter Name Role Phone Salima Gonzáles Primary Care Provider [phone] Encounter Details Date Type Department Care Team (Late st Contact Info) Description 10/11/2020 Transcribed Document [facility] [place] Family Medicine [facility] [place] [address] ProviderQuincy MD [address] [place] [phone] Social History Tobacco Use Types Packs/Day Years [...] Policy Numbers : Insurance 1 Health Plan: [employer] MEDICARE REPL Policy Number: [id number] Authorization Number: Insurance Primary Name : [employer]M MEDICARE REPL Policy Number: [id number] Authorization Status-Primary : Awaiting callback Reference Number-Primary : [id number] Authorized Service Begin Date-Primary : 10/03/2020 EDT Authorization Comments-Primary : Faxed dc summary via [employer] Historical Authorization Comments-Primary : Comment 1: Remains pending per [employer] (PING HOFFMANN RN 10/11/2020 12:11) Comment 2: Email sent to madelyn (PING HOFFMANN RN 10/09/2020 15:11) Comment 3: Clinicals faxed via [employer] for IP approval (DEISY LIRA RN 10/05/2020 14:13) Comment 4: Clinicals submitted via [employer] for IP approval (DEISY LIRA RN 10/04/2020 08:24) PING HOFFMANN RN - 10/11/2020 12:12 EDT documented in this encounter Plan of Treatment Not on file documented as of this encounter Visit Diagnoses Not on filedocumented in this encounter Care Teams Envelope Cutter Relationship Specialty Start Date End Date Salima Gonzáles, 8 [facility] [address] [place] [address] PCP - General Family Medicine 02/09/23 documented as of this encounter
--- OUTSIDE RECORDS SUMMARY | 2024-04-06 23:28 | XMS_ITS | Encounter Summary ---
Author Organization [employer] Address [address] [place] [address] Care Team Providers Care Wood Heel Flap Inserter Name Role Phone Salima Gonzáles Primary Care Provider [phone] Encounter Details Date Type Department Care Team (Late st Contact Info) Description 10/23/2020 Transcribed Document [facility] [place] [facility] [place] [address] ProviderQuincy MD [address] [place] [phone] Social History Tobacco Use Types Packs/Day Years [...] Policy Numbers : Insurance 1 Health Plan: [employer] MEDICARE REPL Policy Number: [id number] Authorization Number: Insurance Primary Name : [facility] MEDICARE REPL Policy Number: [id number] Authorization Status-Primary : Denied Auth/Referral Contact Name-Primary : DC+ Reference Number-Primary : [id number] Authorized Service Begin Date-Primary : 10/03/2020 EDT Authorization Comments-Primary : Yeison coello to bill under part b. emailed to billing. Historical Authorization Comments-Primary : Comment 1: Discharge date and summary faxed. (Katia Pratt, Claims Specialist 10/13/2020 15:02) Comment 2: Email to David/Mary/MOSHE (JUSTEN HARTLEY, Rn-Utilization Review 10/13/2020 10:20) Comment 3: Rec fax from [place] 10/12/20 States admission has been denied. Fax to Jacque Tabor (TEMI LAMBERT, Social Welfare Clerk 10/12/2020 14:42) Comment 4: Per Jinny remains pending (JACQUE HOFFMANN RN 10/12/2020 12:06) Comment 5: Faxed dc summary via [employer] (JACQUE HOFFMANN RN 10/11/2020 12:12) Comment 6: Remains pending per [employer] (JACQUE HOFFMANN RN 10/11/2020 12:11) Comment 7: Email sent to jinny (JACQUE HOFFMANN RN 10/09/2020 15:11) Comment 8: Clinicals faxed via [employer] for IP approval (DEISY LIRA RN 10/05/2020 14:13) Comment 9: Clinicals submitted via [employer] for IP approval (DEISY LIRA RN 10/04/2020 08:24) JACQUE HOFFMANN RN - 10/23/2020 12:34 EDT Electronically signed by Alec Barahona Conversion Supervisor Forming Department Cerner at 08/23/2022 10:49 AM CDT documented in this encounter Plan of Treatment Not on file documented as of this encounter Visit Diagnoses Not on filedocumented in this encounter Care Teams Wood Heel Flap Inserter Relationship Specialty Start Date End Date Salima Gonzáles, DO [address] [place] [address] PCP - General Family Medicine 02/09/23 documented as of this encounter
--- OUTSIDE RECORDS SUMMARY | 2024-04-06 23:28 | XMS_ITS | Encounter Summary ---
Author Organization [employer] Address [address] [place] [address] Care Team Providers Care Non Licensed Operator Name Role Phone Unavailable Primary Care Provider Unavailabl e Encounter Details Date Type Department Care Team (Late st Contact Info) Description 10/04/2020 Historic Encounter [facility] [address] [place] [address] Provider, [facility] Historical Social History Tobacco Use Types [...] Priority Date/Time Associated Diagnosis Comments MAGNESIUM LEVEL ([facility] DATA CONV) Routine 10/04/2020 6:54 AM EDT documented in this encounter Results * MAGNESIUM LEVEL ([facility] DATA CONV) (10/04/2020 6:54 AM EDT) Magnesium Level 1.9 1.5 - 2.4 mg/dL 10/04/2020 11:37 AM EDT Blood 10/04/2020 6:54 AM EDT 10/04/2020 11:13 AM EDT [facility] Historical Provider LAB BLOOD ORDERABLES Fi nal Result [facility] 1 [place], [place] [address] [phone] documented in this encounter Visit Diagnoses Not on filedocumented in this encounter
--- OUTSIDE RECORDS SUMMARY | 2024-04-06 23:28 | XMS_ITS | Encounter Summary ---
Author Organization [employer] Address [address] [place] [address] Care Team Providers Care Medical Equipment Repair Technician Name Role Phone Unavailable Primary Care Provider Unavailabl e Encounter Details Date Type Department Care Team (Late st Contact Info) Description 10/03/2020 Historic Encounter [address] [address] Provider [facility] Historical Social History Tobacco Use [...] Associated Diagnosis Comments CMP COMPREHENSIVE METABOLIC PANEL ([facility] DATA CONV) Routine 10/03/2020 7:07 PM EDT documented in this encounter Results * (ABNORMAL) CMP COMPREHENSIVE METABOLIC PANEL ([facility] BK DATA CONV) (10/03/2020 [...] 106 mg/dL 10/03/2020 11:32 PM EDT Comment: [employer] has become aware of sulfasalazine and sulfapyridine [...] Units/Lit er 10/03/2020 11:32 PM EDT Comment: [employer] has become aware of sulfasalazine and sulfapyridine [...] Units/Lit er 10/03/2020 11:32 PM EDT Comment: [employer] has become aware of sulfasalazine and sulfapyridine [...] PM EDT 10/03/2020 11:[address] [facility] Historical Provider LAB BLOOD ORDERABLES Fi nal Result [facility] [address] [phone] documented in this encounter Visit Diagnoses Not on filedocumented in this encounter
--- OUTSIDE RECORDS SUMMARY | 2024-04-06 23:28 | XMS_ITS | Encounter Summary ---
Author Organization [employer] Address [address] [place] [address] Care Team Providers Care Claims Administrator Name Role Phone Salima Gonzáles DO Primary Care Provider [phone] Encounter Details Date Type Department Care Team (Late st Contact Info) Description 10/05/2020 Transcribed Document [facility] [place] [address] [place] [address] ProviderQuincy MD [address] [place] [address] Social History Tobacco Use Types Packs/Day [...] Rounds BENI HDEZ - 10/06/2020 15:31 EDT Electronically signed by Nuzhat Barahona Conversion Supervisor Telephone Clerks Cerner at 08/23/2022 11:17 AM CDT documented in this encounter Plan of Treatment Not on file documented as of this encounter Visit Diagnoses Not on filedocumented in this encounter Care Teams Claims Administrator Relationship Specialty Start Date End Date Salima Gonzáles DO 8 [facility] [address] [place] [address] PCP - General Family Medicine 02/09/23 documented as of this encounter
--- OUTSIDE RECORDS SUMMARY | 2024-04-06 23:28 | XMS_ITS | Encounter Summary ---
Author Organization [employer] Address [address] [place] [address] Care Team Providers Care Nailing Machine Operator Automatic Name Role Phone Unavailable Primary Care Provider Unavailabl e Encounter Details Date Type Department Care Team (Late st Contact Info) Description 10/03/2020 Historic Encounter [address] [address] Provider, [facility] Historical Social History Tobacco Use Types [...] - 110 mg/dL 10/04/2020 2:41 AM EDT [facility] Marketing Project Manager [id number] 10/04/2020 2:41 AM EDT [facility] Device SN [id number] 10/04/2020 2:41 AM EDT [facility] Blood 10/03/2020 10:4 1 PM EDT 10/04/2020 3:02 AM EDT [facility] Historical Provider POINT OF CARE TEST ORDE RABLES Final Result [facility] [address] [phone] documented in this encounter Visit Diagnoses Not on filedocumented in this encounter
--- OUTSIDE RECORDS SUMMARY | 2024-04-06 23:28 | XMS_ITS | Encounter Summary ---
Author Organization [employer] Address [address] [place] [address] Care Team Providers Care Sfdc Architect Name Role Phone Salima Gonzáles Primary Care Provider [phone] Encounter Details Date Type Department Care Team (Late st Contact Info) Description 10/11/2020 Transcribed Document [facility] [place] [facility] [place] [address] ProviderQuincy MD [address] [place] [phone] Social History Tobacco Use Types Packs/Day Years [...] Policy Numbers : Insurance 1 Health Plan: [facility] MEDICARE REPL Policy Number: [id number] Authorization Number: Insurance Primary Name : [employer] MEDICARE REPL Policy Number: [id number] Authorization Status-Primary : Awaiting callback Reference Number-Primary : [id number] Authorized Service Begin Date-Primary : 10/03/2020 EDT Authorization Comments-Primary : Remains pending per [employer] Historical Authorization Comments-Primary : Comment 1: Email sent to madelyn (PING HOFFMANN RN 10/09/2020 15:11) Comment 2: Clinicals faxed via [employer] for IP approval (DEISY LIRA RN 10/05/2020 14:13) Comment 3: Clinicals submitted via [employer] for IP approval (DEISY LIRA RN 10/04/2020 08:24) PING HOFFMANN RN - 10/11/2020 12:11 EDT Electronically signed by [place] [facility] Conversion Television And Radio Repairer Cerner at 08/23/2022 11:09 AM CDT documented in this encounter Plan of Treatment Not on file documented as of this encounter Visit Diagnoses Not on filedocumented in this encounter Care Teams Sfdc Architect Relationship Specialty Start Date End Date Salima Gonzáles DO [address] [address] PCP - General Family Medicine 02/09/23 documented as of this encounter
--- OUTSIDE RECORDS SUMMARY | 2024-04-06 23:28 | XMS_ITS | Encounter Summary ---
Author Organization [employer] Address [address] [place] [address] Care Team Providers Care Speech Therapy Assistant Name Role Phone Salima Gonzáles Primary Care Provider [phone] Encounter Details Date Type Department Care Team (Late st Contact Info) Description 10/04/2020 Transcribed Document [facility] [place] Family Medicine [address] [place] [address] ProviderQuincy MD [address] [place] [address] [phone] Social History Tobacco Use Types Packs/Day Years [...] Left renal calculus. PLAN: Ureteroscopy with laser. /[id number] Gatito Menendez MD FP/AQ / FP / MODL /[id number] Electronically signed by [place] [facility] Conversion Enamel Buffer Cerner at 08/23/2022 11:00 AM CDT documented in this encounter Plan of Treatment Not on file documented as of this encounter Visit Diagnoses Not on filedocumented in this encounter Care Teams Speech Therapy Assistant Relationship Specialty Start Date End Date Salima Gonzáles, [address] [address] PCP - General Family Medicine 02/09/23 documented as of this encounter
--- OUTSIDE RECORDS SUMMARY | 2024-04-06 23:28 | XMS_ITS | Encounter Summary ---
Author Organization [employer] Address [address] [place] [address] Care Team Providers Care Liquefaction Supervisor Name Role Phone Unavailable Primary Care Provider Unavailabl e Encounter Details Date Type Department Care Team (Late st Contact Info) Description 10/05/2020 Historic Encounter [address] [address] ProviderScarlet Historical Social History Tobacco [...] 6:30 AM EDT 10/05/2020 11:22 AM EDT [facility] Historical Provider LAB BLOOD ORDERABLES Fi nal Result Performing Organization Address City/State/[facility] Co de Phone Number [facility] [address] [phone] documented in this encounter Visit Diagnoses Not on filedocumented in this encounter
--- OUTSIDE RECORDS SUMMARY | 2024-04-06 23:28 | XMS_ITS | Encounter Summary ---
Author Organization [employer] Address [address] [place] [address] Care Team Providers Care Digital Developer Name Role Phone Unavailable Primary Care Provider Unavailabl e Encounter Details Date Type Department Care Team (Late st Contact Info) Description 10/04/2020 Historic Encounter [address] [address] Provider [facility] Historical Social History Tobacco Use Types [...] Associated Diagnosis Comments CBC W/ AUTO DIFF ([facility] DATA CONV) Routine 10/04/2020 6:54 AM EDT documented in this encounter Results * (ABNORMAL) CBC W/ AUTO DIFF ([facility] BKR DATA CONV) (10/04/2020 6:54 AM [...] 6:54 AM EDT 10/04/2020 11:13 AM EDT [facility] Historical Provider LAB BLOOD ORDERABLES Fi nal Result [facility] [address] [phone] documented in this encounter Visit Diagnoses Not on filedocumented in this encounter
--- OUTSIDE RECORDS SUMMARY | 2024-04-06 23:28 | XMS_ITS | Encounter Summary ---
Author Organization [employer] Address [address] [place] [address] Care Team Providers Care Resort Desk Clerk Name Role Phone Salima Gonzáles Primary Care Provider [phone] Encounter Details Date Type Department Care Team (Late st Contact Info) Description 10/05/2020 Transcribed Document [facility] [place] Family Medicine [address] [place] [address] ProviderQuincy MD [address] [place] [address] Social History Tobacco Use Types Packs/Day [...] Bates Virtual RN - 10/05/2020 16:31 EDT documented in this encounter Plan of Treatment Not on file documented as of this encounter Visit Diagnoses Not on filedocumented in this encounter Care Teams Resort Desk Clerk Relationship Specialty Start Date End Date Salima Gonzáles, [address] [facility] [address] [place] [address] PCP - General Family Medicine 02/09/23 documented as of this encounter
--- OUTSIDE RECORDS SUMMARY | 2024-04-06 23:28 | XMS_ITS | Encounter Summary ---
Author Organization [employer] Address [address] [place] [address] Care Team Providers Care Chief Radiologic Technologist Name Role Phone Unavailable Primary Care Provider Unavailabl e Encounter Details Date Type Department Care Team (Late st Contact Info) Description 10/04/2020 Historic Encounter [address] [address] ProviderScarlet Historical Social History Tobacco [...] - 110 mg/dL 10/04/2020 9:53 AM EDT [facility] Certified Endoscopy Technician [id number] 10/04/2020 9:53 AM EDT [facility] Device SN [id number] 10/04/2020 9:53 AM EDT [facility] Device Comment1 No action Require 10/04/2020 9:53 AM EDT [facility] Blood 10/04/2020 5:53 AM EDT 10/04/2020 9:54 AM EDT Sle Historical Provider POINT OF CARE TEST ORDE LUIS FELIPE Final Result Performing Organization Address City/State/[facility] Co de Phone Number [facility] [address] [place] [address] documented in this encounter Visit Diagnoses Not on filedocumented in this encounter
--- OUTSIDE RECORDS SUMMARY | 2024-04-06 23:28 | XMS_ITS | Encounter Summary ---
Author Organization [employer] Address [address] [place] [address] Care Team Providers Care Commissions Analyst Name Role Phone Unavailable Primary Care Provider Unavailabl e Encounter Details Date Type Department Care Team (Late st Contact Info) Description 10/04/2020 Historic En[address] [address] Provider, [facility] Historical Social History Tobacco Use Types Packs/Day [...] Priority Date/Time Associated Diagnosis Comments AUTOMATED DIFFERENTIAL ([facility] DATA CONV) Routine 10/04/2020 6:54 AM EDT documented in this encounter Results * AUTOMATED DIFFERENTIAL ([facility] DATA CONV) (10/04/2020 6:54 AM EDT) Neut% 46.9 34.0 - 71.0 % 10/04/2020 11:18 AM EDT Lymph% 41.8 19.3 - 53.1 % 10/04/2020 11:18 AM EDT [place]% 8.5 3.0 - 9.0 % 10/04/2020 11:18 AM EDT Eos% 1.6 0.0 - 7.0 % 10/04/2020 11:18 AM EDT Baso% 0.7 0.0 - 1.5 % 10/04/2020 11:18 AM EDT IG% 0.50 0.00 - 0.60 % 10/04/2020 11:18 AM EDT Neut# 2.59 1.56 - 6.13 K/uL 10/04/2020 11:18 AM EDT Lymph# 2.31 1.00 - 3.90 x10(3)/uL 10/04/2020 11:18 AM EDT [place]# 0.47 0.16 - 1.00 K/uL 10/04/2020 11:18 AM EDT Eos# 0.09 0.00 - 0.80 x10(3)/uL 10/04/2020 11:18 AM EDT Baso# 0.04 0.00 - 0.20 x10(3)/uL 10/04/2020 11:18 AM EDT IG# 0.03 0.00 - 0.05 x10(3)/uL 10/04/2020 11:18 AM EDT Blood 10/04/2020 6:54 AM EDT 10/04/2020 11:13 AM EDT Narrative [facility] - 10/04/2020 11:21 AM EDT Added by Discern Expert us Sle Historical Provider LAB BLOOD ORDERABLES Fi nal Result Performing Organization Address City/State/[facility] Co de Phone Number [facility] [address] [place] [address], [facility] [phone] documented in this encounter Visit Diagnoses Not on filedocumented in this encounter
--- OUTSIDE RECORDS SUMMARY | 2024-04-06 23:28 | XMS_ITS | Encounter Summary ---
Author Organization [employer] Address [address] [place] [address] Care Team Providers Care Electric Hoist Operator Name Role Phone Salima Gonzáles DO Primary Care Provider [phone] Encounter Details Date Type Department Care Team (Late st Contact Info) Description 10/04/2020 Transcribed Document [facility] [place] [address] [place] [address] ProviderQuincy MD [address] [place] [address] Social History Tobacco Use Types Packs/Day [...] Kate MD - 10/04/2020 1:16 PM CDT [facility] Main OR IntraOp Summary Primary Physician: ANNABEL ZAMBRANO MD-URO Finalized Date/Time: 10/10/20 09:57:38 Pt. Name: JACOB VASQUEZAMBIKA D.O.B./Sex: 1965 Female Med Rec #: [id number] Physician: SUREKHA ARGUELLES MD Financial #: [id number] Pt. Type: I Room/Bed: [facility]/ Admit/Disch: 10/03/20 18:06:00 - 10/05/20 16:59:00 Institution: [facility] IntraOp Case Attendance Entry 1 Entry 2 Entry 3 Case Attendee ANNABEL ZAMBRANO MD-URO Neha Duarte, Mendel Pierce, RN Role Performed Surgeon/Proceduralist, Slide Forming Machine Operator, First Slide Forming Machine Operator, Second First Time In 10/04/20 13:03:00 10/04/20 13:03:00 10/04/20 13:03:00 Time Out 10/04/20 13:54:00 10/04/20 13:54:00 10/04/20 13:54:00 Procedure Ureteroscopy(Left) Ureteroscopy(Left) Ureteroscopy(Left) Other Attendee LASER Superficial Wound Closed By: Last Modified By: Neha Duarte, Neha Fleming, Neha Fleming Rn 10/04/20 13:54:29 10/04/20 13:54:29 10/04/20 13:54:29 Entry 4 Entry 5 Case Attendee Prema Rojas, VERONICA AU MD-ANS Compensation Associate Role Performed Scrub, First Anesthesiologist Time In 10/04/20 13:03:00 10/04/20 13:03:00 Time Out 10/04/20 13:54:00 10/04/20 13:54:00 Procedure Ureteroscopy(Left) Ureteroscopy(Left) Other Attendee Superficial Wound Closed By: Last Modified By: Neha Duarte Rn Moore, Kimberly A, Rn 10/04/20 13:54:29 10/04/20 13:54:29 [facility] IntraOp Case Attendance Audit 10/04/20 13:54:29 Coke Worker: [id number] Modifier: [id number] 1 <+> Time Out 1 <*> Procedure Ureteroscopy(Left) 2 <+> Time Out 2 <*> Procedure Ureteroscopy(Left) 3 <+> Time Out 3 <*> Procedure Ureteroscopy(Left) 4 <+> Time Out 4 <*> Procedure Ureteroscopy(Left) 5 <+> Time Out 5 <*> Procedure Ureteroscopy(Left) 10/04/20 13:43:04 Coke Worker: [id number] Modifier: [id number] <+> 1 Time In <+> 1 Procedure 2 <+> Time In 2 <*> Procedure Ureteroscopy(Left) 3 <+> Time In 3 <*> Procedure Ureteroscopy(Left) 4 <+> Time In 4 <*> Procedure Ureteroscopy(Left) 5 <+> Time In 5 <*> Procedure Ureteroscopy(Left) [facility] IntraOp Case Times Entry 1 Patient In Room Time 10/04/20 13:03:00 Out Room Time 10/04/20 13:54:00 Anesthesia Start Time 10/04/20 13:03:00 Stop Time 10/04/20 13:54:00 Surgery / Procedure Times Start Time 10/04/20 13:16:00 Stop Time 10/04/20 13:47:00 Last Modified By: Neha Duarte Rn 10/04/20 13:54:29 [facility] IntraOp Case Times Audit 10/04/20 13:54:29 Coke Worker: [id number] Modifier: [id number] <+> 1 Out Room Time <+> 1 Stop Time 10/04/20 13:48:00 Coke Worker: [id number] Modifier: [id number] <+> 1 Stop Time [facility] IntraOp Departure from OR Entry 1 Integumentary Assessment Integumentary WDL Assessment WDL Transfer/Handoff Transfer to PACU Phase I Handoff Method Bedside/Face to face, Phone call, Online nursing summary Post-op Transport Stretcher/Gurney Via Patient Transport Neha Duarte Rn, Accompanied by VERONICA AU MD-ANS Last Modified By: Neha Duarte Rn 10/04/20 13:38:09 [facility] IntraOp Fire Risk Assessment Entry 1 Fire [...] Modified By: Neha Duarte Rn 10/04/20 13:38:19 [facility] IntraOp General Case Software Architect 1 Case Information OR Cysto 01 [facility] Case Level 1 Room Verified Yes Wound Class II - Clean-Contaminated Specialty Urology Anesthesia Type General ASA Class 3E Diagnosis Preop Diagnosis LEFT RENAL STONE Postop Same As Preop No Postop Diagnosis SEE MD POST OP NOTES Last Modified By: Neha Duarte Rn 10/04/20 13:41:52 [facility] IntraOp Implant Log Entry 1 Type Implant (Synthetic) Implant Log Implant Type Other Implant STENT URET BRAID + Identification [id number] Description Implant Quantity 1 Implant Site LEFT URETER Implant Onemo Identification Sci:Urology/Gynecology In Store Demonstrator Name: Implant [id number] Identification Catalog Number Implant Expiration 03/25/23 Date Tissue Implant Last Modified By: Neha Duarte Rn 10/04/20 13:44:42 [facility] IntraOp Intraoperative Assessment Entry 1 Handoff Method [...] Modified By: Neha Duarte Rn 10/04/20 13:42:00 [facility] IntraOp Patient Positioning Entry 1 Procedure Ureteroscopy(Left) [...] Modified By: Neha Duarte Rn 10/04/20 13:42:19 [facility] IntraOp Sign In Entry 1 Patient, Site, [...] Modified By: Neha Duarte Rn 10/04/20 13:42:22 [facility] IntraOp Sign Out Entry 1 RN Confirmation [...] Modified By: Neha Duarte Rn 10/04/20 13:42:31 [facility] IntraOp Skin Prep Entry 1 Procedure Ureteroscopy(Left) Prescribed N/A Pre-Surgical Prep Completed Prep Area genitalia Intraop Prep Integumentary WDL Assessment WDL Prep Agents Betadine solution Prep by Mendel Borrego RN Hair Removal Methods No hair removal performed Last Modified By: Neha Duarte Rn 10/04/20 13:42:55 [facility] Intra Surgical Procedures Entry 1 Procedure Ureteroscopy Modifiers Left Additional URETEROSCOPY WITH LASER Procedure LEFT Description Primary Procedure Yes Primary Surgeon ANNABEL ZAMBRANO MD-URO Start 10/04/20 13:16:00 Stop 10/04/20 13:47:00 Anesthesia Type General Specialty Urology Wound Class II - Clean-Contaminated Last Modified By: Neha Duarte Rn 10/04/20 13:48:02 [facility] Intra Surgical Procedures Audit 10/04/20 13:48:02 Coke Worker: [id number] Modifier: [id number] <+> 1 Stop [facility] IntraOP Time Out Entry 1 Procedure to [...] [id number] Correct Billing Electronically signed by [facility] Conversion Kier Pleater Cerner at 08/23/2022 11:10 AM CDT documented in this encounter Plan of Treatment Not on file documented as of this encounter Visit Diagnoses Not on filedocumented in this encounter Care Teams Electric Hoist Operator Relationship Specialty Start Date End Date Salima Gonzáles, 8 [facility] [address] [place] [address] PCP - General Family Medicine 02/09/23 documented as of this encounter
--- OUTSIDE RECORDS SUMMARY | 2024-04-06 23:28 | XMS_ITS | Encounter Summary ---
Author Organization [employer] Address [address] [place] [address] Care Team Providers Care Service Establishment Attendant Name Role Phone Salima Gonzáles Primary Care Provider [phone] Encounter Details Date Type Department Care Team (Late st Contact Info) Description 10/04/2020 Transcribed Document [facility] [place] [address] [place] [address] ProviderQuincy MD [address] [place] [address] Social History Tobacco Use Types Packs/Day [...] Quincy ProviderMD - 10/04/2020 2:00 AM CDT Pressure Testing Technician Details Entered On: 10/04/2020 4:12 EDT Performed [...] on filedocumented in this encounter Care Teams Service Establishment Attendant Relationship Specialty Start Date End Date Salima Gonzáles DO [address] [address] PCP - General Family Medicine 02/09/23 documented as of this encounter
--- OUTSIDE RECORDS SUMMARY | 2024-04-06 23:28 | XMS_ITS | Encounter Summary ---
Author Organization [employer] Address [address] [place] [address] Care Team Providers Care Finance Admin Name Role Phone Salima Gonzáles Primary Care Provider [phone] Encounter Details Date Type Department Care Team (Late st Contact Info) Description 10/04/2020 Transcribed Document [facility] [place] [address] [place] [address] ProviderQuincy MD [address] [place] [address] Social History Tobacco Use Types Packs/Day [...] on filedocumented in this encounter Care Teams Finance Admin Relationship Specialty Start Date End Date Salima Gonzáles, [address] [address] PCP - General Family Medicine 02/09/23 documented as of this encounter
--- OUTSIDE RECORDS SUMMARY | 2024-04-06 23:28 | XMS_ITS | Encounter Summary ---
Author Organization [employer] Address [address] [place] [address] Care Team Providers Care Hunter Guide Name Role Phone Unavailable Primary Care Provider Unavailabl e Encounter Details Date Type Department Care Team (Late st Contact Info) Description 10/05/2020 Historic Encounter [address] [address] ProviderScarlet Historical Social History Tobacco [...] - 110 mg/dL 10/05/2020 10:19 AM EDT [facility] Patient Access Specialist [id number] 10/05/2020 10:19 AM EDT [facility] Device SN [id number] 10/05/2020 10:19 AM EDT [facility] Device Comment1 Protocols Followed 10/05/2020 10:19 AM EDT [facility] Blood 10/05/2020 6:19 AM EDT 10/05/2020 10:20 AM EDT Sle Historical Provider POINT OF CARE TEST ORDE LUIS FELIPE Final Result Performing Organization Address City/State/[facility] Co de Phone Number [facility] [address] [place] [address] documented in this encounter Visit Diagnoses Not on filedocumented in this encounter
--- OUTSIDE RECORDS SUMMARY | 2024-04-06 23:28 | XMS_ITS | Encounter Summary ---
Author Organization [employer] Address [address] [place] [address] Care Team Providers Care Roving Hauler Name Role Phone Unavailable Primary Care Provider Unavailabl e Encounter Details Date Type Department Care Team (Late st Contact Info) Description 10/04/2020 Historic Encounter [address] [address] ProviderScarlet Historical Social History Tobacco [...] - 110 mg/dL 10/04/2020 4:[address] [facility] Automotive Services Manager [id number] 10/04/2020 4:[address] [facility] Device SN [id number] 10/04/2020 4:[address] [facility] Device Comment1 Notified Nurse RBV 10/04/2020 4:[address] [facility] Blood 10/04/2020 12:2 9 PM EDT 10/04/2020 4:32 PM EDT [facility] Historical Provider POINT OF CARE TEST MARIMAR BRISCOE Final Result Performing Organization Address City/State/[facility] Co de Phone Number [facility] [address] [phone] documented in this encounter Visit Diagnoses Not on filedocumented in this encounter
--- OUTSIDE RECORDS SUMMARY | 2024-04-06 23:28 | XMS_ITS | Encounter Summary ---
Author Organization [employer] Address [address] [place] [address] Care Team Providers Care Filling Layer Up Name Role Phone Salima Gonzáles Primary Care Provider [phone] Encounter Details Date Type Department Care Team (Late st Contact Info) Description 10/05/2020 Transcribed Document [facility] [place] [address] [place] [address] ProviderQuincy MD [address] [place] [address] Social History Tobacco Use Types Packs/Day [...] On: 10/05/2020 14:02 EDT by EVONNE GABRIEL RN-Credit Administration Specialist Final Discharge Planning Discharge Arrangements : Patient Post-Acute Information Patient Name: AMBIKA PIERRE Gender: Female : 63 Age: 54 Years No Post-Acute Placement(s) Listed No Post-Acute Service(s) Listed No [place] Referral(s) Listed Transportation Needs : Family/Friend Follow Up Appointment Scheduled : Yes Is Patient High/Moderate Readmission Risk? : No Discharge To Care Management : Home/Residential/Intermediate or Self Care -01 EVONNE GABRIEL, RN-Credit Administration Specialist - 10/05/2020 14:02 EDT Electronically signed by [facility] Conversion Produce Team Lead Cerner at 08/23/2022 11:08 AM CDT documented in this encounter Plan of Treatment Not on file documented as of this encounter Visit Diagnoses Not on filedocumented in this encounter Care Teams Filling Layer Up Relationship Specialty Start Date End Date Salima Gonzáles, 8 [facility] [address] [place] [address] PCP - General Family Medicine 02/09/23 documented as of this encounter
--- OUTSIDE RECORDS SUMMARY | 2024-04-06 23:28 | XMS_ITS | Encounter Summary ---
Author Organization [employer] Address [address] [place] [address] Care Team Providers Care Cone Sewer Name Role Phone Unavailable Primary Care Provider Unavailabl e Encounter Details Date Type Department Care Team (Late st Contact Info) Description 10/04/2020 Historic Encounter [address] [address] ProviderScarlet Historical Social History Tobacco [...] - 110 mg/dL 10/04/2020 6:[address] [facility] Psychologist Personnel [id number] 10/04/2020 6:[address] [facility] Device SN [id number] 10/04/2020 6:[address] [facility] Device Comment1 No action Require 10/04/2020 6:[address] [facility] Blood 10/04/2020 2:24 PM EDT 10/04/2020 6:25 PM EDT [facility] Historical Provider POINT OF CARE TEST ORDSamantha BRISCOE Final Result Performing Organization Address City/State/[facility] Co de Phone Number [facility] [address] [place] [address] documented in this encounter Visit Diagnoses Not on filedocumented in this encounter
--- OUTSIDE RECORDS SUMMARY | 2024-04-06 23:28 | XMS_ITS | Encounter Summary ---
Author Organization [employer] Address [address] [place] [address] Care Team Providers Care Alterations Workroom Clerk Name Role Phone Anujlizbet Salima Ybarra DO Primary Care Provider [phone] Encounter Details Date Type Department Care Team (Late st Contact Info) Description 10/05/2020 Transcribed Document [facility] [place] [facility] [place] [address] ProviderQuincy MD [address] [place] [phone] Social History Tobacco Use Types Packs/Day Years [...] On: 10/05/2020 13:56 EDT by EVONNE GABRIEL, DIANE-Script Coordinator Initial Assessment I Previously Documented Living Environment [...] Is Guardianship Needed : No EVONNE GABRIEL RN-Script Coordinator - 10/05/2020 13:56 EDT Initial Assessment II Sensory and Motor Deficits : None Current Home Treatments and Equipment : Nebulizer Services and Community Resources : Home Health (Comment: Pt states that she has used a couple of HH agencies in the past after her knee replacement [EOVNNE GABRIEL RN-Script Coordinator - 10/05/2020 13:56 EDT] ) Services and Community Resources Addl Comments : Signature of Nayeli nath 8-9 years ago after knee replacement EVONNE GABRIEL RN-Script Coordinator - 10/05/2020 13:56 EDT Discharge Needs I Anticipated Discharge Date : 10/05/2020 EDT Anticipated Discharge To, CM : Home independently Current Home Treatment/Equipment : Current Home Treatment/Equipment No qualifying data available. Post Acute/Home Treatments : None Documentation Status Complete : Yes EVONNE GABRIEL RN-Script Coordinator - 10/05/2020 13:56 EDT Discharge Needs II Professional Skilled Services : Professional Skilled Services No qualifying data available. Needs Assistance with Transportation : No EVONNE GABRIEL RN-Script Coordinator - 10/05/2020 13:56 EDT Narrative Note Narrative Note : Received from [facility] to here due to kidney stone. Urology consulted. Pt had ureteroscopy, laser lithotripsy with stent placement. Met with Pt at the bedside. Role of CM explained. Pt states that she is ADL independent, lives home alone. Plans are to return home when discharged. No needs antcipated/verbalized at this time. RRS is low @ 37, boost 5. CM will follow. EVONNE GABRIEL RN-Script Coordinator - 10/05/2020 13:56 EDT documented in this encounter Plan of Treatment Not on file documented as of this encounter Visit Diagnoses Not on filedocumented in this encounter Care Teams Alterations Workroom Clerk Relationship Specialty Start Date End Date Salima Gonzáles, DO 8 [facility] [address] [place] [address] PCP - General Family Medicine 02/09/23 documented as of this encounter
--- OUTSIDE RECORDS SUMMARY | 2024-04-06 23:28 | XMS_ITS | Encounter Summary ---
Author Organization [employer] Address [address] [place] [address] Care Team Providers Care Director For Beauty School Name Role Phone Unavailable Primary Care Provider Unavailabl e Encounter Details Date Type Department Care Team (Late st Contact Info) Description 10/04/2020 Historic Encounter [address] [address] Provider [facility] Historical Social History [...] Associated Diagnosis Comments CMP COMPREHENSIVE METABOLIC PANEL ([facility] DATA CONV) Routine 10/04/2020 6:54 AM EDT documented in this encounter Results * (ABNORMAL) CMP COMPREHENSIVE METABOLIC PANEL ([facility] DATA CONV) (10/04/2020 6:54 AM EDT) [...] 106 mg/dL 10/04/2020 11:38 AM EDT Comment: [facility] has become aware of sulfasalazine and sulfapyridine [...] 11:38 AM EDT Comment: Released without repeat. [facility] has become aware of sulfasalazine and sulfapyridine [...] Units/Lit er 10/04/2020 11:38 AM EDT Comment: [facility] has become aware of sulfasalazine and sulfapyridine [...] 6:54 AM EDT 10/04/2020 11:13 AM EDT [facility] Historical Provider LAB BLOOD ORDERABLES Fi nal Result [facility] [address] [phone] documented in this encounter Visit Diagnoses Not on filedocumented in this encounter
--- OUTSIDE RECORDS SUMMARY | 2024-04-06 23:28 | XMS_ITS | Encounter Summary ---
Author Organization [employer] Address [address] [place] [address] Care Team Providers Care Sales Advisor Name Role Phone Unavailable Primary Care Provider Unavailabl e Encounter Details Date Type Department Care Team (Late st Contact Info) Description 10/04/2020 Historic Encounter [address] [address] ProviderLianne Historical Social History Tobacco [...] Date/Time Associated Diagnosis Comments PT/INR PROTHROMBIN TIME ([facility] DATA CONV) Routine 10/04/2020 6:54 AM EDT documented in this encounter Results * PT/INR PROTHROMBIN TIME ([facility] DATA CONV) (10/04/2020 6:54 AM EDT) PT [...] 6:54 AM EDT 10/04/2020 11:13 AM EDT [facility] Historical Provider LAB BLOOD ORDERABLES Fi nal Result Performing Organization Address City/State/[facility] Co de Phone Number [facility] [address] [phone] documented in this encounter Visit Diagnoses Not on filedocumented in this encounter
--- OUTSIDE RECORDS SUMMARY | 2024-04-06 23:28 | XMS_ITS | Encounter Summary ---
Author Organization [employer] Address [address] [place] [address] Care Team Providers Care Resume Specialist Name Role Phone Unavailable Primary Care Provider Unavailabl e Encounter Details Date Type Department Care Team (Late st Contact Info) Description 10/03/2020 Historic Encounter [address] [address] Provider [facility] Historical Social History Tobacco [...] Priority Date/Time Associated Diagnosis Comments AUTOMATED DIFFERENTIAL ([facility] DATA CONV) Routine 10/03/2020 7:07 PM EDT documented in this encounter Results * (ABNORMAL) AUTOMATED DIFFERENTIAL ([facility] DATA CONV) (10/03/2020 7:07 PM EDT) Neut% 53.9 34.0 - 71.0 % 10/03/2020 11:13 PM EDT Lymph% 35.6 19.3 - 53.1 % 10/03/2020 11:13 PM EDT [place]% 7.7 3.0 - 9.0 % 10/03/2020 11:13 PM EDT Eos% 1.5 0.0 - 7.0 % 10/03/2020 11:13 PM EDT Baso% 0.6 0.0 - 1.5 % 10/03/2020 11:13 PM EDT IG% 0.70(H) 0.00 - 0.60 % 10/03/2020 11:13 PM EDT Neut# 3.90 1.56 - 6.13 K/uL 10/03/2020 11:13 PM EDT Lymph# 2.58 1.00 - 3.90 x10(3)/uL 10/03/2020 11:13 PM EDT [place]# 0.56 0.16 - 1.00 K/uL 10/03/2020 11:13 PM EDT Eos# 0.11 0.00 - 0.80 x10(3)/uL 10/03/2020 11:13 PM EDT Baso# 0.04 0.00 - 0.20 x10(3)/uL 10/03/2020 11:13 PM EDT IG# 0.05 0.00 - 0.05 x10(3)/uL 10/03/2020 11:13 PM EDT Blood 10/03/2020 7:07 PM EDT 10/03/2020 11:12 PM EDT Narrative [facility] - 10/03/2020 11:14 PM EDT Added by Discern Expert us Sle Historical Provider LAB BLOOD ORDERABLES Fi nal Result [facility] [address] [phone] documented in this encounter Visit Diagnoses Not on filedocumented in this encounter
--- OUTSIDE RECORDS SUMMARY | 2024-04-06 23:28 | XMS_ITS | Encounter Summary ---
Author Organization [employer] Address [address] [place] [address] Care Team Providers Care Quarantine Inspector Name Role Phone Salima Gonzáles Primary Care Provider [phone] Encounter Details Date Type Department Care Team (Late st Contact Info) Description 10/05/2020 Transcribed Document [facility] Family [place] [address] ProviderQuincy MD [address] [place] [address] [phone] Social History Tobacco Use Types Packs/Day Years [...] Policy Numbers : Insurance 1 Health Plan: [employer] MEDICARE REPL Policy Number: [id number] Authorization Number: Insurance Primary Name : [employer] MEDICARE REPL Policy Number: [id number] Authorization Status-Primary : Awaiting callback Reference Number-Primary : [id number] Authorized Service Begin Date-Primary : 10/03/2020 EDT Authorization Comments-Primary : Clinicals faxed via [employer] for IP approval Historical Authorization Comments-Primary : Comment 1: Clinicals submitted via [employer] for IP approval (DEISY LIRA RN 10/04/2020 08:24) DEISY LIRA RN - 10/05/2020 14:13 EDT Electronically signed by [place] [facility] Conversion Radial Drill Press Set Up Operator Cerner at 08/23/2022 11:14 AM CDT documented in this encounter Plan of Treatment Not on file documented as of this encounter Visit Diagnoses Not on filedocumented in this encounter Care Teams Quarantine Inspector Relationship Specialty Start Date End Date Salima Gonzáles DO [address] [place] [address] PCP - General Family Medicine 02/09/23 documented as of this encounter
--- OUTSIDE RECORDS SUMMARY | 2024-04-06 23:28 | XMS_ITS | Encounter Summary ---
Author Organization [employer] Address [address] [place] [address] Care Team Providers Care Core Shaper Top Name Role Phone Salima Gonzáles Primary Care Provider [phone] Encounter Details Date Type Department Care Team (Late st Contact Info) Description 10/09/2020 Transcribed Document [facility] [place] [facility] [place] [address] ProviderQuincy MD [address] [place] [address] [phone] Social History Tobacco Use Types Packs/Day Years [...] Policy Numbers : Insurance 1 Health Plan: [facility] MEDICARE REPL Policy Number: [id number] Authorization Number: Insurance Primary Name : [employer] MEDICARE REPL Policy Number: [id number] Authorization Status-Primary : Awaiting callback Reference Number-Primary : [id number] Authorized Service Begin Date-Primary : 10/03/2020 EDT Authorization Comments-Primary : Email sent to madelyn Mathew Authorization Comments-Primary : Comment 1: Clinicals faxed via [employer] for IP approval (DEISY LIRA RN 10/05/2020 14:13) Comment 2: Clinicals submitted via [employer] for IP approval (DEISY LIRA RN 10/04/2020 08:24) PING HOFFMANN RN - 10/09/2020 15:11 EDT Electronically signed by [place], [facility] Conversion Franchise Consultant Cerner at 08/23/2022 10:52 AM CDT documented in this encounter Plan of Treatment Not on file documented as of this encounter Visit Diagnoses Not on filedocumented in this encounter Care Teams Core Shaper Top Relationship Specialty Start Date End Date Salima Gonzáles, DO [address] [address] PCP - General Family Medicine 02/09/23 documented as of this encounter
--- OUTSIDE RECORDS SUMMARY | 2024-04-06 23:28 | XMS_ITS | Encounter Summary ---
Author Organization [employer] Address [address] [place] [address] Care Team Providers Care Scanning Supervisor Name Role Phone Salima Gonzáles DO Primary Care Provider [phone] Encounter Details Date Type Department Care Team (Late st Contact Info) Description 10/06/2020 Transcribed Document [facility] Family Medicine [address] [place] [address] ProviderQuincy MD [address] [place] [address] [phone] Social History Tobacco Use Types Packs/Day Years [...] [facility] Patient Phone Number : [phone] Patient Insurance Type : Medicare Source of [...] at ED : Other Primary Language : [facility] Comment : Scheduled hosptial f/u appts with PCP & Urology. Advised pt of appt information via telephone. Mailed appt reminders. Faxed H&P to PCP's office. Emailed appt information to child support case officer. Follow Up Needed : No Jacque Ledezma, RETAIL PRODUCT DEMO SPECIALIST - 10/06/2020 19:03 EDT documented in this encounter Plan of Treatment Not on file documented as of this encounter Visit Diagnoses Not on filedocumented in this encounter Care Teams Scanning Supervisor Relationship Specialty Start Date End Date Salima Gonzáles DO [address] [facility] [address] [place] [address] PCP - General Family Medicine 02/09/23 documented as of this encounter
--- OUTSIDE RECORDS SUMMARY | 2024-04-06 23:28 | XMS_ITS | Encounter Summary ---
Author Organization [employer] Address [address] [place] [address] Care Team Providers Care Logging Shovel Operator Name Role Phone Salima Gonzáles Primary Care Provider [phone] Encounter Details Date Type Department Care Team (Late st Contact Info) Description 10/04/2020 Transcribed Document [facility] Family Medicine [address] [place] [address] ProviderQuincy MD [address] [place] [address] [phone] Social History Tobacco Use Types Packs/Day Years [...] needed N.p.o. currently, urology consultation pending Tamsulosin #Xqh-ffdbpwg-smkigpyrb diabetes Hold home medications Cover with SSI [...] Lymph # 2.58 x10(3)/uL 10/03/2020 19:07 EDT Brooke % 8.5 % 10/04/2020 06:54 EDT Brooke % 7.7 % 10/03/2020 19:07 EDT Brooke # 0.47 K/uL 10/04/2020 06:54 EDT Brooke # 0.56 K/uL 10/03/2020 19:07 EDT Eos [...] 1.0 10/04/2020 06:54 EDT Electronically signed by [facility], [facility] Conversion Field Sales Specialist Cerner at 08/23/2022 11:00 AM CDT documented in this encounter Plan of Treatment Not on file documented as of this encounter Visit Diagnoses Not on filedocumented in this encounter Care Teams Logging Shovel Operator Relationship Specialty Start Date End Date Salima Gonzáles, [address] [address] PCP - General Family Medicine 02/09/23 documented as of this encounter
--- OUTSIDE RECORDS SUMMARY | 2024-04-06 23:28 | XMS_ITS | Encounter Summary ---
Author Organization [employer] Address [address] [place] [address] Care Team Providers Care Cell Feed Department Supervisor Name Role Phone Salima Gonzáles DO Primary Care Provider [phone] Encounter Details Date Type Department Care Team (Late st Contact Info) Description 10/05/2020 Transcribed Document [facility] Family Medicine [address] [place] [address] ProviderQuincy MD [address] [place] [address] Social History Tobacco Use Types Packs/Day [...] Janae Avery LPN - 10/05/2020 5:29 EDT Electronically signed by Nuzhat Barahona Conversion Distance Learning Coordinator Cerner at 08/23/2022 10:58 AM CDT documented in this encounter Plan of Treatment Not on file documented as of this encounter Visit Diagnoses Not on filedocumented in this encounter Care Teams Cell Feed Department Supervisor Relationship Specialty Start Date End Date Salima Gonzáles DO [address] [phone] PCP - General Family Medicine 02/09/23 documented as of this encounter
--- OUTSIDE RECORDS SUMMARY | 2024-04-06 23:28 | XMS_ITS | Encounter Summary ---
Author Organization [employer] Address [address] [place] [address] Care Team Providers Care Head Tennis Professional Name Role Phone Salima Gonzáles DO Primary Care Provider [phone] Encounter Details Date Type Department Care Team (Late st Contact Info) Description 10/04/2020 Transcribed Document [facility] Family Medicine [address] [place] [address] ProviderQuincy MD [address] [place] [address] Social History Tobacco Use Types Packs/Day [...] on filedocumented in this encounter Care Teams Head Tennis Professional Relationship Specialty Start Date End Date Salima Gonzáles DO [facility] [address] [place] [address] PCP - General Family Medicine 02/09/23 documented as of this encounter
--- OUTSIDE RECORDS SUMMARY | 2024-04-06 23:28 | XMS_ITS | Encounter Summary ---
Author Organization [employer] Address [address] [place] [address] Care Team Providers Care Alterations Sewer Name Role Phone Salima Gonzáles Primary Care Provider [phone] Encounter Details Date Type Department Care Team (Late st Contact Info) Description 10/04/2020 Transcribed Document [facility] Family Medicine [address] [place] [address] ProviderQuincy MD [address] [place] [address] Social History Tobacco Use Types Packs/Day [...] Kate MD - 10/04/2020 1:16 PM CDT [facility] Summary Primary Physician: ANNABEL ZAMBRANO MD-URO Finalized Date/Time: 10/04/20 15:07:54 Pt. Name: AMBIKA PIERRE./Sex: 1965 Female Med Rec #: [id number] Physician: SUREKHA ARGUELLES MD Financial #: [id number] Pt. Type: I Room/Bed: [facility] Admit/Disch: 10/03/20 18:06:00 - [facility]: [facility] PACU I Case Times Entry 1 In PACU I 10/04/20 13:58:00 Ready for PACU 10/04/20 14:40:00 Discharge Discharge from PACU 10/04/20 14:40:00 I Last Modified By: ESPERANZA LAWRENCE RN 10/04/20 15:07:45 Finalized By: ESPERANZA LAWRENCE, RN Document Signatures Signed By: ESPERANZA LAWRENCE RN 10/04/20 15:07 Electronically signed by [place] [facility] Conversion Boxing Machine Operator Cerner at 08/23/2022 11:13 AM CDT documented in this encounter Plan of Treatment Not on file documented as of this encounter Visit Diagnoses Not on filedocumented in this encounter Care Teams Alterations Sewer Relationship Specialty Start Date End Date Salima Gonzáles, [address] [address] PCP - General Family Medicine 02/09/23 documented as of this encounter
--- OUTSIDE RECORDS SUMMARY | 2024-04-06 23:28 | XMS_ITS | Encounter Summary ---
Author Organization [employer] Address [address] [place] [address] Care Team Providers Care Trial Court Justice Name Role Phone Salima Gonzáles Primary Care Provider [phone] Encounter Details Date Type Department Care Team (Late st Contact Info) Description 10/04/2020 Transcribed Document [facility] [place] [address] ProviderQuincy MD [address] [place] [address] [phone] Social History Tobacco Use Types Packs/Day Years [...] Policy Numbers : Insurance 1 Health Plan: [facility] MEDICARE REPL Policy Number: [id number] Authorization Number: Insurance Primary Name : [employer] MEDICARE REPL Policy Number: [id number] Authorization Status-Primary : Awaiting callback Reference Number-Primary : [id number] Authorized Service Begin Date-Primary : 10/03/2020 EDT Authorization Comments-Primary : Clinicals submitted via [employer] for IP approval Historical Authorization Comments-Primary : No Authorization Comments Found DEISY LIRA, RN - 10/04/2020 8:24 EDT Electronically signed by [place] [facility] Conversion Cleater Paramjitner at 08/23/2022 11:14 AM CDT documented in this encounter Plan of Treatment Not on file documented as of this encounter Visit Diagnoses Not on filedocumented in this encounter Care Teams Trial Court Justice Relationship Specialty Start Date End Date Salima Gonzáles, 8 [facility] [address] [place] [address] PCP - General Family Medicine 02/09/23 documented as of this encounter
--- OUTSIDE RECORDS SUMMARY | 2024-04-06 23:28 | XMS_ITS | Encounter Summary ---
Author Organization [employer] Address [address] [place] [address] Care Team Providers Care Barometers Calibrator Name Role Phone Salima Gonzáles Primary Care Provider Encounter Details Date Type Department Care Team (Late st Contact Info) Description 10/13/2020 Transcribed Document [facility] [place] [address] ProviderQuincy MD [address] [place] [address] [phone] Social History Tobacco Use Types Packs/Day Years [...] On: 10/13/2020 15:02 EDT by Katia Pratt, Insurance Policy Clerk Primary Insurance Authorization Authorization and Policy Numbers : Insurance 1 Health Plan: [employer] MEDICARE REPL Policy Number: [id number] Authorization Number: Insurance Primary Name : [facility] MEDICARE REPL Policy Number: [id number] Authorization Status-Primary : Denied Auth/Referral Contact Name-Primary : DC+ Reference Number-Primary : [id number] Authorized Service Begin Date-Primary : 10/03/2020 EDT Authorization Comments-Primary : Discharge date and summary faxed. Historical Authorization Comments-Primary : Comment 1: Email to David/Mary/MOSHE (JUSTEN HARTLEY, Rn-Utilization Review 10/13/2020 10:20) Comment 2: Rec fax from Sara 10/12/20 States admission has been denied. Fax to Jacque Tabor (TEMI LAMBERT, Client Liaison 10/12/2020 14:42) Comment 3: Per Jinny remains [...] 10/05/2020 14:13) Comment 8: Clinicals submitted via [employer] for IP approval (DEISY LIRA RN 10/04/2020 08:24) Katia Pratt, Insurance Policy Clerk - 10/13/2020 15:02 EDT documented in this encounter Plan of Treatment Not on file documented as of this encounter Visit Diagnoses Not on filedocumented in this encounter Care Teams Barometers Calibrator Relationship Specialty Start Date End Date Salima Gonzáles, 8 [facility] [address] [place] [address] PCP - General Family Medicine 02/09/23 documented as of this encounter
--- OUTSIDE RECORDS SUMMARY | 2024-04-06 23:28 | XMS_ITS | Encounter Summary ---
Author Organization [employer] Address [address] [place] [address] Care Team Providers Care Implementation Manager Name Role Phone Unavailable Primary Care Provider Unavailabl e Encounter Details Date Type Department Care Team (Late st Contact Info) Description 10/05/2020 Historic Encounter [address] [address] Provider, [facility] Historical Social History [...] Associated Diagnosis Comments CMP COMPREHENSIVE METABOLIC PANEL ([facility] DATA CONV) Routine 10/05/2020 6:30 AM EDT documented in this encounter Results * (ABNORMAL) CMP COMPREHENSIVE METABOLIC PANEL ([facility] DATA CONV) (10/05/2020 6:30 AM EDT) [...] 106 mg/dL 10/05/2020 11:52 AM EDT Comment: [place]anderio has become aware of sulfasalazine and sulfapyridine [...] Units/Lit er 10/05/2020 11:52 AM EDT Comment: [place] has become aware of sulfasalazine and sulfapyridine [...] Units/Lit er 10/05/2020 11:52 AM EDT Comment: [place] has become aware of sulfasalazine and sulfapyridine [...] Provider LAB BLOOD ORDERABLES Fi nal Result [facility] 1 [place], [place] [address] [phone] documented in this encounter Visit Diagnoses Not on filedocumented in this encounter
--- OUTSIDE RECORDS SUMMARY | 2024-04-06 23:28 | XMS_ITS | Encounter Summary ---
Author Organization [employer] Address [address] [place] [address] Care Team Providers Care Wood Preserving Plant Laborer Name Role Phone Salima Gonzáles Primary Care Provider [phone] Encounter Details Date Type Department Care Team (Late st Contact Info) Description 10/13/2020 Transcribed Document [facility] [place] [facility] [place] [address] ProviderQuincy MD [address] [place] [address] [phone] Social History Tobacco Use Types Packs/Day Years [...] : Insurance 1 Health Plan: [facility] MEDICARE REPL Policy Number: [id number] Authorization Number: Insurance Primary Name : [employer] MEDICARE REPL Policy Number: [id number] Authorization Status-Primary : Denied Reference Number-Primary : [id number] Authorized Service Begin Date-Primary : 10/03/2020 EDT Authorization Comments-Primary : Email to Hemalatha/MOSHE Historical Authorization Comments-Primary : Comment 1: Rec fax from [place] 10/12/20 States admission has been denied. Fax to Ping Tabor (TEMI LAMBERT, Supervisor Machining 10/12/2020 14:42) Comment 2: Per Madelyn remains pending (PING HOFFMANN RN 10/12/2020 12:06) Comment 3: Faxed dc summary via [employer] (PING HOFFMANN RN 10/11/2020 12:12) Comment 4: Remains pending per [employer] (PING HOFFMANN RN 10/11/2020 12:11) Comment 5: Email sent to madelyn (PING HOFFMANN RN 10/09/2020 15:11) Comment 6: Clinicals faxed via [employer] for IP approval (DEISY LIRA RN 10/05/2020 14:13) Comment 7: Clinicals submitted via [employer] for IP approval (DEISY LIRA RN 10/04/2020 08:24) JUSTEN HARTLEY Rn-Utilization Review - 10/13/2020 10:20 EDT Electronically signed by Nuzhat Barahona Conversion Area Development Consultant Cerner at 08/23/2022 11:06 AM CDT documented in this encounter Plan of Treatment Not on file documented as of this encounter Visit Diagnoses Not on filedocumented in this encounter Care Teams Wood Preserving Plant Laborer Relationship Specialty Start Date End Date Salima Gonzáles, 8 [facility] [address] [place] [address] PCP - General Family Medicine 02/09/23 documented as of this encounter
--- OUTSIDE RECORDS SUMMARY | 2024-04-06 23:28 | XMS_ITS | Encounter Summary ---
Author Organization [employer] Address [address] [place] [address] Care Team Providers Care Printed Circuit Boards Contact Printer Name Role Phone Salima Gonzáles Primary Care Provider [phone] Encounter Details Date Type Department Care Team (Late st Contact Info) Description 10/05/2020 Transcribed Document [facility] Family Medicine [address] [place] [address] ProviderQuincy MD [address] [place] [address] Social History Tobacco Use Types Packs/Day [...] these instructions at home: Medicines ??? Take vnmi-pkq-jflaoal and prescription medicines only as told by [...] provider. Document Revised: 09/09/2019 Document Reviewed: 09/09/2019 [employer] Patient Education ? 2020 [employer] Ureteroscopy Ureteroscopy is a procedure to [...] including vitamins, herbs, eye drops, creams, and alkr-wgu-cjrldpd medicines. ??? Any problems you or family [...] provider. Document Revised: 04/05/2018 Document Reviewed: 02/02/2017 [employer] Patient Education ? 2020 [employer] Dietary Guidelines to Help Prevent Kidney [...] Rhubarb. ? Beets. ? Potato chips and sinhala fries. ? Nuts. ??? If you regularly take a diuretic medicine, make sure to eat at least 1?2 fruits or vegetables high in potassium each day. These include: ? Avocado. ? Banana. ? [place], prune, carrot, or tomato juice. ? Baked [...] Casseroles. Pizza. Lasagna. Frozen meals. Potato chips. Nepali fries. Summary ??? You can reduce your [...] provider. Document Revised: 08/13/2019 Document Reviewed: 04/03/2017 [employer] Patient Education ? 2019 [employer] Electronically signed by [place], [facility] Conversion Kindergarten Tutor Cerner at 08/23/2022 11:12 AM CDT documented in this encounter Plan of Treatment Not on file documented as of this encounter Visit Diagnoses Not on filedocumented in this encounter Care Teams Printed Circuit Boards Contact Printer Relationship Specialty Start Date End Date Salima Gonzáles, [address] [address] PCP - General Family Medicine 02/09/23 documented as of this encounter
--- OUTSIDE RECORDS SUMMARY | 2024-04-06 23:28 | XMS_ITS | Encounter Summary ---
Author Organization [employer] Address [address] [place] [address] Care Team Providers Care Scaffold Worker Name Role Phone Salima Gonzáles Primary Care Provider [phone] Encounter Details Date Type Department Care Team (Late st Contact Info) Description 10/12/2020 Transcribed Document [facility] Family [place] [facility] [place] [address] ProviderQuincy MD [address] [place] [address] [phone] Social History Tobacco Use Types Packs/Day Years [...] Policy Numbers : Insurance 1 Health Plan: [employer] MEDICARE REPL Policy Number: [id number] Authorization Number: Insurance Primary Name : [employer] MEDICARE REPL Policy Number: [id number] Authorization Status-Primary : Awaiting callback Reference Number-Primary : [id number] Authorized Service Begin Date-Primary : 10/03/2020 EDT Authorization Comments-Primary : Yeison Stearns remains pending Historical Authorization Comments-Primary : Comment 1: Faxed dc summary via [employer] (PING HOFFMANN RN 10/11/2020 12:12) Comment 2: Remains pending per [employer] (PING HOFFMANN RN 10/11/2020 12:11) Comment 3: Email sent to madelyn (PING HOFFMANN RN 10/09/2020 15:11) Comment 4: Clinicals faxed via [employer] for IP approval (DEISY LIRA RN 10/05/2020 14:13) Comment 5: Clinicals submitted via [employer] for IP approval (DEISY LIRA RN 10/04/2020 08:24) PING HOFFMANN RN - 10/12/2020 12:06 EDT documented in this encounter Plan of Treatment Not on file documented as of this encounter Visit Diagnoses Not on filedocumented in this encounter Care Teams Scaffold Worker Relationship Specialty Start Date End Date Salima Gonzáles DO [address] [address] PCP - General Family Medicine 02/09/23 documented as of this encounter
--- OUTSIDE RECORDS SUMMARY | 2024-04-06 23:28 | XMS_ITS | Encounter Summary ---
Author Organization [employer] Address [address] [place] [address] Care Team Providers Care Heat Treater Apprentice Name Role Phone Salima Gonzáles Primary Care Provider [phone] Encounter Details Date Type Department Care Team (Late st Contact Info) Description 10/05/2020 Transcribed Document [facility] [place] [address] [place] [address] ProviderQuincy MD [address] [place] [id number] Social History Tobacco Use Types Packs/Day Years [...] in this encounter Care Teams Heat Treater Apprentice Relationship Specialty Start Date End Date Salima Gonzáles, [address] [address] PCP - General Family Medicine 02/09/23 documented as of this encounter
--- OUTSIDE RECORDS SUMMARY | 2024-04-06 23:29 | XMS_ITS | Encounter Summary ---
Author Organization Healthcare Address [address] [place] [address] Care Team Providers Care Tester/Lift Trucker Name Role Phone AnujSalima somers Primary Care Provider [phone] Encounter Details Date Type Department Care Team (Latest Contact Info) Description 06/07/2021 10:10 AM EST - 06/07/2021 11:59 PM EST Hospital Encounter Medical Office Building Radiology [address] [place] [address] Displaced intertrochanteric fracture of left femur, init ([facility]) Discharge Disposition: Home or Self [...] Displaced intertrochanteric fracture of left femur, init ([facility]) documented in this encounter Results [...] LEFT 2+ VIEWS ordered by NEELA FLYNN [id number] CLINICAL INDICATION: Pain TECHNIQUE: XR FEMUR LEFT [...] LEFT 2+ VIEWS ordered by NEELA FLYNN [id number] CLINICAL INDICATION: Pain TECHNIQUE: XR FEMUR LEFT [...] Displaced intertrochanteric fracture of left femur, init ([facility]) documented in this encounter Additional Health Concerns Assessment Noted Time A fall risk assessment has been complete d for the patient 06/07/2021 10:34 AM EST documented as of this encounter Care Teams Tester/Lift Trucker Relationship Specialty Start Date End Date Salima Gonzáles DO [address] [place] [address] PCP - General 09/17/20 documented as of this encounter
--- OUTSIDE RECORDS SUMMARY | 2024-04-06 23:29 | XMS_ITS | Encounter Summary ---
Author Organization [employer] Address [address] [place] [address] Care Team Providers Care Lapping Machine Set Up Operator Name Role Phone Salima Gonzáles Primary Care Provider [phone] Encounter Details Date Type Department Care Team (Late st Contact Info) Description 10/03/2020 Transcribed Document [facility] [place] [facility] [place] [address] ProviderQuincy MD [address] [place] [address] Social History Tobacco Use Types Packs/Day [...] No, patient refuses Advance Directive information Hoa Colmean RN - 10/04/2020 13:17 EDT Anesthesia/Transfusion History [...] #2 Relationship : father Primary Language : Tajik Communication Barrier : None Probate Paralegal Needed : No Hoa Coleman RN - [...] Level : 46 or > High Risk [place] Fall Interventions : Adequate lighting, Assistive devices [...] Source : Stated Height Entry Format : [place] Height, Feet : 5 ft(Converted to: 152 cm, 60 Inch) Height, Inches : 1 Inch(Converted to: 0 ft 1 Inch, 2.54 cm) Clinical Height : 154.94 cm Weight Source : Bed scale Weight Entry Format : [place] Clinical Dosing Weight : 118.18 kg Weight, Pounds : 260 lb Body Surface Area (BSA) : 2.11 m2 Body Mass Index : 49.2 kg/m2 (>HHI) [place] Body Weight : 47 kg Hoa Coleman [...] Hoa Coleman RN - 10/04/2020 13:17 EDT [place] Suicide Severity Rating Scale (C-SSRS) CSSRS Past [...] on filedocumented in this encounter Care Teams Lapping Machine Set Up Operator Relationship Specialty Start Date End Date Salima Gonzáles, DO 8 [facility] [address] [place] [address] PCP - General Family Medicine 02/09/23 documented as of this encounter
--- OUTSIDE RECORDS SUMMARY | 2024-04-06 23:29 | XMS_ITS | Encounter Summary ---
Author Organization [employer] Address [address] [place] [address] Care Team Providers Care Risk Assessment Consultant Name Role Phone Salima Gonzáles Primary Care Provider [phone] Encounter Details Date Type Department Care Team (Late st Contact Info) Description 10/03/2020 Transcribed Document [facility] [place] [address] [place] [address] ProviderQuincy MD [address] [place] [address] Social History Tobacco Use Types Packs/Day [...] on filedocumented in this encounter Care Teams Risk Assessment Consultant Relationship Specialty Start Date End Date Salima Gonzáles, [address] [address] PCP - General Family Medicine 02/09/23 documented as of this encounter
--- OUTSIDE RECORDS SUMMARY | 2024-04-06 23:29 | XMS_ITS | Encounter Summary ---
Author Organization Healthcare Address [address] [place] [address] Care Team Providers Care Materials Scheduler Name Role Phone Salima Gonzáles DO Primary Care Provider [phone] Encounter Details Date Type Department Care Team [...] documented as of this encounter Care Teams Materials Scheduler Relationship Specialty Start Date End Date Salima Gonzáles DO [address] [place] [address] PCP - General 09/17/20 documented as of this encounter
--- OUTSIDE RECORDS SUMMARY | 2024-04-06 23:29 | XMS_ITS | Encounter Summary ---
Author Organization [facility] Address [address] [id number] Care Team Providers Care Airport Guide Name Role Phone Salima Gonzáles Primary Care Provider [phone] Reason for Visit * Reason Onset Date Comments HCN - Patient Message 08/03/2022 Encounter Details Date Type Department Care Team ([facility] st Contact Info) Description 08/03/2022 Telephone Medical Office Building Surgery Spine & Joint [address] [facility] [place] [address] Bebeto Flynn MD [address] [place] [address] HCN - Patient Message Social [...] ahead of that appt. Best contact number: [phone] Optimal time of day to reach caller: ANYTIME Additional comments/information from caller: None Note: Please do not reply to this message. Follow-up communication and further actions as a result of this message need to be communicated with the patient directly, if the patient is not active onMyChart. If the patient is active on MyChart, they will receive notification of the communication/outcome via [employer]. documented in this encounter Plan of Treatment Not on file documented as of this encounter Visit Diagnoses Not on filedocumented in this encounter Additional Health Concerns Assessment Noted Time A fall risk assessment has been complete d for the patient 08/23/2021 2:23 PM EDT documented as of this encounter Care Teams Airport Guide Relationship Specialty Start Date End Date Salima Gonzáles DO [address] [place], [place] [address] PCP - General 09/17/20 documented as of this encounter
--- OUTSIDE RECORDS SUMMARY | 2024-04-06 23:29 | XMS_ITS | Encounter Summary ---
Author Organization [employer] Address [address] [place] [address] Care Team Providers Care Food Trades Assistants Name Role Phone Salima Gonzáles Primary Care Provider [phone] Encounter Details Date Type Department Care Team (Late st Contact Info) Description 10/03/2020 Transcribed Document [facility] [place] [facility] [place] [address] ProviderQuincy MD [address] [place] [address] Social History Tobacco Use Types Packs/Day [...] the text rendition version of the form. Electronically signed by [place], Nuzhat Conversion Construction Code Administrator Cerner at 08/23/2022 10:52 AM CDT documented in this encounter Plan of Treatment Not on file documented as of this encounter Visit Diagnoses Not on filedocumented in this encounter Care Teams Food Trades Assistants Relationship Specialty Start Date End Date Salima Gonzáles, DO [address] [address] PCP - General Family Medicine 02/09/23 documented as of this encounter
--- OUTSIDE RECORDS SUMMARY | 2024-04-06 23:29 | XMS_ITS | Encounter Summary ---
Author Organization [employer] Address [address] [place] [address] Care Team Providers Care Pipelines Manager Name Role Phone Salima Gonzáles Primary Care Provider Encounter Details Date Type Department Care Team (Late st Contact Info) Description 10/03/2020 Transcribed Document [facility] [place] Family Medicine [address] [place] [address] ProviderQuincy MD [address] [place] [address] Social History Tobacco Use Types Packs/Day [...] 10/03/2020 19:18 EDT by Tereza Carrera Patient Mds Rn Shira Phone Call for Consults Consult Phone Call/Page Attempt : First call Consult Reason : obstructing stone Physician Requesting Consult : TIM MCCORMICK, DO-INT Physician Requested for Consult : DILLON HOFFMANN MD Provider Team Notified Name : Urology Physician Covering for Consult : ANNABEL ZAMBRANO MD-URO Date and Time Call Returned : 10/04/2020 9:51 EDT Tereza Carrera Patient Mds Rn Shira - 10/04/2020 9:48 EDT documented in this encounter Plan of Treatment Not on file documented as of this encounter Visit Diagnoses Not on filedocumented in this encounter Care Teams Pipelines Manager Relationship Specialty Start Date End Date Salima Gonzáles DO 8 [facility] [address] [place] [address] PCP - General Family Medicine 02/09/23 documented as of this encounter
--- OUTSIDE RECORDS SUMMARY | 2024-04-06 23:29 | XMS_ITS | Encounter Summary ---
Author Organization [employer] Address [address] [place] [address] Care Team Providers Care Electromechanical Inspector Name Role Phone Salima Gonzáles Primary Care Provider [phone] Encounter Details Date Type Department Care Team (Late st Contact Info) Description 10/03/2020 Transcribed Document [facility] Medicine [address] [place] [address] ProviderQuincy MD [address] [place] [address] Social History Tobacco Use Types Packs/Day [...] on filedocumented in this encounter Care Teams Electromechanical Inspector Relationship Specialty Start Date End Date Salima Gonzáles DO [address] [id number] PCP - General Family Medicine 02/09/23 documented as of this encounter
--- OUTSIDE RECORDS SUMMARY | 2024-04-06 23:29 | XMS_ITS | Encounter Summary ---
Author Organization Healthcare Address [address] [place] [address] Care Team Providers Care Cottage Cheese Maker Name Role Phone Salima Gonzáles DO Primary Care Provider [phone] Encounter Details Date Type Department Care Team [...] documented as of this encounter Care Teams Cottage Cheese Maker Relationship Specialty Start Date End Date Salima Gonzáles DO [address] [place], [place] [address] [place] [address] PCP - General 09/17/20 documented as of this encounter
--- OUTSIDE RECORDS SUMMARY | 2024-04-06 23:29 | XMS_ITS | Encounter Summary ---
Author Organization Healthcare Address [address] [place] [address] Care Team Providers Care Speedboat Driver Name Role Phone Salima Gonzáles DO Primary Care Provider [phone] Encounter Details Date Type Department Care Team [...] documented as of this encounter Care Teams Speedboat Driver Relationship Specialty Start Date End Date Salima Gonzáles DO [address] [place], [place] [address] [place] [address] PCP - General 09/17/20 documented as of this encounter
--- OUTSIDE RECORDS SUMMARY | 2024-04-06 23:29 | XMS_ITS | Encounter Summary ---
Author Organization Healthcare Address [address] [place] [address] Care Team Providers Care Band Attacher Name Role Phone Salima Gonzáles DO Primary Care Provider Encounter Details Date Type Department Care Team (Late st Contact Info) Description 03/20/2023 Telephone [facility] Radiology [address] [place] [address] Sophie Prince RN [facility] Social History [...] documented as of this encounter Care Teams Band Attacher Relationship Specialty Start Date End Date Salima Gonzáles DO [address] [place] [address] PCP - General 09/17/20 documented as of this encounter
--- OUTSIDE RECORDS SUMMARY | 2024-04-06 23:29 | XMS_ITS | Encounter Summary ---
Author Organization Healthcare Address [address] [place] [address] Care Team Providers Care Personnel Generalist Manager Name Role Phone EliecerSalima Primary Care Provider [phone] Encounter Details Date Type Department Care Team (Latest Contact Info) Description 08/23/2021 1:38 PM EDT - 08/23/2021 11:59 PM EDT Hospital Encounter Medical Office Building Radiology [facility] [place] [address] Closed fracture of distal end [...] LEFT 2+ VIEWS ordered by NEELA FLYNN, [id number] CLINICAL INDICATION: Left hand pain. TECHNIQUE: XR FEMUR LEFT 2+ VIEWS COMPARISON: Left femur radiographs dated 06/07/2021. FINDINGS: Retrograde left femoral nail. Left total knee prosthesis. Healed distal femur fracture. No soft tissue swelling or joint effusion. Procedure Note Oleg Stewart MD - 08/23/2021 Exam/Procedure: XR FEMUR LEFT 2+ VIEWS ordered by NEELA FLYNN, [id number] CLINICAL INDICATION: Left hand pain. TECHNIQUE: XR [...] documented as of this encounter Care Teams Personnel Generalist Manager Relationship Specialty Start Date End Date Salima Gonzáles DO [address] [place], [place] [address] [place], [place] [id number] PCP - General 09/17/20 documented as of this encounter
--- OUTSIDE RECORDS SUMMARY | 2024-04-06 23:29 | XMS_ITS | Encounter Summary ---
Author Organization [employer] Address [address] [place] [address] Care Team Providers Care Presidential Support Specialist Name Role Phone Salima Gonzáles Primary Care Provider [phone] Encounter Details Date Type Department Care Team (Late st Contact Info) Description 10/03/2020 Transcribed Document [facility] Family Medicine [facility] [place] [address] ProviderQuincy MD [address] [place] [address] Social History Tobacco Use Types Packs/Day Years Used Date Smoking Tobacco: Never Assessed Comments Unknown Sex and Gender Information Value Date Recorded Sex Assigned at Not on file Legal Sex Female 2:54 PM CDT Gender Identity Not on file Sexual Orientation Not on file documented as of this encounter Miscellaneous Notes * Cerner Conversion Note - Qiuncy ProviderMD - 10/03/2020 6:30 PM CDT Admission [...] #2 Relationship : father Primary Language : Greenlandic Communication Barrier : None Slab Off Mill Tender Needed : No Cassie Colon RN - [...] Scale Risk Level : 25-45 Medium Risk [place] Fall Interventions : Adequate lighting, Assistive devices [...] ago. (Last Updated: 08/25/2014 15:15:57 EDT by KNEY DIAZ, RN) Alcohol Use History Yes. Use in Last 12 Months: No. Alcohol Use Frequency Rarely. (Last Updated: 10/08/2019 09:19:47 EDT by Whitney Huynh, Fest[place]) Substance Abuse: Drug Use Hx: No. (Last Updated: 10/08/2019 09:19:55 EDT by Whitney Huynh, Festus) Height and Weight, Clinical Dosing Height Source : Stated Height Entry Format : [place] Height, Feet : 5 ft(Converted to: 152 cm, 60 Inch) Height, Inches : 1 Inch(Converted to: 0 ft 1 Inch, 2.54 cm) Clinical Height : 154.94 cm Weight Source : Bed scale Weight Entry Format : [place] Clinical Dosing Weight : 118.18 kg Weight, Pounds : 260 lb Body Surface Area (BSA) : 2.11 m2 Body Mass Index : 49.2 kg/m2 (>HHI) [place] Body Weight : 47 kg Cassie Colon [...] Cassie Colon RN - 10/03/2020 18:30 EDT [place] Suicide Severity Rating Scale (C-SSRS) CSSRS Past [...] 10/03/2020 18:30 EDT Electronically signed by [place] [facility] Conversion City Bailiff Cerner at 08/23/2022 10:51 AM CDT documented in this encounter Plan of Treatment Not on file documented as of this encounter Visit Diagnoses Not on filedocumented in this encounter Care Teams Presidential Support Specialist Relationship Specialty Start Date End Date Salima Gonzáles DO 8 [facility] [address] [place] [address] PCP - General Family Medicine 02/09/23 documented as of this encounter
--- OUTSIDE RECORDS SUMMARY | 2024-04-06 23:29 | XMS_ITS | Encounter Summary ---
Author Organization [employer] Address [address] [place] [address] Care Team Providers Care Customer Account Representative Name Role Phone Salima Gonzáles Primary Care Provider [phone] Encounter Details Date Type Department Care Team (Late st Contact Info) Description 10/08/2019 Transcribed Document [facility] Family Medicine [facility] [address] ProviderQuincy MD [address] [place] [address] Social History Tobacco Use Types Packs/Day [...] Kate MD - 10/08/2019 10:26 AM CDT [facility] [address] AMBIKA PIERRE :1965 Visit Time:10/08/2019 What [...] office, November 09 at 11:00am Where: [address] [facility] [address] [place] [id number]- Medications What How Much When Instructions Next [...] serving. ??? Talk with a diet and retail seasonal specialist (dietitian) if you have questions about [...] Bulgur wheat. Millet. Quinoa. Bran muffins. Popcorn. [place] wafer crackers. Meats and other proteins [place], kidney, and cox beans. Soybeans. Split peas. [...] Cream cheese. Sour cream. Fats and oils [place]. Beverages Soft drinks. Other foods Cakes and [...] 04/23/2006 Document Revised: 02/25/2018 Document Reviewed: 02/25/2018 Nuvo[employer] Interactive Patient Education ?? 2019 apta.me. Gastritis, Adult Gastritis is swelling (inflammation) of [...] these instructions at home: Medicines ??? Take unpb-ilu-gthosnm and prescription medicines only as told by [...] 10/09/2008 Document Revised: 09/10/2018 Document Reviewed: 09/10/2018 Nuvo[employer] Interactive Patient Education ?? 2019 apta.me. Colitis Colitis is inflammation of the colon. [...] you start to feel better. ??? Take bxha-ceu-uwrjxcl and prescription medicines only as told by [...] 05/31/2005 Document Revised: 10/24/2018 Document Reviewed: 10/24/2018 NuvoMed Interactive Patient Education ?? 2019 NuvoMed Inc. Hemorrhoids Hemorrhoids are swollen veins that [...] times a day. General instructions ??? Take eceo-ofv-kbdgwop and prescription medicines only as told by [...] 01/30/2009 Document Revised: 09/12/2018 Document Reviewed: 09/12/2018 NuvoMed Interactive Patient Education ?? 2019 apta.me. Colonoscopy, Adult, Care After This sheet gives [...] soft and easy to digest. ??? Take vvqm-jnr-igwryhm or prescription medicines only as told by [...] 05/26/2011 Document Revised: 02/21/2018 Document Reviewed: 01/15/2017 NuvoMed Interactive Patient Education ?? 2019 NuvoMed Inc. Esophagogastroduodenoscopy, Care After Refer to this [...] 04/09/2013 Document Revised: 09/28/2016 Document Reviewed: 03/16/2016 NuvoMed Interactive Patient Education ?? 2019 apta.me. metronidazole (me irma hawk) FIRST Metronidazole, Flagyl, [...] (more likely to occur while taking metronidazole penitentiary): ?? numbness, tingling, or burning pain in [...] may report side effects to FDA at 7-603-BNM-0173. What other drugs will affect metronidazole? Sometimes [...] drugs may affect metronidazole, including prescription and kryn-bws-pdtxdgv medicines, vitamins, and herbal products. Not all [...] to ensure that the information provided by [employer]. ('Multum') is accurate, up-to-date, and complete, but no guarantee is made to that effect. Drug information contained herein may be time sensitive. [employer] information has been compiled for use by healthcare practitioners and consumers in the [place] and therefore [employer] does not warrant that uses outside of the [place] are appropriate, unless specifically indicated otherwise. [employer] drug information does not endorse drugs, diagnose patients or recommend therapy. [employer] drug information is an informational resource designed [...] effective or appropriate for any given patient. [employer] does not assume any responsibility for any aspect of healthcare administered with the aid of information [employer] provides. The information contained herein is not intended to cover all possible uses, directions, precautions, warnings, drug interactions, allergic reactions, or adverse effects. If you have questions about the drugs you are taking, check with your doctor, nurse or pharmacist. Copyright 0997-6466 [employer]. Version: 12.. Revision Date: 02/25/2018. linaclotide (GENEVIEVE [...] may report side effects to FDA at 1-298-QFV-1112. What other drugs will affect linaclotide? Other drugs may interact with linaclotide, including prescription, piaf-qxc-aduvggg, vitamin, and herbal products. Tell your doctor [...] to ensure that the information provided by [employer]. ('Multum') is accurate, up-to-date, and complete, but no guarantee is made to that effect. Drug information contained herein may be time sensitive. [employer] information has been compiled for use by healthcare practitioners and consumers in the [place] and therefore [employer] does not warrant that uses outside of the [place] are appropriate, unless specifically indicated otherwise. [employer] drug information does not endorse drugs, diagnose patients or recommend therapy. [employer] drug information is an informational resource designed [...] effective or appropriate for any given patient. [employer] does not assume any responsibility for any aspect of healthcare administered with the aid of information [employer] provides. The information contained herein is not intended to cover all possible uses, directions, precautions, warnings, drug interactions, allergic reactions, or adverse effects. If you have questions about the drugs you are taking, check with your doctor, nurse or pharmacist. Copyright 1189-2047 [employer]. Version: 4.02. Revision Date: 01/23/2017. pantoprazole (oral/injection) [...] a broken bone while taking this medicine penitentiary or more than once per day. What [...] may report side effects to FDA at 8-476-XSR-3015. What other drugs will affect pantoprazole? Tell your doctor about all your other medicines, especially: ?? digoxin; ?? methotrexate; or ?? a diuretic or 'water pill.' This list is not complete. Other drugs may affect pantoprazole, including prescription and rzgh-srh-bznnmfs medicines, vitamins, and herbal products. Not all [...] to ensure that the information provided by [employer]. ('Multum') is accurate, up-to-date, and complete, but no guarantee is made to that effect. Drug information contained herein may be time sensitive. [employer] information has been compiled for use by healthcare practitioners and consumers in the [place] and therefore [employer] does not warrant that uses outside of the [place] are appropriate, unless specifically indicated otherwise. [employer] drug information does not endorse drugs, diagnose patients or recommend therapy. [employer] drug information is an informational resource designed [...] effective or appropriate for any given patient. [facility] does not assume any responsibility for any aspect of healthcare administered with the aid of information [facility] provides. The information contained herein is not intended to cover all possible uses, directions, precautions, warnings, drug interactions, allergic reactions, or adverse effects. If you have questions about the drugs you are taking, check with your doctor, nurse or pharmacist. Copyright 7952-6277 [facility] [employer]. Version: 19.02. Revision Date: 10/30/2017. Emergency Awareness [...] Assistance with quitting is available by contacting 8-497-IVKD-NOW. This is a free resource providing counseling, [...] was given the opportunity to ask questions. Patient/Program Technician Name: Patient/Program Technician Signature: Relationship to Patient: Clinician/Hospital Program Technician Signature: Date: documented in this encounter Plan of Treatment Not on file documented as of this encounter Visit Diagnoses Not on filedocumented in this encounter Care Teams Customer Account Representative Relationship Specialty Start Date End Date Salima Gonzáles DO [address] [facility] [address] [place] [id number] PCP - General Family Medicine 02/09/23 documented as of this encounter
--- OUTSIDE RECORDS SUMMARY | 2024-04-06 23:29 | XMS_ITS | Clinical Summary ---
Author Organization [facility] Address [address] [place] [address] Care Team Providers Care Financial Operations Analyst Name Role Phone Eliecer Salimajovanni Ybarra DO Primary Care Provider [phone] Allergies Active Allergy Reactions Criticality Noted Date [...] Screening 2014 [facility]-Diabetes: Hemoglobin A1C 10/29/2021 05/01/2021 [id number] Vaccine (2023- season) 2024 02/23/2022, 01/26/2021, 06/09/2020, [...] this topic Medical Devices Implanted Type Area Vice President Pharmacy Device Identifier Shelf Expiration Date Model / Serial / Lot Nail Femoral Retro T2 Alpha 11mm X 340mm - [id number] Implanted:Qty: 1 on 05/01/2021 by Crow Lockwood MD at [facility] Nail Left: Fem[employer] [facility][id number] 10/04/2030 [id number] / / [id number] Screw Locking T2 D5xl80 - [id number] Implanted:Qty: 1 on 05/01/2021 by Bebeto Flynn MD at [facility] Screw Left: Femur [employer] [facility][id number] 09/03/2030 [id number] / / [id number] Screw Locking T2 D5xl60 - [id number] Implanted:Qty: 1 on 05/01/2021 by Bebeto Flynn MD at [facility] Screw Left: [employer] [facility][id number] 02/03/2031 2360-5060S / / [id number] Screw Locking T2 D5xl50 - [id number] Implanted:Qty: 1 on 05/01/2021 by Bebeto Flynn MD at [facility] Screw Left: Fem[employer] [facility][id number] 02/03/2031 2360-5050S / / [id number] Screw Locking T2 D5xl75 - [id number] Implanted:Qty: 1 on 05/01/2021 by Bebeto Flynn MD at [facility] Screw Left: Femur [employer] ([facility][id number] 01/04/2031 2360-5075S / / [id number] Screw Locking T2 D5xl55 - [id number] Implanted:Qty: 1 on 05/01/2021 by Bebeto Flynn MD at [facility] Screw Left: Femur [employer] ([facility][id number] 12/04/2030 2360-5055S / / [id number] Screw Locking T2 D5x32.5 - [id number] Implanted:Qty: 1 on 05/01/2021 by Bebeto Flynn MD at [facility] Screw Left: [employer] ([facility][id number] 01/04/2031 2360-5032S / / [id number] Screw Locking T2 D5x37.5 - [id number] Implanted:Qty: 1 on 05/01/2021 by Bebeto Flynn MD at [facility] Screw Left: Femur [employer] ([facility][id number] 01/04/2031 2360-5037S / / [id number] Procedures Procedure Name Priority Date/Time Associated Diagnosis [...] Adults <6.0% Children and Adolescents <7.5% Source: ??[place] Diabetes Association. Standards of medical care in diabetes,2017. Diabetes Care.2017:40 (suppl 1):S1-S135. HbA1c assay performed by an ion-exchange chromatography method that is certified traceable to the DCCT. us Drew Matos MD LAB BLOOD ORDERABLES Final Re sult [facility] [address] [place] [address] from Last 3 Months or Most Recently Relevant to Health Maintenance Insurance [employer] MEDICARE Advance Directives * Full Code (Latest Code Status on File) Date Activated Date Inactivated Comments 04/30/2021 4:10 PM 05/07/2021 11:19 AM Question Answer Comments Patient has decision-making capacity? Yes Care Teams Financial Operations Analyst Relationship Specialty Start Date End Date Salima Gonzáles DO [address] [place] [address] PCP - General 09/17/20
--- OUTSIDE RECORDS SUMMARY | 2024-04-06 23:29 | XMS_ITS | Encounter Summary ---
Author Organization Healthcare Address [address] [place] [id number] Care Team Providers Care Collection Clerk Name Role Phone Salima Gonzáles Primary Care Provider [phone] Reason for Visit * Reason Comments Post-op Encounter Details Date Type Department Care Team (Latest Contact Info) Description 06/07/2021 10:50 AM EST Office Visit Medical Office Building [facility] [address], [address] [place] [address] Neela Flynn MD [address] [place] [address] Closed fracture of distal end of left femur with routine healing, unspecified fracture morphology, subsequent encounter (Primary Dx); Displaced intertrochanteric fracture of left femur, init (CMS/[facility]) Social History Tobacco Use Types Packs/Day Years [...] LEFT 2+ VIEWS ordered by NEELA FLYNN, [id number] CLINICAL INDICATION: Pain TECHNIQUE: XR FEMUR LEFT [...] LEFT 2+ VIEWS ordered by NEELA FLYNN, [id number] CLINICAL INDICATION: Pain TECHNIQUE: XR FEMUR LEFT [...] Displaced intertrochanteric fracture of left femur, init (CMS/[facility]) documented in this encounter Additional Health Concerns Assessment Noted Time A fall risk assessment has been complete d for the patient 06/07/2021 10:34 AM EST documented as of this encounter Care Teams Collection Clerk Relationship Specialty Start Date End Date Salima Gonzáles DO [address] [place] [address] PCP - General 09/17/20 documented as of this encounter
--- OUTSIDE RECORDS SUMMARY | 2024-04-06 23:29 | XMS_ITS | Encounter Summary ---
Author Organization [facility] Address [address] [place] [address] Care Team Providers Care Dampener Name Role Phone Salima Gonzáles DO Primary Care Provider [phone] Encounter Details Date Type Department Care Team (Late st Contact Info) Description 02/27/2023 Telephone [facility] Radiology [address] [place] [address] Sophie Prince RN [facility] Social History [...] documented as of this encounter Care Teams Dampener Relationship Specialty Start Date End Date Salima Gonzáles DO [address] [place] [address] PCP - General 09/17/20 documented as of this encounter
--- OUTSIDE RECORDS SUMMARY | 2024-04-06 23:29 | XMS_ITS | Encounter Summary ---
Author Organization [facility] Address [address] [place], [place] [address] Care Team Providers Care Block Captain Name Role Phone Salima Gonzáles Primary Care Provider [phone] Reason for Visit * Reason Comments Post-op Encounter Details Date Type Department Care Team ([facility] st Contact Info) Description 05/17/2021 8:10 AM EST Office Visit Medical Office Building [facility] [address], [address] [place] [address] Bebeto Flynn MD [address] [place] [address] Closed fracture of distal end [...] and actively ranging knee w/out major issue. Heath removed today and steri strips placed. F/u [...] documented as of this encounter Care Teams Block Captain Relationship Specialty Start Date End Date Salima Gonzáles DO [address] [place] [address] [place] [address] PCP - General 09/17/20 documented as of this encounter
--- OUTSIDE RECORDS SUMMARY | 2024-04-06 23:29 | XMS_ITS | Encounter Summary ---
Author Organization [employer] Address [address] [place] [address] Care Team Providers Care Machine Tank Operator Name Role Phone Salima Gonzáles DO Primary Care Provider [phone] Encounter Details Date Type Department Care Team (Late st Contact Info) Description 10/08/2019 Transcribed Document [facility] Family [place] [address] ProviderQuincy MD [address] [place] [address] Social History Tobacco Use Types Packs/Day Years Used Date Smoking Tobacco: Never Assessed Comments Unknown Sex and Gender Information Value Date Recorded Sex Assigned at Not on file Legal Sex Female 2:54 PM CDT Gender Identity Not on file Sexual Orientation Not on file documented as of this encounter Miscellaneous Notes * Cerner Conversion Note - Quincy Kate MD - 10/08/2019 9:30 AM CDT [facility] Endo PreOp Summary Primary Physician: WARREN MANRIQUE MD Finalized Date/Time: 10/08/19 09:35:21 Pt. Name: AMBIKA PIERRE/Sex: 1965 Female Med Rec #: [id number] Physician: WARREN MANRIQUE MD Financial #: [id number] Pt. Type: O Room/Bed: / Admit/Disch: 10/08/19 08:47:00 - Institution: [facility] Endo PreOp Case Times Entry 1 In Preop 10/08/19 09:08:00 Ready for Holding n/a Room Patient Ready for n/a Surgery Patient Out of Preop 10/08/19 09:33:00 Patient Out of n/a Holding Room Last Modified By: Whitney Huynh Rn 10/08/19 09:35:13 [facility] Endo PreOp Case Times Audit 10/08/19 09:35:13 Egg Trayer: [email or web address] Modifier: HEATHERLAWRENCE <+> 1 Patient Out of Preop Finalized By: Whitney Huynh, Rn Document Signatures Signed By: Whitney Huynh Rn 10/08/19 09:35 documented in this encounter Plan of Treatment Not on file documented as of this encounter Visit Diagnoses Not on filedocumented in this encounter Care Teams Machine Tank Operator Relationship Specialty Start Date End Date Salima Gonzáles, DO [address] [facility] [address] [place] [address] PCP - General Family Medicine 02/09/23 documented as of this encounter
--- OUTSIDE RECORDS SUMMARY | 2024-04-06 23:29 | XMS_ITS | Encounter Summary ---
Author Organization [employer] Address [address] [place] [address] Care Team Providers Care Paper Mill Superintendent Name Role Phone Anujlizbet Salima Tate SWANN Primary Care Provider [phone] Encounter Details Date Type Department Care Team (Late st Contact Info) Description 10/08/2019 Transcribed Document [facility] [place] [address] [place] [address] ProviderQuincy MD [address] [place] [address] Social History Tobacco Use Types Packs/Day [...] serving. ??? Talk with a diet and dairy nutritionist (dietitian) if you have questions about specific [...] Bulgur wheat. Millet. Quinoa. Bran muffins. Popcorn. [place] wafer crackers. Meats and other proteins [place], kidney, and cox beans. Soybeans. Split peas. [...] Cream cheese. Sour cream. Fats and oils [place]. Beverages Soft drinks. Other foods Cakes and [...] 04/23/2006 Document Revised: 02/25/2018 Document Reviewed: 02/25/2018 [employer] Interactive Patient Education ? 2019 RingMD. Gastritis, Adult Gastritis is swelling (inflammation) of [...] these instructions at home: Medicines ??? Take bztn-vfs-domwiyr and prescription medicines only as told by [...] 10/09/2008 Document Revised: 09/10/2018 Document Reviewed: 09/10/2018 [employer] Interactive Patient Education ? 2019 RingMD. Colitis Colitis is inflammation of the colon. [...] you start to feel better. ??? Take hvtd-dnr-spailas and prescription medicines only as told by [...] 05/31/2005 Document Revised: 10/24/2018 Document Reviewed: 10/24/2018 [employer] Interactive Patient Education ? 2019 RingMD. Hemorrhoids Hemorrhoids are swollen veins that may [...] times a day. General instructions ??? Take gnss-cgn-gkjwwfd and prescription medicines only as told by [...] 01/30/2009 Document Revised: 09/12/2018 Document Reviewed: 09/12/2018 [employer] Interactive Patient Education ? 2019 [employer]. Colonoscopy, Adult, Care After This sheet [...] soft and easy to digest. ??? Take pciy-dpr-kjtohoa or prescription medicines only as told by [...] 05/26/2011 Document Revised: 02/21/2018 Document Reviewed: 01/15/2017 [employer] Interactive Patient Education ? 2019 [employer]. Esophagogastroduodenoscopy, Care After Refer to this [...] 04/09/2013 Document Revised: 09/28/2016 Document Reviewed: 03/16/2016 Else[employer]pic[employer] Interactive Patient Education ? 2019 RingMD. documented in this encounter Plan of Treatment Not on file documented as of this encounter Visit Diagnoses Not on filedocumented in this encounter Care Teams Paper Mill Superintendent Relationship Specialty Start Date End Date Salima Gonzáles, [facility] [address] [place] [address] PCP - General Family Medicine 02/09/23 documented as of this encounter
--- OUTSIDE RECORDS SUMMARY | 2024-04-06 23:29 | XMS_ITS | Encounter Summary ---
Author Organization [employer] Address [address] [place] [address] Care Team Providers Care Caravan Park And Camping Ground Manager Name Role Phone Salima Gonzáles DO Primary Care Provider [phone] Encounter Details Date Type Department Care Team (Late st Contact Info) Description 10/08/2019 Transcribed Document [facility] [place] Family Medicine [facility] [place] [address] ProviderQuincy MD [address] [place] [address] Social History Tobacco Use Types Packs/Day [...] Kate MD - 10/08/2019 9:47 AM CDT [facility] Endo IntraOp Summary Primary Physician: WARREN MANRIQUE MD Finalized Date/Time: 10/08/19 10:06:04 Pt. Name: JACOB CHRISTINA AMBIKAMONICA Granados/Sex: 1965 Female Med Rec #: [id number] Physician: WARREN MANRIQUE MD Financial #: [id number] Pt. Type: O Room/Bed: / Admit/Disch: 10/08/19 08:47:00 - Institution: [facility] Endo - Case Attendance Entry 1 Entry 2 Entry 3 Case Attendee WARREN MANRIQUE MD DUNHAM, JEANNIE Thayer, Dena, RN Role Performed Surgeon/Proceduralist, Scrub, Hospitalist, First First Time In 10/08/19 09:38:00 10/08/19 [...] DAKOTA Amaya MD-ANS Role Performed Scrub, First UPS DRIVER/Nurse Head Rose Grower Anesthesiologist of Record Time In 10/08/19 09:38:00 10/08/19 09:38:00 10/08/19 09:38:00 Time Out 10/08/19 10:06:00 10/08/19 10:06:00 10/08/19 10:06:00 Procedure Gastric Biopsy, Colon Gastric Biopsy, Colon Gastric Biopsy, Colon Biopsy Biopsy Biopsy Other Attendee Superficial Wound Closed By: Last Modified By: Elizabeth Anaya RN Thayer, Dena, RN Thayer, Dena, RN 10/08/19 10:03:23 10/08/19 10:03:23 10/08/19 10:03:23 [facility] Endo - Case Attendance Audit 10/08/19 10:03:23 Marketing Underwriter: [id number] Modifier: [id number] 1 <+> Time Out 1 <*> Procedure [...] Procedure Gastric Biopsy, Colon Biopsy 10/08/19 10:02:21 Marketing Underwriter: [id number] Modifier: [id number] 1 <*> Procedure Esophagogastroduodenoscopy, Colonoscopy, Gastric Biopsy 2 <*> Procedure Gastric Biopsy 3 <*> Procedure Gastric Biopsy 4 <*> Procedure Gastric Biopsy 5 <*> Procedure Gastric Biopsy 6 <*> Procedure Gastric Biopsy 10/08/19 09:50:05 Marketing Underwriter: [id number] Modifier: [id number] 1 <*> Procedure Esophagogastroduodenoscopy, Colonoscopy <+> 2 Procedure <+> 3 Procedure <+> 4 Procedure <+> 5 Procedure <+> 6 Procedure 10/08/19 09:39:56 Marketing Underwriter: [id number] Modifier: [id number] 1 <+> Time In 1 <*> Procedure Esophagogastroduodenoscopy, Colonoscopy <+> 2 Time In <+> 3 Time In <+> 4 Time In <+> 5 Time In <+> 6 Time In 10/08/19 09:31:42 Marketing Underwriter: [id number] Modifier: [id number] <+> 2 Case Attendee <+> 2 Role Performed <+> 3 Case Attendee <+> 3 Role Performed <+> 4 Case Attendee <+> 4 Role Performed <+> 5 Case Attendee <+> 5 Role Performed <+> 6 Case Attendee <+> 6 Role Performed [facility] Endo - Case times Entry 1 Patient In Room Time 10/08/19 09:38:00 Out Room Time 10/08/19 10:06:00 Anesthesia Start Time 10/08/19 09:38:00 Stop Time 10/08/19 10:06:00 Surgery / Procedure Times Start Time 10/08/19 09:47:00 Stop Time 10/08/19 10:03:00 Last Modified By: Elizabeth Anaya, RN 10/08/19 10:03:21 [facility] Endo - Case times Audit 10/08/19 10:03:21 Marketing Underwriter: [id number] Modifier: [id number] <+> 1 Out Room Time <+> 1 Stop Time <+> 1 Stop Time 10/08/19 09:47:20 Marketing Underwriter: [id number] Modifier: [id number] <+> 1 Start Time [facility] Endo - Cultures and Spec Summary Entry 1 Cultrures and Specimens Specimen Ordered: Yes Test(s) Routine/Path-Lab Requested/Final Disposition Last Modified By: Elizabeth Anaya RN 10/08/19 09:50:17 [facility] Endo - Delays Entry 1 Delay Reason No Delay Duration 0 Minute(s) Last Modified By: Elizabeth Anaya RN 10/08/19 09:32:22 [facility] Endo - Departure from OR Entry 1 Integumentary Assessment Integumentary WDL Assessment WDL Transfer/Handoff Transfer to PACU Phase I Handoff Method Bedside/Face to face Post-op Transport Stretcher/Gurney Via Patient Transport Claudia Dupree Crna Accompanied by Last Modified By: Elizabeth Anaya RN 10/08/19 09:32:45 [facility] Endo - Endoscopy Details Entry 1 Abdomen Procedure Soft, Non-Tender Assessment Procedure Abdomen 10/08/19 09:32:00 Assessment D/T Radio Frequency Ablation Abdominal Pressure Last Modified By: Elizabeth Anaya RN 10/08/19 09:32:34 [facility] Endo - Fire Risk Assessment Entry 1 [...] Modified By: Elizabeth Anaya RN 10/08/19 09:33:30 [facility] Endo - Fire Risk Assessment Audit 10/08/19 09:33:30 Marketing Underwriter: [id number] Modifier: [id number] <+> 1 Fire Risk Assessment Complete [facility] Endo - General Case Bake Room Worker 1 Case Information OR Endo 03 [facility] Case Level 1 Room Verified Yes Wound Class III - Contaminated Specialty SN Gastroenterology Anesthesia Type General ASA Class 4 Diagnosis Preop Diagnosis dyspepsia, change in bowel habits Postop Same As Preop No Postop Diagnosis Chronic gastritis, history gastric bypass Last Modified By: Elizabeth Anaya RN 10/08/19 09:52:07 [facility] Endo - General Case Data Audit 10/08/19 09:52:07 Marketing Underwriter: [id number] Modifier: [id number] 1 <*> Postop Same As Preop Yes 1 <*> Postop Diagnosis dyspepsia, change in bowel habits 10/08/19 09:43:44 Marketing Underwriter: [id number] Modifier: [id number] 1 <*> Preop Diagnosis R19.7 R10.9 1 <*> Postop Diagnosis R19.7 R10.9 [facility] Endo - Intraoperative Assessment Entry 1 Valid History / Yes Physical in Chart Preoperative Yes Checklist Reviewed/Evaluated Patient is Latex No Sensitive Level of WDL Consciousness (WDL = Alert, Oriented to Person, Place, and Time) Last Modified By: Elizabeth Anaya RN 10/08/19 09:33:43 [facility] Endo - Intraoperative Equipment Entry 1 Equipment Intraop Monitoring Electrocardiogram Three lead placement (ECG) Electrode Placement Blood Pressure Arm, left upper Location Pulse Oximeter Hand, right Probe Site Antiembolic Devices Scopes Flexible Endoscopes Gastroscope Used Scope Serial E O Number/Identificatio n Number Photo/Video Documentation Photo Yes Video No Last Modified By: Elizabeth Anaya RN 10/08/19 09:43:26 [facility] Endo - Patient Positioning Entry 1 Procedure [...] Modified By: Elizabeth Anaya RN 10/08/19 10:02:22 [facility] Endo - Patient Positioning Audit 10/08/19 10:02:22 Marketing Underwriter: [id number] Modifier: [id number] 1 <*> Procedure Esophagogastroduodenoscopy, Gastric Biopsy 10/08/19 09:50:05 Marketing Underwriter: [id number] Modifier: [id number] 1 <*> Procedure Esophagogastroduodenoscopy [facility] Endo - Sign In Entry 1 Patient, Site, Yes Procedure Identified Surgical Consent Yes Confirmed Surgical Site N/A Marked by person performing procedure Airway Hypothermia Risk No Warming Measures No Taken Last Modified By: Elizabeth Anaya RN 10/08/19 09:34:14 [facility] Endo - Sign Out Entry 1 RN [...] Modified By: Elizabeth Anaya RN 10/08/19 10:04:03 [facility] Endo - Surgical Procedures Entry 1 Entry [...] Modified By: Elizabeth Anaya RN 10/08/19 10:03:34 [facility] Endo - Surgical Procedures Audit 10/08/19 10:03:34 Marketing Underwriter: [id number] Modifier: [id number] 2 <*> Procedure Colonoscopy 2 <+> Stop <+> 4 Stop 10/08/19 10:02:18 Marketing Underwriter: [id number] Modifier: [id number] 2 <*> Procedure Colonoscopy 2 <*> Start 10/08/19 09:47:00 2 <+> Physician States Cecum Reached <+> 4 Procedure <+> 4 Primary Procedure <+> 4 Primary Surgeon <+> 4 Specialty <+> 4 Start <+> 4 Wound Class <+> 4 Anesthesia Type <+> 4 Additional Procedure Description <+> 4 Physician States Cecum Reached 10/08/19 09:51:41 Marketing Underwriter: [id number] Modifier: [id number] <*> Procedure Gastric Biopsy 3 <+> Stop 10/08/19 09:50:35 Marketing Underwriter: [id number] Modifier: [id number] 1 <*> Procedure Esophagogastroduodenoscopy 1 <+> Stop 10/08/19 09:50:01 Marketing Underwriter: [id number] Modifier: [id number] 1 <*> Procedure Esophagogastroduodenoscopy 1 <+> Start 1 <+> Additional Procedure Description <+> 2 Start <+> 3 Procedure <+> 3 Primary Procedure <+> 3 Primary Surgeon <+> 3 Specialty <+> 3 Start <+> 3 Wound Class <+> 3 Anesthesia Type <+> 3 Additional Procedure Description [facility] Endo - Time Out Entry 1 Procedure [...] Modified By: Elizabeth Anaya RN 10/08/19 10:02:22 [facility] Endo - Time Out Audit 10/08/19 10:02:22 Marketing Underwriter: [id number] Modifier: [id number] 1 <*> Procedure to be Performed Esophagogastroduodenoscopy, Colonoscopy, Gastric Biopsy 10/08/19 09:50:06 Marketing Underwriter: [id number] Modifier: [id number] 1 <*> Procedure to be Performed Esophagogastroduodenoscopy, Colonoscopy Case Comments <None> Finalized By: Elizabeth Anaya, RN Document Signatures Signed By: Elizabeth Anaya RN 10/08/19 10:06 Electronically signed by [facility] Conversion Grinding And Polishing Laborer Cerner at 08/23/2022 10:56 AM CDT documented in this encounter Plan of Treatment Not on file documented as of this encounter Visit Diagnoses Not on filedocumented in this encounter Care Teams Caravan Park And Camping Ground Manager Relationship Specialty Start Date End Date Salima Gonzáles, [address] [facility] [address] [place] [address] PCP - General Family Medicine 02/09/23 documented as of this encounter
--- OUTSIDE RECORDS SUMMARY | 2024-04-06 23:29 | XMS_ITS | Encounter Summary ---
Author Organization [employer] Address [address] [place] [address] Care Team Providers Care Retail Service Specialist Name Role Phone Salima Gonzáles Primary Care Provider [phone] Encounter Details Date Type Department Care Team (Late st Contact Info) Description 10/03/2020 Transcribed Document [facility] [place] [address] [place] [address] ProviderQuincy MD [address] [place] [id number] Social History Tobacco Use Types Packs/Day Years [...] Pain Scale Intensity : 3 Janae Avery, CANCER GENETIC COUNSELOR - 10/05/2020 3:28 EDT Image 4 - Images currently included in the form version of this document have not been included in the text rendition version of the form. documented in this encounter Plan of Treatment Not on file documented as of this encounter Visit Diagnoses Not on filedocumented in this encounter Care Teams Retail Service Specialist Relationship Specialty Start Date End Date Salima Gonzáles, [address] [facility] [address] [place] [address] PCP - General Family Medicine 02/09/23 documented as of this encounter
--- OUTSIDE RECORDS SUMMARY | 2024-04-06 23:29 | XMS_ITS | Encounter Summary ---
Author Organization [employer] Address [address] [place] [address] Care Team Providers Care Copyright Clerk Name Role Phone Salima Gonzáles Primary Care Provider [phone] Encounter Details Date Type Department Care Team (Late st Contact Info) Description 10/03/2020 Transcribed Document [facility] [place] Family Medicine [address] [place] [address] ProviderQuincy MD [address] [place] [address] Social History Tobacco Use Types Packs/Day [...] 10/04/2020 13:56 EDT Electronically signed by [place] [facility] Conversion Anti Tank Missileman Cerner at 08/23/2022 11:01 AM CDT documented in this encounter Plan of Treatment Not on file documented as of this encounter Visit Diagnoses Not on filedocumented in this encounter Care Teams Copyright Clerk Relationship Specialty Start Date End Date Salima Gonzáles, DO [address] [address] PCP - General Family Medicine 02/09/23 documented as of this encounter
--- OUTSIDE RECORDS SUMMARY | 2024-04-06 23:29 | XMS_ITS | Encounter Summary ---
Author Organization [facility] Address [address] [id number] Care Team Providers Care Major League Baseball Player Name Role Phone Salima Gonzáles DO Primary Care Provider [phone] Reason for Referral * Imaging (Routine) - Closed Specialty Diagnoses / Procedures Referred By Contac t Referred To Contact Radiology Diagnoses Abnormal findings on diagnostic imaging of heart and coronary circulation Chest pain, unspecified Precordial chest pain Procedures CT Angio Cardiac Coronary Arteries Radiology Virtual Dept. [address] [place] [phone] Phone: tel: Referral ID Status Reason Start Date Expiration Date Visits Re quested Visits Authorized [id number] Closed 02/13/2023 08/14/2024 1 1 Reason for Visit * Imaging (Routine) - Closed Specialty Diagnoses / Procedures Referred By Contac t Referred To Contact Radiology Diagnoses Abnormal findings on diagnostic imaging of heart and coronary circulation Chest pain, unspecified Precordial chest pain Procedures CT Angio Cardiac Coronary Arteries Radiology Virtual Dept. [address] [place] [phone] Phone: tel: Referral ID Status Reason Start Date Expiration Date Visits Re quested Visits Authorized [id number] Closed 02/13/2023 08/14/2024 1 1 Encounter Details Date Type Department Care Team (Latest Contact Info) Description 03/27/2023 11:30 AM EST - 03/27/2023 11:59 PM EST Hospital Encounter [facility] Radiology [address] [place] [address] Abnormal findings on diagnostic imaging [...] Everywhere. * Contrast Imaging Discharge Instructions ([place]) (Colombian) documented in this encounter Medications at [...] source 192 MDCT scanner ([employer]) was used for data acquisition. A [...] was reviewed interactively on an advanced workstation ([employer]) capable of 2 and 3 dimensional displays [...] Data wasreviewed interactively on an advanced workstation ([employer]) capable of 2and 3 dimensional displays in [...] * POCT creatinine (03/27/2023 11:52 AM EST) [facility] Creatinine, Point of Care 1.0 0.6 - 1.1 mg/dL 03/27/2023 11:57 AM EST [facility] POCT eGFR 65 mL/min/1. 73m*2 03/27/2023 11:57 AM EST [facility] Dried Fruit Washer ID Gary Pratt 03/27/2023 11:57 AM EST [facility] Device ID [id number] 03/27/2023 11:57 AM EST [facility] Comment 03/27/2023 11:57 AM EST [facility] Comment:Testing performed on i-STAT at the point of care. Reported eGFRcr in mL/min/1.73m2 is based the CKD-EPI 2020 equation that does not use a race coefficient. Blood Venous blood specimen / Unknown 03/27/2023 11:52 AM EST 03/27/2023 11:57 AM EST us Generic Provider Poct LAB POINT OF CARE TEST DOCKED DEVICE UNSOLICITED RESULTS Final Result [facility] [address] [place] [address] documented in this encounter Visit Diagnoses Diagnosis [...] documented as of this encounter Care Teams Major League Baseball Player Relationship Specialty Start Date End Date Salima Gonzáles DO [facility] [place] [address] PCP - General 09/17/20 documented as of this encounter
--- OUTSIDE RECORDS SUMMARY | 2024-04-06 23:29 | XMS_ITS | Encounter Summary ---
Author Organization [employer] Address [address] [place] [address] Care Team Providers Care Box Spinner Name Role Phone Salima Gonzáles Primary Care Provider [phone] Encounter Details Date Type Department Care Team (Late st Contact Info) Description 10/08/2019 Transcribed Document [facility] [place] [address] [place] [address] ProviderQuincy MD [address] [place] [address] Social History Tobacco Use Types Packs/Day [...] Source : Stated Height Entry Format : [place] Height, Feet : 5 ft(Converted to: 152 cm, 60 Inch) Height, Inches : 1 Inch(Converted to: 0 ft 1 Inch, 2.54 cm) Clinical Height : 154.94 cm Weight Source : Standing scale Weight Entry Format : [place] Clinical Dosing Weight : 118.55 kg Weight, Pounds : 260.8 lb Body Surface Area (BSA) : 2.12 m2 Body Mass Index : 49.4 kg/m2 (>HHI) [place] Body Weight : 47 kg Whitney Huynh Rn - 10/08/2019 9:18 EDT Health Histories Smoking Status : 10 or more cigarettes (1/2 pack or more)/day in last 30 days Smokeless Tobacco Status : Never Desires Tobacco Cessation Medication : No Reason for No Tobacco Cessation Medication : ED/procedural patient only Whiteny Huynh Rn - 10/08/2019 9:18 EDT Social [...] Whitney Huynh Rn - 10/08/2019 9:18 EDT [place] Suicide Severity Rating Scale (C-SSRS) CSSRS Past [...] #2 Relationship : na Primary Language : Congolese Communication Barrier : None Whitney Huynh Rn [...] Scale Risk Level : 0-24 Low Risk Adrian Fall Interventions : Adequate lighting, Call device [...] on filedocumented in this encounter Care Teams Box Spinner Relationship Specialty Start Date End Date Salima Gonzáles, 8 [facility] [address] [place] [address] PCP - General Family Medicine 02/09/23 documented as of this encounter
--- OUTSIDE RECORDS SUMMARY | 2024-04-06 23:29 | XMS_ITS | Encounter Summary ---
Author Organization [facility] Address [address] [place] [address] Care Team Providers Care Hog Ringer Name Role Phone Salima Gonzáles DO Primary Care Provider [phone] Encounter Details Date Type Department Care Team [...] documented as of this encounter Care Teams Hog Ringer Relationship Specialty Start Date End Date Salima Gonzáles DO [address] [place], [place] [address] [place] [address] PCP - General 09/17/20 documented as of this encounter
--- OUTSIDE RECORDS SUMMARY | 2024-04-06 23:29 | XMS_ITS | Encounter Summary ---
Author Organization [employer] Address [address] [place] [address] Care Team Providers Care Child Care Group Leader Name Role Phone Salima Gonzáles Primary Care Provider [phone] Encounter Details Date Type Department Care Team (Late st Contact Info) Description 10/08/[address] [facility] [place] Family [place] [facility] [place] [address] ProviderQuincy MD [address] [place] [phone] Social History Tobacco Use Types Packs/Day Years [...] 10/08/19 09:53:00 (10/08/19 10:02:18) Electronically signed by [facility] Conversion Court Reporter Cerner at 08/23/2022 11:05 AM CDT documented in this encounter Plan of Treatment Not on file documented as of this encounter Visit Diagnoses Not on filedocumented in this encounter Care Teams Child Care Group Leader Relationship Specialty Start Date End Date Salima Gonzáles, [address] [address] PCP - General Family Medicine 02/09/23 documented as of this encounter
--- OUTSIDE RECORDS SUMMARY | 2024-04-06 23:29 | XMS_ITS | Encounter Summary ---
Author Organization [facility] Address [address] [place] [address] Care Team Providers Care Barrel Finisher Name Role Phone Salima Gonzáles DO Primary Care Provider [phone] Encounter Details Date Type Department Care Team [...] documented as of this encounter Care Teams Barrel Finisher Relationship Specialty Start Date End Date Salima Gonzáles DO [address] [place] [address] PCP - General 09/17/20 documented as of this encounter
--- OUTSIDE RECORDS SUMMARY | 2024-04-06 23:29 | XMS_ITS | Encounter Summary ---
Author Organization [employer] Address [address] [place] [address] Care Team Providers Care Phlebotomy Technician Name Role Phone Salima Gonzáles DO Primary Care Provider [phone] Encounter Details Date Type Department Care Team (Late st Contact Info) Description 10/08/2019 Transcribed Document [facility] Family Medicine [facility] [place] [address] ProviderQuincy MD [address] [place] [address] Social History Tobacco Use Types Packs/Day [...] Kate MD - 10/08/2019 9:[address] [facility] Endo PACU Summary Primary Physician: WARREN MANRIQUE MD Finalized Date/Time: 10/08/19 10:47:05 Pt. Name: AMBIKA PIERRE/Sex: 1965 Female Med Rec #: [id number] Physician: WARREN MANRIQUE MD Financial #: [id number] Pt. Type: O Room/Bed: / Admit/Disch: 10/08/19 08:47:00 - Institution: [facility] PACU Case Times Entry 1 In PACU I 10/08/19 10:09:00 Ready for PACU 10/08/19 10:42:00 Discharge Discharge from PACU 10/08/19 10:45:00 I Last Modified By: Yasmine Al RN 10/08/19 10:43:05 [facility] Endo PACU Case Times Audit 10/08/19 10:45:09 Branch Library Clerk: [id number] Modifier: [id number] <+> 1 Discharge from PACU I Finalized By: Yasmine Al RN Document Signatures Signed By: Yasmine Al RN 10/08/19 10:47 Electronically signed by [facility] Conversion Line Welder Cerner at 08/23/2022 10:59 AM CDT documented in this encounter Plan of Treatment Not on file documented as of this encounter Visit Diagnoses Not on filedocumented in this encounter Care Teams Phlebotomy Technician Relationship Specialty Start Date End Date Salima Gonzáles, 8 [facility] [address] [place] [address] PCP - General Family Medicine 02/09/23 documented as of this encounter
--- OUTSIDE RECORDS SUMMARY | 2024-04-06 23:29 | XMS_ITS | Encounter Summary ---
Author Organization [facility] Address [address] [place] [address] Care Team Providers Care Expansion Joint Builder Name Role Phone Salima Gonzáles DO Primary Care Provider [phone] Encounter Details Date Type Department Care Team [...] documented as of this encounter Care Teams Expansion Joint Builder Relationship Specialty Start Date End Date Salima Gonzáles DO [address] [place] [address] PCP - General 09/17/20 documented as of this encounter
--- OUTSIDE RECORDS SUMMARY | 2024-04-06 23:29 | XMS_ITS | Encounter Summary ---
Author Organization [employer] Address [address] [place] [address] Care Team Providers Care Produce Sorter Name Role Phone Salima Gonzáles Primary Care Provider [phone] Encounter Details Date Type Department Care Team (Late st Contact Info) Description 10/08/2019 Transcribed Document [facility] Family Medicine Formerly [facility] [place] [address] ProviderQuincy MD [address] [place] [address] Social History Tobacco Use Types Packs/Day [...] Kate MD - 10/08/2019 10:35 AM CDT [facility] [place] [address] AMBIKA PIERRE :1965 Visit Time:10/08/2019 What [...] office, November 09 at 11:00am Where: [address] [facility] [address] [place] [id number] Medications What How Much When Instructions Next [...] serving. ??? Talk with a diet and food and nutrition services supervisor (dietitian) if you have questions about specific [...] Bulgur wheat. Millet. Quinoa. Bran muffins. Popcorn. [place] wafer crackers. Meats and other proteins [place], kidney, and cox beans. Soybeans. Split peas. [...] Cream cheese. Sour cream. Fats and oils [place]. Beverages Soft drinks. Other foods Cakes and [...] 04/23/2006 Document Revised: 02/25/2018 Document Reviewed: 02/25/2018 [employer] Patient Education ?? 2019 [employer]. Gastritis, Adult Gastritis is swelling (inflammation) of [...] these instructions at home: Medicines ??? Take bamn-onf-uvvizcg and prescription medicines only as told by [...] 10/09/2008 Document Revised: 09/10/2018 Document Reviewed: 09/10/2018 [employer] Patient Education ?? 2019 [employer] Weather. Colitis Colitis is inflammation of the colon. [...] you start to feel better. ??? Take gtss-tgm-mzculue and prescription medicines only as told by [...] 05/31/2005 Document Revised: 10/24/2018 Document Reviewed: 10/24/2018 [employer] Patient Education ?? 2019 [employer] Hemorrhoids Hemorrhoids are swollen veins that [...] times a day. General instructions ??? Take mucq-try-seawgwl and prescription medicines only as told by [...] 01/30/2009 Document Revised: 09/12/2018 Document Reviewed: 09/12/2018 [employer] Patient Education ?? 2019 [employer] Weather. Colonoscopy, Adult, Care After This sheet gives [...] soft and easy to digest. ??? Take ysjx-eus-dnuktsx or prescription medicines only as told by [...] 05/26/2011 Document Revised: 02/21/2018 Document Reviewed: 01/15/2017 [employer] Patient Education ?? 2019 [employer] Esophagogastroduodenoscopy, Care After Refer to this [...] 04/09/2013 Document Revised: 09/28/2016 Document Reviewed: 03/16/2016 [employer] Patient Education ?? 2019 [employer] Weather. metronidazole (me irma hawk) FIRST Metronidazole, Flagyl, [...] (more likely to occur while taking metronidazole senior care): ?? numbness, tingling, or burning pain in [...] may report side effects to FDA at 7-190-TQP-6349. What other drugs will affect metronidazole? Sometimes [...] drugs may affect metronidazole, including prescription and dhnf-zit-luioyhl medicines, vitamins, and herbal products. Not all [...] to ensure that the information provided by [employer]. ('[employer]') is accurate, up-to-date, and complete, but no guarantee is made to that effect. Drug information contained herein may be time sensitive. [employer] information has been compiled for use by healthcare practitioners and consumers in the [place] and therefore [employer] does not warrant that uses outside of the [place] are appropriate, unless specifically indicated otherwise. [employer] drug information does not endorse drugs, diagnose patients or recommend therapy. [employer] drug information is an informational resource designed [...] effective or appropriate for any given patient. [employer] does not assume any responsibility for any aspect of healthcare administered with the aid of information [employer] provides. The information contained herein is not intended to cover all possible uses, directions, precautions, warnings, drug interactions, allergic reactions, or adverse effects. If you have questions about the drugs you are taking, check with your doctor, nurse or pharmacist. Copyright 6194-8386 [employer]. Version: 12.. Revision Date: 02/25/2018. linaclotide (GENEVIEVE [...] may report side effects to FDA at 9-850-EPW-8523. What other drugs will affect linaclotide? Other drugs may interact with linaclotide, including prescription, elzv-esb-liehqhx, vitamin, and herbal products. Tell your doctor [...] to ensure that the information provided by [employer]. ('[employer]') is accurate, up-to-date, and complete, but no guarantee is made to that effect. Drug information contained herein may be time sensitive. [employer] information has been compiled for use by healthcare practitioners and consumers in the [place] and therefore [employer] does not warrant that uses outside of the [place] are appropriate, unless specifically indicated otherwise. [employer] drug information does not endorse drugs, diagnose patients or recommend therapy. [employer] drug information is an informational resource designed [...] effective or appropriate for any given patient. [employer] does not assume any responsibility for any aspect of healthcare administered with the aid of information [employer] provides. The information contained herein is not intended to cover all possible uses, directions, precautions, warnings, drug interactions, allergic reactions, or adverse effects. If you have questions about the drugs you are taking, check with your doctor, nurse or pharmacist. Copyright 3839-8980 [employer]. Version: 4.02. Revision Date: 01/23/2017. pantoprazole (oral/injection) [...] a broken bone while taking this medicine senior care or more than once per day. What [...] may report side effects to FDA at 1-518-OEO-6974. What other drugs will affect pantoprazole? Tell your doctor about all your other medicines, especially: ?? digoxin; ?? methotrexate; or ?? a diuretic or 'water pill.' This list is not complete. Other drugs may affect pantoprazole, including prescription and srrj-lvh-kpnifqt medicines, vitamins, and herbal products. Not all [...] to ensure that the information provided by [employer]. ('[employer]') is accurate, up-to-date, and complete, but no guarantee is made to that effect. Drug information contained herein may be time sensitive. [employer] information has been compiled for use by healthcare practitioners and consumers in the [place] and therefore [employer] does not warrant that uses outside of the [place] are appropriate, unless specifically indicated otherwise. [employer] drug information does not endorse drugs, diagnose patients or recommend therapy. [employer] drug information is an informational resource designed [...] effective or appropriate for any given patient. [facility] does not assume any responsibility for any aspect of healthcare administered with the aid of information [facility] provides. The information contained herein is not intended to cover all possible uses, directions, precautions, warnings, drug interactions, allergic reactions, or adverse effects. If you have questions about the drugs you are taking, check with your doctor, nurse or pharmacist. Copyright 8730-8902 [facility] [employer]. Version: 19.02. Revision Date: 10/30/2017. Emergency Awareness [...] Assistance with quitting is available by contacting 6-957-TKPW-NOW. This is a free resource providing counseling, [...] was given the opportunity to ask questions. Patient/Processing Manager Name: Patient/Processing Manager Signature: Relationship to Patient: Clinician/Hospital Processing Manager Signature: Date: documented in this encounter Plan of Treatment Not on file documented as of this encounter Visit Diagnoses Not on filedocumented in this encounter Care Teams Produce Sorter Relationship Specialty Start Date End Date Salima Gonzáles DO [address] [facility] [address] [place] [phone] PCP - General Family Medicine 02/09/23 documented as of this encounter
--- OUTSIDE RECORDS SUMMARY | 2024-04-06 23:29 | XMS_ITS | Encounter Summary ---
Author Organization Healthcare Address [address] [place] [address] [place], [place] [id number] Care Team Providers Care Geospatial Analyst Name Role Phone Salima Gonzáles Primary Care Provider [phone] Reason for Visit * Reason Comments Follow-up Encounter Details Date Type Department Care Team ([facility] st Contact Info) Description 08/23/2021 2:40 PM EDT Office Visit Medical Office [facility] [address], [address] [place] [address] Bebeto Flynn MD [address] [place] [address] Closed fracture of distal end [...] documented as of this encounter Care Teams Geospatial Analyst Relationship Specialty Start Date End Date Salima Gonzáles DO [address] [place], [place] [address] PCP - General 09/17/20 documented as of this encounter
--- OUTSIDE RECORDS SUMMARY | 2024-04-06 23:29 | XMS_ITS | Encounter Summary ---
Author Organization [employer] Address [address] [place] [address] Care Team Providers Care Photostatic Copy Maker Name Role Phone Unavailable Primary Care Provider Unavailabl e Encounter Details Date Type Department Care Team (Late st Contact Info) Description 10/08/2019 Historic Encounter [address] [address] ProviderScarlet Historical Social History Tobacco [...] - 110 mg/dL 10/08/2019 1:26 PM EDT [facility] Auditor Tax [id number] 10/08/2019 1:26 PM EDT [facility] Device SN [id number] 10/08/2019 1:26 PM EDT [facility] Device Comment1 No action Require 10/08/2019 1:26 PM EDT [facility] Blood 10/08/2019 9:26 AM EDT 10/08/2019 1:35 PM EDT us Sle Historical Provider POINT OF CARE TEST MARIMAR BRISCOE Final Result [facility] [address] [place] [address], [facility] [phone] documented in this encounter Visit Diagnoses Not on filedocumented in this encounter
--- OUTSIDE RECORDS SUMMARY | 2024-04-06 23:29 | XMS_ITS | Encounter Summary ---
Author Organization [facility] [employer] Address [address] [place] [address] Care Team Providers Care Salsa Dance Instructor Name Role Phone Unavailable Primary Care Provider Unavailabl e Encounter Details Date Type Department Care Team (Late st Contact Info) Description 10/06/2019 Historic Encounter [facility] [address] [place] [address] Provider, [facility] Historical Social History Tobacco Use Types Packs/Day [...] Date/Time Associated Diagnosis Comments CORONAVIRUS 2019 NOVEL ([facility] DATA CONV) Routine 10/06/2019 12:15 PM EDT documented in this encounter Results * CORONAVIRUS 2019 NOVEL ([facility] DATA CONV) (10/06/2019 12:15 PM EDT) SARS-CoV-2 ([id number]) Negative Negative 10/08/2019 8:[address] [facility] Comment:Missing Attachment R eference Lab Report Can be viewed in source system 10/06/2019 12:1 5 PM EDT 10/06/2019 5:09 PM EDT [facility] Historical Provider BODY FLUIDS AND STOOLS ORDERABLES Final Result [facility] [address] [phone] documented in this encounter Visit Diagnoses Not on filedocumented in this encounter
--- OUTSIDE RECORDS SUMMARY | 2024-04-06 23:30 | XMS_ITS | Encounter Summary ---
Author Organization Healthcare Address [facility] [place] [id number] Care Team Providers Care Client Services Vice President Name Role Phone Eliecer Salima Ybarra Primary Care Provider [phone] Reason for Visit * Reason Comments Fall * Auth/Cert Specialty Diagnoses / Procedures Referred By Contac t Referred To Contact Diagnoses Closed fracture of distal end of left femur, unspecified fracture morphology, initial encounter (CMS/[facility]) Fall, femur fx Ji Matos MD [address] [address] Phone: tel: fax: [facility] H Inpatient [address] [place] [address] Phone: tel: Referral ID Status Reason Start Date Expiration Date Visits Re quested Visits Authorized [id number] 1 1 Encounter Details Date Type Department Care Team (Late st Contact Info) Description 04/30/2021 12:34 PM EST - 05/07/2021 9:14 AM [facility] Hospital Encounter [facility] H Inpatient [address] [place] [address] Samson Bustamante MD [address] [place] [address] Clay Oviedo MD [address] [place] [address] Ji Matos MD [address] [address] Dory Slade MD [address] [place] [address] Closed fracture of distal end of left femur, unspecified fracture morphology, initial encounter ([facility]) (Primary Dx) Discharge Disposition: Home [...] clot in the space between bone fragments. [employer] last reviewed this educational content on 09/04/2017 ?? 4101-1905 [employer]. All rights reserved. This information is not intended as a substitute for professional medical care. Always follow your healthcare professional's instructions. * Attachments The following attachments cannot be sent through Care Everywhere. * Femur Fracture Open Reduction and Internal Fixation (ORIF), Understanding (Djiboutian) * Femur Fracture Open Reduction and Internal Fixation (ORIF), Having (Djiboutian) * Fractured Femur: Internal Fixation, Discharge Instructions for (Djiboutian) * Surgical Site Infections, Preventing (Djiboutian) * Weight Bearing Status: What It Means ([place]) (Djiboutian) * Acetaminophen Oral Tablet 500 mg (Djiboutian) * Enoxaparin Prefilled Syringe 60 mg/0.6 mL (Djiboutian) * Gabapentin Oral Capsule 300 mg (Djiboutian) * Levofloxacin Oral Tablet 750 mg (Djiboutian) * Melatonin Oral Tablet 3 mg (Djiboutian) * Methocarbamol Oral Tablet 500 mg (Djiboutian) * Oxycodone Oral Tablet 5 mg (Djiboutian) * Controlled Substance Discharge Sheet - [facility] () (Djiboutian) * Senna /Docusate Oral Tablet 8.6 mg / 50 mg (Djiboutian) documented in this encounter Medications at Time [...] HH PT/OT. Referrals for DME sent to [facility]. Referrals sent for HH. No accepting agency at this time. Provider to give pt a script for outpt PT/OT in the event she isn't picked up by HH. Will follow and assist asneeded. Marilu CHAVIRA, RN Trauma/EGS [phone] * Discharge Instr - Appointments - Isiah Crawley RN - 05/06/2021 9:44 AM EST Follow up with Primary Care Provider one week after discharge. Follow up as needed with trauma clinic (Sunday clinic) [address] [place] [address] Clinic 1st [place] [address] Questions or Concerns and Appointments If there are questions or concerns after discharge from the hospital, please call [phone] and ask for Blue Surgery Nurse. Working hours are Sunday - Sunday 8:00 AM to 4:00 PM. After hours, weekends and holidays please call [phone] and ask for the resident client relationship manager for Blue Surgery. For appointments please call [phone]. Medication requests should be made between the hours of 9:00 AM to 3:00 PM Sunday thru Sunday. Please note that based upon recent changes to [place] law related to prescribing opioid pain medications, [...] Transfer Exam: Sit to stand Level of [place]: Stand-by assist Physical/Nonphysical Assist: Verbal Cues (for hand placement) Assistive Device: Walker, rolling Transfer Exam: Stand to Sit Level of [place]: Stand-by assist Physical/Nonphysical Assist: Verbal Cues (for [...] Slade Md PCP name and Address: Salima Gonzálse, DO [address] / [facility] [address] Referring provider name and address: Shaquille Gaming MD [address] [address] Chief Concern, Brief History of Present Illness, [...] needed with trauma clinic (Sunday clinic) [address] [place] [address] 1st [place] [address] Questions or Concerns and Appointments If there are questions or concerns after discharge from the hospital, please call [phone] and ask for Blue Surgery Nurse. Working hours are Sunday - Sunday 8:00 AM to 4:00 PM. After hours, weekends and holidays please call [phone] and ask for the resident client relationship manager for Blue Surgery. For appointments please call [phone]. Medication requests should be made between the hours of 9:00 AM to 3:00 PM Sunday thru Sunday. Please note that based upon recent changes to [place] law related to prescribing opioid pain medications, our providers will not provide refills on controlled medications after your hospital discharge following a major surgery or trauma. [place], [place] 201 KAR9:260. Surgeries and Procedures Procedures performed in this encounter Procedures ??? Case Request Operating Room: INSERTION, INTRAMEDULLARY JESSE, FEMUR [place] Periprosthetic Retrograde Femur Nail INSERTION, INTRAMEDULLARY JESSE, FEMUR [place] Periprosthetic Retrograde Femur Nail (Left) Medication List [...] Your Medications These medications were sent to [facility] [place], [place] - [address] , [facility] [address] ?? acetaminophen 500 MG tablet ?? enoxaparin [...] Department Center 05/17/2021 8:10 AM MD ELLIE CarranzaGSNHB MOB Pertinent Physical Exam At Time of [...] Note Ambika Pratt 55 y.o. female CSN: [id number] Room/Bed 874/874A Nutrition evaluation type: assessment Reason for evaluation: LOS Hospital course: 55 yo female S/P ORIF left femur fracture on 05/01. Past medical/ surgical history: has a past medical history of COPD (chronic obstructive pulmonary disease) ([facility]), Diabetes mellitus ([facility]), Hypertensive heart disease without congestive [...] Weight Evaluation: Extreme Obesity (BMI > 40) [place] Body Weight (kg): 47.7 Percent [place] Body Weight: 252 Estimated Needs: Grams of CHO Percent calories from CHO: Current Nutrition Intake: Diet Order: Adult Diet Diet Texture: Regular Adult Carbohydrate Restriction: Consistent CHO 2 (3186-9401 Usman, 80 g/meal) Percent Meals Eaten (%): 75%/75%/33% (05/03) Diet Experience and Nutrition History: Diet Education Provided: Will monitor Pertinent home medications: Buddhism needs: Nutrition Focused Physical Exam: Unable to [...] Note Ambika Pratt 55 y.o. female CSN: [id number] Admission: 04/30/2021 12:34 PM Primary Problem: Closed fracture of left distal femur (CMS/HCC) Anticipated Discharge Date: tbd Has Discharge Plans Changed? No Additional Comments Per primary treatment team, patient medically ready for rehab. Referral sent to [facility] 05/03, reviewing for possible acceptance. will continue to follow and assist. JOSE Castillo, UNION ORGANISER Trauma/EGS Apprentice Plant Attendant [phone] * Progress Notes - Tad Fuller PTA [...] session. Participants in Care Family/Caregiver Present: No Sand Drier: Not Applicable Presentation Oxygen Therapy: None (Room [...] PM. * Progress Notes - Yamini Belcher, FINANCIAL REPORTING ANALYST - 05/05/2021 10:02 AM EST 05/05/21 Ambika [...] urination. Patient tolerating po intake. Last BM MEDICAL CERTIFICATION SPECIALIST. Patient and nurse have no other [...] sessions. Participants in Care Family/Caregiver Present: No Sand Drier: Not Applicable Presentation Oxygen Therapy: None (Room [...] transfer. Bed Mobility Exam: Rolling/Turning Level of [place]: Contact guard Physical/Nonphysical Assist: Set-up required Assistive Device: Bed rails Bed Mobility Exam: Scooting/Bridging Level of [place]: Contact guard (in sitting to edge of bed) Physical/Nonphysical Assist: Set-up required,Verbal Cues Assistive Device: Bed rails Bed Mobility Exam: Supine to Sit Level of [place]: Contact guard Physical/Nonphysical Assist: Set-up required,Verbal Cues,Moderate cues Assistive Device: Bed rails Bed Mobility Exam: Sit to Supine Level of [place]: (Pt left seated in bedside chair.) Transfers Transfer Exam: Sit to stand Level of [place]: Contact guard Physical/Nonphysical Assist: Set-up required,Verbal Cues,Minimal cues Assistive Device: Walker, rolling Transfer Exam: Stand to Sit Level of [place]: Contact guard Physical/Nonphysical Assist: Set-up required,Verbal Cues,Minimal cues Assistive Device: Walker, rolling Transfer Exam: Bed to Chair/Chair to Bed Level of [place]: Contact guard Physical/Nonphysical Assist: Set-up required,Verbal Cues [...] a helper. 5 Set-up or Clean-up Assistance Marquand sets up or cleans up; patient completes activity. Mar[place]and assists only prior to or following the activity. 4 Supervision or touching assistance Marquand provides verbal cues and/or touching/steadying and/or contact guard assistance as patient completes activity. Assistance may be provided throughout the activity or intermittently. 3 Partial/Moderate Assistance Marquand does LESS THAN HALF the effort. Marquand lifts, holds or supports trunk or limbs, but provides less than half the effort. 2 Substantial/Maximal Assistance Marquand does MORE THAN HALF the effort. Marquand lifts or holds trunkor limbs and provides more than half the effort. 1 Dependent Marquand does ALL of the effort. Patient does [...] Note Ambika Pratt 55 y.o. female CSN: [id number] Admission: 04/30/2021 12:34 PM Primary Problem: Closed fracture of left distal femur (CMS/HCC) Anticipated Discharge Date: tbd Has Discharge Plans Changed? No Additional Comments Per primary treatment team, patient is medically ready for discharge on this date. PT re-evaluated on this date due to concerns of discharge home. Recs changed to acute rehab. SW sent referrals to [facility] and the [facility] on this date. SW will continue to follow and assist. JOSE Castillo, UNION ORGANISER Trauma/EGS Apprentice Plant Attendant [phone] * Progress Notes - Gabby Pratt APRN [...] APRN * Progress Notes - Aurora Ryan, MEDICAL CERTIFICATION SPECIALIST - 05/03/2021 11:03 AM EST Physical [...] Mobility Bed Mobility Exam: Scooting/Bridging Level of [place]: Minimum assist (75% patient's effort) Physical/Nonphysical Assist: Set-up required,Verbal Cues Assistive Device: Bed rails Bed Mobility Exam: Supine to Sit Level of [place]: Minimum assist (75% patient's effort) Physical/Nonphysical Assist: Moderate cues (HOB flat) Assistive Device: Bed rails Transfers Transfer Exam: Sit to stand Level of [place]: Minimum assist (75% patient's effort) Physical/Nonphysical Assist: Set-up required,Verbal Cues,Moderate cues Assistive Device: Walker, rolling Transfer Exam: Stand to Sit Level of [place]: Contact guard Physical/Nonphysical Assist: Set-up required,Verbal Cues,Minimal cues Assistive Device: Walker, rolling Toilet Transfer Level of [place]: Minimum assist (75% patient's effort) Physical/Nonphysical Assist: [...] Assessment Unable to assess 05/03/21799 Nia-Wound Assessment Red;Ecchymotic;Erythematous;Hyperpigmented;[place];Dry 05/03/21799 Drainage Amount None 05/03/21 08 Treatments [...] please contact the Orthopedic Transition Nurse at [phone] Sunday through Sunday 8:00 am to 2:30 pm. If you feel your concern is a medical emergency please call 911 immediately. Based upon recent changes to [place] law related to prescribing opioid pain medications, [...] standpoint Travis Neumann MD PGY-3, Orthopaedic Surgery [facility] Orthopaedic Trauma Service Pager: [phone] Orthopaedic Recon/Spine/Foot and Ankle Service Pager: [phone] Personal Pager: [phone] Cosigned by Vadim Molina MD at 05/06/2021 [...] Aguilar Fadi Terence 55 y.o. female CSN: [id number] Admission: 04/30/2021 12:34 PM Primary Problem: Closed fracture of left distal femur (CMS/HCC) Land Surveying Survey Worker reviewed chart and spoke with patient to complete this Initial Case Management Assessment. PCP: Salima Gonzáles DO Emergency Contact: Extended Emergency Contact Information Primary Emergency Contact: Ambreen De Anda Mobile Relation: Daughter Preferred language: Djiboutian Sand Drier needed? No Insurance: Primary Visit Coverage Payer Plan Sponsor Code Group Number Group Name ANTHEM MEDICARE ANTHEM SENIOR ADVANTAGE [id number] Primary Visit Coverage Subscriber Subscriber ID Subscriber Name Subscriber N Subscriber Address [id number] AMBIKA PIERRE [id number] [place] [address] Patient information: Patient is a 55 y.o. female admitted due to a fall from standing after tripping over her grandson'stoys. Injuries include closed fracture of left distal femur. Daily Living Activities: [address] [place] [address] Anticipated Discharge Date: tbd Assistance Available at [...] to follow and assist. Karma Gamez MSW, UNION ORGANISER Trauma/EGS Apprentice Plant Attendant [phone] * Progress Notes - Vianca Ma, PT [...] Procedures 05/01/2021 Procedure(s): INSERTION, INTRAMEDULLARY JESSE, FEMUR [place] Periprosthetic Retrograde Femur Nail Past Medical History [...] Not accessible Home Living Comments: live in [place]; works as a [employer]; patient's daughter and her two grandchildren live [...] admission Level of Mobility: Ambulatory- community Mobility [place]: Independent gait without device History of Falls: [...] Mobility Exam: Supine to Sit Level of [place]: Minimum assist (75% patient's effort) Physical/Nonphysical Assist: HOB elevated Transfers Transfer Exam: Sit to stand Level of [place]: Contact guard Assistive Device: Walker, rolling Transfer Exam: Stand to Sit Level of [place]: Contact guard Assistive Device: Walker, rolling Demonstrated [...] was instructed on upright posture. Standardized Assessments [facility] 6-Clicks Mobility Assessment Difficulty patient has turning [...] climbing 3-5 steps with a railing?: Unable 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 Pt scooted(I) in bedside chair to back of chair.) Physical/Nonphysical Assist: Set-up required,Verbal Cues Assistive Device: Other (draw sheet) Bed Mobility Exam: Supine to Sit Level of [place]: Minimum assist (75% patient's effort) Physical/Nonphysical Assist: HOB elevated,Set-up required,Verbal Cues Assistive Device: Bed rails Bed Mobility Exam: Sit to Supine Level of [place]: (Pt left seated in bedside chair.) Balance [...] up: Dr. Flynn, 05/17/21 Disposition: admitted to [facility] Johnny Agudelo MD PGY-1, Orthopaedic Surgery [facility] Orthopaedic Trauma Service Pager: [phone] Orthopaedic Recon/Spine/Foot and Ankle Service Pager: [phone] Cosigned by Bebeto Flynn MD at 05/02/2021 [...] PM EST Operative Note Date: 05/01/21 Location: [facility]ORMAL OR Name: Ambika Pratt, : 1965, Diagnoses: Pre-op Diagnosis Closed fracture of distal end of left femur, unspecified fracture morphology, initial encounter ([facility]) Post-op Diagnosis Closed fracture of distal end of left femur, unspecified fracture morphology, initial encounter ([facility]) Procedure(s): Treatment of femoral shaft fracture with intramedullary implant Attending Surgeon(s): * Bebeto Flynn - Primary Composite Boat Builder(s): Dr. Crow Lockwood Anesthesia: General ASA: III [...] RETRO T2 ALPHA 11MM X 340MM - [id number] Implanted Screw SCREW LOCKING T2 D5XL80 - [id number] - [id number] Implanted [id number] SCREW LOCKING T2 D5XL50 - [id number] Implanted SCREW LOCKING T2 D5XL60 - [id number] Implanted SCREW LOCKING T2 D5XL75 - [id number] Implanted SCREW LOCKING T2 D5XL55 - [id number] Implanted SCREW LOCKING T2 D5X32.5 - [id number] Implanted SCREW LOCKING T2 D5X37.5 - [id number] Implanted Specimen: none Findings: stable fracture, stable [...] knee was noted to be a Press-Fit [place] Triathlon. Despite continuing the hospital, implant records [...] proximal interlocking bolts were placed using perfect redding technique. Final fluoroscopic imaging demonstrated acceptable reduction and methodist of length alignment rotation when comparing lessre [...] 05/01/2021 1:45 PM EST Date: 05/01/21 Location: NORMAL OR Name: Ambika Aponte Terence, : 1965, Diagnoses: Pre-op Diagnosis Closed fracture of distal end of left femur, unspecified fracture morphology, initial encounter ([facility]) Post-op Diagnosis Closed fracture of distal end of left femur, unspecified fracture morphology, initial encounter ([facility]) Procedure(s): Retrograde IMN L femur fx Attending Surgeon(s): Tiny Flynn - Primary Composite Boat Builder(s): florin Anesthesia: General ASA: III Blood Administration: Blood Product Administration History None Estimated Blood Loss: 250 mL Drains: * None in log * Implants Type Name Action Serial No. Nail NAIL FEMORAL RETRO T2 ALPHA 11MM X 340MM - [id number] Implanted Screw SCREW LOCKING T2 D5XL80 - [id number] - [id number] Implanted [id number] SCREW LOCKING T2 D5XL50 - [id number] Implanted SCREW LOCKING T2 D5XL60 - [id number] Implanted SCREW LOCKING T2 D5XL75 - [id number] Implanted SCREW LOCKING T2 D5XL55 - [id number] Implanted SCREW LOCKING T2 D5X32.5 - [id number] Implanted SCREW LOCKING T2 D5X37.5 - [id number] Implanted Specimen: none Findings: stable fracture Complications: [...] needed with trauma clinic (Sunday clinic) [address] [facility] 1st floor [place], [place] [address] Questions or Concerns and Appointments If there are questions or concerns after discharge from the hospital, please call [phone] and ask for Blue Surgery Nurse. Working hours are Sunday - Sunday 8:00 AM to 4:00 PM. After hours, weekends and holidays please call [phone] and ask for the resident client relationship manager for Blue Surgery. For appointments please call [phone]. Medication requests should be made between the hours of 9:00 AM to 3:00 PM Sunday thru Sunday. Please note that based upon recent changes to [place] law related to prescribing opioid pain medications, [...] Date ??? COPD (chronic obstructive pulmonary disease) ([facility]) ??? Diabetes mellitus ([facility]) ??? Hypertensive heart disease without [...] (Principal) Closed fracture of left distal femur ([facility]) Overview Addendum 04/30/2021 4:01 PM [...] Hdz MD Admit to trauma floor Diabetes ([facility]) Overview Addendum 05/01/2021 8:17 AM [...] Resident Physician Orthopedic Reconstructiion ([facility]) Service Pager: [phone] Orthopedic Trauma ([facility]) Service Pager: [phone] Cosigned by Bebeto Flynn MD at 05/01/2021 [...] history of COPD (chronic obstructive pulmonary disease) ([facility]), Diabetes mellitus ([facility]), and Hypertensive heart disease without [...] Exposure Concern ??? Not on file Employer: [employer] Immunizations VACCINE/DOSE Flu Tetanus Pneumovax Shingles A [...] (264 lb 8.8 oz), SpO2 98 %. [place] 15 Intubated No Recent Results Labs in [...] knee replacements with Dr. Doty, now in [place], [place]. [facility]. L TKA 2013. Press fit Abdiel Triathalon. Reports uncomplicated postoperative course, satisfied with outcome. R TKA 2015. Lithotripsy approx 10 days ago Heel spur removal x2 x2 Hysterectomy Cholecystectomy FAMILY HISTORY Family history reviewed and otherwise non-contributory. SOCIAL HISTORY Tobacco: 1/2ppd m43paxcm EtOH: denies Illicits: denies Lives in [place], [place] with daughter Employment: [employer] REVIEW OF SYSTEMS Review of systems is [...] institutional protocol Daniel Campoverde MD Orthopaedic Surgery [facility] Orthopaedic Trauma Service Pager: [phone] Orthopaedic Recon/Spine/Foot and Ankle Service Pager: [phone] Cosigned by Bebeto Flynn MD at 05/01/2021 [...] Exposure Concern ??? Not on file Employer: [employer] Travel History Relevant International Travel History: Travel [...] left femur, unspecified fracture morphology, initial encounter ([facility]) MDM Number of Diagnoses or Management Options Closed fracture of distal end of left femur, unspecified fracture morphology, initial encounter ([facility]) Diagnosis management comments: I assessed [...] left femur, unspecified fracture morphology, initial encounter ([facility]) PROTHROMBIN TIME(PT) / INR Routine [...] Comment 05/06/2021 11:40 AM EST [facility]ARE [facility] Acute Dialysis Registered Nurse ID Iram Phillips 05/06/2021 11:40 AM EST [employer] [facility] Device ID [id number] 05/06/2021 11:40 AM EST HEALTHCARE LAB Specimen Type POC Capillary 05/06/2021 11:40 AM EST [employer] [facility] Blood Capillary blood specimen / Unknown 05/06/2021 11:34 AM EST 05/06/2021 11:40 AM EST Dory Slade MD LAB POINT OF CARE TEST DOCKED DEVICE UNSOLICITED RESULTS Final Result Performing Organization Address City/State/[facility] Co de Phone Number [facility] [address] [place] [address] * SARS CoV-2/COVID-19 by PCR (05/06/2021 10:05 AM EST) [facility] SARS CoV-2/COVID-1 9 RNA PCR Result Not [...] recommendations. This test was performed using the uStudio M2000 SARS CoV-2 test, a qualitative PCR-based [...] OR DERABLES Final Result Performing Organization Address [facility] Co de Phone Number [facility] [address] [place] [address] * (ABNORMAL) POCT glucose meter (05/06/2021 7:26 [...] for testing. Comment 05/06/2021 7:30 AM EST [facility] Acute Dialysis Registered Nurse ID Iram Phillips 05/06/2021 7:30 AM EST [facility] Device ID [id number] 05/06/2021 7:30 AM EST [facility] Specimen Type POC Capillary 05/06/2021 7:30 AM EST [facility] Blood Capillary blood specimen / Unknown 05/06/2021 7:26 AM EST 05/06/2021 7:30 AM EST Dory Slade MD LAB POINT OF CARE TEST DOCKED DEVICE UNSOLICITED RESULTS Final Result Performing Organization Address [facility] Co de Phone Number [facility]ARE [facility] [address] [place] [address] * (ABNORMAL) POCT glucose meter (05/05/2021 7:26 [...] 05/05/2021 7:30 PM EST [facility] Acute Dialysis Registered Nurse ID Sandra Araujo 021 7:30 PM EST [facility] [facility] Device ID [id number] 05/05/2021 7:30 PM EST [facility] Specimen Type POC Capillary 05/05/2021 7:30 PM EST [facility] Blood Capillary blood specimen / Unknown 05/05/2021 7:26 PM EST 05/05/2021 7:30 PM EST us Dory Slade MD LAB POINT OF CARE TEST DOCKED DEVICE UNSOLICITED RESULTS Final Result Performing Organization Address [facility] de Phone Number [facility]ARE [facility] [address] [place] [address] * (ABNORMAL) POCT glucose meter (05/05/2021 6:22 PM EST) [facility] POCT Glucose 145(H) 74 - 99 mg/dL [...] 05/05/2021 6:25 PM EST [facility] Acute Dialysis Registered Nurse ID Keeley Womack 05/05/20 6:25 PM EST [facility] Device ID [id number] 05/05/2021 6:25 PM EST [facility] Specimen Type POC Capillary 05/05/2021 6:25 PM EST [facility] Blood Capillary blood specimen / Unknown 05/05/2021 6:22 PM EST 05/05/2021 6:25 PM EST us Dory Slade MD LAB POINT OF CARE TEST DOCKED DEVICE UNSOLICITED RESULTS Final Result Performing Organization Address City/[facility] Co de Phone Number [facility] [address] [place] [address] * (ABNORMAL) POCT glucose meter (05/05/2021 4:52 PM EST) [facility] POCT Glucose 71(L) 74 - 99 mg/dL [...] for testing. Comment 05/05/2021 4:55 PM EST [facility] Acute Dialysis Registered Nurse ID Keeley Womack 05/05/20 4:55 PM EST [facility] Device ID [id number] 05/05/2021 4:55 PM EST [facility] Specimen Type POC Capillary 05/05/2021 4:55 PM EST [facility] Blood Capillary blood specimen / Unknown 05/05/2021 4:52 PM EST 05/05/2021 4:55 PM EST Dory Slade MD LAB POINT OF CARE TEST DOCKED DEVICE UNSOLICITED RESULTS Final Result [facility] [address] [place] [address] * (ABNORMAL) POCT glucose meter (05/05/2021 11:20 AM EST) [facility] POCT Glucose 134(H) 74 - 99 mg/dL 05/05/2021 11:25 AM EST [facility] Comment:Accuracy of a glucos e result [...] 05/05/2021 11:25 AM EST [facility] Acute Dialysis Registered Nurse ID Keeley Womack 05/05/20 11:25 AM EST [facility] Device ID [id number] 05/05/2021 11:25 AM EST [facility] Specimen Type POC Capillary 05/05/2021 11:25 AM EST [facility] Blood Capillary blood specimen / Unknown 05/05/2021 11:20 AM EST 05/05/2021 11:25 AM EST us Dory Slade MD LAB POINT OF CARE TEST DOCKED DEVICE UNSOLICITED RESULTS Final Result Performing Organization Address City/[facility] Co de Phone Number [facility] [address] [place] [address] * (ABNORMAL) POCT glucose meter (05/05/2021 7:38 [...] for testing. Comment 05/05/2021 7:40 AM EST [facility] Acute Dialysis Registered Nurse ID Keeley Womack 05/05/20 7:40 AM EST [facility]ARE [facility] Device ID [id number] 05/05/2021 7:40 AM EST [facility] Specimen Type POC Capillary 05/05/2021 7:40 AM EST [facility] Blood Capillary blood specimen / Unknown 05/05/2021 7:38 AM EST 05/05/2021 7:40 AM EST us Dory Slade MD LAB POINT OF CARE TEST DOCKED DEVICE UNSOLICITED RESULTS Final Result Performing Organization Address City/[facility]/ZIP Co de Phone Number [facility] [address] [place] [address] * (ABNORMAL) POCT glucose meter (05/04/2021 10:04 [...] for testing. Comment 05/04/2021 10:10 PM EST [facility] Acute Dialysis Registered Nurse ID Xenia Hummel 05/04/2021 10:10 PM EST [facility] Device ID [id number] 05/04/2021 10:10 PM EST [facility] Specimen Type POC Capillary 05/04/2021 10:10 PM EST [facility] Blood Capillary blood specimen / Unknown 05/04/2021 10:04 PM EST 05/04/2021 10:10 PM EST Dory Slade MD LAB POINT OF CARE TEST DOCKED DEVICE UNSOLICITED RESULTS Final Result Performing Organization Address City/[facility] Co de Phone Number [facility] [address] [place] [address] * Urinalysis Microscopic Examination (05/04/2021 4:52 PM EST) Urine Urine specimen obtained by clean catch procedure / Unknown Non-blood Collection / Unknown 05/04/2021 4:52 PM EST 05/04/2021 5:02 PM EST Gabby Pratt FINANCIAL REPORTING ANALYST, DNP LAB URINE ORDERABLES Fi nal Result Performing Organization Address City/[facility] Co de Phone Number [facility] [address] [place] [address] * (ABNORMAL) Urinalysis with reflex microscopic (05/04/2021 4:52 PM EST) Color, Urine Yellow LAB URINALYSIS - AUTOMATED METHOD 05/04/2021 5:11 PM EST [facility] Clarity, Urine Clear LAB URINALYSIS - AUTOMATED METHOD 05/04/2021 5:11 PM EST [facility] Spec [place], Urine 1.019 <=1.005 to >=1.030 LAB URINALYSIS - AUTOMATED METHOD 05/04/2021 5:11 PM EST [facility] pH, Urine 6.5 4.5 to 8 LAB URINALYSIS - AUTOMATED METHOD 05/04/2021 5:11 PM EST [facility] Protein, Urine Negative Negative mg/dL LAB URINALYSIS - AUTOMATED METHOD 05/04/2021 5:11 PM [facility] Glucose, Urine Negative Negative mg/dL LAB URINALYSIS - AUTOMATED METHOD 05/04/2021 5:11 PM [facility] Ketones, Urine Negative Negative mg/dL LAB URINALYSIS - AUTOMATED METHOD 05/04/2021 5:11 PM [facility] Blood, Urine Negative Negative LAB URINALYSIS - AUTOMATED METHOD 05/04/2021 5:11 PM [facility] Bilirubin, Urine Negative Negative LAB URINALYSIS - AUTOMATED METHOD 05/04/2021 5:11 PM [facility] Urobilinogen, Urine 1.0 0.2 to 1.0 mg/dL LAB URINALYSIS - AUTOMATED METHOD 05/04/2021 5:11 PM [facility] Leukocytes, Urine Trace(A) Negative LAB URINALYSIS - AUTOMATED METHOD 05/04/2021 5:11 PM [facility] Nitrite, Urine Negative Negative LAB URINALYSIS - AUTOMATED METHOD 05/04/2021 5:11 PM [facility] RBC, Urine 2 0 to 3 /HPF LAB URINALYSIS - AUTOMATED METHOD 05/04/2021 5:11 PM [facility] Comment:This result was prev iously suppressed from the chart. WBC, Urine 0 - 5 0 to 5 /HPF LAB URINALYSIS - AUTOMATED METHOD 05/04/2021 5:11 PM [facility] Comment:This result was prev iously suppressed from the chart. Squamous Epithelial Cells 0 - 5 0 to 5 /HPF LAB URINALYSIS - AUTOMATED METHOD 05/04/2021 5:11 PM [facility] Comment:This result was prev iously suppressed from the chart. Hyaline Casts 0 - 8 0 to 8 /LPF LAB URINALYSIS - AUTOMATED METHOD 05/04/2021 5:11 PM [facility] Comment:This result was prev iously suppressed from the chart. Bacteria, Urine Negative Negative LAB URINALYSIS - AUTOMATED METHOD 05/04/2021 5:11 PM [facility] Comment:This result was prev iously suppressed from the chart. Urine Urine specimen obtained by clean catch procedure / Unknown Non-blood Collection / Unknown 05/04/2021 4:52 PM EST 05/04/2021 5:02 PM EST us Gabby Pratt FINANCIAL REPORTING ANALYST, DNP LAB URINE ORDERABLES Fi nal Result Performing Organization Address [facility] Co de Phone Number [facility] [address] [place] [address] * (ABNORMAL) POCT glucose meter (05/04/2021 4:42 PM EST) POCT Glucose 113(H) 74 - 99 mg/dL 05/04/2021 4:45 PM EST [facility] Comment:Accuracy of a glucos e [...] for testing. Comment 05/04/2021 4:45 PM EST [facility] Acute Dialysis Registered Nurse ID Tereza Feng 05/04/2021 4:45 PM EST [facility] Device ID [id number] 05/04/2021 4:45 PM EST [facility] Specimen Type POC Capillary 05/04/2021 4:45 PM EST [facility] Blood Capillary blood specimen / Unknown 05/04/2021 4:42 PM EST 05/04/2021 4:45 PM EST Dory Slade MD LAB POINT OF CARE TEST DOCKED DEVICE UNSOLICITED RESULTS Final Result Performing Organization Address [facility] Phone Number [facility] [address] [place] [address] * (ABNORMAL) POCT glucose meter (05/04/2021 11:44 AM EST) POCT Glucose 102(H) 74 - 99 mg/dL 05/04/2021 11:50 AM EST [facility] Comment:Accuracy of a glucos e [...] 05/04/2021 11:50 AM EST [facility] Acute Dialysis Registered Nurse ID Keeley Womack 05/04/20 11:50 AM EST [facility] Device ID [id number] 05/04/2021 11:50 AM EST [facility] Specimen Type POC Capillary 05/04/2021 11:50 AM EST [facility] Blood Capillary blood specimen / Unknown 05/04/2021 11:44 AM EST 05/04/2021 11:50 AM EST Dory Slade MD LAB POINT OF CARE TEST DOCKED DEVICE UNSOLICITED RESULTS Final Result Performing Organization Address City/[facility] de Phone Number [facility]ARE [facility] [address] [place] [address] * (ABNORMAL) POCT glucose meter (05/04/2021 7:25 AM EST) Pathologist [facility] POCT Glucose 119(H) 74 - 99 mg/dL 05/04/2021 7:30 AM EST [facility] Comment:Accuracy of a glucos e result [...] Comment 05/04/2021 7:30 AM EST [facility] Acute Dialysis Registered Nurse ID Keeley Womack 05/04/20 7:30 AM EST [facility] Device ID [id number] 05/04/2021 7:30 AM EST [facility] Specimen Type POC Capillary 05/04/2021 7:30 AM EST [facility] Blood Capillary blood specimen / Unknown 05/04/2021 7:25 AM EST 05/04/2021 7:30 AM EST us Dory Slade MD LAB POINT OF CARE TEST DOCKED DEVICE UNSOLICITED RESULTS Final Result Performing Organization Address City/[facility] Co de Phone Number [facility] [address] [place] [address] * Aspartate Aminotransferase, Plasma (05/04/2021 5:50 AM EST) Pathologist [facility] AST, Plasma 21 11 - 32 U/L 05/04/2021 6:35 AM EST [facility] Blood Venous blood specimen / Unknown Venipuncture / Unknown 05/04/2021 5:50 AM EST 05/04/2021 6:01 AM EST us Gabby Pratt APRN, DNP LAB BLOOD ORDERABLES Fi nal Result Performing Organization Address City/[facility] Co de Phone Number [facility] [address] [place] [address] * (ABNORMAL) Alanine Aminotransferase, Plasma (05/04/2021 5:50 AM EST) Pathologist [facility] ALT, Plasma 57(H) 8 - 33 U/L 05/04/2021 6:35 AM EST [facility] Blood Venous blood specimen / Unknown Venipuncture / Unknown 05/04/2021 5:50 AM EST 05/04/2021 6:01 AM EST us Gabby Pratt APRN, [facility] LAB BLOOD ORDERABLES Fi nal Result Performing Organization Address City/[facility] Phone Number [facility] [address] [place] [address] * POCT glucose meter (05/03/2021 8:17 PM EST) [facility] POCT Glucose 92 74 - 99 mg/dL [...] 05/03/2021 8:20 PM EST [facility] Acute Dialysis Registered Nurse ID Irene Cantor 05/03/2021 8:20 PM EST [facility] Device ID [id number] 05/03/2021 8:20 PM EST [facility] Specimen Type POC Capillary 05/03/2021 8:20 PM EST [facility] Blood Capillary blood specimen / Unknown 05/03/2021 8:17 PM EST 05/03/2021 8:20 PM EST Dory Slade MD LAB POINT OF CARE TEST DOCKED DEVICE UNSOLICITED RESULTS Final Result Performing Organization Address [facility] de Phone Number [facility] [address] [place] [address] * (ABNORMAL) POCT glucose meter (05/03/2021 5:35 [...] for testing. Comment 05/03/2021 5:40 PM EST [facility] Acute Dialysis Registered Nurse ID Dahlia Velasco 05/03/2021 5:40 PM EST [facility] Device ID [id number] 05/03/2021 5:40 PM EST [facility] Specimen Type POC Capillary 05/03/2021 5:40 PM EST [facility] Blood Capillary blood specimen / Unknown 05/03/2021 5:35 PM EST 05/03/2021 5:40 PM EST Dory Slade MD LAB POINT OF CARE TEST DOCKED DEVICE UNSOLICITED RESULTS Final Result Performing Organization Address [facility] de Phone Number [facility] [address] [place] [address] * POCT glucose meter (05/03/2021 12:14 PM [...] Comment 05/03/2021 12:15 PM EST [facility] Acute Dialysis Registered Nurse ID Keeley Womack 05/03/20 12:15 PM EST [facility] Device ID [id number] 05/03/2021 12:15 PM EST [facility] Specimen Type POC Capillary 05/03/2021 12:15 PM EST [facility] Blood Capillary blood specimen / Unknown 05/03/2021 12:14 PM EST 05/03/2021 12:15 PM EST us Dory Slade MD LAB POINT OF CARE TEST DOCKED DEVICE UNSOLICITED RESULTS Final Result Performing Organization Address City/[facility]/ZIP Co de Phone Number [facility] [address] [place] [address] * POCT glucose meter (05/03/2021 8:08 AM EST) Pathologist [facility] POCT Glucose 87 74 - 99 mg/dL [...] Comment 05/03/2021 8:10 AM EST [facility] Acute Dialysis Registered Nurse ID Keeley Womack 05/03/20 8:10 AM EST [facility] Device ID [id number] 05/03/2021 8:10 AM EST [facility] Specimen Type POC Capillary 05/03/2021 8:10 AM EST [facility] Blood Capillary blood specimen / Unknown 05/03/2021 8:08 AM EST 05/03/2021 8:10 AM EST us Dory Slade MD LAB POINT OF CARE TEST DOCKED DEVICE UNSOLICITED RESULTS Final Result [facility] [address] [place] [address] * POCT glucose meter (05/03/2021 6:07 AM [...] 05/03/2021 6:10 AM EST [facility] Acute Dialysis Registered Nurse ID Shaquille Mak 05/03/2021 6:10 AM EST [facility] Device ID [id number] 05/03/2021 6:10 AM EST [facility] Specimen Type POC Capillary 05/03/2021 6:10 AM EST [facility] Blood Capillary blood specimen / Unknown 05/03/2021 6:07 AM EST 05/03/2021 6:10 AM EST Dory Slade MD LAB POINT OF CARE TEST DOCKED DEVICE UNSOLICITED RESULTS Final Result Performing Organization Address City/State/[facility] Co de Phone Number [facility] [address] [place] [address] * (ABNORMAL) POCT glucose meter (05/02/2021 9:15 PM EST) [facility] POCT Glucose 102(H) 74 - 99 mg/dL [...] 05/02/2021 9:20 PM EST [facility] Acute Dialysis Registered Nurse ID Shana Bean 05/02/2021 9:20 PM EST [facility] Device ID [id number] 05/02/2021 9:20 PM EST [facility] Specimen Type POC Capillary 05/02/2021 9:20 PM EST [facility] Blood Capillary blood specimen / Unknown 05/02/2021 9:15 PM EST 05/02/2021 9:20 PM EST Dory Slade MD LAB POINT OF CARE TEST DOCKED DEVICE UNSOLICITED RESULTS Final Result Performing Organization Address City/[facility] de Phone Number [facility] [address] [place] [address] * (ABNORMAL) POCT glucose meter (05/02/2021 3:20 [...] for testing. Comment 05/02/2021 3:25 PM EST [facility] Acute Dialysis Registered Nurse ID Betty Coronado 05/02/2021 3:25 PM EST [facility] Device ID [id number] 05/02/2021 3:25 PM EST [facility] Specimen Type POC Capillary 05/02/2021 3:25 PM EST [facility] Blood Capillary blood specimen / Unknown 05/02/2021 3:20 PM EST 05/02/2021 3:25 PM EST Dory Slade MD LAB POINT OF CARE TEST DOCKED DEVICE UNSOLICITED RESULTS Final Result Performing Organization Address City/[facility] de Phone Number [facility] [address] [place] [address] * (ABNORMAL) POCT glucose meter (05/02/2021 11:26 [...] Comment 05/02/2021 11:45 AM EST [facility] Acute Dialysis Registered Nurse ID Betty Coronado 05/02/2021 11:45 AM EST [facility] Device ID [id number] 05/02/2021 11:45 AM EST [facility] Specimen Type POC Capillary 05/02/2021 11:45 AM EST [facility] Blood Capillary blood specimen / Unknown 05/02/2021 11:26 AM EST 05/02/2021 11:45 AM EST us Dory Slade MD LAB POINT OF CARE TEST DOCKED DEVICE UNSOLICITED RESULTS Final Result Performing Organization Address City/[facility] Co de Phone Number [facility] [address] [place] [address] * (ABNORMAL) POCT glucose meter (05/02/2021 8:08 AM EST) [facility] POCT Glucose 118(H) 74 - 99 mg/dL 05/02/2021 8:15 AM EST [facility] Comment:Accuracy of a glucos e [...] Comment 05/02/2021 8:15 AM EST [facility] Acute Dialysis Registered Nurse ID Betty Coronado 05/02/2021 8:15 AM EST [facility] Device ID [id number] 05/02/2021 8:15 AM EST [facility] Specimen Type POC Capillary 05/02/2021 8:15 AM EST [facility] Blood Capillary blood specimen / Unknown 05/02/2021 8:08 AM EST 05/02/2021 8:15 AM EST us Ji Matos MD LAB POINT OF CARE TE ST DOCKED DEVICE UNSOLICITED RESULTS Final Result Performing Organization Address City/[facility]/ZIP Co de Phone Number [facility] [address] [place] [address] * (ABNORMAL) Alanine Aminotransferase, Plasma (05/02/2021 3:59 AM EST) ALT, Plasma 152(H) 8 - 33 U/L 05/02/2021 12:38 PM EST [facility] Blood Venous blood specimen / Unknown Venipuncture / Unknown 05/02/2021 3:59 AM EST 05/02/2021 4:21 AM EST us Gabby Pratt APRN, DNP LAB BLOOD ORDERABLES Fi nal Result Performing Organization Address [facility] Co de Phone Number [facility] [address] [place] [address] * (ABNORMAL) Aspartate Aminotransferase, Plasma (05/02/2021 3:59 AM EST) AST, Plasma 117(H) 11 - 32 U/L 05/02/2021 12:38 PM EST [facility] Blood Venous blood specimen / Unknown Venipuncture / Unknown 05/02/2021 3:59 AM EST 05/02/2021 4:21 AM EST us Gabby Pratt APRN, DNP LAB BLOOD ORDERABLES Fi nal Result Performing Organization Address [facility] Phone Number [facility] [address] [place] [address] * (ABNORMAL) Basic metabolic panel (05/02/2021 3:59 AM EST) Glucose, Plasma 130(H) 74 - 99 mg/dL 05/02/2021 4:50 AM EST [facility] BUN, Plasma 13 7 - 21 mg/dL 05/02/2021 4:50 AM EST [facility] Creatinine, Plasma 0.81 0.60 - 1.10 mg/dL 05/02/2021 4:50 AM EST [facility] BUN/Creatinine Ratio 16 05/02/2021 4:50 AM EST [facility] Sodium, Plasma 139 136 - 145 mmol/L 05/02/2021 4:50 AM EST [facility] Potassium, Plasma 4.3 3.7 - 4.8 mmol/L 05/02/2021 4:50 AM EST [facility] Chloride, Plasma 103 97 - 107 mmol/L 05/02/2021 4:50 AM EST [facility] CO2, Plasma 27 22 - 29 mmol/L 05/02/2021 4:50 AM EST [facility] Anion Gap 9 6 - 16 mmol/L 05/02/2021 4:50 AM EST [facility] Total Calcium, Plasma 8.7(L) 8.9 - 10.2 mg/dL 05/02/2021 4:50 AM EST [facility] eGFR >60 >60 mL/min/1.7 3m*2 05/02/2021 4:50 AM EST [facility] Comment:eGFR = estimated GFR ; [...] >60 mL/min/1.7 3m*2 05/02/2021 4:50 AM EST [facility] Comment:eGFR = estimated GFR ; [...] RN LAB BLOOD ORDERABLES Final Resul t [facility] [address] [place] [address] * (ABNORMAL) CBC W/O Differential (05/02/2021 3:59 AM EST) WBC Count 9.98 3.70 - 10.30 10*3/uL LAB HEMATOLOGY METHOD 05/02/2021 4:48 AM EST [facility] RBC Count 3.26(L) 3.90 - 5.20 10*6/uL LAB HEMATOLOGY METHOD 05/02/2021 4:48 AM EST [facility] HGB 10.1(L) 11.2 - 15.7 g/dL LAB HEMATOLOGY METHOD 05/02/2021 4:48 AM EST [facility] HCT 31.5(L) 34.0 - 45.0 % LAB HEMATOLOGY METHOD 05/02/2021 4:48 AM EST [facility] Platelet Count 243 155 - 369 10*3/uL LAB HEMATOLOGY METHOD 05/02/2021 4:48 AM EST [facility] MCV 97 79 - 98 fL LAB HEMATOLOGY METHOD 05/02/2021 4:48 AM EST [facility] MCH 31.0 26.0 - 32.0 pg LAB HEMATOLOGY METHOD 05/02/2021 4:48 AM EST [facility] MCHC 32.1 30.7 - 35.5 g/dL LAB HEMATOLOGY METHOD 05/02/2021 4:48 AM EST [facility] RDW 13.5 11.5 - 14.5 % LAB HEMATOLOGY METHOD 05/02/2021 4:48 AM EST [facility] MPV 11.1 8.8 - 12.5 fL LAB HEMATOLOGY METHOD 05/02/2021 4:48 AM EST [facility] nRBC 0.0 <=0.0 per 100 WBCs LAB HEMATOLOGY METHOD 05/02/2021 4:48 AM EST [facility] Blood Venous blood specimen / Unknown Venipuncture / Unknown 05/02/2021 3:59 AM EST 05/02/2021 4:25 AM EST us Ava Joseph RN LAB BLOOD ORDERABLES Final Resul t Performing Organization Address City/State/[facility] Co de Phone Number [facility] [address] [place] [address] * (ABNORMAL) POCT glucose meter (05/01/2021 9:11 PM EST) POCT Glucose 141(H) 74 - 99 mg/dL 05/01/2021 9:15 PM EST [facility] Comment:Accuracy of a glucos e [...] Comment 05/01/2021 9:15 PM EST [facility] Acute Dialysis Registered Nurse ID Kyra Lockwood 05/01/2021 9:15 PM EST [facility] Device ID [id number] 05/01/2021 9:15 PM EST [facility] Specimen Type POC Capillary 05/01/2021 9:15 PM EST [facility] Blood Capillary blood specimen / Unknown 05/01/2021 9:11 PM EST 05/01/2021 9:15 PM EST us Ji Matos MD LAB POINT OF CARE TE ST DOCKED DEVICE UNSOLICITED RESULTS Final Result Performing Organization Address City/State/[facility] Co de Phone Number [facility] [address] [place] [address] * XR Femur Left 2+ Views (05/01/2021 [...] LEFT 2+ VIEWS ordered by JI MATOS [id number] CLINICAL INDICATION: post op TECHNIQUE: XR FEMUR [...] FEMUR LEFT 2+ VIEWS ordered by JI [id number] CLINICAL INDICATION: post op TECHNIQUE: XR FEMUR [...] 99 mg/dL 05/01/2021 3:55 PM EST [facility] Comment:Accuracy of a glucos e result [...] for testing. Comment 05/01/2021 3:55 PM EST [facility] Acute Dialysis Registered Nurse ID Tresa Jones 021 3:55 PM EST [facility] Device ID [id number] 05/01/2021 3:55 PM EST [facility] Specimen Type POC Capillary 05/01/2021 3:55 PM EST [facility] Blood Capillary blood specimen / Unknown 05/01/2021 3:53 PM EST 05/01/2021 3:55 PM EST Ji Matos MD LAB POINT OF CARE TE ST DOCKED DEVICE UNSOLICITED RESULTS Final Result Performing Organization Address City/[facility]/ZIP Co de Phone Number [facility] [address] [place] [address] * [place] Less than 1 Hour Intraoperative (05/01/2021 3:26 PM EST) Narrative IMAGING - 05/01/2021 3:26 PM EST Images were obtained for surgical purposes. ??See Bebeto Flynn's surgical note in the the patient's chart for the findings. Bebeto Flynn MD IMG FLUOROSCOPY PROCEDURES Porsche l Result IMAGING * Hemoglobin A1c (05/01/2021 2:21 AM EST) Hemoglobin A1c 5.5 <5.7 % 05/01/2021 12:36 PM EST [facility] Blood Venous blood specimen / Unknown Venipuncture / Unknown 05/01/2021 2:21 AM EST 05/01/2021 2:26 AM EST Narrative [facility] - 05/01/2021 12:36 PM EST [facility] Interpretive Data: Diagnosis of Diabetes: Diabetic > or = 6.5% Pre-diabetic 5.7 to 6.4% Non-diabetic < or = 5.6% Glycemic Targets for Type I and Type II Diabetics: Non- Adults <7.0% Adults <6.0% Children and Adolescents <7.5% Source: ??[place] [employer]. Standards of medical care in diabetes,2017. Diabetes Care.2017:40 (suppl 1):S1-S135. HbA1c assay performed by an ion-exchange chromatography method that is certified traceable to the DCCT. Ji Matos MD LAB BLOOD ORDERABLES Final Re sult [facility] [address] [place] [address] * Protime-INR (05/01/2021 2:21 AM EST) Prothrombin Time 13.0 12.0 - 14.3 sec LAB COAGULATION METHOD 05/01/2021 2:59 AM EST [employer] [facility] INR 1.0 0.9 - 1.1 LAB COAGULATION METHOD 05/01/2021 2:59 AM EST [facility] Blood Venous blood specimen / Unknown Venipuncture / Unknown 05/01/2021 2:21 AM EST 05/01/2021 2:26 AM EST Narrative [facility] - 05/01/2021 2:59 AM EST OPTIMAL INR RANGES FOR PATIENT ON ORAL ANTICOAGULANT THERAPY Prevention of venous thromboembolism ?INR 2.0 to 3.0 In patients with heart disease: Atrial fibrillation ?INR 2.0 to 3.0 Valvular heart disease ? INR 2.0 to 3.0 Tissue heart valves ?INR 2.0 to 3.0 Mechanical prosthetic valves ? INR 2.5 to 3.5 Prevention of recurrent MS ? INR 2.5 to 3.5 Ji aMtos MD LAB BLOOD ORDERABLES Final Re sult Performing Organization Address [facility] de Phone Number [facility] [address] [place] [address] * Phosphorus (05/01/2021 2:21 AM EST) Phosphorus, Plasma 3.8 2.5 - 4.5 mg/dL 05/01/2021 2:56 AM EST [facility] Blood Venous blood specimen / Unknown Venipuncture / Unknown 05/01/2021 2:21 AM EST 05/01/2021 2:27 AM EST Ji Matos MD LAB BLOOD ORDERABLES Final Re sult Performing Organization Address [facility] Phone Number [facility] [address] [place] [address] * (ABNORMAL) Magnesium (05/01/2021 2:21 AM EST) Magnesium, Plasma 1.8(L) 1.9 - 2.4 mg/dL 05/01/2021 2:56 AM EST [facility] Blood Venous blood specimen / Unknown Venipuncture / Unknown 05/01/2021 2:21 AM EST 05/01/2021 2:27 AM EST Ji Matos MD LAB BLOOD ORDERABLES Final Re sult Performing Organization Address [facility] de Phone Number [facility] [address] [place] [address] * (ABNORMAL) CBC (05/01/2021 2:21 AM EST) WBC Count 10.61(H) 3.70 - 10.30 10*3/uL LAB HEMATOLOGY METHOD 05/01/2021 2:34 AM EST [facility] RBC Count 4.03 3.90 - 5.20 10*6/uL LAB HEMATOLOGY METHOD 05/01/2021 2:34 AM EST [facility] HGB 12.1 11.2 - 15.7 g/dL LAB HEMATOLOGY METHOD 05/01/2021 2:34 AM EST [facility] HCT 37.9 34.0 - 45.0 % LAB HEMATOLOGY METHOD 05/01/2021 2:34 AM EST [facility] Platelet Count 289 155 - 369 10*3/uL LAB HEMATOLOGY METHOD 05/01/2021 2:34 AM EST [facility] MCV 94 79 - 98 fL LAB HEMATOLOGY METHOD 05/01/2021 2:34 AM EST [facility] MCH 30.0 26.0 - 32.0 pg LAB HEMATOLOGY METHOD 05/01/2021 2:34 AM EST [facility] MCHC 31.9 30.7 - 35.5 g/dL LAB HEMATOLOGY METHOD 05/01/2021 2:34 AM EST [facility] RDW 13.6 11.5 - 14.5 % LAB HEMATOLOGY METHOD 05/01/2021 2:34 AM EST [facility] MPV 10.3 8.8 - 12.5 fL LAB HEMATOLOGY METHOD 05/01/2021 2:34 AM EST [facility] nRBC 0.0 <=0.0 per 100 WBCs LAB HEMATOLOGY METHOD 05/01/2021 2:34 AM EST [facility] Blood Venous blood specimen / Unknown Venipuncture / Unknown 05/01/2021 2:21 AM EST 05/01/2021 2:26 AM EST us Ji Matos MD LAB BLOOD ORDERABLES Final Re sult [facility] [address] [place] [address] * (ABNORMAL) Basic Metabolic Panel (05/01/2021 2:21 AM EST) [facility] Glucose, Plasma 137(H) 74 - 99 mg/dL 05/01/2021 2:56 AM EST [facility] BUN, Plasma 20 7 - 21 mg/dL 05/01/2021 2:56 AM EST [facility] Creatinine, Plasma 0.85 0.60 - 1.10 mg/dL 05/01/2021 2:56 AM EST [facility] BUN/Creatinine Ratio 24 05/01/2021 2:56 AM EST [facility] Sodium, Plasma 140 136 - 145 mmol/L 05/01/2021 2:56 AM EST [facility] Potassium, Plasma 4.3 3.7 - 4.8 mmol/L 05/01/2021 2:56 AM EST [facility] Chloride, Plasma 105 97 - 107 mmol/L 05/01/2021 2:56 AM EST [facility] CO2, Plasma 23 22 - 29 mmol/L 05/01/2021 2:56 AM EST [facility] Anion Gap 12 6 - 16 mmol/L 05/01/2021 2:56 AM EST [facility] Total Calcium, Plasma 8.7(L) 8.9 - 10.2 mg/dL 05/01/2021 2:56 AM EST [facility] eGFR >60 >60 mL/min/1.7 3m*2 05/01/2021 2:56 AM EST [facility] Comment:eGFR = estimated GFR ; [...] >60 mL/min/1.7 3m*2 05/01/2021 2:56 AM EST [facility] Comment:eGFR = estimated GFR ; [...] Final Re sult [facility] [address] [place] [address] * (ABNORMAL) POCT glucose meter (04/30/2021 11:44 PM EST) Pathologist [facility] POCT Glucose 143(H) 74 - 99 mg/dL [...] Comment 04/30/2021 11:50 PM EST [facility]ALTH[facility]ARE LAB Acute Dialysis Registered Nurse ID Cassie Ford 04/30/2021 11:50 PM EST [facility] Device ID [id number] 04/30/2021 11:50 PM EST [facility] Specimen Type POC Capillary 04/30/2021 11:50 PM EST [facility] Blood Capillary blood specimen / Unknown 04/30/2021 11:44 PM EST 04/30/2021 11:50 PM EST Ji Matos MD LAB POINT OF CARE TE ST DOCKED DEVICE UNSOLICITED RESULTS Final Result [facility] [address] [place] [address] * Lactate, venous (04/30/2021 8:26 PM EST) Pathologist [facility] Lactate, Venous, Whole Blood 0.9 0.5 - 2.2 mmol/L LAB HEMATOLOGY METHOD 04/30/2021 8:32 PM EST [facility] Blood Venous blood specimen / Unknown Venipuncture / Unknown 04/30/2021 8:26 PM EST 04/30/2021 8:30 PM EST Clay Oviedo MD LAB BLOOD ORDERABLES Final Resul t [facility] [address] [place] [address] * CT Head wo IV Contrast (04/30/2021 [...] error, please notify the sender immediately at [phone] and permanently delete the original report and destroy any copies or printouts. Narrative 04/30/2021 5:12 PM EST [facility] ? - Phone [facility] NAME: Ambika Pierre ?? DATE OF EXAM: 04/30/2021 Patient No: ??[id number] Physician: ??Carlo^Ji Date of : ??1965 Past [...] Soft Tissues: Mild left parietal scalp contusion. ??Picayune lens replacements. Skull: There are no calvarial destructive lesions or fractures. Sinuses and Mastoids: No significant paranasal sinus disease. ??Minimal mucosal thickening in the left sphenoid sinus. ??The mastoid air cells are clear. Procedure Note Wes Biswas MD - 04/30/2021 [facility] - Phone [facility] NAME: Ambika Pierre DATE OF EXAM: 04/30/2021 Patient No: [id number] Physician: Palmer Date of : 1965 Past [...] Soft Tissues: Mild left parietal scalp contusion. Picayune lensreplacements. Skull: There are no calvarial destructive [...] in error, pleasenotify the sender immediately at [phone] and permanently delete theoriginal report and destroy [...] WO IV CONTRAST ordered by CLAY OVIEDO [id number] CLINICAL INDICATION: Fracture, knee TECHNIQUE: ?? Multiple [...] LEFT WO IV CONTRAST ordered by CLAY OVIEDO,[id number] CLINICAL INDICATION: Fracture, knee TECHNIQUE: Multiple axial [...] Comment 04/30/2021 4:20 PM EST HEALTHCARE LAB Acute Dialysis Registered Nurse ID Enoch Baptiste 04/30/2021 4:20 PM EST [facility]ARE LAB Device ID [id number] 04/30/2021 4:20 PM EST [facility] Specimen Type POC Capillary 04/30/2021 4:20 PM EST [facility] Blood Capillary blood specimen / Unknown 04/30/2021 4:15 PM EST 04/30/2021 4:20 PM EST Ji Matos MD LAB POINT OF CARE TE ST DOCKED DEVICE UNSOLICITED RESULTS Final Result Performing Organization Address City/[facility]/ZIP Co de Phone Number [facility] [address] [place] [address] * (ABNORMAL) Lactate, venous (04/30/2021 3:36 PM EST) Pathologist [facility] Lactate, Venous, Whole Blood 2.7(H) 0.5 - 2.2 mmol/L LAB HEMATOLOGY METHOD 04/30/2021 3:42 PM EST [facility] Blood Venous blood specimen / Unknown Venipuncture / Unknown 04/30/2021 3:36 PM EST 04/30/2021 3:41 PM EST Clay Oviedo MD LAB BLOOD ORDERABLES Final Resul t [facility] [address] [place] [address] * XR Pelvis 1 or 2 Views (04/30/2021 3:29 PM EST) Anatomical Region Laterality Modality Body, Pelvis Digital Radiogra phy Impressions 04/30/2021 3:39 PM EST No acute osseous findings CRITICAL RESULT: ?? No. COMMUNICATION: Per this written report. Signed by Rosanna Deng on ??04/30/2021 3:39 PM Narrative 04/30/2021 3:39 PM EST Exam/Procedure: XR PELVIS 1 OR 2 VIEWS ordered by CLAY OVIEDO, [id number] CLINICAL INDICATION: femur fracture, needs AP pelvis TECHNIQUE: XR PELVIS 1 OR 2 VIEWS COMPARISON: None. FINDINGS: No acute fracture or malalignment. Procedure Note Rosanna Deng MD - 04/30/2021 Exam/Procedure: XR PELVIS 1 OR 2 VIEWS ordered by CLAY OVIEDO, [id number] CLINICAL INDICATION: femur fracture, needs AP pelvis [...] 3:23 PM EST 04/30/2021 5:48 PM EST [facility] - 04/30/2021 8:41 PM [...] recommendations. This test was performed using the [employer] Alinity m SARS CoV-2 assay, a PCR-based [...] MICROBIOLOGY - GENERAL ORD ERABLES Final Result [facility] [address] [place] [address] * XR Chest 1 View (04/30/2021 2:59 PM EST) Anatomical Region Laterality Modality Chest Digital Radiogra phy Impressions 04/30/2021 3:01 PM EST No acute findings CRITICAL RESULT: ?? No. COMMUNICATION: Per this written report. Signed by Rosanna Deng on ??04/30/2021 3:01 PM Narrative 04/30/2021 3:01 PM EST Exam/Procedure: XR CHEST 1 VIEW ordered by SAMSON BUSTAMANTE, [id number] CLINICAL INDICATION: preop TECHNIQUE: XR CHEST 1 VIEW COMPARISON: None. FINDINGS: Lungs are clear without evidence of focal consolidation or parenchymal opacities. No evidence of a pleural effusion or pneumothorax. Cardiac and mediastinal silhouette are within normal limits. No acute osseous abnormalities. Procedure Note Rosanna Deng MD - 04/30/2021 Exam/Procedure: XR CHEST 1 VIEW ordered by SAMSON BUSTAMANTE, [id number] CLINICAL INDICATION: preop TECHNIQUE: XR CHEST 1 [...] TEST ORDERABLES Final Result BLOOD BANK [address] [place] [address], * (ABNORMAL) CBC w/diff (04/30/2021 2:20 PM EST) WBC Count 14.68(H) 3.70 - 10.30 10*3/uL LAB HEMATOLOGY METHOD 04/30/2021 2:31 PM EST [facility] RBC Count 4.33 3.90 - 5.20 10*6/uL LAB HEMATOLOGY METHOD 04/30/2021 2:31 PM EST [facility] HGB 13.5 11.2 - 15.7 g/dL LAB HEMATOLOGY METHOD 04/30/2021 2:31 PM EST [facility] HCT 40.3 34.0 - 45.0 % LAB HEMATOLOGY METHOD 04/30/2021 2:31 PM EST [facility] Platelet Count 326 155 - 369 10*3/uL LAB HEMATOLOGY METHOD 04/30/2021 2:31 PM EST [facility] MCV 93 79 - 98 fL LAB HEMATOLOGY METHOD 04/30/2021 2:31 PM EST [facility] MCH 31.2 26.0 - 32.0 pg LAB HEMATOLOGY METHOD 04/30/2021 2:31 PM EST [facility] MCHC 33.5 30.7 - 35.5 g/dL LAB HEMATOLOGY METHOD 04/30/2021 2:31 PM EST [facility] RDW 13.5 11.5 - 14.5 % LAB HEMATOLOGY METHOD 04/30/2021 2:31 PM EST [facility] MPV 10.7 8.8 - 12.5 fL LAB HEMATOLOGY METHOD 04/30/2021 2:31 PM EST [facility] nRBC 0.0 <=0.0 per 100 WBCs LAB HEMATOLOGY METHOD 04/30/2021 2:31 PM EST [facility] Differential Type Automated LAB HEMATOLOGY METHOD 04/30/2021 2:31 PM EST [facility] Neutrophils % 78.0 % LAB HEMATOLOGY METHOD 04/30/2021 2:31 PM EST [facility] Lymphocytes % 16.0 % LAB HEMATOLOGY METHOD 04/30/2021 2:31 PM EST [facility] Monocytes % 6.0 % LAB HEMATOLOGY METHOD 04/30/2021 2:31 PM EST [facility] Eosinophils % 0.0 % LAB HEMATOLOGY METHOD 04/30/2021 2:31 PM EST [facility] Basophils % 0.0 % LAB HEMATOLOGY METHOD 04/30/2021 2:31 PM EST [facility] Immature Granulocytes % 0.0 % LAB HEMATOLOGY METHOD 04/30/2021 2:31 PM EST [facility] Neutrophils Absolute 11.34(H) 1.60 - 6.10 10*3/uL LAB HEMATOLOGY METHOD 04/30/2021 2:31 PM EST [facility] Lymphocytes Absolute 2.28 1.20 - 3.90 10*3/uL LAB HEMATOLOGY METHOD 04/30/2021 2:31 PM EST [facility] Monocytes Absolute 0.91(H) 0.30 - 0.90 10*3/uL LAB HEMATOLOGY METHOD 04/30/2021 2:31 PM EST [facility] Eosinophils Absolute 0.03 0.00 - 0.50 10*3/uL LAB HEMATOLOGY METHOD 04/30/2021 2:31 PM EST [facility] Basophils Absolute 0.06 0.00 - 0.10 10*3/uL LAB HEMATOLOGY METHOD 04/30/2021 2:31 PM EST [facility] Immature Granulocytes Absolute 0.06 0.00 - 0.06 10*3/uL LAB HEMATOLOGY METHOD 04/30/2021 2:31 PM EST [facility] Blood Venous blood specimen / Unknown Venipuncture / Unknown 04/30/2021 2:20 PM EST 04/30/2021 2:25 PM EST [facility] - 04/30/2021 2:31 PM EST Therapeutic decision making should be based on absolute values, rather than percentages. us Samson Bustamante MD LAB BLOOD ORDERABLES Final Res ult [facility] [address] [place] [address] * (ABNORMAL) CMP (04/30/2021 2:19 PM EST) Glucose, Plasma 142(H) 74 - 99 mg/dL 04/30/2021 2:54 PM EST [facility] BUN, Plasma 23(H) 7 - 21 mg/dL 04/30/2021 2:54 PM EST [facility] Creatinine, Plasma 0.87 0.60 - 1.10 mg/dL 04/30/2021 2:54 PM EST [facility] BUN/Creatinine Ratio 26 04/30/2021 2:54 PM EST [facility] Sodium, Plasma 142 136 - 145 mmol/L 04/30/2021 2:54 PM EST [facility] Potassium, Plasma 4.2 3.7 - 4.8 mmol/L 04/30/2021 2:54 PM EST [facility] Chloride, Plasma 108(H) 97 - 107 mmol/L 04/30/2021 2:54 PM EST [facility] CO2, Plasma 19(L) 22 - 29 mmol/L 04/30/2021 2:54 PM EST [facility] Anion Gap 15 6 - 16 mmol/L 04/30/2021 2:54 PM EST [facility] Total Calcium, Plasma 9.1 8.9 - 10.2 mg/dL 04/30/2021 2:54 PM EST [facility] Total Protein 7.0 6.3 - 7.9 g/dL 04/30/2021 2:54 PM EST [facility] Albumin, Plasma 4.1 3.5 - 5.2 g/dL 04/30/2021 2:54 PM EST [facility] AST, Plasma 162(H) 11 - 32 U/L 04/30/2021 2:54 PM EST [facility] ALT, Plasma 73(H) 8 - 33 U/L 04/30/2021 2:54 PM EST [facility] Alkaline Phosphatase, Plasma 138 46 - 142 U/L 04/30/2021 2:54 PM EST [facility] Total Bilirubin, Plasma 0.6 0.2 - 1.1 mg/dL 04/30/2021 2:54 PM EST [facility] eGFR >60 >60 mL/min/1.7 3m*2 [...] ORDERABLES Final Res ult Performing Organization Address City/State/[facility] Co de Phone Number [facility]ALTHCARE LAB [address] [place], [place] [id number] * PT-INR (04/30/2021 2:19 PM EST) Prothrombin Time 12.4 12.0 - 14.3 sec LAB COAGULATION METHOD 04/30/2021 2:57 PM EST [facility] INR 1.0 0.9 - 1.1 LAB COAGULATION METHOD 04/30/2021 2:57 PM EST [employer] [facility] Blood Venous blood specimen / Unknown Venipuncture / Unknown 04/30/2021 2:19 PM EST 04/30/2021 2:25 PM EST Narrative [facility] [facility] - 04/30/2021 2:57 PM EST OPTIMAL INR RANGES FOR PATIENT ON ORAL ANTICOAGULANT THERAPY Prevention of venous thromboembolism ?INR 2.0 to 3.0 In patients with heart disease: Atrial fibrillation ?INR 2.0 to 3.0 Valvular heart disease ? INR 2.0 to 3.0 Tissue heart valves ?INR 2.0 to 3.0 Mechanical prosthetic valves ? INR 2.5 to 3.5 Prevention of recurrent MS ? INR 2.5 to 3.5 us Samson Bustamante MD LAB BLOOD ORDERABLES Final Res ult Performing Organization Address [facility] de Phone Number [facility] [address] [place] [address] * EKG now - STAT (adult) (04/30/2021 2:08 PM EST) EKG DIAGNOSIS CLASS Normal MUSE ECG Ventricular Rate 87 BPM MUSE ECG Atrial Rate 87 BPM MUSE ECG RI Interval 120 ms MUSE ECG QRSD Interval 76 ms MUSE ECG QT Interval 374 ms MUSE ECG QTC Interval 450 ms MUSE ECG P Monroe 48 degrees MUSE ECG R [place] 40 degrees MUSE ECG T Wave [place] 74 degrees MUSE ECG Diagnosis Poor data quality MUSE ECG Diagnosis Confirmed by Garcia Leonard ([id number]) on 05/01/2021 11:23:11 AM MUSE ECG 04/30/2021 2:08 PM EST 05/01/2021 11:23 AM EST us Samson Bustamante MD ECG ORDERABLES Final Result Performing Organization Address [facility] de Phone Number MUSE ECG [...] LEFT 2+ VIEWS ordered by SAMSON BUSTAMANTE [id number] CLINICAL INDICATION: fall, pain TECHNIQUE: XR TIBIA [...] FIBULA LEFT 2+ VIEWS ordered by SAMSON [id number] CLINICAL INDICATION: fall, pain TECHNIQUE: XR TIBIA [...] LEFT 2+ VIEWS ordered by SAMSON BUSTAMANTE, [id number] CLINICAL INDICATION: fall, pain TECHNIQUE: XR TIBIA [...] FIBULA LEFT 2+ VIEWS ordered by SAMSON BUSTAMANTE,[id number] CLINICAL INDICATION: fall, pain TECHNIQUE: XR TIBIA [...] LEFT 2+ VIEWS ordered by SAMSON BUSTAMANTE, [id number] CLINICAL INDICATION: fall, pain TECHNIQUE: XR TIBIA [...] FIBULA LEFT 2+ VIEWS ordered by SAMSON BUSTAMANTE,[id number] CLINICAL INDICATION: fall, pain TECHNIQUE: XR TIBIA [...] LEFT 2+ VIEWS ordered by SAMSON BUSTAMANTE, [id number] CLINICAL INDICATION: fall, pain TECHNIQUE: XR TIBIA [...] FIBULA LEFT 2+ VIEWS ordered by SAMSON BUSTAMANTE,[id number] CLINICAL INDICATION: fall, pain TECHNIQUE: XR TIBIA [...] left femur, unspecified fracture morphology, initial encounter ([facility]) Closed fracture of left distal femur ([facility]) Fall Unspecified fall Diabetes ([facility]) Type II or unspecified type [...] 9:45 AM EST 1 tablet nystatin (Mycostatin) [id number] UNIT/GM powder 1 application Topical, 2 times [...] - Provider: Jennifer Bernard RN) nystatin (Mycostatin) [id number] UNIT/GM powder 1 application Topical, 2 times [...] care documented in this encounter Care Teams Client Services Vice President Relationship Specialty Start Date End Date Salima Gonzáles DO [address] [place] [address] Dr JAMAL [place] [address] PCP - General 09/17/20 documented as of this encounter
--- OUTSIDE RECORDS SUMMARY | 2024-04-06 23:30 | XMS_ITS | Encounter Summary ---
Author Organization Healthcare Address [address] [place], [place] [address] Care Team Providers Care Information Technology Security Analyst Name Role Phone Eliecer Salima Tate SWANN Primary Care Provider [phone] Reason for Visit * Auth/Cert Specialty Diagnoses / Procedures Referred By Contac t Referred To Contact Diagnoses Closed fracture of distal end of left femur, unspecified fracture morphology, initial encounter ([facility]) Fall, femur fx Drew Matos MD [address] [address] Phone: tel: fax: [facility] In[facility] [address] [place] [address] Phone: tel: Referral ID Status Reason Start Date Expiration Date Visits Re quested Visits Authorized [id number] 1 1 Encounter Details Date Type Department Care Team (Late st Contact Info) Description 05/01/2021 1:00 PM EST Anesthesia Event [facility] OPERATING ROOM [address] [place] [address] Patricio Figueroa MD [address] [place] [address] Brenda Graves MD Anesthesia Record Procedure Summary Procedure Name Responsible Anesthesiologist Anesthesia Start Time Anesthesia Stop Time INSERTION, INTRAMEDULLARY SCOTT, FEMUR Weems Periprosthetic Retrograde Femur Nail (Left: Leg Upper) Patricio Figueroa MD 05/01/21 1300 05/01/21 1606 Events Date [...] Date/Time: 05/01/21914 Procedure: INSERTION, INTRAMEDULLARY SCOTT, FEMUR Weems Periprosthetic Retrograde Femur Nail (Left Leg Upper) - 1A Case #2; Supine, Anuj table, Weems periprosthetic femur nail, Weems PS poly; trauma toolbox, ortho soft tissue [...] ANESTHESIA PLACEHOLDER Routine 05/01/2021 1:09 PM EST MS AN ELECTIVE ENDOTRACHEAL AIRWAY Routine 05/01/2021 1:09 [...] MD ANESTHESIA ORDERABLES Final Re sult * MS AN ELECTIVE ENDOTRACHEAL AIRWAY, PB ANESTHESIA PLACEHOLDER [...] mg documented in this encounter Care Teams Information Technology Security Analyst Relationship Specialty Start Date End Date Salima Gonzáles DO [address] [place] [address] PCP - General 09/17/20 documented as of this encounter
--- OUTSIDE RECORDS SUMMARY | 2024-04-06 23:31 | XMS_ITS ---
Care Plan - [facility], [facility] Created on: April 07, 2024 Fadi Pratt Neetu Galo : 1965 Sex: Female Author Organization [facility] Address [address] [place] [address] Phone Care Team Providers Care Tile Fitter Name Role Phone Dereje PORTILLO, Gilberto Godfrey Unavailable [phone]
--- OUTSIDE RECORDS SUMMARY | 2024-04-06 23:31 | XMS_ITS ---
Care Plan - [facility], [facility] Created on: April 07, 2024 Neetu Murillo : 1965 Sex: Female Author Organization [facility] Address [address] [place] [address] Phone Care Team Providers Care Head Baker Name Role Phone Isiah Sheridan DPM Unavailable [phone] Salima Gonzáles DO Primary Care Provider [phone]
--- OUTSIDE RECORDS SUMMARY | 2024-04-06 23:31 | XMS_ITS | Clinical Summary ---
Author Organization [facility] [place] [address] Care Team Providers Care Multi Skilled Operator Name Role Phone Unavailable Primary Care [...]
--- OUTSIDE RECORDS SUMMARY | 2024-04-06 23:31 | XMS_ITS | Referral Summary ---
Author Organization [facility] [place] [address] Care Team Providers Care Breaker Oiler Name Role Phone Unavailable Primary Care Provider [...]
--- OUTSIDE RECORDS SUMMARY | 2024-04-06 23:31 | XMS_ITS | Encounter Summary ---
Author Organization Healthcare Address [address] [place] [address] Care Team Providers Care Travograph Operator Name Role Phone Salima Gonzáles DO Primary Care Provider [phone] Encounter Details Date Type Department Care Team [...] on filedocumented in this encounter Care Teams Travograph Operator Relationship Specialty Start Date End Date Salima Gonzáles DO [facility] [place] [address] PCP - General 09/17/20 documented as of this encounter
--- OUTSIDE RECORDS SUMMARY | 2024-04-06 23:31 | XMS_ITS ---
Author Organization [facility] Address [address] [place] [address] Phone Care Team Providers Care Underground Miner Name Role Phone Isiah Sheridan DPM Unavailable [phone] Salima Gonzáles DO Primary Care Provider [phone] Plan of Treatment Future Appointments Date Time Location Provi nurys Physician Specified 04/10/2024 8:30AM HUA Simmons [facility] KASIGLUKANUEL Gordon PA-C Last Documented On 11:35AM ; [facility] Assessments Includes: Assessments for all patient [...] Guarantor Ph one Neetu Murillo Self [phone] Clinical Notes Includes: Signed Clinical Notes starting from 04/20/2022 No Clinical Notes Recorded
--- OUTSIDE RECORDS SUMMARY | 2024-04-06 23:31 | XMS_ITS ---
Author Organization [facility] Address [address] [place] [address] Phone Care Team Providers Care Bean Sprout Laborer Name Role Phone Dereje PORTILLO, Gilberto Godfrey Unavailable [phone] Plan of Treatment No Plan [...] Subscriber Relationship Effect jhony Dates 1 - [facility] [id number] Neetu Pratt Self Clinical Notes Includes: Signed Clinical Notes starting from 04/20/2022 No Clinical Notes Recorded
--- OUTSIDE RECORDS SUMMARY | 2024-04-06 23:31 | XMS_ITS | Encounter Summary ---
Author Organization [place] [address] Care Team Providers Care Concert Or Lecture Hall Manager Name Role Phone Unavailable Primary Care Provider Unavailabl e Encounter Details Date Type Department Care Team (Late st Contact Info) Description 09/19/2008 4:59 AM EDT - 09/19/2008 7:03 AM EDT Hospital Encounter HST EPIC CON UNK GRT Bebeto Walsh MD [address] [place] [address] [facility] [address] Social History Tobacco Use Types Packs/Day [...] voltages in precordial leads Abnormal ECG ? Molding Manager- MANAV CASTRO ? Reading Physician- MANAV CASTRO ??MD ? Released Date Time- 09/19/081635 Procedure Note Sunil Manav Galo - 07/15/2009 Sinus rhythm. Low QRS voltages in precordial leads Abnormal ECG Molding Manager- MANAV CASTRO MD Reading Physician- MANAV CASTRO MD Released Date Time- 09/19/081635 Bebeto Walsh MD [facility] HISTORICAL Fi nal Result * XR CHEST PORTABLE GC (09/19/2008 5:00 AM EDT) Anatomical Region Laterality Modality Other 09/19/2008 5:00 AM EDT Narrative 09/19/2008 8:54 AM EDT Examinations of the chest Indications- ??Pain. History- Pain. Single frontal view of the chest demonstrates the heart size to be within normal limits. There is no infiltrate. Impression- No infiltrate. ? Molding Manager- SCARLET TENA ? Reading Physician- FORREST ALEXANDRA ??M.D. ? Released Date Time- 09/19/08 1138 Procedure Note Forrest Alexandra - 07/15/2009 Examinations of the chest Indications- Pain. History- Pain. Single frontal view of the chest demonstrates the heart size to be within normal limits. There is no infiltrate. Impression- No infiltrate. Molding Manager- SCARLET Byrd Physician- FORREST ALEXANDRA M.D. Released Date Time- 09/19/08 1138 Bebeto Walsh MD [facility] al Result documented in this encounter Visit Diagnoses Not on filedocumented in this encounter
--- OUTSIDE RECORDS SUMMARY | 2024-04-06 23:31 | XMS_ITS | Encounter Summary ---
Author Organization Healthcare Address [address] [id number] Care Team Providers Care Printing Equipment Mechanic Apprentice Name Role Phone Eliecer Salima Tate SWANN Primary Care Provider [phone] Reason for Visit * Reason Comments Fall * Auth/Cert Specialty Diagnoses / Procedures Referred By Contac t Referred To Contact Diagnoses Closed fracture of distal end of left femur, unspecified fracture morphology, initial encounter (CMS/[facility]) Fall, femur fx Ji Atkins MD [address] [place] [address] Phone: tel: fax: [facility] H Inpatient [address] [place] [address] Phone: tel: Referral ID Status Reason Start Date Expiration Date Visits Re quested Visits Authorized [id number] 1 1 Encounter Details Date Type Department Care Team (Late st Contact Info) Description 05/01/2021 9:15 AM EST - 05/01/2021 2:32 PM EST Surgery [facility] A OPERATING ROOM [address] [place] [id number] Bebeto Flynn MD [address] [place] [address] INSERTION, INTRAMEDULLARY JESSE, FEMUR Abdiel Periprosthetic Retrograde Femur Nail Surgery Details Date/Time Status Location OR Service Patient Class Case Class Case Type Trauma Case? 05/01/2021 9:15 AM Posted PAO OR [facility] OR 01 Orthopedic Surgery Inpatient B-Urgent: to be done within 4 hours Panel 1 Procedure LRB Anes Op Region Wound Class Comments INSERTION, INTRAMEDULLARY JESSE, FEMUR [place] Periprosthetic Retrograde Femur Nail Left General Leg Upper 1A Case #2; Supine, Anuj table, [place] periprosthetic femur nail, Abdiel PS poly; trauma [...] clot in the space between bone fragments. [employer] last reviewed this educational content on 09/04/2017 ?? 1347-3477 The [employer]. All rights reserved. This information is not intended as a substitute for professional medical care. Always follow your healthcare professional's instructions. * Attachments The following attachments cannot be sent through Care Everywhere. * Femur Fracture Open Reduction and Internal Fixation (ORIF), Understanding (Faroese) * Femur Fracture Open Reduction and Internal Fixation (ORIF), Having (Faroese) * Fractured Femur: Internal Fixation, Discharge Instructions for (Faroese) * Surgical Site Infections, Preventing (Faroese) * Weight Bearing Status: What It Means ([place]) (Faroese) * Acetaminophen Oral Tablet 500 mg (Faroese) * Enoxaparin Prefilled Syringe 60 mg/0.6 mL (Faroese) * Gabapentin Oral Capsule 300 mg (Faroese) * Levofloxacin Oral Tablet 750 mg (Faroese) * Melatonin Oral Tablet 3 mg (Faroese) * Methocarbamol Oral Tablet 500 mg (Faroese) * Oxycodone Oral Tablet 5 mg (Faroese) * Controlled Substance Discharge Sheet - [facility] () (Faroese) * Senna /Docusate Oral Tablet 8.6 mg / 50 mg (Faroese) documented in this encounter Medications at Time [...] HH PT/OT. Referrals for DME sent to [facility]. Referrals sent for HH. No accepting agency at this time. Provider to give pt a script for outpt PT/OT in the event she isn't picked up by HH. Will follow and assist asneeded. Marilu CHAVIRA, RN Trauma/EGS [phone] * Discharge Instr - Appointments - Isiah Crawley RN - 05/06/2021 9:44 AM EST Follow up with Primary Care Provider one week after discharge. Follow up as needed with trauma clinic (Sunday clinic) [address] [place] [address] Clinic 1st [place] [address] Questions or Concerns and Appointments If there are questions or concerns after discharge from the hospital, please call [phone] and ask for Blue Surgery Nurse. Working hours are Sunday - Sunday 8:00 AM to 4:00 PM. After hours, weekends and holidays please call [phone] and ask for the resident composite bond worker for Blue Surgery. For appointments please call [phone]. Medication requests should be made between the hours of 9:00 AM to 3:00 PM Sunday thru Sunday. Please note that based upon recent changes to [place] law related to prescribing opioid pain medications, [...] Transfer Exam: Sit to stand Level of Obion: Stand-by assist Physical/Nonphysical Assist: Verbal Cues (for hand placement) Assistive Device: Walker, rolling Transfer Exam: Stand to Sit Level of Obion: Stand-by assist Physical/Nonphysical Assist: Verbal Cues (for [...] name and Address: Salima Gonzáles, DO [address] / [facility] [address] Referring provider name and address: Shaquille Gaming MD [address] [address] Chief Concern, Brief History of Present Illness, [...] needed with trauma clinic (Sunday clinic) [address] [place] [address] 1st [place] [address] Questions or Concerns and Appointments If there are questions or concerns after discharge from the hospital, please call [phone] and ask for Blue Surgery Nurse. Working hours are Sunday - Sunday 8:00 AM to 4:00 PM. After hours, weekends and holidays please call [phone] and ask for the resident composite bond worker for Blue Surgery. For appointments please call [phone]. Medication requests should be made between the hours of 9:00 AM to 3:00 PM Sunday thru Sunday. Please note that based upon recent changes to [place] law related to prescribing opioid pain medications, our providers will not provide refills on controlled medications after your hospital discharge following a major surgery or trauma. [place] 201 KAR9:260. Surgeries and Procedures Procedures performed in this encounter Procedures ??? Case Request Operating Room: INSERTION, INTRAMEDULLARY JESSE, FEMUR [place] Periprosthetic Retrograde Femur Nail INSERTION, INTRAMEDULLARY JSESE, FEMUR [place] Periprosthetic Retrograde Femur Nail (Left) Medication List [...] Medications These medications were sent to [facility] [place], [place] - [address] , [facility] [address] ?? acetaminophen 500 MG tablet ?? enoxaparin [...] Center 05/17/2021 8:10 AM Bebeto Flynn MD ORTHGSMEB GS MOB Pertinent Physical Exam At Time [...] Note Ambika Pratt 55 y.o. female CSN: [id number] Room/Bed 874/874A Nutrition evaluation type: assessment Reason for evaluation: LOS Hospital course: 55 yo female S/P ORIF left femur fracture on 05/01. Past medical/ surgical history: has a past medical history of COPD (chronic obstructive pulmonary disease) ([facility]), Diabetes mellitus ([facility]), Hypertensive heart disease without congestive heart failure, and Lactic acidosis (04/30/2021). Social history: Additional comments: Vitals and Basic Assessment: BP: 115/82 Temp: 36.7 ??C (98.1 ??F) Oxygen Therapy: None (Room air) O2 Delivery Method: Nasal cannula Mclean Coma Scale Score: 15 Ranulfo Scale Score: [...] Weight Evaluation: Extreme Obesity (BMI > 40) Moro Body Weight (kg): 47.7 Percent Moro Body Weight: 252 Estimated Needs: Grams of CHO Percent calories from CHO: Current Nutrition Intake: Diet Order: Adult Diet Diet Texture: Regular Adult Carbohydrate Restriction: Consistent CHO 2 (2403-4449 Usman, 80 g/meal) Percent Meals Eaten (%): 75%/75%/33% (05/03) Diet Experience and Nutrition History: Diet Education Provided: Will monitor Pertinent home medications: Zoroastrian needs: Nutrition Focused Physical Exam: Unable to [...] Note Ambika Pratt 55 y.o. female CSN: [id number] Admission: 04/30/2021 12:34 PM Primary Problem: Closed fracture of left distal femur (CMS/HCC) Anticipated Discharge Date: tbd Has Discharge Plans Changed? No Additional Comments Per primary treatment team, patient medically ready for rehab. Referral sent to [facility] 05/03, reviewing for possible acceptance. will continue to follow and assist. JOSE Castillo, HUMAN ANATOMY TEACHER Trauma/EGS Graphics Intern [phone] * Progress Notes - Tad Fuller PTA [...] session. Participants in Care Family/Caregiver Present: No Customs And Border Protection Inspector: Not Applicable Presentation Oxygen Therapy: None [...] PM. * Progress Notes - Yamini Belcher, PULPER TENDER - 05/05/2021 10:02 AM EST 05/05/21 Ambika [...] urination. Patient tolerating po intake. Last BM NEWS VIDEO EDITOR. Patient and nurse have no other concerns [...] sessions. Participants in Care Family/Caregiver Present: No Customs And Border Protection Inspector: Not Applicable Presentation Oxygen Therapy: None [...] transfer. Bed Mobility Exam: Rolling/Turning Level of Obion: Contact guard Physical/Nonphysical Assist: Set-up required Assistive Device: Bed rails Bed Mobility Exam: Scooting/Bridging Level of Obion: Contact guard (in sitting to edge of bed) Physical/Nonphysical Assist: Set-up required,Verbal Cues Assistive Device: Bed rails Bed Mobility Exam: Supine to Sit Level of Obion: Contact guard Physical/Nonphysical Assist: Set-up required,Verbal Cues,Moderate cues Assistive Device: Bed rails Bed Mobility Exam: Sit to Supine Level of Obion: (Pt left seated in bedside chair.) Transfers Transfer Exam: Sit to stand Level of Obion: Contact guard Physical/Nonphysical Assist: Set-up required,Verbal Cues,Minimal cues Assistive Device: Walker, rolling Transfer Exam: Stand to Sit Level of Obion: Contact guard Physical/Nonphysical Assist: Set-up required,Verbal Cues,Minimal cues Assistive Device: Walker, rolling Transfer Exam: Bed to Chair/Chair to Bed Level of Obion: Contact guard Physical/Nonphysical Assist: Set-up required,Verbal Cues [...] a helper. 5 Set-up or Clean-up Assistance [place] sets up or cleans up; patient completes activity. [place] assists only prior to or following the activity. 4 Supervision or touching assistance [place] provides verbal cues and/or touching/steadying and/or contact guard assistance as patient completes activity. Assistance may be provided throughout the activity or intermittently. 3 Partial/Moderate Assistance [place] does LESS THAN HALF the effort. [place] lifts, holds or supports trunk or limbs, but provides less than half the effort. 2 Substantial/Maximal Assistance [place] does MORE THAN HALF the effort. [place] lifts or holds trunkor limbs and provides more than half the effort. 1 Dependent [place] does ALL of the effort. Patient does [...] Note Ambika Pratt 55 y.o. female CSN: [id number] Admission: 04/30/2021 12:34 PM Primary Problem: Closed fracture of left distal femur (CMS/HCC) Anticipated Discharge Date: tbd Has Discharge Plans Changed? No Additional Comments Per primary treatment team, patient is medically ready for discharge on this date. PT re-evaluated on this date due to concerns of discharge home. Recs changed to acute rehab. SW sent referrals to [facility] and [facility] on this date. SW will continue to follow and assist. JOSE Castillo, HUMAN ANATOMY TEACHER Trauma/EGS Graphics Intern [phone] * Progress Notes - Gabby Pratt APRN [...] APRN * Progress Notes - Aurora Ryan, NEWS VIDEO EDITOR - 05/03/2021 11:03 AM EST Physical Therapy [...] Mobility Bed Mobility Exam: Scooting/Bridging Level of Obion: Minimum assist (75% patient's effort) Physical/Nonphysical Assist: Set-up required,Verbal Cues Assistive Device: Bed rails Bed Mobility Exam: Supine to Sit Level of Obion: Minimum assist (75% patient's effort) Physical/Nonphysical Assist: Moderate cues (HOB flat) Assistive Device: Bed rails Transfers Transfer Exam: Sit to stand Level of Obion: Minimum assist (75% patient's effort) Physical/Nonphysical Assist: Set-up required,Verbal Cues,Moderate cues Assistive Device: Walker, rolling Transfer Exam: Stand to Sit Level of Obion: Contact guard Physical/Nonphysical Assist: Set-up required,Verbal Cues,Minimal cues Assistive Device: Walker, rolling Toilet Transfer Level of Obion: Minimum assist (75% patient's effort) Physical/Nonphysical Assist: [...] Assessment Unable to assess 05/03/21799 Nia-Wound Assessment Red;Ecchymotic;Erythematous;Hyperpigmented;Ethete;Dry 05/03/21799 Drainage Amount None 05/03/21 08 Treatments [...] please contact the Orthopedic Transition Nurse at [phone] Sunday through Sunday 8:00 am to 2:30 pm. If you feel your concern is a medical emergency please call 911 immediately. Based upon recent changes to [place] law related to prescribing opioid pain medications, [...] standpoint Travis Neumann MD PGY-3, Orthopaedic Surgery [facility] Orthopaedic Trauma Service Pager: [phone] Orthopaedic Recon/Spine/Foot and Ankle Service Pager: [phone] Personal Pager: [phone] Cosigned by Vadim Molina MD at 05/06/2021 [...] Aguilar Aponte Terence 55 y.o. female CSN: [id number] Admission: 04/30/2021 12:34 PM Primary Problem: Closed fracture of left distal femur (CMS/HCC) Civil Engineering Professor reviewed chart and spoke with patient to complete this Initial Case Management Assessment. PCP: Salima Gonzáles DO Emergency Contact: Extended Emergency Contact Information Primary Emergency Contact: Ambreen De Anda Mobile Relation: Daughter Preferred language: Faroese Customs And Border Protection Inspector needed? No Insurance: Primary Visit Coverage Payer Plan Sponsor Code Group Number Group Name ANTHEM MEDICARE ANTHEM SENIOR ADVANTAGE [id number] Primary Visit Coverage Subscriber Subscriber ID Subscriber Name Subscriber SSN Subscriber Address [id number] AMBIKA MOSCOSO [id number] [place] [address] Patient information: Patient is a 55 y.o. female admitted due to a fall from standing after tripping over her grandson'stoys. Injuries include closed fracture of left distal femur. Daily Living Activities: [address] [place] [address] Anticipated Discharge Date: tbd Assistance Available at [...] continue to follow and assist. 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 Standardized Assessments [facility] 6-Clicks Mobility Assessment Difficulty patient has turning [...] climbing 3-5 steps with a railing?: Unable [facility] 6-Clicks Mobility Assessment Total : 18 Assessment [...] assistance Equipment Recommended: Rolling walker,Bedside commode History mAbika Pratt is 55 y.o. y/o female admitted 04/30/2021 for work-up of Closed fracture of left distal femur (CMS/HCC). Problem List Active Hospital Problems Diagnosis Date Noted ??? HTN (hypertension) 05/01/2021 ??? Obesity 05/01/2021 ??? Fibromyalgia 05/01/2021 ??? Closed fracture of left distal femur (CMS/HCC) 04/30/2021 ??? Fall 04/30/2021 ??? Diabetes (CMS/HCC) 04/30/2021 ??? 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 Pt scooted(I) in bedside chair to back of chair.) Physical/Nonphysical Assist: Set-up required,Verbal Cues Assistive Device: Other (draw sheet) Bed Mobility Exam: Supine to Sit Level of Obion: Minimum assist (75% patient's effort) Physical/Nonphysical Assist: HOB elevated,Set-up required,Verbal Cues Assistive Device: Bed rails Bed Mobility Exam: Sit to Supine Level of Obion: (Pt left seated in bedside chair.) Balance [...] up: Dr. Flynn, 05/17/21 Disposition: admitted to [facility] Johnny Agudelo MD PGY-1, Orthopaedic Surgery [facility] Orthopaedic Trauma Service Pager: [phone] Orthopaedic Recon/Spine/Foot and Ankle Service Pager: [phone] Cosigned by Bebeto Flynn MD at 05/02/2021 [...] PM EST Operative Note Date: 05/01/21 Location: [facility] Name: Ambika Pratt, : 1965, Diagnoses: Pre-op Diagnosis Closed fracture of distal end of left femur, unspecified fracture morphology, initial encounter ([facility]) Post-op Diagnosis Closed fracture of distal end of left femur, unspecified fracture morphology, initial encounter ([facility]) Procedure(s): Treatment of femoral shaft fracture with intramedullary implant Attending Surgeon(s): * Bebeto Flynn - Primary Web Application Dev Specialist(s): Dr. Crow Lockwood Anesthesia: General ASA: III [...] RETRO T2 ALPHA 11MM X 340MM - [id number] Implanted Screw SCREW LOCKING T2 D5XL80 - [id number] - [id number] Implanted [id number] SCREW LOCKING T2 D5XL50 - [id number] Implanted SCREW LOCKING T2 D5XL60 - [id number] Implanted SCREW LOCKING T2 D5XL75 - [id number] Implanted SCREW LOCKING T2 D5XL55 - [id number] Implanted SCREW LOCKING T2 D5X32.5 - [id number] Implanted SCREW LOCKING T2 D5X37.5 - [id number] Implanted Specimen: none Findings: stable fracture, stable [...] knee was noted to be a Press-Fit [place] Triathlon. Despite continuing the hospital, implant records [...] proximal interlocking bolts were placed using perfect levelock technique. Final fluoroscopic imaging demonstrated acceptable reduction and cheondoism of length alignment rotation when comparing lessre [...] 05/01/2021 1:45 PM EST Date: 05/01/21 Location: [facility] Name: Ambika Pratt, : 1965, Diagnoses: Pre-op Diagnosis Closed fracture of distal end of left femur, unspecified fracture morphology, initial encounter ([facility]) Post-op Diagnosis Closed fracture of distal end of left femur, unspecified fracture morphology, initial encounter ([facility]) Procedure(s): Retrograde IMN L femur fx Attending Surgeon(s): Tiny Flynn - Primary Web Application Dev Specialist(s): florin Anesthesia: General ASA: III Blood Administration: Blood Product Administration History None Estimated Blood Loss: 250 mL Drains: * None in log * Implants Type Name Action Serial No. Nail NAIL FEMORAL RETRO T2 ALPHA 11MM X 340MM - [id number] Implanted Screw SCREW LOCKING T2 D5XL80 - [id number] - [id number] Implanted [id number] SCREW LOCKING T2 D5XL50 - [id number] Implanted SCREW LOCKING T2 D5XL60 - [id number] Implanted SCREW LOCKING T2 D5XL75 - [id number] Implanted SCREW LOCKING T2 D5XL55 - [id number] Implanted SCREW LOCKING T2 D5X32.5 - [id number] Implanted SCREW LOCKING T2 D5X37.5 - [id number] Implanted Specimen: none Findings: stable fracture Complications: [...] needed with trauma clinic (Sunday clinic) [address] [facility] 1st floor [place], [place] [address] Questions or Concerns and Appointments If there are questions or concerns after discharge from the hospital, please call [phone] and ask for Blue Surgery Nurse. Working hours are Sunday - Sunday 8:00 AM to 4:00 PM. After hours, weekends and holidays please call [phone] and ask for the resident composite bond worker for Blue Surgery. For appointments please call [phone]. Medication requests should be made between the hours of 9:00 AM to 3:00 PM Sunday thru Sunday. Please note that based upon recent changes to [place] law related to prescribing opioid pain medications, [...] Edited by: Ava Joseph APRN at 05/01/2021 0891 Past Medical History: Active Ambulatory Problems Diagnosis Date Noted ??? No Active Ambulatory Problems Resolved Ambulatory Problems Diagnosis Date Noted ??? No Resolved Ambulatory Problems Past Medical History: Diagnosis Date ??? COPD (chronic obstructive pulmonary disease) (CMS/[facility]) ??? Diabetes mellitus (CMS/[facility]) ??? Hypertensive heart disease without congestive heart [...] (Principal) Closed fracture of left distal femur ([facility]) Overview Addendum 04/30/2021 4:01 PM by Forrest [...] Hdz MD Admit to trauma floor Diabetes ([facility]) Overview Addendum 05/01/2021 8:17 AM by Ava [...] Resident Physician Orthopedic Reconstructiion ([facility]) Service Pager: [phone] Orthopedic Trauma ([facility]) Service Pager: [phone] Cosigned by Bebeto Flynn MD at 05/01/2021 [...] history of COPD (chronic obstructive pulmonary disease) ([facility]), Diabetes mellitus ([facility]), and Hypertensive heart disease without congestive heart [...] on file Employer: [employer] Immunizations VACCINE/DOSE Flu Tetanus Pneumovax Shingles A [...] (264 lb 8.8 oz), SpO2 98 %. Mclean 15 Intubated No Recent Results Labs in [...] knee replacements with Dr. Doty, now in [place], [place]. Surgeries performed in [facility]. L TKA 2013. Press fit Abdiel Triathalon. Reports uncomplicated postoperative course, satisfied with outcome. R TKA 2015. Lithotripsy approx 10 days ago Heel spur removal x2 x2 Hysterectomy Cholecystectomy FAMILY HISTORY Family history reviewed and otherwise non-contributory. SOCIAL HISTORY Tobacco: 1/2ppd [id number] EtOH: denies Illicits: denies Lives in [place], [place] with daughter Employment: [employer] REVIEW OF SYSTEMS Review of systems is [...] institutional protocol Daniel Campoverde MD Orthopaedic Surgery [facility] Orthopaedic Trauma Service Pager: [phone] Orthopaedic Recon/Spine/Foot and Ankle Service Pager: [phone] Cosigned by Bebeto Flynn MD at 05/01/2021 [...] on file Employer: [employer] Travel History Relevant International Travel History: Travel [...] left femur, unspecified fracture morphology, initial encounter ([facility]) MDM Number of Diagnoses or Management Options Closed fracture of distal end of left femur, unspecified fracture morphology, initial encounter ([facility]) Diagnosis management comments: I assessed this patient [...] progress: stable Donna Marino MD Resident 04/30/21 [id number] Cosigned by Samson Nguyen MD at 05/01/2021 [...] left femur, unspecified fracture morphology, initial encounter ([facility]) PROTHROMBIN TIME(PT) / INR Routine 05/01/2021 2:21 [...] Comment 05/06/2021 11:40 AM EST [facility] Cane Flume Feeding Machine Operator ID Iram Phillips 05/06/2021 11:40 AM EST [facility] Device ID [id number] 05/06/2021 11:40 AM EST [facility] Specimen Type POC Capillary 05/06/2021 11:40 AM EST [facility] Blood Capillary blood specimen / Unknown 05/06/2021 11:34 AM EST 05/06/2021 11:40 AM EST Dory Slade MD LAB POINT OF CARE TEST DOCKED DEVICE UNSOLICITED RESULTS Final Result Performing Organization Address City/State/[facility] Co de Phone Number [facility] [address] [place] [address] * SARS CoV-2/COVID-19 by PCR (05/06/2021 10:05 AM EST) [facility] SARS CoV-2/COVID-1 9 RNA PCR Result Not [...] recommendations. This test was performed using the [employer] M2000 SARS CoV-2 test, a qualitative PCR-based [...] OR DERABLES Final Result Performing Organization Address [facility] Co de Phone Number [facility] [address] [place] [address] * (ABNORMAL) POCT glucose meter (05/06/2021 7:26 [...] Comment 05/06/2021 7:30 AM EST [facility] Cane Flume Feeding Machine Operator ID Iram Phillips 05/06/2021 7:30 AM EST [facility] Device ID [id number] 05/06/2021 7:30 AM EST [facility] Specimen Type POC Capillary 05/06/2021 7:30 AM EST [facility] Blood Capillary blood specimen / Unknown 05/06/2021 7:26 AM EST 05/06/2021 7:30 AM EST Dory Slade MD LAB POINT OF CARE TEST DOCKED DEVICE UNSOLICITED RESULTS Final Result Performing Organization Address [facility] de Phone Number [facility] [address] [place] [address] * (ABNORMAL) POCT glucose meter (05/05/2021 7:26 [...] 05/05/2021 7:30 PM EST [facility] C[employer] Feeding Machine Operator ID Sandra Araujo 021 7:30 PM EST [facility] Device ID [id number] 05/05/2021 7:30 PM EST [facility] Specimen Type POC Capillary 05/05/2021 7:30 PM EST [facility] Blood Capillary blood specimen / Unknown 05/05/2021 7:26 PM EST 05/05/2021 7:30 PM EST us Dory Slade MD LAB POINT OF CARE TEST DOCKED DEVICE UNSOLICITED RESULTS Final Result Performing Organization Address [facility] Co de Phone Number [facility] [address] [place] [address] * (ABNORMAL) POCT glucose meter (05/05/2021 6:22 [...] 05/05/2021 6:25 PM EST [facility] C[employer] Feeding Machine Operator ID Keeley Womack 05/05/20 6:25 PM EST [facility] Device ID [id number] 05/05/2021 6:25 PM EST [facility] Specimen Type POC Capillary 05/05/2021 6:25 PM EST [facility] Blood Capillary blood specimen / Unknown 05/05/2021 6:22 PM EST 05/05/2021 6:25 PM EST us Dory Slade MD LAB POINT OF CARE TEST DOCKED DEVICE UNSOLICITED RESULTS Final Result Performing Organization Address City/[facility] Co de Phone Number [facility] [address] [place] [address] * (ABNORMAL) POCT glucose meter (05/05/2021 4:52 PM EST) [facility] POCT Glucose 71(L) 74 - 99 mg/dL [...] for testing. Comment 05/05/2021 4:55 PM EST [facility] [facility] Cane Flume Feeding Machine Operator ID Keeley Womack 05/05/20 4:55 PM EST [facility] Device ID [id number] 05/05/2021 4:55 PM EST [facility] Specimen Type POC Capillary 05/05/2021 4:55 PM EST [facility] Blood Capillary blood specimen / Unknown 05/05/2021 4:52 PM EST 05/05/2021 4:55 PM EST Dory Slade MD LAB POINT OF CARE TEST DOCKED DEVICE UNSOLICITED RESULTS Final Result [facility] [address] [place] [address] * (ABNORMAL) POCT glucose meter (05/05/2021 11:20 AM EST) [facility] POCT Glucose 134(H) 74 - 99 mg/dL 05/05/2021 11:25 AM EST [facility] Comment:Accuracy of a glucos e result [...] for testing. Comment 05/05/2021 11:25 AM EST [facility] Cane Flume Feeding Machine Operator ID Keeley Womack 05/05/20 11:25 AM EST [facility] [facility] Device ID [id number] 05/05/2021 11:25 AM EST [facility] Specimen Type POC Capillary 05/05/2021 11:25 AM EST [facility] Blood Capillary blood specimen / Unknown 05/05/2021 11:20 AM EST 05/05/2021 11:25 AM EST us Dory Slade MD LAB POINT OF CARE TEST DOCKED DEVICE UNSOLICITED RESULTS Final Result Performing Organization Address City/[facility] Co de Phone Number [facility] [address] [place] [address] * (ABNORMAL) POCT glucose meter (05/05/2021 7:38 [...] Comment 05/05/2021 7:40 AM EST [facility] Cane Flume Feeding Machine Operator ID Keeley Womack 05/05/20 7:40 AM EST [facility] Device ID [id number] 05/05/2021 7:40 AM EST [facility] Specimen Type POC Capillary 05/05/2021 7:40 AM EST [facility] Blood Capillary blood specimen / Unknown 05/05/2021 7:38 AM EST 05/05/2021 7:40 AM EST us Dory Slade MD LAB POINT OF CARE TEST DOCKED DEVICE UNSOLICITED RESULTS Final Result Performing Organization Address City/[facility]/ZIP Co de Phone Number [facility] [address] [place] [address] * (ABNORMAL) POCT glucose meter (05/04/2021 10:04 [...] for testing. Comment 05/04/2021 10:10 PM EST [facility] Cane Flume Feeding Machine Operator ID Xenia Hummel 05/04/2021 10:10 PM EST [facility] Device ID [id number] 05/04/2021 10:10 PM EST [facility] Specimen Type POC Capillary 05/04/2021 10:10 PM EST [facility] Blood Capillary blood specimen / Unknown 05/04/2021 10:04 PM EST 05/04/2021 10:10 PM EST Dory Slade MD LAB POINT OF CARE TEST DOCKED DEVICE UNSOLICITED RESULTS Final Result Performing Organization Address City/[facility] Co de Phone Number [facility] [address] [place] [address] * Urinalysis Microscopic Examination (05/04/2021 4:52 PM EST) Urine Urine specimen obtained by clean catch procedure / Unknown Non-blood Collection / Unknown 05/04/2021 4:52 PM EST 05/04/2021 5:02 PM EST Gabby Pratt PULPER TENDER, DNP LAB URINE ORDERABLES Fi nal Result Performing Organization Address City/[facility] Co de Phone Number [facility] [address] [place] [address] * (ABNORMAL) Urinalysis with reflex microscopic (05/04/2021 4:52 PM EST) Color, Urine Yellow LAB URINALYSIS - AUTOMATED METHOD 05/04/2021 5:11 PM EST [facility] Clarity, Urine Clear LAB URINALYSIS - AUTOMATED METHOD 05/04/2021 5:11 PM EST [facility] Spec [place], Urine 1.019 <=1.005 to >=1.030 LAB URINALYSIS - AUTOMATED METHOD 05/04/2021 5:11 PM EST [facility] pH, Urine 6.5 4.5 to 8 LAB URINALYSIS - AUTOMATED METHOD 05/04/2021 5:11 PM EST [facility] Protein, Urine Negative Negative mg/dL LAB URINALYSIS - AUTOMATED METHOD 05/04/2021 5:11 PM EST [facility] Glucose, Urine Negative Negative mg/dL LAB URINALYSIS - AUTOMATED METHOD 05/04/2021 5:11 PM EST [facility] Ketones, Urine Negative Negative mg/dL LAB URINALYSIS - AUTOMATED METHOD 05/04/2021 5:11 PM EST [facility] Blood, Urine Negative Negative LAB URINALYSIS - AUTOMATED METHOD 05/04/2021 5:11 PM EST [facility] Bilirubin, Urine Negative Negative LAB URINALYSIS - AUTOMATED METHOD 05/04/2021 5:11 PM EST [facility] Urobilinogen, Urine 1.0 0.2 to 1.0 mg/dL LAB URINALYSIS - AUTOMATED METHOD 05/04/2021 5:11 PM EST [facility] Leukocytes, Urine Trace(A) Negative LAB URINALYSIS - AUTOMATED METHOD 05/04/2021 5:11 PM EST [facility] Nitrite, Urine Negative Negative LAB URINALYSIS - AUTOMATED METHOD 05/04/2021 5:11 PM EST [facility] RBC, Urine 2 0 to 3 /HPF LAB URINALYSIS - AUTOMATED METHOD 05/04/2021 5:11 PM EST [facility] Comment:This result was prev iously suppressed from the chart. WBC, Urine 0 - 5 0 to 5 /HPF LAB URINALYSIS - AUTOMATED METHOD 05/04/2021 5:11 PM EST [facility] Comment:This result was prev iously suppressed from the chart. Squamous Epithelial Cells 0 - 5 0 to 5 /HPF LAB URINALYSIS - AUTOMATED METHOD 05/04/2021 5:11 PM EST [facility] Comment:This result was prev iously suppressed from the chart. Hyaline Casts 0 - 8 0 to 8 /LPF LAB URINALYSIS - AUTOMATED METHOD 05/04/2021 5:11 PM EST [facility] Comment:This result was prev iously suppressed from the chart. Bacteria, Urine Negative Negative LAB URINALYSIS - AUTOMATED METHOD 05/04/2021 5:11 PM EST [facility] Comment:This result was prev iously suppressed from the chart. Urine Urine specimen obtained by clean catch procedure / Unknown Non-blood Collection / Unknown 05/04/2021 4:52 PM EST 05/04/2021 5:02 PM EST us Gabby Pratt PULPER TENDER, DNP LAB URINE ORDERABLES Fi nal Result Performing Organization Address [facility] Co de Phone Number [facility] [address] [place] [address] * (ABNORMAL) POCT glucose meter (05/04/2021 4:42 PM EST) POCT Glucose 113(H) 74 - 99 mg/dL 05/04/2021 4:45 PM EST [facility] Comment:Accuracy of a glucos e result [...] for testing. Comment 05/04/2021 4:45 PM EST [facility] Cane Flume Feeding Machine Operator ID Tereza Feng 05/04/2021 4:45 PM EST [facility] Device ID [id number] 05/04/2021 4:45 PM EST [facility] Specimen Type POC Capillary 05/04/2021 4:45 PM EST [facility] Blood Capillary blood specimen / Unknown 05/04/2021 4:42 PM EST 05/04/2021 4:45 PM EST Dory Slade MD LAB POINT OF CARE TEST DOCKED DEVICE UNSOLICITED RESULTS Final Result Performing Organization Address [facility] Phone Number [facility] [address] [place] [address] * (ABNORMAL) POCT glucose meter (05/04/2021 11:44 [...] 05/04/2021 11:50 AM EST [facility] Cane Flume Feeding Machine Operator ID Keeley Womack 05/04/20 11:50 AM EST [facility] Device ID [id number] 05/04/2021 11:50 AM EST [facility] Specimen Type POC Capillary 05/04/2021 11:50 AM EST [facility] Blood Capillary blood specimen / Unknown 05/04/2021 11:44 AM EST 05/04/2021 11:50 AM EST Dory Slade MD LAB POINT OF CARE TEST DOCKED DEVICE UNSOLICITED RESULTS Final Result Performing Organization Address City/[facility] Co de Phone Number [facility] [address] [place] [address] * (ABNORMAL) POCT glucose meter (05/04/2021 7:25 AM EST) POCT Glucose 119(H) 74 - 99 mg/dL 05/04/2021 7:30 AM EST [facility] Comment:Accuracy of a glucos e result [...] Comment 05/04/2021 7:30 AM EST [facility] Cane Flume Feeding Machine Operator ID Keeley Womack 05/04/20 7:30 AM EST [facility] Device ID [id number] 05/04/2021 7:30 AM EST [facility] Specimen Type POC Capillary 05/04/2021 7:30 AM EST [facility] Blood Capillary blood specimen / Unknown 05/04/2021 7:25 AM EST 05/04/2021 7:30 AM EST us Dory Slade MD LAB POINT OF CARE TEST DOCKED DEVICE UNSOLICITED RESULTS Final Result Performing Organization Address City/[facility] Co de Phone Number [facility] [address] [place] [address] * Aspartate Aminotransferase, Plasma (05/04/2021 5:50 AM EST) AST, Plasma 21 11 - 32 U/L 05/04/2021 6:35 AM EST [facility] Blood Venous blood specimen / Unknown Venipuncture / Unknown 05/04/2021 5:50 AM EST 05/04/2021 6:01 AM EST us Gabby Pratt APRN, DNP LAB BLOOD ORDERABLES Fi nal Result Performing Organization Address [facility] de Phone Number [facility] [address] [place] [address] * (ABNORMAL) Alanine Aminotransferase, Plasma (05/04/2021 5:50 AM EST) Pathologist [facility] ALT, Plasma 57(H) 8 - 33 U/L 05/04/2021 6:35 AM EST [facility] Blood Venous blood specimen / Unknown Venipuncture / Unknown 05/04/2021 5:50 AM EST 05/04/2021 6:01 AM EST us Gabby Pratt APRN, [facility] LAB BLOOD ORDERABLES Fi nal Result Performing Organization Address [facility] Phone Number [facility] [address] [place] [address] * POCT glucose meter (05/03/2021 8:17 PM EST) [facility] POCT Glucose 92 74 - 99 mg/dL 05/03/2021 8:20 PM EST [facility] Comment:Accuracy of a glucos e result [...] 05/03/2021 8:20 PM EST [facility] Cane Flume Feeding Machine Operator ID Irene Cantor 05/03/2021 8:20 PM EST [facility] Device ID [id number] 05/03/2021 8:20 PM EST [facility] Specimen Type POC Capillary 05/03/2021 8:20 PM EST [facility] Blood Capillary blood specimen / Unknown 05/03/2021 8:17 PM EST 05/03/2021 8:20 PM EST Dory Slade MD LAB POINT OF CARE TEST DOCKED DEVICE UNSOLICITED RESULTS Final Result Performing Organization Address [facility] de Phone Number [facility] [address] [place] [address] * (ABNORMAL) POCT glucose meter (05/03/2021 5:35 [...] for testing. Comment 05/03/2021 5:40 PM EST [facility] Cane Flume Feeding Machine Operator ID Dahlia Velasco 05/03/2021 5:40 PM EST [facility] Device ID [id number] 05/03/2021 5:40 PM EST [facility] Specimen Type POC Capillary 05/03/2021 5:40 PM EST [facility] Blood Capillary blood specimen / Unknown 05/03/2021 5:35 PM EST 05/03/2021 5:40 PM EST Dory Slade MD LAB POINT OF CARE TEST DOCKED DEVICE UNSOLICITED RESULTS Final Result Performing Organization Address [facility] de Phone Number [facility] [address] [place] [address] * POCT glucose meter (05/03/2021 12:14 PM [...] Comment 05/03/2021 12:15 PM EST [facility] Cane Flume Feeding Machine Operator ID Keeley Womack 05/03/20 12:15 PM EST [facility] Device ID [id number] 05/03/2021 12:15 PM EST [facility] Specimen Type POC Capillary 05/03/2021 12:15 PM EST [facility] Blood Capillary blood specimen / Unknown 05/03/2021 12:14 PM EST 05/03/2021 12:15 PM EST us Dory Slade MD LAB POINT OF CARE TEST DOCKED DEVICE UNSOLICITED RESULTS Final Result Performing Organization Address City/[facility]/ZIP Co de Phone Number [facility] [address] [place] [address] * POCT glucose meter (05/03/2021 8:08 AM [...] Comment 05/03/2021 8:10 AM EST [facility] Cane Flume Feeding Machine Operator ID Keeley Womack 05/03/20 8:10 AM EST [facility] Device ID [id number] 05/03/2021 8:10 AM EST [facility] Specimen Type POC Capillary 05/03/2021 8:10 AM EST [facility] Blood Capillary blood specimen / Unknown 05/03/2021 8:08 AM EST 05/03/2021 8:10 AM EST us Dory Slade MD LAB POINT OF CARE TEST DOCKED DEVICE UNSOLICITED RESULTS Final Result [facility] [address] [place] [address] * POCT glucose meter (05/03/2021 6:07 AM [...] Comment 05/03/2021 6:10 AM EST [facility] Cane Flume Feeding Machine Operator ID Shaquille Mak 05/03/2021 6:10 AM EST [facility] Device ID [id number] 05/03/2021 6:10 AM EST [facility] Specimen Type POC Capillary 05/03/2021 6:10 AM EST [facility] Blood Capillary blood specimen / Unknown 05/03/2021 6:07 AM EST 05/03/2021 6:10 AM EST Dory Slade MD LAB POINT OF CARE TEST DOCKED DEVICE UNSOLICITED RESULTS Final Result Performing Organization Address City/State/[facility] Co de Phone Number [facility] [address] [place] [address] * (ABNORMAL) POCT glucose meter (05/02/2021 9:15 [...] 05/02/2021 9:20 PM EST [facility] Cane [employer]ume Feeding Machine Operator ID Shana Bean 05/02/2021 9:20 PM EST [facility] Device ID [id number] 05/02/2021 9:20 PM EST [facility] Specimen Type POC Capillary 05/02/2021 9:20 PM EST [facility] Blood Capillary blood specimen / Unknown 05/02/2021 9:15 PM EST 05/02/2021 9:20 PM EST Dory Slade MD LAB POINT OF CARE TEST DOCKED DEVICE UNSOLICITED RESULTS Final Result Performing Organization Address City/[facility] de Phone Number [facility] [address] [place] [address] * (ABNORMAL) POCT glucose meter (05/02/2021 3:20 [...] for testing. Comment 05/02/2021 3:25 PM EST [facility] Cane Flume Feeding Machine Operator ID Betty Coronado 05/02/2021 3:25 PM EST [facility] Device ID [id number] 05/02/2021 3:25 PM EST [facility] Specimen Type POC Capillary 05/02/2021 3:25 PM EST [facility] Blood Capillary blood specimen / Unknown 05/02/2021 3:20 PM EST 05/02/2021 3:25 PM EST Dory Slade MD LAB POINT OF CARE TEST DOCKED DEVICE UNSOLICITED RESULTS Final Result Performing Organization Address City/[facility] Co de Phone Number [facility] [address] [place] [address] * (ABNORMAL) POCT glucose meter (05/02/2021 11:26 [...] Comment 05/02/2021 11:45 AM EST [facility] Cane Flume Feeding Machine Operator ID Betty Coronado 05/02/2021 11:45 AM EST [facility] Device ID [id number] 05/02/2021 11:45 AM EST [facility] Specimen Type POC Capillary 05/02/2021 11:45 AM EST [facility] Blood Capillary blood specimen / Unknown 05/02/2021 11:26 AM EST 05/02/2021 11:45 AM EST us Dory Slade MD LAB POINT OF CARE TEST DOCKED DEVICE UNSOLICITED RESULTS Final Result Performing Organization Address City/[facility]/ZIP Co de Phone Number [facility] [address] [place] [address] * (ABNORMAL) POCT glucose meter (05/02/2021 8:08 AM EST) [facility] POCT Glucose 118(H) 74 - 99 mg/dL 05/02/2021 8:15 AM EST [facility] Comment:Accuracy of a glucos e result [...] Comment 05/02/2021 8:15 AM EST [facility] Cane Flume Feeding Machine Operator ID Betty Coronado 05/02/2021 8:15 AM EST [facility] Device ID [id number] 05/02/2021 8:15 AM EST [facility] Specimen Type POC Capillary 05/02/2021 8:15 AM EST [facility] Blood Capillary blood specimen / Unknown 05/02/2021 8:08 AM EST 05/02/2021 8:15 AM EST us Ji Atkins MD LAB POINT OF CARE TE ST DOCKED DEVICE UNSOLICITED RESULTS Final Result Performing Organization Address City/[facility]/ZIP Co de Phone Number [facility] [address] [place] [address] * (ABNORMAL) Alanine Aminotransferase, Plasma (05/02/2021 3:59 AM EST) ALT, Plasma 152(H) 8 - 33 U/L 05/02/2021 12:38 PM EST [facility] Blood Venous blood specimen / Unknown Venipuncture / Unknown 05/02/2021 3:59 AM EST 05/02/2021 4:21 AM EST us Gabby Pratt APRN, DNP LAB BLOOD ORDERABLES Fi nal Result Performing Organization Address [facility] de Phone Number [facility] [address] [place] [address] * (ABNORMAL) Aspartate Aminotransferase, Plasma (05/02/2021 3:59 AM EST) AST, Plasma 117(H) 11 - 32 U/L 05/02/2021 12:38 PM EST [facility] Blood Venous blood specimen / Unknown Venipuncture / Unknown 05/02/2021 3:59 AM EST 05/02/2021 4:21 AM EST us Gabby Pratt APRN, DNP LAB BLOOD ORDERABLES Fi nal Result Performing Organization Address [facility] Phone Number [facility] [address] [place] [address] * (ABNORMAL) Basic metabolic panel (05/02/2021 3:59 AM EST) Glucose, Plasma 130(H) 74 - 99 mg/dL 05/02/2021 4:50 AM EST [facility] BUN, Plasma 13 7 - 21 mg/dL 05/02/2021 4:50 AM EST [facility] Creatinine, Plasma 0.81 0.60 - 1.10 mg/dL 05/02/2021 4:50 AM EST [facility] BUN/Creatinine Ratio 16 05/02/2021 4:50 AM EST [facility] Sodium, Plasma 139 136 - 145 mmol/L 05/02/2021 4:50 AM EST [facility] Potassium, Plasma 4.3 3.7 - 4.8 mmol/L 05/02/2021 4:50 AM EST [facility] Chloride, Plasma 103 97 - 107 mmol/L 05/02/2021 4:50 AM EST [facility] CO2, Plasma 27 22 - 29 mmol/L 05/02/2021 4:50 AM EST [facility] Anion Gap 9 6 - 16 mmol/L 05/02/2021 4:50 AM EST [facility] Total Calcium, Plasma 8.7(L) 8.9 - 10.2 mg/dL 05/02/2021 4:50 AM EST [facility] eGFR >60 >60 mL/min/1.7 3m*2 05/02/2021 4:50 AM EST [facility] Comment:eGFR = estimated GFR ; eGFR [...] >60 mL/min/1.7 3m*2 05/02/2021 4:50 AM EST [facility] Comment:eGFR = estimated GFR ; eGFR [...] RN LAB BLOOD ORDERABLES Final Resul t [facility] [address] [place] [address] * (ABNORMAL) CBC W/O Differential (05/02/2021 3:59 AM EST) WBC Count 9.98 3.70 - 10.30 10*3/uL LAB HEMATOLOGY METHOD 05/02/2021 4:48 AM EST [facility] RBC Count 3.26(L) 3.90 - 5.20 10*6/uL LAB HEMATOLOGY METHOD 05/02/2021 4:48 AM EST [facility] HGB 10.1(L) 11.2 - 15.7 g/dL LAB HEMATOLOGY METHOD 05/02/2021 4:48 AM EST [facility] HCT 31.5(L) 34.0 - 45.0 % LAB HEMATOLOGY METHOD 05/02/2021 4:48 AM EST [facility] Platelet Count 243 155 - 369 10*3/uL LAB HEMATOLOGY METHOD 05/02/2021 4:48 AM EST [facility] MCV 97 79 - 98 fL LAB HEMATOLOGY METHOD 05/02/2021 4:48 AM EST [facility] MCH 31.0 26.0 - 32.0 pg LAB HEMATOLOGY METHOD 05/02/2021 4:48 AM EST [facility] MCHC 32.1 30.7 - 35.5 g/dL LAB HEMATOLOGY METHOD 05/02/2021 4:48 AM EST [facility] RDW 13.5 11.5 - 14.5 % LAB HEMATOLOGY METHOD 05/02/2021 4:48 AM EST [facility] MPV 11.1 8.8 - 12.5 fL LAB HEMATOLOGY METHOD 05/02/2021 4:48 AM EST [facility] nRBC 0.0 <=0.0 per 100 WBCs LAB HEMATOLOGY METHOD 05/02/2021 4:48 AM [facility] Blood Venous blood specimen / Unknown Venipuncture / Unknown 05/02/2021 3:59 AM EST 05/02/2021 4:25 AM EST us Ava Joseph RN LAB BLOOD ORDERABLES Final Resul t Performing Organization Address City/State/[facility] Co de Phone Number [facility] [address] [place] [address] * (ABNORMAL) POCT glucose meter (05/01/2021 9:11 PM EST) POCT Glucose 141(H) 74 - 99 mg/dL 05/01/2021 9:15 PM EST [facility] Comment:Accuracy of a glucos e result [...] Comment 05/01/2021 9:15 PM EST [facility] C[employer] Feeding Machine Operator ID Kyra Locwkood 05/01/2021 9:15 PM EST [facility] Device ID [id number] 05/01/2021 9:15 PM EST [facility] Specimen Type POC Capillary 05/01/2021 9:15 PM EST [facility] Blood Capillary blood specimen / Unknown 05/01/2021 9:11 PM EST 05/01/2021 9:15 PM EST us Ji Atkins MD LAB POINT OF CARE TE ST DOCKED DEVICE UNSOLICITED RESULTS Final Result Performing Organization Address City/State/[facility] Co de Phone Number [facility] [address] [place] [address] * XR Femur Left 2+ Views (05/01/2021 [...] LEFT 2+ VIEWS ordered by JI ATKINS [id number] CLINICAL INDICATION: post op TECHNIQUE: XR FEMUR [...] FEMUR LEFT 2+ VIEWS ordered by JI [id number] CLINICAL INDICATION: post op TECHNIQUE: XR FEMUR [...] for testing. Comment 05/01/2021 3:55 PM EST Code [facility] Cane Flume Feeding Machine Operator ID Tresa Jones [id number] 3:55 PM EST Code [facility] Device ID [id number] 05/01/2021 3:55 PM EST Code [facility] Specimen Type POC Capillary 05/01/2021 3:55 PM EST Code [facility] Blood Capillary blood specimen / Unknown 05/01/2021 3:53 PM EST 05/01/2021 3:55 PM EST Ji Atkins MD LAB POINT OF CARE TE ST DOCKED DEVICE UNSOLICITED RESULTS Final Result Performing Organization Address City/[facility] Co de Phone Number [facility] [address] [place] [address] * [place] Less than 1 Hour Intraoperative (05/01/2021 3:26 PM EST) Narrative IMAGING - 05/01/2021 3:26 PM EST Images were obtained for surgical purposes. ??See Bebeto Flynn's surgical note in the the patient's chart for the findings. Bebeto Flynn MD IMG FLUOROSCOPY PROCEDURES Porsche l Result IMAGING * Hemoglobin A1c (05/01/2021 2:21 AM EST) Hemoglobin A1c 5.5 <5.7 % 05/01/2021 12:36 PM EST [facility] Blood Venous blood specimen / Unknown Venipuncture / Unknown 05/01/2021 2:21 AM EST 05/01/2021 2:26 AM EST Narrative [facility] - 05/01/2021 12:36 PM EST HA1C Interpretive Data: Diagnosis of Diabetes: Diabetic > or = 6.5% Pre-diabetic 5.7 to 6.4% Non-diabetic < or = 5.6% Glycemic Targets for Type I and Type II Diabetics: Non- Adults <7.0% Adults <6.0% Children and Adolescents <7.5% Source: ??[place] [employer]. Standards of medical care in diabetes,2017. Diabetes Care.2017:40 (suppl 1):S1-S135. HbA1c assay performed by an ion-exchange chromatography method that is certified traceable to the DCCT. Ji Atkins MD LAB BLOOD ORDERABLES Final Re sult [facility] [address] [place] [address] * Protime-INR (05/01/2021 2:21 AM EST) Prothrombin Time 13.0 12.0 - 14.3 sec LAB COAGULATION METHOD 05/01/2021 2:59 AM EST [facility] INR 1.0 0.9 - 1.1 LAB COAGULATION METHOD 05/01/2021 2:59 AM EST Code [facility] Blood Venous blood specimen / Unknown Venipuncture / Unknown 05/01/2021 2:21 AM EST 05/01/2021 2:26 AM EST Narrative [facility] - 05/01/2021 2:59 AM EST OPTIMAL INR RANGES FOR PATIENT ON ORAL ANTICOAGULANT THERAPY Prevention of venous thromboembolism ?INR 2.0 to 3.0 In patients with heart disease: Atrial fibrillation ?INR 2.0 to 3.0 Valvular heart disease ? INR 2.0 to 3.0 Tissue heart valves ?INR 2.0 to 3.0 Mechanical prosthetic valves ? INR 2.5 to 3.5 Prevention of recurrent UT ? INR 2.5 to 3.5 Ji Atkins MD LAB BLOOD ORDERABLES Final Re sult Performing Organization Address [facility] de Phone Number [facility] [address] [place] [address] * Phosphorus (05/01/2021 2:21 AM EST) Phosphorus, Plasma 3.8 2.5 - 4.5 mg/dL 05/01/2021 2:56 AM EST [facility] Blood Venous blood specimen / Unknown Venipuncture / Unknown 05/01/2021 2:21 AM EST 05/01/2021 2:27 AM EST Ji Atkins MD LAB BLOOD ORDERABLES Final Re sult Performing Organization Address [facility] de Phone Number [facility] [address] [place] [address] * (ABNORMAL) Magnesium (05/01/2021 2:21 AM EST) Magnesium, Plasma 1.8(L) 1.9 - 2.4 mg/dL 05/01/2021 2:56 AM EST [facility] Blood Venous blood specimen / Unknown Venipuncture / Unknown 05/01/2021 2:21 AM EST 05/01/2021 2:27 AM EST Ji Atkins MD LAB BLOOD ORDERABLES Final Re sult Performing Organization Address [facility] de Phone Number [facility] [address] [place] [address] * (ABNORMAL) CBC (05/01/2021 2:21 AM EST) WBC Count 10.61(H) 3.70 - 10.30 10*3/uL LAB HEMATOLOGY METHOD 05/01/2021 2:34 AM EST [facility] RBC Count 4.03 3.90 - 5.20 10*6/uL LAB HEMATOLOGY METHOD 05/01/2021 2:34 AM EST [facility] HGB 12.1 11.2 - 15.7 g/dL LAB HEMATOLOGY METHOD 05/01/2021 2:34 AM EST [facility] HCT 37.9 34.0 - 45.0 % LAB HEMATOLOGY METHOD 05/01/2021 2:34 AM EST [facility] Platelet Count 289 155 - 369 10*3/uL LAB HEMATOLOGY METHOD 05/01/2021 2:34 AM EST [facility] MCV 94 79 - 98 fL LAB HEMATOLOGY METHOD 05/01/2021 2:34 AM EST [facility] MCH 30.0 26.0 - 32.0 pg LAB HEMATOLOGY METHOD 05/01/2021 2:34 AM EST [facility] MCHC 31.9 30.7 - 35.5 g/dL LAB HEMATOLOGY METHOD 05/01/2021 2:34 AM EST [facility] RDW 13.6 11.5 - 14.5 % LAB HEMATOLOGY METHOD 05/01/2021 2:34 AM EST [facility] MPV 10.3 8.8 - 12.5 fL LAB HEMATOLOGY METHOD 05/01/2021 2:34 AM EST [facility] nRBC 0.0 <=0.0 per 100 WBCs LAB HEMATOLOGY METHOD 05/01/2021 2:34 AM EST [facility] Blood Venous blood specimen / Unknown Venipuncture / Unknown 05/01/2021 2:21 AM EST 05/01/2021 2:26 AM EST us Ji Atkins MD LAB BLOOD ORDERABLES Final Re sult [facility] [address] [place] [address] * (ABNORMAL) Basic Metabolic Panel (05/01/2021 2:21 AM EST) Glucose, Plasma 137(H) 74 - 99 mg/dL 05/01/2021 2:56 AM EST [facility] BUN, Plasma 20 7 - 21 mg/dL 05/01/2021 2:56 AM EST [facility] Creatinine, Plasma 0.85 0.60 - 1.10 mg/dL 05/01/2021 2:56 AM EST [facility] BUN/Creatinine Ratio 24 05/01/2021 2:56 AM EST [facility] Sodium, Plasma 140 136 - 145 mmol/L 05/01/2021 2:56 AM EST [facility] Potassium, Plasma 4.3 3.7 - 4.8 mmol/L 05/01/2021 2:56 AM EST [facility] Chloride, Plasma 105 97 - 107 mmol/L 05/01/2021 2:56 AM EST [facility] CO2, Plasma 23 22 - 29 mmol/L 05/01/2021 2:56 AM EST [facility] Anion Gap 12 6 - 16 mmol/L 05/01/2021 2:56 AM EST [facility] Total Calcium, Plasma 8.7(L) 8.9 - 10.2 mg/dL 05/01/2021 2:56 AM EST [facility] eGFR >60 >60 mL/min/1.7 3m*2 05/01/2021 2:56 AM EST [facility] Comment:eGFR = estimated GFR ; eGFR [...] >60 mL/min/1.7 3m*2 05/01/2021 2:56 AM EST [facility] Comment:eGFR = estimated GFR ; eGFR [...] MD LAB BLOOD ORDERABLES Final Re sult [facility] [address] [place] [address] * (ABNORMAL) POCT glucose meter (04/30/2021 11:44 [...] Comment 04/30/2021 11:50 PM EST [facility] Cane Flume Feeding Machine Operator ID Cassie Ford 04/30/2021 11:50 PM EST [facility]ARE [facility] Device ID [id number] 04/30/2021 11:50 PM EST [facility] Specimen Type POC Capillary 04/30/2021 11:50 PM EST [facility] Blood Capillary blood specimen / Unknown 04/30/2021 11:44 PM EST 04/30/2021 11:50 PM EST Ji Atkins MD LAB POINT OF CARE TE ST DOCKED DEVICE UNSOLICITED RESULTS Final Result [facility] [address] [place] [address] * Lactate, venous (04/30/2021 8:26 PM EST) Pathologist [facility] Lactate, Venous, Whole Blood 0.9 0.5 - 2.2 mmol/L LAB HEMATOLOGY METHOD 04/30/2021 8:32 PM EST [facility] Blood Venous blood specimen / Unknown Venipuncture / Unknown 04/30/2021 8:26 PM EST 04/30/2021 8:30 PM EST Clay Lugo MD LAB BLOOD ORDERABLES Final Resul t [facility] [address] [place] [address] * CT Head wo IV Contrast (04/30/2021 [...] error, please notify the sender immediately at [phone] and permanently delete the original report and destroy any copies or printouts. Narrative 04/30/2021 5:12 PM EST [facility] ? - Phone [facility] NAME: Ambika Moscoso ?? DATE OF EXAM: 04/30/2021 Patient No: ??[id number] Physician: ??Carlo^Ji Date of : ??1965 Past [...] Soft Tissues: Mild left parietal scalp contusion. ??[place] lens replacements. Skull: There are no calvarial destructive lesions or fractures. Sinuses and Mastoids: No significant paranasal sinus disease. ??Minimal mucosal thickening in the left sphenoid sinus. ??The mastoid air cells are clear. Procedure Note Wes Biswas MD - 04/30/2021 [facility] - Phone [facility] NAME: Ambika Moscoso DATE OF EXAM: 04/30/2021 Patient No: [id number] Physician: Palmer Date of : 1965 Past [...] Soft Tissues: Mild left parietal scalp contusion. [place] lensreplacements. Skull: There are no calvarial destructive [...] in error, pleasenotify the sender immediately at [phone] and permanently delete theoriginal report and destroy [...] WO IV CONTRAST ordered by CLAY LUGO, [id number] CLINICAL INDICATION: Fracture, knee TECHNIQUE: ?? Multiple [...] LEFT WO IV CONTRAST ordered by CLAY LUGO,[id number] CLINICAL INDICATION: Fracture, knee TECHNIQUE: Multiple axial [...] Comment 04/30/2021 4:20 PM EST [facility] Cane Flume Feeding Machine Operator ID Enoch Baptiste 04/30/2021 4:20 PM EST [facility] Device ID [id number] 04/30/2021 4:20 PM EST [facility] Specimen Type POC Capillary 04/30/2021 4:20 PM EST [facility] Blood Capillary blood specimen / Unknown 04/30/2021 4:15 PM EST 04/30/2021 4:20 PM EST Ji Atkins MD LAB POINT OF CARE TE ST DOCKED DEVICE UNSOLICITED RESULTS Final Result Performing Organization Address City/[facility]/ZIP Co de Phone Number [facility] [address] [place] [address] * (ABNORMAL) Lactate, venous (04/30/2021 3:36 PM EST) Pathologist [facility] Lactate, Venous, Whole Blood 2.7(H) 0.5 - 2.2 mmol/L LAB HEMATOLOGY METHOD 04/30/2021 3:42 PM EST [facility] Blood Venous blood specimen / Unknown Venipuncture / Unknown 04/30/2021 3:36 PM EST 04/30/2021 3:41 PM EST us Clay Lugo MD LAB BLOOD ORDERABLES Final Resul t Performing Organization Address City/[facility]/ZIP Co de Phone Number [facility] [address] [place] [address] * XR Pelvis 1 or 2 Views (04/30/2021 3:29 PM EST) Anatomical Region Laterality Modality Body, Pelvis Digital Radiogra phy Impressions 04/30/2021 3:39 PM EST No acute osseous findings CRITICAL RESULT: ?? No. COMMUNICATION: Per this written report. Signed by Rosanna Deng on ??04/30/2021 3:39 PM Narrative 04/30/2021 3:39 PM EST Exam/Procedure: XR PELVIS 1 OR 2 VIEWS ordered by CLAY LUGO, [id number] CLINICAL INDICATION: femur fracture, needs AP pelvis TECHNIQUE: XR PELVIS 1 OR 2 VIEWS COMPARISON: None. FINDINGS: No acute fracture or malalignment. Procedure Note Rosanna Deng MD - 04/30/2021 Exam/Procedure: XR PELVIS 1 OR 2 VIEWS ordered by CLAY LUGO, [id number] CLINICAL INDICATION: femur fracture, needs AP pelvis [...] recommendations. This test was performed using the [employer] Alinity m SARS CoV-2 assay, a PCR-based [...] MICROBIOLOGY - GENERAL ORD ERABLES Final Result [facility] [address] [place] [address] * XR Chest 1 View (04/30/2021 2:59 PM EST) Anatomical Region Laterality Modality Chest Digital Radiogra phy Impressions 04/30/2021 3:01 PM EST No acute findings CRITICAL RESULT: ?? No. COMMUNICATION: Per this written report. Signed by Rosanna Deng on ??04/30/2021 3:01 PM Narrative 04/30/2021 3:01 PM EST Exam/Procedure: XR CHEST 1 VIEW ordered by SAMSON NGUYEN, [id number] CLINICAL INDICATION: preop TECHNIQUE: XR CHEST 1 VIEW COMPARISON: None. FINDINGS: Lungs are clear without evidence of focal consolidation or parenchymal opacities. No evidence of a pleural effusion or pneumothorax. Cardiac and mediastinal silhouette are within normal limits. No acute osseous abnormalities. Procedure Note Rosanna Deng MD - 04/30/2021 Exam/Procedure: XR CHEST 1 VIEW ordered by SAMSON NGUYEN, [id number] CLINICAL INDICATION: preop TECHNIQUE: XR CHEST 1 [...] EST 04/30/2021 2:31 PM EST us Samson Ngyuen MD LAB BLOOD BANK TEST ORDERABLES Final Result BLOOD BANK [address] [place] [address], * (ABNORMAL) CBC w/diff (04/30/2021 2:20 PM EST) WBC Count 14.68(H) 3.70 - 10.30 10*3/uL LAB HEMATOLOGY METHOD 04/30/2021 2:31 PM EST [facility] RBC Count 4.33 3.90 - 5.20 10*6/uL LAB HEMATOLOGY METHOD 04/30/2021 2:31 PM EST [facility] HGB 13.5 11.2 - 15.7 g/dL LAB HEMATOLOGY METHOD 04/30/2021 2:31 PM EST [facility] HCT 40.3 34.0 - 45.0 % LAB HEMATOLOGY METHOD 04/30/2021 2:31 PM EST [facility] Platelet Count 326 155 - 369 10*3/uL LAB HEMATOLOGY METHOD 04/30/2021 2:31 PM EST [facility] MCV 93 79 - 98 fL LAB HEMATOLOGY METHOD 04/30/2021 2:31 PM EST [facility] MCH 31.2 26.0 - 32.0 pg LAB HEMATOLOGY METHOD 04/30/2021 2:31 PM EST [facility] MCHC 33.5 30.7 - 35.5 g/dL LAB HEMATOLOGY METHOD 04/30/2021 2:31 PM EST [facility] RDW 13.5 11.5 - 14.5 % LAB HEMATOLOGY METHOD 04/30/2021 2:31 PM EST [facility] MPV 10.7 8.8 - 12.5 fL LAB HEMATOLOGY METHOD 04/30/2021 2:31 PM EST [facility] nRBC 0.0 <=0.0 per 100 WBCs LAB HEMATOLOGY METHOD 04/30/2021 2:31 PM EST [facility] Differential Type Automated LAB HEMATOLOGY METHOD 04/30/2021 2:31 PM EST [facility] Neutrophils % 78.0 % LAB HEMATOLOGY METHOD 04/30/2021 2:31 PM EST [facility] Lymphocytes % 16.0 % LAB HEMATOLOGY METHOD 04/30/2021 2:31 PM EST [facility] Monocytes % 6.0 % LAB HEMATOLOGY METHOD 04/30/2021 2:31 PM EST [facility] Eosinophils % 0.0 % LAB HEMATOLOGY METHOD 04/30/2021 2:31 PM EST [facility] Basophils % 0.0 % LAB HEMATOLOGY METHOD 04/30/2021 2:31 PM EST [facility] Immature Granulocytes % 0.0 % LAB HEMATOLOGY METHOD 04/30/2021 2:31 PM EST [facility] Neutrophils Absolute 11.34(H) 1.60 - 6.10 10*3/uL LAB HEMATOLOGY METHOD 04/30/2021 2:31 PM EST [facility] Lymphocytes Absolute 2.28 1.20 - 3.90 10*3/uL LAB HEMATOLOGY METHOD 04/30/2021 2:31 PM EST [facility] Monocytes Absolute 0.91(H) 0.30 - 0.90 10*3/uL LAB HEMATOLOGY METHOD 04/30/2021 2:31 PM EST [facility] Eosinophils Absolute 0.03 0.00 - 0.50 10*3/uL LAB HEMATOLOGY METHOD 04/30/2021 2:31 PM EST [facility] Basophils Absolute 0.06 0.00 - 0.10 10*3/uL LAB HEMATOLOGY METHOD 04/30/2021 2:31 PM EST [facility] Immature Granulocytes Absolute 0.06 0.00 - 0.06 10*3/uL LAB HEMATOLOGY METHOD 04/30/2021 2:31 PM EST [facility] Blood Venous blood specimen / Unknown Venipuncture / Unknown 04/30/2021 2:20 PM EST 04/30/2021 2:25 PM EST [facility] - 04/30/2021 2:31 PM EST Therapeutic decision making should be based on absolute values, rather than percentages. us Samson Nguyen MD LAB BLOOD ORDERABLES Final Res ult [facility] [address] [place] [address] * (ABNORMAL) CMP (04/30/2021 2:19 PM EST) Glucose, Plasma 142(H) 74 - 99 mg/dL 04/30/2021 2:54 PM EST [facility] BUN, Plasma 23(H) 7 - 21 mg/dL 04/30/2021 2:54 PM EST [facility] Creatinine, Plasma 0.87 0.60 - 1.10 mg/dL 04/30/2021 2:54 PM EST [facility] BUN/Creatinine Ratio 26 04/30/2021 2:54 PM EST [facility] Sodium, Plasma 142 136 - 145 mmol/L 04/30/2021 2:54 PM EST [facility] Potassium, Plasma 4.2 3.7 - 4.8 mmol/L 04/30/2021 2:54 PM EST [facility] Chloride, Plasma 108(H) 97 - 107 mmol/L 04/30/2021 2:54 PM EST [facility] CO2, Plasma 19(L) 22 - 29 mmol/L 04/30/2021 2:54 PM EST [facility] Anion Gap 15 6 - 16 mmol/L 04/30/2021 2:54 PM EST [facility] Total Calcium, Plasma 9.1 8.9 - 10.2 mg/dL 04/30/2021 2:54 PM EST [facility] Total Protein 7.0 6.3 - 7.9 g/dL 04/30/2021 2:54 PM EST [facility] Albumin, Plasma 4.1 3.5 - 5.2 g/dL 04/30/2021 2:54 PM EST [facility] AST, Plasma 162(H) 11 - 32 U/L 04/30/2021 2:54 PM EST [facility] ALT, Plasma 73(H) 8 - 33 U/L 04/30/2021 2:54 PM EST [facility] Alkaline Phosphatase, Plasma 138 46 - 142 U/L 04/30/2021 2:54 PM EST [facility] Total Bilirubin, Plasma 0.6 0.2 - 1.1 mg/dL 04/30/2021 2:54 PM EST [facility] eGFR >60 >60 mL/min/1.7 3m*2 04/30/2021 2:54 PM EST [facility] Comment:eGFR = estimated GFR ; eGFR [...] >60 mL/min/1.7 3m*2 04/30/2021 2:54 PM EST [facility] Comment:eGFR = estimated GFR ; eGFR [...] [facility] Co de Phone Number [facility] [address] [place] [address] * PT-INR (04/30/2021 2:19 PM EST) Prothrombin Time 12.4 12.0 - 14.3 sec LAB COAGULATION METHOD 04/30/2021 2:57 PM EST [facility] INR 1.0 0.9 - 1.1 LAB COAGULATION METHOD 04/30/2021 2:57 PM EST [facility] Blood Venous blood specimen / Unknown Venipuncture / Unknown 04/30/2021 2:19 PM EST 04/30/2021 2:25 PM EST Narrative Code [facility] - 04/30/2021 2:57 PM EST OPTIMAL INR RANGES FOR PATIENT ON ORAL ANTICOAGULANT THERAPY Prevention of venous thromboembolism ?INR 2.0 to 3.0 In patients with heart disease: Atrial fibrillation ?INR 2.0 to 3.0 Valvular heart disease ? INR 2.0 to 3.0 Tissue heart valves ?INR 2.0 to 3.0 Mechanical prosthetic valves ? INR 2.5 to 3.5 Prevention of recurrent UT ? INR 2.5 to 3.5 us Samson Nguyen MD LAB BLOOD ORDERABLES Final Res ult Performing Organization Address [facility] de Phone Number HEALTHCARE LAB [address] [place] [address] * EKG now - STAT (adult) (04/30/2021 2:08 PM EST) EKG DIAGNOSIS CLASS Normal MUSE ECG Ventricular Rate 87 BPM MUSE ECG Atrial Rate 87 BPM MUSE ECG LA Interval 120 ms MUSE ECG QRSD Interval 76 ms MUSE ECG QT Interval 374 ms MUSE ECG QTC Interval 450 ms MUSE ECG P [place] 48 degrees MUSE ECG R [place] 40 degrees MUSE ECG T Wave [place] 74 degrees MUSE ECG Diagnosis Poor data quality MUSE ECG Diagnosis Confirmed by Garcia Leonard ([id number]) on 05/01/2021 11:23:11 AM MUSE ECG 04/30/2021 2:08 PM EST 05/01/2021 11:23 AM EST us Samson Nguyen MD ECG ORDERABLES Final Result Performing Organization Address [facility] de Phone Number MUSE ECG * [...] LEFT 2+ VIEWS ordered by SAMSON NGUYEN [id number] CLINICAL INDICATION: fall, pain TECHNIQUE: XR TIBIA [...] FIBULA LEFT 2+ VIEWS ordered by SAMSON [id number] CLINICAL INDICATION: fall, pain TECHNIQUE: XR TIBIA [...] LEFT 2+ VIEWS ordered by SAMSON NGUYEN, [id number] CLINICAL INDICATION: fall, pain TECHNIQUE: XR TIBIA [...] FIBULA LEFT 2+ VIEWS ordered by SAMSON NGUYEN,[id number] CLINICAL INDICATION: fall, pain TECHNIQUE: XR TIBIA [...] LEFT 2+ VIEWS ordered by SAMSON NGUYEN, [id number] CLINICAL INDICATION: fall, pain TECHNIQUE: XR TIBIA [...] FIBULA LEFT 2+ VIEWS ordered by SAMSON NGUYEN,[id number] CLINICAL INDICATION: fall, pain TECHNIQUE: XR TIBIA [...] LEFT 2+ VIEWS ordered by SAMSON NGUYEN, [id number] CLINICAL INDICATION: fall, pain TECHNIQUE: XR TIBIA [...] FIBULA LEFT 2+ VIEWS ordered by SAMSON NGUYEN,[id number] CLINICAL INDICATION: fall, pain TECHNIQUE: XR TIBIA [...] left femur, unspecified fracture morphology, initial encounter ([facility]) Closed fracture of left distal femur ([facility]) Fall Unspecified fall Diabetes ([facility]) Type II or unspecified type diabetes mellitus without mention of complication, not stated as uncontrolled Elevated LFTs Other abnormal blood chemistry Lactic acidosis Acidosis HTN (hypertension) Unspecified essential hypertension Obesity Obesity, unspecified Fibromyalgia Unspecified myalgia and myositis Closed fracture of distal end of left femur, unspecified fracture morphology, initial encounter ([facility]) documented in this encounter Administered Medications Inactive [...] 9:45 AM EST 1 tablet nystatin (Mycostatin) [id number] UNIT/GM powder 1 application Topical, 2 times [...] - Provider: Jennifer Bernard, DIANE) nystatin (Mycostatin) [id number] UNIT/GM powder 1 application Topical, 2 times [...] care documented in this encounter 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
[2024-04-06 23:41] VITALS: BP 121/89; PULSE 76; RESP 20; TEMP 36.1; O2SAT 98
[2024-04-07] VITALS: BP 169/90; PULSE 78; RESP 20; TEMP 36.1; O2SAT 97; BMI 46.4
--- NOTE | 2024-04-07 00:26 | EXP.HP ---
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 Her lab work remained basically normal some hypokalemia I indication of urinary tract infection. But patient's vital signs were stable. Patient was treated for pain to be set up for an outpatient evaluation by general surgery if the pain did not resolve. She has return for the third time to the emergency room due to her pain being uncontrolled. Patient denies any recent COVID infection, did have COVID in May. COVID has been tied to some omentum and infarction. I have spoken with the ER physician gone over all the readings of scans and lab. And noting that the patient is quite uncomfortable on the ER stretcher. So the patient will be admitted and will be evaluated by general surgery in the morning. Consult has been placed. The patient has noted that she has had abdominal pain off and on for the last year sometimes it is gone for many weeks and it will just start for no reason. But over the last 3 days it has come and been worse than it has been in the past. She was seen in the emergency room and prescribed diclofenac but she said she had that at home but did not take it. Noted also her primary care has given her hydrocodone No. 30 twice since January. She also is on Lyrica. Patient also noted that she was given hydrocodone but she is now out of that. She also noted she used to be over 300 pounds now 243 pound. Stated she used to be on weight watchers but now only eats what does not stir up her colitis. She also notes a history of psoriasis. Patient did note she is now out of hydrocodone at home. .She also gave a history of having the shingles 3 times but now has received the immunization. The patient notes that sometimes this feels like colitis she has had in the past. She has a very extensive surgical history of a GI bypass but noted a normal barium swallow here recently. Apparently she has also a gastroenterology appointment tomorrow. She notes this abdominal pain that she has been having usually starts in the right and then extends to the back along the right flank. She has had kidney stones in the past but says this does not feel like them. Also patient notes that she is on CPAP at night but not able to tolerate that due to her headache and that any of the headgear causes her more of a headache so she does not use it. CT scan indicates a slow progression of nonspecific interstitial pneumonitis. Questioning some type of connective tissue disease versus autoimmune as primary cause. Patient has been admitted to the floor, due to her pain will repeat the Toradol 15 that was given in the emergency room 2 hours ago also 1 dose of Ativan to help her relax and may be sleep tonight. Patient is now much more calmer her pain does not seem to be anywhere near as severe as when was in the emergency room.. Only complaint is severe heartburn medication has been ordered. COVID is listed as one of the causes for omentum infarct., Patient says she does get her COVID immunization., But she did have positive COVID in May of this year. Also in December seen in our emergency room for bronchitis but I could not find whether COVID testing was done. Unsure of the cause of this patient's abdominal pain due to her very complicated history versus is this just pain from an omentum infarct that age cannot be determined. Patient will then be evaluated by general surgery to see if any intervention is needed for the omentum infarct. Also due to her changes on CT scan will have pulmonology also consulted to evaluate her for this. She did note that she did have an appointment later this week to see pulmonology for question COPD and asthma. [facility] Disclaimer: The information contained in this section may have been updated after the patient was seen, as this information can be updated by other users. Medical History (Updated 04/07/24 @ 12:41 by Dina Franz APRN) ILD (interstitial lung disease) Pyelonephritis Abdominal pain Strep sore throat UTI (urinary tract infection) Type 2 diabetes mellitus Colitis Chest pain Allergic rhinitis with postnasal drip Diabetes Acute viral syndrome Sinusitis Acute viral syndrome Conjunctivitis Hernia, internal Small bowel obstruction Primary osteoarthritis of both feet Posterior tibial tendinitis of left lower extremity BMI 45.0-49.9, adult Diarrhea Nausea and vomiting Abdominal pain Left femoral shaft fracture Left ureteral calculus Patient left without being seen Onychoincurvatum Nail dystrophy Arch pain of left foot Type 2 diabetes mellitus with diabetic neuropathy, without long-term current use of insulin Acquired equinus deformity of both feet Hydronephrosis Ureteral calculi Uncontrolled pain Hydronephrosis due to obstruction of ureter Kidney stone Bronchitis Left foot pain Complaint of pain of great toe Diabetic foot Pain of right heel UTI (urinary tract infection) Omental infarction History of femur fracture Ear noise/buzzing Hearing difficulty of both ears Urinary tract infection Kidney stone Migraine COPD (chronic obstructive pulmonary disease) Asthma Hyperlipidemia Anxiety Diabetes Hypertension Depression Surgical History (Updated 04/07/24 @ 01:34 by Marko Hernandes APRN) History of gastric bypass History of knee replacement History of tubal ligation History of tonsillectomy History of hysterectomy (Unknown) History of cholecystectomy History of section Social History (Updated 04/07/24 @ 00:39 by Marko Hernandes APRN) Smoking Status: Former smoker tobacco type: cigarettes packs per day: 0 and e-cigarettes smoking status stop date: Patient stated stopped 3 years ago how long ago did patient quit smoking: Stopped 3 years ago second hand exposure: No alcohol intake: never substance use type: denies use current occupational status: employed Travel in the last 8 weeks: None household members: family housing: house current occupation: [employer] current occupational exposures/hazards: No caffeine: Yes Other Medical History Have you received the Flu Vaccine for this season: No Have you received the Pneumonia Vaccine: No Review of Systems Review of Systems Review of systems:: pertinent systems reviewed and negative unless documented below Review of systems (narrative): Patient expressed discomfort while being on ER gurney Constitutional Constitutional: Reports as per HPI Eyes Eyes: Reports as per HPI ENT Ears, Nose, Mouth, and Throat: Reports as per HPI *Cardiovascular Cardiovascular: Reports as per HPI Comments: Denies any chest pain *Respiratory Respiratory: Reports as per HPI Comments: Denies any respiratory issues *Gastrointestinal Gastrointestinal: Reports as per HPI, Reports abdominal pain and Reports cramping Comments: Patient denies any nausea or vomiting or changes in bowel movement *Genitourinary Genitourinary: Reports as per HPI *Musculoskeletal Musculoskeletal: Reports as per HPI Comments: Patient noted for knee replacement and femur fracture ORIF Integumentary/Breasts Skin/Breast: Reports as per HPI *Neurologic Neurologic: Reports as per HPI Psychiatric Psychiatric: Reports as per HPI Endocrine Endocrine: Reports as per HPI Hematologic/Lymphatic Hematologic/Lymphatic: Reports as per HPI Allergic/Immunologic Allergic/Immunologic: Reports as per HPI Meds Home Medications and Allergies Home Medications ?Medication ?Instructions ?Recorded ?Confirmed ?Type bupropion HCl 150 mg tablet,12 hr 150 mg PO BID 08/11/18 04/07/24 History sustained-release fluoxetine 40 mg capsule 40 mg PO BID 08/11/18 04/07/24 History levothyroxine 125 mcg tablet 125 mcg PO AM 08/11/18 04/07/24 History pregabalin 150 mg capsule 150 mg PO BID 08/11/18 04/07/24 History simvastatin 5 mg tablet 5 mg PO HS 08/11/18 04/07/24 History loratadine 10 mg tablet 10 mg PO DAILY 01/08/20 04/07/24 History montelukast 10 mg tablet 10 mg PO PM 10/10/20 04/07/24 History risankizumab-rzaa 150 mg/mL 150 mg SQ Q84D 10/28/21 04/07/24 History subcutaneous pen injector budesonide-formoterol HFA 80 2 inh inhalation BID 02/07/24 04/07/24 History mcg-4.5 mcg/actuation aerosol inhaler fluticasone propionate 50 1 - 2 spray intranasal DAILY 02/07/24 04/07/24 History mcg/actuation nasal spray,suspension galcanezumab-gnlm 120 mg/mL 120 mg SQ MONTHLY 02/07/24 04/07/24 History subcutaneous pen injector (Emgality Pen) potassium chloride 10 mEq 10 meq PO DAILY 02/07/24 04/07/24 History capsule,extended release rimegepant 75 mg disintegrating 75 mg PO DAILYP PRN Migraine 02/07/24 04/07/24 History tablet (Nurtec ODT) Headache albuterol sulfate 90 mcg/actuation 2 inh inhalation Q6HP PRN 04/07/24 04/07/24 History aerosol inhaler Shortness Of Breath Or Wheezing flash glucose sensor (FreeStyle 04/07/24 04/07/24 History Niels 2 Sensor kit) fluticasone 100 mcg-salmeterol 50 1 inh inhalation BIDRT 30 days #60 04/07/24 Rx mcg/dose blistr powdr for ea inhalation (Advair Diskus) furosemide 20 mg tablet 20 mg PO DAILY 04/07/24 04/07/24 History linaclotide 72 mcg capsule 72 mcg PO DAILY 04/07/24 04/07/24 History (Linzess) nystatin-triamcinolone 100,000 1 applic topical BID 04/07/24 04/07/24 History unit/g-0.1 % topical cream pantoprazole 20 mg tablet,delayed 20 mg PO BID 04/07/24 04/07/24 History release sitagliptin phosphate 50 mg tablet 50 mg PO DAILY 04/07/24 04/07/24 History (Masood) New Prescriptions to Start Prescriptions: fluticasone propion-salmeterol [Advair Diskus] Marco Antonio Acosta Allergies Allergy/AdvReac Type Severity Reaction Status Date / Time cefdinir Allergy Severe Difficulty Verified 04/06/24 21:56 Breathing morphine (MORPHINE) Allergy Intermediate HALLUCINATI Verified 04/06/24 21:56 ONS levofloxacin (From Levaquin) Allergy Unknown Difficulty Verified 04/06/24 21:59 Breathing Exam Data for Last 24 hours Vital signs and Labs for Last 24 Hours: Temp Pulse Resp BP Pulse Ox O2 Del Method 97 F L 76 20 121/89 97 Room Air 04/06/24 23:41 04/06/24 23:41 04/06/24 23:41 04/06/24 23:41 04/06/24 21:55 04/06/24 23:41 Laboratory Results - last 24 hr 04/06/24 22:19: WBC 9.4, RBC 4.30, Hgb 12.8, Hct 37.8, MCV 87.8, MCH 29.9, MCHC 34.0, RDW 13.6, Plt Count 301, MPV 7.6, Neut % (Auto) 64.9, Lymph % (Auto) 29.5, Rush % (Auto) 4.4, Eos % (Auto) 0.6, Baso % (Auto) 0.7, Neut # (Auto) 6.1, Lymph # (Auto) 2.8, Rush # (Auto) 0.4, Eos # (Auto) 0.1, Baso # (Auto) 0.1, Sodium 140, Potassium 3.3 L, Chloride 109 H, Carbon Dioxide 25, Anion Gap 9.3, BUN 14, Creatinine 0.90, Estimated Creat Clear 51, Estimated GFR 64, Est GFR ( Amer) 78, Glucose 126 H, Calcium 8.9, Total Bilirubin 0.7, AST 30, ALT 29, Alkaline Phosphatase 77, Total Protein 6.6, Albumin 3.8, Globulin 2.8, Albumin/Globulin Ratio 1.4, Lipase 62 04/06/24 22:46: Lactate 1.8 04/06/24 22:49: Urine Color Dark yellow, Urine Appearance Slightly cloudy, Urine pH 6.0, Ur Specific [place] >= 1.030, Urine Protein Negative, Urine Glucose (UA) Negative, Urine Ketones Trace, Urine Blood Negative, Urine Nitrate Negative, Urine Bilirubin Negative, Urine Urobilinogen 1.0, Ur Leukocyte Esterase 1+ A, Urine RBC None, Urine WBC 10-20, Ur Squamous Epith Cells Occasional, Urine Bacteria Trace I & O for Last 24 hours: Intake & Output 04/04/24 04/05/24 04/06/24 04/07/24 05:59 05:59 05:59 05:59 Weight 242 lb Radiology Reports for the Last 24 Hours: CT scan of the abdomen showing omentum infarction, no other significant findings showing past surgeries. Constitutional Constitutional: moderate distress, morbidly obese and cooperative Comments: Patient is rating pain as severe. *Routine HEENT Exam Head: Present normocephalic and atraumatic Eye: Present EOMI and PERRL ENT: Present mucous membranes moist *Routine Neck Exam Neck: Present full ROM Routine Chest/Breast/Axilla Exam Comments: No chest wall or breast tenderness was reported or found *Routine Respiratory Exam Respiratory: Present CTA bilaterally, distant breath sounds, normal respiratory effort, able to speak in complete sentences and symmetric chest movement *Routine Cardiovascular Exam Cardiovascular: Present RRR Comments: Due to the patient's size very difficult to evaluate heart tones, she has no peripheral edema and brisk capillary refill in her nailbeds *Routine Abdominal Exam Abdominal: Present soft and obese Comments: Due to the patient being in great discomfort with her abdomen I did not apply any palpation except for the lightest touch, and with reviewing the CT scan felt there was no need to pursue a more extensive abdominal exam. *Routine Rectal Exam Rectal:: deferred *Routine Genitalia Exam Genitalia:: deferred *Routine Extremities Exam Comments: Normal extremity exam patient is able to move sit up and stand and walk without assistance Routine Back/Spine/Pelvis Exam Back/Spine: Present full ROM Comments: During my exam and interview with the patient patient showed no signs of having any significant back pain all pain related was really lower abdomen *Routine Skin Exam Skin: Present intact and warm Comments: Patient has a history of psoriasis is being treated I found no signs of psoriasis outbreak at this time *Routine Neurological Exam Neurological: Present alert, oriented X3, CN II-XII intact, normal reflexes, normal tone, vision grossly intact, hearing grossly intact and normal speech Comments: Patient noted for hearing loss being worked up with a but patient has no difficulty in understanding normal tone conversations Routine Psychiatric Exam Psychiatric: Present cooperative, good judgment, depressed and anxious Comments: Patient at times showing emotional distress question whether it is the pain versus family situation.. She is on several antidepressant/ antianxiety medications from her providers. Patient is much calmer and easier to talk to now then in the ER. I feel that the Ativan given her 1 dose has helped the most with that. And she is no longer showing signs of acute pain. H&P: Result Impressions 1. Chronic versus acute abdominal pain CT scan showing omental infarct 2. CT scan changes showing nonspecific interstitial pneumonitis 3. Morbid obesity 4. Anxiety and depression being treated by primary care Imaging and Cardiology CT scan - abdomen: Status: image reviewed by me Additional comments: CT scan of the abdomen shows multiple surgery sites including madeleine midline., Omentum infarct is noted by radiology reading, also being able to see the bottoms of the lungs made reference to the nonspecific interstitial pneumonitis, that has progressed over the past 2 years. Assessment and Plan *Assessment and plan (1) Omental infarction: Status: Acute Category: Medical Code(s): K55.069 - Acute infarction of intestine, part and extent unspecified (2) Intractable abdominal pain: Status: Acute Category: Medical Code(s): R10.9 - Unspecified abdominal pain (3) UTI (urinary tract infection): Status: Acute Qualifiers: Hematuria presence: without hematuria Urinary tract infection type: acute cystitis Qualified Code(s): N30.00 - Acute cystitis without hematuria Category: Medical Code(s): N39.0 - Urinary tract infection, site not specified (4) Hypokalemia: Status: Acute Category: Medical Code(s): E87.6 - Hypokalemia (5) NSIP (nonspecific interstitial pneumonitis): Status: Acute Category: Medical Code(s): J84.89 - Other specified interstitial pulmonary diseases (6) BMI greater than 40: Status: Acute Category: Medical (7) Heartburn: Status: Acute Category: Medical Code(s): R12 - Heartburn (8) Anxiety and depression: Status: Acute Category: Medical Code(s): F41.9 - Anxiety disorder, unspecified; F32.A - Depression, unspecified (9) Chronic pain disorder: Status: Acute Category: Medical Code(s): G89.4 - Chronic pain syndrome Plan 1. For the irretractable abdominal pain and the omental infarct found on CT scan, patient has been admitted to the floor., Has been given medication patient is improved on the floor, consult has been done for general surgery to see if any intervention is needed due to the level of pain she has had., This rare condition unknown of cause it is noted in people who have obesity. It is also noted with people who have had COVID. With the patient's complicated past medical history and chronic pain issues, I am unable to determine exactly when this situation began 2. Urinary tract infection with mild hypokalemia, patient has been being treated with antibiotics since being seen in the emergency room still has +1 leukocytes will continue Bactrim at this time. Will follow patient's labs and electrolyte replacement has been ordered as needed 3. Incidental finding on CT scan that the patient has a past history of smoking and was planning on seeing pulmonology this week for COPD/asthma. CT scan shows nonspecific interstitial pneumonitis that is slowly progressing per CT scan. 4. Morbid obesity which patient says improved used to be over 300 pounds now below 250. May be one of the causes of the omental infarct. Patient is aware that she does need to continue to lose some weight. 5. Patient was complaining of heartburn she says this is not chronic treated episodically now that the patient is on the floor with Tums and Pepcid. 6. Anxiety/depression. Per the patient long history of this she is on medication for it that does help. 7. History of chronic pain related to multiple surgeries., Patient noted that she is given hydrocodone by her primary care 30 at a time but she has already taken all of these, due to the increased need of her abdominal pain. Patient has been counseled to update her primary care on the use of her narcotic medicines especially during this time that has required her hospitalization due to increased pain. Rounded on patient after nurse practitioner. Personally examined and interviewed patient. Agree with exam findings and care plan as documented. GI, surgery, pulmonology to see patient today. Stable on room air. No nausea or vomiting. Further management pending consults. Pain doing better by the time I saw her in the morning. Urine well and has leuk esterase, does not have nitrates, patient not having any significant urinary symptoms. No indication for treatment at this time. White count normal at 6.7. Kidney function normal with BUN 14, creatinine 1.
[2024-04-07] MEDS: LORazepam 0.5MG TABLET 0.5 MG PO (00:39)
[2024-04-07] MEDS: KETOROLAC 30MG/ML VIAL 15 MG IV (00:39)
[2024-04-07] MEDS: CALCIUM CARBONATE 500MG CHEWTAB 500 MG PO ×2 (01:21→09:44)
[2024-04-07] MEDS: FAMOTIDINE 20MG TABLET 40 MG PO (01:21)
[2024-04-07 03:49] VITALS: BP 109/69; PULSE 66; RESP 16; TEMP 36.8; O2SAT 99; BMI 46.4
[2024-04-07] MEDS: SITAGLIPTIN PHOSPHATE 100 MG 50 EACH PO (06:55)
[2024-04-07] MEDS: KETOROLAC 30MG/ML VIAL 30 MG IV (06:56)
--- NOTE | 2024-04-07 07:01 | PC.NURSE ---
04/07/24 0700 finger stick glucose was 83, free-style Niels was 103
[2024-04-07 07:11] LABS: POC Glucose,Bedside 83 (70-110)
[2024-04-07 07:19] LABS: Chloride 110 mmol/L (98-107)
[2024-04-07 07:20] LABS: Albumin Level 3.6 g/dl (3.5-5.0); Potassium 3.9 mmoL/L (3.5-5.1); Sodium 142 mmol/L (136-145)
[2024-04-07 07:21] LABS: Basophils # 0.1 K/mm3 (0-0.2); Basophils % 0.9 % (0.1-2.0); Eosinophils # 0.1 K/mm3 (0.0-0.4); Eosinophils % 1.1 % (0.1-12.0); Hematocrit 37.1 % (37.0-47.0); Hemoglobin 12.5 g/dL (12.2-16.2); Lymphocytes # 2.7 K/mm3 (0.7-4.5); Lymphocytes % 40.2 % (10-50); Mean Corpuscular HGB Conc 33.7 g/dL (31.8-35.4); Mean Corpuscular Hemoglobin 30.3 pg (27.0-31.2); Mean Corpuscular Volume 90.2 fl (81-99); Mean Platelet Volume 7.7 fl (7.4-10.4); Monocytes # 0.4 K/mm3 (0.1-1.0); Monocytes % 6.2 % (1.7-9.3); Neutrophils # 3.4 K/mm3 (1.8-7.8); Neutrophils % 51.6 % (37.0-80.0); Platelet Count 267 K/mm3 (142-424); Red Blood Count 4.12 M/mm3 (4.20-5.40); Red Cell Distribution Width 14.2 % (11.5-17.5); White Blood Count 6.7 K/mm3 (4.8-10.8)
[2024-04-07 07:22] LABS: Alanine Aminotransferase 25 U/L (12-78); Alkaline Phosphatase 66 U/L (38-126); Anion Gap 8.9 mEq/L (5-15); Aspartate Amino Transferase 31 U/L (14-36); Blood Urea Nitrogen 14 mg/dl (7-17); Carbon Dioxide 27 mmol/L (22.0-30.0); Creatinine Clearance Estimated 46 mL/min (50-200); Estimated Glomerular Filt Rate 57 ml/min (>60); GFR (African American) 69 ML/MIN (>60)
[2024-04-07 07:23] LABS: Albumin/Globulin Ratio 1.4 (1.1-1.8); Calcium 9.1 mg/dl (8.4-10.2); Globulin 2.5 g/dL (1.3-3.2); Glucose 80 mg/dl (74-100); Total Protein,Serum 6.1 g/dl (6.3-8.2)
[2024-04-07 07:50] LABS: Thyroid Stimulating Hormone 2.41 uIU/mL (0.465-4.68)
[2024-04-07] MEDS: LEVOTHYROXINE 125MCG (0.125MG) TAB 125 MCG PO (07:53)
--- NOTE | 2024-04-07 07:53 | EXP.SURG.CON ---
History of Present Illness *Admission Date: 04/07/24 *Reason for visit:: Intractable abdominal pain *History of present illness: Patient is a 58-year-old female who had presented to the emergency department 3 times in the past couple of days for abdominal pain. She has had intermittent abdominal pain for the past year which will often persist for several weeks. Usually self-limited. Over the past several days it has been more severe. Describes the pain in the right lower quadrant. Worse postprandially and with some movement. She was seen in the emergency department on 04/05/[address] scan. By report this revealed no acute intra-abdominal findings. . 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 At that time surgery was contacted and given the fact that segmental omental infarction is self-limited arrangements were made for outpatient management. She returned to the emergency department a few hours later with complaints of suprapubic pressure, pain, frequency, and dysuria. She was able to be managed as an outpatient. She returned to the emergency department once again a few hours later with right lower quadrant right flank pain. Laboratory studies were reassuring at that time. She was admitted for inpatient management given her intractable pain. She has had prior surgical interventions for renal calculi. She has prior admission for colitis. Interestingly, patient has previously undergone gastric bypass several decades ago. She has established care with a surgeon to follow her gastric bypass in [place]. She apparently did undergo an upper GI recently, several weeks ago, to evaluate this pain and this was reportedly unremarkable. She had an appointment with gastroenterology at this facility as an outpatient today. [facility] Disclaimer: The information contained in this section may have been updated after the patient was seen, as this information can be updated by other users. Medical History (Updated 04/07/24 @ 01:59 by Marko Hernandes APRN) Pyelonephritis Abdominal pain Strep sore throat UTI (urinary tract infection) Type 2 diabetes mellitus Colitis Chest pain Allergic rhinitis with postnasal drip Diabetes Acute viral syndrome Sinusitis Acute viral syndrome Conjunctivitis Hernia, internal Small bowel obstruction Primary osteoarthritis of both feet Posterior tibial tendinitis of left lower extremity BMI 45.0-49.9, adult Diarrhea Nausea and vomiting Abdominal pain Left femoral shaft fracture Left ureteral calculus Patient left without being seen Onychoincurvatum Nail dystrophy Arch pain of left foot Type 2 diabetes mellitus with diabetic neuropathy, without long-term current use of insulin Acquired equinus deformity of both feet Hydronephrosis Ureteral calculi Uncontrolled pain Hydronephrosis due to obstruction of ureter Kidney stone Bronchitis Left foot pain Complaint of pain of great toe Diabetic foot Pain of right heel UTI (urinary tract infection) Omental infarction History of femur fracture Ear noise/buzzing Hearing difficulty of both ears Urinary tract infection Kidney stone Migraine COPD (chronic obstructive pulmonary disease) Asthma Hyperlipidemia Anxiety Diabetes Hypertension Depression Surgical History (Updated 04/07/24 @ 01:34 by Marko Hernandes APRN) History of gastric bypass History of knee replacement History of tubal ligation History of tonsillectomy History of hysterectomy (Unknown) History of cholecystectomy History of section Social History (Updated 04/07/24 @ 00:39 by Marko Hernandes APRN) Smoking Status: Former smoker tobacco type: cigarettes packs per day: 0 and e-cigarettes smoking status stop date: Patient stated stopped 3 years ago how long ago did patient quit smoking: Stopped 3 years ago second hand exposure: No alcohol intake: never substance use type: denies use current occupational status: employed Travel in the last 8 weeks: None household members: family housing: house current occupation: [employer] current occupational exposures/hazards: No caffeine: Yes Review of Systems *Neurologic Neurologic: Reports as per [facility] Meds Home Medications and Allergies Home Medications ?Medication ?Instructions ?Recorded ?Confirmed ?Type bupropion HCl 150 mg tablet,12 hr 150 mg PO BID 08/11/18 04/07/24 History sustained-release fluoxetine 40 mg capsule 40 mg PO BID 08/11/18 04/07/24 History levothyroxine 125 mcg tablet 125 mcg PO AM 08/11/18 04/07/24 History pregabalin 150 mg capsule 150 mg PO BID 08/11/18 04/07/24 History simvastatin 5 mg tablet 5 mg PO HS 08/11/18 04/07/24 History loratadine 10 mg tablet 10 mg PO DAILY 01/08/20 04/07/24 History montelukast 10 mg tablet 10 mg PO PM 10/10/20 04/07/24 History risankizumab-rzaa 150 mg/mL 150 mg SQ Q84D 10/28/21 04/07/24 History subcutaneous pen injector budesonide-formoterol HFA 80 2 inh inhalation BID 02/07/24 04/07/24 History mcg-4.5 mcg/actuation aerosol inhaler fluticasone propionate 50 1 - 2 spray intranasal DAILY 02/07/24 04/07/24 History mcg/actuation nasal spray,suspension galcanezumab-gnlm 120 mg/mL 120 mg SQ MONTHLY 02/07/24 04/07/24 History subcutaneous pen injector (Emgality Pen) potassium chloride 10 mEq 10 meq PO DAILY 02/07/24 04/07/24 History capsule,extended release rimegepant 75 mg disintegrating 75 mg PO DAILYP PRN Migraine 02/07/24 04/07/24 History tablet (Nurtec ODT) Headache albuterol sulfate 90 mcg/actuation 2 inh inhalation Q6HP PRN 04/07/24 04/07/24 History aerosol inhaler Shortness Of Breath Or Wheezing flash glucose sensor (FreeStyle 04/07/24 04/07/24 History Niels 2 Sensor kit) furosemide 20 mg tablet 20 mg PO DAILY 04/07/24 04/07/24 History linaclotide 72 mcg capsule 72 mcg PO DAILY 04/07/24 04/07/24 History (Melanie) nystatin-triamcinolone 100,000 1 applic topical BID 04/07/24 04/07/24 History unit/g-0.1 % topical cream pantoprazole 20 mg tablet,delayed 20 mg PO BID 04/07/24 04/07/24 History release sitagliptin phosphate 50 mg tablet 50 mg PO DAILY 04/07/24 04/07/24 History (Masood) New Prescriptions to Start Prescriptions: Allergies Allergy/AdvReac Type Severity Reaction Status Date / Time cefdinir Allergy Severe Difficulty Verified 04/06/24 21:56 Breathing morphine (MORPHINE) Allergy Intermediate HALLUCINATI Verified 04/06/24 21:56 ONS levofloxacin (From Levaquin) Allergy Unknown Difficulty Verified 04/06/24 21:59 Breathing Exam (Inpt) Vital signs and Labs for Last 24 Hours: Temp Pulse Resp BP Pulse Ox O2 Del Method 98.2 F 66 16 109/69 L 99 Room Air 04/07/24 03:49 04/07/24 03:49 04/07/24 03:49 04/07/24 03:49 04/07/24 03:49 04/07/24 07:00 Laboratory Results - last 24 hr 04/06/24 22:19: WBC 9.4, RBC 4.30, Hgb 12.8, Hct 37.8, MCV 87.8, MCH 29.9, MCHC 34.0, RDW 13.6, Plt Count 301, MPV 7.6, Neut % (Auto) 64.9, Lymph % (Auto) 29.5, [place] % (Auto) 4.4, Eos % (Auto) 0.6, Baso % (Auto) 0.7, Neut # (Auto) 6.1, Lymph # (Auto) 2.8, [place] # (Auto) 0.4, Eos # (Auto) 0.1, Baso # (Auto) 0.1, Sodium 140, Potassium 3.3 L, Chloride 109 H, Carbon Dioxide 25, Anion Gap 9.3, BUN 14, Creatinine 0.90, Estimated Creat Clear 51, Estimated GFR 64, Est GFR ( Amer) 78, Glucose 126 H, Calcium 8.9, Total Bilirubin 0.7, AST 30, ALT 29, Alkaline Phosphatase 77, Total Protein 6.6, Albumin 3.8, Globulin 2.8, Albumin/Globulin Ratio 1.4, Lipase 62 04/06/24 22:46: Lactate 1.8 04/06/24 22:49: Urine Color Dark yellow, Urine Appearance Slightly cloudy, Urine pH 6.0, Ur Specific [place] >= 1.030, Urine Protein Negative, Urine Glucose (UA) Negative, Urine Ketones Trace, Urine Blood Negative, Urine Nitrate Negative, Urine Bilirubin Negative, Urine Urobilinogen 1.0, Ur Leukocyte Esterase 1+ A, Urine RBC None, Urine WBC 10-20, Ur Squamous Epith Cells Occasional, Urine Bacteria Trace 04/07/24 06:36: WBC 6.7 D, RBC 4.12 L, Hgb 12.5, Hct 37.1, MCV 90.2, MCH 30.3, MCHC 33.7, RDW 14.2, Plt Count 267, MPV 7.7, Neut % (Auto) 51.6, Lymph % (Auto) 40.2, [place] % (Auto) 6.2, Eos % (Auto) 1.1, Baso % (Auto) 0.9, Neut # (Auto) 3.4, Lymph # (Auto) 2.7, [place] # (Auto) 0.4, Eos # (Auto) 0.1, Baso # (Auto) 0.1, Sodium 142, Potassium 3.9, Chloride 110 H, Carbon Dioxide 27, Anion Gap 8.9, BUN 14, Creatinine 1.00, Estimated Creat Clear 46, Estimated GFR 57 L, Est GFR ( Amer) 69, Glucose 80 D, Calcium 9.1, Total Bilirubin 1.0, AST 31, ALT 25, Alkaline Phosphatase 66, Total Protein 6.1 L, Albumin 3.6, Globulin 2.5, Albumin/Globulin Ratio 1.4 04/07/24 06:59: POC Glucose 83 I & O for Labs for Last 24 Hours: Intake & Output 04/04/24 04/05/24 04/06/24 04/07/24 11:59 11:59 11:59 11:59 Intake Total 0 / 0 Balance 0 / 0 Weight 246 lb 0.01 oz Constitutional: no acute distress Head: Present normocephalic Cardiac: Present Reg Rate and Rhythm GI: Present soft Comments:: Mild tenderness in the right lower quadrant without guarding or rebound. Results Labs 04/07/24 06:36 04/07/24 06:36 Labs: Laboratory Results - last 24 hr 04/06/24 22:19: WBC 9.4, RBC 4.30, Hgb 12.8, Hct 37.8, MCV 87.8, MCH 29.9, MCHC 34.0, RDW 13.6, Plt Count 301, MPV 7.6, Neut % (Auto) 64.9, Lymph % (Auto) 29.5, [place] % (Auto) 4.4, Eos % (Auto) 0.6, Baso % (Auto) 0.7, Neut # (Auto) 6.1, Lymph # (Auto) 2.8, [place] # (Auto) 0.4, Eos # (Auto) 0.1, Baso # (Auto) 0.1, Sodium 140, Potassium 3.3 L, Chloride 109 H, Carbon Dioxide 25, Anion Gap 9.3, BUN 14, Creatinine 0.90, Estimated Creat Clear 51, Estimated GFR 64, Est GFR ( Amer) 78, Glucose 126 H, Calcium 8.9, Total Bilirubin 0.7, AST 30, ALT 29, Alkaline Phosphatase 77, Total Protein 6.6, Albumin 3.8, Globulin 2.8, Albumin/Globulin Ratio 1.4, Lipase 62 04/06/24 22:46: Lactate 1.8 04/06/24 22:49: Urine Color Dark yellow, Urine Appearance Slightly cloudy, Urine pH 6.0, Ur Specific [place] >= 1.030, Urine Protein Negative, Urine Glucose (UA) Negative, Urine Ketones Trace, Urine Blood Negative, Urine Nitrate Negative, Urine Bilirubin Negative, Urine Urobilinogen 1.0, Ur Leukocyte Esterase 1+ A, Urine RBC None, Urine WBC 10-20, Ur Squamous Epith Cells Occasional, Urine Bacteria Trace 04/07/24 06:36: WBC 6.7 D, RBC 4.12 L, Hgb 12.5, Hct 37.1, MCV 90.2, MCH 30.3, MCHC 33.7, RDW 14.2, Plt Count 267, MPV 7.7, Neut % (Auto) 51.6, Lymph % (Auto) 40.2, [place] % (Auto) 6.2, Eos % (Auto) 1.1, Baso % (Auto) 0.9, Neut # (Auto) 3.4, Lymph # (Auto) 2.7, [place] # (Auto) 0.4, Eos # (Auto) 0.1, Baso # (Auto) 0.1, Sodium 142, Potassium 3.9, Chloride 110 H, Carbon Dioxide 27, Anion Gap 8.9, BUN 14, Creatinine 1.00, Estimated Creat Clear 46, Estimated GFR 57 L, Est GFR ( Amer) 69, Glucose 80 D, Calcium 9.1, Total Bilirubin 1.0, AST 31, ALT 25, Alkaline Phosphatase 66, Total Protein 6.1 L, Albumin 3.6, Globulin 2.5, Albumin/Globulin Ratio 1.4 04/07/24 06:59: POC Glucose 83 Assessment and Plan *Assessment and plan (1) Intractable abdominal pain: Status: Acute Category: Medical Code(s): R10.9 - Unspecified abdominal pain Plan Patient has chronic abdominal pain with recent progression. Uncertain etiology. Segmental omental infarction is usually self-limited not requiring intervention. May consider gastroenterology evaluation. Could consider CT repeat with oral contrast as well as IV for interval change.
[2024-04-07 08:00] VITALS: BP 121/76; PULSE 62; RESP 18; TEMP 36.6; O2SAT 97
[2024-04-07] MEDS: buPROPion HCl SR 150MG TAB 150 MG PO (08:05)
[2024-04-07] MEDS: PREGABALIN 50MG CAPSULE 150 MG PO (08:05)
[2024-04-07] MEDS: FLUOXETINE 20MG CAPSULE 40 MG PO (08:05)
[2024-04-07 08:42] LABS: Hemoglobin A1C 5.2 % (4.0-6.0)
--- NOTE | 2024-04-07 08:50 | HMH.PHAINT1 ---
Pharmacy Intervention Comments: home medications verified via outpatient pharmacy and patient interview
--- NOTE | 2024-04-07 09:27 | EXP.PULM.CON ---
History of Present Illness History of present illness: Ms. Murillo is a 58-year-old female presented to the ER with abdominal discomfort possible omental infarct and pulmonary was called for further evaluation and management setting her prior reported COVID-19 infection. She also have a history of possible asthma COPD overlap syndrome. [facility] Disclaimer: The information contained in this section may have been updated after the patient was seen, as this information can be updated by other users. Medical History (Updated 04/07/24 @ 11:09 by Wale Hutchins MD) ILD (interstitial lung disease) Pyelonephritis Abdominal pain Strep sore throat UTI (urinary tract infection) Type 2 diabetes mellitus Colitis Chest pain Allergic rhinitis with postnasal drip Diabetes Acute viral syndrome Sinusitis Acute viral syndrome Conjunctivitis Hernia, internal Small bowel obstruction Primary osteoarthritis of both feet Posterior tibial tendinitis of left lower extremity BMI 45.0-49.9, adult Diarrhea Nausea and vomiting Abdominal pain Left femoral shaft fracture Left ureteral calculus Patient left without being seen Onychoincurvatum Nail dystrophy Arch pain of left foot Type 2 diabetes mellitus with diabetic neuropathy, without long-term current use of insulin Acquired equinus deformity of both feet Hydronephrosis Ureteral calculi Uncontrolled pain Hydronephrosis due to obstruction of ureter Kidney stone Bronchitis Left foot pain Complaint of pain of great toe Diabetic foot Pain of right heel UTI (urinary tract infection) Omental infarction History of femur fracture Ear noise/buzzing Hearing difficulty of both ears Urinary tract infection Kidney stone Migraine COPD (chronic obstructive pulmonary disease) Asthma Hyperlipidemia Anxiety Diabetes Hypertension Depression Surgical History (Updated 04/07/24 @ 01:34 by Marko Hernandes APRN) History of gastric bypass History of knee replacement History of tubal ligation History of tonsillectomy History of hysterectomy (Unknown) History of cholecystectomy History of section Social History (Updated 04/07/24 @ 00:39 by Marko Hernandes APRN) Smoking Status: Former smoker tobacco type: cigarettes packs per day: 0 and e-cigarettes smoking status stop date: Patient stated stopped 3 years ago how long ago did patient quit smoking: Stopped 3 years ago second hand exposure: No alcohol intake: never substance use type: denies use current occupational status: employed household members: family housing: house current occupation: [employer] current occupational exposures/hazards: No caffeine: Yes Review of Systems Constitutional Constitutional: Denies anorexia, Denies body ache(s) and Denies fatigue Eyes Eyes: Denies eye discharge, Denies dry eyes, Denies irritation and Denies itchy eyes ENT Ears, Nose, Mouth, and Throat: Denies epistaxis, Denies facial pain, Denies lip swelling and Denies throat swelling *Cardiovascular Cardiovascular: Denies dyspnea and Denies dyspnea on exertion *Respiratory Respiratory: Denies chest congestion, Denies cough, Denies dyspnea, Denies dyspnea on exertion, Denies excessive phlegm production and Denies wheezing *Gastrointestinal Gastrointestinal: Reports abdominal pain, Denies belching and Reports cramping *Musculoskeletal Musculoskeletal: Denies myalgias *Neurologic Neurologic: Reports as per HPI Psychiatric Psychiatric: Denies homicidal ideation and Denies suicidal ideation Endocrine Endocrine: Denies fatigue and Denies heat intolerance Hematologic/Lymphatic Hematologic/Lymphatic: Denies easy bleeding and Denies lymphadenopathy Allergic/Immunologic Allergic/Immunologic: Denies itchy eyes, Denies lip swelling, Denies throat swelling and Denies wheezing Pulmonology Exam Inpatient Vital signs and Labs for Last 24 Hours: Temp Pulse Resp BP Pulse Ox O2 Del Method 98 F 62 18 121/76 97 Room Air 04/07/24 08:00 04/07/24 08:00 04/07/24 08:00 04/07/24 08:00 04/07/24 08:00 04/07/24 09:00 Laboratory Results - last 24 hr 04/06/24 22:19: WBC 9.4, RBC 4.30, Hgb 12.8, Hct 37.8, MCV 87.8, MCH 29.9, MCHC 34.0, RDW 13.6, Plt Count 301, MPV 7.6, Neut % (Auto) 64.9, Lymph % (Auto) 29.5, [place] % (Auto) 4.4, Eos % (Auto) 0.6, Baso % (Auto) 0.7, Neut # (Auto) 6.1, Lymph # (Auto) 2.8, [place] # (Auto) 0.4, Eos # (Auto) 0.1, Baso # (Auto) 0.1, Sodium 140, Potassium 3.3 L, Chloride 109 H, Carbon Dioxide 25, Anion Gap 9.3, BUN 14, Creatinine 0.90, Estimated Creat Clear 51, Estimated GFR 64, Est GFR ( Amer) 78, Glucose 126 H, Calcium 8.9, Total Bilirubin 0.7, AST 30, ALT 29, Alkaline Phosphatase 77, Total Protein 6.6, Albumin 3.8, Globulin 2.8, Albumin/Globulin Ratio 1.4, Lipase 62 04/06/24 22:46: Lactate 1.8 04/06/24 22:49: Urine Color Dark yellow, Urine Appearance Slightly cloudy, Urine pH 6.0, Ur Specific [place] >= 1.030, Urine Protein Negative, Urine Glucose (UA) Negative, Urine Ketones Trace, Urine Blood Negative, Urine Nitrate Negative, Urine Bilirubin Negative, Urine Urobilinogen 1.0, Ur Leukocyte Esterase 1+ A, Urine RBC None, Urine WBC 10-20, Ur Squamous Epith Cells Occasional, Urine Bacteria Trace 04/07/24 06:36: WBC 6.7 D, RBC 4.12 L, Hgb 12.5, Hct 37.1, MCV 90.2, MCH 30.3, MCHC 33.7, RDW 14.2, Plt Count 267, MPV 7.7, Neut % (Auto) 51.6, Lymph % (Auto) 40.2, [place] % (Auto) 6.2, Eos % (Auto) 1.1, Baso % (Auto) 0.9, Neut # (Auto) 3.4, Lymph # (Auto) 2.7, [place] # (Auto) 0.4, Eos # (Auto) 0.1, Baso # (Auto) 0.1, Sodium 142, Potassium 3.9, Chloride 110 H, Carbon Dioxide 27, Anion Gap 8.9, BUN 14, Creatinine 1.00, Estimated Creat Clear 46, Estimated GFR 57 L, Est GFR ( Amer) 69, Glucose 80 D, Hemoglobin A1c 5.2, Calcium 9.1, Total Bilirubin 1.0, AST 31, ALT 25, Alkaline Phosphatase 66, Total Protein 6.1 L, Albumin 3.6, Globulin 2.5, Albumin/Globulin Ratio 1.4, TSH 2.41 04/07/24 06:59: POC Glucose 83 I & O for Labs for Last 24 Hours: Intake & Output 04/04/24 04/05/24 04/06/24 04/07/24 23:59 23:59 23:59 23:59 Intake Total 100 / 100 Output Total 0 / 0 Balance 100 / 100 Weight 242 lb 246 lb 0.01 oz Constitutional: Present mild distress Head: Present normocephalic and atraumatic ENT: Present normal exam, normal oropharynx and mucous membranes moist Neck: Present normal inspection and full ROM Respiratory: Present able to speak in complete sentences; Absent prolonged expiratory phase, respiratory distress, wheezes, crackles or diminished air movement Cardiac: Present S1/S2, Tachycardia and radial pulses present GI: Present soft and distention; Absent tenderness or guarding Rectal (female): Present deferred (female): Present deferred Skin: Present intact; Absent cyanosis or jaundice Neuro: Present alert, awake and oriented x 3 Extremities: Present normal inspection; Absent clubbing or cyanosis Psychiatric: Present normal affect and cooperative Meds Home Medications and Allergies Home Medications ?Medication ?Instructions ?Recorded ?Confirmed ?Type bupropion HCl 150 mg tablet,12 hr 150 mg PO BID 08/11/18 04/07/24 History sustained-release fluoxetine 40 mg capsule 40 mg PO BID 08/11/18 04/07/24 History levothyroxine 125 mcg tablet 125 mcg PO AM 08/11/18 04/07/24 History pregabalin 150 mg capsule 150 mg PO BID 08/11/18 04/07/24 History simvastatin 5 mg tablet 5 mg PO HS 08/11/18 04/07/24 History loratadine 10 mg tablet 10 mg PO DAILY 01/08/20 04/07/24 History montelukast 10 mg tablet 10 mg PO PM 10/10/20 04/07/24 History risankizumab-rzaa 150 mg/mL 150 mg SQ Q84D 10/28/21 04/07/24 History subcutaneous pen injector budesonide-formoterol HFA 80 2 inh inhalation BID 02/07/24 04/07/24 History mcg-4.5 mcg/actuation aerosol inhaler fluticasone propionate 50 1 - 2 spray intranasal DAILY 02/07/24 04/07/24 History mcg/actuation nasal spray,suspension galcanezumab-gnlm 120 mg/mL 120 mg SQ MONTHLY 02/07/24 04/07/24 History subcutaneous pen injector (Emgality Pen) potassium chloride 10 mEq 10 meq PO DAILY 02/07/24 04/07/24 History capsule,extended release rimegepant 75 mg disintegrating 75 mg PO DAILYP PRN Migraine 02/07/24 04/07/24 History tablet (Nurtec ODT) Headache albuterol sulfate 90 mcg/actuation 2 inh inhalation Q6HP PRN 04/07/24 04/07/24 History aerosol inhaler Shortness Of Breath Or Wheezing flash glucose sensor (FreeStyle 04/07/24 04/07/24 History Niels 2 Sensor kit) furosemide 20 mg tablet 20 mg PO DAILY 04/07/24 04/07/24 History linaclotide 72 mcg capsule 72 mcg PO DAILY 04/07/24 04/07/24 History (Linzess) nystatin-triamcinolone 100,000 1 applic topical BID 04/07/24 04/07/24 History unit/g-0.1 % topical cream pantoprazole 20 mg tablet,delayed 20 mg PO BID 04/07/24 04/07/24 History release sitagliptin phosphate 50 mg tablet 50 mg PO DAILY 04/07/24 04/07/24 History (Januvia) New Prescriptions to Start Prescriptions: Allergies Allergy/AdvReac Type Severity Reaction Status Date / Time cefdinir Allergy Severe Difficulty Verified 04/06/24 21:56 Breathing morphine (MORPHINE) Allergy Intermediate HALLUCINATI Verified 04/06/24 21:56 ONS levofloxacin (From Levaquin) Allergy Unknown Difficulty Verified 04/06/24 21:59 Breathing Results Laboratory Findings 04/07/24 06:36 04/07/24 06:36 Abnormal lab findings: Abnormal Labs 04/06/24 04/06/24 04/07/24 22:19 22:49 06:36 RBC 4.12 L Potassium 3.3 L Chloride 109 H 110 H Estimated GFR 57 L Glucose 126 H Total Protein 6.1 L Ur Leukocyte Esterase 1+ A Assessment and Plan *Assessment and plan (1) ILD (interstitial lung disease): Status: Acute Category: Medical Code(s): J84.9 - Interstitial pulmonary disease, unspecified (2) Asthma: Status: Acute Category: Medical Code(s): J45.909 - Unspecified asthma, uncomplicated Plan Ms. Murillo is a 58-year-old female presented to the ER with abdominal discomfort possible omental infarct and pulmonary was called for further evaluation and management setting her prior reported COVID-19 infection. She also have a history of possible asthma COPD overlap syndrome. History of sleep apnea polysomnography November 2019 AHI of 12. She carries a diagnosis of asthma, using Symbicort 81 puff daily at baseline. Good symptom control. Afebrile. Hemodynamically stable. Baseline respiratory status on room air. Respiratory viral PCR panel pending. CT abdomen continue to show subpleural lower lobe predominant interstitial changes. No dense consolidative/airspace changes noted. On examination patient does not appear to be in any respiratory distress. On room air saturating 95% and above. No wheezing noted on auscultation. Plan: Initiate Advair 100 twice daily along with albuterol to 6 as needed For the noted lower lobe interstitial changes will follow the patient as an outpatient basis with a full PFT and walk testing in 4 to 6 weeks. # Thank you for involving pulmonary in this patient care. Will continue to follow.
--- NOTE | 2024-04-07 10:26 | P.CONS_ITS ---
History of Present Illness *Admission Date: 04/07/24 *History of present illness: Patient is a 58-year-old female who had presented to the emergency department 3 times in the past couple of days for abdominal pain. She has had intermittent abdominal pain for the past year which will often persist for several weeks. Usually self-limited. Over the past several days it has been more severe. Describes the pain in the right lower quadrant. Worse postprandially and with some movement. She was seen in the emergency department on 04/05/[address] scan. By report this revealed no acute intra-abdominal findings. . 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 At that time surgery was contacted and given the fact that segmental omental infarction is self-limited arrangements were made for outpatient management. She returned to the emergency department a few hours later with complaints of suprapubic pressure, pain, frequency, and dysuria. She was able to be managed as an outpatient. She returned to the emergency department once again a few hours later with right lower quadrant right flank pain. Laboratory studies were reassuring at that time. She was admitted for inpatient management given her intractable pain. She has had prior surgical interventions for renal calculi. She has prior admission for colitis. Interestingly, patient has previously undergone gastric bypass several decades ago. She has established care with a surgeon to follow her gastric bypass in [place]. She apparently did undergo an upper GI recently, several weeks ago, to evaluate this pain and this was reportedly unremarkable. She had an appointment with gastroenterology at this facility as an outpatient today. per H&P - Patient seen sitting up in bed essentially asymptomatic at this time. Patient has some mild right upper quadrant discomfort with palpation. She is moderately to significantly distended with gas bloat on exam. Does have bloating belching and gassiness. She denies constipation or diarrhea but does have some oily stools. History of colitis last year successfully treated with antibiotics, history of partial small bowel obstruction 2021, did see Dr. Aponte, bariatric surgeon after Eulogio-en-Y about 20 years ago and reports an unremarkable small bowel follow-through. Patient has had pain for about a year. 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 Christy. She denies any melena hematochezia or mucus in her stool. No family history of colon cancer or other GI cancers, IBD, or celiac disease. No nausea vomiting but intermittent heartburn and reflux that is controlled with medication. Last colonoscopy in 2019 at [place]. [facility] Disclaimer: The information contained in this section may have been updated after the patient was seen, as this information can be updated by other users. Medical History (Updated 04/07/24 @ 12:41 by Dina Franz APRN) ILD (interstitial lung disease) Pyelonephritis Abdominal pain Strep sore throat UTI (urinary tract infection) Type 2 diabetes mellitus Colitis Chest pain Allergic rhinitis with postnasal drip Diabetes Acute viral syndrome Sinusitis Acute viral syndrome Conjunctivitis Hernia, internal Small bowel obstruction Primary osteoarthritis of both feet Posterior tibial tendinitis of left lower extremity BMI 45.0-49.9, adult Diarrhea Nausea and vomiting Abdominal pain Left femoral shaft fracture Left ureteral calculus Patient left without being seen Onychoincurvatum Nail dystrophy Arch pain of left foot Type 2 diabetes mellitus with diabetic neuropathy, without long-term current use of insulin Acquired equinus deformity of both feet Hydronephrosis Ureteral calculi Uncontrolled pain Hydronephrosis due to obstruction of ureter Kidney stone Bronchitis Left foot pain Complaint of pain of great toe Diabetic foot Pain of right heel UTI (urinary tract infection) Omental infarction History of femur fracture Ear noise/buzzing Hearing difficulty of both ears Urinary tract infection Kidney stone Migraine COPD (chronic obstructive pulmonary disease) Asthma Hyperlipidemia Anxiety Diabetes Hypertension Depression Surgical History (Updated 04/07/24 @ 01:34 by Marko Hernandes APRN) History of gastric bypass History of knee replacement History of tubal ligation History of tonsillectomy History of hysterectomy (Unknown) History of cholecystectomy History of section Social History (Updated 04/07/24 @ 00:39 by Marko Hernandes APRN) Smoking Status: Former smoker tobacco type: cigarettes packs per day: 0 and e- cigarettes smoking status stop date: Patient stated stopped 3 years ago how long ago did patient quit smoking: Stopped 3 years ago second hand exposure: No alcohol intake: never substance use type: denies use current occupational status: employed household members: family housing: house current occupation: [employer] current occupational exposures/hazards: No caffeine: Yes Review of Systems Constitutional Constitutional: Reports system reviewed and no additional complaints, except as documented Eyes Eyes: Reports system reviewed and no additional complaints, except as documented ENT Ears, Nose, Mouth, and Throat: Reports system reviewed and no additional complaints, except as documented *Cardiovascular Cardiovascular: Reports system reviewed and no additional complaints, except as documented and Reports dyspnea *Respiratory Respiratory: Reports system reviewed and no additional complaints, except as documented and Reports dyspnea *Gastrointestinal Gastrointestinal: Reports abdominal pain, Reports belching, Reports bloating, Reports excessive flatus and Reports heartburn *Neurologic Neurologic: Reports as per [facility] Meds Home Medications and Allergies Home Medications ?Medication ?Instructions ?Recorded ?Confirmed ?Type bupropion HCl 150 mg tablet,12 hr 150 mg PO BID 08/11/18 04/07/24 History sustained-release fluoxetine 40 mg capsule 40 mg PO BID 08/11/18 04/07/24 History levothyroxine 125 mcg tablet 125 mcg PO AM 08/11/18 04/07/24 History pregabalin 150 mg capsule 150 mg PO BID 08/11/18 04/07/24 History simvastatin 5 mg tablet 5 mg PO HS 08/11/18 04/07/24 History loratadine 10 mg tablet 10 mg PO DAILY 01/08/20 04/07/24 History montelukast 10 mg tablet 10 mg PO PM 10/10/20 04/07/24 History risankizumab-rzaa 150 mg/mL 150 mg SQ Q84D 10/28/21 04/07/24 History subcutaneous pen injector budesonide-formoterol HFA 80 2 inh inhalation BID 02/07/24 04/07/24 History mcg-4.5 mcg/actuation aerosol inhaler fluticasone propionate 50 1 - 2 spray intranasal DAILY 02/07/24 04/07/24 History mcg/actuation nasal spray,suspension galcanezumab-gnlm 120 mg/mL 120 mg SQ MONTHLY 02/07/24 04/07/24 History subcutaneous pen injector (Emgality Pen) potassium chloride 10 mEq 10 meq PO DAILY 02/07/24 04/07/24 History capsule,extended release rimegepant 75 mg disintegrating 75 mg PO DAILYP PRN Migraine 02/07/24 04/07/24 History tablet (Nurtec ODT) Headache albuterol sulfate 90 mcg/actuation 2 inh inhalation Q6HP PRN 04/07/24 04/07/24 History aerosol inhaler Shortness Of Breath Or Wheezing flash glucose sensor (FreeStyle 04/07/24 04/07/24 History Niels 2 Sensor kit) furosemide 20 mg tablet 20 mg PO DAILY 04/07/24 04/07/24 History linaclotide 72 mcg capsule 72 mcg PO DAILY 04/07/24 04/07/24 History (Deborahzeschristine) nystatin-triamcinolone 100,000 1 applic topical BID 04/07/24 04/07/24 History unit/g-0.1 % topical cream pantoprazole 20 mg tablet,delayed 20 mg PO BID 04/07/24 04/07/24 History release sitagliptin phosphate 50 mg tablet 50 mg PO DAILY 04/07/24 04/07/24 History (Januvia) New Prescriptions to Start Prescriptions: Allergies Allergy/AdvReac Type Severity Reaction Status Date / Time cefdinir Allergy Severe Difficulty Verified 04/06/24 21:56 Breathing morphine (MORPHINE) Allergy Intermediate HALLUCINATI Verified 04/06/24 21:56 ONS levofloxacin (From Levaquin) Allergy Unknown Difficulty Verified 04/06/24 21:59 Breathing Exam (Inpt) Vital signs and Labs for Last 24 Hours: Temp Pulse Resp BP Pulse Ox O2 Del Method 98 F 62 18 121/76 97 Room Air 04/07/24 08:00 04/07/24 08:00 04/07/24 08:00 04/07/24 08:00 04/07/24 08:00 04/07/24 09:00 Laboratory Results - last 24 hr 04/06/24 22:19: WBC 9.4, RBC 4.30, Hgb 12.8, Hct 37.8, MCV 87.8, MCH 29.9, MCHC 34.0, RDW 13.6, Plt Count 301, MPV 7.6, Neut % (Auto) 64.9, Lymph % (Auto) 29.5, [place] % (Auto) 4.4, Eos % (Auto) 0.6, Baso % (Auto) 0.7, Neut # (Auto) 6.1, Lymph # (Auto) 2.8, [place] # (Auto) 0.4, Eos # (Auto) 0.1, Baso # (Auto) 0.1, Sodium 140, Potassium 3.3 L, Chloride 109 H, Carbon Dioxide 25, Anion Gap 9.3, BUN 14, Creatinine 0.90, Estimated Creat Clear 51, Estimated GFR 64, Est GFR ( Amer) 78, Glucose 126 H, Calcium 8.9, Total Bilirubin 0.7, AST 30, ALT 29, Alkaline Phosphatase 77, Total Protein 6.6, Albumin 3.8, Globulin 2.8, Albumin/Globulin Ratio 1.4, Lipase 62 04/06/24 22:46: Lactate 1.8 04/06/24 22:49: Urine Color Dark yellow, Urine Appearance Slightly cloudy, Urine pH 6.0, Ur Specific [place] >= 1.030, Urine Protein Negative, Urine Glucose (UA) Negative, Urine Ketones Trace, Urine Blood Negative, Urine Nitrate Negative, Urine Bilirubin Negative, Urine Urobilinogen 1.0, Ur Leukocyte Esterase 1+ A, Urine RBC None, Urine WBC 10-20, Ur Squamous Epith Cells Occasional, Urine Bacteria Trace 04/07/24 06:36: WBC 6.7 D, RBC 4.12 L, Hgb 12.5, Hct 37.1, MCV 90.2, MCH 30.3, MCHC 33.7, RDW 14.2, Plt Count 267, MPV 7.7, Neut % (Auto) 51.6, Lymph % (Auto) 40.2, [place] % (Auto) 6.2, Eos % (Auto) 1.1, Baso % (Auto) 0.9, Neut # (Auto) 3.4, Lymph # (Auto) 2.7, [place] # (Auto) 0.4, Eos # (Auto) 0.1, Baso # (Auto) 0.1, Sodium 142, Potassium 3.9, Chloride 110 H, Carbon Dioxide 27, Anion Gap 8.9, BUN 14, Creatinine 1.00, Estimated Creat Clear 46, Estimated GFR 57 L, Est GFR ( Amer) 69, Glucose 80 D, Hemoglobin A1c 5.2, Calcium 9.1, Total Bilirubin 1.0, AST 31, ALT 25, Alkaline Phosphatase 66, Total Protein 6.1 L, Albumin 3.6, Globulin 2.5, Albumin/Globulin Ratio 1.4, TSH 2.41 04/07/24 06:59: POC Glucose 83 I & O for Labs for Last 24 Hours: Intake & Output 04/04/24 04/05/24 04/06/24 04/07/24 11:59 11:59 11:59 11:59 Intake Total 100 Output Total 0 Balance 100 Weight 111.584 kg GI: Present soft, distention (Moderate to significant distention with gas bloat), tenderness (Tender to palpation right upper quadrant) and normal bowel sounds Results Labs 04/07/24 06:36 04/07/24 06:36 Labs: Laboratory Results - last 24 hr 04/06/24 22:19: WBC 9.4, RBC 4.30, Hgb 12.8, Hct 37.8, MCV 87.8, MCH 29.9, MCHC 34.0, RDW 13.6, Plt Count 301, MPV 7.6, Neut % (Auto) 64.9, Lymph % (Auto) 29.5, [place] % (Auto) 4.4, Eos % (Auto) 0.6, Baso % (Auto) 0.7, Neut # (Auto) 6.1, Lymph # (Auto) 2.8, [place] # (Auto) 0.4, Eos # (Auto) 0.1, Baso # (Auto) 0.1, Sodium 140, Potassium 3.3 L, Chloride 109 H, Carbon Dioxide 25, Anion Gap 9.3, BUN 14, Creatinine 0.90, Estimated Creat Clear 51, Estimated GFR 64, Est GFR ( Amer) 78, Glucose 126 H, Calcium 8.9, Total Bilirubin 0.7, AST 30, ALT 29, Alkaline Phosphatase 77, Total Protein 6.6, Albumin 3.8, Globulin 2.8, Albumin/Globulin Ratio 1.4, Lipase 62 04/06/24 22:46: Lactate 1.8 04/06/24 22:49: Urine Color Dark yellow, Urine Appearance Slightly cloudy, Urine pH 6.0, Ur Specific [place] >= 1.030, Urine Protein Negative, Urine Glucose (UA) Negative, Urine Ketones Trace, Urine Blood Negative, Urine Nitrate Negative, Urine Bilirubin Negative, Urine Urobilinogen 1.0, Ur Leukocyte Esterase 1+ A, Urine RBC None, Urine WBC 10-20, Ur Squamous Epith Cells Occasional, Urine Bacteria Trace 04/07/24 06:36: WBC 6.7 D, RBC 4.12 L, Hgb 12.5, Hct 37.1, MCV 90.2, MCH 30.3, MCHC 33.7, RDW 14.2, Plt Count 267, MPV 7.7, Neut % (Auto) 51.6, Lymph % (Auto) 40.2, [place] % (Auto) 6.2, Eos % (Auto) 1.1, Baso % (Auto) 0.9, Neut # (Auto) 3.4, Lymph # (Auto) 2.7, [place] # (Auto) 0.4, Eos # (Auto) 0.1, Baso # (Auto) 0.1, Sodium 142, Potassium 3.9, Chloride 110 H, Carbon Dioxide 27, Anion Gap 8.9, BUN 14, Creatinine 1.00, Estimated Creat Clear 46, Estimated GFR 57 L, Est GFR ( Amer) 69, Glucose 80 D, Hemoglobin A1c 5.2, Calcium 9.1, Total Bilirubin 1.0, AST 31, ALT 25, Alkaline Phosphatase 66, Total Protein 6.1 L, Albumin 3.6, Globulin 2.5, Albumin/Globulin Ratio 1.4, TSH 2.41 04/07/24 06:59: POC Glucose 83 Assessment and Plan *Assessment and plan (1) ILD (interstitial lung disease): Status: Acute Category: Medical Code(s): J84.9 - Interstitial pulmonary disease, unspecified (2) Intractable abdominal pain: Status: Acute Category: Medical Code(s): R10.9 - Unspecified abdominal pain (3) RUQ pain: Status: Acute Category: Medical Code(s): R10.11 - Right upper quadrant pain (4) Fatty stool: Status: Acute Category: Medical Code(s): K90.9 - Intestinal malabsorption, unspecified (5) History of gastric bypass: Status: Acute Category: Surgical Code(s): Z98.84 - Bariatric surgery status (6) Omental infarction: Status: Acute Category: Medical Code(s): K55.069 - Acute infarction of intestine, part and extent unspecified (7) Bloating: Status: Acute Category: Medical Code(s): R14.0 - Abdominal distension (gaseous) Plan 1. Right upper quadrant pain/intractable abdominal pain/bloating/fatty stools Patient has had improvement of her abdominal discomfort since admission but has been in and out of the ER recently. History of colitis a year ago successfully treated with antibiotics. History of partial small bowel obstruction a couple of years ago. Negative small bowel follow-through she reports with Dr. Aponte. History of Eulogio-en-Y gastric bypass 20 years ago. No longer on narcotic pain medications. Denies constipation or diarrhea but patient has a prescription for Linzess 72. She is also on bupropion which can slow bowel function. She is quite distended with gas bloat and tender in the right upper quadrant. She reports it often goes through to her back. Omental infarct the only thing seen on CT scan, seen by Dr. Christy and and ruled out as a surgical issue. These are usually self-limiting and the patient has had abdominal pain for a year. She is due for both colonoscopy and EGD which will need to be done outpatient. Consider gastric emptying study as an outpatient. Possible functional abdominal discomfort given her long history of symptoms, previous history of constipation and ongoing bloating distention. I will check her pancreatic elastase and I would like to see her as an outpatient in about 2 weeks.
[2024-04-07] MEDS: ACETAMINOPHEN 325MG TAB 650 MG PO (11:18)
[2024-04-07 11:23] LABS: POC Glucose,Bedside 77 (70-110)
--- NOTE | 2024-04-07 12:56 | EXP.DC.SUM ---
General Admission date:: 04/06/24 Discharge date: 04/07/24 HPI HPI HPI: Patient is a 58-year-old female who had presented to the emergency department 3 times in the past couple of days for abdominal pain. She has had intermittent abdominal pain for the past year which will often persist for several weeks. Usually self-limited. Over the past several days it has been more severe. Describes the pain in the right lower quadrant. Worse postprandially and with some movement. She was seen in the emergency department on 04/05/[address] scan. By report this revealed no acute intra-abdominal findings. . 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 At that time surgery was contacted and given the fact that segmental omental infarction is self-limited arrangements were made for outpatient management. She returned to the emergency department a few hours later with complaints of suprapubic pressure, pain, frequency, and dysuria. She was able to be managed as an outpatient. She returned to the emergency department once again a few hours later with right lower quadrant right flank pain. Laboratory studies were reassuring at that time. She was admitted for inpatient management given her intractable pain. She has had prior surgical interventions for renal calculi. She has prior admission for colitis. Interestingly, patient has previously undergone gastric bypass several decades ago. She has established care with a surgeon to follow her gastric bypass in [place]. She apparently did undergo an upper GI recently, several weeks ago, to evaluate this pain and this was reportedly unremarkable. She had an appointment with gastroenterology at this facility as an outpatient today. per H&P Patient seen sitting up in bed essentially asymptomatic at this time. Patient has some mild right upper quadrant discomfort with palpation. She is moderately to significantly distended with gas bloat on exam. Does have bloating belching and gassiness. She denies constipation or diarrhea but does have some oily stools. History of colitis last year successfully treated with antibiotics, history of partial small bowel obstruction 2021, did see Dr. Aponte, bariatric surgeon after [facility] about 20 years ago and reports an unremarkable small bowel follow-through. Patient has had pain for about a year. 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 Christy. She denies any melena hematochezia or mucus in her stool. No family history of colon cancer or other GI cancers, IBD, or celiac disease. No nausea vomiting but intermittent heartburn and reflux that is controlled with medication. Last colonoscopy in 2019 at [place]. Hospital Course Hospital Course Hospital Course: 58-year-old female with recurring abdominal pain, progressive over the past year. Admitted out of concern for possible omental infarct and severe pain. Showed improvement over course of admission. Surgery and GI were both consulted to assist with care. On evaluation, patient hemodynamically stable. No acute intervention necessary. Labs unremarkable. Stable to discharge home with close outpatient follow-up. Problems addressed as follows: Intractable pain. Showed improvement with symptomatic management. Able to advance diet. No further acute intervention at this time. Patient had some abnormal urinalysis on initial presentation. No symptoms of dysuria. Will continue to monitor. Hold on antibiotics at this time. Incidental finding on CT scan that the patient has a past history of smoking and was planning on seeing pulmonology this week for COPD/asthma. CT scan shows nonspecific interstitial pneumonitis that is slowly progressing per CT scan. Pulmonology consulted. Recommend initiating maintenance inhaler. Will follow-up as an outpatient. Anxiety/depression. Continue home regimen. History of chronic pain related to multiple surgeries., Patient noted that she is given hydrocodone by her primary care 30 at a time but she has already taken all of these, due to the increased need of her abdominal pain. Patient has been counseled to update her primary care on the use of her narcotic medicines especially during this time that has required her hospitalization due to increased pain. Total time spent on discharge 32 minutes in counseling, documentation, chart review, and direct care with patient. Exam Data for Last 24 hours Vital signs and Labs for Last 24 Hours: Temp Pulse Resp BP Pulse Ox O2 Del Method 98 F 62 18 121/76 97 Room Air 04/07/24 08:00 04/07/24 08:00 04/07/24 08:00 04/07/24 08:00 04/07/24 08:00 04/07/24 11:00 Laboratory Results - last 24 hr 04/06/24 22:19: WBC 9.4, RBC 4.30, Hgb 12.8, Hct 37.8, MCV 87.8, MCH 29.9, MCHC 34.0, RDW 13.6, Plt Count 301, MPV 7.6, Neut % (Auto) 64.9, Lymph % (Auto) 29.5, [place] % (Auto) 4.4, Eos % (Auto) 0.6, Baso % (Auto) 0.7, Neut # (Auto) 6.1, Lymph # (Auto) 2.8, [place] # (Auto) 0.4, Eos # (Auto) 0.1, Baso # (Auto) 0.1, Sodium 140, Potassium 3.3 L, Chloride 109 H, Carbon Dioxide 25, Anion Gap 9.3, BUN 14, Creatinine 0.90, Estimated Creat Clear 51, Estimated GFR 64, Est GFR ( Amer) 78, Glucose 126 H, Calcium 8.9, Total Bilirubin 0.7, AST 30, ALT 29, Alkaline Phosphatase 77, Total Protein 6.6, Albumin 3.8, Globulin 2.8, Albumin/Globulin Ratio 1.4, Lipase 62 04/06/24 22:46: Lactate 1.8 04/06/24 22:49: Urine Color Dark yellow, Urine Appearance Slightly cloudy, Urine pH 6.0, Ur Specific [place] >= 1.030, Urine Protein Negative, Urine Glucose (UA) Negative, Urine Ketones Trace, Urine Blood Negative, Urine Nitrate Negative, Urine Bilirubin Negative, Urine Urobilinogen 1.0, Ur Leukocyte Esterase 1+ A, Urine RBC None, Urine WBC 10-20, Ur Squamous Epith Cells Occasional, Urine Bacteria Trace 04/07/24 06:36: WBC 6.7 D, RBC 4.12 L, Hgb 12.5, Hct 37.1, MCV 90.2, MCH 30.3, MCHC 33.7, RDW 14.2, Plt Count 267, MPV 7.7, Neut % (Auto) 51.6, Lymph % (Auto) 40.2, [place] % (Auto) 6.2, Eos % (Auto) 1.1, Baso % (Auto) 0.9, Neut # (Auto) 3.4, Lymph # (Auto) 2.7, [place] # (Auto) 0.4, Eos # (Auto) 0.1, Baso # (Auto) 0.1, Sodium 142, Potassium 3.9, Chloride 110 H, Carbon Dioxide 27, Anion Gap 8.9, BUN 14, Creatinine 1.00, Estimated Creat Clear 46, Estimated GFR 57 L, Est GFR ( Amer) 69, Glucose 80 D, Hemoglobin A1c 5.2, Calcium 9.1, Total Bilirubin 1.0, AST 31, ALT 25, Alkaline Phosphatase 66, Total Protein 6.1 L, Albumin 3.6, Globulin 2.5, Albumin/Globulin Ratio 1.4, TSH 2.41 04/07/24 06:59: POC Glucose 83 04/07/24 11:15: POC Glucose 77 I & O for Last 24 hours: Intake & Output 04/04/24 04/05/24 04/06/24 04/07/24 23:59 23:59 23:59 23:59 Intake Total 100 / 100 Output Total 0 / 0 Balance 100 / 100 Weight 109.769 kg 111.584 kg Constitutional Constitutional: no acute distress, morbidly obese and cooperative *Routine HEENT Exam Head: Present normocephalic Eye: Present EOMI and PERRL ENT: Present mucous membranes moist *Routine Neck Exam Neck: Present supple; Absent lymphadenopathy *Routine Respiratory Exam Respiratory: Present CTA bilaterally *Routine Cardiovascular Exam Cardiovascular: Present RRR *Routine Abdominal Exam Abdominal: Present soft, normoactive bowel sounds and tenderness (Minimal, normal improvement.) *Routine Rectal Exam Patient deferred: visual exam *Routine Exam Patient deferred: external exam *Routine Extremities Exam Extremities: Absent cyanosis, clubbing or edema *Routine Skin Exam Skin: Present warm; Absent rash *Routine Neurological Exam Neurological: Present alert, oriented X3 and moving all extremities; Absent altered mental status Results Data Completed and Pending Labs on day of discharge: Labs from last 24 hours 04/07/24 04/07/24 04/07/24 11:15 06:59 06:36 WBC 6.7 D RBC 4.12 L Hgb 12.5 Hct 37.1 MCV 90.2 MCH 30.3 MCHC 33.7 RDW 14.2 Plt Count 267 MPV 7.7 Neut % (Auto) 51.6 Lymph % (Auto) 40.2 [place] % (Auto) 6.2 Eos % (Auto) 1.1 Baso % (Auto) 0.9 Neut # (Auto) 3.4 Lymph # (Auto) 2.7 [place] # (Auto) 0.4 Eos # (Auto) 0.1 Baso # (Auto) 0.1 Sodium 142 Potassium 3.9 Chloride 110 H Carbon Dioxide 27 Anion Gap 8.9 BUN 14 Creatinine 1.00 Estimated Creat Clear 46 Estimated GFR 57 L Est GFR ( Amer) 69 Glucose 80 D POC Glucose 77 83 Hemoglobin A1c 5.2 Lactate Calcium 9.1 Total Bilirubin 1.0 AST 31 ALT 25 Alkaline Phosphatase 66 Total Protein 6.1 L Albumin 3.6 Globulin 2.5 Albumin/Globulin Ratio 1.4 Lipase TSH 2.41 Urine Color Urine Appearance Urine pH Ur Specific [place] Urine Protein Urine Glucose (UA) Urine Ketones Urine Blood Urine Nitrate Urine Bilirubin Urine Urobilinogen Ur Leukocyte Esterase Urine RBC Urine WBC Ur Squamous Epith Cells Urine Bacteria 04/06/24 04/06/24 04/06/24 22:49 22:46 22:19 WBC 9.4 RBC 4.30 Hgb 12.8 Hct 37.8 MCV 87.8 MCH 29.9 MCHC 34.0 RDW 13.6 Plt Count 301 MPV 7.6 Neut % (Auto) 64.9 Lymph % (Auto) 29.5 [place] % (Auto) 4.4 Eos % (Auto) 0.6 Baso % (Auto) 0.7 Neut # (Auto) 6.1 Lymph # (Auto) 2.8 [place] # (Auto) 0.4 Eos # (Auto) 0.1 Baso # (Auto) 0.1 Sodium 140 Potassium 3.3 L Chloride 109 H Carbon Dioxide 25 Anion Gap 9.3 BUN 14 Creatinine 0.90 Estimated Creat Clear 51 Estimated GFR 64 Est GFR ( Amer) 78 Glucose 126 H POC Glucose Hemoglobin A1c Lactate 1.8 Calcium 8.9 Total Bilirubin 0.7 AST 30 ALT 29 Alkaline Phosphatase 77 Total Protein 6.6 Albumin 3.8 Globulin 2.8 Albumin/Globulin Ratio 1.4 Lipase 62 TSH Urine Color Dark yellow Urine Appearance Slightly cloudy Urine pH 6.0 Ur Specific [place] >= 1.030 Urine Protein Negative Urine Glucose (UA) Negative Urine Ketones Trace Urine Blood Negative Urine Nitrate Negative Urine Bilirubin Negative Urine Urobilinogen 1.0 Ur Leukocyte Esterase 1+ A Urine RBC None Urine WBC 10-20 Ur Squamous Epith Cells Occasional Urine Bacteria Trace DS: Diagnosis Discharge Diagnosis (1) ILD (interstitial lung disease): Status: Acute Code(s): J84.9 - Interstitial pulmonary disease, unspecified (2) Intractable abdominal pain: Status: Acute Code(s): R10.9 - Unspecified abdominal pain (3) RUQ pain: Status: Acute Code(s): R10.11 - Right upper quadrant pain (4) Fatty stool: Status: Acute Code(s): K90.9 - Intestinal malabsorption, unspecified (5) History of gastric bypass: Status: Acute Code(s): Z98.84 - Bariatric surgery status (6) Omental infarction: Status: Acute Code(s): K55.069 - Acute infarction of intestine, part and extent unspecified (7) Bloating: Status: Acute Code(s): R14.0 - Abdominal distension (gaseous) Meds Home Medications and Allergies Home Medications ?Medication ?Instructions ?Recorded ?Confirmed ?Type bupropion HCl 150 mg tablet,12 hr 150 mg PO BID 08/11/18 04/09/24 History sustained-release fluoxetine 40 mg capsule 40 mg PO BID 08/11/18 04/09/24 History levothyroxine 125 mcg tablet 125 mcg PO AM 08/11/18 04/09/24 History pregabalin 150 mg capsule 150 mg PO BID 08/11/18 04/09/24 History simvastatin 5 mg tablet 5 mg PO HS 08/11/18 04/09/24 History loratadine 10 mg tablet 10 mg PO DAILY 01/08/20 04/09/24 History montelukast 10 mg tablet 10 mg PO PM 10/10/20 04/09/24 History risankizumab-rzaa 150 mg/mL 150 mg SQ Q84D 10/28/21 04/09/24 History subcutaneous pen injector budesonide-formoterol HFA 80 2 inh inhalation BID 02/07/24 04/09/24 History mcg-4.5 mcg/actuation aerosol inhaler fluticasone propionate 50 1 - 2 spray intranasal DAILY 02/07/24 04/09/24 History mcg/actuation nasal spray,suspension galcanezumab-gnlm 120 mg/mL 120 mg SQ MONTHLY 02/07/24 04/09/24 History subcutaneous pen injector (Emgality Pen) potassium chloride 10 mEq 10 meq PO DAILY 02/07/24 04/09/24 History capsule,extended release rimegepant 75 mg disintegrating 75 mg PO DAILYP PRN Migraine 02/07/24 04/09/24 History tablet (Nurtec ODT) Headache albuterol sulfate 90 mcg/actuation 2 inh inhalation Q6HP PRN 04/07/24 04/09/24 History aerosol inhaler Shortness Of Breath Or Wheezing flash glucose sensor (FreeStyle 04/07/24 04/09/24 History Niels 2 Sensor kit) fluticasone 100 mcg-salmeterol 50 1 inh inhalation BIDRT 30 days #60 04/07/24 04/09/24 Rx mcg/dose blistr powdr for ea inhalation (Advair Diskus) furosemide 20 mg tablet 20 mg PO DAILY 04/07/24 04/09/24 History linaclotide 72 mcg capsule 72 mcg PO DAILY 04/07/24 04/09/24 History (Linzess) nystatin-triamcinolone 100,000 1 applic topical BID 04/07/24 04/09/24 History unit/g-0.1 % topical cream pantoprazole 20 mg tablet,delayed 20 mg PO BID 04/07/24 04/09/24 History release sitagliptin phosphate 50 mg tablet 50 mg PO DAILY 04/07/24 04/09/24 History (Januvia) hyoscyamine sulfate 0.125 mg tablet 0.125 mg PO QID PRN abdominal pain 04/09/24 04/09/24 Rx #120 tabs New Prescriptions to Start Prescriptions: fluticasone propion-salmeterol [Advair Diskus] Marco Antonio Acosta Allergies Allergy/AdvReac Type Severity Reaction Status Date / Time cefdinir Allergy Severe Difficulty Verified 04/09/24 12:02 Breathing morphine (MORPHINE) Allergy Intermediate HALLUCINATI Verified 04/09/24 12:02 ONS levofloxacin (From Levaquin) Allergy Unknown Difficulty Verified 04/09/24 12:02 Breathing Discharge Plan Disposition Patient Disposition: Home, Self-Care Condition: Good Follow up Plan Follow up with: Salima Gonzáles [Primary Care Provider] - 04/14/24 11:00 am Dina Franz APRN [Nurse Practitioner] - 04/21/24 1:30 pm Wale Hutchins MD [Physician] - 05/08/24 1:00 pm (With PFT and 6-minute walk testing. Please schedule prior to discharge. 05/05/24 at 1:00) Prescriptions/Medication Reconciliation: New fluticasone propion-salmeterol [Advair Diskus] 100-50 mcg/dose Blister With Device 1 inh inhalation BIDRT 30 Days Qty: 60 0RF Continued loratadine 10 mg tablet 10 mg PO DAILY Patient Comments: TAKE 1 TABLET BY MOUTH ONCE DAILY Nurtec ODT 75 mg tablet,disintegrating 75 mg PO DAILYP PRN (Reason: Migraine Headache) Patient Comments: DISSOLVE ONE TABLET in MOUTH DIRECTED NEEDED FOR MIGRAINE budesonide-formoterol 80-4.5 mcg/actuation HFA aerosol inhaler 2 inh inhalation BID Patient Comments: INHALE TWO PUFFS BY MOUTH TWICE DAILY fluticasone propionate 50 mcg/actuation spray,suspension 1 - 2 spray intranasal DAILY Patient Comments: instill 1-2 SPRAYS IN EACH NOSTRIL EVERY DAY Rx Instructions: administer 1-2 sprays into each nostril every day Emgality Pen 120 mg/mL pen injector 120 mg SQ MONTHLY potassium chloride 10 mEq capsule, extended release 10 meq PO DAILY Patient Comments: TAKE ONE CAPSULE BY MOUTH EVERY DAY Rx Instructions: patient states she only takes when she takes furosemide risankizumab-rzaa 150 MG/ML pen injector 150 mg SQ Q84D albuterol sulfate 90 mcg/actuation HFA aerosol inhaler 2 inh INHALATION Q6HP PRN (Reason: Shortness Of Breath Or Wheezing) Patient Comments: INHALE TWO PUFFS BY MOUTH EVERY 6 HOURS NEEDED FOR SHORTNESS OF BREATH OR wheezing nystatin-triamcinolone 100,000-0.1 unit/g-% cream 1 applic TOPICAL BID Patient Comments: APPLY TOPICALLY TO THE AFFECTED AREA(S) TWICE DAILY Linzess 72 mcg capsule 72 mcg PO DAILY Patient Comments: TAKE ONE CAPSULE BY MOUTH EVERY DAY Januvia 50 mg tablet 50 mg PO DAILY Patient Comments: TAKE ONE TABLET BY MOUTH EVERY DAY (DME) FreeStyle Niels 2 Sensor Kit MISCELLANEOUS Patient Comments: USE DIRECTED FOR CONTINUOUS GLUCOSE MONITORING furosemide 20 mg tablet 20 mg PO DAILY Patient Comments: TAKE ONE TABLET BY MOUTH EVERY DAY Rx Instructions: PATIENT STATES SHE TAKES NEEDED FOR EDEMA pantoprazole 20 mg tablet,delayed release (DR/EC) 20 mg PO BID Patient Comments: TAKE ONE TABLET BY MOUTH TWICE DAILY fluoxetine 40 MG capsule 40 mg PO BID bupropion HCl 150 MG tablet 150 mg PO BID simvastatin 5 MG tablet 5 mg PO HS levothyroxine 125 MCG tablet 125 mcg PO AM pregabalin 150 MG capsule 150 mg PO BID montelukast 10 MG tablet 10 mg PO PM No Action hyoscyamine sulfate 0.125 mg tablet 0.125 mg PO QID PRN (Reason: abdominal pain) Qty: 120 2RF Other Ambulatory Orders: RT walk test 6 minutes (Routine) Timeframe: 4 Weeks Facility: [facility] - Location: Respiratory Therapy Ordered By: Wale Hutchins RT complete PFT (Routine) Timeframe: 4 Weeks Facility: [facility] - Location: Respiratory Therapy Ordered By: Wale Hutchins Problem Reconciliation Problems Reviewed?: Yes Patient Discharge Instructions ACTIVITY: Continue current activity DIET: continue same diet Patient Instructions: DI for Abdominal Pain-Adult Print Language: Nepali Providers Primary Care Provider: Salima Gonzáles Admit Provider: Marco Antonio Acosta Attending Provider: Marco Antonio Acosta
--- NOTE | 2024-04-08 10:25 | SW/DCPLANNER ---
Spoke with patient on the phone. Patient stated that she is still in pain and has called her DR and has an appointment tomorrow. Patient stated that her Dr said that if her pain got worse to go back to the ER. Patient stated that she is aware of her up coming appointments and that she was able to get her medicine filled. Patient stated that she has no questions or concerns at this time. Vanessa Neri
== END 2024-04-07 15:28 | disposition home or self-care (01) ==
LOC: ER 23:18 → 2ND 04-07 00:02
PROVIDERS: Nurse Practitioner Family; Admitting Provider Internal Medicine Adolescent Medicine; Emergency Provider Emergency Medicine; PCP Family Medicine; Visit Provider Internal Medicine Adolescent Medicine
DX: J84.9 Interstitial pulmonary disease, unspecified (principal); J45.909 Unspecified asthma, uncomplicated; R10.11 Right upper quadrant pain; K90.9 Intestinal malabsorption, unspecified; Z98.84 Bariatric surgery status; K55.069 Acute infarction of intestine, part and extent unspecified; R14.0 Abdominal distension (gaseous); N30.00 Acute cystitis without hematuria; E87.6 Hypokalemia; J84.89 Other specified interstitial pulmonary diseases; R12 Heartburn; F41.9 Anxiety disorder, unspecified; F32.A Depression, unspecified; G89.4 Chronic pain syndrome; E11.9 Type 2 diabetes mellitus without complications; I10 Essential (primary) hypertension; Z86.16 Personal history of COVID-19; Z79.899 Other long term (current) drug therapy
CPT/HCPCS: 36415; 80053; 81001; 82962; 83036; 83605; 83690; 84443; 85025; 87086; 99285; G0378; J1885; J2405

== ENCOUNTER 2024-04-10 14:10 | Outpatient (POV) | payer MEDICARE, SELFPAY ==
--- OUTSIDE RECORDS SUMMARY | 2024-04-10 14:12 | XMS_ITS | Encounter Summary ---
Author Organization [facility] Address [address] [place] [address] Care Team Providers Care Strap Folding Machine Operator Name Role Phone Eliecer Salima Garcia Primary Care Provider [phone] Reason for Referral * Cardiac (Routine) - Closed Specialty Diagnoses / Procedures Referred By Josep t Referred To Contact Diagnoses Palpitations Procedures Holter Monitor - 72 Hour Up To 15 Days Alea Juarez APRN [address] [facility] [address] Phone: tel: fax: [facility] [address] [place] [address] Phone: tel: Referral ID Status Reason Start Date Expiration Date Visits Re quested Visits Authorized [id number] Closed 08/01/2023 07/31/2024 1 1 Reason for Visit * Reason Comments Shortness of Breath Pt last seen 023 with abnormal stress. Continue to have c/o SOA.. Encounter Details Date Type Department Care Team (Late st Contact Info) Description 08/01/2023 9:00 AM EDT Office Visit [facility] [...] mild COPD. She has not seen a sock folder recently. Uses albuterol nebulizers daily. She is [...] moderate amount of total coronary plaque present. desk monitor 11/20/2022-average heart rate 73 bpm, minimum [...] Blood Gluc Sensor (FreeStyle Niels 2 Sensor) [facility], USE DIRECTED FOR CONTINUOUS GLUCOSE MONITORING, Disp: [...] for this exam include palpitations. Total beats: [id number]. Average HR: 69. Min HR: 40. Max HR: 127. Study Impressions A relatively benign monitor study. Rare nonsustained SVT. Patient triggers corresponded with supraventricular couplets or PACs. These were overall less than 1%. No life-threatening arrhythmias or pauses. See raw data for further information. Alea Juarez APRN [facility] Final Result * ECG 12-LEAD (08/01/2023) Narrative [...] of mild COPD. She hasnot seen a sock folder recently. Uses albuterol nebulizers daily. Sheis not [...] moderate amount of total coronary plaque present. desk monitor 11/20/2022-average heart rate 73 bpm, minimum [...] Blood Gluc Sensor (FreeStyle Niels 2 Sensor) [facility] [place], USE ASDIRECTED FOR CONTINUOUS GLUCOSE MONITORING, Disp: [...] Palpitations documented in this encounter Care Teams Strap Folding Machine Operator Relationship Specialty Start Date End Date Salima Gonzáles DO [facility] [place] [address] PCP - General Family Medicine 02/21/17 documented as of this encounter
--- OUTSIDE RECORDS SUMMARY | 2024-04-10 14:12 | XMS_ITS | Clinical Summary ---
[facility] Address [address] [place] [address] Care Team Providers Care Whitesmith Name Role Phone Eliecer Salima Radha Primary Care Provider [phone] Allergies Active Allergy Reactions Criticality Noted Date [...] patient to restart PAP therapy and contact Make YES! Happen to find a better mask that does not cause migraines. 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 Encouraged patient to restart PAP therapy and contact Make YES! Happen to find a better mask that does not cause migraines. Resolved Problems Problem Noted Date Diagnosed Date Resolved Date Back pain 01/26/2024 01/27/2024 Encounters Date Type Department Care Team Description 01/26/2024 12:25 AM EDT - 01/27/2024 2:41 PM EDT Emergency [address] [place] [address] Kris Bird MD Scott, Emma [...] of 2) 2014 ANNUAL WELLNESS VISIT 02/21/2017 HEPATITIS C SCREENING 02/21/2017 PAP SMEAR [...] URINE CULTURE STAT 01/25/2024 11:53 PM EDT [facility] ILL/INJURED PATIENT INIT 30-74 MIN Routine 01/25/2024 11:51 PM EDT from Last 3 Months Results * POC Glucose Once (01/27/2024 10:48 AM EDT) Only the most recent of3 resultswithin the time period is included. Glucose 98 70 - 130 mg/dL 01/27/2024 10:52 AM EDT [facility] Blood 01/27/2024 10:4 8 AM EDT 01/27/2024 10:52 AM EDT Nabil Guerrero MD POINT OF CARE TEST ORDERABLES Final Result [facility]
[address] [place] [address], * (ABNORMAL) Comprehensive Metabolic Panel (01/27/2024 6:05 AM EDT) Only the most recent of2 resultswithin the time period is included. Glucose 76 65 - 99 mg/dL 01/27/2024 7:02 AM EDT [facility] BUN 18 6 - 20 mg/dL 01/27/2024 7:02 AM EDT [facility] Creatinine 0.98 0.57 - 1.00 mg/dL 01/27/2024 7:02 AM EDT [facility] Sodium 143 136 - 145 mmol/L 01/27/2024 7:02 AM EDT [facility] Potassium 4.3 3.5 - 5.2 mmol/L 01/27/2024 7:02 AM EDT [facility] Chloride 107 98 - 107 mmol/L 01/27/2024 7:02 AM EDT [facility] CO2 29.0 22.0 - 29.0 mmol/L 01/27/2024 7:02 AM EDT [facility] Calcium 8.4(L) 8.6 - 10.5 mg/dL 01/27/2024 7:02 AM EDT [facility] Total Protein 5.3(L) 6.0 - 8.5 g/dL 01/27/2024 7:02 AM EDT [facility] Albumin 3.4(L) 3.5 - 5.2 g/dL 01/27/2024 7:02 AM EDT [facility] ALT (SGPT) 32 1 - 33 U/L 01/27/2024 7:02 AM EDT [facility] AST (SGOT) 22 1 - 32 U/L 01/27/2024 7:02 AM EDT [facility] Alkaline Phosphatase 112 39 - 117 U/L 01/27/2024 7:02 AM EDT [facility] Total Bilirubin 0.4 0.0 - 1.2 mg/dL 01/27/2024 7:02 AM EDT [facility] Globulin 1.9 gm/dL 01/27/2024 7:02 AM EDT [facility] Comment:Calculated Result A/G Ratio 1.8 g/dL 01/27/2024 7:02 AM EDT [facility] BUN/Creatinine Ratio 18.4 7.0 - 25.0 01/27/2024 7:02 AM EDT [facility] Anion Gap 7.0 5.0 - 15.0 mmol/L 01/27/2024 7:02 AM EDT [facility] eGFR 66.6 >60.0 mL/min/1.7 3 01/27/2024 7:02 AM EDT [facility] Blood Venipuncture / Unknown 01/27/2024 6:05 AM EDT 01/27/2024 6:17 AM EDT Narrative [facility] - 01/27/2024 7:02 AM EDT GFR Normal >60 Chronic Kidney Disease <60 Kidney Failure <15 us Ambika Arreaga MD LAB BLOOD ORDERABLES Final Resul t [facility]
[address] [place] [address], * US Liver (01/26/2024 4:58 AM EDT) Anatomical Region Laterality Modality Body, Abdomen Ultrasound 01/26/2024 5:09 AM EDT Impressions 01/26/2024 5:13 AM EDT Impression: Normal common duct. Electronically Signed: Junior Boo MD 01/26/2024 5:13 AM EDT Workstation ID: [id number] Narrative 01/26/2024 5:13 AM EDT US LIVER [...] The right kidney is 8.9 cm in hjqy-ns-spnz length and there is no hydronephrosis. There [...] normal.The right kidney is 8.9 cm in wikw-kz-vyqz length and there is nohydronephrosis. There is a small exophytic cyst measuring about 2 cm. The pancreas is incompletely seen secondary toshadowing from overlying bowel gas. IMPRESSION: Impression: Normal common duct. Electronically Signed: Junior Boo MD 01/26/2024 5:13 AM EDT Workstation ID: [id number] Ambika Arreaga MD [facility] US ORDERABLES Final Result * Blood Culture - Blood, Arm, Right (01/26/2024 2:00 AM EDT) Only the most recent of2 resultswithin the time period is included. Blood Culture No growth at 5 days 01/31/2024 7:00 AM EDT [facility] Blood Structure of right upper limb / Unknown Venipuncture / Unknown 01/26/2024 2:00 AM EDT 01/26/2024 6:51 AM EDT us Kris Bird MD MICROBIOLOGY - GENERAL ORDERABLE S Final Result [facility]
[address] [place] [address], * CT Abdomen Pelvis Without Contrast (01/26/2024 1:01 AM EDT) Anatomical Region Laterality Modality Abdomen, Pelvis N/A Computed Tomogra phy 01/26/2024 1:38 AM EDT Impressions 01/26/2024 1:44 AM EDT Impression: 1.Faint left lower lobe nodular airspace opacities suggestive of infectious process. 2.No acute abdominal or pelvic abnormality. 3.Bilateral fat-containing inguinal hernias. Electronically Signed: Junior Boo MD 01/26/2024 1:44 AM EDT Workstation ID: [id number] Narrative 01/26/2024 1:[address] ABDOMEN [...] MD 01/26/2024 1:44 AM EDT Workstation ID: [id number] us Kris Bird MD IMG CT ORDERABLES Final Result * (ABNORMAL) CBC Auto Differential (01/26/2024 12:38 AM EDT) [facility] WBC 11.38(H) 3.40 - 10.80 10*3/mm3 01/26/2024 1:14 AM EDT [facility] RBC 3.71(L) 3.77 - 5.28 10*6/mm3 01/[facility]24 [facility] Hemoglobin 12.3 12.0 - 15.9 g/dL 01/26/2024 1:[facility] Hematocrit 35.6 34.0 - 46.6 % 01/26/2024 1:14 [facility] MCV 96.0 79.0 - 97.0 fL 01/26/2024 1:14 [facility] MCH 33.2(H) 26.6 - 33.0 pg 01/26/2024 1:14 AM [facility] MCHC 34.6 31.5 - 35.7 g/dL 01/26/2024 1:14 AM [facility] RDW 14.3 12.3 - 15.4 % 01/26/2024 1:14 AM [facility] RDW-SD 46.9 37.0 - 54.0 fl 01/26/2024 1:14 AM [facility] MPV 9.9 6.0 - 12.0 fL 01/26/2024 1:14 AM [facility] Platelets 349 140 - 450 10*3/mm3 01/26/2024 1:14 [facility] Neutrophil % 60.9 42.7 - 76.0 % 01/26/2024 1:14 [facility] Lymphocyte % 30.6 19.6 - 45.3 % 01/26/2024 1:14 [facility] Monocyte % 5.7 5.0 - 12.0 % 01/26/2024 1:14 [facility] Eosinophil % 0.9 0.3 - 6.2 % 01/26/2024 1:14 [facility] Basophil % 0.6 0.0 - 1.5 % 01/26/2024 1:14 AM EDT [facility] Immature Grans % 1.3(H) 0.0 - 0.5 % 01/26/2024 1:14 AM EDT [facility] Neutrophils, Absolute 6.93 1.70 - 7.00 10*3/mm3 01/26/2024 1:14 AM EDT [facility] Lymphocytes, Absolute 3.48(H) 0.70 - 3.10 10*3/mm3 01/26/2024 1:14 AM EDT [facility] Monocytes, Absolute 0.65 0.10 - 0.90 10*3/mm3 01/26/2024 1:14 AM EDT [facility] Eosinophils, Absolute 0.10 0.00 - 0.40 10*3/mm3 01/26/2024 1:14 AM EDT [facility] Basophils, Absolute 0.07 0.00 - 0.20 10*3/mm3 01/26/2024 1:14 AM EDT [facility] Immature Grans, Absolute 0.15(H) 0.00 - 0.05 10*3/mm3 01/26/2024 1:14 AM EDT [facility] nRBC 0.0 0.0 - 0.2 /100 WBC 01/26/2024 1:14 AM EDT [facility] Blood Structure of right upper limb / Unknown Venipuncture / Unknown 01/26/2024 12:38 AM EDT 01/26/2024 1:11 AM EDT us Kris Bird MD LAB BLOOD ORDERABLES Final Resul t [facility]
[address] [place] [address], * (ABNORMAL) Lipase (01/26/2024 12:38 AM EDT) Lipase 109(H) 13 - 60 U/L 01/26/2024 1:31 AM EDT [facility] Blood Structure of right upper limb / Unknown Venipuncture / Unknown 01/26/2024 12:38 AM EDT 01/26/2024 1:09 AM EDT Kris Bird MD LAB BLOOD ORDERABLES Final Resul t Performing Organization Address [facility] de Phone Number [facility]
[address] [place] [address], * Lactic Acid, Plasma (01/26/2024 12:38 AM EDT) Lactate 1.6 0.5 - 2.0 mmol/L 01/26/2024 1:27 AM EDT [facility] Comment:Falsely depressed re sults may occur on samples drawn from patients receiving N-Acetylcysteine (NAC) or Metamizole. Blood Structure of right upper limb / Unknown Venipuncture / Unknown 01/26/2024 12:38 AM EDT 01/26/2024 1:09 AM EDT Kris Bird MD LAB BLOOD ORDERABLES Final Resul t Performing Organization Address [facility] de Phone Number [facility]
[address] [place] [address], * CK (01/26/2024 12:38 AM EDT) Creatine Kinase 70 20 - 180 U/L 01/26/2024 4:25 AM EDT [facility] Blood Structure of right upper limb / Unknown Venipuncture / Unknown 01/26/2024 12:38 AM EDT 01/26/2024 1:09 AM EDT Ambika Arreaga MD LAB BLOOD ORDERABLES Final Resul t Performing Organization Address [facility] de Phone Number [facility]
[address] [place] [address], * LABS SCANNED (01/26/2024) [facility] LAB BLOOD ORDERABLES Final Re sult * (ABNORMAL) Urinalysis, Microscopic Only - Urine, Clean Catch (01/25/2024 11:53 PM EDT) RBC, UA 0-2 None Seen, 0-2 /HPF 01/26/2024 12:53 AM EDT [facility] WBC, UA 21-50(A) None Seen, 0-2 /HPF 01/26/2024 12:53 AM EDT [facility] Bacteria, UA None Seen None Seen, Trace /HPF 01/26/2024 12:53 AM EDT [facility] Squamous Epithelial Cells, UA 3-6(A) None Seen, 0-2 /HPF 01/26/2024 12:53 AM EDT [facility] Hyaline Casts, UA 0-6 0 - 6 /LPF 01/26/2024 12:53 AM EDT [facility] Methodology Manual Light Microscopy 01/26/2024 12:53 AM EDT [facility] Urine Urine specimen obtained by clean catch procedure / Unknown Collection / Unknown 01/25/2024 11:53 PM EDT 01/26/2024 12:24 AM EDT Kris Bird MD URINE ORDERABLES Final Result [facility]
[address] [place] [address], * (ABNORMAL) Urinalysis With Microscopic If Indicated (No Culture) - Urine, Clean Catch (01/25/2024 11:53 PM EDT) Color, UA Yellow Yellow, Straw 01/26/2024 12:53 AM EDT [facility] Appearance, UA Cloudy(A) Clear 01/26/2024 12:53 AM EDT [facility] pH, UA 5.5 5.0 - 8.0 01/26/2024 12:53 AM EDT [facility] Specific [place], UA 1.013 1.001 - 1.030 01/26/2024 12:53 AM EDT [facility] Glucose, UA Negative Negative 01/26/2024 12:53 AM EDT [facility] Ketones, UA Negative Negative 01/26/2024 12:53 AM EDT [facility] Bilirubin, UA Negative Negative 01/26/2024 12:53 AM EDT [facility] Blood, UA Negative Negative 01/26/2024 12:53 AM EDT [facility] Protein, UA Negative Negative 01/26/2024 12:53 AM EDT [facility] Leuk Esterase, UA Large (3+)(A) Negative 01/26/2024 12:53 AM EDT [facility] Nitrite, UA Negative Negative 01/26/2024 12:53 AM EDT [facility] Urobilinogen, UA 0.2 E.U./dL 0.2 - 1.0 E.U./dL 01/26/2024 12:53 AM [facility] Urine Urine specimen obtained by clean catch procedure / Unknown Collection / Unknown 01/25/2024 11:53 PM EDT 01/26/2024 12:24 AM EDT us Kris Bird MD URINE ORDERABLES Final Result [facility]
[address] [place] [address], * Urine Culture - Urine, Urine, Clean Catch (01/25/2024 11:53 PM EDT) Urine Culture 50,000 CFU/mL Normal Urogenital Rosa Elena JAVAN 01/27/2024 11:27 AM EDT [facility] Urine Urine specimen obtained by clean catch procedure / Unknown Collection / Unknown 01/25/2024 11:53 PM EDT 01/26/2024 12:24 AM EDT Narrative [facility] - 01/27/2024 11:27 AM EDT Colonization of the urinary tract without infection is common. Treatment is discouraged unless the patient is symptomatic, , or undergoing an invasive urologic procedure. Ambika Arreaga MD MICROBIOLOGY - GENERAL ORDERABLE S Final Result [facility]
[address] [place] [address], * [place] CRITICAL CARE ILL/INJURED PATIENT INIT 30-74 MIN [...] Final Result from Last 3 Months Insurance [employer] MEDICARE [employer]VANTAGE Advance Directives * CPR (Attempt to Resuscitate) (Latest Code Status on File) Date Activated Date Inactivated Comments 01/26/2024 4:20 AM 01/27/2024 4:42 PM Question Answer Comments Code Status (Patient has no pulse and is not breathing): CPR (Attempt to Resuscitate) Medical Interventions (Patie nt has pulse or is breathing): Full Support Level Of Support Discussed With: Patient Care Teams Whitesmith Relationship Specialty Start Date End Date Salima Gonzáles DO [facility] [place] [address] PCP - General Family Medicine 02/21/17
--- OUTSIDE RECORDS SUMMARY | 2024-04-10 14:12 | XMS_ITS | Encounter Summary ---
[facility] Address [address] [place] [address] Care Team Providers Care Hair Designer Name Role Phone Salima Gonzáles DO Primary Care Provider [phone] Encounter Details Date Type Department Care Team (Late st Contact Info) Description 02/28/2023 Telephone [facility] [address] [place] [address] Alea Juarez, [employer] [address] [place] [address] Social History Tobacco Use Types Packs/Day [...] on filedocumented in this encounter Care Teams Hair Designer Relationship Specialty Start Date End Date Salima Gonzáles DO [facility] [place] [address] PCP - General Family Medicine 02/21/17 documented as of this encounter
--- OUTSIDE RECORDS SUMMARY | 2024-04-10 14:12 | XMS_ITS | Encounter Summary ---
[facility] Address [address] [place] [address] Care Team Providers Care Psychiatric Orderly Name Role Phone Eliecer Salima Radha Primary Care Provider [phone] Reason for Visit * Diagnostic Imaging (Routine) - Closed Specialty Diagnoses / Procedures Referred By Contac t Referred To Contact Diagnoses Precordial chest pain Shortness of breath Palpitations Procedures Adult Transthoracic Echo Complete W/ Cont if Necessary Per Protocol Alea Juarez APRN [address] [place] [address] Phone: tel: fax: [facility] [place] [address] [address] [address] Phone: tel: fax: Referral ID Status Reason Start Date Expiration Date Visits Re quested Visits Authorized [id number] Closed 12/13/2022 12/13/2023 1 1 Encounter Details Date Type Department Care Team (Latest Contact Info) Description 02/08/2023 2:45 PM EDT Ancillary Procedure [facility] [address] [address] [...] Palpitations documented in this encounter Care Teams Psychiatric Orderly Relationship Specialty Start Date End Date Salima Gonzáles DO [address] [place] [address] PCP - General Family Medicine 02/21/17 documented as of this encounter
--- OUTSIDE RECORDS SUMMARY | 2024-04-10 14:12 | XMS_ITS | Encounter Summary ---
[facility] Address [address] [place] [address] Care Team Providers Care Decorator Mannequin Name Role Phone Eliecer Salima Radha Primary Care Provider [phone] Reason for Referral * MRI/CAT/PET Scan (Routine) - Closed Specialty Diagnoses / Procedures Referred By Contac t Referred To Contact Diagnoses Abnormal nuclear stress test Precordial chest pain Abnormal findings on diagnostic imaging of heart and coronary circulation Procedures CT Coronary FFR CTA Data JOHNNIE [employer] GNRJ Estimated FFR Model Alea Juarez APRN [address] [address] Phone: tel: fax: RADIOLOGY [address] [place] [address] Phone: tel: fax: Referral ID Status Reason Start Date Expiration Date Visits Re quested Visits Authorized [id number] Closed 02/12/2023 02/12/2024 1 1 Reason for Visit * Reason Comments Palpitations Follow up ECHO and S tress Encounter Details Date Type Department Care Team (Late st Contact Info) Description 02/12/2023 2:30 PM EDT Office Visit [facility] [address] [...] anterior ischemia. Overall still low risk study. 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 nystatin (MYCOSTATIN) [id number] UNIT/GM cream, , Disp: , Rfl: ??? nystatin-triamcinolone (MYCOLOG II) 883963-6.1 UNIT/GM-% cream, , Disp: , Rfl: ??? [...] Palpitations documented in this encounter Care Teams Decorator Mannequin Relationship Specialty Start Date End Date Salima Gonzáles DO [address] [place] [address] PCP - General Family Medicine 02/21/17 documented as of this encounter
--- OUTSIDE RECORDS SUMMARY | 2024-04-10 14:12 | XMS_ITS | Encounter Summary ---
[facility] Address [address] [place] [id number] Care Team Providers Care Paint Coating Machine Operator Name Role Phone Salima Gonzáles Primary Care Provider [phone] Reason for Visit * Reason Comments Flank Pain * Auth/Cert (Routine) Specialty Diagnoses / Procedures Referred By Contac t Referred To Contact Diagnoses Back pain Referral ID Status Reason Start Date Expiration Date Visits Re quested Visits Authorized [id number] 1 1 Encounter Details Date Type Department Care Team (Late st Contact Info) Description 01/26/2024 12:25 AM EDT - 01/27/2024 2:41 PM EDT Emergency [address] [place] [address] Kris Bird MD [address] [place] [address] Ambika Arreaga MD [address] [address] Pebbles Beauchamp DO [address] [address] Nabli Guerrero MD [address] [address] Hypotension due to hypovolemia (Primary Dx); Pyelonephritis [...] this encounter Discharge Summaries * Jen Ojeda, SLIPMAN - 01/27/2024 12:16 PM EDT Images from the original note were not included. [facility] Medicine Services DISCHARGE SUMMARY Patient Name: [...] Date/Time Blood Culture - Blood, Arm, Right [[id number]] (Normal) Collected: 01/26/24 0200 Lab Status: Preliminary result Specimen: Blood from Arm, Right Updated: 01/27/24 0700 Blood Culture No growth at 24 hours Blood Culture - Blood, Arm, Left [[id number]] (Normal) Collected: 01/26/24 0150 Lab Status: Preliminary result Specimen: Blood from Arm, Left Updated: 01/27/24 0700 Blood Culture No growth at 24 hours Urine Culture - Urine, Urine, Clean Catch [[id number]] Collected: 01/25/24 2353 Lab Status: Final result [...] The right kidney is 8.9 cm in ezdi-ta-wlws length and there is no hydronephrosis. There is a small exophytic cyst measuring about 2 cm. The pancreas is incompletely seen secondary to shadowing from overlying bowel gas. Impression: Normal common duct. Electronically Signed: Junior Boo MD 01/26/2024 5:13 AM EDT Workstation ID: [id number] CT Abdomen Pelvis Without Contrast Result Date: [...] MD 01/26/2024 1:44 AM EDT Workstation ID: [id number] Results for orders placed in visit on [...] 2 Times Daily FreeStyle Niels 2 Sensor [facility] USE DIRECTED FOR CONTINUOUS GLUCOSE MONITORING furosemide [...] minutes on this discharge activity which included: [id number] with the patient, reviewing the data in [...] included. Acute Care - Occupational Therapy Discharge [facility] Patient Name: Neetu Doherty : 1965 [...] Bed Mobility Bed Mobility supine-sit - Supine-Sit Schley (Bed Mobility) modified independence - Assistive Device (Bed Mobility) head of bed elevated -[facility] Name 01/27/24945 Transfers Transfers sit-stand transfer -[facility] Name 01/27/24945 Sit-Stand Transfer Sit-Stand Schley (Transfers) standby assist - Assistive Device (Sit-Stand Transfers) other (see comments) none - Row Name 01/27/24945 Functional Mobility Functional Mobility- Ind. Level contact guard assist - Functional Mobility-Distance (Feet) -- in hallway - Functional Mobility- Comment Slight unsteadiness noted with mobility-defer to PT -[facility] Name 01/27/24945 Activities of Daily Living BADL Assessment/Intervention lower body dressing -[facility] 01/27/24945 Lower Body Dressing Assessment/Training Schley Level (Lower Body Dressing) don;socks;independent - Position (Lower Body Dressing) long sitting - User Gottlieb (r) = Recorded By, (t) = Taken By, (c) = Cosigned By Initials Name Provider Type Jacque Thorpe, OT Occupational Therapist Obj/Interventions Row Name 01/27/24946 Sensory Assessment (Somatosensory) Sensory Assessment (Somatosensory) UE sensation intact -[facility] Name 01/27/24946 Range of Motion Comprehensive General Range of Motion bilateral upper extremity ROM WFL -[facility] Name 01/27/24946 Strength Comprehensive (MMT) General Manual Muscle Testing (MMT) Assessment no strength deficits identified -[facility] Name 01/27/24946 Balance Balance Assessment sitting static [...] Standing -JR Post Patient Position Sitting -[facility] Name 01/27/24946 Positioning and Restraints Pre-Treatment Position [...] Nurse Occupational Therapy Education Title: PT OT SISTER SUPERIOR Therapies (In Progress) Topic: Occupational Therapy (In [...] Description Service Date Service Provider Modifiers Qty [id number] OT EVAL LOW COMPLEXITY 3 01/27/2024 Jacque [...] Care Everywhere. * Amoxicillin; Clavulanic Acid Tablets (Namibian) * Urinary Tract Infection Adult (Namibian) * Acute Back Pain Adult (Namibian) documented in this encounter Medications at Time [...] Times a Day. Continuous Blood Gluc Sensor (ArvinasStyle Niels 2 Sensor) [facility] USE DIRECTED FOR CONTINUOUS GLUCOSE MONITORING 01/23/2023 [...] from the original note were not included. [facility] Medicine Services ADMISSION FOLLOW-UP NOTE Patient admitted after midnight, H&P by my partner performed earlier on today's date reviewed. Interim findings, labs, and charting also reviewed. [facility] Problem List has been managed and [...] from the original note were not included. [facility] Medicine Services HISTORY AND PHYSICAL Patient [...] prior kidney stones. She was diagnosed at [facility] 2 weeks ago with UTI in setting of these symptoms, put on levaquin at that time with no improvement in symptoms. Went to [facility] ER last week with back pain treated [...] Urinalysis Squamous Epithelial Cells, UA 3-6 Specific [place], UA 1.013 Ketones, UA Negative Blood, UA [...] MD 01/26/2024 1:44 AM EDT Workstation ID: [id number] Results for orders placed in visit on [...] Taken 01/26/2024 1600 by Abshear, Chai N, clam grader Interventions: medication offered but refused Taken 01/26/2024 1400 by Chai Martinez, clam grader Interventions: see MAR Taken 01/26/2024 1003 by Chai Martinez, clam grader Interventions: see MAR Goal Outcome Evaluation: Pain [...] #: 14 ED Nurse Phone Extension - [phone] or may call [phone]. HPI: Chief Complaint Patient presents with Flank [...] Procedure Abnormality Status --------- ------ CBC Auto Differential[[id number]] Abnormal Final result Please view results for [...] 0407) Last NIH score: Dysphagia screening results: [place] Coma Scale: No data recorded CIWA: Restraint [...] Mobility Row Name 01/27/24901 Sit-Stand Transfer Sit-Stand Schley (Transfers) standby assist -NS Row Name 01/27/24901 Gait/Stairs (Locomotion) Schley Level (Gait) contact guard -NS Distance in [...] Gabby Dunham PT Physical Therapist Outcome Measures [facility] Name 01/27/2490101/27/24 08 How much help from [...] 8 --> Walked 250 feet or more -ND Row Name 01/27/24 0949 01/27/24901 Functional Assessment Outcome Measure Options AM-PAC 6 Clicks Daily Activity (OT) - AM-PAC 6 Clicks Basic Mobility (PT)-PATRICE User Gottlieb (r) = Recorded By, (t) = Taken By, (c) = Cosigned By Initials Name Provider Type Jacque Thorpe, OT Occupational Therapist Chai Angel, RN Registered Nurse Gabby Dunham PT Physical Therapist Physical Therapy Education Title: PT OT SISTER SUPERIOR Therapies (In Progress) Topic: Physical Therapy (In [...] Re-Cert Due Date 02/05/24 -NS Timed Charges 69650 - Gait Training Minutes 13 -NS Total Minutes Timed Charges Total Minutes 13 -NS Total Minutes 13 -NS User Gottlieb (r) = Recorded By, (t) = Taken By, (c) = Cosigned By Initials Name Provider Type Gabby Dunham, PT Physical Therapist Therapy Charges for Today Code Description Service Date Service Provider Modifiers Qty 85016103243 HC GAIT TRAINING EA 15 MIN 01/27/2024 [...] Name 01/26/24 1526 Bed Mobility Bed Mobility yngjgl-pkk-mwlqao -AC Ttntva-Mry-Vstdto Schley (Bed Mobility) standby assist;verbal cues;nonverbal cues (demo/gesture) - Assistive Device (Bed Mobility) head of bed elevated -AC Comment, (Bed Mobility) Pt educated on log roll technique in order to decrease LBP - Row Name 01/26/24 1526 Sit-Stand Transfer Sit-Stand Schley (Transfers) standby assist -AC Assistive Device (Sit-Stand Transfers) other (see comments) no AD -AC Row Name 01/26/24 1526 Gait/Stairs (Locomotion) Schley Level (Gait) contact guard;verbal cues;nonverbal cues (demo/gesture) [...] PT) sit to supine/supine to sit -AC Schley Level/Cues Needed (Bed Mobility Goal 1, PT) independent -AC Time Frame (Bed Mobility Goal 1, PT) short term goal (STG);5 days -AC Row Name 01/26/24 153 Transfer Goal 1 (PT) Activity/Assistive Device (Transfer Goal 1, PT) pkk-fj-avezb/bjzln-rj-dzr -AC Schley Level/Cues Needed (Transfer Goal 1, PT) independent -AC Time Frame (Transfer Goal 1, PT) director of clinical education goal (LTG);10 days -AC Row Name 01/26/24 153 Gait Training Goal 1 (PT) Activity/Assistive Device (Gait Training Goal 1, PT) gait (walking locomotion);decrease fall risk;improve balance and speed;increase endurance/gait distance;increase energy conservation -AC Schley Level (Gait Training Goal 1, PT) independent -AC Distance (Gait Training Goal 1, PT) 200 -AC Time Frame (Gait Training Goal 1, PT) director of clinical education goal (LTG);10 days -AC Row Name 01/26/24 [...] Therapist Physical Therapy Education Title: PT OT SISTER SUPERIOR Therapies (In Progress) Topic: Physical Therapy (In [...] Minutes- PT 10 minute(s) -AC Timed Charges 53608 - Gait Training Minutes 10 -AC Untimed [...] Description Service Date Service Provider Modifiers Qty 18905794434 HC GAIT TRAINING EA 15 MIN 01/26/2024 Irene Marroquin, PT GP 1 26872058270 HC PT EVAL LOW COMPLEXITY 3 01/26/2024 [...] URINE CULTURE STAT 01/25/2024 11:53 PM EDT [place] [facility]/INJURED PATIENT INIT 30-74 MIN Routine 01/25/2024 11:51 PM EDT documented in this encounter Results * POC Glucose Once (01/27/2024 10:48 AM EDT) Glucose 98 70 - 130 mg/dL 01/27/2024 10:52 AM EDT [facility] Blood 01/27/2024 10:4 8 AM EDT 01/27/2024 10:52 AM EDT Nabil Guerrero MD POINT OF CARE TEST ORDERABLES Final Result [facility]
[address] [place] [address], * (ABNORMAL) Comprehensive Metabolic Panel (01/27/2024 6:05 AM EDT) Glucose 76 65 - 99 mg/dL 01/27/2024 7:02 AM EDT [facility] BUN 18 6 - 20 mg/dL 01/27/2024 7:02 AM EDT [facility] Creatinine 0.98 0.57 - 1.00 mg/dL 01/27/2024 7:02 AM EDT [facility] Sodium 143 136 - 145 mmol/L 01/27/2024 7:02 AM EDT [facility] Potassium 4.3 3.5 - 5.2 mmol/L 01/27/2024 7:02 AM EDT [facility] Chloride 107 98 - 107 mmol/L 01/27/2024 7:02 AM EDT [facility] CO2 29.0 22.0 - 29.0 mmol/L 01/27/2024 7:02 AM EDT [facility] Calcium 8.4(L) 8.6 - 10.5 mg/dL 01/27/2024 7:02 AM EDT [facility] Total Protein 5.3(L) 6.0 - 8.5 g/dL 01/27/2024 7:02 AM EDT [facility] Albumin 3.4(L) 3.5 - 5.2 g/dL 01/27/2024 7:02 AM EDT [facility] ALT (SGPT) 32 1 - 33 U/L 01/27/2024 7:02 AM EDT [facility] AST (SGOT) 22 1 - 32 U/L 01/27/2024 7:02 AM EDT [facility] Alkaline Phosphatase 112 39 - 117 U/L 01/27/2024 7:02 AM EDT [facility] Total Bilirubin 0.4 0.0 - 1.2 mg/dL 01/27/2024 7:02 AM EDT [facility] Globulin 1.9 gm/dL 01/27/2024 7:02 AM EDT [facility] Comment:Calculated Result A/G Ratio 1.8 g/dL 01/27/2024 7:02 AM EDT [facility] BUN/Creatinine Ratio 18.4 7.0 - 25.0 01/27/2024 7:02 AM EDT [facility] Anion Gap 7.0 5.0 - 15.0 mmol/L 01/27/2024 7:02 AM EDT [facility] eGFR 66.6 >60.0 mL/min/1.7 3 01/27/2024 7:02 AM EDT [facility] Blood Venipuncture / Unknown 01/27/2024 6:05 AM EDT 01/27/2024 6:17 AM EDT Narrative [facility] - 01/27/2024 7:02 AM EDT GFR Normal >60 Chronic Kidney Disease <60 Kidney Failure <15 Ambika Arreaga MD LAB BLOOD ORDERABLES Final Resul t [facility]
[address] [place] [address], * POC Glucose Once (01/26/2024 10:26 PM EDT) Glucose 85 70 - 130 mg/dL 01/26/2024 10:28 PM EDT [facility] Blood 01/26/2024 10:2 6 PM EDT 01/26/2024 10:28 PM EDT Pebbles Beauchamp DO POINT OF CARE TEST ORD ERABLES Final Result Performing Organization Address City/[facility]/ZIP Co de Phone Number [facility]
[address] [place] [address], [place] [phone] * POC Glucose Once (01/26/2024 10:21 AM EDT) Glucose 93 70 - 130 mg/dL 01/26/2024 10:21 AM EDT [facility] Blood 01/26/2024 10:2 1 AM EDT 01/26/2024 10:21 AM EDT Pebbles Beauchamp DO POINT OF CARE TEST ORD ERABLES Final Result Performing Organization Address [facility] Co de Phone Number [facility]
[address] [place] [address], [place] [phone] * [place] Liver (01/26/2024 4:58 AM EDT) Anatomical Region Laterality Modality Body, Abdomen Ultrasound 01/26/2024 5:09 AM EDT Impressions 01/26/2024 5:13 AM EDT Impression: Normal common duct. Electronically Signed: Junior Boo MD 01/26/2024 5:13 AM EDT Workstation ID: [id number] Narrative 01/26/2024 5:13 AM EDT US LIVER [...] The right kidney is 8.9 cm in hcvs-xu-qval length and there is no hydronephrosis. There [...] normal.The right kidney is 8.9 cm in uyqk-fl-uvme length and there is nohydronephrosis. There is a small exophytic cyst measuring about 2 cm. The pancreas is incompletely seen secondary toshadowing from overlying bowel gas. IMPRESSION: Impression: Normal common duct. Electronically Signed: Junior Boo MD 01/26/2024 5:13 AM EDT Workstation ID: [id number] us Ambika Arreaga MD IM US ORDERABLES Final Result * Blood Culture - Blood, Arm, Right (01/26/2024 2:00 AM EDT) Blood Culture No growth at 5 days 01/31/2024 7:00 AM EDT [facility] Blood Structure of right upper limb / Unknown Venipuncture / Unknown 01/26/2024 2:00 AM EDT 01/26/2024 6:51 AM EDT Kris Bird MD MICROBIOLOGY - GENERAL ORDERABLE S Final Result [facility]
[address] [place] [address], * Blood Culture - Blood, Arm, Left (01/26/2024 1:50 AM EDT) Blood Culture No growth at 5 days 01/31/2024 7:00 AM EDT [facility] Blood Structure of left upper limb / Unknown Venipuncture / Unknown 01/26/2024 1:50 AM EDT 01/26/2024 6:52 AM EDT us Kris Bird MD MICROBIOLOGY - GENERAL ORDERABLE S Final Result [facility]
[address] [place] [phone], * CT Abdomen Pelvis Without Contrast (01/26/2024 1:01 AM EDT) Anatomical Region Laterality Modality Abdomen, Pelvis N/A Computed Tomogra phy 01/26/2024 1:38 AM EDT Impressions 01/26/2024 1:44 AM EDT Impression: 1.Faint left lower lobe nodular airspace opacities suggestive of infectious process. 2.No acute abdominal or pelvic abnormality. 3.Bilateral fat-containing inguinal hernias. Electronically Signed: Junior Boo MD 01/26/2024 1:44 AM EDT Workstation ID: [id number] Narrative 01/26/2024 1:[address] ABDOMEN [...] MD 01/26/2024 1:44 AM EDT Workstation ID: [id number] us Kris Bird MD IM CT ORDERABLES Final Result * CK (01/26/2024 12:38 AM EDT) Pathologist [facility] Creatine Kinase 70 20 - 180 U/L 01/26/2024 4:25 AM EDT [facility] Blood Structure of right upper limb / Unknown Venipuncture / Unknown 01/26/2024 12:38 AM EDT 01/26/2024 1:09 AM EDT us Ambika Arreaga MD LAB BLOOD ORDERABLES Final Resul t [facility]
[address] [place] [address], * (ABNORMAL) CBC Auto Differential (01/26/2024 12:38 AM EDT) Pathologist [facility] WBC 11.38(H) 3.40 - 10.80 10*3/mm3 01/26/2024 1:14 AM EDT [facility] RBC 3.71(L) 3.77 - 5.28 10*6/mm3 01/26/2024 1:14 AM EDT [facility] Hemoglobin 12.3 12.0 - 15.9 g/dL 01/26/2024 1:14 AM EDT [facility] Hematocrit 35.6 34.0 - 46.6 % 01/26/2024 1:14 AM EDT [facility] MCV 96.0 79.0 - 97.0 fL 01/26/2024 1:14 AM EDT [facility] MCH 33.2(H) 26.6 - 33.0 pg 01/26/2024 1:14 AM EDT [facility] MCHC 34.6 31.5 - 35.7 g/dL 01/26/2024 1:14 AM EDT [facility] RDW 14.3 12.3 - 15.4 % 01/26/2024 1:14 AM EDT [facility] RDW-SD 46.9 37.0 - 54.0 fl 01/26/2024 1:14 AM [facility] MPV 9.9 6.0 - 12.0 fL 01/26/2024 1:14 AM [facility] Platelets 349 140 - 450 10*3/mm3 01/26/2024 1:14 AM [facility] Neutrophil % 60.9 42.7 - 76.0 % 01/26/2024 1:14 AM [facility] Lymphocyte % 30.6 19.6 - 45.3 % 01/26/2024 1:14 AM [facility] Monocyte % 5.7 5.0 - 12.0 % 01/26/2024 1:14 AM [facility] Eosinophil % 0.9 0.3 - 6.2 % 01/26/2024 1:14 AM [facility] Basophil % 0.6 0.0 - 1.5 % 01/26/2024 1:14 AM [facility] Immature Grans % 1.3(H) 0.0 - 0.5 % 01/26/2024 1:14 AM [facility] Neutrophils, Absolute 6.93 1.70 - 7.00 10*3/mm3 01/26/2024 1:14 AM [facility] Lymphocytes, Absolute 3.48(H) 0.70 - 3.10 10*3/mm3 01/26/2024 1:14 AM [facility] Monocytes, Absolute 0.65 0.10 - 0.90 10*3/mm3 01/26/2024 1:14 AM [facility] Eosinophils, Absolute 0.10 0.00 - 0.40 10*3/mm3 01/26/2024 1:14 AM [facility] Basophils, Absolute 0.07 0.00 - 0.20 10*3/mm3 01/26/2024 1:14 AM [facility] Immature Grans, Absolute 0.15(H) 0.00 - 0.05 10*3/mm3 01/26/2024 1:14 AM [facility] nRBC 0.0 0.0 - 0.2 /100 WBC 01/26/2024 1:14 AM EDT [facility] Blood Structure of right upper limb / Unknown Venipuncture / Unknown 01/26/2024 12:38 AM EDT 01/26/2024 1:11 AM EDT us Kris Bird MD LAB BLOOD ORDERABLES Final Resul t Performing Organization Address [facility] de Phone Number [facility]
[address] [place] [address], * Lactic Acid, Plasma (01/26/2024 12:38 AM EDT) Lactate 1.6 0.5 - 2.0 mmol/L 01/26/2024 1:27 AM EDT [facility] Comment:Falsely depressed re sults may occur on samples drawn from patients receiving N-Acetylcysteine (NAC) or Metamizole. Blood Structure of right upper limb / Unknown Venipuncture / Unknown 01/26/2024 12:38 AM EDT 01/26/2024 1:09 AM EDT us Kris Bird MD LAB BLOOD ORDERABLES Final Resul t Performing Organization Address [facility] de Phone Number [facility]
[address] [place] [address], * (ABNORMAL) Lipase (01/26/2024 12:38 AM EDT) Lipase 109(H) 13 - 60 U/L 01/26/2024 1:31 AM EDT [facility] Blood Structure of right upper limb / Unknown Venipuncture / Unknown 01/26/2024 12:38 AM EDT 01/26/2024 1:09 AM EDT us Kris Bird MD LAB BLOOD ORDERABLES Final Resul t Performing Organization Address [facility] de Phone Number [facility]
[address] [place] [address], * (ABNORMAL) Comprehensive Metabolic Panel (01/26/2024 12:38 AM EDT) [facility] Signature Glucose 93 65 - 99 mg/dL 01/26/2024 1:31 AM EDT [facility] BUN 18 6 - 20 mg/dL 01/26/2024 1:31 AM EDT [facility] Creatinine 1.02(H) 0.57 - 1.00 mg/dL 01/26/2024 1:31 AM EDT [facility] Sodium 136 136 - 145 mmol/L 01/26/2024 1:31 AM EDT [facility] Potassium 3.6 3.5 - 5.2 mmol/L 01/26/2024 1:31 AM EDT [facility] Chloride 99 98 - 107 mmol/L 01/26/2024 1:31 AM EDT [facility] CO2 25.0 22.0 - 29.0 mmol/L 01/26/2024 1:31 AM EDT [facility] Calcium 8.7 8.6 - 10.5 mg/dL 01/26/2024 1:31 AM EDT [facility] Total Protein 6.5 6.0 - 8.5 g/dL 01/26/2024 1:31 AM EDT [facility] Albumin 3.8 3.5 - 5.2 g/dL 01/26/2024 1:31 AM EDT [facility] ALT (SGPT) 35(H) 1 - 33 U/L 01/26/2024 1:31 AM EDT [facility] AST (SGOT) 80(H) 1 - 32 U/L 01/26/2024 1:31 AM EDT [facility] Alkaline Phosphatase 126(H) 39 - 117 U/L 01/26/2024 1:31 AM EDT [facility] Total Bilirubin 0.8 0.0 - 1.2 mg/dL 01/26/2024 1:31 AM EDT [facility] Globulin 2.7 gm/dL 01/26/2024 1:31 AM EDT [facility] Comment:Calculated Result A/G Ratio 1.4 g/dL 01/26/2024 1:31 AM EDT [facility] BUN/Creatinine Ratio 17.6 7.0 - 25.0 01/26/2024 1:31 AM EDT [facility] Anion Gap 12.0 5.0 - 15.0 mmol/L 01/26/2024 1:31 AM EDT [facility] eGFR 63.5 >60.0 mL/min/1.7 3 01/26/2024 1:31 AM EDT [facility] Blood Structure of right upper limb / Unknown Venipuncture / Unknown 01/26/2024 12:38 AM EDT 01/26/2024 1:09 AM EDT [facility] - 01/26/2024 1:31 AM EDT GFR Normal >60 Chronic Kidney Disease <60 Kidney Failure <15 Kris Bird MD LAB BLOOD ORDERABLES Final Resul t [facility]
[address] [place] [address], * LABS SCANNED (01/26/2024) [facility] LAB BLOOD ORDERABLES Final Re sult * Urine Culture - Urine, Urine, Clean Catch (01/25/2024 11:53 PM EDT) Urine Culture 50,000 CFU/mL Normal Urogenital Rosa Elena JAVAN 01/27/2024 11:27 AM EDT [facility] Urine Urine specimen obtained by clean catch procedure / Unknown Collection / Unknown 01/25/2024 11:53 PM EDT 01/26/2024 12:24 AM EDT Narrative [facility] - 01/27/2024 11:27 AM EDT Colonization of the urinary tract without infection is common. Treatment is discouraged unless the patient is symptomatic, , or undergoing an invasive urologic procedure. us Ambika Arreaga MD MICROBIOLOGY - GENERAL ORDERABLE S Final Result Performing Organization Address City/[facility]/ZIP Co de Phone Number [facility]
[address] [place] [address], [place] [phone] * (ABNORMAL) Urinalysis, Microscopic Only - Urine, Clean Catch (01/25/2024 11:53 PM EDT) RBC, UA 0-2 None Seen, 0-2 /HPF 01/26/2024 12:53 AM EDT [facility] WBC, UA 21-50(A) None Seen, 0-2 /HPF 01/26/2024 12:53 AM EDT [facility] Bacteria, UA None Seen None Seen, Trace /HPF 01/26/2024 12:53 AM EDT [facility] Squamous Epithelial Cells, UA 3-6(A) None Seen, 0-2 /HPF 01/26/2024 12:53 AM EDT [facility] Hyaline Casts, UA 0-6 0 - 6 /LPF 01/26/2024 12:53 AM EDT [facility] Methodology Manual Light Microscopy 01/26/2024 12:53 AM EDT [facility] Urine Urine specimen obtained by clean catch procedure / Unknown Collection / Unknown 01/25/2024 11:53 PM EDT 01/26/2024 12:24 AM EDT Kris Bird MD URINE ORDERABLES Final Result Performing Organization Address City/[facility]/ZIP Co de Phone Number [facility]
[address] [place] [address], [place] [phone] * (ABNORMAL) Urinalysis With Microscopic If Indicated (No Culture) - Urine, Clean Catch (01/25/2024 11:53 PM EDT) Color, UA Yellow Yellow, Straw 01/26/2024 12:53 AM EDT [facility] Appearance, UA Cloudy(A) Clear 01/26/2024 12:53 AM EDT [facility] pH, UA 5.5 5.0 - 8.0 01/26/2024 12:53 AM EDT [facility] Specific [place], UA 1.013 1.001 - 1.030 01/26/2024 12:53 AM EDT [facility] Glucose, UA Negative Negative 01/26/2024 12:53 AM EDT [facility] Ketones, UA Negative Negative 01/26/2024 12:53 AM EDT [facility] Bilirubin, UA Negative Negative 01/26/2024 12:53 AM EDT [facility] Blood, UA Negative Negative 01/26/2024 12:53 AM EDT [facility] [facility] Protein, UA Negative Negative 01/26/2024 12:53 AM EDT [facility] Leuk Esterase, UA Large (3+)(A) Negative 01/26/2024 12:53 AM EDT [facility] Nitrite, UA Negative Negative 01/26/2024 12:53 AM EDT [facility] Urobilinogen, UA 0.2 E.U./dL 0.2 - 1.0 E.U./dL 01/26/2024 12:53 AM EDT [facility] Urine Urine specimen obtained by clean catch procedure / Unknown Collection / Unknown 01/25/2024 11:53 PM EDT 01/26/2024 12:24 AM EDT us Kris Bird MD URINE ORDERABLES Final Result [facility]
[address] [place] [address], * [place] [facility] ILL/INJURED PATIENT INIT 30-74 MIN [...] disposal. 0841 (Given - Provider: Chikis Shi, PECAN SHELLER)1945 (Given - Provider: Makenna Wiggins, DIRECTOR PRIVATE MUSIC THERAPY AGENCY)2129 (Canceled Entry - Provider: Makenna Wiggins RRT) [...] Provider: Chanelle Marte RN)1215 (Return to [facility] - Provider: Chai Martinez, DIANE) albuterol (PROVENTIL) [...] Provider: Chai Martinez RN)2045 (Return to [facility] - Provider: Chanelle Marte RN) hydrOXYzine (ATARAX) [...] 0041 documented in this encounter Care Teams Paint Coating Machine Operator Relationship Specialty Start Date End Date Salima Gonzáles DO [facility] [employer] [place] [id number] PCP - General Family Medicine 02/21/17 documented as of this encounter
--- OUTSIDE RECORDS SUMMARY | 2024-04-10 14:12 | XMS_ITS | Encounter Summary ---
Author Organization [facility] Address [address] [place] [address] Care Team Providers Care Farm Marketer Name Role Phone Salima Gonzáles DO Primary Care Provider [phone] Encounter Details Date Type Department Care Team (Late st Contact Info) Description 12/26/2022 5:00 AM EDT Outside Facility Service [facility] [address] [place] [address] Kia Acosta MD [address] [place], [place] [id number] Social History Tobacco Use Types Packs/Day Years [...] on filedocumented in this encounter Care Teams Farm Marketer Relationship Specialty Start Date End Date Salima Gonzáles DO [address] [place] [address] PCP - General Family Medicine 02/21/17 documented as of this encounter
--- OUTSIDE RECORDS SUMMARY | 2024-04-10 14:12 | XMS_ITS | Encounter Summary ---
[facility] Address [address] [place] [address] Care Team Providers Care Cnc Machine Programmer Name Role Phone Eliecer Salima Garcia Primary Care Provider [phone] Reason for Referral * Consultation (Routine) - Closed Specialty Diagnoses / Procedures Referred By Josep t Referred To Contact Pulmonary Disease Diagnoses Shortness of breath Chronic obstructive pulmonary disease, unspecified COPD type Procedures [place] OFFICE/OUTPATIENT NEW MODERATE MDM 45 MINUTES Alea Juarez APRN [address] [address] Phone: tel: fax: Wale Hutchins MD [address] [place] [address] [facility] [place] [address] Phone: tel: fax: Referral ID Status Reason Start Date Expiration Date V isits Requested Visits Authorized [id number] Closed Specialty Services Required 09/05/2023 09/04/2024 1 1 Reason for Visit * Reason Comments Shortness of Breath Holter monitor resul ts Encounter Details Date Type Department Care Team (Late st Contact Info) Description 09/05/2023 10:30 AM EDT Office Visit [facility] [address] [phone] Alea Juarez APRN [address] [...] encounter Progress Notes * Trautwein, Alea E, CLIENT ONBOARDING ANALYST - 09/05/2023 10:51 AM EDTAssociated Problem(s): Shortness [...] mild COPD and has not seen a broadcast producer recently. A Symbicort inhaler was initiated at [...] Blood Gluc Sensor (FreeStyle Niels 2 Sensor) [facility] [place], USE DIRECTED FOR [...] type documented in this encounter Care Teams Cnc Machine Programmer Relationship Specialty Start Date End Date Salima Gonzáles DO [facility] [place] [address] PCP - General Family Medicine 02/21/17 documented as of this encounter
--- OUTSIDE RECORDS SUMMARY | 2024-04-10 14:12 | XMS_ITS | Encounter Summary ---
[facility] Address [address] [place] [address] Care Team Providers Care Scientific Software Developer Name Role Phone Salima Gonzáles Primary Care Provider [phone] Reason for Visit * Reason Comments Palpitations CCTA Results Encounter Details Date Type Department Care Team (Late st Contact Info) Description 04/03/2023 10:30 AM EST Office Visit [facility] [address] [place] [phone] Alea Juarez, CENTRAL MELT SPECIALIST [address] [place] [address] Abnormal nuclear stress test (Primary Dx); Palpitations; [...] patient to restart PAP therapy and contact Travel Notes to find a better mask that does [...] good control of blood sugar * Alea Juaerz APRN - 04/03/2023 12:32 PM ESTAssociated Problem(s): [...] moderate amount of total coronary plaque present. warp clamper 11/20/2022-average heart rate 73 bpm, minimum 54 [...] Blood Gluc Sensor (FreeStyle Niels 2 Sensor) [facility], USE DIRECTED FOR CONTINUOUS GLUCOSE MONITORING, Disp: [...] FOR MIGRAINE, Disp: , Rfl: nystatin (MYCOSTATIN) 983327 UNIT/GM cream, , Disp: , Rfl: nystatin-triamcinolone (MYCOLOG II) 956251-1.1 UNIT/GM-% cream, , Disp: , Rfl: ondansetron [...] patient to restart PAP therapy and contact [employer] company to find a better mask that [...] (pediatric) documented in this encounter Care Teams Scientific Software Developer Relationship Specialty Start Date End Date Salima Gonzáles DO [address] [place] [address] PCP - General Family Medicine 02/21/17 documented as of this encounter
--- OUTSIDE RECORDS SUMMARY | 2024-04-10 14:12 | XMS_ITS | Encounter Summary ---
[facility] Address [address] [place] [address] Care Team Providers Care Special Education Instructor Name Role Phone Eliecer Salima Radha Primary Care Provider [phone] Reason for Visit * Cardiac (Routine) - Closed Specialty Diagnoses / Procedures Referred By Josep t Referred To Contact Diagnoses Palpitations Procedures Holter Monitor - 72 Hour Up To 15 Days Alea Juarez APRN [address] [address] Phone: tel: fax: [facility] [address] [place] [address] Phone: tel: Referral ID Status Reason Start Date Expiration Date Visits Re quested Visits Authorized [id number] Closed 08/01/2023 07/31/2024 1 1 Encounter Details [...] for this exam include palpitations. Total beats: 174225. Average HR: 69. Min HR: 40. Max [...] on filedocumented in this encounter Care Teams Special Education Instructor Relationship Specialty Start Date End Date Salima Gonzáles DO [address] [place] [address] PCP - General Family Medicine 02/21/17 documented as of this encounter
--- OUTSIDE RECORDS SUMMARY | 2024-04-10 14:13 | XMS_ITS | Encounter Summary ---
Author Organization [employer] Address [address] [place] [address] Care Team Providers Care Seafood Preparer Name Role Phone Unavailable Primary Care Provider Unavailabl e Encounter Details Date Type Department Care Team (Late st Contact Info) Description 10/04/2020 Historic Encounter [address] [address] ProviderScarlet Historical Social History Tobacco [...] - 110 mg/dL 10/04/2020 6:24 PM EDT [facility] Seat Trimmer [id number] 10/04/2020 6:24 PM EDT [facility] Device SN [id number] 10/04/2020 6:24 PM EDT [facility] Device Comment1 No action Require 10/04/2020 6:24 PM EDT [facility] Blood 10/04/2020 2:24 PM EDT 10/04/2020 6:25 PM EDT [facility] Historical Provider POINT OF CARE TEST ORDSamantha BRISCOE Final Result Performing Organization Address City/State/[facility] Co de Phone Number [facility] [address] [place] [address] documented in this encounter Visit Diagnoses Not on filedocumented in this encounter
--- OUTSIDE RECORDS SUMMARY | 2024-04-10 14:13 | XMS_ITS | Encounter Summary ---
[facility] Address [address] [place] [id number] Care Team Providers Care Internet Marketing Intern Name Role Phone Salima Gonzáles Primary Care Provider [phone] Reason for Visit * Reason Comments Follow-up Right foot - 3 month s after MRI Encounter Details Date Type Department Care Team (Late st Contact Info) Description 05/14/2017 3:20 PM EST Office Visit [facility] [address] [place] [address] Rick Hernández MD [address] [facility] [address] [place] [address] Pain of right heel (Primary Dx); Morbid [...] from the original note were not included. [facility] Note Subjective Chief Complaint [...] necessary she is welcome to see a bobbin winder but I did not recommend heel spur surgery Medical Decision Making Management Options : [id number]-[id number] medicine Data/Risk: radiology tests and independent visualization of imaging, lab tests, or EMG/NCV Rick Hernández MD 05/14/17 4:20 PM documented in this encounter Plan of Treatment Not on file documented as of this encounter Visit Diagnoses Diagnosis Pain of right heel- Primary Morbid obesity with BMI of 45.0-49.9, adult documented in this encounter Care Teams Internet Marketing Intern Relationship Specialty Start Date End Date Salima Gonzáles DO [address] [place] [address] PCP - General Family Medicine 02/21/17 documented as of this encounter
--- OUTSIDE RECORDS SUMMARY | 2024-04-10 14:13 | XMS_ITS | Encounter Summary ---
Author Organization [employer] Address [address] [place] [address] Care Team Providers Care Jboss Developer Name Role Phone Salima Gonzáles DO Primary Care Provider [phone] Encounter Details Date Type Department Care Team (Late st Contact Info) Description 10/05/2020 Transcribed Document [facility] Family Medicine [address] [place] [address] ProviderQuincy MD [address] [place] [address] Social History Tobacco Use Types Packs/Day [...] on filedocumented in this encounter Care Teams Jboss Developer Relationship Specialty Start Date End Date Salima Gonzáles DO [address] [facility] [address] [place] [address] PCP - General Family Medicine 02/09/23 documented as of this encounter
--- OUTSIDE RECORDS SUMMARY | 2024-04-10 14:13 | XMS_ITS | Encounter Summary ---
Author Organization [employer] [facility] Address [address] [place] [address] Care Team Providers Care Scenic Designer Name Role Phone Salima Gonzáles Primary Care Provider [phone] Encounter Details Date Type Department Care Team (Late st Contact Info) Description 10/05/2020 Transcribed Document [facility] Family Medicine [address] [place] [address] ProviderQuincy MD [address] [place] [phone] Social History Tobacco Use Types Packs/Day Years Used Date Smoking Tobacco: Never Assessed Comments Unknown Sex and Gender Information Value Date Recorded Sex Assigned at Not on file Legal Sex Female 2:54 PM CDT Gender Identity Not on file Sexual Orientation Not on file documented as of this encounter Miscellaneous Notes * Cerner Conversion Note - Quincy Kaet MD - 10/05/2020 5:05 PM CDT Nursing [...] Education Comment : meds, follow ups, conditions/procedures Hao Coleman RN - 10/05/2020 17:05 EDT documented in this encounter Plan of Treatment Not on file documented as of this encounter Visit Diagnoses Not on filedocumented in this encounter Care Teams Scenic Designer Relationship Specialty Start Date End Date Salima Gonzáles, [address] [address] PCP - General Family Medicine 02/09/23 documented as of this encounter
--- OUTSIDE RECORDS SUMMARY | 2024-04-10 14:13 | XMS_ITS | Encounter Summary ---
Author Organization [employer] [facility] Address [address] [place] [address] Care Team Providers Care Homicide Squad Commanding Officer Name Role Phone Unavailable Primary Care Provider Unavailabl e Encounter Details Date Type Department Care Team (Late st Contact Info) Description 10/04/2020 Historic Encounter [address] [address] Provider, [facility] Historical Social History Tobacco Use Types Packs/Day [...] Priority Date/Time Associated Diagnosis Comments AUTOMATED DIFFERENTIAL ([facility] DATA CONV) Routine 10/04/2020 6:54 AM EDT documented in this encounter Results * AUTOMATED DIFFERENTIAL ([facility] DATA CONV) (10/04/2020 6:54 AM EDT) Neut% 46.9 34.0 - 71.0 % 10/04/2020 11:18 AM EDT Lymph% 41.8 19.3 - 53.1 % 10/04/2020 11:18 AM EDT [place]% 8.5 3.0 - 9.0 % 10/04/2020 11:18 AM EDT Eos% 1.6 0.0 - 7.0 % 10/04/2020 11:18 AM EDT Baso% 0.7 0.0 - 1.5 % 10/04/2020 11:18 AM EDT IG% 0.50 0.00 - 0.60 % 10/04/2020 11:18 AM EDT Neut# 2.59 1.56 - 6.13 K/uL 10/04/2020 11:18 AM EDT Lymph# 2.31 1.00 - 3.90 x10(3)/uL 10/04/2020 11:18 AM EDT [place]# 0.47 0.16 - 1.00 K/uL 10/04/2020 11:18 AM EDT Eos# 0.09 0.00 - 0.80 x10(3)/uL 10/04/2020 11:18 AM EDT Baso# 0.04 0.00 - 0.20 x10(3)/uL 10/04/2020 11:18 AM EDT IG# 0.03 0.00 - 0.05 x10(3)/uL 10/04/2020 11:18 AM EDT Blood 10/04/2020 6:54 AM EDT 10/04/2020 11:13 AM EDT Narrative [facility] - 10/04/2020 11:21 AM EDT Added by Discern Expert us Sle Historical Provider LAB BLOOD ORDERABLES Fi nal Result Performing Organization Address City/State/[facility] Co de Phone Number [facility] [address] [place] [address], [facility] [phone] documented in this encounter Visit Diagnoses Not on filedocumented in this encounter
--- OUTSIDE RECORDS SUMMARY | 2024-04-10 14:13 | XMS_ITS | Encounter Summary ---
Author Organization [employer] [facility] Address [address] [place] [address] Care Team Providers Care It Help Desk Associate Name Role Phone Salima Gonzáles Primary Care Provider [phone] Encounter Details Date Type Department Care Team (Late st Contact Info) Description 10/13/2020 Transcribed Document [facility] [place] Family [place] [address] ProviderQuincy MD [address] [place] [phone] Social History Tobacco Use Types Packs/Day Years [...] On: 10/13/2020 15:02 EDT by Katia Pratt, Program Medical Director Primary Insurance Authorization Authorization and Policy Numbers : Insurance 1 Health Plan: [employer] MEDICARE REPL Policy Number: [id number] Authorization Number: Insurance Primary Name : [facility] MEDICARE REPL Policy Number: [id number] Authorization Status-Primary : Denied Auth/Referral Contact Name-Primary : DC+ Reference Number-Primary : [id number] Authorized Service Begin Date-Primary : 10/03/2020 EDT Authorization Comments-Primary : Discharge date and summary faxed. Historical Authorization Comments-Primary : Comment 1: Email to David/Mary/MOSHE (JUSTEN HARTLEY, Rn-Utilization Review 10/13/2020 10:20) Comment 2: Rec fax from Sara 10/12/20 States admission has been denied. Fax to Jacque Tabor (TEMI LAMBERT, Hydroelectric Machinery Mechanic 10/12/2020 14:42) Comment 3: Per Jinny remains [...] 10/05/2020 14:13) Comment 8: Clinicals submitted via [employer] for IP approval (DEISY LIRA RN 10/04/2020 08:24) Katia Pratt, Program Medical Director - 10/13/2020 15:02 EDT Electronically signed by Nuzhat Barahona Conversion Product Support Representative Cerner at 08/23/2022 11:07 AM CDT documented in this encounter Plan of Treatment Not on file documented as of this encounter Visit Diagnoses Not on filedocumented in this encounter Care Teams It Help Desk Associate Relationship Specialty Start Date End Date Salima Gonzáles, 8 [facility] [address] [place] [address] PCP - General Family Medicine 02/09/23 documented as of this encounter
--- OUTSIDE RECORDS SUMMARY | 2024-04-10 14:13 | XMS_ITS | Encounter Summary ---
Author Organization [employer] [facility] [employer] Address [address] [place] [address] Care Team Providers Care Dramatic Agent Name Role Phone Salima Gonzáles DO Primary Care Provider [phone] Encounter Details Date Type Department Care Team (Late st Contact Info) Description 10/05/2020 Transcribed Document [facility] Family Medicine [address] [place] [address] ProviderQuincy MD [address] [place] [address] Social History Tobacco Use Types Packs/Day [...] on filedocumented in this encounter Care Teams Dramatic Agent Relationship Specialty Start Date End Date Salima Gonzáles DO [address] [place] [address] PCP - General Family Medicine 02/09/23 documented as of this encounter
--- OUTSIDE RECORDS SUMMARY | 2024-04-10 14:13 | XMS_ITS | Encounter Summary ---
Author Organization [employer] [facility] Address [address] [place] [address] Care Team Providers Care Cane Flume Watchman Name Role Phone Unavailable Primary Care Provider Unavailabl e Encounter Details Date Type Department Care Team (Late st Contact Info) Description 10/05/2020 Historic Encounter [address] [address] ProviderScarlet Historical Social History Tobacco [...] - 110 mg/dL 10/05/2020 3:24 PM EDT [facility] Drum Handler [id number] 10/05/2020 3:24 PM EDT [facility] Device SN [id number] 10/05/2020 3:24 PM EDT [facility] Device Comment1 Protocols Followed 10/05/2020 3:24 PM EDT [facility] Blood 10/05/2020 11:2 4 AM EDT 10/05/2020 3:25 PM EDT [facility] Historical Provider POINT OF CARE TEST ORDSamantha BRISCOE Final Result Performing Organization Address City/State/[facility] Co de Phone Number [facility] [address] [place] [address] documented in this encounter Visit Diagnoses Not on filedocumented in this encounter
--- OUTSIDE RECORDS SUMMARY | 2024-04-10 14:13 | XMS_ITS | Encounter Summary ---
Author Organization [employer] [facility] Address [address] [place] [address] Care Team Providers Care Fairing Man Name Role Phone Unavailable Primary Care Provider Unavailabl e Encounter Details Date Type Department Care Team (Late st Contact Info) Description 10/04/2020 Historic Encounter [address] [address] ProviderScarlet Historical Social History Tobacco [...] - 110 mg/dL 10/04/2020 4:29 PM EDT [facility] Chrome Worker [id number] 10/04/2020 4:29 PM EDT [facility] Device SN [id number] 10/04/2020 4:29 PM EDT [facility] Device Comment1 Notified Nurse RBV 10/04/2020 4:29 PM EDT [facility] Blood 10/04/2020 12:2 9 PM EDT 10/04/2020 4:32 PM EDT [facility] Historical Provider POINT OF CARE TEST MARIMAR BRISCOE Final Result Performing Organization Address City/State/[facility] Co de Phone Number [facility] [address] [phone] documented in this encounter Visit Diagnoses Not on filedocumented in this encounter
--- OUTSIDE RECORDS SUMMARY | 2024-04-10 14:13 | XMS_ITS | Encounter Summary ---
Author Organization [employer] Address [address] [place] [address] Care Team Providers Care Adjunct Professor Of Voice Name Role Phone Unavailable Primary Care Provider Unavailabl e Encounter Details Date Type Department Care Team (Late st Contact Info) Description 10/04/2020 Historic Encounter [address] [address] ProviderScarlet Historical Social History Tobacco [...] - 110 mg/dL 10/05/2020 12:31 AM EDT [facility] Burning Machine Operator [id number] 10/05/2020 12:31 AM EDT [facility] Device SN [id number] 10/05/2020 12:31 AM EDT [facility] Device Comment1 Protocols Followed 10/05/2020 12:31 AM EDT [facility] Blood 10/04/2020 8:31 PM EDT 10/05/2020 2:31 AM EDT [facility] Historical Provider POINT OF CARE TEST ORDE LUIS FELIPE Final Result Performing Organization Address City/State/[facility] Co de Phone Number [facility] [address] [place] [address] documented in this encounter Visit Diagnoses Not on filedocumented in this encounter
--- OUTSIDE RECORDS SUMMARY | 2024-04-10 14:13 | XMS_ITS | Encounter Summary ---
Author Organization [employer] Address [address] [place] [address] Care Team Providers Care Bacteriologist Industrial Name Role Phone Unavailable Primary Care Provider Unavailabl e Encounter Details Date Type Department Care Team (Late st Contact Info) Description 10/04/2020 Historic Encounter [address] [address] ProviderLianne Historical Social History Tobacco [...] Diagnosis Comments PT/INR PROTHROMBIN TIME ([facility] DATA CONV) Routine 10/04/2020 6:54 AM EDT documented in this encounter Results * PT/INR PROTHROMBIN TIME ([facility] DATA CONV) (10/04/2020 6:54 AM EDT) PT [...] 6:54 AM EDT 10/04/2020 11:13 AM EDT [facility] Historical Provider LAB BLOOD ORDERABLES Fi nal Result Performing Organization Address City/State/[facility] Co de Phone Number [facility] [address] [phone] documented in this encounter Visit Diagnoses Not on filedocumented in this encounter
--- OUTSIDE RECORDS SUMMARY | 2024-04-10 14:13 | XMS_ITS | Encounter Summary ---
Author Organization [employer] Address [address] [place] [address] Care Team Providers Care Atmospheric Physicist Name Role Phone Salima Gonzáles Primary Care Provider [phone] Encounter Details Date Type Department Care Team (Late st Contact Info) Description 10/12/2020 Transcribed Document [facility] [place] [facility] [place] [address] ProviderQuincy MD [address] [place] [phone] Social History Tobacco Use Types Packs/Day Years [...] Policy Numbers : Insurance 1 Health Plan: [email or web address] MEDICARE REPL Policy Number: [id number] Authorization Number: Insurance Primary Name : [employer] MEDICARE REPL Policy Number: [id number] Authorization Status-Primary : Awaiting callback Reference Number-Primary : [id number] Authorized Service Begin Date-Primary : 10/03/2020 EDT Authorization Comments-Primary : Yeison Stearns remains pending Historical Authorization Comments-Primary : Comment 1: Faxed dc summary via [employer] (PING HOFFMANN RN 10/11/2020 12:12) Comment 2: Remains pending per [employer] (PING HOFFMANN RN 10/11/2020 12:11) Comment 3: Email sent to madelyn (PING HOFFMANN RN 10/09/2020 15:11) Comment 4: Clinicals faxed via [employer] for IP approval (DEISY LIRA RN 10/05/2020 14:13) Comment 5: Clinicals submitted via [employer] for IP approval (DEISY LIRA RN 10/04/2020 08:24) PING HOFFMANN RN - 10/12/2020 12:06 EDT documented in this encounter Plan of Treatment Not on file documented as of this encounter Visit Diagnoses Not on filedocumented in this encounter Care Teams Atmospheric Physicist Relationship Specialty Start Date End Date Salima Gonzáles DO [address] [address] PCP - General Family Medicine 02/09/23 documented as of this encounter
--- OUTSIDE RECORDS SUMMARY | 2024-04-10 14:13 | XMS_ITS | Encounter Summary ---
Author Organization [employer] Address [address] [place] [address] Care Team Providers Care Ammonium Hydroxide Operator Name Role Phone Salima Gonzáles Primary Care Provider [phone] Encounter Details Date Type Department Care Team (Late st Contact Info) Description 10/12/2020 Transcribed Document [facility] [place] [facility] [place] [address] ProviderQuincy MD [address] [place] [address] [phone] Social History Tobacco Use Types Packs/Day Years [...] On: 10/12/2020 14:42 EDT by TEMI LAMBERT, Postal Transportation Clerk Primary Insurance Authorization Authorization and Policy Numbers : Insurance 1 Health Plan: [facility] Policy Number: [id number] Authorization Number: Insurance Primary Name : [employer] MEDICARE REPL Policy Number: [id number] Authorization Status-Primary : Denied Reference Number-Primary : [id number] Authorized Service Begin Date-Primary : 10/03/2020 EDT Authorization Comments-Primary : Rec fax from [place] 10/12/20 States admission has been denied. Fax [...] 10/09/2020 15:11) Comment 5: Clinicals faxed via [employer] for IP approval (DEISY LIRA RN 10/05/2020 14:13) Comment 6: Clinicals submitted via True Fit for IP approval (DEISY LIRA RN 10/04/2020 08:24) TEMI LAMBERT, Postal Transportation Clerk - 10/12/2020 14:42 EDT Electronically signed by [place] [facility] Conversion Commercial Real Estate Sales Manager Cerner at 08/23/2022 10:49 AM CDT documented in this encounter Plan of Treatment Not on file documented as of this encounter Visit Diagnoses Not on filedocumented in this encounter Care Teams Ammonium Hydroxide Operator Relationship Specialty Start Date End Date Salima Gonzáles, 8 [facility] [address] [place] [address] PCP - General Family Medicine 02/09/23 documented as of this encounter
--- OUTSIDE RECORDS SUMMARY | 2024-04-10 14:13 | XMS_ITS | Encounter Summary ---
Author Organization [employer] Address [address] [place] [address] Care Team Providers Care Assistant Produce Manager Name Role Phone Unavailable Primary Care Provider Unavailabl e Encounter Details Date Type Department Care Team (Late st Contact Info) Description 10/05/2020 Historic Encounter [address] [address] ProviderScarlet Historical Social History Tobacco [...] - 110 mg/dL 10/05/2020 10:19 AM EDT [facility] Womens Volleyball Coach [id number] 10/05/2020 10:19 AM EDT [facility] Device SN [id number] 10/05/2020 10:19 AM EDT [facility] Device Comment1 Protocols Followed 10/05/2020 10:19 AM EDT [facility] Blood 10/05/2020 6:19 AM EDT 10/05/2020 10:20 AM EDT Sle Historical Provider POINT OF CARE TEST ORDE LUIS FELIPE Final Result Performing Organization Address City/State/[facility] Co de Phone Number [facility] [address] [place] [address] documented in this encounter Visit Diagnoses Not on filedocumented in this encounter
--- OUTSIDE RECORDS SUMMARY | 2024-04-10 14:13 | XMS_ITS | Encounter Summary ---
Author Organization [employer] Address [address] [place] [address] Care Team Providers Care Textile Machine Operator Name Role Phone Salima Gonzáles DO Primary Care Provider [phone] Encounter Details Date Type Department Care Team (Late st Contact Info) Description 10/06/2020 Transcribed Document [facility] [place] Medicine [address] [place] [address] ProviderQuincy MD [address] [place] [address] [phone] Social History Tobacco Use Types Packs/Day Years [...] Appointments Made #1 : Dr. Salima Gonzáles [facility] Follow-up Appointment Date #1 : 10/19/2020 11:00 EDT Contact Phone Number #1 : [phone] Follow-up Appointments Made #2 : [facility] Follow-up Appointment Date #2 : 01/06/2021 13:30 EDT Contact Phone Number #2 : [phone] Jacque Ledezma, KNITTING MACHINE FIXER HEAD - 10/06/2020 11:44 EDT Electronically signed by [facility] Conversion Flat Locker Cerner at 08/23/2022 10:59 AM CDT documented in this encounter Plan of Treatment Not on file documented as of this encounter Visit Diagnoses Not on filedocumented in this encounter Care Teams Textile Machine Operator Relationship Specialty Start Date End Date Salima Gonzáles, 8 [facility] [address] [place] [address] PCP - General Family Medicine 02/09/23 documented as of this encounter
--- OUTSIDE RECORDS SUMMARY | 2024-04-10 14:13 | XMS_ITS | Encounter Summary ---
[facility] Address [address] [place] [address] Care Team Providers Care City Planning Teacher Name Role Phone Salima Gonzáles DO Primary Care Provider [phone] Reason for Referral * Diagnostic Imaging (Routine) - Closed Specialty Diagnoses / Procedures Referred By Josep t Referred To Contact Radiology Diagnoses Pain of right heel Procedures MRI Foot Right Without Contrast Rick Hernández MD [address] [place] [address] Phone: tel: fax: [place] [address] Phone: tel: Referral ID Status Reason Start Date Expiration Date Visits Re quested Visits Authorized [id number] Closed 02/21/2017 04/21/2017 1 1 Reason for Visit * Diagnostic Imaging (Routine) - Closed Specialty Diagnoses / Procedures Referred By Contac t Referred To Contact Radiology Diagnoses Pain of right heel Procedures MRI Foot Right Without Contrast Rick Hernández MD [address] [place] [address] Phone: tel: fax: [place] [address] Phone: tel: Referral ID Status Reason Start Date Expiration Date Visits Re quested Visits Authorized [id number] Closed 02/21/2017 04/21/2017 1 1 Encounter Details Date Type Department Care Team (Late st Contact Info) Description 04/20/2017 4:15 PM EST - 04/20/2017 11:59 PM [facility] Hospital Encounter [facility] MRI [address] [place] [id number] Rick Hernández MD [address] [facility] [address] [place] [address] Pain of right heel Discharge Disposition: Home [...] heel documented in this encounter Care Teams City Planning Teacher Relationship Specialty Start Date End Date Salima Gonzáles DO [facility] [place] [address] PCP - General Family Medicine 02/21/17 documented as of this encounter
--- OUTSIDE RECORDS SUMMARY | 2024-04-10 14:13 | XMS_ITS | Encounter Summary ---
Author Organization [employer] Address [address] [place] [address] Care Team Providers Care Reference Services Head Name Role Phone Salima Gonzáles DO Primary Care Provider Encounter Details Date Type Department Care Team (Late st Contact Info) Description 10/05/2020 Transcribed Document [facility] [place] [address] [place] [address] ProviderQuincy MD [address] [place] [address] Social History Tobacco Use Types Packs/Day [...] on filedocumented in this encounter Care Teams Reference Services Head Relationship Specialty Start Date End Date Salima Gonzáles DO [address] [phone] PCP - General Family Medicine 02/09/23 documented as of this encounter
--- OUTSIDE RECORDS SUMMARY | 2024-04-10 14:13 | XMS_ITS | Encounter Summary ---
Author Organization [employer] Address [address] [place] [address] Care Team Providers Care Chair Maker Name Role Phone Salima Mi DO Primary Care Provider Encounter Details Date Type Department Care Team (Late st Contact Info) Description 10/05/2020 Transcribed Document [facility] [place] [address] [place] [address] ProviderQuincy MD [address] [place] [address] [phone] Social History Tobacco Use Types Packs/Day Years [...] on Record Primary Care Provider SALIMA MI DO[facility] Discharge Diagnosis COPD with asthma 10/05/2020 J44.9 [...] -- Start: 10/05/20 8:17:00 EDT, 60 gm carbs:[id number] josue, GI Soft / Low Residue / [...] on filedocumented in this encounter Care Teams Chair Maker Relationship Specialty Start Date End Date Salima Mi DO [facility] [address] [place] [address] PCP - General Family Medicine 02/09/23 documented as of this encounter
--- OUTSIDE RECORDS SUMMARY | 2024-04-10 14:13 | XMS_ITS | Encounter Summary ---
Author Organization [facility] Address [address] [place] [id number] Care Team Providers Care Security Guard Dispatcher Name Role Phone Salima Gonzáles DO Primary Care Provider [phone] Reason for Referral * Diagnostic Imaging (Routine) - Closed Specialty Diagnoses / Procedures Referred By Josep banuelos Referred To Contact Radiology Diagnoses Pain of right heel Procedures MRI Foot Right Without Contrast Rick Hernández MD [facility] [address] [place] [address] Phone: tel: fax: [address] [address] Phone: tel: Referral ID Status Reason Start Date Expiration Date Visits Re quested Visits Authorized [id number] Closed 02/21/2017 04/21/2017 1 1 Reason for Visit * Reason Comments Pain Right heel * Consultation (Routine) - Closed Specialty Diagnoses / Procedures Referred By Contac t Referred To Contact Orthopedic Surgery Diagnoses Heel spur, right Referring, [place] [address] Rick Hernández MD [address] [place] [address] [place] [address] Phone: tel: fax: Referral ID Status Reason Start Date Expiration Date Visits Re quested Visits Authorized [id number] Closed 01/22/2017 01/22/2018 1 1 Encounter Details Date Type Department Care Team (Late st Contact Info) Description 02/21/2017 9:40 AM EDT Office Visit [facility] [address] [facility] [address] [place] [id number] Rick Hernández MD [address] [facility] [address] [place] [address] Pain of right heel (Primary Dx) Social [...] from the original note were not included. [facility] Note Subjective Chief Complaint [...] did a left heel spur removal and [place] a few years ago with great relief. [...] boot Medical Decision Making Management Options : [id number] medicine Data/Risk: radiology tests and independent visualization [...] heel documented in this encounter Care Teams Security Guard Dispatcher Relationship Specialty Start Date End Date Salima Gonzáles DO [address] [place] [address] PCP - General Family Medicine 02/21/17 documented as of this encounter
--- OUTSIDE RECORDS SUMMARY | 2024-04-10 14:13 | XMS_ITS | Encounter Summary ---
Author Organization [employer] Address [address] [place] [address] Care Team Providers Care Business Services Sales Agent Name Role Phone Unavailable Primary Care Provider Unavailabl e Encounter Details Date Type Department Care Team (Late st Contact Info) Description 10/05/2020 Historic Encounter [address] [address] ProviderScarlet Historical Social History Tobacco [...] 6:30 AM EDT 10/05/2020 11:22 AM EDT [facility] Historical Provider LAB BLOOD ORDERABLES Fi nal Result Performing Organization Address City/State/[facility] Co de Phone Number [facility] [address] [phone] documented in this encounter Visit Diagnoses Not on filedocumented in this encounter
--- OUTSIDE RECORDS SUMMARY | 2024-04-10 14:13 | XMS_ITS | Encounter Summary ---
Author Organization [employer] Address [address] [place] [address] Care Team Providers Care Meat Carrier Name Role Phone Salima Gonzáles Primary Care Provider [phone] Encounter Details Date Type Department Care Team (Late st Contact Info) Description 10/09/2020 Transcribed Document [facility] [place] [facility] [place] [address] ProviderQuincy MD [address] [place] [address] [phone] Social History Tobacco Use Types Packs/Day Years [...] Policy Numbers : Insurance 1 Health Plan: [facility] MEDICARE REPL Policy Number: [id number] Authorization Number: Insurance Primary Name : [place] MEDICARE REPL Policy Number: [id number] Authorization Status-Primary : Awaiting callback Reference Number-Primary : [id number] Authorized Service Begin Date-Primary : 10/03/2020 EDT Authorization Comments-Primary : Email sent to madelyn Mathew Authorization Comments-Primary : Comment 1: Clinicals faxed via [employer] for IP approval (DEISY LIRA RN 10/05/2020 14:13) Comment 2: Clinicals submitted via Snapsheet for IP approval (DEISY LIRA RN 10/04/2020 08:24) PING HOFFMANN RN - 10/09/2020 15:11 EDT Electronically signed by [place], [facility] Conversion Senior Quality Manager Cerner at 08/23/2022 10:52 AM CDT documented in this encounter Plan of Treatment Not on file documented as of this encounter Visit Diagnoses Not on filedocumented in this encounter Care Teams Meat Carrier Relationship Specialty Start Date End Date Salima Gonzáles, DO [address] [address] PCP - General Family Medicine 02/09/23 documented as of this encounter
--- OUTSIDE RECORDS SUMMARY | 2024-04-10 14:13 | XMS_ITS | Encounter Summary ---
Author Organization [employer] Address [address] [place] [address] Care Team Providers Care Lighting Engineer Name Role Phone Salima Gonzáles DO Primary Care Provider [phone] Encounter Details Date Type Department Care Team (Late st Contact Info) Description 10/06/[address] [facility] [place] Family Medicine [address] [place] [address] ProviderQuincy MD [address] [place] [address] [phone] Social History Tobacco Use Types Packs/Day Years [...] [facility] Patient Phone Number : [phone] Patient Insurance Type : Medicare Source of [...] at ED : Other Primary Language : [facility] Comment : Scheduled hosptial f/u appts with PCP & Urology. Advised pt of appt information via telephone. Mailed appt reminders. Faxed H&P to PCP's office. Emailed appt information to caseworker. Follow Up Needed : No Jacque Ledezma, PHYSIOTHERAPY AIDE - 10/06/2020 19:03 EDT documented in this encounter Plan of Treatment Not on file documented as of this encounter Visit Diagnoses Not on filedocumented in this encounter Care Teams Lighting Engineer Relationship Specialty Start Date End Date Salima Gonzáles DO [address] [facility] [address] [place] [address] PCP - General Family Medicine 02/09/23 documented as of this encounter
--- OUTSIDE RECORDS SUMMARY | 2024-04-10 14:13 | XMS_ITS | Encounter Summary ---
Author Organization [employer] Address [address] [place] [address] Care Team Providers Care Microfilm Mounter Name Role Phone Salima Gonzáles Primary Care Provider [phone] Encounter Details Date Type Department Care Team (Late st Contact Info) Description 10/05/2020 Transcribed Document [facility] [place] Family Medicine [address] [place] [address] ProviderQuincy MD [address] [place] [address] Social History Tobacco Use Types Packs/Day [...] On: 10/05/2020 14:02 EDT by EVONNE GABRIEL RN-Director Of Global Sales Final Discharge Planning Discharge Arrangements : Patient Post-Acute Information Patient Name: AMBIKA PIERRE Gender: Female : 63 Age: 54 Years No Post-Acute Placement(s) Listed No Post-Acute Service(s) Listed No [place] Referral(s) Listed Transportation Needs : Family/Friend Follow Up Appointment Scheduled : Yes Is Patient High/Moderate Readmission Risk? : No Discharge To Care Management : Home/Residential/Prison or Self Care -01 EVONNE GABRIEL, RN-Director Of Global Sales - 10/05/2020 14:02 EDT Electronically signed by [place] [facility] Conversion Corner Former Cerner at 08/23/2022 11:08 AM CDT documented in this encounter Plan of Treatment Not on file documented as of this encounter Visit Diagnoses Not on filedocumented in this encounter Care Teams Microfilm Mounter Relationship Specialty Start Date End Date Salima Gonzáles, 8 [facility] [address] [place] [address] PCP - General Family Medicine 02/09/23 documented as of this encounter
--- OUTSIDE RECORDS SUMMARY | 2024-04-10 14:13 | XMS_ITS | Encounter Summary ---
Author Organization [employer] Address [address] [place] [address] Care Team Providers Care Application Coordinator Name Role Phone Salima Gonzáles Primary Care Provider [phone] Encounter Details Date Type Department Care Team (Late st Contact Info) Description 10/05/2020 Transcribed Document [facility] [place] [address] [place] [address] ProviderQuincy MD [address] [place] [address] Social History Tobacco Use Types Packs/Day [...] Quincy ProviderMD - 10/05/2020 2:00 AM CDT Orchestra Leader Details Entered On: 10/05/2020 3:28 EDT Performed [...] on filedocumented in this encounter Care Teams Application Coordinator Relationship Specialty Start Date End Date Salima Gonzáles, [address] [address] PCP - General Family Medicine 02/09/23 documented as of this encounter
--- OUTSIDE RECORDS SUMMARY | 2024-04-10 14:13 | XMS_ITS | Encounter Summary ---
Author Organization [employer] Address [address] [place] [address] Care Team Providers Care Restaurant Team Member Name Role Phone Salima Gonzáles Primary Care Provider [phone] Encounter Details Date Type Department Care Team (Late st Contact Info) Description 10/23/2020 Transcribed Document [facility] [place] [facility] [place] [address] ProviderQuincy MD [address] [place] [phone] Social History Tobacco Use Types Packs/Day Years [...] Policy Numbers : Insurance 1 Health Plan: [facility] [place] MEDICARE REPL Policy Number: [id number] Authorization Number: Insurance Primary Name : [facility] MEDICARE REPL Policy Number: [id number] Authorization Status-Primary : Denied Auth/Referral Contact Name-Primary : DC+ Reference Number-Primary : [id number] Authorized Service Begin Date-Primary : 10/03/2020 EDT Authorization Comments-Primary : Yeison coello to bill under part b. emailed to billing. Historical Authorization Comments-Primary : Comment 1: Discharge date and summary faxed. (Katia Pratt, Tool/Die Maker 10/13/2020 15:02) Comment 2: Email to David/Mary/MOSHE (JUSTEN HARTLEY, Rn-Utilization Review 10/13/2020 10:20) Comment 3: Rec fax from [place] 10/12/20 States admission has been denied. Fax to Jacque Tabor (TEMI LAMBERT, Silviculture Forester 10/12/2020 14:42) Comment 4: Per Jinny remains pending (JACQUE HOFFMANN RN 10/12/2020 12:06) Comment 5: Faxed dc summary via [employer] (JACQUE HOFFMANN RN 10/11/2020 12:12) Comment 6: Remains pending per Av[employer]ity (JACQUE HOFFMANN RN 10/11/2020 12:11) Comment 7: Email sent to jinny (JACQUE HOFFMANN RN 10/09/2020 15:11) Comment 8: Clinicals faxed via [employer] for IP approval (DEISY LIRA RN 10/05/2020 14:13) Comment 9: Clinicals submitted via Particle for IP approval (DEISY LIRA RN 10/04/2020 08:24) JACQUE HOFFMANN RN - 10/23/2020 12:34 EDT documented in this encounter Plan of Treatment Not on file documented as of this encounter Visit Diagnoses Not on filedocumented in this encounter Care Teams Restaurant Team Member Relationship Specialty Start Date End Date Salima Gonzáles, DO [address] [place] [address] PCP - General Family Medicine 02/09/23 documented as of this encounter
--- OUTSIDE RECORDS SUMMARY | 2024-04-10 14:13 | XMS_ITS | Encounter Summary ---
Author Organization [employer] Address [address] [place] [address] Care Team Providers Care Portal Architect Name Role Phone Salima Gonzáles Primary Care Provider [phone] Encounter Details Date Type Department Care Team (Late st Contact Info) Description 10/11/2020 Transcribed Document [facility] [place] [facility] [place] [address] ProviderQuincy MD [address] [place] [address] [phone] Social History Tobacco Use Types Packs/Day Years [...] Policy Numbers : Insurance 1 Health Plan: [employer] MEDICARE REPL Policy Number: [id number] Authorization Number: Insurance Primary Name : [employer] MEDICARE REPL Policy Number: [id number] Authorization Status-Primary : Awaiting callback Reference Number-Primary : [id number] Authorized Service Begin Date-Primary : 10/03/2020 EDT Authorization Comments-Primary : Faxed dc summary via Michael Historical Authorization Comments-Primary : Comment 1: Remains pending per Av[employer]ity (PING HOFFMANN RN 10/11/2020 12:11) Comment 2: Email sent to madelyn (PING HOFFMANN RN 10/09/2020 15:11) Comment 3: Clinicals faxed via [employer] Virtual for IP approval (DEISY LIRA RN 10/05/2020 14:13) Comment 4: Clinicals submitted via Ipselex for IP approval (DEISY LIRA RN 10/04/2020 08:24) PING HOFFMANN RN - 10/11/2020 12:12 EDT documented in this encounter Plan of Treatment Not on file documented as of this encounter Visit Diagnoses Not on filedocumented in this encounter Care Teams Portal Architect Relationship Specialty Start Date End Date Salima Gonzáles, 8 [facility] [address] [place] [address] PCP - General Family Medicine 02/09/23 documented as of this encounter
--- OUTSIDE RECORDS SUMMARY | 2024-04-10 14:13 | XMS_ITS | Encounter Summary ---
Author Organization [facility] Address [address] [place] [id number] Care Team Providers Care Mandarin Speaking Nanny Name Role Phone Salima Gonzáles DO Primary Care Provider [phone] Encounter Details Date Type Department Care Team [...] on filedocumented in this encounter Care Teams Mandarin Speaking Nanny Relationship Specialty Start Date End Date Salima Gonzáles DO [facility] [place] [address] PCP - General Family Medicine 02/21/17 documented as of this encounter
--- OUTSIDE RECORDS SUMMARY | 2024-04-10 14:13 | XMS_ITS | Encounter Summary ---
Author Organization [employer] Address [address] [place] [address] Care Team Providers Care Diet Clerk Name Role Phone Anujlizbet Salima Ybarra DO Primary Care Provider [phone] Encounter Details Date Type Department Care Team (Late st Contact Info) Description 10/05/2020 Transcribed Document [facility] Family Medicine [facility] [place] [address] ProviderQuincy MD [address] [place] [address] [id number] Social History Tobacco Use Types Packs/Day Years [...] On: 10/05/2020 13:56 EDT by EVONNE GABRIEL, DIANE-Fur Blowing Machine Operator Initial Assessment I Previously Documented Living [...] Is Guardianship Needed : No EVONNE GABRIEL RN-Fur Blowing Machine Operator - 10/05/2020 13:56 EDT Initial Assessment II Sensory and Motor Deficits : None Current Home Treatments and Equipment : Nebulizer Services and Community Resources : Home Health (Comment: Pt states that she has used a couple of HH agencies in the past after her knee replacement [EVONNE GABRIEL RN-Fur Blowing Machine Operator - 10/05/2020 13:56 EDT] ) Services and Community Resources Addl Comments : Signature of Nayeli nath 8-9 years ago after knee replacement EVONNE GABRIEL RN-Fur Blowing Machine Operator - 10/05/2020 13:56 EDT Discharge Needs I Anticipated Discharge Date : 10/05/2020 EDT Anticipated Discharge To, CM : Home independently Current Home Treatment/Equipment : Current Home Treatment/Equipment No qualifying data available. Post Acute/Home Treatments : None Documentation Status Complete : Yes EVONNE GABRIEL RN-Fur Blowing Machine Operator - 10/05/2020 13:56 EDT Discharge Needs II Professional Skilled Services : Professional Skilled Services No qualifying data available. Needs Assistance with Transportation : No EVONNE GABRIEL RN-Fur Blowing Machine Operator - 10/05/2020 13:56 EDT Narrative Note Narrative Note : Received from [facility] to here due to kidney stone. Urology consulted. Pt had ureteroscopy, laser lithotripsy with stent placement. Met with Pt at the bedside. Role of CM explained. Pt states that she is ADL independent, lives home alone. Plans are to return home when discharged. No needs antcipated/verbalized at this time. RRS is low @ 37, boost 5. CM will follow. EVONNE GABRIEL RN-Fur Blowing Machine Operator - 10/05/2020 13:56 EDT documented in this encounter Plan of Treatment Not on file documented as of this encounter Visit Diagnoses Not on filedocumented in this encounter Care Teams Diet Clerk Relationship Specialty Start Date End Date Salima Gonzáles, DO [address] [facility] [address] [place] [address] PCP - General Family Medicine 02/09/23 documented as of this encounter
--- OUTSIDE RECORDS SUMMARY | 2024-04-10 14:13 | XMS_ITS | Encounter Summary ---
Author Organization [employer] Address [address] [place] [address] Care Team Providers Care Pebble Mill Operator Name Role Phone Unavailable Primary Care Provider Unavailabl e Encounter Details Date Type Department Care Team (Late st Contact Info) Description 10/04/2020 Historic Encounter [address] [address] ProviderScarlet Historical Social History Tobacco [...] - 110 mg/dL 10/04/2020 8:12 PM EDT [facility] Institutional Nutrition Consultant [id number] 10/04/2020 8:12 PM EDT [facility] Device SN [id number] 10/04/2020 8:12 PM EDT [facility] Device Comment1 Notified Nurse RBV 10/04/2020 8:12 PM EDT [facility] Blood 10/04/2020 4:12 PM EDT 10/04/2020 9:15 PM EDT [facility] Historical Provider POINT OF CARE TEST MARIMAR BRISCOE Final Result Performing Organization Address City/State/[place] Co de Phone Number [facility] [address] [place] [address] documented in this encounter Visit Diagnoses Not on filedocumented in this encounter
--- OUTSIDE RECORDS SUMMARY | 2024-04-10 14:13 | XMS_ITS | Encounter Summary ---
Author Organization [facility] Address [address] [place] [address] Care Team Providers Care Fleet Salesperson Name Role Phone Unavailable Primary Care Provider Unavailabl e Encounter Details Date Type Department Care Team (Latest Contact Info) Description 09/22/2015 6:31 PM EDT - 09/22/2015 11:59 PM EDT Hospital Encounter [facility] [address] [place] [address] Harper Loya PA [address] [place] [address] [address] [place] [address] Discharge Disposition: Home or Self Care Social [...] 09/22/2015 7:36 PM EDT Comment:R BREAST Narrative [facility] - 09/26/2015 11:18 AM EDT [...] MICROBIOLOGY - GENERAL OR DERABLES Final Result [facility]
[address] [phone], documented in this encounter Visit Diagnoses Not on filedocumented in this encounter
--- OUTSIDE RECORDS SUMMARY | 2024-04-10 14:13 | XMS_ITS | Encounter Summary ---
Author Organization [employer] Address [address] [place] [address] Care Team Providers Care Highway Engineer Name Role Phone Salima Gonzáles Primary Care Provider [phone] Encounter Details Date Type Department Care Team (Late st Contact Info) Description 10/05/2020 Transcribed Document [facility] Family Medicine [address] [place] [address] ProviderQuincy MD [address] [place] [address] Social History Tobacco Use Types Packs/Day [...] on filedocumented in this encounter Care Teams Highway Engineer Relationship Specialty Start Date End Date Salima Gonzáles, 8 [facility] [address] [place] [address] PCP - General Family Medicine 02/09/23 documented as of this encounter
--- OUTSIDE RECORDS SUMMARY | 2024-04-10 14:13 | XMS_ITS | Encounter Summary ---
Author Organization [employer] Address [address] [place] [address] Care Team Providers Care Waste Disposal Attendant Name Role Phone Unavailable Primary Care Provider Unavailabl e Encounter Details Date Type Department Care Team (Late st Contact Info) Description 10/04/2020 Historic Encounter [address] [address] ProviderScarlet Historical Social History Tobacco [...] - 110 mg/dL 10/04/2020 9:53 AM EDT [facility] Historiography Professor [id number] 10/04/2020 9:53 AM EDT [facility] Device SN [id number] 10/04/2020 9:53 AM EDT [facility] Device Comment1 No action Require 10/04/2020 9:53 AM EDT [facility] Blood 10/04/2020 5:53 AM EDT 10/04/2020 9:54 AM EDT [facility] Historical Provider POINT OF CARE TEST ORDE LUIS FELIPE Final Result Performing Organization Address City/State/[facility] Co de Phone Number [facility] [address] [place] [address] documented in this encounter Visit Diagnoses Not on filedocumented in this encounter
--- OUTSIDE RECORDS SUMMARY | 2024-04-10 14:13 | XMS_ITS | Clinical Summary ---
Author Organization [employer] Address [address] [place] [address] Care Team Providers Care Billet Sawyer Name Role Phone Salima Gonzáles DO Primary Care Provider [phone] Social History Tobacco Use Types Packs/Day Years [...] d or Tdap) 01/25/2028 01/24/2018 Insurance [facility] Care Teams Billet Sawyer Relationship Specialty Start Date End Date Salima Gonzáles, DO [address] [facility] [address] [place] [address] PCP - General Family Medicine 02/09/23
--- OUTSIDE RECORDS SUMMARY | 2024-04-10 14:13 | XMS_ITS | Encounter Summary ---
Author Organization [employer] Address [address] [place] [address] Care Team Providers Care Stopperer Assembler Name Role Phone Salima Gonzáles Tate SWANN Primary Care Provider [phone] Encounter Details Date Type Department Care Team (Late st Contact Info) Description 10/05/2020 Transcribed Document [facility] Family Medicine [facility] [place] [address] ProviderQuincy MD [address] [place] [address] [phone] Social History Tobacco Use Types Packs/Day Years [...] (cefdinir, cefdinir) morphine Electronically signed by [place] [facility] Conversion Plant Breeder Cerner at 08/23/2022 11:00 AM CDT documented in this encounter Plan of Treatment Not on file documented as of this encounter Visit Diagnoses Not on filedocumented in this encounter Care Teams Stopperer Assembler Relationship Specialty Start Date End Date Salima Gonzáles, [address] [address] PCP - General Family Medicine 02/09/23 documented as of this encounter
--- OUTSIDE RECORDS SUMMARY | 2024-04-10 14:13 | XMS_ITS | Encounter Summary ---
Author Organization [employer] Address [address] [place] [address] Care Team Providers Care Assistant Professor Of Surgery Name Role Phone Salima Gonzáles Primary Care Provider [phone] Encounter Details Date Type Department Care Team (Late st Contact Info) Description 10/05/[address] [facility] Family Medicine [facility] [place] [address] ProviderQuincy MD [address] [place] [address] [phone] Social History Tobacco Use Types Packs/Day Years [...] Policy Numbers : Insurance 1 Health Plan: [employer] MEDICARE REPL Policy Number: [id number] Authorization Number: Insurance Primary Name : [employer] MEDICARE REPL Policy Number: [id number] Authorization Status-Primary : Awaiting callback Reference Number-Primary : [id number] Authorized Service Begin Date-Primary : 10/03/2020 EDT Authorization Comments-Primary : Clinicals faxed via [employer] for IP approval Historical Authorization Comments-Primary : Comment 1: Clinicals submitted via [employer] for IP approval (DEISY LIRA RN 10/04/2020 08:24) DEISY LIRA RN - 10/05/2020 14:13 EDT Electronically signed by [place] [facility] Conversion Lobster Fisherman Cerner at 08/23/2022 11:14 AM CDT documented in this encounter Plan of Treatment Not on file documented as of this encounter Visit Diagnoses Not on filedocumented in this encounter Care Teams Assistant Professor Of Surgery Relationship Specialty Start Date End Date Salima Gonzáles DO [address] [place] [address] PCP - General Family Medicine 02/09/23 documented as of this encounter
--- OUTSIDE RECORDS SUMMARY | 2024-04-10 14:13 | XMS_ITS | Encounter Summary ---
Author Organization [employer] Address [address] [address] Care Team Providers Care Water Quality Specialist Name Role Phone Unavailable Primary Care Provider Unavailabl e Encounter Details Date Type Department Care Team (Late st Contact Info) Description 10/04/2020 Historic Encounter [address] [address] Provider, [facility] Historical Social History Tobacco Use Types Packs/Day [...] Comments CMP COMPREHENSIVE METABOLIC PANEL ([facility] DATA CONV) Routine 10/04/2020 6:54 AM EDT documented in this encounter Results * (ABNORMAL) CMP COMPREHENSIVE METABOLIC PANEL ([facility] BK DATA CONV) (10/04/2020 6:54 AM EDT) [...] 106 mg/dL 10/04/2020 11:38 AM EDT Comment: [facility] has become aware of sulfasalazine and sulfapyridine [...] 11:38 AM EDT Comment: Released without repeat. [facility] has become aware of sulfasalazine and sulfapyridine [...] Units/Lit er 10/04/2020 11:38 AM EDT Comment: [facility] has become aware of sulfasalazine and sulfapyridine [...] 6:54 AM EDT 10/04/2020 11:13 AM EDT [facility] Historical Provider LAB BLOOD ORDERABLES Fi nal Result [facility] [address] [phone] documented in this encounter Visit Diagnoses Not on filedocumented in this encounter
--- OUTSIDE RECORDS SUMMARY | 2024-04-10 14:13 | XMS_ITS | Encounter Summary ---
Author Organization [employer] Address [address] [place] [address] Care Team Providers Care Senior Web Engineer Name Role Phone Salima Gonzáles DO Primary Care Provider [phone] Reason for Referral * Cardiac Stress Testing (Routine) - Closed Specialty Diagnoses / Procedures Referred By Josep banuelos Referred To Contact Diagnoses Precordial chest pain Shortness of breath Procedures Stress Test With Myocardial Perfusion One Day Alea Juarez APRN [address] [place] [address] Phone: tel: fax: [address] [place] [address] Phone: tel: Referral ID Status Reason Start Date Expiration Date Visits Re quested Visits Authorized [id number] Closed 12/13/2022 12/13/2023 4 1 * Diagnostic Imaging (Routine) - Closed Specialty Diagnoses / Procedures Referred By Josep banuelos Referred To Contact Diagnoses Precordial chest pain Shortness of breath Palpitations Procedures Adult Transthoracic Echo Complete W/ Cont if Necessary Per Protocol Alea Juarez APRN [address] [place] [address] Phone: tel: fax: [facility] [address] [place] [address] Phone: tel: fax: Referral ID Status Reason Start Date Expiration Date Visits Re quested Visits Authorized [id number] Closed 12/13/2022 12/13/2023 1 1 Reason for Visit * Reason Comments Establish Care Palpitations * Consultation (Routine) - Closed Specialty Diagnoses / Procedures Referred By Contac t Referred To Contact Cardiology Diagnoses Premature beats Palpitations Salima Gonzáles, DO [address] [place] [address] Phone: tel: fax: [facility] [address] [place] [address] Phone: tel: fax: Referral ID Status Reason Start Date Expiration Date Visits Re quested Visits Authorized [id number] Closed 11/29/2022 11/29/2023 1 1 Encounter Details Date Type Department Care Team (Late st Contact Info) Description 12/13/2022 1:00 PM EDT Office Visit [facility] [address] [place] [address] Alea Juarez APRN [address] [place] [address] Palpitations (Primary Dx); Shortness of breath; [...] patient to restart PAP therapy and contact [employer] to find a better mask that [...] PCP to get better control of anxiety. hospital monitor 11/20/2022-average heart rate 73 bpm, minimum [...] patient to restart PAP therapy and contact [employer] to find a better mask that does [...] PCP to get better control of anxiety. hospital monitor 11/20/2022-average heart rate 73 bpm, minimum [...] (62 ) Wt 119 kg (262 lb) EmV823% BMI 47.92 kg/m?? Estimated body mass index [...] patient to restart PAP therapy and contact [employer] to finda better mask that does [...] Palpitations documented in this encounter Care Teams Senior Web Engineer Relationship Specialty Start Date End Date Salima Gonzáles DO [facility] [place] [address] PCP - General Family Medicine 02/21/17 documented as of this encounter
--- OUTSIDE RECORDS SUMMARY | 2024-04-10 14:13 | XMS_ITS | Encounter Summary ---
Author Organization [employer] Address [address] [place] [address] Care Team Providers Care Mix Technician Name Role Phone Unavailable Primary Care Provider Unavailabl e Encounter Details Date Type Department Care Team (Late st Contact Info) Description 10/05/2020 Historic Encounter [address] [address] Provider, [facility] Historical Social History Tobacco Use Types [...] Diagnosis Comments CMP COMPREHENSIVE METABOLIC PANEL ([facility] DATA CONV) Routine 10/05/2020 6:30 AM EDT documented in this encounter Results * (ABNORMAL) CMP COMPREHENSIVE METABOLIC PANEL ([facility] BK DATA CONV) (10/05/2020 6:30 AM EDT) [...] 106 mg/dL 10/05/2020 11:52 AM EDT Comment: [email or web address] has become aware of sulfasalazine and sulfapyridine [...] Units/Lit er 10/05/2020 11:52 AM EDT Comment: [email or web address] has become aware of sulfasalazine and sulfapyridine [...] Units/Lit er 10/05/2020 11:52 AM EDT Comment: [employer] has become aware of sulfasalazine and sulfapyridine [...] 6:30 AM EDT 10/05/2020 11:22 AM EDT [facility] Historical Provider LAB BLOOD ORDERABLES Fi nal Result [facility] [address] [place], [place] [address] [phone] documented in this encounter Visit Diagnoses Not on filedocumented in this encounter
--- OUTSIDE RECORDS SUMMARY | 2024-04-10 14:13 | XMS_ITS | Encounter Summary ---
Author Organization [employer] Address [address] [place] [address] Care Team Providers Care Acute Care Physician Name Role Phone Unavailable Primary Care Provider Unavailabl e Encounter Details Date Type Department Care Team (Late st Contact Info) Description 10/04/2020 Historic Encounter [facility] [address] [place] [address] Provider, [facility] Historical Social History Tobacco Use Types Packs/Day [...] Priority Date/Time Associated Diagnosis Comments MAGNESIUM LEVEL ([facility] DATA CONV) Routine 10/04/2020 6:54 AM EDT documented in this encounter Results * MAGNESIUM LEVEL ([facility] BK DATA CONV) (10/04/2020 6:54 AM EDT) Magnesium Level 1.9 1.5 - 2.4 mg/dL 10/04/2020 11:37 AM EDT Blood 10/04/2020 6:54 AM EDT 10/04/2020 11:13 AM EDT [facility] Historical Provider LAB BLOOD ORDERABLES Fi nal Result [facility] 1 [place], [place] [address] [phone] documented in this encounter Visit Diagnoses Not on filedocumented in this encounter
--- OUTSIDE RECORDS SUMMARY | 2024-04-10 14:13 | XMS_ITS | Encounter Summary ---
Author Organization [employer] Address [address] [place] [address] Care Team Providers Care Coloring Checker Name Role Phone Salima Mi DO Primary Care Provider [phone] Encounter Details Date Type Department Care Team (Late st Contact Info) Description 10/05/2020 Transcribed Document [facility] Family Medicine [address] [place] [address] ProviderQuincy MD [address] [place] [address] Social History Tobacco Use Types Packs/Day [...] Kate MD - 10/05/2020 4:12 PM CD[place] [address] AMBIKA PIERRE :1965 Visit Time:10/03/2020 [...] you. Where: [address] [place] [address]- Follow Up with ANNABEL ZAMBRANO MD-URO When Within 3 months Comments For kidney stone follow up. Call for follow up appointment. Bring discharge instructions with you. Bring Ins Card, Photo ID, Ins Co-pay. Where: [address] [facility] [address] [place] [address]- Medications What How Much When Instructions Next Dose pseudoePHEDrine (Sudafed 30 mg oral tablet) 1 Tablet(s) Oral Every 6 Hours as needed for Congestion Pickup at [facility] as needed montelukast (Singulair 10 [...] sitagliptin (Januvia) 100mg daily tomorrow Pharmacy Information [phone]: [phone] [place] [address] [phone] Take your medications faithfully. Do NOT skip [...] these instructions at home: Medicines ??? Take hshn-hes-pfbnqfz and prescription medicines only as told by [...] provider. Document Revised: 09/09/2019 Document Reviewed: 09/09/2019 [employer] Patient Education ?? 2020 [employer]. Ureteroscopy Ureteroscopy is a procedure to check [...] including vitamins, herbs, eye drops, creams, and eluu-xqn-sxudlib medicines. ??? Any problems you or family [...] provider. Document Revised: 04/05/2018 Document Reviewed: 02/02/2017 [employer] Patient Education ?? 2020 [employer] Dietary Guidelines to Help Prevent Kidney [...] Rhubarb. ? Beets. ? Potato chips and nauruan fries. ? Nuts. ??? If you regularly take a diuretic medicine, make sure to eat at least 1???2 fruits or vegetables high in potassium each day. These include: ? Avocado. ? Banana. ? [place], prune, carrot, or tomato juice. ? Baked [...] Casseroles. Pizza. Lasagna. Frozen meals. Potato chips. Micronesian fries. Summary ??? You can reduce your [...] provider. Document Revised: 08/13/2019 Document Reviewed: 04/03/2017 [employer] Patient Education ?? 2019 [employer]. pseudoephedrine (SALAZAR moralez ee FED rin) Chlor [...] from your inner ears, called the eustachian (dai-UIEC-awaf) tubes. Pseudoephedrine may also be used for [...] may report side effects to FDA at 1-633-OTU-0861. What other drugs will affect pseudoephedrine? Other drugs may interact with pseudoephedrine, including prescription and xcbk-dyh-gbworts medicines, vitamins, and herbal products. Tell each [...] to ensure that the information provided by [employer]. ('[employer]') is accurate, up-to-date, and complete, but no guarantee is made to that effect. Drug information contained herein may be time sensitive. [employer] information has been compiled for use by healthcare practitioners and consumers in the [place] and therefore [employer] does not warrant that uses outside of the [place] are appropriate, unless specifically indicated otherwise. [employer]'s drug information does not endorse drugs, diagnose patients or recommend therapy. [employer] drug information is an informational resource designed [...] effective or appropriate for any given patient. [facility] does not assume any responsibility for any aspect of healthcare administered with the aid of information [facility] provides. The information contained herein is not intended to cover all possible uses, directions, precautions, warnings, drug interactions, allergic reactions, or adverse effects. If you have questions about the drugs you are taking, check with your doctor, nurse or pharmacist. Copyright 3016-9131 [employer]. Version: 7.03. Revision Date: 06/07/2015. Emergency Awareness [...] Assistance with quitting is available by contacting 3-593-GWOH-NOW. This is a free resource providing counseling, [...] range between ( 0.0 and 7.0 ) [place] #: 0.47 K/uL -- Normal range between ( 0.16 and 1.00 ) [place] #: 0.09 x10(3)/uL -- Normal range between ( 0.00 and 0.80 ) [place] %: 8.5 % -- Normal range between [...] was given the opportunity to ask questions. Patient/Outsole Flexer Name: Patient/Outsole Flexer Signature: Relationship to Patient: Clinician/Hospital Outsole Flexer Signature: Date: documented in this encounter Plan of Treatment Not on file documented as of this encounter Visit Diagnoses Not on filedocumented in this encounter Care Teams Coloring Checker Relationship Specialty Start Date End Date Salima Mi DO [address] [facility] [address] [place] [address] (work) PCP - General Family Medicine 02/09/23 documented as of this encounter
--- OUTSIDE RECORDS SUMMARY | 2024-04-10 14:13 | XMS_ITS | Encounter Summary ---
Author Organization [employer] Address [address] [place] [address] Care Team Providers Care Executive Team Leader Name Role Phone Salima Gonzáles Primary Care Provider [phone] Encounter Details Date Type Department Care Team (Late st Contact Info) Description 10/05/2020 Transcribed Document [facility] [place] Family Medicine [address] [place] [address] ProviderQuincy MD [address] [place] [address] Social History Tobacco Use Types Packs/Day [...] these instructions at home: Medicines ??? Take sgpe-ycr-kmjoqml and prescription medicines only as told by [...] provider. Document Revised: 09/09/2019 Document Reviewed: 09/09/2019 ElseCatchThatBus Patient Education ? 2020 [employer] Inc. Ureteroscopy Ureteroscopy is a procedure to [...] including vitamins, herbs, eye drops, creams, and sily-iif-eepcecd medicines. ??? Any problems you or family [...] provider. Document Revised: 04/05/2018 Document Reviewed: 02/02/2017 [employer]Gx[employer] Patient Education ? 2020 [employer]. Dietary Guidelines to Help Prevent Kidney [...] Rhubarb. ? Beets. ? Potato chips and danish fries. ? Nuts. ??? If you regularly take a diuretic medicine, make sure to eat at least 1?2 fruits or vegetables high in potassium each day. These include: ? Avocado. ? Banana. ? Webb, prune, carrot, or tomato juice. ? Baked [...] Casseroles. Pizza. Lasagna. Frozen meals. Potato chips. Turkish fries. Summary ??? You can reduce your [...] provider. Document Revised: 08/13/2019 Document Reviewed: 04/03/2017 ElseCatchThatBus Patient Education ? 2019 [employer]. Electronically signed by [place], [facility] Conversion Iron Worker Apprentice Cerner at 08/23/2022 11:12 AM CDT documented in this encounter Plan of Treatment Not on file documented as of this encounter Visit Diagnoses Not on filedocumented in this encounter Care Teams Executive Team Leader Relationship Specialty Start Date End Date Salima Gonzáles, [address] [address] PCP - General Family Medicine 02/09/23 documented as of this encounter
--- OUTSIDE RECORDS SUMMARY | 2024-04-10 14:13 | XMS_ITS | Encounter Summary ---
Author Organization [employer] Address [address] [place] [address] Care Team Providers Care Publicity Consultant Name Role Phone Salima Gonzáles Primary Care Provider [phone] Encounter Details Date Type Department Care Team (Late st Contact Info) Description 10/11/[address] [facility] [place] [facility] [place] [address] ProviderQuincy MD [address] [place] [address] [phone] Social History Tobacco Use Types Packs/Day Years [...] Policy Numbers : Insurance 1 Health Plan: [facility] MEDICARE REPL Policy Number: [id number] Authorization Number: Insurance Primary Name : [employer]M MEDICARE REPL Policy Number: [id number] Authorization Status-Primary : Awaiting callback Reference Number-Primary : [id number] Authorized Service Begin Date-Primary : 10/03/2020 EDT Authorization Comments-Primary : Remains pending per Availity Historical Authorization Comments-Primary : Comment 1: Email sent to madelyn (PING HOFFMANN RN 10/09/2020 15:11) Comment 2: Clinicals faxed via [employer] for IP approval (DEISY LIRA RN 10/05/2020 14:13) Comment 3: Clinicals submitted via [employer] for IP approval (DEISY LIRA RN 10/04/2020 08:24) PING HOFFMANN RN - 10/11/2020 12:11 EDT Electronically signed by [place] [facility] Conversion Industrial Health Engineer Cerner at 08/23/2022 11:09 AM CDT documented in this encounter Plan of Treatment Not on file documented as of this encounter Visit Diagnoses Not on filedocumented in this encounter Care Teams Publicity Consultant Relationship Specialty Start Date End Date Salima Gonzáles DO [address] [address] PCP - General Family Medicine 02/09/23 documented as of this encounter
--- OUTSIDE RECORDS SUMMARY | 2024-04-10 14:13 | XMS_ITS | Referral Summary ---
Author Organization [employer] Address [address] [place] [address] Care Team Providers Care Operator Lights Name Role Phone Salima Gonzáles DO Primary Care Provider [phone] Social History Tobacco Use Types Packs/Day Years Used Date Smoking Tobacco: Never Assessed Comments Unknown Sex and Gender Information Value Date Recorded Sex Assigned at Not on file Legal Sex Female 2:54 PM CDT Gender Identity Not on file Sexual Orientation Not on file Plan of Treatment Not on file Insurance [facility] Care Teams Operator Lights Relationship Specialty Start Date End Date Salima Gonzáles DO 8 [facility] [address] [place] [address] PCP - General Family Medicine 02/09/23
--- OUTSIDE RECORDS SUMMARY | 2024-04-10 14:13 | XMS_ITS | Encounter Summary ---
Author Organization [employer] Address [address] [place] [address] Care Team Providers Care Word Processor Operator Name Role Phone Salima Gonzáles Primary Care Provider [phone] Encounter Details Date Type Department Care Team (Late st Contact Info) Description 10/13/2020 Transcribed Document [facility] [place] Family Medicine [facility] [place] [address] ProviderQuincy MD [address] [place] [address] [phone] Social History Tobacco Use Types Packs/Day Years [...] [facility] MEDICARE REPL Policy Number: [id number] Authorization Number: Insurance Primary Name : ANTHEM MEDICARE REPL Policy Number: [id number] Authorization Status-Primary : Denied Reference Number-Primary : [id number] Authorized Service Begin Date-Primary : 10/03/2020 EDT Authorization Comments-Primary : Email to Hemalatha/MOSHE Historical Authorization Comments-Primary : Comment 1: Rec fax from [place] 10/12/20 States admission has been denied. Fax to Ping Tabor (TEMI LAMBERT, Machine Tool Technology Instructor 10/12/2020 14:42) Comment 2: Per Madelyn remains pending (PING HOFFMANN RN 10/12/2020 12:06) Comment 3: Faxed dc summary via [employer] (PING HOFFMANN RN 10/11/2020 12:12) Comment 4: Remains pending per Availity (PING HOFFMANN RN 10/11/2020 12:11) Comment 5: Email sent to madelyn (PING HOFFMANN RN 10/09/2020 15:11) Comment 6: Clinicals faxed via [employer] for IP approval (DEISY LIRA RN 10/05/2020 14:13) Comment 7: Clinicals submitted via [employer] for IP approval (DEISY LIRA RN 10/04/2020 08:24) JUSTEN HARTLEY Rn-Utilization Review - 10/13/2020 10:20 EDT documented in this encounter Plan of Treatment Not on file documented as of this encounter Visit Diagnoses Not on filedocumented in this encounter Care Teams Word Processor Operator Relationship Specialty Start Date End Date Salima Gonzáles, 8 [facility] [address] [place] [address] PCP - General Family Medicine 02/09/23 documented as of this encounter
--- OUTSIDE RECORDS SUMMARY | 2024-04-10 14:14 | XMS_ITS | Encounter Summary ---
Author Organization [employer] Address [address] [place] [address] Care Team Providers Care Cut Out Machine Operator Name Role Phone Salima Gonzáles Primary Care Provider [phone] Encounter Details Date Type Department Care Team (Late st Contact Info) Description 10/08/2019 Transcribed Document [facility] [place] [facility] [place] [address] ProviderQuincy MD [address] [place] [address] Social History Tobacco Use Types Packs/Day [...] Kate MD - 10/08/2019 10:35 AM CDT [facility] [place] [address] AMBIKA PIERRE :1965 Visit Time:10/08/2019 What [...] office, November 09 at 11:00am Where: [address] [facility] [address] [place] [id number] Medications What How Much When Instructions Next [...] serving. ??? Talk with a diet and child nutrition director (dietitian) if you have questions about specific [...] Bulgur wheat. Millet. Quinoa. Bran muffins. Popcorn. Jelm wafer crackers. Meats and other proteins [place], kidney, and cox beans. Soybeans. Split peas. [...] Cream cheese. Sour cream. Fats and oils [place]. Beverages Soft drinks. Other foods Cakes and [...] 04/23/2006 Document Revised: 02/25/2018 Document Reviewed: 02/25/2018 [employer] Patient Education ?? 2019 ActivePath. Gastritis, Adult Gastritis is swelling (inflammation) of [...] these instructions at home: Medicines ??? Take oqoa-dag-afxgtau and prescription medicines only as told by [...] 10/09/2008 Document Revised: 09/10/2018 Document Reviewed: 09/10/2018 [employer] Patient Education ?? 2019 ActivePath. Colitis Colitis is inflammation of the colon. [...] you start to feel better. ??? Take wqix-for-hnioevj and prescription medicines only as told by [...] 05/31/2005 Document Revised: 10/24/2018 Document Reviewed: 10/24/2018 [employer] Patient Education ?? 2019 [employer] Inc. Hemorrhoids Hemorrhoids are swollen veins that [...] times a day. General instructions ??? Take opnw-pqi-xvhigoc and prescription medicines only as told by [...] 01/30/2009 Document Revised: 09/12/2018 Document Reviewed: 09/12/2018 [employer] Patient Education ?? 2019 ActivePath. Colonoscopy, Adult, Care After This sheet gives [...] soft and easy to digest. ??? Take cech-lpk-ejraung or prescription medicines only as told by [...] 05/26/2011 Document Revised: 02/21/2018 Document Reviewed: 01/15/2017 [employer] Patient Education ?? 2019 [employer]. Esophagogastroduodenoscopy, Care After Refer to this [...] 04/09/2013 Document Revised: 09/28/2016 Document Reviewed: 03/16/2016 [employer] Patient Education ?? 2019 ActivePath. metronidazole (me irma hawk) FIRST Metronidazole, Flagyl, [...] may report side effects to FDA at 5-836-JPB-1894. What other drugs will affect metronidazole? Sometimes [...] drugs may affect metronidazole, including prescription and knur-tag-puucubw medicines, vitamins, and herbal products. Not all [...] to ensure that the information provided by [employer]. ('Multum') is accurate, up-to-date, and complete, but no guarantee is made to that effect. Drug information contained herein may be time sensitive. [employer] information has been compiled for use by healthcare practitioners and consumers in the [place] and therefore [employer] does not warrant that uses outside of the [place] are appropriate, unless specifically indicated otherwise. studdexs drug information does not endorse drugs, diagnose patients or recommend therapy. studdexs drug information is an informational resource designed [...] effective or appropriate for any given patient. [employer] does not assume any responsibility for any aspect of healthcare administered with the aid of information [employer] provides. The information contained herein is not intended to cover all possible uses, directions, precautions, warnings, drug interactions, allergic reactions, or adverse effects. If you have questions about the drugs you are taking, check with your doctor, nurse or pharmacist. Copyright 2388-3684 [employer]. Version: 12.. Revision Date: 02/25/2018. linaclotide (GENEVIEVE [...] may report side effects to FDA at 3-807-YZI-5230. What other drugs will affect linaclotide? Other drugs may interact with linaclotide, including prescription, grhv-elh-andzxpy, vitamin, and herbal products. Tell your doctor [...] to ensure that the information provided by [employer]. ('Multum') is accurate, up-to-date, and complete, but no guarantee is made to that effect. Drug information contained herein may be time sensitive. [employer] information has been compiled for use by healthcare practitioners and consumers in the [place] and therefore [employer] does not warrant that uses outside of the [place] are appropriate, unless specifically indicated otherwise. studdexs drug information does not endorse drugs, diagnose patients or recommend therapy. studdexs drug information is an informational resource designed [...] effective or appropriate for any given patient. [employer] does not assume any responsibility for any aspect of healthcare administered with the aid of information [employer] provides. The information contained herein is not intended to cover all possible uses, directions, precautions, warnings, drug interactions, allergic reactions, or adverse effects. If you have questions about the drugs you are taking, check with your doctor, nurse or pharmacist. Copyright 3549-8539 [employer]. Version: 4.02. Revision Date: 01/23/2017. pantoprazole (oral/injection) [...] may report side effects to FDA at 9-326-NPE-9428. What other drugs will affect pantoprazole? Tell your doctor about all your other medicines, especially: ?? digoxin; ?? methotrexate; or ?? a diuretic or 'water pill.' This list is not complete. Other drugs may affect pantoprazole, including prescription and hhce-tqg-rxloild medicines, vitamins, and herbal products. Not all [...] to ensure that the information provided by [employer]. ('Multum') is accurate, up-to-date, and complete, but no guarantee is made to that effect. Drug information contained herein may be time sensitive. [employer] information has been compiled for use by healthcare practitioners and consumers in the [place] and therefore [employer] does not warrant that uses outside of the [place] are appropriate, unless specifically indicated otherwise. studdexs drug information does not endorse drugs, diagnose patients or recommend therapy. studdexs drug information is an informational resource designed [...] effective or appropriate for any given patient. [facility] does not assume any responsibility for any aspect of healthcare administered with the aid of information [facility] provides. The information contained herein is not intended to cover all possible uses, directions, precautions, warnings, drug interactions, allergic reactions, or adverse effects. If you have questions about the drugs you are taking, check with your doctor, nurse or pharmacist. Copyright 8453-1115 [facility]. Version: 19.02. Revision Date: 10/30/2017. Emergency Awareness [...] Assistance with quitting is available by contacting 7-017-IRCR-NOW. This is a free resource providing counseling, [...] was given the opportunity to ask questions. Patient/Casework Supervisor Name: Patient/Casework Supervisor Signature: Relationship to Patient: Clinician/Hospital Casework Supervisor Signature: Date: documented in this encounter Plan of Treatment Not on file documented as of this encounter Visit Diagnoses Not on filedocumented in this encounter Care Teams Cut Out Machine Operator Relationship Specialty Start Date End Date Salima Gonzáles DO 8 [address] [facility] [address] [place] [phone] PCP - General Family Medicine 02/09/23 documented as of this encounter
--- OUTSIDE RECORDS SUMMARY | 2024-04-10 14:14 | XMS_ITS | Encounter Summary ---
Author Organization [facility] [employer] Address [address] [place] [address] Care Team Providers Care Measuring Machine Tender Name Role Phone Unavailable Primary Care Provider Unavailabl e Encounter Details Date Type Department Care Team (Late st Contact Info) Description 10/06/2019 Historic Encounter [facility] [address] [place] [address] Provider, [facility] Historical Social History Tobacco Use Types [...] Date/Time Associated Diagnosis Comments CORONAVIRUS 2019 NOVEL ([facility] DATA CONV) Routine 10/06/2019 12:15 PM EDT documented in this encounter Results * CORONAVIRUS 2019 NOVEL ([facility] DATA CONV) (10/06/2019 12:15 PM EDT) SARS-CoV-2 ([id number]) Negative Negative 10/08/2019 8:16 AM EDT [facility] Comment:Missing Attachment R eference Lab Report Can be viewed in source system 10/06/2019 12:1 5 PM EDT 10/06/2019 5:09 PM EDT [facility] Historical Provider BODY FLUIDS AND STOOLS ORDERABLES Final Result [facility] [address] [phone] documented in this encounter Visit Diagnoses Not on filedocumented in this encounter
--- OUTSIDE RECORDS SUMMARY | 2024-04-10 14:14 | XMS_ITS | Encounter Summary ---
Author Organization [employer] Address [address] [place] [address] Care Team Providers Care Pulper Name Role Phone Salima Gonzáles Primary Care Provider [phone] Encounter Details Date Type Department Care Team (Late st Contact Info) Description 10/04/2020 Transcribed Document [facility] [place] Family Medicine [address] [place] [address] ProviderQuincy MD [address] [place] [address] [phone] Social History Tobacco Use Types Packs/Day Years [...] needed N.p.o. currently, urology consultation pending Tamsulosin #Zbx-ppfmxwh-zmaienyeq diabetes Hold home medications Cover with SSI [...] Lymph # 2.58 x10(3)/uL 10/03/2020 19:07 EDT [place] % 8.5 % 10/04/2020 06:54 EDT [place] % 7.7 % 10/03/2020 19:07 EDT [place] # 0.47 K/uL 10/04/2020 06:54 EDT [place] # 0.56 K/uL 10/03/2020 19:07 EDT Eos [...] 1.0 10/04/2020 06:54 EDT Electronically signed by [facility], [facility] Conversion Labor Relations Teacher Cerner at 08/23/2022 11:00 AM CDT documented in this encounter Plan of Treatment Not on file documented as of this encounter Visit Diagnoses Not on filedocumented in this encounter Care Teams Pulper Relationship Specialty Start Date End Date Salima Gonzáles, [address] [address] PCP - General Family Medicine 02/09/23 documented as of this encounter
--- OUTSIDE RECORDS SUMMARY | 2024-04-10 14:14 | XMS_ITS | Encounter Summary ---
Author Organization [employer] Address [address] [place] [address] Care Team Providers Care Project Crew Worker Name Role Phone Salima Gonzáles Primary Care Provider [phone] Encounter Details Date Type Department Care Team (Late st Contact Info) Description 10/04/2020 Transcribed Document [facility] [place] [address] [place] [address] ProviderQuincy MD [address] [place] [phone] Social History Tobacco Use Types Packs/Day Years [...] Left renal calculus. PLAN: Ureteroscopy with laser. /[id number] Gatito Menendez MD FP/AQ / FP / MODL /[id number] documented in this encounter Plan of Treatment Not on file documented as of this encounter Visit Diagnoses Not on filedocumented in this encounter Care Teams Project Crew Worker Relationship Specialty Start Date End Date Salima Gonzáles, 8 [address] [address] PCP - General Family Medicine 02/09/23 documented as of this encounter
--- OUTSIDE RECORDS SUMMARY | 2024-04-10 14:14 | XMS_ITS | Encounter Summary ---
Author Organization [employer] Address [address] [place] [address] Care Team Providers Care Polisher And Buffer Name Role Phone Salima Mi DO Primary Care Provider [phone] Encounter Details Date Type Department Care Team (Late st Contact Info) Description 10/03/2020 Transcribed Document [facility] [place] [address] [place] [address] ProviderQuincy MD [address] [place] [address] [phone] Social History Tobacco Use Types Packs/Day Years [...] : 1965 Primary Care Provider SALIMA MI DO-[facility] History of Present Illness Ms. Aponte is a 54-year-old female with puz-jrnvmyb-tsbymrprr diabetes, asthma and COPD with continued tobacco use, history of kidney stones, obesity. She was transferred to [facility] from [facility] on 10/03 for hydronephrosis and obstructing [...] needed Consult urology, n.p.o. after midnight Tamsulosin #Ikq-dyycwbg-lxkqkyujr diabetes Hold home medications Cover with SSI [...] on filedocumented in this encounter Care Teams Polisher And Buffer Relationship Specialty Start Date End Date Salima Mi, 8 [facility] [address] [place] [address] PCP - General Family Medicine 02/09/23 documented as of this encounter
--- OUTSIDE RECORDS SUMMARY | 2024-04-10 14:14 | XMS_ITS | Encounter Summary ---
Author Organization [employer] Address [address] [place] [address] Care Team Providers Care Licensed Mortgage Loan Officer Name Role Phone Salima Gonzáles Primary Care Provider [phone] Encounter Details Date Type Department Care Team (Late st Contact Info) Description 10/04/[address] [facility] [place] [address] [place] [address] ProviderQuincy MD [address] [place] [address] Social History Tobacco Use Types Packs/Day [...] Kate MD - 10/04/2020 1:16 PM CDT [facility] Main OR PACU Summary Primary Physician: ANNABEL ZAMBRANO MD-URO Finalized Date/Time: 10/04/20 15:07:54 Pt. Name: AMBIKA PIERRE./Sex: 1965 Female Med Rec #: [id number] Physician: SUREKHA ARGUELLES MD Financial #: [id number] Pt. Type: I Room/Bed: [facility]/1 Admit/Disch: 10/03/20 18:06:00 - Institution: [facility] Main OR PACU I Case Times Entry 1 In PACU I 10/04/20 13:58:00 Ready for PACU 10/04/20 14:40:00 Discharge Discharge from PACU 10/04/20 14:40:00 I Last Modified By: ESPERANZA LAWRENCE RN 10/04/20 15:07:45 Finalized By: ESPERANZA LAWRENCE, RN Document Signatures Signed By: ESPERANZA LAWRENCE RN 10/04/20 15:07 Electronically signed by [place] [facility] Conversion Emergency Medical Technician Cerner at 08/23/2022 11:13 AM CDT documented in this encounter Plan of Treatment Not on file documented as of this encounter Visit Diagnoses Not on filedocumented in this encounter Care Teams Licensed Mortgage Loan Officer Relationship Specialty Start Date End Date Salima Gonzáles, [address] [address] PCP - General Family Medicine 02/09/23 documented as of this encounter
--- OUTSIDE RECORDS SUMMARY | 2024-04-10 14:14 | XMS_ITS | Encounter Summary ---
Author Organization [employer] Address [address] [place] [address] Care Team Providers Care Pantograph I Engraver Name Role Phone Salima Gonzáles Primary Care Provider [phone] Encounter Details Date Type Department Care Team (Late st Contact Info) Description 10/04/2020 Transcribed Document [facility] [place] Family [place] [facility] [place] [address] ProviderQuincy MD [address] [place] [address] [phone] Social History Tobacco Use Types Packs/Day Years [...] : Insurance 1 Health Plan: [facility] MEDICARE REPL Policy Number: [id number] Authorization Number: Insurance Primary Name : [employer]M MEDICARE REPL Policy Number: [id number] Authorization Status-Primary : Awaiting callback Reference Number-Primary : [id number] Authorized Service Begin Date-Primary : 10/03/2020 EDT Authorization Comments-Primary : Clinicals submitted via [employer] for IP approval Historical Authorization Comments-Primary : No Authorization Comments Found DEISY LIRA, RN - 10/04/2020 8:24 EDT Electronically signed by [place] [facility] Conversion Sterile Processing Manager Paramjitner at 08/23/2022 11:14 AM CDT documented in this encounter Plan of Treatment Not on file documented as of this encounter Visit Diagnoses Not on filedocumented in this encounter Care Teams Pantograph I Engraver Relationship Specialty Start Date End Date Salima Gonzáles, 8 [facility] [address] [place] [address] PCP - General Family Medicine 02/09/23 documented as of this encounter
--- OUTSIDE RECORDS SUMMARY | 2024-04-10 14:14 | XMS_ITS | Encounter Summary ---
Author Organization [employer] Address [address] [place] [address] Care Team Providers Care Lan Manager Name Role Phone Salima Gonzáles Primary Care Provider [phone] Encounter Details Date Type Department Care Team (Late st Contact Info) Description 10/03/2020 Transcribed Document [facility] [place] [facility] [place] [address] ProviderQuincy MD [address] [place] [address] Social History Tobacco Use Types Packs/Day [...] : daughter Emergency Contact #2 : Ray Apnote Emergency Contact #2 Emergency Contact #2 Relationship : father Primary Language : Slovenian Communication Barrier : None Tassel Snipper Needed : No Cassie Colon RN - [...] Scale Risk Level : 25-45 Medium Risk [place] Fall Interventions : Adequate lighting, Assistive devices [...] Source : Stated Height Entry Format : Harnett Height, Feet : 5 ft(Converted to: 152 cm, 60 Inch) Height, Inches : 1 Inch(Converted to: 0 ft 1 Inch, 2.54 cm) Clinical Height : 154.94 cm Weight Source : Bed scale Weight Entry Format : Harnett Clinical Dosing Weight : 118.18 kg Weight, Pounds : 260 lb Body Surface Area (BSA) : 2.11 m2 Body Mass Index : 49.2 kg/m2 (>HHI) Benedict Body Weight : 47 kg Cassie Colon [...] Cassie Colon RN - 10/03/2020 18:30 EDT [place] Suicide Severity Rating Scale (C-SSRS) CSSRS Past [...] 10/03/2020 18:30 EDT Electronically signed by [facility] Conversion Security Systems Manager Cerner at 08/23/2022 10:51 AM CDT documented in this encounter Plan of Treatment Not on file documented as of this encounter Visit Diagnoses Not on filedocumented in this encounter Care Teams Lan Manager Relationship Specialty Start Date End Date Salima Gonzáles DO 8 [facility] [address] [place] [address] PCP - General Family Medicine 02/09/23 documented as of this encounter
--- OUTSIDE RECORDS SUMMARY | 2024-04-10 14:14 | XMS_ITS | Encounter Summary ---
Author Organization [employer] Address [address] [place] [address] Care Team Providers Care Wine Maker Name Role Phone Unavailable Primary Care Provider Unavailabl e Encounter Details Date Type Department Care Team (Late st Contact Info) Description 10/03/2020 Historic Encounter [address] [address] Provider [facility] Historical Social History Tobacco [...] PANEL ([facility] DATA CONV) Routine 10/03/2020 7:07 PM EDT documented in this encounter Results * (ABNORMAL) CMP COMPREHENSIVE METABOLIC PANEL ([facility] BK DATA CONV) (10/03/2020 7:07 [...] 106 mg/dL 10/03/2020 11:32 PM EDT Comment: [employer] has become aware of sulfasalazine and sulfapyridine [...] Units/Lit er 10/03/2020 11:32 PM EDT Comment: [employer] has become aware of sulfasalazine and sulfapyridine [...] Units/Lit er 10/03/2020 11:32 PM EDT Comment: [employer] has become aware of sulfasalazine and sulfapyridine [...] PM EDT 10/03/2020 11:12 PM EDT Result [facility] Historical Provider LAB BLOOD ORDERABLES Fi nal Result [facility] [address] [phone] documented in this encounter Visit Diagnoses Not on filedocumented in this encounter
--- OUTSIDE RECORDS SUMMARY | 2024-04-10 14:14 | XMS_ITS | Encounter Summary ---
Author Organization Healthcare Address [address] [place] [address] Care Team Providers Care Electroplating Laborer Name Role Phone Salima Gonzáles DO Primary Care Provider [phone] Encounter Details Date Type Department Care Team [...] documented as of this encounter Care Teams Electroplating Laborer Relationship Specialty Start Date End Date Salima Gonzáles DO [address] [place], [place] [address] [place] [address] PCP - General 09/17/20 documented as of this encounter
--- OUTSIDE RECORDS SUMMARY | 2024-04-10 14:14 | XMS_ITS | Encounter Summary ---
Author Organization [employer] Address [address] [place] [address] Care Team Providers Care Contour Sander Name Role Phone Salima Gonzáles Primary Care Provider [phone] Encounter Details Date Type Department Care Team (Late st Contact Info) Description 10/03/2020 Transcribed Document [facility] [place] [address] [place] [address] ProviderQuincy MD [address] [place] [address] Social History Tobacco Use Types Packs/Day [...] Hoa Coleman RN - 10/05/2020 13:39 EDT Electronically signed by Nuzhat Barahona Conversion Recyclable Materials Sorter Cerner at 08/27/2022 3:31 PM CDT documented in this encounter Plan of Treatment Not on file documented as of this encounter Visit Diagnoses Not on filedocumented in this encounter Care Teams Contour Sander Relationship Specialty Start Date End Date Salima Gonzáles, [address] [address] PCP - General Family Medicine 02/09/23 documented as of this encounter
--- OUTSIDE RECORDS SUMMARY | 2024-04-10 14:14 | XMS_ITS | Encounter Summary ---
Author Organization Healthcare Address [address] [place] [address] Care Team Providers Care School Patrol Name Role Phone Salima Gonzáles DO Primary Care Provider [phone] Encounter Details Date Type Department Care Team (Late st Contact Info) Description 03/20/2023 Telephone [facility] Radiology [address] [place] [address] Sophie Prince RN [facility] Social History [...] documented as of this encounter Care Teams School Patrol Relationship Specialty Start Date End Date Salima Gonzáles DO [address] [place] [address] PCP - General 09/17/20 documented as of this encounter
--- OUTSIDE RECORDS SUMMARY | 2024-04-10 14:14 | XMS_ITS | Encounter Summary ---
Author Organization [employer] Address [address] [place] [address] Care Team Providers Care Cabinetmaker Apprentice Name Role Phone Salima Gonzáles Primary Care Provider [phone] Encounter Details Date Type Department Care Team (Late st Contact Info) Description 10/03/2020 Transcribed Document [facility] [place] [address] [place] [address] ProviderQuincy MD [address] [place] [address] Social History Tobacco Use Types Packs/Day [...] on filedocumented in this encounter Care Teams Cabinetmaker Apprentice Relationship Specialty Start Date End Date Salima Gonzáles DO [address] [phone] PCP - General Family Medicine 02/09/23 documented as of this encounter
--- OUTSIDE RECORDS SUMMARY | 2024-04-10 14:14 | XMS_ITS | Encounter Summary ---
Author Organization [employer] Address [address] [place] [address] Care Team Providers Care Hogshead Mat Assembler Name Role Phone Unavailable Primary Care Provider Unavailabl e Encounter Details Date Type Department Care Team (Late st Contact Info) Description 10/03/2020 Historic Encounter [address] [address] Provider [facility] Historical Social History Tobacco Use [...] Priority Date/Time Associated Diagnosis Comments AUTOMATED DIFFERENTIAL ([facility] DATA CONV) Routine 10/03/2020 7:07 PM EDT documented in this encounter Results * (ABNORMAL) AUTOMATED DIFFERENTIAL ([facility] B[facility] DATA CONV) (10/03/2020 7:07 PM EDT) Neut% 53.9 34.0 - 71.0 % 10/03/2020 11:13 PM EDT Lymph% 35.6 19.3 - 53.1 % 10/03/2020 11:13 PM EDT Pope% 7.7 3.0 - 9.0 % 10/03/2020 11:13 PM EDT Eos% 1.5 0.0 - 7.0 % 10/03/2020 11:13 PM EDT Baso% 0.6 0.0 - 1.5 % 10/03/2020 11:13 PM EDT IG% 0.70(H) 0.00 - 0.60 % 10/03/2020 11:13 PM EDT Neut# 3.90 1.56 - 6.13 K/uL 10/03/2020 11:13 PM EDT Lymph# 2.58 1.00 - 3.90 x10(3)/uL 10/03/2020 11:13 PM EDT Pope# 0.56 0.16 - 1.00 K/uL 10/03/2020 11:13 PM EDT Eos# 0.11 0.00 - 0.80 x10(3)/uL 10/03/2020 11:13 PM EDT Baso# 0.04 0.00 - 0.20 x10(3)/uL 10/03/2020 11:13 PM EDT IG# 0.05 0.00 - 0.05 x10(3)/uL 10/03/2020 11:13 PM EDT Blood 10/03/2020 7:07 PM EDT 10/03/2020 11:12 PM EDT Narrative [facility] - 10/03/2020 11:14 PM EDT Added by Discern Expert us Sle Historical Provider LAB BLOOD ORDERABLES Fi nal Result [facility] [address] [phone] documented in this encounter Visit Diagnoses Not on filedocumented in this encounter
--- OUTSIDE RECORDS SUMMARY | 2024-04-10 14:14 | XMS_ITS | Encounter Summary ---
Author Organization [employer] Address [address] [place] [address] Care Team Providers Care Scow Derrick Operator Name Role Phone Salima Gonzáles Primary Care Provider [phone] Encounter Details Date Type Department Care Team (Late st Contact Info) Description 10/08/2019 Transcribed Document [facility] [place] [address] ProviderQuincy MD [address] [place] [address] Social History Tobacco Use Types Packs/Day [...] Kate MD - 10/08/2019 10:26 AM CDT [facility] [place] [address] AMBIKA PIERRE :1965 Visit Time:10/08/2019 What [...] office, November 09 at 11:00am Where: [address] [facility] [address] [place] [id number]- Medications What How Much When Instructions Next [...] ??? Talk with a diet and nutrition aide (dietitian) if you have questions about specific [...] Bulgur wheat. Millet. Quinoa. Bran muffins. Popcorn. Temperance wafer crackers. Meats and other proteins [place], kidney, and cox beans. Soybeans. Split peas. [...] Cream cheese. Sour cream. Fats and oils Arrey. Beverages Soft drinks. Other foods Cakes and [...] 04/23/2006 Document Revised: 02/25/2018 Document Reviewed: 02/25/2018 [employer] Patient Education ?? 2019 [employer]. Gastritis, Adult Gastritis is swelling (inflammation) of [...] these instructions at home: Medicines ??? Take beuo-zto-zuzypzj and prescription medicines only as told by [...] 10/09/2008 Document Revised: 09/10/2018 Document Reviewed: 09/10/2018 [employer] Patient Education ?? 2019 [employer]. Colitis Colitis is inflammation of the colon. [...] you start to feel better. ??? Take uclg-zoq-wvwsmoa and prescription medicines only as told by [...] 05/31/2005 Document Revised: 10/24/2018 Document Reviewed: 10/24/2018 [employer] Patient Education ?? 2019 [employer] Hemorrhoids Hemorrhoids are swollen veins that [...] times a day. General instructions ??? Take huwf-gep-phoqjse and prescription medicines only as told by [...] 01/30/2009 Document Revised: 09/12/2018 Document Reviewed: 09/12/2018 [employer] Patient Education ?? 2019 [employer]. Colonoscopy, Adult, Care After This sheet gives [...] soft and easy to digest. ??? Take jccc-prj-tkycdbv or prescription medicines only as told by [...] 05/26/2011 Document Revised: 02/21/2018 Document Reviewed: 01/15/2017 [employer] Patient Education ?? 2019 [employer] Esophagogastroduodenoscopy, Care After Refer to this [...] 04/09/2013 Document Revised: 09/28/2016 Document Reviewed: 03/16/2016 [employer] Patient Education ?? 2019 [employer]. metronidazole (me irma hawk) FIRST Metronidazole, Flagyl, [...] (more likely to occur while taking metronidazole care home): ?? numbness, tingling, or burning pain in [...] may report side effects to FDA at 0-476-RQT-9770. What other drugs will affect metronidazole? Sometimes [...] drugs may affect metronidazole, including prescription and zlhf-rbk-qruswwb medicines, vitamins, and herbal products. Not all [...] to ensure that the information provided by [employer]. ('[employer]') is accurate, up-to-date, and complete, but no guarantee is made to that effect. Drug information contained herein may be time sensitive. [employer] information has been compiled for use by healthcare practitioners and consumers in the [place] and therefore [employer] does not warrant that uses outside of the [place] are appropriate, unless specifically indicated otherwise. [employer] drug information does not endorse drugs, diagnose patients or recommend therapy. [employer] drug information is an informational resource designed [...] effective or appropriate for any given patient. [employer] does not assume any responsibility for any aspect of healthcare administered with the aid of information [employer] provides. The information contained herein is not intended to cover all possible uses, directions, precautions, warnings, drug interactions, allergic reactions, or adverse effects. If you have questions about the drugs you are taking, check with your doctor, nurse or pharmacist. Copyright 0190-4400 [employer]. Version: 12.. Revision Date: 02/25/2018. linaclotide (GENEVIEVE [...] may report side effects to FDA at 6-252-KMV-5488. What other drugs will affect linaclotide? Other drugs may interact with linaclotide, including prescription, sjdi-zkm-umgdvvk, vitamin, and herbal products. Tell your doctor [...] to ensure that the information provided by [employer] ('[employer]') is accurate, up-to-date, and complete, but no guarantee is made to that effect. Drug information contained herein may be time sensitive. [employer] information has been compiled for use by healthcare practitioners and consumers in the [place] and therefore [employer] does not warrant that uses outside of the [place] are appropriate, unless specifically indicated otherwise. [employer] drug information does not endorse drugs, diagnose patients or recommend therapy. [employer] drug information is an informational resource designed [...] effective or appropriate for any given patient. [employer] does not assume any responsibility for any aspect of healthcare administered with the aid of information [employer] provides. The information contained herein is not intended to cover all possible uses, directions, precautions, warnings, drug interactions, allergic reactions, or adverse effects. If you have questions about the drugs you are taking, check with your doctor, nurse or pharmacist. Copyright 6898-2535 [employer]. Version: 4.02. Revision Date: 01/23/2017. pantoprazole (oral/injection) [...] a broken bone while taking this medicine care home or more than once per day. What [...] may report side effects to FDA at 4-065-FPE-9930. What other drugs will affect pantoprazole? Tell your doctor about all your other medicines, especially: ?? digoxin; ?? methotrexate; or ?? a diuretic or 'water pill.' This list is not complete. Other drugs may affect pantoprazole, including prescription and jwtn-nrn-uoexfcq medicines, vitamins, and herbal products. Not all [...] to ensure that the information provided by [employer] ('[employer]') is accurate, up-to-date, and complete, but no guarantee is made to that effect. Drug information contained herein may be time sensitive. [employer] information has been compiled for use by healthcare practitioners and consumers in the [place] and therefore [employer] does not warrant that uses outside of the [place] are appropriate, unless specifically indicated otherwise. [employer] drug information does not endorse drugs, diagnose patients or recommend therapy. [employer] drug information is an informational resource designed [...] effective or appropriate for any given patient. [facility] does not assume any responsibility for any aspect of healthcare administered with the aid of information [facility] [facility] provides. The information contained herein is not intended to cover all possible uses, directions, precautions, warnings, drug interactions, allergic reactions, or adverse effects. If you have questions about the drugs you are taking, check with your doctor, nurse or pharmacist. Copyright 2260-7601 [facility]. Version: 19.02. Revision Date: 10/30/2017. Emergency Awareness [...] Assistance with quitting is available by contacting 5-768-WDFR-NOW. This is a free resource providing counseling, [...] was given the opportunity to ask questions. Patient/Call Center Specialist Name: Patient/Call Center Specialist Signature: Relationship to Patient: Clinician/Hospital Call Center Specialist Signature: Date: documented in this encounter Plan of Treatment Not on file documented as of this encounter Visit Diagnoses Not on filedocumented in this encounter Care Teams Scow Derrick Operator Relationship Specialty Start Date End Date Salima Gonzáles DO 8 [address] [facility] [address] [place] [phone] PCP - General Family Medicine 02/09/23 documented as of this encounter
--- OUTSIDE RECORDS SUMMARY | 2024-04-10 14:14 | XMS_ITS | Encounter Summary ---
Author Organization [employer] Address [address] [place] [address] Care Team Providers Care Python Developer Name Role Phone Salima Gonzáles DO Primary Care Provider [phone] Encounter Details Date Type Department Care Team (Late st Contact Info) Description 10/08/2019 Transcribed Document [facility] [place] [facility] [place] [address] ProviderQuincy MD [address] [place] [address] Social History Tobacco Use Types Packs/Day [...] Kate MD - 10/08/2019 9:47 AM CDT [facility] Endo PACU Summary Primary Physician: WARREN MANRIQUE MD Finalized Date/Time: 10/08/19 10:47:05 Pt. Name: AMBIKA PIERRE/Sex: 1965 Female Med Rec #: [id number] Physician: WARREN MANRIQUE MD Financial #: [id number] Pt. Type: O Room/Bed: / Admit/Disch: 10/08/19 08:47:00 - Institution: [facility] PACU Case Times Entry 1 In PACU I 10/08/19 10:09:00 Ready for PACU 10/08/19 10:42:00 Discharge Discharge from PACU 10/08/19 10:45:00 I Last Modified By: Yasmine Al RN 10/08/19 10:43:05 [facility] Endo PACU Case Times Audit 10/08/19 10:45:09 Sliver Handler: [id number] Modifier: [id number] <+> 1 Discharge from PACU I Finalized By: Yasmine Al RN Document Signatures Signed By: Yasmine Al RN 10/08/19 10:47 Electronically signed by [facility] Conversion Circular Distributor Cerner at 08/23/2022 10:59 AM CDT documented in this encounter Plan of Treatment Not on file documented as of this encounter Visit Diagnoses Not on filedocumented in this encounter Care Teams Python Developer Relationship Specialty Start Date End Date Salima Gonzáles, 8 [facility] [address] [place] [address] PCP - General Family Medicine 02/09/23 documented as of this encounter
--- OUTSIDE RECORDS SUMMARY | 2024-04-10 14:14 | XMS_ITS | Encounter Summary ---
Author Organization [employer] Address [address] [place] [address] Care Team Providers Care Drug Abuse Resistance Education Officer Name Role Phone Unavailable Primary Care Provider Unavailabl e Encounter Details Date Type Department Care Team (Late st Contact Info) Description 10/08/2019 Historic Encounter [address] [address] [facility] Historical Social History Tobacco [...] - 110 mg/dL 10/08/2019 1:26 PM EDT [facility] Critical Care Paramedic [id number] 10/08/2019 1:26 PM EDT [facility] Device SN [id number] 10/08/2019 1:26 PM EDT [facility] Device Comment1 No action Require 10/08/2019 1:26 PM EDT [facility] Blood 10/08/2019 9:26 AM EDT 10/08/2019 1:35 PM EDT us Sle Historical Provider POINT OF CARE TEST MARIMAR BRISCOE Final Result [facility] [address] [place] [address], [facility] [phone] documented in this encounter Visit Diagnoses Not on filedocumented in this encounter
--- OUTSIDE RECORDS SUMMARY | 2024-04-10 14:14 | XMS_ITS | Encounter Summary ---
Author Organization [employer] Address [address] [place] [address] Care Team Providers Care Electronic Funds Transfer Coordinator Name Role Phone Salima Gonzáles Primary Care Provider [phone] Encounter Details Date Type Department Care Team (Late st Contact Info) Description 10/04/2020 Transcribed Document [facility] [place] [address] [place] [address] ProviderQuincy MD [address] [place] [address] Social History Tobacco Use Types Packs/Day [...] on filedocumented in this encounter Care Teams Electronic Funds Transfer Coordinator Relationship Specialty Start Date End Date Salima Gonzáles, [address] [address] PCP - General Family Medicine 02/09/23 documented as of this encounter
--- OUTSIDE RECORDS SUMMARY | 2024-04-10 14:14 | XMS_ITS | Encounter Summary ---
Author Organization [employer] Address [address] [place] [address] Care Team Providers Care Quill Reamer Name Role Phone Unavailable Primary Care Provider Unavailabl e Encounter Details Date Type Department Care Team (Late st Contact Info) Description 10/04/2020 Historic Encounter [address] [address] Provider [facility] Historical Social History Tobacco Use [...] Associated Diagnosis Comments CBC W/ AUTO DIFF ([facility] DATA CONV) Routine 10/04/2020 6:54 AM EDT documented in this encounter Results * (ABNORMAL) CBC W/ AUTO DIFF ([facility] BKR DATA CONV) (10/04/2020 6:54 AM EDT) [...] 6:54 AM EDT 10/04/2020 11:13 AM EDT [facility] Historical Provider LAB BLOOD ORDERABLES Fi nal Result [facility] [address] [phone] documented in this encounter Visit Diagnoses Not on filedocumented in this encounter
--- OUTSIDE RECORDS SUMMARY | 2024-04-10 14:14 | XMS_ITS | Encounter Summary ---
Author Organization [employer] Address [address] [place] [address] Care Team Providers Care Senior Estimator Name Role Phone Salima Gonzáles DO Primary Care Provider [phone] Encounter Details Date Type Department Care Team (Late st Contact Info) Description 10/04/2020 Transcribed Document [facility] [place] Family Medicine [address] [place] [address] ProviderQuincy MD [address] [place] [address] Social History Tobacco Use Types Packs/Day [...] Kate MD - 10/04/2020 1:16 PM CDT [facility] Main OR IntraOp Summary Primary Physician: ANNABEL ZAMBRANO MD-URO Finalized Date/Time: 10/10/20 09:57:38 Pt. Name: JACOB VASQUEZAMBIKA D.O.B./Sex: 1965 Female Med Rec #: [id number] Physician: SUREKHA ARGUELLES MD Financial #: [id number] Pt. Type: I Room/Bed: [facility]/ Admit/Disch: 10/03/20 18:06:00 - 10/05/20 16:59:00 Institution: [facility] IntraOp Case Attendance Entry 1 Entry 2 Entry 3 Case Attendee ANNABEL ZAMBRANO MD-URO Neha Duarte, Mendel Pierce, RN Role Performed Surgeon/Proceduralist, Fraud Analyst, First Fraud Analyst, Second First Time In 10/04/20 13:03:00 10/04/20 13:03:00 10/04/20 13:03:00 Time Out 10/04/20 13:54:00 10/04/20 13:54:00 10/04/20 13:54:00 Procedure Ureteroscopy(Left) Ureteroscopy(Left) Ureteroscopy(Left) Other Attendee LASER Superficial Wound Closed By: Last Modified By: Neha Duarte, Neha Fleming, Neha Fleming Rn 10/04/20 13:54:29 10/04/20 13:54:29 10/04/20 13:54:29 Entry 4 Entry 5 Case Attendee Prema Rojas, VERONICA AU MD-ANS Litigation Attorney Role Performed Scrub, First Anesthesiologist Time In 10/04/20 13:03:00 10/04/20 13:03:00 Time Out 10/04/20 13:54:00 10/04/20 13:54:00 Procedure Ureteroscopy(Left) Ureteroscopy(Left) Other Attendee Superficial Wound Closed By: Last Modified By: Neha Duarte Rn Moore, Kimberly A, Rn 10/04/20 13:54:29 10/04/20 13:54:29 [facility] IntraOp Case Attendance Audit 10/04/20 13:54:29 Plate Glass Installer Helper: [id number] Modifier: [id number] 1 <+> Time Out 1 <*> Procedure Ureteroscopy(Left) 2 <+> Time Out 2 <*> Procedure Ureteroscopy(Left) 3 <+> Time Out 3 <*> Procedure Ureteroscopy(Left) 4 <+> Time Out 4 <*> Procedure Ureteroscopy(Left) 5 <+> Time Out 5 <*> Procedure Ureteroscopy(Left) 10/04/20 13:43:04 Plate Glass Installer Helper: [id number] Modifier: [id number] <+> 1 Time In <+> 1 Procedure 2 <+> Time In 2 <*> Procedure Ureteroscopy(Left) 3 <+> Time In 3 <*> Procedure Ureteroscopy(Left) 4 <+> Time In 4 <*> Procedure Ureteroscopy(Left) 5 <+> Time In 5 <*> Procedure Ureteroscopy(Left) [facility] IntraOp Case Times Entry 1 Patient In Room Time 10/04/20 13:03:00 Out Room Time 10/04/20 13:54:00 Anesthesia Start Time 10/04/20 13:03:00 Stop Time 10/04/20 13:54:00 Surgery / Procedure Times Start Time 10/04/20 13:16:00 Stop Time 10/04/20 13:47:00 Last Modified By: Neha Duarte Rn 10/04/20 13:54:29 [facility] IntraOp Case Times Audit 10/04/20 13:54:29 Plate Glass Installer Helper: [id number] Modifier: [id number] <+> 1 Out Room Time <+> 1 Stop Time 10/04/20 13:48:00 Plate Glass Installer Helper: [id number] Modifier: [id number] <+> 1 Stop Time [facility] IntraOp Departure from OR Entry 1 Integumentary Assessment Integumentary WDL Assessment WDL Transfer/Handoff Transfer to PACU Phase I Handoff Method Bedside/Face to face, Phone call, Online nursing summary Post-op Transport Stretcher/Gurney Via Patient Transport Neha Duarte Rn, Accompanied by VERONICA AU MD-ANS Last Modified By: Neha Duarte Rn 10/04/20 13:38:09 [facility] IntraOp Fire Risk Assessment Entry 1 [...] Modified By: Neha Duarte Rn 10/04/20 13:38:19 [facility] IntraOp General Case Retail Interior Designer 1 Case Information OR Cysto 01 [facility] Case Level 1 Room Verified Yes Wound Class II - Clean-Contaminated Specialty Urology Anesthesia Type General ASA Class 3E Diagnosis Preop Diagnosis LEFT RENAL STONE Postop Same As Preop No Postop Diagnosis SEE MD POST OP NOTES Last Modified By: Neha Duarte Rn 10/04/20 13:41:52 [facility] IntraOp Implant Log Entry 1 Type Implant (Synthetic) Implant Log Implant Type Other Implant STENT URET BRAID + Identification [id number] Description Implant Quantity 1 Implant Site LEFT URETER Implant [place] Identification Sci:Urology/Gynecology Hadoop Administrator Name: Implant [id number] Identification Catalog Number Implant Expiration 03/25/23 Date Tissue Implant Last Modified By: Neha Duarte Rn 10/04/20 13:44:42 [facility] IntraOp Intraoperative Assessment Entry 1 Handoff [...] Modified By: Neha Duarte Rn 10/04/20 13:42:00 [facility] IntraOp Patient Positioning Entry 1 Procedure [...] Modified By: Neha Duarte Rn 10/04/20 13:42:19 [facility] IntraOp Sign In Entry 1 Patient, [...] Modified By: Neha Duarte Rn 10/04/20 13:42:22 [facility] IntraOp Sign Out Entry 1 RN [...] Modified By: Neha Duarte Rn 10/04/20 13:42:31 [facility] IntraOp Skin Prep Entry 1 Procedure Ureteroscopy(Left) Prescribed N/A Pre-Surgical Prep Completed Prep Area genitalia Intraop Prep Integumentary WDL Assessment WDL Prep Agents Betadine solution Prep by Mendel Borrego RN Hair Removal Methods No hair removal performed Last Modified By: Neha Duarte Rn 10/04/20 13:42:55 [facility] Intra Surgical Procedures Entry 1 Procedure Ureteroscopy Modifiers Left Additional URETEROSCOPY WITH LASER Procedure LEFT Description Primary Procedure Yes Primary Surgeon ANNABEL ZAMBRANO MD-URO Start 10/04/20 13:16:00 Stop 10/04/20 13:47:00 Anesthesia Type General Specialty Urology Wound Class II - Clean-Contaminated Last Modified By: Neha Duarte Rn 10/04/20 13:48:02 [facility] Intra Surgical Procedures Audit 10/04/20 13:48:02 Plate Glass Installer Helper: [id number] Modifier: [id number] <+> 1 Stop [facility] IntraOP Time Out Entry 1 Procedure [...] WATRISADR Correct Billing Electronically signed by Brooklyn [facility] Conversion Health Companion Cerner at 08/23/2022 11:10 AM CDT documented in this encounter Plan of Treatment Not on file documented as of this encounter Visit Diagnoses Not on filedocumented in this encounter Care Teams Senior Estimator Relationship Specialty Start Date End Date Salima Gonzáles, 8 [facility] [address] [place] [address] PCP - General Family Medicine 02/09/23 documented as of this encounter
--- OUTSIDE RECORDS SUMMARY | 2024-04-10 14:14 | XMS_ITS | Encounter Summary ---
Author Organization [employer] Address [address] [place] [address] Care Team Providers Care Him Specialist Name Role Phone Salima Gonzáles Primary Care Provider [phone] Encounter Details Date Type Department Care Team (Late st Contact Info) Description 10/03/2020 Transcribed Document [facility] [place] [address] [place] [address] ProviderQuincy MD [address] [place] [address] [id number] Social History Tobacco Use Types Packs/Day Years [...] Pain Scale Intensity : 3 Janae Avery, DINNER COOK - 10/05/2020 3:28 EDT Image 4 - Images currently included in the form version of this document have not been included in the text rendition version of the form. documented in this encounter Plan of Treatment Not on file documented as of this encounter Visit Diagnoses Not on filedocumented in this encounter Care Teams Him Specialist Relationship Specialty Start Date End Date Salima Gonzáles, 8 [facility] [address] [place] [address] PCP - General Family Medicine 02/09/23 documented as of this encounter
--- OUTSIDE RECORDS SUMMARY | 2024-04-10 14:14 | XMS_ITS | Encounter Summary ---
Author Organization [employer] Address [address] [place] [address] Care Team Providers Care Bail Bonding Agent Name Role Phone Salima Gonzáles Primary Care Provider [phone] Encounter Details Date Type Department Care Team (Late st Contact Info) Description 10/03/2020 Transcribed Document [facility] [place] [address] [place] [address] ProviderQuincy MD [address] [place] [address] Social History Tobacco Use Types Packs/Day [...] 10/04/2020 13:56 EDT Electronically signed by Brooklyn [facility] Conversion Health And Wellness Sales Consultant Cerner at 08/23/2022 11:01 AM CDT documented in this encounter Plan of Treatment Not on file documented as of this encounter Visit Diagnoses Not on filedocumented in this encounter Care Teams Bail Bonding Agent Relationship Specialty Start Date End Date Salima Gonzáles, DO [address] [address] PCP - General Family Medicine 02/09/23 documented as of this encounter
--- OUTSIDE RECORDS SUMMARY | 2024-04-10 14:14 | XMS_ITS | Encounter Summary ---
Author Organization [employer] Address [address] [place] [address] Care Team Providers Care Grade Checker Name Role Phone Salima Gonzáles Primary Care Provider [phone] Encounter Details Date Type Department Care Team (Late st Contact Info) Description 10/04/2020 Transcribed Document [facility] [address] [place] [address] ProviderQuincy MD [address] [place] [address] Social History Tobacco Use Types Packs/Day [...] left the operating room in satisfactory condition. /[id number] Gatito Menendez MD [facility]/AQ / [facility] / MODL /[id number] Electronically signed by Brooklyn, [facility] Conversion Primary Grade Teacher Cerner at 08/23/2022 10:57 AM CDT documented in this encounter Plan of Treatment Not on file documented as of this encounter Visit Diagnoses Not on filedocumented in this encounter Care Teams Grade Checker Relationship Specialty Start Date End Date Salima Gonzáles, DO 8 [facility] [address] [place] [address] PCP - General Family Medicine 02/09/23 documented as of this encounter
--- OUTSIDE RECORDS SUMMARY | 2024-04-10 14:14 | XMS_ITS | Encounter Summary ---
Author Organization [employer] Address [address] [place] [address] Care Team Providers Care Manager Environmental Affairs Name Role Phone Salima Gonzáles Primary Care Provider [phone] Encounter Details Date Type Department Care Team (Late st Contact Info) Description 10/03/2020 Transcribed Document [facility] [place] [facility] [place] [address] ProviderQuincy MD [address] [place] [address] Social History Tobacco Use Types Packs/Day [...] filedocumented in this encounter Care Teams Manager Environmental Affairs Relationship Specialty Start Date End Date Salima Gonzáles, DO [address] [address] PCP - General Family Medicine 02/09/23 documented as of this encounter
--- OUTSIDE RECORDS SUMMARY | 2024-04-10 14:14 | XMS_ITS | Encounter Summary ---
Author Organization [employer] Address [address] [place] [address] Care Team Providers Care Uniform Cap Operator Name Role Phone Eliecer Salima Tate SWANN Primary Care Provider [phone] Encounter Details Date Type Department Care Team (Late st Contact Info) Description 10/08/2019 Transcribed Document [facility] [place] [address] [place] [address] ProviderQuincy MD [address] [place] [address] Social History Tobacco Use Types Packs/Day [...] serving. ??? Talk with a diet and community nutrition educator (dietitian) if you have questions [...] Bulgur wheat. Millet. Quinoa. Bran muffins. Popcorn. [place] wafer crackers. Meats and other proteins Gays, kidney, and cox beans. Soybeans. Split peas. [...] Cream cheese. Sour cream. Fats and oils [place]. Beverages Soft drinks. Other foods Cakes and [...] 04/23/2006 Document Revised: 02/25/2018 Document Reviewed: 02/25/2018 [employer] Interactive Patient Education ? 2019 [employer]. Gastritis, Adult Gastritis is swelling (inflammation) of [...] these instructions at home: Medicines ??? Take xdfx-vot-rmliily and prescription medicines only as told by [...] 10/09/2008 Document Revised: 09/10/2018 Document Reviewed: 09/10/2018 [employer] Interactive Patient Education ? 2019 [employer]. Colitis Colitis is inflammation of the colon. [...] you start to feel better. ??? Take oxcu-vof-isarbel and prescription medicines only as told by [...] 05/31/2005 Document Revised: 10/24/2018 Document Reviewed: 10/24/2018 [employer] Interactive Patient Education ? 2019 [employer]. Hemorrhoids Hemorrhoids are swollen veins that may [...] times a day. General instructions ??? Take ofsk-lul-jinwjhg and prescription medicines only as told by [...] 01/30/2009 Document Revised: 09/12/2018 Document Reviewed: 09/12/2018 [employer] Interactive Patient Education ? 2019 [employer] Colonoscopy, Adult, Care After This sheet [...] soft and easy to digest. ??? Take hgkj-mqk-gqjwylt or prescription medicines only as told by [...] 05/26/2011 Document Revised: 02/21/2018 Document Reviewed: 01/15/2017 [employer] Interactive Patient Education ? 2019 [employer] Esophagogastroduodenoscopy, Care After Refer to this [...] 04/09/2013 Document Revised: 09/28/2016 Document Reviewed: 03/16/2016 [employer] Interactive Patient Education ? 2019 [employer]. documented in this encounter Plan of Treatment Not on file documented as of this encounter Visit Diagnoses Not on filedocumented in this encounter Care Teams Uniform Cap Operator Relationship Specialty Start Date End Date Salima Gonzáles, 8 [facility] [address] [place] [address] PCP - General Family Medicine 02/09/23 documented as of this encounter
--- OUTSIDE RECORDS SUMMARY | 2024-04-10 14:14 | XMS_ITS | Encounter Summary ---
Author Organization [employer] Address [address] [place] [address] Care Team Providers Care Termite Control Technician Name Role Phone Unavailable Primary Care Provider Unavailabl e Encounter Details Date Type Department Care Team (Late st Contact Info) Description 10/03/2020 Historic Encounter [address] [address] Provider, [facility] Historical Social [...] - 110 mg/dL 10/04/2020 2:41 AM EDT [facility] Log Carrier Operator [id number] 10/04/2020 2:41 AM EDT [facility] Device SN [id number] 10/04/2020 2:41 AM EDT [facility] Blood 10/03/2020 10:4 1 PM EDT 10/04/2020 3:02 AM EDT [facility] Historical Provider POINT OF CARE TEST ORDE RABLES Final Result [facility] [address] [phone] documented in this encounter Visit Diagnoses Not on filedocumented in this encounter
--- OUTSIDE RECORDS SUMMARY | 2024-04-10 14:14 | XMS_ITS | Encounter Summary ---
Author Organization [employer] Address [address] [place] [address] Care Team Providers Care Crm Manager Name Role Phone Salima Gonzáles Primary Care Provider [phone] Encounter Details Date Type Department Care Team (Late st Contact Info) Description 10/03/2020 Transcribed Document [facility] [place] Family Medicine [address] [place] [address] ProviderQuincy MD [address] [place] [address] Social History Tobacco Use Types Packs/Day [...] 10/03/2020 19:18 EDT by Tereza Carrera Patient Rollout Manager Shira Phone Call for Consults Consult Phone Call/Page Attempt : First call Consult Reason : obstructing stone Physician Requesting Consult : TIM MCCORMICK, DO-INT Physician Requested for Consult : DILLON HOFFMANN MD Provider Team Notified Name : Urology Physician Covering for Consult : ANNABEL ZAMBRANO MD-URO Date and Time Call Returned : 10/04/2020 9:51 EDT Tereza Carrera Patient Rollout Manager Shira - 10/04/2020 9:48 EDT documented in this encounter Plan of Treatment Not on file documented as of this encounter Visit Diagnoses Not on filedocumented in this encounter Care Teams Crm Manager Relationship Specialty Start Date End Date Salima Gonzáles DO [address] [facility] [address] [place] [address] PCP - General Family Medicine 02/09/23 documented as of this encounter
--- OUTSIDE RECORDS SUMMARY | 2024-04-10 14:14 | XMS_ITS | Encounter Summary ---
Author Organization [employer] Address [address] [place] [address] Care Team Providers Care Vice President Payment Name Role Phone Salima Gonzáles DO Primary Care Provider [phone] Encounter Details Date Type Department Care Team (Late st Contact Info) Description 10/04/2020 Transcribed Document [facility] [place] [address] [place] [address] ProviderQuincy MD [address] [place] [address] Social History Tobacco Use Types Packs/Day [...] on filedocumented in this encounter Care Teams Vice President Payment Relationship Specialty Start Date End Date Salima Gonzáles DO [address] [phone] PCP - General Family Medicine 02/09/23 documented as of this encounter
--- OUTSIDE RECORDS SUMMARY | 2024-04-10 14:14 | XMS_ITS | Encounter Summary ---
Author Organization [employer] Address [address] [place] [address] Care Team Providers Care Manufacturing Technology Professor Name Role Phone Salima Gonzáles Primary Care Provider [phone] Encounter Details Date Type Department Care Team (Late st Contact Info) Description 10/08/2019 Transcribed Document [facility] [place] [address] [place] [address] ProviderQuincy MD [address] [place] [address] Social History Tobacco Use Types Packs/Day [...] Source : Stated Height Entry Format : [place] Height, Feet : 5 ft(Converted to: 152 cm, 60 Inch) Height, Inches : 1 Inch(Converted to: 0 ft 1 Inch, 2.54 cm) Clinical Height : 154.94 cm Weight Source : Standing scale Weight Entry Format : [place] Clinical Dosing Weight : 118.55 kg Weight, Pounds : 260.8 lb Body Surface Area (BSA) : 2.12 m2 Body Mass Index : 49.4 kg/m2 (>HHI) [place] Body Weight : 47 kg Whitney Huynh [...] Whitney Huynh Rn - 10/08/2019 9:18 EDT [place] Suicide Severity Rating Scale (C-SSRS) CSSRS Past [...] #2 Relationship : na Primary Language : Angolan Communication Barrier : None Whitney Huynh Rn [...] Scale Risk Level : 0-24 Low Risk [place] Fall Interventions : Adequate lighting, Call device [...] on filedocumented in this encounter Care Teams Manufacturing Technology Professor Relationship Specialty Start Date End Date Salima Gonzáles, 8 [facility] [address] [place] [address] PCP - General Family Medicine 02/09/23 documented as of this encounter
--- OUTSIDE RECORDS SUMMARY | 2024-04-10 14:14 | XMS_ITS | Encounter Summary ---
Author Organization [employer] Address [address] [place] [address] Care Team Providers Care Pipe And Boiler Covers Supervisor Name Role Phone Unavailable Primary Care Provider Unavailabl e Encounter Details Date Type Department Care Team (Late st Contact Info) Description 10/03/2020 Historic Encounter [facility] [address] [place] [address] Provider, [facility] Historical Social History Tobacco Use Types [...] Priority Date/Time Associated Diagnosis Comments MAGNESIUM LEVEL ([facility] DATA CONV) Routine 10/03/2020 7:07 PM EDT documented in this encounter Results * MAGNESIUM LEVEL ([facility] BK DATA CONV) (10/03/2020 7:07 PM EDT) Magnesium Level 1.8 1.5 - 2.4 mg/dL 10/03/2020 11:32 PM EDT Blood 10/03/2020 7:07 PM EDT 10/03/2020 11:12 PM EDT [facility] Historical Provider LAB BLOOD ORDERABLES Fi nal Result [facility] 1 [place], [place] [address] [phone] documented in this encounter Visit Diagnoses Not on filedocumented in this encounter
--- OUTSIDE RECORDS SUMMARY | 2024-04-10 14:14 | XMS_ITS | Encounter Summary ---
Author Organization [facility] Address [address] [place] [address] Care Team Providers Care Comb Tender Name Role Phone Salima Gonzáles DO Primary Care Provider [phone] Encounter Details Date Type Department Care Team [...] documented as of this encounter Care Teams Comb Tender Relationship Specialty Start Date End Date Salima Gonzáles DO [address] [place], [place] [address] [address] PCP - General 09/17/20 documented as of this encounter
--- OUTSIDE RECORDS SUMMARY | 2024-04-10 14:14 | XMS_ITS | Encounter Summary ---
Author Organization [employer] Address [address] [place] [address] Care Team Providers Care Director Game Name Role Phone Salima Gonzáles Primary Care Provider [phone] Encounter Details Date Type Department Care Team (Late st Contact Info) Description 10/03/2020 Transcribed Document [facility] [place] [facility] [place] [address] ProviderQuincy MD [address] [place] [address] Social History Tobacco Use Types Packs/Day [...] #2 Relationship : father Primary Language : Libyan Communication Barrier : None Pet Care Assistant Needed : No Hoa Coleman RN - [...] Level : 46 or > High Risk [place] Fall Interventions : Adequate lighting, Assistive devices [...] Source : Stated Height Entry Format : [place] Height, Feet : 5 ft(Converted to: 152 cm, 60 Inch) Height, Inches : 1 Inch(Converted to: 0 ft 1 Inch, 2.54 cm) Clinical Height : 154.94 cm Weight Source : Bed scale Weight Entry Format : [place] Clinical Dosing Weight : 118.18 kg Weight, Pounds : 260 lb Body Surface Area (BSA) : 2.11 m2 Body Mass Index : 49.2 kg/m2 (>HHI) [place] Body Weight : 47 kg Hoa Coleman [...] Hoa Coleman RN - 10/04/2020 13:17 EDT [place] Suicide Severity Rating Scale (C-SSRS) CSSRS Past [...] filedocumented in this encounter Care Teams Director Game Relationship Specialty Start Date End Date Salima Gonzáles, DO 8 [facility] [address] [place] [address] PCP - General Family Medicine 02/09/23 documented as of this encounter
--- OUTSIDE RECORDS SUMMARY | 2024-04-10 14:14 | XMS_ITS | Encounter Summary ---
Author Organization [facility] Address [address] [place] [address] Care Team Providers Care Advertisement Compositor Name Role Phone Salima Gonzáles DO Primary Care Provider [phone] Encounter Details Date Type Department Care Team [...] documented as of this encounter Care Teams Advertisement Compositor Relationship Specialty Start Date End Date Salima Gonzáles DO [address] [place], [place] [address] [address] PCP - General 09/17/20 documented as of this encounter
--- OUTSIDE RECORDS SUMMARY | 2024-04-10 14:14 | XMS_ITS | Encounter Summary ---
Author Organization [facility] Address [address] [id number] Care Team Providers Care Datapower Consultant Name Role Phone Salima Gonzáles DO Primary Care Provider [phone] Reason for Referral * Imaging (Routine) - Closed Specialty Diagnoses / Procedures Referred By Contac t Referred To Contact Radiology Diagnoses Abnormal findings on diagnostic imaging of heart and coronary circulation Chest pain, unspecified Precordial chest pain Procedures CT Angio Cardiac Coronary Arteries Radiology Virtual Dept. [address] [place] [phone] Phone: tel: Referral ID Status Reason Start Date Expiration Date Visits Re quested Visits Authorized [id number] Closed 02/13/2023 08/14/2024 1 1 Reason for Visit * Imaging (Routine) - Closed Specialty Diagnoses / Procedures Referred By Contac t Referred To Contact Radiology Diagnoses Abnormal findings on diagnostic imaging of heart and coronary circulation Chest pain, unspecified Precordial chest pain Procedures CT Angio Cardiac Coronary Arteries Radiology Virtual Dept. [address] [place] [address] Phone: tel: Referral ID Status Reason Start Date Expiration Date Visits Re quested Visits Authorized [id number] Closed 02/13/2023 08/14/2024 1 1 Encounter Details Date Type Department Care Team (Latest Contact Info) Description 03/27/2023 11:30 AM EST - 03/27/2023 11:59 PM EST Hospital Encounter [facility] Radiology [address] [place] [address] Abnormal findings on diagnostic imaging [...] 03/27/2023 1:53 PM Final report signed by Mhoit Azevedo MD on 03/27/2023 8:49 PM Narrative [...] source 192 MDCT scanner ([employer]om[employer], [employer]) was used for data acquisition. A [...] was reviewed interactively on an advanced workstation ([employer]) capable of 2 and 3 dimensional displays [...] Data wasreviewed interactively on an advanced workstation ([employer]) capable of 2and 3 dimensional displays in [...] * POCT creatinine (03/27/2023 11:52 AM EST) [facility] Creatinine, Point of Care 1.0 0.6 - 1.1 mg/dL 03/27/2023 11:57 AM EST [place] [facility] POCT eGFR 65 mL/min/1. 73m*2 03/27/2023 11:57 AM EST [facility] Elevator Operator Service ID Gary Pratt 03/27/2023 11:57 AM EST [facility] Device ID [id number] 03/27/2023 11:57 AM EST [facility] Comment 03/27/2023 11:57 AM EST [facility] Comment:Testing performed on i-STAT at the point of care. Reported eGFRcr in mL/min/1.73m2 is based the CKD-EPI 2020 equation that does not use a race coefficient. Blood Venous blood specimen / Unknown 03/27/2023 11:52 AM EST 03/27/2023 11:57 AM EST us Generic Provider Poct LAB POINT OF CARE TEST DOCKED DEVICE UNSOLICITED RESULTS Final Result [facility] [address] [place] [address] documented in this encounter Visit Diagnoses Diagnosis [...] documented as of this encounter Care Teams Datapower Consultant Relationship Specialty Start Date End Date Salima Gonzáles DO [facility] [place] [address] PCP - General 09/17/20 documented as of this encounter
--- OUTSIDE RECORDS SUMMARY | 2024-04-10 14:14 | XMS_ITS | Encounter Summary ---
Author Organization [facility] Address [address] [place] [address] Care Team Providers Care Mophead Trimmer And Wrapper Name Role Phone Salima Gonzáles Primary Care Provider [phone] Encounter Details Date Type Department Care Team (Late st Contact Info) Description 10/08/2019 Transcribed Document [facility] [place] [facility] [address] ProviderQuincy MD [address] [place] [id number] Social History Tobacco Use Types Packs/Day Years [...] 10/08/19 09:53:00 (10/08/19 10:02:18) Electronically signed by [facility] Conversion Activity Aide Cerner at 08/23/2022 11:05 AM CDT documented in this encounter Plan of Treatment Not on file documented as of this encounter Visit Diagnoses Not on filedocumented in this encounter Care Teams Mophead Trimmer And Wrapper Relationship Specialty Start Date End Date Salima Gonzáles, [address] [address] PCP - General Family Medicine 02/09/23 documented as of this encounter
--- OUTSIDE RECORDS SUMMARY | 2024-04-10 14:14 | XMS_ITS | Encounter Summary ---
Author Organization [facility] Address [address] [place] [address] Care Team Providers Care Oracle Software Engineer Name Role Phone Unavailable Primary Care Provider Unavailabl e Encounter Details Date Type Department Care Team (Late st Contact Info) Description 10/03/2020 Historic Encounter [address] [address] Provider [facility] Historical Social History Tobacco Use Types [...] Associated Diagnosis Comments CBC W/ AUTO DIFF ([facility] DATA CONV) Routine 10/03/2020 7:07 PM EDT documented in this encounter Results * CBC W/ AUTO DIFF ([facility] DATA CONV) (10/03/2020 7:07 PM EDT) [...] 7:07 PM EDT 10/03/2020 11:12 PM EDT [facility] Historical Provider LAB BLOOD ORDERABLES Fi nal Result [facility] [address] [phone] documented in this encounter Visit Diagnoses Not on filedocumented in this encounter
--- OUTSIDE RECORDS SUMMARY | 2024-04-10 14:14 | XMS_ITS | Encounter Summary ---
Author Organization [facility] Address [address] [place] [address] Care Team Providers Care Communications Project Lead Name Role Phone Salima Gonzáles DO Primary Care Provider [phone] Encounter Details Date Type Department Care Team (Late st Contact Info) Description 10/04/2020 Transcribed Document [facility] [place] Family Medicine [address] [place] [address] ProviderQuincy MD [address] [place] [address] Social History Tobacco Use Types Packs/Day [...] on filedocumented in this encounter Care Teams Communications Project Lead Relationship Specialty Start Date End Date Salima Gonzáles DO [facility] [address] [place] [address] PCP - General Family Medicine 02/09/23 documented as of this encounter
--- OUTSIDE RECORDS SUMMARY | 2024-04-10 14:14 | XMS_ITS | Clinical Summary ---
Author Organization [facility] Address [address] [place] [address] Care Team Providers Care Diamond Cutter Name Role Phone Eliecer Salimajovanni Ybarra DO Primary Care Provider [phone] Allergies Active Allergy Reactions Criticality Noted Date [...] Screening 2014 UKY-Diabetes: Hemoglobin A1C 10/29/2021 05/01/2021 [id number] Vaccine (2023- season) 2024 02/23/2022, 01/26/2021, 06/09/2020, [...] this topic Medical Devices Implanted Type Area Advertising Operations Manager Device Identifier Shelf Expiration Date Model / Serial / Lot Nail Femoral Retro T2 Alpha 11mm X 340mm - [id number] Implanted:Qty: 1 on 05/01/2021 by Crow Lockwood MD at [facility] Nail Left: Femur [employer] ([facility][id number] 10/04/2030 [id number] / / [id number] Screw Locking T2 D5xl80 - [id number] Implanted:Qty: 1 on 05/01/2021 by Bebeto Flynn MD at [facility] Screw Left: Femur [place] [employer] ([facility][id number] 09/03/2030 [id number] / / [id number] Screw Locking T2 D5xl60 - [id number] Implanted:Qty: 1 on 05/01/2021 by Bebeto Flynn MD at [facility] Screw Left: Femur [employer] ([facility])-[id number] 02/03/2031 2360-5060S / / [id number] Screw Locking T2 D5xl50 - [id number] Implanted:Qty: 1 on 05/01/2021 by Bebeto Flynn MD at [facility] Screw Left: Femur [employer] ([facility])-[id number] 8 02/03/2031 2360-5050S / / [id number] Screw Locking T2 D5xl75 - [id number] Implanted:Qty: 1 on 05/01/2021 by Bebeto Flynn MD at [facility] Screw Left: Femur [place] [employer] ([facility])-[id number] 8 01/04/2031 2360-5075S / / [id number] Screw Locking T2 D5xl55 - [id number] Implanted:Qty: 1 on 05/01/2021 by Bebeto Flynn MD at [facility] Screw Left: Femur [place] [employer] ([facility])-[id number] 8 12/04/2030 2360-5055S / / [id number] Screw Locking T2 D5x32.5 - [id number] Implanted:Qty: 1 on 05/01/2021 by Bebeto Flynn MD at [facility] Screw Left: Femur [employer] ([facility])-[id number] 8 01/04/2031 2360-5032S / / [id number] Screw Locking T2 D5x37.5 - [id number] Implanted:Qty: 1 on 05/01/2021 by Bebeto Flynn MD at [facility] Screw Left: Femur [place] [employer] ([facility])-[id number] 8 01/04/2031 2360-5037S / / [id number] Procedures Procedure Name Priority Date/Time Associated Diagnosis [...] Adults <6.0% Children and Adolescents <7.5% Source: ??[place] [employer]. Standards of medical care in diabetes,2017. Diabetes Care.2017:40 (suppl 1):S1-S135. HbA1c assay performed by an ion-exchange chromatography method that is certified traceable to the DCCT. us Drew Matos MD LAB BLOOD ORDERABLES Final Re sult [facility] [address] [place] [phone] from Last 3 Months or Most Recently Relevant to Health Maintenance Insurance [employer] MEDICARE Advance Directives * Full Code (Latest Code Status on File) Date Activated Date Inactivated Comments 04/30/2021 4:10 PM 05/07/2021 11:19 AM Question Answer Comments Patient has decision-making capacity? Yes Care Teams Diamond Cutter Relationship Specialty Start Date End Date Salima Gonzáles DO [address] [place] [address] PCP - General 09/17/20
--- OUTSIDE RECORDS SUMMARY | 2024-04-10 14:14 | XMS_ITS | Encounter Summary ---
Author Organization [facility] Address [address] [place] [address] Care Team Providers Care Sports Commentator Name Role Phone Salima Gonzáles Primary Care Provider [phone] Encounter Details Date Type Department Care Team (Late st Contact Info) Description 10/04/2020 Transcribed Document [facility] [place] [address] [place] [address] ProviderQuincy MD [address] [place] [address] Social History Tobacco Use Types Packs/Day [...] Quincy ProviderMD - 10/04/2020 2:00 AM CDT Scientific Process Operator Details Entered On: 10/04/2020 4:12 EDT Performed [...] Lj Villarreal RN - 10/04/2020 4:11 EDT Electronically signed by Nuzhat Barahona Conversion Quality Assurance Monitor Final Cerner at 08/23/2022 11:04 AM CDT documented in this encounter Plan of Treatment Not on file documented as of this encounter Visit Diagnoses Not on filedocumented in this encounter Care Teams Sports Commentator Relationship Specialty Start Date End Date Salima Gonzáles DO [address] [address] PCP - General Family Medicine 02/09/23 documented as of this encounter
--- OUTSIDE RECORDS SUMMARY | 2024-04-10 14:14 | XMS_ITS | Encounter Summary ---
Author Organization [facility] Address [address] [place] [address] Care Team Providers Care Program Lead Name Role Phone Salima Gonzáles DO Primary Care Provider [phone] Encounter Details Date Type Department Care Team (Late st Contact Info) Description 10/08/2019 Transcribed Document [facility] Family Medicine Replaced by [facility] [place] [address] ProviderQuincy MD [address] [place] [address] Social History Tobacco Use Types Packs/Day Years Used Date Smoking Tobacco: Never Assessed Comments Unknown Sex and Gender Information Value Date Recorded Sex Assigned at Not on file Legal Sex Female 2:54 PM CDT Gender Identity Not on file Sexual Orientation Not on file documented as of this encounter Miscellaneous Notes * Cerner Conversion Note - Qiuncy Kate MD - 10/08/2019 9:47 AM CDT [facility] IntraOp Summary Primary Physician: WARREN MANRIQUE MD Finalized Date/Time: 10/08/19 10:06:04 Pt. Name: JACOB CHRISTINA AMBIKAMONICA Granados/Sex: 1965 Female Med Rec #: [id number] Physician: WARREN MANRIQUE MD Financial #: [id number] Pt. Type: O Room/Bed: / Admit/Disch: 10/08/19 08:47:00 - Institution: [facility] Endo - Case Attendance Entry 1 Entry 2 Entry 3 Case Attendee WARREN MANRIQUE MD DUNHAM, JEANNIE Thayer, Dena, RN Role Performed Surgeon/Proceduralist, Scrub, Ball Point Splitter, First First Time In 10/08/19 09:38:00 10/08/19 [...] Entry 6 Case Attendee CASSI MARISCAL Hattie, DAKOAT Amaya MD-ANS Role Performed Scrub, First SHIPPING RECEIVING MANAGER/Nurse Automobile Brake Bonder Anesthesiologist of Record Time In 10/08/19 09:38:00 10/08/19 09:38:00 10/08/19 09:38:00 Time Out 10/08/19 10:06:00 10/08/19 10:06:00 10/08/19 10:06:00 Procedure Gastric Biopsy, Colon Gastric Biopsy, Colon Gastric Biopsy, Colon Biopsy Biopsy Biopsy Other Attendee Superficial Wound Closed By: Last Modified By: Elizabeth Anaya RN Thayer, Dena, RN Thayer, Dena, RN 10/08/19 10:03:23 10/08/19 10:03:23 10/08/19 10:03:23 [facility] - Case Attendance Audit 10/08/19 10:03:23 Landscape Architecture Teacher: [id number] Modifier: [id number] <+> Time Out 1 <*> Procedure [...] Procedure Gastric Biopsy, Colon Biopsy 10/08/19 10:02:21 Landscape Architecture Teacher: [id number] Modifier: [id number] 1 <*> Procedure Esophagogastroduodenoscopy, Colonoscopy, Gastric Biopsy 2 <*> Procedure Gastric Biopsy 3 <*> Procedure Gastric Biopsy 4 <*> Procedure Gastric Biopsy 5 <*> Procedure Gastric Biopsy 6 <*> Procedure Gastric Biopsy 10/08/19 09:50:05 Landscape Architecture Teacher: [id number] Modifier: [id number] 1 <*> Procedure Esophagogastroduodenoscopy, Colonoscopy <+> 2 Procedure <+> 3 Procedure <+> 4 Procedure <+> 5 Procedure <+> 6 Procedure 10/08/19 09:39:56 Landscape Architecture Teacher: [id number] Modifier: [id number] 1 <+> Time In 1 <*> Procedure Esophagogastroduodenoscopy, Colonoscopy <+> 2 Time In <+> 3 Time In <+> 4 Time In <+> 5 Time In <+> 6 Time In 10/08/19 09:31:42 Landscape Architecture Teacher: [id number] Modifier: [id number] <+> 2 Case Attendee <+> 2 Role Performed <+> 3 Case Attendee <+> 3 Role Performed <+> 4 Case Attendee <+> 4 Role Performed <+> 5 Case Attendee <+> 5 Role Performed <+> 6 Case Attendee <+> 6 Role Performed [facility] - Case times Entry 1 Patient In Room Time 10/08/19 09:38:00 Out Room Time 10/08/19 10:06:00 Anesthesia Start Time 10/08/19 09:38:00 Stop Time 10/08/19 10:06:00 Surgery / Procedure Times Start Time 10/08/19 09:47:00 Stop Time 10/08/19 10:03:00 Last Modified By: Elizabeth Anaya, RN 10/08/19 10:03:21 [facility] - Case times Audit 10/08/19 10:03:21 Landscape Architecture Teacher: [id number] Modifier: [id number] <+> 1 Out Room Time <+> 1 Stop Time <+> 1 Stop Time 10/08/19 09:47:20 Landscape Architecture Teacher: [id number] Modifier: [id number] <+> 1 Start Time [facility] - Cultures and Spec Summary Entry 1 Cultrures and Specimens Specimen Ordered: Yes Test(s) Routine/Path-Lab Requested/Final Disposition Last Modified By: Elizabeth Anaya RN 10/08/19 09:50:17 [facility] - Delays Entry 1 Delay Reason No Delay Duration 0 Minute(s) Last Modified By: Elizabeth Anaya RN 10/08/19 09:32:22 [facility] - Departure from OR Entry 1 Integumentary Assessment Integumentary WDL Assessment WDL Transfer/Handoff Transfer to PACU Phase I Handoff Method Bedside/Face to face Post-op Transport Stretcher/Gurney Via Patient Transport Claudia Dupree Crna Accompanied by Last Modified By: Elizabeth Anaya RN 10/08/19 09:32:45 [facility] - Endoscopy Details Entry 1 Abdomen Procedure Soft, Non-Tender Assessment Procedure Abdomen 10/08/19 09:32:00 Assessment D/T Radio Frequency Ablation Abdominal Pressure Last Modified By: Elizabeth Anaya RN 10/08/19 09:32:34 [facility] - Fire Risk Assessment Entry 1 [...] By: Elizabeth Anaya RN 10/08/19 09:33:30 [facility] - Fire Risk Assessment Audit 10/08/19 09:33:30 Landscape Architecture Teacher: [id number] Modifier: [id number] <+> 1 Fire Risk Assessment Complete [facility] - General Case Avionics System Engineer 1 Case Information OR Endo 03 [facility] Case Level 1 Room Verified Yes Wound Class III - Contaminated Specialty SN Gastroenterology Anesthesia Type General ASA Class 4 Diagnosis Preop Diagnosis dyspepsia, change in bowel habits Postop Same As Preop No Postop Diagnosis Chronic gastritis, history gastric bypass Last Modified By: Elizabeth Anaya RN 10/08/19 09:52:07 [facility] - General Case Data Audit 10/08/19 09:52:07 Landscape Architecture Teacher: [id number] Modifier: [id number] 1 <*> Postop Same As Preop Yes 1 <*> Postop Diagnosis dyspepsia, change in bowel habits 10/08/19 09:43:44 Landscape Architecture Teacher: [id number] Modifier: [id number] 1 <*> Preop Diagnosis R19.7 R10.9 1 <*> Postop Diagnosis R19.7 R10.9 [facility] - Intraoperative Assessment Entry 1 Valid History / Yes Physical in Chart Preoperative Yes Checklist Reviewed/Evaluated Patient is Latex No Sensitive Level of WDL Consciousness (WDL = Alert, Oriented to Person, Place, and Time) Last Modified By: Elizabeth Anaya RN 10/08/19 09:33:43 [facility] - Intraoperative Equipment Entry 1 Equipment Intraop Monitoring Electrocardiogram Three lead placement (ECG) Electrode Placement Blood Pressure Arm, left upper Location Pulse Oximeter Hand, right Probe Site Antiembolic Devices Scopes Flexible Endoscopes Gastroscope Used Scope Serial E O Number/Identificatio n Number Photo/Video Documentation Photo Yes Video No Last Modified By: Elizabeth Anaya RN 10/08/19 09:43:26 [facility] - Patient Positioning Entry 1 Procedure [...] By: Elizabeth Anaya RN 10/08/19 10:02:22 [facility] - Patient Positioning Audit 10/08/19 10:02:22 Landscape Architecture Teacher: [id number] Modifier: [id number] 1 <*> Procedure Esophagogastroduodenoscopy, Gastric Biopsy 10/08/19 09:50:05 Landscape Architecture Teacher: [id number] Modifier: [id number] 1 <*> Procedure Esophagogastroduodenoscopy [facility] - Sign In Entry 1 Patient, Site, Yes Procedure Identified Surgical Consent Yes Confirmed Surgical Site N/A Marked by person performing procedure Airway Hypothermia Risk No Warming Measures No Taken Last Modified By: Elizabeth Anaya RN 10/08/19 09:34:14 [facility] - Sign Out Entry 1 RN [...] By: Elizabeth Anaya RN 10/08/19 10:04:03 [facility] - Surgical Procedures Entry 1 Entry [...] Procedure Description Primary Procedure No Primary Surgeon AWRREN MANRIQUE MD Start 10/08/19 09:53:00 Stop 10/08/19 10:03:00 Physician States 10/08/19 09:55:00 Cecum Reached Anesthesia Type MAC Specialty SN Gastroenterology Wound Class III - Contaminated Last Modified By: Elizabeth Anaya RN 10/08/19 10:03:34 [facility] - Surgical Procedures Audit 10/08/19 10:03:34 Landscape Architecture Teacher: [id number] Modifier: [id number] <*> Procedure Colonoscopy 2 <+> Stop <+> 4 Stop 10/08/19 10:02:18 Landscape Architecture Teacher: [id number] Modifier: [id number] 2 <*> Procedure Colonoscopy 2 <*> Start 10/08/19 09:47:00 2 <+> Physician States Cecum Reached <+> 4 Procedure <+> 4 Primary Procedure <+> 4 Primary Surgeon <+> 4 Specialty <+> 4 Start <+> 4 Wound Class <+> 4 Anesthesia Type <+> 4 Additional Procedure Description <+> 4 Physician States Cecum Reached 10/08/19 09:51:41 Landscape Architecture Teacher: [id number] Modifier: [id number] <*> Procedure Gastric Biopsy 3 <+> Stop 10/08/19 09:50:35 Landscape Architecture Teacher: [id number] Modifier: [id number] 1 <*> Procedure Esophagogastroduodenoscopy 1 <+> Stop 10/08/19 09:50:01 Landscape Architecture Teacher: [id number] Modifier: [id number] 1 <*> Procedure Esophagogastroduodenoscopy 1 <+> Start 1 <+> Additional Procedure Description <+> 2 Start <+> 3 Procedure <+> 3 Primary Procedure <+> 3 Primary Surgeon <+> 3 Specialty <+> 3 Start <+> 3 Wound Class <+> 3 Anesthesia Type <+> 3 Additional Procedure Description [facility] - Time Out Entry 1 Procedure [...] By: Elizabeth Anaya RN 10/08/19 10:02:22 [facility] - Time Out Audit 10/08/19 10:02:22 Landscape Architecture Teacher: [id number] Modifier: [id number] 1 <*> Procedure to be Performed Esophagogastroduodenoscopy, Colonoscopy, Gastric Biopsy 10/08/19 09:50:06 Landscape Architecture Teacher: [id number] Modifier: [id number] 1 <*> Procedure to be Performed Esophagogastroduodenoscopy, Colonoscopy Case Comments <None> Finalized By: Elizabeth Anaya, RN Document Signatures Signed By: Elizabeth Anaya RN 10/08/19 10:06 Electronically signed by [facility] Conversion Industrial Hire Sales Assistant Cerner at 08/23/2022 10:56 AM CDT documented in this encounter Plan of Treatment Not on file documented as of this encounter Visit Diagnoses Not on filedocumented in this encounter Care Teams Program Lead Relationship Specialty Start Date End Date Salima Gonzáles, 8 [facility] [address] [place] [address] PCP - General Family Medicine 02/09/23 documented as of this encounter
--- OUTSIDE RECORDS SUMMARY | 2024-04-10 14:14 | XMS_ITS | Encounter Summary ---
Author Organization [employer] Address [address] [place] [address] Care Team Providers Care Grinder Set Up Operator Internal Name Role Phone Salima Gonzáles DO Primary Care Provider [phone] Encounter Details Date Type Department Care Team (Late st Contact Info) Description 10/08/2019 Transcribed Document [facility] [place] [facility] [place] [address] ProviderQuincy MD [address] [place] [address] Social History Tobacco Use Types Packs/Day [...] Kate MD - 10/08/2019 9:30 AM CDT [facility] PreOp Summary Primary Physician: WARREN MANRIQUE MD Finalized Date/Time: 10/08/19 09:35:21 Pt. Name: AMBIKA PIERRE/Sex: 1965 Female Med Rec #: [id number] Physician: WARREN MANRIQUE MD Financial #: [id number] Pt. Type: O Room/Bed: / Admit/Disch: 10/08/19 08:47:00 - Institution: [facility] PreOp Case Times Entry 1 In Preop 10/08/19 09:08:00 Ready for Holding n/a Room Patient Ready for n/a Surgery Patient Out of Preop 10/08/19 09:33:00 Patient Out of n/a Holding Room Last Modified By: Whitney Huynh Rn 10/08/19 09:35:13 [facility] PreOp Case Times Audit 10/08/19 09:35:13 Accounting Professional: [email or web address] Modifier: [email or web address] <+> 1 Patient Out of Preop Finalized By: Whitney Huynh, Rn Document Signatures Signed By: Whitney Huynh Rn 10/08/19 09:35 documented in this encounter Plan of Treatment Not on file documented as of this encounter Visit Diagnoses Not on filedocumented in this encounter Care Teams Grinder Set Up Operator Internal Relationship Specialty Start Date End Date Salima Gonzáles, DO 8 [facility] [address] [place] [address] PCP - General Family Medicine 02/09/23 documented as of this encounter
--- OUTSIDE RECORDS SUMMARY | 2024-04-10 14:15 | XMS_ITS | Encounter Summary ---
Author Organization Healthcare Address [address] [place] [address] Care Team Providers Care Recyclable Products Sorter Name Role Phone Salima Gonzáles DO Primary Care Provider [phone] Encounter Details Date Type Department Care Team [...] documented as of this encounter Care Teams Recyclable Products Sorter Relationship Specialty Start Date End Date Salima Gonzáles DO [address] [place] [address] PCP - General 09/17/20 documented as of this encounter
--- OUTSIDE RECORDS SUMMARY | 2024-04-10 14:15 | XMS_ITS | Encounter Summary ---
Author Organization Healthcare Address [address] [id number] Care Team Providers Care Transit Proof Machine Operator Name Role Phone Salima Gonzáles Primary Care Provider [phone] Reason for Visit * Reason Comments Post-op Encounter Details Date Type Department Care Team (Latest Contact Info) Description 06/07/2021 10:50 AM EST Office Visit Medical Office Building [facility] [address], [address] [place] [address] Neela Flynn MD [address] [place] [address] Closed fracture of distal end of left femur with routine healing, unspecified fracture morphology, subsequent encounter (Primary Dx); Displaced intertrochanteric fracture of left femur, init ([facility]) Social History Tobacco Use Types Packs/Day Years [...] LEFT 2+ VIEWS ordered by NEELA FLYNN, [id number] CLINICAL INDICATION: Pain TECHNIQUE: XR FEMUR LEFT [...] LEFT 2+ VIEWS ordered by NEELA FLYNN, [id number] CLINICAL INDICATION: Pain TECHNIQUE: XR FEMUR LEFT [...] Displaced intertrochanteric fracture of left femur, init ([facility]) documented in this encounter Additional Health Concerns Assessment Noted Time A fall risk assessment has been complete d for the patient 06/07/2021 10:34 AM EST documented as of this encounter Care Teams Transit Proof Machine Operator Relationship Specialty Start Date End Date Salima Gonzáles DO [address] [place] [address] PCP - General 09/17/20 documented as of this encounter
--- OUTSIDE RECORDS SUMMARY | 2024-04-10 14:15 | XMS_ITS | Encounter Summary ---
Author Organization Healthcare Address [address] [place], [place] [id number] Care Team Providers Care Plating Technician Name Role Phone Salima Gonzáles Primary Care Provider [phone] Reason for Visit * Reason Comments Post-op Encounter Details Date Type Department Care Team ([facility] st Contact Info) Description 05/17/2021 8:10 AM EST Office Visit Medical Office Building [facility] [address], [address] [place] [address] Bebeto Flynn MD [address] [place] [address] Closed fracture of distal end [...] and actively ranging knee w/out major issue. [place] removed today and steri strips placed. F/u [...] documented as of this encounter Care Teams Plating Technician Relationship Specialty Start Date End Date Salima Gonzáles DO [address] [place] [address] [place] [address] PCP - General 09/17/20 documented as of this encounter
--- OUTSIDE RECORDS SUMMARY | 2024-04-10 14:15 | XMS_ITS | Encounter Summary ---
Author Organization [facility] Address [address] [id number] Care Team Providers Care Customs Opener Verifier Packer Name Role Phone Salima Gonzáles Primary Care Provider [phone] Reason for Visit * Reason Onset Date Comments HCN - Patient Message 08/03/2022 Encounter Details Date Type Department Care Team ([facility] st Contact Info) Description 08/03/2022 Telephone Medical Office Building [facility] [address], [address] [place] [address] Bebeto Flynn MD [address] [place] [address] HCN - Patient Message Social [...] ahead of that appt. Best contact number: [phone] Optimal time of day to reach caller: ANYTIME Additional comments/information from caller: None Note: Please do not reply to this message. Follow-up communication and further actions as a result of this message need to be communicated with the patient directly, if the patient is not active onMyChart. If the patient is active on MyChart, they will receive notification of the communication/outcome via [employer]. documented in this encounter Plan of Treatment Not on file documented as of this encounter Visit Diagnoses Not on filedocumented in this encounter Additional Health Concerns Assessment Noted Time A fall risk assessment has been complete d for the patient 08/23/2021 2:23 PM EDT documented as of this encounter Care Teams Customs Opener Verifier Packer Relationship Specialty Start Date End Date Salima Gonzáles DO [address] [place], [place] [address] PCP - General 09/17/20 documented as of this encounter
--- OUTSIDE RECORDS SUMMARY | 2024-04-10 14:15 | XMS_ITS | Encounter Summary ---
Author Organization Healthcare Address [facility] [place] [id number] Care Team Providers Care El Teacher Name Role Phone Eliecer Salima Ybarra Primary Care Provider [phone] Reason for Visit * Reason Comments Fall * Auth/Cert Specialty Diagnoses / Procedures Referred By Contac t Referred To Contact Diagnoses Closed fracture of distal end of left femur, unspecified fracture morphology, initial encounter (CMS/[facility]) Fall, femur fx Ji Matos MD [address] [address] Phone: tel: fax: [facility] H Inpatient [address] [place] [address] Phone: tel: Referral ID Status Reason Start Date Expiration Date Visits Re quested Visits Authorized [id number] 1 1 Encounter Details Date Type Department Care Team (Late st Contact Info) Description 04/30/2021 12:34 PM EST - 05/07/2021 9:14 AM [facility] Hospital Encounter P[facility] H Inpatient [address] [place] [id number] Samson Bustamante MD [address] [place] [address] Clay Oviedo MD [address] [place] [address] Ji Matos MD [address] [address] Dory Slade MD [address] [place] [address] Closed fracture of distal end of left femur, unspecified fracture morphology, initial encounter ([facility]) (Primary Dx) Discharge Disposition: Home or Self [...] clot in the space between bone fragments. [employer] last reviewed this educational content on 09/04/2017 ?? [id number] [employer]. All rights reserved. This information is not intended as a substitute for professional medical care. Always follow your healthcare professional's instructions. * Attachments The following attachments cannot be sent through Care Everywhere. * Femur Fracture Open Reduction and Internal Fixation (ORIF), Understanding (Gambian) * Femur Fracture Open Reduction and Internal Fixation (ORIF), Having (Gambian) * Fractured Femur: Internal Fixation, Discharge Instructions for (Gambian) * Surgical Site Infections, Preventing (Gambian) * Weight Bearing Status: What It Means ([place]) (Gambian) * Acetaminophen Oral Tablet 500 mg (Gambian) * Enoxaparin Prefilled Syringe 60 mg/0.6 mL (Gambian) * Gabapentin Oral Capsule 300 mg (Gambian) * Levofloxacin Oral Tablet 750 mg (Gambian) * Melatonin Oral Tablet 3 mg (Gambian) * Methocarbamol Oral Tablet 500 mg (Gambian) * Oxycodone Oral Tablet 5 mg (Gambian) * Controlled Substance Discharge Sheet - [facility] () (Gambian) * Senna /Docusate Oral Tablet 8.6 mg / 50 mg (Gambian) documented in this encounter Medications at Time [...] HH PT/OT. Referrals for DME sent to [facility]. Referrals sent for HH. No accepting agency at this time. Provider to give pt a script for outpt PT/OT in the event she isn't picked up by HH. Will follow and assist asneeded. Marilu CHAVIRA, RN Trauma/EGS [phone] * Discharge Instr - Appointments - Isiah Crawley RN - 05/06/2021 9:44 AM EST Follow up with Primary Care Provider one week after discharge. Follow up as needed with trauma clinic (Sunday clinic) [address] [place] [address] Clinic 1st [place] [address] Questions or Concerns and Appointments If there are questions or concerns after discharge from the hospital, please call [phone] and ask for Blue Surgery Nurse. Working hours are Sunday - Sunday 8:00 AM to 4:00 PM. After hours, weekends and holidays please call [phone] and ask for the resident cone worker for Blue Surgery. For appointments please call [phone]. Medication requests should be made between the [...] Transfer Exam: Sit to stand Level of Humphreys: Stand-by assist Physical/Nonphysical Assist: Verbal Cues (for hand placement) Assistive Device: Walker, rolling Transfer Exam: Stand to Sit Level of Humphreys: Stand-by assist Physical/Nonphysical Assist: Verbal Cues (for [...] name and Address: Salima Gonzáles, DO [address] / [facility] [address] Referring provider name and address: Shaquille Gaming MD [address] [address] Chief Concern, Brief History of Present Illness, [...] as needed with trauma clinic (Sunday clinic) [address] [place] [address] 1st [place] [address] Questions or Concerns and Appointments If there are questions or concerns after discharge from the hospital, please call [phone] and ask for Blue Surgery Nurse. Working hours are Sunday - Sunday 8:00 AM to 4:00 PM. After hours, weekends and holidays please call [phone] and ask for the resident cone worker for Blue Surgery. For appointments please call [phone]. Medication requests should be made between the [...] Request Operating Room: INSERTION, INTRAMEDULLARY JESSE, FEMUR [place] Periprosthetic Retrograde Femur Nail INSERTION, INTRAMEDULLARY JESSE, FEMUR [place] Periprosthetic Retrograde Femur Nail (Left) Medication List [...] Your Medications These medications were sent to [facility] [place], [place] - [address] , [facility] [address] ?? acetaminophen 500 MG tablet ?? enoxaparin [...] Department Center 05/17/2021 8:10 AM MD ELLIE CarranzaGSVTB MOB Pertinent Physical Exam At Time of [...] Note Ambika Pratt 55 y.o. female CSN: [id number] Room/Bed 874/874A Nutrition evaluation type: assessment Reason for evaluation: LOS Hospital course: 55 yo female S/P ORIF left femur fracture on 05/01. Past medical/ surgical history: has a past medical history of COPD (chronic obstructive pulmonary disease) ([facility]), Diabetes mellitus ([facility]), Hypertensive heart disease without congestive heart failure, [...] Weight Evaluation: Extreme Obesity (BMI > 40) [place] Body Weight (kg): 47.7 Percent [place] Body Weight: 252 Estimated Needs: Grams of CHO Percent calories from CHO: Current Nutrition Intake: Diet Order: Adult Diet Diet Texture: Regular Adult Carbohydrate Restriction: Consistent CHO 2 (0136-8326 Usman, 80 g/meal) Percent Meals Eaten (%): 75%/75%/33% (05/03) Diet Experience and Nutrition History: Diet Education Provided: Will monitor Pertinent home medications: Yazdanism needs: Nutrition Focused Physical Exam: Unable to [...] Note Ambika Pratt 55 y.o. female CSN: [id number] Admission: 04/30/2021 12:34 PM Primary Problem: Closed fracture of left distal femur (CMS/HCC) Anticipated Discharge Date: tbd Has Discharge Plans Changed? No Additional Comments Per primary treatment team, patient medically ready for rehab. Referral sent to [facility] 05/03, reviewing for possible acceptance. will continue to follow and assist. JOSE Castillo, FUEL OIL TRUCK DRIVER Trauma/EGS Rubber Engraver [phone] * Progress Notes - Tad Fuller PTA [...] session. Participants in Care Family/Caregiver Present: No Tempering Kiln Tender: Not Applicable Presentation Oxygen Therapy: None (Room [...] PM. * Progress Notes - Yamini Belcher, WRAPPER SIZER - 05/05/2021 10:02 AM EST 05/05/21 Ambika [...] Yamini Belcher APRN * Care Plan - aSvanna Pressley RN - 05/05/2021 8:00 AM EST [...] Outcome: Ongoing, Progressing * Care Plan - Dahila Velasco RN - 05/04/2021 1:50 PM EST [...] urination. Patient tolerating po intake. Last BM ADJUNCT HISTORY INSTRUCTOR. Patient and nurse have no other concerns [...] sessions. Participants in Care Family/Caregiver Present: No Tempering Kiln Tender: Not Applicable Presentation Oxygen Therapy: None (Room [...] transfer. Bed Mobility Exam: Rolling/Turning Level of Humphreys: Contact guard Physical/Nonphysical Assist: Set-up required Assistive Device: Bed rails Bed Mobility Exam: Scooting/Bridging Level of Humphreys: Contact guard (in sitting to edge of bed) Physical/Nonphysical Assist: Set-up required,Verbal Cues Assistive Device: Bed rails Bed Mobility Exam: Supine to Sit Level of Humphreys: Contact guard Physical/Nonphysical Assist: Set-up required,Verbal Cues,Moderate cues Assistive Device: Bed rails Bed Mobility Exam: Sit to Supine Level of Humphreys: (Pt left seated in bedside chair.) Transfers Transfer Exam: Sit to stand Level of Humphreys: Contact guard Physical/Nonphysical Assist: Set-up required,Verbal Cues,Minimal cues Assistive Device: Walker, rolling Transfer Exam: Stand to Sit Level of Humphreys: Contact guard Physical/Nonphysical Assist: Set-up required,Verbal Cues,Minimal cues Assistive Device: Walker, rolling Transfer Exam: Bed to Chair/Chair to Bed Level of Humphreys: Contact guard Physical/Nonphysical Assist: Set-up required,Verbal Cues [...] a helper. 5 Set-up or Clean-up Assistance Campbell sets up or cleans up; patient completes activity. Campbell assists only prior to or following the activity. 4 Supervision or touching assistance Campbell provides verbal cues and/or touching/steadying and/or contact guard assistance as patient completes activity. Assistance may be provided throughout the activity or intermittently. 3 Partial/Moderate Assistance Campbell does LESS THAN HALF the effort. Campbell lifts, holds or supports trunk or limbs, but provides less than half the effort. 2 Substantial/Maximal Assistance Campbell does MORE THAN HALF the effort. Campbell lifts or holds trunkor limbs and provides more than half the effort. 1 Dependent Campbell does ALL of the effort. Patient does [...] Note Ambika Pratt 55 y.o. female CSN: [id number] Admission: 04/30/2021 12:34 PM Primary Problem: Closed fracture of left distal femur (CMS/HCC) Anticipated Discharge Date: tbd Has Discharge Plans Changed? No Additional Comments Per primary treatment team, patient is medically ready for discharge on this date. PT re-evaluated on this date due to concerns of discharge home. Recs changed to acute rehab. SW sent referrals to [facility] and the [employer] on this date. SW will continue to follow and assist. JOSE Castillo, FUEL OIL TRUCK DRIVER Trauma/EGS Rubber Engraver [phone] * Progress Notes - Gabby Pratt APRN [...] APRN * Progress Notes - Aurora Ryan, ADJUNCT HISTORY INSTRUCTOR - 05/03/2021 11:03 AM EST Physical Therapy [...] Mobility Bed Mobility Exam: Scooting/Bridging Level of Humphreys: Minimum assist (75% patient's effort) Physical/Nonphysical Assist: Set-up required,Verbal Cues Assistive Device: Bed rails Bed Mobility Exam: Supine to Sit Level of Humphreys: Minimum assist (75% patient's effort) Physical/Nonphysical Assist: Moderate cues (HOB flat) Assistive Device: Bed rails Transfers Transfer Exam: Sit to stand Level of Humphreys: Minimum assist (75% patient's effort) Physical/Nonphysical Assist: Set-up required,Verbal Cues,Moderate cues Assistive Device: Walker, rolling Transfer Exam: Stand to Sit Level of Humphreys: Contact guard Physical/Nonphysical Assist: Set-up required,Verbal Cues,Minimal cues Assistive Device: Walker, rolling Toilet Transfer Level of Humphreys: Minimum assist (75% patient's effort) Physical/Nonphysical Assist: [...] Assessment Unable to assess 05/03/21799 Nia-Wound Assessment Red;Ecchymotic;Erythematous;Hyperpigmented;[place];Dry 05/03/21799 Drainage Amount None 05/03/21 08 Treatments [...] please contact the Orthopedic Transition Nurse at [phone] Sunday through Sunday 8:00 am to 2:30 [...] standpoint Travis Neumann MD PGY-3, Orthopaedic Surgery [facility] Orthopaedic Trauma Service Pager: [phone] Orthopaedic Recon/Spine/Foot and Ankle Service Pager: [phone] Personal Pager: [phone] Cosigned by Vadim Molina MD at 05/06/2021 [...] Aguilar Fadi Terence 55 y.o. female CSN: [id number] Admission: 04/30/2021 12:34 PM Primary Problem: Closed fracture of left distal femur (CMS/HCC) Cleaning Handyman reviewed chart and spoke with patient to complete this Initial Case Management Assessment. PCP: Salima Gonzáles DO Emergency Contact: Extended Emergency Contact Information Primary Emergency Contact: Ambreen De Anda Mobile Relation: Daughter Preferred language: Gambian Tempering Kiln Tender needed? No Insurance: Primary Visit Coverage Payer Plan Sponsor Code Group Number Group Name ANTHEM MEDICARE ANTHEM SENIOR ADVANTAGE [id number] Primary Visit Coverage Subscriber Subscriber ID Subscriber Name Subscriber N Subscriber Address [id number] AMBIKA PIERRE [id number] [place] [id number] Patient information: Patient is a 55 y.o. female admitted due to a fall from standing after tripping over her grandson'stoys. Injuries include closed fracture of left distal femur. Daily Living Activities: [address] [place] [address] Anticipated Discharge Date: tbd Assistance Available at [...] to follow and assist. Karma Gamez MSW, FUEL OIL TRUCK DRIVER Trauma/EGS Rubber Engraver [phone] * Progress Notes - Vianca Ma, PT [...] Procedures 05/01/2021 Procedure(s): INSERTION, INTRAMEDULLARY JESSE, FEMUR [place] Periprosthetic Retrograde Femur Nail Past Medical History [...] Not accessible Home Living Comments: live in [place]; works as a [employer]; patient's daughter and her two grandchildren live [...] admission Level of Mobility: Ambulatory- community Mobility Humphreys: Independent gait without device History of Falls: [...] Mobility Exam: Supine to Sit Level of Humphreys: Minimum assist (75% patient's effort) Physical/Nonphysical Assist: HOB elevated Transfers Transfer Exam: Sit to stand Level of Humphreys: Contact guard Assistive Device: Walker, rolling Transfer Exam: Stand to Sit Level of Humphreys: Contact guard Assistive Device: Walker, rolling Demonstrated [...] was instructed on upright posture. Standardized Assessments [facility] 6-Clicks Mobility Assessment Difficulty patient has turning [...] climbing 3-5 steps with a railing?: Unable [facility] 6-Clicks Mobility Assessment Total : 18 Assessment [...] Procedures 05/01/2021 Procedure(s): INSERTION, INTRAMEDULLARY JESSE, FEMUR [place] Periprosthetic Retrograde Femur Nail Past Medical History Patient has a past medical history of COPD (chronic obstructive pulmonary disease) ([facility]), Diabetes mellitus (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 Pt scooted(I) in bedside chair to back of chair.) Physical/Nonphysical Assist: Set-up required,Verbal Cues Assistive Device: Other (draw sheet) Bed Mobility Exam: Supine to Sit Level of Humphreys: Minimum assist (75% patient's effort) Physical/Nonphysical Assist: HOB elevated,Set-up required,Verbal Cues Assistive Device: Bed rails Bed Mobility Exam: Sit to Supine Level of Humphreys: (Pt left seated in bedside chair.) Balance [...] up: Dr. Flynn, 05/17/21 Disposition: admitted to [facility] Johnny Agudelo MD PGY-1, Orthopaedic Surgery [facility] Orthopaedic Trauma Service Pager: [phone] Orthopaedic Recon/Spine/Foot and Ankle Service Pager: [phone] Cosigned by Bebeto Flynn MD at 05/02/2021 [...] PM EST Operative Note Date: 05/01/21 Location: [facility] Name: Ambika Pratt, : 1965, Diagnoses: Pre-op Diagnosis Closed fracture of distal end of left femur, unspecified fracture morphology, initial encounter ([facility]) Post-op Diagnosis Closed fracture of distal end of left femur, unspecified fracture morphology, initial encounter ([facility]) Procedure(s): Treatment of femoral shaft fracture with intramedullary implant Attending Surgeon(s): * Bebeto Flynn - Primary Hse Manager(s): Dr. Crow Lockwood Anesthesia: General ASA: III [...] RETRO T2 ALPHA 11MM X 340MM - [id number] Implanted Screw SCREW LOCKING T2 D5XL80 - [id number] - [id number] Implanted [id number] SCREW LOCKING T2 D5XL50 - [id number] Implanted SCREW LOCKING T2 D5XL60 - [id number] Implanted SCREW LOCKING T2 D5XL75 - [id number] Implanted SCREW LOCKING T2 D5XL55 - [id number] Implanted SCREW LOCKING T2 D5X32.5 - [id number] Implanted SCREW LOCKING T2 D5X37.5 - [id number] Implanted Specimen: none Findings: stable fracture, stable [...] knee was noted to be a Press-Fit [place] Triathlon. Despite continuing the hospital, implant records [...] proximal interlocking bolts were placed using perfect round valley technique. Final fluoroscopic imaging demonstrated acceptable reduction and hinduism of length alignment rotation when comparing lessre [...] 05/01/2021 1:45 PM EST Date: 05/01/21 Location: [facility] Name: Ambika Aponte Terence, : 1965, Diagnoses: Pre-op Diagnosis Closed fracture of distal end of left femur, unspecified fracture morphology, initial encounter ([facility]) Post-op Diagnosis Closed fracture of distal end of left femur, unspecified fracture morphology, initial encounter ([facility]) Procedure(s): Retrograde IMN L femur fx Attending Surgeon(s): Tiny Flynn - Primary Hse Manager(s): florin Anesthesia: General ASA: III Blood Administration: Blood Product Administration History None Estimated Blood Loss: 250 mL Drains: * None in log * Implants Type Name Action Serial No. Nail NAIL FEMORAL RETRO T2 ALPHA 11MM X 340MM - [id number] Implanted Screw SCREW LOCKING T2 D5XL80 - [id number] - [id number] Implanted [id number] SCREW LOCKING T2 D5XL50 - [id number] Implanted SCREW LOCKING T2 D5XL60 - [id number] Implanted SCREW LOCKING T2 D5XL75 - [id number] Implanted SCREW LOCKING T2 D5XL55 - [id number] Implanted SCREW LOCKING T2 D5X32.5 - [id number] Implanted SCREW LOCKING T2 D5X37.5 - [id number] Implanted Specimen: none Findings: stable fracture Complications: [...] needed with trauma clinic (Sunday clinic) [address] [facility] 1st floor [place], [place] [address] Questions or Concerns and Appointments If there are questions or concerns after discharge from the hospital, please call [phone] and ask for Blue Surgery Nurse. Working hours are Sunday - Sunday 8:00 AM to 4:00 PM. After hours, weekends and holidays please call [phone] and ask for the resident cone worker for Blue Surgery. For appointments please call [phone]. Medication requests should be made between the [...] Date ??? COPD (chronic obstructive pulmonary disease) ([facility]) ??? Diabetes mellitus ([facility]) ??? Hypertensive heart disease without congestive heart [...] (Principal) Closed fracture of left distal femur ([facility]) Overview Addendum 04/30/2021 4:01 PM by Forrest [...] Hdz MD Admit to trauma floor Diabetes ([facility]) Overview Addendum 05/01/2021 8:17 AM by Ava [...] Resident Physician Orthopedic Reconstructiion ([facility]) Service Pager: [phone] Orthopedic Trauma ([facility]) Service Pager: [phone] Cosigned by Bebeto Flynn MD at 05/01/2021 [...] history of COPD (chronic obstructive pulmonary disease) ([facility]), Diabetes mellitus ([facility]), and Hypertensive heart disease without congestive heart [...] Exposure Concern ??? Not on file Employer: [employer] Immunizations VACCINE/DOSE Flu Tetanus Pneumovax Shingles [...] (264 lb 8.8 oz), SpO2 98 %. Addison 15 Intubated No Recent Results Labs in [...] knee replacements with Dr. Doty, now in [place], [place]. [facility]. L TKA 2013. Press fit Abdiel Triathalon. Reports uncomplicated postoperative course, satisfied with outcome. R TKA 2015. Lithotripsy approx 10 days ago Heel spur removal x2 x2 Hysterectomy Cholecystectomy FAMILY HISTORY Family history reviewed and otherwise non-contributory. SOCIAL HISTORY Tobacco: 1/2ppd [id number] EtOH: denies Illicits: denies Lives in [place], [place] with daughter Employment: [employer] REVIEW OF SYSTEMS Review of systems is [...] institutional protocol Daniel Campoverde MD Orthopaedic Surgery [facility] Orthopaedic Trauma Service Pager: [phone] Orthopaedic Recon/Spine/Foot and Ankle Service Pager: [phone] Cosigned by Bebeto Flynn MD at 05/01/2021 [...] Exposure Concern ??? Not on file Employer: [employer] Travel History Relevant International Travel History: [...] left femur, unspecified fracture morphology, initial encounter ([facility]) MDM Number of Diagnoses or Management Options Closed fracture of distal end of left femur, unspecified fracture morphology, initial encounter ([facility]) Diagnosis management comments: I assessed this patient [...] left femur, unspecified fracture morphology, initial encounter ([facility]) PROTHROMBIN TIME(PT) / INR Routine 05/01/2021 2:21 [...] Comment 05/06/2021 11:40 AM EST [facility] Tank Builder And Erector ID Iram Phillips 05/06/2021 11:40 AM EST [facility] Device ID [id number] 05/06/2021 11:40 AM EST [facility] Specimen Type POC Capillary 05/06/2021 11:40 AM EST [facility] Blood Capillary blood specimen / Unknown 05/06/2021 11:34 AM EST 05/06/2021 11:40 AM EST Dory Slade MD LAB POINT OF CARE TEST DOCKED DEVICE UNSOLICITED RESULTS Final Result Performing Organization Address City/State/[facility] Co de Phone Number [facility] [address] [place] [address] * SARS CoV-2/COVID-19 by PCR (05/06/2021 10:05 [...] recommendations. This test was performed using the [employer] M2000 SARS CoV-2 test, a qualitative PCR-based [...] OR DERABLES Final Result Performing Organization Address [facility] Co de Phone Number [facility] [address] [place] [address] * (ABNORMAL) POCT glucose meter (05/06/2021 7:26 [...] for testing. Comment 05/06/2021 7:30 AM EST [facility] Tank Builder And Erector ID Iram Phillips 05/06/2021 7:30 AM EST [facility] Device ID [id number] 05/06/2021 7:30 AM EST [facility] Specimen Type POC Capillary 05/06/2021 7:30 AM EST [facility] Blood Capillary blood specimen / Unknown 05/06/2021 7:26 AM EST 05/06/2021 7:30 AM EST Dory Slade MD LAB POINT OF CARE TEST DOCKED DEVICE UNSOLICITED RESULTS Final Result Performing Organization Address [facility] Co de Phone Number [facility] [address] [place] [address] * (ABNORMAL) POCT glucose meter (05/05/2021 7:26 [...] 05/05/2021 7:30 PM EST [facility] Tank Builder And Erector ID Sandra Araujo 021 7:30 PM EST [facility] Device ID [id number] 05/05/2021 7:30 PM EST [facility] Specimen Type POC Capillary 05/05/2021 7:30 PM EST [facility] Blood Capillary blood specimen / Unknown 05/05/2021 7:26 PM EST 05/05/2021 7:30 PM EST us Dory Slade MD LAB POINT OF CARE TEST DOCKED DEVICE UNSOLICITED RESULTS Final Result Performing Organization Address [facility] de Phone Number [facility] [address] [place] [address] * (ABNORMAL) POCT glucose meter (05/05/2021 6:22 [...] 05/05/2021 6:25 PM EST [facility] Tank Builder And Erector ID Keeley Womack 05/05/20 6:25 PM EST [facility] Device ID [id number] 05/05/2021 6:25 PM [facility] Specimen Type POC Capillary 05/05/2021 6:25 PM [facility] Blood Capillary blood specimen / Unknown 05/05/2021 6:22 PM EST 05/05/2021 6:25 PM EST us Dory Slade MD LAB POINT OF CARE TEST DOCKED DEVICE UNSOLICITED RESULTS Final Result Performing Organization Address City/[facility] Co de Phone Number [facility] [address] [place] [address] * (ABNORMAL) POCT glucose meter (05/05/2021 4:52 [...] for testing. Comment 05/05/2021 4:55 PM EST [facility] [employer] ID Keeley Womack 05/05/20 4:55 PM EST [facility] Device ID [id number] 05/05/2021 4:55 PM EST [facility] Specimen Type POC Capillary 05/05/2021 4:55 PM EST [facility] Blood Capillary blood specimen / Unknown 05/05/2021 4:52 PM EST 05/05/2021 4:55 PM EST Dory Slade MD LAB POINT OF CARE TEST DOCKED DEVICE UNSOLICITED RESULTS Final Result [facility] [address] [place] [address] * (ABNORMAL) POCT glucose meter (05/05/2021 11:20 AM EST) [facility] POCT Glucose 134(H) 74 - 99 mg/dL 05/05/2021 11:25 AM EST [facility] Comment:Accuracy of a glucos e result [...] 05/05/2021 11:25 AM EST [facility] [employer] ID Keeley Womack 05/05/20 11:25 AM EST [facility] Device ID [id number] 05/05/2021 11:25 AM EST [facility] Specimen Type POC Capillary 05/05/2021 11:25 AM EST [facility] Blood Capillary blood specimen / Unknown 05/05/2021 11:20 AM EST 05/05/2021 11:25 AM EST us Dory Slade MD LAB POINT OF CARE TEST DOCKED DEVICE UNSOLICITED RESULTS Final Result Performing Organization Address City/[facility] Co de Phone Number [facility] [address] [place] [address] * (ABNORMAL) POCT glucose meter (05/05/2021 7:38 [...] for testing. Comment 05/05/2021 7:40 AM EST [facility] [employer]re[employer] ID Keeley Womack 05/05/20 7:40 AM EST [facility] Device ID [id number] 05/05/2021 7:40 AM EST [facility] Specimen Type POC Capillary 05/05/2021 7:40 AM EST [facility] Blood Capillary blood specimen / Unknown 05/05/2021 7:38 AM EST 05/05/2021 7:40 AM EST us Dory Slade MD LAB POINT OF CARE TEST DOCKED DEVICE UNSOLICITED RESULTS Final Result Performing Organization Address City/[facility]/ZIP Co de Phone Number [facility] [address] [place] [address] * (ABNORMAL) POCT glucose meter (05/04/2021 10:04 [...] for testing. Comment 05/04/2021 10:10 PM EST [facility] [employer]re[employer] ID Xenia Hummel 05/04/2021 10:10 PM EST [facility] Device ID [id number] 05/04/2021 10:10 PM EST [facility] Specimen Type POC Capillary 05/04/2021 10:10 PM EST [facility] Blood Capillary blood specimen / Unknown 05/04/2021 10:04 PM EST 05/04/2021 10:10 PM EST Dory Slade MD LAB POINT OF CARE TEST DOCKED DEVICE UNSOLICITED RESULTS Final Result Performing Organization Address City/[facility] Co de Phone Number [facility] [address] [place] [address] * Urinalysis Microscopic Examination (05/04/2021 4:52 PM EST) Urine Urine specimen obtained by clean catch procedure / Unknown Non-blood Collection / Unknown 05/04/2021 4:52 PM EST 05/04/2021 5:02 PM EST Gabby Pratt WRAPPER SIZER, DNP LAB URINE ORDERABLES Fi nal Result Performing Organization Address City/[facility] Co de Phone Number [facility] [address] [place] [address] * (ABNORMAL) Urinalysis with reflex microscopic (05/04/2021 4:52 PM EST) Color, Urine Yellow LAB URINALYSIS - AUTOMATED METHOD 05/04/2021 5:11 PM EST [facility] Clarity, Urine Clear LAB URINALYSIS - AUTOMATED METHOD 05/04/2021 5:11 PM EST [facility] Spec [place], Urine 1.019 <=1.005 to >=1.030 LAB URINALYSIS - AUTOMATED METHOD 05/04/2021 5:11 PM EST [facility] pH, Urine 6.5 4.5 to 8 LAB URINALYSIS - AUTOMATED METHOD 05/04/2021 5:11 PM EST [facility] Protein, Urine Negative Negative mg/dL LAB URINALYSIS - AUTOMATED METHOD 05/04/2021 5:[address] [facility] Glucose, Urine Negative Negative mg/dL LAB URINALYSIS - AUTOMATED METHOD 05/04/2021 5:[address] [facility] Ketones, Urine Negative Negative mg/dL LAB URINALYSIS - AUTOMATED METHOD 05/04/2021 5:[address] [facility] Blood, Urine Negative Negative LAB URINALYSIS - AUTOMATED METHOD 05/04/2021 5:[address] [facility] Bilirubin, Urine Negative Negative LAB URINALYSIS - AUTOMATED METHOD 05/04/2021 5:[address] [facility] Urobilinogen, Urine 1.0 0.2 to 1.0 mg/dL LAB URINALYSIS - AUTOMATED METHOD 05/04/2021 5:[address] [facility] Leukocytes, Urine Trace(A) Negative LAB URINALYSIS - AUTOMATED METHOD 05/04/2021 5:[address] [facility] Nitrite, Urine Negative Negative LAB URINALYSIS - AUTOMATED METHOD 05/04/2021 5:[address] [facility] RBC, Urine 2 0 to 3 /HPF LAB URINALYSIS - AUTOMATED METHOD 05/04/2021 5:[address] [facility] Comment:This result was prev iously suppressed from the chart. WBC, Urine 0 - 5 0 to 5 /HPF LAB URINALYSIS - AUTOMATED METHOD 05/04/2021 5:[address] [facility] Comment:This result was prev iously suppressed from the chart. Squamous Epithelial Cells 0 - 5 0 to 5 /HPF LAB URINALYSIS - AUTOMATED METHOD 05/04/2021 5:[address] [facility] Comment:This result was prev iously suppressed from the chart. Hyaline Casts 0 - 8 0 to 8 /LPF LAB URINALYSIS - AUTOMATED METHOD 05/04/2021 5:[address] [facility] Comment:This result was prev iously suppressed from the chart. Bacteria, Urine Negative Negative LAB URINALYSIS - AUTOMATED METHOD 05/04/2021 5:[address] [facility] Comment:This result was prev iously suppressed from the chart. Urine Urine specimen obtained by clean catch procedure / Unknown Non-blood Collection / Unknown 05/04/2021 4:52 PM EST 05/04/2021 5:02 PM EST us Gabby Pratt WRAPPER SIZER, DNP LAB URINE ORDERABLES Fi nal Result Performing Organization Address [facility] Co de Phone Number [facility] [address] [place] [address] * (ABNORMAL) POCT glucose meter (05/04/2021 4:42 PM EST) POCT Glucose 113(H) 74 - 99 mg/dL 05/04/2021 4:45 PM EST [facility] Comment:Accuracy of a glucos e result [...] for testing. Comment 05/04/2021 4:45 PM EST [facility] [employer]re[employer] ID Tereza Feng 05/04/2021 4:45 PM EST [facility] Device ID [id number] 05/04/2021 4:45 PM EST [facility] Specimen Type POC Capillary 05/04/2021 4:45 PM EST [facility] Blood Capillary blood specimen / Unknown 05/04/2021 4:42 PM EST 05/04/2021 4:45 PM EST Dory Slade MD LAB POINT OF CARE TEST DOCKED DEVICE UNSOLICITED RESULTS Final Result Performing Organization Address [facility] Phone Number [facility] [address] [place] [address] * (ABNORMAL) POCT glucose meter (05/04/2021 11:44 AM EST) POCT Glucose 102(H) 74 - 99 mg/dL 05/04/2021 11:50 AM EST [facility] Comment:Accuracy of a glucos e result [...] 05/04/2021 11:50 AM EST [facility] [employer]re[employer] ID Keeley Womack 05/04/20 11:50 AM EST [facility] Device ID [id number] 05/04/2021 11:50 AM EST [facility] Specimen Type POC Capillary 05/04/2021 11:50 AM EST [facility] Blood Capillary blood specimen / Unknown 05/04/2021 11:44 AM EST 05/04/2021 11:50 AM EST Dory Slade MD LAB POINT OF CARE TEST DOCKED DEVICE UNSOLICITED RESULTS Final Result Performing Organization Address City/[facility] de Phone Number [facility] [address] [place] [address] * (ABNORMAL) POCT glucose meter (05/04/2021 7:25 AM EST) Pathologist [facility] POCT Glucose 119(H) 74 - 99 mg/dL 05/04/2021 7:30 AM [facility] Comment:Accuracy of a glucos e result [...] Comment 05/04/2021 7:30 AM EST [facility] [employer] Builder And Ere[employer] ID Keeley Womack 05/04/20 7:30 AM EST [facility] Device ID [id number] 05/04/2021 7:30 AM EST [facility] Specimen Type POC Capillary 05/04/2021 7:30 AM EST [facility] Blood Capillary blood specimen / Unknown 05/04/2021 7:25 AM EST 05/04/2021 7:30 AM EST us Dory Slade MD LAB POINT OF CARE TEST DOCKED DEVICE UNSOLICITED RESULTS Final Result Performing Organization Address City/[facility] Co de Phone Number [facility] [address] [place] [address] * Aspartate Aminotransferase, Plasma (05/04/2021 5:50 AM EST) Pathologist [facility] AST, Plasma 21 11 - 32 U/L 05/04/2021 6:35 AM EST [facility] Blood Venous blood specimen / Unknown Venipuncture / Unknown 05/04/2021 5:50 AM EST 05/04/2021 6:01 AM EST us Gabby Pratt APRN, DNP LAB BLOOD ORDERABLES Fi nal Result Performing Organization Address City/[facility] Co de Phone Number [facility] [address] [place] [address] * (ABNORMAL) Alanine Aminotransferase, Plasma (05/04/2021 5:50 AM EST) Pathologist [facility] ALT, Plasma 57(H) 8 - 33 U/L 05/04/2021 6:35 AM EST [facility] Blood Venous blood specimen / Unknown Venipuncture / Unknown 05/04/2021 5:50 AM EST 05/04/2021 6:01 AM EST us Gabby Pratt APRN, [facility] LAB BLOOD ORDERABLES Fi nal Result Performing Organization Address City/[facility] Phone Number [facility] [address] [place] [address] * POCT glucose meter (05/03/2021 8:17 PM [...] 05/03/2021 8:20 PM EST [facility] [employer] Builder [employer] Erector ID Irene Cantor 05/03/2021 8:20 PM EST [facility] Device ID [id number] 05/03/2021 8:20 PM EST [facility] Specimen Type POC Capillary 05/03/2021 8:20 PM EST [facility] Blood Capillary blood specimen / Unknown 05/03/2021 8:17 PM EST 05/03/2021 8:20 PM EST Dory Slade MD LAB POINT OF CARE TEST DOCKED DEVICE UNSOLICITED RESULTS Final Result Performing Organization Address [facility] de Phone Number [facility] [address] [place] [address] * (ABNORMAL) POCT glucose meter (05/03/2021 5:35 [...] for testing. Comment 05/03/2021 5:40 PM [facility] [employer]re[employer] ID Dahlia Velasco 05/03/2021 5:40 PM [facility] Device ID [id number] 05/03/2021 5:40 PM EST [facility] Specimen Type POC Capillary 05/03/2021 5:40 PM EST [facility] Blood Capillary blood specimen / Unknown 05/03/2021 5:35 PM EST 05/03/2021 5:40 PM EST Dory Slade MD LAB POINT OF CARE TEST DOCKED DEVICE UNSOLICITED RESULTS Final Result Performing Organization Address [facility] de Phone Number [facility] [address] [place] [address] * POCT glucose meter (05/03/2021 12:14 PM [...] Comment 05/03/2021 12:15 PM EST [facility] Tank Builder [employer] Erector ID Keeley Womack 05/03/20 12:15 PM EST [facility] Device ID [id number] 05/03/2021 12:15 PM EST [facility] Specimen Type POC Capillary 05/03/2021 12:15 PM EST [facility] Blood Capillary blood specimen / Unknown 05/03/2021 12:14 PM EST 05/03/2021 12:15 PM EST us Dory Slade MD LAB POINT OF CARE TEST DOCKED DEVICE UNSOLICITED RESULTS Final Result Performing Organization Address City/[facility]/ZIP Co de Phone Number [facility] [address] [place] [address] * POCT glucose meter (05/03/2021 8:08 AM EST) Pathologist [facility] POCT Glucose 87 74 - 99 mg/dL [...] Comment 05/03/2021 8:10 AM EST [facility] Tank Builder And Erector ID Keeley Womack 05/03/20 8:10 AM EST [facility] Device ID [id number] 05/03/2021 8:10 AM EST [facility] Specimen Type POC Capillary 05/03/2021 8:10 AM EST [facility] Blood Capillary blood specimen / Unknown 05/03/2021 8:08 AM EST 05/03/2021 8:10 AM EST us Dory Slade MD LAB POINT OF CARE TEST DOCKED DEVICE UNSOLICITED RESULTS Final Result [facility] [address] [place] [address] * POCT glucose meter (05/03/2021 6:07 AM [...] 05/03/2021 6:10 AM EST [facility] [employer]re[employer] ID Shaquille Mak 05/03/2021 6:10 AM EST [facility] Device ID [id number] 05/03/2021 6:10 AM EST [facility] Specimen Type POC Capillary 05/03/2021 6:10 AM EST [facility] Blood Capillary blood specimen / Unknown 05/03/2021 6:07 AM EST 05/03/2021 6:10 AM EST Dory Slade MD LAB POINT OF CARE TEST DOCKED DEVICE UNSOLICITED RESULTS Final Result Performing Organization Address City/State/[facility] Co de Phone Number [facility] [address] [place] [address] * (ABNORMAL) POCT glucose meter (05/02/2021 9:15 [...] 05/02/2021 9:20 PM EST [facility] [employer]re[employer] ID Shana Bean 05/02/2021 9:20 PM EST [facility] Device ID [id number] 05/02/2021 9:20 PM EST [facility] Specimen Type POC Capillary 05/02/2021 9:20 PM EST [facility] Blood Capillary blood specimen / Unknown 05/02/2021 9:15 PM EST 05/02/2021 9:20 PM EST Dory Slade MD LAB POINT OF CARE TEST DOCKED DEVICE UNSOLICITED RESULTS Final Result Performing Organization Address City/[facility] de Phone Number [facility] [address] [place] [address] * (ABNORMAL) POCT glucose meter (05/02/2021 3:20 [...] for testing. Comment 05/02/2021 3:25 PM EST [facility] [employer]re[employer] ID Betty Coronado 05/02/2021 3:25 PM EST [facility] Device ID [id number] 05/02/2021 3:25 PM EST [facility] Specimen Type POC Capillary 05/02/2021 3:25 PM EST [facility] Blood Capillary blood specimen / Unknown 05/02/2021 3:20 PM EST 05/02/2021 3:25 PM EST Dory Slade MD LAB POINT OF CARE TEST DOCKED DEVICE UNSOLICITED RESULTS Final Result Performing Organization Address City/[facility] de Phone Number [facility] [address] [place] [address] * (ABNORMAL) POCT glucose meter (05/02/2021 11:26 [...] Comment 05/02/2021 11:45 AM EST [facility] Tank Builder And Erector ID Betty Coronado 05/02/2021 11:45 AM EST [facility] Device ID [id number] 05/02/2021 11:45 AM EST [facility] Specimen Type POC Capillary 05/02/2021 11:45 AM EST [facility] Blood Capillary blood specimen / Unknown 05/02/2021 11:26 AM EST 05/02/2021 11:45 AM EST us Dory Slade MD LAB POINT OF CARE TEST DOCKED DEVICE UNSOLICITED RESULTS Final Result Performing Organization Address City/[facility] Co de Phone Number [facility] [address] [place] [address] * (ABNORMAL) POCT glucose meter (05/02/2021 8:08 AM EST) [facility] Signature POCT Glucose 118(H) 74 - 99 mg/dL 05/02/2021 8:15 AM EST [facility] Comment:Accuracy of a glucos e result [...] Comment 05/02/2021 8:15 AM EST [facility] Tank Builder And Erector ID Betty Coronado 05/02/2021 8:15 AM EST [facility] Device ID [id number] 05/02/2021 8:15 AM EST [facility] Specimen Type POC Capillary 05/02/2021 8:15 AM EST [facility] Blood Capillary blood specimen / Unknown 05/02/2021 8:08 AM EST 05/02/2021 8:15 AM EST us Ji Matos MD LAB POINT OF CARE TE ST DOCKED DEVICE UNSOLICITED RESULTS Final Result Performing Organization Address City/[facility]/ZIP Co de Phone Number [facility] [address] [place] [address] * (ABNORMAL) Alanine Aminotransferase, Plasma (05/02/2021 3:59 AM EST) ALT, Plasma 152(H) 8 - 33 U/L 05/02/2021 12:38 PM EST [facility] Blood Venous blood specimen / Unknown Venipuncture / Unknown 05/02/2021 3:59 AM EST 05/02/2021 4:21 AM EST us Gabby Pratt APRN, DNP LAB BLOOD ORDERABLES Fi nal Result Performing Organization Address [facility] Co de Phone Number [facility] [address] [place] [address] * (ABNORMAL) Aspartate Aminotransferase, Plasma (05/02/2021 3:59 AM EST) AST, Plasma 117(H) 11 - 32 U/L 05/02/2021 12:38 PM EST [facility] Blood Venous blood specimen / Unknown Venipuncture / Unknown 05/02/2021 3:59 AM EST 05/02/2021 4:21 AM EST us Gabby Pratt APRN, DNP LAB BLOOD ORDERABLES Fi nal Result Performing Organization Address [facility] Phone Number [facility] [address] [place] [address] * (ABNORMAL) Basic metabolic panel (05/02/2021 3:59 AM EST) Glucose, Plasma 130(H) 74 - 99 mg/dL 05/02/2021 4:50 AM EST [facility] BUN, Plasma 13 7 - 21 mg/dL 05/02/2021 4:50 AM EST [facility] Creatinine, Plasma 0.81 0.60 - 1.10 mg/dL 05/02/2021 4:50 AM EST [facility] BUN/Creatinine Ratio 16 05/02/2021 4:50 AM EST [facility] Sodium, Plasma 139 136 - 145 mmol/L 05/02/2021 4:50 AM EST [facility] Potassium, Plasma 4.3 3.7 - 4.8 mmol/L 05/02/2021 4:50 AM EST [facility] Chloride, Plasma 103 97 - 107 mmol/L 05/02/2021 4:50 AM EST [facility] CO2, Plasma 27 22 - 29 mmol/L 05/02/2021 4:50 AM EST [facility] Anion Gap 9 6 - 16 mmol/L 05/02/2021 4:50 AM EST [facility] Total Calcium, Plasma 8.7(L) 8.9 - 10.2 mg/dL 05/02/2021 4:50 AM EST [facility] eGFR >60 >60 mL/min/1.7 3m*2 05/02/2021 4:50 AM EST [facility] Comment:eGFR = estimated GFR ; eGFR [...] >60 mL/min/1.7 3m*2 05/02/2021 4:50 AM EST [facility] Comment:eGFR = estimated GFR ; eGFR [...] RN LAB BLOOD ORDERABLES Final Resul t [facility] [address] [place] [address] * (ABNORMAL) CBC W/O Differential (05/02/2021 3:59 AM EST) WBC Count 9.98 3.70 - 10.30 10*3/uL LAB HEMATOLOGY METHOD 05/02/2021 4:48 AM EST [facility] RBC Count 3.26(L) 3.90 - 5.20 10*6/uL LAB HEMATOLOGY METHOD 05/02/2021 4:48 AM EST [facility] HGB 10.1(L) 11.2 - 15.7 g/dL LAB HEMATOLOGY METHOD 05/02/2021 4:48 AM EST [facility] HCT 31.5(L) 34.0 - 45.0 % LAB HEMATOLOGY METHOD 05/02/2021 4:48 AM EST [facility] Platelet Count 243 155 - 369 10*3/uL LAB HEMATOLOGY METHOD 05/02/2021 4:48 AM EST [facility] MCV 97 79 - 98 fL LAB HEMATOLOGY METHOD 05/02/2021 4:48 AM EST [facility] MCH 31.0 26.0 - 32.0 pg LAB HEMATOLOGY METHOD 05/02/2021 4:48 AM EST [facility] MCHC 32.1 30.7 - 35.5 g/dL LAB HEMATOLOGY METHOD 05/02/2021 4:48 AM EST [facility] RDW 13.5 11.5 - 14.5 % LAB HEMATOLOGY METHOD 05/02/2021 4:48 AM EST [facility] MPV 11.1 8.8 - 12.5 fL LAB HEMATOLOGY METHOD 05/02/2021 4:48 AM EST [facility] nRBC 0.0 <=0.0 per 100 WBCs LAB HEMATOLOGY METHOD 05/02/2021 4:48 AM EST [facility] Blood Venous blood specimen / Unknown Venipuncture / Unknown 05/02/2021 3:59 AM EST 05/02/2021 4:25 AM EST us Ava Joseph RN LAB BLOOD ORDERABLES Final Resul t Performing Organization Address City/State/[facility] Co de Phone Number [facility] [address] [place] [id number] * (ABNORMAL) POCT glucose meter (05/01/2021 9:11 PM EST) POCT Glucose 141(H) 74 - 99 mg/dL 05/01/2021 9:15 PM EST [facility] Comment:Accuracy of a glucos e result [...] Comment 05/01/2021 9:15 PM EST [facility] [employer] Builder [employer] Erector ID Kyra Lockwood 05/01/2021 9:15 PM EST [facility] Device ID [id number] 05/01/2021 9:15 PM EST [facility] Specimen Type POC Capillary 05/01/2021 9:15 PM EST [facility] Blood Capillary blood specimen / Unknown 05/01/2021 9:11 PM EST 05/01/2021 9:15 PM EST us Ji Matos MD LAB POINT OF CARE TE ST DOCKED DEVICE UNSOLICITED RESULTS Final Result Performing Organization Address City/State/[facility] Co de Phone Number [facility] [address] [place] [address] * XR Femur Left 2+ Views (05/01/2021 [...] LEFT 2+ VIEWS ordered by JI MATOS [id number] CLINICAL INDICATION: post op TECHNIQUE: XR FEMUR [...] FEMUR LEFT 2+ VIEWS ordered by JI [id number] CLINICAL INDICATION: post op TECHNIQUE: XR FEMUR [...] 99 mg/dL 05/01/2021 3:55 PM EST [facility] Comment:Accuracy of a glucos e result [...] for testing. Comment 05/01/2021 3:55 PM EST [facility] [employer]re[employer] ID Tresa Jones 021 3:55 PM EST [facility] Device ID [id number] 05/01/2021 3:55 PM EST [facility] Specimen Type POC Capillary 05/01/2021 3:55 PM EST [facility] Blood Capillary blood specimen / Unknown 05/01/2021 3:53 PM EST 05/01/2021 3:55 PM EST Ji Matos MD LAB POINT OF CARE TE ST DOCKED DEVICE UNSOLICITED RESULTS Final Result Performing Organization Address City/[facility]/ZIP Co de Phone Number [facility] [address] [place] [address] * [place] Less than 1 Hour Intraoperative (05/01/2021 3:26 PM EST) Narrative IMAGING - 05/01/2021 3:26 PM EST Images were obtained for surgical purposes. ??See Bebeto Flynn's surgical note in the the patient's chart for the findings. Bebeto Flynn MD IMG FLUOROSCOPY PROCEDURES Porsche l Result IMAGING * Hemoglobin A1c (05/01/2021 2:21 AM EST) Hemoglobin A1c 5.5 <5.7 % 05/01/2021 12:36 PM EST [facility] Blood Venous blood specimen / Unknown Venipuncture / Unknown 05/01/2021 2:21 AM EST 05/01/2021 2:26 AM EST Narrative [facility] - 05/01/2021 12:36 PM EST HA1C Interpretive Data: Diagnosis of Diabetes: Diabetic > or = 6.5% Pre-diabetic 5.7 to 6.4% Non-diabetic < or = 5.6% Glycemic Targets for Type I and Type II Diabetics: Non- Adults <7.0% Adults <6.0% Children and Adolescents <7.5% Source: ??[place] [employer]. Standards of medical care in diabetes,2017. Diabetes Care.2017:40 (suppl 1):S1-S135. HbA1c assay performed by an ion-exchange chromatography method that is certified traceable to the DCCT. Ji Matos MD LAB BLOOD ORDERABLES Final Re sult [facility] [address] [place] [address] * Protime-INR (05/01/2021 2:21 AM EST) Prothrombin Time 13.0 12.0 - 14.3 sec LAB COAGULATION METHOD 05/01/2021 2:59 AM EST [facility] INR 1.0 0.9 - 1.1 LAB COAGULATION METHOD 05/01/2021 2:59 AM EST [facility] Blood Venous blood specimen / Unknown Venipuncture / Unknown 05/01/2021 2:21 AM EST 05/01/2021 2:26 AM EST Narrative [facility] - 05/01/2021 2:59 AM EST OPTIMAL INR RANGES FOR PATIENT ON ORAL ANTICOAGULANT THERAPY Prevention of venous thromboembolism ?INR 2.0 to 3.0 In patients with heart disease: Atrial fibrillation ?INR 2.0 to 3.0 Valvular heart disease ? INR 2.0 to 3.0 Tissue heart valves ?INR 2.0 to 3.0 Mechanical prosthetic valves ? INR 2.5 to 3.5 Prevention of recurrent LA ? INR 2.5 to 3.5 Ji Matos MD LAB BLOOD ORDERABLES Final Re sult Performing Organization Address [facility] de Phone Number [facility] [address] [place] [address] * Phosphorus (05/01/2021 2:21 AM EST) Phosphorus, Plasma 3.8 2.5 - 4.5 mg/dL 05/01/2021 2:56 AM EST [facility] Blood Venous blood specimen / Unknown Venipuncture / Unknown 05/01/2021 2:21 AM EST 05/01/2021 2:27 AM EST Ji Matos MD LAB BLOOD ORDERABLES Final Re sult Performing Organization Address [facility] Phone Number [facility] [address] [place] [address] * (ABNORMAL) Magnesium (05/01/2021 2:21 AM EST) Magnesium, Plasma 1.8(L) 1.9 - 2.4 mg/dL 05/01/2021 2:56 AM EST [facility] Blood Venous blood specimen / Unknown Venipuncture / Unknown 05/01/2021 2:21 AM EST 05/01/2021 2:27 AM EST Ji Matos MD LAB BLOOD ORDERABLES Final Re sult Performing Organization Address [facility] de Phone Number [facility] [address] [place] [address] * (ABNORMAL) CBC (05/01/2021 2:21 AM EST) WBC Count 10.61(H) 3.70 - 10.30 10*3/uL LAB HEMATOLOGY METHOD 05/01/2021 2:34 AM EST [facility] RBC Count 4.03 3.90 - 5.20 10*6/uL LAB HEMATOLOGY METHOD 05/01/2021 2:34 AM EST [facility] HGB 12.1 11.2 - 15.7 g/dL LAB HEMATOLOGY METHOD 05/01/2021 2:34 AM EST [facility] HCT 37.9 34.0 - 45.0 % LAB HEMATOLOGY METHOD 05/01/2021 2:34 AM EST [facility] Platelet Count 289 155 - 369 10*3/uL LAB HEMATOLOGY METHOD 05/01/2021 2:34 AM EST [facility] MCV 94 79 - 98 fL LAB HEMATOLOGY METHOD 05/01/2021 2:34 AM EST [facility] MCH 30.0 26.0 - 32.0 pg LAB HEMATOLOGY METHOD 05/01/2021 2:34 AM EST [facility] MCHC 31.9 30.7 - 35.5 g/dL LAB HEMATOLOGY METHOD 05/01/2021 2:34 AM EST [facility] RDW 13.6 11.5 - 14.5 % LAB HEMATOLOGY METHOD 05/01/2021 2:34 AM EST [facility] MPV 10.3 8.8 - 12.5 fL LAB HEMATOLOGY METHOD 05/01/2021 2:34 AM EST [facility] nRBC 0.0 <=0.0 per 100 WBCs LAB HEMATOLOGY METHOD 05/01/2021 2:34 AM EST [facility] Blood Venous blood specimen / Unknown Venipuncture / Unknown 05/01/2021 2:21 AM EST 05/01/2021 2:26 AM EST us Ji Matos MD LAB BLOOD ORDERABLES Final Re sult [facility] [address] [place] [address] * (ABNORMAL) Basic Metabolic Panel (05/01/2021 2:21 AM EST) [facility] Glucose, Plasma 137(H) 74 - 99 mg/dL 05/01/2021 2:56 AM EST [facility] BUN, Plasma 20 7 - 21 mg/dL 05/01/2021 2:56 AM EST [facility] Creatinine, Plasma 0.85 0.60 - 1.10 mg/dL 05/01/2021 2:56 AM EST [facility] BUN/Creatinine Ratio 24 05/01/2021 2:56 AM EST [facility] Sodium, Plasma 140 136 - 145 mmol/L 05/01/2021 2:56 AM EST [facility] Potassium, Plasma 4.3 3.7 - 4.8 mmol/L 05/01/2021 2:56 AM EST [facility] Chloride, Plasma 105 97 - 107 mmol/L 05/01/2021 2:56 AM EST [facility] CO2, Plasma 23 22 - 29 mmol/L 05/01/2021 2:56 AM EST [facility] Anion Gap 12 6 - 16 mmol/L 05/01/2021 2:56 AM EST [facility] Total Calcium, Plasma 8.7(L) 8.9 - 10.2 mg/dL 05/01/2021 2:56 AM EST [facility] eGFR >60 >60 mL/min/1.7 3m*2 05/01/2021 2:56 AM EST [facility] Comment:eGFR = estimated GFR ; eGFR [...] >60 mL/min/1.7 3m*2 05/01/2021 2:56 AM EST [facility] Comment:eGFR = estimated GFR ; eGFR [...] Final Re sult [facility] [address] [place] [address] * (ABNORMAL) POCT glucose meter (04/30/2021 11:44 PM EST) Pathologist [facility] POCT Glucose 143(H) 74 - 99 mg/dL [...] Comment 04/30/2021 11:50 PM EST [facility] Tank Builder And Erector ID Cassie [place] 04/30/2021 11:50 PM EST [facility] Device ID [id number] 04/30/2021 11:50 PM EST [facility] Specimen Type POC Capillary 04/30/2021 11:50 PM EST [facility] Blood Capillary blood specimen / Unknown 04/30/2021 11:44 PM EST 04/30/2021 11:50 PM EST Ji Matos MD LAB POINT OF CARE TE ST DOCKED DEVICE UNSOLICITED RESULTS Final Result [facility] [address] [place] [address] * Lactate, venous (04/30/2021 8:26 PM EST) Pathologist [facility] Lactate, Venous, Whole Blood 0.9 0.5 - 2.2 mmol/L LAB HEMATOLOGY METHOD 04/30/2021 8:32 PM EST [facility] Blood Venous blood specimen / Unknown Venipuncture / Unknown 04/30/2021 8:26 PM EST 04/30/2021 8:30 PM EST Clay Oviedo MD LAB BLOOD ORDERABLES Final Resul t [facility] [address] [place] [address] * CT Head wo IV Contrast (04/30/2021 [...] error, please notify the sender immediately at [phone] and permanently delete the original report and destroy any copies or printouts. Narrative 04/30/2021 5:12 PM EST [facility] ? - Phone [facility] NAME: Ambika Pierre ?? DATE OF EXAM: 04/30/2021 Patient No: ??[id number] Physician: ??Carlo^Ji Date of : ??1965 Past [...] Soft Tissues: Mild left parietal scalp contusion. ??[place] lens replacements. Skull: There are no calvarial destructive lesions or fractures. Sinuses and Mastoids: No significant paranasal sinus disease. ??Minimal mucosal thickening in the left sphenoid sinus. ??The mastoid air cells are clear. Procedure Note Wes Biswas MD - 04/30/2021 [facility] - Phone [facility] NAME: Abmika Pierre DATE OF EXAM: 04/30/2021 Patient No: [id number] Physician: Palmer Date of : 1965 Past [...] Soft Tissues: Mild left parietal scalp contusion. [place] lensreplacements. Skull: There are no calvarial destructive [...] in error, pleasenotify the sender immediately at [phone] and permanently delete theoriginal report and destroy [...] WO IV CONTRAST ordered by CLAY OVIEDO [id number] CLINICAL INDICATION: Fracture, knee TECHNIQUE: ?? Multiple [...] LEFT WO IV CONTRAST ordered by CLAY OVIEDO,[id number] CLINICAL INDICATION: Fracture, knee TECHNIQUE: Multiple axial [...] Comment 04/30/2021 4:20 PM EST [facility] Tank Builder And Erector ID Enoch Baptiste 04/30/2021 4:20 PM EST [facility] Device ID [id number] 04/30/2021 4:20 PM EST [facility] Specimen Type POC Capillary 04/30/2021 4:20 PM EST [facility] Blood Capillary blood specimen / Unknown 04/30/2021 4:15 PM EST 04/30/2021 4:20 PM EST Ji Matos MD LAB POINT OF CARE TE ST DOCKED DEVICE UNSOLICITED RESULTS Final Result Performing Organization Address City/[facility]/ZIP Co de Phone Number [facility] [address] [place] [address] * (ABNORMAL) Lactate, venous (04/30/2021 3:36 PM EST) Pathologist [facility] Lactate, Venous, Whole Blood 2.7(H) 0.5 - 2.2 mmol/L LAB HEMATOLOGY METHOD 04/30/2021 3:42 PM EST [facility] Blood Venous blood specimen / Unknown Venipuncture / Unknown 04/30/2021 3:36 PM EST 04/30/2021 3:41 PM EST Clay Oviedo MD LAB BLOOD ORDERABLES Final Resul t [facility] [address] [place] [address] * XR Pelvis 1 or 2 Views (04/30/2021 3:29 PM EST) Anatomical Region Laterality Modality Body, Pelvis Digital Radiogra phy Impressions 04/30/2021 3:39 PM EST No acute osseous findings CRITICAL RESULT: ?? No. COMMUNICATION: Per this written report. Signed by Rosanna Deng on ??04/30/2021 3:39 PM Narrative 04/30/2021 3:39 PM EST Exam/Procedure: XR PELVIS 1 OR 2 VIEWS ordered by CLAY OVIEDO, [id number] CLINICAL INDICATION: femur fracture, needs AP pelvis TECHNIQUE: XR PELVIS 1 OR 2 VIEWS COMPARISON: None. FINDINGS: No acute fracture or malalignment. Procedure Note Rosanna Deng MD - 04/30/2021 Exam/Procedure: XR PELVIS 1 OR 2 VIEWS ordered by CLAY OVIEDO, [id number] CLINICAL INDICATION: femur fracture, needs AP pelvis [...] 3:23 PM EST 04/30/2021 5:48 PM EST [facility] - 04/30/2021 8:41 PM [...] recommendations. This test was performed using the [employer] m SARS CoV-2 assay, a PCR-based [...] MICROBIOLOGY - GENERAL ORD ERABLES Final Result [facility] [address] [place] [address] * XR Chest 1 View (04/30/2021 2:59 PM EST) Anatomical Region Laterality Modality Chest Digital Radiogra phy Impressions 04/30/2021 3:01 PM EST No acute findings CRITICAL RESULT: ?? No. COMMUNICATION: Per this written report. Signed by Rosanna Deng on ??04/30/2021 3:01 PM Narrative 04/30/2021 3:01 PM EST Exam/Procedure: XR CHEST 1 VIEW ordered by SAMSON BUSTAMANTE, [id number] CLINICAL INDICATION: preop TECHNIQUE: XR CHEST 1 VIEW COMPARISON: None. FINDINGS: Lungs are clear without evidence of focal consolidation or parenchymal opacities. No evidence of a pleural effusion or pneumothorax. Cardiac and mediastinal silhouette are within normal limits. No acute osseous abnormalities. Procedure Note Rosanna Deng MD - 04/30/2021 Exam/Procedure: XR CHEST 1 VIEW ordered by SAMSON BUSTAMANTE, [id number] CLINICAL INDICATION: preop TECHNIQUE: XR CHEST 1 [...] TEST ORDERABLES Final Result [facility] B[facility] [address] [place] [address], * (ABNORMAL) CBC w/diff (04/30/2021 2:20 PM EST) WBC Count 14.68(H) 3.70 - 10.30 10*3/uL LAB HEMATOLOGY METHOD 04/30/2021 2:31 PM EST [facility] RBC Count 4.33 3.90 - 5.20 10*6/uL LAB HEMATOLOGY METHOD 04/30/2021 2:31 PM EST [facility] HGB 13.5 11.2 - 15.7 g/dL LAB HEMATOLOGY METHOD 04/30/2021 2:31 PM EST [facility] HCT 40.3 34.0 - 45.0 % LAB HEMATOLOGY METHOD 04/30/2021 2:31 PM EST [facility] Platelet Count 326 155 - 369 10*3/uL LAB HEMATOLOGY METHOD 04/30/2021 2:31 PM EST [facility] MCV 93 79 - 98 fL LAB HEMATOLOGY METHOD 04/30/2021 2:31 PM EST [facility] MCH 31.2 26.0 - 32.0 pg LAB HEMATOLOGY METHOD 04/30/2021 2:31 PM EST [facility] MCHC 33.5 30.7 - 35.5 g/dL LAB HEMATOLOGY METHOD 04/30/2021 2:31 PM EST [facility] RDW 13.5 11.5 - 14.5 % LAB HEMATOLOGY METHOD 04/30/2021 2:31 PM EST [facility] MPV 10.7 8.8 - 12.5 fL LAB HEMATOLOGY METHOD 04/30/2021 2:31 PM EST [facility] nRBC 0.0 <=0.0 per 100 WBCs LAB HEMATOLOGY METHOD 04/30/2021 2:31 PM EST [facility] Differential Type Automated LAB HEMATOLOGY METHOD 04/30/2021 2:31 PM EST [facility] Neutrophils % 78.0 % LAB HEMATOLOGY METHOD 04/30/2021 2:31 PM EST [facility] Lymphocytes % 16.0 % LAB HEMATOLOGY METHOD 04/30/2021 2:31 PM EST [facility] Monocytes % 6.0 % LAB HEMATOLOGY METHOD 04/30/2021 2:31 PM EST [facility] Eosinophils % 0.0 % LAB HEMATOLOGY METHOD 04/30/2021 2:31 PM EST [facility] Basophils % 0.0 % LAB HEMATOLOGY METHOD 04/30/2021 2:31 PM EST [facility] Immature Granulocytes % 0.0 % LAB HEMATOLOGY METHOD 04/30/2021 2:31 PM EST [facility] Neutrophils Absolute 11.34(H) 1.60 - 6.10 10*3/uL LAB HEMATOLOGY METHOD 04/30/2021 2:31 PM EST [facility] Lymphocytes Absolute 2.28 1.20 - 3.90 10*3/uL LAB HEMATOLOGY METHOD 04/30/2021 2:31 PM EST [facility] Monocytes Absolute 0.91(H) 0.30 - 0.90 10*3/uL LAB HEMATOLOGY METHOD 04/30/2021 2:31 PM EST [facility] Eosinophils Absolute 0.03 0.00 - 0.50 10*3/uL LAB HEMATOLOGY METHOD 04/30/2021 2:31 PM EST [facility] Basophils Absolute 0.06 0.00 - 0.10 10*3/uL LAB HEMATOLOGY METHOD 04/30/2021 2:31 PM EST [facility] Immature Granulocytes Absolute 0.06 0.00 - 0.06 10*3/uL LAB HEMATOLOGY METHOD 04/30/2021 2:31 PM EST [facility] Blood Venous blood specimen / Unknown Venipuncture / Unknown 04/30/2021 2:20 PM EST 04/30/2021 2:25 PM EST [facility] - 04/30/2021 2:31 PM EST Therapeutic decision making should be based on absolute values, rather than percentages. us Samson Bustamante MD LAB BLOOD ORDERABLES Final Res ult [facility] [address] [place] [address] * (ABNORMAL) CMP (04/30/2021 2:19 PM EST) Glucose, Plasma 142(H) 74 - 99 mg/dL 04/30/2021 2:54 PM EST [facility] BUN, Plasma 23(H) 7 - 21 mg/dL 04/30/2021 2:54 PM EST [facility] Creatinine, Plasma 0.87 0.60 - 1.10 mg/dL 04/30/2021 2:54 PM EST [facility] BUN/Creatinine Ratio 26 04/30/2021 2:54 PM EST [facility] Sodium, Plasma 142 136 - 145 mmol/L 04/30/2021 2:54 PM EST [facility] Potassium, Plasma 4.2 3.7 - 4.8 mmol/L 04/30/2021 2:54 PM EST [facility] Chloride, Plasma 108(H) 97 - 107 mmol/L 04/30/2021 2:54 PM EST [facility] CO2, Plasma 19(L) 22 - 29 mmol/L 04/30/2021 2:54 PM EST [facility] Anion Gap 15 6 - 16 mmol/L 04/30/2021 2:54 PM EST [facility] Total Calcium, Plasma 9.1 8.9 - 10.2 mg/dL 04/30/2021 2:54 PM EST [facility] Total Protein 7.0 6.3 - 7.9 g/dL 04/30/2021 2:54 PM EST [facility] Albumin, Plasma 4.1 3.5 - 5.2 g/dL 04/30/2021 2:54 PM EST [facility] AST, Plasma 162(H) 11 - 32 U/L 04/30/2021 2:54 PM EST [facility] ALT, Plasma 73(H) 8 - 33 U/L 04/30/2021 2:54 PM EST [facility] Alkaline Phosphatase, Plasma 138 46 - 142 U/L 04/30/2021 2:54 PM EST [facility] Total Bilirubin, Plasma 0.6 0.2 - 1.1 mg/dL 04/30/2021 2:54 PM EST [facility] eGFR >60 >60 mL/min/1.7 3m*2 04/30/2021 [...] ORDERABLES Final Res ult Performing Organization Address City/State/[facility] Co de Phone Number [facility]ARE [facility] [address] [place], [place] [id number] * PT-INR (04/30/2021 2:19 PM EST) Prothrombin Time 12.4 12.0 - 14.3 sec LAB COAGULATION METHOD 04/30/2021 2:57 PM EST [facility] INR 1.0 0.9 - 1.1 LAB COAGULATION METHOD 04/30/2021 2:57 PM EST [facility] Blood Venous blood specimen / Unknown Venipuncture / Unknown 04/30/2021 2:19 PM EST 04/30/2021 2:25 PM EST Narrative [facility] - 04/30/2021 2:57 PM EST OPTIMAL INR RANGES FOR PATIENT ON ORAL ANTICOAGULANT THERAPY Prevention of venous thromboembolism ?INR 2.0 to 3.0 In patients with heart disease: Atrial fibrillation ?INR 2.0 to 3.0 Valvular heart disease ? INR 2.0 to 3.0 Tissue heart valves ?INR 2.0 to 3.0 Mechanical prosthetic valves ? INR 2.5 to 3.5 Prevention of recurrent LA ? INR 2.5 to 3.5 us Samson Bustamante MD LAB BLOOD ORDERABLES Final Res ult Performing Organization Address [facility] de Phone Number [facility] [address] [place] [address] * EKG now - STAT (adult) (04/30/2021 2:08 PM EST) EKG DIAGNOSIS CLASS Normal MUSE ECG Ventricular Rate 87 BPM MUSE ECG Atrial Rate 87 BPM MUSE ECG OR Interval 120 ms MUSE ECG QRSD Interval 76 ms MUSE ECG QT Interval 374 ms MUSE ECG QTC Interval 450 ms MUSE ECG P [place] 48 degrees MUSE ECG R [place] 40 degrees MUSE ECG T Wave [place] 74 degrees MUSE ECG Diagnosis Poor data quality MUSE ECG Diagnosis Confirmed by Garcia Leonard ([id number]) on 05/01/2021 11:23:11 AM MUSE ECG 04/30/2021 2:08 PM EST 05/01/2021 11:23 AM EST us Samson Bustamante MD ECG ORDERABLES Final Result Performing Organization Address [facility] de Phone Number MUSE ECG [...] LEFT 2+ VIEWS ordered by SAMSON BUSTAMANTE [id number] CLINICAL INDICATION: fall, pain TECHNIQUE: XR TIBIA [...] FIBULA LEFT 2+ VIEWS ordered by SAMSON [id number] CLINICAL INDICATION: fall, pain TECHNIQUE: XR TIBIA [...] LEFT 2+ VIEWS ordered by SAMSON BUSTAMANTE, [id number] CLINICAL INDICATION: fall, pain TECHNIQUE: XR TIBIA [...] FIBULA LEFT 2+ VIEWS ordered by SAMSON BUSTAMANTE,[id number] CLINICAL INDICATION: fall, pain TECHNIQUE: XR TIBIA [...] LEFT 2+ VIEWS ordered by SAMSON BUSTAMANTE, [id number] CLINICAL INDICATION: fall, pain TECHNIQUE: XR TIBIA [...] FIBULA LEFT 2+ VIEWS ordered by SAMSON BUSTAMANTE,[id number] CLINICAL INDICATION: fall, pain TECHNIQUE: XR TIBIA [...] LEFT 2+ VIEWS ordered by SAMSON BUSTAMANTE, [id number] CLINICAL INDICATION: fall, pain TECHNIQUE: XR TIBIA [...] FIBULA LEFT 2+ VIEWS ordered by SAMSON BUSTAMANTE,[id number] CLINICAL INDICATION: fall, pain TECHNIQUE: XR TIBIA [...] left femur, unspecified fracture morphology, initial encounter ([facility]) Closed fracture of left distal femur ([facility]) Fall Unspecified fall Diabetes ([facility]) Type II or unspecified type diabetes mellitus [...] 9:45 AM EST 1 tablet nystatin (Mycostatin) 987522 UNIT/GM powder 1 application Topical, 2 times [...] Retimed for levofloxacin administration)2013 (Given - Provider: eRny Padron RN) 2099 (Given - Provider: Jennifer Bernard RN) nystatin (Mycostatin) [id number] UNIT/GM powder 1 application Topical, 2 times [...] care documented in this encounter Care Teams El Teacher Relationship Specialty Start Date End Date Salima Gonzáles DO [address] [place] [address] Dr [place] [address] PCP - General 09/17/20 documented as of this encounter
--- OUTSIDE RECORDS SUMMARY | 2024-04-10 14:15 | XMS_ITS | Encounter Summary ---
Author Organization Healthcare Address [address] [place] [address] Care Team Providers Care Commercial Parts Professional Name Role Phone EliecerSalima Primary Care Provider [phone] Encounter Details Date Type Department Care Team (Latest Contact Info) Description 08/23/2021 1:38 PM EDT - 08/23/2021 11:59 PM EDT Hospital Encounter Medical Office Building Radiology [facility] [place] [address] Closed fracture of distal end [...] LEFT 2+ VIEWS ordered by NEELA FLYNN, [id number] CLINICAL INDICATION: Left hand pain. TECHNIQUE: XR FEMUR LEFT 2+ VIEWS COMPARISON: Left femur radiographs dated 06/07/2021. FINDINGS: Retrograde left femoral nail. Left total knee prosthesis. Healed distal femur fracture. No soft tissue swelling or joint effusion. Procedure Note Oleg Stewart MD - 08/23/2021 Exam/Procedure: XR FEMUR LEFT 2+ VIEWS ordered by NEELA FLYNN, [id number] CLINICAL INDICATION: Left hand pain. TECHNIQUE: XR [...] Oleg Stewart on 08/23/2021 10:36 PM Neela Flnyn MD IMG XR PROCEDURES Final Result documented in this encounter Visit Diagnoses Diagnosis Closed fracture of distal end of left femur with routine healing, unspecified fracture morphology, subsequent encounter documented in this encounter Additional Health Concerns Assessment Noted Time A fall risk assessment has been complete d for the patient 08/23/2021 2:23 PM EDT documented as of this encounter Care Teams Commercial Parts Professional Relationship Specialty Start Date End Date Salima Gonzáles DO [address] [place], [place] [address] [place], [place] [id number] PCP - General 09/17/20 documented as of this encounter
--- OUTSIDE RECORDS SUMMARY | 2024-04-10 14:15 | XMS_ITS | Encounter Summary ---
Author Organization Healthcare Address [address] [place], [place] [id number] Care Team Providers Care Rotary Saw Operator Name Role Phone Salima Gonzáles Primary Care Provider [phone] Reason for Visit * Reason Comments Follow-up Encounter Details Date Type Department Care Team ([facility] st Contact Info) Description 08/23/2021 2:40 PM EDT Office Visit Medical Office Building [facility] [address], [address] [place] [address] Bebeto Flynn MD [address] [place] [address] Closed fracture of distal end [...] documented as of this encounter Care Teams Rotary Saw Operator Relationship Specialty Start Date End Date Salima Gonzáles DO [address] [place], [place] [address] PCP - General 09/17/20 documented as of this encounter
--- OUTSIDE RECORDS SUMMARY | 2024-04-10 14:15 | XMS_ITS | Encounter Summary ---
Author Organization Healthcare Address [address] [place] [address] Care Team Providers Care Turbine Inspector Name Role Phone Salima Gonzáles DO Primary Care Provider [phone] Encounter Details Date Type Department Care Team (Late st Contact Info) Description 02/27/2023 Telephone [facility] Radiology [address] [place] [address] Sophie Prince RN [facility] Social History [...] documented as of this encounter Care Teams Turbine Inspector Relationship Specialty Start Date End Date Salima Gonzáles DO [address] [place] [address] PCP - General 09/17/20 documented as of this encounter
--- OUTSIDE RECORDS SUMMARY | 2024-04-10 14:15 | XMS_ITS | Encounter Summary ---
Author Organization Healthcare Address [address] [place] [address] Care Team Providers Care University Administrative Assistant Name Role Phone AnujSalima somers Primary Care Provider [phone] Encounter Details Date Type Department Care Team (Latest Contact Info) Description 06/07/2021 10:10 AM EST - 06/07/2021 11:59 PM EST Hospital Encounter Medical Office Building Radiology [address] [place] [address] Displaced intertrochanteric fracture of left femur, init ([facility]) Discharge Disposition: Home or Self Care Social [...] Displaced intertrochanteric fracture of left femur, init ([facility]) documented in this encounter Results * XR [...] LEFT 2+ VIEWS ordered by NEELA FLYNN [id number] CLINICAL INDICATION: Pain TECHNIQUE: XR FEMUR LEFT [...] LEFT 2+ VIEWS ordered by NEELA FLYNN [id number] CLINICAL INDICATION: Pain TECHNIQUE: XR FEMUR LEFT [...] Displaced intertrochanteric fracture of left femur, init ([facility]) documented in this encounter Additional Health Concerns Assessment Noted Time A fall risk assessment has been complete d for the patient 06/07/2021 10:34 AM EST documented as of this encounter Care Teams University Administrative Assistant Relationship Specialty Start Date End Date Salima Gonzáles DO [address] [place] [address] PCP - General 09/17/20 documented as of this encounter
--- OUTSIDE RECORDS SUMMARY | 2024-04-10 14:15 | XMS_ITS | Encounter Summary ---
Author Organization Healthcare Address [address] [place] [address] Care Team Providers Care Core Loader Name Role Phone Salima Gonzáles DO Primary Care Provider [phone] Encounter Details Date Type Department Care Team [...] as of this encounter Care Teams Core Loader Relationship Specialty Start Date End Date Salima Gonzáles DO [address] [place] [address] PCP - General 09/17/20 documented as of this encounter
--- OUTSIDE RECORDS SUMMARY | 2024-04-10 14:15 | XMS_ITS | Encounter Summary ---
Author Organization Healthcare Address [address] [place] [id number] Care Team Providers Care Outside Upholsterer Name Role Phone Salima Gonzáles DO Primary [...] documented as of this encounter Care Teams Outside Upholsterer Relationship Specialty Start Date End Date Salima Gonzáles DO [address] [place] [address] PCP - General 09/17/20 documented as of this encounter
--- OUTSIDE RECORDS SUMMARY | 2024-04-10 14:16 | XMS_ITS ---
Care Plan - [facility], [facility] Created on: April 10, 2024 Neetu Murillo : 1965 Sex: Female Author Organization [facility] , [facility] Address [address] [place] [address] Phone Care Team Providers Care Checker Cashier Name Role Phone Isiah Sheridan DPM Unavailable [phone] Salima Gonzáles DO Primary Care Provider [phone]
--- OUTSIDE RECORDS SUMMARY | 2024-04-10 14:16 | XMS_ITS | Data Portability ---
Author Organization [place] [facility] [place] [facility] ADMIN Address [address] [place] [id number] Assessment Encounter Date Assessment Date Assessment LastModified by Organization Details LastModified Time 02/21/2022 02/21/2022 Patient doing very well. We will follow on a p.r.n. basis. [email or web address] Not available 02/21/2022 10:55:03 07/26/2022 07/26/2022 CT scan results discussed with patient. Lesion in question is a simple cyst will be followed with a repeat renal ultrasound in 1 year. Will schedule office cystoscopy and pelvic exam to address other issues. [email or web address] Not available 07/30/2022 21:31:13 02/19/2023 02/19/2023 will forego cystoscopy today. Will schedule abdominal pelvic CT scan without and with IV and oral contrast. Will refer patient expediently to Gastroenterology[facility]. [email or web address] Not available 02/19/2023 15:09:25 03/27/2023 03/27/2023 57-year-old [...] CT. Will obtain prior endoscopy records from [facility]. Will repeat colonoscopy due to worsening symptoms. 3) dysphagia: EGD scheduled. Continue protonix. She has a history of gastric bypass. [email or web address] Not available 03/27/2023 09:18:45 Plan of Treatment Reminders Order Date Submit Date Provider Last Modified By Organization Details Last Modified Time Details Appointments None recorded. Lab bun (blood urea nitrogen) , serum or plasma [address] [facility], [address] [place] [address], [address], [address], 3 15:05:53 creatinin e, serum or plasma [address] [facility], [address] [place] [address], [address] [place] [address], [address], 3 15:05:53 urinalysi s, dipstick [address] [facility], [address] [place] [address], [address], [address], 3 12:11:55 culture, urine [address] [facility], [address] [place] [address], Suite [facility], [place], [address], 3 09:01:00 urinalysi s, dipstick [address] [facility], [address] [place] [address], [address] [place] [address], [address], 3 14:26:50 renal function panel, serum [address] (Registration ), [address] [facility], [place], [address], 3 16:55:57 Referral None recorded. Procedures None recorded. Surgeries None recorded. Imaging CT, abdomen, w/wo contrast 2022 023 ATHENAFAX [facility] (Centralized Scheduling), [address] , [place], [address], 3 13:59:09 CT, abdomen + pelvis, w/wo contrast - Ct Scan abdomen and pelvis without and with IV and oral contrast 2022 023 [email or web address] [facility] (Centralized Scheduling), [address], [place], [address], 3 07:00:37 Medication Orders Macrobid 100 mg capsule [address] [facility], [address] [place] [address], [id number], 3 12:21:20 Patient TargetsNo targets recorded. Patient Instructions Encounter Date Encounter Id Patient Instructions Last Modified By Organization Details Last Modified Time 02/21/2022 [id number] Patient was instructed on wound care and not to remove the Steri-Strips for 10-12 days. If she has any problems she is to come to the office as soon as possible. Not available 02/21/2022 10:55:39 03/27/2023 [id number] Name: AMBIKA ROJAS Exam Date: 03/07/2023 : 1965 Age 57 Gender: F Physician: GIRISH RICKS Facility: [facility] Facility HSV: Outpatient Exam: CT ABD PEL [...] 56 Gender: F Physician: JANICE SHARMA Facility: [facility] Facility HSV: Outpatient Exam: CT ABD PEL [...] Bones: No acute fracture. IMPRESSION: Mild colitis. [email or web address] Not available 03/27/2023 09:11:23 Reason for Referral None Reported. Results Created Date Observation Date Name Description Value Unit Range Abnormal Flag Note LastModifiedBy Organization Detail LastModifiedTime 02/03/20 22 02/02/2022 CBC AUTO NO DIFF (HEMO GRAM) WBC 8.6 10 4.5-11 .5 Not Available [facility] (Lab Registration) [address] [place], [address], 03/03/2022 09:02:43 02/03/20 22 02/02/2022 CBC AUTO NO DIFF (HEMO GRAM) RBC 4.70 10 4.25-5 .57 Not Available [facility] (Lab Registration) [address] [place], [address], 03/03/2022 09:02:43 02/03/20 22 02/02/2022 CBC AUTO NO DIFF (HEMO GRAM) HGB 13.7 g/dL 12.0-1 5.7 Not Available [facility] (Lab Registration) [address] [place], [address], 03/03/2022 09:02:43 02/03/20 22 02/02/2022 CBC AUTO NO DIFF (HEMO GRAM) HCT 41.4 % 36.0-4 7.0 Not Available [facility] (Lab Registration) [address] [place], [address], 03/03/2022 09:02:43 02/03/20 22 02/02/2022 CBC AUTO NO DIFF (HEMO GRAM) MCV 88.1 fL 80-95 Not Available [facility] (Lab Registration) [address] [place], [address], 03/03/2022 09:02:43 02/03/20 22 02/02/2022 CBC AUTO NO DIFF (HEMO GRAM) MCH 29.1 pg 27.0-3 4.0 Not Available [facility] (Lab Registration) [address] [place], [address], 03/03/2022 09:02:43 02/03/20 22 02/02/2022 CBC AUTO NO DIFF (HEMO GRAM) MCHC 33.1 g/dL 32.0-3 6.0 Not Available [facility] (Lab Registration) [address] [place], [address], 03/03/2022 09:02:43 02/03/20 22 02/02/2022 CBC AUTO NO DIFF (HEMO GRAM) platelet count 345 10 150-45 0 Not Available [facility] (Lab Registration) [address] [place], [address], 03/03/2022 09:02:43 02/03/20 22 02/02/2022 CBC AUTO NO DIFF (HEMO GRAM) RDW 13.4 % 12.3-1 5.1 Not Available [facility] (Lab Registration) [address] [place], [address], 03/03/2022 09:02:43 02/03/20 22 02/02/2022 CBC AUTO NO DIFF (HEMO GRAM) MPV 9.7 fL 7.4-10 .4 Not Available [facility] (Lab Registration) [address] [place], [address], 03/03/2022 09:02:43 02/03/20 22 02/02/2022 CBC AUTO NO DIFF (HEMO GRAM) note Unles s other lyles noted testi ng perfo rmed at: [facility] [address] [place] [address] [phone] Rafa king MD CLIA: [id number] Not Available [facility] (Lab Registration) [address] , [place], [address], 03/03/2022 09:02:43 02/03/20 22 02/02/2022 PT (PROT HROMB IN TIME) W INR PT (prothrombin time) 9.5 secon ds 9.3-11 .4 Not Available [facility] (Lab Registration) [address] [place], [address], 03/03/2022 09:02:44 02/03/20 22 02/02/2022 PT (PROT [...] mecha nical heart valve s. Not Available [facility] (Lab Registration) [address] [place], [address], 03/03/2022 09:02:44 02/03/2002/02/2022 PT (PROT HROMB IN TIME) W INR note Unles s other lyles noted testi ng perfo rmed at: [facility] [address] [place] [address] [phone] Rafa king MD CLIA: [id number] Not Available [facility] (Lab Registration) [address] [place], [address], 03/03/2022 09:02:44 02/03/20 22 02/02/2022 PTT (PART IAL THROM B TIME) PTT (partial thromb time) 25.0 secon ds 24.5-3 2.8 Not Available [facility] (Lab Registration) [address] [place], [address], 03/03/2022 09:02:45 02/03/20 22 02/02/2022 PTT (PART IAL THROM B TIME) note Unles s other lyles noted testi ng perfo rmed at: [facility] [address] [place] [address] [phone] Rafa king MD CLIA: [id number] Not Available [facility] (Lab Registration) [address] [place], [address], 03/03/2022 09:02:45 02/03/20 22 02/02/2022 COMP METAB OLIC PANEL sodium 142 mmol/ L 136-14 5 Not Available [facility] (Lab Registration) [address] [place], [address], 03/03/2022 09:02:45 02/03/20 22 02/02/2022 COMP METAB OLIC PANEL potassium 4.0 mmol/ L 3.5-5. 1 Not Available [facility] (Lab Registration) [address] [place], [address], 03/03/2022 09:02:45 02/03/20 22 02/02/2022 COMP METAB OLIC PANEL chloride 105 mmol/ L 98-107 Not Available [facility] (Lab Registration) [address] [place], [address], 03/03/2022 09:02:45 02/03/20 22 02/02/2022 COMP METAB OLIC PANEL carbon dioxide 29 mmol/ L 21-32 Not Available [facility] (Lab Registration) [address] [place], [address], 03/03/2022 09:02:45 02/03/20 22 02/02/2022 COMP METAB OLIC PANEL anion gap 8.0 Not Available [facility] (Lab Registration) [address] [place], [address], 03/03/2022 09:02:45 02/03/20 22 02/02/2022 COMP METAB OLIC PANEL glucose 82 mg/dL 70-110 Not Available [facility] (Lab Registration) [address] [place], [address], 03/03/2022 09:02:45 02/03/20 22 02/02/2022 COMP METAB OLIC PANEL blood urea nitrogen 16 mg/dL 7-18 Not Available [facility] (Lab Registration) [address] [place], [address], 03/03/2022 09:02:45 02/03/20 22 02/02/2022 COMP METAB OLIC PANEL creatinine 1.1 mg/dL 0.6-1. 0 high Not Available [facility] (Lab Registration) [address] [place], [address], 03/03/2022 09:02:45 02/03/20 22 02/02/2022 COMP METAB OLIC PANEL BUN/creatini ne ratio 14.5 ratio 9-21 Not Available [facility] (Lab Registration) [address] [place], [address], 03/03/2022 09:02:45 02/03/20 22 02/02/2022 COMP METAB OLIC PANEL estimated glom filtration rate 54 mL/mi n >60- low Not Available [facility] (Lab Registration) [address] [place], [address], 03/03/2022 09:02:45 02/03/20 22 02/02/2022 COMP METAB OLIC PANEL total protein 7.8 g/dL 6.4-8. 2 Not Available [facility] (Lab Registration) [address] [place], [address], 03/03/2022 09:02:45 02/03/20 22 02/02/2022 COMP METAB OLIC PANEL albumin 3.8 g/dL 3.4-5. 0 Not Available [facility] (Lab Registration) [address] [place], [address], 03/03/2022 09:02:45 02/03/20 22 02/02/2022 COMP METAB OLIC PANEL calcium 9.7 mg/dL 8.5-10 .1 Not Available [facility] (Lab Registration) [address] [place], [address], 03/03/2022 09:02:45 02/03/20 22 02/02/2022 COMP METAB OLIC PANEL corrected calcium 9.9 mg/dL 8.5-10 .1 Not Available [facility] (Lab Registration) [address] [place], [address], 03/03/2022 09:02:45 02/03/20 22 02/02/2022 COMP METAB OLIC PANEL bilirubin total 0.6 mg/dL 0.4-1. 5 Not Available [facility] (Lab Registration) [address] [place], [address], 03/03/2022 09:02:45 02/03/20 22 02/02/2022 COMP METAB OLIC PANEL AST (SGOT) 17 U/L 15-37 Not Available [facility] (Lab Registration) [address] [place], [address], 03/03/2022 09:02:45 02/03/20 22 02/02/2022 COMP METAB OLIC PANEL ALT (SGPT) 27 U/L 12-78 Not Available [facility] (Lab Registration) [address] [place], [address], 03/03/2022 09:02:45 02/03/20 22 02/02/2022 COMP METAB OLIC PANEL alk phosphatase 90 U/L 50-120 Not Available [facility] (Lab Registration) [address] [place], [address], 03/03/2022 09:02:45 02/03/20 22 02/02/2022 COMP METAB OLIC PANEL note Unles s other lyles noted testi ng perfo rmed at: [facility] [address] [place] [address] [phone] Rafa king MD CLIA: [id number] Not Available [facility] (Lab Registration) [address] [facility], [place], [address], 03/03/2022 09:02:45 06/14/19 23 06/14/2022 BUN BUN 25 mg/dL 7-18 high Not Available [facility] ([facility]) [address] [facility], [place], [address], 06/14/2022 13:52:57 06/14/19 23 06/14/2022 CREAT ININE creatinine 0.9 mg/dL 0.6-1. 3 Not Available [facility] ([facility]) [address] [facility], [place], [address], 06/14/2022 13:52:59 06/14/19 23 06/14/2022 CREAT ININE glomerular filtration rate >60 mlper min 60- Not Available [facility] ([facility]) [address] [facility], [place], [address], 06/14/2022 13:52:59 06/14/19 23 06/14/2022 urina lysis , dipst ick Leukocytes (reference range) trace Not Available [facility] [address], [address], 06/14/2022 11:54:26 06/14/19 23 06/14/2022 urina lysis , dipst ick Nitrite (reference range:) negati ve Not Available [facility] [address] [facility] [address] [place] [address], [address], 06/14/2022 11:54:26 06/14/19 23 06/14/2022 urina lysis , dipst ick Urobilinogen (reference range) 0.2 Not Available [address], [place], [address], 06/14/2022 11:54:26 06/14/19 23 06/14/2022 urina lysis , dipst ick Protein (reference range) negati ve Not Available [address], [place], [address], 06/14/2022 11:54:26 06/14/19 23 06/14/2022 urina lysis , dipst ick pH (reference range 5-8.5) 6.0 Not Available [facility] [address] [address], [place], [address], 06/14/2022 11:54:26 06/14/19 23 06/14/2022 urina lysis , dipst ick Blood (reference range:) small Not Available [address] [address], [place], [address], 06/14/2022 11:54:26 06/14/19 23 06/14/2022 urina lysis , dipst ick Specific [place] (reference range) 1.025 Not Available [address], [address], 06/14/2022 11:54:26 06/14/19 23 06/14/2022 urina lysis , dipst ick Ketone (reference range) trace Not Available [address] [address], [place], [address], 06/14/2022 11:54:26 06/14/19 23 06/14/2022 urina lysis , dipst ick Bilirubin (reference range) negati ve Not Available [address] [place], [address], 06/14/2022 11:54:26 06/14/19 23 06/14/2022 urina lysis , dipst ick Glucose (reference range) negati ve Not Available [facility] [address] [place] [address] [address], [place], [address], 06/14/2022 11:54:26 06/14/19 23 06/14/2022 urina lysis , dipst ick Color (reference range: yellow-brown ) Yellow Not Available [address], [place], [address], 06/14/2022 11:54:26 07/27/19 23 07/26/2022 urina lysis , dipst ick Leukocytes (reference range) negati ve Not Available [address], [place], [address], 07/26/2022 14:21:32 07/27/19 23 07/26/2022 urina lysis , dipst ick Nitrite (reference range:) negati ve Not Available [address], [place], [address], 07/26/2022 14:21:32 07/27/19 23 07/26/2022 urina lysis , dipst ick Urobilinogen (reference range) 0.2 Not Available [address], [place], [address], 07/26/2022 14:21:32 07/27/19 23 07/26/2022 urina lysis , dipst ick Protein (reference range) negati ve Not Available [address], [place], [address], 07/26/2022 14:21:32 07/27/19 23 07/26/2022 urina lysis , dipst ick pH (reference range 5-8.5) 5.0 Not Available [facility] [address], [place], [address], 07/26/2022 14:21:32 07/27/19 23 07/26/2022 urina lysis , dipst ick Blood (reference range:) negati ve Not Available [facility] [address] [place] [address] [address], [place], [address], 07/26/2022 14:21:32 07/27/19 23 07/26/2022 urina lysis , dipst ick Specific [place] (reference range) 1.015 Not Available [facility] [address] [place] [address] [address], [place], [address], 07/26/2022 14:21:32 07/27/19 23 07/26/2022 urina lysis , dipst ick Ketone (reference range) negati ve Not Available [facility] [address] [place] [address] [address], [place], [address], 07/26/2022 14:21:32 07/27/19 23 07/26/2022 urina lysis , dipst ick Bilirubin (reference range) negati ve Not Available [facility] [address], [place], [address], 07/26/2022 14:21:32 07/27/19 23 07/26/2022 urina lysis , dipst ick Glucose (reference range) negati ve Not Available [facility] [address] [place] [address] [address], [place], [address], 07/26/2022 14:21:32 07/27/19 23 07/26/2022 urina lysis , dipst ick Color (reference range: yellow-brown ) Yellow Not Available [facility] [address] [place] [address] [address], [place], [address], 07/26/2022 14:21:32 02/20/2002/19/2023 RENAL FUNCT ION PANEL sodium 143 mmol/ L 136-14 5 Not Available [facility] ([facility]) [address] , [place], [address], 02/19/2023 16:15:57 02/20/20 23 02/19/2023 RENAL FUNCT ION PANEL potassium 4.1 mmol/ L 3.6-5. 0 Not Available [facility] ([facility]) [address] , [place], [address], 02/19/2023 16:15:57 02/20/2002/19/2023 RENAL FUNCT ION PANEL chloride 106 mmol/ L 98-107 Not Available [facility] ([facility]) [address] , [place], [address], 02/19/2023 16:15:57 02/20/20 23 02/19/2023 RENAL FUNCT ION PANEL carbon dioxide 27.3 mmol/ L 21.0-3 2.0 Not Available [facility] ([facility]) [address] , [place], [address], 02/19/2023 16:15:57 02/20/20 23 02/19/2023 RENAL FUNCT ION PANEL anion gap 13.8 Not Available [facility] ([facility]) [address] , [place], [address], 02/19/2023 16:15:57 02/20/20 23 02/19/2023 RENAL FUNCT ION PANEL glucose 87 mg/dL 70-120 Not Available [facility] ([facility]) [address] , [place], [address], 02/19/2023 16:15:57 02/20/20 23 02/19/2023 RENAL FUNCT ION PANEL BUN 19 mg/dL 7-18 high Not Available [facility] ([facility]) [address] , [place], [address], 02/19/2023 16:15:57 02/20/20 23 02/19/2023 RENAL FUNCT ION PANEL creatinine 0.8 mg/dL 0.6-1. 3 Not Available [facility] ([facility]) [address], [place], [address], 02/19/2023 16:15:57 02/20/20 23 02/19/2023 RENAL FUNCT ION PANEL albumin 3.7 g/dL 3.4-5. 0 Not Available [facility] ([facility]) [address], [place], [address], 02/19/2023 16:15:57 02/20/20 23 02/19/2023 RENAL FUNCT ION PANEL calcium 8.9 mg/dL 8.5-10 .5 Not Available [facility] ([facility]) [address], [place], [address], 02/19/2023 16:15:57 02/20/2002/19/2023 RENAL FUNCT ION PANEL phosphorus 3.7 mg/dL 2.5-4. 9 Not Available [facility] ([facility]) [address], [place], [address], 02/19/2023 16:15:57 03/03/20 22 02/02/2022 XR, chest , 2 [facility] [address] [place] [address] Phone: Fax: Name: SHARON PIERRE Exam Date: 022 : [birth year] Age 56 Gender : F Access ion: [id number] Physic jose: RYLIE BUCK ty: [facility] Facili ty HSV: Outpat ient Exam: CHEST [...] referr ing SHARON PIERRE to [facility] [place]. Legall y authen ticate d by POPE MEGAN Quinteros DO 02-02 17:06: 00 CC'ed Logic: Orderi ng Provid er: MILDRED YOUNGBLOOD CC Provid er: SHMUEL RODRÍGUEZ Attend ing Provid er: MILDRED YOUNGBLOOD Referr ing Provid er: MILDRED YOUNGBLOOD Admitt ing Provid er: MILDRED YOUNGBLOOD [email or web address] [facility] (Radiology) [address] [place] [address] , [place], [address], 03/06/2022 07:56:34 07/19/19 23 07/18/2022 CT ABD w/w/O [facility] [address] [place] [address] Phone: Fax: Name: SHARON PIERRE Exam Date: 023 : [birth year] Age 56 Gender : F Access ion: [id number] Physic jose: DEUCE FRITZ Facili ty: [facility] Facili ty HSV: Outpat ient Exam: CT [...] [facility] Leg[facility] y authen ticate d by POPE MEGAN Quinteros 0 07-18 17:28: 10 CC'ed Logic: Orderi ng Provid er: CATRINA Ybarra Attend ing Provid er: CATRINA Ybarra Admitt ing Provid er: CATRINA Ybarra [email or web address] [facility] [address] [facility], [place], [address], 07/19/2022 08:25:46 03/07/20 23 03/07/2023 CT ABD pel w/w/O [facility] [address] [place] [address] Phone: Fax: Name: SHARON PIERRE Exam Date: : [birth year] Age 57 Gender : F Access ion: [id number] Physic jose: LILLY Ybarra, RAY Facili ty: [facility] Facili ty HSV: Outpat ient Exam: CT [...] Thank you for referr SHARON Trevizo to [facility] al. Legall y authen ticate d by POPE MEGAN Quinteros 2022-05 16:17: 12 CC'ed Logic: Orderi ng Provid er: LILLY MARTINEZ Attend ing Provid er: LILLY MARTINEZ Referr ing Provid er: LILLY MARTINEZ Admitt ing Provid er: LILLY MARTINEZ [email or web address] [facility] [address] , [place], [address], 03/12/2023 13:14:30 Result Notes None recorded. Problems Name Problem SNOMED Code Status Onset Date Resolution Date Notes Provider Name and Address Organization Details Recorded Time Abdominal pain 08626484 Active 023 Kwabena Rubio PA-C [address] , [place], [address] , [place] [facility] [place] [facility] [place] 3 08:12:40 Diarrhea 92659223 Active 023 Kwabena Rubio PA-C [address] , [place], [address] , [place] [facility] [place] [facility] [place] 3 08:12:43 Colitis 30449387 Active 023 Kwabena Rubio PA-C [address] , [place], [address] , [place] [facility] [place] [facility] [place] 3 09:11:27 Dysphagia 52951982 Active 023 Kwabena Rubio PA-C [address], [place], [address] , [place] [facility] [place] [facility] [place] 3 09:11:34 Problem Notes None recorded. Procedures Surgical History Date Name Laterality Status Provider Name and Address Organization Details Recorded Time Cholecystectomy completed Crow Robert [facility] [place] [facility] [place] 01/25/2022 13:24:43 section completed Crow Robert [facility] [place] [facility] [place] 01/25/2022 13:25:11 lithotripsy completed Crow Robert LP [facility] - [place] [facility] [place] 01/25/2022 13:25:25 [facility] seb[facility] [place] 01/25/2022 13:26:00 [facility] [place] 01/25/2022 13:28:53 [facility] [place] 01/25/2022 13:29:05 Knee arthroscopy/surgery completed Crow Robert LPNOEMI [facility] [place] 01/25/2022 13:29:18 Gastric bypass for obesity [facility] [place] 01/25/2022 13:29:27 excision of intra-abdominal mass [facility] [place] 01/25/2022 13:30:03 Imaging Results Imaging Date Name Status LastModified by Organiz ation Details LastModified Time 02/02/2022 XR, chest, 2 view completed [email or web address] [facility] (Radiology) [address] [place] [address] [place], [address], 03/06/2022 07:56:34 07/18/2022 CT ABD w/w/O completed [email or web address] [facility] [address] [place] [address], [address], 07/19/2022 08:25:46 03/07/2023 CT ABD pel w/w/O completed [email or web address] [facility] [address] [place] [address], [address], 03/12/2023 13:14:30 Procedure Notes None recorded. Medical Equipment None Reported. Allergies Allergen ID Allergen Name Allergen Category Reaction Reaction Severity Criticality Documentation Date Start Date Code Code System Note Provider Name and Address Organization Details Recorded Time 72122 Medicinal product containin g cephalosp melissa and acting as antibacte rial agent (product) medicatio n Not available Not available Not available 01/25/2022 22595 9009 SNOMED Crow dickson JAMAL Jakob [facility] [place] 13:14:15 27696 Product containin g angiotens in-conver ting enzyme inhibitor (product) medicatio n Not available Not available Not available 01/25/2022 99571 009 SNOMED Crow dickson [facility] & [place] 2 13:14:06 84165 ciproflox acin medicatio n Not available Not available Not available 01/25/2022 2551 RxNorm Crow dickson [facility] & [place] 2 13:14:14 85204 honey bee venom medicatio n Not available Not available Not available 01/25/2022 52424 7 RxNorm Crow dickson [facility] & [place] 2 13:14:10 28629 fluoxetin e medicatio n Not available Not available Not available 01/25/2022 4493 RxNorm Crow dickson [facility] & [place] 2 12:46:20 67565 amlodipin e medicatio n Not available Not available Not available 01/25/2022 [id number] RxNorm JAMAL Bazzi [facility] & [place] 2 13:14:08 64054 morphine medicatio n Not available Not available Not available 01/25/2022 7052 RxNorm JAMAL Bazzi [facility] [place] 2 13:18:50 03619 Ceftin medicatio n Not available Not available Not available 01/31/2022 01425 6 RxNorm JAMAL Bazzi [facility] & [place] 2 13:15:16 Medications Name Sig Start Date [...] Flonase 50 mcg/actuatio n nasal spray,suspen alex [place] 1 spray twice a day by intranasal [...] Available N ot Available FreeStyle Niels 2 [place] USE DIRECTED active Not Available Not Available [...] Updated DateTime 06/14/2022 154.94 cm 47.6 kg/m2 369716.2 8 g 132 mm[Hg] 70 mm[Hg] Cassie Elliot [facility] [place] 3 11:57:31 Date Recorded Body height Body mass index (BMI) Body weight Heart rate Oxygen saturation Oxygen saturation in Arterial blood by Pulse oximetry Body temperature Systolic blood pressure Diastolic blood pressure Provider Name and Address Organization Details Last Updated DateTime 2 154.94 cm 47.4 kg/m2 208369. 68 g 83 /min 95 % 95 % 97.8 [degF] 110 mm[Hg] 76 mm[Hg] Crow Nelson [facility] [place] 2 10:34:58 Date Recorded Body height Body mass index (BMI) Body weight Body temperature Heart rate Heart rate Oxygen saturation Oxygen saturation in Arterial blood by Pulse oximetry Systolic blood pressure Diastolic blood pressure Provider Name and Address Organization Details Last Updated DateTime 3 154.94 cm 49.3 kg/m2 708303. 89 g 97.5 [degF] 91 /min 89 /min 98 % 98 % 151 mm[Hg] 105 mm[Hg] Janina Avery [facility] [place] 08:35:06 Social History Question Answer Notes LastModified by Organizat ion Details LastModified Time Tobacco Smoking Status Current Some Day Smoker Crow dickson, [facility] [place] 01/31/2022 12:53:29 What Is Your Level Of Alcohol Consumption? 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 0.5 PPD [email or web address] Information not available 01/25/2022 Do You Use Any Illicit Or Recreational Drugs? No [email or web address] Information not available 01/25/2022 Sex: Unknown Functional Status None recorded. Mental Status None recorded. Family History Relationship Description Onset Age of this Age Resolved Age Notes LastModified by Organization Details LastModified Time Mother Diabetes mellitus [email or web address] Not available 2021 13:23:04 Mother Hypertensive disorder Not available 2021 13:23:16 Father Diabetes mellitus [email or web address] Not available 2021 13:23:26 Father Hypertensive disorder [email or web address] Not available 2021 13:23:34 Medical History Condition Response Coronary Artery Disease N Other N Gout N Kidney Stones N Hyperthyroidism N Hypothyroidism Y COPD N Depression Y Anemia Y Deep Vein Thrombosis N Diabetes Y Anxiety Disorder Y Autoimmune disease N Bleeding Disorder N Arthritis N Seizures/Epilepsy N Tuberculosis N Cancer N Stroke N Diverticulitis N Asthma Y Reflux/GERD N High Cholesterol N Hepatitis N Liver Disease N Heart Disease N Bronchitis N Pulmonary Embolism N Headaches N Hypertension N Kidney Disease N Gynecological HistoryNo gynecological history recorded. Obstetrics History GPAL:G 0 P 0 0 0 0 Past Encounters Encounter ID Performer Location Encounter Start Date Encounter Closed Date Diagnosis/Indication Diagnosis SNOMED-CT Code Diagnosis ICD10 Code [id number] Rylie Buck MD [facility] [address] [place] [address] 01/31/2022 12:49:37 01/31/2022 14:34:29 Cyst of abdomen 378216544 R19.00 [id number] Rylie Buck MD [facility] [address] [facility] [place] [address] 02/14/2022 11:08:58 02/14/2022 11:32:42 Post-surgical wound care 503935636 Z48.01 Epidermoid cyst of skin 612081738 L72.3 [id number] Rylie Buck MD [facility] [address] [facility] [place] [address] 02/21/2022 10:29:04 02/21/2022 11:02:21 Cyst of abdomen 699661814 R19.00 Postoperative visit 1836 82975 Z09 [id number] Maria Del Rosario Fritz NP, S [facility] [address] [place] [address],[address] [place] [id number] 06/14/2022 11:30:03 06/14/2022 12:34:15 History of urinary tract infection 9029854031 107 Z87.440 Renal mass 290231582 N28 .89 [id number] Girish Ricks MD [facility] [address] [place] [address],[address] [place] [address] 4 07/26/2022 13:30:42 07/26/2022 14:11:40 History of urinary tract infection 7305155513 107 Z87.440 Renal mass 730562578 N28 .89 Cyst of kidney 971262610 N28.1 Female str ess incontinence 90380802 N39.3 Delay when starting to pass urine 5817519 R39.11 Overactive urinary bladder 831325366 N32.81 [id number] Girish Ricks MD [facility] [address] [place] [address],it e [address] [place] [id number] 02/19/2023 14:45:08 02/19/2023 15:12:19 History of urinary tract infection 1286478334 107 Z87.440 Renal mass 677505190 N28 .89 Cyst of kidney 864324714 N28.1 Female str ess incontinence 29059234 N39.3 Delay when starting to pass urine 0129879 R39.11 Overactive urinary bladder 347467705 N32.81 Abdominal pain 94749099 R10.9 Nausea and vomiting 1693 1999 R11.2 Diarrhea 33842823 R19.7 [id number] Kwabena Rubio PA-C [facility] [address] [place] [address] 03/27/2023 08:26:23 03/27/2023 09:09:52 Abdominal pain 23017814 R10.9 Diarrhea 32670049 R19.7 Colitis 16589444 K52.9 History of bypass of stomach 109908974 Z98.84 Dysphagia 77200337 R13.1 0 Health Concerns Section Related Observation [...] (MEDICARE REPLACEMENT REGIONAL PPO) [id number] Ambikaivan Pratt [id number] 98 Ambikaivan Murillo 06/14/2022 1 [place]ACEMENT [place]IONAL PPO[place] [id number] Ambika Galo Pratt [id number] 98 Ambika Lidia 07/26/2022 1 [place]IONAL PPO[place] [id number] Ambika Galo Pratt [id number] 98 Ambika Lidia 02/19/2023 1 [place]AL PPO[place] [id number] Ambikaivan Pratt [id number] 98 Ambika Lidia 03/27/2023 1 [place]AL PPO[place] [id number] Ambika Pratt [id number] 98 Ambika Lidia Notes Date Note Type Note Provider Name and Address Organization Details Recorded Time 2 text/html 56-year-old female post excision of cyst of the right lower abdomen. Doing very well. Instructions were given and there is no evidence of cellulitis or any drainage. Alert oriented in no distress rest of exam negative. Rylie Buck MD [address] [place] [address], [place], [address], [place] - [facility] - [place] & [place] 02/21/2022 10:57:09 3 text/html 55 yowf presents [...] seen Dr. fajardo 4 years ago at [facility] related to renal mass and was going to have surgery however, Dr. Gonzáles left and saw his social and human services assistant. She reports after seeing his social and human services assistant they recommended leaving a long stating that it was very small. She reports she has been having yearly CT scans at [facility] per Dr. Gonzáles, states it has grown some. Patient went to [facility] ER on 08/01/2021 related to abdominal pain [...] to kidney stone and was sent to [facility] and had surgical procedure performed per Dr. Menendez. She reports she was discharged from [facility] on Sunday and then had to [...] Rosario Fritz, GEORGE, [address], [place], [address], [facility] & [place] 06/14/2022 12:11:48 3 text/html The patient returns [...] seen Dr. fajardo 4 years ago at [facility] related to renal mass and was going to have surgery however, Dr. Gonzáles left and saw his social and human services assistant. She reports after seeing his social and human services assistant they recommended leaving a long stating that it was very small. She reports she has been having yearly CT scans at [facility] per Dr. Gonzáles, states it has grown some. Patient went to [facility] ER on 08/01/2021 related to abdominal pain [...] to kidney stone and was sent to [facility] and had surgical procedure performed per Dr. Menendez. She reports she was discharged from [facility] on Sunday and then had to [...] which could indicate contamination.] Girish Ricks MD [address], [place], [address], [facility] - [place] - [place] & [place] 07/30/2022 21:31:48 3 text/html Patient returns to clinic today for follow-up of lower urinary tract symptoms manifesting with urinary urgency, frequency and difficulty with bladder emptying. She is here today for possible cystoscopy but states that since December she has had protracted diarrhea, nausea, vomiting and abdominal cramping. She tells me she is waiting to see a brush stainer but is being told that it will [...] seen Dr. fajardo 4 years ago at [facility] related to renal mass and was going to have surgery however, Dr. Gonzáles left and saw his social and human services assistant. She reports after seeing his social and human services assistant they recommended leaving a long stating that it was very small. She reports she has been having yearly CT scans at [facility] per Dr. Gonzáles, states it has grown some. Patient went to [facility] ER on 08/01/2021 related to abdominal pain [...] to kidney stone and was sent to [facility] and had surgical procedure performed per Dr. Menendez. She reports she was discharged from [facility] on Sunday and then had to [...] which could indicate contamination.] Girish Ricks MD [address], [place], [address], [place] [facility] [place] 02/19/2023 15:10:22 3 text/html Pleasant 57-year-old female [...] EGD and colonoscopy 3 years ago at [facility]. Kwabena Rubio PA-C [address], [place], [address], [place] [facility] [place] 03/27/2023 09:18:58 OBGyn Episode No OBEpisode recorded.
--- OUTSIDE RECORDS SUMMARY | 2024-04-10 14:16 | XMS_ITS | Encounter Summary ---
Author Organization Healthcare Address [address] [place], [place] [id number] Care Team Providers Care Jet Dyeing Machine Tender Name Role Phone Eliecer Salima Tate SWANN Primary Care Provider [phone] Reason for Visit * Auth/Cert Specialty Diagnoses / Procedures Referred By Contac t Referred To Contact Diagnoses Closed fracture of distal end of left femur, unspecified fracture morphology, initial encounter (CMS/[facility]) Fall, femur fx Drew Matos MD [address] [address] Phone: tel: fax: [facility] Inpatient [address] [place] [address] Phone: tel: Referral ID Status Reason Start Date Expiration Date Visits Re quested Visits Authorized [id number] 1 Encounter Details Date Type Department Care Team (Late st Contact Info) Description 05/01/2021 1:00 PM EST Anesthesia Event [facility] RO[facility] [address] [place] [address] Patricio Figueroa MD [address] [place] [address] Brenda Graves MD Anesthesia Record Procedure Summary Procedure Name Responsible Anesthesiologist Anesthesia Start Time Anesthesia Stop Time INSERTION, INTRAMEDULLARY SCOTT, FEMUR [place] Periprosthetic Retrograde Femur Nail (Left: Leg Upper) [...] Date/Time: 05/01/21914 Procedure: INSERTION, INTRAMEDULLARY SCOTT, FEMUR [place] Periprosthetic Retrograde Femur Nail (Left Leg Upper) - 1A Case #2; Supine, Anuj table, [place] periprosthetic femur nail, [place] PS poly; trauma toolbox, ortho soft tissue [...] ANESTHESIA PLACEHOLDER Routine 05/01/2021 1:09 PM EST [place] AN ELECTIVE ENDOTRACHEAL AIRWAY Routine 05/01/2021 1:09 [...] ??2:15 PM Peripheral IV Inserted by: Patricio Fgiueroa MD Placement Needle size: 18 G Location: hand Local anesthetic: none Site prep: alcohol Technique: ultrasound guided Attempts: 1 us Patricio Figueroa MD ANESTHESIA ORDERABLES Final Re sult * [place] AN ELECTIVE ENDOTRACHEAL AIRWAY, PB ANESTHESIA PLACEHOLDER [...] mg documented in this encounter Care Teams Jet Dyeing Machine Tender Relationship Specialty Start Date End Date Salima Gonzáles DO [address] [place] [address] PCP - General 09/17/20 documented as of this encounter
--- OUTSIDE RECORDS SUMMARY | 2024-04-10 14:16 | XMS_ITS | Clinical Summary ---
Author Organization [facility] [place] [address] Care Team Providers Care Dental Internship Name Role Phone Unavailable Primary Care Provider [...]
--- OUTSIDE RECORDS SUMMARY | 2024-04-10 14:16 | XMS_ITS | Encounter Summary ---
Author Organization Healthcare Address [address] [place] [address] Care Team Providers Care Cut Out Operator Name Role Phone Salima Gonzáles DO Primary Care Provider [phone] Encounter Details Date Type Department Care Team [...] in this encounter Care Teams Cut Out Operator Relationship Specialty Start Date End Date Salima Gonzáles DO [facility] [place] [address] PCP - General 09/17/20 documented as of this encounter
--- OUTSIDE RECORDS SUMMARY | 2024-04-10 14:16 | XMS_ITS ---
Author Organization [facility] , [facility] Address [address] [place] [address] Phone Care Team Providers Care Vein Access Technician Name Role Phone Dereje PORTILLO, Gilberto [place] Unavailable [phone] Plan of Treatment No Plan of Treatment Recorded Assessments Includes: Assessments for all patient encounters No Assessments Recorded Medical Equipment - Implanted Devices Includes: Current and historical Devices No Medical Equipment Recorded Medications Administered Includes: Administered Medications in patient's chart No Administered Medications Recorded Results Includes: Results from 04/10/2023 through 04/10/2024 No Results Recorded For Specified Dates History [...] Subscriber Relationship Effect jhony Dates 1 - [facility] [id number] Neetu Pratt Self Clinical Notes Includes: Signed Clinical Notes starting from 04/20/2022 No Clinical Notes Recorded
--- OUTSIDE RECORDS SUMMARY | 2024-04-10 14:16 | XMS_ITS ---
Author Organization [facility] Address [address] [place] [address] Phone Care Team Providers Care Pretzel Packer Name Role Phone Isiah Sheridan DPM Unavailable [phone] Salima Gonzáles DO Primary Care Provider [phone] Plan of Treatment No Plan of Treatment [...] Guarantor Ph one Neetu Murillo Self [phone] Clinical Notes Includes: Signed Clinical Notes starting from 04/20/2022 No Clinical Notes Recorded
--- OUTSIDE RECORDS SUMMARY | 2024-04-10 14:16 | XMS_ITS | Encounter Summary ---
Author Organization Healthcare Address [address] [id number] Care Team Providers Care Quick Service Technician Name Role Phone Eliecer Salima Tate SWANN Primary Care Provider [phone] Reason for Visit * Reason Comments Fall * Auth/Cert Specialty Diagnoses / Procedures Referred By Contac t Referred To Contact Diagnoses Closed fracture of distal end of left femur, unspecified fracture morphology, initial encounter (CMS/[facility]) Fall, femur fx Ji Atkins MD [address] [place] [address] Phone: tel: fax: P[facility] H Inpatient [address] [place] [address] Phone: tel: Referral ID Status Reason Start Date Expiration Date Visits Re quested Visits Authorized [id number] 1 1 Encounter Details Date Type Department Care Team (Late st Contact Info) Description 05/01/2021 9:15 AM EST - 05/01/2021 2:32 PM EST Surgery [facility] A OPERATING ROOM [address] [place] [id number] Bebeto Flynn MD [address] [place] [address] INSERTION, INTRAMEDULLARY JESSE, FEMUR Abdiel Periprosthetic Retrograde Femur Nail Surgery Details Date/Time Status Location OR Service Patient Class Case Class Case Type Trauma Case? 05/01/2021 9:15 AM Posted PAO OR P[facility] OR 01 Orthopedic Surgery Inpatient B-Urgent: to be done within 4 hours Panel 1 Procedure LRB Anes Op Region Wound Class Comments INSERTION, INTRAMEDULLARY JESSE, FEMUR [place] Periprosthetic Retrograde Femur Nail Left General Leg Upper 1A Case #2; Supine, Anuj table, [place] periprosthetic femur nail, Abdiel PS poly; trauma [...] clot in the space between bone fragments. [employer] last reviewed this educational content on 09/04/2017 ?? [id number] The [employer]. All rights reserved. This information is not intended as a substitute for professional medical care. Always follow your healthcare professional's instructions. * Attachments The following attachments cannot be sent through Care Everywhere. * Femur Fracture Open Reduction and Internal Fixation (ORIF), Understanding (Bolivian) * Femur Fracture Open Reduction and Internal Fixation (ORIF), Having (Bolivian) * Fractured Femur: Internal Fixation, Discharge Instructions for (Bolivian) * Surgical Site Infections, Preventing (Bolivian) * Weight Bearing Status: What It Means ([place]) (Bol[place]ian) * Acetaminophen Oral Tablet 500 mg (Bolivian) * Enoxaparin Prefilled Syringe 60 mg/0.6 mL (Bolivian) * Gabapentin Oral Capsule 300 mg (B[place]ivian) * Levofloxacin Oral Tablet 750 mg (B[place]ian) * Melatonin Oral Tablet 3 mg (B[place]ivian) * Methocarbamol Oral Tablet 500 mg (B[place]ivian) * Oxycodone Oral Tablet 5 mg (Bolivian) * Controlled Substance Discharge Sheet - [facility] () ([place]ian) * Senna /Docusate Oral Tablet 8.6 mg / 50 mg (B[place]ivian) documented in this encounter Medications at Time [...] HH PT/OT. Referrals for DME sent to [facility]. Referrals sent for HH. No accepting agency at this time. Provider to give pt a script for outpt PT/OT in the event she isn't picked up by HH. Will follow and assist asneeded. Marilu CHAVIRA, RN Trauma/EGS [phone] * Discharge Instr - Appointments - Isiah Crawley RN - 05/06/2021 9:44 AM EST Follow up with Primary Care Provider one week after discharge. Follow up as needed with trauma clinic (Sunday clinic) [address] [place] [address] Clinic 1st [place] [address] Questions or Concerns and Appointments If there are questions or concerns after discharge from the hospital, please call [phone] and ask for Blue Surgery Nurse. Working hours are Sunday - Sunday 8:00 AM to 4:00 PM. After hours, weekends and holidays please call [phone] and ask for the resident manager personal for Blue Surgery. For appointments please call [phone]. Medication requests should be made between the hours of 9:00 AM to 3:00 PM Sunday thru Sunday. Please note that based upon recent changes to [place] law related to prescribing opioid pain medications, [...] Transfer Exam: Sit to stand Level of [place]: Stand-by assist Physical/Nonphysical Assist: Verbal Cues (for hand placement) Assistive Device: Walker, rolling Transfer Exam: Stand to Sit Level of [place]: Stand-by assist Physical/Nonphysical Assist: Verbal Cues (for [...] name and Address: Salima Gonzáles, DO [address] / [facility] [address] Referring provider name and address: Shaquille Gaming MD [address] [address] Chief Concern, Brief History of Present Illness, [...] as needed with trauma clinic (Sunday clinic) [address] [place] [address] 1st [place] [address] Questions or Concerns and Appointments If there are questions or concerns after discharge from the hospital, please call [phone] and ask for Blue Surgery Nurse. Working hours are Sunday - Sunday 8:00 AM to 4:00 PM. After hours, weekends and holidays please call [phone] and ask for the resident manager personal for Blue Surgery. For appointments please call [phone]. Medication requests should be made between the hours of 9:00 AM to 3:00 PM Sunday thru Sunday. Please note that based upon recent changes to [place] law related to prescribing opioid pain medications, our providers will not provide refills on controlled medications after your hospital discharge following a major surgery or trauma. [place], [place] 201 KAR9:260. Surgeries and Procedures Procedures performed in this encounter Procedures ??? Case Request Operating Room: INSERTION, INTRAMEDULLARY JESSE, FEMUR [place] Periprosthetic Retrograde Femur Nail INSERTION, INTRAMEDULLARY JESSE, FEMUR [place] Periprosthetic Retrograde Femur Nail (Left) Medication List [...] Your Medications These medications were sent to [facility] - [place], [place] - [address] , [facility] [address] ?? acetaminophen 500 MG tablet ?? enoxaparin [...] Center 05/17/2021 8:10 AM Bebeto Flynn MD ORTHGSNDB GS MOB Pertinent Physical Exam At Time [...] Note Ambika Pratt 55 y.o. female CSN: [id number] Room/Bed 874/874A Nutrition evaluation type: assessment Reason for evaluation: LOS Hospital course: 55 yo female S/P ORIF left femur fracture on 05/01. Past medical/ surgical history: has a past medical history of COPD (chronic obstructive pulmonary disease) ([facility]), Diabetes mellitus ([facility]), Hypertensive heart disease without congestive heart failure, and Lactic acidosis (04/30/2021). Social history: Additional comments: Vitals and Basic Assessment: BP: 115/82 Temp: 36.7 ??C (98.1 ??F) Oxygen Therapy: None (Room air) O2 Delivery Method: Nasal cannula [place] Coma Scale Score: 15 Ranulfo Scale Score: [...] Weight Evaluation: Extreme Obesity (BMI > 40) [place] Body Weight (kg): 47.7 Percent [place] Body Weight: 252 Estimated Needs: Grams of CHO Percent calories from CHO: Current Nutrition Intake: Diet Order: Adult Diet Diet Texture: Regular Adult Carbohydrate Restriction: Consistent CHO 2 (8888-3105 Usman, 80 g/meal) Percent Meals Eaten (%): 75%/75%/33% (05/03) Diet Experience and Nutrition History: Diet Education Provided: Will monitor Pertinent home medications: Zoroastrianism needs: Nutrition Focused Physical Exam: Unable to [...] Note Ambika Pratt 55 y.o. female CSN: [id number] Admission: 04/30/2021 12:34 PM Primary Problem: Closed fracture of left distal femur (CMS/HCC) Anticipated Discharge Date: tbd Has Discharge Plans Changed? No Additional Comments Per primary treatment team, patient medically ready for rehab. Referral sent to [facility] 05/03, reviewing for possible acceptance. will continue to follow and assist. JOSE Castillo, MEMBERSHIP ADMINISTRATOR Trauma/EGS Hydraulic Jack Operator [phone] * Progress Notes - Tad Fuller PTA [...] session. Participants in Care Family/Caregiver Present: No Chemistry Technical Officer: Not Applicable Presentation Oxygen Therapy: None (Room [...] PM. * Progress Notes - Yamini Belcher, ROLL SCALE WORKER - 05/05/2021 10:02 AM EST 05/05/21 Ambika [...] (hypertension) Overview Signed 05/01/2021 8:12 AM by Aav Joseph APRN Restart home meds as appropriate [...] urination. Patient tolerating po intake. Last BM FRENCH TEACHER. Patient and nurse have no other concerns [...] sessions. Participants in Care Family/Caregiver Present: No Chemistry Technical Officer: Not Applicable Presentation Oxygen Therapy: None (Room [...] transfer. Bed Mobility Exam: Rolling/Turning Level of [place]: Contact guard Physical/Nonphysical Assist: Set-up required Assistive Device: Bed rails Bed Mobility Exam: Scooting/Bridging Level of [place]: Contact guard (in sitting to edge of bed) Physical/Nonphysical Assist: Set-up required,Verbal Cues Assistive Device: Bed rails Bed Mobility Exam: Supine to Sit Level of [place]: Contact guard Physical/Nonphysical Assist: Set-up required,Verbal Cues,Moderate cues Assistive Device: Bed rails Bed Mobility Exam: Sit to Supine Level of [place]: (Pt left seated in bedside chair.) Transfers Transfer Exam: Sit to stand Level of [place]: Contact guard Physical/Nonphysical Assist: Set-up required,Verbal Cues,Minimal cues Assistive Device: Walker, rolling Transfer Exam: Stand to Sit Level of [place]: Contact guard Physical/Nonphysical Assist: Set-up required,Verbal Cues,Minimal cues Assistive Device: Walker, rolling Transfer Exam: Bed to Chair/Chair to Bed Level of [place]: Contact guard Physical/Nonphysical Assist: Set-up required,Verbal Cues [...] a helper. 5 Set-up or Clean-up Assistance Bromide sets up or cleans up; patient completes activity. [place] assists only prior to or following the activity. 4 Supervision or touching assistance Bromide provides verbal cues and/or touching/steadying and/or contact guard assistance as patient completes activity. Assistance may be provided throughout the activity or intermittently. 3 Partial/Moderate Assistance [place] does LESS THAN HALF the effort. [place] lifts, holds or supports trunk or limbs, but provides less than half the effort. 2 Substantial/Maximal Assistance Bromide does MORE THAN HALF the effort. [place] lifts or holds trunkor limbs and provides more than half the effort. 1 Dependent Bromide does ALL of the effort. Patient does [...] Note Ambika Pratt 55 y.o. female CSN: [id number] Admission: 04/30/2021 12:34 PM Primary Problem: Closed fracture of left distal femur (CMS/HCC) Anticipated Discharge Date: tbd Has Discharge Plans Changed? No Additional Comments Per primary treatment team, patient is medically ready for discharge on this date. PT re-evaluated on this date due to concerns of discharge home. Recs changed to acute rehab. SW sent referrals to [facility] and the [facility] [place] on this date. SW will continue to follow and assist. JOSE Castillo, MEMBERSHIP ADMINISTRATOR Trauma/EGS Hydraulic Jack Operator [phone] * Progress Notes - Gabby Pratt APRN [...] APRN * Progress Notes - Aurora Ryan, FRENCH TEACHER - 05/03/2021 11:03 AM EST Physical Therapy [...] Mobility Bed Mobility Exam: Scooting/Bridging Level of [place]: Minimum assist (75% patient's effort) Physical/Nonphysical Assist: Set-up required,Verbal Cues Assistive Device: Bed rails Bed Mobility Exam: Supine to Sit Level of [place]: Minimum assist (75% patient's effort) Physical/Nonphysical Assist: Moderate cues (HOB flat) Assistive Device: Bed rails Transfers Transfer Exam: Sit to stand Level of [place]: Minimum assist (75% patient's effort) Physical/Nonphysical Assist: Set-up required,Verbal Cues,Moderate cues Assistive Device: Walker, rolling Transfer Exam: Stand to Sit Level of [place]: Contact guard Physical/Nonphysical Assist: Set-up required,Verbal Cues,Minimal cues Assistive Device: Walker, rolling Toilet Transfer Level of [place]: Minimum assist (75% patient's effort) Physical/Nonphysical Assist: [...] Assessment Unable to assess 05/03/21799 Nia-Wound Assessment Red;Ecchymotic;Erythematous;Hyperpigmented;[place];Dry 05/03/21799 Drainage Amount None 05/03/21 08 Treatments [...] please contact the Orthopedic Transition Nurse at [phone] Sunday through Sunday 8:00 am to 2:30 pm. If you feel your concern is a medical emergency please call 911 immediately. Based upon recent changes to [place] law related to prescribing opioid pain medications, [...] standpoint Travis Neumann MD PGY-3, Orthopaedic Surgery [facility] Orthopaedic Trauma Service Pager: [phone] Orthopaedic Recon/Spine/Foot and Ankle Service Pager: [phone] Personal Pager: [phone] Cosigned by Vadim Molina MD at 05/06/2021 [...] Aguilar Aponte Terence 55 y.o. female CSN: [id number] Admission: 04/30/2021 12:34 PM Primary Problem: Closed fracture of left distal femur (CMS/HCC) Metalizing Machine Operator reviewed chart and spoke with patient to complete this Initial Case Management Assessment. PCP: Salima Gonzáles DO Emergency Contact: Extended Emergency Contact Information Primary Emergency Contact: Ambreen De Anda Mobile Relation: Daughter Preferred language: Bolivian Chemistry Technical Officer needed? No Insurance: Primary Visit Coverage Payer Plan Sponsor Code Group Number Group Name ANTHEM MEDICARE ANTHEM SENIOR ADVANTAGE [id number] Primary Visit Coverage Subscriber Subscriber ID Subscriber Name Subscriber SSN Subscriber Address [id number] AMBIKA MOSCOSO [id number] [place] [address] Patient information: Patient is a 55 y.o. female admitted due to a fall from standing after tripping over her grandson'stoys. Injuries include closed fracture of left distal femur. Daily Living Activities: [address] [place] [address] Anticipated Discharge Date: tbd Assistance Available at [...] continue to follow and assist. 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 Standardized Assessments [facility] 6-Clicks Mobility Assessment Difficulty patient has turning [...] climbing 3-5 steps with a railing?: Unable [facility] 6-Clicks Mobility Assessment Total : 18 Assessment [...] Procedures 05/01/2021 Procedure(s): INSERTION, INTRAMEDULLARY JESSE, FEMUR [place] Periprosthetic Retrograde Femur Nail Past Medical History Patient has a past medical history of COPD (chronic obstructive pulmonary disease) ([facility]), Diabetes mellitus ([facility]), Hypertensive heart disease without congestive [...] Not accessible Home Living Comments: 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 Pt scooted(I) in bedside chair to back of chair.) Physical/Nonphysical Assist: Set-up required,Verbal Cues Assistive Device: Other (draw sheet) Bed Mobility Exam: Supine to Sit Level of [place]: Minimum assist (75% patient's effort) Physical/Nonphysical Assist: HOB elevated,Set-up required,Verbal Cues Assistive Device: Bed rails Bed Mobility Exam: Sit to Supine Level of [place]: (Pt left seated in bedside chair.) Balance [...] up: Dr. Flynn, 05/17/21 Disposition: admitted to [facility] Johnny Agudelo MD PGY-1, Orthopaedic Surgery [facility] Orthopaedic Trauma Service Pager: [phone] Orthopaedic Recon/Spine/Foot and Ankle Service Pager: [phone] Cosigned by Bebeto Flynn MD at 05/02/2021 [...] PM EST Operative Note Date: 05/01/21 Location: [place] [facility] Name: Ambika Pratt, : 1965, Diagnoses: Pre-op Diagnosis Closed fracture of distal end of left femur, unspecified fracture morphology, initial encounter ([facility]) Post-op Diagnosis Closed fracture of distal end of left femur, unspecified fracture morphology, initial encounter ([facility]) Procedure(s): Treatment of femoral shaft fracture with intramedullary implant Attending Surgeon(s): * Bebeto Flynn - Primary Pediatric Psychologist(s): Dr. Crow Lockwood Anesthesia: General ASA: III [...] RETRO T2 ALPHA 11MM X 340MM - [id number] Implanted Screw SCREW LOCKING T2 D5XL80 - [id number] - [id number] Implanted [id number] SCREW LOCKING T2 D5XL50 - [id number] Implanted SCREW LOCKING T2 D5XL60 - [id number] Implanted SCREW LOCKING T2 D5XL75 - [id number] Implanted SCREW LOCKING T2 D5XL55 - [id number] Implanted SCREW LOCKING T2 D5X32.5 - [id number] Implanted SCREW LOCKING T2 D5X37.5 - [id number] Implanted Specimen: none Findings: stable fracture, stable [...] knee was noted to be a Press-Fit [place] Triathlon. Despite continuing the hospital, implant records [...] proximal interlocking bolts were placed using perfect [place] technique. Final fluoroscopic imaging demonstrated acceptable reduction and voodoo of length alignment rotation when comparing lessre [...] 05/01/2021 1:45 PM EST Date: 05/01/21 Location: [place] [facility] Name: Ambika Pratt, : 1965, Diagnoses: Pre-op Diagnosis Closed fracture of distal end of left femur, unspecified fracture morphology, initial encounter ([facility]) Post-op Diagnosis Closed fracture of distal end of left femur, unspecified fracture morphology, initial encounter ([facility]) Procedure(s): Retrograde IMN L femur fx Attending Surgeon(s): Tiny Flynn - Primary Pediatric Psychologist(s): florin Anesthesia: General ASA: III Blood Administration: Blood Product Administration History None Estimated Blood Loss: 250 mL Drains: * None in log * Implants Type Name Action Serial No. Nail NAIL FEMORAL RETRO T2 ALPHA 11MM X 340MM - [id number] Implanted Screw SCREW LOCKING T2 D5XL80 - [id number] - [id number] Implanted [id number] SCREW LOCKING T2 D5XL50 - [id number] Implanted SCREW LOCKING T2 D5XL60 - [id number] Implanted SCREW LOCKING T2 D5XL75 - [id number] Implanted SCREW LOCKING T2 D5XL55 - [id number] Implanted SCREW LOCKING T2 D5X32.5 - [id number] Implanted SCREW LOCKING T2 D5X37.5 - [id number] Implanted Specimen: none Findings: stable fracture Complications: [...] needed with trauma clinic (Sunday clinic) [address] [facility] 1st floor [place], [place] [id number] Questions or Concerns and Appointments If there are questions or concerns after discharge from the hospital, please call [phone] and ask for Blue Surgery Nurse. Working hours are Sunday - Sunday 8:00 AM to 4:00 PM. After hours, weekends and holidays please call [phone] and ask for the resident manager personal for Blue Surgery. For appointments please call [phone]. Medication requests should be made between the hours of 9:00 AM to 3:00 PM Sunday thru Sunday. Please note that based upon recent changes to [place] law related to prescribing opioid pain medications, [...] Edited by: Ava Joseph APRN at 05/01/2021 0897 Past Medical History: Active Ambulatory Problems Diagnosis Date Noted ??? No Active Ambulatory Problems Resolved Ambulatory Problems Diagnosis Date Noted ??? No Resolved Ambulatory Problems Past Medical History: Diagnosis Date ??? COPD (chronic obstructive pulmonary disease) ([facility]) ??? Diabetes mellitus (CMS/[facility]) ??? Hypertensive heart disease without [...] (Principal) Closed fracture of left distal femur ([facility]) Overview Addendum 04/30/2021 4:01 PM [...] Hdz MD Admit to trauma floor Diabetes ([facility]) Overview Addendum 05/01/2021 8:17 AM by Ava Joseph APRN Sliding-scale insulin CC2 diet once OR complete To Do: - Mobility and IS - NPO for OR with ortho - possible transfer to ortho - AM labs ordered Dispo: PT/OT after surgery Edited by: Ava Joseph APRN at 05/01/2021 0817 Ava Joesph APRN * Progress Notes - Crow Lockwood [...] Resident Physician Orthopedic Reconstructiion ([facility]) Service Pager: [phone] Orthopedic Trauma ([facility]) Service Pager: [phone] Cosigned by Bebeto Flynn MD at 05/01/2021 [...] history of COPD (chronic obstructive pulmonary disease) ([facility]), Diabetes mellitus ([facility]), and Hypertensive heart disease without [...] Exposure Concern ??? Not on file Employer: [employer] Immunizations VACCINE/DOSE Flu Tetanus Pneumovax Shingles A [...] (264 lb 8.8 oz), SpO2 98 %. [place] 15 Intubated No Recent Results Labs in [...] knee replacements with Dr. Doty, now in [place], [place]. Surgeries performed in [facility]. L TKA 2013. Press fit Abdiel Triathalon. Reports uncomplicated postoperative course, satisfied with outcome. R TKA 2015. Lithotripsy approx 10 days ago Heel spur removal x2 x2 Hysterectomy Cholecystectomy FAMILY HISTORY Family history reviewed and otherwise non-contributory. SOCIAL HISTORY Tobacco: 1/2ppd [id number] EtOH: denies Illicits: denies Lives in [place], [place] with daughter Employment: [employer] REVIEW OF SYSTEMS Review of systems is [...] institutional protocol Daniel Campoverde MD Orthopaedic Surgery [facility] Orthopaedic Trauma Service Pager: [phone] Orthopaedic Recon/Spine/Foot and Ankle Service Pager: [phone] Cosigned by Bebeto Flynn MD at 05/01/2021 [...] Exposure Concern ??? Not on file Employer: [employer] Travel History Relevant International Travel History: Travel [...] left femur, unspecified fracture morphology, initial encounter ([facility]) MDM Number of Diagnoses or Management Options Closed fracture of distal end of left femur, unspecified fracture morphology, initial encounter ([facility]) Diagnosis management comments: I assessed [...] progress: stable Donna Marino MD Resident 04/30/21 7729 Cosigned by Samson Nguyen MD at 05/01/2021 [...] left femur, unspecified fracture morphology, initial encounter ([facility]) PROTHROMBIN TIME(PT) / INR Routine [...] Comment 05/06/2021 11:40 AM EST [facility] General Sales Manager ID Iram Phillips 05/06/2021 11:40 AM EST [facility] Device ID [id number] 05/06/2021 11:40 AM EST [facility] Specimen Type POC Capillary 05/06/2021 11:40 AM EST [facility] Blood Capillary blood specimen / Unknown 05/06/2021 11:34 AM EST 05/06/2021 11:40 AM EST Dory Slade MD LAB POINT OF CARE TEST DOCKED DEVICE UNSOLICITED RESULTS Final Result Performing Organization Address City/State/[facility] Co de Phone Number [facility] [address] [place] [address] * SARS CoV-2/COVID-19 by PCR (05/06/2021 10:05 AM EST) [facility] SARS CoV-2/COVID-1 9 RNA PCR Result Not [...] recommendations. This test was performed using the Alloka M2000 SARS CoV-2 test, a qualitative PCR-based [...] OR DERABLES Final Result Performing Organization Address [facility] Co de Phone Number [facility] [address] [place] [address] * (ABNORMAL) POCT glucose meter (05/06/2021 7:26 [...] Comment 05/06/2021 7:30 AM EST [facility] General Sales Manager ID Iram Phillips 05/06/2021 7:30 AM EST [facility] Device ID [id number] 05/06/2021 7:30 AM EST [facility] Specimen Type POC Capillary 05/06/2021 7:30 AM EST [facility] Blood Capillary blood specimen / Unknown 05/06/2021 7:26 AM EST 05/06/2021 7:30 AM EST Dory Slade MD LAB POINT OF CARE TEST DOCKED DEVICE UNSOLICITED RESULTS Final Result Performing Organization Address [facility] de Phone Number [facility] [address] [place] [address] * (ABNORMAL) POCT glucose meter (05/05/2021 7:26 [...] 05/05/2021 7:30 PM EST [facility] General Sales Manager ID Sandra Araujo 021 7:30 PM EST [facility] Device ID [id number] 05/05/2021 7:30 PM EST [facility] Specimen Type POC Capillary 05/05/2021 7:30 PM EST [facility] Blood Capillary blood specimen / Unknown 05/05/2021 7:26 PM EST 05/05/2021 7:30 PM EST us Dory Slade MD LAB POINT OF CARE TEST DOCKED DEVICE UNSOLICITED RESULTS Final Result Performing Organization Address [facility] Co de Phone Number [facility] [address] [place] [address] * (ABNORMAL) POCT glucose meter (05/05/2021 6:22 [...] 05/05/2021 6:25 PM EST [facility] General Sales Manager ID Keeley Womack 05/05/20 6:25 PM EST [facility] Device ID [id number] 05/05/2021 6:25 PM EST [facility] Specimen Type POC Capillary 05/05/2021 6:25 PM EST [facility] Blood Capillary blood specimen / Unknown 05/05/2021 6:22 PM EST 05/05/2021 6:25 PM EST us Dory Slade MD LAB POINT OF CARE TEST DOCKED DEVICE UNSOLICITED RESULTS Final Result Performing Organization Address City/[facility] Co de Phone Number [facility] [address] [place] [address] * (ABNORMAL) POCT glucose meter (05/05/2021 4:52 PM EST) [facility] POCT Glucose 71(L) 74 - 99 mg/dL [...] for testing. Comment 05/05/2021 4:55 PM EST [facility] General Sales Manager ID Keeley Womack 05/05/20 4:55 PM EST [facility] Device ID [id number] 05/05/2021 4:55 PM EST [facility] Specimen Type POC Capillary 05/05/2021 4:55 PM EST [email or web address] Blood Capillary blood specimen / Unknown 05/05/2021 4:52 PM EST 05/05/2021 4:55 PM EST Dory Slade MD LAB POINT OF CARE TEST DOCKED DEVICE UNSOLICITED RESULTS Final Result [facility] [address] [place] [address] * (ABNORMAL) POCT glucose meter (05/05/2021 11:20 AM EST) [facility] POCT Glucose 134(H) 74 - 99 mg/dL 05/05/2021 11:25 AM EST [email or web address] Comment:Accuracy of a glucos e result [...] for testing. Comment 05/05/2021 11:25 AM EST [facility] General Sales Manager ID Keeley Womack 05/05/20 11:25 AM EST [facility] Device ID [id number] 05/05/2021 11:25 AM EST [facility] Specimen Type POC Capillary 05/05/2021 11:25 AM EST [facility] Blood Capillary blood specimen / Unknown 05/05/2021 11:20 AM EST 05/05/2021 11:25 AM EST us Dory Slade MD LAB POINT OF CARE TEST DOCKED DEVICE UNSOLICITED RESULTS Final Result Performing Organization Address City/[facility] Co de Phone Number [facility] [address] [place] [address] * (ABNORMAL) POCT glucose meter (05/05/2021 7:38 [...] Comment 05/05/2021 7:40 AM EST [facility] General Sales Manager ID Keeley Womack 05/05/20 7:40 AM EST [facility] Device ID [id number] 05/05/2021 7:40 AM EST [facility] Specimen Type POC Capillary 05/05/2021 7:40 AM EST [facility] Blood Capillary blood specimen / Unknown 05/05/2021 7:38 AM EST 05/05/2021 7:40 AM EST us Dory Slade MD LAB POINT OF CARE TEST DOCKED DEVICE UNSOLICITED RESULTS Final Result Performing Organization Address City/[facility]/ZIP Co de Phone Number [facility] [address] [place] [address] * (ABNORMAL) POCT glucose meter (05/04/2021 10:04 [...] for testing. Comment 05/04/2021 10:10 PM EST [facility] General Sales Manager ID Xenia Hummel 05/04/2021 10:10 PM EST [facility] Device ID [id number] 05/04/2021 10:10 PM EST [facility] Specimen Type POC Capillary 05/04/2021 10:10 PM EST [facility] Blood Capillary blood specimen / Unknown 05/04/2021 10:04 PM EST 05/04/2021 10:10 PM EST Dory Slade MD LAB POINT OF CARE TEST DOCKED DEVICE UNSOLICITED RESULTS Final Result Performing Organization Address City/[facility] Co de Phone Number [facility] [address] [place] [address] * Urinalysis Microscopic Examination (05/04/2021 4:52 PM EST) Urine Urine specimen obtained by clean catch procedure / Unknown Non-blood Collection / Unknown 05/04/2021 4:52 PM EST 05/04/2021 5:02 PM EST Gabby Pratt ROLL SCALE WORKER, DNP LAB URINE ORDERABLES Fi nal Result Performing Organization Address City/[facility] Co de Phone Number [facility] [address] [place] [address] * (ABNORMAL) Urinalysis with reflex microscopic (05/04/2021 4:52 PM EST) Color, Urine Yellow LAB URINALYSIS - AUTOMATED METHOD 05/04/2021 5:11 PM EST [facility] Clarity, Urine Clear LAB URINALYSIS - AUTOMATED METHOD 05/04/2021 5:11 PM EST [facility] Spec [place], Urine 1.019 <=1.005 to >=1.030 LAB URINALYSIS - AUTOMATED METHOD 05/04/2021 5:11 PM EST [facility] pH, Urine 6.5 4.5 to 8 LAB URINALYSIS - AUTOMATED METHOD 05/04/2021 5:11 PM EST [facility] Protein, Urine Negative Negative mg/dL LAB URINALYSIS - AUTOMATED METHOD 05/04/2021 5:11 PM EST [facility] Glucose, Urine Negative Negative mg/dL LAB URINALYSIS - AUTOMATED METHOD 05/04/2021 5:11 PM EST [facility] Ketones, Urine Negative Negative mg/dL LAB URINALYSIS - AUTOMATED METHOD 05/04/2021 5:11 PM EST [facility] Blood, Urine Negative Negative LAB URINALYSIS - AUTOMATED METHOD 05/04/2021 5:11 PM EST [facility] Bilirubin, Urine Negative Negative LAB URINALYSIS - AUTOMATED METHOD 05/04/2021 5:11 PM EST [facility] Urobilinogen, Urine 1.0 0.2 to 1.0 mg/dL LAB URINALYSIS - AUTOMATED METHOD 05/04/2021 5:11 PM EST [facility] Leukocytes, Urine Trace(A) Negative LAB URINALYSIS - AUTOMATED METHOD 05/04/2021 5:11 PM EST [facility] Nitrite, Urine Negative Negative LAB URINALYSIS - AUTOMATED METHOD 05/04/2021 5:11 PM EST [facility] RBC, Urine 2 0 to 3 /HPF LAB URINALYSIS - AUTOMATED METHOD 05/04/2021 5:11 PM EST [facility] Comment:This result was prev iously suppressed from the chart. WBC, Urine 0 - 5 0 to 5 /HPF LAB URINALYSIS - AUTOMATED METHOD 05/04/2021 5:11 PM EST [facility] Comment:This result was prev iously suppressed from the chart. Squamous Epithelial Cells 0 - 5 0 to 5 /HPF LAB URINALYSIS - AUTOMATED METHOD 05/04/2021 5:11 PM EST [facility] Comment:This result was prev iously suppressed from the chart. Hyaline Casts 0 - 8 0 to 8 /LPF LAB URINALYSIS - AUTOMATED METHOD 05/04/2021 5:11 PM EST [facility] Comment:This result was prev iously suppressed from the chart. Bacteria, Urine Negative Negative LAB URINALYSIS - AUTOMATED METHOD 05/04/2021 5:11 PM EST [facility] Comment:This result was prev iously suppressed from the chart. Urine Urine specimen obtained by clean catch procedure / Unknown Non-blood Collection / Unknown 05/04/2021 4:52 PM EST 05/04/2021 5:02 PM EST us Gabby Pratt ROLL SCALE WORKER, DNP LAB URINE ORDERABLES Fi nal Result Performing Organization Address [facility] Co de Phone Number [facility] [address] [place] [address] * (ABNORMAL) POCT glucose meter (05/04/2021 4:42 PM EST) POCT Glucose 113(H) 74 - 99 mg/dL 05/04/2021 4:45 PM EST [facility] Comment:Accuracy of a glucos e result [...] for testing. Comment 05/04/2021 4:45 PM EST [facility] General Sales Manager ID Tereza Feng 05/04/2021 4:45 PM EST [facility] Device ID [id number] 05/04/2021 4:45 PM EST [facility] Specimen Type POC Capillary 05/04/2021 4:45 PM EST [facility] Blood Capillary blood specimen / Unknown 05/04/2021 4:42 PM EST 05/04/2021 4:45 PM EST Dory Slade MD LAB POINT OF CARE TEST DOCKED DEVICE UNSOLICITED RESULTS Final Result Performing Organization Address [facility] Phone Number [facility] [address] [place] [address] * (ABNORMAL) POCT glucose meter (05/04/2021 11:44 [...] 05/04/2021 11:50 AM EST [facility] General Sales Manager ID Keeley Womack 05/04/20 11:50 AM EST [facility] Device ID [id number] 05/04/2021 11:50 AM EST [facility] Specimen Type POC Capillary 05/04/2021 11:50 AM EST [facility] Blood Capillary blood specimen / Unknown 05/04/2021 11:44 AM EST 05/04/2021 11:50 AM EST Dory Slade MD LAB POINT OF CARE TEST DOCKED DEVICE UNSOLICITED RESULTS Final Result Performing Organization Address City/[facility] Co de Phone Number [facility] [address] [place] [address] * (ABNORMAL) POCT glucose meter (05/04/2021 7:25 AM EST) POCT Glucose 119(H) 74 - 99 mg/dL 05/04/2021 7:30 AM EST [email or web address] Comment:Accuracy of a glucos e result [...] Comment 05/04/2021 7:30 AM EST [facility] General Sales Manager ID Keeley Womack 05/04/20 7:30 AM EST [facility] Device ID [id number] 05/04/2021 7:30 AM EST [facility] Specimen Type POC Capillary 05/04/2021 7:30 AM EST [facility] Blood Capillary blood specimen / Unknown 05/04/2021 7:25 AM EST 05/04/2021 7:30 AM EST us Dory Slade MD LAB POINT OF CARE TEST DOCKED DEVICE UNSOLICITED RESULTS Final Result Performing Organization Address City/[facility] Co de Phone Number [facility] [address] [place] [address] * Aspartate Aminotransferase, Plasma (05/04/2021 5:50 AM EST) AST, Plasma 21 11 - 32 U/L 05/04/2021 6:35 AM EST [facility] Blood Venous blood specimen / Unknown Venipuncture / Unknown 05/04/2021 5:50 AM EST 05/04/2021 6:01 AM EST us Gabby Pratt APRN, DNP LAB BLOOD ORDERABLES Fi nal Result Performing Organization Address [facility] de Phone Number [facility] [address] [place] [address] * (ABNORMAL) Alanine Aminotransferase, Plasma (05/04/2021 5:50 AM EST) Pathologist [facility] ALT, Plasma 57(H) 8 - 33 U/L 05/04/2021 6:35 AM EST [facility] Blood Venous blood specimen / Unknown Venipuncture / Unknown 05/04/2021 5:50 AM EST 05/04/2021 6:01 AM EST us Gabby Pratt APRN, NEGRA LAB BLOOD ORDERABLES Fi nal Result Performing Organization Address [facility] Phone Number [facility] [address] [place] [address] * POCT glucose meter (05/03/2021 8:17 PM EST) [facility] POCT Glucose 92 74 - 99 mg/dL 05/03/2021 8:20 PM EST [email or web address] Comment:Accuracy of a glucos e result [...] 05/03/2021 8:20 PM EST [facility] General Sales Manager ID Irene Cantor 05/03/2021 8:20 PM EST [facility] Device ID [id number] 05/03/2021 8:20 PM EST [facility] Specimen Type POC Capillary 05/03/2021 8:20 PM EST [facility] Blood Capillary blood specimen / Unknown 05/03/2021 8:17 PM EST 05/03/2021 8:20 PM EST Dory Slade MD LAB POINT OF CARE TEST DOCKED DEVICE UNSOLICITED RESULTS Final Result Performing Organization Address [facility] de Phone Number [facility] [address] [place] [address] * (ABNORMAL) POCT glucose meter (05/03/2021 5:35 [...] for testing. Comment 05/03/2021 5:40 PM EST [email or web address] General Sales Manager ID Dahlia Velasco 05/03/2021 5:40 PM EST [email or web address] Device ID [id number] 05/03/2021 5:40 PM EST [facility] Specimen Type POC Capillary 05/03/2021 5:40 PM EST [facility] Blood Capillary blood specimen / Unknown 05/03/2021 5:35 PM EST 05/03/2021 5:40 PM EST Dory Slade MD LAB POINT OF CARE TEST DOCKED DEVICE UNSOLICITED RESULTS Final Result Performing Organization Address [facility] de Phone Number [facility] [address] [place] [address] * POCT glucose meter (05/03/2021 12:14 PM [...] Comment 05/03/2021 12:15 PM EST [facility] General Sales Manager ID Keeley Womack 05/03/20 12:15 PM EST [facility] Device ID [id number] 05/03/2021 12:15 PM EST [facility] Specimen Type POC Capillary 05/03/2021 12:15 PM EST [facility] Blood Capillary blood specimen / Unknown 05/03/2021 12:14 PM EST 05/03/2021 12:15 PM EST us Dory Slade MD LAB POINT OF CARE TEST DOCKED DEVICE UNSOLICITED RESULTS Final Result Performing Organization Address City/[facility]/ZIP Co de Phone Number [facility] [address] [place] [address] * POCT glucose meter (05/03/2021 8:08 AM [...] Comment 05/03/2021 8:10 AM EST [facility] General Sales Manager ID Keeley Womack 05/03/20 8:10 AM EST [facility] Device ID [id number] 05/03/2021 8:10 AM EST [facility] Specimen Type POC Capillary 05/03/2021 8:10 AM EST [facility] Blood Capillary blood specimen / Unknown 05/03/2021 8:08 AM EST 05/03/2021 8:10 AM EST us Dory Slade MD LAB POINT OF CARE TEST DOCKED DEVICE UNSOLICITED RESULTS Final Result [facility] [address] [place] [address] * POCT glucose meter (05/03/2021 6:07 AM [...] Comment 05/03/2021 6:10 AM EST [facility] General Sales Manager ID Shaquille Mak 05/03/2021 6:10 AM EST [facility] Device ID [id number] 05/03/2021 6:10 AM EST [facility] Specimen Type POC Capillary 05/03/2021 6:10 AM EST [facility] Blood Capillary blood specimen / Unknown 05/03/2021 6:07 AM EST 05/03/2021 6:10 AM EST Dory Sldae MD LAB POINT OF CARE TEST DOCKED DEVICE UNSOLICITED RESULTS Final Result Performing Organization Address City/State/[facility] Co de Phone Number [facility] [address] [place] [address] * (ABNORMAL) POCT glucose meter (05/02/2021 9:15 [...] 05/02/2021 9:20 PM EST [facility] General Sales Manager ID Shana Bean 05/02/2021 9:20 PM EST [facility] Device ID [id number] 05/02/2021 9:20 PM EST [facility] Specimen Type POC Capillary 05/02/2021 9:20 PM EST [facility] Blood Capillary blood specimen / Unknown 05/02/2021 9:15 PM EST 05/02/2021 9:20 PM EST Dory Slade MD LAB POINT OF CARE TEST DOCKED DEVICE UNSOLICITED RESULTS Final Result Performing Organization Address City/[facility] de Phone Number [facility] [address] [place] [address] * (ABNORMAL) POCT glucose meter (05/02/2021 3:20 [...] for testing. Comment 05/02/2021 3:25 PM EST [facility] General Sales Manager ID Betty Coronado 05/02/2021 3:25 PM EST [email or web address] Device ID [id number] 05/02/2021 3:25 PM EST [facility] Specimen Type POC Capillary 05/02/2021 3:25 PM EST [facility] Blood Capillary blood specimen / Unknown 05/02/2021 3:20 PM EST 05/02/2021 3:25 PM EST Dory Slade MD LAB POINT OF CARE TEST DOCKED DEVICE UNSOLICITED RESULTS Final Result Performing Organization Address City/[facility] Co de Phone Number [facility] [address] [place] [address] * (ABNORMAL) POCT glucose meter (05/02/2021 11:26 [...] Comment 05/02/2021 11:45 AM EST [facility] General Sales Manager ID Betty Coronado 05/02/2021 11:45 AM EST [facility] Device ID [id number] 05/02/2021 11:45 AM EST [facility] Specimen Type POC Capillary 05/02/2021 11:45 AM EST [facility] Blood Capillary blood specimen / Unknown 05/02/2021 11:26 AM EST 05/02/2021 11:45 AM EST us Dory Slade MD LAB POINT OF CARE TEST DOCKED DEVICE UNSOLICITED RESULTS Final Result Performing Organization Address City/[facility]/ZIP Co de Phone Number [facility] [address] [place] [address] * (ABNORMAL) POCT glucose meter (05/02/2021 8:08 AM EST) [facility] POCT Glucose 118(H) 74 - 99 mg/dL 05/02/2021 8:15 AM EST [facility] Comment:Accuracy of a glucos e result [...] Comment 05/02/2021 8:15 AM EST [facility] General Sales Manager ID Betty Coronado 05/02/2021 8:15 AM EST [facility] Device ID [id number] 05/02/2021 8:15 AM EST [facility] Specimen Type POC Capillary 05/02/2021 8:15 AM EST [facility] Blood Capillary blood specimen / Unknown 05/02/2021 8:08 AM EST 05/02/2021 8:15 AM EST us Ji Atkins MD LAB POINT OF CARE TE ST DOCKED DEVICE UNSOLICITED RESULTS Final Result Performing Organization Address City/[facility]/ZIP Co de Phone Number [facility] [address] [place] [address] * (ABNORMAL) Alanine Aminotransferase, Plasma (05/02/2021 3:59 AM EST) ALT, Plasma 152(H) 8 - 33 U/L 05/02/2021 12:38 PM EST [facility] Blood Venous blood specimen / Unknown Venipuncture / Unknown 05/02/2021 3:59 AM EST 05/02/2021 4:21 AM EST us Gabby Pratt APRN, DNP LAB BLOOD ORDERABLES Fi nal Result Performing Organization Address [facility] de Phone Number [facility] [address] [place] [address] * (ABNORMAL) Aspartate Aminotransferase, Plasma (05/02/2021 3:59 AM EST) AST, Plasma 117(H) 11 - 32 U/L 05/02/2021 12:38 PM EST [facility] Blood Venous blood specimen / Unknown Venipuncture / Unknown 05/02/2021 3:59 AM EST 05/02/2021 4:21 AM EST us Gabby Pratt APRN, DNP LAB BLOOD ORDERABLES Fi nal Result Performing Organization Address [facility] Phone Number [facility] [address] [place] [address] * (ABNORMAL) Basic metabolic panel (05/02/2021 3:59 AM EST) Glucose, Plasma 130(H) 74 - 99 mg/dL 05/02/2021 4:50 AM EST [email or web address] BUN, Plasma 13 7 - 21 mg/dL 05/02/2021 4:50 AM EST [facility] Creatinine, Plasma 0.81 0.60 - 1.10 mg/dL 05/02/2021 4:50 AM EST [facility] BUN/Creatinine Ratio 16 05/02/2021 4:50 AM EST [facility] Sodium, Plasma 139 136 - 145 mmol/L 05/02/2021 4:50 AM EST [facility] Potassium, Plasma 4.3 3.7 - 4.8 mmol/L 05/02/2021 4:50 AM EST [facility] Chloride, Plasma 103 97 - 107 mmol/L 05/02/2021 4:50 AM EST [facility] CO2, Plasma 27 22 - 29 mmol/L 05/02/2021 4:50 AM EST [facility] Anion Gap 9 6 - 16 mmol/L 05/02/2021 4:50 AM EST [facility] Total Calcium, Plasma 8.7(L) 8.9 - 10.2 mg/dL 05/02/2021 4:50 AM EST [facility] eGFR >60 >60 mL/min/1.7 3m*2 05/02/2021 4:50 AM EST [facility] Comment:eGFR = estimated GFR ; eGFR [...] >60 mL/min/1.7 3m*2 05/02/2021 4:50 AM EST [facility] Comment:eGFR = estimated GFR ; eGFR [...] RN LAB BLOOD ORDERABLES Final Resul t [facility] [address] [place] [address] * (ABNORMAL) CBC W/O Differential (05/02/2021 3:59 AM EST) WBC Count 9.98 3.70 - 10.30 10*3/uL LAB HEMATOLOGY METHOD 05/02/2021 4:48 AM EST [facility] RBC Count 3.26(L) 3.90 - 5.20 10*6/uL LAB HEMATOLOGY METHOD 05/02/2021 4:48 AM EST [facility] HGB 10.1(L) 11.2 - 15.7 g/dL LAB HEMATOLOGY METHOD 05/02/2021 4:48 AM EST [facility] HCT 31.5(L) 34.0 - 45.0 % LAB HEMATOLOGY METHOD 05/02/2021 4:48 AM EST [facility] Platelet Count 243 155 - 369 10*3/uL LAB HEMATOLOGY METHOD 05/02/2021 4:48 AM EST [facility] MCV 97 79 - 98 fL LAB HEMATOLOGY METHOD 05/02/2021 4:48 AM EST [facility] MCH 31.0 26.0 - 32.0 pg LAB HEMATOLOGY METHOD 05/02/2021 4:48 AM EST [facility] MCHC 32.1 30.7 - 35.5 g/dL LAB HEMATOLOGY METHOD 05/02/2021 4:48 AM EST [facility] RDW 13.5 11.5 - 14.5 % LAB HEMATOLOGY METHOD 05/02/2021 4:48 AM EST [facility] MPV 11.1 8.8 - 12.5 fL LAB HEMATOLOGY METHOD 05/02/2021 4:48 AM EST [facility] nRBC 0.0 <=0.0 per 100 WBCs LAB HEMATOLOGY METHOD 05/02/2021 4:48 AM [facility] Blood Venous blood specimen / Unknown Venipuncture / Unknown 05/02/2021 3:59 AM EST 05/02/2021 4:25 AM EST us Ava Joseph RN LAB BLOOD ORDERABLES Final Resul t Performing Organization Address City/State/[facility] Co de Phone Number [facility] [address] [place] [id number] * (ABNORMAL) POCT glucose meter (05/01/2021 9:11 PM EST) POCT Glucose 141(H) 74 - 99 mg/dL 05/01/2021 9:15 PM EST [facility] Comment:Accuracy of a glucos e result [...] Comment 05/01/2021 9:15 PM EST [facility] General Sales Manager ID Kyra Lockwood 05/01/2021 9:15 PM EST [facility] Device ID [id number] 05/01/2021 9:15 PM EST [facility] Specimen Type POC Capillary 05/01/2021 9:15 PM EST [facility] Blood Capillary blood specimen / Unknown 05/01/2021 9:11 PM EST 05/01/2021 9:15 PM EST us Ji Atkins MD LAB POINT OF CARE TE ST DOCKED DEVICE UNSOLICITED RESULTS Final Result Performing Organization Address City/State/[facility] Co de Phone Number [facility] [address] [place] [address] * XR Femur Left 2+ Views (05/01/2021 [...] LEFT 2+ VIEWS ordered by JI ATKINS [id number] CLINICAL INDICATION: post op TECHNIQUE: XR FEMUR [...] FEMUR LEFT 2+ VIEWS ordered by JI [id number] CLINICAL INDICATION: post op TECHNIQUE: XR FEMUR [...] for testing. Comment 05/01/2021 3:55 PM EST [email or web address] General Sales Manager ID Tresa Jones 021 3:55 PM EST [email or web address] Device ID [id number] 05/01/2021 3:55 PM EST [email or web address] Specimen Type POC Capillary 05/01/2021 3:55 PM EST [email or web address] Blood Capillary blood specimen / Unknown 05/01/2021 3:53 PM EST 05/01/2021 3:55 PM EST Ji Atkins MD LAB POINT OF CARE TE ST DOCKED DEVICE UNSOLICITED RESULTS Final Result Performing Organization Address City/[facility] Co de Phone Number [facility] [address] [place] [address] * FL Less than 1 Hour Intraoperative (05/01/2021 3:26 PM EST) Narrative IMAGING - 05/01/2021 3:26 PM EST Images were obtained for surgical purposes. ??See Bebeto Flynn's surgical note in the the patient's chart for the findings. Bebeto Flynn MD IMG FLUOROSCOPY PROCEDURES Porsche l Result IMAGING * Hemoglobin A1c (05/01/2021 2:21 AM EST) Hemoglobin A1c 5.5 <5.7 % 05/01/2021 12:36 PM EST [facility] Blood Venous blood specimen / Unknown Venipuncture / Unknown 05/01/2021 2:21 AM EST 05/01/2021 2:26 AM EST Narrative [facility] - 05/01/2021 12:36 PM EST [facility] Interpretive Data: Diagnosis of Diabetes: Diabetic > or = 6.5% Pre-diabetic 5.7 to 6.4% Non-diabetic < or = 5.6% Glycemic Targets for Type I and Type II Diabetics: Non- Adults <7.0% Adults <6.0% Children and Adolescents <7.5% Source: ??[place] [employer]. Standards of medical care in diabetes,2017. Diabetes Care.2017:40 (suppl 1):S1-S135. HbA1c assay performed by an ion-exchange chromatography method that is certified traceable to the DCCT. Ji Atkins MD LAB BLOOD ORDERABLES Final Re sult [email or web address] [address] [place] [address] * Protime-INR (05/01/2021 2:21 AM EST) Prothrombin Time 13.0 12.0 - 14.3 sec LAB COAGULATION METHOD 05/01/2021 2:59 AM EST [email or web address] INR 1.0 0.9 - 1.1 LAB COAGULATION METHOD 05/01/2021 2:59 AM EST [email or web address] Blood Venous blood specimen / Unknown Venipuncture / Unknown 05/01/2021 2:21 AM EST 05/01/2021 2:26 AM EST Narrative [facility] - 05/01/2021 2:59 AM EST OPTIMAL INR RANGES FOR PATIENT ON ORAL ANTICOAGULANT THERAPY Prevention of venous thromboembolism ?INR 2.0 to 3.0 In patients with heart disease: Atrial fibrillation ?INR 2.0 to 3.0 Valvular heart disease ? INR 2.0 to 3.0 Tissue heart valves ?INR 2.0 to 3.0 Mechanical prosthetic valves ? INR 2.5 to 3.5 Prevention of recurrent GA ? INR 2.5 to 3.5 Ji Atkins MD LAB BLOOD ORDERABLES Final Re sult Performing Organization Address [facility] de Phone Number [facility] [address] [place] [address] * Phosphorus (05/01/2021 2:21 AM EST) Phosphorus, Plasma 3.8 2.5 - 4.5 mg/dL 05/01/2021 2:56 AM EST [facility] Blood Venous blood specimen / Unknown Venipuncture / Unknown 05/01/2021 2:21 AM EST 05/01/2021 2:27 AM EST Ji Atkins MD LAB BLOOD ORDERABLES Final Re sult Performing Organization Address [facility] [facility] Phone Number [facility] [address] [place] [address] * (ABNORMAL) Magnesium (05/01/2021 2:21 AM EST) Magnesium, Plasma 1.8(L) 1.9 - 2.4 mg/dL 05/01/2021 2:56 AM EST [facility] Blood Venous blood specimen / Unknown Venipuncture / Unknown 05/01/2021 2:21 AM EST 05/01/2021 2:27 AM EST Ji Atkins MD LAB BLOOD ORDERABLES Final Re sult Performing Organization Address [facility] de Phone Number [facility] [address] [place] [address] * (ABNORMAL) CBC (05/01/2021 2:21 AM EST) WBC Count 10.61(H) 3.70 - 10.30 10*3/uL LAB HEMATOLOGY METHOD 05/01/2021 2:34 AM EST [facility] RBC Count 4.03 3.90 - 5.20 10*6/uL LAB HEMATOLOGY METHOD 05/01/2021 2:34 AM EST [facility] HGB 12.1 11.2 - 15.7 g/dL LAB HEMATOLOGY METHOD 05/01/2021 2:34 AM EST [facility] HCT 37.9 34.0 - 45.0 % LAB HEMATOLOGY METHOD 05/01/2021 2:34 AM EST [facility] Platelet Count 289 155 - 369 10*3/uL LAB HEMATOLOGY METHOD 05/01/2021 2:34 AM EST [facility] MCV 94 79 - 98 fL LAB HEMATOLOGY METHOD 05/01/2021 2:34 AM EST [facility] MCH 30.0 26.0 - 32.0 pg LAB HEMATOLOGY METHOD 05/01/2021 2:34 AM EST [facility] MCHC 31.9 30.7 - 35.5 g/dL LAB HEMATOLOGY METHOD 05/01/2021 2:34 AM EST [facility] RDW 13.6 11.5 - 14.5 % LAB HEMATOLOGY METHOD 05/01/2021 2:34 AM EST [facility] MPV 10.3 8.8 - 12.5 fL LAB HEMATOLOGY METHOD 05/01/2021 2:34 AM EST [facility] nRBC 0.0 <=0.0 per 100 WBCs LAB HEMATOLOGY METHOD 05/01/2021 2:34 AM EST [facility] Blood Venous blood specimen / Unknown Venipuncture / Unknown 05/01/2021 2:21 AM EST 05/01/2021 2:26 AM EST us Ji Atkins MD LAB BLOOD ORDERABLES Final Re sult [facility] [address] [place] [address] * (ABNORMAL) Basic Metabolic Panel (05/01/2021 2:21 AM EST) Glucose, Plasma 137(H) 74 - 99 mg/dL 05/01/2021 2:56 AM EST [facility] BUN, Plasma 20 7 - 21 mg/dL 05/01/2021 2:56 AM EST [facility] Creatinine, Plasma 0.85 0.60 - 1.10 mg/dL 05/01/2021 2:56 AM EST [facility] BUN/Creatinine Ratio 24 05/01/2021 2:56 AM EST [facility] Sodium, Plasma 140 136 - 145 mmol/L 05/01/2021 2:56 AM EST [facility] Potassium, Plasma 4.3 3.7 - 4.8 mmol/L 05/01/2021 2:56 AM EST [facility] Chloride, Plasma 105 97 - 107 mmol/L 05/01/2021 2:56 AM EST [facility] CO2, Plasma 23 22 - 29 mmol/L 05/01/2021 2:56 AM EST [facility] Anion Gap 12 6 - 16 mmol/L 05/01/2021 2:56 AM EST [facility] Total Calcium, Plasma 8.7(L) 8.9 - 10.2 mg/dL 05/01/2021 2:56 AM EST [facility] eGFR >60 >60 mL/min/1.7 3m*2 05/01/2021 2:56 AM EST [facility] Comment:eGFR = estimated GFR ; eGFR [...] >60 mL/min/1.7 3m*2 05/01/2021 2:56 AM EST [facility] Comment:eGFR = estimated GFR ; eGFR [...] MD LAB BLOOD ORDERABLES Final Re sult [facility] [address] [place] [address] * (ABNORMAL) POCT glucose meter (04/30/2021 11:44 [...] Comment 04/30/2021 11:50 PM EST [facility] General Sales Manager ID Cassie Ford 04/30/2021 11:50 PM EST [facility] Device ID [id number] 04/30/2021 11:50 PM EST [facility] Specimen Type POC Capillary 04/30/2021 11:50 PM EST [facility] Blood Capillary blood specimen / Unknown 04/30/2021 11:44 PM EST 04/30/2021 11:50 PM EST Ji Atkins MD LAB POINT OF CARE TE ST DOCKED DEVICE UNSOLICITED RESULTS Final Result [facility] [address] [place] [address] * Lactate, venous (04/30/2021 8:26 PM EST) Pathologist [facility] Lactate, Venous, Whole Blood 0.9 0.5 - 2.2 mmol/L LAB HEMATOLOGY METHOD 04/30/2021 8:32 PM EST [facility] Blood Venous blood specimen / Unknown Venipuncture / Unknown 04/30/2021 8:26 PM EST 04/30/2021 8:30 PM EST Clay Lugo MD LAB BLOOD ORDERABLES Final Resul t [facility] [address] [place] [address] * CT Head wo IV Contrast (04/30/2021 [...] error, please notify the sender immediately at [phone] and permanently delete the original report and destroy any copies or printouts. Narrative 04/30/2021 5:12 PM EST [facility] ? - Phone [facility] NAME: Ambika Moscoso ?? DATE OF EXAM: 04/30/2021 Patient No: ??[id number] Physician: ??Carlo^Ji Date of : ??1965 Past [...] Soft Tissues: Mild left parietal scalp contusion. ??Ekuk lens replacements. Skull: There are no calvarial destructive lesions or fractures. Sinuses and Mastoids: No significant paranasal sinus disease. ??Minimal mucosal thickening in the left sphenoid sinus. ??The mastoid air cells are clear. Procedure Note Wes Biswas MD - 04/30/2021 [facility] - Phone [facility] NAME: Ambika Moscoso DATE OF EXAM: 04/30/2021 Patient No: [id number] Physician: Palmer Date of : 1965 Past [...] Soft Tissues: Mild left parietal scalp contusion. Ekuk lensreplacements. Skull: There are no calvarial destructive [...] in error, pleasenotify the sender immediately at [phone] and permanently delete theoriginal report and destroy [...] WO IV CONTRAST ordered by CLAY LUGO, [id number] CLINICAL INDICATION: Fracture, knee TECHNIQUE: ?? Multiple [...] LEFT WO IV CONTRAST ordered by CLAY LUGO,[id number] CLINICAL INDICATION: Fracture, knee TECHNIQUE: Multiple axial [...] Comment 04/30/2021 4:20 PM EST [facility] General Sales Manager ID Enoch Baptiste 04/30/2021 4:20 PM EST [facility] Device ID [id number] 04/30/2021 4:20 PM EST [facility] Specimen Type POC Capillary 04/30/2021 4:20 PM EST [facility] Blood Capillary blood specimen / Unknown 04/30/2021 4:15 PM EST 04/30/2021 4:20 PM EST Ji Atkins MD LAB POINT OF CARE TE ST DOCKED DEVICE UNSOLICITED RESULTS Final Result Performing Organization Address City/[facility]/ZIP Co de Phone Number [facility] [address] [place] [address] * (ABNORMAL) Lactate, venous (04/30/2021 3:36 PM EST) Pathologist [facility] Lactate, Venous, Whole Blood 2.7(H) 0.5 - 2.2 mmol/L LAB HEMATOLOGY METHOD 04/30/2021 3:42 PM EST [facility] Blood Venous blood specimen / Unknown Venipuncture / Unknown 04/30/2021 3:36 PM EST 04/30/2021 3:41 PM EST us Clay Lugo MD LAB BLOOD ORDERABLES Final Resul t Performing Organization Address City/[facility]/ZIP Co de Phone Number [facility] [address] [place] [address] * XR Pelvis 1 or 2 Views (04/30/2021 3:29 PM EST) Anatomical Region Laterality Modality Body, Pelvis Digital Radiogra phy Impressions 04/30/2021 3:39 PM EST No acute osseous findings CRITICAL RESULT: ?? No. COMMUNICATION: Per this written report. Signed by Rosanna Deng on ??04/30/2021 3:39 PM Narrative 04/30/2021 3:39 PM EST Exam/Procedure: XR PELVIS 1 OR 2 VIEWS ordered by CLAY LUGO, [id number] CLINICAL INDICATION: femur fracture, needs AP pelvis TECHNIQUE: XR PELVIS 1 OR 2 VIEWS COMPARISON: None. FINDINGS: No acute fracture or malalignment. Procedure Note Rosanna Deng MD - 04/30/2021 Exam/Procedure: XR PELVIS 1 OR 2 VIEWS ordered by CLAY LUGO, [id number] CLINICAL INDICATION: femur fracture, needs AP pelvis [...] recommendations. This test was performed using the [employer] Alinity m SARS CoV-2 assay, a PCR-based [...] MICROBIOLOGY - GENERAL ORD ERABLES Final Result [facility] [address] [place] [address] * XR Chest 1 View (04/30/2021 2:59 PM EST) Anatomical Region Laterality Modality Chest Digital Radiogra phy Impressions 04/30/2021 3:01 PM EST No acute findings CRITICAL RESULT: ?? No. COMMUNICATION: Per this written report. Signed by Rosanna Deng on ??04/30/2021 3:01 PM Narrative 04/30/2021 3:01 PM EST Exam/Procedure: XR CHEST 1 VIEW ordered by SAMSON NGUYEN, [id number] CLINICAL INDICATION: preop TECHNIQUE: XR CHEST 1 VIEW COMPARISON: None. FINDINGS: Lungs are clear without evidence of focal consolidation or parenchymal opacities. No evidence of a pleural effusion or pneumothorax. Cardiac and mediastinal silhouette are within normal limits. No acute osseous abnormalities. Procedure Note Rosanna Deng MD - 04/30/2021 Exam/Procedure: XR CHEST 1 VIEW ordered by SAMSON NGUYEN, [id number] CLINICAL INDICATION: preop TECHNIQUE: XR CHEST 1 [...] TEST ORDERABLES Final Result [facility] [address] [place] [address], * (ABNORMAL) CBC w/diff (04/30/2021 2:20 PM EST) WBC Count 14.68(H) 3.70 - 10.30 10*3/uL LAB HEMATOLOGY METHOD 04/30/2021 2:31 PM EST [facility] RBC Count 4.33 3.90 - 5.20 10*6/uL LAB HEMATOLOGY METHOD 04/30/2021 2:31 PM EST [facility] HGB 13.5 11.2 - 15.7 g/dL LAB HEMATOLOGY METHOD 04/30/2021 2:31 PM EST [facility] HCT 40.3 34.0 - 45.0 % LAB HEMATOLOGY METHOD 04/30/2021 2:31 PM EST [facility] Platelet Count 326 155 - 369 10*3/uL LAB HEMATOLOGY METHOD 04/30/2021 2:31 PM EST [facility] MCV 93 79 - 98 fL LAB HEMATOLOGY METHOD 04/30/2021 2:31 PM EST [facility] MCH 31.2 26.0 - 32.0 pg LAB HEMATOLOGY METHOD 04/30/2021 2:31 PM EST [facility] MCHC 33.5 30.7 - 35.5 g/dL LAB HEMATOLOGY METHOD 04/30/2021 2:31 PM EST [facility] RDW 13.5 11.5 - 14.5 % LAB HEMATOLOGY METHOD 04/30/2021 2:31 PM EST [facility] MPV 10.7 8.8 - 12.5 fL LAB HEMATOLOGY METHOD 04/30/2021 2:31 PM EST [facility] nRBC 0.0 <=0.0 per 100 WBCs LAB HEMATOLOGY METHOD 04/30/2021 2:31 PM EST [facility] Differential Type Automated LAB HEMATOLOGY METHOD 04/30/2021 2:31 PM EST [facility] Neutrophils % 78.0 % LAB HEMATOLOGY METHOD 04/30/2021 2:31 PM EST [facility] Lymphocytes % 16.0 % LAB HEMATOLOGY METHOD 04/30/2021 2:31 PM EST [facility] Monocytes % 6.0 % LAB HEMATOLOGY METHOD 04/30/2021 2:31 PM EST [facility] Eosinophils % 0.0 % LAB HEMATOLOGY METHOD 04/30/2021 2:31 PM EST [facility] Basophils % 0.0 % LAB HEMATOLOGY METHOD 04/30/2021 2:31 PM EST [facility] Immature Granulocytes % 0.0 % LAB HEMATOLOGY METHOD 04/30/2021 2:31 PM EST [facility] Neutrophils Absolute 11.34(H) 1.60 - 6.10 10*3/uL LAB HEMATOLOGY METHOD 04/30/2021 2:31 PM EST [facility] Lymphocytes Absolute 2.28 1.20 - 3.90 10*3/uL LAB HEMATOLOGY METHOD 04/30/2021 2:31 PM EST [facility] Monocytes Absolute 0.91(H) 0.30 - 0.90 10*3/uL LAB HEMATOLOGY METHOD 04/30/2021 2:31 PM EST [facility] Eosinophils Absolute 0.03 0.00 - 0.50 10*3/uL LAB HEMATOLOGY METHOD 04/30/2021 2:31 PM EST [facility] Basophils Absolute 0.06 0.00 - 0.10 10*3/uL LAB HEMATOLOGY METHOD 04/30/2021 2:31 PM EST [facility] Immature Granulocytes Absolute 0.06 0.00 - 0.06 10*3/uL LAB HEMATOLOGY METHOD 04/30/2021 2:31 PM EST [facility] Blood Venous blood specimen / Unknown Venipuncture / Unknown 04/30/2021 2:20 PM EST 04/30/2021 2:25 PM EST [facility] - 04/30/2021 2:31 PM EST Therapeutic decision making should be based on absolute values, rather than percentages. us Samson Nguyen MD LAB BLOOD ORDERABLES Final Res ult [facility] [address] [place] [address] * (ABNORMAL) CMP (04/30/2021 2:19 PM EST) Glucose, Plasma 142(H) 74 - 99 mg/dL 04/30/2021 2:54 PM EST [facility] BUN, Plasma 23(H) 7 - 21 mg/dL 04/30/2021 2:54 PM EST [facility] Creatinine, Plasma 0.87 0.60 - 1.10 mg/dL 04/30/2021 2:54 PM EST [facility] BUN/Creatinine Ratio 26 04/30/2021 2:54 PM EST [facility] Sodium, Plasma 142 136 - 145 mmol/L 04/30/2021 2:54 PM EST [facility] Potassium, Plasma 4.2 3.7 - 4.8 mmol/L 04/30/2021 2:54 PM EST [facility] Chloride, Plasma 108(H) 97 - 107 mmol/L 04/30/2021 2:54 PM EST [facility] CO2, Plasma 19(L) 22 - 29 mmol/L 04/30/2021 2:54 PM EST [facility] Anion Gap 15 6 - 16 mmol/L 04/30/2021 2:54 PM EST [facility] Total Calcium, Plasma 9.1 8.9 - 10.2 mg/dL 04/30/2021 2:54 PM EST [facility] Total Protein 7.0 6.3 - 7.9 g/dL 04/30/2021 2:54 PM EST [facility] Albumin, Plasma 4.1 3.5 - 5.2 g/dL 04/30/2021 2:54 PM EST [facility] AST, Plasma 162(H) 11 - 32 U/L 04/30/2021 2:54 PM EST [facility] ALT, Plasma 73(H) 8 - 33 U/L 04/30/2021 2:54 PM EST [facility] Alkaline Phosphatase, Plasma 138 46 - 142 U/L 04/30/2021 2:54 PM EST [facility] Total Bilirubin, Plasma 0.6 0.2 - 1.1 mg/dL 04/30/2021 2:54 PM EST [facility] eGFR >60 >60 mL/min/1.7 3m*2 04/30/2021 2:54 PM EST [email or web address] Comment:eGFR = estimated GFR ; eGFR [...] >60 mL/min/1.7 3m*2 04/30/2021 2:54 PM EST [email or web address] Comment:eGFR = estimated GFR ; eGFR [...] ORDERABLES Final Res ult Performing Organization Address City/State/[facility] Co de Phone Number [facility] [address] [place] [address] * PT-INR (04/30/2021 2:19 PM EST) Prothrombin Time 12.4 12.0 - 14.3 sec LAB COAGULATION METHOD 04/30/2021 2:57 PM EST [email or web address] INR 1.0 0.9 - 1.1 LAB COAGULATION METHOD 04/30/2021 2:57 PM EST [email or web address] Blood Venous blood specimen / Unknown Venipuncture / Unknown 04/30/2021 2:19 PM EST 04/30/2021 2:25 PM EST Narrative [facility] - 04/30/2021 2:57 PM EST OPTIMAL INR RANGES FOR PATIENT ON ORAL ANTICOAGULANT THERAPY Prevention of venous thromboembolism ?INR 2.0 to 3.0 In patients with heart disease: Atrial fibrillation ?INR 2.0 to 3.0 Valvular heart disease ? INR 2.0 to 3.0 Tissue heart valves ?INR 2.0 to 3.0 Mechanical prosthetic valves ? INR 2.5 to 3.5 Prevention of recurrent GA ? INR 2.5 to 3.5 us Samson Nguyen MD LAB BLOOD ORDERABLES Final Res ult Performing Organization Address [facility] de Phone Number [facility]ALTHCARE [facility] [address] [place] [address] * EKG now - STAT (adult) (04/30/2021 2:08 PM EST) EKG DIAGNOSIS CLASS Normal MUSE ECG Ventricular Rate 87 BPM MUSE ECG Atrial Rate 87 BPM MUSE ECG UT Interval 120 ms MUSE ECG QRSD Interval 76 ms MUSE ECG QT Interval 374 ms MUSE ECG QTC Interval 450 ms MUSE ECG P [place] 48 degrees MUSE ECG R [place] 40 degrees MUSE ECG T Wave [place] 74 degrees MUSE ECG Diagnosis Poor data quality MUSE ECG Diagnosis Confirmed by Garcia Leonard ([id number]) on 05/01/2021 11:23:11 AM MUSE ECG 04/30/2021 2:08 PM EST 05/01/2021 11:23 AM EST us Samson Nguyen MD ECG ORDERABLES Final Result Performing Organization Address [facility] de Phone Number MUSE ECG * XR [...] LEFT 2+ VIEWS ordered by SAMSON NGUYEN [id number] CLINICAL INDICATION: fall, pain TECHNIQUE: XR TIBIA [...] FIBULA LEFT 2+ VIEWS ordered by SAMSON [id number] CLINICAL INDICATION: fall, pain TECHNIQUE: XR TIBIA [...] LEFT 2+ VIEWS ordered by SAMSON NGUYEN, [id number] CLINICAL INDICATION: fall, pain TECHNIQUE: XR TIBIA [...] FIBULA LEFT 2+ VIEWS ordered by SAMSON NGUYEN,[id number] CLINICAL INDICATION: fall, pain TECHNIQUE: XR TIBIA [...] LEFT 2+ VIEWS ordered by SAMSON NGUYEN, [id number] CLINICAL INDICATION: fall, pain TECHNIQUE: XR TIBIA [...] FIBULA LEFT 2+ VIEWS ordered by SAMSON NGUYEN,[id number] CLINICAL INDICATION: fall, pain TECHNIQUE: XR TIBIA [...] LEFT 2+ VIEWS ordered by SAMSON NGUYEN, [id number] CLINICAL INDICATION: fall, pain TECHNIQUE: XR TIBIA [...] FIBULA LEFT 2+ VIEWS ordered by SAMSON NGUYEN,[id number] CLINICAL INDICATION: fall, pain TECHNIQUE: XR TIBIA [...] left femur, unspecified fracture morphology, initial encounter ([facility]) Closed fracture of left distal femur ([facility]) Fall Unspecified fall Diabetes ([facility]) Type II or unspecified type diabetes mellitus without mention of complication, not stated as uncontrolled Elevated LFTs Other abnormal blood chemistry Lactic acidosis Acidosis HTN (hypertension) Unspecified essential hypertension Obesity Obesity, unspecified Fibromyalgia Unspecified myalgia and myositis Closed fracture of distal end of left femur, unspecified fracture morphology, initial encounter ([facility]) documented in this encounter Administered [...] 9:45 AM EST 1 tablet nystatin (Mycostatin) [id number] UNIT/GM powder 1 application Topical, 2 times [...] Provider: Reny Padron RN)[id number] (Given - Provider: Luic Mccann RN)1809 (Given - Provider: Luci Mccann [...] - Provider: Jennifer Bernard, DIANE) nystatin (Mycostatin) [id number] UNIT/GM powder 1 application Topical, 2 times [...] care documented in this encounter Care Teams Quick Service Technician Relationship Specialty Start Date End Date Salima Gonzáles DO [address] [place] [address] PCP - General 09/17/20 documented as of this encounter
--- OUTSIDE RECORDS SUMMARY | 2024-04-10 14:16 | XMS_ITS ---
Care Plan - [facility], [facility] Created on: April 10, 2024 Fadi Pratt Neetu Galo : 1965 Sex: Female Author Organization [facility] , [facility] Address [address] [place] [phone] Phone Care Team Providers Care Keyliner Name Role Phone Dereje PORTILLO, Gilberto Godfrey Unavailable [phone]
--- OUTSIDE RECORDS SUMMARY | 2024-04-10 14:16 | XMS_ITS | Encounter Summary ---
Author Organization [place] [address] Care Team Providers Care Mangle Tender Name Role Phone Unavailable Primary Care Provider Unavailabl e Encounter Details Date Type Department Care Team (Late st Contact Info) Description 09/19/2008 4:59 AM EDT - 09/19/2008 7:03 AM EDT Hospital Encounter HST EPIC CON UNK GRT Bebeto Walsh MD [address] [place] [address] [address] [facility] [address] Social History Tobacco Use Types Packs/Day [...] voltages in precordial leads Abnormal ECG ? Sewer Head- MANAV CASTRO ? Reading Physician- MANAV CASTRO ??MD ? Released Date Time- 09/19/081635 Procedure Note Sunil Manav Galo - 07/15/2009 Sinus rhythm. Low QRS voltages in precordial leads Abnormal ECG Sewer Head- MANAV CASTRO MD Reading Physician- MANAV CASTRO MD Released Date Time- 09/19/081635 Bebeto Walsh MD [facility] HISTORICAL Fi nal Result * XR CHEST PORTABLE GC (09/19/2008 5:00 AM EDT) Anatomical Region Laterality Modality Other 09/19/2008 5:00 AM EDT Narrative 09/19/2008 8:54 AM EDT Examinations of the chest Indications- ??Pain. History- Pain. Single frontal view of the chest demonstrates the heart size to be within normal limits. There is no infiltrate. Impression- No infiltrate. ? Sewer Head- SCARLET TENA ? Reading Physician- FORREST ALEXANDRA ??M.D. ? Released Date Time- 09/19/08 1138 Procedure Note Forrest Alexandra - 07/15/2009 Examinations of the chest Indications- Pain. History- Pain. Single frontal view of the chest demonstrates the heart size to be within normal limits. There is no infiltrate. Impression- No infiltrate. Sewer Head- SCARLET Byrd Physician- FORREST ALEXANDRA M.D. Released Date Time- 09/19/08 1138 Bebeto Walsh MD [facility] al Result documented in this encounter Visit Diagnoses Not on filedocumented in this encounter
--- OUTSIDE RECORDS SUMMARY | 2024-04-10 14:16 | XMS_ITS | Referral Summary ---
Author Organization [facility] [place] [address] Care Team Providers Care Wood Cut Engraver Name Role Phone Unavailable Primary Care Provider [...]
== END 2024-04-10 23:59 | disposition home or self-care (01) ==
LOC: SC 14:10
PROVIDERS: Visit Provider Specialist/Technologist
DX: Z00.00 Encounter for general adult medical examination without abnormal findings (principal)

== ENCOUNTER 2024-04-23 10:45 | Outpatient (CLI) | payer MEDICARE, SELFPAY ==
--- NOTE | 2024-04-23 10:53 | XR_ITS ---
FINAL REPORT CLINICAL HISTORY: Foot Pain FINDINGS: Left foot Three views were obtained. There is no fracture or dislocation. The joint spaces appear normal. No soft tissue abnormality is identified. There is mild plantar and posterior calcaneal spurring. Pes planus deformity is identified. IMPRESSION: No acute process. Reviewed, Interpreted and Dictated by Renu Ovalle MD Transcribed by Makenna Covarrubias Authenticated and [facility] [place] [place]
--- NOTE | 2024-04-23 11:05 | XR_ITS ---
FINAL REPORT CLINICAL HISTORY: ELBOW PAIN fell from ladder FINDINGS: Right elbow Three views were obtained. There is no fracture or dislocation. The joint spaces appear normal. There is corticated calcification adjacent to the lateral epicondyle which can be seen with chronic epicondylitis. IMPRESSION: No acute process. Findings suggest chronic lateral epicondylitis. Reviewed, Interpreted and Dictated by Renu Ovalle MD Transcribed by Makenna Covarrubias Authenticated and [facility]
== END 2024-04-23 23:59 | disposition home or self-care (01) ==
PROVIDERS: PCP Family Medicine; Visit Provider Podiatrist
DX: M79.672 Pain in left foot (principal); M25.521 Pain in right elbow
CPT/HCPCS: 73080; 73630

== ENCOUNTER 2024-11-25 21:33 | Observation (INO) | payer MEDICARE, SELFPAY ==
--- OUTSIDE RECORDS SUMMARY | 2024-11-25 21:46 | XMS_ITS | Encounter Summary ---
Author Organization [employer] ([place], [place], [place], [place]) Address [address] [place] [address] Care Team Providers Care Campus Police Officer Name Role Phone Salima Gonzáles DO Primary Care Provider [phone] Encounter Details Date Type Department Care Team (Late st Contact Info) Description 10/05/2020 Transcribed Document [facility] [place] Family Medicine [address] [place] [address] ProviderQuincy MD [address] [place], [place] [id number] Social History Tobacco Use Types Packs/Day Years [...] on filedocumented in this encounter Care Teams Campus Police Officer Relationship Specialty Start Date End Date Salima Gonzáles, DO [address] [place] [address] PCP - General Family Medicine 02/09/23 documented as of this encounter
--- OUTSIDE RECORDS SUMMARY | 2024-11-25 21:46 | XMS_ITS | Encounter Summary ---
Author Organization [employer] ([place], [place], [place], [place]) Address [address] [place] [address] Care Team Providers Care Radiotelegrapher Name Role Phone AnujSalima somers Tate SWANN Primary Care Provider [phone] Encounter Details Date Type Department Care Team (Late st Contact Info) Description 10/05/2020 Transcribed Document [facility] [place] [address] [place] [address] ProviderQuincy MD [address] [place], [place] [id number] Social History Tobacco Use Types Packs/Day Years [...] on filedocumented in this encounter Care Teams Radiotelegrapher Relationship Specialty Start Date End Date Salima Gonzáles, [address] [address] PCP - General Family Medicine 02/09/23 documented as of this encounter
--- OUTSIDE RECORDS SUMMARY | 2024-11-25 21:47 | XMS_ITS | Encounter Summary ---
Author Organization [employer] ([place], [place], [place], [place]) Address [address] [place] [address] Care Team Providers Care Delivery Tech Name Role Phone Eliecer Salima Tate SWANN Primary Care Provider [phone] Encounter Details Date Type Department Care Team (Late st Contact Info) Description 10/09/2020 Transcribed Document [facility] [place] [address] [place] [address] ProviderQuincy MD [address] [place], [place] [phone] Social History Tobacco Use Types Packs/Day Years [...] Policy Numbers : Insurance 1 Health Plan: [employer] RE[employer] Policy Number: [id number] Authorization Number: Insurance Primary Name : [employer] REPL Policy Number: [id number] Authorization Status-Primary : Awaiting callback Reference Number-Primary : [id number] Authorized Service Begin Date-Primary : 10/03/2020 EDT Authorization Comments-Primary : Email sent to madelyn Mathew Authorization Comments-Primary : Comment 1: Clinicals faxed via [employer] for IP approval (DEISY LIRA RN 10/05/2020 14:13) Comment 2: Clinicals submitted via [employer] for IP approval (DEISY LIRA RN 10/04/2020 08:24) PING HOFFMANN RN - 10/09/2020 15:11 EDT Electronically signed by [facility] Conversion Executive Chairman Cerner at 08/23/2022 10:52 AM CDT documented in this encounter Plan of Treatment Not on file documented as of this encounter Visit Diagnoses Not on filedocumented in this encounter Care Teams Delivery Tech Relationship Specialty Start Date End Date Salima Gonzáles, [address] [address] PCP - General Family Medicine 02/09/23 documented as of this encounter
--- OUTSIDE RECORDS SUMMARY | 2024-11-25 21:47 | XMS_ITS | Encounter Summary ---
Author Organization [employer] ([place], [place], [place], [place]) Address [address] [place] [address] Care Team Providers Care Order Packer Or Packager Name Role Phone Salima Gonzáles DO Primary Care Provider [phone] Encounter Details Date Type Department Care Team (Late st Contact Info) Description 10/05/2020 Transcribed Document [facility] [place] Family Medicine [address] [place] [address] ProviderQuincy MD [address] [place], [place] [id number] Social History Tobacco Use Types Packs/Day Years [...] EDT Electronically signed by Nuzhat Barahona Conversion Talent Development Consultant Cerner at 08/23/2022 11:17 AM CDT documented in this encounter Plan of Treatment Not on file documented as of this encounter Visit Diagnoses Not on filedocumented in this encounter Care Teams Order Packer Or Packager Relationship Specialty Start Date End Date Salima Gonzáles DO [address] [facility] [place] [address] PCP - General Family Medicine 02/09/23 documented as of this encounter
--- OUTSIDE RECORDS SUMMARY | 2024-11-25 21:47 | XMS_ITS | Encounter Summary ---
Author Organization [employer] ([place], [place], [place], [place]) Address [address] [place] [address] Care Team Providers Care Fresco Artist Name Role Phone Eliecer Salima Tate SWANN Primary Care Provider [phone] Encounter Details Date Type Department Care Team (Late st Contact Info) Description 10/04/2020 Transcribed Document [facility] [place] [facility] [place] [address] ProviderQuincy MD [address] [place], [place] [id number] Social History Tobacco Use Types Packs/Day Years [...] Left renal calculus. PLAN: Ureteroscopy with laser. /[id number] Gatito Menendez MD FP/AQ / FP / MODL /[id number] Electronically signed by [facility] Conversion Imaging Specialist Cerner at 08/23/2022 11:00 AM CDT documented in this encounter Plan of Treatment Not on file documented as of this encounter Visit Diagnoses Not on filedocumented in this encounter Care Teams Fresco Artist Relationship Specialty Start Date End Date Salima Gonzáles, 8 [facility] [address] [place] [address] PCP - General Family Medicine 02/09/23 documented as of this encounter
--- OUTSIDE RECORDS SUMMARY | 2024-11-25 21:47 | XMS_ITS | Encounter Summary ---
Author Organization [employer] ([place], [place], [place], [place]) Address [address] [place] [address] Care Team Providers Care Branch Operations Coordinator Name Role Phone Salima Gonzáles DO Primary Care Provider [phone] Encounter Details Date Type Department Care Team (Late st Contact Info) Description 10/08/2019 Transcribed Document [facility] [place] Family Medicine [address] [place] [address] ProviderQuincy MD [address] [place] [address] Social History Tobacco Use Types Packs/Day [...] MD - 10/08/2019 10:26 AM CDT [facility] [place] [address] AMBIKA PIERRE :1965 Visit Time:10/08/2019 What [...] office, November 09 at 11:00am Where: [address] [id number]- Medications What How Much When Instructions Next [...] serving. ??? Talk with a diet and nutritionalist (dietitian) if you have questions about specific [...] Bulgur wheat. Millet. Quinoa. Bran muffins. Popcorn. Ward wafer crackers. Meats and other proteins Green Grass, kidney, and cox beans. Soybeans. Split peas. [...] Cream cheese. Sour cream. Fats and oils [place]. Beverages Soft drinks. Other foods Cakes and [...] 04/23/2006 Document Revised: 02/25/2018 Document Reviewed: 02/25/2018 [employer] Patient Education ?? 2019 [employer] Gastritis, Adult Gastritis is swelling (inflammation) of [...] these instructions at home: Medicines ??? Take jxrv-tuw-duzqnmb and prescription medicines only as told by [...] 10/09/2008 Document Revised: 09/10/2018 Document Reviewed: 09/10/2018 [employer] Patient Education ?? 2019 [employer] Colitis Colitis is inflammation of the colon. [...] you start to feel better. ??? Take fhxz-mgx-uxgkkim and prescription medicines only as told by [...] 05/31/2005 Document Revised: 10/24/2018 Document Reviewed: 10/24/2018 [employer] Interactive Patient Education ?? 2019 [employer] Inc. Hemorrhoids Hemorrhoids are swollen veins that [...] times a day. General instructions ??? Take titw-dxy-isflnsq and prescription medicines only as told by [...] 01/30/2009 Document Revised: 09/12/2018 Document Reviewed: 09/12/2018 [employer] Patient Education ?? 2019 [employer] Colonoscopy, Adult, Care After This sheet gives [...] soft and easy to digest. ??? Take ckgy-uhn-rhsklau or prescription medicines only as told by [...] 05/26/2011 Document Revised: 02/21/2018 Document Reviewed: 01/15/2017 [employer] Patient Education ?? 2019 [employer] Esophagogastroduodenoscopy, Care After Refer to this [...] 04/09/2013 Document Revised: 09/28/2016 Document Reviewed: 03/16/2016 [employer] Patient Education ?? 2019 [employer] metronidazole (me irma hawk) FIRST Metronidazole, Flagyl, [...] (more likely to occur while taking metronidazole detention): ?? numbness, tingling, or burning pain in [...] may report side effects to FDA at 1-533-OMZ-5390. What other drugs will affect metronidazole? Sometimes [...] drugs may affect metronidazole, including prescription and fyzu-pym-aonykxl medicines, vitamins, and herbal products. Not all [...] to ensure that the information provided by [employer]. ('[employer]') is accurate, up-to-date, and complete, but no guarantee is made to that effect. Drug information contained herein may be time sensitive. Ule information has been compiled for use by healthcare practitioners and consumers in the [place] and therefore Ule does not warrant that uses outside of the [place] are appropriate, unless specifically indicated otherwise. [employer] drug information does not endorse drugs, diagnose patients or recommend therapy. [employer] drug information is an informational resource designed [...] effective or appropriate for any given patient. [employer] does not assume any responsibility for any aspect of healthcare administered with the aid of information Ule provides. The information contained herein is not intended to cover all possible uses, directions, precautions, warnings, drug interactions, allergic reactions, or adverse effects. If you have questions about the drugs you are taking, check with your doctor, nurse or pharmacist. Copyright 7954-8634 [employer]. Version: 12.02. Revision Date: 02/25/2018. linaclotide (GENEVIEVE harris) Linzess What is the most important information [...] may report side effects to FDA at 7-610-FBS-2773. What other drugs will affect linaclotide? Other drugs may interact with linaclotide, including prescription, ydno-ljw-jenvzef, vitamin, and herbal products. Tell your doctor [...] to ensure that the information provided by [employer]. ('[employer]') is accurate, up-to-date, and complete, but no guarantee is made to that effect. Drug information contained herein may be time sensitive. Ule information has been compiled for use by healthcare practitioners and consumers in the [place] and therefore Ule does not warrant that uses outside of the [place] are appropriate, unless specifically indicated otherwise. [employer] drug information does not endorse drugs, diagnose patients or recommend therapy. [employer] drug information is an informational resource designed [...] effective or appropriate for any given patient. Ule does not assume any responsibility for any aspect of healthcare administered with the aid of information Ule provides. The information contained herein is not intended to cover all possible uses, directions, precautions, warnings, drug interactions, allergic reactions, or adverse effects. If you have questions about the drugs you are taking, check with your doctor, nurse or pharmacist. Copyright 1764-6972 [employer]. Version: 4.02. Revision Date: 01/23/2017. pantoprazole (oral/injection) [...] a broken bone while taking this medicine detention or more than once per day. What [...] may report side effects to FDA at 4-932-YPC-2693. What other drugs will affect pantoprazole? Tell your doctor about all your other medicines, especially: ?? digoxin; ?? methotrexate; or ?? a diuretic or 'water pill.' This list is not complete. Other drugs may affect pantoprazole, including prescription and vgdc-dyg-qrlhijm medicines, vitamins, and herbal products. Not all [...] to ensure that the information provided by [employer]. ('[employer]') is accurate, up-to-date, and complete, but no guarantee is made to that effect. Drug information contained herein may be time sensitive. Ule information has been compiled for use by healthcare practitioners and consumers in the [place] and therefore Ule does not warrant that uses outside of the [place] are appropriate, unless specifically indicated otherwise. [employer] drug information does not endorse drugs, diagnose patients or recommend therapy. [employer] drug information is an informational resource designed [...] effective or appropriate for any given patient. [facility] does not assume any responsibility for any aspect of healthcare administered with the aid of information [employer] provides. The information contained herein is not intended to cover all possible uses, directions, precautions, warnings, drug interactions, allergic reactions, or adverse effects. If you have questions about the drugs you are taking, check with your doctor, nurse or pharmacist. Copyright 6407-4817 [employer]. Version: 19.02. Revision Date: 10/30/2017. Emergency Awareness [...] Assistance with quitting is available by contacting 5-686-URGT-NOW. This is a free resource providing counseling, [...] was given the opportunity to ask questions. Patient/Fire Fighter Name: Patient/Fire Fighter Signature: Relationship to Patient: Clinician/Hospital Fire Fighter Signature: Date: Electronically signed by Nuzhat Barahona Conversion Security Operations Center Analyst Michael at 08/23/2022 10:58 AM CDT documented in this encounter Plan of Treatment Not on file documented as of this encounter Visit Diagnoses Not on filedocumented in this encounter Care Teams Branch Operations Coordinator Relationship Specialty Start Date End Date Salima Gonzáles, [address] [facility] [address] [place] [address] PCP - General Family Medicine 02/09/23 documented as of this encounter
--- OUTSIDE RECORDS SUMMARY | 2024-11-25 21:47 | XMS_ITS | Encounter Summary ---
Author Organization [email or web address] ([place], [place], [place], [place]) Address [address] [place] [address] Care Team Providers Care Sociology Instructor Name Role Phone Salima Gonzáles Primary Care Provider [phone] Encounter Details Date Type Department Care Team (Late st Contact Info) Description 10/04/2020 Transcribed Document [facility] [place] Family Medicine [address] [place] [address] ProviderQuincy MD [address] [place], [place] [id number] Social History Tobacco Use Types Packs/Day Years [...] on filedocumented in this encounter Care Teams Sociology Instructor Relationship Specialty Start Date End Date Salima Gonzáles DO [address] [address] PCP - General Family Medicine 02/09/23 documented as of this encounter
--- OUTSIDE RECORDS SUMMARY | 2024-11-25 21:47 | XMS_ITS | Encounter Summary ---
Author Organization [employer] ([place], [place], [place], [place]) Address [address] [place] [address] Care Team Providers Care Tutoring Assistant Name Role Phone Salima Mi DO Primary Care Provider [phone] Encounter Details Date Type Department Care Team (Late st Contact Info) Description 10/05/2020 Transcribed Document [facility] [place] [address] [place] [address] ProviderQuincy MD [address] [place], [place] [id number] Social History Tobacco Use Types Packs/Day Years Used Date Smoking Tobacco: Never Assessed Comments Unknown Sex and Gender Information Value Date Recorded Sex Assigned at Not on file Legal Sex Female 2:54 PM CDT Gender Identity Not on file Sexual Orientation Not on file documented as of this encounter Miscellaneous Notes * Cerner Conversion Note - Quincy Kate MD - 10/05/2020 2:33 PM CDT Patient: AMBIKA PIERRE Age: 54 Years Sex: Female : 1965 Admit Date 10/03/2020 18:06 Discharge Date No Discharge Date on Record Primary Care Provider SALIMA MI DO-[facility] Discharge Diagnosis COPD with asthma 10/05/2020 [...] ZAMBRANO MD-[facility]O - Within 3 months SALIMA MI DO-[facility] - Within 1 to 2 weeks Discharge [...] Order Consulting Physicians DONALDO DUFFY MD HADLEY, ANNABEL Boyle MD-URO ANGELY, MD VERONICA-ANS Current Diet Order Diet, Adult - Ordered -- Start: 10/05/20 8:17:00 EDT, 60 gm carbs:[id number] josue, GI Soft / Low Residue / [...] on filedocumented in this encounter Care Teams Tutoring Assistant Relationship Specialty Start Date End Date Salima Mi DO 8 [facility] [address] [place] [address] PCP - General Family Medicine 02/09/23 documented as of this encounter
--- OUTSIDE RECORDS SUMMARY | 2024-11-25 21:47 | XMS_ITS | Clinical Summary ---
[facility] Organization [facility] Address [address] [place] [address] Care Team Providers Care Pillar Man Name Role Phone ElieecrSalima Radha Primary Care Provider [phone] Allergies Active Allergy Reactions Criticality Noted Date [...] (120 MG) SUBCUTANEOUSLY ONCE a MONTH 11/14/19 Active multivitamin with minerals tablet tablet Take 1 tablet by mouth Daily. Active Nurtec 75 MG dispersible tablet DISSOLVE ONE TABLET in MOUTH DIRECTED NEEDED FOR MIGRAINE 10/17/19 Active Skyrizi Pen 150 MG/ML solution auto-injector 11/03/19 Active Continuous Blood Gluc Sensor (FreeStyle Niels 2 Sensor) [facility] DIRECTED FOR CONTINUOUS GLUCOSE MONITORING 01/24/20 [...] 09/05/2023 Mild CAD 09/05/2023 Assessment & Plan (09/09/2024 2:25 PM EDT): Mild CAD noted on coronary CTA from 03/27/2023. She is currently asymptomatic, she denies chest pain or shortness of breath. - Continue current medical therapy Assessment & Plan (09/05/2023 10:39 AM EDT): [...] of breath. Palpitations 12/13/2022 Assessment & Plan (09/09/2024 2:25 PM EDT): She has been experiencing palpitations and fast heart rate after eating large meals. The palpitations usually last 20 to 40 minutes. - Holter monitor for further evaluation Assessment & Plan (09/05/2023 10:48 AM EDT): [...] patient to restart PAP therapy and contact [employer] to find a better mask that does not cause migraines. 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 Encouraged patient to restart PAP therapy and contact [employer] to find a better mask that does not cause migraines. Resolved Problems Problem Noted Date Diagnosed Date Resolved Date Back pain 01/26/2024 01/27/2024 Encounters Date Type Department Care Team Description 10/07/2024 Results Follow-Up [facility] [address] [id number] Alea Juarez APRN 09/09/2024 10:40 AM EDT Ancillary Procedure [facility] [address] [id number] Palpitations 09/09/2024 10:15 AM EDT Office Visit [facility] [address] [phone] Alea Juarez APRN Palpitations (Primary Dx); Mild CAD 09/09/2024 Travel from Last 3 Months Immunizations Immunization Administration Dates Next Due Flublok 18+yrs 02/21/2020 [...] Physical Signs of Abuse Present no 01/26/2024 Comments No Sex and Gender Information Value Date Recorded Sex Assigned at Not on file Legal Sex Female 6:41 PM EDT Gender Identity Not on file Sexual Orientation Not on file Last Filed Vital Signs Vital Sign Reading Time Taken Comments Blood Pressure 98/68 09/09/2024 10:04 AM EDT Pulse 75 09/09/2024 10:04 AM EDT Temperature 36.2 C (97.2 F) 01/27/2024 12:08 PM EDT Respiratory Rate 16 01/27/2024 12:08 PM EDT Oxygen Saturation 97% 09/09/2024 10:04 AM EDT Inhaled Oxygen Concentration - - Weight 108 kg (239 lb) 09/09/2024 10:04 AM EDT Height 154.9 cm (5' 1 ) 09/09/2024 10:04 AM EDT Body Mass Index 45.16 09/09/2024 10:04 AM EDT Plan of Treatment Health Maintenance Due Date Last Done Comments Annual Gynecologic Pelvic an d Breast Exam 1965 DIABETIC EYE EXAM 1974 DIABETIC FOOT EXAM 1974 URINE MICROALBUMIN-CREATININ E RATIO (uACR) 1974 Hepatitis B (1 of 3 - 19+ 3- dose series) 12/21/1983 MAMMOGRAM 2004 COLOGUARD 2009 COLON CANCER SCREENING 5 YEA R SIGMOIDOSCOPY 2009 CT COLONOGRAPHY 2009 FECAL OCCULT BLOOD TEST 2009 FIT Testing (1 year) 2009 LUNG CANCER SCREENING 2014 ZOSTER VACCINE (1 of 2) 2014 ANNUAL WELLNESS VISIT 02/21/2017 HEPATITIS C SCREENING 02/21/2017 COVID-19 Vaccine ( - 2023-2 5 season) 2024 02/23/2022, 01/26/2021, 06/09/2020, Additional history exists HEMOGLOBIN A1C 10/09/2024 04/10/2024, 09/2023, 11/04/2021, Additional history exists INFLUENZA VACCINE 02/04/2025 02/07/2024, , 01/27/2022, Additional history exists TDAP/TD VACCINES (2 - Td or Tdap) 01/25/2028 018 COLONOSCOPY 10/05/2029 10/06/2019 COLORECTAL CANCER SCREENING 10/05/2029 Pneumococcal Vaccine 50+ Completed 01/27/2022, 09/2018 Procedures Procedure Name Priority Date/Time Associated Diagnosis Comments ECG 12-LEAD Routine 09/09/2024 12:38 PM EDT Palpitations HOLTER MONITOR >48HRS UP TO 7 DAYS HOOK-UP & INTERP Routine 09/09/2024 10:40 AM EDT Palpitations SCANNED - IMAGING 08/28/2024 from Last 3 Months Results * ECG 12-LEAD (09/09/2024 12:38 PM EDT) Narrative Katie Liu RegSched Rep - 09/09/2024 12:38 PM EDT Trautwein, Alea E, FINISHING RANGE SUPERVISOR 09/09/2024 2:35 PM ECG 12 Lead Date/Time: 09/09/2024 12:38 PM Performed by: Alea Juarez APRN Authorized by: Alea Juarez APRN Comparison: not compared with previous ECG Previous ECG: no previous ECG available Rhythm: sinus rhythm Rate: normal BPM: 60 Other findings: low voltage Clinical impression: abnormal EKG Clinical impression comment: Possible anerior myocardial infarction, probably old Procedure Note Alea Juarez APRN - 09/09/2024 10:15 AM EDT Images from the original note were not included. [facility] Provider Note Date: 09/09/2024 Name: Neetu Doherty : 1965 PCP: Salima Gonzáles DO Chief Complaint Patient presents with Coronary Artery Disease Hypertension Surgical Clearance Subjective History of Present Illness Neetu Doherty is a 58 y.o. female with past medical history ofhypertension, hypothyroidism, psoriatic arthritis, anxiety, diabetes, OSAand GERD who presents today for follow-up visit on palpitations. Patientreports that she has been experiencing increasing palpitations, that onlyoccur after eating. They usually occur after eating large meals and sugs09-45 minutes. She has been having significant GI issues recently. Shewas instructed to follow-up with cardiology due to the palpitations. Shefeels like she has been doing well from a cardiac standpoint. She denieschest pain, shortness of breath, lower extremity edema, dizziness orsyncope. She only experiences the palpitations after eating. She deniesany recent ER visits or hospitalizations for cardiac related problems. Cardiac/Sleep History 1. MAGDI intolerant to PAP therapy 2. HTN 3. HLD 4. Mild CAD 5. DM Holter monitor 08/01/2023- a relatively benign monitor study. Rarenonsustained SVT. Patient triggers corresponded with supraventricularcouplets or PACs. These were overall less than 1%. No life-threateningarrhythmias or pauses. Echocardiogram 02/08/2023-LVEF 66-70%. Left ventricular diastolic functionwas [...] moderate amount of total coronary plaque present. Reports Denies Chest Pain [] [x] Shortness of Air [] [x] Palpitations [x] [] Edema [] [x] Dizziness [] [x] Syncope [] [x] Allergies Allergen Reactions Cefdinir Shortness Of Breath and Unknown (See Comments) Causes trouble breathing Morphine And Codeine Hallucinations Current Outpatient Medications: albuterol (PROVENTIL) (2.5 MG/3ML) 0.083% nebulizer solution, Take 2.5mg by nebulization Every 4 (Four) Hours As Needed for Wheezing., Disp: ,Rfl: albuterol sulfate HFA 108 (90 Base) MCG/ACT inhaler, Inhale 2 puffsEvery 6 (Six) Hours As Needed., Disp: , Rfl: amoxicillin-clavulanate (AUGMENTIN) 875-125 MG per tablet, Take 1 tabletby mouth 2 (Two) Times a Day., Disp: 4 tablet, Rfl: 0 budesonide-formoterol (Symbicort) 80-4.5 MCG/ACT inhaler, Inhale 2 puffs2 (Two) Times a Day., Disp: 6.9 g, Rfl: 12 buPROPion SR (WELLBUTRIN SR) 150 MG 12 hr tablet, Take 1 tablet by mouth2 (Two) Times a Day., Disp: , Rfl: Continuous Blood Gluc Sensor (FreeStyle Niels 2 Sensor) [facility] [place] USE ASDIRECTED FOR CONTINUOUS GLUCOSE MONITORING, Disp: , Rfl: cyanocobalamin (VITAMIN B-12) 1000 MCG tablet, Take 1 tablet by mouthDaily., Disp: , Rfl: cyclobenzaprine (FLEXERIL) 10 MG tablet, Take 1 tablet by mouth 3(Three) Times a Day As Needed for Muscle Spasms., Disp: , Rfl: Diclofenac Sodium (VOLTAREN) 1 % gel gel, Place 4 g on the skin asdirected by provider 4 (Four) Times a Day., Disp: , Rfl: Emgality 120 MG/ML auto-injector [...] 1 tablet by mouth Daily., Disp: ,Rfl: hydrOXYzine (ATARAX) 10 MG tablet, Take 1 [...] 1 tablet by mouth Daily., Disp:, Rfl: montelukast (SINGULAIR) 10 MG tablet, Take 1 tablet by mouth EveryEvening., Disp: , Rfl: multivitamin with minerals tablet tablet, Take 1 tablet by mouth Daily.,Disp: , Rfl: Nurtec 75 MG dispersible tablet, DISSOLVE ONE TABLET in MOUTH ASDIRECTED NEEDED FOR MIGRAINE, Disp: , Rfl: pantoprazole (PROTONIX) 20 MG EC tablet, Take 1 tablet by mouth 2 (Two)Times a Day., Disp: , Rfl: polyethylene glycol (GoLYTELY) 236 g solution, , Disp: , Rfl: potassium chloride (MICRO-K) 10 MEQ CR capsule, Take 1 capsule by mouthDaily., Disp: , Rfl: pregabalin (LYRICA) 150 MG capsule, Take 1 capsule by mouth 2 (Two)Times a Day., Disp: , Rfl: SITagliptin (Januvia) 100 MG [...] 04/12/2022 Years since quittin.4 Passive exposure: Past Smokeless tobacco: Never Vaping Use Vaping status: Every Day Start date: 04/27/2022 Substances: Flavoring Devices: Disposable Passive vaping exposure: Yes Substance and Sexual Activity Alcohol use: No Drug use: No Sexual activity: Defer Objective Vital Signs: BP 98/68 Pulse 75 Ht 154.9 cm (61 ) Wt 108 kg (239 lb) BuJ226% BMI 45.16 kg/m Estimated body mass index is 45.16 kg/m as calculated from thefollowing: Height as of this encounter: 154.9 cm (61 ). Weight as of this encounter: 108 kg (239 lb). Physical Exam Vitals reviewed. Constitutional: Appearance: [...] Behavior: Behavior normal. ECG 12 Lead Date/Time: 09/09/2024 12:38 PM Performed by: Alea Juarez APRN Authorized by: Alea Juarez APRN Comparison: not compared withprevious ECG Previous ECG: no previous ECG available Rhythm: sinus rhythm Rate: normal BPM: 60 Other findings: low voltage Clinical impression: abnormal EKG Clinical impression comment: Possible anerior myocardial infarction,probably old Assessment and Plan Diagnoses and all orders for this visit: 1. Palpitations (Primary) Assessment & Plan: She has been experiencing palpitations and fast heart rate after eatinglarge meals. The palpitations usually last 20 to 40 minutes. - Holter monitor for further evaluation Orders: - Holter Monitor - 72 Hour Up To 15 Days; Future - ECG 12 Lead 2. Mild CAD Assessment & Plan: Mild CAD noted on coronary CTA from 03/27/2023. She is currentlyasymptomatic, she denies chest pain or shortness of breath. - Continue current medical therapy Recommendations: ER if symptoms increase and Report if any new/changingsymptoms immediately Follow Up Return in about 4 weeks (around 10/07/2024) for cardiac testing results. Patient was given instructions and counseling regarding her condition orfor health maintenance advice. Please see specific information pulled intothe AVS if appropriate. us Alea Juarez APRN ECG ORDERABLES Final Re sult * HOLTER MONITOR >48HRS UP TO 7 DAYS HOOK-UP & INTERP (09/09/2024 10:40 AM EDT) Heart rate (average) 77 CV SUBSTITUTED RESULTING AGENCY Heart rate minimum 51 CV SUBSTITUTED RESULTING AGENCY Heart rate maximum 180 CV SUBSTITUTED RESULTING AGENCY Anatomical Region Laterality Modality Ultrasound Narrative 10/06/2024 5:44 PM EDT Isolated NSVT episode and 3 beats nonsustained VT. Overall likely benign monitor. Study Description Monitor placed on patient by SHEREEN HESS MA on 09/09/2024 at 10:30 EDT. Instructions were provided to patient on use of holter monitor and duration of monitoring. The monitor was scanned on 10/06/2024. The patient was monitored for 3 days 20 hours and 36 minutes. Indications for this exam include palpitations. Average HR: 77. Min HR: 51. Max HR: 180. Study Impressions Isolated NSVT episode and 3 beats nonsustained VT. Overall likely benign monitor. Alea Juarez APRN [facility] Final Result * IMAGING SCANNED (08/28/2024) Anatomical Region Laterality Modality Radiographic Josselyn ging Alea Juarez APRN IMG DIAGNOSTIC IMAGING O RDERABLES Final Result from Last 3 Months Insurance [id number]M MEDICARE ADVANTAGE PPO Advance Directives * CPR (Attempt to Resuscitate) (Latest Code Status on File) Date Activated Date Inactivated Comments 01/26/2024 4:20 AM 01/27/2024 4:42 PM Question Answer Comments Code Status (Patient has no pulse and is not breathing): CPR (Attempt to Resuscitate) Medical Interventions (Patie nt has pulse or is breathing): Full Support Level Of Support Discussed With: Patient Care Teams Pillar Man Relationship Specialty Start Date End Date Salima Gonzáles DO [facility] [place] [address] PCP - General Family Medicine 02/21/17
--- OUTSIDE RECORDS SUMMARY | 2024-11-25 21:47 | XMS_ITS | Encounter Summary ---
Author Organization [employer] ([place], [place], [place], [place]) Address [address] [place] [address] Care Team Providers Care Hand Loom Weaver Name Role Phone Eliecer Salima Tate SWANN Primary Care Provider [phone] Encounter Details Date Type Department Care Team (Late st Contact Info) Description 10/05/2020 Transcribed Document [facility] [place] Medicine [address] [place] [address] ProviderQuincy MD [address] [place], [place] [id number] Social History Tobacco Use Types Packs/Day Years [...] On: 10/05/2020 14:02 EDT by EVONNE GABRIEL RN-Seeing Eye Dog Teacher Final Discharge Planning Discharge Arrangements : Patient Post-Acute Information Patient Name: AMBIKA PIERRE Gender: Female : [birth year] Age: 54 Years No Post-Acute Placement(s) Listed No Post-Acute Service(s) Listed No [place] Referral(s) Listed Transportation Needs : Family/Friend Follow Up Appointment Scheduled : Yes Is Patient High/Moderate Readmission Risk? : No Discharge To Care Management : Home/Residential/Detention or Self Care - EVONNE GABRIEL, DIANE-Seeing Eye Dog Teacher - 10/05/2020 14:02 EDT documented in this encounter Plan of Treatment Not on file documented as of this encounter Visit Diagnoses Not on filedocumented in this encounter Care Teams Hand Loom Weaver Relationship Specialty Start Date End Date Salima Gonzáles, [address] [facility] [address] [place] [address] PCP - General Family Medicine 02/09/23 documented as of this encounter
--- OUTSIDE RECORDS SUMMARY | 2024-11-25 21:47 | XMS_ITS | Encounter Summary ---
Author Organization [employer] ([place], [place], [place], [place]) Address [address] [place] [address] Care Team Providers Care Outside Sales Advertising Executive Name Role Phone Eliecer Salima Tate SWANN Primary Care Provider [phone] Encounter Details Date Type Department Care Team (Late st Contact Info) Description 10/05/2020 Transcribed Document [facility] [place] Family Medicine [address] [place] [address] ProviderQuincy MD [address] [place], [place] [id number] Social History Tobacco Use Types Packs/Day Years [...] these instructions at home: Medicines ??? Take cgaw-viy-qgqruzf and prescription medicines only as told by [...] provider. Document Revised: 09/09/2019 Document Reviewed: 09/09/2019 [employer] Patient Education ? 2019 [employer]. Ureteroscopy Ureteroscopy is a procedure to check [...] including vitamins, herbs, eye drops, creams, and lmwy-fvz-ccvpjbv medicines. ??? Any problems you or family [...] provider. Document Revised: 04/05/2018 Document Reviewed: 02/02/2017 [employer] Patient Education ? 2020 [employer]. Dietary Guidelines to Help Prevent Kidney Stones [...] Rhubarb. ? Beets. ? Potato chips and czech fries. ? Nuts. ??? If you regularly take a diuretic medicine, make sure to eat at least 1?2 fruits or vegetables high in potassium each day. These include: ? Avocado. ? Banana. ? Mesa, prune, carrot, or tomato juice. ? Baked [...] Casseroles. Pizza. Lasagna. Frozen meals. Potato chips. Hebrew fries. Summary ??? You can reduce your [...] provider. Document Revised: 08/13/2019 Document Reviewed: 04/03/2017 [employer] Patient Education ? 2019 [employer]. Electronically signed by [facility] Conversion Yoghurt Maker Cerner at 08/23/2022 11:12 AM CDT documented in this encounter Plan of Treatment Not on file documented as of this encounter Visit Diagnoses Not on filedocumented in this encounter Care Teams Outside Sales Advertising Executive Relationship Specialty Start Date End Date Salima Gonzáles, [address] [address] PCP - General Family Medicine 02/09/23 documented as of this encounter
--- OUTSIDE RECORDS SUMMARY | 2024-11-25 21:47 | XMS_ITS | Encounter Summary ---
Author Organization [employer] ([place], [place], [place]) Address [address] [place] [address] Care Team Providers Care Maintenance Team Leader Name Role Phone Salima Gonzáles DO Primary Care Provider [phone] Encounter Details Date Type Department Care Team (Late st Contact Info) Description 10/05/2020 Transcribed Document [facility] [place] [address] [place] [address] ProviderQuincy MD [address] [place], [place] [id number] Social History Tobacco Use Types Packs/Day Years Used Date Smoking Tobacco: Never Assessed Comments Unknown Sex and Gender Information Value Date Recorded Sex Assigned at Not on file Legal Sex Female 2:54 PM CDT Gender Identity Not on file Sexual Orientation Not on file documented as of this encounter Miscellaneous Notes * [employer] Conversion Note - Quincy Kate MD - 10/05/2020 2:28 PM CDT Stroke/Warfarin Instructions [...] on filedocumented in this encounter Care Teams Maintenance Team Leader Relationship Specialty Start Date End Date Salima Gonzáles DO [address] [place] [address] PCP - General Family Medicine 02/09/23 documented as of this encounter
--- OUTSIDE RECORDS SUMMARY | 2024-11-25 21:47 | XMS_ITS | Referral Summary ---
Author Organization [id number] ([place], [place], [place], [place]) Address [address] [place] [address] Care Team Providers Care Office Technician Name Role Phone Salima Gonzáles DO Primary Care Provider [phone] Social History Tobacco Use Types Packs/Day Years Used Date Smoking Tobacco: Never Assessed Comments Unknown Sex and Gender Information Value Date Recorded Sex Assigned at Not on file Legal Sex Female 2:54 PM CDT Gender Identity Not on file Sexual Orientation Not on file Plan of Treatment Not on file [facility] Care Teams Office Technician Relationship Specialty Start Date End Date Salima Gonzáles DO [address] [place] [address] PCP - General Family Medicine 02/09/23
--- OUTSIDE RECORDS SUMMARY | 2024-11-25 21:47 | XMS_ITS | Encounter Summary ---
Author Organization [employer] ([place], [place], [place], [place]) Address [address] [place] [address] Care Team Providers Care Biosolids Management Technician Name Role Phone Salima Gonzáles DO Primary Care Provider [phone] Encounter Details Date Type Department Care Team (Late st Contact Info) Description 10/05/2020 Transcribed Document [facility] [place] [address] [place] [address] ProviderQuincy MD [address] [place], [place] [id number] Social History Tobacco Use Types Packs/Day Years [...] on filedocumented in this encounter Care Teams Biosolids Management Technician Relationship Specialty Start Date End Date Salima Gonzáles, DO [address] [facility] [address] [place] [address] PCP - General Family Medicine 02/09/23 documented as of this encounter
--- OUTSIDE RECORDS SUMMARY | 2024-11-25 21:47 | XMS_ITS | Encounter Summary ---
Author Organization [employer] ([place], [place], [place], [place]) Address [address] [place] [address] Care Team Providers Care Auto Claim Representative Name Role Phone Eliecer Salima Tate SWANN Primary Care Provider [phone] Encounter Details Date Type Department Care Team (Late st Contact Info) Description 10/05/2020 Transcribed Document [facility] [place] Family Medicine [address] [place] [address] ProviderQuincy MD [address] [place], [place] [id number] Social History Tobacco Use Types Packs/Day Years [...] : Insurance 1 Health Plan: [facility] MED[facility] REPL Policy Number: [id number] Authorization Number: Insurance Primary Name : [place] MED[employer] REPL Policy Number: [id number] Authorization Status-Primary : Awaiting callback Reference Number-Primary : [id number] Authorized Service Begin Date-Primary : 10/03/2020 EDT Authorization Comments-Primary : Clinicals faxed via [employer] for IP approval Historical Authorization Comments-Primary : Comment 1: Clinicals submitted via [employer] for IP approval (DEISY LIRA RN 10/04/2020 08:24) DEISY LIRA RN - 10/05/2020 14:13 EDT Electronically signed by [facility] Conversion Millwork Estimator Cerner at 08/23/2022 11:14 AM CDT documented in this encounter Plan of Treatment Not on file documented as of this encounter Visit Diagnoses Not on filedocumented in this encounter Care Teams Auto Claim Representative Relationship Specialty Start Date End Date Salima Gonzáles DO [address] [place] [address] PCP - General Family Medicine 02/09/23 documented as of this encounter
--- OUTSIDE RECORDS SUMMARY | 2024-11-25 21:47 | XMS_ITS | Encounter Summary ---
Author Organization [employer] ([place], [place], [place], [place]) Address [address] [place] [address] Care Team Providers Care Sanitation Truck Cleaner Name Role Phone Salima Gonzáles DO Primary Care Provider [phone] Encounter Details Date Type Department Care Team (Late st Contact Info) Description 10/04/2020 Transcribed Document [facility] [place] Family Medicine [address] [place] [address] ProviderQuincy MD [address] [place] [address] Social History Tobacco Use Types Packs/Day Years Used Date Smoking Tobacco: Never Assessed Comments Unknown Sex and Gender Information Value Date Recorded Sex Assigned at Not on file Legal Sex Female 2:54 PM CDT Gender Identity Not on file Sexual Orientation Not on file documented as of this encounter Miscellaneous Notes * [employer] Conversion Note - Quincy Kate MD - 10/04/2020 5:00 AM CDT Chart Check - Review Order Profile Entered On: 10/04/2020 4:12 EDT Performed On: 10/04/2020 5:00 EDT by Lj Villarreal, RN Chart Check Power[employer]ans Initiated/Discontinued as Appropriate : Yes All Active Orders Reviewed : Yes Lj Villarreal RN - 10/04/2020 4:12 EDT documented in this encounter Plan of Treatment Not on file documented as of this encounter Visit Diagnoses Not on filedocumented in this encounter Care Teams Sanitation Truck Cleaner Relationship Specialty Start Date End Date Salima Gonzáles DO [address] [facility] [address] [place] [address] PCP - General Family Medicine 02/09/23 documented as of this encounter
--- OUTSIDE RECORDS SUMMARY | 2024-11-25 21:47 | XMS_ITS | Continuity of Care Document ---
Author Organization [facility] Address [address] [place], [place] [id number] Care Team Providers Care Americanization Teacher Name Role Phone Salima Gonzáles MD Primary Care Provider [phone] Encounters Date Type Department Care Team Description 04/09/2024 6:26 PM EST - 04/11/2024 1:08 PM EST Hospital Encounter [facility] 7W Med/Surg [address] [place] [phone] Carlos Cannon MD Abreu, Cristy, MD Tammo, Sami, MD Holt, Tracy R, RADIO SALES ACCOUNT EXECUTIVE Intractable pain (Primary Dx); Abdominal pain, unspecified abdominal location; Epigastric pain Discharge Disposition: Home or Self Care 04/10/2024 1:24 PM EST Anesthesia Event [facility] Endoscopy [address] [place] [phone] Clementina Mcadams CRNA Robbins, Lindsey, APRN 04/10/2024 12:30 PM EST - 04/10/2024 1:00 PM EST Surgery [facility] Endoscopy [address] [place] [phone] Salima Perla, EGD WITH BIOPSY 02/12/2024 10:18 AM EDT - 02/12/2024 11:59 PM EDT Hospital Encounter [facility] Radiology [address] [place] [phone] James Cole MD Periumbilical pain Discharge Disposition: Home or Self Care 02/12/2024 12:10 PM EDT Follow-Up [facility] [address] [place] [phone] James Cole MD Bariatric surgery status (Primary Dx); Class 3 severe obesity due to excess calories with serious comorbidity and body mass index (BMI) of 45.0 to 49.9 in adult 02/05/2024 2:20 PM EDT Follow-Up [facility] [address] [place] [address] James Cole MD Bariatric surgery status (Primary Dx); Class 3 severe obesity due to excess calories with serious comorbidity and body mass index (BMI) of 45.0 to 49.9 in adult; Primary hypertension; Periumbilical pain 11/02/2021 7:30 PM EDT - 11/07/2021 3:04 PM EDT Hospital Encounter [facility] 7W Med/Surg [address] [place] [phone] Forrest Garrison MD Small bowel obstruction due to postoperative adhesions (Primary Dx); Morbid obesity with BMI of 45.0-49.9, adult; Diabetes mellitus type 2 in obese; Hypothyroidism, unspecified type; Primary hypertension; SBO (small bowel obstruction) Discharge Disposition: Home or Self Care 11/04/2021 11:38 AM EDT Anesthesia Event [facility] Periop Services [address] [place] [phone] Jeremy Briscoe MD Carpenter, Amanda, GEENA 11/04/2021 11:25 AM EDT - 11/04/2021 1:35 PM EDT Surgery [facility] Periop Services [address] [place] [phone] James Cole MD LAPAROSCOPIC ADHESIOLYSIS Allergies Active Allergy Reactions Criticality Noted Date Comments Morphine Low 11/03/2021 Halucinations Cefdinir Shortness Of Breath High 11/03/2021 Levofloxacin Other (See Comments) Medium 02/05/2024 MENTAL BREAKDOWN Medications pregabalin (LYRICA) 150 MG capsule Take 150 mg by mouth 2 (two) times daily. Active levothyroxine (SYNTHROID) 125 MCG tablet Take 125 mcg by mouth daily. Active loratadine (CLARITIN) 10 MG tablet Take 10 mg by mouth daily. Active montelukast (SINGULAIR) 10 MG tablet Take 10 mg by mouth daily. Active fluticasone (VERAMYST) 27.5 MCG/SPRAY nasal spray Instill 2 sprays into nose daily. Active eszopiclone (LUNESTA) 2 MG TABS Take 1 tablet by mouth nightly Take immediately before bedtime. Max Daily Amount: 2 mg 10 tablet 2 Active Additional Information Patient not taking.Reason: Other, Reported on 04/10/2024 HYDROcodone-zee taminophen (NORCO) 7.5-325 MG per tablet Take 1 tablet by mouth every 6 (six) hours as needed for Pain. Max Daily Amount: 4 tablets 40 tablet 2 Active simvastatin (ZOCOR) 5 MG tablet 5 mg. 9 Active buPROPion (WELLBUTRIN XL) 150 MG 24 hr tablet Take 150 mg by mouth 2 (two) times daily. Active JANUVIA 100 MG tablet Take 50 mg by mouth daily. Active FLUoxetine (PROZAC) 40 MG capsule Take 40 mg by mouth daily. 9 Active budesonide-form oterol (SYMBICORT) 80-4.5 MCG/ACT inhaler Inhale 2 puffs into the lungs 2 (two) times daily. Active Risankizumab-rz aa (SKYRIZI, 150 MG DOSE, SC) Inject 150 mg into the skin Every 12 weeks. Active fluticasone-Govind meterol (ADVAIR DISKUS) 100-50 MCG/ACT AEPB inhaler Inhale 2 puffs into the lungs 2 (two) times daily. Active pantoprazole (PROTONIX) 40 MG tablet Take 1 tablet by mouth 2 (two) times daily. 120 tablet 04/11/2024 1:05 PM EST 4 Active sucralfate (CARAFATE) 1 g tablet Take 1 tablet by mouth 4 (four) times daily for 14 days. 56 tablet 04/11/2024 1:05 PM EST 4 Active Active Problems Problem Noted Date Diagnosed Date Abdominal pain, duodenitis versus ulcer disease 04/10/2024 Depression 04/10/2024 Epigastric pain 04/09/2024 SBO (small bowel obstruction) 11/03/2021 Morbid obesity with BMI of 45.0-49.9, adult 3 Hypertension Type 2 diabetes mellitus with obesity COPD (chronic obstructive pulmonary disease) Hypothyroidism Former smoker Small bowel obstruction due to postoperative adh esions Family History Medical History Relation Comments Diabetes Father Hypertension Father Breast cancer Maternal Aunt Seizures Maternal Grandmother Stroke Maternal Grandmother Diabetes Mother Hypertension Mother Relation Status Comments Father Maternal Aunt Alive Maternal Grandmother Mother Social History Smoking Status as of 11/25/2024 Tobacco Use Types Packs/Day Years Used Date Smoking Tobacco: Never Assessed Sex and Gender Information Value Date Recorded Sex Assigned at Not on file Legal Sex Female 5:05 PM EDT Gender Identity Not on file Sexual Orientation Not on file Last Filed Vital Signs Vital Sign Reading Time Taken Comments Blood Pressure 94/53 04/11/2024 11:48 AM EST Pulse 62 04/11/2024 11:48 AM EST Temperature 36.2 C (97.2 F) 04/11/2024 11:48 AM EST Respiratory Rate 16 04/11/2024 11:48 AM EST Oxygen Saturation 98% 04/11/2024 11:48 AM EST Inhaled Oxygen Concentration - - Weight 111 kg (244 lb 11.4 oz) 04/10/2024 1:38 A M EST Height 154.9 cm (5' 1 ) 04/10/2024 1:38 AM EST Body Mass Index 46.24 04/10/2024 1:38 AM EST Plan of Treatment Not on file Medical Devices Implanted Type Area Collator Hand Device Identifier Shelf Expiration Date Model / Serial / Lot Sealant [id number] - [id number] Implanted:Qty : 1 on 11/04/2021 by James Cole MD at [facility] OTHER - IMPLANTS - OTHER N/A: Abdomen RODRIGUEZ 01/31/2023 [id number] / / [id number] Procedures Procedure Name Priority Date/Time Associated Diagnosis Comments GLUCOSE-GLUCOMETER Routine 04/11/2024 11 :06 AM EST GLUCOSE-GLUCOMETER Routine 04/11/2024 7: 39 AM EST MAGNESIUM Routine 04/11/2024 4:39 AM EST COMPREHENSIVE METABOLIC PANEL (CMP) Routine 04/11/2024 4:39 AM EST CBC W/DIFF Routine 04/11/2024 4:39 AM EST GLUCOSE-GLUCOMETER Routine 04/10/2024 8: 51 PM EST GLUCOSE-GLUCOMETER Routine 04/10/2024 5: [address] HIGH RESOLUTION CHEST WO CONTRAST Routine 04/10/2024 4:32 PM EST SURGICAL SPECIMEN Routine 04/10/2024 1:3 2 PM EST Epigastric pain EGD WITH BIOPSY 04/10/2024 1:25 PM EST Epigastric pain XR CHEST 1 VW Routine 04/10/2024 8:08 AM EST PROCALCITONIN Routine 04/10/2024 6:11 AM EST HEMOGLOBIN A1C Routine 04/10/2024 2:39 AM EST MAGNESIUM Routine 04/10/2024 2:39 AM EST COMPREHENSIVE METABOLIC PANEL (CMP) Routine 04/10/2024 2:39 AM EST CBC W/DIFF Routine 04/10/2024 2:[address] ANGIOGRAM ABDOMEN PELVIS WITH CONTRAST STAT 04/09/2024 9:38 PM EST LIPASE STAT 04/09/2024 8:53 PM EST ECG 12-LEAD STAT 04/09/2024 7:31 PM EST URINALYSIS STAT 04/09/2024 7:25 PM EST HIGH SENSITIVITY TROPONIN-I STAT 04/09/2024 4:04 PM EST LIPASE STAT 04/09/2024 4:04 PM EST COMPREHENSIVE METABOLIC PANEL (CMP) STAT 04/09/2024 4:04 PM EST CBC W/DIFF STAT 04/09/2024 4:04 PM EST FL UPPER GI & SMALL BOWEL Routine 02/12/2024 11:13 AM EDT Periumbilical pain GLUCOSE-GLUCOMETER Routine 11/07/2021 12 :47 PM EDT GLUCOSE-GLUCOMETER Routine 11/07/2021 8: 10 AM EDT HB BMP W TOTAL CALCIUM Routine 3:30 AM EDT GLUCOSE-GLUCOMETER Routine 11/06/2021 9: 28 PM EDT GLUCOSE-GLUCOMETER Routine 11/06/2021 4: 37 PM EDT HB POTASSIUM BLOOD Routine 11/06/2021 12 :28 PM EDT GLUCOSE-GLUCOMETER Routine 11/06/2021 11 :51 AM EDT GLUCOSE-GLUCOMETER Routine 11/06/2021 7: 37 AM EDT HB BMP W TOTAL CALCIUM Routine 4:08 AM EDT HB CBC/PLT/AUTO DIFF Routine 11/06/2021 4:08 AM EDT GLUCOSE-GLUCOMETER Routine 11/05/2021 10 :46 PM EDT GLUCOSE-GLUCOMETER Routine 11/05/2021 8: 09 PM EDT GLUCOSE-GLUCOMETER Routine 11/05/2021 5: 46 PM EDT GLUCOSE-GLUCOMETER Routine 11/05/2021 4: 32 PM EDT GLUCOSE-GLUCOMETER Routine 11/05/2021 8: 18 AM EDT HB CBC/PLT/AUTO DIFF Routine 11/05/2021 6:00 AM EDT GLUCOSE-GLUCOMETER Routine 11/04/2021 7: 37 PM EDT GLUCOSE-GLUCOMETER Routine 11/04/2021 2: 11 PM EDT EXPLORATORY LAPAROSCOPY DIAGNOSTIC 11/04/2021 11:38 AM EDT SBO (small bowel obstruction) HB POTASSIUM BLOOD STAT 11/04/2021 10 :03 AM EDT GLUCOSE-GLUCOMETER Routine 11/04/2021 7: 50 AM EDT GLUCOSE-GLUCOMETER Routine 11/04/2021 3: 03 AM EDT HB HGB A1C Routine 11/04/2021 2:17 AM EDT HB MAGNESIUM Routine 11/04/2021 2:17 AM EDT HB COMP METABOLIC PANEL Routine 11/04/2021 2:17 AM EDT HB CBC/PLT/AUTO DIFF Routine 11/04/2021 2:17 AM EDT GLUCOSE-GLUCOMETER Routine 11/04/2021 1: 19 AM EDT GLUCOSE-GLUCOMETER Routine 11/03/2021 8: 29 PM EDT HB CLOSTRIDIUM DIFFICILE BY PCR Routine 11/03/2021 6:46 PM EDT GLUCOSE-GLUCOMETER Routine 11/03/2021 6: 19 PM EDT HB PROTHROMBIN TIME Routine 11/03/2021 5 :30 PM EDT HB ANTIBODY SCREEN GEL Routine 5:28 PM EDT GLUCOSE-GLUCOMETER Routine 11/03/2021 5: 25 PM EDT URINALYSIS Routine 11/03/2021 4:39 PM EDT HB CULTURE URINE COLONY COUNT Routine 11/03/2021 4:39 PM EDT XR ABDOMEN FLAT & UPR + CXR STAT 11/03/2021 3:30 PM EDT HB CULTURE STOOL Routine 11/03/2021 3:24 PM EDT HB OVA & PARASITE Routine 11/03/2021 3:2 4 PM EDT HB COMP METABOLIC PANEL Routine 11/03/2021 2:59 PM EDT HB CBC/PLT/AUTO DIFF Routine 11/03/2021 2:59 PM EDT Results * (ABNORMAL) Glucose-Glucometer (04/11/2024 11:06 AM EST) Only the most recent of23 resultswithin the time period is included. [facility] Signature Glucose Glucometer 52(L) 71 - 139 mg/dL 04/11/2024 11:11 AM EST [facility] Blood VENOUS BLOOD SPECIMEN / Unknown 04/11/2024 11:06 AM EST 04/11/2024 11:11 AM EST us Iris Staley [employer]IO SALES ACCOUNT EXECUTIVE LAB BLOOD ORDERABLES Final Res ult [facility] [address] [place] [address] * CBC w/Diff (04/11/2024 4:39 AM EST) Only the most recent of7 resultswithin the time period is included. [facility] White Blood Cells 5.92 4.50 - 11.00 10*3/uL LAB DEVICE: SYSMEX XN-10 04/11/2024 4:51 AM [facility] Red Blood Cells 4.30 4.00 - 5.20 10*6/uL LAB DEVICE: SYSMEX XN-10 04/11/2024 4:51 AM [facility] Hemoglobin 12.6 12.0 - 16.0 g/dL LAB DEVICE: SYSMEX XN-10 04/11/2024 4:51 AM [facility] Hematocrit 39.3 36.0 - 46.0 % LAB DEVICE: SYSMEX XN-10 04/11/2024 4:51 AM [facility] Mean Corpuscular Volume 91.4 80.0 - 100.0 fL LAB DEVICE: SYSMEX XN-10 04/11/2024 4:51 AM [facility] Mean Corpuscular Hemoglobin 29.3 26.0 - 34.0 pg LAB DEVICE: SYSMEX XN-10 04/11/2024 4:51 AM [facility] Mean Corpuscular Hemoglobin Concentration 32.1 31.0 - 37.0 g/dL LAB DEVICE: SYSMEX XN-10 04/11/2024 4:51 AM [facility] % Red Blood Cell Distribution Width 13.3 12.0 - 16.8 % LAB DEVICE: SYS[facility]EX XN-10 04/11/2024 4:51 AM [facility] Platelet Count 275 140 - 440 10*3/uL LAB DEVICE: SYS[facility]EX XN-10 04/11/2024 4:51 AM [facility] Mean Platelet Volume 9.7 8.4 - 12.4 fL LAB DEVICE: SYS[facility]EX XN-10 04/11/2024 4:51 AM [facility] % Neutrophils 49.7 45.0 - 80.0 % LAB DEVICE: SYS[facility]EX XN-10 04/11/2024 4:51 AM [facility] % Lymphocytes 39.4 15.0 - 50.0 % LAB DEVICE: SYS[facility]EX XN-10 04/11/2024 4:51 AM [facility] % Monocytes 8.1 0.0 - 15.0 % LAB DEVICE: SYS[facility]EX XN-10 04/11/2024 4:51 AM [facility] % Eosinophils 1.5 0.0 - 7.0 % LAB DEVICE: S[facility]EX XN-10 04/11/2024 4:51 AM [facility] % Basophils 1.0 0.0 - 2.0 % LAB DEVICE: SYS[facility]EX XN-10 04/11/2024 4:51 AM [facility] % Immature Granulocytes 0.3 0.0 - 1.0 % LAB DEVICE: SYS[facility] XN-10 04/11/2024 4:51 AM [facility] % Nucleated RBCs 0 <=0 /100 WBCs LAB DEVICE: SYS[facility]EX XN-10 04/11/2024 4:51 AM [facility] Absolute Neutrophil Count 2.94 2.00 - 8.80 10*3/uL LAB DEVICE: SYSMEX XN-10 04/11/2024 4:51 AM [facility] Absolute Lymphocytes 2.33 0.70 - 5.50 10*3/uL LAB DEVICE: SYSMEX XN-10 04/11/2024 4:51 AM [facility] Absolute Monocytes 0.48 0.00 - 1.70 10*3/uL LAB DEVICE: SYSMEX XN-10 04/11/2024 4:51 AM [facility] Absolute Eosinophils 0.09 0.00 - 0.80 10*3/uL LAB DEVICE: SYSMEX XN-10 04/11/2024 4:51 AM [facility] Absolute Basophils 0.06 0.00 - 0.20 10*3/uL LAB DEVICE: SYSMEX XN-10 04/11/2024 4:51 AM [facility] Absolute Immature Granulocytes 0.02 0.00 - 0.10 10*3/uL LAB DEVICE: SYSMEX XN-10 04/11/2024 4:51 AM [facility] Blood VENOUS BLOOD SPECIMEN / Unknown Venipuncture / Unknown 04/11/2024 4:39 AM EST 04/11/2024 4:45 AM EST Kelly Kelly MD LAB BLOOD ORDERABLES Final Resul t Performing Organization Address City/[facility]/ZIP Co de Phone Number [address] [phone] * Magnesium (04/11/2024 4:39 AM EST) Only the most recent of3 resultswithin the time period is included. Magnesium 2.0 1.6 - 2.6 mg/dL 04/11/2024 5:11 AM [facility] Blood VENOUS BLOOD SPECIMEN / Unknown Venipuncture / Unknown 04/11/2024 4:39 AM EST 04/11/2024 4:45 AM EST Kelly Kelly MD LAB BLOOD ORDERABLES Final Resul t Performing Organization Address City/[facility]/ZIP Co de Phone Number [address] [address] * (ABNORMAL) Comprehensive Metabolic Panel (CMP) (04/11/2024 4:39 AM EST) Only the most recent of5 resultswithin the time period is included. Sodium 142 136 - 145 mmol/L 04/11/2024 5:11 AM [facility] Comment:Excess protein and/o r lipids can falsely decrease sodium levels (pseudo hyponatremia). Potassium 4.1 3.5 - 5.1 mmol/L 04/11/2024 5:11 AM [facility] Comment:Falsely elevated pot assium can occur in patients with high WBC or platelet counts. Chloride 109(H) 98 - 107 mmol/L 04/11/2024 5:11 AM [facility] Comment:Falsely elevated chl oride levels can be seen in patients taking bromide containing medications. Carbon Dioxide 24 22 - 29 mmol/L 04/11/2024 5:11 AM [facility] Anion Gap 9 5 - 13 mmol/L 04/11/2024 5:11 AM [facility] Comment:Calculation: Na - (C l + CO2) Glucose, Random 76 71 - 99 mg/dL 04/11/2024 5:11 AM [facility] Blood Urea Nitrogen (BUN) 10 10 - 20 mg/dL 04/11/2024 5:11 AM [facility] Creatinine, Blood 0.93 0.55 - 1.02 mg/dL 04/11/2024 5:11 AM [facility] BUN/Creatinine Ratio 10.8 RATIO 04/11/2024 5:11 AM [facility] Estimated GFR (Cr) 71 >60 mL/min/1.7 3m2 04/11/2024 5:11 AM [facility] Comment:eGFR calculated base d on IDMS traceable, enzymatic creatinine method using the CKD-EPI 2020 equation. Total Protein 6.8 6.4 - 8.2 g/dL 04/11/2024 5:11 AM [facility] Albumin 3.7 3.5 - 5.2 g/dL 04/11/2024 5:11 AM [facility] Globulin 3.1 1.5 - 4.5 g/dL 04/11/2024 5:11 AM [facility] Albumin/Globulin Ratio 1.2 1.1 - 2.5 RATIO 04/11/2024 5:11 AM [facility] Calcium 9.1 8.4 - 10.2 mg/dL 04/11/2024 5:11 AM [facility] Total Bilirubin 0.9 0.2 - 1.2 mg/dL 04/11/2024 5:11 AM [facility] AST/SGOT 20 5 - 34 U/L 04/11/2024 5:11 AM [facility] ALT/SGPT 20 0 - 55 U/L 04/11/2024 5:11 AM [facility] Alkaline Phosphatase 72 40 - 150 U/L 04/11/2024 5:11 AM [facility] Blood VENOUS BLOOD SPECIMEN / Unknown Venipuncture / Unknown 04/11/2024 4:39 AM EST 04/11/2024 4:45 AM EST us Kelly Kelly MD LAB BLOOD ORDERABLES Final Resul t [facility] [address] [phone] * CT High Resolution Chest WO Contrast (04/10/2024 4:32 PM EST) [facility] RAD WORKSTATION ID [id number] CO POWERSCRIBE Anatomical Region Laterality Modality Chest Computed Tomogra phy 04/10/2024 4:41 PM EST Narrative 04/10/2024 4:56 PM EST REVIEWING YOUR TEST RESULTS IN [facility] IS NOT A SUBSTITUTE FOR DISCUSSING THOSE RESULTS WITH YOUR HEALTH CARE PROVIDER. PLEASE CONTACT YOUR PROVIDER VIA [facility] TO DISCUSS ANY QUESTIONS OR CONCERNS YOU MAY HAVE REGARDING THESE TEST RESULTS. RADIOLOGY REPORT FACILITY: [facility] UNIT/AGE/GENDER: MYoly IN AGE:58 Y SEX:F PATIENT NAME/: AMBIKA RPATT TURNER 1965 UNIT NUMBER: [id number] ACCESSION NUMBER: [id number] EXAMINATION: CT of the chest without contrast (High resolution protocol). DATE: 04/10/2024 HISTORY:Interstitial lung disease. TECHNIQUE: Helical CT of the chest was performed without the administration of intravenous contrast media according to the high resolution protocol High resolution images were also obtained in inspiration and expiration. CT scans at this facility use dose modulation, iterative reconstruction and/or weight based dosing when appropriate to reduce radiation dose to as low as reasonably achievable COMPARISON: CT abdomen and pelvis dated April 09, 2024. FINDINGS: High-resolution imaging in inspiration and expiration demonstrates a mild degree of subpleural and basilar predominant interstitial thickening, reticulation, with mild fibrosis. No honeycomb fibrotic change. No pleural effusion or pneumothorax. There are a few calcified granulomas. There is mild air trapping on expiratory imaging. No suspicious pulmonary nodule. Heart size is normal. There is a trace amount of pericardial fluid. Coronary artery calcifications are present. No mediastinal or hilar adenopathy. Several lymph nodes contain calcification consistent with old healed granulomatous disease. Limited images of the upper abdomen demonstrates postsurgical changes from gastric bypass surgery. Trace fat stranding is seen about the gastric bypass. A cholecystectomy has been performed. Surgical madeleine are seen along the midline anterior abdominal wall. Moderate degenerative changes involve the thoracic spine. IMPRESSION: 1. Mild subpleural and in particular basilar predominant fibrosis. Differential would include sequela of nonspecific interstitial pneumonitis or conceivably early usual interstitial pneumonia. 2. Old healed granulomatous disease. 3. Small airways disease. 4. Trace fat stranding about the gastric bypass, nonspecific, conceivably related to underlying gastritis or related to postsurgical change. Dictated by: Isiah Cornelius M.D. Images and Report reviewed and interpreted by: Isiah Cornelius M.D. <PS><Electronically signed by: Isiah Cornelius M.D.> 04/10/2024 1655 [id number] Procedure Note Isiah Cornelius MD - 04/10/2024 REVIEWING YOUR TEST RESULTS IN [facility] IS NOT A SUBSTITUTE FORDISCUSSING THOSE RESULTS WITH YOUR HEALTH CARE PROVIDER. PLEASE CONTACT YOUR PROVIDER VIA [facility] TO DISCUSS ANY QUESTIONS ORCONCERNS YOU MAY HAVE REGARDING THESE TEST RESULTS. RADIOLOGY REPORT FACILITY: [facility] UNIT/AGE/GENDER: Saul IN AGE:58 Y SEX:F PATIENT NAME/: AMBIKA PRATT TURNER 1965 UNIT NUMBER: [id number] ACCESSION NUMBER: [id number] EXAMINATION: CT of the chest without contrast (High resolution protocol). DATE: 04/10/2024 HISTORY:Interstitial lung disease. TECHNIQUE: Helical CT of the chest was performed without the administration of intravenous contrast media according to the high resolution protocol High resolution images were also obtained in inspiration and expiration. CT scans at this facility use dose modulation, iterative reconstruction and/or weight based dosing when appropriate to reduce radiation dose to as low as reasonably achievable COMPARISON: CT abdomen and pelvis dated April 09, 2024. FINDINGS: High-resolution imaging in inspiration and expiration demonstrates a mild degree of subpleural and basilar predominant interstitial thickening, reticulation, with mild fibrosis. No honeycomb fibrotic change. No pleural effusion or pneumothorax. There are a few calcified granulomas. There is mild air trapping on expiratory imaging. No suspicious pulmonary nodule. Heart size is normal. There is a trace amount of pericardial fluid. Coronary artery calcifications are present. No mediastinal or hilar adenopathy. Several lymph nodes contain calcification consistent with old healed granulomatous disease. Limited images of the upper abdomen demonstrates postsurgical changes from gastric bypass surgery. Trace fat stranding is seen about the gastric bypass. A cholecystectomy has been performed. Surgical madeleine are seen along the midline anterior abdominal wall. Moderate degenerative changes involve the thoracic spine. IMPRESSION: 1. Mild subpleural and in particular basilar predominant fibrosis. Differential would include sequela of nonspecific interstitial pneumonitis or conceivably early usual interstitial pneumonia. 2. Old healed granulomatous disease. 3. Small airways disease. 4. Trace fat stranding about the gastric bypass, nonspecific, conceivably related to underlying gastritis or related to postsurgical change. Dictated by: Isiah Cornelius M.D. Images and Report reviewed and interpreted by: Isiah Cornelius M.D. <PS><Electronically signed by: Isiah Cornelius M.D.> 04/10/2024 1655 [id number] us Joselyn Sanchez MD IMG CT ORDERABLES Final Resu lt * Case request operating room: EGD (04/10/2024 1:40 PM EST) Narrative Procedure Note Salima Perla, DO - 04/10/2024 1:40 PM EST Patient Name: Ambika Pratt Procedure Date No Time: 04/10/2024 Date of : 1965 Gender: Female Attending MD: SALIMA PERLA MD, [id number] Procedure: Upper GI endoscopy Pre-op Diagnosis: Epigastric abdominal pain, Suspected peptic ulcer Providers: SALIMA PERLA MD Medicines: Monitored Anesthesia Care Complications: No immediate complications. Procedure: Pre-Anesthesia Assessment: - Prior to the procedure, a History and Physicalwas performed, and patient medications and allergieswere reviewed. The patient is competent. The risks and benefits of the procedure and the sedation optionsand risks were discussed with the patient. Allquestions were answered and informed consent was obtained. Patient identification and proposed procedure were verified by the physician. Mental StatusExamination: alert and oriented. Airway Examination: normal oropharyngeal airway and neck mobility. Respiratory Examination: clear to auscultation. CV Examination: normal. Prophylactic Antibiotics: The patient doesnot require prophylactic antibiotics. Prior Anticoagulants: The patient has taken noanticoagulant or antiplatelet agents. ASA Grade Assessment: III -A patient with severe systemic disease. Afterreviewing the risks and benefits, the patient was deemed in satisfactory condition to undergo the procedure.The anesthesia plan was to use moderate sedation / analgesia (conscious sedation). Immediately priorto administration of medications, the patient was re-assessed for adequacy to receive sedatives. The heart rate, respiratory rate, oxygen saturations, blood pressure, adequacy of pulmonary ventilation,and response to care were monitored throughout the procedure. The physical status of the patient was re-assessed after the procedure. After obtaining informed consent, the endoscope was passed under direct vision. Throughout theprocedure, the patient's blood pressure, pulse, and oxygen saturations were monitored continuously. TheOlympus GIF H190 Endoscope was introduced through themouth, and advanced to the jejunum. The upper GI endoscopy was accomplished without difficulty. The patient tolerated the procedure well. Findings: The esophagus was normal. Evidence of a Eulogio-en-Y gastrojejunostomy was found. Thegastrojejunal anastomosis was characterized by clean-based ulceration. This was traversed. Biopsies were taken from the stomach with a cold forcepsfor Helicobacter pylori testing. The anastomosis demonstrated circumferential ulceration with multiple smaller, clean based ulcers distal to this in the proximal small bowel. Exam of the jejunum was otherwise normal. Estimated Blood Loss: Estimated blood loss was minimal. Post-op Diagnosis: - Normal esophagus. - Eulogio-en-Y gastrojejunostomy with gastrojejunal anastomosis characterized by ulceration.Biopsied. - Normal jejunum beyond the initial ulceration Recommendation: - Return patient to hospital smalls for ongoingcare. - Clear liquid diet. Advance to GI soft astolerated. - Continue present medications. - The patient is not currently taking anticoagulantor antiplatelet agents and therefore does not require instructions for their resumption. - Await pathology results. - No aspirin, ibuprofen, naproxen, or other non-steroidal anti-inflammatory drugs. - Continue Protonix 40mg BID x 4 weeks, thendecrease to once daily. - Carafate QID SALIMA PERLA MD 04/10/2024 1:40:25 PM Number of Addenda: 0 Note Initiated On: 04/10/2024 12:37 PM Chikis Cole RADIO SALES ACCOUNT EXECUTIVE GENERAL SURGICAL ORDERABLES Final Result * Surgical Specimen: Gastric (04/10/2024 1:32 PM EST) Case Report Surgical Pathology Report Case: [id number] Authorizing Provider: Salima Perla DO Collected: 04/10/2024 1332 Ordering Location: [facility] Endoscopy Received: 04/10/2024 1501 Pathologist: David Oliver MD Specimen: Gastric, RANDOM GASTRIC BX, R/O H. PYLORI 04/11/2024 11:29 AM EST [facility] Amendment Comment RANDOM STOMACH, ENDOSCOPIC BIOPSY: UNREMARKABLE GASTRIC MUCOSA. NEGATIVE IMMUNOSTAIN FOR HELICOBACTER PYLORI MICROORGANISMS. CONTROL REACTS APPROPRIATELY. NO METAPLASIA, DYSPLASIA OR MALIGNANCY IDENTIFIED. 04/11/2024 11:29 AM EST [facility] Diagnosis 04/11/2024 11:29 AM EST [facility] at 1129 EST Clinical History EPIGASTRIC PAIN 04/11/2024 11:29 AM EST [facility] Microscopic Description Microscopic examination performed. 04/11/2024 11:29 AM EST [facility] Gross Description Received in formalin labeled random gastric biopsy, rule out H. pylori are two pink-mckeon irregular soft tissue fragments, 0.1 and 0.3 cm in greatest dimension, submitted in toto as A1. Fixation time is between 6-72 hours. [facility] 04/10/2024 /am1 04/11/2024 11:29 AM EST [facility] Sign Out Location [facility] [address] [place] [address] 04/11/2024 11:29 AM EST [facility] Case Flag Normal Normal 04/11/2024 11:29 AM EST [facility] Tissue SPERMATOZOA SPECIMEN / Unknown 04/10/2024 1:32 PM EST 04/10/2024 3:01 PM EST Comment:Pre-op diagnosis: Epigastric pain [R10.13] us Salima Perla DO PATHOLOGY/CYTOLOGY ORDERA BLES Final Result [facility] [address] [place] [address] * XR Chest 1 Vw (04/10/2024 8:08 AM EST) [facility] RAD WORKSTATION ID [id number] CO POWERSCRIBE Anatomical Region Laterality Modality Chest [facility] Radiographic Imaging 04/10/2024 8:39 AM EST Narrative 04/10/2024 8:41 AM EST REVIEWING YOUR TEST RESULTS IN [facility] FOR DISCUSSING THOSE RESULTS WITH YOUR HEALTH CARE PROVIDER. PLEASE CONTACT YOUR PROVIDER VIA [employer] TO DISCUSS ANY QUESTIONS OR CONCERNS YOU MAY HAVE REGARDING THESE TEST RESULTS. RADIOLOGY REPORT FACILITY: [facility] UNIT/AGE/GENDER: Saul IN AGE:58 Y SEX:F PATIENT NAME/: AMBIKA PRATT T[birth year]NER 1965 UNIT NUMBER: [id number] ACCESSION NUMBER: [id number] EXAMINATION: XR CHEST 1 VW HISTORY: possible NSIP FINDINGS: 1 view of the chest is submitted for interpretation compared to CT abdomen April 09, 2024. The lungs are clear. There is no pleural effusion or pneumothorax. The cardiomediastinal silhouette is normal. IMPRESSION: 1. No acute radiographic abnormality of the chest. Dictated by: Fuad Tolentino M.D. Images and Report reviewed and interpreted by: Fuad Tolentino M.D. <PS><Electronically signed by: Fuad Tolentino M.D.> 04/10/2024 0840 0839 0839 Procedure Note Fuad Tolentino MD - 04/10/2024 REVIEWING YOUR TEST RESULTS IN [facility] IS NOT A SUBSTITUTE FORDISCUSSING THOSE RESULTS WITH YOUR HEALTH CARE PROVIDER. PLEASE CONTACT YOUR PROVIDER VIA [employer] TO DISCUSS ANY QUESTIONS ORCONCERNS YOU MAY HAVE REGARDING THESE TEST RESULTS. RADIOLOGY REPORT FACILITY: [facility] UNIT/AGE/GENDER: Saul IN AGE:58 Y SEX:F PATIENT NAME/: AMBIKA PRATT TURNER 1965 UNIT NUMBER: [id number] ACCESSION NUMBER: [id number] EXAMINATION: XR CHEST 1 VW HISTORY: possible NSIP FINDINGS: 1 view of the chest is submitted for interpretation compared to CT abdomen April 09, 2024. The lungs are clear. There is no pleural effusion or pneumothorax. The cardiomediastinal silhouette is normal. IMPRESSION: 1. No acute radiographic abnormality of the chest. Dictated by: Fuad Tolentino M.D. Images and Report reviewed and interpreted by: Fuad Tolentino M.D. <PS><Electronically signed by: Fuad Tolentino M.D.> 04/10/2024 0840 0839 0839 Lurdes Mathews APRN IMG DIAGNOSTIC IMAGING ORDERAB LES Final Result * (ABNORMAL) Procalcitonin (04/10/2024 6:11 AM EST) Procalcitonin 0.03(L) 0.10 - 0.50 ng/mL 04/10/2024 7:11 AM EST [facility] Blood VENOUS BLOOD SPECIMEN / Unknown Venipuncture / Unknown 04/10/2024 6:11 AM EST 04/10/2024 6:29 AM EST Lurdes Mathews APRN LAB BLOOD ORDERABLES Final Res ult Performing Organization Address City/State/[facility] Co de Phone Number [place] [address] [place] [phone] * Hemoglobin A1C (04/10/2024 2:39 AM EST) Only the most recent of2 resultswithin the time period is included. Hemoglobin A1C 5.3 4.3 - 5.6 % LAB DEVICE: [employer] D100 04/10/2024 6:23 PM EST [facility] Estimated Average Glucose 105 mg/dL 04/10/2024 6:23 PM EST [facility] Blood VENOUS BLOOD SPECIMEN / Unknown Venipuncture / Unknown 04/10/2024 2:39 AM EST 04/10/2024 2:45 AM EST Narrative [facility] - 04/10/2024 6:23 PM EST A1C% Reference Range: 4.3 - 5.6 Normal range 5.7 - 6.4 Pre-diabetic -increased risk for developing diabetes mellitus. >=6.5 Diabetic -diagnostic of diabetes mellitus. Note: For diagnosis of diabetes in individuals without unequivocal hyperglycemia, results should be confirmed by repeat testing. Patients with conditions that shorten erythrocyte survival, such as recovery from acute blood loss, hemolytic anemia, kidney disease, or the presence of unstable hemogloblins like HbSS, HbCC, and HbSC may yield falsely decreased HbA1c test results. Iron deficiency may yield falsely increased HbA1c test results. us Iris Staley RADIO SALES ACCOUNT EXECUTIVE LAB BLOOD ORDERABLES Final Res ult [facility] [address] [place] [address] * CT Angio Abdomen Pelvis W Contrast (04/09/2024 9:38 PM EST) [facility] RAD WORKSTATION ID [id number] CO nlighten TechnologiesCRIBE Anatomical Region Laterality Modality Abdomen Computed Tomogra phy 04/09/2024 10:3 1 PM EST Narrative 04/09/2024 10:35 PM EST REVIEWING YOUR TEST RESULTS IN [facility] NOT A [facility]STITUTE FOR DISCUSSING THOSE RESULTS WITH YOUR HEALTH CARE PROVIDER. PLEASE CONTACT YOUR PROVIDER [facility]IA [facility] TO DISCUSS ANY QUESTIONS OR CONCERNS YOU MAY HAVE REGARDING THESE TEST RESULTS. RADIOLOGY REPORT FACILITY: [facility] UNIT/AGE/GENDER: M.ED ER AGE:58 Y SEX:F PATIENT NAME/: AMBIKA PRATT TURNER 1965 UNIT NUMBER: [id number] ACCESSION NUMBER: [id number] Examination: CT angiography of the abdomen and pelvis with contrast. History: Epigastric pain radiating to the back Technique: Multiple thin slice axial CT images were obtained from the dome of the diaphragm through the pubis following the dynamic intravenous administration of 100 mL of Isovue-370. Post processing 2D MIP images were obtained. Per CMS specifications, dose optimization techniques including at least one of the following were performed, as appropriate: Automated exposure control, adjustment of the mA and/or kV according to the patient's size, use of iterative reconstruction techniques. Findings: Lungs are clear. Cardiac silhouette is normal. The liver is normal. Prior cholecystectomy. Abnormal stranding adjacent to the third portion of the duodenum. Mild stranding adjacent to the Eulogio limb of the gastrojejunostomy. Prior gastroplasty. The pancreas is normal. Kidneys are normal. Colonic diverticulosis. Small bowel and large bowel are normal. Preserved vertebral body heights. Normal alignment. Impression: Abnormal stranding at the third portion of the duodenum suggestive of duodenitis versus ulcer disease. Mild stranding adjacent to the distal aspect of the Eulogio limb of the gastrojejunostomy. These findings are associated with acute inflammation of unclear etiology. No other evidence of acute abnormality. Dictated by: Isiah Lee M.D. Images and Report reviewed and interpreted by: Isiah Lee M.D. <PS><Electronically signed by: Isiah Lee M.D.> 04/09/20242233 2230 2230 Procedure Note Isiah Lee MD - 04/09/2024 REVIEWING YOUR TEST RESULTS IN [facility] NOT A SUBSTITUTE FORDISCUSSING THOSE RESULTS WITH YOUR HEALTH CARE PROVIDER. PLEASE CONTACT YOUR PROVIDER [facility] TO DISCUSS ANY QUESTIONS ORCONCERNS YOU MAY HAVE REGARDING THESE TEST RESULTS. RADIOLOGY REPORT FACILITY: [facility] UNIT/AGE/GENDER: M.ED ER AGE:58 Y SEX:F PATIENT NAME/: AMBIKA PRATT TURNER 1965 UNIT NUMBER: [id number] ACCESSION NUMBER: [id number] Examination: CT angiography of the abdomen and pelvis with contrast. History: Epigastric pain radiating to the back Technique: Multiple thin slice axial CT images were obtained from the dome of the diaphragm through the pubis following the dynamic intravenous administration of 100 mL of Isovue-370. Post processing 2D MIP images were obtained. Per CMS specifications, dose optimization techniques including at least one of the following were performed, as appropriate: Automated exposure control, adjustment of the mA and/or kV according to the patient's size, use of iterative reconstruction techniques. Findings: Lungs are clear. Cardiac silhouette is normal. The liver is normal. Prior cholecystectomy. Abnormal stranding adjacent to the third portion of the duodenum. Mild stranding adjacent to the Eulogio limb of the gastrojejunostomy. Prior gastroplasty. The pancreas is normal. Kidneys are normal. Colonic diverticulosis. Small bowel and large bowel are normal. Preserved vertebral body heights. Normal alignment. Impression: Abnormal stranding at the third portion of the duodenum suggestive of duodenitis versus ulcer disease. Mild stranding adjacent to the distal aspect of the Eulogio limb of the gastrojejunostomy. These findings are associated with acute inflammation of unclear etiology. No other evidence of acute abnormality. Dictated by: Isiah Lee M.D. Images and Report reviewed and interpreted by: Isiah Lee M.D. <PS><Electronically signed by: Isiah Lee M.D.> 04/09/20242233 2230 2230 us Carlos Cannon MD IMG CT ORDERABLES Final Result * Lipase (04/09/2024 8:53 PM EST) Only the most recent of2 resultswithin the time period is included. Lipase 17 0 - 59 U/L 04/09/2024 9:22 PM EST [facility] Blood VENOUS BLOOD SPECIMEN / Unknown Venipuncture / Unknown 04/09/2024 8:53 PM EST 04/09/2024 9:02 PM EST us Carlos Cannon MD LAB BLOOD ORDERABLES Final Resul t Performing Organization Address City/State/[facility] Co de Phone Number [facility] [address] [place] [phone] * EKG 12 lead (04/09/2024 7:31 PM EST) 04/09/2024 7:31 PM EST Narrative [facility] - 04/10/2024 7:35 AM EST CARDIOLOGY REPORT FACILITY: [facility] PATIENT NAME/: AMBIKA PRATT 1965 UNIT/AGE/GENDER: AGE: 58 YR GENDER: F UNIT NUMBER: [id number] ACCESSION NUMBER: [id number] DATE OF EXAM: 04/09/2024 19:31 EXAMINATION(S): ECG 12-LEAD FINAL REPORT Procedure: ELECTROCARDIOGRAM RESULT Heart Rate 73 P-R Interval 144 ms QRS Interval 96 ms QT Interval 428 ms QTC Interval 472 ms P [place] 33 deg QRS [place] -2 deg T Wave [place] 45 deg DATE: 04/09/2024 19:31 SINUS RHYTHM LATE PRECORDIAL R/S TRANSITION NONSPECIFIC ST-T WAVE CHANGES NO PRIOR TRACING FOR COMPARISON Electronically signed by Marco Antonio Smith M.D. 04/10/2024 07:35 Procedure Note Marco Antonio Smith MD - 04/10/2024 CARDIOLOGY REPORT FACILITY: [facility] PATIENT NAME/: AMBIKA PRATT 1965 UNIT/AGE/GENDER: AGE: 58 YR GENDER: F UNIT NUMBER: [id number] ACCESSION NUMBER: [id number] DATE OF EXAM: 04/09/2024 19:31 EXAMINATION(S): ECG 12-LEAD FINAL REPORT Procedure: ELECTROCARDIOGRAM RESULT Heart Rate 73 P-R Interval 144 ms QRS Interval 96 ms QT Interval 428 ms QTC Interval 472 ms P [place] 33 deg QRS [place] -2 deg T Wave [place] 45 deg DATE: 04/09/2024 19:31 SINUS RHYTHM LATE PRECORDIAL R/S TRANSITION NONSPECIFIC ST-T WAVE CHANGES NO PRIOR TRACING FOR COMPARISON Electronically signed by Marco Antonio Smith M.D. 04/10/2024 07:35 us Carlos Cannon MD ECG ORDERABLES Final Result [facility] * (ABNORMAL) Urinalysis (04/09/2024 7:25 PM EST) Only the most recent of2 resultswithin the time period is included. Color, Urine Colorless 04/09/2024 7:44 PM EST [facility] Clarity, Urine Clear 04/09/2024 7:44 PM EST [facility] Specific [place], Urine 1.008 1.005 - 1.030 [arb'U] 04/09/2024 7:44 PM EST [facility] pH, Urine 5.5 5.0 - 9.0 [pH] 04/09/2024 7:44 PM EST [facility] Protein, Urine Negative Negative, 10 mg/dL, 15 mg/dL, 20 mg/dL, Trace 04/09/2024 7:44 PM [facility] Glucose, Urine Negative Negative 04/09/2024 7:44 PM [facility] Ketones, Urine Negative Negative 04/09/2024 7:44 PM [facility] Bilirubin, Urine Negative Negative mg/dL 04/09/2024 7:44 PM [facility] Blood, Urine Negative Negative [arb'U] 04/09/2024 7:44 PM [facility] Nitrite, Urine Negative Negative 04/09/2024 7:44 PM [facility] Urobilinogen, Urine Normal Normal 04/09/2024 7:44 PM [facility] Leukocyte Esterase, Urine 500 Sena/uL(A) Negative 04/09/2024 7:44 PM [facility] Reflex Microscopic? 04/09/2024 7:44 PM [facility] Comment:Microscopic performe d Red Blood Cells, Urine 1 0 - 2 [HPF] 04/09/2024 7:44 PM [facility] White Blood Cells, Urine 40(H) 0 - 3 [HPF] 04/09/2024 7:44 PM [facility] Squamous Epithelial Cells, Urine <1 0 - 4 [HPF] 04/09/2024 7:44 PM [facility] Bacteria, Urine None None [HPF] 04/09/2024 7:44 PM [facility] Urine MID-STREAM URINE SPECIMEN / Unknown Non-blood Collection / Unknown 04/09/2024 7:25 PM EST 04/09/2024 7:35 PM EST us Carlos Cannon MD URINE ORDERABLES Final Result [facility] [address] [place] [address] * High Sensitivity Troponin-I (04/09/2024 4:04 PM EST) Troponin-I, High Sensitivity 3 0 - 14 pg/mL 04/09/2024 7:05 PM EST [facility] Blood VENOUS BLOOD SPECIMEN / Unknown Venipuncture / Unknown 04/09/2024 4:04 PM EST 04/09/2024 4:26 PM EST us Carlos Cannon MD LAB BLOOD ORDERABLES Final Resul t [facility] [address] [place] [address] * FL Upper GI & Small Bowel (02/12/2024 11:13 AM EDT) Pathologist [facility] RAD WORKSTATION ID [id number] CO POWERSCRIBE Anatomical Region Laterality Modality Abdomen [facility] Radiographic Imaging 02/12/2024 1:44 PM EDT Narrative 02/12/2024 4:00 PM EDT REVIEWING YOUR TEST RESULTS IN [facility] NOT A SUBSTITUTE FOR DISCUSSING THOSE RESULTS WITH YOUR HEALTH CARE PROVIDER. PLEASE CONTACT YOUR PROVIDER VIA [facility] TO DISCUSS ANY QUESTIONS OR CONCERNS YOU MAY HAVE REGARDING THESE TEST RESULTS. RADIOLOGY REPORT FACILITY: [facility] UNIT/AGE/GENDER: MORRO OP AGE:58 Y SEX:F PATIENT NAME/: AMBIKA PRATT TURNER 1965 UNIT NUMBER: [id number] ACCESSION NUMBER: [id number] EXAMINATION: Limited Upper Gastrointestinal Exam HISTORY: Periumbilical pain, evaluate for possible recurrence of internal hernia COMPARISON: None FLUOROSCOPY TIME: 0.8 minute DOSE AREA PRODUCT: 4280 mGy*m2 IMAGES SAVED: 23 FINDINGS: Clinical Research Analyst radiograph of the abdomen demonstrates postsurgical changes in the left upper quadrant. The bowel gas pattern is normal. Limited single contrast upper gastrointestinal exam shows no evidence of a leak at the level of the gastrojejunostomy. There is normal flow of contrast from the gastric pouch to the jejunum. Following the upper gastrointestinal series the patient orally consumed additional barium and overhead plain films were obtained as per small bowel series protocol. Contrast was seen reaching the terminal ileum at approximately 40 minutes. The entire small bowel was palpated under fluoroscopy and the patient elicited no symptoms. The small bowel loops are well defined and show no evidence of stricture, dilatation, or ulcerations. IMPRESSION: No radiographic evidence of postsurgical leak, obstruction, or recurrent hiatal hernia. Dictated by: Diana Peña APRN Images and Report reviewed and interpreted by: Jose A Little M.D. <PS><Electronically signed by: Jose A Little M.D.> 02/12/2024 1559 1344 1344 Procedure Note Diana Peña APRN - 02/12/2024 REVIEWING YOUR TEST RESULTS IN [facility] NOT A SUBSTITUTE FORDISCUSSING THOSE RESULTS WITH YOUR HEALTH CARE PROVIDER. PLEASE CONTACT YOUR PROVIDER VIA [employer] TO DISCUSS ANY QUESTIONS ORCONCERNS YOU MAY HAVE REGARDING THESE TEST RESULTS. RADIOLOGY REPORT FACILITY: [facility] UNIT/AGE/GENDER: D.RAD OP AGE:58 Y SEX:F PATIENT NAME/: AMBIKA PRATT TURNER 1965 UNIT NUMBER: [id number] ACCESSION NUMBER: [id number] EXAMINATION: Limited Upper Gastrointestinal Exam HISTORY: Periumbilical pain, evaluate for possible recurrence of internal hernia COMPARISON: None FLUOROSCOPY TIME: 0.8 minute DOSE AREA PRODUCT: 4280 mGy*m2 IMAGES SAVED: 23 FINDINGS: Clinical Research Analyst radiograph of the abdomen demonstrates postsurgical changes in the left upper quadrant. The bowel gas pattern is normal. Limited single contrast upper gastrointestinal exam shows no evidence of a leak at the level of the gastrojejunostomy. There is normal flow of contrast from the gastric pouch to the jejunum. Following the upper gastrointestinal series the patient orally consumed additional barium and overhead plain films were obtained as per small bowel series protocol. Contrast was seen reaching the terminal ileum at approximately 40 minutes. The entire small bowel was palpated under fluoroscopy and the patient elicited no symptoms. The small bowel loops are well defined and show no evidence of stricture, dilatation, or ulcerations. IMPRESSION: No radiographic evidence of postsurgical leak, obstruction, or recurrent hiatal hernia. Dictated by: Diana Peña APRN Images and Report reviewed and interpreted by: Jose A Little M.D. <PS><Electronically signed by: Jose A Little M.D.> 02/12/2024 1559 1344 1344 James Cole MD IMG FLUOROSCOPY ORDERABLES Final Result * (ABNORMAL) Basic Metabolic Panel (BMP) (11/07/2021 3:30 AM EDT) Only the most recent of2 resultswithin the time period is included. Sodium 142 136 - 145 mmol/L 11/07/2021 4:05 AM [facility] Comment: (note) Excess protein and/or lipids can falsely decrease sodium levels (pseudo hyponatremia). Potassium 3.7 3.5 - 5.1 mmol/L 11/07/2021 4:05 AM [facility] Chloride 102 98 - 107 mmol/L 11/07/2021 4:05 AM [facility] Comment: (note) Falsely elevated chloride levels can be seen in patients taking medications which contain bromide. Carbon Dioxide 32(H) 22 - 29 mmol/L 11/07/2021 4:05 AM [facility] Anion Gap 8 5 - 13 (arb'U) 11/07/2021 4:05 AM [facility] Comment: (note) Calculation- Na - (Cl + CO2) Glucose 87 71 - 139 mg/dL 11/07/2021 4:05 AM [facility] Comment: (note) Reference range based on inpatient hypo/hyperglycemic treatment levels. A random glucose =/>200 is concerning for poor control. Blood Urea Nitrogen (BUN) 6(L) 10 - 20 mg/dL 11/07/2021 4:05 AM [facility] Creatinine-Blood 0.89 0.55 - 1.02 mg/dL 11/07/2021 4:05 AM [facility] BUN/Creatinine Ratio 6.7 RATIO 11/07/2021 4:05 AM [facility] Estimated GFR >60 >60 /1.73 m2 11/07/2021 4:05 AM [facility] Comment: (note) Results do not take into account body mass. Valid for patients 18 to 70 years of age. Estimated GFR if -Iranian >60 >60 /1.73 m2 11/07/2021 4:05 AM EDT [facility] Comment: (note) Results do not take into account body mass. Valid for patients 18 to 70 years of age. Calcium 9.3 8.4 - 10.2 mg/dL 11/07/2021 4:05 AM EDT [facility] Plasma specimen (specimen) BLOOD SPECIMEN FROM PATIENT / Unknown 11/07/2021 3:30 AM EDT 11/07/2021 3:39 AM EDT us Amanda Garcias MD LAB BLOOD ORDERABLES Final Result Performing Organization Address [facility]/[place] [address] [address] * Potassium (11/06/2021 12:28 PM EDT) Only the most recent of2 resultswithin the time period is included. Potassium 3.5 3.5 - 5.1 mmol/L 11/06/2021 12:48 PM EDT [facility] Plasma BLOOD SPECIMEN FROM PATIENT / Unknown 11/06/2021 12:28 PM EDT 11/06/2021 12:34 PM EDT us Forrest Garrison MD LAB BLOOD ORDERABLES Final Re sult Performing Organization Address [facility]/ZIP Co de Phone Number [address] [address] * C. difficile PCR /Toxin Detection (11/03/2021 6:46 PM EDT) Gove Score Gove Score 6 - loose stool acceptable for C. difficile testing (arb'U) 11/03/2021 6:56 PM EDT [facility] CDIFF PCR Negative Negative 11/03/2021 7:41 PM EDT [facility] Comment: Toxigenic C. difficile was not detected. This assay was conducted using polymerase chain reaction for the C. difficile toxin B gene. It is considered 94% sensitive and 94% specific for detection of C. difficile in stool specimens from symptomatic patients. Stool STOOL SPECIMEN / Unknown 11/03/2021 6:46 PM EDT 11/03/2021 6:52 PM EDT Iris Staley APRN MICROBIOLOGY - GENERAL ORDERAB LES Final Result Performing Organization Address [facility] [place] [address] [address] * Protime-INR (11/03/2021 5:30 PM EDT) [facility] Prothrombin Time 12.8 10.3 - 13.3 s 11/03/2021 5:54 PM EDT [facility] Comment: (note) Anticoagulants may alter the results of Laboratory Coagulation assays. New-generation anticoagulants such as direct Thrombin inhibitors (Dabigatran/Pradaxa, Argatroban, Bivalrudin) and direct/indirect factor Xa inhibitors (Rivaroxaban/Xarelto,Apixaban/Eliquis, Danaparoid/Orgaran, Fondaparinux/Arixtra) have been shown to affect the results of Laboratory Coagulation assays, creating falsely elevated or decreased values. Correlation with medication history is advised. INR 1.1 INR 11/03/2021 5:54 PM EDT [facility] Comment: INR Therapeutic Ranges: Low Intensity Range: 2.0-3.0 High Intensity Range: 3.0-4.5 Plasma specimen (specimen) BLOOD SPECIMEN FROM PATIENT / Unknown 11/03/2021 5:30 PM EDT 11/03/2021 5:37 PM EDT Forrest Garrison MD LAB BLOOD ORDERABLES Final Re sult Performing Organization Address [facility] Co de Phone Number [place] [phone] [address] [address] * Type and Screen (11/03/2021 5:28 PM EDT) ABO/Rh(D) O Negative 11/03/2021 6:33 PM EDT [facility] Antibody Screen Negative 11/03/2021 6:33 PM EDT [facility] Crossmatch Expiration 11/06/2021,2 359 11/03/2021 6:33 PM EDT [facility] Whole Blood BLOOD SPECIMEN FROM PATIENT / Unknown 11/03/2021 5:28 PM EDT 11/03/2021 5:40 PM EDT Jacque Pitts APRN BLOOD BANK TEST ORDERABLES Final Result Performing Organization Address City/[facility]/ZIP Co de Phone Number [address] [address] * Culture,Urine (11/03/2021 4:39 PM EDT) Culture 10,000 to 100,000 CFU/ML Mixed Rosa Elena Isolated. Multiple organisms present. Suggest appropriate recollection if clinically indicated. 11/04/2021 2:15 PM EDT [facility] Urine Midstream MID-STREAM URINE SPECIMEN / Unknown 11/03/2021 4:39 PM EDT 11/03/2021 5:02 PM EDT Iris Staley APRN MICROBIOLOGY - GENERAL ORDERAB LES Final Result [facility] [address] [place] [address] [facility] [address] [place] [address] * XR Abdomen FLat & Upr + CXR (11/03/2021 3:30 PM EDT) Anatomical Region Laterality Modality Abdomen [facility] Radiographic Imaging 11/03/2021 3:35 PM EDT Narrative 11/03/2021 3:37 PM EDT REVIEWING YOUR TEST RESULTS IN [facility] IS NOT A SUBSTITUTE FOR DISCUSSING THOSE RESULTS WITH YOUR HEALTH CARE PROVIDER. PLEASE CONTACT YOUR PROVIDER [employer]IA [employer] TO DISCUSS ANY QUESTIONS OR CONCERNS YOU MAY HAVE REGARDING THESE TEST RESULTS. RADIOLOGY REPORT FACILITY: [facility] UNIT/AGE/GENDER: Lamar7A IN AGE:55 Y SEX:F PATIENT NAME/: AMBIKA PRATT TURNER 1965 UNIT NUMBER: [id number] ACCESSION NUMBER: [id number] PA VIEW OF THE CHEST, 3 AP UPRIGHT AND SUPINE VIEWS OF THE ABDOMEN History: Possible small bowel obstruction Comparison: None Technique: XR ABDOMEN FLAT AND UPR + CXR Findings: The heart size is normal. The lungs are clear without focal consolidation, pleural effusion or pneumothorax. Midline surgical madeleine are seen over the abdomen. There is a dilated loop of small bowel in the left upper abdomen measuring 4 cm which demonstrates an air-fluid level on the upright view. No gas is seen within the rectum. Oral contrast material is seen within the colon Impression: Single loop of dilated small bowel containing an air-fluid level in the left upper abdomen, suspicious for small bowel obstruction Dictated by: Diana Allison M.D. Images and Report reviewed and interpreted by: Diana Allison M.D. <PS><Electronically signed by: Diana Allison M.D.> 11/03/2021 1536 [id number] 1535 Procedure Note Diana Allison MD - 11/03/2021 [facility] A [facility] FORDISCUSSING THOSE RESULTS WITH YOUR HEALTH CARE PROVIDER. PLEASE CONTACT YOUR PROVIDER [employer]IA [employer] TO DISCUSS ANY QUESTIONS ORCONCERNS YOU MAY HAVE REGARDING THESE TEST RESULTS. RADIOLOGY REPORT FACILITY: [facility] UNIT/AGE/GENDER: Lamar7A IN AGE:55 Y SEX:F PATIENT NAME/: AMBIKA PRATT TURNER 1965 UNIT NUMBER: [id number] ACCESSION NUMBER: [id number] PA VIEW OF THE CHEST, 3 AP UPRIGHT AND SUPINE VIEWS OF THE ABDOMEN History: Possible small bowel obstruction Comparison: None Technique: XR ABDOMEN FLAT AND UPR + CXR Findings: The heart size is normal. The lungs are clear without focal consolidation,pleural effusion or pneumothorax. Midline surgical madeleine are seen over the abdomen. There is a dilatedloop of small bowel in the left upper abdomen measuring 4 cm whichdemonstrates an air-fluid level on the upright view. No gas is seen withinthe rectum. Oral contrast material is seen within the colon Impression: Single loop of dilated small bowel containing an air-fluid level in theleft upper abdomen, suspicious for small bowel obstruction Dictated by: Diana Allison M.D. Images and Report reviewed and interpreted by: Diana Allison M.D. <PS><Electronically signed by: Diana Allison M.D.> 11/03/2021 1536 1535 1535 James Cole MD IMG DIAGNOSTIC IMAGING ORDERABLE S Final Result * Ova and Parasite Examination (11/03/2021 3:24 PM EDT) Ova and Parasite Examination No ova or parasites observed. 11/04/2021 2:26 PM EDT [facility] Stool STOOL SPECIMEN / Unknown 11/03/2021 3:24 PM EDT 11/03/2021 6:55 PM EDT Comment:Random Iris Staley APRN MICROBIOLOGY - GENERAL ORDERAB LES Final Result [facility] [address] [place] [address] [facility] [address] [place] [address] * Stool Culture and Shiga Toxin Assay (11/03/2021 3:24 PM EDT) Shiga Toxin Assay (Stool) No Shiga Toxin Detected. 11/06/2021 5:11 AM EDT [facility] Culture No Salmonella , Shigella, Campylobac ter, Yersinia, or E.coli 0157 isolated. 11/06/2021 11:10 AM EDT [facility] Stool STOOL SPECIMEN / Unknown 11/03/2021 3:24 PM EDT 11/03/2021 6:55 PM EDT Comment:Random us Iris Nivia Staley RADIO SALES ACCOUNT EXECUTIVE MICROBIOLOGY - GENERAL ORDERAB LES Final Result [facility] [address] [place], [place] [id number] [facility] [address] [place] [address] Visit Diagnoses Diagnosis Start Date SBO (small bowel obstruction) Unspecified intestinal obstruction 11/04/2021 Small bowel obstruction due to postoperative adhesions 11/02/2021 Morbid obesity with BMI of 45.0-49.9, adult 11/02/2021 Diabetes mellitus type 2 in obese Type II or unspecified type diabetes mellitus without mention of complication, not stated as uncontrolled 11/02/2021 Hypothyroidism, unspecified type 11/02/2021 Primary hypertension Unspecified essential hypertension 11/02/2021 SBO (small bowel obstruction) Unspecified intestinal obstruction 11/02/2021 Bariatric surgery status 02/05/2024 Class 3 severe obesity due to excess calories with serious comorbidity and body mass index (BMI) of 45.0 to 49.9 in adult 02/05/2024 Primary hypertension Unspecified essential hypertension 02/05/2024 Periumbilical pain Abdominal pain, periumbilic 02/05/2024 Periumbilical pain Abdominal pain, periumbilic 02/12/2024 Bariatric surgery status 02/12/2024 Class 3 severe obesity due to excess calories with serious comorbidity and body mass index (BMI) of 45.0 to 49.9 in adult 02/12/2024 Epigastric pain Abdominal pain, epigastric 04/10/2024 Intractable pain 04/09/2024 Abdominal pain, unspecified abdominal location 04/09/2024 Epigastric pain Abdominal pain, epigastric 04/09/2024 SBO (small bowel obstruction) Unspecified intestinal obstruction 11/02/2021 Morbid obesity with BMI of 45.0-49.9, adult 11/02/2021 Hypertension Unspecified essential hypertension 11/02/2021 Diabetes mellitus type 2 in obese Type II or unspecified type diabetes mellitus without mention of complication, not stated as uncontrolled 11/02/2021 COPD (chronic obstructive pulmonary disease) Chronic airway obstruction, not elsewhere classified 11/02/2021 Hypothyroidism Unspecified hypothyroidism 11/02/2021 Former smoker Personal history of tobacco use, presenting hazards to health 11/02/2021 Small bowel obstruction due to postoperative adhesions 11/02/2021 Abdominal pain, duodenitis versus ulcer disease Abdominal pain, unspecified site 04/09/2024 COPD (chronic obstructive pulmonary disease) Chronic airway obstruction, not elsewhere classified 04/09/2024 Type 2 diabetes mellitus with obesity 04/09/2024 Former smoker Personal history of tobacco use, presenting hazards to health 04/09/2024 Hypertension Unspecified essential hypertension 04/09/2024 Hypothyroidism Unspecified hypothyroidism 04/09/2024 Morbid obesity with BMI of 45.0-49.9, adult 04/09/2024 Depression Depressive disorder, not elsewhere classified 04/09/2024 Care Teams Americanization Teacher Relationship Specialty Start Date End Date Salima Gonzáles MD [address] [place] [address] PCP - General Family Medicine 11/02/21
--- OUTSIDE RECORDS SUMMARY | 2024-11-25 21:47 | XMS_ITS | Encounter Summary ---
Author Organization [employer] ([place], [place], [place], [place]) Address [address] [place] [address] Care Team Providers Care Bread Dumper Name Role Phone Salima Gonzáles DO Primary Care Provider [phone] Encounter Details Date Type Department Care Team (Late st Contact Info) Description 10/05/2020 Transcribed Document [facility] [place] [address] [place] [address] ProviderQuincy MD [address] [place] [address] Social History Tobacco Use Types Packs/Day Years Used Date Smoking Tobacco: Never Assessed Comments Unknown Sex and Gender Information Value Date Recorded Sex Assigned at Not on file Legal Sex Female 2:54 PM CDT Gender Identity Not on file Sexual Orientation Not on file documented as of this encounter Miscellaneous Notes * Cerner Conversion Note - Quincy Kate MD - 10/05/2020 1:56 PM CDT Initial Discharge Planning Entered On: 10/05/2020 14:02 EDT Performed On: 10/05/2020 13:56 EDT by EVONNE GABRIEL, DIANE-R Programmer Initial Assessment I Previously Documented Living Environment [...] Is Guardianship Needed : No EVONNE GABRIEL RN-R Programmer - 10/05/2020 13:56 EDT Initial Assessment II Sensory and Motor Deficits : None Current Home Treatments and Equipment : Nebulizer Services and Community Resources : Home Health (Comment: Pt states that she has used a couple of HH agencies in the past after her knee replacement [EVONNE GABRIEL RN-R Programmer - 10/05/2020 13:56 EDT] ) Services and Community Resources Addl Comments : Signature of Nayeli nath 8-9 years ago after knee replacement EVONNE GABRIEL RN-R Programmer - 10/05/2020 13:56 EDT Discharge Needs I Anticipated Discharge Date : 10/05/2020 EDT Anticipated Discharge To, CM : Home independently Current Home Treatment/Equipment : Current Home Treatment/Equipment No qualifying data available. Post Acute/Home Treatments : None Documentation Status Complete : Yes EVONNE GABRIEL RN-R Programmer - 10/05/2020 13:56 EDT Discharge Needs II Professional Skilled Services : Professional Skilled Services No qualifying data available. Needs Assistance with Transportation : No EVONNE GABRIEL RN-R Programmer - 10/05/2020 13:56 EDT Narrative Note Narrative Note : Received from [facility] to here due to kidney stone. Urology consulted. Pt had ureteroscopy, laser lithotripsy with stent placement. Met with Pt at the bedside. Role of CM explained. Pt states that she is ADL independent, lives home alone. Plans are to return home when discharged. No needs antcipated/verbalized at this time. RRS is low @ 37, boost 5. CM will follow. EVONNE GABRIEL RN-R Programmer - 10/05/2020 13:56 EDT documented in this encounter Plan of Treatment Not on file documented as of this encounter Visit Diagnoses Not on filedocumented in this encounter Care Teams Bread Dumper Relationship Specialty Start Date End Date Salima Gonzáles, DO [address] [facility] [address] [place] [address] PCP - General Family Medicine 02/09/23 documented as of this encounter
--- OUTSIDE RECORDS SUMMARY | 2024-11-25 21:47 | XMS_ITS | Encounter Summary ---
Author Organization [employer] ([place], [place], [place], [place]) Address [address] [place] [address] Care Team Providers Care Greenskeeper Name Role Phone Salima Gonzáles Primary Care Provider [phone] Encounter Details Date Type Department Care Team (Late st Contact Info) Description 10/05/2020 Transcribed Document [facility] [place] [address] [place] [address] ProviderQuincy MD [address] [place], [place] [id number] Social History Tobacco Use Types Packs/Day Years Used Date Smoking Tobacco: Never Assessed Comments Unknown Sex and Gender Information Value Date Recorded Sex Assigned at Not on file Legal Sex Female 2:54 PM CDT Gender Identity Not on file Sexual Orientation Not on file documented as of this encounter Miscellaneous Notes * Cerner Conversion Note - Quincy Kate MD - 10/05/2020 4:31 PM CDT Nursing Discharge [...] on filedocumented in this encounter Care Teams Greenskeeper Relationship Specialty Start Date End Date Salima Gonzáles, 8 [facility] [address] [place] [address] PCP - General Family Medicine 02/09/23 documented as of this encounter
--- OUTSIDE RECORDS SUMMARY | 2024-11-25 21:47 | XMS_ITS | Encounter Summary ---
Author Organization [employer] ([place], [place], [place], [place]) Address [address] [place] [address] Care Team Providers Care Small Business Representative Name Role Phone Salima Gonzáles Primary Care Provider [phone] Encounter Details Date Type Department Care Team (Late st Contact Info) Description 10/08/2019 Transcribed Document [facility] [place] [address] [place] [address] ProviderQuincy MD [address] [place], [place] [address] Social History Tobacco Use Types Packs/Day Years [...] Kate MD - 10/08/2019 9:30 AM CDT [facility] PreOp Summary Primary Physician: WARREN MANRIQUE MD Finalized Date/Time: 10/08/19 09:35:21 Pt. Name: AMBIKA PIERRE/Sex: 1965 Female Med Rec #: [id number] Physician: WARREN MANRIQUE MD Financial #: [id number] Pt. Type: O Room/Bed: / Admit/Disch: 10/08/19 08:47:00 - [facility] PreOp Case Times Entry 1 In Preop 10/08/19 09:08:00 Ready for Holding n/a Room Patient Ready for n/a Surgery Patient Out of Preop 10/08/19 09:33:00 Patient Out of n/a Holding Room Last Modified By: Whitney Huynh Rn 10/08/19 09:35:13 [facility] End[facility] PreOp Case Times Audit 10/08/19 09:35:13 Optical Engineer: [email or web address] Modifier: [email or web address] <+> 1 Patient Out of Preop Finalized By: Whitney Huynh Rn Document Signatures Signed By: Whitney Huynh Rn 10/08/19 09:35 Electronically signed by [facility] Conversion Bisque Tile Burner Cerner at 08/23/2022 10:54 AM CDT documented in this encounter Plan of Treatment Not on file documented as of this encounter Visit Diagnoses Not on filedocumented in this encounter Care Teams Small Business Representative Relationship Specialty Start Date End Date Salima Gonzáles, 8 [facility] [address] [place] [address] PCP - General Family Medicine 02/09/23 documented as of this encounter
--- OUTSIDE RECORDS SUMMARY | 2024-11-25 21:47 | XMS_ITS | Encounter Summary ---
Author Organization [employer] ([place], [place], [place], [place]) Address [address] [place] [address] Care Team Providers Care Coding Team Lead Name Role Phone Salima Gonzáles DO Primary Care Provider [phone] Encounter Details Date Type Department Care Team (Late st Contact Info) Description 10/04/2020 Transcribed Document [facility] [place] [address] [place] [address] ProviderQuincy MD [address] [place] [address] Social History Tobacco Use Types [...] - Quincy Kate MD - 10/04/2020 5:00 PM CDT Chart Check - Review Order Profile Entered On: 10/04/2020 16:48 EDT Performed On: 10/04/2020 17:00 EDT by Hoa Coleman RN Chart Check Powerplans Initiated/Discontinued as Appropriate : Yes All Active Orders Reviewed : Yes Hoa Coleman RN - 10/04/2020 16:48 EDT Electronically signed by [facility] Conversion Baseball Inspector And Repairer Cerner at 08/23/2022 11:04 AM CDT documented in this encounter Plan of Treatment Not on file documented as of this encounter Visit Diagnoses Not on filedocumented in this encounter Care Teams Coding Team Lead Relationship Specialty Start Date End Date Salima Gonzáles, DO [address] [place] [address] PCP - General Family Medicine 02/09/23 documented as of this encounter
--- OUTSIDE RECORDS SUMMARY | 2024-11-25 21:47 | XMS_ITS | Encounter Summary ---
Author Organization [employer] ([place], [place], [place], [place]) Address [address] [place] [address] Care Team Providers Care Records Clerk Name Role Phone Salima Gonzáles Primary Care Provider [phone] Encounter Details Date Type Department Care Team (Late st Contact Info) Description 10/04/2020 Transcribed Document [facility] [place] [address] [place] [address] ProviderQuincy MD [address] [place], [place] [id number] Social History Tobacco Use Types Packs/Day Years Used Date Smoking Tobacco: Never Assessed Comments Unknown Sex and Gender Information Value Date Recorded Sex Assigned at Not on file Legal Sex Female 2:54 PM CDT Gender Identity Not on file Sexual Orientation Not on file documented as of this encounter Miscellaneous Notes * Cerner Conversion Note - Quincy Kate MD - 10/04/2020 2:00 AM CDT Facilities Administrator Details Entered On: 10/04/2020 4:12 EDT Performed [...] EDT Electronically signed by Nuzhat Barahona Conversion Screen Printing Stencil Preparer Cerner at 08/23/2022 11:04 AM CDT documented in this encounter Plan of Treatment Not on file documented as of this encounter Visit Diagnoses Not on filedocumented in this encounter Care Teams Records Clerk Relationship Specialty Start Date End Date Salima Gonzáles DO [address] [address] PCP - General Family Medicine 02/09/23 documented as of this encounter
--- OUTSIDE RECORDS SUMMARY | 2024-11-25 21:47 | XMS_ITS | Encounter Summary ---
Author Organization [employer] ([place], [place], [place], [place]) Address [address] [place] [address] Care Team Providers Care Motor Winder Name Role Phone Salima Gonzáles Primary Care Provider [phone] Encounter Details Date Type Department Care Team (Late st Contact Info) Description 10/05/2020 Transcribed Document [facility] [place] Family Medicine [address] [place] [address] ProviderQuincy MD [address] [place], [place] [id number] Social History Tobacco Use Types Packs/Day Years Used Date Smoking Tobacco: Never Assessed Comments Unknown Sex and Gender Information Value Date Recorded Sex Assigned at Not on file Legal Sex Female 2:54 PM CDT Gender Identity Not on file Sexual Orientation Not on file documented as of this encounter Miscellaneous Notes * Cerner Conversion Note - Quincy ProviderMD - 10/05/2020 2:00 AM CDT Woolen Tester Details Entered On: 10/05/2020 3:28 EDT Performed [...] on filedocumented in this encounter Care Teams Motor Winder Relationship Specialty Start Date End Date Salima Gonzáles DO [address] [address] PCP - General Family Medicine 02/09/23 documented as of this encounter
--- OUTSIDE RECORDS SUMMARY | 2024-11-25 21:47 | XMS_ITS | Encounter Summary ---
Author Organization [employer] ([place], [place], [place], [place]) Address [address] [place] [address] Care Team Providers Care Dock Clerk Name Role Phone Salima Gonzáles Primary Care Provider [phone] Encounter Details Date Type Department Care Team (Late st Contact Info) Description 10/08/2019 Transcribed Document [facility] [place] Medicine [address] [place] [address] ProviderQuincy MD [address] [place], [place] [address] Social History Tobacco Use Types Packs/Day Years [...] Kate MD - 10/08/2019 9:47 AM CDT [facility] Endo IntraOp Summary Primary Physician: WARREN MANRIQUE MD Finalized Date/Time: 10/08/19 10:06:04 Pt. Name: AMBIKA PIERRE/Sex: 1965 Female Med Rec #: [id number] Physician: WARREN MANRIQUE MD Financial #: [id number] Pt. Type: O Room/Bed: / Admit/Disch: 10/08/19 08:47:00 - Institution: [facility] Endo - Case Attendance Entry 1 Entry 2 Entry 3 Case Attendee WARREN MANRIQUE MD DUNHAM, JEANNIE Thayer Elizabeth, RN Role Performed Surgeon/Proceduralist, Scrub, Parking Enforcement Technician, First First Time In 10/08/19 09:38:00 10/08/19 09:38:00 10/08/19 09:38:00 Time Out 10/08/19 10:06:00 10/08/19 10:06:00 10/08/19 10:06:00 Procedure Esophagogastroduodenosco Gastric Biopsy, Colon Gastric Biopsy, Colon py, Colonoscopy, Biopsy Biopsy Gastric Biopsy, Colon Biopsy Other Attendee Superficial Wound Closed By: Last Modified By: Elizabeth Anaya, Elizabeth Schilling, Elizabeth Schilling, DIANE 10/08/19 10:03:23 10/08/19 10:03:23 10/08/19 10:03:23 Entry 4 Entry 5 Entry 6 Case Attendee CASSI MARISCAL Hattie, DAKOTA Amaya MD-LUZ Role Performed Scrub, First OUTSIDE SALESPERSON/Nurse Beverage Specialist Anesthesiologist of Record Time In 10/08/19 09:38:00 10/08/19 09:38:00 10/08/19 09:38:00 Time Out 10/08/19 10:06:00 10/08/19 10:06:00 10/08/19 10:06:00 Procedure Gastric Biopsy, Colon Gastric Biopsy, Colon Gastric Biopsy, Colon Biopsy Biopsy Biopsy Other Attendee Superficial Wound Closed By: Last Modified By: Elizabeth Anaya RN Thayer, Dena, Elizabeth Schilling RN 10/08/19 10:03:23 10/08/19 10:03:23 10/08/19 10:03:23 [facility] Endo - Case Attendance Audit 10/08/19 10:03:23 Math And Science Instructor: [id number] Modifier: [id number] <+> Time Out 1 <*> Procedure [...] Procedure Gastric Biopsy, Colon Biopsy 10/08/19 10:02:21 Math And Science Instructor: [id number] Modifier: [id number] <*> Procedure Esophagogastroduodenoscopy, Colonoscopy, Gastric Biopsy 2 <*> Procedure Gastric Biopsy 3 <*> Procedure Gastric Biopsy 4 <*> Procedure Gastric Biopsy 5 <*> Procedure Gastric Biopsy 6 <*> Procedure Gastric Biopsy 10/08/19 09:50:05 Math And Science Instructor: [id number] Modifier: [id number] 1 <*> Procedure Esophagogastroduodenoscopy, Colonoscopy <+> 2 Procedure <+> 3 Procedure <+> 4 Procedure <+> 5 Procedure <+> 6 Procedure 10/08/19 09:39:56 Math And Science Instructor: [id number] Modifier: [id number] 1 <+> Time In 1 <*> Procedure Esophagogastroduodenoscopy, Colonoscopy <+> 2 Time In <+> 3 Time In <+> 4 Time In <+> 5 Time In <+> 6 Time In 10/08/19 09:31:42 Math And Science Instructor: [id number] Modifier: [id number] <+> 2 Case Attendee <+> 2 Role Performed <+> 3 Case Attendee <+> 3 Role Performed <+> 4 Case Attendee <+> 4 Role Performed <+> 5 Case Attendee <+> 5 Role Performed <+> 6 Case Attendee <+> 6 Role Performed [facility] Endo - Case times Entry 1 Patient In Room Time 10/08/19 09:38:00 Out Room Time 10/08/19 10:06:00 Anesthesia Start Time 10/08/19 09:38:00 Stop Time 10/08/19 10:06:00 Surgery / Procedure Times Start Time 10/08/19 09:47:00 Stop Time 10/08/19 10:03:00 Last Modified By: Elizabeth Anaya RN 10/08/19 10:03:21 [facility] Endo - Case times Audit 10/08/19 10:03:21 Math And Science Instructor: [id number] Modifier: [id number] <+> 1 Out Room Time <+> 1 Stop Time <+> 1 Stop Time 10/08/19 09:47:20 Math And Science Instructor: [id number] Modifier: [id number] <+> 1 Start Time [facility] Endo - Cultures and Spec Summary Entry 1 Cultrures and Specimens Specimen Ordered: Yes Test(s) Routine/Path-Lab Requested/Final Disposition Last Modified By: Elizabeth Anaya RN 10/08/19 09:50:17 [facility] Endo - Delays Entry 1 Delay Reason No Delay Duration 0 Minute(s) Last Modified By: Elizabeth Anaya RN 10/08/19 09:32:22 [facility] Endo - Departure from OR Entry 1 Integumentary Assessment Integumentary WDL Assessment WDL Transfer/Handoff Transfer to PACU Phase I Handoff Method Bedside/Face to face Post-op Transport Stretcher/Gurney Via Patient Transport Claudia Dupree Crna Accompanied by Last Modified By: Elizabeth Anaya RN 10/08/19 09:32:45 [facility] Endo - Endoscopy Details Entry 1 Abdomen Procedure Soft, Non-Tender Assessment Procedure Abdomen 10/08/19 09:32:00 Assessment D/T Radio Frequency Ablation Abdominal Pressure Last Modified By: Elizabeth Anaya RN 10/08/19 09:32:34 [facility] Endo - Fire Risk Assessment Entry 1 Fire Info Surgical Site or 1- Yes Incision Above the Xyphoid Open O2 Source 1- Yes (Mask or Cannula) Available Ignition 1- Yes (ESU, Laser, Light Source) Fire Risk 3 Assessment Score Fire Score Fire Risk Yes Assessment Complete Fire Risk Elizabeth Anaya, backend tester Verified By Fire Risk 10/08/19 09:32:00 Assessment Verified Date/Time Fire Risk High Risk Protocol Yes Implemented Standard Fire Yes Safety Precautions Followed Last Modified By: Elizabeth Anaya RN 10/08/19 09:33:30 [facility] Endo - Fire Risk Assessment Audit 10/08/19 09:33:30 Math And Science Instructor: [id number] Modifier: [id number] <+> 1 Fire Risk Assessment Complete [facility] Endo - General Case Body Coverer 1 Case Information OR Endo 03 [facility] Case Level 1 Room Verified Yes Wound Class III - Contaminated Specialty SN Gastroenterology Anesthesia Type General ASA Class 4 Diagnosis Preop Diagnosis dyspepsia, change in bowel habits Postop Same As Preop No Postop Diagnosis Chronic gastritis, history gastric bypass Last Modified By: Elizabeth Anaya RN 10/08/19 09:52:07 [facility] Endo - General Case Data Audit 10/08/19 09:52:07 Math And Science Instructor: [id number] Modifier: [id number] 1 <*> Postop Same As Preop Yes 1 <*> Postop Diagnosis dyspepsia, change in bowel habits 10/08/19 09:43:44 Math And Science Instructor: [id number] Modifier: [id number] 1 <*> Preop Diagnosis R19.7 R10.9 1 <*> Postop Diagnosis R19.7 R10.9 [facility] Endo - Intraoperative Assessment Entry 1 Valid History / Yes Physical in Chart Preoperative Yes Checklist Reviewed/Evaluated Patient is Latex No Sensitive Level of WDL Consciousness (WDL = Alert, Oriented to Person, Place, and Time) Last Modified By: Elizabeth Anaya RN 10/08/19 09:33:43 [facility] Endo - Intraoperative Equipment Entry 1 Equipment Intraop Monitoring Electrocardiogram Three lead placement (ECG) Electrode Placement Blood Pressure Arm, left upper Location Pulse Oximeter Hand, right Probe Site Antiembolic Devices Scopes Flexible Endoscopes Gastroscope Used Scope Serial E O Number/Identificatio n Number Photo/Video Documentation Photo Yes Video No Last Modified By: Elizabeth Anaya RN 10/08/19 09:43:26 [facility] Endo - Patient Positioning Entry 1 Procedure Esophagogastroduodenosco py, Gastric Biopsy, Colon Biopsy Body Position Lateral, right side up Left Arm Position Resting at side Right Arm Position Resting at side Left Leg Position Other Right Leg Position Other Position Comments Right leg over left leg, uncrossed Feet Uncrossed Yes Pressure Points Yes Checked Positioned By Claudia Dupree Crna, Elizabeth Anaya, DIANE Position Verified Positioning Yes Verified by Surgeon Last Modified By: Elizabeth Anaya RN 10/08/19 10:02:22 [facility] Endo - Patient Positioning Audit 10/08/19 10:02:22 Math And Science Instructor: [id number] Modifier: [id number] 1 <*> Procedure Esophagogastroduodenoscopy, Gastric Biopsy 10/08/19 09:50:05 Math And Science Instructor: [id number] Modifier: [id number] 1 <*> Procedure Esophagogastroduodenoscopy [facility] Endo - Sign In Entry 1 Patient, Site, Yes Procedure Identified Surgical Consent Yes Confirmed Surgical Site N/A Marked by person performing procedure Airway Hypothermia Risk No Warming Measures No Taken Last Modified By: Elizabeth Anaya RN 10/08/19 09:34:14 [facility] Endo - Sign Out Entry 1 RN Confirmation Surgical Yes Procedure(s) Identified Instrument, Sponge N/A and Sharps Counts Correct/Documented Equipment Problems N/A Documented Specimen Labeled Yes Correctly Urinary Catheter N/A Documented in [place] Safety Checklist Yes Elements Complete? RN Sign Out Elizabeth Anaya, DIANE Signature RN Sign Out 10/08/19 10:06:00 Signature [...] Modified By: Elizabeth Anaya RN 10/08/19 10:04:03 [facility] Endo - Surgical Procedures Entry 1 [...] Modified By: Elizabeth Anaya RN 10/08/19 10:03:34 [facility] Endo - Surgical Procedures Audit 10/08/19 10:03:34 Math And Science Instructor: [id number] Modifier: [id number] <*> Procedure Colonoscopy 2 <+> Stop <+> 4 Stop 10/08/19 10:02:18 Math And Science Instructor: [id number] Modifier: [id number] 2 <*> Procedure Colonoscopy 2 <*> Start 10/08/19 09:47:00 2 <+> Physician States Cecum Reached <+> 4 Procedure <+> 4 Primary Procedure <+> 4 Primary Surgeon <+> 4 Specialty <+> 4 Start <+> 4 Wound Class <+> 4 Anesthesia Type <+> 4 Additional Procedure Description <+> 4 Physician States Cecum Reached 10/08/19 09:51:41 Math And Science Instructor: [id number] Modifier: [id number] <*> Procedure Gastric Biopsy 3 <+> Stop 10/08/19 09:50:35 Math And Science Instructor: [id number] Modifier: [id number] 1 <*> Procedure Esophagogastroduodenoscopy 1 <+> Stop 10/08/19 09:50:01 Math And Science Instructor: [id number] Modifier: [id number] 1 <*> Procedure Esophagogastroduodenoscopy 1 <+> Start 1 <+> Additional Procedure Description <+> 2 Start <+> 3 Procedure <+> 3 Primary Procedure <+> 3 Primary Surgeon <+> 3 Specialty <+> 3 Start <+> 3 Wound Class <+> 3 Anesthesia Type <+> 3 Additional Procedure Description [facility] Endo - Time Out Entry 1 [...] Modified By: Elizabeth Anaya RN 10/08/19 10:02:22 [facility] Endo - Time Out Audit 10/08/19 10:02:22 Math And Science Instructor: [id number] Modifier: [id number] 1 <*> Procedure to be Performed Esophagogastroduodenoscopy, Colonoscopy, Gastric Biopsy 10/08/19 09:50:06 Math And Science Instructor: [id number] Modifier: [id number] 1 <*> Procedure to be Performed Esophagogastroduodenoscopy, Colonoscopy Case Comments <None> Finalized By: Elizabeth Anaya, RN Document Signatures Signed By: Elizabeth Anaya, RN 10/08/19 10:06 Electronically signed by [facility] Conversion Carpet Yarn Winder Operator Cerner at 08/23/2022 10:56 AM CDT documented in this encounter Plan of Treatment Not on file documented as of this encounter Visit Diagnoses Not on filedocumented in this encounter Care Teams Dock Clerk Relationship Specialty Start Date End Date Salima Gonzáles, DO [address] [facility] [address] [place] [address] PCP - General Family Medicine 02/09/23 documented as of this encounter
--- OUTSIDE RECORDS SUMMARY | 2024-11-25 21:47 | XMS_ITS | Encounter Summary ---
Author Organization [employer] ([place], [place], [place], [place]) Address [address] [place] [address] Care Team Providers Care Hall Porter Name Role Phone Anujlizbet Salima Tate SWANN Primary Care Provider [phone] Encounter Details Date Type Department Care Team (Late st Contact Info) Description 10/11/2020 Transcribed Document [facility] [place] [address] [place] [address] ProviderQuincy MD [address], [place] [id number] Social History Tobacco Use Types Packs/Day Years [...] : Insurance 1 Health Plan: [facility] MEDICARE REPL Policy Number: [id number] Authorization Number: Insurance Primary Name : [employer] MEDICARE REPL Policy Number: [id number] Authorization Status-Primary : Awaiting callback Reference Number-Primary : [id number] Authorized Service Begin Date-Primary : 10/03/2020 EDT Authorization Comments-Primary : Faxed dc summary via Michael Historical Authorization Comments-Primary : Comment 1: Remains pending per [employer] (PING HOFFMANN RN 10/11/2020 12:11) Comment 2: Email sent to madelyn (PING HOFFMANN RN 10/09/2020 15:11) Comment 3: Clinicals faxed via [employer] for IP approval (DEISY LIRA RN 10/05/2020 14:13) Comment 4: Clinicals submitted via [employer] for IP approval (DEISY LIRA RN 10/04/2020 08:24) PING HOFFMANN RN - 10/11/2020 12:12 EDT documented in this encounter Plan of Treatment Not on file documented as of this encounter Visit Diagnoses Not on filedocumented in this encounter Care Teams Hall Porter Relationship Specialty Start Date End Date Salima Gonzáles, 8 [facility] [address] [place] [address] PCP - General Family Medicine 02/09/23 documented as of this encounter
--- OUTSIDE RECORDS SUMMARY | 2024-11-25 21:47 | XMS_ITS | Encounter Summary ---
Author Organization [employer] ([place], [place], [place], [place]) Address [address] [place] [address] Care Team Providers Care Milling Machine Tender Name Role Phone Salima Gonzáles Primary Care Provider Encounter Details Date Type Department Care Team (Late st Contact Info) Description 10/04/2020 Transcribed Document [facility] [place] [address] [place] [address] ProviderQuincy MD [address] [place], [place] [id number] Social History Tobacco Use Types Packs/Day Years [...] Kate MD - 10/04/2020 1:16 PM CDT [facility] Main OR IntraOp Summary Primary Physician: ANNABEL ZAMBRANO MD-URO Finalized Date/Time: 10/10/20 09:57:38 Pt. Name: AMBIKA PIERRE/Sex: 1965 Female Med Rec #: [id number] Physician: SUREKHA ARGUELLES MD Financial #: [id number] Pt. Type: I Room/Bed: [facility]/ Admit/Disch: 10/03/20 18:06:00 - 10/05/20 16:59:00 Institution: [facility] IntraOp Case Attendance Entry 1 Entry 2 Entry 3 Case Attendee ANNABEL ZAMBRANO MD-URO Neha Duarte, Mendel Pierce, RN Role Performed Surgeon/Proceduralist, Personal Attendant, First Personal Attendant, Second First Time In 10/04/20 13:03:00 10/04/20 13:03:00 10/04/20 13:03:00 Time Out 10/04/20 13:54:00 10/04/20 13:54:00 10/04/20 13:54:00 Procedure Ureteroscopy(Left) Ureteroscopy(Left) Ureteroscopy(Left) Other Attendee LASER Superficial Wound Closed By: Last Modified By: Neha Duarte Rn Moore, Kimberly A, Rn Moore, Kimberly A, Rn 10/04/20 13:54:29 10/04/20 13:54:29 10/04/20 13:54:29 Entry 4 Entry 5 Case Attendee Prema Rojas, VERONICA UA MD-ANS Hall Monitor Role Performed Scrub, First Anesthesiologist Time In 10/04/20 13:03:00 10/04/20 13:03:00 Time Out 10/04/20 13:54:00 10/04/20 13:54:00 Procedure Ureteroscopy(Left) Ureteroscopy(Left) Other Attendee Superficial Wound Closed By: Last Modified By: Neha Duarte Rn Moore, Kimberly A, Rn 10/04/20 13:54:29 10/04/20 13:54:29 [facility] IntraOp Case Attendance Audit 10/04/20 13:54:29 Tool Design Checker: [id number] Modifier: [id number] <+> Time Out 1 <*> Procedure Ureteroscopy(Left) 2 <+> Time Out 2 <*> Procedure Ureteroscopy(Left) 3 <+> Time Out 3 <*> Procedure Ureteroscopy(Left) 4 <+> Time Out 4 <*> Procedure Ureteroscopy(Left) 5 <+> Time Out 5 <*> Procedure Ureteroscopy(Left) 10/04/20 13:43:04 Tool Design Checker: [id number] Modifier: [id number] <+> 1 Time In <+> 1 Procedure 2 <+> Time In 2 <*> Procedure Ureteroscopy(Left) 3 <+> Time In 3 <*> Procedure Ureteroscopy(Left) 4 <+> Time In 4 <*> Procedure Ureteroscopy(Left) 5 <+> Time In 5 <*> Procedure Ureteroscopy(Left) [facility] IntraOp Case Times Entry 1 Patient In Room Time 10/04/20 13:03:00 Out Room Time 10/04/20 13:54:00 Anesthesia Start Time 10/04/20 13:03:00 Stop Time 10/04/20 13:54:00 Surgery / Procedure Times Start Time 10/04/20 13:16:00 Stop Time 10/04/20 13:47:00 Last Modified By: Neha Duarte Rn 10/04/20 13:54:29 [facility] IntraOp Case Times Audit 10/04/20 13:54:29 Tool Design Checker: [id number] Modifier: [id number] <+> 1 Out Room Time <+> 1 Stop Time 10/04/20 13:48:00 Tool Design Checker: [id number] Modifier: [id number] <+> 1 Stop Time [facility] IntraOp Departure from OR Entry 1 Integumentary Assessment Integumentary WDL Assessment WDL Transfer/Handoff Transfer to PACU Phase I Handoff Method Bedside/Face to face, Phone call, Online nursing summary Post-op Transport Stretcher/rney Via Patient Transport Neha Duarte Rn, Accompanied by VERONICA AU MD-ANS Last Modified By: Neha Duarte Rn 10/04/20 13:38:09 [facility] IntraOp Fire Risk Assessment Entry 1 Fire [...] Modified By: Neha Duarte Rn 10/04/20 13:38:19 [facility] IntraOp General Case Bowling Alley Manager 1 Case Information OR Cysto 01 [facility] Case Level 1 Room Verified Yes Wound Class II - Clean-Contaminated Specialty Urology Anesthesia Type General ASA Class 3E Diagnosis Preop Diagnosis LEFT RENAL STONE Postop Same As Preop No Postop Diagnosis SEE MD POST OP NOTES Last Modified By: Neha Duarte Rn 10/04/20 13:41:52 [facility] IntraOp Implant Log Entry 1 Type Implant (Synthetic) Implant Log Implant Type Other Implant STENT URET BRAID + Identification [id number] Description Implant Quantity 1 Implant Site LEFT URETER Implant [place] Identification Sci:Urology/Gynecology Landscape Maintenance Internship Name: Implant [id number] Identification Catalog Number Implant Expiration 03/25/23 Date Tissue Implant Last Modified By: Neha Duarte Rn 10/04/20 13:44:42 [facility] IntraOp Intraoperative Assessment Entry 1 Handoff Method [...] Modified By: Neha Duarte Rn 10/04/20 13:42:00 [facility] IntraOp Patient Positioning Entry 1 Procedure Ureteroscopy(Left) [...] Modified By: Neha Duarte Rn 10/04/20 13:42:19 [facility] IntraOp Sign In Entry 1 Patient, Site, [...] Modified By: Neha Duarte Rn 10/04/20 13:42:22 [facility] IntraOp Sign Out Entry 1 RN Confirmation [...] Modified By: Neha Duarte Rn 10/04/20 13:42:31 [facility] IntraOp Skin Prep Entry 1 Procedure Ureteroscopy(Left) Prescribed N/A Pre-Surgical Prep Completed Prep Area genitalia Intraop Prep Integumentary WDL Assessment WDL Prep Agents Betadine solution Prep by Mendel Borrego RN Hair Removal Methods No hair removal performed Last Modified By: Neha Duarte Rn 10/04/20 13:42:55 [facility] Intra Surgical Procedures Entry 1 Procedure Ureteroscopy Modifiers Left Additional URETEROSCOPY WITH LASER Procedure LEFT Description Primary Procedure Yes Primary Surgeon ANNABEL ZAMBRANO MD-URO Start 10/04/20 13:16:00 Stop 10/04/20 13:47:00 Anesthesia Type General Specialty Urology Wound Class II - Clean-Contaminated Last Modified By: Neha Duarte Rn 10/04/20 13:48:02 [facility] Intra Surgical Procedures Audit 10/04/20 13:48:02 Tool Design Checker: [id number] Modifier: [id number] <+> 1 Stop [facility] IntraOP Time Out Entry 1 Procedure to [...] Unfinalizing Freetext Reason for Unfinalizing 10/10/20 09:50 [id number] Correct Billing Electronically signed by [facility] Conversion Merchandising Execution Associate Cerner at 08/23/2022 11:10 AM CDT documented in this encounter Plan of Treatment Not on file documented as of this encounter Visit Diagnoses Not on filedocumented in this encounter Care Teams Milling Machine Tender Relationship Specialty Start Date End Date Salima Gonzáles, [address] [facility] [address] [place] [address] PCP - General Family Medicine 02/09/23 documented as of this encounter
--- OUTSIDE RECORDS SUMMARY | 2024-11-25 21:47 | XMS_ITS | Encounter Summary ---
Author Organization [employer] ([place], [place], [place], [place]) Address [address] [place] [address] Care Team Providers Care Glass Etcher Name Role Phone Salima Gonzáles Primary Care Provider [phone] Encounter Details Date Type Department Care Team (Late st Contact Info) Description 10/04/2020 Transcribed Document [facility] [place] Family Medicine [address] [place] [address] ProviderQuincy MD [address] [place], [place] [id number] Social History Tobacco Use Types Packs/Day Years [...] Kate MD - 10/04/2020 1:16 PM CDT [facility] Main OR PACU Summary Primary Physician: ANNABEL ZAMBRANO MD-URO Finalized Date/Time: 10/04/20 15:07:54 Pt. Name: AMBIKA PIERRE/Sex: 1965 Female Med Rec #: [id number] Physician: SUREKHA ARGUELLES MD Financial #: [id number] Pt. Type: I Room/Bed: [facility]/1 Admit/Disch: 10/03/20 18:06:00 - Institution: [facility] Main OR PACU I Case Times Entry 1 In PACU I 10/04/20 13:58:00 Ready for PACU 10/04/20 14:40:00 Discharge Discharge from PACU 10/04/20 14:40:00 I Last Modified By: ESPERANZA LAWRENCE RN 10/04/20 15:07:45 Finalized By: ESPERANZA LAWRENCE, RN Document Signatures Signed By: ESPERANZA LAWRENCE RN 10/04/20 15:07 Electronically signed by [facility] Conversion Director Of Recruiting Cerner at 08/23/2022 11:13 AM CDT documented in this encounter Plan of Treatment Not on file documented as of this encounter Visit Diagnoses Not on filedocumented in this encounter Care Teams Glass Etcher Relationship Specialty Start Date End Date Salima Gonzáles, [address] [address] PCP - General Family Medicine 02/09/23 documented as of this encounter
--- OUTSIDE RECORDS SUMMARY | 2024-11-25 21:47 | XMS_ITS | Encounter Summary ---
Author Organization [employer] ([place], [place], [place], [place]) Address [address] [place] [address] Care Team Providers Care Maker Up Folding Name Role Phone Salima Mi DO Primary Care Provider [phone] Encounter Details Date Type Department Care Team (Late st Contact Info) Description 10/05/2020 Transcribed Document [facility] [facility] [address] [place] [address] ProviderQuincy MD [address] [place] [address] Social History Tobacco Use Types [...] Kate MD - 10/05/2020 4:12 PM CDT [facility] [place] [address] AMBIKA PIERRE :1965 Visit Time:10/03/2020 [...] with you. Where: [address] [place] [address]- Follow Up with ANNABEL ZAMBRANO MD-URO When Within 3 months Comments For kidney stone follow up. Call for follow up appointment. Bring discharge instructions with you. Bring Ins Card, Photo ID, Ins Co-pay. Where: [address] [facility] [address] [place] [address]- Medications What How Much When Instructions Next Dose pseudoePHEDrine (Sudafed 30 mg oral tablet) 1 Tablet(s) Oral Every 6 Hours as needed for Congestion Pickup at [facility] as needed montelukast (Singulair [...] sitagliptin (Januvia) 100mg daily tomorrow Pharmacy Information [facility]: [phone] [facility] [place] [phone] Take your medications faithfully. Do NOT skip [...] these instructions at home: Medicines ??? Take bhht-wsb-mznylil and prescription medicines only as told by [...] provider. Document Revised: 09/09/2019 Document Reviewed: 09/09/2019 [employer] Patient Education ?? 2020 [employer] Ureteroscopy Ureteroscopy is a procedure to [...] including vitamins, herbs, eye drops, creams, and pcqu-ocd-ucwvfrt medicines. ??? Any problems you or family [...] provider. Document Revised: 04/05/2018 Document Reviewed: 02/02/2017 [employer] Patient Education ?? 2020 [employer] Dietary Guidelines to Help Prevent Kidney [...] Rhubarb. ? Beets. ? Potato chips and turkmen fries. ? Nuts. ??? If you regularly take a diuretic medicine, make sure to eat at least 1???2 fruits or vegetables high in potassium each day. These include: ? Avocado. ? Banana. ? [place], prune, carrot, or tomato juice. ? Baked [...] Casseroles. Pizza. Lasagna. Frozen meals. Potato chips. Burundian fries. Summary ??? You can reduce your [...] provider. Document Revised: 08/13/2019 Document Reviewed: 04/03/2017 [employer] Patient Education ?? 2019 [employer]. pseudoephedrine (SALAZAR moralez ee FED rin) Chlor [...] from your inner ears, called the eustachian (mhx-AWPT-mpel) tubes. Pseudoephedrine may also be used for [...] may report side effects to FDA at 2-748-NGC-[phone]. What other drugs will affect pseudoephedrine? Other drugs may interact with pseudoephedrine, including prescription and shoo-axh-wsqbqdv medicines, vitamins, and herbal products. Tell each [...] to ensure that the information provided by [employer] ('[employer]') is accurate, up-to-date, and complete, but no guarantee is made to that effect. Drug information contained herein may be time sensitive. [employer] information has been compiled for use by healthcare practitioners and consumers in the [place] and therefore [employer] does not warrant that uses outside of the [place] are appropriate, unless specifically indicated otherwise. [employer]'s drug information does not endorse drugs, diagnose patients or recommend therapy. [employer] drug information is an informational resource designed [...] effective or appropriate for any given patient. [facility] does not assume any responsibility for any aspect of healthcare administered with the aid of information [facility] provides. The information contained herein is not intended to cover all possible uses, directions, precautions, warnings, drug interactions, allergic reactions, or adverse effects. If you have questions about the drugs you are taking, check with your doctor, nurse or pharmacist. Copyright 4950-4199 [employer] [facility]. Version: 7.03. Revision Date: 06/07/2015. Emergency Awareness [...] Assistance with quitting is available by contacting 8-764-ZIDK-NOW. This is a free resource providing counseling, [...] range between ( 0.0 and 7.0 ) Worth #: 0.47 K/uL -- Normal range between ( 0.16 and 1.00 ) Eos #: 0.09 x10(3)/uL -- Normal range between ( 0.00 and 0.80 ) Worth %: 8.5 % -- Normal range between [...] between ( 9.2 and 12.0 ) Patient Name:JAMES VASQUEZAMBIKA I have received and understand this information and was given the opportunity to ask questions. Patient/Vehicle Dismantler Name: Patient/Vehicle Dismantler Signature: Relationship to Patient: Clinician/Hospital Vehicle Dismantler Signature: Date: documented in this encounter Plan of Treatment Not on file documented as of this encounter Visit Diagnoses Not on filedocumented in this encounter Care Teams Maker Up Folding Relationship Specialty Start Date End Date Salima Mi DO [address] [place] [address] PCP - General Family Medicine 02/09/23 documented as of this encounter
--- OUTSIDE RECORDS SUMMARY | 2024-11-25 21:47 | XMS_ITS | Encounter Summary ---
Author Organization [employer] ([place], [place], [place], [place]) Address [address] [place] [address] Care Team Providers Care Repair Armature Winder Helper Name Role Phone Salima Gonzáles DO Primary Care Provider [phone] Encounter Details Date Type Department Care Team (Late st Contact Info) Description 10/06/2020 Transcribed Document [facility] [facility] [address] [place] [address] ProviderQuincy MD [address] [place], [place] [id number] Social History Tobacco Use Types Packs/Day Years Used Date Smoking Tobacco: Never Assessed Comments Unknown Sex and Gender Information Value Date Recorded Sex Assigned at Not on file Legal Sex Female 2:54 PM CDT Gender Identity Not on file Sexual Orientation Not on file documented as of this encounter Miscellaneous Notes * [employer]ner Conversion Note - Quincy Kate MD - 10/06/2020 11:44 AM CDT Care Management [...] Appointments Made #1 : Dr. Salima Gonzáles [facility] Follow-up Appointment Date #1 : 10/19/2020 11:00 EDT Contact Phone Number #1 : [phone] Follow-up Appointments Made #2 : [facility] Follow-up Appointment Date #2 : 01/06/2021 13:30 EDT Contact Phone Number #2 : [phone] Jacque Ledezma, BALANCE WHEEL MOTION INSPECTOR - 10/06/2020 11:44 EDT Electronically signed by [facility] Conversion Software Writer Cerner at 08/23/2022 10:59 AM CDT documented in this encounter Plan of Treatment Not on file documented as of this encounter Visit Diagnoses Not on filedocumented in this encounter Care Teams Repair Armature Winder Helper Relationship Specialty Start Date End Date Salima Gonzáles, [address] [address] PCP - General Family Medicine 02/09/23 documented as of this encounter
--- OUTSIDE RECORDS SUMMARY | 2024-11-25 21:47 | XMS_ITS | Clinical Summary ---
Author Organization Healthcare Address [address] [place] [address] Care Team Providers Care Field Marketing Representative Name Role Phone Salima Gonzáles DO Primary Care Provider [phone] Allergies Active Allergy Reactions Criticality Noted Date [...] 61 03/27/2023 1:45 PM EST Temperature 37.2 C (99 F) 11/02/2021 10:26 AM EDT Respiratory Rate 20 [...] Screening 1965 [facility]-Medicare Annual Wellness (AWV) 1965 [facility]-/Child/Adol SDOH Screenings 1965 [facility]-Obesity Intervention 1970 Diabetes: Dental Exam 1974 [facility]- SDOH Screenings 1982 [facility]-Adult SDOH Screenings 1982 [facility]-Hepatitis B Vaccines (1 of 3 - 19+ 3-dose series) 12/21/1983 [facility]-Pap Smear 1985 [facility]-Cervical Cancer Screening 1994 [facility]-HPV/Cotest 1994 CT Colonography 2009 Colonoscopy 2009 FIT-DNA 2009 FIT 2009 FOBT 2009 Sigmoidoscopy 2009 [facility]-Colorectal Cancer Screening 2009 [facility]-Breast Cancer Screening 2014 [facility]-Zoster Vaccines (1 of 2) 2014 [facility]-Diabetes: Hemoglobin A1C 10/29/2021 05/01/2021 [id number] Vaccine ( - season) 2024 02/23/2022, 01/26/2021, 06/09/2020, Additional history exists [facility]-Influenza Vaccine (#1) 01/05/202502/22, 01/27/2022, 01/28/2021, Additional history exists [facility]-DTaP,Tdap,and Td Vaccines (2 - Td or Tdap) 01/25/2028 01/24/2018 [facility]-Hepatitis A Vaccines Aged Out 05/11/2018, 08/06 No longer eligible based on patient's age to complete this topic [facility]-Pneumococcal Vaccine: 50+ Years Completed 01/27/2022, 05/11/2018 HPV Vaccines Aged Out No longer eligi ble based on patient's age to complete this topic [facility]-HIB Vaccines Aged Out No longer e ligible based on patient's age to complete this topic [facility]-IPV Vaccines Aged Out No longer e ligible based on patient's age to complete this topic [facility]-Rotavirus Vaccines Aged Out No lo nger eligible based on patient's age to complete this topic Medical Devices Implanted Type Area Mobile Electronics Installer Device Identifier Shelf Expiration Date Model / Serial / Lot Nail Femoral Retro T2 Alpha 11mm X 340mm - [id number] Implanted:Qty: 1 on 05/01/2021 by Crow Lockwood MD at [facility] Nail Left: Femur [employer] ([facility])-[id number] 10/04/2030 [id number] / / [id number] Screw Locking T2 D5xl80 - [id number] Implanted:Qty: 1 on 05/01/2021 by Bebeto Flynn MD at [facility] Screw Left: Fem[employer] ([facility][id number] 09/03/2030 [id number] / / [id number] Screw Locking T2 D5xl60 - [id number] Implanted:Qty: 1 on 05/01/2021 by Bebeto Flynn MD at [facility] Screw Left: [employer] ([facility])-[id number] 02/03/2031 [id number] / / [id number] Screw Locking T2 D5xl50 - [id number] Implanted:Qty: 1 on 05/01/2021 by Bebeto Flynn MD at [facility] Screw Left: Femur [employer] ([facility])-[id number] 02/03/2031 [id number] / / [id number] Screw Locking T2 D5xl75 - [id number] Implanted:Qty: 1 on 05/01/2021 by Bebeto Flynn MD at [facility] Screw Left: [employer] ([facility])-[id number] 01/04/2031 [id number] / / [id number] Screw Locking T2 D5xl55 - [id number] Implanted:Qty: 1 on 05/01/2021 by Bebeto Flynn MD at [facility] Screw Left: Fem[employer] ([facility][id number] 8 12/04/2030 [id number] / / [id number] Screw Locking T2 D5x32.5 - [id number] Implanted:Qty: 1 on 05/01/2021 by Bebeto Flynn MD at [facility] Screw Left: Fem[employer] ([facility][id number] 01/04/2031 [id number] / / [id number] Screw Locking T2 D5x37.5 - [id number] Implanted:Qty: 1 on 05/01/2021 by Bebeto Flynn MD at [facility] Screw Left: Femur [employer] ([facility])-[id number] 01/04/2031 2360-5037S / / [id number] Procedures Procedure Name Priority Date/Time Associated Diagnosis Comments HEMOGLOBIN A1C STAT Add-on 05/01/2021 2:21 AM EST from Last 3 Months or Most Recently Relevant to Health Maintenance Results * Hemoglobin A1c (05/01/2021 2:21 AM EST) Hemoglobin A1c 5.5 <5.7 % 05/01/2021 12:36 PM EST [facility] Blood Venous blood specimen / Unknown Venipuncture / Unknown 05/01/2021 2:21 AM EST 05/01/2021 2:26 AM EST Narrative [facility] - 05/01/2021 12:36 PM EST HA1C Interpretive Data: Diagnosis of Diabetes: Diabetic > or = 6.5% Pre-diabetic 5.7 to 6.4% Non-diabetic < or = 5.6% Glycemic Targets for Type I and Type II Diabetics: Non- Adults <7.0% Adults <6.0% Children and Adolescents <7.5% Source: [place] [employer]. Standards of medical care in diabetes,2017. Diabetes Care.2017:40 (suppl 1):S1-S135. HbA1c assay performed by an ion-exchange chromatography method that is certified traceable to the DCCT. us Drew Matos MD LAB BLOOD ORDERABLES Final Re sult [facility] [address] [place] [address] from Last 3 Months or Most Recently Relevant to Health Maintenance Insurance [employer] MEDICARE Advance Directives * Full Code (Latest Code Status on File) Date Activated Date Inactivated Comments 04/30/2021 4:10 PM 05/07/2021 11:19 AM Question Answer Comments Patient has decision-making capacity? Yes Care Teams Field Marketing Representative Relationship Specialty Start Date End Date Salima Gonzáles DO [address] [place] [address] [place] [address] PCP - General 09/17/20
--- OUTSIDE RECORDS SUMMARY | 2024-11-25 21:47 | XMS_ITS | Data Portability ---
Author Organization [place] [facility] [place] [facility] [place] [facility] [place] [facility] ADMIN Address [address] [place] [id number] Care Team Providers Care Pole Cutter Name Role Phone SALIMA MI Referring Provider SALIMA MI Primary Care Provider [phone] Assessment Encounter Date Assessment Date Assessment LastModified by Organization Details LastModified Time 07/26/2022 07/26/2022 CT scan results discussed with patient. Lesion in question is a simple cyst will be followed with a repeat renal ultrasound in 1 year. Will schedule office cystoscopy and pelvic exam to address other issues. Not available 07/30/2022 21:31:13 02/19/2023 02/19/2023 will forego cystoscopy today. Will schedule abdominal pelvic CT scan without and with IV and oral contrast. Will refer patient expediently to Gastroenterology, [facility]. [email or web address] Not available 02/19/2023 15:09:25 03/27/2023 03/27/2023 57-year-old [...] CT. Will obtain prior endoscopy records from [facility]. Will repeat colonoscopy due to worsening symptoms. 3) dysphagia: EGD scheduled. Continue protonix. She has a history of gastric bypass. [email or web address] Not available 03/27/2023 09:18:45 Plan of Treatment Reminders Order Date Submit Date Provider Last Modified By Organization Details Last Modified Time Details Appointments OV EST 15 2024 02:00P M Aidee Rosas NP Not available Not available Not available OV NEW 30 2024 01:30P M Jennifer Hernandez M.D Not available Not available Not available Lab renal function panel, serum 2022 023 [email or web address] [facility] (Registration ), [address] [facility], [place], [address], 02/19/2023 16:55:57 urinalysi s, dipstick 2022 023 [email or web address] [facility], [address] [facility], [address], [place], [address], 07/26/2022 14:26:50 Referral None recorded. Procedures upper endoscopy procedure (EGD) (PROC) 2024 025 [facility] (Central Scheduling), [address] [place] [address] [place], [id number], 10/03/2024 09:31:26 colonosco py procedure (PROC) 2024 025 [facility] (Central Scheduling), [address] [place] [address] [place], [id number], 09/12/2024 11:23:56 upper endoscopy procedure (EGD) (PROC) 2024 025 [facility] (Central Scheduling), [address] [place] [address] [place], [id number], 10/03/2024 09:31:27 Surgeries None recorded. Imaging CT, abdomen + pelvis, w/wo contrast - Ct Scan abdomen and pelvis without and with IV and oral contrast 2022 023 [email or web address] [facility] (Centralized Scheduling), [address], [place], [address], 03/12/2023 07:00:37 Medication Orders Miralax 17 gram/dose oral powder 2024 025 [facility] [place], [address], 09/05/2024 11:18:16 Dulcolax (bisacody l) 5 mg tablet,de layed release 2024 025 [facility], [address] [place], [address], 09/05/2024 11:18:17 Patient TargetsNo targets recorded. Patient Instructions Encounter Date Encounter Id Patient Instructions Last Modified By Organization Details Last Modified Time 03/27/2023 [id number] Name: AMBIKA ROJAS Exam Date: 03/07/2023 : 1965 Age 57 Gender: F Physician: GIRISH RICKS Facility: [facility] Facility HSV: Outpatient Exam: CT ABD [...] 56 Gender: F Physician: JANICE SHARMA Facility: [facility] Facility HSV: Outpatient Exam: CT ABD [...] Abnormal Flag Note LastModifiedBy Organization Detail LastModifiedTime 07/27/1907/26/2022 urina lysis , dipst ick Leukocytes (reference range) negati ve Not Available [facility] [address] [place] [address] Suite [facility], [place], [address], 07/26/2022 14:21:32 07/27/19 23 07/26/2022 urina lysis , dipst ick Nitrite (reference range:) negati ve Not Available [address] [facility], [place], [address], 07/26/2022 14:21:32 07/27/19 23 07/26/2022 urina lysis , dipst ick Urobilinogen (reference range) 0.2 Not Available [facility] [address] [place] [address] Suite [facility], [place], [address], 07/26/2022 14:21:32 07/27/19 23 07/26/2022 urina lysis , dipst ick Protein (reference range) negati ve Not Available [facility] [address] [place] [address] Suite [facility], [place], [address], 07/26/2022 14:21:32 07/27/19 23 07/26/2022 urina lysis , dipst ick pH (reference range 5-8.5) 5.0 Not Available [facility] [address] [place] [address] [address], [place], [address], 07/26/2022 14:21:32 07/27/19 23 07/26/2022 urina lysis , dipst ick Blood (reference range:) negati ve Not Available [facility] [address] [place] [address] [address], [place], [address], 07/26/2022 14:21:32 07/27/19 23 07/26/2022 urina lysis , dipst ick Specific [place] (reference range) 1.015 Not Available [facility] [address] [place] [address] [address], [place], [address], 07/26/2022 14:21:32 07/27/19 23 07/26/2022 urina lysis , dipst ick Ketone (reference range) negati ve Not Available [facility] [address] [place] [address] [address], [place], [address], 07/26/2022 14:21:32 07/27/19 23 07/26/2022 urina lysis , dipst ick Bilirubin (reference range) negati ve Not Available [facility] [address] [place] [address] [address], [place], [address], 07/26/2022 14:21:32 07/27/19 23 07/26/2022 urina lysis , dipst ick Glucose (reference range) negati ve Not Available [address], [place], [address], 07/26/2022 14:21:32 07/27/19 23 07/26/2022 urina lysis , dipst ick Color (reference range: yellow-brown ) Yellow Not Available [facility] [address] [place] [address] [address], [place], [address], 07/26/2022 14:21:32 02/20/20 23 02/19/2023 RENAL FUNCT ION PANEL sodium 143 mmol/ L 136-14 5 Not Available [facility] ([facility]) [address] [facility], [place], [address], 02/19/2023 16:15:57 02/20/20 23 02/19/2023 RENAL FUNCT ION PANEL potassium 4.1 mmol/ L 3.6-5. 0 Not Available [facility] ([facility]) [address] , [place], [address], 02/19/2023 16:15:57 02/20/20 23 02/19/2023 RENAL FUNCT ION PANEL chloride 106 mmol/ L 98-107 Not Available [facility] ([facility]) [address] , [place], [address], 02/19/2023 16:15:57 02/20/2002/19/2023 RENAL FUNCT ION PANEL carbon dioxide 27.3 mmol/ L 21.0-3 2.0 Not Available [facility] ([facility]) [address] , [place], [address], 02/19/2023 16:15:57 02/20/2002/19/2023 RENAL FUNCT ION PANEL anion gap 13.8 Not Available [facility] ([facility]) [address] , [place], [address], 02/19/2023 16:15:57 02/20/20 23 02/19/2023 RENAL FUNCT ION PANEL glucose 87 mg/dL 70-120 Not Available [facility] ([facility]) [address] , [place], [address], 02/19/2023 16:15:57 02/20/20 23 02/19/2023 RENAL FUNCT ION PANEL BUN 19 mg/dL 7-18 high Not Available [facility] ([facility]) [address] , [place], [address], 02/19/2023 16:15:57 02/20/20 23 02/19/2023 RENAL FUNCT ION PANEL creatinine 0.8 mg/dL 0.6-1. 3 Not Available [facility] ([facility]) [address] , [place], [address], 02/19/2023 16:15:57 02/20/20 23 02/19/2023 RENAL FUNCT ION PANEL albumin 3.7 g/dL 3.4-5. 0 Not Available [facility] ([facility]) [address], [place], [address], 02/19/2023 16:15:57 02/20/20 23 02/19/2023 RENAL FUNCT ION PANEL calcium 8.9 mg/dL 8.5-10 .5 Not Available [facility] ([facility]) [address], [place], [address], 02/19/2023 16:15:57 02/20/20 23 02/19/2023 RENAL FUNCT ION PANEL phosphorus 3.7 mg/dL 2.5-4. 9 Not Available [facility] ([facility]) [address], [place], [address], 02/19/2023 16:15:57 07/19/19 23 07/18/2022 [facility] [address] [place] [address] Phone: Fax: Name: SHARON PIERRE Exam Date: 023 : [birth year] Age 56 Gender : F Access ion: [id number] Physic jose: DEUCE FRITZ [facility] Facili ty HSV: Outpat ient Exam: [...] by: MEGAN BILL Thank you for referr SHARON Trevizo to [facility] Hospit al. Legall y authen ticate d by POPE MEGAN Quinteros 07-18 17:28: 10 CC'ed Logic: Orderi ng Provid er: CATRINA Ybarra Attend ing Provid er: CATRINA Ybarra Admitt ing Provid er: CATRINA Ybarra [email or web address] [facility] [address] [facility], [place], [address], 07/19/2022 08:25:46 03/07/20 23 03/07/2023 CT ABD pel w/w/O [facility] [address] [place] [address] Phone: Fax: Name: SHARON PIERRE Exam Date: 023 : [birth year] Age 57 Gender : F Access ion: [id number] Physic jose: GIRISH FUNK ty: [place] Fac[place] ty HSV: Outpat ient Exam: CT [...] interp reted and dictat ed by Dr.Pop sharif Transc ribed by Kojo Easley PA-C. Dictat ed By: MEGAN BILL Transc ribed By: Megan Bill Transc ribed On: 023 4:17 PM Electr onical ly signed by: MEGAN BILL 023 Thank you for referr SHARON Trevizo to [facility] H[facility]. Legall y authen ticate d by POPE MEGAN Quinteros 2022-05 16:17: 12 CC'ed Logic: Orderi ng Provid er: LILLY MARTINEZ Attend ing Provid er: LILLY MARTINEZ Referr ing Provid er: LILLY MARTINEZ Admitt ing Provid er: LILLY MARTINEZ [email or web address] [facility] [address], [place], [address], 03/12/2023 13:14:30 07/16/19 25 07/15/2024 audio gram No observ ation record ed. BARCODE Not Available 2024 10:42:00 Result Notes None recorded. Problems Name Problem SNOMED Code Status Onset Date Resolution Date Notes Provider Name and Address Organization Details Recorded Time Abdominal pain 94180217 Active 2022 Kwabena Rubio PA-C [address], [place], [address] , [place] [facility] [place] [facility] [place] 3 08:12:40 Diarrhea 02567580 Active 2022 Kwabena Rubio PA-C [address], [place], [address] , [place] [facility] [place] [facility] [place] 3 08:12:43 Colitis 26377045 Active 2022 Kwabena Rubio PA-C [address], [place], [address] , [place] [facility] [place] [facility] [place] 3 09:11:27 Dysphagia 20061445 Active 2022 Kwabena Rubio PA-C [address], [place], [address] , [place] [facility] [place] [facility] [place] 3 09:11:34 Bilateral subjective tinnitus of ears 9100122284087 104 Active 2024 MAHNAZ STATON [address], [place], [address] , [place] [facility] [place] [facility] [place] 5 10:23:11 Generalize d abdominal pain 232039362 Active 2024 Aidee Rosas NP [address] [place] [address], [address], [place], [address] , [place] [facility] [place] [facility] [place] 13:05:46 Nausea 528946318 Active 2024 Aidee Rosas NP [address], [address], [place], [address] , [place] [facility] & [place] 13:05:50 Constipati on 63802454 Active 2024 Aidee Rosas NP [address], [address], [place], [address] , [place] [facility] [place] 13:06:58 Gastro-eso phageal reflux disease with esophagiti s 931503476 Active 2024 Aidee Rosas NP [address], [address], [place], [address] , [place] [facility] & [place] 11:16:58 Problem Notes None recorded. Procedures Surgical History Date Name Laterality Status Provider Name and Address Organization Details Recorded Time 10/16/19 25 EGD completed Dee BERR[place] - [facility] [place] 11/06/2024 09:12:10 10/16/19 25 Colonoscopy completed Dee BERRY - [facility] [place] 11/06/2024 09:12:20 03/07/20 24 completed Neha [place] - [facility] [place] 08/27/2024 10:19:46 03/07/20 24 Date of Last Pap Smear completed Neha [place] - [facility] [place] 08/27/2024 10:19:46 10/06/19 20 Date of Last Colonoscopy completed Neha [place] - [facility] [place] 08/27/2024 10:19:46 Cholecystectomy completed Crow Robert [facility] [place] 01/25/2022 13:24:43 section completed Crow Robert [facility] - [facility] [place] 01/25/2022 13:25:11 lithotripsy completed Crow BERRY - [facility] [place] [facility] [place] 01/25/2022 13:25:25 removal of sebaceous cyst completed Crow BERRY - [facility] [place] 01/25/2022 13:26:00 Total Hysterectomy completed Crow DODGE [facility] & [place] 01/25/2022 13:28:53 Tonsillectomy completed Crow DODGE [facility] [place] 01/25/2022 13:29:05 Knee arthroscopy/surgery completed Crow DODGE [facility] [place] 01/25/2022 13:29:18 Gastric bypass for obesity completed Crow DODGE [facility] [place] 01/25/2022 13:29:27 excision of intra-abdominal mass completed Crow DODGE [facility] [place] 01/25/2022 13:30:03 Imaging Results None recorded. Procedure Notes None recorded. Medical Equipment None Reported. Allergies Allergen ID Allergen Name Allergen Category Reaction Reaction Severity Criticality Documentation Date Start Date Code Code System Note Provider Name and Address Organization Details Recorded Time 240857 Levaquin medicatio n confusion severe Not available 08/27/2024 33388 2 RxNorm JAMAL Cornejo [facility] [place] 5 10:19:43 51832 Medicinal product containin g cephalosp melissa and acting as antibacte rial agent (product) medicatio n Not available Not available Not available 01/25/2022 64409 9009 SNOMED JAMAL Bazzi [facility] [place] 2 13:14:15 70837 Product containin g angiotens in-conver ting enzyme inhibitor (product) medicatio n Not available Not available Not available 01/25/2022 53458 009 SNOMED JAMAL Bazzi [facility] [place] 2 13:14:06 59460 ciproflox acin medicatio n Not available Not available Not available 01/25/2022 2551 RxNorm JAMAL Bazzi NOEMI [facility] [place] 2 13:14:14 24564 honey bee venom medicatio n Not available Not available Not available 01/25/2022 91638 7 RxNorm JAMAL Bazzi NOEMI [facility] [place] 2 13:14:10 49968 fluoxetin e medicatio n Not available Not available Not available 01/25/2022 4493 RxNorm Crow dickson, JAMAL DODGE [facility] [place] 2 12:46:20 91886 amlodipin e medicatio n Not available Not available Not available 01/25/2022 56463 RxNorm JAMAL Bazzi [facility] [place] 2 13:14:08 70421 morphine medicatio n Not available Not available Not available 01/25/2022 7052 RxNorm Crow dickson, JAMAL DODGE [facility] [place] 2 13:18:50 73868 Ceftin medicatio n Not available Not available Not available 01/31/2022 82861 6 RxNorm JAMAL Bazzi [facility] [place] 2 13:15:16 Medications Name Sig Start Date Stop Date Status Note LastModified by Organization Details LastModified Time Miralax 17 gram oral powder packet Take 5 packets 3 times a day by oral route as directed for 1 day. 2023 active Not Available Not Available Not Avai lable fluoxetine 40 mg capsule TAKE 1 CAPSULE BY MOUTH TWICE DAILY active Not Available Not Available No t Available cyclobenzapr ine 10 mg tablet TAKE ONE TABLET BY MOUTH EVERY 8 HOURS MAY CAUSE DROWSINESS active Not Available Not Available N ot Available amoxicillin 500 mg capsule TAKE ONE CAPSULE BY MOUTH EVERY 8 HOURS FOR 10 DAYS -- FINISH ALL MEDICINE -- active Not Available Not Available Not Available Miralax 17 gram/dose oral powder Take 17 g by oral route for 2 days. 2024 active Not Available Not Available Not Avai lable fluconazole 100 mg tablet TAKE ONE TABLET [...] 150 mg tablet,12 hr sustained-re lease TAKE 1 TABLET BY MOUTH TWICE DAILY [...] Not Available Not Available No t Available ammonium lactate 12 % lotion APPLY LOTION TO AFFECTED AREA ONCE DAILY active Not Available Not Available No t Available azithromycin 250 mg tablet TAKE 2 TABLETS BY MOUTH ON DAY 1, THEN TAKE 1 TABLET DAILY ON DAYS 2-5 active Not Available Not Available No t Available ibuprofen 800 mg tablet TAKE ONE TABLET BY MOUTH EVERY 8 HOURS --TAKE WITH FOOD-- active Not Available Not Available No t Available ofloxacin 0.3 % eye drops instill 2 drops into affected eye(s) every 2 hours FOR 2 DAYS, THEN instill 1 drop FOUR TIMES DAILY ON DAYS 3-7. active Not Available Not Available No t Available nystatin 100,000 unit/gram topical ointment APPLY TOPICALLY TO THE AFFECTED AREA(S) TWICE DAILY FOR FOURTEEN DAYS active Not Available Not Available No t Available tizanidine 4 mg tablet TAKE 1 TABLET BY MOUTH EVERY 8 HOURS active Not Available Not Available No t Available fluconazole 150 mg tablet TAKE ONE TABLET BY MOUTH EVERY DAY active Not Available Not Available No t Available sulfamethoxa zole 400 mg-trimethop rim 80 mg tablet TAKE TWO TABLETS BY MOUTH TWICE DAILY FOR 7 DAYS -- FINISH ALL MEDICINE -- active Not Available Not Available Not Available hydrocodone 5 mg-acetamino phen 325 mg tablet TAKE 1 TABLET BY MOUTH EVERY 4 HOURS NEEDED FOR PAIN CAUTION SEDATION active Not Available Not Available No t Available fluconazole 200 mg tablet TAKE ONE TABLET BY MOUTH A ONE-TIME DOSE active Not Available Not Available No t Available sucralfate 1 gram tablet active Not Available Not Available Not Available promethazine 12.5 mg tablet TAKE 1 TO 2 TABLETS BY MOUTH EVERY 8 HOURS active Not Available Not Available No t Available prednisone 20 mg tablet TAKE 3 TABS BY MOUTH DAILY X 7 DAYS, THEN 2 DAILY X7 DAYS, THEN 1 DAILY X 7 DAYS THEN 1/2 TAB DAILY X 7 DAYS active Not Available Not Available No t Available hydralazine 25 mg tablet Take 1 tablet by oral route as needed. active Not Available Not Available N ot Available metronidazol e 500 mg tablet TAKE ONE TABLET BY MOUTH THREE TIMES DAILY -- FINISH ALL MEDICINE -- --AVOID ANY PRODUCT(S) CONTAINING ALCOHOL WHILE TAKING THIS MEDICATION- - active Not Available Not Available No t Available phentermine 37.5 mg tablet START WITH 1/2 TABLET BY MOUTH ONCE DAILY FOR A FEW DAYS THEN GO UP TO 1 TABLET BY MOUTH DAILY active Not Available Not Available Not Available acetaminophe n 300 mg-codeine 30 mg tablet TAKE ONE TABLET BY MOUTH EVERY 6 HOURS NEEDED FOR SEVERE pain MAY CAUSE DROWSINESS active Not Available Not Available N ot Available ciprofloxaci n 500 mg tablet TAKE ONE TABLET BY MOUTH TWICE DAILY -- FINISH ALL MEDICINE -- active Not Available Not Available Not Available sulfamethoxa zole 800 mg-trimethop rim 160 mg tablet TAKE ONE TABLET BY MOUTH TWICE DAILY -- FINISH ALL MEDICINE -- active Not Available Not Available Not Available hydrocodone 10 mg-acetamino phen 325 mg tablet TAKE 1 TABLET BY MOUTH EVERY 4 TO 6 HOURS active Not Available Not Available No t Available tramadol 50 mg tablet TAKE ONE TABLET BY MOUTH EVERY 8 HOURS MAY CAUSE DROWSINESS active Not Available Not Available N ot Available ketorolac 10 mg tablet TAKE 1 TABLET BY MOUTH EVERY 8 HOURS NEEDED FOR PAIN FOR 5 DAYS active Not Available Not Available No [...] Not Available Not Available No t Available phenazopyrid ine 100 mg tablet TAKE ONE TABLET BY MOUTH TWICE DAILY FOR 2 DAYS MAY CAUSE DISCOLORATI ON OF URINE active Not Available Not Available Not Available baclofen 10 mg tablet TAKE 1 TABLET BY MOUTH TWICE DAILY active Not Available Not Available No t Available benzonatate 100 mg capsule TAKE ONE CAPSULE BY MOUTH THREE TIMES DAILY NEEDED FOR cough -SWALLOW WHOLE. DO NOT CRUSH OR CHEW- active Not Available Not Available No t Available simvastatin 5 mg tablet TAKE 1 TABLET BY MOUTH ONCE DAILY active Not Available Not Available No t Available hydrocodone 7.5 mg-acetamino phen 325 mg tablet TAKE 1 TABLET BY MOUTH EVERY 6 HOURS NEEDED FOR PAIN . DO NOT EXCEED 4 PER 24 HOURS active Not Available Not Available No t Available pantoprazole 40 mg tablet,delay ed release active Not Available Not Available N ot Available hyoscyamine sulfate 0.125 mg tablet TAKE ONE TABLET BY MOUTH FOUR TIMES DAILY NEEDED FOR abdominal pain active Not Available Not Available No t Available oseltamivir 75 mg capsule TAKE ONE CAPSULE BY MOUTH TWICE DAILY -- FINISH ALL MEDICINE -- active Not Available Not Available Not Available levothyroxin e 125 mcg tablet TAKE 1 TABLET BY MOUTH ONCE DAILY active Not Available Not Available No t Available Advair Diskus 250 mcg-50 mcg/dose powder for inhalation Inhale 1 puff twice a day by inhalation route. active Not Available Not Available No t Available nystatin-tri amcinolone 100,000 unit/g-0.1 % topical cream APPLY TOPICALLY TO THE AFFECTED AREA(S) TWICE DAILY active Not Available Not Available Not Available gabapentin 300 mg capsule active Not Available Not Available Not Available diclofenac sodium 75 mg tablet,delay ed release TAKE ONE TABLET BY MOUTH EVERY TWELVE HOURS --TAKE WITH FOOD-- active Not Available Not Available No t Available montelukast 10 mg tablet TAKE 1 TABLET BY MOUTH IN THE EVENING active Not Available Not Available Not Available hydrochlorot hiazide 25 mg tablet TAKE ONE TABLET BY MOUTH EVERY DAY active Not Available Not Available No t Available mupirocin 2 % topical ointment APPLY 1 GRAM ON SKIN TWICE DAILY active Not Available Not Available No t Available furosemide 20 mg tablet TAKE 1 TABLET BY MOUTH ONCE DAILY active Not Available Not Available No t Available epinephrine 0.3 mg/0.3 mL injection, auto-injecto r USE DIRECTED NEEDED FOR BEE/WASP STING active Not Available Not Available No t Available fluticasone 100 mcg-salmeter ol 50 mcg/dose blistr powdr for inhalation INHALE 1 PUFF BY MOUTH TWICE DAILY active Not Available Not Available No t Available levofloxacin 500 mg tablet TAKE ONE TABLET BY MOUTH EVERY DAY -- FINISH ALL MEDICINE -- active Not Available Not Available Not Available levofloxacin 750 mg tablet TAKE 1 TABLET BY MOUTH ONCE DAILY FOR 7 DAYS active Not Available Not Available No t Available scopolamine 1 mg over 3 days transdermal patch active Not Available Not Available Not Available methylpredni solone 4 mg tablets in a dose pack TAKE ACCORDING TO PACKAGE INSTRUCTION S --TAKE WITH FOOD-- -- FINISH ALL MEDICINE -- active Not Available Not Available Not Available albuterol sulfate HFA 90 mcg/actuatio n aerosol inhaler INHALE 1 TO 2 PUFFS BY MOUTH EVERY 4 TO 6 HOURS active Not Available Not Available No t Available hydroxyzine HCl 10 mg tablet TAKE 1 TABLET BY MOUTH EVERY 8 HOURS active Not Available Not Available No t Available ondansetron 4 mg disintegrati ng tablet DISSOLVE 1 TABLET IN MOUTH ONCE DAILY NEEDED FOR NAUSEA AND VOMITING FOR 5 DAYS active Not Available Not Available N ot Available losartan 100 mg tablet TAKE ONE TABLET BY MOUTH EVERY DAY active Not Available Not Available No t Available fluticasone propionate 50 mcg/actuatio n nasal spray,suspen alex instill 1-2 SPRAYS IN EACH NOSTRIL EVERY DAY active Not Available Not Available No t Available ketoconazole 1 % shampoo As needed active Not Available Not Availabl e Not Available dicyclomine 10 mg capsule TAKE ONE CAPSULE BY MOUTH EVERY 6 HOURS active Not Available Not Available No t Available loratadine 10 mg tablet TAKE 1 TABLET BY MOUTH ONCE DAILY active Not Available Not Available No t Available amoxicillin 875 mg-potassium clavulanate 125 mg tablet active Not Available Not Available Not Available Dulcolax (bisacodyl) 5 mg tablet,delay ed release Take 2 tablets by oral route for 1 day. 2024 active Not Available Not Available Not Avai lable oxycodone 5 mg tablet active Not Available [...] active Not Available Not Available Not Available bupropion HCl XL 300 mg 24 hr tablet, extended release TAKE 1 TABLET BY MOUTH ONCE DAILY active Not Available Not Available No t Available nitrofuranto in monohydrate/ macrocrystal s 100 mg capsule TAKE 1 CAPSULE BY MOUTH TWICE DAILY active Not Available Not Available No t Available eszopiclone 2 mg tablet TAKE 1 TABLET BY MOUTH AT NIGHT, TAKE IMMEDIATELY BEFORE BEDTIME. MAX DAILY DOSE OF 2MG active Not Available Not Available Not Available pregabalin 150 mg capsule TAKE 1 CAPSULE BY MOUTH TWICE DAILY active Not Available Not Available No t Available Advair HFA 115 mcg-21 mcg/actuatio n aerosol inhaler INHALE 2 PUFFS BY MOUTH TWICE DAILY active Not Available Not Available No t Available Januvia 50 mg tablet TAKE 1 TABLET BY MOUTH ONCE DAILY active Not Available Not Available No t Available Januvia 100 mg tablet TAKE ONE TABLET BY MOUTH EVERY DAY active Not Available Not Available No t Available Enbrel SureClick 50 mg/mL (1 mL) subcutaneous pen injector active Not Available Not Available Not Available budesonide-f ormoterol HFA 80 mcg-4.5 mcg/actuatio n aerosol inhaler INHALE TWO PUFFS BY MOUTH TWICE DAILY active Not Available Not Available No t Available peg 3350-electro lytes 236 gram-22.74 gram-6.74 [...] Not Available Not Available No t Available Linzess 72 mcg capsule TAKE 1 CAPSULE BY MOUTH ONCE DAILY active Not Available Not Available No t Available diclofenac 1 % and meth salicylate 30 %-menthol 10 % topical gel,cream As needed active Not Available Not Available Not Available Emgality Pen 120 mg/mL subcutaneous pen injector INJECT CONTENTS OF 1 PEN SUBCUTANEOU SLY ONCE EVERY MONTH active Not Available Not Available Not Available Skyrizi 150 mg/1.66 mL(75 mg/0.83 mL x 2) subcutaneous syringe kit Inject by subcutaneou s route as directed. active Not Available Not Available No t Available Nurtec ODT 75 mg disintegrati ng tablet DISSOLVE 1 TABLET IN MOUTH DIRECTED NEEDED FOR MIGRAINE active Not Available Not Available No t Available FreeStyle Niels 2 Sensor kit USE DIRECTED FOR CONTINUOUS GLUCOSE MONITORING active Not Available Not Available N ot Available FreeStyle Niels 2 [place] USE DIRECTED active Not Available Not Available No t Available Skyrizi 150 mg/mL subcutaneous pen injector active Not Available Not Available Not Available Paxlovid 150 mg-100 mg tablets in a dose pack (Moderate Renal Dose) FOLLOW DIRECTIONS ON PACKAGE active Not Available Not Available N ot Available Vitals Date Recorded Body height Body mass index (BMI) Body weight Body temperature Oxygen saturation Oxygen saturation in Arterial blood by Pulse oximetry Heart rate Provider Name and Address Organization Details Last Updated DateTime 5 154.94 cm 44.6 kg/m2 096308. 08 g 97.3 [degF] 98 % 98 % 70 /min Neha Mary Beth [facility] [place] 5 10:19:40 Date Recorded Body height Body mass index (BMI) Body weight Body temperature Heart rate Heart rate Oxygen saturation Oxygen saturation in Arterial blood by Pulse oximetry Systolic And Diastolic Provider Name and Address Organization Details Last Updated DateTime 3 154.94 cm 49.3 kg/m2 194497. 89 g 97.5 [degF] 91 /min 89 /min 98 % 98 % 151/105 mm[Hg] Janina Avery [facility] [place] 3 08:35:06 Social History Question Answer Notes LastModified by [employer] Details LastModified Time Tobacco Smoking Status Former Smoker Neha [facility], [facility] [place] 08/27/2024 10:19:53 Do You Have An Advance Directive? No Information not available 08/27/2024 Are You Blind Or Do You Have Difficulty Seeing? No Information not available 08/27/2024 How Much Tobacco Do You Smoke? 0.5 PPD [email or web address] Information not available 01/25/2022 Sex: Unknown Functional Status Question Answer Note LastModified by [employer] Details LastModified Time Do you use any illicit or recreational drugs? No [email or web address] Information not available 01/25/2022 What is your level of alcohol consumption? 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 Moderate Information not available 08/27/2024 Mental Status None recorded. Family History Relationship Description Onset Age of this Age Resolved Age Notes LastModified by Organization Details LastModified Time Mother Diabetes mellitus [email or web address] Not available 2024 09:58:21 Mother Hypertensive disorder [email or web address] Not available 2021 13:23:16 Father Diabetes mellitus [email or web address] Not available 2024 09:58:21 Father Hypertensive disorder [email or web address] Not available 2021 13:23:34 Medical History Condition Response Coronary Artery Disease N Gout N Other N Kidney Stones N Hyperthyroidism N Depression Y COPD Y Hypothyroidism Y Deep Vein Thrombosis N Obstructive Sleep Apnea Y Anxiety Disorder Y Autoimmune disease Y Obesity Y Arthritis Y Cancer N Stroke N High Cholesterol N Liver Disease N Headaches Y Kidney Disease N Ear or Hearing Problems Y Kidney or Bladder Problems Y Thyroid Problems Y Anemia Y Diabetes Y Bleeding Disorder N Seizures/Epilepsy N Tuberculosis N Back Problems Y Diverticulitis N Asthma Y Reflux/GERD N Hepatitis N Heart Disease N Bronchitis N Pulmonary Embolism N Hypertension Y Gynecological History Statement/Question Response Date of Last Pap Smear 03/07/2024 Current Control Method Hysterectom y Date of Last Colonoscopy 10/06/2019 03/07/2024 Sexually Active? N Obstetrics History GPAL:G 0 P 0 0 0 0 Past Encounters Encounter ID Performer Location Encounter Start Date Encounter Closed Date Diagnosis/Indication Diagnosis SNOMED-CT Code Diagnosis ICD10 Code Diagnosis Note [id number] Dustin Bates MD [facility] [address] [place] [address] 01/31/2022 12:49:37 01/31/2022 14:34:29 Cyst of abdomen 964890565 R19.00 Right lower abdomen. [id number] Dustin Bates MD [facility] [address] [facility] [place] [address] 02/14/2022 11:08:58 02/14/2022 11:32:42 Post-surgical wound care 649912325 Z48.01 Epidermoid cyst of skin 744622476 L72.3 [id number] Dustin Bates MD [facility] [address],[place] [address] 02/21/2022 10:29:04 02/21/2022 11:02:21 Cyst of abdomen 069608031 R19.00 Right lower abdomen. Postoperative visit 1836 87356 Z09 [id number] Maria Del Rosario Fritz NP, [facility] [address] [place] [address] [address] [place] [address] 06/14/2022 11:30:03 06/14/2022 12:34:15 History of urinary tract infection 8709983271 107 Z87.440 UA posiitve. Send for culture and sensitivit yStart Macrobid 100mg bid for [address] per renal mass protocol r/t renal lesionBUN and CreatRTC in [address] Ricks to go over CT scan results Renal mass 292400769 N28 .89 [id number] Girish Ricks MD [facility] [address] [place] [address],[facility] [address] [place] [address] 07/26/2022 13:30:42 07/26/2022 14:11:40 History of urinary tract infection 3095116457 107 Z87.440 Renal mass 994108364 N28 .89 Simple cyst Cyst of kidney 125638081 N28.1 Female str ess incontinence 25476460 N39.3 incontinen ce after urinating Delay when starting to pass urine 4757984 R39.11 Overactive urinary bladder 012900828 N32.81 [id number] Girish Ricks MD [facility] [address] [place] [address] [address] [place] [address] 02/19/2023 14:45:08 02/19/2023 15:12:19 History of urinary tract infection 4420881876 107 Z87.440 Renal mass 296225891 N28 .89 Simple cyst Cyst of kidney 847789434 N28.1 Female str ess incontinence 66134323 N39.3 incontinen ce after urinating Delay when starting to pass urine 4131596 R39.11 Overactive urinary bladder 357650922 N32.81 Abdominal pain 68199210 R10.9 Nausea and vomiting 1693 1999 R11.2 Diarrhea 14350218 R19.7 [id number] Kwabena Rubio PA-C [facility] [address] [place] [address] 03/27/2023 08:26:23 03/27/2023 09:09:52 Abdominal pain 40515802 R10.9 Diarrhea 96548491 R19.7 Colitis 15408228 K52.9 History of bypass of stomach 226168510 Z98.84 Dysphagia 87134790 R13.1 0 [id number] MAHNAZ STATON [facility] [address] [place] [address] 07/15/2024 09:31:47 07/15/2024 09:55:55 Bilateral subjective tinnitus of ears 4942516675 635441 H93.13 [id number] Aidee Rosas NP [facility] [address] [place] [address] 08/27/2024 09:57:10 08/27/2024 10:46:55 Generalized abdominal pain 526653373 R10.84 1 year hx generalize d abdominal cramping that comes and goes. Severe at times. Evaluated [facility] ED 08/23/[address] abdomen pelvis with IV and oral contrast noted small hiatal hernia, gastric bypass, liver cysts, diverticul osis as well as mild stool burden, negative for bowel obstructio n. Last colonoscop y at [facility] around 2019. Last EGD completed 04/10/2024 at [facility] by Dr. Nguyen which noted Eulogio-en-Y gastro jejunostom y with a gastrojeju nal anastomosi s ulceration . Recommend comprehens jhony evaluation with EGD/colono scopy to r/o underlying colitis, polyps, gastritis, other. Nausea 842351224 R11.0 Frequent nausea without vomiting. No regard to food. Last EGD completed 04/10/2024 at [facility] by Dr. Nguyen which noted Eulogio-en-Y gastro jejunostom y with a gastrojeju nal anastomosi s ulceration . Recommend continued avoidance of NSAIDS and continued use of PPI. Plan for EGD to further evaluate. Hx of cholecyste ctomy. Constipation 10025393 K5 9.00 occasional constipati on controlled with use of Linzess 72 mcg p.r.n.. Gastro-eso phageal reflux disease with esophagitis 382916825 K21.00 controlled with use of PPI. History of gastrointestinal tract bypass 871133416 Z98.84 Health Concerns Section Related Observation LastModified by Organization Detai ls LastModified Time None Recorded Concern Status LastModified by Organization Details LastModified Time None Recorded Advance Directives Directive N: Payers Insurance Date Sequence Insurance Name Policy Number Policy Giordano Covered Member ID Giordano Member ID Guarantor Name 11/03/2024 1 [place]MEDICARE REPLACEMENT REGIONAL PPO) [id number] Ambika Pratt [id number] Ambika Murillo Notes Date Note Type Note Provider Name and Address Organization Details Recorded Time 3 text/html The patient returns to clinic [...] seen Dr. fajardo 4 years ago at [facility] related to renal mass and was going to have surgery however, Dr. Gonzáles left and saw his music library assistant. She reports after seeing his music library assistant they recommended leaving a long stating that it was very small. She reports she has been having yearly CT scans at [facility] per Dr. Mi, states it has grown some. Patient went to [facility] ER on 08/01/2021 related to abdominal [...] she went to the emergency room at [facility] related to kidney stone and was sent to [facility] and had surgical procedure performed per Dr. Menendez. She reports she was discharged from [facility] on Sunday and then had to be admitted back at [facility] on Sunday related to stone and [...] which could indicate contamination.] Girish Ricks MD [address], [place], [address], [facility] [place] [facility] [place] [facility] [place] 07/30/2022 21:31:48 3 text/html Patient returns to clinic today for follow-up of lower urinary tract symptoms manifesting with urinary urgency, frequency and difficulty with bladder emptying. She is here today for possible cystoscopy but states that since December she has had protracted diarrhea, nausea, vomiting and abdominal cramping. She tells me she is waiting to see a inside horticultural specialty grower but is being told that it will [...] seen Dr. fajardo 4 years ago at [facility] related to renal mass and was going to have surgery however, Dr. Gonzáles left and saw his music library assistant. She reports after seeing his music library assistant they recommended leaving a long stating that it was very small. She reports she has been having yearly CT scans at [facility] per Dr. Mi, states it has grown some. Patient went to [facility] ER on 08/01/2021 related to abdominal [...] she went to the emergency room at [facility] related to kidney stone and was sent to [facility] and had surgical procedure performed per Dr. Menendez. She reports she was discharged from [facility] on Sunday and then had to be admitted back at [facility] on Sunday related to stone and [...] which could indicate contamination.] Girish Ricks MD [address] [facility], [place], [address], [place] [facility] [place] [facility] [place] 02/19/2023 15:10:22 3 text/html Pleasant 57-year-old female [...] EGD and colonoscopy 3 years ago at [facility]. Kwabena Rubio PA-C [address] [facility], [place], [address], [facility] 03/27/2023 09:18:58 5 text/html Ms. Murillo was seen today for an audiologic evaluation due to long-standing, ringing tinnitus bilaterally per Dr. Salima Mi DO. Ms. Pratt reports no sense of hearing loss, however, she feels as though her tinnitus can be distracting at times. She denies ear pain, aural fullness/pressure, dizziness, and excessive noise exposure. Otoscopic inspection was unremarkable bilaterally. Audiometric testing revealed a mild high freq SNHL bilaterally with good word rec scores. 1-Discussed findings with Ms. Pratt. 2-Discussed tinnitus management strategies. 3-F/u hearing testing annually to monitor. MAHNAZ STATON [address] [facility], [place], [address], [facility] & [place] 07/15/2024 10:23:24 5 text/html 58-year-old female with a past medical history gastric bypass, bowel obstruction, cholecystectomy, gastric ulcers, GERD, hypertension, hyperlipidemia, and psoriasis. Patient presents to clinic today with complaints of 1 year history abdominal cramping and nausea. She reports episodes of abdominal cramping severe at times. She wakes up with nausea experiences symptoms after eating without specific food triggers identified. She continues Protonix 40 mg b.i.d. with controlled GERD symptoms. She reports occasional constipation with use of Linzess 72 mcg prn. She was evaluated [facility] ED 08/23/[address] abdomen pelvis with IV and oral contrast noted small hiatal hernia, gastric bypass, liver cysts, diverticulosis as well as mild stool burden, negative for bowel obstruction. She had an EGD completed 04/10/2024 at [facility] in [place] by Dr. Nguyen which noted Eulogio-en-Y gastro jejunostomy with a gastrojejunal anastomosis ulceration. The anastomosis demonstrated circumferential ulceration with multiple smaller clean based ulcers distal to the proximal small bowel. She had been taking NSAIDs prior to this which she has since discontinued. Last colonoscopy [facility] in [place]. Aidee Rosas NP [address] [place] [address], [address], [place], [address], [facility] & [place] 09/11/2024 12:24:45 OBGyn Episode No OBEpisode recorded.
--- OUTSIDE RECORDS SUMMARY | 2024-11-25 21:47 | XMS_ITS | Encounter Summary ---
Author Organization [employer] ([place], [place], [place] Address [address] [place] [address] Care Team Providers Care Admissions Manager Name Role Phone Anujlizbet Salima Tate SWANN Primary Care Provider [phone] Encounter Details Date Type Department Care Team (Late st Contact Info) Description 10/11/2020 Transcribed Document [facility] [place] [address] [place] [address] ProviderQuincy MD [address] [place], [place] [address] Social History Tobacco Use Types Packs/Day Years [...] Numbers : Insurance 1 Health Plan: [facility] MEDIC[facility] REPL Policy Number: [id number] Authorization Number: Insurance Primary Name : [place] MEDICARE REPL Policy Number: [id number] Authorization Status-Primary : Awaiting callback Reference Number-Primary : [id number] Authorized Service Begin Date-Primary : 10/03/2020 EDT Authorization Comments-Primary : Remains pending per Avail[employer] Historical Authorization Comments-Primary : Comment 1: Email sent to madelyn (PING HOFFMANN RN 10/09/2020 15:11) Comment 2: Clinicals faxed via [employer] for IP approval (DEISY LIRA RN 10/05/2020 14:13) Comment 3: Clinicals submitted via [employer] for IP approval (DEISY LIRA RN 10/04/2020 08:24) PING HOFFMANN RN - 10/11/2020 12:11 EDT documented in this encounter Plan of Treatment Not on file documented as of this encounter Visit Diagnoses Not on filedocumented in this encounter Care Teams Admissions Manager Relationship Specialty Start Date End Date Salima Gonzáles, [address] [place] [address] PCP - General Family Medicine 02/09/23 documented as of this encounter
--- OUTSIDE RECORDS SUMMARY | 2024-11-25 21:47 | XMS_ITS | Encounter Summary ---
Author Organization [employer] ([place], [place] Address [address] [place] [address] Care Team Providers Care Sister Superior Name Role Phone Salima Gonzáles DO Primary Care Provider [phone] Encounter Details Date Type Department Care Team (Late st Contact Info) Description 10/06/2020 Transcribed Document [facility] [place] Family Medicine [address] [place] [address] ProviderQuincy MD [address] [place], [place] [address] Social History Tobacco Use Types Packs/Day Years [...] On: 10/06/2020 19:03 EDT by Jacque Ledezma MATERIALS ANALYST Patient Resource [facility] Provider Status : EST Other Established Provider Name : Dr. Salima [facility] Patient Phone Number : [phone] Patient Insurance Type : Medicare Source of [...] at ED : Other Primary Language : Zambian [facility] Comment : Scheduled hosptial f/u appts with PCP & Urology. Advised pt of appt information via telephone. Mailed appt reminders. Faxed H&P to PCP's office. Emailed appt information to medical case manager. Follow Up Needed : No Jacque Ledezma, MATERIALS ANALYST - 10/06/2020 19:03 EDT documented in this encounter Plan of Treatment Not on file documented as of this encounter Visit Diagnoses Not on filedocumented in this encounter Care Teams Sister Superior Relationship Specialty Start Date End Date Salima Gonzáles DO [address] [facility] [address] [place] [address] PCP - General Family Medicine 02/09/23 documented as of this encounter
--- OUTSIDE RECORDS SUMMARY | 2024-11-25 21:47 | XMS_ITS | Encounter Summary ---
Author Organization [employer] ([place], [place], [place], [place]) Address [address] [place] [address] Care Team Providers Care Collision Worker Name Role Phone Eliecer Salima [place] SWANN Primary Care Provider [phone] Encounter Details Date Type Department Care Team (Late st Contact Info) Description 10/04/2020 Transcribed Document [facility] [place] Family Medicine [address] [place] [address] ProviderQuincy MD [address] [place], [place] [address] Social History Tobacco Use Types Packs/Day Years [...] Numbers : Insurance 1 Health Plan: [facility] MEDIC[facility] REPL Policy Number: [id number] Authorization Number: Insurance Primary Name : [employer] MEDICARE REPL Policy Number: [id number] Authorization Status-Primary : Awaiting callback Reference Number-Primary : [id number] Authorized Service Begin Date-Primary : 10/03/2020 EDT Authorization Comments-Primary : [facility] Historical Authorization Comments-Primary : No Authorization Comments Found DEISY LIRA, RN - 10/04/2020 8:24 EDT Electronically signed by Nuzhat Barahona Conversion Manager [employer] at 08/23/2022 11:14 AM CDT documented in this encounter Plan of Treatment Not on file documented as of this encounter Visit Diagnoses Not on filedocumented in this encounter Care Teams Collision Worker Relationship Specialty Start Date End Date Salima Gonzáles, 8 [facility] [address] [place] [address] PCP - General Family Medicine 02/09/23 documented as of this encounter
--- NOTE | 2024-11-25 21:48 | ECG_ITS ---
APPROVED REPORT Exam: Resting ECG HR:72 bpm ECG Measurements Heart Rate 72 AXES AK 130 P 44 QRSd 83 QRS 33 QT 377 T 60 QTc 402 Conclusion Normal sinus rhythm at [address] or T wave changes concerning for ischemia Electronically signed by : Dahlia Bright, 11/26/2024 00:33:03
--- OUTSIDE RECORDS SUMMARY | 2024-11-25 21:48 | XMS_ITS | Encounter Summary ---
Author Organization [employer] ([place], [place], [place] Address [address] [place] [address] Care Team Providers Care Hall Manager Name Role Phone Salima Gonzáles Primary Care Provider [phone] Encounter Details Date Type Department Care Team (Late st Contact Info) Description 10/03/2020 Transcribed Document [facility] [place] [address] [place] [address] ProviderQuincy MD [address] [place], [place] [id number] Social History Tobacco Use Types Packs/Day Years [...] filedocumented in this encounter Care Teams Hall Manager Relationship Specialty Start Date End Date Salima Gonzáles, DO [address] [address] PCP - General Family Medicine 02/09/23 documented as of this encounter
--- OUTSIDE RECORDS SUMMARY | 2024-11-25 21:48 | XMS_ITS | Encounter Summary ---
Author Organization [employer] ([place], [place] Address [address] [place] [address] Care Team Providers Care Stereo Equipment Salesperson Name Role Phone Salima Gonzáles DO Primary Care Provider [phone] Encounter Details Date Type Department Care Team (Late st Contact Info) Description 10/08/2019 Transcribed Document [facility] [place] Family Medicine [address] [place] [address] ProviderQuincy MD [address] [place], [place] [address] Social History Tobacco Use Types Packs/Day Years [...] serving. ??? Talk with a diet and staffing specialist (dietitian) if you have questions about [...] Bulgur wheat. Millet. Quinoa. Bran muffins. Popcorn. [place]dee wafer crackers. Meats and other proteins [place], kidney, and cox beans. Soybeans. Split peas. [...] Cream cheese. Sour cream. Fats and oils [place]. Beverages Soft drinks. Other foods Cakes and [...] 04/23/2006 Document Revised: 02/25/2018 Document Reviewed: 02/25/2018 [employer] Patient Education ? 2019 [employer]. Gastritis, Adult Gastritis is swelling (inflammation) of [...] these instructions at home: Medicines ??? Take skpi-laq-lgecgbt and prescription medicines only as told by [...] 10/09/2008 Document Revised: 09/10/2018 Document Reviewed: 09/10/2018 [employer] Patient Education ? 2019 [employer]. Colitis Colitis is inflammation of the colon. [...] you start to feel better. ??? Take vajw-epy-yhnftiv and prescription medicines only as told by [...] 05/31/2005 Document Revised: 10/24/2018 Document Reviewed: 10/24/2018 [employer] Patient Education ? 2019 [employer]. Hemorrhoids Hemorrhoids are swollen veins that may [...] times a day. General instructions ??? Take wkcj-sps-kfwkbke and prescription medicines only as told by [...] 01/30/2009 Document Revised: 09/12/2018 Document Reviewed: 09/12/2018 [employer] Patient Education ? 2019 [employer]. Colonoscopy, Adult, Care After This sheet [...] soft and easy to digest. ??? Take mniq-pvt-rlixfpc or prescription medicines only as told by [...] 05/26/2011 Document Revised: 02/21/2018 Document Reviewed: 01/15/2017 [employer] Patient Education ? 2019 [employer] Esophagogastroduodenoscopy, Care After Refer to this [...] 04/09/2013 Document Revised: 09/28/2016 Document Reviewed: 03/16/2016 [employer] Patient Education ? 2019 [employer]. Electronically signed by Nuzhat Barahona Conversion Health Information Assistant Cerner at 08/23/2022 10:52 AM CDT documented in this encounter Plan of Treatment Not on file documented as of this encounter Visit Diagnoses Not on filedocumented in this encounter Care Teams Stereo Equipment Salesperson Relationship Specialty Start Date End Date Salima Gonzáles DO [address] [facility] [address] [place] [address] PCP - General Family Medicine 02/09/23 documented as of this encounter
--- OUTSIDE RECORDS SUMMARY | 2024-11-25 21:48 | XMS_ITS | Encounter Summary ---
Author Organization [facility] yste Address [address] [place] [address] Care Team Providers Care Wood Tool Maker Name Role Phone Salima Gonzáles DO Primary Care Provider [phone] Encounter Details Date Type Department Care Team (Late st Contact Info) Description 10/07/2024 Results Follow-Up [facility] [address] [place] [address] Alea Juarez PRODUCT DEVELOPMENT CONSULTANT [address] [place] [address] Social History Tobacco Use Types Packs/Day [...] filedocumented in this encounter Care Teams Wood Tool Maker Relationship Specialty Start Date End Date Salima Gonzáles DO [address] [place] [address] PCP - General Family Medicine 02/21/17 documented as of this encounter
--- OUTSIDE RECORDS SUMMARY | 2024-11-25 21:48 | XMS_ITS | Encounter Summary ---
Author Organization [employer] ([place], [place], [place], [place]) Address [address] [place] [address] Care Team Providers Care Dealmaker Name Role Phone AnujSalima somers Primary Care Provider [phone] Encounter Details Date Type Department Care Team (Late st Contact Info) Description 10/04/2020 Transcribed Document [facility] [place] Family Medicine [address] [place] [address] ProviderQuincy MD [address] [place], [place] [id number] Social History Tobacco Use Types Packs/Day Years [...] left the operating room in satisfactory condition. /[id number] Gatito Menendez MD [facility] / [facility] / MOD[facility] /[id number] Electronically signed by [place] [facility] Conversion Concession Stand Attendant Cerner at 08/23/2022 10:57 AM CDT documented in this encounter Plan of Treatment Not on file documented as of this encounter Visit Diagnoses Not on filedocumented in this encounter Care Teams Dealmaker Relationship Specialty Start Date End Date Salima Gonzáles, DO [address] [facility] [address] [place] [address] PCP - General Family Medicine 02/09/23 documented as of this encounter
--- OUTSIDE RECORDS SUMMARY | 2024-11-25 21:48 | XMS_ITS | Encounter Summary ---
Author Organization [employer] ([place], [place], [place], [place]) Address [address] [place] [address] Care Team Providers Care Roving Carrier Name Role Phone Salima Gonzáles Primary Care Provider [phone] Encounter Details Date Type Department Care Team (Late st Contact Info) Description 10/03/2020 Transcribed Document [facility] [place] [address] [place] [address] ProviderQuincy MD [address] [place], [place] [id number] Social History Tobacco Use Types Packs/Day Years [...] 3:28 EDT Pain Scale Intensity : 3 AveryJanae blairKIRA - 10/05/2020 3:28 EDT Image 4 - Images currently included in the form version of this document have not been included in the text rendition version of the form. Electronically signed by [place], [facility] Conversion Chief Electrician Cerner at 08/27/2022 3:31 PM CDT documented in this encounter Plan of Treatment Not on file documented as of this encounter Visit Diagnoses Not on filedocumented in this encounter Care Teams Roving Carrier Relationship Specialty Start Date End Date Salima Gonzáles DO [address] [facility] [address] [place] [address] PCP - General Family Medicine 02/09/23 documented as of this encounter
--- OUTSIDE RECORDS SUMMARY | 2024-11-25 21:48 | XMS_ITS | Clinical Summary ---
Author Organization [facility] [place] [address] Care Team Providers Care Cigarette Vendor Name Role Phone Unavailable Primary Care Provider [...] Date Last Done Comments Annual Wellness Exam 12/21/1967 Hepatitis C Screening 1982 DTaP/TDaP/Td (1 - Tdap) 12/21/1983 Hepatitis B Vaccine (1 of 3 - 19+ 3-dose series) 12/21/1983 Cologuard 2009 Colon Cancer Screening 2009 Colonoscopy 2009 FIT 2009 Sigmoidoscopy 2009 Virtual Colonography 2009 Pneumococcal Vaccine 50+ (1 of 1 - PCV) 2014 Zoster (1 of 2) 2014 COVID-19 Vaccine ( - 2023-2 5 season) 2024 Influenza Vaccine (#1) 2025 Meningococcal B Vaccine Aged Out No l onger eligible based on patient's age to complete this topic
--- OUTSIDE RECORDS SUMMARY | 2024-11-25 21:48 | XMS_ITS | Encounter Summary ---
Author Organization [employer] ([place], [place], [place], [place]) Address [address] [place] [address] Care Team Providers Care Inside Outside Sales Representative Name Role Phone Salima Gonzáles DO Primary Care Provider [phone] Encounter Details Date Type Department Care Team (Late st Contact Info) Description 10/08/2019 Transcribed Document [facility] Family Medicine [address] [place] [address] ProviderQuincy MD [address] [place] [address] Social History Tobacco Use Types [...] Kate MD - 10/08/2019 10:35 AM CDT [facility] [place] [address] AMBIKA PIERRE :1965 Visit Time:10/08/2019 [...] office, November 09 at 11:00am Where: [address] [id number]- Medications What How Much When Instructions Next [...] serving. ??? Talk with a diet and commissioning specialist (dietitian) if you have questions about [...] Bulgur wheat. Millet. Quinoa. Bran muffins. Popcorn. [place] wafer crackers. Meats and other proteins [place], kidney, and cox beans. Soybeans. Split peas. [...] Cream cheese. Sour cream. Fats and oils [place]. Beverages Soft drinks. Other foods Cakes and [...] 04/23/2006 Document Revised: 02/25/2018 Document Reviewed: 02/25/2018 [employer] Interactive Patient Education ?? 2019 [employer] Gastritis, Adult Gastritis is swelling (inflammation) [...] these instructions at home: Medicines ??? Take asno-nnr-bnlgldq and prescription medicines only as told by [...] 10/09/2008 Document Revised: 09/10/2018 Document Reviewed: 09/10/2018 [employer] Interactive Patient Education ?? 2019 [employer]. Colitis Colitis is inflammation of the colon. [...] you start to feel better. ??? Take nsbh-psy-pldcyrd and prescription medicines only as told by [...] 05/31/2005 Document Revised: 10/24/2018 Document Reviewed: 10/24/2018 [employer] Interactive Patient Education ?? 2019 [employer] Inc. [...] times a day. General instructions ??? Take zbpn-nmq-zkeomhr and prescription medicines only as told by [...] 01/30/2009 Document Revised: 09/12/2018 Document Reviewed: 09/12/2018 [employer] Interactive Patient Education ?? 2019 [employer]. Colonoscopy, Adult, Care After This sheet gives [...] soft and easy to digest. ??? Take fosy-kln-fsfmynn or prescription medicines only as told by [...] 05/26/2011 Document Revised: 02/21/2018 Document Reviewed: 01/15/2017 [employer] Interactive Patient Education ?? 2019 [employer] Esophagogastroduodenoscopy, Care After Refer to this [...] 04/09/2013 Document Revised: 09/28/2016 Document Reviewed: 03/16/2016 [employer] Interactive Patient Education ?? 2019 [employer]. metronidazole (me irma hawk) FIRST Metronidazole, Flagyl, [...] (more likely to occur while taking metronidazole mcc): ?? numbness, tingling, or burning pain in [...] may report side effects to FDA at 2-639-ATU-9064. What other drugs will affect metronidazole? Sometimes [...] drugs may affect metronidazole, including prescription and qcni-tzw-lxdwcgt medicines, vitamins, and herbal products. Not all [...] to ensure that the information provided by [employer] ('[employer]') is accurate, up-to-date, and complete, but no guarantee is made to that effect. Drug information contained herein may be time sensitive. [employer] information has been compiled for use by healthcare practitioners and consumers in the [place] and therefore [employer] does not warrant that uses outside of the [place] are appropriate, unless specifically indicated otherwise. [employer] drug information does not endorse drugs, diagnose patients or recommend therapy. [employer] drug information is an informational resource designed [...] effective or appropriate for any given patient. [employer] does not assume any responsibility for any aspect of healthcare administered with the aid of information [employer] provides. The information contained herein is not intended to cover all possible uses, directions, precautions, warnings, drug interactions, allergic reactions, or adverse effects. If you have questions about the drugs you are taking, check with your doctor, nurse or pharmacist. Copyright 9513-6864 [employer] Version: 12.02. Revision Date: 02/25/2018. linaclotide (GENEVIEVE [...] may report side effects to FDA at 0-492-AQX-1389. What other drugs will affect linaclotide? Other drugs may interact with linaclotide, including prescription, qhkx-fyd-gchfjcl, vitamin, and herbal products. Tell your doctor [...] to ensure that the information provided by [employer]') is accurate, up-to-date, and complete, but no guarantee is made to that effect. Drug information contained herein may be time sensitive. [employer] information has been compiled for use by healthcare practitioners and consumers in the [place] and therefore [employer] does not warrant that uses outside of the [place] are appropriate, unless specifically indicated otherwise. [employer] drug information does not endorse drugs, diagnose patients or recommend therapy. [employer] drug information is an informational resource designed [...] effective or appropriate for any given patient. [employer] does not assume any responsibility for any aspect of healthcare administered with the aid of information [employer] provides. The information contained herein is not intended to cover all possible uses, directions, precautions, warnings, drug interactions, allergic reactions, or adverse effects. If you have questions about the drugs you are taking, check with your doctor, nurse or pharmacist. Copyright 3975-3693 [employer] Version: 4.02. Revision Date: 01/23/2017. pantoprazole (oral/injection) [...] a broken bone while taking this medicine mcc or more than once per day. What [...] may report side effects to FDA at 7-536-EYU-4444. What other drugs will affect pantoprazole? Tell your doctor about all your other medicines, especially: ?? digoxin; ?? methotrexate; or ?? a diuretic or 'water pill.' This list is not complete. Other drugs may affect pantoprazole, including prescription and wmwz-uyr-nhpnefa medicines, vitamins, and herbal products. Not all [...] to ensure that the information provided by [employer] ('[employer]') is accurate, up-to-date, and complete, but no guarantee is made to that effect. Drug information contained herein may be time sensitive. [employer] information has been compiled for use by healthcare practitioners and consumers in the [place] and therefore [employer] does not warrant that uses outside of the [place] are appropriate, unless specifically indicated otherwise. [employer] drug information does not endorse drugs, diagnose patients or recommend therapy. [employer] drug information is an informational resource designed [...] effective or appropriate for any given patient. [facility] does not assume any responsibility for any aspect of healthcare administered with the aid of information [employer] provides. The information contained herein is not intended to cover all possible uses, directions, precautions, warnings, drug interactions, allergic reactions, or adverse effects. If you have questions about the drugs you are taking, check with your doctor, nurse or pharmacist. Copyright 5618-0092 [employer] Version: 19.02. Revision Date: 10/30/2017. Emergency Awareness [...] Assistance with quitting is available by contacting 8-951-TSAG-NOW. This is a free resource providing counseling, [...] was given the opportunity to ask questions. Patient/Photolith Operator Name: Patient/Photolith Operator Signature: Relationship to Patient: Clinician/Hospital Photolith Operator Signature: Date: documented in this encounter Plan of Treatment Not on file documented as of this encounter Visit Diagnoses Not on filedocumented in this encounter Care Teams Inside Outside Sales Representative Relationship Specialty Start Date End Date Salima Gonzáles, [address] [facility] [address] [place] [address] PCP - General Family Medicine 02/09/23 documented as of this encounter
--- OUTSIDE RECORDS SUMMARY | 2024-11-25 21:48 | XMS_ITS | Encounter Summary ---
Author Organization [employer] ([place], [place], [place], [place]) Address [address] [place] [address] Care Team Providers Care Bulk Folder Name Role Phone Salima Gonzáles Primary Care Provider [phone] Encounter Details Date Type Department Care Team (Late st Contact Info) Description 10/03/2020 Transcribed Document [facility] [place] Family Medicine [address] [place] [address] ProviderQuincy MD [address] [place], [place] [phone] Social History Tobacco Use Types Packs/Day Years Used Date Smoking Tobacco: Never Assessed Comments Unknown Sex and Gender Information Value Date Recorded Sex Assigned at Not on file Legal Sex Female 2:54 PM CDT Gender Identity Not on file Sexual Orientation Not on file documented as of this encounter Miscellaneous Notes * Cerner Conversion Note - Quincy Kate MD - 10/03/2020 7:21 PM CDT Pain Assessment Entered On: 10/04/2020 11:29 EDT Performed On: 10/04/2020 7:35 EDT by Hoa Coleman RN Intervention Information: HYDROmorphone Performed by Lj Villarreal, DIANE on 10/04/2020 07:05:00 EDT HYDROmorphone,0.2mg IV Push,Right Lower Forearm,Pain (Severe 7-10) Pain Assessment Pain Assessment : Follow-up assessment Pain Improved by Intervention : Yes Hoa Coleman RN - 10/04/2020 11:28 EDT Electronically signed by [place] [facility] Conversion Pipe Foreman Cerner at 08/27/2022 3:30 PM CDT documented in this encounter Plan of Treatment Not on file documented as of this encounter Visit Diagnoses Not on filedocumented in this encounter Care Teams Bulk Folder Relationship Specialty Start Date End Date Salima Gonzáles, [address] [facility] [address] [place] [id number] PCP - General Family Medicine 02/09/23 documented as of this encounter
--- OUTSIDE RECORDS SUMMARY | 2024-11-25 21:48 | XMS_ITS | Data Portability ---
Author Organization [place] - [facility] DESMOND[facility]A YESSYLulu Mayes MD Address [address] [facility] [address] [place] [address] Care Team Providers Care Bench Assembler Electrical Name Role Phone MARCOS MI Primary Care Provider Assessment No assessment recorded. Plan of Treatment Reminders Order Date Submit Date Provider Last Modified By Organization Details Last Modified Time Details Appointments None recorded. Lab None recorded. Referral None recorded. Procedures None recorded. Surgeries None recorded. Imaging None recorded. Medication Orders clindamyci n HCl 300 mg capsule 2018 019 ATHENAFAX [facility], [address], [address], 9 13:35:10 mupirocin 2 % topical ointment 2017 018 lauxier [facility], [address], [address], 9 12:19:54 Patient TargetsNo targets recorded. Patient Instructions Encounter Date Encounter Id Patient Instructions Last Modified By Organization Details Last Modified Time 05/29/2017 [id number] plantar fasciiti s: care instructions Not available 05/29/2017 14:34:33 plantar fasciiti s: exercises Not available 05/29/2017 14:34:33 Quitting Tobacco : Care Instructions Not available 05/29/2017 14:39:15 When You Want to Lose Weight: Care Instructions Not available 05/29/2017 14:39:45 Antibacterial shower night before and am of surgery. NPO at midnight before surgery. Not available 05/30/2017 19:55:56 06/22/2017 [id number] Follow up for suture removal. Says understands home exercises for motion. Says understands activity restrictions. Not available 06/22/2017 10:49:37 07/04/2017 [id number] plantar fasciiti s: exercises Not available 07/04/2017 10:30:49 Contact us when regains motion and strength and incision completely healed for note to RTW. Not available 07/04/2017 10:34:09 Says understands importance of edema managment and activity restrictions until incision completely healed. Not available 07/04/2017 20:01:28 09/26/2018 [id number] eating healthy foods: care instructions Not available 09/26/2018 15:57:46 knee: exercises Not available 09/26/2018 15:56:29 Learning About Benefits of Quitting Smoking Not available 09/26/2018 15:58:07 Discuss ESR with Lineman to see if candidate for change in medical plan of care for psoriasis. Not available 09/26/2018 15:59:53 Says knows can consider nuclear medicine study if symptoms persist. Not available 09/26/2018 16:00:29 Reason for Referral None Reported. Results Created Date Observation Date Name Description Value Unit Range Abnormal Flag Note LastModifiedBy Organization Detail LastModifiedTime 05/31/19 18 04/20/2017 MRI, foot, w/o contr ast No observ ation record ed. BARCODE Not Available 2017 08:48:44 05/31/19 18 05/16/2017 XR, foot No observ ation record ed. BARCODE Not Available 2017 08:48:44 05/31/19 18 05/16/2017 XR, calca neus No observ ation record ed. BARCODE Not Available 2017 08:48:44 05/31/19 18 05/31/2017 elect elvia marygr am No observ ation record ed. Not Available 2017 11:54:28 06/06/19 18 05/31/2017 XR, chest , 2 view No observ ation record ed. Not Available 2017 19:50:07 06/20/19 18 06/18/2017 XR, foot, 3 or more view No observ ation record ed. Not Available 2017 21:05:30 06/21/19 18 06/18/2017 XR, foot, 3 or more view No observ ation record ed. [facility] [address] [facility], [place], [address], 06/21/2017 11:17:06 09/27/19 19 09/25/2018 XR, knee, 3 view No observ ation record ed. [email or web address] Not Available 2018 12:50:18 Result Notes None recorded. Problems Name Problem SNOMED Code Status Onset Date Resolution Date Notes Provider Name and Address Organization Details Recorded Time Diabetes mellitus 67954531 Active 2017 Aminah Monroe RMA null, [facility] 8 14:09:12 Hypertensive disorder 68813718 Active 2017 Aminah Monroe RMA null, [facility] 8 14:09:18 Disorder of thyroid gland 23121526 Active 2017 Aminah Monroe RMA null, [facility] 8 14:09:27 Psoriasis 8416006 Active 2017 Aminah Monroe RMA null, [facility] 8 14:09:33 Anemia 167123614 Active 2017 Aminah Monroe RMA null, [facility] 8 14:09:40 Problem Notes None recorded. Procedures Surgical History Date Name Laterality Status Provider Name and Address Organization Details Recorded Time knee surgery completed Aminah Monroe RMA [facility] 05/29/2017 14:11:11 Other completed Aminah Monroe RMA [facility] 05/29/2017 14:11:34 Gastrointestinal Surgery completed Aminah Monroe RMA [facility] 05/29/2017 14:11:48 Gallbladder removal completed Aminah Monroe RMA [facility] 05/29/2017 14:12:05 Hysterectomy/bladder repair completed Aminah Monroe RMA [facility] 05/29/2017 14:12:12 Tonsillectomy completed Aminah Hubbard r REGGIE [facility] 05/29/2017 14:12:18 Brain Surgery completed Aminah Hubbard r REGGIE [facility] 05/29/2017 14:12:35 Other completed Aminah PAREDES [facility] 05/29/2017 14:12:47 Kidney/Bladder Surgery completed Aminah PARDEES [facility] 05/29/2017 14:13:02 Imaging Results None recorded. Procedure Notes None recorded. Medical Equipment None Reported. Allergies Allergen ID Allergen Name Allergen Category Reaction Reaction Severity Criticality Documentation Date Start Date Code Code System Note Provider Name and Address Organization Details Recorded Time 93469 morphine medicatio n Not available Not available Not available 05/29/2017 7052 RxNorm Aminah dickson [facility] 8 14:05:29 Medications Name Sig Start Date Stop Date Status Note LastModified by Organization Details LastModified Time celecoxib 200 mg capsule 09/26 completed Not Available Not Available Not Available fluoxetine 40 mg capsule active Not Available Not Available Not Available cyclobenzap rine 10 mg tablet active Not Available Not Available Not Available amoxicillin 500 mg capsule 09/26 completed Not Available Not Available Not Available bupropion HCl SR 150 mg tablet,12 hr sustained-r elease active Not Available Not Available Not Available prednisone 10 mg tablet 09/26 completed Not Available Not Available Not Available clindamycin HCl 300 mg capsule Take 2 capsules every 6 hours by oral route as directed. 2018 active Not Available Not Available Not Avai lable clarithromy steven 250 mg tablet 09/26 completed Not Available Not Available Not Available azithromyci n 250 mg tablet 09/26 completed Not Available Not Available Not Available fluconazole 150 mg tablet 09/26 completed Not Available Not Available Not Available hydrocodone 5 mg-acetamin ophen 325 mg tablet active Not Available Not Available No t Available Nystop 100,000 unit/gram topical powder active Not Available Not Available Not Available promethazin e 12.5 mg tablet 09/26 completed Not Available Not Available Not Available prednisone 20 mg tablet 09/26 completed Not Available Not Available Not Available atenolol 25 mg tablet 05/29 completed Not Available Not Available Not Available sumatriptan 50 mg tablet 05/29 completed Not Available Not Available Not Available sulfamethox azole 800 mg-trimetho prim 160 mg tablet 09/26 completed Not Available Not Available Not Available hydrocodone 10 mg-acetamin ophen 325 mg tablet 07/04 completed Not Available Not Available Not Available omeprazole 40 mg capsule,del ayed release 09/26 completed Not Available Not Available Not Available tramadol 50 mg tablet 09/26 completed Not Available Not Available Not Available amitriptyli ne 50 mg tablet active Not Available Not Available Not Available triamcinolo ne acetonide 0.1 % topical cream active Not Available Not Available Not Available baclofen 10 mg tablet active Not Available Not Available No t Available simvastatin 5 mg tablet active Not Available Not Available Not Available cephalexin 500 mg capsule 09/26 completed Not Available Not Available Not Available erythromyci n 5 mg/gram (0.5 %) eye ointment 09/26 completed Not Available Not Available Not Available oseltamivir 75 mg capsule 05/29 completed Not Available Not Available Not Available levothyroxi ne 125 mcg tablet active Not Available Not Available Not Available tobramycin 0.3 % eye drops 05/29 completed Not Available Not Available Not Available nystatin 100,000 unit/gram topical cream active Not Available Not Available Not Available lansoprazol e 30 mg capsule,del ayed release active Not Available Not Available Not Available valsartan 320 mg tablet active Not Available Not Available Not Available indomethaci n 25 mg capsule 09/26 completed Not Available Not Available Not Available montelukast 10 mg tablet active Not Available Not Available Not Available mupirocin 2 % topical ointment apply to incision with each dressing change 09/26 completed Not Available Not Available Not Available epinephrine 0.3 mg/0.3 mL injection, auto-inject or active Not Available Not Available Not Available levofloxaci n 500 mg tablet 09/26 completed Not Available Not Available Not Available fluticasone propionate 50 mcg/actuati on nasal spray,suspe nsion 09/26 completed Not Available Not Available Not Available amoxicillin 875 mg-potassiu m clavulanate 125 mg tablet 05/29 completed Not Available Not Available Not Available Ventolin HFA 90 mcg/actuati on aerosol inhaler active Not Available Not Available Not Available clindamycin phosphate 1 % topical solution active Not Available Not Available Not Available olmesartan 40 mg tablet active Not Available Not Available Not Available Pneumovax-2 3 25 mcg/0.5 mL injection syringe 09/26 completed Not Available Not Available Not Available nitrofurant oin monohydrate /macrocryst als 100 mg capsule 05/29 completed Not Available Not Available Not Available Lyrica 150 mg capsule active Not Available Not Available N ot Available Lyrica 200 mg capsule 09/26 completed Not Available Not Available Not Available OneTouch UltraMini kit active Not Available Not Available Not Available Januvia 100 mg tablet active Not Available Not Available No t Available Enbrel SureClick 50 mg/mL (1 mL) subcutaneou s pen injector active Not Available Not Available Not Available Symbicort 160 mcg-4.5 mcg/actuati on HFA aerosol inhaler active Not Available Not Available Not Available Havrix (PF) 1,440 ALTON unit/mL intramuscul ar syringe 09/26 completed Not Available Not Available Not Available Adacel (Tdap Adolesn/Dave lt)(PF)2 Lf-(2.5-5-3 -5)-5 Lf/0.5 mL IM syringe 09/26 completed Not Available Not Available Not Available OneTouch Delica Lancets 33 gauge active Not Available Not Available Not Available Enstilar 0.005 %-0.064 % topical foam active Not Available Not Available Not Available OneTouch Ultra Blue Test Strip active Not Available Not Available N ot Available Fluarix Quad (PF) 60 mcg (15 mcg x 4)/0.5 mL IM syringe 09/26 completed Not Available Not Available Not Available Vitals Date Recorded Body height Body temperature Heart rate Body mass index (BMI) Body weight Systolic And Diastolic Provider Name and Address Organization Details Last Updated DateTime 8 154.94 cm 98.2 [degF] 69 /min 52 kg/m2 339848. 9 g 132/89 mm[Hg] Aminah Huddleston A [place] - [facility] 8 14:05:01 Date Recorded Body height Body mass index (BMI) Body weight Body temperature Heart rate Systolic And Diastolic Provider Name and Address Organization Details Last Updated DateTime 8 154.94 cm 52 kg/m2 499409. 9 g 98.2 [degF] 77 /min 152/112 mm[Hg] Aminah PAREDES [facility] 8 10:02:40 Date Recorded Body height Body mass index (BMI) Body weight Heart rate Body temperature Systolic And Diastolic Provider Name and Address Organization Details Last Updated DateTime 8 154.94 cm 52 kg/m2 886123. 9 g 83 /min 97.8 [degF] 148/94 mm[Hg] Aminah PAREDES [facility] 8 09:50:59 Date Recorded Body height Body mass index (BMI) Provider Name and Address Organization Details Last Updated DateTime 09/26/2018 154.94 cm 54.2 kg/m2 John Doty MD [address] [place], [address] 09/26/2018 13:18:17 Date Recorded Body temperature Body weight Heart rate Systolic And Diastolic Provider Name and Address Organization Details Last Updated DateTime 09/26/2018 98.2 [degF] 042346.0 1 g 68 /min 128/72 mm[Hg] Aminah Huddleston Bekah [facility] 09/26/2018 12:17:07 Social History Question Answer Notes LastModified by Organizat ion Details LastModified Time Tobacco Smoking Status Current Every Day Smoker Aminah PAREDES [facility] 05/29/2017 14:10:22 What Was The Date Of Your Most Recent Tobacco Screening? 09/26/2018 Information n ot available 11/29/2018 How Much Tobacco Do You Smoke? 0.25 PPD Information not available 09/26/2018 How Many Years Have You Smoked Tobacco? 38 Information not available 05/29/2017 Sex: Unknown Functional Status None recorded. Mental Status None recorded. Family History Relationship Description Onset Age of this Age Resolved Age Notes LastModified by Organization Details LastModified Time Father Hypertensive disorder lauxier Not available 2017 14:09:58 Mother Hypertensive disorder lauxier Not available 2017 14:09:58 Mother Diabetes mellitus lauxier Not available 2017 14:10:08 Medical History Condition Response ARTHRITIS Y USE OF BLOOD THINNERS N RHEUMATIC FEVER N HEADACHES N STROKE N DIABETES Y HIGH CHOLESTEROL N BLOOD CLOTS N ASTHMA Y HEPATITIS / LIVER DISEASE N PULMONARY DISEASE N CAROTID BLOCKAGE N CONCUSSION OR SPINAL TRAUMA N SEIZURES N BROKEN BONES N BACK / NECK PROBLEMS N DEPRESSION (INCLUDING POST ) Y HAVE YOU BEEN HOSPITALIZED OR SEEN IN [facility] IN THE PAST YEAR ? N HERPES N THYROID DISEASE Y DIZZINESS N FRACTURES N HERNIATED DISC N SPINE FRACTURES N HYPERTENSION Y CARDIAC ARRHYTHMIA N CANCER: SPECIFY N HIV / AIDS N ANEMIA/BLOOD DISORDER Y ANEURYSM N PULMONARY EMBOLISM N OSTEOPOROSIS N HEART DISEASE N Gynecological HistoryNo gynecological history recorded. Obstetrics History GPAL:G 0 P 0 0 0 0 Past Encounters Encounter ID Performer Location Encounter Start Date Encounter Closed Date Diagnosis/Indication Diagnosis SNOMED-CT Code Diagnosis ICD10 Code Diagnosis Note [id number] MD [facility]Y [facility] [address] [place] [address] [address] [place] [id number] 05/29/2017 13:24:51 05/31/2017 07:52:07 Plantar fasciitis 314012967 M72.2 Today the diagnosis, treatment plan, and prognosis have been discussed. A descriptio n of the planned procedure and its purpose has been provided. I stressed that outcomes are difficult to predict. I went over the patient's expected post procedure treatment course. I discussed the patient's risk factors, potential benefits, and the most common and most severe potential complicati ons. I stressed that all interventi on involves some risks and hazards, and that no warranty or guarantee is made as to the result of surgery. All questions and concerns were addressed. Says ready to proceed with fasciectom y and heel spur resection. Says understand s will need IV medication s requiring monitoring to limit toxicity. Smoker 81605717 F17.218 [facility] surgery and smoking handout provided and discussion completed. Morbid obesity 431503950 E66.01 Pre-surgery testing 1104 37106 Z01.89 CXR, EKG, MRSA nasal swab Consult Dr Mi for evaluation for surgery risks. [id number] MD [facility]ESSY [facility] [address] [place] [address] te 4 [place] [address] 06/22/2017 09:45:48 06/22/2017 16:17:47 Plantar fasciitis 399295556 M72.2 A prefabrica matheus low profile right cast walker boot was provided to the patient today. Rusyt orry 15 minutes was spent in fitting and education in brace use. The orthotic is medically necessary in the treatment of the lower extremity pathology. [id number] MD [facility]ESSY [facility] [address] [place] [address],[address] [place] [address] 07/04/2017 09:33:33 07/04/2017 21:18:09 Plantar fasciitis 715982395 M72.2 lortab 5/325 bid prn pain, # [id number] MD [facility] [address] [place] [address],[address] [place] [address] 09/26/2018 10:57:06 09/26/2018 16:42:50 Effusion of joint of right knee 2572370432 59173 M25.461 Verbal consent was obtained. The area was prepped and sterile technique was used. With use of local anesthetic , aspiration /injection was performed. The area was cleaned and dressed. Today's right knee aspirate was 8 cc and clear. The injection was with 40 mg depomedrol and 2 cc marcaine. Fluid appearance in conjuction with WBC/CRP results did not indicate fluid C&S today. History of right total knee replacement 0972433804 951639 Z96.651 A prescripti on for medication (s) was provided for the patient today. The office policy regarding prescripti on medication (s) was reviewed in detail. Instructio ns in use were provided. A discussion of the most common and most severe side effects was completed. All questions and concerns were addressed. Patient and any involved family members report full understand ing of the policy. Each medication recommende d today was medically necessary in treatment planning. Body mass index 40+ - severely obese 376304766 Z68.43 Smoker 01644187 F17.218 [facility] surgery and smoking handout provided and discussion completed. Health Concerns Section Related Observation LastModified by Organization Detai ls LastModified Time None Recorded Concern Status LastModified by Organization Details LastModified Time None Recorded Advance Directives Directive None Recorded Payers Insurance Date Sequence Insurance Name Policy Number Policy Giordano Covered Member ID Giordano Member ID Guarantor Name 07/11/2017 1 [place] Neetu Pratt [id number] Neetu Pratt 09/26/2018 1 [place]ACEMENT [place]IONAL PPO[place] Neetu Pratt [id number] Neetu Pratt 09/26/2018 1 [place] Neetu Pratt [id number] Neetu Pratt 04/20/2019 1 [place] [id number] Neetu Pratt [id number] Neetu Pratt 05/31/2017 1 [place]AD [place]ANTAGE - [place]PO) [id number] Neetu Aponte Pratt [id number] Neetu Aponte Pratt 07/11/2017 1 [place] [id number] Neetu Pratt [id number] Neetu Pratt Notes Date Note Type Note Provider Name and Address Organization Details Recorded Time 05/29/2017 text/html Presents with chronic right heel pain. Says is daily, moderate, frequent, throbbing and stabbing. Says is worse with bearing weight and doing stretching exercises. Says not relieved by medications, shoe inserts, stretching program, nightly ice packs. Says interferes with work and ability to attempt walking program for weight loss. Denies redness, bruising, numbness, coolness to foot. Describes similar symptoms in left heel that required surgery to relieve symptoms. Says has been unable to quit smoking despite several attempts. I provider her surgical care in [place] for her left heel. Today's Patient History for First Visit or New Problem Form has been reviewed, signed, and dated. This form is being relied upon for today's evaluation and management. John Doty MD [address] [place], [address], [facility] 05/30/2017 19:57:12 06/22/2017 text/html On 06/18/17 had plantar fascial release and heel spur resection. Says pain well controlled with minimal medication. Denies numbness or coolness to toes, calf pain, fever, chills. Reports compliance with elevation, crutches, cast care. Today's Established Patient Visit form has been reviewed, signed, and dated. This information is relied upon for today's evaluation and management. Today the patient's most recent documentation of medical, surgical, family, and social histories, as well as most recent 14 system ROS documentation has been reviewed and relied upon in treatment planning. Any changes have been noted. John Doty MD [address], [place], [address], [facility] 06/22/2017 10:50:32 07/04/2017 text/html On 06/18/17 had plantar fascial release and heel spur resection. Says pain well controlled with minimal medication. Denies numbness or coolness to toes, calf pain, fever, chills. Reports compliance with elevation and crutches but reports non compliance with use of cast walker boot. Today's Established Patient Visit form has been reviewed, signed, and dated. This information is relied upon for today's evaluation and management. Today the patient's most recent documentation of medical, surgical, family, and social histories, as well as most recent 14 system ROS documentation has been reviewed and relied upon in treatment planning. Any changes have been noted. John Doty MD [address], [place], [address], [facility] 07/04/2017 20:01:48 09/26/2018 text/html Presents with cc of about a month of new right knee pain. Describes knee locking up once at home when trying to get out of recliner. Describes additional stumble and fall but not directly onto front of knee. Says pain is daily, mild to rarely moderate stabbing pain. Says is worse with prolonged walking or standing. Denies giving way, warmth, redness, bruising, swelling. Describes sensation of something pinching inside knee. Denies groin pain or calf pain. Denies numbness or coolness to foot. Says has no pain lying down and says ice to knee in the evenings helps. Says psoriatic arthritis pain at baseline as are skin lesions. Reports some viral URIs this winter but nothing significant. Denies dysuria. Denies nail or dental issues. Says scheduled for cataract surgery in early November. Today's Patient History for First Visit or New Problem Form has been reviewed, signed, and dated. This form is being relied upon for today's evaluation and management. John Doty MD [address] [facility] [place], [address], [facility] 09/26/2018 16:01:49 OBGyn Episode No OBEpisode recorded.
--- OUTSIDE RECORDS SUMMARY | 2024-11-25 21:48 | XMS_ITS | Encounter Summary ---
Author Organization [employer] ([place], [place], [place], [place]) Address [address] [place] [address] Care Team Providers Care Brazing Furnace Operator Name Role Phone Salima Gonzáles Primary Care Provider [phone] Encounter Details Date Type Department Care Team (Late st Contact Info) Description 10/03/2020 Transcribed Document [facility] [place] [address] [place] [address] ProviderQuincy MD [address] [place], [place] [address] Social History Tobacco Use Types Packs/Day Years [...] 10/03/2020 19:18 EDT by Tereza Carrera Patient Insurance Claims Adjuster Shira Phone Call for Consults Consult Phone Call/Page Attempt : First call Consult Reason : obstructing stone Physician Requesting Consult : TIM MCCORMICK, DO-INT Physician Requested for Consult : DILLON HOFFMANN MD Provider Team Notified Name : Urology Physician Covering for Consult : ANNABEL ZAMBRANO MD-URO Date and Time Call Returned : 10/04/2020 9:51 EDT Tereza Carrera Patient Insurance Claims Adjuster I - 10/04/2020 9:48 EDT documented in this encounter Plan of Treatment Not on file documented as of this encounter Visit Diagnoses Not on filedocumented in this encounter Care Teams Brazing Furnace Operator Relationship Specialty Start Date End Date Salima Gonzáles DO 8 [facility] [address] [place] [address] PCP - General Family Medicine 02/09/23 documented as of this encounter
--- OUTSIDE RECORDS SUMMARY | 2024-11-25 21:48 | XMS_ITS | Encounter Summary ---
Author Organization [employer] ([place], [place], [place], [place]) Address [address] [place] [address] Care Team Providers Care Mash Preparatory Operator Name Role Phone Eliecer Salima Tate SWANN Primary Care Provider [phone] Encounter Details Date Type Department Care Team (Late st Contact Info) Description 10/12/2020 Transcribed Document [facility] [place] [address] [place] [address] ProviderQuincy MD [address] [place], [place] [address] Social History Tobacco Use Types Packs/Day Years [...] Policy Numbers : Insurance 1 Health Plan: [facility] MEDICARE REPL Policy Number: [id number] Authorization Number: Insurance Primary Name : [employer] MEDICARE REPL Policy Number: [id number] Authorization Status-Primary : Awaiting callback Reference Number-Primary : [id number] Authorized Service Begin Date-Primary : 10/03/2020 EDT Authorization Comments-Primary : Yeison Stearns remains pending Historical Authorization Comments-Primary : Comment 1: Faxed dc summary via [employer] (PING HOFFMANN RN 10/11/2020 12:12) Comment 2: Remains pending per Availity (PING HOFFMANN RN 10/11/2020 12:11) Comment 3: Email sent to madelyn (PING HOFFMANN RN 10/09/2020 15:11) Comment 4: Clinicals faxed via [employer] for IP approval (DEISY LIRA RN 10/05/2020 14:13) Comment 5: Clinicals submitted via [employer] for IP approval (DEISY LIRA RN 10/04/2020 08:24) PING HOFFMANN RN - 10/12/2020 12:06 EDT documented in this encounter Plan of Treatment Not on file documented as of this encounter Visit Diagnoses Not on filedocumented in this encounter Care Teams Mash Preparatory Operator Relationship Specialty Start Date End Date Salima Gonzáles, [address] [place] [address] PCP - General Family Medicine 02/09/23 documented as of this encounter
--- OUTSIDE RECORDS SUMMARY | 2024-11-25 21:48 | XMS_ITS | Encounter Summary ---
Author Organization [employer] ([place], [place], [place], [place]) Address [address] [place] [address] Care Team Providers Care Robotic Welder Name Role Phone Salima Gonzáles Primary Care Provider [phone] Encounter Details Date Type Department Care Team (Late st Contact Info) Description 10/08/2019 Transcribed Document [facility] [place] [address] [place] [address] ProviderQuincy MD [address] [place], [place] [address] Social History Tobacco Use Types Packs/Day Years [...] MD - 10/08/2019 9:47 AM CDT [facility] PACU Summary Primary Physician: WARREN MANRIQUE MD Finalized Date/Time: 10/08/19 10:47:05 Pt. Name: AMBIKA PIERRE/Sex: 1965 Female Med Rec #: [id number] Physician: WARREN MANRIQUE MD Financial #: [id number] Pt. Type: O Room/Bed: / Admit/Disch: 10/08/19 08:47:00 - Institution: [facility] PACU Case Times Entry 1 In PACU I 10/08/19 10:09:00 Ready for PACU 10/08/19 10:42:00 Discharge Discharge from PACU 10/08/19 10:45:00 I Last Modified By: Yasmine Al RN 10/08/19 10:43:05 [facility] Endo PACU Case Times Audit 10/08/19 10:45:09 Squad Boss: [id number] Modifier: [id number] <+> 1 Discharge from PACU I Finalized By: Yasmine Al RN Document Signatures Signed By: Yasmine Al RN 10/08/19 10:47 Electronically signed by [place] [facility] Conversion Chronometer Repairer Cerner at 08/23/2022 10:59 AM CDT documented in this encounter Plan of Treatment Not on file documented as of this encounter Visit Diagnoses Not on filedocumented in this encounter Care Teams Robotic Welder Relationship Specialty Start Date End Date Salima Gonzáels, 8 [facility] [address] [place] [address] PCP - General Family Medicine 02/09/23 documented as of this encounter
--- OUTSIDE RECORDS SUMMARY | 2024-11-25 21:48 | XMS_ITS | Encounter Summary ---
Author Organization [employer] ([place], [place], [place], [place]) Address [address] [place] [address] Care Team Providers Care Pond Tender Name Role Phone Salima Gonzáles Primary Care Provider [phone] Encounter Details Date Type Department Care Team (Late st Contact Info) Description 10/03/2020 Transcribed Document [facility] [place] [address] [place] [address] ProviderQuincy MD [address] [place], [place] [id number] Social History Tobacco Use Types Packs/Day Years Used Date Smoking Tobacco: Never Assessed Comments Unknown Sex and Gender Information Value Date Recorded Sex Assigned at Not on file Legal Sex Female 2:54 PM CDT Gender Identity Not on file Sexual Orientation Not on file documented as of this encounter Miscellaneous Notes * [employer]ner Conversion Note - Quincy Ktae MD - 10/03/2020 7:04 PM CDT Pain [...] on filedocumented in this encounter Care Teams Pond Tender Relationship Specialty Start Date End Date Salima Gonzáles DO [address] [address] PCP - General Family Medicine 02/09/23 documented as of this encounter
--- OUTSIDE RECORDS SUMMARY | 2024-11-25 21:48 | XMS_ITS | Encounter Summary ---
Author Organization [employer] ([place], [place], [place], [place]) Address [address] [place] [address] Care Team Providers Care Tankerman Name Role Phone Anujlizbet Salima Tate SWANN Primary Care Provider [phone] Encounter Details Date Type Department Care Team (Late st Contact Info) Description 10/08/2019 Transcribed Document [facility] [place] [address] [place] [address] ProviderQuincy MD 123 [place] [address] Social History Tobacco Use Types Packs/Day Years [...] *Surgeon(s) Primary Surgeon WARREN MANRIQUE MD (Surgeon/Proceduralist, [facility]) *Estimated Blood Loss Minimal. The colon prep [...] 10/08/19 09:53:00 (10/08/19 10:02:18) Electronically signed by [place] [facility] Conversion Telephone Plant Power Operator Cerner at 08/23/2022 11:05 AM CDT documented in this encounter Plan of Treatment Not on file documented as of this encounter Visit Diagnoses Not on filedocumented in this encounter Care Teams Tankerman Relationship Specialty Start Date End Date Salima Gonzáles, [address] [address] PCP - General Family Medicine 02/09/23 documented as of this encounter
--- OUTSIDE RECORDS SUMMARY | 2024-11-25 21:48 | XMS_ITS | Encounter Summary ---
Author Organization [employer] ([place], [place], [place], [place]) Address [address] [place] [address] Care Team Providers Care Director Of Scout Work Name Role Phone Anujlizbet Salima Tate SWANN Primary Care Provider [phone] Encounter Details Date Type Department Care Team (Late st Contact Info) Description 10/13/2020 Transcribed Document [facility] [place] [address] [place] [address] ProviderQuincy MD [address] [place], [place] [address] Social History Tobacco Use Types Packs/Day Years [...] On: 10/13/2020 15:02 EDT by Katia Pratt, Commercial Horticulture Instructor Primary Insurance Authorization Authorization and Policy Numbers : Insurance 1 Health Plan: [facility] MEDICARE REPL Policy Number: [id number] Authorization Number: Insurance Primary Name : [employer] MEDICARE REPL Policy Number: [id number] Authorization Status-Primary : Denied Auth/Referral Contact Name-Primary : DC+ Reference Number-Primary : [id number] Authorized Service Begin Date-Primary : 10/03/2020 EDT Authorization Comments-Primary : Discharge date and summary faxed. Historical Authorization Comments-Primary : Comment 1: Email to David/Mary/MOSHE (JUSTEN HARTLEY, Rn-Utilization Review 10/13/2020 10:20) Comment 2: Rec fax from Sara 10/12/20 States admission has been denied. Fax to Jacque Tabor (TEMI LAMBERT, Cdl Truck Driver 10/12/2020 14:42) Comment 3: Per Jinny remains [...] 10/05/2020 14:13) Comment 8: Clinicals submitted via [employer] for IP approval (DEISY LIRA RN 10/04/2020 08:24) Katia Pratt, Commercial Horticulture Instructor - 10/13/2020 15:02 EDT documented in this encounter Plan of Treatment Not on file documented as of this encounter Visit Diagnoses Not on filedocumented in this encounter Care Teams Director Of Scout Work Relationship Specialty Start Date End Date Salima Gonzáles, 8 [facility] [address] [place] [address] PCP - General Family Medicine 02/09/23 documented as of this encounter
--- OUTSIDE RECORDS SUMMARY | 2024-11-25 21:48 | XMS_ITS | Encounter Summary ---
Author Organization [employer] ([place], [place], [place], [place]) Address [address] [place] [address] Care Team Providers Care Staff Rn Name Role Phone Eliecer Salima Tate SWANN Primary Care Provider [phone] Encounter Details Date Type Department Care Team (Late st Contact Info) Description 10/23/2020 Transcribed Document [facility] [place] [address] [place] [address] ProviderQuincy MD [address] [place], [place] [address] Social History Tobacco Use Types Packs/Day Years [...] [facility] Policy Number: [id number] Authorization Number: Insurance Primary Name : [employer] MEDICARE REPL Policy Number: [id number] Authorization Status-Primary : Denied Auth/Referral Contact Name-Primary : DC+ Reference Number-Primary : [id number] Authorized Service Begin Date-Primary : 10/03/2020 EDT Authorization Comments-Primary : Yeison coello to bill under part b. emailed to billing. Historical Authorization Comments-Primary : Comment 1: Discharge date and summary faxed. (Katia Pratt, Guide Changer 10/13/2020 15:02) Comment 2: Email to David/Mary/MOSHE (JUSTEN HARTLEY Rn-Utilization Review 10/13/2020 10:20) Comment 3: Rec fax from [place] 10/12/20 States admission has been denied. Fax to Jacque Tabor (TEMI LAMBERT, Head Wrestling Coach 10/12/2020 14:42) Comment 4: Per Jinny remains pending (JACQUE HOFFMANN RN 10/12/2020 12:06) Comment 5: Faxed dc summary via [employer] (JACQUE HOFFMANN RN 10/11/2020 12:12) Comment 6: Remains pending per Availity (JACQUE HOFFMANN RN 10/11/2020 12:11) Comment 7: Email sent to jinny (JACQUE HOFFMANN RN 10/09/2020 15:11) Comment 8: Clinicals faxed via [employer] for IP approval (DEISY LIRA RN 10/05/2020 14:13) Comment 9: Clinicals submitted via [employer] for IP approval (DEISY LIRA RN 10/04/2020 08:24) JACQUE HOFFMANN RN - 10/23/2020 12:34 EDT documented in this encounter Plan of Treatment Not on file documented as of this encounter Visit Diagnoses Not on filedocumented in this encounter Care Teams Staff Rn Relationship Specialty Start Date End Date Salima Gonzáles, DO [address] [place] [address] PCP - General Family Medicine 02/09/23 documented as of this encounter
--- OUTSIDE RECORDS SUMMARY | 2024-11-25 21:48 | XMS_ITS | Encounter Summary ---
Author Organization [employer] ([place], [place], [place], [place]) Address [address] [place] [address] Care Team Providers Care Piano Instructor Name Role Phone Salima Gonzáles Primary Care Provider [phone] Encounter Details Date Type Department Care Team (Late st Contact Info) Description 10/03/2020 Transcribed Document [facility] [place] [address] [place] [address] ProviderQuincy MD [address] [place], [place] [address] Social History Tobacco Use Types Packs/Day Years Used Date Smoking Tobacco: Never Assessed Comments Unknown Sex and Gender Information Value Date Recorded Sex Assigned at Not on file Legal Sex Female 2:54 PM CDT Gender Identity Not on file Sexual Orientation Not on file documented as of this encounter Miscellaneous Notes * [employer]ner Conversion Note - Quincy Kate MD - 10/03/2020 6:06 PM CDT Admission History, [...] #2 Relationship : father Primary Language : Cape Verdean Communication Barrier : None Assistant Inventory Manager Needed : No Hoa Coleman RN - [...] Level : 46 or > High Risk [place] Fall Interventions : Adequate lighting, Assistive devices [...] Updated: 08/25/2014 15:15:57 EDT by KENY DIAZ, DIANE) Alcohol Use History Yes. Use in Last 12 Months: No. Alcohol Use Frequency Rarely. (Last Updated: 10/08/2019 09:19:47 EDT by Whitney Huynh Rn) Substance Abuse: Drug Use Hx: No. (Last Updated: 10/08/2019 09:19:55 EDT by Whitney Huynh Rn) Height and Weight, Clinical Dosing Height Source : Stated Height Entry Format : [place] Height, Feet : 5 ft(Converted to: 152 cm, 60 Inch) Height, Inches : 1 Inch(Converted to: 0 ft 1 Inch, 2.54 cm) Clinical Height : 154.94 cm Weight Source : Bed scale Weight Entry Format : [place] Clinical Dosing Weight : 118.18 kg Weight, Pounds : 260 lb Body Surface Area (BSA) : 2.11 m2 Body Mass Index : 49.2 kg/m2 (>HHI) [place] Body Weight : 47 kg Hoa Coleman [...] Chicken pox/Shingles, Influenza Tuberculosis Symptoms : None oHa Coleman RN - 10/04/2020 13:17 EDT Tetanus [...] Hoa Coleman RN - 10/04/2020 13:17 EDT [place] Suicide Severity Rating Scale (C-SSRS) CSSRS Past [...] Hoa Coleman RN - 10/04/2020 13:17 EDT Electronically signed by Nuzhat Barahona Conversion Samples And Repairs Preparer Cerner at 08/23/2022 11:07 AM CDT documented in this encounter Plan of Treatment Not on file documented as of this encounter Visit Diagnoses Not on filedocumented in this encounter Care Teams Piano Instructor Relationship Specialty Start Date End Date Salima Gonzáles, [address] [address] PCP - General Family Medicine 02/09/23 documented as of this encounter
--- OUTSIDE RECORDS SUMMARY | 2024-11-25 21:48 | XMS_ITS | Encounter Summary ---
Author Organization [employer] ([place], [place], [place], [place]) Address [address] [place] [address] Care Team Providers Care Hydroelectric Machinery Mechanic Helper Name Role Phone Salima Mi DO Primary Care Provider [phone] Encounter Details Date Type Department Care Team (Late st Contact Info) Description 10/03/2020 Transcribed Document [facility] [place] [address] [place] [address] ProviderQuincy MD [address] [place], [place] [address] Social History Tobacco Use Types Packs/Day Years [...] : 1965 Primary Care Provider SALIMA MI DO-EDELMIRA History of Present Illness Ms. Aponte is a 54-year-old female with oee-soztwym-imgncwyaf diabetes, asthma and COPD with continued tobacco use, history of kidney stones, obesity. She was transferred to [facility] from [facility] on 10/03 for hydronephrosis and obstructing [...] needed Consult urology, n.p.o. after midnight Tamsulosin #Gdn-kehqhbx-fkdgdatdb diabetes Hold home medications Cover with SSI [...] on filedocumented in this encounter Care Teams Hydroelectric Machinery Mechanic Helper Relationship Specialty Start Date End Date Salima Mi, 8 [facility] [address] [place] [address] PCP - General Family Medicine 02/09/23 documented as of this encounter
--- OUTSIDE RECORDS SUMMARY | 2024-11-25 21:48 | XMS_ITS | Encounter Summary ---
Author Organization [employer] ([place], [place], [place], [place]) Address [address] [place] [address] Care Team Providers Care Lead Sharepoint Developer Name Role Phone Aunjlizbet Salima Tate SWANN Primary Care Provider [phone] Encounter Details Date Type Department Care Team (Late st Contact Info) Description 10/03/2020 Transcribed Document [facility] [place] [address] [place] [address] ProviderQuincy MD [address] [place], [place] [address] Social History Tobacco Use Types Packs/Day Years Used Date Smoking Tobacco: Never Assessed Comments Unknown Sex and Gender Information Value Date Recorded Sex Assigned at Not on file Legal Sex Female 2:54 PM CDT Gender Identity Not on file Sexual Orientation Not on file documented as of this encounter Miscellaneous Notes * [employer]ner Conversion Note - Quincy Kate MD - 10/03/2020 6:30 PM CDT Admission History, [...] #2 Relationship : father Primary Language : Montserratian Communication Barrier : None Liquid Hydrogen Plant Operator Needed : No Cassie Colon RN - [...] Scale Risk Level : 25-45 Medium Risk [place] Fall Interventions : Adequate lighting, Assistive devices [...] Source : Stated Height Entry Format : [place] Height, Feet : 5 ft(Converted to: 152 cm, 60 Inch) Height, Inches : 1 Inch(Converted to: 0 ft 1 Inch, 2.54 cm) Clinical Height : 154.94 cm Weight Source : Bed scale Weight Entry Format : [place] Clinical Dosing Weight : 118.18 kg Weight, Pounds : 260 lb Body Surface Area (BSA) : 2.11 m2 Body Mass Index : 49.2 kg/m2 (>HHI) [place] Body Weight : 47 kg Cassie Colon [...] Cassie Colon RN - 10/03/2020 18:30 EDT [place] Suicide Severity Rating Scale (C-SSRS) CSSRS Past [...] Cassie Colon RN - 10/03/2020 18:30 EDT documented in this encounter Plan of Treatment Not on file documented as of this encounter Visit Diagnoses Not on filedocumented in this encounter Care Teams Lead Sharepoint Developer Relationship Specialty Start Date End Date Salima Gonzáles DO [address] [address] PCP - General Family Medicine 02/09/23 documented as of this encounter
--- OUTSIDE RECORDS SUMMARY | 2024-11-25 21:48 | XMS_ITS | Encounter Summary ---
Author Organization [employer] ([place], [place], [place], [place]) Address [address] [place] [address] Care Team Providers Care Commercial Illustrator Name Role Phone Eliecer Salima Tate SWANN Primary Care Provider [phone] Encounter Details Date Type Department Care Team (Late st Contact Info) Description 10/04/2020 Transcribed Document [facility] [place] [address] [place] [address] ProviderQuincy MD 123 [place], [place] [address] Social History Tobacco Use Types Packs/Day Years [...] needed N.p.o. currently, urology consultation pending Tamsulosin #Rll-igsjkhx-dzljyvxen diabetes Hold home medications Cover with SSI [...] Lymph # 2.58 x10(3)/uL 10/03/2020 19:07 EDT [place] % 8.5 % 10/04/2020 06:54 EDT [place] % 7.7 % 10/03/2020 19:07 EDT [place] # 0.47 K/uL 10/04/2020 06:54 EDT [place] # 0.56 K/uL 10/03/2020 19:07 EDT [place] [...] 1.0 10/04/2020 06:54 EDT Electronically signed by [place], [facility] Conversion Rn Hemodialysis Charge Cerner at 08/23/2022 11:00 AM CDT documented in this encounter Plan of Treatment Not on file documented as of this encounter Visit Diagnoses Not on filedocumented in this encounter Care Teams Commercial Illustrator Relationship Specialty Start Date End Date Salima Gonzáles DO [address] [address] PCP - General Family Medicine 02/09/23 documented as of this encounter
--- OUTSIDE RECORDS SUMMARY | 2024-11-25 21:48 | XMS_ITS | Encounter Summary ---
Author Organization [employer] ([place], [place], [place], [place]) Address [address] [place] [address] Care Team Providers Care Chief Sales Officer Name Role Phone Eliecer Salima Tate SWANN Primary Care Provider [phone] Encounter Details Date Type Department Care Team (Late st Contact Info) Description 10/12/2020 Transcribed Document [facility] [place] Family [place] [address] [place] [address] ProviderQuincy MD [address] [place], [place] [address] Social History Tobacco Use Types Packs/Day Years [...] On: 10/12/2020 14:42 EDT by TEMI LAMBERT, Anesthesia Assistant Primary Insurance Authorization Authorization and Policy Numbers : Insurance 1 Health Plan: [facility] MEDICARE REPL Policy Number: [id number] Authorization Number: Insurance Primary Name : [employer]M MEDICARE REPL Policy Number: [id number] Authorization Status-Primary : Denied Reference Number-Primary : [id number] Authorized Service Begin Date-Primary : 10/03/2020 EDT Authorization Comments-Primary : Rec fax from [place] 10/12/20 States admission has been denied. Fax to Ping Tabor Historical Authorization Comments-Primary : Comment 1: Per Madelyn remains pending (PING HOFFMANN RN 10/12/2020 12:06) Comment 2: Faxed dc summary via [employer] (PING HOFFMANN RN 10/11/2020 12:12) Comment 3: Remains pending per Availity (PING HOFFMANN RN 10/11/2020 12:11) Comment 4: Email sent to madelyn (PING HOFFMANN RN 10/09/2020 15:11) Comment 5: Clinicals faxed via [employer] for IP approval (DEISY LIRA RN 10/05/2020 14:13) Comment 6: Clinicals submitted via [employer] for IP approval (DEISY LIRA RN 10/04/2020 08:24) TEMI LAMBERT, Anesthesia Assistant - 10/12/2020 14:42 EDT Electronically signed by [place] [facility] Conversion Unix Developer Cerner at 08/23/2022 10:49 AM CDT documented in this encounter Plan of Treatment Not on file documented as of this encounter Visit Diagnoses Not on filedocumented in this encounter Care Teams Chief Sales Officer Relationship Specialty Start Date End Date Salima Gonzáles, [address] [place] [address] PCP - General Family Medicine 02/09/23 documented as of this encounter
--- OUTSIDE RECORDS SUMMARY | 2024-11-25 21:48 | XMS_ITS | Encounter Summary ---
Author Organization [employer] ([place], [place], [place], [place]) Address [address] [place] [address] Care Team Providers Care Rider Ticket Worker Name Role Phone Eliecer Salima Tate SWANN Primary Care Provider [phone] Encounter Details Date Type Department Care Team (Late st Contact Info) Description 10/03/2020 Transcribed Document [facility] [place] [address] [place] [address] ProviderQuincy MD [address] [place], [place] [address] Social History Tobacco Use Types Packs/Day Years [...] - 10/04/2020 13:56 EDT Electronically signed by Nuzhat Barahona Conversion Wildfire Prevention Specialist Cerner at 08/23/2022 11:01 AM CDT documented in this encounter Plan of Treatment Not on file documented as of this encounter Visit Diagnoses Not on filedocumented in this encounter Care Teams Rider Ticket Worker Relationship Specialty Start Date End Date Salima Gonzáles, DO [address] [address] PCP - General Family Medicine 02/09/23 documented as of this encounter
--- OUTSIDE RECORDS SUMMARY | 2024-11-25 21:48 | XMS_ITS | Clinical Summary ---
Author Organization [employer] ([place], [place], [place], [place]) Address [address] [place] [address] Care Team Providers Care Warehouse Selector Name Role Phone Salima Gonzáles DO Primary Care Provider [phone] Social History Tobacco Use Types Packs/Day Years [...] 06/09/2020, Additional history exists Influenza Vaccine (#1) 2025 01/27/2022, 2019 DTAP/TDAP/TD VACCINES (2 - T d or Tdap) 01/25/2028 01/24/2018 Pneumococcal 50+ years Completed 01/27/2022, 2018 [facility] H[facility] MAP Care Teams Warehouse Selector Relationship Specialty Start Date End Date Salima Gonzáles, 8 [facility] [address] [place] [address] PCP - General Family Medicine 02/09/23
--- OUTSIDE RECORDS SUMMARY | 2024-11-25 21:48 | XMS_ITS | Encounter Summary ---
Author Organization [employer] ([place], [place], [place], [place]) Address [address] [place] [address] Care Team Providers Care Virtualization Consultant Name Role Phone Eliecer Salima Tate SWANN Primary Care Provider [phone] Encounter Details Date Type Department Care Team (Late st Contact Info) Description 10/08/2019 Transcribed Document [facility] [place] [facility] [address] [place] [address] ProviderQuincy MD [address], [place] [id number] Social History Tobacco Use Types Packs/Day Years [...] Source : Stated Height Entry Format : Auberry Height, Feet : 5 ft(Converted to: 152 cm, 60 Inch) Height, Inches : 1 Inch(Converted to: 0 ft 1 Inch, 2.54 cm) Clinical Height : 154.94 cm Weight Source : Standing scale Weight Entry Format : Auberry Clinical Dosing Weight : 118.55 kg Weight, Pounds : 260.8 lb Body Surface Area (BSA) : 2.12 m2 Body Mass Index : 49.4 kg/m2 (>HHI) [place] Body Weight : 47 kg Whitney Huynh [...] Whitney Huynh Rn - 10/08/2019 9:18 EDT [place] Suicide Severity Rating Scale (C-SSRS) CSSRS Past [...] Name/Contact Info Physician Notified Adm : Salima oGnzáles Emergency Contact #1 : Sandra De Anda Emergency Contact #1 Emergency Contact #1 Relationship : daughter Emergency Contact #2 : na Emergency Contact #2 Phone Number : na Emergency Contact #2 Relationship : na Primary Language : [place] Islander Communication Barrier : None Whitney Huynh Rn [...] Scale Risk Level : 0-24 Low Risk [place] Fall Interventions : Adequate lighting, Call device [...] on filedocumented in this encounter Care Teams Virtualization Consultant Relationship Specialty Start Date End Date Salima Gonzáles DO [address] [facility] [address] [place] [address] PCP - General Family Medicine 02/09/23 documented as of this encounter
--- OUTSIDE RECORDS SUMMARY | 2024-11-25 21:48 | XMS_ITS | Encounter Summary ---
Author Organization [employer] ([place], [place], [place], [place]) Address [address] [place] [address] Care Team Providers Care Client Relationship Manager Name Role Phone Anujlizbet Salima Tate SWANN Primary Care Provider [phone] Encounter Details Date Type Department Care Team (Late st Contact Info) Description 10/13/2020 Transcribed Document [facility] [place] [address] [place] [address] ProviderQuincy MD [address] [place], [place] [id number] Social History Tobacco Use Types Packs/Day Years [...] : Insurance 1 Health Plan: [facility] MEDICARE REPL Policy Number: [id number] Authorization Number: Insurance Primary Name : SARA MEDICARE REPL Policy Number: [id number] Authorization Status-Primary : Denied Reference Number-Primary : [id number] Authorized Service Begin Date-Primary : 10/03/2020 EDT Authorization Comments-Primary : Email to Hemalatha/MOSHE Historical Authorization Comments-Primary : Comment 1: Rec fax from Sara 10/12/20 States admission has been denied. Fax to Jacque Tabor (TEMI LAMBERT, Retail Route Supervisor 10/12/2020 14:42) Comment 2: Per Jinny remains pending (JACQUE HOFFMANN RN 10/12/2020 12:06) Comment 3: Faxed dc summary via [employer] (JACQUE HOFFMANN RN 10/11/2020 12:12) Comment 4: Remains pending per [employer] (JACQUE HOFFMANN RN 10/11/2020 12:11) Comment 5: Email sent to jinny (JACQUE HOFFMANN RN 10/09/2020 15:11) Comment 6: Clinicals faxed via [employer] for IP approval (DEISY LIRA RN 10/05/2020 14:13) Comment 7: Clinicals submitted via [employer] for IP approval (DEISY LIRA RN 10/04/2020 08:24) JUSTEN HARTLEY Rn-Utilization Review - 10/13/2020 10:20 EDT documented in this encounter Plan of Treatment Not on file documented as of this encounter Visit Diagnoses Not on filedocumented in this encounter Care Teams Client Relationship Manager Relationship Specialty Start Date End Date Salima Gonzáles DO [address] [facility] [address] [place] [address] PCP - General Family Medicine 02/09/23 documented as of this encounter
[2024-11-25 21:51] VITALS: BP 99/72; PULSE 83; RESP 18; TEMP 36.2; O2SAT 99; BMI 45.3
--- NOTE | 2024-11-25 21:54 | HMH.EDGENADL ---
Discharge Plan Disposition Patient Disposition: Admitted Clinical Impressions Clinical Impression: MIHAI (acute kidney injury), UTI (urinary tract infection) Discharge ED Provider: Dahlia Bright General Adult HPI General Chief complaint: Urogenital-Female Stated complaint: abdominal pain,back pain,nausea Time Seen by Provider: 11/25/24 21:54 History of Present Illness HPI narrative: Patient is a 58-year-old female with a past medical history of bowel obstruction, gastric bypass, previous kidney stones who presented to the emergency department with bilateral lower abdominal pain, urinary frequency. Patient states she has been having abdominal pain that started today pain is constant but intermittently gets worse. Patient denies any alleviating symptoms and nothing seems to make it worse. Patient's pain is a dull sharp pain. Patient reports nausea but no vomiting. Patient denies any fevers. Patient denies any chest pain or shortness of breath. Patient denies any flank pain. Related Data Home Medications ?Medication ?Instructions ?Recorded ?Confirmed bupropion HCl 150 mg tablet,12 hr 150 mg PO BID 08/11/18 11/26/24 sustained-release fluoxetine 40 mg capsule 40 mg PO BID 08/11/18 11/26/24 levothyroxine 125 mcg tablet 125 mcg PO AM 08/11/18 11/26/24 pregabalin 150 mg capsule 150 mg PO BID 08/11/18 11/26/24 simvastatin 5 mg tablet 5 mg PO HS 08/11/18 11/26/24 loratadine 10 mg tablet 10 mg PO DAILY 01/08/20 11/26/24 montelukast 10 mg tablet 10 mg PO PM 10/10/20 11/26/24 risankizumab-rzaa 150 mg/mL 150 mg SQ Q84D 10/28/21 11/26/24 subcutaneous pen injector fluticasone propionate 50 1 - 2 spray intranasal DAILY 02/07/24 11/26/24 mcg/actuation nasal spray,suspension galcanezumab-gnlm 120 mg/mL 120 mg SQ MONTHLY 02/07/24 11/26/24 subcutaneous pen injector (Emgality Pen) rimegepant 75 mg disintegrating 75 mg PO DAILYP PRN Migraine 02/07/24 11/26/24 tablet (Nurtec ODT) Headache albuterol sulfate 90 mcg/actuation 2 inh inhalation Q6HP PRN 04/07/24 11/26/24 aerosol inhaler Shortness Of Breath Or Wheezing flash glucose sensor (FreeStyle 04/07/24 11/26/24 Niels 2 Sensor kit) furosemide 20 mg tablet 20 mg PO DAILYP PRN Edema 04/07/24 11/26/24 linaclotide 72 mcg capsule 72 mcg PO NEEDED PRN 04/07/24 11/26/24 (Linzess) Constipation pantoprazole 20 mg tablet,delayed 20 mg PO BID 04/07/24 11/26/24 release sitagliptin phosphate 50 mg tablet 50 mg PO DAILY 04/07/24 11/26/24 (Januvia) phentermine 37.5 mg tablet 37.5 mg PO DAILY 11/26/24 11/26/24 tirzepatide 2.5 mg/0.5 mL 2.5 mg SQ WEEKLY 11/26/24 11/26/24 subcutaneous pen injector (Svetlana) Previous Rx's ?Medication ?Instructions ?Recorded fluticasone 100 mcg-salmeterol 50 1 inh inhalation BIDRT 30 days #60 04/07/24 mcg/dose blistr powdr for ea inhalation (Advair Diskus) Allergies Allergy/AdvReac Type Severity Reaction Status Date / Time cefdinir Allergy Severe Difficulty Verified 09/29/24 09:33 Breathing morphine (MORPHINE) Allergy Intermediate HALLUCINATI Verified 09/29/24 09:33 ONS levofloxacin (From Levaquin) Allergy Unknown Difficulty Verified 09/29/24 09:33 Breathing PFSH PFSH Disclaimer: The information contained in this section may have been updated after the patient was seen, as this information can be updated by other users. Medical History (Updated 11/26/24 @ 00:54 by Whitney Howard RN) UTI (urinary tract infection) Acute kidney injury Hypokalemia Intractable abdominal pain Omental infarction NSIP (nonspecific interstitial pneumonitis) Fatty stool Bloating ILD (interstitial lung disease) Pyelonephritis Abdominal pain Strep sore throat Type 2 diabetes mellitus Colitis Chest pain Allergic rhinitis with postnasal drip Diabetes Acute viral syndrome Sinusitis Acute viral syndrome Conjunctivitis Hernia, internal Small bowel obstruction Primary osteoarthritis of both feet Posterior tibial tendinitis of left lower extremity BMI 45.0-49.9, adult Diarrhea Nausea and vomiting Abdominal pain Left femoral shaft fracture Left ureteral calculus Patient left without being seen Onychoincurvatum Nail dystrophy Arch pain of left foot Type 2 diabetes mellitus with diabetic neuropathy, without long-term current use of insulin Acquired equinus deformity of both feet Hydronephrosis Ureteral calculi Uncontrolled pain Hydronephrosis due to obstruction of ureter Kidney stone Bronchitis Left foot pain Complaint of pain of great toe Diabetic foot Pain of right heel UTI (urinary tract infection) Omental infarction History of femur fracture Ear noise/buzzing Hearing difficulty of both ears Urinary tract infection Kidney stone Migraine COPD (chronic obstructive pulmonary disease) Asthma Hyperlipidemia Anxiety Diabetes Hypertension Depression Surgical History History of gastric bypass History of knee replacement History of tubal ligation History of tonsillectomy History of hysterectomy (Unknown) History of cholecystectomy History of section Social History Smoking Status: Current every day smoker tobacco type: cigarettes packs per day: 0 and e-cigarettes smoking status stop date: Patient stated stopped 3 years ago how long ago did patient quit smoking: Stopped 3 years ago second hand exposure: No alcohol intake: never substance use type: denies use current occupational status: employed Travel in the last 8 weeks?: None household members: family housing: house current occupation: [employer] current occupational exposures/hazards: No caffeine: Yes Have you lived/traveled outside US in past 30 days?: No Contact w/someone who lives/traveled outside US past 30 days?: No Exposure to someone with infectious disease in past 14 days?: No Do you have a fever (greater than 100.4 F or 38 C)?: No Have you tested positive for COVID-19?: No Exposed to someone with COVID-19 in past 14 days?: No Do you have a sore throat?: No Do you have a cough?: No Do you have any weakness?: No Do you have any diarrhea?: No Are you experiencing any unusual bleeding?: No Do you have any muscle aches/pain?: No Do you have any abdominal pain?: Yes Are you experiencing loss of taste or smell?: No Other Medical History Have you received the Flu Vaccine for this season: No Have you received the Pneumonia Vaccine: No ROS Obtained: Yes All systems reviewed & no additional complaints except as documented and Yes Systems reviewed as appropriate & no additional complaints except as documented Physical Exam General General appearance: alert and in no apparent distress Head Head exam: atraumatic, normocephalic and normal inspection Eye Eye exam: Present normal appearance, PERRL and EOMI; Absent scleral icterus ENT ENT exam: Present normal exam and normal external ear exam Neck Neck exam: Present normal inspection and full ROM Chest Chest inspection: Present normal inspection and symmetric chest wall rise Respiratory Respiratory exam: Present normal lung sounds bilaterally; Absent respiratory distress or wheezes Cardiovascular Cardiovascular exam: Present regular rate, normal rhythm and normal heart sounds Abdominal Exam Abdominal exam: Present soft, distention and tenderness (RLQ and suprapubic, no CVA tenderness); Absent guarding or rebound Extremities Exam Extremities exam: Present normal inspection and full ROM Back Exam Back exam: Present normal inspection and full ROM Neurological Exam Neurological exam: Present alert and oriented X3 Psychiatric Psychiatric exam: Present normal affect and normal mood Skin Skin exam: Present warm and dry Medical Decision Making Medical Records Screening: Per USPSTF and CDC recommendations, given the prevalence of disease in our region, it is our hospital?s policy to screen for HIV and viral Hepatitis for all patients aged 18 and over and those with ongoing risk factors. Aurelio Inquiry Pt receiving controlled substance: No Vital Signs: 11/25/24 21:51 11/25/24 22:31 11/25/24 23:16 Temperature 97.1 F L Temperature Source Oral Pulse Rate 69 65 Pulse Rate [Right Brachial] 83 Respiratory Rate 18 14 Blood Pressure 140/95 H 115/70 Blood Pressure [Right Arm] 99/72 L Blood Pressure Mean [Right Arm] 81 Blood Pressure Source Blood Pressure Source [Right Arm] Automatic Cuff Blood Pressure Position Blood Pressure Position [Right Arm] Sitting 02 Sat by Pulse Oximetry 99 96 96 Oxygen Delivery Method Room Air 11/25/24 23:31 11/25/24 23:47 11/25/24 23:56 Temperature Temperature Source Pulse Rate 73 66 Pulse Rate [Right Brachial] Respiratory Rate Blood Pressure 118/63 101/85 L Blood Pressure [Right Arm] Blood Pressure Mean [Right Arm] Blood Pressure Source Blood Pressure Source [Right Arm] Blood Pressure Position Blood Pressure Position [Right Arm] 02 Sat by Pulse Oximetry 97 99 Oxygen Delivery Method Room Air 11/26/24 00:00 11/26/24 00:48 Temperature 97.1 F L Temperature Source Pulse Rate 59 L 61 Pulse Rate [Right Brachial] Respiratory Rate 18 Blood Pressure 108/65 L 104/68 L Blood Pressure [Right Arm] Blood Pressure Mean [Right Arm] Blood Pressure Source Automatic Cuff Blood Pressure Source [Right Arm] Blood Pressure Position Sitting Blood Pressure Position [Right Arm] 02 Sat by Pulse Oximetry 98 Oxygen Delivery Method Room Air Lab Data Lab results reviewed: Yes I reviewed the patient's lab results. Lab Results 11/25/24 21:43: Urine Color Yellow, Urine Appearance Clear, Urine pH 5.0, Ur Specific Perry >= 1.030, Urine Protein 1+ A, Urine Glucose (UA) Negative, Urine Ketones 1+, Urine Blood Negative, Urine Nitrate Negative, Urine Bilirubin Negative, Urine Urobilinogen 0.2, Ur Leukocyte Esterase 2+ A, Urine RBC None, Urine WBC Tntc, Ur Squamous Epith Cells 5-10, Urine Bacteria 1+ 11/25/24 21:58: WBC 15.1 H, RBC 4.48, Hgb 14.7, Hct 42.1, MCV 94.0, MCH 32.8 H, MCHC 34.9, RDW 15.7, Plt Count 366, MPV 10.1, Neut % (Auto) 64.8, Lymph % (Auto) 28.1, Pitt % (Auto) 5.2, Eos % (Auto) 0.5, Baso % (Auto) 0.5, Neut # (Auto) 9.8 H, Lymph # (Auto) 4.2, Pitt # (Auto) 0.8, Eos # (Auto) 0.1, Baso # (Auto) 0.1, Sodium 136, Potassium 4.3, Chloride 99, Carbon Dioxide 27, Anion Gap 14.3, BUN 36 H, Creatinine 2.40 H, Estimated Creat Clear 19, Estimated GFR 21 L, Est GFR ( Amer) 25 L, Glucose 90, Calcium 9.6, Total Bilirubin 1.1, AST 38 H, ALT 32, Alkaline Phosphatase 108, Total Protein 7.9 D, Albumin 4.6, Globulin 3.3 H, Albumin/Globulin Ratio 1.4, Lipase 221 11/27/24 06:11 11/27/24 06:11 Orders (Tests/Meds): ED MEDICATIONS Generic Name Dose Route Start Last Admin Trade Name Freq PRN Reason Stop Dose Admin Acetaminophen 650 mg 11/26/24 00:22 11/26/24 20:36 Acetaminophen 325mg Tab PO 12/26/24 00:21 650 mg Q4HP PRN Administration Fever or Mild Pain (1-3) Bupropion HCl 150 mg 11/27/24 09:00 11/27/24 08:15 Bupropion Hcl Sr 150mg Tab PO 12/27/24 08:59 150 mg BID SORAYA Administration Calcium Carbonate 500 mg 11/26/24 00:25 Calcium Carbonate 500mg Chewtab PO 12/26/24 00:24 QIDP PRN Heartburn Enoxaparin Sodium 40 mg 11/27/24 21:00 Enoxaparin 40mg/0.4ml Syringe SUBCUT 12/27/24 20:59 BID SORAYA Fluoxetine HCl 40 mg 11/27/24 09:00 11/27/24 08:15 Fluoxetine 20mg Capsule PO 12/27/24 08:59 40 mg BID SORAYA Administration Ampicillin Sodium/Sulbactam 100 mls @ 200 mls/hr 11/26/24 06:00 11/27/24 05:48 Sodium 3 gm/ Sodium Chloride IV 12/06/24 05:59 200 mls/hr Q6H SORAYA Administration Levothyroxine Sodium 125 mcg 11/27/24 07:00 11/27/24 08:15 Levothyroxine 125mcg (0.125mg) Tab PO 12/27/24 06:59 125 mcg AM SORAYA Administration Ondansetron HCl 4 mg 11/26/24 00:22 Ondansetron 4mg/2ml Vial IV 12/26/24 00:21 Q8HP PRN Nausea Pantoprazole Sodium 40 mg 11/27/24 09:00 11/27/24 08:14 Pantoprazole 40mg Tablet PO 12/27/24 08:59 40 mg BID SORAYA Administration Pregabalin 150 mg 11/27/24 09:00 11/27/24 08:16 Pregabalin 50mg Capsule PO 12/27/24 08:59 150 mg BID SORAYA Administration Fluticasone/Salmeterol 1 puff 11/27/24 09:00 11/27/24 08:59 Fluticasone/Salmeterol 100/50mcg Diskus IH 12/27/24 08:59 1 puff BIDRT SORAYA Administration Sitagliptin Phosphate 50 mg 11/27/24 09:00 11/27/24 08:15 Sitagliptin 50mg Tablet PO 12/27/24 08:59 50 mg DAILY SORAYA Administration Sodium Chloride 10 ml 11/26/24 00:22 Sodium Chloride 0.9% 10ml Flush Syringe IV 12/26/24 00:21 NEEDED PRN Maintain IV Site Sodium Chloride 10 ml 11/26/24 07:09 Sodium Chloride 0.9% 10ml Flush Syringe IV 12/26/24 07:08 NEEDED PRN Maintain IV Site Discontinued Medications Generic Name Dose Route Start Last Admin Trade Name Christiano PRN Reason Stop Dose Admin Belladonna Alkaloids 60 ml 11/26/24 00:14 11/26/24 00:25 Belladonna Alkaloids 60 Ml Ml PO 11/26/24 00:15 60 ml ONCE ONE Administration Calcium Carbonate 500 mg 11/26/24 00:14 11/26/24 00:25 Calcium Carbonate 500mg Chewtab PO 11/26/24 00:15 500 mg ONCE ONE Administration Dicyclomine HCl 20 mg 11/25/24 22:19 11/25/24 22:40 Dicyclomine 10mg Capsule PO 11/25/24 22:20 20 mg ONCE ONE Administration Enoxaparin Sodium 40 mg 11/26/24 09:00 Enoxaparin 40mg/0.4ml Syringe SUBCUT 12/26/24 08:59 DAILY SORAYA Enoxaparin Sodium 30 mg 11/26/24 09:00 11/27/24 08:14 Enoxaparin 30mg/0.3ml Syringe SUBCUT 12/26/24 08:59 30 mg DAILY SORAYA Administration Famotidine 20 mg 11/26/24 00:25 11/26/24 01:23 Famotidine 20mg Tablet PO 11/26/24 00:26 20 mg ONCE ONE Administration Sodium Chloride 1,000 mls @ 999 mls/hr 11/25/24 22:35 11/25/24 22:53 Sod Chlor 0.9% 1000ml Bag IV 11/25/24 23:35 999 mls/hr .Q1H1M ONE Administration Ampicillin Sodium/Sulbactam 100 mls @ 200 mls/hr 11/25/24 23:53 11/26/24 01:24 Sodium 3 gm/ Sodium Chloride IV 11/25/24 23:54 200 mls/hr ONCE ONE Administration Sodium Chloride 1,000 mls @ 250 mls/hr 11/26/24 00:30 11/26/24 20:39 Sod Chlor 0.9% 1000ml Bag IV 12/26/24 00:29 250 mls/hr .Q4H SORAYA Administration Iopamidol 75 ml 11/25/24 22:56 11/25/24 22:57 Iopamidol-370 (76%);100ml Bottle IV 11/25/24 22:57 75 ml ONCE ONE Administration Ketorolac Tromethamine 30 mg 11/25/24 22:19 11/25/24 22:40 Ketorolac 30mg/Ml Vial IV 11/25/24 22:20 30 mg ONCE ONE Administration Ondansetron HCl 4 mg 11/25/24 22:18 11/25/24 22:40 Ondansetron 4mg/2ml Vial IV 11/25/24 22:19 4 mg ONCE ONE Administration Oxycodone HCl 5 mg 11/25/24 23:31 11/25/24 23:45 Oxycodone 5mg Immediate Release Tablet PO 11/25/24 23:32 5 mg ONCE ONE Administration Pantoprazole Sodium 40 mg 11/26/24 00:25 11/26/24 20:36 Pantoprazole 40mg Tablet PO 12/26/24 00:24 40 mg HS SORAYA Administration Sodium Chloride 10 ml 11/25/24 22:56 11/25/24 22:57 Sodium Chloride 0.9% 10ml Syr (Rad Only) IV 12/25/24 22:55 10 ml NEEDED PRN Administration Maintain IV Site ORDERS Category Date Time Status CT abdomen pelvis w con Stat Cat Scan 11/25/24 22:18 Completed CBC w/Auto Diff [Complete Blood Count Auto Diff] Stat Lab 11/25/24 21:58 Completed CMP [Comprehensive Metabolic Panel] Stat Lab 11/25/24 21:58 Completed Lipase Stat Lab 11/25/24 21:58 Completed UA [Urinalysis and Microscopic] Stat Lab 11/25/24 21:43 Completed Urine Culture Stat Micro 11/25/24 21:43 Completed Medical Decision Narrative: Patient is a 58-year-old female with a past medical history of bowel obstruction, gastric bypass, kidney stones who presented to the emergency department with abdominal pain. On arrival, patient was hemodynamically stable with unremarkable vital signs. Differential includes but not limited to: Appendicitis, bowel obstruction, gastroenteritis, colitis, UTI, pyelonephritis, nephrolithiasis, amongst others. Patient had a leukocytosis of 15, hemoglobin was stable. Patient CMP was notable for creatinine of 2.4, CMP otherwise unremarkable. UA concerning for infection with leuk esterase, multiple white blood cells. Given patient's MIHAI, patient was given IV fluids. CT scan reviewed and interpreted by myself and showed no acute pathology. At this time given patient's MIHAI and urinary tract infection I felt the patient warranted admission. Patient was given IV Unasyn given her anaphylaxis to both Levaquin and cephalosporins. I discussed the case with hospital medicine and patient was ultimately admitted to their service for further evaluation workup. Critical Care Critical Care Time Critical Care Time: No
--- NOTE | 2024-11-25 22:18 | CT_ITS ---
PROCEDURE INFORMATION: Exam: CT Abdomen And Pelvis With Contrast Exam date and time: 11/25/2024 10:56 PM Age: 58 years old Clinical indication: Abdominal pain; Additional info: Rlq abdominal tenderness TECHNIQUE: Imaging protocol: Computed tomography of the abdomen and pelvis with contrast. Radiation optimization: All CT scans at this facility use at least one of these dose optimization techniques: automated exposure control; mA and/or kV adjustment per patient size (includes targeted exams where dose is matched to clinical indication); or iterative reconstruction. Contrast material: ISOVUE; Contrast volume: 75 ml; Contrast route: IV; COMPARISON: CT ABDOMEN PELVIS W CON 04/05/2024 5:36 AM FINDINGS: Lungs: Bibasilar subpleural interstitial fibrotic changes redemonstrated. Liver: Fatty liver changes with associated hepatomegaly measuring 17 cm. Liver otherwise unremarkable. Gallbladder and biliary ducts: Status post cholecystectomy. No evident bile duct dilatation allowing for prior cholecystectomy. Pancreas: Normal. No ductal dilation. Spleen: Normal. No splenomegaly. Adrenal glands: Normal. No mass. Kidneys and ureters: 17 mm cyst projects off of the lateral right kidney similar to previous CTs dating back to 01/25/2022. No follow-up advised. Kidneys and ureters otherwise unremarkable with no obstructing stones or uropathy. Stomach and bowel: Eulogio-en-Y gastric bypass changes redemonstrated. GI tract structures otherwise unremarkable with no evident wall thickening allowing for incomplete distention. Appendix: No evidence of appendicitis. Intraperitoneal space: Unremarkable. No free air. No significant fluid collection. Vasculature: Unremarkable. No abdominal aortic aneurysm. Lymph nodes: Unremarkable. No enlarged lymph nodes. Urinary bladder: Unremarkable as visualized. Reproductive: Hysterectomy. Bones/joints: Unremarkable. No acute fracture. Soft tissues: Unremarkable. IMPRESSION: No acute abnormalities of the abdomen and pelvis. Nonemergent findings as above.
[2024-11-25 22:23] LABS: Microscopic, Urine URINE MICROSCOPIC (MICROSCOPIC)
[2024-11-25 22:25] LABS: Color,Urine YELLOW (Yellow); Glucose,Urine (UA) Negative (Negative); Ketones,Urine 1+ (Negative); Leukocyte Esterase,Urine 2+ (Negative); PH,Urine 5.0 (5.0-8.5); Protein,Urine 1+ (Negative); Specific Gravity, Urine >= 1.030 (1.005-1.030); Urobilinogen,Urine 0.2 EU/dl (0.2)
[2024-11-25 22:26] LABS: Albumin Level 4.6 g/dl (3.5-5.0); Chloride 99 mmol/L (98-107); Potassium 4.3 mmoL/L (3.5-5.1); Sodium 136 mmol/L (136-145)
[2024-11-25 22:28] LABS: Alanine Aminotransferase 32 U/L (12-78); Aspartate Amino Transferase 38 U/L (14-36); Blood Urea Nitrogen 36 mg/dl (7-17); Creatinine Clearance Estimated 19 mL/min (50-200); Creatinine,Serum 2.40 mg/dl (0.52-1.04); Estimated Glomerular Filt Rate 21 ml/min (>60); GFR (African American) 25 ML/MIN (>60); Hematocrit 42.1 % (37.0-47.0); Hemoglobin 14.7 g/dL (12.2-16.2); Immature Granulocytes % 0.9 %; Mean Corpuscular HGB Conc 34.9 g/dL (31.8-35.4); Mean Corpuscular Hemoglobin 32.8 pg (27.0-31.2); Mean Corpuscular Volume 94.0 fl (81-99); Nucleated Red Blood Cells % 0 %; Platelet Count 366 K/mm3 (142-424); Red Blood Count 4.48 M/mm3 (4.20-5.40); Red Cell Distribution Width-SD 50.6 fL; White Blood Count 15.1 K/mm3 (4.8-10.8)
[2024-11-25 22:29] LABS: Albumin/Globulin Ratio 1.4 (1.1-1.8); Alkaline Phosphatase 108 U/L (38-126); Anion Gap 14.3 mEq/L (5-15); Bilirubin,Total 1.1 mg/dl (0.2-1.3); Calcium 9.6 mg/dl (8.4-10.2); Carbon Dioxide 27 mmol/L (22.0-30.0); Globulin 3.3 g/dL (1.3-3.2); Glucose 90 mg/dl (74-100); Lipase 221 U/L (23-300); Total Protein,Serum 7.9 g/dl (6.3-8.2)
[2024-11-25 22:31] VITALS: BP 140/95; PULSE 69; RESP 14; O2SAT 96
[2024-11-25] MEDS: KETOROLAC 30MG/ML VIAL 30 MG IV (22:40)
[2024-11-25] MEDS: ONDANSETRON 4MG/2ML VIAL 4 MG IV (22:40)
[2024-11-25 22:48] LABS: Bilirubin,Urine Negative (Negative)
[2024-11-25 22:49] LABS: WBC,Urine TNTC #/hpf (0-3)
[2024-11-25 22:50] LABS: Bacteria,Urine 1+ /lpf
[2024-11-25] MEDS: 0.9 % SODIUM CHLORIDE 1000ML 1,000 ML 999 ML IV (22:53)
[2024-11-25] MEDS: IOPAMIDOL-370 (76%);100ML BOTTLE 75 ML IV (22:57)
[2024-11-25] MEDS: SODIUM CHLORIDE 0.9% 10ML SYR (RAD ONLY) 10 ML IV (22:57)
[2024-11-25 23:16] VITALS: BP 115/70; PULSE 65; O2SAT 96
[2024-11-25 23:31] VITALS: BP 118/63; PULSE 73; O2SAT 97
[2024-11-25] MEDS: OXYCODONE 5MG IMMEDIATE RELEASE TABLET 5 MG PO (23:45)
[2024-11-25 23:47] VITALS: BP 101/85; PULSE 66; O2SAT 99
[2024-11-26] VITALS (9 sets, daily range): BP systolic 98–128; BP diastolic 52–70; PULSE 50–69; RESP 16–18; TEMP 36.2–36.9; O2SAT 94–98; BMI 45.7; BMI 46.4
[2024-11-26] MEDS: BELLADONNA ALKALOIDS 60 ML ML PO (00:25)
[2024-11-26] MEDS: CALCIUM CARBONATE 500MG CHEWTAB 500 MG PO (00:25)
--- NOTE | 2024-11-26 00:28 | PC.NURSE ---
0019- FSBS 67. 1/2 [address]50 admin [address] Noland
--- NOTE | 2024-11-26 00:30 | EXP.HP ---
History of Present Illness *Admission Date: 11/26/24 *Reason for visit:: Urinary tract infection with acute kidney injury *History of present illness: This 58-year-old female patient, has a history of urinary tract infections in the past. Noting she has difficulty breathing with lower quinolones and cephalosporins.. Her kidney function has been normal in the past. With GFR most the time above 60 in the past 2 years, now has dropped significantly. Also noting that several of her urines are specific gravity is always been 0.30 dictating that all of her urine is always been concentrated. She notes she is on diabetic medications but with normal hemoglobin A1c.. That before 2 years ago she had even dropped 80 pound. She only drinks alcohol occasionally, she does vape from time to time but has never smoked cigarettes. Noted recently because of helping her father who has dementia they are moving into his house. 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 She also recently had gone back to her doctor and received a controlled medication hydrocodone due to ankle pain . She reports last time she was admitted was for a urinary tract infection. After talking with the ER doctor to definitely try to hydrate her today willing to have IV fluids running at a rate of 250 for the night. Recheck her urine and renal function in the morning.. If [place] filtration rate does not improve will need to be able to follow-up with her provider for referral to a renal specialist. Exam at this time is basically benign no particular abdominal pain except for the right upper quadrant, there is tenderness on deep palpation and there is no CVA tenderness.. Patient notes that she does have a gastric sleeve that and that she was recently scoped and found to have an ulcer which has since been repaired. H&H remained stable per our labs.. Patient also noted though beds are working at her dad's house changing her diet she now has significant heartburn at this moment. Will hold Januvia at this time is very rare occasion it has caused kidney issues. [facility] Disclaimer: The information contained in this section may have been updated after the patient was seen, as this information can be updated by other users. Medical History (Updated 11/26/24 @ 00:50 by Marko Hernandes APRN) UTI (urinary tract infection) Acute kidney injury Hypokalemia Intractable abdominal pain Omental infarction NSIP (nonspecific interstitial pneumonitis) Fatty stool Bloating ILD (interstitial lung disease) Pyelonephritis Abdominal pain Strep sore throat Type 2 diabetes mellitus Colitis Chest pain Allergic rhinitis with postnasal drip Diabetes Acute viral syndrome Sinusitis Acute viral syndrome Conjunctivitis Hernia, internal Small bowel obstruction Primary osteoarthritis of both feet Posterior tibial tendinitis of left lower extremity BMI 45.0-49.9, adult Diarrhea Nausea and vomiting Abdominal pain Left femoral shaft fracture Left ureteral calculus Patient left without being seen Onychoincurvatum Nail dystrophy Arch pain of left foot Type 2 diabetes mellitus with diabetic neuropathy, without long-term current use of insulin Acquired equinus deformity of both feet Hydronephrosis Ureteral calculi Uncontrolled pain Hydronephrosis due to obstruction of ureter Kidney stone Bronchitis Left foot pain Complaint of pain of great toe Diabetic foot Pain of right heel UTI (urinary tract infection) Omental infarction History of femur fracture Ear noise/buzzing Hearing difficulty of both ears Urinary tract infection Kidney stone Migraine COPD (chronic obstructive pulmonary disease) Asthma Hyperlipidemia Anxiety Diabetes Hypertension Depression Surgical History History of gastric bypass History of knee replacement History of tubal ligation History of tonsillectomy History of hysterectomy (Unknown) History of cholecystectomy History of section Social History Smoking Status: Current every day smoker tobacco type: cigarettes packs per day: 0 and e-cigarettes smoking status stop date: Patient stated stopped 3 years ago how long ago did patient quit smoking: Stopped 3 years ago second hand exposure: No alcohol intake: never substance use type: denies use current occupational status: employed Travel in the last 8 weeks?: None household members: family housing: house current occupation: [employer] current occupational exposures/hazards: No caffeine: Yes Have you lived/traveled outside [place] in past 30 days?: No Contact w/someone who lives/traveled outside [place] past 30 days?: No Exposure to someone with infectious disease in past 14 days?: No Do you have a fever (greater than 100.4 F or 38 C)?: No Have you tested positive for COVID-19?: No Exposed to someone with COVID-19 in past 14 days?: No Do you have a sore throat?: No Do you have a cough?: No Do you have any weakness?: No Do you have any diarrhea?: No Are you experiencing any unusual bleeding?: No Do you have any muscle aches/pain?: No Do you have any abdominal pain?: Yes Are you experiencing loss of taste or smell?: No Other Medical History Have you received the Flu Vaccine for this season: No Have you received the Pneumonia Vaccine: No Review of Systems Review of Systems Review of systems:: pertinent systems reviewed and negative unless documented below Constitutional Constitutional: Reports as per HPI Comments: Morbidly obese female, is lying on the stretcher able to sit up and move without any assistance showing no significant discomfort Eyes Eyes: Reports as per HPI ENT Ears, Nose, Mouth, and Throat: Reports as per HPI *Cardiovascular Cardiovascular: Reports as per HPI Comments: Patient denies any and all chest pain *Respiratory Respiratory: Reports as per HPI Comments: Patient notes she has no problems with respiration or shortness of breath *Gastrointestinal Gastrointestinal: Reports as per HPI and Reports abdominal pain Comments: Patient did not know her abdomen was sore but on palpation she does have right upper quadrant tenderness, patient denies any problem with diarrhea nausea or vomiting *Genitourinary Genitourinary: Reports as per HPI and Reports dysuria *Musculoskeletal Musculoskeletal: Reports as per HPI Comments: Patient has a long history of problems with her ankle and requiring pain medicine for it *Neurologic Neurologic: Reports as per HPI Psychiatric Psychiatric: Reports as per HPI Endocrine Endocrine: Reports as per HPI Hematologic/Lymphatic Hematologic/Lymphatic: Reports as per HPI Allergic/Immunologic Allergic/Immunologic: Reports as per HPI Meds Home Medications and Allergies Home Medications ?Medication ?Instructions ?Recorded ?Confirmed ?Type bupropion HCl 150 mg tablet,12 hr 150 mg PO BID 08/11/18 09/29/24 History sustained-release fluoxetine 40 mg capsule 40 mg PO BID 08/11/18 09/29/24 History levothyroxine 125 mcg tablet 125 mcg PO AM 08/11/18 09/29/24 History pregabalin 150 mg capsule 150 mg PO BID 08/11/18 09/29/24 History simvastatin 5 mg tablet 5 mg PO HS 08/11/18 09/29/24 History loratadine 10 mg tablet 10 mg PO DAILY 01/08/20 09/29/24 History montelukast 10 mg tablet 10 mg PO PM 10/10/20 09/29/24 History risankizumab-rzaa 150 mg/mL 150 mg SQ Q84D 10/28/21 09/29/24 History subcutaneous pen injector budesonide-formoterol HFA 80 2 inh inhalation BID 02/07/24 09/29/24 History mcg-4.5 mcg/actuation aerosol inhaler fluticasone propionate 50 1 - 2 spray intranasal DAILY 02/07/24 09/29/24 History mcg/actuation nasal spray,suspension galcanezumab-gnlm 120 mg/mL 120 mg SQ MONTHLY 02/07/24 09/29/24 History subcutaneous pen injector (Emgality Pen) potassium chloride 10 mEq 10 meq PO DAILY 02/07/24 09/29/24 History capsule,extended release rimegepant 75 mg disintegrating 75 mg PO DAILYP PRN Migraine 02/07/24 09/29/24 History tablet (Nurtec ODT) Headache albuterol sulfate 90 mcg/actuation 2 inh inhalation Q6HP PRN 04/07/24 09/29/24 History aerosol inhaler Shortness Of Breath Or Wheezing flash glucose sensor (FreeStyle 04/07/24 09/29/24 History Niels 2 Sensor kit) fluticasone 100 mcg-salmeterol 50 1 inh inhalation BIDRT 30 days #60 04/07/24 09/29/24 Rx mcg/dose blistr powdr for ea inhalation (Advair Diskus) furosemide 20 mg tablet 20 mg PO DAILY 04/07/24 09/29/24 History linaclotide 72 mcg capsule 72 mcg PO DAILY 04/07/24 09/29/24 History (Linzess) nystatin-triamcinolone 100,000 1 applic topical BID 04/07/24 09/29/24 History unit/g-0.1 % topical cream pantoprazole 20 mg tablet,delayed 20 mg PO BID 04/07/24 09/29/24 History release sitagliptin phosphate 50 mg tablet 50 mg PO DAILY 04/07/24 09/29/24 History (Januvia) hyoscyamine sulfate 0.125 mg tablet 0.125 mg PO QID PRN abdominal pain 04/09/24 09/29/24 Rx #120 tabs azithromycin 250 mg tablet See Rx Instructions PO .COMPLEX #6 09/29/24 09/29/24 Rx (Zithromax Z-Kyaw) tabs benzonatate 100 mg capsule 100 mg PO BID PRN cough #20 caps 09/29/24 09/29/24 Rx methylprednisolone 4 mg tablets in See Rx Instructions PO PER PKG DIR 09/29/24 09/29/24 Rx a dose pack #21 tabs New Prescriptions to Start Prescriptions: Allergies Allergy/AdvReac Type Severity Reaction Status Date / Time cefdinir Allergy Severe Difficulty Verified 09/29/24 09:33 Breathing morphine (MORPHINE) Allergy Intermediate HALLUCINATI Verified 09/29/24 09:33 ONS levofloxacin (From Levaquin) Allergy Unknown Difficulty Verified 09/29/24 09:33 Breathing Exam Data for Last 24 hours Vital signs and Labs for Last 24 Hours: Temp Pulse Resp BP Pulse Ox O2 Del Method 97.1 F L 69 14 140/95 H 96 Room Air 11/25/24 21:51 11/25/24 22:31 11/25/24 22:31 11/25/24 22:31 11/25/24 22:31 11/25/24 21:51 Laboratory Results - last 24 hr 11/25/24 21:43: Urine Color Yellow, Urine Appearance Clear, Urine pH 5.0, Ur Specific [place] >= 1.030, Urine Protein 1+ A, Urine Glucose (UA) Negative, Urine Ketones 1+, Urine Blood Negative, Urine Nitrate Negative, Urine Bilirubin Negative, Urine Urobilinogen 0.2, Ur Leukocyte Esterase 2+ A, Urine RBC None, Urine WBC Tntc, Ur Squamous Epith Cells 5-10, Urine Bacteria 1+ 11/25/24 21:58: WBC 15.1 H, RBC 4.48, Hgb 14.7, Hct 42.1, MCV 94.0, MCH 32.8 H, MCHC 34.9, RDW 15.7, Plt Count 366, MPV 10.1, Neut % (Auto) 64.8, Lymph % (Auto) 28.1, [place] % (Auto) 5.2, Eos % (Auto) 0.5, Baso % (Auto) 0.5, Neut # (Auto) 9.8 H, Lymph # (Auto) 4.2, [place] # (Auto) 0.8, Eos # (Auto) 0.1, Baso # (Auto) 0.1, Sodium 136, Potassium 4.3, Chloride 99, Carbon Dioxide 27, Anion Gap 14.3, BUN 36 H, Creatinine 2.40 H, Estimated Creat Clear 19, Estimated GFR 21 L, Est GFR ( Amer) 25 L, Glucose 90, Calcium 9.6, Total Bilirubin 1.1, AST 38 H, ALT 32, Alkaline Phosphatase 108, Total Protein 7.9 D, Albumin 4.6, Globulin 3.3 H, Albumin/Globulin Ratio 1.4, Lipase 221 I & O for Last 24 hours: Intake & Output 11/23/24 11/24/24 11/25/24 11/26/24 05:59 05:59 05:59 05:59 Weight 240 lb Radiology Reports for the Last 24 Hours: No acute abnormalities of the abdomen and pelvis. Nonemergent findings as above. Enlarged fatty liver Constitutional Constitutional: mild distress and morbidly obese Comments: Patient is a very large, with a large abdomen *Routine HEENT Exam Head: Present normocephalic and atraumatic Eye: Present PERRL and normal accommodation ENT: Present mucous membranes moist Comments: Speaks well no difficulty *Routine Neck Exam Neck: Present supple, full ROM and JVD *Routine Respiratory Exam Respiratory: Present CTA bilaterally, normal respiratory effort, able to speak in complete sentences and symmetric chest movement Comments: Evaluation of lung lipscomb heard no rhonchi or rails. No signs of any respiratory difficulty no cough *Routine Cardiovascular Exam Cardiovascular: Present RRR, Normal S1 and Normal S2 Comments: Regular rate and rhythm with no significant edema or swelling to lower extremities nailbeds are pink with brisk capillary refill *Routine Abdominal Exam Abdominal: Present soft, normoactive bowel sounds and tenderness (Large abdomen with pain to palpation to right upper quadrant) Comments: Note history of gastric sleeve, *Routine Rectal Exam Rectal:: deferred *Routine Genitalia Exam Genitalia:: deferred *Routine Extremities Exam Extremities: Present full ROM, pulses intact and normal capillary refill Comments: No signs of impaired circulation to either arms or legs no significant edema found *Routine Skin Exam Skin: Present intact, dry and warm Comments: Damage to skin found no wounds or signs of bruising *Routine Neurological Exam Neurological: Present alert, oriented X3, CN II-XII intact, moving all extremities, normal tone, vision grossly intact, hearing grossly intact and normal speech Routine Psychiatric Exam Psychiatric: Present normal affect, normal thought process, cooperative, good insight and good judgment H&P: Result Impressions 1. Urinary tract infection with allergies to 2 classes of antibiotics 2. Acute kidney injury with decreased GFR, noting high specific gravity and UTI noting positive leuk 3. Morbid obesity also noting chronic pain syndrome related to ankle Imaging and Cardiology CT scan - abdomen: Additional comments: No acute abnormalities of the abdomen and pelvis. Nonemergent findings as above. Assessment and Plan *Assessment and plan (1) UTI (urinary tract infection): Status: Acute Qualifiers: Urinary tract infection type: acute cystitis Hematuria presence: with hematuria Qualified Code(s): N30.01 - Acute cystitis with hematuria Category: Medical Code(s): N39.0 - Urinary tract infection, site not specified (2) Acute kidney injury: Status: Acute Category: Medical Code(s): N17.9 - Acute kidney failure, unspecified (3) DM2 (diabetes mellitus, type 2): Status: Acute Qualifiers: Diabetes mellitus complication status: with other specified complication Diabetes mellitus chcf insulin use: without chcf use Qualified Code(s): E11.69 - Type 2 diabetes mellitus with other specified complication Category: Medical Code(s): E11.9 - Type 2 diabetes mellitus without complications (4) RUQ pain: Status: Acute Category: Medical Code(s): R10.11 - Right upper quadrant pain (5) Chronic pain disorder: Status: Acute Category: Medical Code(s): G89.4 - Chronic pain syndrome (6) Heartburn: Status: Acute Category: Medical Code(s): R12 - Heartburn Plan 1. Urinary tract infection we will use IV Augmentin at this time. 2. Acute kidney injury will continue IV fluids at 250 cc an hour see if rehydration recheck labs in the morning to see renal condition if there is any improvement. 3. Significant heartburn right now occasions ordered to help to relieve this discomfort 4. Type 2 diabetes mellitus on Januvia, this medication is being held at this time related to decreased GFR
--- NOTE | 2024-11-26 00:37 | PC.NURSE ---
report called to Adri CONTRERAS
--- NOTE | 2024-11-26 00:45 | PC.NURSE ---
SRNA at bedside to collect blood cultures.
--- NOTE | 2024-11-26 00:54 | PC.NURSE ---
Patient arrived to floor via wheelchair from ED at 00:48.
[2024-11-26] MEDS: FAMOTIDINE 20MG TABLET 20 MG PO (01:23)
[2024-11-26] MEDS: AMPICILLIN SODIUM/SULBACTAM 3 GM in 0.9 % SODIUM CHLORIDE 100 ML IV ×5 (01:24→23:53)
[2024-11-26] MEDS: PANTOPRAZOLE 40MG TABLET 40 MG PO ×2 (01:24→20:36)
[2024-11-26] MEDS: 0.9 % SODIUM CHLORIDE 1000ML 1,000 ML 250 ML IV ×6 (01:28→20:39)
--- NOTE | 2024-11-26 02:29 | PC.NURSE ---
Pt AOx4. New admit this shift. Reports improved abd pain after receiving pain medication in the ER. Receiving IVABx and fluids. Currently resting in bed with eyes closed. Respirations even and unlabored. Bed is low, locked, and call light is in reach.
--- NOTE | 2024-11-26 05:11 | XR_ITS ---
PROCEDURE INFORMATION: Exam: XR Chest Exam date and time: 11/26/2024 5:48 AM Age: 58 years old Clinical indication: Other: Chf TECHNIQUE: Imaging protocol: Radiologic exam of the chest. Views: 1 view. COMPARISON: CR XR CHEST PORTABLE 12/16/2022 12:36 PM FINDINGS: Lungs: Unremarkable. No consolidation. Pleural spaces: Unremarkable. No pleural effusion. No pneumothorax. Heart/Mediastinum: Unremarkable. No cardiomegaly. Bones/joints: Unremarkable. IMPRESSION: No acute findings.
[2024-11-26 06:27] LABS: Hematocrit 40.6 % (37.0-47.0); Immature Granulocytes % 0.8 %; Mean Corpuscular HGB Conc 30.5 g/dL (31.8-35.4); Mean Corpuscular Hemoglobin 28.9 pg (27.0-31.2); Mean Corpuscular Volume 94.6 fl (81-99); Nucleated Red Blood Cells % 0 %; Platelet Count 287 K/mm3 (142-424); Red Blood Count 4.29 M/mm3 (4.20-5.40); Red Cell Distribution Width-SD 52.1 fL; White Blood Count 12.9 K/mm3 (4.8-10.8)
[2024-11-26 06:45] LABS: Hemoglobin 12.6 g/dL (12.2-16.2)
[2024-11-26 06:59] LABS: Alanine Aminotransferase 23 U/L (12-78); Albumin Level 3.7 g/dl (3.5-5.0); Albumin/Globulin Ratio 1.5 (1.1-1.8); Alkaline Phosphatase 85 U/L (38-126); Anion Gap 10.0 mEq/L (5-15); Aspartate Amino Transferase 29 U/L (14-36); Bilirubin,Total 0.9 mg/dl (0.2-1.3); Blood Urea Nitrogen 33 mg/dl (7-17); Calcium 8.9 mg/dl (8.4-10.2); Carbon Dioxide 27 mmol/L (22.0-30.0); Chloride 104 mmol/L (98-107); Creatinine Clearance Estimated 23 mL/min (50-200); Creatinine,Serum 2.00 mg/dl (0.52-1.04); Estimated Glomerular Filt Rate 26 ml/min (>60); GFR (African American) 31 ML/MIN (>60); Globulin 2.5 g/dL (1.3-3.2); Glucose 88 mg/dl (74-100); Magnesium 2.4 mg/dl (1.6-2.3); Potassium 4.0 mmoL/L (3.5-5.1); Sodium 137 mmol/L (136-145); Total Protein,Serum 6.2 g/dl (6.3-8.2)
[2024-11-26] MEDS: ACETAMINOPHEN 325MG TAB 650 MG PO ×3 (08:29→20:36)
--- NOTE | 2024-11-26 09:32 | HMH.PHAINT1 ---
Pharmacy Intervention Comments: HOME MEDICATION LIST VERIFIED USING LIST FROM OUTPATIENT PHARMACY AND PT INTERVIEW WITH NURSE
[2024-11-26 11:25] LABS: POC Glucose,Bedside 82 (70-110)
[2024-11-26 11:35] LABS: Hemoglobin A1C 5.8 % (4.0-6.0)
[2024-11-26 11:45] LABS: POC Glucose,Bedside 76 (70-110)
[2024-11-26 16:47] LABS: POC Glucose,Bedside 86 (70-110)
--- NOTE | 2024-11-26 17:25 | PC.NURSE ---
pt is A&Ox4. she is achs fingersticks and they have been in the 80s range. she has NS fluids running at 250 mL per hour. she is receiving antibiotics and will likely go home tomorrow. pt has no other needs at this time. call light within reach.
[2024-11-27 03:57] VITALS: BP 110/65; PULSE 68; RESP 18; TEMP 36.8; O2SAT 97; BMI 48.2
[2024-11-27 04:56] LABS: POC Glucose,Bedside 91 (70-110)
--- NOTE | 2024-11-27 05:02 | PC.NURSE ---
Pt. is alert and orientated x 4. Pt. is on room air. Pt. c/o cramping type abdominal pain RUQ and right side abd. Cramping improved after Tylenol dose. Pt. receiving IV fluids and IV antibiotics for UTI. ACHS fingersticks with glucoses 80-90's. Pt. tolerating PO fluidsPt. resting in bed with eyes closed, Resp easy and non lablored. Personal items and call bed in reach. bed in low position and locked. safety measures in place.
[2024-11-27] MEDS: AMPICILLIN SODIUM/SULBACTAM 3 GM in 0.9 % SODIUM CHLORIDE 100 ML IV (05:48)
[2024-11-27 06:28] LABS: POC Glucose,Bedside 85 (70-110)
[2024-11-27 06:36] LABS: Hematocrit 35.3 % (37.0-47.0); Hemoglobin 11.1 g/dL (12.2-16.2); Immature Granulocytes % 0.5 %; Mean Corpuscular HGB Conc 31.4 g/dL (31.8-35.4); Mean Corpuscular Hemoglobin 29.1 pg (27.0-31.2); Mean Corpuscular Volume 92.4 fl (81-99); Nucleated Red Blood Cells % 0 %; Platelet Count 233 K/mm3 (142-424); Red Blood Count 3.82 M/mm3 (4.20-5.40); Red Cell Distribution Width-SD 49.2 fL; White Blood Count 10.5 K/mm3 (4.8-10.8)
[2024-11-27 07:21] LABS: Alanine Aminotransferase 19 U/L (12-78); Albumin Level 3.0 g/dl (3.5-5.0); Albumin/Globulin Ratio 1.3 (1.1-1.8); Alkaline Phosphatase 76 U/L (38-126); Anion Gap 8.2 mEq/L (5-15); Aspartate Amino Transferase 22 U/L (14-36); Bilirubin,Total 1.2 mg/dl (0.2-1.3); Blood Urea Nitrogen 17 mg/dl (7-17); Calcium 8.3 mg/dl (8.4-10.2); Carbon Dioxide 23 mmol/L (22.0-30.0); Chloride 112 mmol/L (98-107); Creatinine Clearance Estimated 51 mL/min (50-200); Creatinine,Serum 0.90 mg/dl (0.52-1.04); Estimated Glomerular Filt Rate 64 ml/min (>60); GFR (African American) 78 ML/MIN (>60); Globulin 2.3 g/dL (1.3-3.2); Glucose 85 mg/dl (74-100); Magnesium 1.8 mg/dl (1.6-2.3); Potassium 4.2 mmoL/L (3.5-5.1); Sodium 139 mmol/L (136-145); Total Protein,Serum 5.3 g/dl (6.3-8.2)
[2024-11-27 08:00] VITALS: BP 119/74; PULSE 73; RESP 16; TEMP 36.6; O2SAT 98
[2024-11-27] MEDS: PANTOPRAZOLE 40MG TABLET 40 MG PO (08:14)
[2024-11-27] MEDS: FLUOXETINE 20MG CAPSULE 40 MG PO (08:15)
[2024-11-27] MEDS: SITAGLIPTIN 50MG TABLET 50 MG PO (08:15)
[2024-11-27] MEDS: LEVOTHYROXINE 125MCG (0.125MG) TAB 125 MCG PO (08:15)
[2024-11-27] MEDS: PREGABALIN 50MG CAPSULE 150 MG PO (08:16)
--- NOTE | 2024-11-27 11:32 | EXP.DC.SUM ---
General Admission date:: 11/25/24 Discharge date: 11/27/24 HPI HPI HPI: This 58-year-old female patient, has a history of urinary tract infections in the past. Noting she has difficulty breathing with lower quinolones and cephalosporins.. Her kidney function has been normal in the past. With GFR most the time above 60 in the past 2 years, now has dropped significantly. Also noting that several of her urines are specific gravity is always been 0.30 dictating that all of her urine is always been concentrated. She notes she is on diabetic medications but with normal hemoglobin A1c.. That before 2 years ago she had even dropped 80 pound. She only drinks alcohol occasionally, she does vape from time to time but has never smoked cigarettes. Noted recently because of helping her father who has dementia they are moving into his house. 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 She also recently had gone back to her doctor and received a controlled medication hydrocodone due to ankle pain . She reports last time she was admitted was for a urinary tract infection. After talking with the ER doctor to definitely try to hydrate her today willing to have IV fluids running at a rate of 250 for the night. Recheck her urine and renal function in the morning.. If Camaro filtration rate does not improve will need to be able to follow-up with her provider for referral to a renal specialist. Exam at this time is basically benign no particular abdominal pain except for the right upper quadrant, there is tenderness on deep palpation and there is no CVA tenderness.. Patient notes that she does have a gastric sleeve that and that she was recently scoped and found to have an ulcer which has since been repaired. H&H remained stable per our labs.. Patient also noted though beds are working at her dad's house changing her diet she now has significant heartburn at this moment. Will hold Januvia at this time is very rare occasion it has caused kidney issues. Hospital Course Hospital Course Hospital Course: This 58-year-old female patient, has a history of urinary tract infections in the past. Noting she has difficulty breathing with lower quinolones and cephalosporins.. Her kidney function has been normal in the past. With GFR most the time above 60 in the past 2 years, now has dropped significantly. Also noting that several of her urines are specific gravity is always been 0.30 dictating that all of her urine is always been concentrated. She notes she is on diabetic medications but with normal hemoglobin A1c.. That before 2 years ago she had even dropped 80 pound. She only drinks alcohol occasionally, she does vape from time to time but has never smoked cigarettes. Noted recently because of helping her father who has dementia they are moving into his house. 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 She also recently had gone back to her doctor and received a controlled medication hydrocodone due to ankle pain . She reports last time she was admitted was for a urinary tract infection. After talking with the ER doctor to definitely try to hydrate her today willing to have IV fluids running at a rate of 250 for the night. Recheck her urine and renal function in the morning.. If Camaro filtration rate does not improve will need to be able to follow-up with her provider for referral to a renal specialist. Exam at this time is basically benign no particular abdominal pain except for the right upper quadrant, there is tenderness on deep palpation and there is no CVA tenderness.. Patient notes that she does have a gastric sleeve that and that she was recently scoped and found to have an ulcer which has since been repaired. H&H remained stable per our labs.. Patient also noted though beds are working at her dad's house changing her diet she now has significant heartburn at this moment. Will hold Januvia at this time is very rare occasion it has caused kidney issues. MIHAI resolved UTI - dc on PO augmentin, urine culture sample did grow multiple organisms, likely contamination, follow up with PCP as OP Exam Data for Last 24 hours Vital signs and Labs for Last 24 Hours: Temp Pulse Resp BP Pulse Ox O2 Del Method 98 F 73 16 119/74 98 Room Air 11/27/24 08:00 11/27/24 08:00 11/27/24 08:00 11/27/24 08:00 11/27/24 08:00 11/27/24 11:00 Laboratory Results - last 24 hr 11/26/24 05:54: Hemoglobin A1c 5.8 11/26/24 06:45: POC Glucose 76 11/26/24 16:39: POC Glucose 86 11/26/24 22:06: POC Glucose 91 11/27/24 06:10: POC Glucose 85 11/27/24 06:11: WBC 10.5, RBC 3.82 L, Hgb 11.1 L, Hct 35.3 L, MCV 92.4, MCH 29.1, MCHC 31.4 L, RDW 14.6, Plt Count 233, MPV 10.2, Neut % (Auto) 69.5, Lymph % (Auto) 22.7, Emmet % (Auto) 6.2, Eos % (Auto) 0.7, Baso % (Auto) 0.4, Neut # (Auto) 7.3, Lymph # (Auto) 2.4, Emmet # (Auto) 0.7, Eos # (Auto) 0.1, Baso # (Auto) 0.0, Sodium 139, Potassium 4.2, Chloride 112 H, Carbon Dioxide 23, Anion Gap 8.2, BUN 17 D, Creatinine 0.90 D, Estimated Creat Clear 51, Estimated GFR 64, Est GFR ( Amer) 78 D, Glucose 85, Calcium 8.3 L, Magnesium 1.8 D, Total Bilirubin 1.2, AST 22, ALT 19, Alkaline Phosphatase 76, Total Protein 5.3 L, Albumin 3.0 L D, Globulin 2.3, Albumin/Globulin Ratio 1.3 I & O for Last 24 hours: Intake & Output 11/24/24 11/25/24 11/26/24 11/27/24 23:59 23:59 23:59 23:59 Intake Total 5003 / 6242 1599 / 1599 Output Total 1999 1950 / 1950 Balance 3003 / 4242 -351 / -351 Weight 108.862 kg 111.493 kg 115.893 kg Microbiology Reports for the Last 24 Hours: Microbiology 11/25/24 21:43 Urine,Clean Catch Urine Culture - Final Multiple organisms, suggests contamination. 11/26/24 00:40 Blood Blood Culture - Preliminary NO GROWTH AFTER 24 HOURS 11/26/24 00:46 Blood Blood Culture - Preliminary NO GROWTH AFTER 24 HOURS Constitutional Constitutional: no acute distress *Routine HEENT Exam Head: Present normocephalic Eye: Present EOMI and PERRL ENT: Present mucous membranes moist *Routine Neck Exam Neck: Present supple; Absent lymphadenopathy *Routine Respiratory Exam Respiratory: Present CTA bilaterally *Routine Cardiovascular Exam Cardiovascular: Present RRR *Routine Abdominal Exam Abdominal: Present soft and normoactive bowel sounds; Absent tenderness *Routine Extremities Exam Extremities: Absent cyanosis, clubbing or edema *Routine Skin Exam Skin: Present warm; Absent rash *Routine Neurological Exam Neurological: Present alert and oriented X3 Results Data Completed and Pending Labs on day of discharge: Labs from last 24 hours 11/27/24 11/27/24 11/26/24 06:11 06:10 22:06 WBC 10.5 RBC 3.82 L Hgb 11.1 L Hct 35.3 L MCV 92.4 MCH 29.1 MCHC 31.4 L RDW 14.6 Plt Count 233 MPV 10.2 Neut % (Auto) 69.5 Lymph % (Auto) 22.7 Emmet % (Auto) 6.2 Eos % (Auto) 0.7 Baso % (Auto) 0.4 Neut # (Auto) 7.3 Lymph # (Auto) 2.4 Emmet # (Auto) 0.7 Eos # (Auto) 0.1 Baso # (Auto) 0.0 Sodium 139 Potassium 4.2 Chloride 112 H Carbon Dioxide 23 Anion Gap 8.2 BUN 17 D Creatinine 0.90 D Estimated Creat Clear 51 Estimated GFR 64 Est GFR ( Amer) 78 D Glucose 85 POC Glucose 85 91 Hemoglobin A1c Calcium 8.3 L Magnesium 1.8 D Total Bilirubin 1.2 AST 22 ALT 19 Alkaline Phosphatase 76 Total Protein 5.3 L Albumin 3.0 L D Globulin 2.3 Albumin/Globulin Ratio 1.3 11/26/24 11/26/24 11/26/24 16:39 06:45 05:54 WBC RBC Hgb Hct MCV MCH MCHC RDW Plt Count MPV Neut % (Auto) Lymph % (Auto) Emmet % (Auto) Eos % (Auto) Baso % (Auto) Neut # (Auto) Lymph # (Auto) Emmet # (Auto) Eos # (Auto) Baso # (Auto) Sodium Potassium Chloride Carbon Dioxide Anion Gap BUN Creatinine Estimated Creat Clear Estimated GFR Est GFR ( Amer) Glucose POC Glucose 86 76 Hemoglobin A1c 5.8 Calcium Magnesium Total Bilirubin AST ALT Alkaline Phosphatase Total Protein Albumin Globulin Albumin/Globulin Ratio Preliminary micro results at discharge 11/26/24 00:40 Blood Culture - Preliminary Blood NO GROWTH AFTER 24 HOURS 11/26/24 00:46 Blood Culture - Preliminary Blood NO GROWTH AFTER 24 HOURS DS: Diagnosis Discharge Diagnosis (1) UTI (urinary tract infection): Status: Acute Code(s): N39.0 - Urinary tract infection, site not specified Qualifiers: Hematuria presence: with hematuria Urinary tract infection type: acute cystitis Qualified Code(s): N30.01 - Acute cystitis with hematuria (2) Acute kidney injury: Status: Acute Code(s): N17.9 - Acute kidney failure, unspecified (3) DM2 (diabetes mellitus, type 2): Status: Acute Code(s): E11.9 - Type 2 diabetes mellitus without complications Qualifiers: Diabetes mellitus complication status: with other specified complication Diabetes mellitus retirement insulin use: without intermediate accountant use Qualified Code(s): E11.69 - Type 2 diabetes mellitus with other specified complication (4) RUQ pain: Status: Acute Code(s): R10.11 - Right upper quadrant pain (5) Chronic pain disorder: Status: Acute Code(s): G89.4 - Chronic pain syndrome (6) Heartburn: Status: Acute Code(s): R12 - Heartburn Meds Home Medications and Allergies Home Medications ?Medication ?Instructions ?Recorded ?Confirmed ?Type bupropion HCl 150 mg tablet,12 hr 150 mg PO BID 08/11/18 11/26/24 History sustained-release fluoxetine 40 mg capsule 40 mg PO BID 08/11/18 11/26/24 History levothyroxine 125 mcg tablet 125 mcg PO AM 08/11/18 11/26/24 History pregabalin 150 mg capsule 150 mg PO BID 08/11/18 11/26/24 History simvastatin 5 mg tablet 5 mg PO HS 08/11/18 11/26/24 History loratadine 10 mg tablet 10 mg PO DAILY 01/08/20 11/26/24 History montelukast 10 mg tablet 10 mg PO PM 10/10/20 11/26/24 History risankizumab-rzaa 150 mg/mL 150 mg SQ Q84D 10/28/21 11/26/24 History subcutaneous pen injector fluticasone propionate 50 1 - 2 spray intranasal DAILY 02/07/24 11/26/24 History mcg/actuation nasal spray,suspension galcanezumab-gnlm 120 mg/mL 120 mg SQ MONTHLY 02/07/24 11/26/24 History subcutaneous pen injector (Emgality Pen) rimegepant 75 mg disintegrating 75 mg PO DAILYP PRN Migraine 02/07/24 11/26/24 History tablet (Nurtec ODT) Headache albuterol sulfate 90 mcg/actuation 2 inh inhalation Q6HP PRN 04/07/24 11/26/24 History aerosol inhaler Shortness Of Breath Or Wheezing flash glucose sensor (FreeStyle 04/07/24 11/26/24 History Niels 2 Sensor kit) fluticasone 100 mcg-salmeterol 50 1 inh inhalation BIDRT 30 days #60 04/07/24 11/26/24 Rx mcg/dose blistr powdr for ea inhalation (Advair Diskus) furosemide 20 mg tablet 20 mg PO DAILYP PRN Edema 04/07/24 11/26/24 History linaclotide 72 mcg capsule 72 mcg PO NEEDED PRN 04/07/24 11/26/24 History (Linzess) Constipation pantoprazole 20 mg tablet,delayed 20 mg PO BID 04/07/24 11/26/24 History release sitagliptin phosphate 50 mg tablet 50 mg PO DAILY 04/07/24 11/26/24 History (Januvia) phentermine 37.5 mg tablet 37.5 mg PO DAILY 11/26/24 11/26/24 History tirzepatide 2.5 mg/0.5 mL 2.5 mg SQ WEEKLY 11/26/24 11/26/24 History subcutaneous pen injector (Mounjaro) amoxicillin 875 mg-potassium 1 tab PO Q12H 5 days #10 tabs 11/27/24 Rx clavulanate 125 mg tablet New Prescriptions to Start Prescriptions: amoxicillin-pot clavulanate Renate Barber Allergies Allergy/AdvReac Type Severity Reaction Status Date / Time cefdinir Allergy Severe Difficulty Verified 09/29/24 09:33 Breathing morphine (MORPHINE) Allergy Intermediate HALLUCINATI Verified 09/29/24 09:33 ONS levofloxacin (From Levaquin) Allergy Unknown Difficulty Verified 09/29/24 09:33 Breathing Discharge Plan Disposition Patient Disposition: Home, Self-Care Condition: Good Follow up Plan Prescriptions/Medication Reconciliation: New amoxicillin-pot clavulanate 875-125 mg tablet 1 tab PO Q12H 5 Days Qty: 10 0RF Continued loratadine 10 mg tablet 10 mg PO DAILY Nurtec ODT 75 mg tablet,disintegrating 75 mg PO DAILYP PRN (Reason: Migraine Headache) fluticasone propionate 50 mcg/actuation spray,suspension 1 - 2 spray intranasal DAILY Patient Comments: instill 1-2 SPRAYS IN EACH NOSTRIL EVERY DAY Rx Instructions: administer 1-2 sprays into each nostril every day Emgality Pen 120 mg/mL pen injector 120 mg SQ MONTHLY risankizumab-rzaa 150 MG/ML pen injector 150 mg SQ Q84D albuterol sulfate 90 mcg/actuation HFA aerosol inhaler 2 inh INHALATION Q6HP PRN (Reason: Shortness Of Breath Or Wheezing) Patient Comments: INHALE TWO PUFFS BY MOUTH EVERY 6 HOURS NEEDED FOR SHORTNESS OF BREATH OR wheezing Linzess 72 mcg capsule 72 mcg PO NEEDED PRN (Reason: Constipation) Patient Comments: TAKE ONE CAPSULE BY MOUTH EVERY DAY Januvia 50 mg tablet 50 mg PO DAILY Patient Comments: TAKE ONE TABLET BY MOUTH EVERY DAY (DME) FreeStyle Niels 2 Sensor Kit MISCELLANEOUS Patient Comments: USE DIRECTED FOR CONTINUOUS GLUCOSE MONITORING furosemide 20 mg tablet 20 mg PO DAILYP PRN (Reason: Edema) Rx Instructions: PATIENT STATES SHE TAKES NEEDED FOR EDEMA pantoprazole 20 mg tablet,delayed release (DR/EC) 20 mg PO BID fluticasone propion-salmeterol [Advair Diskus] 100-50 mcg/dose Blister With Device 1 inh inhalation BIDRT 30 Days Qty: 60 0RF phentermine 37.5 mg tablet 37.5 mg PO DAILY Mounjaro 2.5 mg/0.5 mL pen injector 2.5 mg SQ WEEKLY fluoxetine 40 MG capsule 40 mg PO BID bupropion HCl 150 MG tablet 150 mg PO BID simvastatin 5 MG tablet 5 mg PO HS levothyroxine 125 MCG tablet 125 mcg PO AM pregabalin 150 MG capsule 150 mg PO BID montelukast 10 MG tablet 10 mg PO PM Problem Reconciliation Problems Reviewed?: Yes Patient Discharge Instructions ACTIVITY: Ambulate as tolerated DIET: continue same diet Patient Instructions: Acute Kidney Injury, DI for Urinary Tract Infection (UTI), Stop Light Infection Print Language: Setswana Providers Primary Care Provider: Provider,Referral Admit Provider: Marco Antonio Acosta Attending Provider: Marco Antonio Acosta
[2024-11-27 12:18] VITALS: BMI 48.2
--- NOTE | 2024-11-28 10:40 | SW/DCPLANNER ---
Spoke with patient on the phone. Patient stated that she is doing good. Patient stated that she is aware of her upcoming appointment and that she will call to schedule it today. 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 Patient stated that she has no concerns or questions at this time. Vanessa Neri
== END 2024-11-27 13:10 | disposition home or self-care (01) ==
LOC: ER 21:45 → 2ND 23:54
PROVIDERS: Nurse Practitioner Family; Admitting Provider Internal Medicine Adolescent Medicine; Emergency Provider Student in an Organized Health Care Education/Training Program; Visit Provider Internal Medicine Adolescent Medicine
DX: N30.01 Acute cystitis with hematuria (principal); E11.40 Type 2 diabetes mellitus with diabetic neuropathy, unspecified; E11.21 Type 2 diabetes mellitus with diabetic nephropathy; I11.0 Hypertensive heart disease with heart failure; N17.9 Acute kidney failure, unspecified; G89.4 Chronic pain syndrome; R12 Heartburn; E66.01 Morbid (severe) obesity due to excess calories; M19.072 Primary osteoarthritis, left ankle and foot; M19.071 Primary osteoarthritis, right ankle and foot; J44.89 Other specified chronic obstructive pulmonary disease; I50.9 Heart failure, unspecified; N28.1 Cyst of kidney, acquired; G43.909 Migraine, unspecified, not intractable, without status migrainosus; K76.0 Fatty (change of) liver, not elsewhere classified; F41.9 Anxiety disorder, unspecified; F17.290 Nicotine dependence, other tobacco product, uncomplicated; F32.A Depression, unspecified; E78.5 Hyperlipidemia, unspecified; Z88.5 Allergy status to narcotic agent; Z68.42 Body mass index [BMI] 45.0-49.9, adult; Z88.1 Allergy status to other antibiotic agents; Z79.84 Long term (current) use of oral hypoglycemic drugs; Z90.49 Acquired absence of other specified parts of digestive tract; Z90.710 Acquired absence of both cervix and uterus; Z98.84 Bariatric surgery status; Z79.51 Long term (current) use of inhaled steroids; Z79.4 Long term (current) use of insulin; Z79.899 Other long term (current) drug therapy
CPT/HCPCS: 36415; 71045; 74177; 80053; 81001; 82962; 83036; 83605; 83690; 83735; 85025; 87040; 87086; 93005; 94640; 96361; 96365; 96375; 96376; 99285; G0378; J0295; J1650; J1885; J2405; J7030; Q9967

== ENCOUNTER 2025-04-05 09:47 | Outpatient (CLI) | payer MEDICARE, SELFPAY ==
--- OUTSIDE RECORDS SUMMARY | 2025-04-05 09:50 | XMS_ITS | Encounter Summary ---
Author Organization [employer] ([place], [place], [place], [place], [place]) Address [address] [place] [address] Care Team Providers Care Slasher Name Role Phone Salima Gonzáles DO Primary Care Provider [phone] Encounter Details Date Type Department Care Team (Late st Contact Info) Description 10/05/2020 Transcribed Document [facility] [place] Family Medicine [address] [place] [address] ProviderQuincy MD [address] [place], [place] [id number] Social History Tobacco Use Types Packs/Day Years Used Date Smoking Tobacco: Never Assessed Comments Unknown Sex and Gender Information Value Date Recorded Sex Assigned at Not on file Legal Sex Female 2:54 PM CDT Gender Identity Not on file Sexual Orientation Not on file documented as of this encounter Miscellaneous Notes * Cerner Conversion Note - Historical ProviderMD - 10/05/2020 5:00 AM CDT Chart Check - Review Order Profile Entered On: 10/05/2020 5:29 EDT Performed On: 10/05/2020 5:00 EDT by Janae Avery LPN Chart Check Powerplans Initiated/Discontinued as Appropriate : Yes All Active Orders Reviewed : Yes Janae Avery LPN - 10/05/2020 5:29 EDT Electronically signed by [facility] Conversion Casual Shoe Inspector Cerner at 08/23/2022 10:58 AM CDT documented in this encounter Plan of Treatment Not on file documented as of this encounter Visit Diagnoses Not on filedocumented in this encounter Care Teams Slasher Relationship Specialty Start Date End Date Salima Gonzáles DO [address] [place] [address] PCP - General Family Medicine 02/09/23 documented as of this encounter
--- OUTSIDE RECORDS SUMMARY | 2025-04-05 09:50 | XMS_ITS | Encounter Summary ---
Author Organization [employer] ([place], [place], [place], [place], [place]) Address [address] [place] [address] Care Team Providers Care Studio Hand Name Role Phone Salima Gonzáles Tate SWANN Primary Care Provider [phone] Encounter Details Date Type Department Care Team (Late st Contact Info) Description 10/05/2020 Transcribed Document [facility] Family Medicine [facility] [place] [address] ProviderQuincy MD [address] [place], [place] [id number] Social History Tobacco Use Types Packs/Day Years Used Date Smoking Tobacco: Never Assessed Comments Unknown Sex and Gender Information Value Date Recorded Sex Assigned at Not on file Legal Sex Female 2:54 PM CDT Gender Identity Not on file Sexual Orientation Not on file documented as of this encounter Miscellaneous Notes * Cerner Conversion Note - Quincy ProviderMD - 10/05/2020 5:05 PM CDT Nursing Discharge [...] Hoa Coleman RN - 10/05/2020 17:05 EDT Electronically signed by [place] [facility] Conversion Dentist/Owner Cerner at 08/23/2022 10:49 AM CDT documented in this encounter Plan of Treatment Not on file documented as of this encounter Visit Diagnoses Not on filedocumented in this encounter Care Teams Studio Hand Relationship Specialty Start Date End Date Salima Gonzáles, [address] [address] PCP - General Family Medicine 02/09/23 documented as of this encounter
--- OUTSIDE RECORDS SUMMARY | 2025-04-05 09:51 | XMS_ITS | Encounter Summary ---
Author Organization [employer] ([place], [place], [place], [place], [place]) Address [address] [place] [address] Care Team Providers Care Ink Printer Name Role Phone Eliecer Salima Tate SWANN Primary Care Provider [phone] Encounter Details Date Type Department Care Team (Late st Contact Info) Description 10/08/2019 Transcribed Document [facility] [place] [address] [place] [address] ProviderQuincy MD [address] [place] [address] Social History Tobacco Use Types [...] Kate MD - 10/08/2019 10:26 AM CDT [facility] [place] [address] AMBIKA PIERRE :1965 Visit Time:10/08/2019 [...] office, November 09 at 11:00am Where: [address] [id number]- Medications What How Much When Instructions Next [...] ??? Talk with a diet and nutrition assistant (dietitian) if you have questions about specific [...] Bulgur wheat. Millet. Quinoa. Bran muffins. Popcorn. [place] wafer crackers. Meats and other proteins [place], kidney, and cox beans. Soybeans. Split peas. [...] Cream cheese. Sour cream. Fats and oils [place]. Beverages Soft drinks. Other foods Cakes and [...] 04/23/2006 Document Revised: 02/25/2018 Document Reviewed: 02/25/2018 adjust Interactive Patient Education ?? 2019 [employer]. Gastritis, Adult Gastritis is swelling (inflammation) of [...] these instructions at home: Medicines ??? Take adit-fzj-ovuwnwd and prescription medicines only as told by [...] 10/09/2008 Document Revised: 09/10/2018 Document Reviewed: 09/10/2018 adjust Interactive Patient Education ?? 2019 [employer]. Colitis Colitis is inflammation of the colon. [...] you start to feel better. ??? Take eejc-lqe-dmjhiuy and prescription medicines only as told by [...] 05/31/2005 Document Revised: 10/24/2018 Document Reviewed: 10/24/2018 adjust Interactive Patient Education ?? 2019 Elsevier Inc. [...] times a day. General instructions ??? Take eghy-qbr-ymnpdqo and prescription medicines only as told by [...] 01/30/2009 Document Revised: 09/12/2018 Document Reviewed: 09/12/2018 adjust Interactive Patient Education ?? 2019 [employer]. Colonoscopy, Adult, Care After This sheet gives [...] soft and easy to digest. ??? Take mppy-fqv-pdeghsr or prescription medicines only as told by [...] 05/26/2011 Document Revised: 02/21/2018 Document Reviewed: 01/15/2017 adjust Interactive Patient Education ?? 2019 adjust Inc. Esophagogastroduodenoscopy, Care After Refer to this [...] 04/09/2013 Document Revised: 09/28/2016 Document Reviewed: 03/16/2016 adjust Interactive Patient Education ?? 2019 [employer]. metronidazole (me irma hawk) FIRST Metronidazole, Flagyl, [...] (more likely to occur while taking metronidazole long term care social worker): ?? numbness, tingling, or burning pain in [...] may report side effects to FDA at 8-229-OJB-2191. What other drugs will affect metronidazole? Sometimes [...] drugs may affect metronidazole, including prescription and bzkw-yxb-ddxbyps medicines, vitamins, and herbal products. Not all [...] to ensure that the information provided by [employer]. ('Mult[employer]') is accurate, up-to-date, and complete, but no guarantee is made to that effect. Drug information contained herein may be time sensitive. [employer] information has been compiled for use by healthcare practitioners and consumers in the [place] and therefore [employer] does not warrant that uses outside of the [place] are appropriate, unless specifically indicated otherwise. [employer] drug information does not endorse drugs, diagnose patients or recommend therapy. [employer] drug information is an informational resource designed [...] effective or appropriate for any given patient. [employer] does not assume any responsibility for any aspect of healthcare administered with the aid of information Ever[employer] provides. The information contained herein is not intended to cover all possible uses, directions, precautions, warnings, drug interactions, allergic reactions, or adverse effects. If you have questions about the drugs you are taking, check with your doctor, nurse or pharmacist. Copyright 6363-8621 [employer]. Version: 12.02. Revision Date: 02/25/2018. linaclotide (DEBORAH GOULD titram) Deborahzess What is the most important information I [...] may report side effects to FDA at 0-097-EYM-6409. What other drugs will affect linaclotide? Other drugs may interact with linaclotide, including prescription, zqli-hxt-rnokkto, vitamin, and herbal products. Tell your doctor [...] to ensure that the information provided by [employer]. ('Multum') is accurate, up-to-date, and complete, but no guarantee is made to that effect. Drug information contained herein may be time sensitive. [employer] information has been compiled for use by healthcare practitioners and consumers in the [place] and therefore [employer] does not warrant that uses outside of the [place] are appropriate, unless specifically indicated otherwise. [employer] drug information does not endorse drugs, diagnose patients or recommend therapy. [employer] drug information is an informational resource designed [...] effective or appropriate for any given patient. [employer] does not assume any responsibility for any aspect of healthcare administered with the aid of information Ever[employer] provides. The information contained herein is not intended to cover all possible uses, directions, precautions, warnings, drug interactions, allergic reactions, or adverse effects. If you have questions about the drugs you are taking, check with your doctor, nurse or pharmacist. Copyright 9176-1910 [employer]. Version: 4.02. Revision Date: 01/23/2017. pantoprazole (oral/injection) [...] a broken bone while taking this medicine long term care social worker or more than once per day. What [...] may report side effects to FDA at 4-686-DZT-5129. What other drugs will affect pantoprazole? Tell your doctor about all your other medicines, especially: ?? digoxin; ?? methotrexate; or ?? a diuretic or 'water pill.' This list is not complete. Other drugs may affect pantoprazole, including prescription and tkmy-fwc-cdznhmu medicines, vitamins, and herbal products. Not all [...] to ensure that the information provided by [employer]. ('[employer]') is accurate, up-to-date, and complete, but no guarantee is made to that effect. Drug information contained herein may be time sensitive. [employer] information has been compiled for use by healthcare practitioners and consumers in the [place] and therefore [employer] does not warrant that uses outside of the [place] are appropriate, unless specifically indicated otherwise. [employer] drug information does not endorse drugs, diagnose patients or recommend therapy. [employer] drug information is an informational resource designed [...] effective or appropriate for any given patient. [facility] does not assume any responsibility for any aspect of healthcare administered with the aid of information [employer] provides. The information contained herein is not intended to cover all possible uses, directions, precautions, warnings, drug interactions, allergic reactions, or adverse effects. If you have questions about the drugs you are taking, check with your doctor, nurse or pharmacist. Copyright 6598-9885 [employer]. Version: 19.02. Revision Date: 10/30/2017. Emergency Awareness [...] Assistance with quitting is available by contacting 4-810-IFCK-NOW. This is a free resource providing counseling, [...] was given the opportunity to ask questions. Patient/Clay Hoister Name: Patient/Clay Hoister Signature: Relationship to Patient: Clinician/Hospital Clay Hoister Signature: Date: documented in this encounter Plan of Treatment Not on file documented as of this encounter Visit Diagnoses Not on filedocumented in this encounter Care Teams Ink Printer Relationship Specialty Start Date End Date Salima Gonzáles, [address] [facility] [address] [place] [address] PCP - General Family Medicine 02/09/23 documented as of this encounter
--- OUTSIDE RECORDS SUMMARY | 2025-04-05 09:51 | XMS_ITS | Encounter Summary ---
Author Organization [employer] ([place], [place], [place], [place], [place]) Address [address] [place] [address] Care Team Providers Care Back Tacker Name Role Phone Anujlizbet Salimajovanni Ybarra DO Primary Care Provider [phone] Encounter Details Date Type Department Care Team (Late st Contact Info) Description 10/05/2020 Transcribed Document [facility] [place] [address] [place] [address] ProviderQuincy MD [address] [place], [place] [address] Social History Tobacco Use Types Packs/Day Years [...] Policy Numbers : Insurance 1 Health Plan: [facility] MEDIC[facility] REPL Policy Number: [id number] Authorization Number: Insurance Primary Name : [place] MEDICARE REPL Policy Number: [id number] Authorization Status-Primary : Awaiting callback Reference Number-Primary : [id number] Authorized Service Begin Date-Primary : 10/03/2020 EDT Authorization Comments-Primary : Clinicals faxed via [employer] for IP approval Historical Authorization Comments-Primary : Comment 1: Clinicals submitted via [employer] for IP approval (DEISY LIRA RN 10/04/2020 08:24) DEISY LIRA RN - 10/05/2020 14:13 EDT Electronically signed by [place] [facility] Conversion Immunohematologist [employer] at 08/23/2022 11:14 AM CDT documented in this encounter Plan of Treatment Not on file documented as of this encounter Visit Diagnoses Not on filedocumented in this encounter Care Teams Back Tacker Relationship Specialty Start Date End Date Salima Gonzáles, [address] [facility] [address] [place] [address] PCP - General Family Medicine 02/09/23 documented as of this encounter
--- OUTSIDE RECORDS SUMMARY | 2025-04-05 09:51 | XMS_ITS | Encounter Summary ---
Author Organization [employer] ([place], [place], [place], [place], [place]) Address [address] [place] [address] Care Team Providers Care Technology Teacher Name Role Phone Salima Gonzáles Primary Care Provider [phone] Encounter Details Date Type Department Care Team (Late st Contact Info) Description 10/04/2020 Transcribed Document [facility] [place] Family Medicine [address] [place] [address] ProviderQuincy MD [address] [place], [place] [id number] Social History Tobacco Use Types Packs/Day Years Used Date Smoking Tobacco: Never Assessed Comments Unknown Sex and Gender Information Value Date Recorded Sex Assigned at Not on file Legal Sex Female 2:54 PM CDT Gender Identity Not on file Sexual Orientation Not on file documented as of this encounter Miscellaneous Notes * [employer] Conversion Note - Quincy ProviderMD - 10/04/2020 1:16 PM CDT [facility] Main OR IntraOp Summary Primary Physician: ANNABEL ZAMBRANO MD-URO Finalized Date/Time: 10/10/20 09:57:38 Pt. Name: AMBIKA PIERRE./Sex: 1965 Female Med Rec #: [id number] Physician: SUREKHA ARGUELLES MD Financial #: [id number] Pt. Type: I Room/Bed: [facility]/1 Admit/Disch: 10/03/20 18:06:00 - 10/05/20 16:59:00 Institution: [facility] IntraOp Case Attendance Entry 1 Entry 2 Entry 3 Case Attendee ANNABEL ZAMBRANO MD-URO Neha Duarte, Mendel Pierce RN Role Performed Surgeon/Proceduralist, Pourer Buggy Ladle, First Pourer Buggy Ladle, Second First Time In 10/04/20 13:03:00 10/04/20 13:03:00 10/04/20 13:03:00 Time Out 10/04/20 13:54:00 10/04/20 13:54:00 10/04/20 13:54:00 Procedure Ureteroscopy(Left) Ureteroscopy(Left) Ureteroscopy(Left) Other Attendee LASER Superficial Wound Closed By: Last Modified By: Neha Duarte Rn Moore, Kimberly A, Rn Moore, Kimberly A, Rn 10/04/20 13:54:29 10/04/20 13:54:29 10/04/20 13:54:29 Entry 4 Entry 5 Case Attendee Prema Rojas, VERONICA AU MD-ANS Reinspector Role Performed Scrub, First Anesthesiologist Time In 10/04/20 13:03:00 10/04/20 13:03:00 Time Out 10/04/20 13:54:00 10/04/20 13:54:00 Procedure Ureteroscopy(Left) Ureteroscopy(Left) Other Attendee Superficial Wound Closed By: Last Modified By: Neha Duarte Rn Moore, Kimberly A, Rn 10/04/20 13:54:29 10/04/20 13:54:29 [facility] IntraOp Case Attendance Audit 10/04/20 13:54:29 Tassel Clipper: [id number] Modifier: [id number] 1 <+> Time Out 1 <*> Procedure Ureteroscopy(Left) 2 <+> Time Out 2 <*> Procedure Ureteroscopy(Left) 3 <+> Time Out 3 <*> Procedure Ureteroscopy(Left) 4 <+> Time Out 4 <*> Procedure Ureteroscopy(Left) 5 <+> Time Out 5 <*> Procedure Ureteroscopy(Left) 10/04/20 13:43:04 Tassel Clipper: [id number] Modifier: [id number] <+> 1 Time In <+> 1 Procedure 2 <+> Time In 2 <*> Procedure Ureteroscopy(Left) 3 <+> Time In 3 <*> Procedure Ureteroscopy(Left) 4 <+> Time In 4 <*> Procedure Ureteroscopy(Left) 5 <+> Time In 5 <*> Procedure Ureteroscopy(Left) [facility] IntraOp Case Times Entry 1 Patient In Room Time 10/04/20 13:03:00 Out Room Time 10/04/20 13:54:00 Anesthesia Start Time 10/04/20 13:03:00 Stop Time 10/04/20 13:54:00 Surgery / Procedure Times Start Time 10/04/20 13:16:00 Stop Time 10/04/20 13:47:00 Last Modified By: Neha Duarte Rn 10/04/20 13:54:29 [facility] IntraOp Case Times Audit 10/04/20 13:54:29 Tassel Clipper: [id number] Modifier: [id number] <+> 1 Out Room Time <+> 1 Stop Time 10/04/20 13:48:00 Tassel Clipper: [id number] Modifier: [id number] <+> 1 Stop Time [facility] IntraOp Departure from OR Entry 1 Integumentary Assessment Integumentary WDL Assessment WDL Transfer/Handoff Transfer to PACU Phase I Handoff Method Bedside/Face to face, Phone call, Online nursing summary Post-op Transport Stretcher/rney Via Patient Transport Neha Duarte Rn, Accompanied by VERONICA AU MD-ANS Last Modified By: Neha Duarte Rn 10/04/20 13:38:09 [facility] IntraOp Fire Risk Assessment Entry 1 [...] Safety Precautions Followed Last Modified By: Neha Duatre Rn 10/04/20 13:38:19 [facility] IntraOp General Case Weaving Instructor 1 Case Information OR Cysto 01 [facility] Case Level 1 Room Verified Yes Wound Class II - Clean-Contaminated Specialty Urology Anesthesia Type General ASA Class 3E Diagnosis Preop Diagnosis LEFT RENAL STONE Postop Same As Preop No Postop Diagnosis SEE MD POST OP NOTES Last Modified By: Neha Duarte Rn 10/04/20 13:41:52 [facility] IntraOp Implant Log Entry 1 Type Implant (Synthetic) Implant Log Implant Type Other Implant STENT URET BRAID + Identification [id number] Description Implant Quantity 1 Implant Site LEFT URETER Implant Semmes Identification Sci:Urology/Gynecology Motor Patrol Operator Name: Implant [id number] Identification Catalog Number Implant Expiration 03/25/23 Date Tissue Implant Last Modified By: Neha Duarte Rn 10/04/20 13:44:42 [facility] IntraOp Intraoperative Assessment Entry 1 Handoff [...] Modified By: Neha Duarte Rn 10/04/20 13:42:00 [facility] IntraOp Patient Positioning Entry 1 Procedure [...] Cysto Positioned By ANNABEL ZAMBRANO MD-URO, Neha Daurte Rn Position Verified Positioning Yes Verified by Anesthesia Positioning Yes Verified by Surgeon Last Modified By: Neha Duarte Rn 10/04/20 13:42:19 [facility] IntraOp Sign In Entry 1 Patient, [...] Modified By: Neha Duarte Rn 10/04/20 13:42:22 [facility] IntraOp Sign Out Entry 1 RN [...] Modified By: Neha Duarte Rn 10/04/20 13:42:31 [facility] IntraOp Skin Prep Entry 1 Procedure Ureteroscopy(Left) Prescribed N/A Pre-Surgical Prep Completed Prep Area genitalia Intraop Prep Integumentary WDL Assessment WDL Prep Agents Betadine solution Prep by Mendel Borrego RN Hair Removal Methods No hair removal performed Last Modified By: Neha Duarte Rn 10/04/20 13:42:55 [facility] Intra Surgical Procedures Entry 1 Procedure Ureteroscopy Modifiers Left Additional URETEROSCOPY WITH LASER Procedure LEFT Description Primary Procedure Yes Primary Surgeon ANNABEL ZAMBRANO MD-URO Start 10/04/20 13:16:00 Stop 10/04/20 13:47:00 Anesthesia Type General Specialty Urology Wound Class II - Clean-Contaminated Last Modified By: Neha Duarte Rn 10/04/20 13:48:02 [facility] Intra Surgical Procedures Audit 10/04/20 13:48:02 Tassel Clipper: [id number] Modifier: [id number] <+> 1 Stop [facility] IntraOP Time Out Entry 1 Procedure [...] Correct Billing Electronically signed by [place] [facility] Conversion [employer] Cerner at 08/23/2022 11:10 AM CDT documented in this encounter Plan of Treatment Not on file documented as of this encounter Visit Diagnoses Not on filedocumented in this encounter Care Teams Technology Teacher Relationship Specialty Start Date End Date Salima Gonzáles, [address] [facility] [address] [place] [address] PCP - General Family Medicine 02/09/23 documented as of this encounter
--- OUTSIDE RECORDS SUMMARY | 2025-04-05 09:51 | XMS_ITS | Encounter Summary ---
Author Organization [employer] ([place], [place], [place], [place], [place]) Address [address] [place] [address] Care Team Providers Care Intensive Care Ambulance Paramedic Name Role Phone Salima Gonzáles Primary Care Provider [phone] Encounter Details Date Type Department Care Team (Late st Contact Info) Description 10/08/2019 Transcribed Document [facility] [place] [address] [place] [address] ProviderQuincy MD [address] [place], [place] [address] Social History Tobacco Use Types Packs/Day Years [...] Kate MD - 10/08/2019 9:47 AM CDT [facility] Endo IntraOp Summary Primary Physician: WARREN MANRIQUE MD Finalized Date/Time: 10/08/19 10:06:04 Pt. Name: AMBIKA PIERRE/Sex: 1965 Female Med Rec #: [id number] Physician: WARREN MANRIQUE MD Financial #: [id number] Pt. Type: O Room/Bed: / Admit/Disch: 10/08/19 08:47:00 - Institution: [facility] Endo - Case Attendance Entry 1 Entry 2 Entry 3 Case Attendee HILARIA, MD ARON KELLEY JEANNIE Thayer, Dena, DIANE Role Performed Surgeon/Proceduralist, Scrub, Fusion Analyst, First First Time In 10/08/19 09:38:00 10/08/19 [...] DAKOTA Amaya MD-ANS Role Performed Scrub, First JUNIOR LEGAL SECRETARY/Nurse Utility Tractor Operator Anesthesiologist of Record Time In 10/08/19 09:38:00 10/08/19 09:38:00 10/08/19 09:38:00 Time Out 10/08/19 10:06:00 10/08/19 10:06:00 10/08/19 10:06:00 Procedure Gastric Biopsy, Colon Gastric Biopsy, Colon Gastric Biopsy, Colon Biopsy Biopsy Biopsy Other Attendee Superficial Wound Closed By: Last Modified By: Elizabeth Anaya, Elizabeth Schilling, Elizabeth Schilling RN 10/08/19 10:03:23 10/08/19 10:03:23 10/08/19 10:03:23 [facility] Endo - Case Attendance Audit 10/08/19 10:03:23 Elevator Examiner: [id number] Modifier: [id number] 1 <+> Time Out 1 <*> Procedure [...] Procedure Gastric Biopsy, Colon Biopsy 10/08/19 10:02:21 Elevator Examiner: [id number] Modifier: [id number] 1 <*> Procedure Esophagogastroduodenoscopy, Colonoscopy, Gastric Biopsy 2 <*> Procedure Gastric Biopsy 3 <*> Procedure Gastric Biopsy 4 <*> Procedure Gastric Biopsy 5 <*> Procedure Gastric Biopsy 6 <*> Procedure Gastric Biopsy 10/08/19 09:50:05 Elevator Examiner: [id number] Modifier: [id number] 1 <*> Procedure Esophagogastroduodenoscopy, Colonoscopy <+> 2 Procedure <+> 3 Procedure <+> 4 Procedure <+> 5 Procedure <+> 6 Procedure 10/08/19 09:39:56 Elevator Examiner: [id number] Modifier: [id number] 1 <+> Time In 1 <*> Procedure Esophagogastroduodenoscopy, Colonoscopy <+> 2 Time In <+> 3 Time In <+> 4 Time In <+> 5 Time In <+> 6 Time In 10/08/19 09:31:42 Elevator Examiner: [id number] Modifier: [id number] <+> 2 Case Attendee <+> 2 Role Performed <+> 3 Case Attendee <+> 3 Role Performed <+> 4 Case Attendee <+> 4 Role Performed <+> 5 Case Attendee <+> 5 Role Performed <+> 6 Case Attendee <+> 6 Role Performed [facility] Endo - Case times Entry 1 Patient In Room Time 10/08/19 09:38:00 Out Room Time 10/08/19 10:06:00 Anesthesia Start Time 10/08/19 09:38:00 Stop Time 10/08/19 10:06:00 Surgery / Procedure Times Start Time 10/08/19 09:47:00 Stop Time 10/08/19 10:03:00 Last Modified By: Elizabeth Anaya RN 10/08/19 10:03:21 [facility] Endo - Case times Audit 10/08/19 10:03:21 Elevator Examiner: [id number] Modifier: [id number] <+> 1 Out Room Time <+> 1 Stop Time <+> 1 Stop Time 10/08/19 09:47:20 Elevator Examiner: [id number] Modifier: [id number] <+> 1 Start Time [facility] Endo - Cultures and Spec Summary Entry 1 Cultrures and Specimens Specimen Ordered: Yes Test(s) Routine/Path-Lab Requested/Final Disposition Last Modified By: Elizabeth Anaya RN 10/08/19 09:50:17 [facility] Endo - Delays Entry 1 Delay Reason No Delay Duration 0 Minute(s) Last Modified By: Elizabeth Anaya RN 10/08/19 09:32:22 [facility] Endo - Departure from OR Entry 1 Integumentary Assessment Integumentary WDL Assessment WDL Transfer/Handoff Transfer to PACU Phase I Handoff Method Bedside/Face to face Post-op Transport Stretcher/Gurney Via Patient Transport Claudia Dupree Crna Accompanied by Last Modified By: Elizabeth Anaya RN 10/08/19 09:32:45 [facility] Endo - Endoscopy Details Entry 1 Abdomen Procedure Soft, Non-Tender Assessment Procedure Abdomen 10/08/19 09:32:00 Assessment D/T Radio Frequency Ablation Abdominal Pressure Last Modified By: Elizabeth Anaya RN 10/08/19 09:32:34 [facility] Endo - Fire Risk Assessment Entry 1 Fire Info Surgical Site or 1- Yes Incision Above the Xyphoid Open O2 Source 1- Yes (Mask or Cannula) Available Ignition 1- Yes (ESU, Laser, Light Source) Fire Risk 3 Assessment Score Fire Score Fire Risk Yes Assessment Complete Fire Risk Elizabeth Anaya, stereoplotter operator Verified By Fire Risk 10/08/19 09:32:00 Assessment Verified Date/Time Fire Risk High Risk Protocol Yes Implemented Standard Fire Yes Safety Precautions Followed Last Modified By: Elizabeth Anaya RN 10/08/19 09:33:30 [facility] Endo - Fire Risk Assessment Audit 10/08/19 09:33:30 Elevator Examiner: [id number] Modifier: [id number] <+> 1 Fire Risk Assessment Complete [facility] Endo - General Case Camp Manager 1 Case Information OR Endo 03 [facility] Case Level 1 Room Verified Yes Wound Class III - Contaminated Specialty SN Gastroenterology Anesthesia Type General ASA Class 4 Diagnosis Preop Diagnosis dyspepsia, change in bowel habits Postop Same As Preop No Postop Diagnosis Chronic gastritis, history gastric bypass Last Modified By: Elizabeth Anaya RN 10/08/19 09:52:07 [facility] Endo - General Case Data Audit 10/08/19 09:52:07 Elevator Examiner: [id number] Modifier: [id number] 1 <*> Postop Same As Preop Yes 1 <*> Postop Diagnosis dyspepsia, change in bowel habits 10/08/19 09:43:44 Elevator Examiner: [id number] Modifier: [id number] 1 <*> Preop Diagnosis R19.7 R10.9 1 <*> Postop Diagnosis R19.7 R10.9 [facility] Endo - Intraoperative Assessment Entry 1 Valid History / Yes Physical in Chart Preoperative Yes Checklist Reviewed/Evaluated Patient is Latex No Sensitive Level of WDL Consciousness (WDL = Alert, Oriented to Person, Place, and Time) Last Modified By: Elizabeth Anaya RN 10/08/19 09:33:43 [facility] Endo - Intraoperative Equipment Entry 1 Equipment Intraop Monitoring Electrocardiogram Three lead placement (ECG) Electrode Placement Blood Pressure Arm, left upper Location Pulse Oximeter Hand, right Probe Site Antiembolic Devices Scopes Flexible Endoscopes Gastroscope Used Scope Serial E O Number/Identificatio n Number Photo/Video Documentation Photo Yes Video No Last Modified By: Elizabeth Anaya RN 10/08/19 09:43:26 [facility] Endo - Patient Positioning Entry 1 [...] Modified By: Elizabeth Anaya RN 10/08/19 10:02:22 [facility] Endo - Patient Positioning Audit 10/08/19 10:02:22 Elevator Examiner: [id number] Modifier: [id number] 1 <*> Procedure Esophagogastroduodenoscopy, Gastric Biopsy 10/08/19 09:50:05 Elevator Examiner: [id number] Modifier: [id number] 1 <*> Procedure Esophagogastroduodenoscopy [facility] Endo - Sign In Entry 1 Patient, Site, Yes Procedure Identified Surgical Consent Yes Confirmed Surgical Site N/A Marked by person performing procedure Airway Hypothermia Risk No Warming Measures No Taken Last Modified By: Elizabeth Anaya RN 10/08/19 09:34:14 [facility] Endo - Sign Out Entry 1 [...] Modified By: Elizabeth Anaya RN 10/08/19 10:04:03 [facility] Endo - Surgical Procedures Entry 1 [...] Modified By: Elizabeth Anaya RN 10/08/19 10:03:34 [facility] Endo - Surgical Procedures Audit 10/08/19 10:03:34 Elevator Examiner: [id number] Modifier: [id number] 2 <*> Procedure Colonoscopy 2 <+> Stop <+> 4 Stop 10/08/19 10:02:18 Elevator Examiner: [id number] Modifier: [id number] 2 <*> Procedure Colonoscopy 2 <*> Start 10/08/19 09:47:00 2 <+> Physician States Cecum Reached <+> 4 Procedure <+> 4 Primary Procedure <+> 4 Primary Surgeon <+> 4 Specialty <+> 4 Start <+> 4 Wound Class <+> 4 Anesthesia Type <+> 4 Additional Procedure Description <+> 4 Physician States Cecum Reached 10/08/19 09:51:41 Elevator Examiner: [id number] Modifier: [id number] 3 <*> Procedure Gastric Biopsy 3 <+> Stop 10/08/19 09:50:35 Elevator Examiner: [id number] Modifier: [id number] 1 <*> Procedure Esophagogastroduodenoscopy 1 <+> Stop 10/08/19 09:50:01 Elevator Examiner: [id number] Modifier: [id number] 1 <*> Procedure Esophagogastroduodenoscopy 1 <+> Start 1 <+> Additional Procedure Description <+> 2 Start <+> 3 Procedure <+> 3 Primary Procedure <+> 3 Primary Surgeon <+> 3 Specialty <+> 3 Start <+> 3 Wound Class <+> 3 Anesthesia Type <+> 3 Additional Procedure Description [facility] Endo - Time Out Entry 1 [...] Modified By: Elizabeth Anaya RN 10/08/19 10:02:22 [facility] Endo - Time Out Audit 10/08/19 10:02:22 Elevator Examiner: [id number] Modifier: [id number] 1 <*> Procedure to be Performed Esophagogastroduodenoscopy, Colonoscopy, Gastric Biopsy 10/08/19 09:50:06 Elevator Examiner: [id number] Modifier: [id number] 1 <*> Procedure to be Performed Esophagogastroduodenoscopy, Colonoscopy Case Comments <None> Finalized By: Elizabeth Anaya, RN Document Signatures Signed By: Elizabeth Anaya, RN 10/08/19 10:06 Electronically signed by [place] [facility] Conversion Metal Rolling Mill Operator Cerner at 08/23/2022 10:56 AM CDT documented in this encounter Plan of Treatment Not on file documented as of this encounter Visit Diagnoses Not on filedocumented in this encounter Care Teams Intensive Care Ambulance Paramedic Relationship Specialty Start Date End Date Salima Gonzáles, DO [address] [facility] [address] [place] [address] PCP - General Family Medicine 02/09/23 documented as of this encounter
--- OUTSIDE RECORDS SUMMARY | 2025-04-05 09:51 | XMS_ITS | Clinical Summary ---
Author Organization Healthcare Address [address] [place] [address] Care Team Providers Care Benefits Analyst Name Role Phone Salima Gonzáles DO Primary Care Provider [phone] Allergies Active Allergy Reactions Criticality Noted Date [...] Active Problems Problem Noted Date Diagnosed Date HTN (hypertension) 05/01/2021 Overview (05/01/2021): Restart home meds as appropriate Obesity 05/01/2021 Overview (05/01/2021): Could complicate care Fibromyalgia 05/01/2021 Overview (05/01/2021): could complicate care Closed fracture of lower end of left femur with routine healing 04/30/2021 Overview (05/02/2021): Ortho following ORIF of left femur fracture on 05/01 WBAT LLE Follow up with Dr. Flynn 05/17/21 Diabetes 04/30/2021 Overview (05/02/2021): Sliding-scale insulin CC2 diet Monitor FS Elevated LFTs 04/30/2021 Overview (05/04/2021): Stable abdominal exam Labs down trending Resolved Problems Problem Noted Date Diagnosed Date Resolved Date UTI (urinary tract infection) 05/05/2021 01/25/2025 Overview (05/05/2021): Levaquin x 3 days Fall 04/30/2021 01/25/2025 Overview (05/02/2021): Admit to trauma floor Multimodal pain control Lactic acidosis 04/30/2021 05/01/2021 Overview (04/30/2021): IVF [...] SDOH Screenings 1982 [facility]-Adult SDOH Screenings 1982 [facility]-Pap Smear 1985 [facility]-Cervical Cancer Screening 1994 [facility]-HPV/Cotest 1994 CT Colonography 2009 Colonoscopy 2009 FIT-DNA 2009 FIT 2009 FOBT 2009 Sigmoidoscopy 2009 [facility]-Colorectal Cancer Screening 2009 [facility]-Breast Cancer Screening 2014 [facility]-Zoster Vaccines (1 of 2) 2014 [facility]-Diabetes: Hemoglobin A1C 10/29/2021 05/01/2021 [facility]-RSV Vaccine: 60+ Years or (1 - Risk 60-74 years 1-dose series) 2024 CHQ-SYHAY-22 Vaccine (5 - 2024- season) 2025 02/23/2022, 01/26/2021, 06/09/2020, Additional history exists [facility]-Influenza [...] this topic Medical Devices Implanted Type Area Teacher Counselor Device Identifier Shelf Expiration Date Model / Serial / Lot Nail Femoral Retro T2 Alpha 11mm X 340mm - [id number] Implanted:Qty: 1 on 05/01/2021 by Crow Lockwood MD at [facility] Nail Left: Femur [employer] ([facility])-[id number] 10/04/2030 2339-1134S / / [id number] Screw Locking T2 D5xl80 - [id number] Implanted:Qty: 1 on 05/01/2021 by Bebeto Flynn MD at [facility] Screw Left: Femur [employer] ([facility])-[id number] 09/03/2030 2360-5080S / / [id number] Screw Locking T2 D5xl60 - [id number] Implanted:Qty: 1 on 05/01/2021 by Bebeto Flynn MD at [facility] Screw Left: Femur [employer] ([facility])-[id number] 02/03/2031 2360-5060S / / [id number] Screw Locking T2 D5xl50 - [id number] Implanted:Qty: 1 on 05/01/2021 by Bebeto Flynn MD at [facility] Screw Left: Femur [employer] ([facility])-[id number] 02/03/2031 2360-5050S / / [id number] Screw Locking T2 D5xl75 - [id number] Implanted:Qty: 1 on 05/01/2021 by Bebeto Flynn MD at [facility] Screw Left: Femur [employer] ([facility])-[id number] 01/04/2031 2360-5075S / / [id number] Screw Locking T2 D5xl55 - [id number] Implanted:Qty: 1 on 05/01/2021 by Bebeto Flynn MD at [facility] Screw Left: Femur [employer] ([facility])-[id number] 12/04/2030 2360-5055S / / [id number] Screw Locking T2 D5x32.5 - [id number] Implanted:Qty: 1 on 05/01/2021 by Bebeto Flynn MD at [facility] Screw Left: Femur [employer] ([facility])-[id number] 01/04/2031 2360-5032S / / [id number] Screw Locking T2 D5x37.5 - [id number] Implanted:Qty: 1 on 05/01/2021 by Bebeto Flynn MD at [facility] Screw Left: Femur [employer] ([facility])-[id number] 01/04/2031 2360-5037S / / [id number] Procedures Procedure Name Priority Date/Time Associated Diagnosis [...] Adults <6.0% Children and Adolescents <7.5% Source: [place] [employer]. Standards of medical care in diabetes,2017. Diabetes Care.2017:40 (suppl 1):S1-S135. HbA1c assay performed by an ion-exchange chromatography method that is certified traceable to the DCCT. us Drew Matos MD LAB BLOOD ORDERABLES Final Re sult [facility] [address] [place] [address] from Last 3 Months or Most Recently Relevant to Health Maintenance Insurance [facility] MEDICARE Advance Directives * Full Code (Latest Code Status on File) Date Activated Date Inactivated Comments 04/30/2021 4:10 PM 05/07/2021 11:19 AM Question Answer Comments Patient has decision-making capacity? Yes Care Teams Benefits Analyst Relationship Specialty Start Date End Date Salima Gonzáles DO [address] [place] [address] PCP - General 09/17/20
--- OUTSIDE RECORDS SUMMARY | 2025-04-05 09:51 | XMS_ITS | Encounter Summary ---
Author Organization [employer] ([place], [place], [place], [place], [place]) Address [address] [place] [address] Care Team Providers Care Procurement Specialist Name Role Phone Salima Gonzáles Primary Care Provider [phone] Encounter Details Date Type Department Care Team (Late st Contact Info) Description 10/04/2020 Transcribed Document [facility] [place] [address] [place] [address] ProviderQuincy MD [address] [place], [place] [id number] Social History Tobacco Use Types Packs/Day Years [...] Kate MD - 10/04/2020 1:16 PM CDT [facility] Main OR PACU Summary Primary Physician: ANNABEL ZAMBRANO MD-URO Finalized Date/Time: 10/04/20 15:07:54 Pt. Name: AMBIKA PIERRE/Sex: 1965 Female Med Rec #: [id number] Physician: SUREKHA ARGUELLES MD Financial #: [id number] Pt. Type: I Room/Bed: [facility]/1 Admit/Disch: 10/03/20 18:06:00 - Institution: [facility] Main OR PACU I Case Times Entry 1 In PACU I 10/04/20 13:58:00 Ready for PACU 10/04/20 14:40:00 Discharge Discharge from PACU 10/04/20 14:40:00 I Last Modified By: ESPERANZA LAWRENCE RN 10/04/20 15:07:45 Finalized By: ESPERANZA LAWRENCE, RN Document Signatures Signed By: ESPERANZA LAWRENCE RN 10/04/20 15:[address] [place] [facility] Conversion Logging Worker Cerner at 08/23/2022 11:13 AM CDT documented in this encounter Plan of Treatment Not on file documented as of this encounter Visit Diagnoses Not on filedocumented in this encounter Care Teams Procurement Specialist Relationship Specialty Start Date End Date Salima Gonzáles, [address] [address] PCP - General Family Medicine 02/09/23 documented as of this encounter
--- OUTSIDE RECORDS SUMMARY | 2025-04-05 09:51 | XMS_ITS | Encounter Summary ---
Author Organization [employer] ([place], [place], [place], [place], [place]) Address [address] [place] [address] Care Team Providers Care Handicapped Teacher Name Role Phone Salima Gonzáles DO Primary Care Provider [phone] Encounter Details Date Type Department Care Team (Late st Contact Info) Description 10/05/2020 Transcribed Document [facility] Family Medicine [address] [place] [address] ProviderQuincy MD [address] [place], [place] [phone] Social History Tobacco Use Types Packs/Day Years Used Date Smoking Tobacco: Never Assessed Comments Unknown Sex and Gender Information Value Date Recorded Sex Assigned at Not on file Legal Sex Female 2:54 PM CDT Gender Identity Not on file Sexual Orientation Not on file documented as of this encounter Miscellaneous Notes * Cerner Conversion Note - Historical ProviderMD - 10/05/2020 2:28 PM CDT Stroke/Warfarin Instructions Entered On: 10/05/2020 14:28 EDT Performed On: 10/05/2020 14:28 EDT by Jocelyn Bates Virtual RN Stroke/Warfarin Instructions Stroke/TIA Discharge Ins : N/A Warfarin Discharge Ins : N/A Jocelyn Bates Virtual RN - 10/05/2020 14:28 EDT Electronically signed by Nuzhat Barahona Conversion Exercise Physiology Professor Cerner at 08/23/2022 11:04 AM CDT documented in this encounter Plan of Treatment Not on file documented as of this encounter Visit Diagnoses Not on filedocumented in this encounter Care Teams Handicapped Teacher Relationship Specialty Start Date End Date Salima Gonzáles, DO [address] [place] [address] PCP - General Family Medicine 02/09/23 documented as of this encounter
--- OUTSIDE RECORDS SUMMARY | 2025-04-05 09:51 | XMS_ITS | Encounter Summary ---
Author Organization [employer] ([place], [place], [place], [place], [place]) Address [address] [place] [address] Care Team Providers Care Kiln Head House Operator Name Role Phone Salima Gonzáles Tate SWANN Primary Care Provider [phone] Encounter Details Date Type Department Care Team (Late st Contact Info) Description 10/04/2020 Transcribed Document [facility] [place] [address] [place] [address] ProviderQuincy MD [address] [place] [phone] Social History Tobacco Use Types Packs/Day Years [...] left the operating room in satisfactory condition. /[id number] Gatito Menendez MD [facility]/AQ / [facility] / MODL /[id number] Electronically signed by [place], [facility] Conversion Forest Resource Specialist Cerner at 08/23/2022 10:57 AM CDT documented in this encounter Plan of Treatment Not on file documented as of this encounter Visit Diagnoses Not on filedocumented in this encounter Care Teams Kiln Head House Operator Relationship Specialty Start Date End Date Salima Gonzáles, DO [address] [address] PCP - General Family Medicine 02/09/23 documented as of this encounter
--- OUTSIDE RECORDS SUMMARY | 2025-04-05 09:51 | XMS_ITS | Encounter Summary ---
Author Organization [employer] ([place], [place], [place], [place], [place]) Address [address] [place] [address] Care Team Providers Care Plaster Model And Mold Maker Name Role Phone Salima Gonzáles Primary Care Provider [phone] Encounter Details Date Type Department Care Team (Late st Contact Info) Description 10/08/2019 Transcribed Document [facility] [place] [address] [place] [address] ProviderQuincy MD [address] [place] [address] Social History Tobacco Use Types Packs/Day Years [...] Kate MD - 10/08/2019 9:47 AM CDT [facility] Endo PACU Summary Primary Physician: WARREN MANRIQUE MD Finalized Date/Time: 10/08/19 10:47:05 Pt. Name: AMBIKA PIERRE/Sex: 1965 Female Med Rec #: [id number] Physician: WARREN MANRIQUE MD Financial #: [id number] Pt. Type: O Room/Bed: / Admit/Disch: 10/08/19 08:47:00 - Institution: [facility] PACU Case Times Entry 1 In PACU I 10/08/19 10:09:00 Ready for PACU 10/08/19 10:42:00 Discharge Discharge from PACU 10/08/19 10:45:00 I Last Modified By: Yasmine Al RN 10/08/19 10:43:05 [facility] Endo PACU Case Times Audit 10/08/19 10:45:09 Biller: [id number] Modifier: [id number] <+> 1 Discharge from PACU I Finalized By: Yasmine lA RN Document Signatures Signed By: Yasmine Al RN 10/08/19 10:[address] [place] [facility] Conversion Odd Piece Checker Cerner at 08/23/2022 10:59 AM CDT documented in this encounter Plan of Treatment Not on file documented as of this encounter Visit Diagnoses Not on filedocumented in this encounter Care Teams Plaster Model And Mold Maker Relationship Specialty Start Date End Date Sailma Gonzáles DO 8 [facility] [address] [place] [address] PCP - General Family Medicine 02/09/23 documented as of this encounter
--- OUTSIDE RECORDS SUMMARY | 2025-04-05 09:51 | XMS_ITS | Encounter Summary ---
Author Organization [employer] ([place], [place], [place], [place], [place]) Address [address] [place] [address] Care Team Providers Care Java Tech Name Role Phone Eliecer Salima Tate SWANN Primary Care Provider Encounter Details Date Type Department Care Team (Late st Contact Info) Description 10/04/2020 Transcribed Document [facility] [place] [address] [place] [address] ProviderQuincy MD [address] [place], [place] [address] Social History Tobacco Use Types Packs/Day Years [...] needed N.p.o. currently, urology consultation pending Tamsulosin #[id number]-[id number] diabetes Hold home medications Cover with SSI [...] Lymph # 2.58 x10(3)/uL 10/03/2020 19:07 EDT [place] % 8.5 % 10/04/2020 06:54 EDT [place] % 7.7 % 10/03/2020 19:07 EDT [place] # 0.47 K/uL 10/04/2020 06:54 EDT [place] # 0.56 K/uL 10/03/2020 19:07 EDT [facility] [...] 10/04/2020 06:54 EDT Electronically signed by [place], [facility] Conversion Field Evidence Technician Cerner at 08/23/2022 11:00 AM CDT documented in this encounter Plan of Treatment Not on file documented as of this encounter Visit Diagnoses Not on filedocumented in this encounter Care Teams Java Tech Relationship Specialty Start Date End Date Salima Gonzáles DO [address] [address] PCP - General Family Medicine 02/09/23 documented as of this encounter
--- OUTSIDE RECORDS SUMMARY | 2025-04-05 09:51 | XMS_ITS | Encounter Summary ---
Author Organization [employer] ([place], [place], [place], [place], [place]) Address [address] [place] [address] Care Team Providers Care Cardiology Tech Name Role Phone Eliecer Salimajovanni Ybarra DO Primary Care Provider [phone] Encounter Details Date Type Department Care Team (Late st Contact Info) Description 10/05/2020 Transcribed Document [facility] [place] [address] [place] [address] ProviderQuincy MD [address] [place], [place] [id number] Social History Tobacco Use Types Packs/Day Years Used Date Smoking Tobacco: Never Assessed Comments Unknown Sex and Gender Information Value Date Recorded Sex Assigned at Not on file Legal Sex Female 2:54 PM CDT Gender Identity Not on file Sexual Orientation Not on file documented as of this encounter Miscellaneous Notes * [employer]ner Conversion Note - Quincy ProviderMD - 10/05/2020 2:27 PM CDT Patient Education [...] these instructions at home: Medicines ??? Take aahc-aem-jdnzlfw and prescription medicines only as told by [...] provider. Document Revised: 09/09/2019 Document Reviewed: 09/09/2019 [employer] ([employer]) Patient Education ? 2019 [employer] ([employer] Ureteroscopy Ureteroscopy is a procedure to [...] including vitamins, herbs, eye drops, creams, and goya-zty-edxwfez medicines. ??? Any problems you or family [...] provider. Document Revised: 04/05/2018 Document Reviewed: 02/02/2017 [employer] [facility] ([employer]) Patient Education ? 2020 [employer] Dietary Guidelines to Help Prevent Kidney Stones [...] Rhubarb. ? Beets. ? Potato chips and hungarian fries. ? Nuts. ??? If you regularly take a diuretic medicine, make sure to eat at least 1?2 fruits or vegetables high in potassium each day. These include: ? Avocado. ? Banana. ? [place], prune, carrot, or tomato juice. ? Baked [...] Casseroles. Pizza. Lasagna. Frozen meals. Potato chips. Malaysian fries. Summary ??? You can reduce your [...] provider. Document Revised: 08/13/2019 Document Reviewed: 04/03/2017 [employer] [facility] ([employer]) Patient Education ? 2019 [employer] documented in this encounter Plan of Treatment Not on file documented as of this encounter Visit Diagnoses Not on filedocumented in this encounter Care Teams Cardiology Tech Relationship Specialty Start Date End Date Salima Gonzáles, [address] [phone] PCP - General Family Medicine 02/09/23 documented as of this encounter
--- OUTSIDE RECORDS SUMMARY | 2025-04-05 09:51 | XMS_ITS | Encounter Summary ---
Author Organization [employer] ([place], [place], [place], [place], [place]) Address [address] [place] [address] Care Team Providers Care It Service Delivery Manager Name Role Phone Salima Mi DO Primary Care Provider [phone] Encounter Details Date Type Department Care Team (Late st Contact Info) Description 10/05/2020 Transcribed Document [facility] [place] [address] [place] [address] ProviderQuincy MD [address] [place] [id number] Social History Tobacco Use Types Packs/Day [...] Kate MD - 10/05/2020 4:12 PM CDT [facility] [place] [address] AMBIKA PIERRE :1965 Visit Time:10/03/2020 [...] instructions with you. Where: [address] [place] [address]- Follow Up with ANNABEL ZAMBRANO MD-URO When Within 3 months Comments For kidney stone follow up. Call for follow up appointment. Bring discharge instructions with you. Bring Ins Card, Photo ID, Ins Co-pay. Where: [address] [facility] [address] [place] [address]- Medications What How Much When Instructions Next Dose pseudoePHEDrine (Sudafed 30 mg oral tablet) 1 Tablet(s) Oral Every 6 Hours as needed for Congestion Pickup at [facility] as needed montelukast (Singulair [...] sitagliptin (Januvia) 100mg daily tomorrow Pharmacy Information [facility]: [address] [place] [address] [phone] Take your medications faithfully. Do NOT skip [...] these instructions at home: Medicines ??? Take mrea-lia-umsxwvl and prescription medicines only as told by [...] provider. Document Revised: 09/09/2019 Document Reviewed: 09/09/2019 [employer] Patient Education ?? 2020 [employer] Ureteroscopy Ureteroscopy is a procedure to [...] including vitamins, herbs, eye drops, creams, and bmzo-xgn-vsaagdi medicines. ??? Any problems you or family [...] provider. Document Revised: 04/05/2018 Document Reviewed: 02/02/2017 [employer] Patient Education ?? 2020 [employer]. Dietary Guidelines to Help Prevent Kidney Stones [...] Rhubarb. ? Beets. ? Potato chips and slovak fries. ? Nuts. ??? If you regularly take a diuretic medicine, make sure to eat at least 1???2 fruits or vegetables high in potassium each day. These include: ? Avocado. ? Banana. ? [place], prune, carrot, or tomato juice. ? Baked [...] Casseroles. Pizza. Lasagna. Frozen meals. Potato chips. Kiswahili fries. Summary ??? You can reduce your [...] provider. Document Revised: 08/13/2019 Document Reviewed: 04/03/2017 [employer] Patient Education ?? 2019 [employer]. pseudoephedrine (SALAZAR moralez ee FED rin) Chlor [...] from your inner ears, called the eustachian (xzt-CQBY-spds) tubes. Pseudoephedrine may also be used for [...] may report side effects to FDA at 7-358-AHN-5719. What other drugs will affect pseudoephedrine? Other drugs may interact with pseudoephedrine, including prescription and zssr-cij-imtfazr medicines, vitamins, and herbal products. Tell each [...] to ensure that the information provided by [employer]. ('[employer]') is accurate, up-to-date, and complete, but no guarantee is made to that effect. Drug information contained herein may be time sensitive. [employer] information has been compiled for use by healthcare practitioners and consumers in the [place] and therefore [employer] does not warrant that uses outside of the [place] are appropriate, unless specifically indicated otherwise. [employer]'s drug information does not endorse drugs, diagnose patients or recommend therapy. [employer] drug information is an informational resource designed [...] effective or appropriate for any given patient. [facility] does not assume any responsibility for any aspect of healthcare administered with the aid of information [facility] provides. The information contained herein is not intended to cover all possible uses, directions, precautions, warnings, drug interactions, allergic reactions, or adverse effects. If you have questions about the drugs you are taking, check with your doctor, nurse or pharmacist. Copyright 4386-9051 [facility]. Version: 7.03. Revision Date: 06/07/2015. Emergency Awareness [...] Assistance with quitting is available by contacting 8-746-CWCS-NOW. This is a free resource providing counseling, [...] range between ( 0.0 and 7.0 ) Rock #: 0.47 K/uL -- Normal range between ( 0.16 and 1.00 ) Eos #: 0.09 x10(3)/uL -- Normal range between ( 0.00 and 0.80 ) Rock %: 8.5 % -- Normal range between [...] between ( 9.2 and 12.0 ) Patient Name:JACOB VASQUEZ AMBIKA BENSON I have received and understand this information and was given the opportunity to ask questions. Patient/Doctor Of Podiatric Medicine Name: Patient/Doctor Of Podiatric Medicine Signature: Relationship to Patient: Clinician/Hospital Doctor Of Podiatric Medicine Signature: Date: documented in this encounter Plan of Treatment Not on file documented as of this encounter Visit Diagnoses Not on filedocumented in this encounter Care Teams It Service Delivery Manager Relationship Specialty Start Date End Date Salima Mi DO [address] Noreen [address] [facility] [address] [place] [phone] PCP - General Family Medicine 02/09/23 documented as of this encounter
--- OUTSIDE RECORDS SUMMARY | 2025-04-05 09:51 | XMS_ITS | Encounter Summary ---
Author Organization [employer] ([place], [place], [place], [place], [place]) Address [address] [place] [address] Care Team Providers Care Automobile Tester Name Role Phone Salima Gonzáles DO Primary Care Provider [phone] Encounter Details Date Type Department Care Team (Late st Contact Info) Description 10/05/2020 Transcribed Document [facility] [place] [address] [place] [address] ProviderQuincy MD [address] [place], [place] [phone] Social History Tobacco Use Types Packs/Day Years [...] on filedocumented in this encounter Care Teams Automobile Tester Relationship Specialty Start Date End Date Salima Gonzáles DO [address] [phone] PCP - General Family Medicine 02/09/23 documented as of this encounter
--- OUTSIDE RECORDS SUMMARY | 2025-04-05 09:51 | XMS_ITS | Encounter Summary ---
Author Organization [employer] ([place], [place], [place], [place], [place]) Address [address] [place] [address] Care Team Providers Care Clinical Rehab Liaison Name Role Phone Salima Gonzáles Primary Care Provider [phone] Encounter Details Date Type Department Care Team (Late st Contact Info) Description 10/08/2019 Transcribed Document [facility] [place] [address] [place] [address] ProviderQuincy MD [address] [place], [place] [phone] Social History Tobacco Use Types Packs/Day Years [...] Kate MD - 10/08/2019 9:30 AM CDT [facility] Cristiana PreOp Summary Primary Physician: WARREN MANRIQUE MD Finalized Date/Time: 10/08/19 09:35:21 Pt. Name: AMBIKA PIERRE/Sex: 1965 Female Med Rec #: [id number] Physician: WARREN MANRIQUE MD Financial #: [id number] Pt. Type: O Room/Bed: / Admit/Disch: 10/08/19 08:47:00 - Institution: [facility] Cristiana PreOp Case Times Entry 1 In Preop 10/08/19 09:08:00 Ready for Holding n/a Room Patient Ready for n/a Surgery Patient Out of Preop 10/08/19 09:33:00 Patient Out of n/a Holding Room Last Modified By: Whitney Huynh Rn 10/08/19 09:35:13 [facility] Endo PreOp Case Times Audit 10/08/19 09:35:13 Banquet Lead: STUART Modifier: HEATHERLAWRENCE <+> 1 Patient Out of Preop Finalized By: Whitney Huynh Rn Document Signatures Signed By: Whitney Huynh Rn 10/08/19 09:35 Electronically signed by [place] [facility] Conversion Production Department Supervisor Cerner at 08/23/2022 10:54 AM CDT documented in this encounter Plan of Treatment Not on file documented as of this encounter Visit Diagnoses Not on filedocumented in this encounter Care Teams Clinical Rehab Liaison Relationship Specialty Start Date End Date Salima Gonzáles, 8 [facility] [address] [place] [phone] PCP - General Family Medicine 02/09/23 documented as of this encounter
--- OUTSIDE RECORDS SUMMARY | 2025-04-05 09:51 | XMS_ITS | Continuity of Care Document ---
Author Organization [facility] [place] [address] Care Team Providers Care Hot Car Charger Name Role Phone Salima Gonzáles MD Primary Care Provider [phone] Encounters Date Type Department Care Team Description 04/09/2024 6:26 PM EST - 04/11/2024 1:08 PM EST Hospital Encounter [facility] 7W Med/Surg [address] [place] [phone] Carlos Cannon MD Abreu, Cristy, MD Tammo, Sami, MD Holt, Tracy R, BIRD TRAPPER Intractable pain (Primary Dx); Abdominal pain, unspecified abdominal location; Epigastric pain Discharge Disposition: Home or Self Care 04/10/2024 1:24 PM EST Anesthesia Event [facility] Endoscopy [address] [place] [address] Clementina Mcadams CRNA Robbins, Lindsey, APRN 04/10/2024 12:30 PM EST - 04/10/2024 1:00 PM EST Surgery [facility] Endoscopy [address] [place] [phone] Salima Perla, DO EGD WITH BIOPSY 02/12/2024 10:18 AM EDT - 02/12/2024 11:59 PM EDT Hospital Encounter [facility] Radiology [address] [place] [address] Patrick Cole MD Periumbilical pain Discharge Disposition: Home or Self Care 02/12/2024 12:10 PM EDT Follow-Up [facility] [address] [place] [address] Patrick Cole MD Bariatric surgery status (Primary Dx); Class 3 severe obesity due to excess calories with serious comorbidity and body mass index (BMI) of 45.0 to 49.9 in adult 02/05/2024 2:20 PM EDT Follow-Up [facility] [address] [place] [address] Patrick Cole MD Bariatric surgery status (Primary Dx); Class 3 severe obesity due to excess calories with serious comorbidity and body mass index (BMI) of 45.0 to 49.9 in adult; Primary hypertension; Periumbilical pain 11/02/2021 7:30 PM EDT - 11/07/2021 3:04 PM EDT Hospital Encounter [facility] 7W Med/Surg [address] [place] [phone] Forrest Garrison MD Small bowel obstruction due to postoperative adhesions (Primary Dx); Morbid obesity with BMI of 45.0-49.9, adult; Diabetes mellitus type 2 in obese; Hypothyroidism, unspecified type; Primary hypertension; SBO (small bowel obstruction) Discharge Disposition: Home or Self Care 11/04/2021 11:38 AM EDT Anesthesia Event [facility] Periop Services [address] [place] [phone] Jeremy Briscoe MD Carpenter, Amanda, CRNA 11/04/2021 11:25 AM EDT - 11/04/2021 1:35 PM EDT Surgery [facility] Periop Services [address] [place] [phone] Patrick Cole MD LAPAROSCOPIC ADHESIOLYSIS Allergies Active Allergy [...] Morbid obesity with BMI of 45.0-49.9, adult 10/07 Hypertension Type 2 diabetes mellitus with obesity COPD (chronic obstructive pulmonary disease) Hypothyroidism Former smoker Small bowel obstruction due to postoperative adh esions Family History Medical History Relation Comments Diabetes Father Hypertension Father Breast cancer Maternal Aunt Seizures Maternal Grandmother Stroke Maternal Grandmother Diabetes Mother Hypertension Mother Relation Status Comments Father Maternal Aunt Alive Maternal Grandmother Mother Social History Smoking Status as of 04/05/2025 Tobacco Use Types Packs/Day Years Used Date [...] on file Medical Devices Implanted Type Area Menagerie Superintendent Device Identifier Shelf Expiration Date Model / Serial / Lot Sealant [id number] - [id number] Implanted:Qty : 1 on 11/04/2021 by Patrick Cole MD at [facility] OTHER - IMPLANTS - OTHER N/A: Abdomen RODRIGUEZ 01/31/2023 [id number] / / [id number] Procedures Procedure Name Priority Date/Time Associated Diagnosis [...] of23 resultswithin the time period is included. Glucose Glucometer 52(L) 71 - 139 mg/dL 04/11/2024 11:11 AM EST [facility] Blood VENOUS BLOOD SPECIMEN / Unknown 04/11/2024 11:06 AM EST 04/11/2024 11:11 AM EST us Iris Staley BIRD TRAPPER LAB BLOOD ORDERABLES Final Res ult [facility] [address] [place] [address] * CBC w/Diff (04/11/2024 4:39 AM EST) Only the most recent of7 resultswithin the time period is included. Pathologist [facility] White Blood Cells 5.92 4.50 - 11.00 10*3/uL LAB DEVICE: SYMTX ConnectEX XN-10 04/11/2024 4:51 AM [facility] Red Blood Cells 4.30 4.00 - 5.20 10*6/uL LAB DEVICE: SYSMEX XN-10 04/11/2024 4:51 AM [facility] Hemoglobin 12.6 12.0 - 16.0 g/dL LAB DEVICE: SYSMEX XN-10 04/11/2024 4:51 AM [facility] Hematocrit 39.3 36.0 - 46.0 % LAB DEVICE: SYSMEX XN-10 04/11/2024 4:51 AM [facility] Mean Corpuscular Volume 91.4 80.0 - 100.0 fL LAB DEVICE: SYSMEX XN-10 04/11/2024 4:51 AM [facility] Mean Corpuscular Hemoglobin 29.3 26.0 - 34.0 pg LAB DEVICE: SYSMEX XN-10 04/11/2024 4:51 AM [facility] Mean Corpuscular Hemoglobin Concentration 32.1 31.0 - 37.0 g/dL LAB DEVICE: SYSMEX XN-10 04/11/2024 4:51 AM [facility] % Red Blood Cell Distribution Width 13.3 12.0 - 16.8 % LAB DEVICE: SYSMEX XN-10 04/11/2024 4:51 AM [facility] Platelet Count 275 140 - 440 10*3/uL LAB DEVICE: SYSMEX XN-10 04/11/2024 4:51 AM [facility] Mean Platelet Volume 9.7 8.4 - 12.4 fL LAB DEVICE: SYSMEX XN-10 04/11/2024 4:51 AM [facility] % Neutrophils 49.7 45.0 - 80.0 % LAB DEVICE: SYSMEX XN-10 04/11/2024 4:51 AM [facility] % Lymphocytes 39.4 15.0 - 50.0 % LAB DEVICE: SYSMEX XN-10 04/11/2024 4:51 AM [facility] % Monocytes 8.1 0.0 - 15.0 % LAB DEVICE: SYSMEX XN-10 04/11/2024 4:51 AM [facility] % Eosinophils 1.5 0.0 - 7.0 % LAB DEVICE: SYSMEX XN-10 04/11/2024 4:51 AM [facility] % Basophils 1.0 0.0 - 2.0 % LAB DEVICE: SYSMEX XN-10 04/11/2024 4:51 AM [facility] % Immature Granulocytes 0.3 0.0 - 1.0 % LAB DEVICE: SYSMEX XN-10 04/11/2024 4:51 AM [facility] % Nucleated RBCs 0 <=0 /100 WBCs LAB DEVICE: SYSMEX XN-10 04/11/2024 4:51 AM [facility] Absolute Neutrophil Count 2.94 2.00 - 8.80 10*3/uL LAB DEVICE: SYSMEX XN-10 04/11/2024 4:51 AM [facility] Absolute Lymphocytes 2.33 0.70 - 5.50 10*3/uL LAB DEVICE: SYSMEX XN-10 04/11/2024 4:51 AM [facility] Absolute Monocytes 0.48 0.00 - 1.70 10*3/uL LAB DEVICE: SYSMEX XN-10 04/11/2024 4:51 AM [facility] Absolute Eosinophils 0.09 0.00 - 0.80 10*3/uL LAB DEVICE: SYSMEX XN-10 04/11/2024 4:51 AM [facility] Absolute Basophils 0.06 0.00 - 0.20 10*3/uL LAB DEVICE: SYSMEX XN-10 04/11/2024 4:51 AM [facility] Absolute Immature Granulocytes 0.02 0.00 - 0.10 10*3/uL LAB DEVICE: SYSMEX XN-10 04/11/2024 4:51 AM [facility] Blood VENOUS BLOOD SPECIMEN / Unknown Venipuncture / Unknown 04/11/2024 4:39 AM EST 04/11/2024 4:45 AM EST Kelly Kelly MD LAB BLOOD ORDERABLES Final Resul t Performing Organization Address [facility] Co de Phone Number [place] [phone] * Magnesium (04/11/2024 4:39 AM EST) Only the most recent of3 resultswithin the time period is included. Magnesium 2.0 1.6 - 2.6 mg/dL 04/11/2024 5:11 AM [facility] Blood VENOUS BLOOD SPECIMEN / Unknown Venipuncture / Unknown 04/11/2024 4:39 AM EST 04/11/2024 4:45 AM EST Kelly Kelly MD LAB BLOOD ORDERABLES Final Resul t Performing Organization Address [facility] [place] [address] * (ABNORMAL) Comprehensive Metabolic Panel (CMP) (04/11/2024 4:39 AM EST) Only the most recent of5 resultswithin the time period is included. Sodium 142 136 - 145 mmol/L 04/11/2024 5:11 AM [facility] Comment:Excess protein and/o r lipids can falsely decrease sodium levels (pseudo hyponatremia). Potassium 4.1 3.5 - 5.1 mmol/L 04/11/2024 5:11 AM [facility] Comment:Falsely elevated pot assium can occur in patients with high WBC or platelet counts. Chloride 109(H) 98 - 107 mmol/L 04/11/2024 5:11 AM [facility] Comment:Falsely elevated chl oride levels can be seen in patients taking bromide containing medications. Carbon Dioxide 24 22 - 29 mmol/L 04/11/2024 5:11 AM [facility] Anion Gap 9 5 - 13 mmol/L 04/11/2024 5:11 AM [facility] Comment:Calculation: Na - (C l + CO2) Glucose, Random 76 71 - 99 mg/dL 04/11/2024 5:11 AM [facility] Blood Urea Nitrogen (BUN) 10 10 - 20 mg/dL 04/11/2024 5:11 AM [facility] Creatinine, Blood 0.93 0.55 - 1.02 mg/dL 04/11/2024 5:11 AM [facility] BUN/Creatinine Ratio 10.8 RATIO 04/11/2024 5:11 AM [facility] Estimated GFR (Cr) 71 >60 mL/min/1.7 3m2 04/11/2024 5:11 AM [facility] Comment:eGFR calculated base d on IDMS traceable, enzymatic creatinine method using the CKD-EPI 2020 equation. Total Protein 6.8 6.4 - 8.2 g/dL 04/11/2024 5:11 AM [facility] Albumin 3.7 3.5 - 5.2 g/dL 04/11/2024 5:11 AM [facility] Globulin 3.1 1.5 - 4.5 g/dL 04/11/2024 5:11 AM [facility] Albumin/Globulin Ratio 1.2 1.1 - 2.5 RATIO 04/11/2024 5:11 AM [facility] Calcium 9.1 8.4 - 10.2 mg/dL 04/11/2024 5:11 AM [facility] Total Bilirubin 0.9 0.2 - 1.2 mg/dL 04/11/2024 5:11 AM [facility] AST/SGOT 20 5 - 34 U/L 04/11/2024 5:11 AM [facility] ALT/SGPT 20 0 - 55 U/L 04/11/2024 5:11 AM [facility] Alkaline Phosphatase 72 40 - 150 U/L 04/11/2024 5:11 AM EST [facility] Blood VENOUS BLOOD SPECIMEN / Unknown Venipuncture / Unknown 04/11/2024 4:39 AM EST 04/11/2024 4:45 AM EST us Kelly Kelly MD LAB BLOOD ORDERABLES Final Resul t [facility] [address] [place] [phone] * CT High Resolution Chest WO Contrast (04/10/2024 4:32 PM EST) [facility] RAD WORKSTATION ID [id number] ID POWERSCRIBE Anatomical Region Laterality Modality Chest Computed Tomogra phy 04/10/2024 4:41 PM EST Narrative 04/10/2024 4:56 PM EST REVIEWING YOUR TEST RESULTS IN [facility] IS NOT A SUBSTITUTE FOR DISCUSSING THOSE RESULTS WITH YOUR HEALTH CARE PROVIDER. PLEASE CONTACT YOUR PROVIDER VIA [facility] TO DISCUSS ANY QUESTIONS OR CONCERNS YOU MAY HAVE REGARDING THESE TEST RESULTS. RADIOLOGY REPORT FACILITY: [facility] UNIT/AGE/GENDER: Saul IN AGE:58 Y SEX:F PATIENT NAME/: AMBIKA PRATT TURNER 1965 UNIT NUMBER: [id number] ACCESSION NUMBER: [id number] EXAMINATION: CT of the chest without contrast [...] - 04/10/2024 REVIEWING YOUR TEST RESULTS IN [facility] IS NOT A SUBSTITUTE FORDISCUSSING THOSE RESULTS WITH YOUR HEALTH CARE PROVIDER. PLEASE CONTACT YOUR PROVIDER [facility]IA [employer] TO DISCUSS ANY QUESTIONS ORCONCERNS YOU MAY HAVE REGARDING THESE TEST RESULTS. RADIOLOGY REPORT FACILITY: [facility] UNIT/AGE/GENDER: Saul IN AGE:58 Y SEX:F PATIENT NAME/: AMBIKA PRATT TURNER 1965 UNIT NUMBER: [id number] ACCESSION NUMBER: [id number] EXAMINATION: CT of the chest without contrast [...] Isiah Cornelius M.D.> 04/10/2024 1655 [id number] Joselyn Sanchez MD [facility] CT ORDERABLES Final Resu lt * Case request operating room: EGD (04/10/2024 1:40 PM EST) Narrative Procedure Note Salima Perla, DO - 04/10/2024 1:40 PM EST Patient Name: Ambika Pratt Procedure Date No Time: 04/10/2024 Date of : 1965 Gender: Female Attending MD: SALIMA PERLA MD, [id number] Procedure: Upper GI endoscopy Pre-op Diagnosis: Epigastric [...] Initiated On: 04/10/2024 12:37 PM Chikis Cole BIRD TRAPPER GENERAL SURGICAL ORDERABLES Final Result * Surgical Specimen: Gastric (04/10/2024 1:32 PM EST) Case Report Surgical Pathology Report Case: [id number] Authorizing Provider: Salima Perla DO Collected: 04/10/2024 1332 Ordering Location: [facility] Endoscopy Received: 04/10/2024 1501 Pathologist: David Oliver [...] time is between 6-72 hours. SEUN Li ([facility]), 04/10/2024 /am1 04/11/2024 11:29 AM EST [facility] Sign Out Location [facility] [address] [place] [address] 04/11/2024 11:29 AM EST [facility] Case Flag Normal Normal 04/11/2024 11:29 AM EST [facility] Tissue SPERMATOZOA SPECIMEN / Unknown 04/10/2024 1:32 PM EST 04/10/2024 3:01 PM EST Comment:Pre-op diagnosis: Epigastric pain [R10.13] us Salima Perla DO PATHOLOGY/CYTOLOGY ORDERA BLES Final Result [facility] [address] [place] [address] * XR Chest 1 Vw (04/10/2024 8:08 AM EST) [facility] RAD WORKSTATION ID [id number] ID POWERSCRIBE Anatomical Region Laterality Modality Chest [facility] Radiographic Imaging 04/10/2024 8:39 AM EST Narrative 04/10/2024 8:41 AM EST REVIEWING YOUR TEST RESULTS IN [facility] IS NOT A SUBSTITUTE FOR DISCUSSING THOSE RESULTS WITH YOUR HEALTH CARE PROVIDER. PLEASE CONTACT YOUR PROVIDER VIA [employer] TO DISCUSS ANY QUESTIONS OR CONCERNS YOU MAY HAVE REGARDING THESE TEST RESULTS. RADIOLOGY REPORT FACILITY: [facility] UNIT/AGE/GENDER: Lamar7A IN AGE:58 Y SEX:F PATIENT NAME/: AMBIKA PRATT TURNER 1965 UNIT NUMBER: [id number] ACCESSION NUMBER: [id number] EXAMINATION: XR CHEST 1 VW HISTORY: possible [...] - 04/10/2024 REVIEWING YOUR TEST RESULTS IN [facility] IS NOT A SUBSTITUTE FORDISCUSSING THOSE RESULTS WITH YOUR HEALTH CARE PROVIDER. PLEASE CONTACT YOUR PROVIDER VIA [employer] TO DISCUSS ANY QUESTIONS ORCONCERNS YOU MAY HAVE REGARDING THESE TEST RESULTS. RADIOLOGY REPORT FACILITY: [facility] UNIT/AGE/GENDER: Lamar7A IN AGE:58 Y SEX:F PATIENT NAME/: AMBIKA PRATT TURNER 1965 UNIT NUMBER: [id number] ACCESSION NUMBER: [id number] EXAMINATION: XR CHEST 1 VW HISTORY: possible [...] * (ABNORMAL) Procalcitonin (04/10/2024 6:11 AM EST) Pathologist [facility] Procalcitonin 0.03(L) 0.10 - 0.50 ng/mL 04/10/2024 7:11 AM EST [facility] Blood VENOUS BLOOD SPECIMEN / Unknown Venipuncture / Unknown 04/10/2024 6:11 AM EST 04/10/2024 6:29 AM EST Lurdes Mathews APRN LAB BLOOD ORDERABLES Final Res ult Performing Organization Address City/State/[facility] Co de Phone Number [facility] [address] [place] [address] * Hemoglobin A1C (04/10/2024 2:39 AM EST) Only the most recent of2 resultswithin the time period is included. Pathologist [facility] Hemoglobin A1C 5.3 4.3 - 5.6 % LAB DEVICE: Five9 D100 04/10/2024 6:23 PM EST [facility] [...] increased HbA1c test results. us Iris Staley BIRD TRAPPER LAB BLOOD ORDERABLES Final Res ult [facility] [address] [place] [address] * CT Angio Abdomen Pelvis W Contrast (04/09/2024 9:38 PM EST) [facility] RAD WORKSTATION ID [id number] ID [facility] PharmacyCR[facility] Anatomical Region Laterality Modality Abdomen Computed Tomogra phy 04/09/2024 10:3 1 PM EST Narrative 04/09/2024 10:35 PM EST REVIEWING YOUR TEST RESULTS IN [facility] IS NOT A SUBSTITUTE FOR DISCUSSING THOSE RESULTS WITH YOUR HEALTH CARE PROVIDER. PLEASE CONTACT YOUR PROVIDER VIA [facility] TO DISCUSS ANY QUESTIONS OR CONCERNS YOU MAY HAVE REGARDING THESE TEST RESULTS. RADIOLOGY REPORT FACILITY: [facility] UNIT/AGE/GENDER: M.ED ER AGE:58 Y SEX:F PATIENT NAME/: AMBIKA PRATT TURNER 1965 UNIT NUMBER: [id number] ACCESSION NUMBER: [id number] Examination: CT angiography of the abdomen and [...] - 04/09/2024 REVIEWING YOUR TEST RESULTS IN [facility] IS NOT A SUBSTITUTE FORDISCUSSING THOSE RESULTS WITH YOUR HEALTH CARE PROVIDER. PLEASE CONTACT YOUR PROVIDER [facility]IA [facility] TO DISCUSS ANY QUESTIONS ORCONCERNS YOU MAY HAVE REGARDING THESE TEST RESULTS. RADIOLOGY REPORT FACILITY: [facility] UNIT/AGE/GENDER: M.ED ER AGE:58 Y SEX:F PATIENT NAME/: AMBIKA PRATT TURNER 1965 UNIT NUMBER: [id number] ACCESSION NUMBER: [id number] Examination: CT angiography of the abdomen and [...] - 59 U/L 04/09/2024 9:22 PM EST [facility] Blood VENOUS BLOOD SPECIMEN / Unknown Venipuncture / Unknown 04/09/2024 8:53 PM EST 04/09/2024 9:02 PM EST us Carlos Cannon MD LAB BLOOD ORDERABLES Final Resul t [facility] [address] [place] [id number] * EKG 12 lead (04/09/2024 7:31 PM EST) 04/09/2024 7:31 PM EST Narrative [facility] - 04/10/2024 7:35 AM EST CARDIOLOGY REPORT FACILITY: [facility] PATIENT NAME/: AMBIKA PRATT 1965 UNIT/AGE/GENDER: AGE: 58 YR GENDER: F UNIT NUMBER: [id number] ACCESSION NUMBER: [id number] DATE OF EXAM: 04/09/2024 19:31 EXAMINATION(S): ECG 12-LEAD FINAL REPORT Procedure: ELECTROCARDIOGRAM RESULT Heart Rate 73 P-R Interval 144 ms QRS Interval 96 ms QT Interval 428 ms QTC Interval 472 ms P [place] 33 deg QRS [place] -2 deg T Wave [place] 45 deg DATE: 04/09/2024 19:31 SINUS RHYTHM LATE PRECORDIAL R/S TRANSITION NONSPECIFIC ST-T WAVE CHANGES NO PRIOR TRACING FOR COMPARISON Electronically signed by Marco Antonio Smith M.D. 04/10/2024 07:35 Procedure Note Marco Antonio Smith MD - 04/10/2024 CARDIOLOGY REPORT FACILITY: [facility] PATIENT NAME/: AMBIKA PRATT 1965 UNIT/AGE/GENDER: AGE: 58 YR GENDER: F UNIT NUMBER: [id number] ACCESSION NUMBER: [id number] DATE OF EXAM: 04/09/2024 19:31 EXAMINATION(S): ECG 12-LEAD FINAL REPORT Procedure: ELECTROCARDIOGRAM RESULT Heart Rate 73 P-R Interval 144 ms QRS Interval 96 ms QT Interval 428 ms QTC Interval 472 ms P [place] 33 deg QRS [place] -2 deg T Wave [place] 45 deg DATE: 04/09/2024 19:31 SINUS RHYTHM [...] Color, Urine Colorless 04/09/2024 7:44 PM EST [facility] Clarity, Urine Clear 04/09/2024 7:44 PM EST [facility] Specific [place], Urine 1.008 1.005 - 1.030 [arb'U] 04/09/2024 7:44 PM EST [facility] pH, Urine 5.5 5.0 - 9.0 [pH] 04/09/2024 7:44 PM [facility] Protein, Urine Negative Negative, 10 mg/dL, 15 mg/dL, 20 mg/dL, Trace 04/09/2024 7:44 PM [facility] Glucose, Urine Negative Negative 04/09/2024 7:44 PM [facility] Ketones, Urine Negative Negative 04/09/2024 7:44 PM [facility] Bilirubin, Urine Negative Negative mg/dL 04/09/2024 7:44 PM [facility] Blood, Urine Negative Negative [arb'U] 04/09/2024 7:44 PM [facility] Nitrite, Urine Negative Negative 04/09/2024 7:44 PM [facility] Urobilinogen, Urine Normal Normal 04/09/2024 7:44 PM [facility] Leukocyte Esterase, Urine 500 Sena/uL(A) Negative 04/09/2024 7:44 PM [facility] Reflex Microscopic? 04/09/2024 7:44 PM [facility] Comment:Microscopic performe d Red Blood Cells, Urine 1 0 - 2 [HPF] 04/09/2024 7:44 PM [facility] White Blood Cells, Urine 40(H) 0 - 3 [HPF] 04/09/2024 7:44 PM [facility] Squamous Epithelial Cells, Urine <1 0 - 4 [HPF] 04/09/2024 7:44 PM [facility] Bacteria, Urine None None [HPF] 04/09/2024 7:44 PM [facility] Urine MID-STREAM URINE SPECIMEN / Unknown Non-blood Collection / Unknown 04/09/2024 7:25 PM EST 04/09/2024 7:35 PM EST us Carlos Cannon MD URINE ORDERABLES Final Result [facility] [address] [id number] * High Sensitivity Troponin-I (04/09/2024 4:04 PM EST) Pathologist [facility] Troponin-I, High Sensitivity 3 0 - 14 pg/mL 04/09/2024 7:05 PM EST [facility] Blood VENOUS BLOOD SPECIMEN / Unknown Venipuncture / Unknown 04/09/2024 4:04 PM EST 04/09/2024 4:26 PM EST us Carlos Cannon MD LAB BLOOD ORDERABLES Final Resul t [facility] [address] [place] [address] * [place] Upper GI & Small Bowel (02/12/2024 11:13 AM EDT) Pathologist [facility] RAD WORKSTATION ID [id number] ID POWERSCRIBE Anatomical Region Laterality Modality Abdomen [facility] Radiographic Imaging 02/12/2024 1:44 PM EDT Narrative 02/12/2024 4:00 PM EDT REVIEWING YOUR TEST RESULTS IN [facility] IS NOT A SUBSTITUTE FOR DISCUSSING THOSE RESULTS WITH YOUR HEALTH CARE PROVIDER. PLEASE CONTACT YOUR PROVIDER VIA [facility] TO DISCUSS ANY QUESTIONS OR CONCERNS YOU MAY HAVE REGARDING THESE TEST RESULTS. RADIOLOGY REPORT FACILITY: [facility] UNIT/AGE/GENDER: MORRO OP AGE:58 Y SEX:F PATIENT NAME/: AMBIKA PRATT TURNER 1965 UNIT NUMBER: [id number] ACCESSION NUMBER: [id number] EXAMINATION: Limited Upper Gastrointestinal Exam HISTORY: Periumbilical pain, evaluate for possible recurrence of internal hernia COMPARISON: None FLUOROSCOPY TIME: 0.8 minute DOSE AREA PRODUCT: 4280 mGy*m2 IMAGES SAVED: 23 FINDINGS: Server radiograph of the abdomen demonstrates postsurgical changes [...] - 02/12/2024 REVIEWING YOUR TEST RESULTS IN [facility] IS NOT A SUBSTITUTE FORDISCUSSING THOSE RESULTS WITH YOUR HEALTH CARE PROVIDER. PLEASE CONTACT YOUR PROVIDER VIA [employer] [facility] TO DISCUSS ANY QUESTIONS ORCONCERNS YOU MAY HAVE REGARDING THESE TEST RESULTS. RADIOLOGY REPORT FACILITY: [facility] UNIT/AGE/GENDER: D.RAD OP AGE:58 Y SEX:F PATIENT NAME/: AMBIKA PRATT TURNER 1965 UNIT NUMBER: [id number] ACCESSION NUMBER: [id number] EXAMINATION: Limited Upper Gastrointestinal Exam HISTORY: Periumbilical pain, evaluate for possible recurrence of internal hernia COMPARISON: None FLUOROSCOPY TIME: 0.8 minute DOSE AREA PRODUCT: 4280 mGy*m2 IMAGES SAVED: 23 FINDINGS: Server radiograph of the abdomen demonstrates postsurgical changes [...] A Little M.D.> 02/12/2024 [id number] us Patrick Cole MD IMG FLUOROSCOPY ORDERABLES Final Result * (ABNORMAL) Basic Metabolic Panel (BMP) (11/07/2021 3:30 AM EDT) Only the most recent of2 resultswithin the time period is included. Sodium 142 136 - 145 mmol/L 11/07/2021 4:05 AM [facility] Comment: (note) Excess protein and/or lipids can falsely decrease sodium levels (pseudo hyponatremia). Potassium 3.7 3.5 - 5.1 mmol/L 11/07/2021 4:05 AM [facility] Chloride 102 98 - 107 mmol/L 11/07/2021 4:05 AM [facility] Comment: (note) Falsely elevated chloride levels can be seen in patients taking medications which contain bromide. Carbon Dioxide 32(H) 22 - 29 mmol/L 11/07/2021 4:05 AM [facility] [place] Anion Gap 8 5 - 13 (arb'U) 11/07/2021 4:05 AM [facility] Comment: (note) Calculation- Na - (Cl + CO2) Glucose 87 71 - 139 mg/dL 11/07/2021 4:05 AM [facility] Comment: (note) Reference range based on inpatient hypo/hyperglycemic treatment levels. A random glucose =/>200 is concerning for poor control. Blood Urea Nitrogen (BUN) 6(L) 10 - 20 mg/dL 11/07/2021 4:05 AM [facility] Creatinine-Blood 0.89 0.55 - 1.02 mg/dL 11/07/2021 4:05 AM [facility] BUN/Creatinine Ratio 6.7 RATIO 11/07/2021 4:05 AM [facility] Estimated GFR >60 >60 /1.73 m2 11/07/2021 4:05 AM [facility] Comment: (note) Results do not take into account body mass. Valid for patients 18 to 70 years of age. Estimated GFR if -Cypriot >60 >60 /1.73 m2 11/07/2021 4:05 AM EDT [facility] Comment: (note) Results do not take into account body mass. Valid for patients 18 to 70 years of age. Calcium 9.3 8.4 - 10.2 mg/dL 11/07/2021 4:05 AM EDT [facility] Plasma specimen (specimen) BLOOD SPECIMEN FROM PATIENT / Unknown 11/07/2021 3:30 AM EDT 11/07/2021 3:39 AM EDT us Amanda Garcias MD LAB BLOOD ORDERABLES Final Result Performing Organization Address [facility]/[place] [address] [place] [address] * Potassium (11/06/2021 12:28 PM EDT) Only the most recent of2 resultswithin the time period is included. Potassium 3.5 3.5 - 5.1 mmol/L 11/06/2021 12:48 PM EDT [facility] Plasma BLOOD SPECIMEN FROM PATIENT / Unknown 11/06/2021 12:28 PM EDT 11/06/2021 12:34 PM EDT us Forrest Garrison MD LAB BLOOD ORDERABLES Final Re sult [address] [address] * C. difficile PCR /Toxin Detection (11/03/2021 6:46 PM EDT) Kent Score Kent Score 6 - loose stool acceptable for C. difficile testing (arb'U) 11/03/2021 6:56 PM EDT [facility] CDIFF PCR Negative Negative 11/03/2021 7:41 PM EDT [facility] Comment: Toxigenic C. difficile was not detected. This assay was conducted using polymerase chain reaction for the C. difficile toxin B gene. It is considered 94% sensitive and 94% specific for detection of C. difficile in stool specimens from symptomatic patients. Stool STOOL SPECIMEN / Unknown 11/03/2021 6:46 PM EDT 11/03/2021 6:52 PM EDT us Iris Staley APRN MICROBIOLOGY - GENERAL ORDERAB LES Final Result Performing Organization Address [facility] [place] [address] [address] * Protime-INR (11/03/2021 5:30 PM EDT) Prothrombin Time 12.8 10.3 - 13.3 s 11/03/2021 5:54 PM EDT [facility] Comment: (note) Anticoagulants may alter the results of Laboratory Coagulation assays. New-generation anticoagulants such as direct Thrombin inhibitors (Dabigatran/Pradaxa, Argatroban, Bivalrudin) and direct/indirect factor Xa inhibitors (Rivaroxaban/Xarelto,Apixaban/Eliquis, Danaparoid/Orgaran, Fondaparinux/Arixtra) have been shown to affect the results of Laboratory Coagulation assays, creating falsely elevated or decreased values. Correlation with medication history is advised. INR 1.1 INR 11/03/2021 5:54 PM EDT [facility] Comment: INR Therapeutic Ranges: Low Intensity Range: 2.0-3.0 High Intensity Range: 3.0-4.5 Plasma specimen (specimen) BLOOD SPECIMEN FROM PATIENT / Unknown 11/03/2021 5:30 PM EDT 11/03/2021 5:37 PM EDT us Forrest Garrison MD LAB BLOOD ORDERABLES Final Re sult Performing Organization Address [facility]/ZIP Co de Phone Number [address] [place] [address] [address] * Type and Screen (11/03/2021 5:28 PM EDT) ABO/Rh(D) O Negative 11/03/2021 6:33 PM EDT [facility] Antibody Screen Negative 11/03/2021 6:33 PM EDT [facility] Crossmatch Expiration 11/06/2021,2 359 11/03/2021 6:33 PM EDT [facility] Whole Blood BLOOD SPECIMEN FROM PATIENT / Unknown 11/03/2021 5:28 PM EDT 11/03/2021 5:40 PM EDT Jacque Pitts APRN BLOOD BANK TEST ORDERABLES Final Result Performing Organization Address City/[facility]/ZIP Co de Phone Number [facility] AND [address] [address] * Culture,Urine (11/03/2021 4:39 PM EDT) Pathologist [facility] Culture 10,000 to 100,000 CFU/ML Mixed Rosa Elena Isolated. Multiple organisms present. Suggest appropriate recollection if clinically indicated. 11/04/2021 2:15 PM EDT [facility] Urine Midstream MID-STREAM URINE SPECIMEN / Unknown 11/03/2021 4:39 PM EDT 11/03/2021 5:02 PM EDT Iris Staley BIRD TRAPPER MICROBIOLOGY - GENERAL ORDERAB LES Final Result [facility] [address] [place], [place] [id number] [facility] [address] [place] [address] * XR Abdomen FLat & Upr + CXR (11/03/2021 3:30 PM EDT) Anatomical Region Laterality Modality Abdomen [facility] Radiographic Imaging 11/03/2021 3:35 PM EDT Narrative 11/03/2021 3:37 PM EDT REVIEWING YOUR TEST RESULTS IN [facility] IS NOT A SUBSTITUTE FOR DISCUSSING THOSE RESULTS WITH YOUR HEALTH CARE PROVIDER. PLEASE CONTACT YOUR PROVIDER [employer]IA [employer] TO DISCUSS ANY QUESTIONS OR CONCERNS YOU MAY HAVE REGARDING THESE TEST RESULTS. RADIOLOGY REPORT FACILITY: [facility] UNIT/AGE/GENDER: [id number] IN AGE:55 Y SEX:F PATIENT NAME/: AMBIKA PRATT TURNER 1965 UNIT NUMBER: [id number] ACCESSION NUMBER: [id number] PA VIEW OF THE CHEST, 3 AP [...] - 11/03/2021 REVIEWING YOUR TEST RESULTS IN [facility] IS NOT A SUBSTITUTE FORDISCUSSING THOSE RESULTS WITH YOUR HEALTH CARE PROVIDER. PLEASE CONTACT YOUR PROVIDER [employer]IA [employer] TO DISCUSS ANY QUESTIONS ORCONCERNS YOU MAY HAVE REGARDING THESE TEST RESULTS. RADIOLOGY REPORT FACILITY: [facility] UNIT/AGE/GENDER: [id number] IN AGE:55 Y SEX:F PATIENT NAME/: AMBIKA PRATT TURNER 1965 UNIT NUMBER: [id number] ACCESSION NUMBER: [id number] PA VIEW OF THE CHEST, 3 AP [...] Diana Allison M.D.> 11/03/2021 [id number] Patrick Cole MD [facility] Final Result * Ova and Parasite Examination (11/03/2021 3:24 PM EDT) Pathologist [facility] Ova and Parasite Examination No ova or parasites observed. 11/04/2021 2:26 PM EDT [facility] Stool STOOL SPECIMEN / Unknown 11/03/2021 3:24 PM EDT 11/03/2021 6:55 PM EDT Comment:Random Iris Staley BIRD TRAPPER MICROBIOLOGY - GENERAL ORDERAB LES Final Result [facility] [address] [place], [place] [id number] [facility] [address] [place] [address] * Stool Culture and Shiga Toxin Assay (11/03/2021 3:24 PM EDT) Pathologist [facility] Shiga Toxin Assay (Stool) No Shiga Toxin Detected. 11/06/2021 5:11 AM EDT [facility] Culture No Salmonella , Shigella, Campylobac ter, Yersinia, or E.coli 0157 isolated. 11/06/2021 11:10 AM EDT [facility] Stool STOOL SPECIMEN / Unknown 11/03/2021 3:24 PM EDT 11/03/2021 6:55 PM EDT Comment:Random us Iris Staley BIRD TRAPPER MICROBIOLOGY - GENERAL ORDERAB LES Final Result [facility] [address] [place], [place] [id number] [facility] [address] [place] [address] Visit Diagnoses Diagnosis Start Date SBO (small [...] disorder, not elsewhere classified 04/09/2024 Care Teams Hot Car Charger Relationship Specialty Start Date End Date Salima Gonzáles MD [address] [place] [address] PCP - General Family Medicine 11/02/21
--- OUTSIDE RECORDS SUMMARY | 2025-04-05 09:51 | XMS_ITS | Referral Summary ---
Author Organization [employer] ([place], [place], [place], [place], [place]) Address [address] [place] [address] Care Team Providers Care Hoister Name Role Phone Salima Gonzáles DO Primary Care Provider [phone] Social History Tobacco Use Types Packs/Day Years Used Date Smoking Tobacco: Never Assessed Comments Unknown Sex and Gender Information Value Date Recorded Sex Assigned at Not on file Legal Sex Female 2:54 PM CDT Gender Identity Not on file Sexual Orientation Not on file Plan of Treatment Not on file Insurance [facility] ACCESS O MAP Care Teams Hoister Relationship Specialty Start Date End Date Salima Gonzáles DO [address] [place] [address] PCP - General Family Medicine 02/09/23
--- OUTSIDE RECORDS SUMMARY | 2025-04-05 09:51 | XMS_ITS | Encounter Summary ---
Author Organization [employer] ([place], [place], [place], [place], [place]) Address [address] [place] [address] Care Team Providers Care Dry Kiln Worker Name Role Phone Salima Gonzáles Tate SWANN Primary Care Provider [phone] Encounter Details Date Type Department Care Team (Late st Contact Info) Description 10/13/2020 Transcribed Document [facility] Family Medicine [address] [place] [address] ProviderQuincy MD [address] [place], [place] [address] Social History Tobacco Use Types Packs/Day Years Used Date Smoking Tobacco: Never Assessed Comments Unknown Sex and Gender Information Value Date Recorded Sex Assigned at Not on file Legal Sex Female 2:54 PM CDT Gender Identity Not on file Sexual Orientation Not on file documented as of this encounter Miscellaneous Notes * [employer]ner Conversion Note - Quincy ProviderMD - 10/13/2020 10:20 AM CDT UM Authorization Entered On: 10/13/2020 10:20 EDT Performed On: 10/13/2020 10:20 EDT by JUSTEN HARTLEY Rn-Utilization Review Primary Insurance Authorization Authorization and Policy Numbers : Insurance 1 Health Plan: [facility] MEDICARE REPL Policy Number: [id number] Authorization Number: Insurance Primary Name : [facility] MEDICARE REPL Policy Number: [id number] Authorization Status-Primary : Denied Reference Number-Primary : [id number] Authorized Service Begin Date-Primary : 10/03/2020 EDT Authorization Comments-Primary : Email to Hemalatha/MOSHE Historical Authorization Comments-Primary : Comment 1: Rec fax from [facility] 10/12/20 States admission has been denied. Fax to Jacque Tabor (TEMI LAMBERT, Major Appliance Assembly Supervisor 10/12/2020 14:42) Comment 2: Per Jinny remains pending (JACQUE HOFFMANN RN 10/12/2020 12:06) Comment 3: Faxed dc summary via [employer] (JACQUE HOFFMANN RN 10/11/2020 12:12) Comment 4: Remains pending per [employer] (JCAQUE HOFFMANN RN 10/11/2020 12:11) Comment 5: Email sent to jinny (JACQUE HOFFMANN RN 10/09/2020 15:11) Comment 6: Clinicals faxed via [employer] for IP approval (DEISY LIRA RN 10/05/2020 14:13) Comment 7: Clinicals submitted via [employer] for IP approval (DEISY LIRA RN 10/04/2020 08:24) JUSTEN HARTLEY Rn-Utilization Review - 10/13/2020 10:20 EDT documented in this encounter Plan of Treatment Not on file documented as of this encounter Visit Diagnoses Not on filedocumented in this encounter Care Teams Dry Kiln Worker Relationship Specialty Start Date End Date Salima Gonzáles, [address] [facility] [address] [place] [address] PCP - General Family Medicine 02/09/23 documented as of this encounter
--- OUTSIDE RECORDS SUMMARY | 2025-04-05 09:51 | XMS_ITS | Encounter Summary ---
Author Organization [employer] ([place], [place], [place], [place], [place]) Address [address] [place] [address] Care Team Providers Care Face Man Name Role Phone Salima Gonzáles DO Primary Care Provider [phone] Encounter Details Date Type Department Care Team (Late st Contact Info) Description 10/04/2020 Transcribed Document [facility] [place] [address] [place] [address] ProviderQuincy MD [address] [place], [place] [id number] Social History Tobacco Use Types Packs/Day Years [...] 10/04/2020 16:48 EDT Electronically signed by [place] [facility] Conversion Tar Heater Operator [employer]ner at 08/23/2022 11:04 AM CDT documented in this encounter Plan of Treatment Not on file documented as of this encounter Visit Diagnoses Not on filedocumented in this encounter Care Teams Face Man Relationship Specialty Start Date End Date Salima Gonzáles DO [address] [place] [address] PCP - General Family Medicine 02/09/23 documented as of this encounter
--- OUTSIDE RECORDS SUMMARY | 2025-04-05 09:51 | XMS_ITS | Encounter Summary ---
Author Organization [employer] ([place], [place], [place], [place], [place]) Address [address] [place] [address] Care Team Providers Care Negative Assembler Name Role Phone Salima Gonzáles Tate SWANN Primary Care Provider [phone] Encounter Details Date Type Department Care Team (Late st Contact Info) Description 10/05/2020 Transcribed Document [facility] [place] [address] [place] [address] ProviderQuincy MD [address] [place], [place] [address] Social History Tobacco Use Types Packs/Day Years Used Date Smoking Tobacco: Never Assessed Comments Unknown Sex and Gender Information Value Date Recorded Sex Assigned at Not on file Legal Sex Female 2:54 PM CDT Gender Identity Not on file Sexual Orientation Not on file documented as of this encounter Miscellaneous Notes * Cerner Conversion Note - Historical ProviderMD - 10/05/2020 2:00 AM CDT Billet Assembler Details Entered On: 10/05/2020 3:28 EDT Performed [...] on filedocumented in this encounter Care Teams Negative Assembler Relationship Specialty Start Date End Date Salima Gonzáles DO [address] [facility] [address] [place] [address] PCP - General Family Medicine 02/09/23 documented as of this encounter
--- OUTSIDE RECORDS SUMMARY | 2025-04-05 09:51 | XMS_ITS | Encounter Summary ---
Author Organization [employer] ([place], [place], [place], [place], [place]) Address [address] [place] [address] Care Team Providers Care Roll Forming Supervisor Name Role Phone Eliecer Salima Tate SWANN Primary Care Provider [phone] Encounter Details Date Type Department Care Team (Late st Contact Info) Description 10/13/2020 Transcribed Document [facility] [place] Medicine [address] [place] [address] ProviderQuincy MD [address] [place] [address] Social History Tobacco Use Types Packs/Day Years Used Date Smoking Tobacco: Never Assessed Comments Unknown Sex and Gender Information Value Date Recorded Sex Assigned at Not on file Legal Sex Female 2:54 PM CDT Gender Identity Not on file Sexual Orientation Not on file documented as of this encounter Miscellaneous Notes * Cerner Conversion Note - Quincy ProviderMD - 10/13/2020 3:02 PM CDT UM Authorization Entered On: 10/13/2020 15:03 EDT Performed On: 10/13/2020 15:02 EDT by Katia Pratt, Steam Cleaner Primary Insurance Authorization Authorization and Policy Numbers : Insurance 1 Health Plan: [facility] MEDICARE REPL Policy Number: [id number] Authorization Number: Insurance Primary Name : [employer] MEDICARE REPL Policy Number: [id number] Authorization Status-Primary : Denied Auth/Referral Contact Name-Primary : DC+ Reference Number-Primary : [id number] Authorized Service Begin Date-Primary : 10/03/2020 EDT Authorization Comments-Primary : Discharge date and summary faxed. Historical Authorization Comments-Primary : Comment 1: Email to David/Mary/MOSHE (JUSTEN HARTLEY, Rn-Utilization Review 10/13/2020 10:20) Comment 2: Rec fax from [facility] 10/12/20 States admission has been denied. Fax to Jacque Tabor (TEMI LAMBERT, Sap Basis Consultant 10/12/2020 14:42) Comment 3: Per Jinny remains [...] 10/05/2020 14:13) Comment 8: Clinicals submitted via [employer] for IP approval (DEISY LIRA RN 10/04/2020 08:24) Katia Pratt, Steam Cleaner - 10/13/2020 15:02 EDT Electronically signed by Nuzhat Barahona Conversion Aerospace Physiological Technician Cerner at 08/23/2022 11:07 AM CDT documented in this encounter Plan of Treatment Not on file documented as of this encounter Visit Diagnoses Not on filedocumented in this encounter Care Teams Roll Forming Supervisor Relationship Specialty Start Date End Date Salima Gonzáles, [address] [facility] [address] [place] [address] PCP - General Family Medicine 02/09/23 documented as of this encounter
--- OUTSIDE RECORDS SUMMARY | 2025-04-05 09:51 | XMS_ITS | Encounter Summary ---
Author Organization [employer] ([place], [place], [place], [place], [place]) Address [address] [place] [address] Care Team Providers Care Oil Well Pumper Name Role Phone Eliecer Salima Tate SWANN Primary Care Provider [phone] Encounter Details Date Type Department Care Team (Late st Contact Info) Description 10/11/2020 Transcribed Document [facility] [place] [address] [place] [address] ProviderQuincy MD [address] [place], [place] [address] Social History Tobacco Use Types Packs/Day Years [...] : Insurance 1 Health Plan: [facility] MEDICARE REPL Policy Number: [id number] Authorization Number: Insurance Primary Name : [employer] MEDICARE REPL Policy Number: [id number] Authorization Status-Primary : Awaiting callback Reference Number-Primary : [id number] Authorized Service Begin Date-Primary : 10/03/2020 EDT Authorization Comments-Primary : Faxed dc summary via [employer] Historical Authorization Comments-Primary : Comment 1: Remains pending per [employer] (PING HOFFMANN RN 10/11/2020 12:11) Comment 2: Email sent to madelyn (PING HOFFMANN RN 10/09/2020 15:11) Comment 3: Clinicals faxed via [employer] for IP approval (DEISY LIRA RN 10/05/2020 14:13) Comment 4: Clinicals submitted via [employer] for IP approval (DEISY LIRA RN 10/04/2020 08:24) PING HOFFMANN RN - 10/11/2020 12:12 EDT Electronically signed by [facility] Conversion Relay Technician Cerner at 08/23/2022 10:56 AM CDT documented in this encounter Plan of Treatment Not on file documented as of this encounter Visit Diagnoses Not on filedocumented in this encounter Care Teams Oil Well Pumper Relationship Specialty Start Date End Date Salima Gonzáles DO [address] [address] PCP - General Family Medicine 02/09/23 documented as of this encounter
--- OUTSIDE RECORDS SUMMARY | 2025-04-05 09:51 | XMS_ITS | Encounter Summary ---
Author Organization [employer] ([place], [place], [place], [place], [place]) Address [address] [place] [address] Care Team Providers Care Test Cell Technician Name Role Phone Anujlizbet Salima Tate SWANN Primary Care Provider [phone] Encounter Details Date Type Department Care Team (Late st Contact Info) Description 10/11/2020 Transcribed Document [facility] [place] [address] [place] [address] ProviderQuincy MD [address] [place], [place] [address] Social History Tobacco Use Types Packs/Day Years Used Date Smoking Tobacco: Never Assessed Comments Unknown Sex and Gender Information Value Date Recorded Sex Assigned at Not on file Legal Sex Female 2:54 PM CDT Gender Identity Not on file Sexual Orientation Not on file documented as of this encounter Miscellaneous Notes * Cerner Conversion Note - Quincy ProviderMD - 10/11/2020 12:11 PM CDT UM Authorization Entered On: 10/11/2020 12:11 EDT Performed On: 10/11/2020 12:11 EDT by PING HOFFMANN RN Primary Insurance Authorization Authorization and Policy Numbers : Insurance 1 Health Plan: [facility] MEDICARE REPL Policy Number: [id number] Authorization Number: Insurance Primary Name : [place] MEDICARE REPL Policy Number: [id number] Authorization Status-Primary : Awaiting callback Reference Number-Primary : [id number] Authorized Service Begin Date-Primary : 10/03/2020 EDT Authorization Comments-Primary : Remains pending per [employer] Historical Authorization Comments-Primary : Comment 1: Email sent to madelyn (PING HOFFMANN RN 10/09/2020 15:11) Comment 2: Clinicals faxed via [employer] for IP approval (DEISY LIRA RN 10/05/2020 14:13) Comment 3: Clinicals submitted via [email or web address] for IP approval (DEISY LIRA RN 10/04/2020 08:24) PING HOFFMANN RN - 10/11/2020 12:11 EDT documented in this encounter Plan of Treatment Not on file documented as of this encounter Visit Diagnoses Not on filedocumented in this encounter Care Teams Test Cell Technician Relationship Specialty Start Date End Date Salima Gonzáles, [address] [facility] [address] [place] [address] PCP - General Family Medicine 02/09/23 documented as of this encounter
--- OUTSIDE RECORDS SUMMARY | 2025-04-05 09:51 | XMS_ITS | Encounter Summary ---
Author Organization [employer] ([place], [place], [place], [place], [place]) Address [address] [place] [address] Care Team Providers Care Apigee Developer Name Role Phone Anujlizbet Salima Tate SWANN Primary Care Provider [phone] Encounter Details Date Type Department Care Team (Late st Contact Info) Description 10/12/2020 Transcribed Document [facility] [place] Family Medicine [address] [place] [address] ProviderQuincy MD [address] [place], [place] [address] Social History Tobacco Use Types Packs/Day Years Used Date Smoking Tobacco: Never Assessed Comments Unknown Sex and Gender Information Value Date Recorded Sex Assigned at Not on file Legal Sex Female 2:54 PM CDT Gender Identity Not on file Sexual Orientation Not on file documented as of this encounter Miscellaneous Notes * Cerner Conversion Note - Quincy ProviderMD - 10/12/2020 12:06 PM CDT UM Authorization Entered On: 10/12/2020 12:06 EDT Performed On: 10/12/2020 12:06 EDT by PING HOFFMANN RN Primary Insurance Authorization Authorization and Policy Numbers : Insurance 1 Health Plan: [facility] MEDICARE REPL Policy Number: [id number] Authorization Number: Insurance Primary Name : [employer] MEDICARE REPL Policy Number: [id number] Authorization Status-Primary : Awaiting callback Reference Number-Primary : [id number] Authorized Service Begin Date-Primary : 10/03/2020 EDT Authorization Comments-Primary : Yeison Stearns remains pending Historical Authorization Comments-Primary : Comment 1: Faxed dc summary via [employer] (PING HOFFMANN RN 10/11/2020 12:12) Comment 2: Remains pending per [employer] (PING HOFFMANN RN 10/11/2020 12:11) Comment 3: Email sent to madelyn (PING HOFFMANN RN 10/09/2020 15:11) Comment 4: Clinicals faxed via [employer] for IP approval (DEISY LIRA RN 10/05/2020 14:13) Comment 5: Clinicals submitted via [employer] for IP approval (DEISY LIRA RN 10/04/2020 08:24) PING HOFFMANN RN - 10/12/2020 12:06 EDT documented in this encounter Plan of Treatment Not on file documented as of this encounter Visit Diagnoses Not on filedocumented in this encounter Care Teams Apigee Developer Relationship Specialty Start Date End Date Salima Gonzáles, [address] [facility] [address] [place] [address] PCP - General Family Medicine 02/09/23 documented as of this encounter
--- OUTSIDE RECORDS SUMMARY | 2025-04-05 09:51 | XMS_ITS | Clinical Summary ---
Author Organization [facility] Address [address] [place] [address] Care Team Providers Care Insulation Installer Name Role Phone Eliecer Salimajovanni Connergh Primary Care Provider [phone] Allergies Active Allergy Reactions Criticality Noted Date [...] Gluc Sensor (FreeStyle Niels 2 Sensor) [facility] USE DIRECTED FOR CONTINUOUS GLUCOSE MONITORING 01/24/20 [...] patient to restart PAP therapy and contact [employer] to find a better mask that does not cause migraines. 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 Encouraged patient to restart PAP therapy and contact [employer] to find a better mask that does not cause migraines. Resolved Problems Problem Noted Date Diagnosed Date Resolved Date Back pain 01/26/2024 01/27/2024 Immunizations Immunization Administration Dates Next Due Flublok [...] 1974 URINE MICROALBUMIN-CREATININ E RATIO (uACR) 1974 MAMMOGRAM 2004 COLOGUARD 2009 COLON CANCER SCREENING 5 YEA R SIGMOIDOSCOPY 2009 CT COLONOGRAPHY 2009 FECAL OCCULT BLOOD TEST 2009 FIT Testing (1 year) 2009 LUNG CANCER SCREENING 2014 ZOSTER VACCINE (1 of 2) 2014 ANNUAL WELLNESS VISIT 02/21/2017 HEPATITIS C SCREENING 02/21/2017 HEMOGLOBIN A1C 10/09/2024 04/10/2024, 09/2023, 11/04/2021, Additional history exists INFLUENZA VACCINE 12/05/2024 02/07/2024, , 01/27/2022, Additional history exists TDAP/TD VACCINES (2 - Td or Tdap) 01/25/2028 018 COLONOSCOPY 10/05/2029 10/06/2019 COLORECTAL CANCER SCREENING 10/05/2029 Pneumococcal Vaccine 50+ Completed 01/27/2022, 09/2018 Insurance [employer] MEDICARE ADVANTAGE PPO Advance [...] Of Support Discussed With: Patient Care Teams Insulation Installer Relationship Specialty Start Date End Date Salima Gonzáles DO [address] [place] [address] PCP - General Family Medicine 02/21/17
--- OUTSIDE RECORDS SUMMARY | 2025-04-05 09:51 | XMS_ITS | Encounter Summary ---
Author Organization [employer] ([place], [place], [place], [place], [place]) Address [address] [place] [address] Care Team Providers Care Clerk To Justice Name Role Phone Salima Gonzáles Primary Care Provider [phone] Encounter Details Date Type Department Care Team (Late st Contact Info) Description 10/04/2020 Transcribed Document [facility] [place] [address] [place] [address] ProviderQuincy MD [address] [place], [place] [id number] Social History Tobacco Use Types Packs/Day Years Used Date Smoking Tobacco: Never Assessed Comments Unknown Sex and Gender Information Value Date Recorded Sex Assigned at Not on file Legal Sex Female 2:54 PM CDT Gender Identity Not on file Sexual Orientation Not on file documented as of this encounter Miscellaneous Notes * Cerner Conversion Note - Quincy ProviderMD - 10/04/2020 2:23 PM CDT Pain Assessment Entered On: 10/04/2020 16:47 EDT Performed On: 10/04/2020 15:19 EDT by Hoa Coleman RN Intervention Information: oxyCODONE Performed by ESPERANZA LAWRENCE, DIANE on 10/04/2020 14:19:00 EDT oxyCODONE,5mg Oral,Pain (Moderate 4-6) Pain Assessment Pain Assessment : Follow-up assessment Pain Improved by Intervention : Yes Hoa Coleamn RN - 10/04/2020 16:47 EDT documented in this encounter Plan of Treatment Not on file documented as of this encounter Visit Diagnoses Not on filedocumented in this encounter Care Teams Clerk To Justice Relationship Specialty Start Date End Date Salima Gonzáles DO [address] [id number] PCP - General Family Medicine 02/09/23 documented as of this encounter
--- OUTSIDE RECORDS SUMMARY | 2025-04-05 09:51 | XMS_ITS | Encounter Summary ---
Author Organization [employer] ([place], [place], [place], [place], [place]) Address [address] [place] [address] Care Team Providers Care Instructional Coach Name Role Phone Eliecer Salima Tate SWANN Primary Care Provider [phone] Encounter Details Date Type Department Care Team (Late st Contact Info) Description 10/05/2020 Transcribed Document [facility] [place] Family Medicine [address] [place] [address] ProviderQuincy MD [address] [place] [address] Social History Tobacco Use Types Packs/Day Years Used Date Smoking Tobacco: Never Assessed Comments Unknown Sex and Gender Information Value Date Recorded Sex Assigned at Not on file Legal Sex Female 2:54 PM CDT Gender Identity Not on file Sexual Orientation Not on file documented as of this encounter Miscellaneous Notes * Cerner Conversion Note - Quincy ProviderMD - 10/05/2020 2:02 PM CDT Final Discharge Planning Entered On: 10/05/2020 14:02 EDT Performed On: 10/05/2020 14:02 EDT by EVONNE GABRIEL RN-Reproducer Final Discharge Planning Discharge Arrangements : Patient Post-Acute Information Patient Name: AMBIKA PIERRE Gender: Female : [birth year] Age: 54 Years No Post-Acute Placement(s) Listed No Post-Acute Service(s) Listed No [place] Referral(s) Listed Transportation Needs : Family/Friend Follow Up Appointment Scheduled : Yes Is Patient High/Moderate Readmission Risk? : No Discharge To Care Management : Home/Residential/Fci or Self Care - EVONNE GABRIEL, DIANE-Reproducer - 10/05/2020 14:02 EDT Electronically signed by [facility] Conversion Retail Custodial Associate Cerner at 08/23/2022 11:08 AM CDT documented in this encounter Plan of Treatment Not on file documented as of this encounter Visit Diagnoses Not on filedocumented in this encounter Care Teams Instructional Coach Relationship Specialty Start Date End Date Salima Gonzáles, [address] [phone] PCP - General Family Medicine 02/09/23 documented as of this encounter
--- OUTSIDE RECORDS SUMMARY | 2025-04-05 09:51 | XMS_ITS | Clinical Summary ---
Author Organization [employer] ([place], [place], [place], [place], [place]) Address [address] [place] [address] Care Team Providers Care Adult Remedial Education Instructor Name Role Phone Salima Gonzáles DO Primary Care Provider [phone] Social History Tobacco Use Types Packs/Day Years [...] (Zoster) (1 of 2) 2014 COVID-19 VACCINE (2024-2 6 season) 2025 02/23/2022, 01/26/2021, 06/09/2020, Additional history exists Influenza Vaccine (#1) 2025 01/27/2022, 2019 DTAP/TDAP/TD VACCINES (2 - T d or Tdap) 01/25/2028 01/24/2018 Pneumococcal 50+ years Completed 01/27/2022, 2018 Insurance [facility] ACCESS HMO MAP Care Teams Adult Remedial Education Instructor Relationship Specialty Start Date End Date Salima Gonzáles, [address] [place] [address] PCP - General Family Medicine 02/09/23
--- OUTSIDE RECORDS SUMMARY | 2025-04-05 09:51 | XMS_ITS | Encounter Summary ---
Author Organization [employer] ([place], [place], [place], [place], [place]) Address [address] [place] [address] Care Team Providers Care Campground Hand Name Role Phone Salima Gonzáles DO Primary Care Provider Encounter Details Date Type Department Care Team (Late st Contact Info) Description 10/06/2020 Transcribed Document [facility] [place] [address] [place] [address] ProviderQuincy MD [address] [place], [place] [address] Social History Tobacco Use Types Packs/Day Years [...] Appointments Made #1 : Dr. Salima Gonzáles [facility] Follow-up Appointment Date #1 : 10/19/2020 11:00 EDT Contact Phone Number #1 : [phone] Follow-up Appointments Made #2 : [facility] Follow-up Appointment Date #2 : 01/06/2021 13:30 EDT Contact Phone Number #2 : [phone] Jacque Ledezma, MOVIE OPERATOR - 10/06/2020 11:44 EDT Electronically signed by [facility], [facility] Conversion Plate Gauger Cerner at 08/23/2022 10:59 AM CDT documented in this encounter Plan of Treatment Not on file documented as of this encounter Visit Diagnoses Not on filedocumented in this encounter Care Teams Campground Hand Relationship Specialty Start Date End Date Salima Gonzáles, [address] [phone] PCP - General Family Medicine 02/09/23 documented as of this encounter
--- OUTSIDE RECORDS SUMMARY | 2025-04-05 09:51 | XMS_ITS | Encounter Summary ---
Author Organization [facility] ([place], [place], [place], [place], [place]) Address [address] [place] [address] Care Team Providers Care Climate Change Analyst Name Role Phone Salima Gonzáles DO Primary Care Provider [phone] Encounter Details Date Type Department Care Team (Late st Contact Info) Description 10/05/2020 Transcribed Document [facility] [place] [facility] [place] [address] ProviderQuincy MD [address] [place] [id number] Social History Tobacco Use Types Packs/Day Years [...] cefdinir (cefdinir, cefdinir) morphine Electronically signed by Nuzhat Barahona Conversion Medical Record Administrator Cerner at 08/23/2022 11:00 AM CDT documented in this encounter Plan of Treatment Not on file documented as of this encounter Visit Diagnoses Not on filedocumented in this encounter Care Teams Climate Change Analyst Relationship Specialty Start Date End Date Salima Gonzáles, [address] [phone] PCP - General Family Medicine 02/09/23 documented as of this encounter
--- OUTSIDE RECORDS SUMMARY | 2025-04-05 09:51 | XMS_ITS | Encounter Summary ---
Author Organization [employer] ([place], [place], [place], [place], [place]) Address [address] [place] [address] Care Team Providers Care Tax Revenue Officer Name Role Phone Anujlizbet Salima Tate SWANN Primary Care Provider [phone] Encounter Details Date Type Department Care Team (Late st Contact Info) Description 10/12/2020 Transcribed Document [facility] [place] Family Medicine [address] [place] [address] ProviderQuincy MD [address] [place], [place] [address] Social History Tobacco Use Types Packs/Day Years Used Date Smoking Tobacco: Never Assessed Comments Unknown Sex and Gender Information Value Date Recorded Sex Assigned at Not on file Legal Sex Female 2:54 PM CDT Gender Identity Not on file Sexual Orientation Not on file documented as of this encounter Miscellaneous Notes * Cerner Conversion Note - Quincy ProviderMD - 10/12/2020 2:42 PM CDT UM Authorization Entered On: 10/12/2020 14:43 EDT Performed On: 10/12/2020 14:42 EDT by TEMI LAMBERT, Application Integration Architect Primary Insurance Authorization Authorization and Policy Numbers : Insurance 1 Health Plan: [facility] MEDICARE REPL Policy Number: [id number] Authorization Number: Insurance Primary Name : [employer] MEDICARE REPL Policy Number: [id number] Authorization Status-Primary : Denied Reference Number-Primary : [id number] Authorized Service Begin Date-Primary : 10/03/2020 EDT Authorization Comments-Primary : Rec fax from [place] 10/12/20 States admission has been denied. Fax [...] 10/09/2020 15:11) Comment 5: Clinicals faxed via [employer] for IP approval (DEISY LIRA RN 10/05/2020 14:13) Comment 6: Clinicals submitted via [employer] for IP approval (DEISY LIRA RN 10/04/2020 08:24) TEMI LAMBERT, Application Integration Architect - 10/12/2020 14:42 EDT documented in this encounter Plan of Treatment Not on file documented as of this encounter Visit Diagnoses Not on filedocumented in this encounter Care Teams Tax Revenue Officer Relationship Specialty Start Date End Date Salima Gonzáles, 8 [facility] [address] [place] [address] PCP - General Family Medicine 02/09/23 documented as of this encounter
--- OUTSIDE RECORDS SUMMARY | 2025-04-05 09:51 | XMS_ITS | Encounter Summary ---
Author Organization [employer] ([place], [place], [place], [place], [place]) Address [address] [place] [address] Care Team Providers Care Senior Credit Analyst Name Role Phone Salima Gonzáles DO Primary Care Provider [phone] Encounter Details Date Type Department Care Team (Late st Contact Info) Description 10/08/2019 Transcribed Document [facility] [place] Family Medicine [address] [place] [address] ProviderQuincy MD [address] [place], [place] [address] Social History Tobacco Use Types Packs/Day Years [...] ??? Talk with a diet and nutrition club ambassador (dietitian) if you have questions about specific [...] Bulgur wheat. Millet. Quinoa. Bran muffins. Popcorn. Bliss wafer crackers. Meats and other proteins Max, kidney, and cox beans. Soybeans. Split peas. [...] Cream cheese. Sour cream. Fats and oils Verdel. Beverages Soft drinks. Other foods Cakes and [...] 04/23/2006 Document Revised: 02/25/2018 Document Reviewed: 02/25/2018 MyDoc Interactive Patient Education ? 2019 [employer]. Gastritis, Adult Gastritis is swelling (inflammation) of [...] these instructions at home: Medicines ??? Take mrfm-cky-itsxrhw and prescription medicines only as told by [...] 10/09/2008 Document Revised: 09/10/2018 Document Reviewed: 09/10/2018 MyDoc Interactive Patient Education ? 2019 [employer]. [...] you start to feel better. ??? Take htdz-vnb-yyldrfe and prescription medicines only as told by [...] 05/31/2005 Document Revised: 10/24/2018 Document Reviewed: 10/24/2018 MyDoc Interactive Patient Education ? 2019 [employer]. Hemorrhoids Hemorrhoids are swollen veins that [...] times a day. General instructions ??? Take tkqp-xcf-nfjestf and prescription medicines only as told by [...] 01/30/2009 Document Revised: 09/12/2018 Document Reviewed: 09/12/2018 MyDoc Interactive Patient Education ? 2019 [employer]. Colonoscopy, Adult, Care After This sheet [...] soft and easy to digest. ??? Take uvkq-bdp-zlanipg or prescription medicines only as told by [...] 05/26/2011 Document Revised: 02/21/2018 Document Reviewed: 01/15/2017 MyDoc Interactive Patient Education ? 2019 [employer]. Esophagogastroduodenoscopy, Care After Refer to this [...] 04/09/2013 Document Revised: 09/28/2016 Document Reviewed: 03/16/2016 MyDoc Interactive Patient Education ? 2019 [employer]. documented in this encounter Plan of Treatment Not on file documented as of this encounter Visit Diagnoses Not on filedocumented in this encounter Care Teams Senior Credit Analyst Relationship Specialty Start Date End Date Salima Gonzáles DO 8 [facility] [address] [place] [address] PCP - General Family Medicine 02/09/23 documented as of this encounter
--- OUTSIDE RECORDS SUMMARY | 2025-04-05 09:51 | XMS_ITS | Encounter Summary ---
Author Organization [employer] ([place], [place], [place], [place], [place]) Address [address] [place] [address] Care Team Providers Care Oracle Applications Analyst Name Role Phone Salima Mi DO Primary Care Provider [phone] Encounter Details Date Type Department Care Team (Late st Contact Info) Description 10/05/2020 Transcribed Document [facility] [place] Family Medicine [address] [place] [address] ProviderQuincy MD [address] [place], [place] [address] Social History Tobacco Use Types Packs/Day Years Used Date Smoking Tobacco: Never Assessed Comments Unknown Sex and Gender Information Value Date Recorded Sex Assigned at Not on file Legal Sex Female 2:54 PM CDT Gender Identity Not on file Sexual Orientation Not on file documented as of this encounter Miscellaneous Notes * Cerner Conversion Note - Historical ProviderMD - 10/05/2020 2:33 PM CDT Patient: AMBIKA MOSCOSO Age: 54 Years Sex: Female : 1965 Admit Date 10/03/2020 18:06 Discharge Date No Discharge Date on Record Primary Care Provider SALIMA MI DO-[facility] Discharge Diagnosis COPD with asthma [...] MD-URO - Within 3 months SALIMA MI DO-[facility] - Within 1 to 2 weeks Discharge [...] -- Start: 10/05/20 8:17:00 EDT, 60 gm carbs:[id number] josue, GI Soft / Low Residue / [...] on filedocumented in this encounter Care Teams Oracle Applications Analyst Relationship Specialty Start Date End Date Salima Mi DO 8 [facility] [address] [place] [address] PCP - General Family Medicine 02/09/23 documented as of this encounter
--- OUTSIDE RECORDS SUMMARY | 2025-04-05 09:51 | XMS_ITS ---
Care Plan - [facility] Created on: April 05, 2025 Neetu Murillo : 1965 Sex: Female Author Organization [facility] Address [address] [place] [address] Phone Care Team Providers Care Donor Support Technician Name Role Phone Isiah Sheridan DPM Unavailable [phone] Salima Gonzáles DO Primary Care Provider [phone]
--- OUTSIDE RECORDS SUMMARY | 2025-04-05 09:51 | XMS_ITS | Encounter Summary ---
Author Organization [employer] ([place], [place], [place], [place], [place]) Address [address] [place] [address] Care Team Providers Care Quartz Miner Name Role Phone Salima Gonzáles Primary Care Provider [phone] Encounter Details Date Type Department Care Team (Late st Contact Info) Description 10/04/2020 Transcribed Document [facility] [place] [address] [place] [address] ProviderQuincy MD [address] [place], [place] [id number] Social History Tobacco Use Types Packs/Day Years Used Date Smoking Tobacco: Never Assessed Comments Unknown Sex and Gender Information Value Date Recorded Sex Assigned at Not on file Legal Sex Female 2:54 PM CDT Gender Identity Not on file Sexual Orientation Not on file documented as of this encounter Miscellaneous Notes * Cerner Conversion Note - Historical ProviderMD - 10/04/2020 2:00 AM CDT [employer] Details Entered On: 10/04/2020 4:12 EDT Performed [...] EDT Electronically signed by Nuzhat Barahona Conversion Scuba Dive Training Instructor Cerner at 08/23/2022 11:04 AM CDT documented in this encounter Plan of Treatment Not on file documented as of this encounter Visit Diagnoses Not on filedocumented in this encounter Care Teams Quartz Miner Relationship Specialty Start Date End Date Salima Gonzáles DO [address] [address] PCP - General Family Medicine 02/09/23 documented as of this encounter
--- OUTSIDE RECORDS SUMMARY | 2025-04-05 09:51 | XMS_ITS | Encounter Summary ---
Author Organization [employer] ([place], [place], [place], [place], [place]) Address [address] [place] [address] Care Team Providers Care Specialty Transformer Assembler Name Role Phone Eliecer Salima Tate SWANN Primary Care Provider [phone] Encounter Details Date Type Department Care Team (Late st Contact Info) Description 10/09/2020 Transcribed Document [facility] [place] [address] [place] [address] ProviderQuincy MD [address] [place], [place] [address] Social History Tobacco Use Types Packs/Day Years [...] Policy Numbers : Insurance 1 Health Plan: [facility] MEDICARE REPL Policy Number: [id number] Authorization Number: Insurance Primary Name : [employer] MEDICARE REPL Policy Number: [id number] Authorization Status-Primary : Awaiting callback Reference Number-Primary : [id number] Authorized Service Begin Date-Primary : 10/03/2020 EDT Authorization Comments-Primary : Email sent to madelyn Historical Authorization Comments-Primary : Comment 1: Clinicals faxed via [employer] for IP approval (DEISY LIRA RN 10/05/2020 14:13) Comment 2: Clinicals submitted via [employer] for IP approval (DEISY LIRA RN 10/04/2020 08:24) PING HOFFMANN RN - 10/09/2020 15:11 EDT Electronically signed by [facility] Conversion Supervisor Finish End Cerner at 08/23/2022 10:52 AM CDT documented in this encounter Plan of Treatment Not on file documented as of this encounter Visit Diagnoses Not on filedocumented in this encounter Care Teams Specialty Transformer Assembler Relationship Specialty Start Date End Date Salima Gonzáles, [address] [address] PCP - General Family Medicine 02/09/23 documented as of this encounter
--- OUTSIDE RECORDS SUMMARY | 2025-04-05 09:51 | XMS_ITS | Data Portability ---
Author Organization [facility] Dylan woodson, [facility] [place] [facility] Address [address] [place] [address] Care Team Providers Care Stage Set Up Worker Name Role Phone MARCOS MI Primary Care Provider STEFANI MAYA Research Methodologist Assessment No assessment recorded. Plan of Treatment Reminders Order Date Submit Date Provider Last Modified By Organization Details Last Modified Time Details Appointments LEVEL 2 026 09:15AM STEFANI MAYA MD Not available Not available Not available Lab None recorde d. Referral None recorde d. Procedures None recorde d. Surgeries None recorde d. Imaging None recorde d. Medication Orders None recorde d. Patient TargetsNo targets recorded. Patient InstructionsNo instructions recorded. Reason for Referral None Reported. Procedures Surgical History Date Name Laterality Status Provider Name and Address Organization Details Recorded Time 06/07/19 18 extracapsular cataract extraction and insertion of intraocular lens completed [facility] 03/05/2025 08:25:45 replacement of bilateral knee joints completed [facility] 03/05/2025 08:26:13 operation on bone injury of femur completed [facility] 03/05/2025 08:26:37 bypass of stomach completed [facility] 03/05/2025 08:27:22 total hysterectomy completed [facility] 03/05/2025 08:27:33 cholecystectomy completed [facility] 03/05/2025 08:27:40 procedure on intestine completed [facility] 03/05/2025 08:27:57 lithotripsy completed [facility] 03/05/2025 08:28:06 removal of urinary calculus completed [facility] 03/05/2025 08:28:15 Imaging Results None recorded. Procedure Notes None recorded. Medical Equipment None Reported. Allergies Allergen ID Allergen Name Allergen Category Reaction Reaction Severity Criticality Documentation Date Start Date Code Code System Note Provider Name and Address Organization Details Recorded Time 143218 morphine sulfate medicatio n Not available Not available Not available 03/31/20162014 76687 RxNorm Comme nt: Creat ed By: Holley buckCre ated Date: 2014 10:23 :41 AM; Not Available [facility] 6 03:55:38 935771 cefdinir medicatio n Not available Not available Not available 10/06/2020 13704 RxNorm Jacqueline Lora [facility] 15:59:52 Medications Name Sig Start Date Stop Date Status Note LastModified by Organization Details LastModified Time Singulair 10 mg tablet Daily active Frequency: daily;Medic ation Description : montelukast ; Dosage:1; Route:oral; refills:5; Quantity:30 tablet Not Available Not Available Not Available Multiple Vitamin capsule Daily active Duration: 30 days;Freque ncy: daily;Medic ation Description : multivitami n; Dosage:1; Route:oral; refills:3; Quantity:10 0 capsule Not Available Not Available Not Available Claritin 10 mg tablet Daily active Frequency: daily;Medic ation Description : loratadine; Dosage:1; Route:oral; refills:0; Quantity:30 tablet Not Available Not Available Not Available iron 50 mg iron tablet active Medication Description : iron polysacchar josé; Route:oral; refills:0 Not Available Not Available Not Available tramadol 50 mg tablet active Medication Description : tramadol; Route:oral; refills:0 Not Available Not Available Not Available estradiol 1 mg tablet active Duration: 10 days;Medica tion Description : estradiol; Route:oral; refills:0; Quantity:30 tablet Not Available Not Available Not Available Vitamin C active Medication Description : ascorbic acid; refills:0 Not Available Not Available Not Available potassium chloride Daily active Frequency: daily;Medic ation Description : potassium chloride; Dosage:1; refills:5; Quantity:30 Not Available Not Available Not Available Vitamin B-12 active Duration: 10 days;Medica tion Description : cyanocobala min; Route:oral; refills:0; Quantity:30 tablet Not Available Not Available Not Available Calcium-Vit cano D active Medication Description : calcium-vit cano D; Route:oral; refills:0 Not Available Not Available Not Available levothyroxi ne active Medication Description : levothyroxi ne; refills:0 Not Available Not Available Not Available amitriptyli ne-chlordia zepoxide Four times a day active Duration: 10 days;Freque ncy: qid;Medicat ion Description : amitriptyli ne-chlordia zepoxide; Route:oral; refills:0; Quantity:12 0 tablet Not Available Not Available Not Available omeprazole active Medicatio n Description : omeprazole; refills:0 Not Available Not Available Not Available Prozac Daily active Frequency: daily;Medic ation Description : fluoxetine; Dosage:1; Route:oral; refills:0; Quantity:30 Not Available Not Available Not Available Celebrex Daily active Duration: 30 days;Freque ncy: daily;Medic ation Description : celecoxib; Dosage:1; Route:oral; refills:0; Quantity:30 capsule Not Available Not Available Not Available Lyrica active Medication Description : pregabalin; Route:oral; refills:0 Not Available Not Available Not Available Januvia active Medication Description : sitagliptin ; Route:oral; refills:0 Not Available Not Available Not Available Symbicort 160 mcg-4.5 mcg/actuati on HFA aerosol inhaler active Medication Description : budesonide- formoterol; Route:inhal ation; refills:0 Not Available Not Available Not Available Vitals None Recorded Social History None recorded. Functional Status None recorded. Mental Status None recorded. Family History Relationship Description Onset Age of this Age Resolved Age Notes LastModified by Organization Details LastModified Time Mother Diabetes mellitus [email or web address] Not available 2024 08:30:38 Mother Essential hypertension [email or web address] Not available 08:31:01 Father Diabetes mellitus [email or web address] Not available 2024 08:30:38 Father Essential hypertension [email or web address] Not available 08:31:01 Maternal Grandmother Epilepsy [email or web address] Not available 02/06 08:31:53 Medical History No medical history recorded. Gynecological HistoryNo gynecological history recorded. Obstetrics History GPAL:G 0 P 0 0 0 0 Immunizations Vaccine Type Date Status Note Provider Nam e and Address Organization Details Recorded Time Hep A, adult 8 completed Not Available [facility] 03/05/2025 11:56:18 Tdap 8 completed Not Available [facility] 03/05/2025 11:56:18 Influenza, split virus, quadrivalent, PF 8 completed Not Available [facility] 03/05/2025 11:56:18 pneumococcal polysaccharide PPV23 9 completed Not Available [facility] 03/05/2025 11:56:18 Hep A, adult 9 completed Not Available [facility] 03/05/2025 11:56:18 Influenza, split virus, quadrivalent, PF 9 completed Not Available [facility] 03/05/2025 11:56:18 Influenza, recombinant, quadrivalent, PF 0 completed Not Available [facility] 03/05/2025 11:56:18 COVID-19, mRNA, LNP-S, PF, 100 mcg/0.5mL dose or 50 mcg/0.25mL dose 1 completed Not Available [facility] 03/05/2025 11:56:18 COVID-19, mRNA, LNP-S, PF, 100 mcg/0.5mL dose or 50 mcg/0.25mL dose 1 completed Not Available [facility] 03/05/2025 11:56:18 COVID-19, mRNA, LNP-S, PF, 100 mcg/0.5mL dose or 50 mcg/0.25mL dose 1 completed Not Available [facility] 03/05/2025 11:56:18 Influenza, split virus, quadrivalent, PF 1 completed Not Available [facility] 03/05/2025 11:56:18 Influenza, MDCK, quadrivalent, PF 2 completed Not Available [facility] 03/05/2025 11:56:18 Pneumococcal conjugate PCV20, polysaccharide LGF570 conjugate, adjuvant, PF 2 completed Not Available [facility] 03/05/2025 11:56:18 COVID-19, mRNA, LNP-S, bivalent, PF, 50 mcg/0.5 mL or 25mcg/0.25 mL dose 2 completed Not Available [facility] 03/05/2025 11:56:18 Influenza, MDCK, quadrivalent, PF 3 completed Not Available [facility] 03/05/2025 11:56:18 Influenza, MDCK, trivalent, PF 4 completed Not Available [facility] 03/05/2025 11:56:18 Past Encounters Encounter ID Performer Location Encounter Start Date Encounter Closed Date Diagnosis/Indication Diagnosis SNOMED-CT Code Diagnosis ICD10 Code Diagnosis IMO Codes Diagnosis Note [id number] STEFANI MAYA MD OPHTHALMO [address] FLO[address] [place] [id number] 03/05/2025 08:14:27 03/05/2025 09:53:39 Artificial lens present 347155043 Z96.1 44023 stable, mr today Allergic conjunctivitis of bilateral eyes 0962836637 05239 H10.13 422858 pataday/za ditor prn Nevus of right iris 6808 761036 18720 D31.41 72852933 monitor for changes1 year Health Concerns Section Related Observation LastModified by Organization Detai ls LastModified Time None Recorded Concern Status LastModified by Organization Details LastModified Time None Recorded Advance Directives Directive None Recorded Payers Insurance Date Sequence Insurance Name Policy Number Policy Giordano Covered Member ID Giordano Member ID Guarantor Name 03/10/2025 1 [place]MEDICARE [facility]) [id number] Neetu Zavala [id number] Neetu Murillo OBGyn Episode No OBEpisode recorded.
--- OUTSIDE RECORDS SUMMARY | 2025-04-05 09:51 | XMS_ITS | Encounter Summary ---
Author Organization [employer] ([place], [place], [place], [place], [place]) Address [address] [place] [address] Care Team Providers Care Nuclear Power Plant Engineer Name Role Phone Anujlizbet Salima Tate SWANN Primary Care Provider Encounter Details Date Type Department Care Team (Late st Contact Info) Description 10/04/2020 Transcribed Document [facility] [place] Medicine [address] [place] [address] ProviderQuincy MD [address] [place], [place] [address] Social History Tobacco Use Types Packs/Day Years [...] [facility] MEDICARE REPL Policy Number: [id number] Authorization Number: Insurance Primary Name : [place] MED[place] REPL Policy Number: [id number] Authorization Status-Primary : Awaiting callback Reference Number-Primary : [id number] Authorized Service Begin Date-Primary : 10/03/2020 EDT Authorization Comments-Primary : Clinicals submitted via [employer] for IP approval Historical Authorization Comments-Primary : No Authorization Comments Found DEISY LIRA, RN - 10/04/2020 8:24 EDT documented in this encounter Plan of Treatment Not on file documented as of this encounter Visit Diagnoses Not on filedocumented in this encounter Care Teams Nuclear Power Plant Engineer Relationship Specialty Start Date End Date Salima Gonzáles, [address] [facility] [address] [place] [address] PCP - General Family Medicine 02/09/23 documented as of this encounter
--- OUTSIDE RECORDS SUMMARY | 2025-04-05 09:51 | XMS_ITS | Encounter Summary ---
Author Organization [employer] ([place], [place], [place], [place], [place]) Address [address] [place] [address] Care Team Providers Care Fisher Troll Line Name Role Phone Anujlizbet Salima Tate SWANN Primary Care Provider [phone] Encounter Details Date Type Department Care Team (Late st Contact Info) Description 10/04/2020 Transcribed Document [facility] [place] [address] ProviderQuincy MD [address] [place] [address] [id number] Social History Tobacco Use Types Packs/Day Years [...] Left renal calculus. PLAN: Ureteroscopy with laser. /[id number] Gatito Menendez MD FP/AQ / [facility] / MODL /[id number] Electronically signed by [place] [facility] Conversion Steamtable Worker Cerner at 08/23/2022 11:00 AM CDT documented in this encounter Plan of Treatment Not on file documented as of this encounter Visit Diagnoses Not on filedocumented in this encounter Care Teams Fisher Troll Line Relationship Specialty Start Date End Date Salima Gonzáles, [address] [address] PCP - General Family Medicine 02/09/23 documented as of this encounter
--- OUTSIDE RECORDS SUMMARY | 2025-04-05 09:51 | XMS_ITS | Clinical Summary ---
Author Organization [facility] [place] [address] Care Team Providers Care Tile Roofer Name Role Phone Unavailable Primary Care Provider [...] Screening 1982 DTaP/TDaP/Td (1 - Tdap) 12/21/1983 Cologuard 2009 Colon Cancer Screening 2009 Colonoscopy 2009 FIT 2009 Sigmoidoscopy 2009 Virtual Colonography 2009 Pneumococcal Vaccine 50+ (1 of 1 - PCV) 2014 Zoster (1 of 2) 2014 COVID-19 Vaccine ( - 2024-2 6 season) 2025 Influenza Vaccine (#1) 2025 Hepatitis B Vaccine Aged Out No longe r eligible based on patient's age to complete this topic Meningococcal B Vaccine Aged Out No l onger eligible based on patient's age to complete this topic
--- OUTSIDE RECORDS SUMMARY | 2025-04-05 09:51 | XMS_ITS | Encounter Summary ---
Author Organization [employer] ([place], [place], [place], [place], [place]) Address [address] [place] [address] Care Team Providers Care Surgical Supply Assistant Name Role Phone Salima Gonzáles DO Primary Care Provider [phone] Encounter Details Date Type Department Care Team (Late st Contact Info) Description 10/05/2020 Transcribed Document [facility] [place] [address] [place] [address] ProviderQuincy MD [address] [place] [address] Social History Tobacco Use Types Packs/Day Years [...] On: 10/05/2020 13:56 EDT by EVONNE GABRIEL, DIANE-Whipper Beater Initial Assessment I Previously Documented Living Environment [...] : father Enter Doctors Name : Salima Petras Does Patient have PCP Listed? : Yes Legal Guardian : No Is Guardianship Needed : No EVONNE GABRIEL RN-Whipper Beater - 10/05/2020 13:56 EDT Initial Assessment II Sensory and Motor Deficits : None Current Home Treatments and Equipment : Nebulizer Services and Community Resources : Home Health (Comment: Pt states that she has used a couple of HH agencies in the past after her knee replacement [EVONNE GABRIEL RN-Whipper Beater - 10/05/2020 13:56 EDT] ) Services and Community Resources Addl Comments : Signature of Nayeli nath 8-9 years ago after knee replacement EVONNE GABRIEL RN-Whipper Beater - 10/05/2020 13:56 EDT Discharge Needs I Anticipated Discharge Date : 10/05/2020 EDT Anticipated Discharge To, CM : Home independently Current Home Treatment/Equipment : Current Home Treatment/Equipment No qualifying data available. Post Acute/Home Treatments : None Documentation Status Complete : Yes EVONNE GABRIEL RN-Whipper Beater - 10/05/2020 13:56 EDT Discharge Needs II Professional Skilled Services : Professional Skilled Services No qualifying data available. Needs Assistance with Transportation : No EVONNE GABRIEL RN-Whipper Beater - 10/05/2020 13:56 EDT Narrative Note Narrative Note : Received from [facility] to here due to kidney stone. Urology consulted. Pt had ureteroscopy, laser lithotripsy with stent placement. Met with Pt at the bedside. Role of CM explained. Pt states that she is ADL independent, lives home alone. Plans are to return home when discharged. No needs antcipated/verbalized at this time. RRS is low @ 37, boost 5. CM will follow. EVONNE GABRIEL RN-Whipper Beater - 10/05/2020 13:56 EDT Electronically signed by Nuzhat Barahona Conversion Electrical Engineering Technician Michael at 08/23/2022 11:07 AM CDT documented in this encounter Plan of Treatment Not on file documented as of this encounter Visit Diagnoses Not on filedocumented in this encounter Care Teams Surgical Supply Assistant Relationship Specialty Start Date End Date Salima Gonzáles, DO [address] [facility] [address] [place] [address] PCP - General Family Medicine 02/09/23 documented as of this encounter
--- OUTSIDE RECORDS SUMMARY | 2025-04-05 09:51 | XMS_ITS | Encounter Summary ---
Author Organization [employer] ([place], [place], [place], [place], [place]) Address [address] [place] [address] Care Team Providers Care Ac/Dc Rewinder Name Role Phone Anujlizbet Salima Tate SWANN Primary Care Provider [phone] Encounter Details Date Type Department Care Team (Late st Contact Info) Description 10/23/2020 Transcribed Document [facility] [place] [address] [place] [address] ProviderQuincy MD [address] [place], [place] [address] Social History Tobacco Use Types Packs/Day Years [...] Insurance 1 Health Plan: [facility] MEDICARE REPL Policy Number: [id number] Authorization Number: Insurance Primary Name : [place] MEDICARE REPL Policy Number: [id number] Authorization Status-Primary : Denied Auth/Referral Contact Name-Primary : DC+ Reference Number-Primary : [id number] Authorized Service Begin Date-Primary : 10/03/2020 EDT Authorization Comments-Primary : Per Mary ok to bill under part b. emailed to billing. Historical Authorization Comments-Primary : Comment 1: Discharge date and summary faxed. (Katia Pratt, Stack Attendant 10/13/2020 15:02) Comment 2: Email to David/Mary/MOSHE (JUSTEN HARTLEY, Rn-Utilization Review 10/13/2020 10:20) Comment 3: Rec fax from [place] 10/12/20 States admission has been denied. Fax to Jacque Tabor (TEMI LAMBERT, Philanthropy Officer 10/12/2020 14:42) Comment 4: Per Jinny remains pending (JACQUE HOFFMANN RN 10/12/2020 12:06) Comment 5: Faxed dc summary via [employer] (JACQUE HOFFMANN RN 10/11/2020 12:12) Comment 6: Remains pending per [employer] (JACQUE HOFFMANN RN 10/11/2020 12:11) Comment 7: Email sent to jinny (JACQUE HOFFMANN RN 10/09/2020 15:11) Comment 8: Clinicals faxed via [employer] for IP approval (DEISY LIRA RN 10/05/2020 14:13) Comment 9: Clinicals submitted via [employer] for IP approval (DEISY LIRA RN 10/04/2020 08:24) JACQUE HOFFMANN RN - 10/23/2020 12:34 EDT Electronically signed by Alec Barahona Conversion Dermatologist And Dermatopathologist Cerner at 08/23/2022 10:49 AM CDT documented in this encounter Plan of Treatment Not on file documented as of this encounter Visit Diagnoses Not on filedocumented in this encounter Care Teams Ac/Dc Rewinder Relationship Specialty Start Date End Date Salima Gonzáles, DO [address] [place] [address] PCP - General Family Medicine 02/09/23 documented as of this encounter
--- OUTSIDE RECORDS SUMMARY | 2025-04-05 09:51 | XMS_ITS | Encounter Summary ---
Author Organization [facility] Address [address] [place] [address] Care Team Providers Care Passenger Tire Inspector Name Role Phone Salima Gonzáles DO Primary Care Provider [phone] Encounter Details Date Type Department Care Team (Late st Contact Info) Description 10/07/2024 Results Follow-Up [facility] [address] [place] [address] Alea Juarez, CERTIFIED PHARMACY TECH [address] [place] [address] Social History Tobacco Use Types Packs/Day Years [...] on filedocumented in this encounter Care Teams Passenger Tire Inspector Relationship Specialty Start Date End Date Salima Gonzáles DO [facility] [place] [address] PCP - General Family Medicine 02/21/17 documented as of this encounter
--- OUTSIDE RECORDS SUMMARY | 2025-04-05 09:51 | XMS_ITS | Encounter Summary ---
Author Organization [employer] ([place], [place], [place], [place], [place]) Address [address] [place] [address] Care Team Providers Care Heel Seat Filler Name Role Phone Salima Gonzáles Tate SWANN Primary Care Provider [phone] Encounter Details Date Type Department Care Team (Late st Contact Info) Description 10/05/2020 Transcribed Document [facility] [place] Family [place] [address] [place] [address] ProviderQuincy MD [address] [place], [place] [address] Social History Tobacco Use Types Packs/Day Years [...] on filedocumented in this encounter Care Teams Heel Seat Filler Relationship Specialty Start Date End Date Salima Gonzáles DO [address] [facility] [address] [place] [address] PCP - General Family Medicine 02/09/23 documented as of this encounter
--- OUTSIDE RECORDS SUMMARY | 2025-04-05 09:51 | XMS_ITS | Encounter Summary ---
Author Organization [employer] ([place], [place], [place], [place], [place]) Address [address] [place] [address] Care Team Providers Care Pin Ticket Machine Operator Name Role Phone Salima Gonzáles DO Primary Care Provider [phone] Encounter Details Date Type Department Care Team (Late st Contact Info) Description 10/06/2020 Transcribed Document [facility] [place] [address] ProviderQuincy MD [address] [place] [address] Social History Tobacco Use Types Packs/Day Years [...] On: 10/06/2020 19:03 EDT by Jacque Ledezma WOOD PATTERNMAKER APPRENTICE Patient Resource Center Provider Status : EST Other Established Provider Name : Dr. Salima [facility] Patient Phone Number : [phone] Patient Insurance Type : Medicare Source of [...] at ED : Other Primary Language : [place] Patient Resource Center Comment : Scheduled hosptial f/u appts with PCP & Urology. Advised pt of appt information via telephone. Mailed appt reminders. Faxed H&P to PCP's office. Emailed appt information to case work aide. Follow Up Needed : No Jacque Ledezma, WOOD PATTERNMAKER APPRENTICE - 10/06/2020 19:03 EDT documented in this encounter Plan of Treatment Not on file documented as of this encounter Visit Diagnoses Not on filedocumented in this encounter Care Teams Pin Ticket Machine Operator Relationship Specialty Start Date End Date Salima Gonzáles, [address] [facility] [address] [place] [address] PCP - General Family Medicine 02/09/23 documented as of this encounter
--- OUTSIDE RECORDS SUMMARY | 2025-04-05 09:51 | XMS_ITS | Encounter Summary ---
Author Organization [employer] ([place], [place], [place], [place]) Address [address] [place] [address] Care Team Providers Care Electronics Inspector Name Role Phone Salima Gonzáles DO Primary Care Provider [phone] Encounter Details Date Type Department Care Team (Late st Contact Info) Description 10/04/2020 Transcribed Document [facility] [place] [address] [place] [address] ProviderQuincy MD [address] [place] [address] Social History Tobacco Use Types [...] on filedocumented in this encounter Care Teams Electronics Inspector Relationship Specialty Start Date End Date Salima Gonzáles, DO [address] [place] [address] PCP - General Family Medicine 02/09/23 documented as of this encounter
--- OUTSIDE RECORDS SUMMARY | 2025-04-05 09:52 | XMS_ITS | Encounter Summary ---
Author Organization [employer] [facility] ([place], [place], [place], [place], [place]) Address [address] [place] [address] Care Team Providers Care Crutcher Helper Name Role Phone Eliecer Salima Tate SWANN Primary Care Provider [phone] Encounter Details Date Type Department Care Team (Late st Contact Info) Description 10/08/2019 Transcribed Document [facility] [place] [address] [place] [address] ProviderQuincy MD [address] [place] [address] Social History Tobacco Use Types Packs/Day Years [...] 10/08/19 09:53:00 (10/08/19 10:02:18) Electronically signed by Nuzhat Barahona Conversion Programmer Analyst Consultant Cerner at 08/23/2022 11:05 AM CDT documented in this encounter Plan of Treatment Not on file documented as of this encounter Visit Diagnoses Not on filedocumented in this encounter Care Teams Crutcher Helper Relationship Specialty Start Date End Date Salima Gonzáles, [address] [address] PCP - General Family Medicine 02/09/23 documented as of this encounter
--- OUTSIDE RECORDS SUMMARY | 2025-04-05 09:52 | XMS_ITS | Clinical Summary ---
Author Organization [facility] , [facility] Address [address] [place] [address] Phone Care Team Providers Care Science Professor Name Role Phone Isiah Sheridan DPM Unavailable [phone] Salima Gonzáles DO Primary Care Provider [phone] Reason for Visit and Chief Complaint The Chief Complaint is: Rt hip pain Problems Includes: Problems addressed during this encounter and other active Problems Current Visit Onset Date Resolved Date Provider Nasima goins Status Lower Back Pain 06/02/2024 Mathew Gordon PA-C A ctive Last Documented On 5 10:43AM ; [facility], [facility] Joint Pain Hip Right 06/02/2024 Mathew Gomes Active Last Documented On 10:02AM ; [facility], [facility] Plan of Treatment Patient was seen by myself Mahtew Gordon PA-C. Patient will follow up MRI lumbar spine. - Last Documented On 06/16/2024 8:22AM ; [facility], [facility] Pending Tests Order Diagnosis Results Due Ordering P rovider Radiology - MRI MRI Lumbar Spine Low back pain, unspecified 06/16/24 Mathew Gordon PA-C Last Documented On 5 8:22AM ; [facility], [facility] Instructions to patient Lose weight Last Documented On 11:14AM ; [facility] Assessments Includes: Assessments from this encounter Findings - Overweight - Last Documented On 06/16/2024 8:22AM ; [facility] Low back pain - Last Documented On 06/16/2024 8:22AM ; [facility] Instructions Includes: Instructions from this encounter Instructions to patient Lose weight Last Documented On 5 11:14AM ; [facility] Medical Equipment - Implanted Devices Includes: Current Devices No Medical Equipment Recorded Medications Includes: Medications discussed during this encounter and other current Medications Current Medications (continue as prescribed) Zoryve 0.3% External Cream 05/22/2024 Provider: Diagnosis: Last Documented On 5 10:03AM By Mihir Inman ; [facility] buPROPion HCl ER (SR) 150 MG Oral Tablet Extended Release 12 Hour 04/28/2024 Provider: Salima Gonzáles DO Diagnosis: Last Documented On 5 10:03AM By Mihir Inman ; [facility] Emgality 120 MG/ML Subcutane ous Solution Auto-injector 04/28/2024 Provider: Salima Gonzáles DO Diagnosis: Last Documented On 5 10:03AM By Mihir Inman ; [facility] FLUoxetine HCl 40 MG Oral Capsule 04/28/2024 Provide r: Salima Gonzáles DO Diagnosis: Last Documented On 5 10:03AM By Mihir Inman ; [facility] FreeStyle Niels 2 Sensor Miscellaneous 04/28/2024 Pr ovider: CHARLES GARCIA MD Diagnosis: Last Documented On 5 10:03AM By Mihir Inman ; [facility] hydrOXYzine HCl 10 MG Oral Tablet 04/28/2024 Provide r: Salima Gonzáles DO Diagnosis: Last Documented On 5 10:03AM By Mihir Inman ; [facility] Levothyroxine Sodium 125 MCG Oral Tablet 04/28/2024 Provider: CHARLES GARCIA MD Diagnosis: Last Documented On 5 10:03AM By Mihir Inman ; [facility] Loratadine 10 MG Oral Tablet 04/28/2024 Provider: Salima Gonzáles DO Diagnosis: Last Documented On 5 10:03AM By Mihir Inman ; [facility] Montelukast Sodium 10 MG Oral Tablet 04/28/2024 Prov ider: Salima Gonzáles DO Diagnosis: Last Documented On 5 10:03AM By Mihir Inman ; [facility] Nurtec 75 MG Oral Tablet Disintegrating 04/28/2024 P rovider: Salima L Eliecer SWANN Diagnosis: Last Documented On 5 10:03AM By Mihir Inman ; [facility] Pregabalin 150 MG Oral Capsule 04/28/2024 Provider: Salima Gonzáles DO Diagnosis: Last Documented On 5 10:03AM By Mihir Inman ; [facility] Simvastatin 5 MG Oral Tablet 04/28/2024 Provider: Salima Gonzáles DO Diagnosis: Last Documented On 5 10:04AM By Mihir Inman ; [facility] Montelukast Sodium 10 MG Oral Tablet 04/28/2024 Prov ider: Salima Gonzáles DO Diagnosis: Last Documented On 5 10:26AM By Mihir Inman ; [facility] Linzess 72 MCG Oral Capsule 04/11/2024 Provider: Salima Gonzáles DO Diagnosis: Last Documented On 5 10:04AM By Mihir Inman ; [facility] Pantoprazole Sodium 40 MG Oral Tablet Delayed Release 04/11/2024 Provider: Diagnosis: Last Documented On 5 10:04AM By Mihir Inman ; [facility] Sucralfate 1 GM Oral Tablet 04/11/2024 Provider: Diagnosis: Last Documented On 5 10:04AM By Mihir Inman ; [facility] HYDROcodone-Acetaminophen 5- 325 MG Oral Tablet 04/10/2024 Provider: Salima Gonzáles DO Diagnosis: Last Documented On 5 10:26AM By Mihir Inman ; [facility] Hyoscyamine Sulfate 0.125 MG Oral Tablet 04/09/2024 Provider: Diagnosis: Last Documented On 5 10:26AM By Mihir Inman ; [facility] Fluconazole 200 MG Oral Tablet 04/05/2024 Provider: Diagnosis: Last Documented On 5 10:26AM By Mihir Inman ; [facility] Sulfamethoxazole-Trimethoprim 400-80 MG Oral Tablet Provider: Diagnosis: Last Documented On 5 10:26AM By Mihir Inman ; [facility] Sulfamethoxazole-Trimethoprim 400-80 MG Oral Tablet Provider: Diagnosis: Last Documented On 5 10:26AM By Mihir Inman ; [facility] Emgality 120 MG/ML Subcutane ous Solution Auto-injector 03/19/2024 Provider: Salima Gonzáles DO Diagnosis: Last Documented On 5 10:26AM By Mihir Inman ; [facility] Linzess 72 MCG Oral Capsule 03/14/2024 Provider: Salima Gonzáles DO Diagnosis: Last Documented On 5 10:26AM By Mihir Inman ; [facility] Nystatin-Triamcinolone 37864 0-0.1 UNIT/GM-% External Cream 03/14/2024 Provider: Slaima Gonzáles DO Diagnosis: Last Documented On 5 10:26AM By Mihir Inman ; [facility] Nystatin-Triamcinolone 43650 0-0.1 UNIT/GM-% External Cream 03/14/2024 Provider: Salima Gonzáles DO Diagnosis: Last Documented On 5 10:26AM By Mihir Inman ; [facility] Medications Administered Includes: Administered Medications from this encounter No Administered Medications Recorded Vital Signs Includes: Vital Signs from this encounter Vital Name 06/02/2024 10:27A Height (in) 61 Weight (lb) 245 Body Mass Index 46.3 Body Surface Area 2.1 Pain Level 4 Last Documented: On 06/02/2024 10:27A M ; [facility] Results Includes: Results discussed during this encounter No Results Recorded For Specified Dates History of Present Illness Includes: History of Present Illness from this encounter HPI Neetu AponteJakobTerence is a 58 year old female. - Symptoms pain better: heat pain worse: sitting long periods, laying down. - Allergy list reviewed - Problem list reviewed - Medication list reviewed - Previous history of new onset pain Injury is not work related or an automotive accident. had condition for a year or more - Sharp pain Symptoms - Stabbing - Pain is occasional (25% of the time) - Pain is throbbing - Pain is dull, aching - Patient pain level from 1-10: 7 - Yes, previous treatment. Dr. Salima Gonzáles - History of Home Exercise - - Review of medications documented Patient is here today with complaints of right hip pain that is what she describes but seems to be more in the right posterior buttock. She has had this problem for about a year does not radiate down the leg it is worse with sitting and lying down. She has tried some heat with this. No physical therapy. No bowel or bladder issues with this. She says physical therapy is cost prohibitive for her due to the co- pay. She can not take anti-inflammatories she has had previous gastric surgery Social History Description Last Updated No caffeine use 06/02/2024 Last Documented On 5 8:22AM ; [facility] Not a current smoker. 06/02/2024 Last Documented On 5 8:22AM ; [facility] Not exercising regularly 06/02/2024 Last Documented On 5 8:22AM ; [facility] Not using alcohol 06/02/2024 Last Documented On 5 8:22AM ; [facility] Not using drugs 06/02/2024 Last Documented On 5 8:22AM ; [facility] Recent change in diet 06/02/2024 Last Documented On 5 8:22AM ; [facility] Smoking Status Unknown Procedures and Surgical History Includes: Procedures from this encounter Procedures Code Diagnosis Performing Provider Service Location Service Date X-RAY EXAM OF LOWER SPINE 2-3 VIEWS LIMITED [address] Other low back pain Mathew Gordon PA-C [facility] 06/02/2024 Last Documented On 5 2:15PM ; [facility] X-ray [facility] [id number] Last Documented On 5 11:10AM ; [facility] Surgical History Last Updated History of hernia repair 06/02/2024 Last Documented On 5 8:22AM ; [facility] History of History of Gallbladder 2024 Last Documented On 5 8:22AM ; [facility] History of hysterectomy 06/02/2024 Last Documented On 5 8:22AM ; [facility] History of Previous Fractures 06/02/2024 Last Documented On 5 8:22AM ; [facility], [facility] History of total knee arthroplasty 06/02 Last Documented On 5 8:22AM ; [facility] Past Surgical History: Gastric bypass Last Documented On 5 8:22AM ; [facility] Medical History Includes: Medical History addressed during this encounter Description Last Updated History of Anemia 06/02/2024 Last Documented On 5 8:22AM ; [facility] History of arthritis 06/02/2024 Last Documented On 5 8:22AM ; [facility] History of asthma 06/02/2024 Last Documented On 5 8:22AM ; [facility] History of depression 06/02/2024 Last Documented On 5 8:22AM ; [facility] History of diabetes mellitus 06/02/2024 Last Documented On 5 8:22AM ; [facility] History of Fractures 06/02/2024 Last Documented On 5 8:22AM ; [facility] History of Heartburn / Acid Reflux 06/02 Last Documented On 5 8:22AM ; [facility] History of Hypertension 06/02/2024 Last Documented On 5 8:22AM ; [facility] History of Sleep Apnea 06/02/2024 Last Documented On 5 8:22AM ; [facility] History of Thyroid Disease 06/02/2024 Last Documented On 5 8:22AM ; [facility] Family History Includes: Family History addressed during this encounter Description Last Updated Stroke / Seizures 06/02/2024 Last Documented On 5 8:22AM ; [facility] Review of Systems Includes: Review of Systems from this encounter Systemic: Feeling tired. No recent weight loss and no recent weight gain. Head: Headache. No sinus pain. Eyes: No vision problems, no Cataracts, no Glasses/Contacts, and no Glaucoma. Otolaryngeal: Hearing loss and tinnitus. Cardiovascular: No chest pain or discomfort and no palpitations. Hypertension. No High Cholesterol. Pulmonary: Daytime asthma symptoms and chronic cough. No wheezing. Gastrointestinal: Heartburn. No abdominal pain. No Indigestion, no Peptic Ulcer, and no GI Stomach Bleed. Ulcers. No Acid Reflux. Endocrine: No hot flashes. Muscle weakness and Diabetes. No Hypothyroid. Hyperthyroid. Hematologic: No easy bleeding. A tendency for easy bruising and Anemia. Musculoskeletal: Arthritis. No lower back pain. Soft tissue swelling and pain localized to one or more joints. Neurological: No dizziness, no convulsions, and no numbness. Psychological: Anxiety, emotional lability, and depression. No insomnia. Crying for no reason. Skin: No dry skin. No Ulcers and no Scars. Rash: Allergic and Immunologic: No complaint of seasonal allergic reaction. Mental Status Includes: Mental Status from this encounter Description Anxiety Functional Status Includes: Functional Status from this encounter No Functional Status Recorded Physical Exam Includes: Physical Exam from this encounter Allergies Includes: Active Allergies Substance Type Reaction Onset Date Resolved Date Statu s Morphine Sulfate Allergy 06/02/2024 Ac tive Last Documented On 5 11:06AM ; [facility] Levaquin Allergy 06/02/2024 Active Last Documented On 5 11:07AM ; [facility] Cefdinir Allergy 06/02/2024 Active Last Documented On 5 11:08AM ; [facility] Encounters Encounter Provider Location Date Check-In Time Check-Out Time Diagnosis Physician Specified Mathew Gordon PA-C [facility] 06/02/19 25 10:08AM 10:49AM Overweight Insurance Includes: Active Insurance Policies Plan Name Member ID Group # Subscriber Relationship Effect jhony Dates 1 - [facility] ([place]) Medicare [id number] Neetu Murillo Self Clinical Notes Includes: Clinical Notes from this encounter * Progress note Date Encounter Last Documented by 06/02/2024 Physician Specified Last travonumen matheus on 06/16/2024; 8:22 AM, Mathew Gordon PA-C; [facility] Active Problems & Conditions - Joint Pain in the Right Hip - Lower Back Pain Chief Complaint The Chief Complaint is: Rt hip pain. Referred Here Referred by. History of Present Illness Neetu Murillo is a 58 year old female. - Symptoms pain better: heat pain worse: sitting long periods, laying down. - Allergy list reviewed - Problem list reviewed - Medication list reviewed - Previous history of new onset pain Injury is not work related or an automotive accident. had condition for a year or more - Sharp pain Symptoms - Stabbing - Pain is occasional (25% of the time) - Pain is throbbing - Pain is dull, aching - Patient pain level from 1-10: 7 - Yes, previous treatment. Dr. Salima Gonzáles - History of Home Exercise - - Review of medications documented Patient is here today with complaints of right hip pain that is what she describes but seems to be more in the right posterior buttock. She has had this problem for about a year does not radiate down the leg it is worse with sitting and lying down. She has tried some heat with this. No physical therapy. No bowel or bladder issues with this. She says physical therapy is cost prohibitive for her due to the co- pay. She can not take anti-inflammatories she has had previous gastric surgery Current Medication - buPROPion HCl ER (SR) 150 MG Oral Tablet Extended Release 12 Hour 30 days, 0 refills - Emgality 120 MG/ML Subcutaneous Solution Auto-injector 30 days, 0 refills - Emgality 120 MG/ML Subcutaneous Solution Auto-injector 30 days, 0 refills - Fluconazole 200 MG Oral Tablet 1 days, 0 refills - FLUoxetine HCl 40 MG Oral Capsule 90 days, 0 refills - FreeStyle Niels 2 Sensor Miscellaneous 28 days, 0 refills - HYDROcodone-Acetaminophen 5-325 MG Oral Tablet 5 days, 0 refills - hydrOXYzine HCl 10 MG Oral Tablet 30 days, 0 refills - Hyoscyamine Sulfate 0.125 MG Oral Tablet 30 days, 0 refills - Levothyroxine Sodium 125 MCG Oral Tablet 90 days, 0 refills - Linzess 72 MCG Oral Capsule 30 days, 0 refills - Linzess 72 MCG Oral Capsule 30 days, 0 refills - Loratadine 10 MG Oral Tablet 90 days, 0 refills - Montelukast Sodium 10 MG Oral Tablet 90 days, 0 refills - Montelukast Sodium 10 MG Oral Tablet 90 days, 0 refills - Nurtec 75 MG Oral Tablet Disintegrating 15 days, 0 refills - Nystatin-Triamcinolone 775880-3.1 UNIT/GM-% External Cream 30 days, 0 refills - Nystatin-Triamcinolone 029324-5.1 UNIT/GM-% External Cream 30 days, 0 refills - Pantoprazole Sodium 40 MG Oral Tablet Delayed Release 60 days, 0 refills - Pregabalin 150 MG Oral Capsule 90 days, 0 refills - Simvastatin 5 MG Oral Tablet 90 days, 0 refills - Sucralfate 1 GM Oral Tablet 14 days, 0 refills - Sulfamethoxazole-Trimethoprim 400-80 MG Oral Tablet 7 days, 0 refills - Sulfamethoxazole-Trimethoprim 400-80 MG Oral Tablet 7 days, 0 refills - Zoryve 0.3% External Cream 30 days, 0 refills Past Medical/Surgical History Reported: History of Fractures. Diagnoses: Asthma Anemia Sleep Apnea Heartburn / Acid Reflux Thyroid Disease Hypertension. Diabetes mellitus. Arthritis. Depression Surgical: - Past Surgical History: Gastric bypass - Hernia repair - Hysterectomy - History of Gallbladder - Previous Fractures - Total knee arthroplasty Social History Not a current smoker. Current diet: Recent change in diet. Caffeine use: No caffeine use. Alcohol: Not using alcohol. Drug Use: Not using drugs. Habits: Not exercising regularly. Allergies - Cefdinir - Levaquin - Morphine Sulfate Family History Stroke / Seizures Review Of Systems Systemic: Feeling tired. No recent weight loss and no recent weight gain. Head: Headache. No sinus pain. Eyes: No vision problems, no Cataracts, no Glasses/Contacts, and no Glaucoma. Otolaryngeal: Hearing loss and tinnitus. Cardiovascular: No chest pain or discomfort and no palpitations. Hypertension. No High Cholesterol. Pulmonary: Daytime asthma symptoms and chronic cough. No wheezing. Gastrointestinal: Heartburn. No abdominal pain. No Indigestion, no Peptic Ulcer, and no GI Stomach Bleed. Ulcers. No Acid Reflux. Endocrine: No hot flashes. Muscle weakness and Diabetes. No Hypothyroid. Hyperthyroid. Hematologic: No easy bleeding. A tendency for easy bruising and Anemia. Musculoskeletal: Arthritis. No lower back pain. Soft tissue swelling and pain localized to one or more joints. Neurological: No dizziness, no convulsions, and no numbness. Psychological: Anxiety, emotional lability, and depression. No insomnia. Crying for no reason. Skin: No dry skin. No Ulcers and no Scars. Rash: Allergic and Immunologic: No complaint of seasonal allergic reaction. Physical Findings - Vitals taken 06/02/2024 10:27 am Height 61 in Weight 245 lbs Body Mass Index 46.3 kg/m2 Body Surface Area 2.1 m2 Pain Level 4 Pleasant oriented x3 she is overweight No pain with the knee right hip range motion. 5/5 [facility] gastrocs quadriceps tibialis anterior strength bilaterally 2+ Achilles and patellar reflexes bilaterally negative straight leg raise bilaterally Tests Outside facility x-rays of the right hip were negative two views lumbar spine show previous gastric surgery clips since some did not degenerative changes with the back 06/02/2024 Assessment - Overweight Low back pain Previous Tests Imaging: X-Ray: X-ray [facility]. Available previous imaging studies were reviewed Available previous history reviewed Counseling/Education - Tobacco non-user - Use of tobacco assessment performed - Lose weight Plan StartCited - Low back pain, unspecified Radiology/MRI: MRI Lumbar Spine EndCited Patient was seen by myself Mathew Gordon PA-C. Patient will follow up MRI lumbar spine. Notes This dictation was done with voice recognition software and may contain errors and omissions.
--- OUTSIDE RECORDS SUMMARY | 2025-04-05 09:52 | XMS_ITS | Encounter Summary ---
Author Organization [employer] ([place], [place], [place], [place], [place]) Address [address] [place] [address] Care Team Providers Care Ruffling Hemmer Automatic Name Role Phone Salima Gonzáles Primary Care Provider [phone] Encounter Details Date Type Department Care Team (Late st Contact Info) Description 10/03/2020 Transcribed Document [facility] [place] [address] [place] [address] ProviderQuincy MD [address] [place], [place] [id number] Social History Tobacco Use Types Packs/Day Years [...] on filedocumented in this encounter Care Teams Ruffling Hemmer Automatic Relationship Specialty Start Date End Date Salima Gonzáles, [address] [facility] [address] [place] [address] PCP - General Family Medicine 02/09/23 documented as of this encounter
--- OUTSIDE RECORDS SUMMARY | 2025-04-05 09:52 | XMS_ITS | Encounter Summary ---
Author Organization [employer] ([place], [place], [place], [place], [place]) Address [address] [place] [address] Care Team Providers Care Certified Ophthalmic Technologist Name Role Phone Anujlizbet Salima Tate SWANN Primary Care Provider [phone] Encounter Details Date Type Department Care Team (Late st Contact Info) Description 10/03/2020 Transcribed Document [facility] Family Medicine [address] [place] [address] ProviderQuincy MD [address] [place], [place] [id number] Social History Tobacco Use Types Packs/Day Years Used Date Smoking Tobacco: Never Assessed Comments Unknown Sex and Gender Information Value Date Recorded Sex Assigned at Not on file Legal Sex Female 2:54 PM CDT Gender Identity Not on file Sexual Orientation Not on file documented as of this encounter Miscellaneous Notes * Cerner Conversion Note - Quincy ProviderMD - 10/03/2020 6:41 PM CDT Nutrition Assessment [...] HAY[address] RD, LD - 10/04/2020 13:56 EDT documented in this encounter Plan of Treatment Not on file documented as of this encounter Visit Diagnoses Not on filedocumented in this encounter Care Teams Certified Ophthalmic Technologist Relationship Specialty Start Date End Date Salima Gonzáles, DO [address] [address] PCP - General Family Medicine 02/09/23 documented as of this encounter
--- OUTSIDE RECORDS SUMMARY | 2025-04-05 09:52 | XMS_ITS ---
Author Organization [facility] , [facility] Address [address] [place] [address] Phone Care Team Providers Care Acid Treater Name Role Phone Isiah Sheridan DPM Unavailable [phone] Salima Gonzáles DO Primary Care Provider [phone] Problems Includes: Active, inactive, and resolved Problems All Visits Onset Date Resolved Date Provider Condition S tatus Lower Back Pain 06/02/2024 Mathew Gordon PA-C A ctive Last Documented On 5 10:43AM ; [facility] Joint Pain Hip Right 06/02/2024 Mathew GeorgeC Active Last Documented On 5 10:02AM ; [facility] Plan of Treatment Pending Tests Order Diagnosis Results Due Ordering P jolene Radiology - MRI MRI Lumbar Spine Low back pain, unspecified 06/16/24 Mathew Gordon PA-C Last Documented On 5 8:22AM ; [facility] Instructions to patient Lose weight Last Documented On 5 11:14AM ; [facility] Assessments Includes: Assessments for all patient encounters Findings Encounter Date Overweight Physician Specified with Mathew Gordon PA-C 06/02/2024 Last Documented On 5 8:22AM ; [facility] Instructions Includes: Instructions for all patient encounters Instructions to patient Lose weight Last Documented On 5 11:14AM ; [facility] Medical Equipment - Implanted Devices Includes: Current and historical Devices No Medical Equipment Recorded Medications Includes: Current and historical Medications Current Medications (continue as prescribed) Zoryve 0.3% External Cream 05/22/2024 Provider: Diagnosis: Last Documented On 5 10:03AM By Mihir Inman ; [facility], [facility] buPROPion HCl ER (SR) 150 MG Oral Tablet Extended Release 12 Hour 04/28/2024 Provider: Salima Gonzáles DO Diagnosis: Last Documented On 5 10:03AM By Mihir Inman ; [facility] Emgality 120 MG/ML Subcutane ous Solution Auto-injector 04/28/2024 Provider: Salima Gonzáles DO Diagnosis: Last Documented On 5 10:03AM By Mihir Inman ; [facility] FLUoxetine HCl 40 MG Oral Capsule 04/28/2024 Provide r: Salima Gonzáles DO Diagnosis: Last Documented On 5 10:03AM By Mihir Inman ; [facility] FreeStyle Niels 2 Sensor Miscellaneous 04/28/2024 Pr ovider: CHARLES GARCIA MD Diagnosis: Last Documented On 5 10:03AM By Mihir Inman ; [facility] hydrOXYzine HCl 10 MG Oral Tablet 04/28/2024 Provide r: Salima Gonzáles DO Diagnosis: Last Documented On 5 10:03AM By Mihir Inman ; [facility] Levothyroxine Sodium 125 MCG Oral Tablet 04/28/2024 Provider: CHARLES GARCIA MD Diagnosis: Last Documented On 5 10:03AM By Mihir Inman ; [facility] Loratadine 10 MG Oral Tablet 04/28/2024 Provider: Salima Gonzáles DO Diagnosis: Last Documented On 5 10:03AM By Mihir Inman ; [facility] Montelukast Sodium 10 MG Oral Tablet 04/28/2024 Prov ider: Salima Gonzáles DO Diagnosis: Last Documented On 5 10:03AM By Mihir Inman ; [facility] Nurtec 75 MG Oral Tablet Disintegrating 04/28/2024 P rovider: Salima Gonzáles DO Diagnosis: Last Documented On 5 10:03AM By Mihir Inman ; [facility], [facility] Pregabalin 150 MG Oral Capsule 04/28/2024 Provider: Salima Gonzáles DO Diagnosis: Last Documented On 5 10:03AM By Mihir Inman ; [facility], [facility] Simvastatin 5 MG Oral Tablet 04/28/2024 Provider: Salima Gonzáles DO Diagnosis: Last Documented On 5 10:04AM By Mihir Inman ; [facility], [facility] Montelukast Sodium 10 MG Oral Tablet 04/28/2024 Prov ider: Salima Gonzáles DO Diagnosis: Last Documented On 5 10:26AM By Mihir Inman ; [facility], [facility] Linzess 72 MCG Oral Capsule 04/11/2024 Provider: Salima Gonzáles DO Diagnosis: Last Documented On 5 10:04AM By Mihir Inman ; [facility], [facility] Pantoprazole Sodium 40 MG Oral Tablet Delayed Release 04/11/2024 Provider: Diagnosis: Last Documented On 5 10:04AM By Mihir Inman ; [facility], [facility] Sucralfate 1 GM Oral Tablet 04/11/2024 Provider: Diagnosis: Last Documented On 5 10:04AM By Mihir Inman ; [facility], [facility] HYDROcodone-Acetaminophen 5- 325 MG Oral Tablet 04/10/2024 Provider: Salima Gonzáles DO Diagnosis: Last Documented On 5 10:26AM By Mihir Inman ; [facility], [facility] Hyoscyamine Sulfate 0.125 MG Oral Tablet 04/09/2024 Provider: Diagnosis: Last Documented On 5 10:26AM By Mihir Inman ; [facility], [facility] Fluconazole 200 MG Oral Tablet 04/05/2024 Provider: Diagnosis: Last Documented On 5 10:26AM By Mihir Inman ; [facility], [facility] Sulfamethoxazole-Trimethoprim 400-80 MG Oral Tablet Provider: Diagnosis: Last Documented On 5 10:26AM By Mihir Inman ; [facility], [facility] Sulfamethoxazole-Trimethoprim 400-80 MG Oral Tablet Provider: Diagnosis: Last Documented On 5 10:26AM By Mihir Inman ; [facility], [facility] Emgality 120 MG/ML Subcutane ous Solution Auto-injector 03/19/2024 Provider: Salima Gonzáles DO Diagnosis: Last Documented On 5 10:26AM By Mihir Inman ; [facility], [facility] Linzess 72 MCG Oral Capsule 03/14/2024 Provider: Salima Gonzáles DO Diagnosis: Last Documented On 5 10:26AM By Mihir Inman ; [facility], [facility] Nystatin-Triamcinolone 59780 0-0.1 UNIT/GM-% External Cream 03/14/2024 Provider: Salima Gonzáles DO Diagnosis: Last Documented On 5 10:26AM By Mihir Inman ; [facility], [facility] Nystatin-Triamcinolone 65394 0-0.1 UNIT/GM-% External Cream 03/14/2024 Provider: Salima Gonzáles DO Diagnosis: Last Documented On 5 10:26AM By Mihir Inman ; [facility] Medications Administered Includes: Administered Medications in patient's chart No Administered Medications Recorded Vital Signs Includes: Vital Signs from 04/05/2024 through 04/05/2025 Vital Name 06/02/2024 10:27A Height (in) 61 Weight (lb) 245 Body Mass Index 46.3 Body Surface Area 2.1 Pain Level 4 Last Documented: On 06/02/2024 10:27A M ; [facility], [facility] Results Includes: Results from 04/05/2024 through 04/05/2025 No Results Recorded For Specified Dates History of Present Illness History of Present Illness not supported for this document type No History of Present Illness Recorded Social History Description Last Updated No caffeine use 06/02/2024 Last Documented On 5 8:22AM ; [facility], [facility] Not a current smoker. 06/02/2024 Last Documented On 5 8:22AM ; [facility], [facility] Not exercising regularly 06/02/2024 Last Documented On 5 8:22AM ; [facility], [facility] Not using alcohol 06/02/2024 Last Documented On 5 8:22AM ; [facility], [facility] Not using drugs 06/02/2024 Last Documented On 5 8:22AM ; [facility], [facility] Recent change in diet 06/02/2024 Last Documented On 5 8:22AM ; [facility], [facility] Smoking Status Unknown Procedures and Surgical History Includes: Procedures from 04/05/2024 through 04/05/2025 Procedures Code Diagnosis Performing Provider Service Location Service Date X-RAY EXAM OF LOWER SPINE 2-3 VIEWS LIMITED 26758 Other low back pain Mathew Gordon PA-C [facility] 06/02/2024 Last Documented On 5 2:15PM ; [facility] Surgical History Last Updated History of hernia repair 06/02/2024 Last Documented On 5 8:22AM ; [facility] History of History of Gallbladder 2024 Last Documented On 5 8:22AM ; [facility] History of hysterectomy 06/02/2024 Last Documented On 5 8:22AM ; [facility], [facility] History of Previous Fractures 06/02/2024 Last Documented On 5 8:22AM ; [facility] History of total knee arthroplasty 06/02 Last Documented On 5 8:22AM ; [facility], [facility] Past Surgical History: Gastric bypass Last Documented On 5 8:22AM ; [facility], [facility] Medical History Includes: Medical History in patient's chart Description Last Updated History of Anemia 06/02/2024 Last Documented On 5 8:22AM ; [facility], [facility] History of arthritis 06/02/2024 Last Documented On 5 8:22AM ; [facility] History of asthma 06/02/2024 Last Documented On 5 8:22AM ; [facility] History of depression 06/02/2024 Last Documented On 5 8:22AM ; [facility], [facility] History of diabetes mellitus 06/02/2024 Last Documented On 5 8:22AM ; [facility], [facility] History of Fractures 06/02/2024 Last Documented On 5 8:22AM ; [facility] History of Heartburn / Acid Reflux 06/02 Last Documented On 5 8:22AM ; [facility] History of Hypertension 06/02/2024 Last Documented On 5 8:22AM ; [facility] History of Sleep Apnea 06/02/2024 Last Documented On 5 8:22AM ; [facility] History of Thyroid Disease 06/02/2024 Last Documented On 5 8:22AM ; [facility] Family History Includes: Family History in patient's chart Description Last Updated Stroke / Seizures 06/02/2024 Last Documented On 5 8:22AM ; [facility] Review of Systems Review of Systems not supported for this document type No Review of Systems Recorded Mental Status Description Anxiety Functional Status No Functional Status Recorded Physical Exam Physical Exam not supported for this document type No Physical Exam Recorded Allergies Includes: Active, inactive, and resolved Allergies Substance Type Reaction Onset Date Resolved Date Statu s Morphine Sulfate Allergy 06/02/2024 Ac tive Last Documented On 5 11:06AM ; [facility] Levaquin Allergy 06/02/2024 Active Last Documented On 5 11:07AM ; [facility] Cefdinir Allergy 06/02/2024 Active Last Documented On 5 11:08AM ; [facility] Encounters Includes: Encounters from 04/05/2024 through 04/05/2025 Encounter Provider Location Date Check-In Time Check-Out Time Diagnosis Physician Specified Mathew Gordon PA-C [facility] 06/02/19 25 10:08AM 10:49AM Overweight Insurance Includes: Active Insurance Policies Plan Name Member ID Group # Subscriber Relationship Effect jhony Dates 1 - [facility] Medicare [id number] Neetu Murillo Self Clinical Notes Includes: Signed Clinical Notes starting from 04/20/2022 * Progress note Date Encounter Last Documented by 06/02/2024 Physician Specified Last avelina matheus on 06/16/2024; 8:22 AM, Mathew Gordon PA-C; [facility] Active Problems & Conditions - [...] Disintegrating 15 days, 0 refills - Nystatin-Triamcinolone 793504-9.1 UNIT/GM-% External Cream 30 days, 0 refills - Nystatin-Triamcinolone 956619-4.1 UNIT/GM-% External Cream 30 days, 0 refills [...] back pain Previous Tests Imaging: X-Ray: X-ray [facility]. Available previous imaging studies were reviewed [...]
--- OUTSIDE RECORDS SUMMARY | 2025-04-05 09:52 | XMS_ITS | Encounter Summary ---
Author Organization [employer] ([place], [place], [place], [place], [place]) Address [address] [place] [address] Care Team Providers Care Coke Handling Supervisor Name Role Phone Salima Gonzáles Tate SWANN Primary Care Provider [phone] Encounter Details Date Type Department Care Team (Late st Contact Info) Description 10/03/2020 Transcribed Document [facility] [place] Family Medicine [address] [place] [address] ProviderQuincy MD [address] [place], [place] [address] Social History Tobacco Use Types Packs/Day Years [...] EDT Pain Scale Intensity : 3 Janae Avery LPN - 10/05/2020 3:28 EDT Image 4 - Images currently included in the form version of this document have not been included in the text rendition version of the form. documented in this encounter Plan of Treatment Not on file documented as of this encounter Visit Diagnoses Not on filedocumented in this encounter Care Teams Coke Handling Supervisor Relationship Specialty Start Date End Date Salima Gonzáles, DO [address] [address] PCP - General Family Medicine 02/09/23 documented as of this encounter
--- OUTSIDE RECORDS SUMMARY | 2025-04-05 09:52 | XMS_ITS | Encounter Summary ---
Author Organization [employer] ([place], [place], [place], [place], [place]) Address [address] [place] [address] Care Team Providers Care Stockroom Keeper Name Role Phone Salima Mi DO Primary Care Provider [phone] Encounter Details Date Type Department Care Team (Late st Contact Info) Description 10/03/2020 Transcribed Document [facility] [place] [facility] Family Medicine [facility] [place] [address] ProviderQuincy MD [address] [place] [id number] Social History Tobacco Use Types Packs/Day Years [...] : 1965 Primary Care Provider SALIMA MI [facility] History of Present Illness Ms. Aponte is a 54-year-old female with kcn-ekhrqgt-sussmfatb diabetes, asthma and COPD with continued tobacco use, history of kidney stones, obesity. She was transferred to [facility] from [facility] on 10/03 for hydronephrosis and obstructing kidney [...] needed Consult urology, n.p.o. after midnight Tamsulosin #Tzv-czspusd-pijnjarrr diabetes Hold home medications Cover with SSI [...] Full Code, Continuous Order Electronically signed by Interface, [facility] Conversion [address] Supervisor Cerner at 08/23/2022 11:11 AM CDT documented in this encounter Plan of Treatment Not on file documented as of this encounter Visit Diagnoses Not on filedocumented in this encounter Care Teams Stockroom Keeper Relationship Specialty Start Date End Date Salima Mi, 8 [facility] [address] [place] [id number] PCP - General Family Medicine 02/09/23 documented as of this encounter
--- OUTSIDE RECORDS SUMMARY | 2025-04-05 09:52 | XMS_ITS | Encounter Summary ---
Author Organization [employer] ([place], [place], [place], [place], [place]) Address [address] [place] [address] Care Team Providers Care Blow Down Helper Name Role Phone Eliecer Salima Tate SWANN Primary Care Provider [phone] Encounter Details Date Type Department Care Team (Late st Contact Info) Description 10/03/2020 Transcribed Document [facility] [place] Family Medicine [address] [place] [address] ProviderQuincy MD [address] [place], [place] [id number] Social History Tobacco Use Types Packs/Day Years [...] Guardian : Father Contact Password : Matt Want Family/Rep/Phys Notified of Admit : No Emergency Contact #1 : Ambreen Neetu Emergency Contact #1 Emergency Contact #1 Relationship : daughter Emergency Contact #2 : Ray Aponte Emergency Contact #2 Emergency Contact #2 Relationship : father Primary Language : Turkish Communication Barrier : None Welfare Aide Needed : No Cassie Colon RN - [...] Scale Risk Level : 25-45 Medium Risk [place] Fall Interventions : Adequate lighting, Assistive devices [...] Source : Stated Height Entry Format : Abercrombie Height, Feet : 5 ft(Converted to: 152 cm, 60 Inch) Height, Inches : 1 Inch(Converted to: 0 ft 1 Inch, 2.54 cm) Clinical Height : 154.94 cm Weight Source : Bed scale Weight Entry Format : Abercrombie Clinical Dosing Weight : 118.18 kg Weight, Pounds : 260 lb Body Surface Area (BSA) : 2.11 m2 Body Mass Index : 49.2 kg/m2 (>HHI) [place] Body Weight : 47 kg Cassie Colon [...] Cassie Colon RN - 10/03/2020 18:30 EDT [place] Suicide Severity Rating Scale (C-SSRS) CSSRS Past [...] on filedocumented in this encounter Care Teams Blow Down Helper Relationship Specialty Start Date End Date Salima Gonzáles DO [address] [address] PCP - General Family Medicine 02/09/23 documented as of this encounter
--- OUTSIDE RECORDS SUMMARY | 2025-04-05 09:52 | XMS_ITS | Continuity of Care Document ---
Author Organization [facility] Address [address] [place] [address] Care Team Providers Care Packing And Wrapping Supervisor Name Role Phone MARCOS MI Primary Care Provider STEFANI MAYA Coastal Tug Mate Assessment No assessment recorded. Plan of Treatment [...] extraction and insertion of intraocular lens completed [facility] 03/05/2025 08:25:45 replacement of bilateral knee joints completed [facility] 03/05/2025 08:26:13 operation on bone injury of femur completed [facility] 03/05/2025 08:26:37 bypass of stomach completed [facility] 03/05/2025 08:27:22 total hysterectomy completed [facility] 03/05/2025 08:27:33 cholecystectomy completed [facility] 03/05/2025 08:27:40 procedure on intestine completed [facility] 03/05/2025 08:27:57 lithotripsy completed [facility] 03/05/2025 08:28:06 removal of urinary calculus completed [facility] 03/05/2025 08:28:15 Imaging Results None recorded. Procedure Notes None recorded. Medical Equipment None Reported. Allergies Allergen ID Allergen Name Allergen Category Reaction Reaction Severity Criticality Documentation Date Start Date Code Code System Note Provider Name and Address Organization Details Recorded Time 524975 morphine sulfate medicatio n Not available Not available Not available 03/31/20162014 57082 RxNorm Comme nt: Creat ed By: Holley buckCre ated Date: 2014 10:23 :41 AM; Not Available [facility] 03:55:38 678344 cefdinir medicatio n Not available Not available Not available 10/06/2020 00501 RxNorm Jacqueline [facility] 15:59:52 Medications Name Sig Start Date Stop [...] Hep A, adult 8 completed Not Available [facility] 03/05/2025 11:56:18 Tdap 8 completed Not Available [facility] 03/05/2025 11:56:18 Influenza, split virus, quadrivalent, PF 8 completed Not Available [facility] 03/05/2025 11:56:18 pneumococcal polysaccharide PPV23 9 completed Not Available [facility] 03/05/2025 11:56:18 Hep A, adult 9 completed Not Available [facility] 03/05/2025 11:56:18 Influenza, split virus, quadrivalent, PF 9 completed Not Available [facility] 03/05/2025 11:56:18 Influenza, recombinant, quadrivalent, PF 0 completed Not Available [facility] 03/05/2025 11:56:18 COVID-19, mRNA, LNP-S, PF, 100 mcg/0.5mL dose or 50 mcg/0.25mL dose 1 completed Not Available [facility] 03/05/2025 11:56:18 COVID-19, mRNA, LNP-S, PF, 100 mcg/0.5mL dose or 50 mcg/0.25mL dose 1 completed Not Available [facility] 03/05/2025 11:56:18 COVID-19, mRNA, LNP-S, PF, 100 mcg/0.5mL dose or 50 mcg/0.25mL dose 1 completed Not Available [facility] 03/05/2025 11:56:18 Influenza, split virus, quadrivalent, PF 1 completed Not Available [facility] 03/05/2025 11:56:18 Influenza, MDCK, quadrivalent, PF 2 completed Not Available [facility] 03/05/2025 11:56:18 Pneumococcal conjugate PCV20, polysaccharide IME546 conjugate, adjuvant, PF 2 completed Not Available [facility] 03/05/2025 11:56:18 COVID-19, mRNA, LNP-S, bivalent, PF, 50 mcg/0.5 mL or 25mcg/0.25 mL dose 2 completed Not Available [facility] 03/05/2025 11:56:18 Influenza, MDCK, quadrivalent, PF 3 completed Not Available [facility] 03/05/2025 11:56:18 Influenza, MDCK, trivalent, PF 4 completed Not Available [facility] 03/05/2025 11:56:18 Past Encounters Encounter ID Performer Location Encounter Start Date Encounter Closed Date Diagnosis/Indication Diagnosis SNOMED-CT Code Diagnosis ICD10 Code Diagnosis IMO Codes Diagnosis Note [id number] STEFANI MAYA MD [facility]PH[facility] [address] [place] [address] 03/05/2025 08:14:27 03/05/2025 09:53:39 Artificial lens present 918338481 Z96.1 80899 stable, mr today Allergic conjunctivitis of bilateral eyes 4134515577 69799 H10.13 210214 pataday/za ditor prn Nevus of right iris 6808 129084 13904 D31.41 10663337 monitor for changes1 year Health Concerns Section Related Observation LastModified by Organization Detai ls LastModified Time None Recorded Concern Status LastModified by Organization Details LastModified Time None Recorded Payers Encounter Date Sequence Insurance Name Policy Number Policy Giordano Covered Member ID Giordano Member ID Guarantor Name 03/05/2025 1 [place]MEDICARE [facility]) [id number] Neetu Zavala [id number] Neetu Murillo OBGyn Episode No OBEpisode recorded.
--- OUTSIDE RECORDS SUMMARY | 2025-04-05 09:52 | XMS_ITS | Encounter Summary ---
Author Organization [employer] ([place], [place], [place], [place], [place]) Address [address] [place] [address] Care Team Providers Care Clinical Nurse Occupational Medicine Name Role Phone Salima Gonzáles Primary Care Provider [phone] Encounter Details Date Type Department Care Team (Late st Contact Info) Description 10/03/2020 Transcribed Document [facility] [place] [facility] [place] [address] ProviderQuincy MD [address] [place], [place] [address] Social History Tobacco Use Types Packs/Day Years [...] 10/03/2020 19:18 EDT by Tereza Carrera Patient Bottle Booth Attendant Shira Phone Call for Consults Consult Phone Call/Page Attempt : First call Consult Reason : obstructing stone Physician Requesting Consult : TIM MCCORMICK, DO-INT Physician Requested for Consult : DILLON HOFFMANN MD Provider Team Notified Name : Urology Physician Covering for Consult : ANNABEL ZAMBRANO MD-URO Date and Time Call Returned : 10/04/2020 9:51 EDT Deandre, Tereza N, Patient Bottle Booth Attendant I - 10/04/2020 9:48 EDT Electronically signed by [place], [facility] Conversion Curtain Stitcher Cerner at 08/23/2022 10:50 AM CDT documented in this encounter Plan of Treatment Not on file documented as of this encounter Visit Diagnoses Not on filedocumented in this encounter Care Teams Clinical Nurse Occupational Medicine Relationship Specialty Start Date End Date Salima Gonzáles, DO 8 [facility] [address] [place] [address] PCP - General Family Medicine 02/09/23 documented as of this encounter
--- OUTSIDE RECORDS SUMMARY | 2025-04-05 09:52 | XMS_ITS | Encounter Summary ---
Author Organization [employer] ([place], [place], [place], [place], [place]) Address [address] [place] [address] Care Team Providers Care Cash Crop Farmer Name Role Phone Eliecer Salimajovanni Ybarra DO Primary Care Provider [phone] Encounter Details Date Type Department Care Team (Late st Contact Info) Description 10/08/2019 Transcribed Document [facility] [place] [address] [place] [address] ProviderQuincy MD [address] [place], [place] [id number] Social History Tobacco Use Types Packs/Day Years [...] Source : Stated Height Entry Format : [place] Height, Feet : 5 ft(Converted to: 152 cm, 60 Inch) Height, Inches : 1 Inch(Converted to: 0 ft 1 Inch, 2.54 cm) Clinical Height : 154.94 cm Weight Source : Standing scale Weight Entry Format : [place] Clinical Dosing Weight : 118.55 kg Weight, Pounds : 260.8 lb Body Surface Area (BSA) : 2.12 m2 Body Mass Index : 49.4 kg/m2 (>HHI) [place] Body Weight : 47 kg Whitney Huynh [...] Whitney Huynh Rn - 10/08/2019 9:18 EDT [place] Suicide Severity Rating Scale (C-SSRS) CSSRS Past [...] #2 Relationship : na Primary Language : [place] Communication Barrier : None Whitney Huynh Rn [...] Scale Risk Level : 0-24 Low Risk [place] Fall Interventions : Adequate lighting, Call device [...] on filedocumented in this encounter Care Teams Cash Crop Farmer Relationship Specialty Start Date End Date Salima Gonzáles DO [address] [place] [address] PCP - General Family Medicine 02/09/23 documented as of this encounter
--- OUTSIDE RECORDS SUMMARY | 2025-04-05 09:52 | XMS_ITS | Encounter Summary ---
Author Organization [employer] ([place], [place], [place], [place], [place]) Address [address] [place] [address] Care Team Providers Care Textile Science Technician Name Role Phone Salima Gonzáles Primary Care Provider [phone] Encounter Details Date Type Department Care Team (Late st Contact Info) Description 10/03/2020 Transcribed Document [facility] [place] Family Medicine [address] [place] [address] ProviderQuincy MD [address] [place], [place] [address] Social History Tobacco Use Types Packs/Day Years [...] filedocumented in this encounter Care Teams Textile Science Technician Relationship Specialty Start Date End Date Salima Gonzáles, [address] [address] PCP - General Family Medicine 02/09/23 documented as of this encounter
--- OUTSIDE RECORDS SUMMARY | 2025-04-05 09:52 | XMS_ITS | Encounter Summary ---
Author Organization [employer] ([place], [place], [place], [place], [place]) Address [address] [place] [address] Care Team Providers Care Anesthesiology Faculty Name Role Phone Sailma Gonzáles Tate SWANN Primary Care Provider [phone] Encounter Details Date Type Department Care Team (Late st Contact Info) Description 10/03/2020 Transcribed Document [facility] [place] [address] [place] [address] ProviderQuincy MD [address] [place], [place] [phone] Social History Tobacco Use Types Packs/Day Years [...] on filedocumented in this encounter Care Teams Anesthesiology Faculty Relationship Specialty Start Date End Date Salima Gonzáles DO [address] [address] PCP - General Family Medicine 02/09/23 documented as of this encounter
--- OUTSIDE RECORDS SUMMARY | 2025-04-05 09:52 | XMS_ITS | Encounter Summary ---
Author Organization [employer] ([place], [place], [place], [place], [place]) Address [address] [place] [address] Care Team Providers Care Laboratory Associate Name Role Phone Eliecer Salima Tate SWANN Primary Care Provider [phone] Encounter Details Date Type Department Care Team (Late st Contact Info) Description 10/08/2019 Transcribed Document [facility] [place] Family Medicine [address] [place] [address] ProviderQuincy MD [address] [place] [address] Social History Tobacco Use Types [...] Kate MD - 10/08/2019 10:35 AM CDT [facility] [place] [address] AMBIKA PIERRE :1965 Visit Time:10/08/2019 [...] 09 at 11:00am Where: [address] [id number]- Medications What How Much When Instructions Next [...] ??? Talk with a diet and nutrition worker (dietitian) if you have questions about specific [...] Bulgur wheat. Millet. Quinoa. Bran muffins. Popcorn. Colliers wafer crackers. Meats and other proteins [place], kidney, and cox beans. Soybeans. Split peas. [...] Cream cheese. Sour cream. Fats and oils [place]. Beverages Soft drinks. Other foods Cakes and [...] 04/23/2006 Document Revised: 02/25/2018 Document Reviewed: 02/25/2018 [employer] Patient Education ?? 2019 B[employer]arat. Gastritis, Adult Gastritis is swelling (inflammation) of [...] these instructions at home: Medicines ??? Take ttxb-oea-aaatpqz and prescription medicines only as told by [...] 10/09/2008 Document Revised: 09/10/2018 Document Reviewed: 09/10/2018 [employer] Patient Education ?? 2019 [employer]. Colitis Colitis is inflammation of the colon. [...] you start to feel better. ??? Take bqwy-tmb-huegyzz and prescription medicines only as told by [...] 05/31/2005 Document Revised: 10/24/2018 Document Reviewed: 10/24/2018 [employer] Patient Education ?? 2019 Elsevier Inc. [...] times a day. General instructions ??? Take iwad-bsj-kxwjapb and prescription medicines only as told by [...] 01/30/2009 Document Revised: 09/12/2018 Document Reviewed: 09/12/2018 [employer] Patient Education ?? 2019 B[employer]arat. Colonoscopy, Adult, Care After This sheet gives [...] soft and easy to digest. ??? Take zzjs-smc-tekmuuf or prescription medicines only as told by [...] 05/26/2011 Document Revised: 02/21/2018 Document Reviewed: 01/15/2017 [employer] Patient Education ?? 2019 [employer] Inc. Esophagogastroduodenoscopy, Care After Refer to this [...] 04/09/2013 Document Revised: 09/28/2016 Document Reviewed: 03/16/2016 [employer] Patient Education ?? 2019 Baccarat. metronidazole (me irma hawk) FIRST Metronidazole, Flagyl, [...] occur while taking metronidazole long term care administrator): ?? numbness, tingling, or burning pain in [...] may report side effects to FDA at 1-797-KEH-1256. What other drugs will affect metronidazole? Sometimes [...] drugs may affect metronidazole, including prescription and init-ixj-xhssllm medicines, vitamins, and herbal products. Not all [...] to ensure that the information provided by [employer]. ('Multum') is accurate, up-to-date, and complete, but no guarantee is made to that effect. Drug information contained herein may be time sensitive. [employer] information has been compiled for use by healthcare practitioners and consumers in the [place] and therefore [employer] does not warrant that uses outside of the [place] are appropriate, unless specifically indicated otherwise. [employer] drug information does not endorse drugs, diagnose patients or recommend therapy. [employer] drug information is an informational resource designed [...] effective or appropriate for any given patient. [employer] does not assume any responsibility for any aspect of healthcare administered with the aid of information [employer] provides. The information contained herein is not intended to cover all possible uses, directions, precautions, warnings, drug interactions, allergic reactions, or adverse effects. If you have questions about the drugs you are taking, check with your doctor, nurse or pharmacist. Copyright 7060-1588 [employer] Multum[employer] Inc. Version: 12.02. Revision Date: [...] may report side effects to FDA at 5-813-DZE-5735. What other drugs will affect linaclotide? Other drugs may interact with linaclotide, including prescription, ewda-jca-uqvcyqi, vitamin, and herbal products. Tell your doctor [...] to ensure that the information provided by [employer]. ('Multum') is accurate, up-to-date, and complete, but no guarantee is made to that effect. Drug information contained herein may be time sensitive. [employer] information has been compiled for use by healthcare practitioners and consumers in the [place] and therefore [employer] does not warrant that uses outside of the [place] are appropriate, unless specifically indicated otherwise. [employer] drug information does not endorse drugs, diagnose patients or recommend therapy. [employer] drug information is an informational resource designed [...] effective or appropriate for any given patient. [employer] does not assume any responsibility for any aspect of healthcare administered with the aid of information [employer] provides. The information contained herein is not intended to cover all possible uses, directions, precautions, warnings, drug interactions, allergic reactions, or adverse effects. If you have questions about the drugs you are taking, check with your doctor, nurse or pharmacist. Copyright 6616-0472 [employer]. Version: 4.02. Revision Date: 01/23/2017. pantoprazole (oral/injection) [...] while taking this medicine long term care administrator or more than once per day. What [...] may report side effects to FDA at 9-204-HGS-7246. What other drugs will affect pantoprazole? Tell your doctor about all your other medicines, especially: ?? digoxin; ?? methotrexate; or ?? a diuretic or 'water pill.' This list is not complete. Other drugs may affect pantoprazole, including prescription and tbpv-jkc-kjsfsli medicines, vitamins, and herbal products. Not all [...] to ensure that the information provided by [employer]. ('[employer]') is accurate, up-to-date, and complete, but no guarantee is made to that effect. Drug information contained herein may be time sensitive. [employer] information has been compiled for use by healthcare practitioners and consumers in the [place] and therefore [employer] does not warrant that uses outside of the [place] are appropriate, unless specifically indicated otherwise. Carbays drug information does not endorse drugs, diagnose patients or recommend therapy. Carbays drug information is an informational resource designed [...] effective or appropriate for any given patient. [facility] does not assume any responsibility for any aspect of healthcare administered with the aid of information [employer] provides. The information contained herein is not intended to cover all possible uses, directions, precautions, warnings, drug interactions, allergic reactions, or adverse effects. If you have questions about the drugs you are taking, check with your doctor, nurse or pharmacist. Copyright 9563-3794 [employer]. Version: 19.02. Revision Date: 10/30/2017. Emergency Awareness [...] Assistance with quitting is available by contacting 4-763-DYFG-NOW. This is a free resource providing counseling, [...] was given the opportunity to ask questions. Patient/Civil Engineering Teacher Name: Patient/Civil Engineering Teacher Signature: Relationship to Patient: Clinician/Hospital Civil Engineering Teacher Signature: Date: documented in this encounter Plan of Treatment Not on file documented as of this encounter Visit Diagnoses Not on filedocumented in this encounter Care Teams Laboratory Associate Relationship Specialty Start Date End Date Salima Gonzáles, [address] [facility] [address] [place] [address] PCP - General Family Medicine 02/09/23 documented as of this encounter
--- OUTSIDE RECORDS SUMMARY | 2025-04-05 09:52 | XMS_ITS | Encounter Summary ---
Author Organization [employer] ([place], [place], [place], [place], [place]) Address [address] [place] [address] Care Team Providers Care Project Asst Name Role Phone Salima Gonzáles Tate SWANN Primary Care Provider [phone] Encounter Details Date Type Department Care Team (Late st Contact Info) Description 10/03/2020 Transcribed Document [facility] [place] [address] [place] [address] ProviderQuincy MD [address] [place], [place] [phone] Social History Tobacco Use Types Packs/Day Years [...] #2 Relationship : father Primary Language : Jamaican Communication Barrier : None Spool Winder Needed : No Hoa Coleman RN - [...] Level : 46 or > High Risk [place] Fall Interventions : Adequate lighting, Assistive devices [...] (Last Updated: 08/25/2014 15:15:30 EDT by KENY DIAZ, DIANE) 10 or more cigarettes (1/2 pack or more)/day in last 30 days Smoking Status. Never Smokeless Tobacco Status. (Last Updated: 10/08/2019 09:19:36 EDT by Whitney Huynh, Diane) Alcohol: Date/Time of Last Drink: 4 months [...] Source : Stated Height Entry Format : [place] Height, Feet : 5 ft(Converted to: 152 cm, 60 Inch) Height, Inches : 1 Inch(Converted to: 0 ft 1 Inch, 2.54 cm) Clinical Height : 154.94 cm Weight Source : Bed scale Weight Entry Format : [place] Clinical Dosing Weight : 118.18 kg Weight, Pounds : 260 lb Body Surface Area (BSA) : 2.11 m2 Body Mass Index : 49.2 kg/m2 (>HHI) [place] Body Weight : 47 kg Hoa Coleman [...] Hoa Coleman RN - 10/04/2020 13:17 EDT [place] Suicide Severity Rating Scale (C-SSRS) CSSRS Past [...] filedocumented in this encounter Care Teams Project Asst Relationship Specialty Start Date End Date Salima Gonzáles DO [address] [address] PCP - General Family Medicine 02/09/23 documented as of this encounter
--- NOTE | 2025-04-05 09:56 | XR_ITS ---
PROCEDURE INFORMATION: Exam: XR Left Foot Complete; Alignment Exam date and time: 04/05/2025 9:58 AM Age: 59 years old Clinical indication: Pain; Foot; Left; Additional info: Evaluation of left foot pain TECHNIQUE: Imaging protocol: Radiologic exam of the left foot. Views: 3 or more views. COMPARISON: 1. CR XR FOOT WT BEARING LT 3V 04/23/2024 10:56 AM 2. CR XR FOOT WT BEARING LT 3V 02/08/2022 9:32 AM FINDINGS: Bones/joints: Three views of the foot. Oblique view with suboptimal bone detail. Osteopenia. No acute fracture identified. Normal alignment. Plantar and posterior calcaneal enthesophytes and degenerative change of the talonavicular joint similar to prior. Soft tissues: Unremarkable. IMPRESSION: No acute findings.
== END 2025-04-05 23:59 ==
LOC: RAD 09:49
PROVIDERS: PCP Family Medicine; Visit Provider Podiatrist
DX: M19.072 Primary osteoarthritis, left ankle and foot (principal); M85.872 Other specified disorders of bone density and structure, left ankle and foot; M77.32 Calcaneal spur, left foot
CPT/HCPCS: 73630

== ENCOUNTER 2025-04-07 23:28 | Emergency (ER) | payer MEDICARE, SELFPAY ==
--- NOTE | 2025-04-07 23:34 | HMH.EDGENADL ---
Discharge Plan Disposition Patient Disposition: Home, Self-Care Prescriptions Prescriptions: No Action Mounjaro 7.5 mg/0.5 mL pen injector SQ WEEKLY methylprednisolone 4 mg tablets,dose pack 4 mg PO PER PKG DIR Qty: 21 0RF diclofenac sodium [Voltaren Arthritis Pain] 1 % gel 4 g topical QID PRN (Reason: pain) Qty: 100 2RF Rx Instructions: apply to single knee, ankle, foot; for foot includes sole/toes/top of foot diclofenac sodium [Voltaren Arthritis Pain] 1 % gel 4 g topical QID PRN (Reason: pain) 30 Days Qty: 100 2RF Rx Instructions: apply to heel; ankle, foot; for foot includes sole/toes/top of foot loratadine 10 mg tablet 10 mg PO DAILY Nurtec ODT 75 mg tablet,disintegrating 75 mg PO DAILYP PRN (Reason: Migraine Headache) fluticasone propionate 50 mcg/actuation spray,suspension 1 - 2 spray intranasal DAILY Patient Comments: instill 1-2 SPRAYS IN EACH NOSTRIL EVERY DAY Rx Instructions: administer 1-2 sprays into each nostril every day Emgality Pen 120 mg/mL pen injector 120 mg SQ MONTHLY risankizumab-rzaa 150 MG/ML pen injector 150 mg SQ Q84D albuterol sulfate 90 mcg/actuation HFA aerosol inhaler 2 inh INHALATION Q6HP PRN (Reason: Shortness Of Breath Or Wheezing) Patient Comments: INHALE TWO PUFFS BY MOUTH EVERY 6 HOURS NEEDED FOR SHORTNESS OF BREATH OR wheezing Linzess 72 mcg capsule 72 mcg PO NEEDED PRN (Reason: Constipation) Patient Comments: TAKE ONE CAPSULE BY MOUTH EVERY DAY (DME) FreeStyle Niels 2 Sensor Kit MISCELLANEOUS Patient Comments: USE DIRECTED FOR CONTINUOUS GLUCOSE MONITORING furosemide 20 mg tablet 20 mg PO DAILYP PRN (Reason: Edema) Rx Instructions: PATIENT STATES SHE TAKES NEEDED FOR EDEMA pantoprazole 20 mg tablet,delayed release (DR/EC) 20 mg PO BID fluticasone propion-salmeterol [Advair Diskus] 100-50 mcg/dose Blister With Device 1 inh inhalation BIDRT 30 Days Qty: 60 0RF fluoxetine 40 MG capsule 40 mg PO BID bupropion HCl 150 MG tablet 150 mg PO BID simvastatin 5 MG tablet 5 mg PO HS levothyroxine 125 MCG tablet 125 mcg PO AM pregabalin 150 MG capsule 150 mg PO BID montelukast 10 MG tablet 10 mg PO PM Referrals Follow up/Referrals: Salima Gonzáles [Primary Care Provider, Medical] - See instructions Activity Restrictions/Add. Instructions Additional Instructions/Restrictions: Please follow-up with your primary care provider. Please return to the emergency department if you develop any new or worsening symptoms or become concerned for your health. Clinical Impressions Clinical Impression: Heartburn, Nausea & vomiting Print Language Print Language: Citizen Of [place] Discharge ED Provider: Reuben Noland General Adult HPI General Chief complaint: Chest Pain Stated complaint: chest heaviness, heartburn, headache, vomiting Time Seen by Provider: 04/07/25 23:34 History of Present Illness HPI narrative: 59-year-old female with 3 of gastric bypass, gastric ulcer, type 2 diabetes, presents for multiple complaints. She reports that she has had some chest type pressure and burning that feels kind of like reflux. She felt nauseous and threw up as well. She reports that she had a cardiac workup recently that came back very good. She does not have any personal history of SC. She denies shortness of breath. Has had a cholecystectomy. Related Data Home Medications ?Medication ?Instructions ?Recorded ?Confirmed bupropion HCl 150 mg tablet,12 hr 150 mg PO BID 08/11/18 04/06/25 sustained-release fluoxetine 40 mg capsule 40 mg PO BID 08/11/18 04/06/25 levothyroxine 125 mcg tablet 125 mcg PO AM 08/11/18 04/06/25 pregabalin 150 mg capsule 150 mg PO BID 08/11/18 04/06/25 simvastatin 5 mg tablet 5 mg PO HS 08/11/18 04/06/25 loratadine 10 mg tablet 10 mg PO DAILY 01/08/20 04/06/25 montelukast 10 mg tablet 10 mg PO PM 10/10/20 04/06/25 risankizumab-rzaa 150 mg/mL 150 mg SQ Q84D 10/28/21 04/06/25 subcutaneous pen injector fluticasone propionate 50 1 - 2 spray intranasal DAILY 02/07/24 04/06/25 mcg/actuation nasal spray,suspension galcanezumab-gnlm 120 mg/mL 120 mg SQ MONTHLY 02/07/24 04/06/25 subcutaneous pen injector (Emgality Pen) rimegepant 75 mg disintegrating 75 mg PO DAILYP PRN Migraine 02/07/24 04/06/25 tablet (Nurtec ODT) Headache albuterol sulfate 90 mcg/actuation 2 inh inhalation Q6HP PRN 04/07/24 11/26/24 aerosol inhaler Shortness Of Breath Or Wheezing flash glucose sensor (FreeStyle 04/07/24 11/26/24 Niels 2 Sensor kit) furosemide 20 mg tablet 20 mg PO DAILYP PRN Edema 04/07/24 04/06/25 linaclotide 72 mcg capsule 72 mcg PO NEEDED PRN 04/07/24 04/06/25 (Linzess) Constipation pantoprazole 20 mg tablet,delayed 20 mg PO BID 04/07/24 04/06/25 release tirzepatide 7.5 mg/0.5 mL mg SQ WEEKLY 04/06/25 04/06/25 subcutaneous pen injector (Mounjaro) Previous Rx's ?Medication ?Instructions ?Recorded fluticasone 100 mcg-salmeterol 50 1 inh inhalation BIDRT 30 days #60 04/07/24 mcg/dose blistr powdr for ea inhalation (Advair Diskus) diclofenac sodium 1 % topical gel 4 g topical QID PRN pain #100 grams 04/06/25 (Voltaren Arthritis Pain) diclofenac sodium 1 % topical gel 4 g topical QID PRN pain 30 days 04/06/25 (Voltaren Arthritis Pain) #100 grams methylprednisolone 4 mg tablets in 4 mg PO PER PKG DIR Pain, swelling 04/06/25 a dose pack #21 tabs Allergies Allergy/AdvReac Type Severity Reaction Status Date / Time cefdinir Allergy Severe Difficulty Verified 04/06/25 09:02 Breathing morphine (MORPHINE) Allergy Intermediate HALLUCINATI Verified 04/06/25 09:02 ONS levofloxacin (From Levaquin) Allergy Unknown Difficulty Verified 04/06/25 09:02 [facility] Disclaimer: The information contained in this section may have been updated after the patient was seen, as this information can be updated by other users. Medical History Left foot pain UTI (urinary tract infection) Acute kidney injury Hypokalemia Intractable abdominal pain Omental infarction NSIP (nonspecific interstitial pneumonitis) Fatty stool Bloating ILD (interstitial lung disease) Pyelonephritis Abdominal pain Strep sore throat Type 2 diabetes mellitus Colitis Chest pain Allergic rhinitis with postnasal drip Diabetes Acute viral syndrome Sinusitis Acute viral syndrome Conjunctivitis Hernia, internal Small bowel obstruction Primary osteoarthritis of both feet Posterior tibial tendinitis of left lower extremity BMI 45.0-49.9, adult Diarrhea Nausea and vomiting Abdominal pain Left femoral shaft fracture Left ureteral calculus Patient left without being seen Onychoincurvatum Nail dystrophy Arch pain of left foot Type 2 diabetes mellitus with diabetic neuropathy, without long-term current use of insulin Acquired equinus deformity of both feet Hydronephrosis Ureteral calculi Uncontrolled pain Hydronephrosis due to obstruction of ureter Kidney stone Bronchitis Complaint of pain of great toe Diabetic foot Pain of right heel UTI (urinary tract infection) Omental infarction History of femur fracture Ear noise/buzzing Hearing difficulty of both ears Urinary tract infection Kidney stone Migraine COPD (chronic obstructive pulmonary disease) Asthma Hyperlipidemia Anxiety Diabetes Hypertension Depression Surgical History History of gastric bypass History of knee replacement bilateral knees History of tubal ligation History of tonsillectomy History of hysterectomy (Unknown) History of cholecystectomy History of section Social History Smoking Status: Current every day smoker tobacco type: cigarettes packs per day: 0 and e-cigarettes smoking status stop date: Patient stated stopped 3 years ago how long ago did patient quit smoking: Stopped 3 years ago second hand exposure: No alcohol intake: never substance use type: denies use current occupational status: employed Travel in the last 8 weeks?: None household members: family housing: house current occupation: [employer] current occupational exposures/hazards: No caffeine: Yes Have you lived/traveled outside US in past 30 days?: No Contact w/someone who lives/traveled outside US past 30 days?: No Exposure to someone with infectious disease in past 14 days?: No Do you have a fever (greater than 100.4 F or 38 C)?: No Have you tested positive for COVID-19?: No Exposed to someone with COVID-19 in past 14 days?: No Do you have a sore throat?: No Do you have a cough?: No Do you have any weakness?: No Do you have any diarrhea?: No Are you experiencing any unusual bleeding?: No Do you have any muscle aches/pain?: No Do you have any abdominal pain?: Yes Are you experiencing loss of taste or smell?: No Other Medical History Have you received the Flu Vaccine for this season: No Have you received the Pneumonia Vaccine: No ROS Obtained: Yes All systems reviewed & no additional complaints except as documented Physical Exam General General appearance: alert and in no apparent distress Head Head exam: atraumatic and normocephalic Eye Eye exam: Present normal appearance, PERRL and EOMI ENT ENT exam: Present normal oropharynx and normal external ear exam Neck Neck exam: Present normal inspection and full ROM Chest Chest inspection: Present normal inspection and symmetric chest wall rise; Absent tenderness Respiratory Respiratory exam: Present normal lung sounds bilaterally; Absent respiratory distress Cardiovascular Cardiovascular exam: Present regular rate and normal rhythm Abdominal Exam Abdominal exam: Present soft; Absent distention, tenderness or guarding Extremities Exam Extremities exam: Present normal inspection; Absent edema or joint swelling Back Exam Back exam: Present normal inspection; Absent tenderness Neurological Exam Neurological exam: Present alert and oriented X3; Absent motor sensory deficit Psychiatric Psychiatric exam: Present normal affect and normal mood Skin Skin exam: Present warm, dry and normal color Lymphatic Lymphatic Findings: no adenopathy Medical Decision Making Medical Records Medical records reviewed: Yes I reviewed the patient's medical records. Screening: Per USPSTF and CDC recommendations, given the prevalence of disease in our region, it is our hospital?s policy to screen for HIV and viral Hepatitis for all patients aged 18 and over and those with ongoing risk factors. Aurelio Inquiry Pt receiving controlled substance: No Aurelio was queried for this patient: No Vital Signs: 04/07/25 23:35 04/07/25 23:39 04/07/25 23:41 Temperature 97.9 F 98.2 F Temperature Source Oral Oral Pulse Rate 74 81 Pulse Rate [Radial] 81 Respiratory Rate 16 18 Blood Pressure 134/78 Blood Pressure [Right Arm] 145/98 H Blood Pressure Mean [Right Arm] 113 02 Sat by Pulse Oximetry 100 98 Oxygen Delivery Method Room Air Room Air 04/08/25 03:36 Temperature 97.8 F Temperature Source Oral Pulse Rate 71 Pulse Rate [Radial] Respiratory Rate 18 Blood Pressure 134/78 Blood Pressure [Right Arm] Blood Pressure Mean [Right Arm] 02 Sat by Pulse Oximetry Oxygen Delivery Method Room Air Lab Data Lab results reviewed: Yes I reviewed the patient's lab results. Lab Results 04/07/25 23:43: WBC 7.7, RBC 5.21, Hgb 15.2, Hct 45.8, MCV 87.9, MCH 29.2, MCHC 33.2, RDW 13.5, Plt Count 317, MPV 10.2, Neut % (Auto) 47.2, Lymph % (Auto) 44.6, Warren % (Auto) 6.0, Eos % (Auto) 1.0, Baso % (Auto) 0.9, Neut # (Auto) 3.6, Lymph # (Auto) 3.4, Warren # (Auto) 0.5, Eos # (Auto) 0.1, Baso # (Auto) 0.1, D-Dimer 0.40, Sodium 135 L, Potassium 3.5, Chloride 101, Carbon Dioxide 25, Anion Gap 12.5, BUN 8, Creatinine 1.00, Estimated Creat Clear 45, Estimated GFR 57 L, Est GFR ( Amer) 68, Glucose 82, Calcium 9.8, Total Bilirubin 1.2, AST 32, ALT 34, Alkaline Phosphatase 95, Troponin I < 0.01, Total Protein 8.2 D, Albumin 4.7, Globulin 3.5 H, Albumin/Globulin Ratio 1.3, Lipase 161 04/08/25 02:39: Troponin I < 0.01 04/07/25 23:43 04/07/25 23:43 Orders (Tests/Meds): ED MEDICATIONS Discontinued Medications Generic Name Dose Route Start Last Admin Trade Name Christiano PRN Reason Stop Dose Admin Acetaminophen 1,000 mg 04/07/25 23:46 04/07/25 23:56 Acetaminophen 500mg Tab PO 04/07/25 23:47 1,000 mg ONCE ONE Administration Aspirin 324 mg 04/07/25 23:46 04/07/25 23:56 Aspirin 81mg Chewable Tablet PO 04/07/25 23:47 324 mg ONCE ONE Administration Belladonna Alkaloids 60 ml 04/07/25 23:46 04/07/25 23:57 Belladonna Alkaloids 60 Ml Ml PO 04/07/25 23:47 60 ml ONCE ONE Administration Ondansetron HCl 4 mg 04/07/25 23:47 04/07/25 23:57 Ondansetron 4mg/2ml Vial IV 04/07/25 23:48 4 mg ONCE ONE Administration ORDERS Category Date Time Status CXR --portable [XR chest portable] Stat Exams 04/07/25 23:46 Completed CBC w/Auto Diff [Complete Blood Count Auto Diff] Stat Lab 04/07/25 23:43 Completed CMP [Comprehensive Metabolic Panel] Stat Lab 04/07/25 23:43 Completed D-Dimer Stat Lab 04/07/25 23:43 Completed Lipase Stat Lab 04/07/25 23:43 Completed Troponin I Q3H Lab 04/07/25 23:43 Completed Troponin I Q3H Lab 04/08/25 02:39 Completed ECG Data Tracing #1: I reviewed this ECG and interpreted as documented below: Sinus rhythm, nonspecific T wave abnormality, ventricular rate of 79, no significant ST elevation ECG initial impression date: 04/07/25 ECG initial impression time: 23:36 HEART Score History (anamnesis): Slightly suspicious ECG: Non-specific disturbance Age: 45-65 years Risk factors: 1-2 risk factors Troponin: </= normal limit HEART Score: 3 Medical Decision Narrative: 59-year-old female with history of gastric bypass presents for chest pressure, nausea and vomiting, heartburn. History was obtained via interactive discussion with patient. On arrival, patient is [afebrile, hemodynamically stable, satting appropriately, alert, oriented x4, GCS 15], moving all extremities spontaneously. Full physical exam performed and significant for no significant physical exam abnormalities Differential includes but is not limited to ACS, PE, gastroenteritis, pancreatitis, gastric ulcer. Patient was given aspirin, Tylenol, Zofran, GI cocktail for symptomatic management and correction of underlying abnormalities. Workup initiated including basic labs, chest x-ray EKG troponin D-dimer. On re-evaluation, patient reports marked symptomatic improvement Laboratory workup independently interpreted by me and significant for negative initial troponin, negative D-dimer, negative lipase, no leukocytosis,. Imaging independently interpreted by me and significant for clear lungs bilaterally. See radiology read for full review of final results. EKG independently interpreted by me and significant for sinus rhythm. Patient was placed in ED observation status for cardiac monitoring and serial troponins. On reassessment, patient silvia hemodynamically stable. Remains normal sinus rhythm on the bus monitor. Second troponin returns undetectably low. Given this, low concern for cardiac pathology. Patient deemed appropriate discharge and outpatient management. These findings were communicated to patient and she was discharged in stable condition. Less than 30 minutes were utilized in preparing discharge. Procedures Risk/Benefits of Procedure(s) Were Explained: Yes Critical Care Critical Care Time Critical Care Time: No
--- OUTSIDE RECORDS SUMMARY | 2025-04-07 23:34 | XMS_ITS | Encounter Summary ---
Author Organization [employer] ([place], [place], [place], [place], [place]) Address [address] [place] [address] Care Team Providers Care Quill Collector Name Role Phone Salima Gonzáles Primary Care Provider [phone] Encounter Details Date Type Department Care Team (Late st Contact Info) Description 10/04/2020 Transcribed Document [facility] [place] Family Medicine [address] [place] [address] ProviderQuincy MD [address] [place], [place] [phone] Social History Tobacco Use Types Packs/Day Years Used Date Smoking Tobacco: Never Assessed Comments Unknown Sex and Gender Information Value Date Recorded Sex Assigned at Not on file Legal Sex Female 2:54 PM CDT Gender Identity Not on file Sexual Orientation Not on file documented as of this encounter Miscellaneous Notes * [employer]ner Conversion Note - Historical ProviderMD - 10/04/2020 2:00 AM CDT Service Order Dispatcher Chief Details Entered On: 10/04/2020 4:12 EDT Performed [...] on filedocumented in this encounter Care Teams Quill Collector Relationship Specialty Start Date End Date Salima Gonzáles DO [address] [address] PCP - General Family Medicine 02/09/23 documented as of this encounter
--- OUTSIDE RECORDS SUMMARY | 2025-04-07 23:34 | XMS_ITS | Encounter Summary ---
Author Organization [employer] ([place], [place], [place], [place], [place]) Address [address] [place] [address] Care Team Providers Care Dairy Processing Supervisor Name Role Phone Salima Gonzáles Primary Care Provider [phone] Encounter Details Date Type Department Care Team (Late st Contact Info) Description 10/04/2020 Transcribed Document [facility] [place] [address] [place] [address] ProviderQuincy MD [address] [place], [place] [phone] Social History Tobacco Use Types Packs/Day Years [...] on filedocumented in this encounter Care Teams Dairy Processing Supervisor Relationship Specialty Start Date End Date Salima Gonzáles DO [address] [phone] PCP - General Family Medicine 02/09/23 documented as of this encounter
--- OUTSIDE RECORDS SUMMARY | 2025-04-07 23:34 | XMS_ITS | Encounter Summary ---
Author Organization [facility] ([place], [place], [place], [place], [place]) Address [address] [place] [address] Care Team Providers Care Flagger Name Role Phone Salima Gonzáles Primary Care Provider [phone] Encounter Details Date Type Department Care Team (Late st Contact Info) Description 10/04/2020 Transcribed Document [facility] [place] [address] [place] [address] ProviderQuincy MD [address] [place], [place] [phone] Social History Tobacco Use Types Packs/Day Years [...] Kate MD - 10/04/2020 1:16 PM CDT [facility] Main OR IntraOp Summary Primary Physician: ANNABEL ZAMBRANO MD-URO Finalized Date/Time: 10/10/20 09:57:38 Pt. Name: AMBIKA PIERRE./Sex: 1965 Female Med Rec #: [id number] Physician: SUREKHA ARGUELLES MD Financial #: [id number] Pt. Type: I Room/Bed: [facility]/1 Admit/Disch: 10/03/20 18:06:00 - 10/05/20 16:59:00 Institution: [facility] IntraOp Case Attendance Entry 1 Entry 2 Entry 3 Case Attendee ANNABEL ZAMBRANO MD-URO Neha Duarte, Mendel Pierce RN Role Performed Surgeon/Proceduralist, Display Specialist, First Display Specialist, Second First Time In 10/04/20 13:03:00 10/04/20 13:03:00 10/04/20 13:03:00 Time Out 10/04/20 13:54:00 10/04/20 13:54:00 10/04/20 13:54:00 Procedure Ureteroscopy(Left) Ureteroscopy(Left) Ureteroscopy(Left) Other Attendee LASER Superficial Wound Closed By: Last Modified By: Neha Duarte Rn Moore, Kimberly A, Rn Moore, Kimberly A, Rn 10/04/20 13:54:29 10/04/20 13:54:29 10/04/20 13:54:29 Entry 4 Entry 5 Case Attendee Prema Rojas, VERONICA AU MD-ANS Flakeboard Line Tender Role Performed Scrub, First Anesthesiologist Time In 10/04/20 13:03:00 10/04/20 13:03:00 Time Out 10/04/20 13:54:00 10/04/20 13:54:00 Procedure Ureteroscopy(Left) Ureteroscopy(Left) Other Attendee Superficial Wound Closed By: Last Modified By: Neha Duarte Rn Moore, Kimberly A, Rn 10/04/20 13:54:29 10/04/20 13:54:29 [facility] IntraOp Case Attendance Audit 10/04/20 13:54:29 Laborer Airport Maintenance: [id number] Modifier: [id number] 1 <+> Time Out 1 <*> Procedure Ureteroscopy(Left) 2 <+> Time Out 2 <*> Procedure Ureteroscopy(Left) 3 <+> Time Out 3 <*> Procedure Ureteroscopy(Left) 4 <+> Time Out 4 <*> Procedure Ureteroscopy(Left) 5 <+> Time Out 5 <*> Procedure Ureteroscopy(Left) 10/04/20 13:43:04 Laborer Airport Maintenance: [id number] Modifier: [id number] <+> 1 Time In <+> 1 Procedure 2 <+> Time In 2 <*> Procedure Ureteroscopy(Left) 3 <+> Time In 3 <*> Procedure Ureteroscopy(Left) 4 <+> Time In 4 <*> Procedure Ureteroscopy(Left) 5 <+> Time In 5 <*> Procedure Ureteroscopy(Left) [facility] IntraOp Case Times Entry 1 Patient In Room Time 10/04/20 13:03:00 Out Room Time 10/04/20 13:54:00 Anesthesia Start Time 10/04/20 13:03:00 Stop Time 10/04/20 13:54:00 Surgery / Procedure Times Start Time 10/04/20 13:16:00 Stop Time 10/04/20 13:47:00 Last Modified By: Neha Duarte Rn 10/04/20 13:54:29 [facility] IntraOp Case Times Audit 10/04/20 13:54:29 Laborer Airport Maintenance: [id number] Modifier: [id number] <+> 1 Out Room Time <+> 1 Stop Time 10/04/20 13:48:00 Laborer Airport Maintenance: [id number] Modifier: [id number] <+> 1 Stop Time [facility] IntraOp Departure from OR Entry 1 Integumentary Assessment Integumentary WDL Assessment WDL Transfer/Handoff Transfer to PACU Phase I Handoff Method Bedside/Face to face, Phone call, Online nursing summary Post-op Transport Stretcher/rney Via Patient Transport Neha Duarte Rn, Accompanied by VERONICA AU MD-ANS Last Modified By: Neha Duarte Rn 10/04/20 13:38:09 [facility] IntraOp Fire Risk Assessment Entry 1 [...] Modified By: Neha Duarte Rn 10/04/20 13:38:19 [facility] IntraOp General Case Ems Educator 1 Case Information OR Cysto 01 [facility] Case Level 1 Room Verified Yes Wound Class II - Clean-Contaminated Specialty Urology Anesthesia Type General ASA Class 3E Diagnosis Preop Diagnosis LEFT RENAL STONE Postop Same As Preop No Postop Diagnosis SEE MD POST OP NOTES Last Modified By: Neha Duarte Rn 10/04/20 13:41:52 [facility] IntraOp Implant Log Entry 1 Type Implant (Synthetic) Implant Log Implant Type Other Implant STENT URET BRAID + Identification [id number] Description Implant Quantity 1 Implant Site LEFT URETER Implant [place] Identification Sci:Urology/Gynecology Strap Folding Machine Operator Name: Implant [id number] Identification Catalog Number Implant Expiration 03/25/23 Date Tissue Implant Last Modified By: Neha Duarte Rn 10/04/20 13:44:42 [facility] IntraOp Intraoperative Assessment Entry 1 Handoff [...] Modified By: Neha Duarte Rn 10/04/20 13:42:00 [facility] IntraOp Patient Positioning Entry 1 Procedure [...] Modified By: Neha Duarte Rn 10/04/20 13:42:19 [facility] IntraOp Sign In Entry 1 Patient, [...] Modified By: Neha Duarte Rn 10/04/20 13:42:22 [facility] IntraOp Sign Out Entry 1 RN [...] Modified By: Neha Duarte Rn 10/04/20 13:42:31 [facility] IntraOp Skin Prep Entry 1 Procedure Ureteroscopy(Left) Prescribed N/A Pre-Surgical Prep Completed Prep Area genitalia Intraop Prep Integumentary WDL Assessment WDL Prep Agents Betadine solution Prep by Mendel Borrego RN Hair Removal Methods No hair removal performed Last Modified By: Neha Duarte Rn 10/04/20 13:42:55 [facility] Intra Surgical Procedures Entry 1 Procedure Ureteroscopy Modifiers Left Additional URETEROSCOPY WITH LASER Procedure LEFT Description Primary Procedure Yes Primary Surgeon ANNABEL ZAMBRANO MD-URO Start 10/04/20 13:16:00 Stop 10/04/20 13:47:00 Anesthesia Type General Specialty Urology Wound Class II - Clean-Contaminated Last Modified By: Neha Duarte Rn 10/04/20 13:48:02 [facility] Intra Surgical Procedures Audit 10/04/20 13:48:02 Laborer Airport Maintenance: [id number] Modifier: [id number] <+> 1 Stop [facility] IntraOP Time Out Entry 1 Procedure [...] WATTSDR Correct Billing Electronically signed by [facility] Conversion Trailer Mechanic Cerner at 08/23/2022 11:10 AM CDT documented in this encounter Plan of Treatment Not on file documented as of this encounter Visit Diagnoses Not on filedocumented in this encounter Care Teams Flagger Relationship Specialty Start Date End Date Salima Gonzáles, [address] [facility] [address] [place] [address] PCP - General Family Medicine 02/09/23 documented as of this encounter
--- OUTSIDE RECORDS SUMMARY | 2025-04-07 23:34 | XMS_ITS | Encounter Summary ---
Author Organization [employer] ([place], [place], [place], [place], [place]) Address [address] [place] [address] Care Team Providers Care Tumbler Plater Name Role Phone Eliecer Salima Tate SWANN Primary Care Provider [phone] Encounter Details Date Type Department Care Team (Late st Contact Info) Description 10/09/2020 Transcribed Document [facility] [place] [address] [place] [address] ProviderQuincy MD [address] [place], [place] [id number] Social History Tobacco Use Types Packs/Day Years [...] Policy Numbers : Insurance 1 Health Plan: [facility] MEDICARE REPL Policy Number: [id number] Authorization Number: Insurance Primary Name : [employer] MED[employer]ARE REPL Policy Number: [id number] Authorization Status-Primary : Awaiting callback Reference Number-Primary : [id number] Authorized Service Begin Date-Primary : 10/03/2020 EDT Authorization Comments-Primary : Email sent to madelyn Historical Authorization Comments-Primary : Comment 1: Clinicals faxed via [employer] for IP approval (DEISY LIRA RN 10/05/2020 14:13) Comment 2: Clinicals submitted via [employer] for IP approval (DEISY LIRA RN 10/04/2020 08:24) PING HOFFMANN RN - 10/09/2020 15:11 EDT Electronically signed by [facility], [facility] Conversion Child Care Cerner at 08/23/2022 10:52 AM CDT documented in this encounter Plan of Treatment Not on file documented as of this encounter Visit Diagnoses Not on filedocumented in this encounter Care Teams Tumbler Plater Relationship Specialty Start Date End Date Salima Gonzáles, [address] [address] PCP - General Family Medicine 02/09/23 documented as of this encounter
--- OUTSIDE RECORDS SUMMARY | 2025-04-07 23:34 | XMS_ITS | Encounter Summary ---
Author Organization [employer] ([place], [place], [place], [place], [place]) Address [address] [place] [address] Care Team Providers Care Toe Closing Machine Tender Name Role Phone Salima Gonzáles DO Primary Care Provider [phone] Encounter Details Date Type Department Care Team (Late st Contact Info) Description 10/05/2020 Transcribed Document [facility] [place] Family Medicine [address] [place] [address] ProviderQuincy MD [address] [place], [place] [id number] Social History Tobacco Use Types Packs/Day Years [...] 10/05/2020 5:29 EDT Electronically signed by [place] [facility] Conversion Adult Day Care Worker Cerner at 08/23/2022 10:58 AM CDT documented in this encounter Plan of Treatment Not on file documented as of this encounter Visit Diagnoses Not on filedocumented in this encounter Care Teams Toe Closing Machine Tender Relationship Specialty Start Date End Date Salima Gonzáles DO [address] [place] [address] PCP - General Family Medicine 02/09/23 documented as of this encounter
--- OUTSIDE RECORDS SUMMARY | 2025-04-07 23:34 | XMS_ITS | Encounter Summary ---
Author Organization [employer] ([place], [place], [place], [place], [place]) Address [address] [place] [address] Care Team Providers Care Fiction Writer Name Role Phone Eliecer Salima Tate SWANN Primary Care Provider [phone] Encounter Details Date Type Department Care Team (Late st Contact Info) Description 10/11/[address] [facility] [place] Medicine [address] [place] [address] ProviderQuincy MD [address] [place], [place] [address] Social History Tobacco Use Types Packs/Day Years [...] Policy Numbers : Insurance 1 Health Plan: [facility] MEDIC[facility] REPL Policy Number: [id number] Authorization Number: Insurance Primary Name : [employer] MED[employer]ARE REPL Policy Number: [id number] Authorization Status-Primary : Awaiting callback Reference Number-Primary : [id number] Authorized Service Begin Date-Primary : 10/03/2020 EDT Authorization Comments-Primary : Faxed dc summary via [employer] Historical Authorization Comments-Primary : Comment 1: Remains pending per [employer] (PING HOFFMANN RN 10/11/2020 12:11) Comment 2: Email sent to madelyn (PING HOFFMANN RN 10/09/2020 15:11) Comment 3: Clinicals faxed via [employer] for IP approval (DEISY LIRA RN 10/05/2020 14:13) Comment 4: Clinicals submitted via [employer] for IP approval (DEISY LIRA RN 10/04/2020 08:24) PING HOFFMANN RN - 10/11/2020 12:12 EDT Electronically signed by [place] [facility] Conversion Power Saw Mechanic Cerner at 08/23/2022 10:56 AM CDT documented in this encounter Plan of Treatment Not on file documented as of this encounter Visit Diagnoses Not on filedocumented in this encounter Care Teams Fiction Writer Relationship Specialty Start Date End Date Salima Gonzáles DO [address] [address] PCP - General Family Medicine 02/09/23 documented as of this encounter
--- OUTSIDE RECORDS SUMMARY | 2025-04-07 23:34 | XMS_ITS | Continuity of Care Document ---
Author Organization [facility] Address [address] [place] [address] Care Team Providers Care Meat Boner Name Role Phone Salima Gonzáles MD Primary Care Provider [phone] Encounters Date Type Department Care Team Description 04/09/2024 6:26 PM EST - 04/11/2024 1:08 PM EST Hospital Encounter [facility] 7W Med/Surg [address] [place] [phone] Carlos Cannon MD Abreu, Cristy, MD Tammo, Sami, MD Holt, Tracy R, DESKIDDING MACHINE OPERATOR Intractable pain (Primary Dx); Abdominal pain, unspecified abdominal location; Epigastric pain Discharge Disposition: Home or Self Care 04/10/2024 1:24 PM EST Anesthesia Event [facility] Endoscopy [address] [place] [address] Clementina Mcadams CRNA Robbins, Lindsey, APRN 04/10/2024 12:30 PM EST - 04/10/2024 1:00 PM EST Surgery [facility] Endoscopy [address] [place] [phone] Salima Perla, DO EGD WITH BIOPSY 02/12/2024 10:18 AM EDT - 02/12/2024 11:59 PM EDT Hospital Encounter [facility] Radiology [address] [place] [address] Patrick Cole MD Periumbilical pain Discharge Disposition: Home or Self Care 02/12/2024 12:10 PM EDT Follow-Up [facility] [address] [place] [address] Patrick Cole MD Bariatric surgery status (Primary Dx); Class 3 severe obesity due to excess calories with serious comorbidity and body mass index (BMI) of 45.0 to 49.9 in adult 02/05/2024 2:20 PM EDT Follow-Up [facility] [address] [place] [address] Patrick Cole MD Bariatric surgery status (Primary Dx); Class 3 severe obesity due to excess calories with serious comorbidity and body mass index (BMI) of 45.0 to 49.9 in adult; Primary hypertension; Periumbilical pain 11/02/2021 7:30 PM EDT - 11/07/2021 3:04 PM EDT Hospital Encounter [facility] 7W Med/Surg [address] [place] [phone] Forrest Garrison MD Small bowel obstruction due to postoperative adhesions (Primary Dx); Morbid obesity with BMI of 45.0-49.9, adult; Diabetes mellitus type 2 in obese; Hypothyroidism, unspecified type; Primary hypertension; SBO (small bowel obstruction) Discharge Disposition: Home or Self Care 11/04/2021 11:38 AM EDT Anesthesia Event [facility] Periop Services [address] [place] [phone] Jeremy Briscoe MD Carpenter, Amanda, CRNA 11/04/2021 11:25 AM EDT - 11/04/2021 1:35 PM EDT Surgery [facility] Periop Services [address] [place] [phone] Patrick Cole MD LAPAROSCOPIC ADHESIOLYSIS Allergies [...] Mother Social History Smoking Status as of 04/07/2025 Tobacco Use Types Packs/Day Years Used Date [...] on file Medical Devices Implanted Type Area Band Booker Device Identifier Shelf Expiration Date Model / Serial / Lot Sealant [id number] - [id number] Implanted:Qty : 1 on 11/04/2021 by Patrick Cole MD at [facility] OTHER - IMPLANTS - OTHER N/A: Abdomen RODRIGUEZ 01/31/2023 [id number] / / [id number] Procedures Procedure Name Priority Date/Time Associated Diagnosis [...] - 139 mg/dL 04/11/2024 11:11 AM EST [facility] Blood VENOUS BLOOD SPECIMEN / Unknown 04/11/2024 11:06 AM EST 04/11/2024 11:11 AM EST us Iris Staley DESKIDDING MACHINE OPERATOR LAB BLOOD ORDERABLES Final Res ult [facility] [address] [place] [address] * CBC w/Diff (04/11/2024 4:39 AM EST) Only the most recent of7 resultswithin the time period is included. Pathologist [facility] White Blood Cells 5.92 4.50 - 11.00 10*3/uL LAB DEVICE: SYG[employer] LLCEX XN-10 04/11/2024 4:51 AM [facility] Red Blood Cells 4.30 4.00 - 5.20 10*6/uL LAB DEVICE: SYSMEX XN-10 04/11/2024 4:51 AM [facility] Hemoglobin 12.6 12.0 - 16.0 g/dL LAB DEVICE: SYSMEX XN-10 04/11/2024 4:51 AM [facility] Hematocrit 39.3 36.0 - 46.0 % LAB DEVICE: SYSMEX XN-10 04/11/2024 4:51 AM [facility] Mean Corpuscular Volume 91.4 80.0 - 100.0 fL LAB DEVICE: SYSMEX XN-10 04/11/2024 4:51 AM [facility] Mean Corpuscular Hemoglobin 29.3 26.0 - 34.0 pg LAB DEVICE: SYSMEX XN-10 04/11/2024 4:51 AM [facility] Mean Corpuscular Hemoglobin Concentration 32.1 31.0 - 37.0 g/dL LAB DEVICE: SYSMEX XN-10 04/11/2024 4:51 AM [facility] % Red Blood Cell Distribution Width 13.3 12.0 - 16.8 % LAB DEVICE: SYSMEX XN-10 04/11/2024 4:51 AM [facility] Platelet Count 275 140 - 440 10*3/uL LAB DEVICE: SYSMEX XN-10 04/11/2024 4:51 AM [facility] Mean Platelet Volume 9.7 8.4 - 12.4 fL LAB DEVICE: SYSMEX XN-10 04/11/2024 4:51 AM [facility] % Neutrophils 49.7 45.0 - 80.0 % LAB DEVICE: SYSMEX XN-10 04/11/2024 4:51 AM [facility] % Lymphocytes 39.4 15.0 - 50.0 % LAB DEVICE: SYSMEX XN-10 04/11/2024 4:51 AM [facility] % Monocytes 8.1 0.0 - 15.0 % LAB DEVICE: SYSMEX XN-10 04/11/2024 4:51 AM [facility] % Eosinophils 1.5 0.0 - 7.0 % LAB DEVICE: SYSMEX XN-10 04/11/2024 4:51 AM [facility] % Basophils 1.0 0.0 - 2.0 % LAB DEVICE: SYSMEX XN-10 04/11/2024 4:51 AM [facility] % Immature Granulocytes 0.3 0.0 - 1.0 % LAB DEVICE: SYSMEX XN-10 04/11/2024 4:51 AM [facility] % Nucleated RBCs 0 <=0 /100 WBCs LAB DEVICE: S[employer]EX XN-10 04/11/2024 4:51 AM [facility] Absolute Neutrophil Count 2.94 2.00 - 8.80 10*3/uL LAB DEVICE: SYSMEX XN-10 04/11/2024 4:51 AM [facility] Absolute Lymphocytes 2.33 0.70 - 5.50 10*3/uL LAB DEVICE: SYSMEX XN-10 04/11/2024 4:51 AM [facility] Absolute Monocytes 0.48 0.00 - 1.70 10*3/uL LAB DEVICE: SYSMEX XN-10 04/11/2024 4:51 AM [facility] Absolute Eosinophils 0.09 0.00 - 0.80 10*3/uL LAB DEVICE: SYSMEX XN-10 04/11/2024 4:51 AM [facility] Absolute Basophils 0.06 0.00 - 0.20 10*3/uL LAB DEVICE: SYSMEX XN-10 04/11/2024 4:51 AM [facility] Absolute Immature Granulocytes 0.02 0.00 - 0.10 10*3/uL LAB DEVICE: SYSMEX XN-10 04/11/2024 4:51 AM [facility] Blood VENOUS BLOOD SPECIMEN / Unknown Venipuncture / Unknown 04/11/2024 4:39 AM EST 04/11/2024 4:45 AM EST Kelly Kelly MD LAB BLOOD ORDERABLES Final Resul t Performing Organization Address [facility] Co de Phone Number [place] [phone] * Magnesium (04/11/2024 4:39 AM EST) Only the most recent of3 resultswithin the time period is included. Magnesium 2.0 1.6 - 2.6 mg/dL 04/11/2024 5:11 AM [facility] Blood VENOUS BLOOD SPECIMEN / Unknown Venipuncture / Unknown 04/11/2024 4:39 AM EST 04/11/2024 4:45 AM EST Kelly Kelly MD LAB BLOOD ORDERABLES Final Resul t Performing Organization Address [facility] [place] [address] * (ABNORMAL) Comprehensive Metabolic Panel (CMP) (04/11/2024 4:39 AM EST) Only the most recent of5 resultswithin the time period is included. Sodium 142 136 - 145 mmol/L 04/11/2024 5:11 AM [facility] Comment:Excess protein and/o r lipids can falsely decrease sodium levels (pseudo hyponatremia). Potassium 4.1 3.5 - 5.1 mmol/L 04/11/2024 5:11 AM [facility] Comment:Falsely elevated pot assium can occur in patients with high WBC or platelet counts. Chloride 109(H) 98 - 107 mmol/L 04/11/2024 5:11 AM [facility] Comment:Falsely elevated chl oride levels can be seen in patients taking bromide containing medications. Carbon Dioxide 24 22 - 29 mmol/L 04/11/2024 5:11 AM [facility] Anion Gap 9 5 - 13 mmol/L 04/11/2024 5:11 AM [facility] Comment:Calculation: Na - (C l + CO2) Glucose, Random 76 71 - 99 mg/dL 04/11/2024 5:11 AM [facility] Blood Urea Nitrogen (BUN) 10 10 - 20 mg/dL 04/11/2024 5:11 AM [facility] Creatinine, Blood 0.93 0.55 - 1.02 mg/dL 04/11/2024 5:11 AM [facility] BUN/Creatinine Ratio 10.8 RATIO 04/11/2024 5:11 AM [facility] Estimated GFR (Cr) 71 >60 mL/min/1.7 3m2 04/11/2024 5:11 AM [facility] Comment:eGFR calculated base d on IDMS traceable, enzymatic creatinine method using the CKD-EPI 2020 equation. Total Protein 6.8 6.4 - 8.2 g/dL 04/11/2024 5:11 AM [facility] Albumin 3.7 3.5 - 5.2 g/dL 04/11/2024 5:11 AM [facility] Globulin 3.1 1.5 - 4.5 g/dL 04/11/2024 5:11 AM [facility] Albumin/Globulin Ratio 1.2 1.1 - 2.5 RATIO 04/11/2024 5:11 AM [facility] Calcium 9.1 8.4 - 10.2 mg/dL 04/11/2024 5:11 AM [facility] Total Bilirubin 0.9 0.2 - 1.2 mg/dL 04/11/2024 5:11 AM [facility] AST/SGOT 20 5 - 34 U/L 04/11/2024 5:11 AM [facility] ALT/SGPT 20 0 - 55 U/L 04/11/2024 5:11 AM [facility] Alkaline Phosphatase 72 40 - 150 U/L 04/11/2024 5:11 AM EST [facility] Blood VENOUS BLOOD SPECIMEN / Unknown Venipuncture / Unknown 04/11/2024 4:39 AM EST 04/11/2024 4:45 AM EST us Kelly Kelly MD LAB BLOOD ORDERABLES Final Resul t [facility] [address] [place] [phone] * CT High Resolution Chest WO Contrast (04/10/2024 4:32 PM EST) [facility] RAD WORKSTATION ID [id number] LA POWERSCRIBE Anatomical Region Laterality Modality Chest Computed Tomogra phy 04/10/2024 4:41 PM EST Narrative 04/10/2024 4:56 PM EST REVIEWING YOUR TEST RESULTS IN [facility] IS NOT A SUBSTITUTE FOR DISCUSSING THOSE RESULTS WITH YOUR HEALTH CARE PROVIDER. PLEASE CONTACT YOUR PROVIDER [facility]IA [facility] TO DISCUSS ANY QUESTIONS OR CONCERNS YOU MAY HAVE REGARDING THESE TEST RESULTS. RADIOLOGY REPORT FACILITY: [facility] UNIT/AGE/GENDER: Saul IN AGE:58 Y SEX:F PATIENT NAME/: AMBIKA PRATT TURNER 1965 UNIT NUMBER: [id number] ACCESSION NUMBER: [id number] EXAMINATION: CT of the chest without contrast [...] - 04/10/2024 REVIEWING YOUR TEST RESULTS IN [facility] IS NOT A SUBSTITUTE FORDISCUSSING THOSE RESULTS WITH YOUR HEALTH CARE PROVIDER. PLEASE CONTACT YOUR PROVIDER VIA [employer] Group[facility]utoFORM[facility]LY [facility] TO DISCUSS ANY QUESTIONS ORCONCERNS YOU MAY HAVE REGARDING THESE TEST RESULTS. RADIOLOGY REPORT FACILITY: [facility] UNIT/AGE/GENDER: Saul IN AGE:58 Y SEX:F PATIENT NAME/: AMBIKA PRATT TURNER 1965 UNIT NUMBER: [id number] ACCESSION NUMBER: [id number] EXAMINATION: CT of the chest without contrast [...] 04/10/2024 [id number] Joselyn Sanchez MD [facility] CT ORDERABLES Final Resu lt * Case request operating room: EGD (04/10/2024 1:40 PM EST) Narrative Procedure Note Salima Perla, DO - 04/10/2024 1:40 PM EST Patient Name: Ambika Pratt Procedure Date No Time: 04/10/2024 Date of : 1965 Gender: Female Attending MD: SALIMA PERLA MD, [id number] Procedure: Upper GI endoscopy Pre-op Diagnosis: Epigastric [...] Initiated On: 04/10/2024 12:37 PM Chikis Cole DESKIDDING MACHINE OPERATOR GENERAL SURGICAL ORDERABLES Final Result * Surgical Specimen: Gastric (04/10/2024 1:32 PM EST) Case Report Surgical Pathology Report Case: [id number] Authorizing Provider: Salima Perla DO Collected: 04/10/2024 [...] time is between 6-72 hours. SEUN Li ([facility]), 04/10/2024 /am1 04/11/2024 11:29 AM EST [facility] Sign Out Location [facility] [address] [place] [address] 04/11/2024 11:29 AM EST [facility] Case Flag Normal Normal 04/11/2024 11:29 AM EST [facility] Tissue SPERMATOZOA SPECIMEN / Unknown 04/10/2024 1:32 PM EST 04/10/2024 3:01 PM EST Comment:Pre-op diagnosis: Epigastric pain [R10.13] us Salima Perla DO PATHOLOGY/CYTOLOGY ORDERA BLES Final Result [facility] [address] [facility] [address] [place] [address] * XR Chest 1 Vw (04/10/2024 8:08 AM EST) [facility] RAD WORKSTATION ID [id number] [place] POWERSCRIBE Anatomical Region Laterality Modality Chest [facility] Radiographic Imaging 04/10/2024 8:39 AM EST Narrative 04/10/2024 8:41 AM EST REVIEWING YOUR TEST RESULTS IN [facility] IS NOT A SUBSTITUTE FOR DISCUSSING THOSE RESULTS WITH YOUR HEALTH CARE PROVIDER. PLEASE CONTACT YOUR PROVIDER VIA [employer] TO DISCUSS ANY QUESTIONS OR CONCERNS YOU MAY HAVE REGARDING THESE TEST RESULTS. RADIOLOGY REPORT FACILITY: [facility] UNIT/AGE/GENDER: Lamar7A IN AGE:58 Y SEX:F PATIENT NAME/: AMBIKA PRATT TURNER 1965 UNIT NUMBER: [id number] ACCESSION NUMBER: [id number] EXAMINATION: XR CHEST 1 VW HISTORY: possible [...] - 04/10/2024 REVIEWING YOUR TEST RESULTS IN [facility] IS NOT A SUBSTITUTE FORDISCUSSING THOSE RESULTS WITH YOUR HEALTH CARE PROVIDER. PLEASE CONTACT YOUR PROVIDER VIA [employer] TO DISCUSS ANY QUESTIONS ORCONCERNS YOU MAY HAVE REGARDING THESE TEST RESULTS. RADIOLOGY REPORT FACILITY: [facility] UNIT/AGE/GENDER: Lamar7A IN AGE:58 Y SEX:F PATIENT NAME/: AMBIKA PRATT TURNER 1965 UNIT NUMBER: [id number] ACCESSION NUMBER: [id number] EXAMINATION: XR CHEST 1 VW HISTORY: possible [...] (ABNORMAL) Procalcitonin (04/10/2024 6:11 AM EST) Pathologist [facility] Procalcitonin 0.03(L) 0.10 - 0.50 ng/mL 04/10/2024 7:11 AM EST [facility] Blood VENOUS BLOOD SPECIMEN / Unknown Venipuncture / Unknown 04/10/2024 6:11 AM EST 04/10/2024 6:29 AM EST Lurdes Mathews APRN LAB BLOOD ORDERABLES Final Res ult Performing Organization Address City/State/[facility] Co de Phone Number [facility] [address] [place] [address] * Hemoglobin A1C (04/10/2024 2:39 AM EST) Only the most recent of2 resultswithin the time period is included. Pathologist [facility] Hemoglobin A1C 5.3 4.3 - 5.6 % LAB DEVICE: [employer] D100 04/10/2024 6:23 PM EST [facility] [...] increased HbA1c test results. us Iris Staley DESKIDDING MACHINE OPERATOR LAB BLOOD ORDERABLES Final Res ult [facility] [address] [place] [address] * CT Angio Abdomen Pelvis W Contrast (04/09/2024 9:38 PM EST) [facility] RAD WORKSTATION ID [id number] LA EllipticCRIBE Anatomical Region Laterality Modality Abdomen Computed Tomogra phy 04/09/2024 10:3 1 PM EST Narrative 04/09/2024 10:35 PM EST REVIEWING YOUR TEST RESULTS IN [facility] IS NOT A SUBSTITUTE FOR DISCUSSING THOSE RESULTS WITH YOUR HEALTH CARE PROVIDER. PLEASE CONTACT YOUR PROVIDER VIA [employer] TO DISCUSS ANY QUESTIONS OR CONCERNS YOU MAY HAVE REGARDING THESE TEST RESULTS. RADIOLOGY REPORT FACILITY: [facility] UNIT/AGE/GENDER: M.ED ER AGE:58 Y SEX:F PATIENT NAME/: AMBIKA PRATT TURNER 1965 UNIT NUMBER: [id number] ACCESSION NUMBER: [id number] Examination: CT angiography of the abdomen and [...] - 04/09/2024 REVIEWING YOUR TEST RESULTS IN [facility] IS NOT A SUBSTITUTE FORDISCUSSING THOSE RESULTS WITH YOUR HEALTH CARE PROVIDER. PLEASE CONTACT YOUR PROVIDER VIA [employer] TO DISCUSS ANY QUESTIONS ORCONCERNS YOU MAY HAVE REGARDING THESE TEST RESULTS. RADIOLOGY REPORT FACILITY: [facility] UNIT/AGE/GENDER: M.ED ER AGE:58 Y SEX:F PATIENT NAME/: AMBIKA PRATT TURNER 1965 UNIT NUMBER: [id number] ACCESSION NUMBER: [id number] Examination: CT angiography of the abdomen and [...] - 59 U/L 04/09/2024 9:22 PM EST [facility] Blood VENOUS BLOOD SPECIMEN / Unknown Venipuncture / Unknown 04/09/2024 8:53 PM EST 04/09/2024 9:02 PM EST us Carlos Cannon MD LAB BLOOD ORDERABLES Final Resul t [facility] [address] [phone] * EKG 12 lead (04/09/2024 7:31 PM EST) 04/09/2024 7:31 PM EST Narrative [facility] - 04/10/2024 7:35 AM EST CARDIOLOGY REPORT FACILITY: [facility] PATIENT NAME/: AMBIKA PRATT 1965 UNIT/AGE/GENDER: AGE: 58 YR GENDER: F UNIT NUMBER: [id number] ACCESSION NUMBER: [id number] DATE OF EXAM: 04/09/2024 19:31 EXAMINATION(S): ECG 12-LEAD FINAL REPORT Procedure: ELECTROCARDIOGRAM RESULT Heart Rate 73 P-R Interval 144 ms QRS Interval 96 ms QT Interval 428 ms QTC Interval 472 ms P [place] 33 deg QRS [place] -2 deg T Wave [place] 45 deg DATE: 04/09/2024 19:31 SINUS RHYTHM LATE PRECORDIAL R/S TRANSITION NONSPECIFIC ST-T WAVE CHANGES NO PRIOR TRACING FOR COMPARISON Electronically signed by Marco Antonio Smith M.D. 04/10/2024 07:35 Procedure Note Marco Antonio Smith MD - 04/10/2024 CARDIOLOGY REPORT FACILITY: [facility] PATIENT NAME/: AMBIKA PRATT 1965 UNIT/AGE/GENDER: AGE: 58 YR GENDER: F UNIT NUMBER: [id number] ACCESSION NUMBER: [id number] DATE OF EXAM: 04/09/2024 19:31 EXAMINATION(S): ECG 12-LEAD FINAL REPORT Procedure: ELECTROCARDIOGRAM RESULT Heart Rate 73 P-R Interval 144 ms QRS Interval 96 ms QT Interval 428 ms QTC Interval 472 ms P [place] 33 deg QRS [place] -2 deg T Wave [place] 45 deg DATE: 04/09/2024 19:31 SINUS RHYTHM [...] Color, Urine Colorless 04/09/2024 7:44 PM EST [facility] Clarity, Urine Clear 04/09/2024 7:44 PM EST [facility] Specific [place], Urine 1.008 1.005 - 1.030 [arb'U] 04/09/2024 7:44 PM EST [facility] pH, Urine 5.5 5.0 - 9.0 [pH] 04/09/2024 7:44 PM [facility] Protein, Urine Negative Negative, 10 mg/dL, 15 mg/dL, 20 mg/dL, Trace 04/09/2024 7:44 PM [facility] Glucose, Urine Negative Negative 04/09/2024 7:44 PM [facility] Ketones, Urine Negative Negative 04/09/2024 7:44 PM [facility] Bilirubin, Urine Negative Negative mg/dL 04/09/2024 7:44 PM [facility] Blood, Urine Negative Negative [arb'U] 04/09/2024 7:44 PM [facility] Nitrite, Urine Negative Negative 04/09/2024 7:44 PM [facility] Urobilinogen, Urine Normal Normal 04/09/2024 7:44 PM [facility] Leukocyte Esterase, Urine 500 Sena/uL(A) Negative 04/09/2024 7:44 PM [facility] Reflex Microscopic? 04/09/2024 7:44 PM [facility] Comment:Microscopic performe d Red Blood Cells, Urine 1 0 - 2 [HPF] 04/09/2024 7:44 PM [facility] White Blood Cells, Urine 40(H) 0 - 3 [HPF] 04/09/2024 7:44 PM [facility] Squamous Epithelial Cells, Urine <1 0 - 4 [HPF] 04/09/2024 7:44 PM [facility] Bacteria, Urine None None [HPF] 04/09/2024 7:44 PM [facility] Urine MID-STREAM URINE SPECIMEN / Unknown Non-blood Collection / Unknown 04/09/2024 7:25 PM EST 04/09/2024 7:35 PM EST us Carlos Cannon MD URINE ORDERABLES Final Result [facility] [address] [phone] * High Sensitivity Troponin-I (04/09/2024 4:04 PM EST) Pathologist [facility] Troponin-I, High Sensitivity 3 0 - 14 pg/mL 04/09/2024 7:05 PM EST [facility] Blood VENOUS BLOOD SPECIMEN / Unknown Venipuncture / Unknown 04/09/2024 4:04 PM EST 04/09/2024 4:26 PM EST us Carlos Cannon MD LAB BLOOD ORDERABLES Final Resul t [facility] [address] [place] [address] * FL Upper GI & Small Bowel (02/12/2024 11:13 AM EDT) Pathologist [facility] RAD WORKSTATION ID [id number] [place] POWERSCRIBE Anatomical Region Laterality Modality Abdomen [facility] Radiographic Imaging 02/12/2024 1:44 PM EDT Narrative 02/12/2024 4:00 PM EDT REVIEWING YOUR TEST RESULTS IN [facility] IS NOT A SUBSTITUTE FOR DISCUSSING THOSE RESULTS WITH YOUR HEALTH CARE PROVIDER. PLEASE CONTACT YOUR PROVIDER VIA [facility] TO DISCUSS ANY QUESTIONS OR CONCERNS YOU MAY HAVE REGARDING THESE TEST RESULTS. RADIOLOGY REPORT FACILITY: [facility] UNIT/AGE/GENDER: MORRO OP AGE:58 Y SEX:F PATIENT NAME/: AMBIKA PRATT TURNER 1965 UNIT NUMBER: [id number] ACCESSION NUMBER: [id number] EXAMINATION: Limited Upper Gastrointestinal Exam HISTORY: Periumbilical pain, evaluate for possible recurrence of internal hernia COMPARISON: None FLUOROSCOPY TIME: 0.8 minute DOSE AREA PRODUCT: 4280 mGy*m2 IMAGES SAVED: 23 FINDINGS: Spotter Driver radiograph of the abdomen demonstrates postsurgical changes [...] - 02/12/2024 REVIEWING YOUR TEST RESULTS IN [facility] IS NOT A SUBSTITUTE FORDISCUSSING THOSE RESULTS WITH YOUR HEALTH CARE PROVIDER. PLEASE CONTACT YOUR PROVIDER VIA [employer] GroupSolutoFORM[facility] TO DISCUSS ANY QUESTIONS ORCONCERNS YOU MAY HAVE REGARDING THESE TEST RESULTS. RADIOLOGY REPORT FACILITY: [facility] UNIT/AGE/GENDER: D.RAD OP AGE:58 Y SEX:F PATIENT NAME/: AMBIKA PRATT TURNER 1965 UNIT NUMBER: [id number] ACCESSION NUMBER: [id number] EXAMINATION: Limited Upper Gastrointestinal Exam HISTORY: Periumbilical pain, evaluate for possible recurrence of internal hernia COMPARISON: None FLUOROSCOPY TIME: 0.8 minute DOSE AREA PRODUCT: 4280 mGy*m2 IMAGES SAVED: 23 FINDINGS: Spotter Driver radiograph of the abdomen demonstrates postsurgical changes [...] 136 - 145 mmol/L 11/07/2021 4:05 AM [facility] Comment: (note) Excess protein and/or lipids can falsely decrease sodium levels (pseudo hyponatremia). Potassium 3.7 3.5 - 5.1 mmol/L 11/07/2021 4:05 AM [facility] Chloride 102 98 - 107 mmol/L 11/07/2021 4:05 AM [facility] Comment: (note) Falsely elevated chloride levels can be seen in patients taking medications which contain bromide. Carbon Dioxide 32(H) 22 - 29 mmol/L 11/07/2021 4:05 AM [facility] Anion Gap 8 5 - 13 (arb'U) 11/07/2021 4:05 AM [facility] Comment: (note) Calculation- Na - (Cl + CO2) Glucose 87 71 - 139 mg/dL 11/07/2021 4:05 AM [facility] Comment: (note) Reference range based on inpatient hypo/hyperglycemic treatment levels. A random glucose =/>200 is concerning for poor control. Blood Urea Nitrogen (BUN) 6(L) 10 - 20 mg/dL 11/07/2021 4:05 AM [facility] Creatinine-Blood 0.89 0.55 - 1.02 mg/dL 11/07/2021 4:05 AM [facility] BUN/Creatinine Ratio 6.7 RATIO 11/07/2021 4:05 AM [facility] Estimated GFR >60 >60 /1.73 m2 11/07/2021 4:05 AM [facility] Comment: (note) Results do not take into account body mass. Valid for patients 18 to 70 years of age. Estimated GFR if -Wallisian >60 >60 /1.73 m2 11/07/2021 4:05 AM EDT [facility] Comment: (note) Results do not take into account body mass. Valid for patients 18 to 70 years of age. Calcium 9.3 8.4 - 10.2 mg/dL 11/07/2021 4:05 AM EDT [facility] Plasma specimen (specimen) BLOOD SPECIMEN FROM PATIENT / Unknown 11/07/2021 3:30 AM EDT 11/07/2021 3:39 AM EDT us Amanda Garcias MD LAB BLOOD ORDERABLES Final Result Performing Organization Address [facility]/ZIP Co de Phone Number [place], [place] [address] [place] [address] * Potassium (11/06/2021 12:28 PM EDT) Only the most recent of2 resultswithin the time period is included. Potassium 3.5 3.5 - 5.1 mmol/L 11/06/2021 12:48 PM EDT [facility] Plasma BLOOD SPECIMEN FROM PATIENT / Unknown 11/06/2021 12:28 PM EDT 11/06/2021 12:34 PM EDT us Forrest Garrison MD LAB BLOOD ORDERABLES Final Re sult [address] [address] * C. difficile PCR /Toxin Detection (11/03/2021 6:46 PM EDT) [place] Score [place] Score 6 - loose stool acceptable for C. difficile testing (arb'U) 11/03/2021 6:56 PM EDT [facility] CDIFF PCR Negative Negative 11/03/2021 7:41 PM EDT [facility] Comment: Toxigenic C. difficile was not [...] ORDERAB LES Final Result Performing Organization Address [facility] [place] [address] [address] * Protime-INR (11/03/2021 5:30 PM EDT) Prothrombin Time 12.8 10.3 - 13.3 s 11/03/2021 5:54 PM EDT [facility] Comment: (note) Anticoagulants may alter the results of Laboratory Coagulation assays. New-generation anticoagulants such as direct Thrombin inhibitors (Dabigatran/Pradaxa, Argatroban, Bivalrudin) and direct/indirect factor Xa inhibitors (Rivaroxaban/Xarelto,Apixaban/Eliquis, Danaparoid/Orgaran, Fondaparinux/Arixtra) have been shown to affect the results of Laboratory Coagulation assays, creating falsely elevated or decreased values. Correlation with medication history is advised. INR 1.1 INR 11/03/2021 5:54 PM EDT [facility] Comment: INR Therapeutic Ranges: Low Intensity Range: 2.0-3.0 High Intensity Range: 3.0-4.5 Plasma specimen (specimen) BLOOD SPECIMEN FROM PATIENT / Unknown 11/03/2021 5:30 PM EDT 11/03/2021 5:37 PM EDT us Forrest Garrison MD LAB BLOOD ORDERABLES Final Re sult Performing Organization Address [facility]/ZIP Co de Phone Number [address] [place] [address] [address] * Type and Screen (11/03/2021 5:28 PM EDT) ABO/Rh(D) O Negative 11/03/2021 6:33 PM EDT [facility] Antibody Screen Negative 11/03/2021 6:33 PM EDT [facility] Crossmatch Expiration 11/06/2021,2 359 11/03/2021 6:33 PM EDT [facility] Whole Blood BLOOD SPECIMEN FROM PATIENT / Unknown 11/03/2021 5:28 PM EDT 11/03/2021 5:40 PM EDT Jacque Pitts APRN BLOOD BANK TEST ORDERABLES Final Result Performing Organization Address City/[facility]/ZIP Co de Phone Number [facility] [address] [address] * Culture,Urine (11/03/2021 4:39 PM EDT) Pathologist [facility] Culture 10,000 to 100,000 CFU/ML Mixed Rosa Elena Isolated. Multiple organisms present. Suggest appropriate recollection if clinically indicated. 11/04/2021 2:15 PM EDT [facility] Urine Midstream MID-STREAM URINE SPECIMEN / Unknown 11/03/2021 4:39 PM EDT 11/03/2021 5:02 PM EDT Iris Staley DESKIDDING MACHINE OPERATOR MICROBIOLOGY - GENERAL ORDERAB LES Final Result [facility] [address] [place], [place] [address] [facility] [address] [place] [address] * XR Abdomen FLat & Upr + CXR (11/03/2021 3:30 PM EDT) Anatomical Region Laterality Modality Abdomen [facility] Radiographic Imaging 11/03/2021 3:35 PM EDT Narrative 11/03/2021 3:37 PM EDT REVIEWING YOUR TEST RESULTS IN [facility] IS NOT A SUBSTITUTE FOR DISCUSSING THOSE RESULTS WITH YOUR HEALTH CARE PROVIDER. PLEASE CONTACT YOUR PROVIDER VIA [employer] TO DISCUSS ANY QUESTIONS OR CONCERNS YOU MAY HAVE REGARDING THESE TEST RESULTS. RADIOLOGY REPORT FACILITY: [facility] UNIT/AGE/GENDER: [id number] IN AGE:55 Y SEX:F PATIENT NAME/: AMBIKA PRATT TURNER 1965 UNIT NUMBER: [id number] ACCESSION NUMBER: [id number] PA VIEW OF THE CHEST, 3 AP [...] - 11/03/2021 REVIEWING YOUR TEST RESULTS IN [facility] IS NOT A SUBSTITUTE FORDISCUSSING THOSE RESULTS WITH YOUR HEALTH CARE PROVIDER. PLEASE CONTACT YOUR PROVIDER VIA [employer] TO DISCUSS ANY QUESTIONS ORCONCERNS YOU MAY HAVE REGARDING THESE TEST RESULTS. RADIOLOGY REPORT FACILITY: [facility] UNIT/AGE/GENDER: [id number] IN AGE:55 Y SEX:F PATIENT NAME/: AMBIKA PRATT TURNER 1965 UNIT NUMBER: [id number] ACCESSION NUMBER: [id number] PA VIEW OF THE CHEST, 3 AP [...] 1535 Patrick Cole MD [facility] Final Result * Ova and Parasite Examination (11/03/2021 3:24 PM EDT) Pathologist [facility] Ova and Parasite Examination No ova or parasites observed. 11/04/2021 2:26 PM EDT [facility] Stool STOOL SPECIMEN / Unknown 11/03/2021 3:24 PM EDT 11/03/2021 6:55 PM EDT Comment:Random Iris Staley DESKIDDING MACHINE OPERATOR MICROBIOLOGY - GENERAL ORDERAB LES Final Result [facility] [address] [place], [place] [address] [facility] [address] [place] [address] * Stool Culture and Shiga Toxin Assay (11/03/2021 3:24 PM EDT) Pathologist [facility] Shiga Toxin Assay (Stool) No Shiga Toxin Detected. 11/06/2021 5:11 AM EDT [facility] Culture No Salmonella , Shigella, Campylobac ter, Yersinia, or E.coli 0157 isolated. 11/06/2021 11:10 AM EDT [facility] Stool STOOL SPECIMEN / Unknown 11/03/2021 3:24 PM EDT 11/03/2021 6:55 PM EDT Comment:Random us Iris Staley DESKIDDING MACHINE OPERATOR MICROBIOLOGY - GENERAL ORDERAB LES Final Result [facility] [address] [place], [place] [id number] [facility] [address] [place] [address] Visit Diagnoses Diagnosis Start Date SBO (small [...] disorder, not elsewhere classified 04/09/2024 Care Teams Meat Boner Relationship Specialty Start Date End Date Salima Gonzáles MD [address] [place] [address] PCP - General Family Medicine 11/02/21
--- OUTSIDE RECORDS SUMMARY | 2025-04-07 23:34 | XMS_ITS | Encounter Summary ---
Author Organization [employer] ([place], [place], [place], [place], [place]) Address [address] [place] [address] Care Team Providers Care Window Covering Sales Consultant Name Role Phone Anujlizbet Salima Tate SWANN Primary Care Provider [phone] Encounter Details Date Type Department Care Team (Late st Contact Info) Description 10/04/2020 Transcribed Document [facility] [place] Family Medicine [facility]ly [facility], [facility] [place] [address] ProviderQuincy MD [address] [place] [id number] Social History Tobacco Use Types Packs/Day Years [...] Left renal calculus. PLAN: Ureteroscopy with laser. /[id number] Gatito Menendez MD FP/AQ / [facility] / [facility] /[id number] documented in this encounter Plan of Treatment Not on file documented as of this encounter Visit Diagnoses Not on filedocumented in this encounter Care Teams Window Covering Sales Consultant Relationship Specialty Start Date End Date Salima Gonzáles, [address] [address] PCP - General Family Medicine 02/09/23 documented as of this encounter
--- OUTSIDE RECORDS SUMMARY | 2025-04-07 23:34 | XMS_ITS | Encounter Summary ---
Author Organization [employer] ([place], [place], [place], [place], [place]) Address [address] [place] [address] Care Team Providers Care New Car Make Ready Mechanic Name Role Phone Salima Gonzáles DO Primary Care Provider Encounter Details Date Type Department Care Team (Late st Contact Info) Description 10/04/[address] [facility] Family Medicine [address] [place] [address] ProviderQuincy MD [address] [place], [place] [id number] Social History Tobacco Use Types Packs/Day Years [...] 10/04/2020 16:48 EDT Electronically signed by [facility] Conversion Inclined Railway Operator Cerner at 08/23/2022 11:04 AM CDT documented in this encounter Plan of Treatment Not on file documented as of this encounter Visit Diagnoses Not on filedocumented in this encounter Care Teams New Car Make Ready Mechanic Relationship Specialty Start Date End Date Salima Gonzáles DO [address] [place] [address] PCP - General Family Medicine 02/09/23 documented as of this encounter
--- OUTSIDE RECORDS SUMMARY | 2025-04-07 23:34 | XMS_ITS | Encounter Summary ---
Author Organization [employer] ([place], [place], [place], [place], [place]) Address [address] [place] [address] Care Team Providers Care Compliance Representative Name Role Phone Salima Gonzáles DO Primary Care Provider [phone] Encounter Details Date Type Department Care Team (Late st Contact Info) Description 10/05/2020 Transcribed Document [facility] [address] [place] [address] ProviderQuincy MD [address] [place], [place] [id number] Social History Tobacco Use Types Packs/Day Years [...] on filedocumented in this encounter Care Teams Compliance Representative Relationship Specialty Start Date End Date Salima Gonzáles DO [address] [phone] PCP - General Family Medicine 02/09/23 documented as of this encounter
--- OUTSIDE RECORDS SUMMARY | 2025-04-07 23:34 | XMS_ITS | Encounter Summary ---
Author Organization [employer] ([place], [place], [place], [place], [place]) Address [address] [place] [address] Care Team Providers Care Building Construction Estimator Name Role Phone Salima Gonzáles DO Primary Care Provider [phone] Encounter Details Date Type Department Care Team (Late st Contact Info) Description 10/04/[address] [facility] [place] [address] [place] [address] ProviderQuincy MD [address] [place] [address] Social History Tobacco Use Types [...] on filedocumented in this encounter Care Teams Building Construction Estimator Relationship Specialty Start Date End Date Salima Gonzáles, DO [address] [place] [address] PCP - General Family Medicine 02/09/23 documented as of this encounter
--- OUTSIDE RECORDS SUMMARY | 2025-04-07 23:34 | XMS_ITS | Encounter Summary ---
Author Organization [employer] ([place], [place], [place], [place], [place]) Address [address] [place] [address] Care Team Providers Care Stock Fitter Name Role Phone Salima Gonzáles Tate SWANN Primary Care Provider [phone] Encounter Details Date Type Department Care Team (Late st Contact Info) Description 10/05/2020 Transcribed Document [facility] [place] [facility] Family Medicine [facility] [place] [address] ProviderQuincy MD [address] [place], [place] [id number] Social History Tobacco Use Types Packs/Day Years [...] 10/05/2020 17:05 EDT Electronically signed by [facility] Conversion Garden Implement Mechanic Cerner at 08/23/2022 10:49 AM CDT documented in this encounter Plan of Treatment Not on file documented as of this encounter Visit Diagnoses Not on filedocumented in this encounter Care Teams Stock Fitter Relationship Specialty Start Date End Date Salima Gonzáles, [address] [address] PCP - General Family Medicine 02/09/23 documented as of this encounter
--- OUTSIDE RECORDS SUMMARY | 2025-04-07 23:34 | XMS_ITS | Clinical Summary ---
[facility] Address [address] [place] [address] Care Team Providers Care Senior Database Engineer Name Role Phone Eliecer Salimajovanni Connergh Primary Care Provider [phone] Allergies Active Allergy Reactions Criticality Noted Date [...] Blood Gluc Sensor (FreeStyle Niels 2 Sensor) [facility] USE DIRECTED FOR CONTINUOUS GLUCOSE MONITORING 01/24/20 [...] patient to restart PAP therapy and contact [employer] to find a better mask that does not cause migraines. 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 Encouraged patient to restart PAP therapy and contact [employer] to find a better mask that does [...] Of Support Discussed With: Patient Care Teams Senior Database Engineer Relationship Specialty Start Date End Date Salima Gonzáles DO [address] [place] [address] PCP - General Family Medicine 02/21/17
--- OUTSIDE RECORDS SUMMARY | 2025-04-07 23:34 | XMS_ITS | Encounter Summary ---
Author Organization [employer] ([place], [place], [place], [place], [place]) Address [address] [place] [address] Care Team Providers Care Medical Office Asst Name Role Phone Anujlizbet Salima Tate SWANN Primary Care Provider [phone] Encounter Details Date Type Department Care Team (Late st Contact Info) Description 10/11/2020 Transcribed Document [facility] Family Medicine [address] [place] [address] ProviderQuincy MD [address] [place], [place] [address] Social History Tobacco Use Types Packs/Day Years [...] 1 Health Plan: [facility] MEDICARE REPL Policy Number: [id number] Authorization Number: Insurance Primary Name : [place] [employer] RE[employer] Policy Number: [id number] Authorization Status-Primary : Awaiting callback Reference Number-Primary : [id number] Authorized Service Begin Date-Primary : 10/03/2020 EDT Authorization Comments-Primary : Remains pending per [employer] Historical Authorization Comments-Primary : Comment 1: Email sent to madelyn (PING HOFFMANN RN 10/09/2020 15:11) Comment 2: Clinicals faxed via MeMe[employer] for IP approval (DEISY LIRA RN 10/05/2020 14:13) Comment 3: Clinicals submitted via [employer] for IP approval (DEISY LIAR RN 10/04/2020 08:24) PING HOFFMANN RN - 10/11/2020 12:11 EDT documented in this encounter Plan of Treatment Not on file documented as of this encounter Visit Diagnoses Not on filedocumented in this encounter Care Teams Medical Office Asst Relationship Specialty Start Date End Date Salima Gonzáles, 8 [facility] [address] [place] [address] PCP - General Family Medicine 02/09/23 documented as of this encounter
--- OUTSIDE RECORDS SUMMARY | 2025-04-07 23:34 | XMS_ITS | Encounter Summary ---
Author Organization [employer] ([place], [place], [place], [place], [place]) Address [address] [place] [address] Care Team Providers Care Vocal Performer Name Role Phone Salima Gonzáles Primary Care Provider Encounter Details Date Type Department Care Team (Late st Contact Info) Description 10/04/[address] [facility] Family Medicine [address] [place] [address] ProviderQuincy MD [address] [place], [place] [phone] Social History Tobacco Use Types Packs/Day Years [...] MD - 10/04/2020 1:16 PM CDT [facility] Main OR PACU Summary Primary Physician: ANNABEL ZAMBRANO MD-URO Finalized Date/Time: 10/04/20 15:07:54 Pt. Name: AMBIKA PIERRE/Sex: 1965 Female Med Rec #: [id number] Physician: SUREKHA ARGUELLES MD Financial #: [id number] Pt. Type: I Room/Bed: [facility]/1 Admit/Disch: 10/03/20 18:06:00 - Institution: [facility] Main OR PACU I Case Times Entry 1 In PACU I 10/04/20 13:58:00 Ready for PACU 10/04/20 14:40:00 Discharge Discharge from PACU 10/04/20 14:40:00 I Last Modified By: ESPERANZA LAWRENCE RN 10/04/20 15:07:45 Finalized By: ESPERANZA LAWRENCE, RN Document Signatures Signed By: ESPERANZA LAWRENCE RN 10/04/20 15:07 Electronically signed by [facility] Conversion Applied Behavior Specialist Cerner at 08/23/2022 11:13 AM CDT documented in this encounter Plan of Treatment Not on file documented as of this encounter Visit Diagnoses Not on filedocumented in this encounter Care Teams Vocal Performer Relationship Specialty Start Date End Date Salima Gonzáles, [address] [address] PCP - General Family Medicine 02/09/23 documented as of this encounter
--- OUTSIDE RECORDS SUMMARY | 2025-04-07 23:34 | XMS_ITS | Encounter Summary ---
Author Organization [employer] ([place], [place], [place], [place], [place]) Address [address] [address] Care Team Providers Care Molding Manager Name Role Phone Anujlizbet Salima Tate SWANN Primary Care Provider [phone] Encounter Details Date Type Department Care Team (Late st Contact Info) Description 10/04/2020 Transcribed Document [facility] [place] [address] [place] [address] ProviderQuincy MD [address] [place], [place] [address] Social History Tobacco Use Types Packs/Day Years [...] Policy Numbers : Insurance 1 Health Plan: [facility] MEDICARE REPL Policy Number: [id number] Authorization Number: Insurance Primary Name : [place] [employer] Policy Number: [id number] Authorization Status-Primary : Awaiting callback Reference Number-Primary : [id number] Authorized Service Begin Date-Primary : 10/03/2020 EDT Authorization Comments-Primary : Clinicals submitted via [employer] for IP approval Historical Authorization Comments-Primary : No Authorization Comments Found DEISY ILRA, RN - 10/04/2020 8:24 EDT Electronically signed by Nuzhat Barahona Conversion Big Data Platform Architect Cerner at 08/23/2022 11:14 AM CDT documented in this encounter Plan of Treatment Not on file documented as of this encounter Visit Diagnoses Not on filedocumented in this encounter Care Teams Molding Manager Relationship Specialty Start Date End Date Salima Gonzáles, 8 [facility] [address] [place] [address] PCP - General Family Medicine 02/09/23 documented as of this encounter
[2025-04-07 23:35] VITALS: BP 145/98; PULSE 81; RESP 16; TEMP 36.6; O2SAT 100; BMI 41.5
--- OUTSIDE RECORDS SUMMARY | 2025-04-07 23:35 | XMS_ITS | Encounter Summary ---
Author Organization [employer] ([place], [place], [place], [place], [place]) Address [address] [place] [address] Care Team Providers Care Kettle Tender Name Role Phone Eliecer Salima Tate SWANN Primary Care Provider [phone] Encounter Details Date Type Department Care Team (Late st Contact Info) Description 10/04/2020 Transcribed Document [facility] Family Medicine [address] [place] [address] ProviderQuincy MD [address] [place], [place] [address] Social History Tobacco Use Types Packs/Day Years [...] needed N.p.o. currently, urology consultation pending Tamsulosin #Tar-inffzpx-qlalgxzij diabetes Hold home medications Cover with SSI [...] Lymph # 2.58 x10(3)/uL 10/03/2020 19:07 EDT [place] % 8.5 % 10/04/2020 06:54 EDT [place] % 7.7 % 10/03/2020 19:07 EDT [place] # 0.47 K/uL 10/04/2020 06:54 EDT [place] # 0.56 K/uL 10/03/2020 19:07 EDT Eos [...] 10/04/2020 06:54 EDT Electronically signed by [place], [facility] Conversion Caustics Loader Cerner at 08/23/2022 11:00 AM CDT documented in this encounter Plan of Treatment Not on file documented as of this encounter Visit Diagnoses Not on filedocumented in this encounter Care Teams Kettle Tender Relationship Specialty Start Date End Date Salima Gonzáles DO [address] [address] PCP - General Family Medicine 02/09/23 documented as of this encounter
--- OUTSIDE RECORDS SUMMARY | 2025-04-07 23:35 | XMS_ITS | Data Portability ---
Author Organization [facility] Dylan woodson, C[facility]EL[facility]OS[facility] Address [address] [address] [place] [address] Care Team Providers Care Armhole Baster Hand Name Role Phone MARCOS MI Primary Care Provider [phone] STEFANI MAYA Miller Kil[employer] Dried Salt Assessment No assessment recorded. Plan of Treatment [...] and insertion of intraocular lens [facility] 03/05/2025 08:25:45 replacement of bilateral knee joints [facility] 03/05/2025 08:26:13 operation on bone injury of femur completed [facility] 03/05/2025 08:26:37 bypass of stomach completed [facility] 03/05/2025 08:27:22 total hysterectomy [facility] 03/05/2025 08:27:33 cholecystectomy completed [facility] 03/05/2025 08:27:40 procedure on intestine completed [facility] 03/05/2025 08:27:57 lithotripsy completed [facility] 03/05/2025 08:28:06 removal of urinary calculus completed [facility] 03/05/2025 08:28:15 Imaging Results None recorded. Procedure Notes None recorded. Medical Equipment None Reported. Allergies Allergen ID Allergen Name Allergen Category Reaction Reaction Severity Criticality Documentation Date Start Date Code Code System Note Provider Name and Address Organization Details Recorded Time 870789 morphine sulfate medicatio n Not available Not available Not available 03/31/20162014 73784 RxNorm Comme nt: Creat ed By: Holley buckCre ated Date: 2014 10:23 :41 AM; Not Available [facility] 6 03:55:38 059128 cefdinir medicatio n Not available Not available Not available 10/06/2020 50175 RxNorm Jacqueline Lora [facility] 15:59:52 Medications Name Sig Start Date [...] Hep A, adult 8 completed Not Available [facility] 03/05/2025 11:56:18 Tdap 8 completed Not Available [facility] 03/05/2025 11:56:18 Influenza, split virus, quadrivalent, PF 8 completed Not Available [facility] 03/05/2025 11:56:18 pneumococcal polysaccharide PPV23 9 completed Not Available [facility] 03/05/2025 11:56:18 Hep A, adult 9 completed Not Available [facility] 03/05/2025 11:56:18 Influenza, split virus, quadrivalent, PF 9 completed Not Available [facility] 03/05/2025 11:56:18 Influenza, recombinant, quadrivalent, PF 0 completed Not Available [facility] 03/05/2025 11:56:18 COVID-19, mRNA, LNP-S, PF, 100 mcg/0.5mL dose or 50 mcg/0.25mL dose 1 completed Not Available [facility] 03/05/2025 11:56:18 COVID-19, mRNA, LNP-S, PF, 100 mcg/0.5mL dose or 50 mcg/0.25mL dose 1 completed Not Available [facility] 03/05/2025 11:56:18 COVID-19, mRNA, LNP-S, PF, 100 mcg/0.5mL dose or 50 mcg/0.25mL dose 1 completed Not Available [facility] 03/05/2025 11:56:18 Influenza, split virus, quadrivalent, PF 1 completed Not Available [facility] 03/05/2025 11:56:18 Influenza, MDCK, quadrivalent, PF 2 completed Not Available [facility] 03/05/2025 11:56:18 Pneumococcal conjugate PCV20, polysaccharide [id number] conjugate, adjuvant, PF 2 completed Not Available [facility] 03/05/2025 11:56:18 COVID-19, mRNA, LNP-S, bivalent, PF, 50 mcg/0.5 mL or 25mcg/0.25 mL dose 2 completed Not Available [facility] 03/05/2025 11:56:18 Influenza, MDCK, quadrivalent, PF 3 completed Not Available [facility] 03/05/2025 11:56:18 Influenza, MDCK, trivalent, PF 4 completed Not Available [facility] 03/05/2025 11:56:18 Past Encounters Encounter ID Performer Location Encounter Start Date Encounter Closed Date Diagnosis/Indication Diagnosis SNOMED-CT Code Diagnosis ICD10 Code Diagnosis IMO Codes Diagnosis Note [id number] STEFANI MAYA MD OPHTH[facility]MO [address] FLO[address] [place] [id number] 03/05/2025 08:14:27 03/05/2025 09:53:39 Artificial lens present 067604076 Z96.1 99156 stable, mr today Allergic conjunctivitis of bilateral eyes 2438112505 52800 H10.13 057738 pataday/za ditor prn Nevus of right iris 6808 961519 33434 D31.41 29351494 monitor for changes1 year Health Concerns Section Related Observation LastModified by Organization Detai ls LastModified Time None Recorded Concern Status LastModified by Organization Details LastModified Time None Recorded Advance Directives Directive None Recorded Payers Insurance Date Sequence Insurance Name Policy Number Policy Giordano Covered Member ID Giordano Member ID Guarantor Name 03/10/2025 1 [place]MEDICARE [facility] P[facility]) [id number] Neetu Zavala [id number] Neetu Murillo OBGyn Episode No OBEpisode recorded.
--- OUTSIDE RECORDS SUMMARY | 2025-04-07 23:35 | XMS_ITS | Encounter Summary ---
Author Organization [employer] ([place], [place], [place], [place], [place]) Address [address] [place] [address] Care Team Providers Care Welder Assembler Name Role Phone Salima Gonzáles Tate SWANN Primary Care Provider [phone] Encounter Details Date Type Department Care Team (Late st Contact Info) Description 10/13/2020 Transcribed Document [facility] Family Medicine [address] [place] [address] ProviderQuincy MD [address] [place], [place] [address] Social History Tobacco Use Types Packs/Day Years [...] Plan: [facility]IC[facility] REPL Policy Number: [id number] Authorization Number: Insurance Primary Name : [facility] MEDICARE REPL Policy Number: [id number] Authorization Status-Primary : Denied Reference Number-Primary : [id number] Authorized Service Begin Date-Primary : 10/03/2020 EDT Authorization Comments-Primary : Email to Hemalatha/MOSHE Historical Authorization Comments-Primary : Comment 1: Rec fax from Sara 10/12/20 States admission has been denied. Fax to Jacque Tabor (TEMI LAMBERT, Mid Level Game Designer 10/12/2020 14:42) Comment 2: Per Jinny remains [...] on filedocumented in this encounter Care Teams Welder Assembler Relationship Specialty Start Date End Date Salima Gonzáles, [address] [facility] [address] [place] [address] PCP - General Family Medicine 02/09/23 documented as of this encounter
--- OUTSIDE RECORDS SUMMARY | 2025-04-07 23:35 | XMS_ITS | Encounter Summary ---
Author Organization [employer] ([place], [place], [place], [place], [place]) Address [address] [place] [address] Care Team Providers Care Hematology Specialist Name Role Phone Salima Gonzáles Primary Care Provider [phone] Encounter Details Date Type Department Care Team (Late st Contact Info) Description 10/08/2019 Transcribed Document [facility] [place] Family Medicine [address] [place] [address] ProviderQuincy MD [address] [place] [address] Social History Tobacco Use Types Packs/Day Years [...] Kate MD - 10/08/2019 9:47 AM CDT [facility] Endo PACU Summary Primary Physician: WARREN MANRIQUE MD Finalized Date/Time: 10/08/19 10:47:05 Pt. Name: AMBIKA PIERRE/Sex: 1965 Female Med Rec #: [id number] Physician: WARREN MANRIQUE MD Financial #: [id number] Pt. Type: O Room/Bed: / Admit/Disch: 10/08/19 08:47:00 - Institution: [facility] PACU Case Times Entry 1 In PACU I 10/08/19 10:09:00 Ready for PACU 10/08/19 10:42:00 Discharge Discharge from PACU 10/08/19 10:45:00 I Last Modified By: Yasmine Al RN 10/08/19 10:43:05 [facility] Endo PACU Case Times Audit 10/08/19 10:45:09 Fiber Worker: [id number] Modifier: [id number] <+> 1 Discharge from PACU I Finalized By: Yasmine Al RN Document Signatures Signed By: Yasmine Al RN 10/08/19 10:47 Electronically signed by [facility] Conversion [place] Actor Cerner at 08/23/2022 10:59 AM CDT documented in this encounter Plan of Treatment Not on file documented as of this encounter Visit Diagnoses Not on filedocumented in this encounter Care Teams Hematology Specialist Relationship Specialty Start Date End Date Salima Gonzáles DO 8 [facility] [address] [place] [address] PCP - General Family Medicine 02/09/23 documented as of this encounter
--- OUTSIDE RECORDS SUMMARY | 2025-04-07 23:35 | XMS_ITS | Encounter Summary ---
Author Organization [employer] ([place], [place], [place], [place], [place]) Address [address] [place] [address] Care Team Providers Care High School Coach Name Role Phone Salima Mi DO Primary Care Provider [phone] Encounter Details Date Type Department Care Team (Late st Contact Info) Description 10/05/2020 Transcribed Document [facility] [place] [address] [place] [address] ProviderQuincy MD [address] [place] [address] Social History Tobacco Use Types Packs/Day [...] Kate MD - 10/05/2020 4:12 PM CDT [facility] [place] [address] AMBIKA PIERRE :1965 Visit Time:10/03/2020 [...] instructions with you. Where: [address] [place] [address]- Follow Up with ANNABEL ZAMBRANO MD-URO When Within 3 months Comments For kidney stone follow up. Call for follow up appointment. Bring discharge instructions with you. Bring Ins Card, Photo ID, Ins Co-pay. Where: [address] [facility] [address] [place] [address]- Medications What How Much When Instructions Next Dose pseudoePHEDrine (Sudafed 30 mg oral tablet) 1 Tablet(s) Oral Every 6 Hours as needed for Congestion Pickup at [facility] as needed montelukast (Singulair 10 [...] sitagliptin (Januvia) 100mg daily tomorrow Pharmacy Information [facility]: [address] [place] [address] [phone] Take your medications faithfully. Do NOT skip [...] these instructions at home: Medicines ??? Take pfpm-pas-ycnadmn and prescription medicines only as told by [...] provider. Document Revised: 09/09/2019 Document Reviewed: 09/09/2019 [employer] Patient Education ?? 2020 [employer] Ureteroscopy Ureteroscopy is a procedure to [...] including vitamins, herbs, eye drops, creams, and kzvv-ada-awyntkj medicines. ??? Any problems you or family [...] provider. Document Revised: 04/05/2018 Document Reviewed: 02/02/2017 [employer] Patient Education ?? 2020 [employer]. Dietary Guidelines to Help Prevent Kidney Stones [...] Rhubarb. ? Beets. ? Potato chips and zambian fries. ? Nuts. ??? If you regularly take a diuretic medicine, make sure to eat at least 1???2 fruits or vegetables high in potassium each day. These include: ? Avocado. ? Banana. ? Dickenson, prune, carrot, or tomato juice. ? Baked [...] Casseroles. Pizza. Lasagna. Frozen meals. Potato chips. [place] fries. Summary ??? You can reduce your [...] provider. Document Revised: 08/13/2019 Document Reviewed: 04/03/2017 [employer] Patient Education ?? 2019 [employer]. pseudoephedrine (SALAZAR moralez ee FED rin) Chlor [...] from your inner ears, called the eustachian (vjs-ATDJ-dcmb) tubes. Pseudoephedrine may also be used for [...] may report side effects to FDA at 1-447-CHQ-3213. What other drugs will affect pseudoephedrine? Other drugs may interact with pseudoephedrine, including prescription and snhq-dpg-rfidipp medicines, vitamins, and herbal products. Tell each [...] to ensure that the information provided by [employer] ('[employer]') is accurate, up-to-date, and complete, but no guarantee is made to that effect. Drug information contained herein may be time sensitive. [employer] information has been compiled for use by healthcare practitioners and consumers in the [place] and therefore [employer] does not warrant that uses outside of the [place] are appropriate, unless specifically indicated otherwise. [employer]'s drug information does not endorse drugs, diagnose patients or recommend therapy. [employer] drug information is an informational resource designed [...] effective or appropriate for any given patient. [facility] does not assume any responsibility for any aspect of healthcare administered with the aid of information [facility] provides. The information contained herein is not intended to cover all possible uses, directions, precautions, warnings, drug interactions, allergic reactions, or adverse effects. If you have questions about the drugs you are taking, check with your doctor, nurse or pharmacist. Copyright 8990-6444 [employer] system. Version: 7.03. Revision Date: 06/07/2015. Emergency Awareness [...] Assistance with quitting is available by contacting 6-028-XCIU-NOW. This is a free resource providing counseling, [...] range between ( 0.0 and 7.0 ) [place] #: 0.47 K/uL -- Normal range between ( 0.16 and 1.00 ) Eos #: 0.09 x10(3)/uL -- Normal range between ( 0.00 and 0.80 ) [place] %: 8.5 % -- Normal range between [...] given the opportunity to ask questions. Patient/Fire Department Battalion Chief Name: Patient/Fire Department Battalion Chief Signature: Relationship to Patient: Clinician/Hospital Fire Department Battalion Chief Signature: Date: documented in this encounter Plan of Treatment Not on file documented as of this encounter Visit Diagnoses Not on filedocumented in this encounter Care Teams High School Coach Relationship Specialty Start Date End Date Salima Mi DO [address] [facility] [address] [place] [id number] PCP - General Family Medicine 02/09/23 documented as of this encounter
--- OUTSIDE RECORDS SUMMARY | 2025-04-07 23:35 | XMS_ITS | Encounter Summary ---
Author Organization [employer] ([place], [place], [place], [place], [place]) Address [address] [place] [address] Care Team Providers Care Reinforcing Iron And Rebar Workers Name Role Phone Salima Gonzáles Tate SWANN Primary Care Provider [phone] Encounter Details Date Type Department Care Team (Late st Contact Info) Description 10/05/2020 Transcribed Document [facility] Family Medicine [address] [place] [address] ProviderQuincy MD [address] [place], [place] [address] Social History Tobacco Use Types Packs/Day Years Used Date Smoking Tobacco: Never Assessed Comments Unknown Sex and Gender Information Value Date Recorded Sex Assigned at Not on file Legal Sex Female 2:54 PM CDT Gender Identity Not on file Sexual Orientation Not on file documented as of this encounter Miscellaneous Notes * Cerner Conversion Note - Historical ProviderMD - 10/05/2020 2:00 AM CDT Server Administrator Details Entered On: 10/05/2020 3:28 EDT Performed [...] on filedocumented in this encounter Care Teams Reinforcing Iron And Rebar Workers Relationship Specialty Start Date End Date Salima Gonzáles DO 8 [facility] [address] [place] [address] PCP - General Family Medicine 02/09/23 documented as of this encounter
--- OUTSIDE RECORDS SUMMARY | 2025-04-07 23:35 | XMS_ITS | Encounter Summary ---
Author Organization [employer] ([place], [place], [place], [place], [place]) Address [address] [place] [address] Care Team Providers Care Flagsetter Name Role Phone Eliecer Salima Tate SWANN Primary Care Provider [phone] Encounter Details Date Type Department Care Team (Late st Contact Info) Description 10/13/2020 Transcribed Document [facility] [place] Family Medicine [address] [place] [address] ProviderQuincy MD [address] [place] [address] Social History Tobacco Use Types Packs/Day Years [...] On: 10/13/2020 15:02 EDT by Katia Pratt, Coding Assistant Primary Insurance Authorization Authorization and Policy Numbers : Insurance 1 Health Plan: [facility] MEDICARE REPL Policy Number: [id number] Authorization Number: Insurance Primary Name : [employer]THEM MEDICARE REPL Policy Number: [id number] Authorization Status-Primary : Denied Auth/Referral Contact Name-Primary : DC+ Reference Number-Primary : [id number] Authorized Service Begin Date-Primary : 10/03/2020 EDT Authorization Comments-Primary : Discharge date and summary faxed. Historical Authorization Comments-Primary : Comment 1: Email to David/Mary/MOSHE (JUSTEN HARTLEY, Rn-Utilization Review 10/13/2020 10:20) Comment 2: Rec fax from [place] 10/12/20 States admission has been denied. Fax to Jacque Tabor (TEMI LAMBERT, Senior Project Manager Engineering 10/12/2020 14:42) Comment 3: Per Jinny remains [...] 10/05/2020 14:13) Comment 8: Clinicals submitted via [employer] for IP approval (DEISY LIRA RN 10/04/2020 08:24) Katia Pratt, Coding Assistant - 10/13/2020 15:02 EDT documented in this encounter Plan of Treatment Not on file documented as of this encounter Visit Diagnoses Not on filedocumented in this encounter Care Teams Flagsetter Relationship Specialty Start Date End Date Salima Gonzáles, 8 [facility] [address] [place] [address] PCP - General Family Medicine 02/09/23 documented as of this encounter
--- OUTSIDE RECORDS SUMMARY | 2025-04-07 23:35 | XMS_ITS | Encounter Summary ---
Author Organization [employer] ([place], [place], [place], [place], [place]) Address [address] [place] [address] Care Team Providers Care Paperhanger Assistant Name Role Phone Eliecer Salimajovanni Ybarra DO Primary Care Provider [phone] Encounter Details Date Type Department Care Team (Late st Contact Info) Description 10/08/2019 Transcribed Document [facility] [place] [place] [address] [place] [address] ProviderQuincy MD [address] [place], [place] [id number] Social History Tobacco Use Types Packs/Day Years [...] Source : Stated Height Entry Format : [place] Height, Feet : 5 ft(Converted to: 152 cm, 60 Inch) Height, Inches : 1 Inch(Converted to: 0 ft 1 Inch, 2.54 cm) Clinical Height : 154.94 cm Weight Source : Standing scale Weight Entry Format : [place] Clinical Dosing Weight : 118.55 kg Weight, Pounds : 260.8 lb Body Surface Area (BSA) : 2.12 m2 Body Mass Index : 49.4 kg/m2 (>HHI) [place] Body Weight : 47 kg Whitney Huynh [...] Whitney Huynh Rn - 10/08/2019 9:18 EDT [place] Suicide Severity Rating Scale (C-SSRS) CSSRS Past [...] #2 Relationship : na Primary Language : Romanian Communication Barrier : None Whitney Huyhn Rn - 10/08/2019 9:18 EDT Sleep Apnea [...] Scale Risk Level : 0-24 Low Risk [place] Fall Interventions : Adequate lighting, Call device [...] on filedocumented in this encounter Care Teams Paperhanger Assistant Relationship Specialty Start Date End Date Salima Gonzáles DO [address] [place] [address] PCP - General Family Medicine 02/09/23 documented as of this encounter
--- OUTSIDE RECORDS SUMMARY | 2025-04-07 23:35 | XMS_ITS | Encounter Summary ---
Author Organization [employer] ([place], [place], [place], [place], [place]) Address [address] [place] [address] Care Team Providers Care Rabbit Dresser Name Role Phone Eliecer Salima Tate SWANN Primary Care Provider [phone] Encounter Details Date Type Department Care Team (Late st Contact Info) Description 10/03/2020 Transcribed Document [facility] Family Medicine [address] [place] [address] ProviderQuincy MD [address] [place], [place] [address] Social History Tobacco Use Types Packs/Day Years [...] #2 Relationship : father Primary Language : Dominican Communication Barrier : None Corporate Travel Manager Needed : No Cassie Colon RN - [...] Scale Risk Level : 25-45 Medium Risk [place] Fall Interventions : Adequate lighting, Assistive devices [...] (Last Updated: 10/08/2019 09:19:47 EDT by Whitney Hyunh, Festus) Substance Abuse: Drug Use Hx: No. (Last Updated: 10/08/2019 09:19:55 EDT by Whitney Huynh Rn) Height and Weight, Clinical Dosing Height Source : Stated Height Entry Format : [place] Height, Feet : 5 ft(Converted to: 152 cm, 60 Inch) Height, Inches : 1 Inch(Converted to: 0 ft 1 Inch, 2.54 cm) Clinical Height : 154.94 cm Weight Source : Bed scale Weight Entry Format : [place] Clinical Dosing Weight : 118.18 kg Weight, Pounds : 260 lb Body Surface Area (BSA) : 2.11 m2 Body Mass Index : 49.2 kg/m2 (>HHI) [place] Body Weight : 47 kg Cassie Colon [...] Cassie Colon RN - 10/03/2020 18:30 EDT [place] Suicide Severity Rating Scale (C-SSRS) CSSRS Past [...] on filedocumented in this encounter Care Teams Rabbit Dresser Relationship Specialty Start Date End Date Salima Gonzáles DO [address] [address] PCP - General Family Medicine 02/09/23 documented as of this encounter
--- OUTSIDE RECORDS SUMMARY | 2025-04-07 23:35 | XMS_ITS | Encounter Summary ---
Author Organization [employer] ([place], [place], [place], [place], [place]) Address [address] [place] [address] Care Team Providers Care Bulk Intake Worker Name Role Phone Anujlizbet Salima Tate SWANN Primary Care Provider [phone] Encounter Details Date Type Department Care Team (Late st Contact Info) Description 10/12/2020 Transcribed Document [facility] [place] [address] [place] [address] ProviderQuincy MD [address] [place], [place] [address] Social History Tobacco Use Types Packs/Day Years [...] [facility] MEDICARE REPL Policy Number: [id number] Authorization Number: Insurance Primary Name : OPHELIA MEDICARE REPL Policy Number: [id number] Authorization Status-Primary : Awaiting callback Reference Number-Primary : [id number] Authorized Service Begin Date-Primary : 10/03/2020 EDT Authorization Comments-Primary : Yeison Stearns remains pending Historical Authorization Comments-Primary : Comment 1: Faxed dc summary via [employer] (PING HOFFMANN RN 10/11/2020 12:12) Comment 2: Remains pending per [employer] (PING HOFFMANN RN 10/11/2020 12:11) Comment 3: Email sent to madelyn (PING HOFFMANN RN 10/09/2020 15:11) Comment 4: Clinicals faxed via [employer] for IP approval (DEISY LIRA RN 10/05/2020 14:13) Comment 5: Clinicals submitted via [employer] for IP approval (DEISY LIRA RN 10/04/2020 08:24) PING HOFFMANN RN - 10/12/2020 12:06 EDT documented in this encounter Plan of Treatment Not on file documented as of this encounter Visit Diagnoses Not on filedocumented in this encounter Care Teams Bulk Intake Worker Relationship Specialty Start Date End Date Salima Gonzáles, 8 [facility] [address] [place] [address] PCP - General Family Medicine 02/09/23 documented as of this encounter
--- OUTSIDE RECORDS SUMMARY | 2025-04-07 23:35 | XMS_ITS | Encounter Summary ---
Author Organization [employer] ([place], [place], [place], [place], [place]) Address [address] [place] [address] Care Team Providers Care Program Director/Air Personality Name Role Phone Eliecer Salima Tate SWANN Primary Care Provider [phone] Encounter Details Date Type Department Care Team (Late st Contact Info) Description 10/05/2020 Transcribed Document [facility] Family Medicine [address] [place] [address] ProviderQuincy MD [address] [place] [address] Social History Tobacco Use Types Packs/Day Years [...] On: 10/05/2020 14:02 EDT by EVONNE GABRIEL RN-Armor Reconnaissance Vehicle Driver Final Discharge Planning Discharge Arrangements : Patient Post-Acute Information Patient Name: AMBIKA PIERRE Gender: Female : [birth year] Age: 54 Years No Post-Acute Placement(s) Listed No Post-Acute Service(s) Listed No [place] Referral(s) Listed Transportation Needs : Family/Friend Follow Up Appointment Scheduled : Yes Is Patient High/Moderate Readmission Risk? : No Discharge To Care Management : Home/Residential/Group Home or Self Care - EVONNE GABRIEL, DIANE-Armor Reconnaissance Vehicle Driver - 10/05/2020 14:02 EDT Electronically signed by [facility] Conversion Ballistics Expert Cerner at 08/23/2022 11:08 AM CDT documented in this encounter Plan of Treatment Not on file documented as of this encounter Visit Diagnoses Not on filedocumented in this encounter Care Teams Program Director/Air Personality Relationship Specialty Start Date End Date Salima Gonzáles, [address] [address] PCP - General Family Medicine 02/09/23 documented as of this encounter
--- OUTSIDE RECORDS SUMMARY | 2025-04-07 23:35 | XMS_ITS | Encounter Summary ---
Author Organization [employer] ([place], [place], [place], [place], [place]) Address [address] [place] [address] Care Team Providers Care Winery Worker Name Role Phone Eliecer Salima Tate SWANN Primary Care Provider [phone] Encounter Details Date Type Department Care Team (Late st Contact Info) Description 10/08/2019 Transcribed Document [facility] [place] [address] [place] [address] ProviderQuincy MD [address] [place] [address] Social History Tobacco Use Types [...] Kate MD - 10/08/2019 10:35 AM CDT [facility] [place] [address] AMBIKA PIERRE :1965 Visit Time:10/08/2019 [...] office, November 09 at 11:00am Where: [address] [id number]- Medications What How Much When Instructions Next [...] serving. ??? Talk with a diet and fisheries specialist (dietitian) if you have questions about [...] Bulgur wheat. Millet. Quinoa. Bran muffins. Popcorn. [place] wafer crackers. Meats and other proteins [place], kidney, and cox beans. Soybeans. Split [...] Cream cheese. Sour cream. Fats and oils [place] Choice. Beverages Soft drinks. Other foods Cakes and [...] 04/23/2006 Document Revised: 02/25/2018 Document Reviewed: 02/25/2018 [facility] Interactive Patient Education ?? 2019 UpOut. Gastritis, Adult Gastritis is swelling (inflammation) of [...] these instructions at home: Medicines ??? Take pgbl-wft-biiibzu and prescription medicines only as told by [...] 10/09/2008 Document Revised: 09/10/2018 Document Reviewed: 09/10/2018 [facility] Interactive Patient Education ?? 2019 UpOut. Colitis Colitis is inflammation of the colon. [...] you start to feel better. ??? Take rbtc-xrr-dbssoxu and prescription medicines only as told by [...] 05/31/2005 Document Revised: 10/24/2018 Document Reviewed: 10/24/2018 [facility] Interactive Patient Education ?? 2019 Elsevier Inc. [...] times a day. General instructions ??? Take axpc-iik-ysyhrzg and prescription medicines only as told by [...] 01/30/2009 Document Revised: 09/12/2018 Document Reviewed: 09/12/2018 [facility] Interactive Patient Education ?? 2019 UpOut. Colonoscopy, Adult, Care After This sheet gives [...] soft and easy to digest. ??? Take xckv-fmb-vceslup or prescription medicines only as told by [...] 05/26/2011 Document Revised: 02/21/2018 Document Reviewed: 01/15/2017 [facility] Interactive Patient Education ?? 2019 [facility] Esophagogastroduodenoscopy, Care After Refer to this [...] 04/09/2013 Document Revised: 09/28/2016 Document Reviewed: 03/16/2016 [facility] Interactive Patient Education ?? 2019 UpOut. metronidazole (me irma hawk) FIRST Metronidazole, Flagyl, [...] (more likely to occur while taking metronidazole termite control service representative): ?? numbness, tingling, or burning pain in [...] may report side effects to FDA at 1-370-JWW-2714. What other drugs will affect metronidazole? Sometimes [...] drugs may affect metronidazole, including prescription and sunz-twt-mtyiauv medicines, vitamins, and herbal products. Not all [...] to ensure that the information provided by SpotHero. ('Multum') is accurate, up-to-date, and complete, but no guarantee is made to that effect. Drug information contained herein may be time sensitive. SMITH (formerly [employer]ent[employer]) information has been compiled for use by healthcare practitioners and consumers in the [place] and therefore SMITH (formerly Ascent[employer]) does not warrant that uses outside of the [place] are appropriate, unless specifically indicated otherwise. Advanced [employer] System[employer] drug information does not endorse drugs, diagnose patients or recommend therapy. [employer] drug information is an informational resource designed [...] effective or appropriate for any given patient. [employer] (formerly [employer]) does not assume any responsibility for any aspect of healthcare administered with the aid of information SMITH (formerly [employer]) provides. The information contained herein is not intended to cover all possible uses, directions, precautions, warnings, drug interactions, allergic reactions, or adverse effects. If you have questions about the drugs you are taking, check with your doctor, nurse or pharmacist. Copyright 6614-7631 Cerner Multum, Inc. Version: 12.02. Revision Date: [...] may report side effects to FDA at 9-967-BPB-4813. What other drugs will affect linaclotide? Other drugs may interact with linaclotide, including prescription, bwme-gpi-kzjrimf, vitamin, and herbal products. Tell your doctor [...] to ensure that the information provided by SpotHero. ('Multum') is accurate, up-to-date, and complete, but no guarantee is made to that effect. Drug information contained herein may be time sensitive. SMITH (formerly [employer]) information has been compiled for use by healthcare practitioners and consumers in the [place] and therefore SMITH (formerly [employer]) does not warrant that uses outside of the [place] are appropriate, unless specifically indicated otherwise. [employer] drug information does not endorse drugs, diagnose patients or recommend therapy. [employer] drug information is an informational resource designed [...] effective or appropriate for any given patient. [employer] (formerly [employer]) does not assume any responsibility for any aspect of healthcare administered with the aid of information [employer]ITH (formerly [employer]) provides. The information contained herein is not intended to cover all possible uses, directions, precautions, warnings, drug interactions, allergic reactions, or adverse effects. If you have questions about the drugs you are taking, check with your doctor, nurse or pharmacist. Copyright 7389-6217 SpotH[employer]. Version: 4.02. Revision Date: 01/23/2017. pantoprazole (oral/injection) [...] a broken bone while taking this medicine termite control service representative or more than once per day. What [...] may report side effects to FDA at 2-726-MRO-1315. What other drugs will affect pantoprazole? Tell your doctor about all your other medicines, especially: ?? digoxin; ?? methotrexate; or ?? a diuretic or 'water pill.' This list is not complete. Other drugs may affect pantoprazole, including prescription and epck-fak-skzqjoi medicines, vitamins, and herbal products. Not all [...] to ensure that the information provided by SpotHero. ('Satmetrixtum') is accurate, up-to-date, and complete, but no guarantee is made to that effect. Drug information contained herein may be time sensitive. [employer]ITH (formerly [employer]) information has been compiled for use by healthcare practitioners and consumers in the [place] and therefore [employer] (formerly [employer]) does not warrant that uses outside of the [place] are appropriate, unless specifically indicated otherwise. [employer] drug information does not endorse drugs, diagnose patients or recommend therapy. [employer] drug information is an informational resource designed [...] effective or appropriate for any given patient. [facility] does not assume any responsibility for any aspect of healthcare administered with the aid of information Xigage provides. The information contained herein is not intended to cover all possible uses, directions, precautions, warnings, drug interactions, allergic reactions, or adverse effects. If you have questions about the drugs you are taking, check with your doctor, nurse or pharmacist. Copyright 1013-7369 [employer]. Version: 19.02. Revision Date: 10/30/2017. Emergency Awareness [...] Assistance with quitting is available by contacting 9-929-SIET-NOW. This is a free resource providing counseling, [...] was given the opportunity to ask questions. Patient/Home Energy Rater Name: Patient/Home Energy Rater Signature: Relationship to Patient: Clinician/Hospital Home Energy Rater Signature: Date: Electronically signed by Nuzhat Barahona Conversion Phosphatic Fertilizer Supervisor Michael at 08/23/2022 11:18 AM CDT documented in this encounter Plan of Treatment Not on file documented as of this encounter Visit Diagnoses Not on filedocumented in this encounter Care Teams Winery Worker Relationship Specialty Start Date End Date Salima Gonzáles, [address] [facility] [address] [place] [address] PCP - General Family Medicine 02/09/23 documented as of this encounter
--- OUTSIDE RECORDS SUMMARY | 2025-04-07 23:35 | XMS_ITS | Encounter Summary ---
Author Organization [employer] ([place], [place], [place], [place], [place]) Address [address] [place] [address] Care Team Providers Care Drop Shipment Clerk Name Role Phone Salima Gonzáles Primary Care Provider [phone] Encounter Details Date Type Department Care Team (Late st Contact Info) Description 10/03/2020 Transcribed Document [facility] [place] [facility] [place] [address] ProviderQuincy MD [address] [place], [place] [address] Social History Tobacco Use Types Packs/Day Years [...] 10/03/2020 19:18 EDT by Tereza Carrera Patient Utilization Supervisor Shira Phone Call for Consults Consult Phone Call/Page Attempt : First call Consult Reason : obstructing stone Physician Requesting Consult : TIM MCCORMICK, DO-INT Physician Requested for Consult : DILLON HOFFMANN MD Provider Team Notified Name : Urology Physician Covering for Consult : ANNABEL ZAMBRANO MD-URO Date and Time Call Returned : 10/04/2020 9:51 EDT Deandre, Tereza N, Patient Utilization Supervisor I - 10/04/2020 9:48 EDT Electronically signed by [place], [facility] Conversion Individual Pension Adviser Cerner at 08/23/2022 10:50 AM CDT documented in this encounter Plan of Treatment Not on file documented as of this encounter Visit Diagnoses Not on filedocumented in this encounter Care Teams Drop Shipment Clerk Relationship Specialty Start Date End Date Salima Gonzáles, DO [address] [facility] [address] [place] [address] PCP - General Family Medicine 02/09/23 documented as of this encounter
--- OUTSIDE RECORDS SUMMARY | 2025-04-07 23:35 | XMS_ITS | Encounter Summary ---
Author Organization [employer] ([place], [place], [place], [place], [place]) Address [address] [place] [address] Care Team Providers Care Wheel Lacer And Truer Name Role Phone Eliecer Salima Tate SWANN Primary Care Provider [phone] Encounter Details Date Type Department Care Team (Late st Contact Info) Description 10/08/2019 Transcribed Document [facility] [place] [address] [place] [address] ProviderQuincy MD [address] [place] [address] Social History Tobacco Use Types [...] Kate MD - 10/08/2019 10:26 AM CDT [facility] [place] [address] AMBIKA PIERRE :1965 Visit Time:10/08/2019 [...] concerns Follow-Up Appointments Follow Up with WARREN MNARIQUE MD When In 1 month , only if needed Comments see procedure report for recommendations, follow up in Dr Orona office, November 09 at 11:00am Where: [address] [id number]- Medications What How Much When Instructions Next [...] serving. ??? Talk with a diet and adolescent specialist (dietitian) if you have questions about [...] Bulgur wheat. Millet. Quinoa. Bran muffins. Popcorn. [place] wafer crackers. Meats and other proteins [place], kidney, and cox beans. Soybeans. Split peas. [...] Cream cheese. Sour cream. Fats and oils Arcade. Beverages Soft drinks. Other foods Cakes and [...] 04/23/2006 Document Revised: 02/25/2018 Document Reviewed: 02/25/2018 [employer] Interactive Patient Education ?? 2019 SpinUtopia. Gastritis, Adult Gastritis is swelling (inflammation) of [...] these instructions at home: Medicines ??? Take evah-oqw-onwuhgg and prescription medicines only as told by [...] 10/09/2008 Document Revised: 09/10/2018 Document Reviewed: 09/10/2018 [facility] Interactive Patient Education ?? 2019 SpinUtopia. Colitis Colitis is inflammation of the colon. [...] you start to feel better. ??? Take syqf-xjx-dndqwph and prescription medicines only as told by [...] 05/31/2005 Document Revised: 10/24/2018 Document Reviewed: 10/24/2018 [facility] Interactive Patient Education ?? 2019 Elsevier Inc. [...] times a day. General instructions ??? Take wnhi-rbi-weruxdf and prescription medicines only as told by [...] 01/30/2009 Document Revised: 09/12/2018 Document Reviewed: 09/12/2018 [employer] Interactive Patient Education ?? 2019 SpinUtopia. Colonoscopy, Adult, Care After This sheet gives [...] soft and easy to digest. ??? Take lhuy-ody-lzafupd or prescription medicines only as told by [...] 05/26/2011 Document Revised: 02/21/2018 Document Reviewed: 01/15/2017 [employer] Interactive Patient Education ?? 2019 Vizy Inc. Esophagogastroduodenoscopy, Care After Refer to this [...] 04/09/2013 Document Revised: 09/28/2016 Document Reviewed: 03/16/2016 [employer] Interactive Patient Education ?? 2019 SpinUtopia. metronidazole (me irma hawk) FIRST Metronidazole, Flagyl, [...] (more likely to occur while taking metronidazole intermediate school teacher): ?? numbness, tingling, or burning pain in [...] may report side effects to FDA at 4-227-QXU-0384. What other drugs will affect metronidazole? Sometimes [...] drugs may affect metronidazole, including prescription and hwen-ptl-mvldozy medicines, vitamins, and herbal products. Not all [...] to ensure that the information provided by [employer]. ('Multum') is accurate, up-to-date, and complete, but no guarantee is made to that effect. Drug information contained herein may be time sensitive. [employer] information has been compiled for use by healthcare practitioners and consumers in the [place] and therefore [employer] does not warrant that uses outside of the [place] are appropriate, unless specifically indicated otherwise. [employer] drug information does not endorse drugs, diagnose patients or recommend therapy. [facility] drug information is an informational resource designed [...] effective or appropriate for any given patient. [employer] does not assume any responsibility for any aspect of healthcare administered with the aid of information [employer] provides. The information contained herein is not intended to cover all possible uses, directions, precautions, warnings, drug interactions, allergic reactions, or adverse effects. If you have questions about the drugs you are taking, check with your doctor, nurse or pharmacist. Copyright 9858-5326 Cerner Multum, Inc. Version: 12.02. Revision Date: [...] may report side effects to FDA at 0-805-OCX-7236. What other drugs will affect linaclotide? Other drugs may interact with linaclotide, including prescription, ewle-xnd-aqucqgn, vitamin, and herbal products. Tell your doctor [...] to ensure that the information provided by Promolta. ('Multum') is accurate, up-to-date, and complete, but no guarantee is made to that effect. Drug information contained herein may be time sensitive. [employer] information has been compiled for use by healthcare practitioners and consumers in the [place] and therefore [employer] does not warrant that uses outside of the [place] are appropriate, unless specifically indicated otherwise. [employer] drug information does not endorse drugs, diagnose patients or recommend therapy. [facility] drug information is an informational resource designed [...] effective or appropriate for any given patient. [employer] does not assume any responsibility for any aspect of healthcare administered with the aid of information [employer] provides. The information contained herein is not intended to cover all possible uses, directions, precautions, warnings, drug interactions, allergic reactions, or adverse effects. If you have questions about the drugs you are taking, check with your doctor, nurse or pharmacist. Copyright 4816-0636 Promolta. Version: 4.02. Revision Date: 01/23/2017. pantoprazole (oral/injection) [...] a broken bone while taking this medicine intermediate school teacher or more than once per day. What [...] may report side effects to FDA at 5-237-UJN-8248. What other drugs will affect pantoprazole? Tell your doctor about all your other medicines, especially: ?? digoxin; ?? methotrexate; or ?? a diuretic or 'water pill.' This list is not complete. Other drugs may affect pantoprazole, including prescription and roep-yyy-ezmgrrq medicines, vitamins, and herbal products. Not all [...] to ensure that the information provided by Promolta. ('Oraveltum') is accurate, up-to-date, and complete, but no guarantee is made to that effect. Drug information contained herein may be time sensitive. [employer] information has been compiled for use by healthcare practitioners and consumers in the [place] and therefore [employer] does not warrant that uses outside of the [place] are appropriate, unless specifically indicated otherwise. [facility] drug information does not endorse drugs, diagnose patients or recommend therapy. [place] drug information is an informational resource designed [...] given patient. [facility] does not assume any responsibility for any aspect of healthcare administered with the aid of information Xigage provides. The information contained herein is not intended to cover all possible uses, directions, precautions, warnings, drug interactions, allergic reactions, or adverse effects. If you have questions about the drugs you are taking, check with your doctor, nurse or pharmacist. Copyright 2625-4492 Promolta. Version: 19.02. Revision Date: 10/30/2017. Emergency Awareness [...] Assistance with quitting is available by contacting 3-849-HOVF-NOW. This is a free resource providing counseling, [...] was given the opportunity to ask questions. Patient/Cook Apprentice Name: Patient/Cook Apprentice Signature: Relationship to Patient: Clinician/Hospital Cook Apprentice Signature: Date: documented in this encounter Plan of Treatment Not on file documented as of this encounter Visit Diagnoses Not on filedocumented in this encounter Care Teams Wheel Lacer And Truer Relationship Specialty Start Date End Date Salima Gonzáles, [address] [facility] [address] [place] [address] PCP - General Family Medicine 02/09/23 documented as of this encounter
--- OUTSIDE RECORDS SUMMARY | 2025-04-07 23:35 | XMS_ITS | Encounter Summary ---
Author Organization [employer] ([place], [place], [place], [place], [place]) Address [address] [place] [address] Care Team Providers Care Superintendent Generating Plant Name Role Phone Salima Gonzáles Primary Care Provider [phone] Encounter Details Date Type Department Care Team (Late st Contact Info) Description 10/03/2020 Transcribed Document [facility] [place] [address] [place] [address] ProviderQuincy MD [address] [place], [place] [id number] Social History Tobacco Use Types Packs/Day Years [...] on filedocumented in this encounter Care Teams Superintendent Generating Plant Relationship Specialty Start Date End Date Salima Gonzáles, [address] [facility] [address] [place] [address] PCP - General Family Medicine 02/09/23 documented as of this encounter
--- OUTSIDE RECORDS SUMMARY | 2025-04-07 23:35 | XMS_ITS | Encounter Summary ---
Author Organization [employer] ([place], [place], [place], [place], [place]) Address [address] [place] [address] Care Team Providers Care Loss Prevention Analyst Name Role Phone Eliecer Salima Tate SWANN Primary Care Provider [phone] Encounter Details Date Type Department Care Team (Late st Contact Info) Description 10/03/2020 Transcribed Document [facility] [place] [address] [place] [address] ProviderQuincy MD [address] [place], [place] [address] Social History Tobacco Use Types Packs/Day Years [...] EDT Electronically signed by Nuzhat Barahona Conversion Precision Agriculture Specialist Cerner at 08/23/2022 11:01 AM CDT documented in this encounter Plan of Treatment Not on file documented as of this encounter Visit Diagnoses Not on filedocumented in this encounter Care Teams Loss Prevention Analyst Relationship Specialty Start Date End Date Salima Gonzáles, DO [address] [address] PCP - General Family Medicine 02/09/23 documented as of this encounter
--- OUTSIDE RECORDS SUMMARY | 2025-04-07 23:35 | XMS_ITS | Encounter Summary ---
Author Organization [employer] ([place], [place], [place], [place], [place]) Address [address] [place] [address] Care Team Providers Care Water Hauler Name Role Phone Salima Gonzáles DO Primary Care Provider [phone] Encounter Details Date Type Department Care Team (Late st Contact Info) Description 10/05/2020 Transcribed Document [facility] [place] [address] [place] [address] ProviderQuincy MD [address] [place] [address] Social History Tobacco Use Types Packs/Day Years [...] On: 10/05/2020 13:56 EDT by EVONNE GABRIEL, DIANE-Rehab Liaison Initial Assessment I Previously Documented Living Environment [...] Is Guardianship Needed : No EVONNE GABRIEL RN-Rehab Liaison - 10/05/2020 13:56 EDT Initial Assessment II Sensory and Motor Deficits : None Current Home Treatments and Equipment : Nebulizer Services and Community Resources : Home Health (Comment: Pt states that she has used a couple of HH agencies in the past after her knee replacement [EVONNE GABRIEL RN-Rehab Liaison - 10/05/2020 13:56 EDT] ) Services and Community Resources Addl Comments : Signature of Nayeli nath 8-9 years ago after knee replacement EVONNE GABRIEL RN-Rehab Liaison - 10/05/2020 13:56 EDT Discharge Needs I Anticipated Discharge Date : 10/05/2020 EDT Anticipated Discharge To, CM : Home independently Current Home Treatment/Equipment : Current Home Treatment/Equipment No qualifying data available. Post Acute/Home Treatments : None Documentation Status Complete : Yes EVONNE GABRIEL RN-Rehab Liaison - 10/05/2020 13:56 EDT Discharge Needs II Professional Skilled Services : Professional Skilled Services No qualifying data available. Needs Assistance with Transportation : No EVONNE GABRIEL RN-Rehab Liaison - 10/05/2020 13:56 EDT Narrative Note Narrative Note : Received from [facility] to here due to kidney stone. Urology consulted. Pt had ureteroscopy, laser lithotripsy with stent placement. Met with Pt at the bedside. Role of CM explained. Pt states that she is ADL independent, lives home alone. Plans are to return home when discharged. No needs antcipated/verbalized at this time. RRS is low @ 37, boost 5. CM will follow. EVONNE GABRIEL RN-Rehab Liaison - 10/05/2020 13:56 EDT documented in this encounter Plan of Treatment Not on file documented as of this encounter Visit Diagnoses Not on filedocumented in this encounter Care Teams Water Hauler Relationship Specialty Start Date End Date Salima Gonzáles, DO [address] [facility] [address] [place] [address] PCP - General Family Medicine 02/09/23 documented as of this encounter
--- OUTSIDE RECORDS SUMMARY | 2025-04-07 23:35 | XMS_ITS | Encounter Summary ---
Author Organization [facility] yste Address [address] [place] [address] Care Team Providers Care Shop Tailor Name Role Phone Salima Gonzáles DO Primary Care Provider [phone] Encounter Details Date Type Department Care Team (Late st Contact Info) Description 10/07/2024 Results Follow-Up [facility] CARDIOLOGY [address] [place] [address] Alea Juarez, LINING CASER [address] [place] [address] Social History Tobacco Use Types Packs/Day Years [...] on filedocumented in this encounter Care Teams Shop Tailor Relationship Specialty Start Date End Date Salima Gonzáles DO [facility] [place] [address] PCP - General Family Medicine 02/21/17 documented as of this encounter
--- OUTSIDE RECORDS SUMMARY | 2025-04-07 23:35 | XMS_ITS | Clinical Summary ---
Author Organization Healthcare Address [address] [place] [address] Care Team Providers Care Regional Wildlife Agent Name Role Phone Salima Gonzáles DO Primary Care Provider [phone] Allergies Active Allergy Reactions Criticality Noted Date [...] - Risk 60-74 years 1-dose series) 2024 [facility]-ILINF-10 Vaccine (5 - 2024- season) 2025 02/23/2022, [...] this topic Medical Devices Implanted Type Area Pocket Setter Device Identifier Shelf Expiration Date Model / Serial / Lot Nail Femoral Retro T2 Alpha 11mm X 340mm - [id number] Implanted:Qty: 1 on 05/01/2021 by Crow Lockwood MD at [facility] Nail Left: Femur [employer] [facility][id number] 10/04/2030 [id number] / / [id number] Screw Locking T2 D5xl80 - [id number] Implanted:Qty: 1 on 05/01/2021 by Bebeto Flynn MD at [facility] Screw Left: Femur [employer] ([facility])-[id number] 09/03/2030 [id number] / / [id number] Screw Locking T2 D5xl60 - [id number] Implanted:Qty: 1 on 05/01/2021 by Bebeto Flynn MD at [facility] Screw Left: Femur [employer] ([facility])-[id number] 02/03/2031 [id number] / / [id number] Screw Locking T2 D5xl50 - [id number] Implanted:Qty: 1 on 05/01/2021 by Bebeto Flynn MD at [facility] Screw Left: Femur [employer] ([facility][id number] 02/03/2031 [id number] / / [id number] Screw Locking T2 D5xl75 - [id number] Implanted:Qty: 1 on 05/01/2021 by Bebeto Flynn MD at [facility] Screw Left: Femur [employer] ([facility])-[id number] 8 01/04/2031 [id number] / / [id number] Screw Locking T2 D5xl55 - [id number] Implanted:Qty: 1 on 05/01/2021 by Bebeto Flynn MD at [facility] Screw Left: Femur [employer] ([facility])-[id number] 8 12/04/2030 2360-5055S / / [id number] Screw Locking T2 D5x32.5 - [id number] Implanted:Qty: 1 on 05/01/2021 by Bebeto Flynn MD at [facility] Screw Left: Femur [employer] ([facility])-[id number] 8 01/04/2031 2360-5032S / / [id number] Screw Locking T2 D5x37.5 - [id number] Implanted:Qty: 1 on 05/01/2021 by Bebeto Flynn MD at [facility] Screw Left: Femur [employer] ([facility])-[id number] 8 01/04/2031 2360-5037S / / [id number] Procedures Procedure Name Priority Date/Time Associated Diagnosis [...] Adults <6.0% Children and Adolescents <7.5% Source: [place] [employer]. Standards of medical care in diabetes,2017. Diabetes Care.2017:40 (suppl 1):S1-S135. HbA1c assay performed by an ion-exchange chromatography method that is certified traceable to the DCCT. us Drew Matos MD LAB BLOOD ORDERABLES Final Re sult [facility] [address] [place] [address] from Last 3 Months or Most Recently Relevant to Health Maintenance Insurance [facility] MEDICARE Advance Directives * Full Code (Latest Code Status on File) Date Activated Date Inactivated Comments 04/30/2021 4:10 PM 05/07/2021 11:19 AM Question Answer Comments Patient has decision-making capacity? Yes Care Teams Regional Wildlife Agent Relationship Specialty Start Date End Date Salima Gonzáles DO [address] [place] [address] PCP - General 09/17/20
--- OUTSIDE RECORDS SUMMARY | 2025-04-07 23:35 | XMS_ITS | Encounter Summary ---
Author Organization [employer] ([place], [place], [place], [place], [place]) Address [address] [place] [address] Care Team Providers Care Renal Medicine Physician Name Role Phone Salima Gonzáles Tate SWANN Primary Care Provider [phone] Encounter Details Date Type Department Care Team (Late st Contact Info) Description 10/03/2020 Transcribed Document [facility] [place] Family Medicine [address] [place] [address] ProviderQuincy MD [address] [place], [place] [address] Social History Tobacco Use Types Packs/Day Years [...] version of the form. Electronically signed by Nuzhat Barahona Conversion Worker'S Compensation Claims Examiner Cerner at 08/27/2022 3:31 PM CDT documented in this encounter Plan of Treatment Not on file documented as of this encounter Visit Diagnoses Not on filedocumented in this encounter Care Teams Renal Medicine Physician Relationship Specialty Start Date End Date Salima Gonzáles, DO [address] [address] PCP - General Family Medicine 02/09/23 documented as of this encounter
--- OUTSIDE RECORDS SUMMARY | 2025-04-07 23:35 | XMS_ITS | Encounter Summary ---
Author Organization [employer] ([place], [place], [place], [place], [place]) Address [address] [place] [address] Care Team Providers Care Agile Scrum Coach Name Role Phone Salima Gonzáles Primary Care Provider [phone] Encounter Details Date Type Department Care Team (Late st Contact Info) Description 10/08/2019 Transcribed Document [facility] [place] [address] [place] [address] ProviderQuincy MD [address] [place], [place] [address] Social History Tobacco Use Types Packs/Day Years [...] Kate MD - 10/08/2019 9:47 AM CDT [facility] Endo IntraOp Summary Primary Physician: AWRREN MANRIQUE MD Finalized Date/Time: 10/08/19 10:06:04 Pt. Name: AMBIKA PIERRE/Sex: 1965 Female Med Rec #: [id number] Physician: WARREN MANRIQUE MD Financial #: [id number] Pt. Type: O Room/Bed: / Admit/Disch: 10/08/19 08:47:00 - Institution: [facility] Endo - Case Attendance Entry 1 Entry 2 Entry 3 Case Attendee HILARIA, MD ARON KELLEY JEANNIE Thayer, Dena, DIANE Role Performed Surgeon/Proceduralist, Scrub, Fluid Jet Cutter Operator, First First Time In 10/08/19 09:38:00 10/08/19 [...] DAKOTA Amaya MD-ANS Role Performed Scrub, First MEDICAL LABORATORY TECHNICIAN/Nurse Sap Technical Developer Anesthesiologist of Record Time In 10/08/19 09:38:00 10/08/19 09:38:00 10/08/19 09:38:00 Time Out 10/08/19 10:06:00 10/08/19 10:06:00 10/08/19 10:06:00 Procedure Gastric Biopsy, Colon Gastric Biopsy, Colon Gastric Biopsy, Colon Biopsy Biopsy Biopsy Other Attendee Superficial Wound Closed By: Last Modified By: Elizabeth Anaya, Elizabeth Schilling, Elizabeth Schilling RN 10/08/19 10:03:23 10/08/19 10:03:23 10/08/19 10:03:23 [facility] Endo - Case Attendance Audit 10/08/19 10:03:23 Truck Headlight Assembler: [id number] Modifier: [id number] 1 <+> Time Out 1 <*> Procedure [...] Procedure Gastric Biopsy, Colon Biopsy 10/08/19 10:02:21 Truck Headlight Assembler: [id number] Modifier: [id number] 1 <*> Procedure Esophagogastroduodenoscopy, Colonoscopy, Gastric Biopsy 2 <*> Procedure Gastric Biopsy 3 <*> Procedure Gastric Biopsy 4 <*> Procedure Gastric Biopsy 5 <*> Procedure Gastric Biopsy 6 <*> Procedure Gastric Biopsy 10/08/19 09:50:05 Truck Headlight Assembler: [id number] Modifier: [id number] 1 <*> Procedure Esophagogastroduodenoscopy, Colonoscopy <+> 2 Procedure <+> 3 Procedure <+> 4 Procedure <+> 5 Procedure <+> 6 Procedure 10/08/19 09:39:56 Truck Headlight Assembler: [id number] Modifier: [id number] 1 <+> Time In 1 <*> Procedure Esophagogastroduodenoscopy, Colonoscopy <+> 2 Time In <+> 3 Time In <+> 4 Time In <+> 5 Time In <+> 6 Time In 10/08/19 09:31:42 Truck Headlight Assembler: [id number] Modifier: [id number] <+> 2 Case Attendee <+> 2 Role Performed <+> 3 Case Attendee <+> 3 Role Performed <+> 4 Case Attendee <+> 4 Role Performed <+> 5 Case Attendee <+> 5 Role Performed <+> 6 Case Attendee <+> 6 Role Performed [facility] Endo - Case times Entry 1 Patient In Room Time 10/08/19 09:38:00 Out Room Time 10/08/19 10:06:00 Anesthesia Start Time 10/08/19 09:38:00 Stop Time 10/08/19 10:06:00 Surgery / Procedure Times Start Time 10/08/19 09:47:00 Stop Time 10/08/19 10:03:00 Last Modified By: Elizabeth Anaya RN 10/08/19 10:03:21 [facility] Endo - Case times Audit 10/08/19 10:03:21 Truck Headlight Assembler: [id number] Modifier: [id number] <+> 1 Out Room Time <+> 1 Stop Time <+> 1 Stop Time 10/08/19 09:47:20 Truck Headlight Assembler: [id number] Modifier: [id number] <+> 1 Start Time [facility] Endo - Cultures and Spec Summary Entry 1 Cultrures and Specimens Specimen Ordered: Yes Test(s) Routine/Path-Lab Requested/Final Disposition Last Modified By: Elizabeth Anaya RN 10/08/19 09:50:17 [facility] Endo - Delays Entry 1 Delay Reason No Delay Duration 0 Minute(s) Last Modified By: Elizabeth Anaya RN 10/08/19 09:32:22 [facility] Endo - Departure from OR Entry 1 Integumentary Assessment Integumentary WDL Assessment WDL Transfer/Handoff Transfer to PACU Phase I Handoff Method Bedside/Face to face Post-op Transport Stretcher/Gurney Via Patient Transport Claudia Dupree Crna Accompanied by Last Modified By: Elizabeth Anaya RN 10/08/19 09:32:45 [facility] Endo - Endoscopy Details Entry 1 Abdomen Procedure Soft, Non-Tender Assessment Procedure Abdomen 10/08/19 09:32:00 Assessment D/T Radio Frequency Ablation Abdominal Pressure Last Modified By: Elizabeth Anaya RN 10/08/19 09:32:34 [facility] Endo - Fire Risk Assessment Entry 1 Fire Info Surgical Site or 1- Yes Incision Above the Xyphoid Open O2 Source 1- Yes (Mask or Cannula) Available Ignition 1- Yes (ESU, Laser, Light Source) Fire Risk 3 Assessment Score Fire Score Fire Risk Yes Assessment Complete Fire Risk Elizabeth Anaya, rn triage Verified By Fire Risk 10/08/19 09:32:00 Assessment Verified Date/Time Fire Risk High Risk Protocol Yes Implemented Standard Fire Yes Safety Precautions Followed Last Modified By: Elizabeth Anaya RN 10/08/19 09:33:30 [facility] Endo - Fire Risk Assessment Audit 10/08/19 09:33:30 Truck Headlight Assembler: [id number] Modifier: [id number] <+> 1 Fire Risk Assessment Complete [facility] Endo - General Case Band Straightener 1 Case Information OR Endo 03 [facility] Case Level 1 Room Verified Yes Wound Class III - Contaminated Specialty SN Gastroenterology Anesthesia Type General ASA Class 4 Diagnosis Preop Diagnosis dyspepsia, change in bowel habits Postop Same As Preop No Postop Diagnosis Chronic gastritis, history gastric bypass Last Modified By: Elizabeth Anaya RN 10/08/19 09:52:07 [facility] Endo - General Case Data Audit 10/08/19 09:52:07 Truck Headlight Assembler: [id number] Modifier: [id number] 1 <*> Postop Same As Preop Yes 1 <*> Postop Diagnosis dyspepsia, change in bowel habits 10/08/19 09:43:44 Truck Headlight Assembler: [id number] Modifier: [id number] 1 <*> Preop Diagnosis R19.7 R10.9 1 <*> Postop Diagnosis R19.7 R10.9 [facility] Endo - Intraoperative Assessment Entry 1 Valid History / Yes Physical in Chart Preoperative Yes Checklist Reviewed/Evaluated Patient is Latex No Sensitive Level of WDL Consciousness (WDL = Alert, Oriented to Person, Place, and Time) Last Modified By: Elizabeth Anaya RN 10/08/19 09:33:43 [facility] Endo - Intraoperative Equipment Entry 1 Equipment Intraop Monitoring Electrocardiogram Three lead placement (ECG) Electrode Placement Blood Pressure Arm, left upper Location Pulse Oximeter Hand, right Probe Site Antiembolic Devices Scopes Flexible Endoscopes Gastroscope Used Scope Serial E O Number/Identificatio n Number Photo/Video Documentation Photo Yes Video No Last Modified By: Elizabeth Anaya RN 10/08/19 09:43:26 [facility] Endo - Patient Positioning Entry 1 Procedure [...] Modified By: Elizabeth Anaya RN 10/08/19 10:02:22 [facility] Endo - Patient Positioning Audit 10/08/19 10:02:22 Truck Headlight Assembler: [id number] Modifier: [id number] 1 <*> Procedure Esophagogastroduodenoscopy, Gastric Biopsy 10/08/19 09:50:05 Truck Headlight Assembler: [id number] Modifier: [id number] 1 <*> Procedure Esophagogastroduodenoscopy [facility] Endo - Sign In Entry 1 Patient, Site, Yes Procedure Identified Surgical Consent Yes Confirmed Surgical Site N/A Marked by person performing procedure Airway Hypothermia Risk No Warming Measures No Taken Last Modified By: Elizabeth Anaya RN 10/08/19 09:34:14 [facility] Endo - Sign Out Entry 1 RN [...] Modified By: Elizabeth Anaya RN 10/08/19 10:04:03 [facility] Endo - Surgical Procedures Entry 1 Entry [...] Modified By: Elizabeth Anaya RN 10/08/19 10:03:34 [facility] Endo - Surgical Procedures Audit 10/08/19 10:03:34 Truck Headlight Assembler: [id number] Modifier: [id number] 2 <*> Procedure Colonoscopy 2 <+> Stop <+> 4 Stop 10/08/19 10:02:18 Truck Headlight Assembler: [id number] Modifier: [id number] 2 <*> Procedure Colonoscopy 2 <*> Start 10/08/19 09:47:00 2 <+> Physician States Cecum Reached <+> 4 Procedure <+> 4 Primary Procedure <+> 4 Primary Surgeon <+> 4 Specialty <+> 4 Start <+> 4 Wound Class <+> 4 Anesthesia Type <+> 4 Additional Procedure Description <+> 4 Physician States Cecum Reached 10/08/19 09:51:41 Truck Headlight Assembler: [id number] Modifier: [id number] <*> Procedure Gastric Biopsy 3 <+> Stop 10/08/19 09:50:35 Truck Headlight Assembler: [id number] Modifier: [id number] 1 <*> Procedure Esophagogastroduodenoscopy 1 <+> Stop 10/08/19 09:50:01 Truck Headlight Assembler: [id number] Modifier: [id number] 1 <*> Procedure Esophagogastroduodenoscopy 1 <+> Start 1 <+> Additional Procedure Description <+> 2 Start <+> 3 Procedure <+> 3 Primary Procedure <+> 3 Primary Surgeon <+> 3 Specialty <+> 3 Start <+> 3 Wound Class <+> 3 Anesthesia Type <+> 3 Additional Procedure Description [facility] Endo - Time Out Entry 1 Procedure [...] Modified By: Elizabeth Anaya RN 10/08/19 10:02:22 [facility] Endo - Time Out Audit 10/08/19 10:02:22 Truck Headlight Assembler: [id number] Modifier: [id number] 1 <*> Procedure to be Performed Esophagogastroduodenoscopy, Colonoscopy, Gastric Biopsy 10/08/19 09:50:06 Truck Headlight Assembler: [id number] Modifier: [id number] 1 <*> Procedure to be Performed Esophagogastroduodenoscopy, Colonoscopy Case Comments <None> Finalized By: Elizabeth Anaya, RN Document Signatures Signed By: Elizabeth Anaya, RN 10/08/19 10:06 Electronically signed by Brooklyn [facility] Conversion Automatic Machines Supervisor Cerner at 08/23/2022 10:56 AM CDT documented in this encounter Plan of Treatment Not on file documented as of this encounter Visit Diagnoses Not on filedocumented in this encounter Care Teams Agile Scrum Coach Relationship Specialty Start Date End Date Salima Gonzáles, DO 8 [facility] [address] [place] [address] PCP - General Family Medicine 02/09/23 documented as of this encounter
--- OUTSIDE RECORDS SUMMARY | 2025-04-07 23:35 | XMS_ITS | Encounter Summary ---
Author Organization [employer] ([place], [place], [place], [place], [place]) Address [address] [place] [address] Care Team Providers Care Business Development Intern Name Role Phone Salima Gonzáles Tate SWANN Primary Care Provider Encounter Details Date Type Department Care Team (Late st Contact Info) Description 10/04/2020 Transcribed Document [facility] [place] Family Medicine [address] [place] [address] ProviderQuincy MD [address] [place] [id number] Social History Tobacco Use Types Packs/Day Years [...] left the operating room in satisfactory condition. /[id number] Gatito Menendez MD [facility]/AQ / [facility] / MODL /[id number] Electronically signed by [place], [facility] Conversion Car Chaser Cerner at 08/23/2022 10:57 AM CDT documented in this encounter Plan of Treatment Not on file documented as of this encounter Visit Diagnoses Not on filedocumented in this encounter Care Teams Business Development Intern Relationship Specialty Start Date End Date Salima Gonzáles, DO [address] [address] PCP - General Family Medicine 02/09/23 documented as of this encounter
--- OUTSIDE RECORDS SUMMARY | 2025-04-07 23:35 | XMS_ITS | Encounter Summary ---
Author Organization [employer] ([place], [place], [place], [place], [place]) Address [address] [place] [address] Care Team Providers Care Self Storage Manager Name Role Phone Eliecer Salima Tate SWANN Primary Care Provider Encounter Details Date Type Department Care Team (Late st Contact Info) Description 10/08/[address] [facility] [place] Family Medicine [address] [place] [address] ProviderQuincy MD [address] [place] [address] Social History Tobacco Use Types Packs/Day Years [...] - Start Time: 10/08/19 09:53:00 (10/08/19 10:02:18) documented in this encounter Plan of Treatment Not on file documented as of this encounter Visit Diagnoses Not on filedocumented in this encounter Care Teams Self Storage Manager Relationship Specialty Start Date End Date Salima Gonzáles, [address] [address] PCP - General Family Medicine 02/09/23 documented as of this encounter
--- OUTSIDE RECORDS SUMMARY | 2025-04-07 23:35 | XMS_ITS | Encounter Summary ---
Author Organization [employer] ([place], [place], [place], [place], [place]) Address [address] [place] [address] Care Team Providers Care Inspector Golf Ball Name Role Phone Anujlizbet Salima Tate SWANN Primary Care Provider [phone] Encounter Details Date Type Department Care Team (Late st Contact Info) Description 10/12/2020 Transcribed Document [facility] [place] Family Medicine [address] [place] [address] ProviderQuincy MD [address] [place], [place] [address] Social History Tobacco Use Types Packs/Day Years [...] On: 10/12/2020 14:42 EDT by TEMI LAMBERT, Power Manager Primary Insurance Authorization Authorization and Policy Numbers : Insurance 1 Health Plan: [facility] MEDICARE REPL Policy Number: [id number] Authorization Number: Insurance Primary Name : [employer] MEDICARE REPL Policy Number: [id number] Authorization Status-Primary : Denied Reference Number-Primary : [id number] Authorized Service Begin Date-Primary : 10/03/2020 EDT Authorization Comments-Primary : Rec fax from [facility] 10/12/20 States admission has been denied. Fax to [facility]ing [facility] Historical Authorization Comments-Primary : Comment 1: Per Madelyn remains pending (PING HOFFMANN RN 10/12/2020 12:06) Comment 2: Faxed dc summary via [employer] (PING HOFFMANN RN 10/11/2020 12:12) Comment 3: Remains pending per Av[employer] (IPNG HOFFMANN RN 10/11/2020 12:11) Comment 4: Email sent to madelyn (PING HOFFMANN RN 10/09/2020 15:11) Comment 5: Clinicals faxed via [employer] for IP approval (DEISY LIRA RN 10/05/2020 14:13) Comment 6: Clinicals submitted via [facility] for IP approval (DEISY LIRA RN 10/04/2020 08:24) TEMI LAMBERT, Power Manager - 10/12/2020 14:42 EDT Electronically signed by Nuzhat Barahona Conversion Industrial Maintenance Repairer Cerner at 08/23/2022 10:49 AM CDT documented in this encounter Plan of Treatment Not on file documented as of this encounter Visit Diagnoses Not on filedocumented in this encounter Care Teams Inspector Golf Ball Relationship Specialty Start Date End Date Salima Gonzáles, 8 [facility] [address] [place] [address] PCP - General Family Medicine 02/09/23 documented as of this encounter
--- OUTSIDE RECORDS SUMMARY | 2025-04-07 23:35 | XMS_ITS | Encounter Summary ---
Author Organization [employer] ([place], [place], [place], [place], [place]) Address [address] [place] [address] Care Team Providers Care Toby Maker Name Role Phone Salima Gonzáles DO Primary Care Provider [phone] Encounter Details Date Type Department Care Team (Late st Contact Info) Description 10/06/2020 Transcribed Document [facility] [place] Family Medicine [facility] [place] [address] ProviderQuincy MD [address] [place] [address] Social History Tobacco Use Types Packs/Day Years [...] On: 10/06/2020 19:03 EDT by Jacque Ledezma [facility] Provider Status : EST Other Established Provider Name : Dr. Sal[facility] [place] [facility] Patient Phone Number : [phone] Patient Insurance Type : Medicare Source of [...] at ED : Other Primary Language : [place] [facility] Comment : Scheduled hosptial f/u appts with PCP & Urology. Advised pt of appt information via telephone. Mailed appt reminders. Faxed H&P to PCP's office. Emailed appt information to vocational case manager. Follow Up Needed : No Jacque Ledezma, H[employer] KILLER - 10/06/2020 19:03 EDT documented in this encounter Plan of Treatment Not on file documented as of this encounter Visit Diagnoses Not on filedocumented in this encounter Care Teams Toby Maker Relationship Specialty Start Date End Date Salima Gonzáles, 8 [facility] [address] [place] [address] PCP - General Family Medicine 02/09/23 documented as of this encounter
--- OUTSIDE RECORDS SUMMARY | 2025-04-07 23:35 | XMS_ITS | Continuity of Care Document ---
Author Organization [facility] Address [address] [place] [address] Care Team Providers Care University President Name Role Phone MRACOS MI Primary Care Provider STEFANI MAYA Orthopedic Shoes Salesperson Assessment No assessment recorded. Plan of Treatment [...] and insertion of intraocular lens completed [facility] 03/05/2025 08:25:45 replacement of bilateral knee joints completed [facility] 03/05/2025 08:26:13 operation on bone injury of femur completed [facility] 03/05/2025 08:26:37 bypass of stomach completed [facility] 03/05/2025 08:27:22 total hysterectomy completed [facility] 03/05/2025 08:27:33 cholecystectomy completed [facility] 03/05/2025 08:27:40 procedure on intestine completed [facility] 03/05/2025 08:27:57 lithotripsy completed Chikis [facility] 03/05/2025 08:28:06 removal of urinary calculus completed Chikis Babb [facility] 03/05/2025 08:28:15 Imaging Results None recorded. Procedure Notes None recorded. Medical Equipment None Reported. Allergies Allergen ID Allergen Name Allergen Category Reaction Reaction Severity Criticality Documentation Date Start Date Code Code System Note Provider Name and Address Organization Details Recorded Time 285341 morphine sulfate medicatio n Not available Not available Not available 03/31/20162014 14139 RxNorm Comme nt: Creat ed By: Holley buckCre ated Date: 2014 10:23 :41 AM; Not Available [facility] 03:55:38 723798 cefdinir medicatio n Not available Not available Not available 10/06/2020 72140 RxNorm Jacqueline Lora [facility] 15:59:52 Medications Name Sig Start Date [...] Hep A, adult 8 completed Not Available [facility] 03/05/2025 11:56:18 Tdap 8 completed Not Available [facility] 03/05/2025 11:56:18 Influenza, split virus, quadrivalent, PF 8 completed Not Available [facility] 03/05/2025 11:56:18 pneumococcal polysaccharide PPV23 9 completed Not Available [facility] 03/05/2025 11:56:18 Hep A, adult 9 completed Not Available [facility] 03/05/2025 11:56:18 Influenza, split virus, quadrivalent, PF 9 completed Not Available [facility] 03/05/2025 11:56:18 Influenza, recombinant, quadrivalent, PF 0 completed Not Available [facility] 03/05/2025 11:56:18 COVID-19, mRNA, LNP-S, PF, 100 mcg/0.5mL dose or 50 mcg/0.25mL dose 1 completed Not Available [facility] 03/05/2025 11:56:18 COVID-19, mRNA, LNP-S, PF, 100 mcg/0.5mL dose or 50 mcg/0.25mL dose 1 completed Not Available [facility] 03/05/2025 11:56:18 COVID-19, mRNA, LNP-S, PF, 100 mcg/0.5mL dose or 50 mcg/0.25mL dose 1 completed Not Available [facility] 03/05/2025 11:56:18 Influenza, split virus, quadrivalent, PF 1 completed Not Available [facility] 03/05/2025 11:56:18 Influenza, MDCK, quadrivalent, PF 2 completed Not Available [facility] 03/05/2025 11:56:18 Pneumococcal conjugate PCV20, polysaccharide BPA386 conjugate, adjuvant, PF 2 completed Not Available [facility] 03/05/2025 11:56:18 COVID-19, mRNA, LNP-S, bivalent, PF, 50 mcg/0.5 mL or 25mcg/0.25 mL dose 2 completed Not Available [facility] 03/05/2025 11:56:18 Influenza, MDCK, quadrivalent, PF 3 completed Not Available [facility] 03/05/2025 11:56:18 Influenza, MDCK, trivalent, PF 4 completed Not Available [facility] 03/05/2025 11:56:18 Past Encounters Encounter ID Performer Location Encounter Start Date Encounter Closed Date Diagnosis/Indication Diagnosis SNOMED-CT Code Diagnosis ICD10 Code Diagnosis IMO Codes Diagnosis Note [id number] STEFANI MAYA MD OPHTHALMO [address] [place] [address] 03/05/2025 08:14:27 03/05/2025 09:53:39 Artificial lens present 079227939 Z96.1 29041 stable, mr today Allergic conjunctivitis of bilateral eyes 4567329497 70037 H10.13 968762 pataday/za ditor prn Nevus of right iris 6808 853996 12275 D31.41 92251522 monitor for changes1 year Health Concerns Section Related Observation LastModified by Organization Detai ls LastModified Time None Recorded Concern Status LastModified by Organization Details LastModified Time None Recorded Payers Encounter Date Sequence Insurance Name Policy Number Policy Giordano Covered Member ID Giordano Member ID Guarantor Name 03/05/2025 1 [place]MEDICARE [facility]) [id number] Neetu Zavala [id number] Neetu Murillo OBGyn Episode No OBEpisode recorded.
--- OUTSIDE RECORDS SUMMARY | 2025-04-07 23:35 | XMS_ITS | Encounter Summary ---
Author Organization [employer] ([place], [place], [place], [place], [place]) Address [address] [place] [address] Care Team Providers Care Allergy And Immunology Specialist Name Role Phone Salima Gonzáles Primary Care Provider [phone] Encounter Details Date Type Department Care Team (Late st Contact Info) Description 10/03/2020 Transcribed Document [facility] Family Medicine [address] [place] [address] ProviderQuincy MD [address] [place], [place] [address] Social History Tobacco Use Types Packs/Day Years [...] - 10/05/2020 13:39 EDT Electronically signed by [place] [facility] Conversion Tanning Drum Operator Cerner at 08/27/2022 3:31 PM CDT documented in this encounter Plan of Treatment Not on file documented as of this encounter Visit Diagnoses Not on filedocumented in this encounter Care Teams Allergy And Immunology Specialist Relationship Specialty Start Date End Date Salima Gonzáles DO [address] [address] PCP - General Family Medicine 02/09/23 documented as of this encounter
--- OUTSIDE RECORDS SUMMARY | 2025-04-07 23:35 | XMS_ITS | Encounter Summary ---
Author Organization [employer] ([place], [place], [place], [place], [place]) Address [address] [place] [address] Care Team Providers Care Proctologist Name Role Phone Salima Gonzáles DO Primary Care Provider [phone] Encounter Details Date Type Department Care Team (Late st Contact Info) Description 10/08/2019 Transcribed Document [facility] [place] [facility] Family Medicine [address] [place] [address] ProviderQuincy MD [address] [place], [place] [address] Social History Tobacco Use Types Packs/Day Years [...] serving. ??? Talk with a diet and youth career specialist (dietitian) if you have questions about [...] Bulgur wheat. Millet. Quinoa. Bran muffins. Popcorn. [place] wafer crackers. Meats and other proteins [place], kidney, and cox beans. Soybeans. Split peas. [...] Cream cheese. Sour cream. Fats and oils [place]. Beverages Soft drinks. Other foods Cakes and [...] 04/23/2006 Document Revised: 02/25/2018 Document Reviewed: 02/25/2018 Prescription Eyewear Interactive Patient Education ? 2019 [employer]. Gastritis, Adult Gastritis is swelling (inflammation) of [...] these instructions at home: Medicines ??? Take ntdg-wra-aatamak and prescription medicines only as told by [...] 10/09/2008 Document Revised: 09/10/2018 Document Reviewed: 09/10/2018 Prescription Eyewear Interactive Patient Education ? 2019 Else[employer] Inc. [...] you start to feel better. ??? Take znjh-waq-ytegexh and prescription medicines only as told by [...] 05/31/2005 Document Revised: 10/24/2018 Document Reviewed: 10/24/2018 Prescription Eyewear Interactive Patient Education ? 2019 Prescription Eyewear Inc. Hemorrhoids Hemorrhoids are swollen veins that [...] times a day. General instructions ??? Take isqr-tyg-oevlzra and prescription medicines only as told by [...] 01/30/2009 Document Revised: 09/12/2018 Document Reviewed: 09/12/2018 Prescription Eyewear Interactive Patient Education ? 2019 Prescription Eyewear Inc. Colonoscopy, Adult, Care After This sheet [...] soft and easy to digest. ??? Take qkmz-uua-klitwgo or prescription medicines only as told by [...] 05/26/2011 Document Revised: 02/21/2018 Document Reviewed: 01/15/2017 Prescription Eyewear Interactive Patient Education ? 2019 Prescription [employer]ewear Inc. Esophagogastroduodenoscopy, Care After Refer to this [...] 04/09/2013 Document Revised: 09/28/2016 Document Reviewed: 03/16/2016 Prescription Eyewear Interactive Patient Education ? 2019 [employer]. documented in this encounter Plan of Treatment Not on file documented as of this encounter Visit Diagnoses Not on filedocumented in this encounter Care Teams Proctologist Relationship Specialty Start Date End Date Salima Gonzáles DO 8 [facility] [address] [place] [address] PCP - General Family Medicine 02/09/23 documented as of this encounter
--- OUTSIDE RECORDS SUMMARY | 2025-04-07 23:35 | XMS_ITS | Encounter Summary ---
Author Organization [employer] ([place], [place], [place], [place], [place]) Address [address] [place] [address] Care Team Providers Care Core Inserter Name Role Phone Salima Mi DO Primary Care Provider [phone] Encounter Details Date Type Department Care Team (Late st Contact Info) Description 10/05/2020 Transcribed Document [facility] Family Medicine [address] [place] [address] ProviderQuincy MD [address] [place], [place] [address] Social History Tobacco Use Types Packs/Day Years [...] on Record Primary Care Provider SALIMA MI [facility] Discharge Diagnosis COPD with asthma 10/05/2020 [...] MD-URO - Within 3 months SALIMA MI DO-[facility] - Within 1 to 2 weeks [...] -- Start: 10/05/20 8:17:00 EDT, 60 gm carbs:5607-2694 josue, GI Soft / Low Residue / [...] with patient, case management, and nursing staff. Electronically signed by Nuzhat Barahona Conversion Reproduction Machine Loader Cerner at 08/23/2022 11:14 AM CDT documented in this encounter Plan of Treatment Not on file documented as of this encounter Visit Diagnoses Not on filedocumented in this encounter Care Teams Core Inserter Relationship Specialty Start Date End Date Salima Mi DO 8 [facility] [address] [place] [address] PCP - General Family Medicine 02/09/23 documented as of this encounter
--- OUTSIDE RECORDS SUMMARY | 2025-04-07 23:35 | XMS_ITS | Encounter Summary ---
Author Organization [employer] ([place], [place], [place], [place], [place]) Address [address] [place] [address] Care Team Providers Care Decision Unit Rn Name Role Phone Anujlizbet Salimajovanni Ybarra DO Primary Care Provider [phone] Encounter Details Date Type Department Care Team (Late st Contact Info) Description 10/05/2020 Transcribed Document [facility] [place] Medicine [address] [place] [address] ProviderQuincy MD [address] [place], [place] [address] Social History Tobacco Use Types Packs/Day Years [...] [facility] Policy Number: [id number] Authorization Number: Insurance Primary Name : [place] MEDICARE REPL Policy Number: [id number] Authorization Status-Primary : Awaiting callback Reference Number-Primary : [id number] Authorized Service Begin Date-Primary : 10/03/2020 EDT Authorization Comments-Primary : Clinicals faxed via [employer] for IP approval Historical Authorization Comments-Primary : Comment 1: Clinicals submitted via [employer] for IP approval (DEISY LIRA RN 10/04/2020 08:24) DEISY LIRA RN - 10/05/2020 14:13 EDT Electronically signed by [facility] Conversion Varsity Baseball Coach Cerner at 08/23/2022 11:14 AM CDT documented in this encounter Plan of Treatment Not on file documented as of this encounter Visit Diagnoses Not on filedocumented in this encounter Care Teams Decision Unit Rn Relationship Specialty Start Date End Date Salima Gonzáles, 8 [facility] [address] [place] [address] PCP - General Family Medicine 02/09/23 documented as of this encounter
--- OUTSIDE RECORDS SUMMARY | 2025-04-07 23:35 | XMS_ITS | Clinical Summary ---
Author Organization [employer] ([place], [place], [place], [place], [place]) Address [address] [place] [address] Care Team Providers Care Rn Neurology Name Role Phone Salima Gonzáles DO Primary Care Provider [phone] Social History Tobacco Use Types Packs/Day Years [...] Pneumococcal 50+ years Completed 01/27/2022, [address] [facility] ACCESS HMO MAP Care Teams Rn Neurology Relationship Specialty Start Date End Date Salima Gonzáles, [address] [place] [address] PCP - General Family Medicine 02/09/23
--- OUTSIDE RECORDS SUMMARY | 2025-04-07 23:35 | XMS_ITS | Referral Summary ---
Author Organization [employer] ([place], [place], [place], [place], [place]) Address [address] [place] [address] Care Team Providers Care Electronic Resources Librarian Name Role Phone Salima Gonzáles DO Primary Care Provider [phone] Social History Tobacco Use Types Packs/Day Years Used Date Smoking Tobacco: Never Assessed Comments Unknown Sex and Gender Information Value Date Recorded Sex Assigned at Not on file Legal Sex Female 2:54 PM CDT Gender Identity Not on file Sexual Orientation Not on file Plan of Treatment Not on file Insurance [facility] ACCESS O MAP Care Teams Electronic Resources Librarian Relationship Specialty Start Date End Date Salima Gonzáles DO [address] [place] [address] PCP - General Family Medicine 02/09/23
--- OUTSIDE RECORDS SUMMARY | 2025-04-07 23:35 | XMS_ITS | Encounter Summary ---
Author Organization [employer] ([place], [place], [place], [place], [place]) Address [address] [place] [address] Care Team Providers Care Advanced Quality Engineer Name Role Phone Salima Gonzáles DO Primary Care Provider [phone] Encounter Details Date Type Department Care Team (Late st Contact Info) Description 10/05/2020 Transcribed Document [facility] [place] [facility] [place] [address] ProviderQuincy MD [address] [place] [id number] Social History Tobacco Use Types Packs/Day Years [...] on filedocumented in this encounter Care Teams Advanced Quality Engineer Relationship Specialty Start Date End Date Salima Gonzáles, [address] [address] PCP - General Family Medicine 02/09/23 documented as of this encounter
--- OUTSIDE RECORDS SUMMARY | 2025-04-07 23:35 | XMS_ITS | Encounter Summary ---
Author Organization [employer] ([place], [place], [place], [place], [place]) Address [address] [place] [address] Care Team Providers Care Food Service Representative Name Role Phone Salima Gonzáles Primary Care Provider [phone] Encounter Details Date Type Department Care Team (Late st Contact Info) Description 10/03/2020 Transcribed Document [facility] [place] [address] [place] [address] ProviderQuincy MD [address] [place], [place] [address] Social History Tobacco Use Types Packs/Day Years [...] filedocumented in this encounter Care Teams Food Service Representative Relationship Specialty Start Date End Date Salima Gonzáles, [address] [address] PCP - General Family Medicine 02/09/23 documented as of this encounter
--- OUTSIDE RECORDS SUMMARY | 2025-04-07 23:35 | XMS_ITS | Encounter Summary ---
Author Organization [employer] ([place], [place], [place], [place], [place]) Address [address] [place] [address] Care Team Providers Care Financial Administration Officer Name Role Phone Salima Gonzáles DO Primary Care Provider [phone] Encounter Details Date Type Department Care Team (Late st Contact Info) Description 10/05/2020 Transcribed Document [facility] Family Medicine [address] [place] [address] ProviderQuincy MD [address] [place], [place] [id number] Social History Tobacco Use Types Packs/Day Years [...] on filedocumented in this encounter Care Teams Financial Administration Officer Relationship Specialty Start Date End Date Salima Gonzáles, DO [address] [place] [address] PCP - General Family Medicine 02/09/23 documented as of this encounter
--- OUTSIDE RECORDS SUMMARY | 2025-04-07 23:35 | XMS_ITS | Encounter Summary ---
Author Organization [employer] ([place], [place], [place], [place], [place]) Address [address] [place] [address] Care Team Providers Care Hse Advisor Name Role Phone Salima Mi DO Primary Care Provider [phone] Encounter Details Date Type Department Care Team (Late st Contact Info) Description 10/03/2020 Transcribed Document [facility] [place] Family [place] [address] ProviderQuincy MD [address] [place] [address] Social History Tobacco Use Types Packs/Day Years [...] : 1965 Primary Care Provider SALIMA [facility] DO-[facility] History of Present Illness Ms. Aponte is a 54-year-old female with pse-xazmaex-tmtprgzkx diabetes, asthma and COPD with continued tobacco use, history of kidney stones, obesity. She was transferred to [facility] from [facility] on 10/03 for hydronephrosis and obstructing [...] needed Consult urology, n.p.o. after midnight Tamsulosin #Bwe-bodgdsn-ynouzozxc diabetes Hold home medications Cover with SSI [...] Code, Continuous Order Electronically signed by Interface, [facility] Conversion Hogshead Head Matcher Cerner at 08/23/2022 11:11 AM CDT documented in this encounter Plan of Treatment Not on file documented as of this encounter Visit Diagnoses Not on filedocumented in this encounter Care Teams Hse Advisor Relationship Specialty Start Date End Date Salima Mi, 8 [facility] [address] [place] [address] PCP - General Family Medicine 02/09/23 documented as of this encounter
--- OUTSIDE RECORDS SUMMARY | 2025-04-07 23:35 | XMS_ITS | Encounter Summary ---
Author Organization [employer] ([place], [place], [place], [place], [place]) Address [address] [place] [address] Care Team Providers Care Power Builder Developer Name Role Phone Salima Gonzáles Tate SWANN Primary Care Provider Encounter Details Date Type Department Care Team (Late st Contact Info) Description 10/05/2020 Transcribed Document [facility] [place] [address] [place] [address] ProviderQuincy MD [address] [place], [place] [address] Social History Tobacco Use Types Packs/Day Years [...] on filedocumented in this encounter Care Teams Power Builder Developer Relationship Specialty Start Date End Date Salima Gonzáles DO 8 [facility] [address] [place] [address] PCP - General Family Medicine 02/09/23 documented as of this encounter
--- OUTSIDE RECORDS SUMMARY | 2025-04-07 23:35 | XMS_ITS | Clinical Summary ---
Author Organization [facility] [place] [place] [address] Care Team Providers Care Digester Name Role Phone Unavailable Primary Care Provider [...]
--- OUTSIDE RECORDS SUMMARY | 2025-04-07 23:35 | XMS_ITS | Encounter Summary ---
Author Organization [employer] ([place], [place], [place], [place], [place]) Address [address] [place] [address] Care Team Providers Care Bending Frame Operator Name Role Phone Salima Gonzáles DO Primary Care Provider [phone] Encounter Details Date Type Department Care Team (Late st Contact Info) Description 10/06/2020 Transcribed Document [facility] [place] Family Medicine [address] [place] [address] ProviderQuincy MD [address] [place], [place] [address] Social History Tobacco Use Types Packs/Day Years [...] 11:00 EDT Contact Phone Number #1 : [phone] Follow-up Appointments Made #2 : [facility] Follow-up Appointment Date #2 : 01/06/2021 13:30 EDT Contact Phone Number #2 : [phone] Jacque Ledezma, MODULAR [employer] MEMBER - 10/06/2020 11:44 EDT Electronically signed by [facility], [facility] Conversion Student Accounts Coordinator Cerner at 08/23/2022 10:59 AM CDT documented in this encounter Plan of Treatment Not on file documented as of this encounter Visit Diagnoses Not on filedocumented in this encounter Care Teams Bending Frame Operator Relationship Specialty Start Date End Date Salima Gonzáles, [address] [address] PCP - General Family Medicine 02/09/23 documented as of this encounter
--- OUTSIDE RECORDS SUMMARY | 2025-04-07 23:35 | XMS_ITS | Encounter Summary ---
Author Organization [employer] ([place], [place], [place], [place], [place]) Address [address] [place] [address] Care Team Providers Care Apartment Maintenance Supervisor Name Role Phone Salima Gonzáles Tate SWANN Primary Care Provider [phone] Encounter Details Date Type Department Care Team (Late st Contact Info) Description 10/03/2020 Transcribed Document [facility] [place] [address] [place] [address] ProviderQuincy MD [address] [place], [place] [address] Social History Tobacco Use Types Packs/Day Years [...] #2 Relationship : father Primary Language : Wallisian Communication Barrier : None Coin Purse Assembler Needed : No Hoa Coleman RN - [...] Level : 46 or > High Risk [place] Fall Interventions : Adequate lighting, Assistive devices [...] Source : Stated Height Entry Format : [place] Height, Feet : 5 ft(Converted to: 152 cm, 60 Inch) Height, Inches : 1 Inch(Converted to: 0 ft 1 Inch, 2.54 cm) Clinical Height : 154.94 cm Weight Source : Bed scale Weight Entry Format : [place] Clinical Dosing Weight : 118.18 kg Weight, Pounds : 260 lb Body Surface Area (BSA) : 2.11 m2 Body Mass Index : 49.2 kg/m2 (>HHI) Anselmo Body Weight : 47 kg Hoa Coleman [...] Hoa Coleman RN - 10/04/2020 13:17 EDT [place] Suicide Severity Rating Scale (C-SSRS) CSSRS Past [...] EDT Electronically signed by Nuzhat Barahona Conversion Branch Operations Specialist Cerner at 08/23/2022 11:07 AM CDT documented in this encounter Plan of Treatment Not on file documented as of this encounter Visit Diagnoses Not on filedocumented in this encounter Care Teams Apartment Maintenance Supervisor Relationship Specialty Start Date End Date Salima Gonzáles DO [address] [address] PCP - General Family Medicine 02/09/23 documented as of this encounter
--- OUTSIDE RECORDS SUMMARY | 2025-04-07 23:35 | XMS_ITS | Encounter Summary ---
Author Organization [employer] ([place], [place], [place], [place], [place]) Address [address] [place] [address] Care Team Providers Care Audio/Visual Manager Name Role Phone Salima Gonzáles Primary Care Provider [phone] Encounter Details Date Type Department Care Team (Late st Contact Info) Description 10/08/2019 Transcribed Document [facility] Family Medicine [address] [place] [address] ProviderQuincy MD [address] [place], [place] [id number] Social History Tobacco Use Types Packs/Day Years [...] Kate MD - 10/08/2019 9:30 AM CDT [facility] Cristiana PreOp Summary Primary Physician: WARREN MANRIQUE MD Finalized Date/Time: 10/08/19 09:35:21 Pt. Name: AMBIKA PIERRE/Sex: 1965 Female Med Rec #: [id number] Physician: WARREN MANRIQUE MD Financial #: [id number] Pt. Type: O Room/Bed: / Admit/Disch: 10/08/19 08:47:00 - Institution: [facility] Cristiana PreOp Case Times Entry 1 In Preop 10/08/19 09:08:00 Ready for Holding n/a Room Patient Ready for n/a Surgery Patient Out of Preop 10/08/19 09:33:00 Patient Out of n/a Holding Room Last Modified By: Whitney Huynh Rn 10/08/19 09:35:13 [facility] Endo PreOp Case Times Audit 10/08/19 09:35:13 Shuffle Board Operator: STUART Modifier: HEATHERLAWRENCE <+> 1 Patient Out of Preop Finalized By: Whitney Huynh Rn Document Signatures Signed By: Whitney Huynh Rn 10/08/19 09:35 Electronically signed by [facility] Conversion Rfid Engineer Cerner at 08/23/2022 10:54 AM CDT documented in this encounter Plan of Treatment Not on file documented as of this encounter Visit Diagnoses Not on filedocumented in this encounter Care Teams Audio/Visual Manager Relationship Specialty Start Date End Date Salima Gonzáles, [address] [place] [address] PCP - General Family Medicine 02/09/23 documented as of this encounter
--- OUTSIDE RECORDS SUMMARY | 2025-04-07 23:35 | XMS_ITS | Encounter Summary ---
Author Organization [employer] ([place], [place], [place], [place], [place]) Address [address] [place] [address] Care Team Providers Care Casino Floor Runner Name Role Phone Anujlizbet Salima Tate SWANN Primary Care Provider [phone] Encounter Details Date Type Department Care Team (Late st Contact Info) Description 10/23/2020 Transcribed Document [facility] [place] [address] [place] [address] ProviderQuincy MD [address] [place], [place] [address] Social History Tobacco Use Types Packs/Day Years [...] Policy Numbers : Insurance 1 Health Plan: REPLACED BY [facility] MEDIC[facility] REPL Policy Number: [id number] Authorization Number: Insurance Primary Name : [employer] MEDICARE REPL Policy Number: [id number] Authorization Status-Primary : Denied Auth/Referral Contact Name-Primary : DC+ Reference Number-Primary : [id number] Authorized Service Begin Date-Primary : 10/03/2020 EDT Authorization Comments-Primary : Per Mary ok to bill under part b. emailed to billing. Historical Authorization Comments-Primary : Comment 1: Discharge date and summary faxed. (Katia Pratt, Director Of Mechanical Engineering 10/13/2020 15:02) Comment 2: Email to David/Mary/MOSHE (JUSTEN HARTLEY, Rn-Utilization Review 10/13/2020 10:20) Comment 3: Rec fax from [facility] 10/12/20 States admission has been denied. Fax to Jacque Tabor (TEMI LAMBERT, Brim Stitcher 10/12/2020 14:42) Comment 4: Per Jinny remains pending (JACQUE HOFFMANN RN 10/12/2020 12:06) Comment 5: Faxed dc summary via [employer] (JACQUE HOFFMANN RN 10/11/2020 12:12) Comment 6: Remains pending per [employer] (JACQUE HOFFMANN RN 10/11/2020 12:11) Comment 7: Email sent to jinny (JACQUE HOFFMANN RN 10/09/2020 15:11) Comment 8: Clinicals faxed via [employer] for IP approval (DEISY LIRA RN 10/05/2020 14:13) Comment 9: Clinicals submitted via [employer] for IP approval (DEISY LIRA RN 10/04/2020 08:24) JACQUE HOFFMANN RN - 10/23/2020 12:34 EDT documented in this encounter Plan of Treatment Not on file documented as of this encounter Visit Diagnoses Not on filedocumented in this encounter Care Teams Casino Floor Runner Relationship Specialty Start Date End Date Salima Gonzáles, DO [address] [place] [address] PCP - General Family Medicine 02/09/23 documented as of this encounter
--- OUTSIDE RECORDS SUMMARY | 2025-04-07 23:35 | XMS_ITS | Encounter Summary ---
Author Organization [employer] ([place], [place], [place], [place], [place]) Address [address] [place] [address] Care Team Providers Care Primary Care Nurse Name Role Phone Eliecer Salimajovanni Ybarra DO Primary Care Provider [phone] Encounter Details Date Type Department Care Team (Late st Contact Info) Description 10/05/[address] [facility] [place] Family Medicine [address] [place] [address] ProviderQuincy MD [address] [place], [place] [id number] Social History Tobacco Use Types Packs/Day Years [...] these instructions at home: Medicines ??? Take geqr-flu-nzvegub and prescription medicines only as told by [...] provider. Document Revised: 09/09/2019 Document Reviewed: 09/09/2019 [employer] Patient Education ? 2019 [employer] Ureteroscopy Ureteroscopy is a procedure to [...] including vitamins, herbs, eye drops, creams, and xutm-emb-ujhxjaz medicines. ??? Any problems you or family [...] provider. Document Revised: 04/05/2018 Document Reviewed: 02/02/2017 [employer] Patient Education ? 2020 [employer]. Dietary Guidelines to Help Prevent Kidney Stones [...] Rhubarb. ? Beets. ? Potato chips and south sudanese fries. ? Nuts. ??? If you regularly take a diuretic medicine, make sure to eat at least 1?2 fruits or vegetables high in potassium each day. These include: ? Avocado. ? Banana. ? Mchenry, prune, carrot, or tomato juice. ? Baked [...] Casseroles. Pizza. Lasagna. Frozen meals. Potato chips. Estonian fries. Summary ??? You can reduce your [...] provider. Document Revised: 08/13/2019 Document Reviewed: 04/03/2017 [employer] Patient Education ? 2019 [employer] documented in this encounter Plan of Treatment Not on file documented as of this encounter Visit Diagnoses Not on filedocumented in this encounter Care Teams Primary Care Nurse Relationship Specialty Start Date End Date Salima Gonzáles, [address] [address] PCP - General Family Medicine 02/09/23 documented as of this encounter
--- NOTE | 2025-04-07 23:36 | ECG_ITS ---
APPROVED REPORT Exam: Resting ECG HR:79 bpm ECG Measurements Heart Rate 79 AXES MD 143 P 51 QRSd 89 QRS 34 QT 321 T 70 QTc 356 Conclusion SINUS RHYTHM NONSPECIFIC T-WAVE ABNORMALITY BORDERLINE ECG UNCONFIRMED REPORT Electronically signed by : LANCE CAMARGO, 04/09/2025 04:59:22
[2025-04-07 23:39] VITALS: BP 134/78; PULSE 74; RESP 18; TEMP 36.8; O2SAT 98
[2025-04-07 23:41] VITALS: PULSE 81
--- NOTE | 2025-04-07 23:46 | XR_ITS ---
PROCEDURE INFORMATION: Exam: XR Chest Exam date and time: 04/07/2025 11:52 PM Age: 59 years old Clinical indication: Pain; Chest pressure; Additional info: Chest pain TECHNIQUE: Imaging protocol: Radiologic exam of the chest. Views: 1 view. Total images: 1 COMPARISON: CR XR CHEST PORTABLE 11/26/2024 5:48 AM FINDINGS: Lungs: Unremarkable. No consolidation. No pulmonary vascular congestion or edema. Pleural spaces: Unremarkable. No pleural effusion. No pneumothorax. Heart/Mediastinum: Unremarkable. No cardiomegaly. No mediastinal widening or hilar enlargement. Bones/joints: Unremarkable. IMPRESSION: No radiographically acute findings.
[2025-04-07 23:52] LABS: Hematocrit 45.8 % (37.0-47.0); Hemoglobin 15.2 g/dL (12.2-16.2); Immature Granulocytes % 0.3 %; Mean Corpuscular HGB Conc 33.2 g/dL (31.8-35.4); Mean Corpuscular Hemoglobin 29.2 pg (27.0-31.2); Mean Corpuscular Volume 87.9 fl (81-99); Nucleated Red Blood Cells % 0 %; Platelet Count 317 K/mm3 (142-424); Red Blood Count 5.21 M/mm3 (4.20-5.40); Red Cell Distribution Width-SD 42.6 fL; White Blood Count 7.7 K/mm3 (4.8-10.8)
[2025-04-07] MEDS: ASPIRIN 81MG CHEWABLE TABLET 324 MG PO (23:56)
[2025-04-07] MEDS: ACETAMINOPHEN 500MG TAB 1000 MG PO (23:56)
[2025-04-07] MEDS: ONDANSETRON 4MG/2ML VIAL 4 MG IV (23:57)
[2025-04-07] MEDS: BELLADONNA ALKALOIDS 60 ML ML PO (23:57)
[2025-04-07 23:59] LABS: Alanine Aminotransferase 34 U/L (12-78); Albumin Level 4.7 g/dl (3.5-5.0); Albumin/Globulin Ratio 1.3 (1.1-1.8); Alkaline Phosphatase 95 U/L (38-126); Anion Gap 12.5 mEq/L (5-15); Aspartate Amino Transferase 32 U/L (14-36); Bilirubin,Total 1.2 mg/dl (0.2-1.3); Blood Urea Nitrogen 8 mg/dl (7-17); Calcium 9.8 mg/dl (8.4-10.2); Carbon Dioxide 25 mmol/L (22.0-30.0); Chloride 101 mmol/L (98-107); Creatinine Clearance Estimated 45 mL/min (50-200); Creatinine,Serum 1.00 mg/dl (0.52-1.04); Estimated Glomerular Filt Rate 57 ml/min (>60); GFR (African American) 68 ML/MIN (>60); Globulin 3.5 g/dL (1.3-3.2); Glucose 82 mg/dl (74-100); Lipase 161 U/L (23-300); Potassium 3.5 mmoL/L (3.5-5.1); Sodium 135 mmol/L (136-145); Total Protein,Serum 8.2 g/dl (6.3-8.2)
[2025-04-08 00:03] LABS: D-Dimer 0.40 ug/mL (0.0-0.5)
[2025-04-08 00:16] LABS: Troponin I < 0.01 ng/ml (0.00-0.034)
[2025-04-08 03:34] LABS: Troponin I < 0.01 ng/ml (0.00-0.034)
[2025-04-08 03:36] VITALS: BP 134/78; PULSE 71; RESP 18; TEMP 36.6; O2SAT 98
== END 2025-04-08 03:42 | disposition home or self-care (01) ==
PROVIDERS: Emergency Provider Emergency Medicine; PCP Family Medicine
DX: R07.89 Other chest pain (principal); K21.9 Gastro-esophageal reflux disease without esophagitis; R11.2 Nausea with vomiting, unspecified; F17.210 Nicotine dependence, cigarettes, uncomplicated; E11.9 Type 2 diabetes mellitus without complications; I10 Essential (primary) hypertension; E78.5 Hyperlipidemia, unspecified; Z79.84 Long term (current) use of oral hypoglycemic drugs
CPT/HCPCS: 71045; 80053; 83690; 84484; 85025; 85378; 93005; 96374; 99285; J2405

== ENCOUNTER 2025-05-05 17:22 | Emergency (ER) | payer MEDICARE, SELFPAY ==
[2025-05-05 17:23] VITALS: BP 150/90; PULSE 65; RESP 15; TEMP 36.9; O2SAT 100; BMI 40.6
--- OUTSIDE RECORDS SUMMARY | 2025-05-05 17:47 | XMS_ITS | Encounter Summary ---
Author Organization [employer] ([place], [place], [place], [place], [place]) Address [address] [place] [address] Care Team Providers Care Division Controller Name Role Phone Salima Gonzáles DO Primary Care Provider [phone] Encounter Details Date Type Department Care Team (Late st Contact Info) Description 10/05/2020 Transcribed Document [facility] [place] Family Medicine [address] [place] [address] ProviderQuincy MD [address] [place], [place] [id number] Social History Tobacco Use Types Packs/Day Years [...] 10/05/2020 5:29 EDT Electronically signed by [facility] Conversion Sourcing Associate Cerner at 08/23/2022 10:58 AM CDT documented in this encounter Plan of Treatment Not on file documented as of this encounter Visit Diagnoses Not on filedocumented in this encounter Care Teams Division Controller Relationship Specialty Start Date End Date Salima Gonzáles DO [address] [place] [address] PCP - General Family Medicine 02/09/23 documented as of this encounter
--- OUTSIDE RECORDS SUMMARY | 2025-05-05 17:47 | XMS_ITS | Encounter Summary ---
Author Organization [employer] ([place], [place], [place], [place], [place]) Address [address] [place] [address] Care Team Providers Care Ranch Rider Name Role Phone Salima Gonzáles Tate SWANN Primary Care Provider [phone] Encounter Details Date Type Department Care Team (Late st Contact Info) Description 10/05/2020 Transcribed Document [facility] [place] [facility] [place] [address] ProviderQuincy MD [address] [place], [place] [phone] Social History Tobacco Use Types Packs/Day Years [...] 10/05/2020 17:05 EDT Electronically signed by [place] [facility] Conversion Plaster Mold Maker Cerner at 08/23/2022 10:49 AM CDT documented in this encounter Plan of Treatment Not on file documented as of this encounter Visit Diagnoses Not on filedocumented in this encounter Care Teams Ranch Rider Relationship Specialty Start Date End Date Salima Gonzáles, [address] [address] PCP - General Family Medicine 02/09/23 documented as of this encounter
--- OUTSIDE RECORDS SUMMARY | 2025-05-05 17:48 | XMS_ITS | Continuity of Care Document ---
Author Organization [facility] [place] [address] Care Team Providers Care Manager Paid Name Role Phone Salima Gonzáles MD Primary Care Provider [phone] Encounters Date Type Department Care Team Description 04/09/2024 6:26 PM EST - 04/11/2024 1:08 PM EST Hospital Encounter [facility] 7W Med/Surg [address] [place] [phone] Carlos Cannon MD Abreu, Cristy, MD Tammo, Sami, MD Holt, Tracy R, FACILITY ATTENDANT Intractable pain (Primary Dx); Abdominal pain, unspecified abdominal location; Epigastric pain Discharge Disposition: Home or Self Care 04/10/2024 1:24 PM EST Anesthesia Event [facility] Endoscopy [address] [place] [address] Clementina Mcadams CRNA Robbins, Lindsey, APRN 04/10/2024 12:30 PM EST - 04/10/2024 1:00 PM EST Surgery [facility] Endoscopy [address] [place] [phone] Salima Perla, EGD WITH BIOPSY 02/12/2024 10:18 AM EDT - 02/12/2024 11:59 PM EDT Hospital Encounter AUD Radiology [address] [place] [address] Patrick Cole MD Periumbilical pain Discharge Disposition: Home or Self Care 02/12/2024 12:10 PM EDT Follow-Up [facility] [address] [place] [address] Patrick Cole MD Bariatric surgery status (Primary Dx); Class 3 severe obesity due to excess calories with serious comorbidity and body mass index (BMI) of 45.0 to 49.9 in adult 02/05/2024 2:20 PM EDT Follow-Up [facility] [address] [place] [address] Patrick Cole MD Bariatric surgery status (Primary Dx); Class 3 severe obesity due to excess calories with serious comorbidity and body mass index (BMI) of 45.0 to 49.9 in adult; Primary hypertension; Periumbilical pain 11/02/2021 7:30 PM EDT - 11/07/2021 3:04 PM EDT Hospital Encounter [facility] 7W Med/Surg [address] [place] [phone] Forrest Garrison MD Small bowel obstruction due to postoperative adhesions (Primary Dx); Morbid obesity with BMI of 45.0-49.9, adult; Diabetes mellitus type 2 in obese; Hypothyroidism, unspecified type; Primary hypertension; SBO (small bowel obstruction) Discharge Disposition: Home or Self Care 11/04/2021 11:38 AM EDT Anesthesia Event [facility] Periop Services [address] [place] [phone] Jeremy Briscoe MD Carpenter, Amanda, CRNA 11/04/2021 11:25 AM EDT - 11/04/2021 1:35 PM EDT Surgery [facility] Periop Services [address] [place] [phone] Patrick Cole MD LAPAROSCOPIC ADHESIOLYSIS Allergies [...] Mother Social History Smoking Status as of 05/05/2025 Tobacco Use Types Packs/Day Years Used Date [...] on file Medical Devices Implanted Type Area Customer Support Analyst Device Identifier Shelf Expiration Date Model / Serial / Lot Sealant [id number] - [id number] Implanted:Qty : 1 on 11/04/2021 by Patrick Cole MD at [facility] OTHER - IMPLANTS - OTHER N/A: Abdomen RODRIGUEZ 01/31/2023 [id number] / / [id number] Procedures Procedure Name Priority Date/Time Associated Diagnosis [...] - 139 mg/dL 04/11/2024 11:11 AM EST [facility] Blood VENOUS BLOOD SPECIMEN / Unknown 04/11/2024 11:06 AM EST 04/11/2024 11:11 AM EST us Iris Staley FACILITY ATTENDANT LAB BLOOD ORDERABLES Final Res ult [facility] [address] [place] [address] * CBC w/Diff (04/11/2024 4:39 AM EST) Only the most recent of7 resultswithin the time period is included. Pathologist [facility] White Blood Cells 5.92 4.50 - 11.00 10*3/uL LAB DEVICE: SYDeluuxEX XN-10 04/11/2024 4:51 AM [facility] Red Blood Cells 4.30 4.00 - 5.20 10*6/uL LAB DEVICE: SYSMEX XN-10 04/11/2024 4:51 AM [facility] Hemoglobin 12.6 12.0 - 16.0 g/dL LAB DEVICE: SYSMEX XN-10 04/11/2024 4:51 AM [facility] Hematocrit 39.3 36.0 - 46.0 % LAB DEVICE: SYSMEX XN-10 04/11/2024 4:51 AM [facility] Mean Corpuscular Volume 91.4 80.0 - 100.0 fL LAB DEVICE: SYSMEX XN-10 04/11/2024 4:51 AM [facility] Mean Corpuscular Hemoglobin 29.3 26.0 - 34.0 pg LAB DEVICE: SYSMEX XN-10 04/11/2024 4:51 AM [facility] Mean Corpuscular Hemoglobin Concentration 32.1 31.0 - 37.0 g/dL LAB DEVICE: SYSMEX XN-10 04/11/2024 4:51 AM [facility] % Red Blood Cell Distribution Width 13.3 12.0 - 16.8 % LAB DEVICE: SYSMEX XN-10 04/11/2024 4:51 AM [facility] Platelet Count 275 140 - 440 10*3/uL LAB DEVICE: SYSMEX XN-10 04/11/2024 4:51 AM [facility] Mean Platelet Volume 9.7 8.4 - 12.4 fL LAB DEVICE: SYSMEX XN-10 04/11/2024 4:51 AM [facility] % Neutrophils 49.7 45.0 - 80.0 % LAB DEVICE: SYSMEX XN-10 04/11/2024 4:51 AM [facility] % Lymphocytes 39.4 15.0 - 50.0 % LAB DEVICE: SYSMEX XN-10 04/11/2024 4:51 AM [facility] % Monocytes 8.1 0.0 - 15.0 % LAB DEVICE: SYSMEX XN-10 04/11/2024 4:51 AM [facility] % Eosinophils 1.5 0.0 - 7.0 % LAB DEVICE: SYSMEX XN-10 04/11/2024 4:51 AM [facility] % Basophils 1.0 0.0 - 2.0 % LAB DEVICE: SYSMEX XN-10 04/11/2024 4:51 AM [facility] % Immature Granulocytes 0.3 0.0 - 1.0 % LAB DEVICE: SYSMEX XN-10 04/11/2024 4:51 AM [facility] % Nucleated RBCs 0 <=0 /100 WBCs LAB DEVICE: SYSMEX XN-10 04/11/2024 4:51 AM [facility] Absolute Neutrophil Count 2.94 2.00 - 8.80 10*3/uL LAB DEVICE: SYSMEX XN-10 04/11/2024 4:51 AM [facility] Absolute Lymphocytes 2.33 0.70 - 5.50 10*3/uL LAB DEVICE: SYSMEX XN-10 04/11/2024 4:51 AM [facility] Absolute Monocytes 0.48 0.00 - 1.70 10*3/uL LAB DEVICE: SYSMEX XN-10 04/11/2024 4:51 AM [facility] Absolute Eosinophils 0.09 0.00 - 0.80 10*3/uL LAB DEVICE: SYSMEX XN-10 04/11/2024 4:51 AM [facility] Absolute Basophils 0.06 0.00 - 0.20 10*3/uL LAB DEVICE: SYSMEX XN-10 04/11/2024 4:51 AM [facility] Absolute Immature Granulocytes 0.02 0.00 - 0.10 10*3/uL LAB DEVICE: SYSMEX XN-10 04/11/2024 4:51 AM [facility] Blood VENOUS BLOOD SPECIMEN / Unknown Venipuncture / Unknown 04/11/2024 4:39 AM EST 04/11/2024 4:45 AM EST Kelly Kelly MD LAB BLOOD ORDERABLES Final Resul t Performing Organization Address [facility] Co de Phone Number [place] [phone] * Magnesium (04/11/2024 4:39 AM EST) Only the most recent of3 resultswithin the time period is included. Magnesium 2.0 1.6 - 2.6 mg/dL 04/11/2024 5:11 AM [facility] Blood VENOUS BLOOD SPECIMEN / Unknown Venipuncture / Unknown 04/11/2024 4:39 AM EST 04/11/2024 4:45 AM EST Kelly Kelly MD LAB BLOOD ORDERABLES Final Resul t Performing Organization Address [facility] [place] [address] * (ABNORMAL) Comprehensive Metabolic Panel (CMP) (04/11/2024 4:39 AM EST) Only the most recent of5 resultswithin the time period is included. Sodium 142 136 - 145 mmol/L 04/11/2024 5:11 AM [facility] Comment:Excess protein and/o r lipids can falsely decrease sodium levels (pseudo hyponatremia). Potassium 4.1 3.5 - 5.1 mmol/L 04/11/2024 5:11 AM [facility] Comment:Falsely elevated pot assium can occur in patients with high WBC or platelet counts. Chloride 109(H) 98 - 107 mmol/L 04/11/2024 5:11 AM [facility] Comment:Falsely elevated chl oride levels can be seen in patients taking bromide containing medications. Carbon Dioxide 24 22 - 29 mmol/L 04/11/2024 5:11 AM [facility] Anion Gap 9 5 - 13 mmol/L 04/11/2024 5:11 AM [facility] Comment:Calculation: Na - (C l + CO2) Glucose, Random 76 71 - 99 mg/dL 04/11/2024 5:11 AM [facility] Blood Urea Nitrogen (BUN) 10 10 - 20 mg/dL 04/11/2024 5:11 AM [facility] Creatinine, Blood 0.93 0.55 - 1.02 mg/dL 04/11/2024 5:11 AM [facility] BUN/Creatinine Ratio 10.8 RATIO 04/11/2024 5:11 AM [facility] Estimated GFR (Cr) 71 >60 mL/min/1.7 3m2 04/11/2024 5:11 AM [facility] Comment:eGFR calculated base d on IDMS traceable, enzymatic creatinine method using the CKD-EPI 2020 equation. Total Protein 6.8 6.4 - 8.2 g/dL 04/11/2024 5:11 AM [facility] Albumin 3.7 3.5 - 5.2 g/dL 04/11/2024 5:11 AM [facility] Globulin 3.1 1.5 - 4.5 g/dL 04/11/2024 5:11 AM [facility] Albumin/Globulin Ratio 1.2 1.1 - 2.5 RATIO 04/11/2024 5:11 AM [facility] Calcium 9.1 8.4 - 10.2 mg/dL 04/11/2024 5:11 AM [facility] Total Bilirubin 0.9 0.2 - 1.2 mg/dL 04/11/2024 5:11 AM [facility] AST/SGOT 20 5 - 34 U/L 04/11/2024 5:11 AM [facility] ALT/SGPT 20 0 - 55 U/L 04/11/2024 5:11 AM [facility] Alkaline Phosphatase 72 40 - 150 U/L 04/11/2024 5:11 AM EST [facility] Blood VENOUS BLOOD SPECIMEN / Unknown Venipuncture / Unknown 04/11/2024 4:39 AM EST 04/11/2024 4:45 AM EST us Kelly Kelly MD LAB BLOOD ORDERABLES Final Resul t [facility] [address] [place] [id number] * CT High Resolution Chest WO Contrast (04/10/2024 4:32 PM EST) [facility] RAD WORKSTATION ID [id number] NV POWERSCRIBE Anatomical Region Laterality Modality Chest Computed Tomogra phy 04/10/2024 4:41 PM EST Narrative 04/10/2024 4:56 PM EST REVIEWING YOUR TEST RESULTS IN [facility] IS NOT A SUBSTITUTE FOR DISCUSSING THOSE RESULTS WITH YOUR HEALTH CARE PROVIDER. PLEASE CONTACT YOUR PROVIDER VIA [facility] TO DISCUSS ANY QUESTIONS OR CONCERNS YOU MAY HAVE REGARDING THESE TEST RESULTS. RADIOLOGY REPORT FACILITY: [facility] UNIT/AGE/GENDER: Saul IN AGE:58 Y SEX:F PATIENT NAME/: AMBIKA PRATT TURNER 1965 UNIT NUMBER: [id number] ACCESSION NUMBER: [id number] EXAMINATION: CT of the chest without contrast [...] - 04/10/2024 REVIEWING YOUR TEST RESULTS IN [facility] IS NOT A SUBSTITUTE FORDISCUSSING THOSE RESULTS WITH YOUR HEALTH CARE PROVIDER. PLEASE CONTACT YOUR PROVIDER VIA [facility] TO DISCUSS ANY QUESTIONS ORCONCERNS YOU MAY HAVE REGARDING THESE TEST RESULTS. RADIOLOGY REPORT FACILITY: [facility] UNIT/AGE/GENDER: Saul IN AGE:58 Y SEX:F PATIENT NAME/: AMBIKA PRATT TURNER 1965 UNIT NUMBER: [id number] ACCESSION NUMBER: [id number] EXAMINATION: CT of the chest without contrast [...] 04/10/2024 1655 [id number] 1641 Joselyn Sanchez MD [facility] [place] ORDERABLES Final Resu lt * Case request operating room: EGD (04/10/2024 1:40 PM EST) Narrative Procedure Note Salima Perla, DO - 04/10/2024 1:40 PM EST Patient Name: Ambika Pratt Procedure Date No Time: 04/10/2024 Date of : 1965 Gender: Female Attending MD: SALIMA PERLA MD, [id number] Procedure: Upper GI endoscopy Pre-op Diagnosis: Epigastric [...] The esophagus was normal. 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 Thegastrojejunal anastomosis was characterized [...] Initiated On: 04/10/2024 12:37 PM Chikis Cole FACILITY ATTENDANT GENERAL SURGICAL ORDERABLES Final Result * Surgical Specimen: Gastric (04/10/2024 1:32 PM EST) Case Report Surgical Pathology Report Case: [id number] Authorizing Provider: Salima Perla DO Collected: 04/10/2024 1332 Ordering Location: [facility] Endoscopy Received: 04/10/2024 1501 Pathologist: David Oliver [...] time is between 6-72 hours. SEUN Li ([facility]), 04/10/2024 /am1 04/11/2024 11:29 AM EST [facility] Sign Out Location [facility] [address] [place] [address] 04/11/2024 11:29 AM EST [facility] Case Flag Normal Normal 04/11/2024 11:29 AM EST [facility] Tissue SPERMATOZOA SPECIMEN / Unknown 04/10/2024 1:32 PM EST 04/10/2024 3:01 PM EST Comment:Pre-op diagnosis: Epigastric pain [R10.13] us Salima Perla DO PATHOLOGY/CYTOLOGY ORDERA BLES Final Result [facility] [address] [facility] [address] [place] [address] * XR Chest 1 Vw (04/10/2024 8:08 AM EST) [facility] RAD WORKSTATION ID [id number] NV POWERSCRIBE Anatomical Region Laterality Modality Chest [facility] Radiographic Imaging 04/10/2024 8:39 AM EST Narrative 04/10/2024 8:41 AM EST REVIEWING YOUR TEST RESULTS IN [facility] IS NOT A SUBSTITUTE FOR DISCUSSING THOSE RESULTS WITH YOUR HEALTH CARE PROVIDER. PLEASE CONTACT YOUR PROVIDER VIA [employer] TO DISCUSS ANY QUESTIONS OR CONCERNS YOU MAY HAVE REGARDING THESE TEST RESULTS. RADIOLOGY REPORT FACILITY: [facility] UNIT/AGE/GENDER: Lamar7A IN AGE:58 Y SEX:F PATIENT NAME/: AMBIKA PRATT TURNER 1965 UNIT NUMBER: [id number] ACCESSION NUMBER: [id number] EXAMINATION: XR CHEST 1 VW HISTORY: possible [...] 04/10/2024 REVIEWING YOUR TEST RESULTS IN [facility] IS NOT A SUBSTITUTE FORDISCUSSING THOSE RESULTS WITH YOUR HEALTH CARE PROVIDER. PLEASE CONTACT YOUR PROVIDER VIA [employer] TO DISCUSS ANY QUESTIONS ORCONCERNS YOU MAY HAVE REGARDING THESE TEST RESULTS. RADIOLOGY REPORT FACILITY: [facility] UNIT/AGE/GENDER: Lamar7A IN AGE:58 Y SEX:F PATIENT NAME/: AMBIKA PRATT TURNER 1965 UNIT NUMBER: [id number] ACCESSION NUMBER: [id number] EXAMINATION: XR CHEST 1 VW HISTORY: possible [...] (ABNORMAL) Procalcitonin (04/10/2024 6:11 AM EST) Pathologist [facility] Procalcitonin 0.03(L) 0.10 - 0.50 ng/mL 04/10/2024 7:11 AM EST [facility] Blood VENOUS BLOOD SPECIMEN / Unknown Venipuncture / Unknown 04/10/2024 6:11 AM EST 04/10/2024 6:29 AM EST Lurdes Mathews APRN LAB BLOOD ORDERABLES Final Res ult Performing Organization Address City/State/[facility] Co de Phone Number [facility] [address] [place] [address] * Hemoglobin A1C (04/10/2024 2:39 AM EST) Only the most recent of2 resultswithin the time period is included. Pathologist [facility] Hemoglobin A1C 5.3 4.3 - 5.6 % LAB DEVICE: EnterMedia D100 04/10/2024 6:23 PM EST [facility] [...] increased HbA1c test results. us Iris Staley FACILITY ATTENDANT LAB BLOOD ORDERABLES Final Res ult [facility] [address] [place] [address] * CT Angio Abdomen Pelvis W Contrast (04/09/2024 9:38 PM EST) [facility] RAD WORKSTATION ID [id number] NV MotallyCRIBE Anatomical Region Laterality Modality Abdomen Computed Tomogra phy 04/09/2024 10:3 1 PM EST Narrative 04/09/2024 10:35 PM EST REVIEWING YOUR TEST RESULTS IN [facility] IS NOT A SUBSTITUTE FOR DISCUSSING THOSE RESULTS WITH YOUR HEALTH CARE PROVIDER. PLEASE CONTACT YOUR PROVIDER VIA [facility] ServicesSHRINERS H[facility] CHILDREN91 [employer] TO DISCUSS ANY QUESTIONS OR CONCERNS YOU MAY HAVE REGARDING THESE TEST RESULTS. RADIOLOGY REPORT FACILITY: [facility] UNIT/AGE/GENDER: M.ED ER AGE:58 Y SEX:F PATIENT NAME/: AMBIKA PRATT TURNER 1965 UNIT NUMBER: [id number] ACCESSION NUMBER: [id number] Examination: CT angiography of the abdomen and [...] - 04/09/2024 REVIEWING YOUR TEST RESULTS IN [facility] IS NOT A SUBSTITUTE FORDISCUSSING THOSE RESULTS WITH YOUR HEALTH CARE PROVIDER. PLEASE CONTACT YOUR PROVIDER VIA [facility] ServicesFORMERLY [facility] TO DISCUSS ANY QUESTIONS ORCONCERNS YOU MAY HAVE REGARDING THESE TEST RESULTS. RADIOLOGY REPORT FACILITY: [facility] UNIT/AGE/GENDER: M.ED ER AGE:58 Y SEX:F PATIENT NAME/: AMBIKA PRATT TURNER 1965 UNIT NUMBER: [id number] ACCESSION NUMBER: [id number] Examination: CT angiography of the abdomen and [...] - 59 U/L 04/09/2024 9:22 PM EST [facility] Blood VENOUS BLOOD SPECIMEN / Unknown Venipuncture / Unknown 04/09/2024 8:53 PM EST 04/09/2024 9:02 PM EST us Carlos Cannon MD LAB BLOOD ORDERABLES Final Resul t [facility] [address] [id number] * EKG 12 lead (04/09/2024 7:31 PM EST) 04/09/2024 7:31 PM EST Narrative [facility] - 04/10/2024 7:35 AM EST CARDIOLOGY REPORT FACILITY: [facility] PATIENT NAME/: AMBIKA PRATT 1965 UNIT/AGE/GENDER: AGE: 58 YR GENDER: F UNIT NUMBER: [id number] ACCESSION NUMBER: [id number] DATE OF EXAM: 04/09/2024 19:31 EXAMINATION(S): ECG 12-LEAD FINAL REPORT Procedure: ELECTROCARDIOGRAM RESULT Heart Rate 73 P-R Interval 144 ms QRS Interval 96 ms QT Interval 428 ms QTC Interval 472 ms P [place] 33 deg QRS [place] -2 deg T Wave [place] 45 deg DATE: 04/09/2024 19:31 SINUS RHYTHM LATE PRECORDIAL R/S TRANSITION NONSPECIFIC ST-T WAVE CHANGES NO PRIOR TRACING FOR COMPARISON Electronically signed by Marco Antonio Smith M.D. 04/10/2024 07:35 Procedure Note Marco Antonio Smith MD - 04/10/2024 CARDIOLOGY REPORT FACILITY: [facility] PATIENT NAME/: AMBIKA PRATT 1965 UNIT/AGE/GENDER: AGE: 58 YR GENDER: F UNIT NUMBER: [id number] ACCESSION NUMBER: [id number] DATE OF EXAM: 04/09/2024 19:31 EXAMINATION(S): ECG 12-LEAD FINAL REPORT Procedure: ELECTROCARDIOGRAM RESULT Heart Rate 73 P-R Interval 144 ms QRS Interval 96 ms QT Interval 428 ms QTC Interval 472 ms P [place] 33 deg QRS [place] -2 deg T Wave [place] 45 deg DATE: 04/09/2024 19:31 SINUS RHYTHM [...] Color, Urine Colorless 04/09/2024 7:44 PM EST [facility] Clarity, Urine Clear 04/09/2024 7:44 PM EST [facility] Specific [place], Urine 1.008 1.005 - 1.030 [arb'U] 04/09/2024 7:44 PM EST [facility] pH, Urine 5.5 5.0 - 9.0 [pH] 04/09/2024 7:44 PM [facility] Protein, Urine Negative Negative, 10 mg/dL, 15 mg/dL, 20 mg/dL, Trace 04/09/2024 7:44 PM [facility] Glucose, Urine Negative Negative 04/09/2024 7:44 PM [facility] Ketones, Urine Negative Negative 04/09/2024 7:44 PM [facility] Bilirubin, Urine Negative Negative mg/dL 04/09/2024 7:44 PM [facility] Blood, Urine Negative Negative [arb'U] 04/09/2024 7:44 PM [facility] Nitrite, Urine Negative Negative 04/09/2024 7:44 PM [facility] Urobilinogen, Urine Normal Normal 04/09/2024 7:44 PM [facility] Leukocyte Esterase, Urine 500 Sena/uL(A) Negative 04/09/2024 7:44 PM [facility] Reflex Microscopic? 04/09/2024 7:44 PM [facility] Comment:Microscopic performe d Red Blood Cells, Urine 1 0 - 2 [HPF] 04/09/2024 7:44 PM [facility] White Blood Cells, Urine 40(H) 0 - 3 [HPF] 04/09/2024 7:44 PM [facility] Squamous Epithelial Cells, Urine <1 0 - 4 [HPF] 04/09/2024 7:44 PM [facility] Bacteria, Urine None None [HPF] 04/09/2024 7:44 PM [facility] Urine MID-STREAM URINE SPECIMEN / Unknown Non-blood Collection / Unknown 04/09/2024 7:25 PM EST 04/09/2024 7:35 PM EST us Carlos Cannon MD URINE ORDERABLES Final Result [facility] [address] [id number] * High Sensitivity Troponin-I (04/09/2024 4:04 PM EST) Pathologist [facility] Troponin-I, High Sensitivity 3 0 - 14 pg/mL 04/09/2024 7:05 PM EST [facility] Blood VENOUS BLOOD SPECIMEN / Unknown Venipuncture / Unknown 04/09/2024 4:04 PM EST 04/09/2024 4:26 PM EST us Carlos Cannon MD LAB BLOOD ORDERABLES Final Resul t [facility] [address] [place] [address] * [place] Upper GI & Small Bowel (02/12/2024 11:13 AM EDT) Pathologist [facility] RAD WORKSTATION ID [id number] NV POWERSCRIBE Anatomical Region Laterality Modality Abdomen [facility] Radiographic Imaging 02/12/2024 1:44 PM EDT Narrative 02/12/2024 4:00 PM EDT REVIEWING YOUR TEST RESULTS IN [facility] IS NOT A SUBSTITUTE FOR DISCUSSING THOSE RESULTS WITH YOUR HEALTH CARE PROVIDER. PLEASE CONTACT YOUR PROVIDER VIA [facility]ITALLoveThatFitFORMERLY [facility] TO DISCUSS ANY QUESTIONS OR CONCERNS YOU MAY HAVE REGARDING THESE TEST RESULTS. RADIOLOGY REPORT FACILITY: [facility] UNIT/AGE/GENDER: MORRO OP AGE:58 Y SEX:F PATIENT NAME/: AMBIKA PRATT TURNER 1965 UNIT NUMBER: [id number] ACCESSION NUMBER: [id number] EXAMINATION: Limited Upper Gastrointestinal Exam HISTORY: Periumbilical pain, evaluate for possible recurrence of internal hernia COMPARISON: None FLUOROSCOPY TIME: 0.8 minute DOSE AREA PRODUCT: 4280 mGy*m2 IMAGES SAVED: 23 FINDINGS: System Specialist radiograph of the abdomen demonstrates postsurgical changes [...] - 02/12/2024 REVIEWING YOUR TEST RESULTS IN [facility] IS NOT A SUBSTITUTE FORDISCUSSING THOSE RESULTS WITH YOUR HEALTH CARE PROVIDER. PLEASE CONTACT YOUR PROVIDER VIA [facility] TO DISCUSS ANY QUESTIONS ORCONCERNS YOU MAY HAVE REGARDING THESE TEST RESULTS. RADIOLOGY REPORT FACILITY: [facility] UNIT/AGE/GENDER: D.RAD OP AGE:58 Y SEX:F PATIENT NAME/: AMBIKA PRATT TURNER 1965 UNIT NUMBER: [id number] ACCESSION NUMBER: [id number] EXAMINATION: Limited Upper Gastrointestinal Exam HISTORY: Periumbilical pain, evaluate for possible recurrence of internal hernia COMPARISON: None FLUOROSCOPY TIME: 0.8 minute DOSE AREA PRODUCT: 4280 mGy*m2 IMAGES SAVED: 23 FINDINGS: System Specialist radiograph of the abdomen demonstrates postsurgical changes [...] 136 - 145 mmol/L 11/07/2021 4:05 AM [facility] Comment: (note) Excess protein and/or lipids can falsely decrease sodium levels (pseudo hyponatremia). Potassium 3.7 3.5 - 5.1 mmol/L 11/07/2021 4:05 AM [facility] Chloride 102 98 - 107 mmol/L 11/07/2021 4:05 AM [facility] Comment: (note) Falsely elevated chloride levels can be seen in patients taking medications which contain bromide. Carbon Dioxide 32(H) 22 - 29 mmol/L 11/07/2021 4:05 AM [facility] Anion Gap 8 5 - 13 (arb'U) 11/07/2021 4:05 AM [facility] Comment: (note) Calculation- Na - (Cl + CO2) Glucose 87 71 - 139 mg/dL 11/07/2021 4:05 AM [facility] Comment: (note) Reference range based on inpatient hypo/hyperglycemic treatment levels. A random glucose =/>200 is concerning for poor control. Blood Urea Nitrogen (BUN) 6(L) 10 - 20 mg/dL 11/07/2021 4:05 AM [facility] Creatinine-Blood 0.89 0.55 - 1.02 mg/dL 11/07/2021 4:05 AM [facility] BUN/Creatinine Ratio 6.7 RATIO 11/07/2021 4:05 AM [facility] Estimated GFR >60 >60 /1.73 m2 11/07/2021 4:05 AM [facility] Comment: (note) Results do not take into account body mass. Valid for patients 18 to 70 years of age. Estimated GFR if -Urugu[place] >60 >60 /1.73 m2 11/07/2021 4:05 AM EDT [facility] Comment: (note) Results do not take into account body mass. Valid for patients 18 to 70 years of age. Calcium 9.3 8.4 - 10.2 mg/dL 11/07/2021 4:05 AM EDT [facility] Plasma specimen (specimen) BLOOD SPECIMEN FROM PATIENT / Unknown 11/07/2021 3:30 AM EDT 11/07/2021 3:39 AM EDT us Amanda Garcias MD LAB BLOOD ORDERABLES Final Result Performing Organization Address [facility]/ZIP [place] [address] [place] [address] * Potassium (11/06/2021 12:28 PM EDT) Only the most recent of2 resultswithin the time period is included. Potassium 3.5 3.5 - 5.1 mmol/L 11/06/2021 12:48 PM EDT [facility] Plasma BLOOD SPECIMEN FROM PATIENT / Unknown 11/06/2021 12:28 PM EDT 11/06/2021 12:34 PM EDT us Forrest Garrison MD LAB BLOOD ORDERABLES Final Re sult [address] [address] * C. difficile PCR /Toxin Detection (11/03/2021 6:46 PM EDT) Sparks Score Sparks Score 6 - loose stool acceptable for C. difficile testing (arb'U) 11/03/2021 6:56 PM EDT [facility] CDIFF PCR Negative Negative 11/03/2021 7:41 PM EDT [facility] Comment: Toxigenic C. difficile was not detected. [...] ORDERAB LES Final Result Performing Organization Address [facility] [place] [address] [address] * Protime-INR (11/03/2021 5:30 PM EDT) Prothrombin Time 12.8 10.3 - 13.3 s 11/03/2021 5:54 PM EDT [facility] Comment: (note) Anticoagulants may alter the results of Laboratory Coagulation assays. New-generation anticoagulants such as direct Thrombin inhibitors (Dabigatran/Pradaxa, Argatroban, Bivalrudin) and direct/indirect factor Xa inhibitors (Rivaroxaban/Xarelto,Apixaban/Eliquis, Danaparoid/Orgaran, Fondaparinux/Arixtra) have been shown to affect the results of Laboratory Coagulation assays, creating falsely elevated or decreased values. Correlation with medication history is advised. INR 1.1 INR 11/03/2021 5:54 PM EDT [facility] Comment: INR Therapeutic Ranges: Low Intensity Range: 2.0-3.0 High Intensity Range: 3.0-4.5 Plasma specimen (specimen) BLOOD SPECIMEN FROM PATIENT / Unknown 11/03/2021 5:30 PM EDT 11/03/2021 5:37 PM EDT us Forrest Garrison MD LAB BLOOD ORDERABLES Final Re sult Performing Organization Address [facility]/ZIP Co de Phone Number [address] [place] [address] [address] * Type and Screen (11/03/2021 5:28 PM EDT) ABO/Rh(D) O Negative 11/03/2021 6:33 PM EDT [facility] Antibody Screen Negative 11/03/2021 6:33 PM EDT [facility] Crossmatch Expiration 11/06/2021,2 359 11/03/2021 6:33 PM EDT [facility] Whole Blood BLOOD SPECIMEN FROM PATIENT / Unknown 11/03/2021 5:28 PM EDT 11/03/2021 5:40 PM EDT Jacque Pitts APRN BLOOD BANK TEST ORDERABLES Final Result Performing Organization Address City/[facility]/ZIP Co de Phone Number [facility] AND [address] [address] * Culture,Urine (11/03/2021 4:39 PM EDT) Pathologist [facility] Culture 10,000 to 100,000 CFU/ML Mixed Rosa Elena Isolated. Multiple organisms present. Suggest appropriate recollection if clinically indicated. 11/04/2021 2:15 PM EDT [facility] Urine Midstream MID-STREAM URINE SPECIMEN / Unknown 11/03/2021 4:39 PM EDT 11/03/2021 5:02 PM EDT Iris Staley FACILITY ATTENDANT MICROBIOLOGY - GENERAL ORDERAB LES Final Result [facility] [address] [facility] [address] [place], [place] [id number] [facility] [address] [facility] [address] [place] [address] * XR Abdomen FLat & Upr + CXR (11/03/2021 3:30 PM EDT) Anatomical Region Laterality Modality Abdomen [facility] Radiographic Imaging 11/03/2021 3:35 PM EDT Narrative 11/03/2021 3:37 PM EDT REVIEWING YOUR TEST RESULTS IN [facility] IS NOT A SUBSTITUTE FOR DISCUSSING THOSE RESULTS WITH YOUR HEALTH CARE PROVIDER. PLEASE CONTACT YOUR PROVIDER VIA [employer] TO DISCUSS ANY QUESTIONS OR CONCERNS YOU MAY HAVE REGARDING THESE TEST RESULTS. RADIOLOGY REPORT FACILITY: [facility] UNIT/AGE/GENDER: [id number] IN AGE:55 Y SEX:F PATIENT NAME/: AMBIKA PRATT TURNER 1965 UNIT NUMBER: [id number] ACCESSION NUMBER: [id number] PA VIEW OF THE CHEST, 3 AP [...] - 11/03/2021 REVIEWING YOUR TEST RESULTS IN [facility] IS NOT A SUBSTITUTE FORDISCUSSING THOSE RESULTS WITH YOUR HEALTH CARE PROVIDER. PLEASE CONTACT YOUR PROVIDER VIA [employer] TO DISCUSS ANY QUESTIONS ORCONCERNS YOU MAY HAVE REGARDING THESE TEST RESULTS. RADIOLOGY REPORT FACILITY: [facility] UNIT/AGE/GENDER: [id number] IN AGE:55 Y SEX:F PATIENT NAME/: AMBIKA PRATT TURNER 1965 UNIT NUMBER: [id number] ACCESSION NUMBER: [id number] PA VIEW OF THE CHEST, 3 AP [...] 1535 Patrick Cole MD IMG DIAGNOST[facility] Final Result * Ova and Parasite Examination (11/03/2021 3:24 PM EDT) Pathologist [facility] Ova and Parasite Examination No ova or parasites observed. 11/04/2021 2:26 PM EDT [facility] Stool STOOL SPECIMEN / Unknown 11/03/2021 3:24 PM EDT 11/03/2021 6:55 PM EDT Comment:Random Iris Staley FACILITY ATTENDANT MICROBIOLOGY - GENERAL ORDERAB LES Final Result [facility] [address] [place], [place] [address] [facility] [address] [facility] [address] [place] [address] * Stool Culture and Shiga Toxin Assay (11/03/2021 3:24 PM EDT) Pathologist [facility] Shiga Toxin Assay (Stool) No Shiga Toxin Detected. 11/06/2021 5:11 AM EDT [facility] Culture No Salmonella , Shigella, Campylobac ter, Yersinia, or E.coli 0157 isolated. 11/06/2021 11:10 AM EDT [facility] Stool STOOL SPECIMEN / Unknown 11/03/2021 3:24 PM EDT 11/03/2021 6:55 PM EDT Comment:Random us Iris Staley FACILITY ATTENDANT MICROBIOLOGY - GENERAL ORDERAB LES Final Result [facility] [address] [place], [place] [address] [facility] [address] [place] [address] Visit Diagnoses Diagnosis Start Date SBO (small [...] disorder, not elsewhere classified 04/09/2024 Care Teams Manager Paid Relationship Specialty Start Date End Date Salima Gonzáles MD [address] [place] [address] PCP - General Family Medicine 11/02/21
--- OUTSIDE RECORDS SUMMARY | 2025-05-05 17:48 | XMS_ITS | Encounter Summary ---
Author Organization [employer] ([place], [place], [place], [place], [place]) Address [address] [place] [address] Care Team Providers Care Route Manager Name Role Phone Salima Gonzáles DO Primary Care Provider [phone] Encounter Details Date Type Department Care Team (Late st Contact Info) Description 10/05/2020 Transcribed Document [facility] [place] Family Medicine [address] [place] [address] ProviderQuincy MD [address] [place], [place] [id number] Social History Tobacco Use Types Packs/Day Years [...] on filedocumented in this encounter Care Teams Route Manager Relationship Specialty Start Date End Date Salima Gonzáles DO [address] [phone] PCP - General Family Medicine 02/09/23 documented as of this encounter
--- OUTSIDE RECORDS SUMMARY | 2025-05-05 17:48 | XMS_ITS | Encounter Summary ---
Author Organization [employer] ([place], [place], [place], [place], [place]) Address [address] [place] [address] Care Team Providers Care Tank Inspector Name Role Phone Eliecer Salima Tate SWANN Primary Care Provider Encounter Details Date Type Department Care Team (Late st Contact Info) Description 10/11/2020 Transcribed Document [facility] [place] Family Medicine [address] [place] [address] ProviderQuincy MD [address] [place], [place] [address] Social History Tobacco Use Types Packs/Day Years [...] Policy Numbers : Insurance 1 Health Plan: [facility] MEDICARE REPL Policy Number: [id number] Authorization Number: Insurance Primary Name : [employer] MEDICARE REPL Policy Number: [id number] Authorization Status-Primary : Awaiting callback Reference Number-Primary : [id number] Authorized Service Begin Date-Primary : 10/03/2020 EDT Authorization Comments-Primary : Faxed dc summary via Michael Historical Authorization Comments-Primary : Comment 1: Remains pending per [employer] (PING HOFFMANN RN 10/11/2020 12:11) Comment 2: Email sent to madelyn (PING HOFFMANN RN 10/09/2020 15:11) Comment 3: Clinicals faxed via [employer] for IP approval (DEISY LIRA RN 10/05/2020 14:13) Comment 4: Clinicals submitted via [employer] for IP approval (DEISY LIRA RN 10/04/2020 08:24) PING HOFFMANN RN - 10/11/2020 12:12 EDT Electronically signed by [facility] Conversion Fruit And Vegetable Classer Cerner at 08/23/2022 10:56 AM CDT documented in this encounter Plan of Treatment Not on file documented as of this encounter Visit Diagnoses Not on filedocumented in this encounter Care Teams Tank Inspector Relationship Specialty Start Date End Date Salima Gonzáles DO [address] [address] PCP - General Family Medicine 02/09/23 documented as of this encounter
--- OUTSIDE RECORDS SUMMARY | 2025-05-05 17:48 | XMS_ITS | Encounter Summary ---
Author Organization [employer] ([place], [place], [place], [place], [place]) Address [address] [place] [address] Care Team Providers Care Cabin Cleaner Name Role Phone Eliecer Salima Tate SWANN Primary Care Provider [phone] Encounter Details Date Type Department Care Team (Late st Contact Info) Description 10/09/2020 Transcribed Document [facility] [place] Family Medicine [address] [place] [address] ProviderQuincy MD [address] [place], [place] [address] Social History Tobacco Use Types Packs/Day Years [...] Policy Numbers : Insurance 1 Health Plan: ON LICENSE OF [facility] MEDICARE REPL Policy Number: [id number] Authorization Number: Insurance Primary Name : [employer] MEDICARE REPL Policy Number: [id number] Authorization Status-Primary : Awaiting callback Reference Number-Primary : [id number] Authorized Service Begin Date-Primary : 10/03/2020 EDT Authorization Comments-Primary : Email sent to madelyn Historical Authorization Comments-Primary : Comment 1: Clinicals faxed via [employer] for IP approval (DEISY LIRA RN 10/05/2020 14:13) Comment 2: Clinicals submitted via [employer] for IP approval (DEISY LIRA RN 10/04/2020 08:24) PING HOFFMANN RN - 10/09/2020 15:11 EDT Electronically signed by [facility] Conversion Design Engineering Specialist Cerner at 08/23/2022 10:52 AM CDT documented in this encounter Plan of Treatment Not on file documented as of this encounter Visit Diagnoses Not on filedocumented in this encounter Care Teams Cabin Cleaner Relationship Specialty Start Date End Date Salima Gonzáles, [address] [address] PCP - General Family Medicine 02/09/23 documented as of this encounter
--- OUTSIDE RECORDS SUMMARY | 2025-05-05 17:48 | XMS_ITS | Encounter Summary ---
Author Organization [employer] ([place], [place], [place], [place]) Address [address] [place] [address] Care Team Providers Care Computerized Mill Recorder Name Role Phone Anujlizbet Salima Tate SWANN Primary Care Provider [phone] Encounter Details Date Type Department Care Team (Late st Contact Info) Description 10/04/2020 Transcribed Document [facility] [place] Family Medicine [facility] [place] [address] ProviderQuincy MD [address] [place] [address] Social History Tobacco Use Types Packs/Day Years [...] Left renal calculus. PLAN: Ureteroscopy with laser. /[id number] Gatito Menendez MD FP/AQ / [facility] / [facility] /[id number] Electronically signed by [facility] Conversion Water Treatment Specialist Cerner at 08/23/2022 11:00 AM CDT documented in this encounter Plan of Treatment Not on file documented as of this encounter Visit Diagnoses Not on filedocumented in this encounter Care Teams Computerized Mill Recorder Relationship Specialty Start Date End Date Salima Gonzáles, [address] [phone] PCP - General Family Medicine 02/09/23 documented as of this encounter
--- OUTSIDE RECORDS SUMMARY | 2025-05-05 17:48 | XMS_ITS | Referral Summary ---
Author Organization [employer] ([place], [place], [place], [place]) Address [address] [place] [address] Care Team Providers Care Elevator Installer Name Role Phone Salima Gonzáles DO Primary Care Provider [phone] Social History Tobacco Use Types Packs/Day Years Used Date Smoking Tobacco: Never Assessed Comments Unknown Sex and Gender Information Value Date Recorded Sex Assigned at Not on file Legal Sex Female 2:54 PM CDT Gender Identity Not on file Sexual Orientation Not on file Plan of Treatment Not on file Insurance [facility] ACCESS O MAP Care Teams Elevator Installer Relationship Specialty Start Date End Date Salima Gonzáles DO [address] [place] [address] PCP - General Family Medicine 02/09/23
--- OUTSIDE RECORDS SUMMARY | 2025-05-05 17:48 | XMS_ITS | Encounter Summary ---
Author Organization [employer] ([place], [place], [place], [place], [place]) Address [address] [place] [address] Care Team Providers Care Fleet Salesperson Name Role Phone Eliecer Salima Tate SWANN Primary Care Provider [phone] Encounter Details Date Type Department Care Team (Late st Contact Info) Description 10/13/2020 Transcribed Document [facility] [address] [place] [address] ProviderQuincy MD [address] [place] [address] Social History Tobacco Use Types Packs/Day Years [...] On: 10/13/2020 15:02 EDT by Katia Pratt, Washer And Capper Machine Operator Primary Insurance Authorization Authorization and Policy Numbers : Insurance 1 Health Plan: REPLACED BY [facility] MEDICARE REPL Policy Number: [id number] Authorization Number: Insurance Primary Name : [employer] MEDICARE REPL Policy Number: [id number] Authorization Status-Primary : Denied Auth/Referral Contact Name-Primary : DC+ Reference Number-Primary : [id number] Authorized Service Begin Date-Primary : 10/03/2020 EDT Authorization Comments-Primary : Discharge date and summary faxed. Historical Authorization Comments-Primary : Comment 1: Email to David/Mary/MOSHE (JUSTEN HARTLEY, Rn-Utilization Review 10/13/2020 10:20) Comment 2: Rec fax from [place] 10/12/20 States admission has been denied. Fax to Jacque Tabor (TEMI LAMBERT, Applications Trainer 10/12/2020 14:42) Comment 3: Per Jinny remains [...] 10/05/2020 14:13) Comment 8: Clinicals submitted via [employer] for IP approval (DEISY LIRA RN 10/04/2020 08:24) Katia Pratt, Washer And Capper Machine Operator - 10/13/2020 15:02 EDT documented in this encounter Plan of Treatment Not on file documented as of this encounter Visit Diagnoses Not on filedocumented in this encounter Care Teams Fleet Salesperson Relationship Specialty Start Date End Date Salima Gonzáles, 8 [facility] [address] [place] [address] PCP - General Family Medicine 02/09/23 documented as of this encounter
--- OUTSIDE RECORDS SUMMARY | 2025-05-05 17:48 | XMS_ITS | Encounter Summary ---
Author Organization [employer] ([place], [place], [place], [place], [place]) Address [address] [place] [address] Care Team Providers Care Transmission Repairer Name Role Phone Anujlizbet Salima Tate SWANN Primary Care Provider [phone] Encounter Details Date Type Department Care Team (Late st Contact Info) Description 10/11/2020 Transcribed Document [facility] [address] [place] [address] ProviderQuincy MD [address] [place], [place] [address] Social History Tobacco Use Types Packs/Day Years [...] [facility] Policy Number: [id number] Authorization Number: Insurance Primary Name : [place] MEDICARE REPL Policy Number: [id number] Authorization Status-Primary : Awaiting callback Reference Number-Primary : [id number] Authorized Service Begin Date-Primary : 10/03/2020 EDT Authorization Comments-Primary : Remains pending per [employer] Historical Authorization Comments-Primary : Comment 1: Email sent to madelyn (PING HOFFMANN RN 10/09/2020 15:11) Comment 2: Clinicals faxed via [employer] for IP approval (DEISY LIRA RN 10/05/2020 14:13) Comment 3: Clinicals submitted via [employer] for IP approval (DEISY LIRA RN 10/04/2020 08:24) PING HOFFMANN RN - 10/11/2020 12:11 EDT documented in this encounter Plan of Treatment Not on file documented as of this encounter Visit Diagnoses Not on filedocumented in this encounter Care Teams Transmission Repairer Relationship Specialty Start Date End Date Salima Gonzáles, 8 [facility] [address] [place] [address] PCP - General Family Medicine 02/09/23 documented as of this encounter
--- OUTSIDE RECORDS SUMMARY | 2025-05-05 17:48 | XMS_ITS | Encounter Summary ---
Author Organization [employer] ([place], [place], [place], [place], [place]) Address [address] [place] [address] Care Team Providers Care Advertising Associate Name Role Phone Eliecer Salima Tate SWANN Primary Care Provider [phone] Encounter Details Date Type Department Care Team (Late st Contact Info) Description 10/05/2020 Transcribed Document [facility] [place] [address] [place] [address] ProviderQuincy MD [address] [place] [address] Social History Tobacco Use Types Packs/Day Years [...] On: 10/05/2020 14:02 EDT by EVONNE GABRIEL RN-Email Marketing Processor Final Discharge Planning Discharge Arrangements : Patient Post-Acute Information Patient Name: AMBIKA PIERRE Gender: Female : [birth year] Age: 54 Years No Post-Acute Placement(s) Listed No Post-Acute Service(s) Listed No [place] Referral(s) Listed Transportation Needs : Family/Friend Follow Up Appointment Scheduled : Yes Is Patient High/Moderate Readmission Risk? : No Discharge To Care Management : Home/Residential/Assisted or Self Care - EVONNE GABRIEL, DIANE-Email Marketing Processor - 10/05/2020 14:02 EDT Electronically signed by [facility] Conversion Dupligraph Operator Cerner at 08/23/2022 11:08 AM CDT documented in this encounter Plan of Treatment Not on file documented as of this encounter Visit Diagnoses Not on filedocumented in this encounter Care Teams Advertising Associate Relationship Specialty Start Date End Date Salima Gonzáles, [address] [phone] PCP - General Family Medicine 02/09/23 documented as of this encounter
--- OUTSIDE RECORDS SUMMARY | 2025-05-05 17:48 | XMS_ITS | Encounter Summary ---
Author Organization [employer] ([place], [place], [place], [place], [place]) Address [address] [place] [address] Care Team Providers Care Winch Stripper Name Role Phone Salima Gonzáles Tate SWANN Primary Care Provider [phone] Encounter Details Date Type Department Care Team (Late st Contact Info) Description 10/05/2020 Transcribed Document [facility] [place] [address] [place] [address] ProviderQuincy MD [address] [place], [place] [address] Social History Tobacco Use Types Packs/Day Years [...] on filedocumented in this encounter Care Teams Winch Stripper Relationship Specialty Start Date End Date Salima Gonzáles DO 8 [facility] [address] [place] [phone] PCP - General Family Medicine 02/09/23 documented as of this encounter
--- OUTSIDE RECORDS SUMMARY | 2025-05-05 17:48 | XMS_ITS | Encounter Summary ---
Author Organization [employer] ([place], [place], [place], [place], [place]) Address [address] [place] [address] Care Team Providers Care Range Ecologist Name Role Phone Salima Gonzáles DO Primary Care Provider [phone] Encounter Details Date Type Department Care Team (Late st Contact Info) Description 10/05/2020 Transcribed Document [facility] [place] Family Medicine [facility] [place] [address] ProviderQuincy MD [address] [place] [phone] Social History Tobacco Use Types Packs/Day Years [...] on filedocumented in this encounter Care Teams Range Ecologist Relationship Specialty Start Date End Date Salima Gonzáles, [address] [address] PCP - General Family Medicine 02/09/23 documented as of this encounter
--- OUTSIDE RECORDS SUMMARY | 2025-05-05 17:48 | XMS_ITS | Encounter Summary ---
Author Organization [employer] ([place], [place], [place], [place], [place]) Address [address] [place] [address] Care Team Providers Care Rn Palliative Care Name Role Phone Salima Mi DO Primary Care Provider [phone] Encounter Details Date Type Department Care Team (Late st Contact Info) Description 10/05/2020 Transcribed Document [facility] [place] [address] [place] [address] ProviderQuincy MD [address] [place], [place] [address] Social History Tobacco Use Types Packs/Day Years [...] -- Start: 10/05/20 8:17:00 EDT, 60 gm [id number] josue, GI Soft / Low Residue / [...] staff. Electronically signed by Nuzhat Barahona Conversion Event Decorator And Designer Cerner at 08/23/2022 11:14 AM CDT documented in this encounter Plan of Treatment Not on file documented as of this encounter Visit Diagnoses Not on filedocumented in this encounter Care Teams Rn Palliative Care Relationship Specialty Start Date End Date Salima Mi DO 8 [facility] [address] [place] [address] PCP - General Family Medicine 02/09/23 documented as of this encounter
--- OUTSIDE RECORDS SUMMARY | 2025-05-05 17:48 | XMS_ITS | Clinical Summary ---
Author Organization Healthcare Address [address] [place] [address] Care Team Providers Care Salvage Mend Worker Name Role Phone Salima Gonzáles DO Primary Care Provider [phone] Allergies Active Allergy Reactions Criticality Noted Date [...] Cancer Screening 2009 [facility]-Breast Cancer Screening 2014 [facility]-RSV Vaccine: 60+ Years or (1 - Risk 50-74 years 1-dose series) 2014 [facility]-Zoster Vaccines (1 of 2) 2014 [facility]-Diabetes: Hemoglobin A1C 10/29/2021 05/01/2021 [facility]-TZCUN-19 Vaccine ( season) 2025 02/23/2022, 01/26/2021, 06/09/2020, Additional history exists [facility]-Influenza Vaccine (#1) 01/05/202502/22, 01/27/2022, 01/28/2021, Additional history exists [facility]-DTaP,Tdap,and Td Vaccines (2 - Td or Tdap) 01/25/2028 01/24/2018 [facility]-Hepatitis A Vaccines Aged Out 05/11/2018, 08/06 No longer eligible based on patient's age to complete this topic [facility]-Pneumococcal Vaccine: 50+ Years Completed 01/27/2022, 05/11/2018 HPV Vaccines (No Doses Required) Completed [facility]-HIB Vaccines Aged Out No longer e ligible based on patient's age to complete this topic [facility]-IPV Vaccines Aged Out No longer e ligible based on patient's age to complete this topic [facility]-Rotavirus Vaccines Aged Out No lo nger eligible based on patient's age to complete this topic Medical Devices Implanted Type Area Biofuels Plant Construction Worker Device Identifier Shelf Expiration Date Model / Serial / Lot Nail Femoral Retro T2 Alpha 11mm X 340mm - [id number] Implanted:Qty: 1 on 05/01/2021 by Crow Lockwood MD at [facility] Nail Left: Femur [employer] [facility][id number] 10/04/2030 [id number] / / [id number] Screw Locking T2 D5xl80 - [id number] Implanted:Qty: 1 on 05/01/2021 by Bebeto Flynn MD at [facility] Screw Left: Femur [employer] [facility][id number] 09/03/2030 [id number] / / [id number] Screw Locking T2 D5xl60 - [id number] Implanted:Qty: 1 on 05/01/2021 by Bebeto Flynn MD at [facility] Screw Left: Femur [employer] ([facility][id number] 02/03/2031 [id number] / / [id number] Screw Locking T2 D5xl50 - [id number] Implanted:Qty: 1 on 05/01/2021 by Bebeto Flynn MD at [facility] Screw Left: Femur [employer] ([facility])-[id number] 02/03/2031 [id number] / / [id number] Screw Locking T2 D5xl75 - [id number] Implanted:Qty: 1 on 05/01/2021 by Bebeto Flynn MD at [facility] Screw Left: Femur [employer] ([facility])-[id number] 01/04/2031 [id number] / / [id number] Screw Locking T2 D5xl55 - [id number] Implanted:Qty: 1 on 05/01/2021 by Bebeto Flynn MD at [facility] Screw Left: Femur [employer] ([facility])-[id number] 12/04/2030 [id number] / / [id number] Screw Locking T2 D5x32.5 - [id number] Implanted:Qty: 1 on 05/01/2021 by Bebeto Flynn MD at [facility] Screw Left: Femur [employer] ([facility])-[id number] 01/04/2031 2360-5032S / / [id number] Screw Locking T2 D5x37.5 - [id number] Implanted:Qty: 1 on 05/01/2021 by Bebeto Flynn MD at [facility] Screw Left: Femur [employer] ([employer])-[id number] 01/04/2031 [id number] / / [id number] Procedures Procedure Name Priority Date/Time Associated Diagnosis Comments HEMOGLOBIN A1C STAT Add-on 05/01/2021 2:21 AM EST from Last 3 Months or Most Recently Relevant to Health Maintenance Results * Hemoglobin A1c (05/01/2021 2:21 AM EST) Hemoglobin A1c 5.5 <5.7 % 05/01/2021 12:36 PM EST [facility] Blood Venous blood specimen / Unknown Venipuncture / Unknown 05/01/2021 2:21 AM EST 05/01/2021 2:26 AM EST Narrative [facility] - 05/01/2021 12:36 PM EST HA1C Interpretive Data: Diagnosis of Diabetes: Diabetic > or = 6.5% Pre-diabetic 5.7 to 6.4% Non-diabetic < or = 5.6% Glycemic Targets for Type I and Type II Diabetics: Non- Adults <7.0% Adults <6.0% Children and Adolescents <7.5% Source: [place] Diabetes Association. Standards of medical care in diabetes,2017. Diabetes Care.2017:40 (suppl 1):S1-S135. HbA1c assay performed by an ion-exchange chromatography method that is certified traceable to the DCCT. us Drew Matos MD LAB BLOOD ORDERABLES Final Re sult [facility] [address] [place] [address] from Last 3 Months or Most Recently Relevant to Health [place] [address] [employer] MEDICARE Advance Directives * Full Code (Latest Code Status on File) Date Activated Date Inactivated Comments 04/30/2021 4:10 PM 05/07/2021 11:19 AM Question Answer Comments Patient has decision-making capacity? Yes Care Teams Salvage Mend Worker Relationship Specialty Start Date End Date Salima Gonzáles DO [address] [place] [address] [place] [address] PCP - General 09/17/20
--- OUTSIDE RECORDS SUMMARY | 2025-05-05 17:48 | XMS_ITS | Encounter Summary ---
Author Organization [employer] ([place], [place], [place], [place], [place]) Address [address] [place] [address] Care Team Providers Care Garbage Stoker Name Role Phone Eliecer Salimajovanni Ybarra DO Primary Care Provider [phone] Encounter Details Date Type Department Care Team (Late st Contact Info) Description 10/05/2020 Transcribed Document [facility] [place] [address] [place] [address] ProviderQuincy MD [address] [place], [place] [id number] Social History Tobacco Use Types Packs/Day Years [...] these instructions at home: Medicines ??? Take tyts-lxo-uccsokz and prescription medicines only as told by [...] provider. Document Revised: 09/09/2019 Document Reviewed: 09/09/2019 [employer] Patient Education ? 2019 [employer] Ureteroscopy Ureteroscopy is a procedure to [...] including vitamins, herbs, eye drops, creams, and ibbl-cou-fbpuitc medicines. ??? Any problems you or family [...] provider. Document Revised: 04/05/2018 Document Reviewed: 02/02/2017 [employer] Patient Education ? 2020 [employer]. Dietary Guidelines to Help Prevent Kidney Stones [...] Rhubarb. ? Beets. ? Potato chips and setswana fries. ? Nuts. ??? If you regularly take a diuretic medicine, make sure to eat at least 1?2 fruits or vegetables high in potassium each day. These include: ? Avocado. ? Banana. ? [place], prune, carrot, or tomato juice. ? Baked [...] Casseroles. Pizza. Lasagna. Frozen meals. Potato chips. Dutch fries. Summary ??? You can reduce your [...] provider. Document Revised: 08/13/2019 Document Reviewed: 04/03/2017 [employer] Patient Education ? 2019 [employer] Electronically signed by Alec Barahona Conversion Assistant Director Of Residence Life Cerner at 08/23/2022 11:12 AM CDT documented in this encounter Plan of Treatment Not on file documented as of this encounter Visit Diagnoses Not on filedocumented in this encounter Care Teams Garbage Stoker Relationship Specialty Start Date End Date Salima Gonzáles, [address] [address] PCP - General Family Medicine 02/09/23 documented as of this encounter
--- OUTSIDE RECORDS SUMMARY | 2025-05-05 17:48 | XMS_ITS | Clinical Summary ---
[facility] Organization [facility] Address [address] [place] [address] Care Team Providers Care Magazine Grinder Loader Name Role Phone Eliecer Salimajovanni Connergh Primary Care Provider [phone] Allergies Active Allergy Reactions Criticality Noted Date [...] Gluc Sensor (FreeStyle Niels 2 Sensor[place] [facility] [place] DIRECTED FOR CONTINUOUS GLUCOSE MONITORING 01/24/20 [...] patient to restart PAP therapy and contact [employer] to find a better mask that does not cause migraines. 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 Encouraged patient to restart PAP therapy and contact [employer] to find a better mask that does [...] Of Support Discussed With: Patient Care Teams Magazine Grinder Loader Relationship Specialty Start Date End Date Salima Gonzáles DO [address] [place] [address] PCP - General Family Medicine 02/21/17
--- OUTSIDE RECORDS SUMMARY | 2025-05-05 17:48 | XMS_ITS | Data Portability ---
Author Organization [facility] Dylan c, [facility] [place] [facility] Address [address] [place] [address] Care Team Providers Care Public Information Specialist Name Role Phone MARCOS MI Primary Care Provider [phone] STEFANI MAYA Heating And Air Conditioning Mechanic Assessment No assessment recorded. Plan of Treatment [...] and insertion of intraocular lens [facility] 08:25:45 replacement of bilateral knee joints [facility]/05[facility]2025 08:26:13 operation on bone injury of femur completed [facility] 03/05/2025 08:26:37 bypass of stomach [facility] 03/05/2025 08:27:22 [facility] 03/05/2025 08:27:33 cholecystectomy completed [facility] 03/05/2025 08:27:40 procedure on intestine completed [facility] 03/05/2025 08:27:57 lithotripsy completed [facility] 03/05/2025 08:28:06 removal of urinary calculus completed [facility] 03/05/2025 08:28:15 Imaging Results None recorded. Procedure Notes None recorded. Medical Equipment None Reported. Allergies Allergen ID Allergen Name Allergen Category Reaction Reaction Severity Criticality Documentation Date Start Date Code Code System Note Provider Name and Address Organization Details Recorded Time 287001 morphine sulfate medicatio n Not available Not available Not available 03/31/20162014 92761 RxNorm Comme nt: Creat ed By: Holley buckCre ated Date: 2014 10:23 :41 AM; Not Available [facility] 03:55:38 389469 cefdinir medicatio n Not available Not available Not available 10/06/2020 46763 RxNorm Jacqueline Lora [facility] 15:59:52 Medications Name Sig Start Date Stop [...] Hep A, adult 8 completed Not Available [facility] 03/05/2025 11:56:18 Tdap 8 completed Not Available [facility] 03/05/2025 11:56:18 Influenza, split virus, quadrivalent, PF 8 completed Not Available [facility] 03/05/2025 11:56:18 pneumococcal polysaccharide PPV23 9 completed Not Available [facility] 03/05/2025 11:56:18 Hep A, adult 9 completed Not Available [facility] 03/05/2025 11:56:18 Influenza, split virus, quadrivalent, PF 9 completed Not Available [facility] 03/05/2025 11:56:18 Influenza, recombinant, quadrivalent, PF 0 completed Not Available [facility] 03/05/2025 11:56:18 COVID-19, mRNA, LNP-S, PF, 100 mcg/0.5mL dose or 50 mcg/0.25mL dose 1 completed Not Available [facility] 03/05/2025 11:56:18 COVID-19, mRNA, LNP-S, PF, 100 mcg/0.5mL dose or 50 mcg/0.25mL dose 1 completed Not Available [facility] 03/05/2025 11:56:18 COVID-19, mRNA, LNP-S, PF, 100 mcg/0.5mL dose or 50 mcg/0.25mL dose 1 completed Not Available [facility] 03/05/2025 11:56:18 Influenza, split virus, quadrivalent, PF 1 completed Not Available [facility] 03/05/2025 11:56:18 Influenza, MDCK, quadrivalent, PF 2 completed Not Available [facility] 03/05/2025 11:56:18 Pneumococcal conjugate PCV20, polysaccharide EDQ434 conjugate, adjuvant, PF 2 completed Not Available [facility] 03/05/2025 11:56:18 COVID-19, mRNA, LNP-S, bivalent, PF, 50 mcg/0.5 mL or 25mcg/0.25 mL dose 2 completed Not Available [facility] 03/05/2025 11:56:18 Influenza, MDCK, quadrivalent, PF 3 completed Not Available [facility] 03/05/2025 11:56:18 Influenza, MDCK, trivalent, PF 4 completed Not Available [facility] 03/05/2025 11:56:18 Past Encounters Encounter ID Performer Location Encounter Start Date Encounter Closed Date Diagnosis/Indication Diagnosis SNOMED-CT Code Diagnosis ICD10 Code Diagnosis IMO Codes Diagnosis Note [id number] STEFANI MAYA MD OPHTH[facility]MO [address] [place] [address] 03/05/2025 08:14:27 03/05/2025 09:53:39 Artificial lens present 528728241 Z96.1 20881 stable, mr today Allergic conjunctivitis of bilateral eyes [id number] 62952 H10.13 463993 pataday/za ditor prn Nevus of right iris 6808 155816 78793 D31.41 [id number] monitor for changes1 year Health Concerns Section [...] [place] - MEDIBLUE ACCESS (MEDICARE REPLACEMENT REGIONAL O) [id number] Neetu Zavala [id number] Neetu Murillo OBGyn Episode No OBEpisode recorded.
--- OUTSIDE RECORDS SUMMARY | 2025-05-05 17:48 | XMS_ITS | Encounter Summary ---
Author Organization [employer] ([place], [place], [place], [place], [place]) Address [address] [place] [address] Care Team Providers Care Jewel Staker Name Role Phone Salima Gonzáles Primary Care Provider [phone] Encounter Details Date Type Department Care Team (Late st Contact Info) Description 10/08/2019 Transcribed Document [facility] [place] Medicine [address] [place] [address] ProviderQuincy MD [address] [place], [place] [address] Social History Tobacco Use Types Packs/Day Years [...] Kate MD - 10/08/2019 9:30 AM CDT [facility] Cristiana PreOp Summary Primary Physician: WARREN MANRIQUE MD Finalized Date/Time: 10/08/19 09:35:21 Pt. Name: AMBIKA PIERRE/Sex: 1965 Female Med Rec #: [id number] Physician: WARREN MANRIQUE MD Financial #: [id number] Pt. Type: O Room/Bed: / Admit/Disch: 10/08/19 08:47:00 - Institution: [facility] Cristiana PreOp Case Times Entry 1 In Preop 10/08/19 09:08:00 Ready for Holding n/a Room Patient Ready for n/a Surgery Patient Out of Preop 10/08/19 09:33:00 Patient Out of n/a Holding Room Last Modified By: Whitney Huynh Rn 10/08/19 09:35:13 [facility] Endo PreOp Case Times Audit 10/08/19 09:35:13 Brick Tender: STUART Modifier: HEATHERLAWRENCE <+> 1 Patient Out of Preop Finalized By: Whitney Huynh Rn Document Signatures Signed By: Whitney Huynh Rn 10/08/19 09:35 Electronically signed by [place] [facility] Conversion University Relations Recruiter Cerner at 08/23/2022 10:54 AM CDT documented in this encounter Plan of Treatment Not on file documented as of this encounter Visit Diagnoses Not on filedocumented in this encounter Care Teams Jewel Staker Relationship Specialty Start Date End Date Salima Gonzáles, [address] [facility] [address] [place] [address] PCP - General Family Medicine 02/09/23 documented as of this encounter
--- OUTSIDE RECORDS SUMMARY | 2025-05-05 17:48 | XMS_ITS | Encounter Summary ---
Author Organization [employer] ([place], [place], [place], [place], [place]) Address [address] [place] [address] Care Team Providers Care Roller Coaster Designer Name Role Phone Salima Gonzáles Primary Care Provider Encounter Details Date Type Department Care Team (Late st Contact Info) Description 10/04/2020 Transcribed Document [facility] [place] [address] [place] [address] ProviderQuincy MD [address] [place], [place] [id number] Social History Tobacco Use Types Packs/Day Years Used Date Smoking Tobacco: Never Assessed Comments Unknown Sex and Gender Information Value Date Recorded Sex Assigned at Not on file Legal Sex Female 2:54 PM CDT Gender Identity Not on file Sexual Orientation Not on file documented as of this encounter Miscellaneous Notes * [employer]ner Conversion Note - Quincy ProviderMD - 10/04/2020 1:16 PM CDT [facility] Main OR IntraOp Summary Primary Physician: ANNABEL ZAMBRANO MD-URO Finalized Date/Time: 10/10/20 09:57:38 Pt. Name: AMBIKA PIERRE./Sex: 1965 Female Med Rec #: [id number] Physician: SUREKHA ARGUELLES MD Financial #: [id number] Pt. Type: I Room/Bed: [facility]/1 Admit/Disch: 10/03/20 18:06:00 - 10/05/20 16:59:00 Institution: [facility] IntraOp Case Attendance Entry 1 Entry 2 Entry 3 Case Attendee ANNABEL ZAMBRANO MD-URO Neha Duarte, Mendel Pierce RN Role Performed Surgeon/Proceduralist, Log Rider, First Log Rider, Second First Time In 10/04/20 13:03:00 10/04/20 13:03:00 10/04/20 13:03:00 Time Out 10/04/20 13:54:00 10/04/20 13:54:00 10/04/20 13:54:00 Procedure Ureteroscopy(Left) Ureteroscopy(Left) Ureteroscopy(Left) Other Attendee LASER Superficial Wound Closed By: Last Modified By: Neha Duarte Rn Moore, Kimberly A, Rn Moore, Kimberly A, Rn 10/04/20 13:54:29 10/04/20 13:54:29 10/04/20 13:54:29 Entry 4 Entry 5 Case Attendee Prema Rojas, VERONICA AU MD-ANS Bed Teacher Role Performed Scrub, First Anesthesiologist Time In 10/04/20 13:03:00 10/04/20 13:03:00 Time Out 10/04/20 13:54:00 10/04/20 13:54:00 Procedure Ureteroscopy(Left) Ureteroscopy(Left) Other Attendee Superficial Wound Closed By: Last Modified By: Neha Duarte Rn Moore, Kimberly A, Rn 10/04/20 13:54:29 10/04/20 13:54:29 [facility] IntraOp Case Attendance Audit 10/04/20 13:54:29 Renewal Specialist: [id number] Modifier: [id number] 1 <+> Time Out 1 <*> Procedure Ureteroscopy(Left) 2 <+> Time Out 2 <*> Procedure Ureteroscopy(Left) 3 <+> Time Out 3 <*> Procedure Ureteroscopy(Left) 4 <+> Time Out 4 <*> Procedure Ureteroscopy(Left) 5 <+> Time Out 5 <*> Procedure Ureteroscopy(Left) 10/04/20 13:43:04 Renewal Specialist: [id number] Modifier: [id number] <+> 1 Time In <+> 1 Procedure 2 <+> Time In 2 <*> Procedure Ureteroscopy(Left) 3 <+> Time In 3 <*> Procedure Ureteroscopy(Left) 4 <+> Time In 4 <*> Procedure Ureteroscopy(Left) 5 <+> Time In 5 <*> Procedure Ureteroscopy(Left) [facility] IntraOp Case Times Entry 1 Patient In Room Time 10/04/20 13:03:00 Out Room Time 10/04/20 13:54:00 Anesthesia Start Time 10/04/20 13:03:00 Stop Time 10/04/20 13:54:00 Surgery / Procedure Times Start Time 10/04/20 13:16:00 Stop Time 10/04/20 13:47:00 Last Modified By: Neha Duarte Rn 10/04/20 13:54:29 [facility] IntraOp Case Times Audit 10/04/20 13:54:29 Renewal Specialist: [id number] Modifier: [id number] <+> 1 Out Room Time <+> 1 Stop Time 10/04/20 13:48:00 Renewal Specialist: [id number] Modifier: [id number] <+> 1 Stop Time [facility] IntraOp Departure from OR Entry 1 Integumentary Assessment Integumentary WDL Assessment WDL Transfer/Handoff Transfer to PACU Phase I Handoff Method Bedside/Face to face, Phone call, Online nursing summary Post-op Transport Stretcher/rney Via Patient Transport Neha Duarte Rn, Accompanied by VERONICA AU MD-ANS Last Modified By: Neha Duarte Rn 10/04/20 13:38:09 [facility] IntraOp Fire Risk Assessment Entry 1 Fire [...] Modified By: Neha Duarte Rn 10/04/20 13:38:19 [facility] IntraOp General Case Merchandise Pickup/Receiving Associate 1 Case Information OR Cysto 01 [facility] Case Level 1 Room Verified Yes Wound Class II - Clean-Contaminated Specialty Urology Anesthesia Type General ASA Class 3E Diagnosis Preop Diagnosis LEFT RENAL STONE Postop Same As Preop No Postop Diagnosis SEE MD POST OP NOTES Last Modified By: Neha Duarte Rn 10/04/20 13:41:52 [facility] IntraOp Implant Log Entry 1 Type Implant (Synthetic) Implant Log Implant Type Other Implant STENT URET BRAID + Identification [id number] Description Implant Quantity 1 Implant Site LEFT URETER Implant [place] Identification Sci:Urology/Gynecology Web Operations Lead Name: Implant [id number] Identification Catalog Number Implant Expiration 03/25/23 Date Tissue Implant Last Modified By: Neha Duarte Rn 10/04/20 13:44:42 [facility] IntraOp Intraoperative Assessment Entry 1 Handoff Method [...] Modified By: Neha Duarte Rn 10/04/20 13:42:00 [facility] IntraOp Patient Positioning Entry 1 Procedure Ureteroscopy(Left) [...] Modified By: Neha Duarte Rn 10/04/20 13:42:19 [facility] IntraOp Sign In Entry 1 Patient, Site, [...] Modified By: Neha Duarte Rn 10/04/20 13:42:22 [facility] IntraOp Sign Out Entry 1 RN Confirmation [...] Modified By: Neha Duarte Rn 10/04/20 13:42:31 [facility] IntraOp Skin Prep Entry 1 Procedure Ureteroscopy(Left) Prescribed N/A Pre-Surgical Prep Completed Prep Area genitalia Intraop Prep Integumentary WDL Assessment WDL Prep Agents Betadine solution Prep by Mendel Borrego RN Hair Removal Methods No hair removal performed Last Modified By: Neha Duarte Rn 10/04/20 13:42:55 [facility] Intra Surgical Procedures Entry 1 Procedure Ureteroscopy Modifiers Left Additional URETEROSCOPY WITH LASER Procedure LEFT Description Primary Procedure Yes Primary Surgeon ANNABEL ZAMBRANO MD-URO Start 10/04/20 13:16:00 Stop 10/04/20 13:47:00 Anesthesia Type General Specialty Urology Wound Class II - Clean-Contaminated Last Modified By: Neha Duarte Rn 10/04/20 13:48:02 [facility] Intra Surgical Procedures Audit 10/04/20 13:48:02 Renewal Specialist: [id number] Modifier: [id number] <+> 1 Stop [facility] IntraOP Time Out Entry 1 Procedure to [...] WATTSDR Correct Billing Electronically signed by [place] [facility] Conversion Recruiting Coordinator Cerner at 08/23/2022 11:10 AM CDT documented in this encounter Plan of Treatment Not on file documented as of this encounter Visit Diagnoses Not on filedocumented in this encounter Care Teams Roller Coaster Designer Relationship Specialty Start Date End Date Salima Gonzáles, [address] [facility] [address] [place] [address] PCP - General Family Medicine 02/09/23 documented as of this encounter
--- OUTSIDE RECORDS SUMMARY | 2025-05-05 17:48 | XMS_ITS | Encounter Summary ---
Author Organization [employer] ([place], [place], [place], [place], [place]) Address [address] [place] [address] Care Team Providers Care Ferryboat Deckhand Name Role Phone Anujlizbet Salima Tate SWANN Primary Care Provider [phone] Encounter Details Date Type Department Care Team (Late st Contact Info) Description 10/04/2020 Transcribed Document [facility] [place] [address] [place] [address] ProviderQuincy MD [address] [place], [place] [address] Social History Tobacco Use Types Packs/Day Years [...] Numbers : Insurance 1 Health Plan: [facility] MEDIC[facility] REPL Policy Number: [id number] Authorization Number: Insurance Primary Name : [place] MEDICARE REPL Policy Number: [id number] Authorization Status-Primary : Awaiting callback Reference Number-Primary : [id number] Authorized Service Begin Date-Primary : 10/03/2020 EDT Authorization Comments-Primary : Clinicals submitted via [employer] for IP approval Historical Authorization Comments-Primary : No Authorization Comments Found DEISY LIRA, RN - 10/04/2020 8:24 EDT documented in this encounter Plan of Treatment Not on file documented as of this encounter Visit Diagnoses Not on filedocumented in this encounter Care Teams Ferryboat Deckhand Relationship Specialty Start Date End Date Salima Gonzáles, 8 [facility] [address] [place] [address] PCP - General Family Medicine 02/09/23 documented as of this encounter
--- OUTSIDE RECORDS SUMMARY | 2025-05-05 17:48 | XMS_ITS | Encounter Summary ---
Author Organization [employer] ([place], [place], [place], [place], [place]) Address [address] [place] [address] Care Team Providers Care Structural Steel Detailer Name Role Phone Salima Gonzáles Primary Care Provider [phone] Encounter Details Date Type Department Care Team (Late st Contact Info) Description 10/04/2020 Transcribed Document [facility] [place] [address] [place] [address] ProviderQuincy MD [address] [place], [place] [id number] Social History Tobacco Use Types Packs/Day Years Used Date Smoking Tobacco: Never Assessed Comments Unknown Sex and Gender Information Value Date Recorded Sex Assigned at Not on file Legal Sex Female 2:54 PM CDT Gender Identity Not on file Sexual Orientation Not on file documented as of this encounter Miscellaneous Notes * Cerner Conversion Note - Quinyc ProviderMD - 10/04/2020 2:23 PM CDT Pain [...] on filedocumented in this encounter Care Teams Structural Steel Detailer Relationship Specialty Start Date End Date Salima Gonzáles DO [address] [id number] PCP - General Family Medicine 02/09/23 documented as of this encounter
--- OUTSIDE RECORDS SUMMARY | 2025-05-05 17:48 | XMS_ITS | Encounter Summary ---
Author Organization [employer] ([place], [place], [place], [place], [place]) Address [address] [place] [address] Care Team Providers Care Cardiology Tech Name Role Phone Salima Gonzáles Primary Care Provider [phone] Encounter Details Date Type Department Care Team (Late st Contact Info) Description 10/08/2019 Transcribed Document [facility] [place] [address] [place] [address] ProviderQuincy MD 123 [place], [place] [address] Social History Tobacco Use Types Packs/Day Years [...] - 10/08/2019 9:47 AM CDT [facility] Endo IntraOp Summary Primary Physician: WARREN MANRIQUE MD Finalized Date/Time: 10/08/19 10:06:04 Pt. Name: AMBIKA PIERRE/Sex: 1965 Female Med Rec #: [id number] Physician: WARREN MANRIQUE MD Financial #: [id number] Pt. Type: O Room/Bed: / Admit/Disch: 10/08/19 08:47:00 - Institution: [facility] Endo - Case Attendance Entry 1 Entry 2 Entry 3 Case Attendee HILARIA, MD ARON KELLEY JEANNIE Thayer, Dena, DIANE Role Performed Surgeon/Proceduralist, Scrub, Regulatory Technician, First First Time In 10/08/19 09:38:00 [...] DAKOTA Amaya MD-ANS Role Performed Scrub, First ALLERGY SPECIALIST/Nurse Sociology Adjunct Instructor Anesthesiologist of Record Time In 10/08/19 09:38:00 10/08/19 09:38:00 10/08/19 09:38:00 Time Out 10/08/19 10:06:00 10/08/19 10:06:00 10/08/19 10:06:00 Procedure Gastric Biopsy, Colon Gastric Biopsy, Colon Gastric Biopsy, Colon Biopsy Biopsy Biopsy Other Attendee Superficial Wound Closed By: Last Modified By: Elizabeth Anaya, Elizabeth Schilling, Elizabeth Schilling RN 10/08/19 10:03:23 10/08/19 10:03:23 10/08/19 10:03:23 [facility] Endo - Case Attendance Audit 10/08/19 10:03:23 Label Printer: [id number] Modifier: [id number] 1 <+> Time Out 1 <*> Procedure [...] Procedure Gastric Biopsy, Colon Biopsy 10/08/19 10:02:21 Label Printer: [id number] Modifier: [id number] 1 <*> Procedure Esophagogastroduodenoscopy, Colonoscopy, Gastric Biopsy 2 <*> Procedure Gastric Biopsy 3 <*> Procedure Gastric Biopsy 4 <*> Procedure Gastric Biopsy 5 <*> Procedure Gastric Biopsy 6 <*> Procedure Gastric Biopsy 10/08/19 09:50:05 Label Printer: [id number] Modifier: [id number] 1 <*> Procedure Esophagogastroduodenoscopy, Colonoscopy <+> 2 Procedure <+> 3 Procedure <+> 4 Procedure <+> 5 Procedure <+> 6 Procedure 10/08/19 09:39:56 Label Printer: [id number] Modifier: [id number] 1 <+> Time In 1 <*> Procedure Esophagogastroduodenoscopy, Colonoscopy <+> 2 Time In <+> 3 Time In <+> 4 Time In <+> 5 Time In <+> 6 Time In 10/08/19 09:31:42 Label Printer: [id number] Modifier: [id number] <+> 2 Case Attendee <+> 2 Role Performed <+> 3 Case Attendee <+> 3 Role Performed <+> 4 Case Attendee <+> 4 Role Performed <+> 5 Case Attendee <+> 5 Role Performed <+> 6 Case Attendee <+> 6 Role Performed [facility] End[facility] - Case times Entry 1 Patient In Room Time 10/08/19 09:38:00 Out Room Time 10/08/19 10:06:00 Anesthesia Start Time 10/08/19 09:38:00 Stop Time 10/08/19 10:06:00 Surgery / Procedure Times Start Time 10/08/19 09:47:00 Stop Time 10/08/19 10:03:00 Last Modified By: Elizabeth Anaya RN 10/08/19 10:03:21 [facility] Endo - Case times Audit 10/08/19 10:03:21 Label Printer: [id number] Modifier: [id number] <+> 1 Out Room Time <+> 1 Stop Time <+> 1 Stop Time 10/08/19 09:47:20 Label Printer: [id number] Modifier: [id number] <+> 1 Start Time [facility] Endo - Cultures and Spec Summary Entry 1 Cultrures and Specimens Specimen Ordered: Yes Test(s) Routine/Path-Lab Requested/Final Disposition Last Modified By: Elizabeth Anaya RN 10/08/19 09:50:17 [facility] Endo - Delays Entry 1 Delay Reason No Delay Duration 0 Minute(s) Last Modified By: Elizabeth Anaya RN 10/08/19 09:32:22 [facility] Endo - Departure from OR Entry 1 Integumentary Assessment Integumentary WDL Assessment WDL Transfer/Handoff Transfer to PACU Phase I Handoff Method Bedside/Face to face Post-op Transport Stretcher/Gurney Via Patient Transport Claudia Dupree Crna Accompanied by Last Modified By: Elizabeth Anaya RN 10/08/19 09:32:45 [facility] Endo - Endoscopy Details Entry 1 Abdomen Procedure Soft, Non-Tender Assessment Procedure Abdomen 10/08/19 09:32:00 Assessment D/T Radio Frequency Ablation Abdominal Pressure Last Modified By: Elizabeth Anaya RN 10/08/19 09:32:34 [facility] Endo - Fire Risk Assessment Entry 1 Fire Info Surgical Site or 1- Yes Incision Above the Xyphoid Open O2 Source 1- Yes (Mask or Cannula) Available Ignition 1- Yes (ESU, Laser, Light Source) Fire Risk 3 Assessment Score Fire Score Fire Risk Yes Assessment Complete Fire Risk Elizabeth Anaya, a operator Verified By Fire Risk 10/08/19 09:32:00 Assessment Verified Date/Time Fire Risk High Risk Protocol Yes Implemented Standard Fire Yes Safety Precautions Followed Last Modified By: Elizabeth Anaya RN 10/08/19 09:33:30 [facility] Endo - Fire Risk Assessment Audit 10/08/19 09:33:30 Label Printer: [id number] Modifier: [id number] <+> 1 Fire Risk Assessment Complete [facility] Endo - General Case Rotary Veneer Machine Operator 1 Case Information OR Endo 03 [facility] Case Level 1 Room Verified Yes Wound Class III - Contaminated Specialty SN Gastroenterology Anesthesia Type General ASA Class 4 Diagnosis Preop Diagnosis dyspepsia, change in bowel habits Postop Same As Preop No Postop Diagnosis Chronic gastritis, history gastric bypass Last Modified By: Elizabeth Anaya RN 10/08/19 09:52:07 [facility] Endo - General Case Data Audit 10/08/19 09:52:07 Label Printer: [id number] Modifier: [id number] 1 <*> Postop Same As Preop Yes 1 <*> Postop Diagnosis dyspepsia, change in bowel habits 10/08/19 09:43:44 Label Printer: [id number] Modifier: [id number] 1 <*> Preop Diagnosis R19.7 R10.9 1 <*> Postop Diagnosis R19.7 R10.9 [facility] Endo - Intraoperative Assessment Entry 1 Valid History / Yes Physical in Chart Preoperative Yes Checklist Reviewed/Evaluated Patient is Latex No Sensitive Level of WDL Consciousness (WDL = Alert, Oriented to Person, Place, and Time) Last Modified By: Elizabeth Anaya RN 10/08/19 09:33:43 [facility] Endo - Intraoperative Equipment Entry 1 Equipment Intraop Monitoring Electrocardiogram Three lead placement (ECG) Electrode Placement Blood Pressure Arm, left upper Location Pulse Oximeter Hand, right Probe Site Antiembolic Devices Scopes Flexible Endoscopes Gastroscope Used Scope Serial E O Number/Identificatio n Number Photo/Video Documentation Photo Yes Video No Last Modified By: Elizabeth Anaya RN 10/08/19 09:43:26 [facility] Endo - Patient Positioning Entry 1 [...] Elizabeth Anaya RN 10/08/19 10:02:22 [facility] Endo - Patient Positioning Audit 10/08/19 10:02:22 Label Printer: [id number] Modifier: [id number] 1 <*> Procedure Esophagogastroduodenoscopy, Gastric Biopsy 10/08/19 09:50:05 Label Printer: [id number] Modifier: [id number] 1 <*> Procedure Esophagogastroduodenoscopy [facility] Endo - Sign In Entry 1 Patient, Site, Yes Procedure Identified Surgical Consent Yes Confirmed Surgical Site N/A Marked by person performing procedure Airway Hypothermia Risk No Warming Measures No Taken Last Modified By: Elizabeth Anaya RN 10/08/19 09:34:14 [facility] Endo - Sign Out Entry 1 [...] Elizabeth Anaya RN 10/08/19 10:04:03 [facility] Endo - Surgical Procedures Entry 1 [...] Elizabeth Anaya RN 10/08/19 10:03:34 [facility] Endo - Surgical Procedures Audit 10/08/19 10:03:34 Label Printer: [id number] Modifier: [id number] 2 <*> Procedure Colonoscopy 2 <+> Stop <+> 4 Stop 10/08/19 10:02:18 Label Printer: [id number] Modifier: [id number] 2 <*> Procedure Colonoscopy 2 <*> Start 10/08/19 09:47:00 2 <+> Physician States Cecum Reached <+> 4 Procedure <+> 4 Primary Procedure <+> 4 Primary Surgeon <+> 4 Specialty <+> 4 Start <+> 4 Wound Class <+> 4 Anesthesia Type <+> 4 Additional Procedure Description <+> 4 Physician States Cecum Reached 10/08/19 09:51:41 Label Printer: [id number] Modifier: [id number] <*> Procedure Gastric Biopsy 3 <+> Stop 10/08/19 09:50:35 Label Printer: [id number] Modifier: [id number] 1 <*> Procedure Esophagogastroduodenoscopy 1 <+> Stop 10/08/19 09:50:01 Label Printer: [id number] Modifier: [id number] 1 <*> Procedure Esophagogastroduodenoscopy 1 <+> Start 1 <+> Additional Procedure Description <+> 2 Start <+> 3 Procedure <+> 3 Primary Procedure <+> 3 Primary Surgeon <+> 3 Specialty <+> 3 Start <+> 3 Wound Class <+> 3 Anesthesia Type <+> 3 Additional Procedure Description [facility] Endo - Time Out Entry 1 [...] Elizabeth Anaya RN 10/08/19 10:02:22 [facility] Endo - Time Out Audit 10/08/19 10:02:22 Label Printer: [id number] Modifier: [id number] 1 <*> Procedure to be Performed Esophagogastroduodenoscopy, Colonoscopy, Gastric Biopsy 10/08/19 09:50:06 Label Printer: [id number] Modifier: [id number] 1 <*> Procedure to be Performed Esophagogastroduodenoscopy, Colonoscopy Case Comments <None> Finalized By: Elizabeth Anaya, RN Document Signatures Signed By: Elizabeth Anaya, RN 10/08/19 10:06 Electronically signed by [facility] Conversion Client Application Support Specialist Cerner at 08/23/2022 10:56 AM CDT documented in this encounter Plan of Treatment Not on file documented as of this encounter Visit Diagnoses Not on filedocumented in this encounter Care Teams Cardiology Tech Relationship Specialty Start Date End Date Salima Gonzáles, DO 8 [facility] [address] [place] [address] PCP - General Family Medicine 02/09/23 documented as of this encounter
--- OUTSIDE RECORDS SUMMARY | 2025-05-05 17:48 | XMS_ITS | Encounter Summary ---
Author Organization [employer] ([place], [place], [place], [place], [place]) Address [address] [place] [address] Care Team Providers Care Reptile Keeper Name Role Phone Salima Gonzáles DO Primary Care Provider [phone] Encounter Details Date Type Department Care Team (Late st Contact Info) Description 10/08/2019 Transcribed Document [facility] [place] [address] [place] [address] ProviderQuincy MD 123 [place], [place] [id number] Social History Tobacco Use Types Packs/Day Years [...] serving. ??? Talk with a diet and pathology specialist (dietitian) if you have questions about [...] Bulgur wheat. Millet. Quinoa. Bran muffins. Popcorn. [place] wafer crackers. Meats and other proteins [place], kidney, and cox beans. Soybeans. Split peas. [...] Cream cheese. Sour cream. Fats and oils [place]. Beverages Soft drinks. Other foods Cakes and [...] 04/23/2006 Document Revised: 02/25/2018 Document Reviewed: 02/25/2018 [employer] Interactive Patient Education ? 2019 [employer]. Gastritis, Adult Gastritis is swelling (inflammation) of [...] these instructions at home: Medicines ??? Take eqbt-chb-igveitq and prescription medicines only as told by [...] 10/09/2008 Document Revised: 09/10/2018 Document Reviewed: 09/10/2018 [employer] Interactive Patient Education ? 2019 [employer]. [...] you start to feel better. ??? Take nmqg-erf-iajejjz and prescription medicines only as told by [...] 05/31/2005 Document Revised: 10/24/2018 Document Reviewed: 10/24/2018 [employer] Interactive Patient Education ? 2019 [employer]. Hemorrhoids Hemorrhoids are swollen veins that [...] times a day. General instructions ??? Take euyf-udl-nkzaard and prescription medicines only as told by [...] 01/30/2009 Document Revised: 09/12/2018 Document Reviewed: 09/12/2018 [employer] Interactive Patient Education ? 2019 [employer]. Colonoscopy, Adult, Care After This sheet [...] soft and easy to digest. ??? Take qkck-ziz-ffgnnmi or prescription medicines only as told by [...] 05/26/2011 Document Revised: 02/21/2018 Document Reviewed: 01/15/2017 [employer] Interactive Patient Education ? 2019 [employer]. Esophagogastroduodenoscopy, Care After Refer to this [...] 04/09/2013 Document Revised: 09/28/2016 Document Reviewed: 03/16/2016 [employer] Interactive Patient Education ? 2019 [employer]. documented in this encounter Plan of Treatment Not on file documented as of this encounter Visit Diagnoses Not on filedocumented in this encounter Care Teams Reptile Keeper Relationship Specialty Start Date End Date Salima Gonzáles DO 8 [facility] [address] [place] [address] PCP - General Family Medicine 02/09/23 documented as of this encounter
--- OUTSIDE RECORDS SUMMARY | 2025-05-05 17:48 | XMS_ITS | Encounter Summary ---
Author Organization [employer] ([place], [place], [place], [place], [place]) Address [address] [place] [address] Care Team Providers Care Rail Bonder Name Role Phone Salima Gonzáles DO Primary Care Provider [phone] Encounter Details Date Type Department Care Team (Late st Contact Info) Description 10/06/2020 Transcribed Document [facility] [place] [facility] [place] [address] ProviderQuincy MD [address] [place] [address] Social History Tobacco Use Types Packs/Day Years [...] On: 10/06/2020 19:03 EDT by Jacque Ledezma BOAT CAPTAIN [facility] Provider Status : EST Other Established Provider Name : Dr. [facility] Patient Phone Number : [phone] Patient Insurance Type : Medicare Source of [...] at ED : Other Primary Language : Swiss [facility] Comment : Scheduled hosptial f/u appts with PCP & Urology. Advised pt of appt information via telephone. Mailed appt reminders. Faxed H&P to PCP's office. Emailed appt information to shoe parts caser. Follow Up Needed : No Jacque Ledezma, BOAT CAPTAIN - 10/06/2020 19:03 EDT documented in this encounter Plan of Treatment Not on file documented as of this encounter Visit Diagnoses Not on filedocumented in this encounter Care Teams Rail Bonder Relationship Specialty Start Date End Date Salima Gonzáles, 8 [facility] [address] [place] [phone] PCP - General Family Medicine 02/09/23 documented as of this encounter
--- OUTSIDE RECORDS SUMMARY | 2025-05-05 17:48 | XMS_ITS | Encounter Summary ---
Author Organization [employer] ([place], [place], [place], [place], [place]) Address [address] [place] [address] Care Team Providers Care Supportive Employment Case Manager Name Role Phone Salima Gonzáles Primary Care Provider [phone] Encounter Details Date Type Department Care Team (Late st Contact Info) Description 10/08/2019 Transcribed Document [facility] [place] [address] [place] [address] ProviderQuincy MD [address] [place] [address] Social History Tobacco Use Types Packs/Day Years [...] 9:47 AM CDT [facility] Endo PACU Summary Primary Physician: WARREN MANRIQUE MD Finalized Date/Time: 10/08/19 10:47:05 Pt. Name: AMBIKA PIERRE/Sex: 1965 Female Med Rec #: [id number] Physician: WARREN MANRIQUE MD Financial #: [id number] Pt. Type: O Room/Bed: / Admit/Disch: 10/08/19 08:47:00 - Institution: [facility] PACU Case Times Entry 1 In PACU I 10/08/19 10:09:00 Ready for PACU 10/08/19 10:42:00 Discharge Discharge from PACU 10/08/19 10:45:00 I Last Modified By: Yasmine Al RN 10/08/19 10:43:05 [facility] Endo PACU Case Times Audit 10/08/19 10:45:09 Software Licensing Analyst: [id number] Modifier: [id number] <+> 1 Discharge from PACU I Finalized By: Yasmine Al RN Document Signatures Signed By: Yasmine Al RN 10/08/19 10:47 Electronically signed by [facility] Conversion Rubber Boots And Shoes Repairer Cerner at 08/23/2022 10:59 AM CDT documented in this encounter Plan of Treatment Not on file documented as of this encounter Visit Diagnoses Not on filedocumented in this encounter Care Teams Supportive Employment Case Manager Relationship Specialty Start Date End Date Salima Gonzáles DO 8 [facility] [address] [place] [address] PCP - General Family Medicine 02/09/23 documented as of this encounter
--- OUTSIDE RECORDS SUMMARY | 2025-05-05 17:48 | XMS_ITS | Encounter Summary ---
Author Organization [employer] ([place], [place], [place], [place], [place]) Address [address] [place] [address] Care Team Providers Care Ore Grader Name Role Phone Salima Gonzáles Primary Care Provider Encounter Details Date Type Department Care Team (Late st Contact Info) Description 10/04/2020 Transcribed Document [facility] [place] Family Medicine [address] [place] [address] ProviderQuincy MD 123 [place], [place] [id number] Social History Tobacco Use Types Packs/Day Years Used Date Smoking Tobacco: Never Assessed Comments Unknown Sex and Gender Information Value Date Recorded Sex Assigned at Not on file Legal Sex Female 2:54 PM CDT Gender Identity Not on file Sexual Orientation Not on file documented as of this encounter Miscellaneous Notes * Cerner Conversion Note - Historical ProviderMD - 10/04/2020 2:00 AM CDT [employer] Details Entered On: 10/04/2020 4:12 EDT Performed [...] on filedocumented in this encounter Care Teams Ore Grader Relationship Specialty Start Date End Date Salima Gonzáles DO [address] [address] PCP - General Family Medicine 02/09/23 documented as of this encounter
--- OUTSIDE RECORDS SUMMARY | 2025-05-05 17:48 | XMS_ITS | Clinical Summary ---
Author Organization [facility] [place] [address] Care Team Providers Care Sponge Clipper Name Role Phone Unavailable Primary Care Provider [...]
--- OUTSIDE RECORDS SUMMARY | 2025-05-05 17:48 | XMS_ITS | Encounter Summary ---
Author Organization [employer] ([place], [place], [place], [place], [place]) Address [address] [place] [address] Care Team Providers Care Fund Accountant Name Role Phone Salima Gonzáles Tate SWANN Primary Care Provider [phone] Encounter Details Date Type Department Care Team (Late st Contact Info) Description 10/13/2020 Transcribed Document [facility] [place] Family Medicine [address] [place] [address] ProviderQuincy MD [address] [place], [place] [phone] Social History Tobacco Use Types Packs/Day Years [...] : Insurance 1 Health Plan: [facility] MEDICARE REPL Policy Number: [id number] Authorization Number: Insurance Primary Name : [facility] MEDICARE REPL Policy Number: [id number] Authorization Status-Primary : Denied Reference Number-Primary : [id number] Authorized Service Begin Date-Primary : 10/03/2020 EDT Authorization Comments-Primary : Email to Hemalatha/MOSHE Historical Authorization Comments-Primary : Comment 1: Rec fax from Sara 10/12/20 States admission has been denied. Fax to Jacque Tabor (TEMI LAMBERT, Pen Tender 10/12/2020 14:42) Comment 2: Per Jinny remains [...] on filedocumented in this encounter Care Teams Fund Accountant Relationship Specialty Start Date End Date Salima Gonzáles, 8 [facility] [address] [place] [address] PCP - General Family Medicine 02/09/23 documented as of this encounter
--- OUTSIDE RECORDS SUMMARY | 2025-05-05 17:48 | XMS_ITS | Encounter Summary ---
Author Organization [employer] ([place], [place], [place], [place], [place]) Address [address] [place] [address] Care Team Providers Care City Superintendent Name Role Phone Salima Gonzáles Tate SWANN Primary Care Provider [phone] Encounter Details Date Type Department Care Team (Late st Contact Info) Description 10/05/2020 Transcribed Document [facility] [place] Family Medicine [address] [place] [address] ProviderQuincy MD [address] [place], [place] [address] Social History Tobacco Use Types Packs/Day Years Used Date Smoking Tobacco: Never Assessed Comments Unknown Sex and Gender Information Value Date Recorded Sex Assigned at Not on file Legal Sex Female 2:54 PM CDT Gender Identity Not on file Sexual Orientation Not on file documented as of this encounter Miscellaneous Notes * Cerner Conversion Note - Historical ProviderMD - 10/05/2020 2:00 AM CDT [employer] Details Entered On: 10/05/2020 3:28 EDT Performed [...] Janae Avery LPN - 10/05/2020 3:28 EDT Electronically signed by Nuzhat Barahona Conversion Industrial Engineering Technician Cerner at 08/23/2022 11:01 AM CDT documented in this encounter Plan of Treatment Not on file documented as of this encounter Visit Diagnoses Not on filedocumented in this encounter Care Teams City Superintendent Relationship Specialty Start Date End Date Salima Gonzáles DO 8 [facility] [address] [place] [address] PCP - General Family Medicine 02/09/23 documented as of this encounter
--- OUTSIDE RECORDS SUMMARY | 2025-05-05 17:48 | XMS_ITS | Encounter Summary ---
Author Organization [employer] ([place], [place], [place], [place], [place]) Address [address] [place] [address] Care Team Providers Care Counselor Supervisor Name Role Phone Salima Gonzáles DO Primary Care Provider Encounter Details Date Type Department Care Team (Late st Contact Info) Description 10/05/2020 Transcribed Document [facility] [place] Family Medicine [address] [place] [address] ProviderQuincy MD [address] [place] [address] Social History Tobacco Use Types Packs/Day Years [...] On: 10/05/2020 13:56 EDT by EVONNE GABRIEL, DIANE-Office Clin Asst Initial Assessment I Previously Documented Living Environment [...] Is Guardianship Needed : No EVONNE GABRIEL RN-Office Clin Asst - 10/05/2020 13:56 EDT Initial Assessment II Sensory and Motor Deficits : None Current Home Treatments and Equipment : Nebulizer Services and Community Resources : Home Health (Comment: Pt states that she has used a couple of HH agencies in the past after her knee replacement [EVONNE GABRIEL RN-Office Clin Asst - 10/05/2020 13:56 EDT] ) Services and Community Resources Addl Comments : Signature of Nayeli nath 8-9 years ago after knee replacement EVONNE GABRIEL RN-Office Clin Asst - 10/05/2020 13:56 EDT Discharge Needs I Anticipated Discharge Date : 10/05/2020 EDT Anticipated Discharge To, CM : Home independently Current Home Treatment/Equipment : Current Home Treatment/Equipment No qualifying data available. Post Acute/Home Treatments : None Documentation Status Complete : Yes EVONNE GABRIEL RN-Office Clin Asst - 10/05/2020 13:56 EDT Discharge Needs II Professional Skilled Services : Professional Skilled Services No qualifying data available. Needs Assistance with Transportation : No EVONNE GABRIEL RN-Office Clin Asst - 10/05/2020 13:56 EDT Narrative Note Narrative Note : Received from [facility] to here due to kidney stone. Urology consulted. Pt had ureteroscopy, laser lithotripsy with stent placement. Met with Pt at the bedside. Role of CM explained. Pt states that she is ADL independent, lives home alone. Plans are to return home when discharged. No needs antcipated/verbalized at this time. RRS is low @ 37, boost 5. CM will follow. EVONNE GABRIEL RN-Office Clin Asst - 10/05/2020 13:56 EDT documented in this encounter Plan of Treatment Not on file documented as of this encounter Visit Diagnoses Not on filedocumented in this encounter Care Teams Counselor Supervisor Relationship Specialty Start Date End Date Salima Gonzáles, DO [address] [facility] [address] [place] [address] PCP - General Family Medicine 02/09/23 documented as of this encounter
--- OUTSIDE RECORDS SUMMARY | 2025-05-05 17:48 | XMS_ITS | Encounter Summary ---
Author Organization [employer] ([place], [place], [place], [place], [place]) Address [address] [place] [address] Care Team Providers Care Felt Cutter Name Role Phone Salima Mi DO Primary Care Provider [phone] Encounter Details Date Type Department Care Team (Late st Contact Info) Description 10/05/2020 Transcribed Document [facility] [place] Family Medicine [address] [place] [address] ProviderQuincy MD [address] [place] [address] Social History Tobacco Use Types Packs/Day [...] Kate MD - 10/05/2020 4:12 PM CDT [facility] [place] [address] AMBIKA PIERRE :1965 Visit Time:10/03/2020 [...] instructions with you. Where: [address] [place] [address]- Follow Up with ANNABEL ZAMBRANO MD-URO When Within 3 months Comments For kidney stone follow up. Call for follow up appointment. Bring discharge instructions with you. Bring Ins Card, Photo ID, Ins Co-pay. Where: [address] [facility] [address] [place] [address]- Medications What How Much When Instructions Next Dose pseudoePHEDrine (Sudafed 30 mg oral tablet) 1 Tablet(s) Oral Every 6 Hours as needed for Congestion Pickup at [facility] as needed montelukast [...] sitagliptin (Januvia) 100mg daily tomorrow Pharmacy Information [facility]: [address] [place] [address] [phone] Take your medications faithfully. Do NOT skip [...] these instructions at home: Medicines ??? Take dswn-cxq-rarymoe and prescription medicines only as told by [...] provider. Document Revised: 09/09/2019 Document Reviewed: 09/09/2019 ElseDigitiliti Patient Education ?? 2020 [employer] Inc. Ureteroscopy Ureteroscopy is a procedure to [...] including vitamins, herbs, eye drops, creams, and eihz-lrx-izkrtgs medicines. ??? Any problems you or family [...] provider. Document Revised: 04/05/2018 Document Reviewed: 02/02/2017 [employer]ometry Patient Education ?? 2020 [employer]. Dietary Guidelines to Help Prevent Kidney Stones [...] Rhubarb. ? Beets. ? Potato chips and cypriot fries. ? Nuts. ??? If you regularly take a diuretic medicine, make sure to eat at least 1???2 fruits or vegetables high in potassium each day. These include: ? Avocado. ? Banana. ? Anchor, prune, carrot, or tomato juice. ? Baked [...] Casseroles. Pizza. Lasagna. Frozen meals. Potato chips. Arabic fries. Summary ??? You can reduce your [...] provider. Document Revised: 08/13/2019 Document Reviewed: 04/03/2017 [employer]ometry Patient Education ?? 2019 [employer]. pseudoephedrine (SALAZAR moralez ee FED rin) Chlor [...] from your inner ears, called the eustachian (ylu-PREE-cjvq) tubes. Pseudoephedrine may also be used for [...] may report side effects to FDA at 9-523-VQI-1841. What other drugs will affect pseudoephedrine? Other drugs may interact with pseudoephedrine, including prescription and qrau-otb-moiejgs medicines, vitamins, and herbal products. Tell each [...] to ensure that the information provided by [employer]. ('Multum') is accurate, up-to-date, and complete, but no guarantee is made to that effect. Drug information contained herein may be time sensitive. [employer] information has been compiled for use by healthcare practitioners and consumers in the [place] and therefore [employer] does not warrant that uses outside of the [place] are appropriate, unless specifically indicated otherwise. [employer]'s drug information does not endorse drugs, diagnose patients or recommend therapy. [employer] drug information is an informational resource designed [...] effective or appropriate for any given patient. [facility] does not assume any responsibility for any aspect of healthcare administered with the aid of information [facility] provides. The information contained herein is not intended to cover all possible uses, directions, precautions, warnings, drug interactions, allergic reactions, or adverse effects. If you have questions about the drugs you are taking, check with your doctor, nurse or pharmacist. Copyright 0450-9166 [facility] Center[facility]all[facility] EnterprisesDimeres. Version: 7.03. Revision Date: 06/07/2015. Emergency Awareness [...] Assistance with quitting is available by contacting 5-935-RYBX-NOW. This is a free resource providing counseling, [...] range between ( 0.0 and 7.0 ) [place] #: 0.47 K/uL -- Normal range between ( 0.16 and 1.00 ) Eos #: 0.09 x10(3)/uL -- Normal range between ( 0.00 and 0.80 ) [place] %: 8.5 % -- Normal range between [...] was given the opportunity to ask questions. Patient/Hitting Coach Name: Patient/Hitting Coach Signature: Relationship to Patient: Clinician/Hospital Hitting Coach Signature: Date: documented in this encounter Plan of Treatment Not on file documented as of this encounter Visit Diagnoses Not on filedocumented in this encounter Care Teams Felt Cutter Relationship Specialty Start Date End Date Salima Mi DO [address] [facility] [address] [place] [id number] PCP - General Family Medicine 02/09/23 documented as of this encounter
--- OUTSIDE RECORDS SUMMARY | 2025-05-05 17:48 | XMS_ITS | Encounter Summary ---
Author Organization [employer] ([place], [place], [place], [place], [place]) Address [address] [place] [address] Care Team Providers Care Door Attendant Name Role Phone Eliecer Salima Tate SWANN Primary Care Provider [phone] Encounter Details Date Type Department Care Team (Late st Contact Info) Description 10/08/2019 Transcribed Document [facility] [place] Family Medicine [address] [place] [address] ProviderQuincy MD [address] [place] [address] Social History Tobacco Use Types [...] Kate MD - 10/08/2019 10:26 AM CDT [place] [address] AMBIKA PIERRE :1965 Visit Time:10/08/2019 [...] office, November 09 at 11:00am Where: [address] [place] [place] [id number]- Medications What How Much When Instructions Next [...] serving. ??? Talk with a diet and franchise specialist (dietitian) if you have questions about [...] Bulgur wheat. Millet. Quinoa. Bran muffins. Popcorn. [place] wafer crackers. Meats and other proteins [place], kidney, and cox beans. Soybeans. Split peas. [...] Cream cheese. Sour cream. Fats and oils [place]. Beverages Soft drinks. Other foods Cakes and [...] 04/23/2006 Document Revised: 02/25/2018 Document Reviewed: 02/25/2018 [employer] Interactive Patient Education ?? 2019 [employer]ix. Gastritis, Adult Gastritis is swelling (inflammation) of [...] these instructions at home: Medicines ??? Take cpal-bwy-huhahmc and prescription medicines only as told by [...] 10/09/2008 Document Revised: 09/10/2018 Document Reviewed: 09/10/2018 [employer] Interactive Patient Education ?? 2019 [employer]ix. Colitis Colitis is inflammation of the colon. [...] you start to feel better. ??? Take xnaa-bpr-kzlujon and prescription medicines only as told by [...] 05/31/2005 Document Revised: 10/24/2018 Document Reviewed: 10/24/2018 [employer] Interactive Patient Education ?? 2019 Elsevier Inc. [...] times a day. General instructions ??? Take qxan-ssh-axabcwc and prescription medicines only as told by [...] 01/30/2009 Document Revised: 09/12/2018 Document Reviewed: 09/12/2018 [employer] Interactive Patient Education ?? 2019 [employer]ix. Colonoscopy, Adult, Care After This sheet gives [...] soft and easy to digest. ??? Take ilzt-uiu-hxpxalx or prescription medicines only as told by [...] 05/26/2011 Document Revised: 02/21/2018 Document Reviewed: 01/15/2017 [employer] Interactive Patient Education ?? 2019 [employer] Inc. Esophagogastroduodenoscopy, Care After Refer to this [...] 04/09/2013 Document Revised: 09/28/2016 Document Reviewed: 03/16/2016 [employer] Interactive Patient Education ?? 2019 ProteoGenix. metronidazole (me irma hawk) FIRST Metronidazole, Flagyl, [...] likely to occur while taking metronidazole termite helper): ?? numbness, tingling, or burning pain in [...] may report side effects to FDA at 8-168-FCL-0739. What other drugs will affect metronidazole? Sometimes [...] drugs may affect metronidazole, including prescription and deut-mzz-ngsquoq medicines, vitamins, and herbal products. Not all [...] to ensure that the information provided by [employer]. ('Multum') is accurate, up-to-date, and complete, but no guarantee is made to that effect. Drug information contained herein may be time sensitive. [employer] information has been compiled for use by healthcare practitioners and consumers in the [place] and therefore [employer] does not warrant that uses outside of the [place] are appropriate, unless specifically indicated otherwise. [employer] drug information does not endorse drugs, diagnose patients or recommend therapy. [employer] drug information is an informational resource designed [...] effective or appropriate for any given patient. [employer] does not assume any responsibility for any aspect of healthcare administered with the aid of information [employer] provides. The information contained herein is not intended to cover all possible uses, directions, precautions, warnings, drug interactions, allergic reactions, or adverse effects. If you have questions about the drugs you are taking, check with your doctor, nurse or pharmacist. Copyright 0502-9903 [employer] Mult[employer] Inc. Version: 12.02. Revision Date: [...] may report side effects to FDA at 9-800-NYA-8780. What other drugs will affect linaclotide? Other drugs may interact with linaclotide, including prescription, zeda-zzc-yqslxiw, vitamin, and herbal products. Tell your doctor [...] to ensure that the information provided by [employer]. ('Multum') is accurate, up-to-date, and complete, but no guarantee is made to that effect. Drug information contained herein may be time sensitive. [employer] information has been compiled for use by healthcare practitioners and consumers in the [place] and therefore [employer] does not warrant that uses outside of the [place] are appropriate, unless specifically indicated otherwise. [employer] drug information does not endorse drugs, diagnose patients or recommend therapy. [employer] drug information is an informational resource designed [...] effective or appropriate for any given patient. [employer] does not assume any responsibility for any aspect of healthcare administered with the aid of information [employer] provides. The information contained herein is not intended to cover all possible uses, directions, precautions, warnings, drug interactions, allergic reactions, or adverse effects. If you have questions about the drugs you are taking, check with your doctor, nurse or pharmacist. Copyright 9878-0792 [employer]. Version: 4.02. Revision Date: 01/23/2017. pantoprazole (oral/injection) [...] broken bone while taking this medicine termite helper or more than once per day. What [...] may report side effects to FDA at 5-406-ICJ-9626. What other drugs will affect pantoprazole? Tell your doctor about all your other medicines, especially: ?? digoxin; ?? methotrexate; or ?? a diuretic or 'water pill.' This list is not complete. Other drugs may affect pantoprazole, including prescription and tpoq-xnk-ypqkzej medicines, vitamins, and herbal products. Not all [...] to ensure that the information provided by [employer]. ('Blink[employer]um') is accurate, up-to-date, and complete, but no guarantee is made to that effect. Drug information contained herein may be time sensitive. [employer] information has been compiled for use by healthcare practitioners and consumers in the [place] and therefore [employer] does not warrant that uses outside of the [place] are appropriate, unless specifically indicated otherwise. [employer] drug information does not endorse drugs, diagnose patients or recommend therapy. [employer] drug information is an informational resource designed [...] effective or appropriate for any given patient. [facility] does not assume any responsibility for any aspect of healthcare administered with the aid of information [employer] provides. The information contained herein is not intended to cover all possible uses, directions, precautions, warnings, drug interactions, allergic reactions, or adverse effects. If you have questions about the drugs you are taking, check with your doctor, nurse or pharmacist. Copyright 3385-4992 [employer]. Version: 19.02. Revision Date: 10/30/2017. Emergency Awareness [...] Assistance with quitting is available by contacting 4-903-HCSE-NOW. This is a free resource providing counseling, [...] was given the opportunity to ask questions. Patient/Heat Treatment Technician Name: Patient/Heat Treatment Technician Signature: Relationship to Patient: Clinician/Hospital Heat Treatment Technician Signature: Date: documented in this encounter Plan of Treatment Not on file documented as of this encounter Visit Diagnoses Not on filedocumented in this encounter Care Teams Door Attendant Relationship Specialty Start Date End Date Salima Gonzáles, [address] [facility] [address] [place] [address] PCP - General Family Medicine 02/09/23 documented as of this encounter
--- OUTSIDE RECORDS SUMMARY | 2025-05-05 17:48 | XMS_ITS | Encounter Summary ---
Author Organization [employer] ([place], [place], [place], [place], [place]) Address [address] [place] [address] Care Team Providers Care Allergist/Immunologist Physician Name Role Phone Salima Gonzáles DO Primary Care Provider [phone] Encounter Details Date Type Department Care Team (Late st Contact Info) Description 10/04/2020 Transcribed Document [facility] [place] [address] [place] [address] ProviderQuincy MD [address] [place], [place] [id number] Social History Tobacco Use Types Packs/Day Years [...] 10/04/2020 16:48 EDT Electronically signed by [facility] Conversion Territory Sales Manager Medical Cerner at 08/23/2022 11:04 AM CDT documented in this encounter Plan of Treatment Not on file documented as of this encounter Visit Diagnoses Not on filedocumented in this encounter Care Teams Allergist/Immunologist Physician Relationship Specialty Start Date End Date Salima Gonzáles DO [address] [place] [address] PCP - General Family Medicine 02/09/23 documented as of this encounter
--- OUTSIDE RECORDS SUMMARY | 2025-05-05 17:48 | XMS_ITS | Encounter Summary ---
Author Organization [employer] ([place], [place], [place], [place], [place]) Address [address] [place] [address] Care Team Providers Care Diamond Sorter Name Role Phone Anujlizbet Salimajovanni Ybarra DO Primary Care Provider [phone] Encounter Details Date Type Department Care Team (Late st Contact Info) Description 10/05/2020 Transcribed Document [facility] [place] [address] [place] [address] ProviderQuincy MD [address] [place], [place] [address] Social History Tobacco Use Types Packs/Day Years [...] : Insurance 1 Health Plan: [facility] MEDIC[facility] REPL Policy Number: [id number] Authorization Number: Insurance Primary Name : [place] MEDICARE REPL Policy Number: [id number] Authorization Status-Primary : Awaiting callback Reference Number-Primary : [id number] Authorized Service Begin Date-Primary : 10/03/2020 EDT Authorization Comments-Primary : Clinicals faxed via [employer] for IP approval Historical Authorization Comments-Primary : Comment 1: Clinicals submitted via [employer] for IP approval (DEISY LIRA RN 10/04/2020 08:24) DEISY LIRA RN - 10/05/2020 14:13 EDT Electronically signed by [place] [facility] Conversion J2E[employer] Application Developer Cerner at 08/23/2022 11:14 AM CDT documented in this encounter Plan of Treatment Not on file documented as of this encounter Visit Diagnoses Not on filedocumented in this encounter Care Teams Diamond Sorter Relationship Specialty Start Date End Date Salima Gonzáles, 8 [facility] [address] [place] [address] PCP - General Family Medicine 02/09/23 documented as of this encounter
--- OUTSIDE RECORDS SUMMARY | 2025-05-05 17:48 | XMS_ITS | Encounter Summary ---
Author Organization [employer] ([place], [place], [place], [place], [place]) Address [address] [place] [address] Care Team Providers Care Metaphysicist Name Role Phone Salima Gonzáles Primary Care Provider [phone] Encounter Details Date Type Department Care Team (Late st Contact Info) Description 10/04/2020 Transcribed Document [facility] [place] Family Medicine [address] [place] [address] ProviderQuincy MD [address] [place], [place] [id number] Social History Tobacco Use Types Packs/Day Years [...] Kate MD - 10/04/2020 1:16 PM CDT [facility] Main OR PACU Summary Primary Physician: ANNABEL ZAMBRANO MD-URO Finalized Date/Time: 10/04/20 15:07:54 Pt. Name: AMBIKA PIERRE/Sex: 1965 Female Med Rec #: [id number] Physician: SUREKHA ARGUELLES MD Financial #: [id number] Pt. Type: I Room/Bed: [facility]/1 Admit/Disch: 10/03/20 18:06:00 - Institution: [facility] Main OR PACU I Case Times Entry 1 In PACU I 10/04/20 13:58:00 Ready for PACU 10/04/20 14:40:00 Discharge Discharge from PACU 10/04/20 14:40:00 I Last Modified By: ESPERANZA LAWRENCE RN 10/04/20 15:07:45 Finalized By: ESPERANZA LAWRENCE, RN Document Signatures Signed By: ESPERANZA LAWRENCE RN 10/04/20 15:07 Electronically signed by [place] [facility] Conversion Rug Layer Cerner at 08/23/2022 11:13 AM CDT documented in this encounter Plan of Treatment Not on file documented as of this encounter Visit Diagnoses Not on filedocumented in this encounter Care Teams Metaphysicist Relationship Specialty Start Date End Date Salima Gonzáles, [address] [address] PCP - General Family Medicine 02/09/23 documented as of this encounter
--- OUTSIDE RECORDS SUMMARY | 2025-05-05 17:48 | XMS_ITS | Encounter Summary ---
Author Organization [employer] ([place], [place], [place], [place], [place]) Address [address] [place] [address] Care Team Providers Care Swine Extension Field Specialist Name Role Phone Salima Gonzáles DO Primary Care Provider [phone] Encounter Details Date Type Department Care Team (Late st Contact Info) Description 10/05/2020 Transcribed Document [facility] [place] Family Medicine [address] [place] [address] ProviderQuincy MD [address] [place], [place] [id number] Social History Tobacco Use Types Packs/Day Years [...] on filedocumented in this encounter Care Teams Swine Extension Field Specialist Relationship Specialty Start Date End Date Salima Gonzáles, DO [address] [place] [address] PCP - General Family Medicine 02/09/23 documented as of this encounter
--- OUTSIDE RECORDS SUMMARY | 2025-05-05 17:48 | XMS_ITS ---
Care Plan - [facility], [facility] Created on: May 05, 2025 Neetu Murillo : 1965 Sex: Female Author Organization [facility] , [facility] Address [address] [place] [address] Phone Care Team Providers Care Clinical Staff Anesthesiologist Name Role Phone Isiah Sheridan DPM Unavailable [phone] Salima Gonzáles DO Primary Care Provider [phone]
--- OUTSIDE RECORDS SUMMARY | 2025-05-05 17:48 | XMS_ITS | Encounter Summary ---
Author Organization [employer] ([place], [place], [place], [place], [place]) Address [address] [place] [address] Care Team Providers Care Splunk Developer Name Role Phone Salima Gonzáles DO Primary Care Provider [phone] Encounter Details Date Type Department Care Team (Late st Contact Info) Description 10/06/2020 Transcribed Document [facility] [place] [address] [place] [address] ProviderQuincy MD [address] [place], [place] [address] Social History Tobacco Use Types Packs/Day Years [...] 11:00 EDT Contact Phone Number #1 : [phone] Follow-up Appointments Made #2 : [facility] Follow-up Appointment Date #2 : 01/06/2021 13:30 EDT Contact Phone Number #2 : [phone] Jacque Ledezma, CEREAL SUPERVISOR - 10/06/2020 11:44 EDT Electronically signed by [facility] Conversion Artificial Stone Applicator Cerner at 08/23/2022 10:59 AM CDT documented in this encounter Plan of Treatment Not on file documented as of this encounter Visit Diagnoses Not on filedocumented in this encounter Care Teams Splunk Developer Relationship Specialty Start Date End Date Salima Gonzáles, [address] [address] PCP - General Family Medicine 02/09/23 documented as of this encounter
--- OUTSIDE RECORDS SUMMARY | 2025-05-05 17:48 | XMS_ITS | Encounter Summary ---
Author Organization [employer] ([place], [place], [place], [place], [place]) Address [address] [place] [address] Care Team Providers Care Historiography Professor Name Role Phone Salima Gonzáles DO Primary Care Provider [phone] Encounter Details Date Type Department Care Team (Late st Contact Info) Description 10/04/2020 Transcribed Document [facility] [place] Family Medicine [address] [place] [address] ProviderQuincy MD [address] [place] [address] Social History Tobacco Use Types [...] on filedocumented in this encounter Care Teams Historiography Professor Relationship Specialty Start Date End Date Salima Gonzáles, DO [address] [place] [address] PCP - General Family Medicine 02/09/23 documented as of this encounter
--- OUTSIDE RECORDS SUMMARY | 2025-05-05 17:49 | XMS_ITS | Encounter Summary ---
Author Organization [employer] ([place], [place], [place], [place], [place]) Address [address] [place] [address] Care Team Providers Care Psychotherapist Counselor Name Role Phone Eliecer Salima Tate SWANN Primary Care Provider [phone] Encounter Details Date Type Department Care Team (Late st Contact Info) Description 10/03/2020 Transcribed Document [facility] [place] Family Medicine [address] [place] [address] ProviderQuincy MD [address] [place], [place] [address] Social History Tobacco Use Types Packs/Day Years [...] #2 Relationship : father Primary Language : Norwegian Communication Barrier : None Cloth Shrinking Supervisor Needed : No Cassie Colon RN - [...] Scale Risk Level : 25-45 Medium Risk [place] Fall Interventions : Adequate lighting, Assistive devices [...] Source : Stated Height Entry Format : [place] Height, Feet : 5 ft(Converted to: 152 cm, 60 Inch) Height, Inches : 1 Inch(Converted to: 0 ft 1 Inch, 2.54 cm) Clinical Height : 154.94 cm Weight Source : Bed scale Weight Entry Format : [place] Clinical Dosing Weight : 118.18 kg Weight, Pounds : 260 lb Body Surface Area (BSA) : 2.11 m2 Body Mass Index : 49.2 kg/m2 (>HHI) [place] Body Weight : 47 kg Cassie Colon [...] Cassie Colon RN - 10/03/2020 18:30 EDT [place] Suicide Severity Rating Scale (C-SSRS) CSSRS Past [...] - 10/03/2020 18:30 EDT Electronically signed by Nuzhat Barahona Conversion Fleet Administrative Assistant Cerner at 08/23/2022 10:51 AM CDT documented in this encounter Plan of Treatment Not on file documented as of this encounter Visit Diagnoses Not on filedocumented in this encounter Care Teams Psychotherapist Counselor Relationship Specialty Start Date End Date Salima Gonzáles DO [address] [address] PCP - General Family Medicine 02/09/23 documented as of this encounter
--- OUTSIDE RECORDS SUMMARY | 2025-05-05 17:49 | XMS_ITS | Encounter Summary ---
Author Organization [employer] ([place], [place], [place], [place], [place]) Address [address] [place] [address] Care Team Providers Care Sheet Metal Lay Out Worker Name Role Phone Eliecer Salima Tate SWANN Primary Care Provider [phone] Encounter Details Date Type Department Care Team (Late st Contact Info) Description 10/08/2019 Transcribed Document [facility] [place] [address] [place] [address] ProviderQuincy MD [address] [place] [address] Social History Tobacco Use Types [...] - 10/08/2019 10:35 AM CDT [facility] [address] AMBIKA PIERRE :1965 Visit Time:10/08/2019 [...] office, November 09 at 11:00am Where: [address] [id number]- Medications What How Much When Instructions Next [...] serving. ??? Talk with a diet and lawn specialist (dietitian) if you have questions about [...] Bulgur wheat. Millet. Quinoa. Bran muffins. Popcorn. [place] wafer crackers. Meats and other proteins [place], kidney, and cox beans. Soybeans. Split peas. [...] Cream cheese. Sour cream. Fats and oils [place]. Beverages Soft drinks. Other foods Cakes [...] 04/23/2006 Document Revised: 02/25/2018 Document Reviewed: 02/25/2018 [employer]a Interactive Patient Education ?? 2019 [employer]. Gastritis, Adult Gastritis is swelling (inflammation) of [...] these instructions at home: Medicines ??? Take ycwv-mqh-nxkmvcm and prescription medicines only as told by [...] 10/09/2008 Document Revised: 09/10/2018 Document Reviewed: 09/10/2018 [employer] Patient Education ?? 2019 [employer]. Colitis Colitis is inflammation of the colon. [...] you start to feel better. ??? Take yjrg-rod-mizbfek and prescription medicines only as told by [...] 05/31/2005 Document Revised: 10/24/2018 Document Reviewed: 10/24/2018 [employer]a Interactive Patient Education ?? 2019 Elsevier Inc. [...] times a day. General instructions ??? Take vpsx-kwg-zesuhmf and prescription medicines only as told by [...] 01/30/2009 Document Revised: 09/12/2018 Document Reviewed: 09/12/2018 [employer] Interactive Patient Education ?? 2019 [employer]. Colonoscopy, Adult, Care After This sheet gives [...] soft and easy to digest. ??? Take bxdq-poo-uhvltmo or prescription medicines only as told by [...] 05/26/2011 Document Revised: 02/21/2018 Document Reviewed: 01/15/2017 [employer]a Interactive Patient Education ?? 2019 Biba Inc. Esophagogastroduodenoscopy, Care After Refer to this [...] 04/09/2013 Document Revised: 09/28/2016 Document Reviewed: 03/16/2016 [employer]a Interactive Patient Education ?? 2019 [employer]. metronidazole (me irma hawk) FIRST Metronidazole, Flagyl, [...] (more likely to occur while taking metronidazole truck terminal manager): ?? numbness, tingling, or burning pain in [...] may report side effects to FDA at 9-904-TLZ-1883. What other drugs will affect metronidazole? Sometimes [...] drugs may affect metronidazole, including prescription and ztxc-fwq-qjfyale medicines, vitamins, and herbal products. Not all [...] to ensure that the information provided by [employer]. ('Multum') is accurate, up-to-date, and complete, but no guarantee is made to that effect. Drug information contained herein may be time sensitive. [employer] information has been compiled for use by healthcare practitioners and consumers in the [place] and therefore [employer] does not warrant that uses outside of the [place] are appropriate, unless specifically indicated otherwise. [employer] drug information does not endorse drugs, diagnose patients or recommend therapy. [employer]ices drug information is an informational resource designed [...] effective or appropriate for any given patient. [employer] does not assume any responsibility for any aspect of healthcare administered with the aid of information [employer] provides. The information contained herein is not intended to cover all possible uses, directions, precautions, warnings, drug interactions, allergic reactions, or adverse effects. If you have questions about the drugs you are taking, check with your doctor, nurse or pharmacist. Copyright 0054-2030 [employer] Multum, Inc. Version: 12.02. Revision Date: [...] may report side effects to FDA at 8-229-YOA-4230. What other drugs will affect linaclotide? Other drugs may interact with linaclotide, including prescription, sewr-yvz-bvwmdzs, vitamin, and herbal products. Tell your doctor [...] to ensure that the information provided by [employer]. ('Multum') is accurate, up-to-date, and complete, but no guarantee is made to that effect. Drug information contained herein may be time sensitive. [employer] information has been compiled for use by healthcare practitioners and consumers in the [place] and therefore [employer] does not warrant that uses outside of the [place] are appropriate, unless specifically indicated otherwise. X[employer] drug information does not endorse drugs, diagnose patients or recommend therapy. X[employer]ices drug information is an informational resource designed [...] effective or appropriate for any given patient. [employer] does not assume any responsibility for any aspect of healthcare administered with the aid of information [employer] provides. The information contained herein is not intended to cover all possible uses, directions, precautions, warnings, drug interactions, allergic reactions, or adverse effects. If you have questions about the drugs you are taking, check with your doctor, nurse or pharmacist. Copyright 5058-3784 [employer]. Version: 4.02. Revision Date: 01/23/2017. pantoprazole (oral/injection) [...] a broken bone while taking this medicine truck terminal manager or more than once per day. What [...] may report side effects to FDA at 5-310-JSQ-1007. What other drugs will affect pantoprazole? Tell your doctor about all your other medicines, especially: ?? digoxin; ?? methotrexate; or ?? a diuretic or 'water pill.' This list is not complete. Other drugs may affect pantoprazole, including prescription and rrnd-qne-orygtwj medicines, vitamins, and herbal products. Not all [...] to ensure that the information provided by [employer]. ('bodaplanestum') is accurate, up-to-date, and complete, but no guarantee is made to that effect. Drug information contained herein may be time sensitive. [employer] information has been compiled for use by healthcare practitioners and consumers in the [place] and therefore [employer] does not warrant that uses outside of the [place] are appropriate, unless specifically indicated otherwise. Xtraices drug information does not endorse drugs, diagnose patients or recommend therapy. Xtraices drug information is an informational resource designed [...] any given patient. [facility] does not assume any responsibility for any aspect of healthcare administered with the aid of information [employer] provides. The information contained herein is not intended to cover all possible uses, directions, precautions, warnings, drug interactions, allergic reactions, or adverse effects. If you have questions about the drugs you are taking, check with your doctor, nurse or pharmacist. Copyright 9441-2027 [employer]. Version: 19.02. Revision Date: 10/30/2017. Emergency Awareness [...] Assistance with quitting is available by contacting 8-366-DUZN-NOW. This is a free resource providing counseling, [...] was given the opportunity to ask questions. Patient/Field Education Coordinator Name: Patient/Field Education Coordinator Signature: Relationship to Patient: Clinician/Hospital Field Education Coordinator Signature: Date: Electronically signed by Nuzhat Barahona Conversion Certified Ophthalmic Technologist Michael at 08/23/2022 11:18 AM CDT documented in this encounter Plan of Treatment Not on file documented as of this encounter Visit Diagnoses Not on filedocumented in this encounter Care Teams Sheet Metal Lay Out Worker Relationship Specialty Start Date End Date Salima Gonzáles, [address] [facility] [address] [place] [address] PCP - General Family Medicine 02/09/23 documented as of this encounter
--- OUTSIDE RECORDS SUMMARY | 2025-05-05 17:49 | XMS_ITS | Encounter Summary ---
Author Organization [facility] y[facility] Address [address] [place] [address] Care Team Providers Care Administrative Support Specialist Name Role Phone Salima Gonzáles DO Primary Care Provider [phone] Encounter Details Date Type Department Care Team (Late st Contact Info) Description 10/07/2024 Results Follow-Up [facility] [address] [place] [address] Alea Juarez, HAND TURNER [address] [place] [address] Social History Tobacco Use Types Packs/Day Years [...] on filedocumented in this encounter Care Teams Administrative Support Specialist Relationship Specialty Start Date End Date Salima Gonzáles DO [facility] [place] [address] PCP - General Family Medicine 02/21/17 documented as of this encounter
--- OUTSIDE RECORDS SUMMARY | 2025-05-05 17:49 | XMS_ITS | Continuity of Care Document ---
Author Organization [facility] Address [address] [place] [address] Care Team Providers Care Tanyard Worker Name Role Phone MARCOS MI Primary Care Provider STEFANI MAYA Accountant Tax Assessment No assessment recorded. Plan of Treatment [...] and insertion of intraocular lens completed [facility] 03/05/2025 08:25:45 replacement of bilateral knee joints completed [facility] 03/05/2025 08:26:13 operation on bone injury of femur completed [facility] 03/05/2025 08:26:37 bypass of stomach completed [facility] 03/05/2025 08:27:22 total hysterectomy completed [facility] 03/05/2025 08:27:33 cholecystectomy completed [facility] 03/05/2025 08:27:40 procedure on intestine completed [facility] 03/05/2025 08:27:57 lithotripsy completed [facility] 03/05/2025 08:28:06 removal of urinary calculus completed [facility] 03/05/2025 08:28:15 Imaging Results None recorded. Procedure Notes None recorded. Medical Equipment None Reported. Allergies Allergen ID Allergen Name Allergen Category Reaction Reaction Severity Criticality Documentation Date Start Date Code Code System Note Provider Name and Address Organization Details Recorded Time 852066 morphine sulfate medicatio n Not available Not available Not available 03/31/20162014 17873 RxNorm Comme nt: Creat ed By: Holley buckCre ated Date: 2014 10:23 :41 AM; Not Available [facility] 03:55:38 294819 cefdinir medicatio n Not available Not available Not available 10/06/2020 77217 RxNorm Jacqueline Lora [facility] 15:59:52 Medications Name Sig Start Date Stop [...] Hep A, adult 8 completed Not Available [facility] 03/05/2025 11:56:18 Tdap 8 completed Not Available [facility] 03/05/2025 11:56:18 Influenza, split virus, quadrivalent, PF 8 completed Not Available [facility] 03/05/2025 11:56:18 pneumococcal polysaccharide PPV23 9 completed Not Available [facility] 03/05/2025 11:56:18 Hep A, adult 9 completed Not Available [facility] 03/05/2025 11:56:18 Influenza, split virus, quadrivalent, PF 9 completed Not Available [facility] 03/05/2025 11:56:18 Influenza, recombinant, quadrivalent, PF 0 completed Not Available [facility] 03/05/2025 11:56:18 COVID-19, mRNA, LNP-S, PF, 100 mcg/0.5mL dose or 50 mcg/0.25mL dose 1 completed Not Available [facility] 03/05/2025 11:56:18 COVID-19, mRNA, LNP-S, PF, 100 mcg/0.5mL dose or 50 mcg/0.25mL dose 1 completed Not Available [facility] 03/05/2025 11:56:18 COVID-19, mRNA, LNP-S, PF, 100 mcg/0.5mL dose or 50 mcg/0.25mL dose 1 completed Not Available [facility] 03/05/2025 11:56:18 Influenza, split virus, quadrivalent, PF 1 completed Not Available [facility] 03/05/2025 11:56:18 Influenza, MDCK, quadrivalent, PF 2 completed Not Available [facility] 03/05/2025 11:56:18 Pneumococcal conjugate PCV20, polysaccharide HQA356 conjugate, adjuvant, PF 2 completed Not Available [facility] 03/05/2025 11:56:18 COVID-19, mRNA, LNP-S, bivalent, PF, 50 mcg/0.5 mL or 25mcg/0.25 mL dose 2 completed Not Available [facility] 03/05/2025 11:56:18 Influenza, MDCK, quadrivalent, PF 3 completed Not Available [facility] 03/05/2025 11:56:18 Influenza, MDCK, trivalent, PF 4 completed Not Available [facility] 03/05/2025 11:56:18 Past Encounters Encounter ID Performer Location Encounter Start Date Encounter Closed Date Diagnosis/Indication Diagnosis SNOMED-CT Code Diagnosis ICD10 Code Diagnosis IMO Codes Diagnosis Note [id number] STEFANI MAYA MD OPHTHALMO [address] [place] [address] 5 03/05/2025 08:14:27 03/05/2025 09:53:39 Artificial lens present 607945891 Z96.1 73228 stable, mr today Allergic conjunctivitis of bilateral eyes 0138320975 84725 H10.13 599643 pataday/za ditor prn Nevus of right iris 6808 859416 28306 D31.41 94130341 monitor for changes1 year Health Concerns Section Related Observation LastModified by Organization Detai ls LastModified Time None Recorded Concern Status LastModified by Organization Details LastModified Time None Recorded Payers Encounter Date Sequence Insurance Name Policy Number Policy Giordano Covered Member ID Giordano Member ID Guarantor Name 03/05/2025 1 [place] (MEDICARE [facility]) [id number] Neetu Zavala [id number] Neetu Murillo OBGyn Episode No OBEpisode recorded.
--- OUTSIDE RECORDS SUMMARY | 2025-05-05 17:49 | XMS_ITS | Encounter Summary ---
Author Organization [employer] ([place], [place], [place], [place], [place]) Address [address] [place] [address] Care Team Providers Care Wireline Operator Name Role Phone Salima Gonzáles Primary Care Provider [phone] Encounter Details Date Type Department Care Team (Late st Contact Info) Description 10/03/2020 Transcribed Document [facility] [place] Family Medicine [address] [place] [address] ProviderQuincy MD [address] [place], [place] [address] Social History Tobacco Use Types Packs/Day Years [...] on filedocumented in this encounter Care Teams Wireline Operator Relationship Specialty Start Date End Date Salima Gonzáles, [address] [address] PCP - General Family Medicine 02/09/23 documented as of this encounter
--- OUTSIDE RECORDS SUMMARY | 2025-05-05 17:49 | XMS_ITS | Encounter Summary ---
Author Organization [employer] ([place], [place], [place], [place], [place]) Address [address] [place] [address] Care Team Providers Care New Order Clerk Name Role Phone Eliecer Salima Tate SWANN Primary Care Provider [phone] Encounter Details Date Type Department Care Team (Late st Contact Info) Description 10/04/2020 Transcribed Document [facility] [place] Family [place] [address] [place] [address] ProviderQuincy MD [address] [place], [place] [address] Social History Tobacco Use Types Packs/Day Years [...] needed N.p.o. currently, urology consultation pending Tamsulosin #Tzg-sbbgemv-wpawyqbkv diabetes Hold home medications Cover with SSI [...] Lymph # 2.58 x10(3)/uL 10/03/2020 19:07 EDT [place] % 8.5 % 10/04/2020 06:54 EDT [place] % 7.7 % 10/03/2020 19:07 EDT [place] # 0.47 K/uL 10/04/2020 06:54 EDT [place] # 0.56 K/uL 10/03/2020 19:07 EDT Eos [...] 10/04/2020 06:54 EDT Electronically signed by [place], [facility] Conversion Electronics Worker Cerner at 08/23/2022 11:00 AM CDT documented in this encounter Plan of Treatment Not on file documented as of this encounter Visit Diagnoses Not on filedocumented in this encounter Care Teams New Order Clerk Relationship Specialty Start Date End Date Salima Gonzáles DO [address] [address] PCP - General Family Medicine 02/09/23 documented as of this encounter
--- OUTSIDE RECORDS SUMMARY | 2025-05-05 17:49 | XMS_ITS | Encounter Summary ---
Author Organization [employer] ([place], [place], [place], [place], [place]) Address [address] [place] [address] Care Team Providers Care Human Services Professional Name Role Phone Eliecer Salimajovanni Ybarra DO Primary Care Provider [phone] Encounter Details Date Type Department Care Team (Late st Contact Info) Description 10/08/2019 Transcribed Document [facility] [place] [place] Family Medicine [address] [place] [address] ProviderQuincy MD [address] [place], [place] [id number] Social History Tobacco Use Types Packs/Day Years [...] Source : Stated Height Entry Format : [place] Height, Feet : 5 ft(Converted to: 152 cm, 60 Inch) Height, Inches : 1 Inch(Converted to: 0 ft 1 Inch, 2.54 cm) Clinical Height : 154.94 cm Weight Source : Standing scale Weight Entry Format : [place] Clinical Dosing Weight : 118.55 kg Weight, Pounds : 260.8 lb Body Surface Area (BSA) : 2.12 m2 Body Mass Index : 49.4 kg/m2 (>HHI) [place] Body Weight : 47 kg Whitney Huynh [...] Whitney Huynh Rn - 10/08/2019 9:18 EDT [place] Suicide Severity Rating Scale (C-SSRS) CSSRS Past [...] #2 Relationship : na Primary Language : [place] Communication Barrier : None Whitney Huynh Rn [...] apparent problem Ranulfo Score : 22 Whitney Hunyh Rn - 10/08/2019 9:18 EDT Fall Risk [...] Scale Risk Level : 0-24 Low Risk [place] Fall Interventions : Adequate lighting, Call device [...] on filedocumented in this encounter Care Teams Human Services Professional Relationship Specialty Start Date End Date Salima Gonzáles DO [address] [place] [address] PCP - General Family Medicine 02/09/23 documented as of this encounter
--- OUTSIDE RECORDS SUMMARY | 2025-05-05 17:49 | XMS_ITS | Encounter Summary ---
Author Organization [employer] ([place], [place], [place], [place], [place]) Address [address] [place] [address] Care Team Providers Care Model Maker Name Role Phone Anujlizbet Salima Tate SWANN Primary Care Provider [phone] Encounter Details Date Type Department Care Team (Late st Contact Info) Description 10/12/2020 Transcribed Document [facility] [place] Family Medicine [address] [place] [address] ProviderQuincy MD [address] [place], [place] [address] Social History Tobacco Use Types Packs/Day Years [...] [facility] MEDIC[facility] REPL Policy Number: [id number] Authorization Number: Insurance Primary Name : OPHELIA MEDICARE REPL Policy Number: [id number] Authorization Status-Primary : Awaiting callback Reference Number-Primary : [id number] Authorized Service Begin Date-Primary : 10/03/2020 EDT Authorization Comments-Primary : Yeison Stearns remains pending Historical Authorization Comments-Primary : Comment 1: Faxed dc summary via [employer] (PING HOFFMANN RN 10/11/2020 12:12) Comment 2: Remains pending per [employer] (PING HOFFMANN RN 10/11/2020 12:11) Comment 3: Email sent to madelyn (PING HOFFMANN RN 10/09/2020 15:11) Comment 4: Clinicals faxed via [employer] for IP approval (DEISY LIRA RN 10/05/2020 14:13) Comment 5: Clinicals submitted via [employer] for IP approval (DEISY LIRA RN 10/04/2020 08:24) PING HOFFMANN RN - 10/12/2020 12:06 EDT documented in this encounter Plan of Treatment Not on file documented as of this encounter Visit Diagnoses Not on filedocumented in this encounter Care Teams Model Maker Relationship Specialty Start Date End Date Salima Gonzáles, 8 [facility] [address] [place] [address] PCP - General Family Medicine 02/09/23 documented as of this encounter
--- OUTSIDE RECORDS SUMMARY | 2025-05-05 17:49 | XMS_ITS | Encounter Summary ---
Author Organization [employer] ([place], [place], [place], [place], [place]) Address [address] [place] [address] Care Team Providers Care Vascular Nurse Name Role Phone Salima Gonzáles Primary Care Provider [phone] Encounter Details Date Type Department Care Team (Late st Contact Info) Description 10/03/2020 Transcribed Document [facility] [place] [address] [place] [address] ProviderQuincy MD [address] [place], [place] [id number] Social History Tobacco Use Types Packs/Day Years [...] on filedocumented in this encounter Care Teams Vascular Nurse Relationship Specialty Start Date End Date Salima Gonzáles, [address] [facility] [address] [place] [address] PCP - General Family Medicine 02/09/23 documented as of this encounter
--- OUTSIDE RECORDS SUMMARY | 2025-05-05 17:49 | XMS_ITS | Encounter Summary ---
Author Organization [employer] ([place], [place], [place], [place], [place]) Address [address] [place] [address] Care Team Providers Care Fixture Maker Name Role Phone Eliecer Salima Tate SWANN Primary Care Provider [phone] Encounter Details Date Type Department Care Team (Late st Contact Info) Description 10/08/2019 Transcribed Document [facility] [place] Family Medicine [address] [place] [address] ProviderQuincy MD [address] [place] [address] Social History Tobacco Use Types Packs/Day Years [...] on filedocumented in this encounter Care Teams Fixture Maker Relationship Specialty Start Date End Date Salima Gonzáles, [address] [address] PCP - General Family Medicine 02/09/23 documented as of this encounter
--- OUTSIDE RECORDS SUMMARY | 2025-05-05 17:49 | XMS_ITS | Encounter Summary ---
Author Organization [employer] ([place], [place], [place], [place], [place]) Address [address] [place] [address] Care Team Providers Care Electric Car Operator Name Role Phone Salima Gonzáles Tate SWANN Primary Care Provider [phone] Encounter Details Date Type Department Care Team (Late st Contact Info) Description 10/03/2020 Transcribed Document [facility] [place] Family Medicine [address] [place] [address] ProviderQuincy MD [address] [place], [place] [address] Social History Tobacco Use Types Packs/Day Years [...] Language : Turkish Communication Barrier : None Comparator Operator Needed : No Hoa Coleman RN - [...] Level : 46 or > High Risk [place] Fall Interventions : Adequate lighting, Assistive devices [...] Source : Stated Height Entry Format : [place] Height, Feet : 5 ft(Converted to: 152 cm, 60 Inch) Height, Inches : 1 Inch(Converted to: 0 ft 1 Inch, 2.54 cm) Clinical Height : 154.94 cm Weight Source : Bed scale Weight Entry Format : [place] Clinical Dosing Weight : 118.18 kg Weight, Pounds : 260 lb Body Surface Area (BSA) : 2.11 m2 Body Mass Index : 49.2 kg/m2 (>HHI) [place] Body Weight : 47 kg Hoa Coleman [...] Hoa Coleman RN - 10/04/2020 13:17 EDT [place] Suicide Severity Rating Scale (C-SSRS) CSSRS Past [...] EDT Electronically signed by Nuzhat Barahona Conversion Information Resources Director Cerner at 08/23/2022 11:07 AM CDT documented in this encounter Plan of Treatment Not on file documented as of this encounter Visit Diagnoses Not on filedocumented in this encounter Care Teams Electric Car Operator Relationship Specialty Start Date End Date Salima Gonzáles DO [address] [address] PCP - General Family Medicine 02/09/23 documented as of this encounter
--- OUTSIDE RECORDS SUMMARY | 2025-05-05 17:49 | XMS_ITS | Encounter Summary ---
Author Organization [employer] ([place], [place], [place], [place], [place]) Address [address] [place] [address] Care Team Providers Care Fish Inspector Name Role Phone Anujlizbet Salima Tate SWANN Primary Care Provider [phone] Encounter Details Date Type Department Care Team (Late st Contact Info) Description 10/23/2020 Transcribed Document [facility] [place] [address] [place] [address] ProviderQuincy MD [address] [place], [place] [id number] Social History Tobacco Use Types Packs/Day Years [...] Policy Numbers : Insurance 1 Health Plan: [facility] REPL Policy Number: [id number] Authorization Number: Insurance Primary Name : [employer] REPL Policy Number: [id number] Authorization Status-Primary : Denied Auth/Referral Contact Name-Primary : DC+ Reference Number-Primary : [id number] Authorized Service Begin Date-Primary : 10/03/2020 EDT Authorization Comments-Primary : Per Mary ok to bill under part b. emailed to billing. Historical Authorization Comments-Primary : Comment 1: Discharge date and summary faxed. (Katia Pratt, Medical Assistant Per Diem 10/13/2020 15:02) Comment 2: Email to David/Mary/MOSHE (JUSTEN HARTLEY, Rn-Utilization Review 10/13/2020 10:20) Comment 3: Rec fax from [place] 10/12/20 States admission has been denied. Fax to Jacque Tabor (TEMI LAMBERT, Associate Professor Of History 10/12/2020 14:42) Comment 4: Per Jinny remains pending (JACQUE HOFFMANN RN 10/12/2020 12:06) Comment 5: Faxed dc summary via [employer] (JACQUE HOFFMANN RN 10/11/2020 12:12) Comment 6: Remains pending per Avail[employer] (JACQUE HOFFMANN RN 10/11/2020 12:11) Comment 7: Email sent to jinny (JACQUE HOFFMANN RN 10/09/2020 15:11) Comment 8: Clinicals faxed via [employer] for IP approval (DEISY LIRA RN 10/05/2020 14:13) Comment 9: Clinicals submitted via [employer] for IP approval (DEISY LIRA RN 10/04/2020 08:24) JACQUE HOFFMANN RN - 10/23/2020 12:34 EDT Electronically signed by Alec Barahona Conversion Rotating Equipment Specialist Cerner at 08/23/2022 10:49 AM CDT documented in this encounter Plan of Treatment Not on file documented as of this encounter Visit Diagnoses Not on filedocumented in this encounter Care Teams Fish Inspector Relationship Specialty Start Date End Date Salima Gonzáles, DO [address] [place] [address] PCP - General Family Medicine 02/09/23 documented as of this encounter
--- OUTSIDE RECORDS SUMMARY | 2025-05-05 17:49 | XMS_ITS | Encounter Summary ---
Author Organization [employer] ([place], [place], [place], [place], [place]) Address [address] [place] [address] Care Team Providers Care Operational Intelligence Analyst Name Role Phone Anujlizbet Salima Tate SWANN Primary Care Provider [phone] Encounter Details Date Type Department Care Team (Late st Contact Info) Description 10/12/2020 Transcribed Document [facility] [place] Family Medicine [address] [place] [address] ProviderQuincy MD [address] [place], [place] [address] Social History Tobacco Use Types Packs/Day Years [...] On: 10/12/2020 14:42 EDT by TEMI LAMBERT, Mobile Plant Operators Primary Insurance Authorization Authorization and Policy Numbers : Insurance 1 Health Plan: [facility] MEDICARE REPL Policy Number: [id number] Authorization Number: Insurance Primary Name : [employer] MEDICARE REPL Policy Number: [id number] Authorization Status-Primary : Denied Reference Number-Primary : [id number] Authorized Service Begin Date-Primary : 10/03/2020 EDT Authorization Comments-Primary : Rec fax from [place] 10/12/20 States admission has been denied. Fax [...] 10/09/2020 15:11) Comment 5: Clinicals faxed via [employer] for IP approval (DEISY LIRA RN 10/05/2020 14:13) Comment 6: Clinicals submitted via [employer] for IP approval (DEISY LIRA RN 10/04/2020 08:24) TEMI LAMBERT, Mobile Plant Operators - 10/12/2020 14:42 EDT documented in this encounter Plan of Treatment Not on file documented as of this encounter Visit Diagnoses Not on filedocumented in this encounter Care Teams Operational Intelligence Analyst Relationship Specialty Start Date End Date Salima Gonzáles, 8 [facility] [address] [place] [address] PCP - General Family Medicine 02/09/23 documented as of this encounter
--- OUTSIDE RECORDS SUMMARY | 2025-05-05 17:49 | XMS_ITS | Encounter Summary ---
Author Organization [employer] ([place], [place], [place], [place], [place]) Address [address] [place] [address] Care Team Providers Care Honey Grader And Blender Name Role Phone Salima Gonzáles Primary Care Provider [phone] Encounter Details Date Type Department Care Team (Late st Contact Info) Description 10/03/2020 Transcribed Document [facility] [place] [address] [place] [address] ProviderQuincy MD [address] [place], [place] [id number] Social History Tobacco Use Types Packs/Day Years [...] 10/05/2020 13:39 EDT Electronically signed by [place] [facility] Conversion Cardiology Manager Cerner at 08/27/2022 3:31 PM CDT documented in this encounter Plan of Treatment Not on file documented as of this encounter Visit Diagnoses Not on filedocumented in this encounter Care Teams Honey Grader And Blender Relationship Specialty Start Date End Date Salima Gonzáles DO [address] [address] PCP - General Family Medicine 02/09/23 documented as of this encounter
--- OUTSIDE RECORDS SUMMARY | 2025-05-05 17:49 | XMS_ITS | Encounter Summary ---
Author Organization [employer] ([place], [place], [place], [place], [place]) Address [address] [place] [address] Care Team Providers Care Acid Etch Operator Name Role Phone Salima Gonzáles Tate SWANN Primary Care Provider [phone] Encounter Details Date Type Department Care Team (Late st Contact Info) Description 10/03/2020 Transcribed Document [facility] [place] Family Medicine [address] [place] [address] ProviderQuincy MD [address] [place], [place] [address] Social History Tobacco Use Types Packs/Day Years [...] on filedocumented in this encounter Care Teams Acid Etch Operator Relationship Specialty Start Date End Date Salima Gonzáles, DO [address] [address] PCP - General Family Medicine 02/09/23 documented as of this encounter
--- OUTSIDE RECORDS SUMMARY | 2025-05-05 17:49 | XMS_ITS | Encounter Summary ---
Author Organization [employer] ([place], [place], [place], [place], [place]) Address [address] [place] [address] Care Team Providers Care Lumber Loader Name Role Phone Salima Mi DO Primary Care Provider Encounter Details Date Type Department Care Team (Late st Contact Info) Description 10/03/2020 Transcribed Document [facility] [place] Family Medicine [facility] [place] [address] ProviderQuincy MD [address] [place] [id number] Social History Tobacco Use Types Packs/Day Years [...] : 1965 Primary Care Provider SALIMA MI DO-[facility] History of Present Illness Ms. Aponte is a 54-year-old female with pbw-mehgjtm-jbtsqrevj diabetes, asthma and COPD with continued tobacco use, history of kidney stones, obesity. She was transferred to [facility] from [facility] on 10/03 for hydronephrosis and obstructing [...] needed Consult urology, n.p.o. after midnight Tamsulosin #Hzr-qzmfebh-fqsgttxgj diabetes Hold home medications Cover with SSI [...] Code, Continuous Order Electronically signed by Interface, [facility] Conversion Transfer And Pumphouse Operator Chief Cerner at 08/23/2022 11:11 AM CDT documented in this encounter Plan of Treatment Not on file documented as of this encounter Visit Diagnoses Not on filedocumented in this encounter Care Teams Lumber Loader Relationship Specialty Start Date End Date Salima Mi, 8 [facility] [address] [place] [id number] PCP - General Family Medicine 02/09/23 documented as of this encounter
--- OUTSIDE RECORDS SUMMARY | 2025-05-05 17:49 | XMS_ITS | Encounter Summary ---
Author Organization [employer] ([place], [place], [place], [place], [place]) Address [address] [place] [address] Care Team Providers Care Video Game Developer Name Role Phone Salima Gonzáles Tate SWANN Primary Care Provider [phone] Encounter Details Date Type Department Care Team (Late st Contact Info) Description 10/04/2020 Transcribed Document [facility] [place] Family Medicine [address] [place] [address] ProviderQuincy MD [address] [place] [id number] Social History Tobacco Use Types Packs/Day Years [...] left the operating room in satisfactory condition. /[id number] Gatito Menendez MD [facility]/AQ / [facility] / MODL /[id number] Electronically signed by [place], [facility] Conversion Cigarette Lighter Repairer Cerner at 08/23/2022 10:57 AM CDT documented in this encounter Plan of Treatment Not on file documented as of this encounter Visit Diagnoses Not on filedocumented in this encounter Care Teams Video Game Developer Relationship Specialty Start Date End Date Salima Gonzáles, DO [address] [address] PCP - General Family Medicine 02/09/23 documented as of this encounter
--- OUTSIDE RECORDS SUMMARY | 2025-05-05 17:49 | XMS_ITS | Encounter Summary ---
Author Organization [employer] ([place], [place], [place], [place], [place]) Address [address] [place] [address] Care Team Providers Care Dubbing Machine Operator Name Role Phone Anujlizbet Salima Tate SWANN Primary Care Provider [phone] Encounter Details Date Type Department Care Team (Late st Contact Info) Description 10/03/2020 Transcribed Document [facility] [place] [address] [place] [address] ProviderQuincy MD [address] [place], [place] [address] Social History Tobacco Use Types Packs/Day Years [...] on filedocumented in this encounter Care Teams Dubbing Machine Operator Relationship Specialty Start Date End Date Salima Gonzáles, DO [address] [address] PCP - General Family Medicine 02/09/23 documented as of this encounter
--- OUTSIDE RECORDS SUMMARY | 2025-05-05 17:49 | XMS_ITS | Encounter Summary ---
Author Organization [employer] ([place], [place], [place], [place], [place]) Address [address] [place] [address] Care Team Providers Care Pit Inspector Name Role Phone Salima Gonzáles Primary Care Provider [phone] Encounter Details Date Type Department Care Team (Late st Contact Info) Description 10/03/2020 Transcribed Document [facility] [place] [facility] [place] [address] ProviderQuincy MD [address] [place], [place] [address] Social History Tobacco Use Types Packs/Day Years [...] 10/03/2020 19:18 EDT by Tereza Carrera Patient Fagoter Shira Phone Call for Consults Consult Phone Call/Page Attempt : First call Consult Reason : obstructing stone Physician Requesting Consult : TIM MCCORMICK, DO-INT Physician Requested for Consult : DILLON HOFFMANN MD Provider Team Notified Name : Urology Physician Covering for Consult : ANNABEL ZAMBRANO MD-URO Date and Time Call Returned : 10/04/2020 9:51 EDT Deandre, Tereza N, Patient Fagoter I - 10/04/2020 9:48 EDT Electronically signed by [place], [facility] Conversion Certified Indoor Environmentalist Cerner at 08/23/2022 10:50 AM CDT documented in this encounter Plan of Treatment Not on file documented as of this encounter Visit Diagnoses Not on filedocumented in this encounter Care Teams Pit Inspector Relationship Specialty Start Date End Date Salima Gonzáles, DO 8 [facility] [address] [place] [address] PCP - General Family Medicine 02/09/23 documented as of this encounter
--- OUTSIDE RECORDS SUMMARY | 2025-05-05 17:49 | XMS_ITS | Clinical Summary ---
Author Organization [employer] ([place], [place], [place], [place], [place]) Address [address] [place] [address] Care Team Providers Care Occupational Work Experience Teacher Name Role Phone Salima Gonzáles DO Primary Care Provider [phone] Social History Tobacco Use Types Packs/Day Years [...] Pneumococcal 50+ years Completed 01/27/2022, 2018 Insurance [facility] H[facility] MAP Care Teams Occupational Work Experience Teacher Relationship Specialty Start Date End Date Salima Gonzáles, [address] [place] [address] PCP - General Family Medicine 02/09/23
--- OUTSIDE RECORDS SUMMARY | 2025-05-05 17:50 | XMS_ITS ---
Author Organization [facility] , [facility] Address [address] [place] [address] Phone Care Team Providers Care Store Coordinator Name Role Phone Isiah Sheridan DPM Unavailable [phone] Salima Gonzáles DO Primary Care Provider [phone] Problems Includes: Active, inactive, and resolved Problems All Visits Onset Date Date of Diagnosis Resolved Date Provider Condition Status Lower Back Pain 06/02/2024 06/02/2024 Mathew Gordon PA-C Active Last Documented On 5 1:42AM ; [facility] Joint Pain Hip Right 06/02/2024 06/02/2024 Mathew Gordon PA-C Active Last Documented On 5 1:42AM ; [facility] Plan of Treatment Pending Tests Order Diagnosis Results Due Ordering P rovider Radiology - MRI MRI Lumbar Spine Low back pain, unspecified 06/16/24 Mathew Gordon PA-C Last Documented On 5 8:22AM ; [facility] Instructions to patient Lose weight Last Documented On 5 11:14AM ; [facility] Assessments Includes: Assessments for all patient encounters Findings Encounter Date Overweight Physician Specified with Mathew Gordno PA-C 06/02/2024 Last Documented On 5 11:14AM ; [facility] Instructions Includes: Instructions for all patient encounters Instructions to patient Lose weight Last Documented On 5 11:14AM ; [facility] Medical Equipment - Implanted Devices Includes: Current and historical Devices No Medical Equipment Recorded Medications Includes: Current and historical Medications Current Medications (continue as prescribed) Zoryve 0.3% External Cream 05/22/2024 Provider: Diagnosis: Last Documented On 5 10:03AM By Mihir Inman ; [facility], [facility] buPROPion HCl ER (SR) 150 MG Oral Tablet Extended Release 12 Hour 04/28/2024 Provider: Salima Gonzáles DO Diagnosis: Last Documented On 5 10:03AM By Mihir Inman ; [facility], [facility] Emgality 120 MG/ML Subcutane ous Solution Auto-injector 04/28/2024 Provider: Salima Gonzáles DO Diagnosis: Last Documented On 5 10:03AM By Mihir Inman ; [facility], [facility] FLUoxetine HCl 40 MG Oral Capsule 04/28/2024 Provide r: Salima Gonzáles DO Diagnosis: Last Documented On 5 10:03AM By Mihir Inman ; [facility], [facility] FreeStyle Niels 2 Sensor Miscellaneous 04/28/2024 Pr ovider: CHARLES GARCIA MD Diagnosis: Last Documented On 5 10:03AM By Mihir Inman ; [facility], [facility] hydrOXYzine HCl 10 MG Oral Tablet 04/28/2024 Provide r: Salima Gonzáles DO Diagnosis: Last Documented On 5 10:03AM By Mihir Inman ; [facility], [facility] Levothyroxine Sodium 125 MCG Oral Tablet 04/28/2024 Provider: CHARLES GARCIA MD Diagnosis: Last Documented On 5 10:03AM By Mihir Inman ; [facility], [facility] Loratadine 10 MG Oral Tablet 04/28/2024 Provider: Salima Gonzáles DO Diagnosis: Last Documented On 5 10:03AM By Mihir Inman ; [facility], [facility] Montelukast Sodium 10 MG Oral Tablet 04/28/2024 Prov ider: Salima Gonzáles DO Diagnosis: Last Documented On 5 10:03AM By Mihir Inman ; [facility], [facility] Nurtec 75 MG Oral Tablet Disintegrating 04/28/2024 P rovider: Salima Gonzáles DO Diagnosis: Last Documented On 5 10:03AM By Mihir Inman ; [facility], [facility] Pregabalin 150 MG Oral Capsule 04/28/2024 Provider: Salima Gonzáles DO Diagnosis: Last Documented On 5 10:03AM By Mihir Inman ; [facility], [facility] Simvastatin 5 MG Oral Tablet 04/28/2024 Provider: Salima Gonzáles DO Diagnosis: Last Documented On 5 10:04AM By Mihir Inman ; [facility], [facility] Montelukast Sodium 10 MG Oral Tablet 04/28/2024 Prov ider: Salima Gonzáles DO Diagnosis: Last Documented On 5 10:26AM By Mihir Inman ; [facility] Linzess 72 MCG Oral Capsule 04/11/2024 Provider: Salima Gonzáles DO Diagnosis: Last Documented On 5 10:04AM By Mihir Inman ; [facility], [facility] Pantoprazole Sodium 40 MG Oral Tablet Delayed Release 04/11/2024 Provider: Diagnosis: Last Documented On 5 10:04AM By Mihir Inman ; [facility], [facility] Sucralfate 1 GM Oral Tablet 04/11/2024 Provider: Diagnosis: Last Documented On 5 10:04AM By Mihir Inman ; [facility], [facility] HYDROcodone-Acetaminophen 5- 325 MG Oral Tablet 04/10/2024 Provider: Salima Gonzáles DO Diagnosis: Last Documented On 5 10:26AM By Mihir Inman ; [facility], [facility] Hyoscyamine Sulfate 0.125 MG Oral Tablet 04/09/2024 Provider: Diagnosis: Last Documented On 5 10:26AM By Mihir Inman ; [facility] Fluconazole 200 MG Oral Tablet 04/05/2024 Provider: Diagnosis: Last Documented On 5 10:26AM By Mihir Inman ; [facility], [facility] Sulfamethoxazole-Trimethoprim 400-80 MG Oral Tablet Provider: Diagnosis: Last Documented On 5 10:26AM By Mihir Inman ; [facility] Sulfamethoxazole-Trimethoprim 400-80 MG Oral Tablet Provider: Diagnosis: Last Documented On 5 10:26AM By Mihir Inman ; [facility], [facility] Emgality 120 MG/ML Subcutane ous Solution Auto-injector 03/19/2024 Provider: Salima Gonzáles DO Diagnosis: Last Documented On 5 10:26AM By Mihir Inman ; [facility] Linzess 72 MCG Oral Capsule 03/14/2024 Provider: Salima Gonzáles DO Diagnosis: Last Documented On 5 10:26AM By Mihir Inman ; [facility] Nystatin-Triamcinolone 00008 0-0.1 UNIT/GM-% External Cream 03/14/2024 Provider: Salima Gonzáles DO Diagnosis: Last Documented On 5 10:26AM By Mihir Inman ; [facility] Nystatin-Triamcinolone 35019 0-0.1 UNIT/GM-% External Cream 03/14/2024 Provider: Salima Gonzáles DO Diagnosis: Last Documented On 5 10:26AM By Mihir Inman ; [facility], [facility] Medications Administered Includes: Administered Medications in patient's chart No Administered Medications Recorded Vital Signs Includes: Vital Signs from 05/05/2024 through 05/05/2025 Vital Name 06/02/2024 10:27A Height (in) 61 Weight (lb) 245 Body Mass Index 46.3 Body Surface Area 2.1 Pain Level 4 Last Documented: On 06/02/2024 10:27A M ; [facility] Results Includes: Results from 05/05/2024 through 05/05/2025 No Results Recorded For Specified Dates Social History Description Last Updated No caffeine use 06/02/2024 Last Documented On 5 8:22AM ; [facility], [facility] Not a current smoker. 06/02/2024 Last Documented On 5 8:22AM ; [facility] Not exercising regularly 06/02/2024 Last Documented On 5 8:22AM ; [facility] Not using alcohol 06/02/2024 Last Documented On 5 8:22AM ; [facility] Not using drugs 06/02/2024 Last Documented On 5 8:22AM ; [facility] Recent change in diet 06/02/2024 Last Documented On 5 8:22AM ; [facility] Sex - Female 06/17/2024 Last Documented On 5 9:45AM ; [facility] Smoking Status Unknown Procedures and Surgical History Includes: Procedures from 05/05/2024 through 05/05/2025 Procedures Code Diagnosis Performing Provider Service Location Service Date X-RAY EXAM OF LOWER SPINE 2-3 VIEWS LIMITED 16262 Other low back pain Mathew Gordon PA-C [facility] 06/02/2024 Last Documented On 5 2:15PM ; [facility] Surgical History Last Updated History of hernia repair 06/02/2024 Last Documented On 5 8:22AM ; [facility] History of History of Gallbladder 2024 Last Documented On 5 8:22AM ; [facility] History of hysterectomy 06/02/2024 Last Documented On 5 8:22AM ; [facility] History of Previous Fractures 06/02/2024 Last Documented On 5 8:22AM ; [facility] History of total knee arthroplasty 06/02 Last Documented On 5 8:22AM ; [facility] Past Surgical History: Gastric bypass Last Documented On 5 8:22AM ; [facility] Medical History Includes: Medical History in patient's chart Description Last Updated History of Anemia 06/02/2024 Last Documented On 5 8:22AM ; [facility] History of arthritis 06/02/2024 Last Documented On 5 8:22AM ; [facility] History of asthma 06/02/2024 Last Documented On 5 8:22AM ; [facility] History of depression 06/02/2024 Last Documented On 5 8:22AM ; [facility] History of diabetes mellitus 06/02/2024 Last Documented On 5 8:22AM ; [facility] History of Fractures 06/02/2024 Last Documented On 5 8:22AM ; [facility], [facility] History of Heartburn / Acid Reflux 06/02 Last Documented On 5 8:22AM ; [facility], [facility] History of Hypertension 06/02/2024 Last Documented On 5 8:22AM ; [facility], [facility] History of Sleep Apnea 06/02/2024 Last Documented On 5 8:22AM ; [facility] History of Thyroid Disease 06/02/2024 Last Documented On 5 8:22AM ; [facility], [facility] Family History Includes: Family History in patient's chart Description Last Updated Stroke / Seizures 06/02/2024 Last Documented On 5 8:22AM ; [facility], [facility] Mental Status Description Anxiety Last Documented On 5 11:14AM ; [facility], [facility] Allergies Includes: Active, inactive, and resolved Allergies Substance Type Reaction Onset Date Resolved Date Statu s Morphine Sulfate Allergy 06/02/2024 Ac tive Last Documented On 5 11:06AM ; [facility], [facility] Levaquin Allergy 06/02/2024 Active Last Documented On 5 11:07AM ; [facility], [facility] Cefdinir Allergy 06/02/2024 Active Last Documented On 5 11:08AM ; [facility], [facility] Care Store Coordinator Name (Identifier) Role/Relation Location/Telecom Last Documented By Isiah Sheridan DPM ([id number]) Assigned practitioner (occupation) [address], [place], [place], [address] tel: Last Documented On 06/17/2024 9:45AM ; [facility], [facility] Salima Gonzáles DO ([id number]) Primary care physician (occupation) [address], [place], [place], [address] tel: Last Documented On 06/17/2024 9:45AM ; [facility], [facility] Encounters Includes: Encounters from 05/05/2024 through 05/05/2025 Encounter Provider Location (Healthcare Service Location) Date Check-In Time Check-Out Time Diagnosis Encounter Disposition Physician Specified Mathew Gordon [facility] 10:08AM 10:49AM Overweight Payer Includes: Active Insurance Policies Plan Name (Payer ID) Coverage Type Member ID Group # Subscriber (ID) Relationship Effective Dates 1 - [employer] ([place]) Medicare ([id number]) [id number] Neetu Murillo Self Last Documented On 9:59AM ; [facility], [facility] Clinical Notes Includes: Signed Clinical Notes starting from 04/20/2022 * Progress note Date Encounter Last Documented by 06/02/2024 Physician Specified Last documen matheus on 06/16/2024; 8:22 AM, Mathew Gordon PA-C; [facility] Active Problems & Conditions [...] Disintegrating 15 days, 0 refills - Nystatin-Triamcinolone 263951-5.1 UNIT/GM-% External Cream 30 days, 0 refills - Nystatin-Triamcinolone 815635-2.1 UNIT/GM-% External Cream 30 days, 0 refills [...] back pain Previous Tests Imaging: X-Ray: X-ray [facility]. Available previous imaging studies were [...]
--- NOTE | 2025-05-05 18:01 | CT_ITS ---
PROCEDURE INFORMATION: Exam: CT Abdomen And Pelvis With Contrast Exam date and time: 05/05/2025 6:49 PM Age: 59 years old Clinical indication: Abdominal pain; Additional info: H/o suzanne-en-y ulcers, hernia; Diffuse abd pain TECHNIQUE: Imaging protocol: Computed tomography of the abdomen and pelvis with contrast. Radiation optimization: All CT scans at this facility use at least one of these dose optimization techniques: automated exposure control; mA and/or kV adjustment per patient size (includes targeted exams where dose is matched to clinical indication); or iterative reconstruction. Contrast material: ISOVUE; Contrast volume: 75 ml; Contrast route: IV; COMPARISON: CT ABDOMEN PELVIS W CON 11/25/2024 10:56 PM FINDINGS: Liver: Normal. No mass. Gallbladder and biliary ducts: Cholecystectomy. No bile duct dilatation. Pancreas: Normal. No ductal dilation. Spleen: Normal. No splenomegaly. Adrenal glands: Normal. No mass. Kidneys and ureters: 1.8 cm simple right renal cyst. Stomach and bowel: Colonic diverticulosis. Gastric bypass. Appendix: No evidence of appendicitis. Intraperitoneal space: Unremarkable. No free air. No significant fluid collection. Vasculature: Unremarkable. No abdominal aortic aneurysm. Lymph nodes: Unremarkable. No enlarged lymph nodes. Urinary bladder: Unremarkable as visualized. Reproductive: Hysterectomy. Bones/joints: Unremarkable. No acute fracture. Soft tissues: Numerous midline abdominal wall madeleine. IMPRESSION: 1. Diverticulosis. 2. Simple right renal cyst does not require follow-up imaging. COMMENTS: Consistent with the [employer]'s Incidental Findings Committee white paper (J Am Cristiana Radiol 2018): Any incidental renal lesion less than 1 cm or classified as too small to characterize, or any incidental cystic renal lesion characterized as simple-appearing, is likely benign. No follow-up imaging is recommended for these lesions per consensus recommendations based on imaging criteria.
--- NOTE | 2025-05-05 18:03 | [facility].EDGENADL ---
Discharge Plan Disposition Patient Disposition: Home, Self-Care Prescriptions Prescriptions: No Action Mounjaro 7.5 mg/0.5 mL pen injector SQ WEEKLY methylprednisolone 4 mg tablets,dose pack 4 mg PO PER PKG DIR Qty: 21 0RF diclofenac sodium [Voltaren Arthritis Pain] 1 % gel 4 g topical QID PRN (Reason: pain) 30 Days Qty: 100 2RF Rx Instructions: apply to heel; ankle, foot; for foot includes sole/toes/top of foot loratadine 10 mg tablet 10 mg PO DAILY Nurtec ODT 75 mg tablet,disintegrating 75 mg PO DAILYP PRN (Reason: Migraine Headache) fluticasone propionate 50 mcg/actuation spray,suspension 1 - 2 spray intranasal DAILY Patient Comments: instill 1-2 SPRAYS IN EACH NOSTRIL EVERY DAY Rx Instructions: administer 1-2 sprays into each nostril every day Emgality Pen 120 mg/mL pen injector 120 mg SQ MONTHLY diclofenac sodium [Voltaren Arthritis Pain] 1 % gel 4 g topical QID PRN (Reason: pain) Qty: 100 2RF Rx Instructions: apply to single knee, ankle, foot; for foot includes sole/toes/top of foot risankizumab-rzaa 150 MG/ML pen injector 150 mg SQ Q84D albuterol sulfate 90 mcg/actuation HFA aerosol inhaler 2 inh INHALATION Q6HP PRN (Reason: Shortness Of Breath Or Wheezing) Patient Comments: INHALE TWO PUFFS BY MOUTH EVERY 6 HOURS NEEDED FOR SHORTNESS OF BREATH OR wheezing Linzess 72 mcg capsule 72 mcg PO NEEDED PRN (Reason: Constipation) Patient Comments: TAKE ONE CAPSULE BY MOUTH EVERY DAY (DME) FreeStyle Niels 2 Sensor Kit MISCELLANEOUS Patient Comments: USE DIRECTED FOR CONTINUOUS GLUCOSE MONITORING furosemide 20 mg tablet 20 mg PO DAILYP PRN (Reason: Edema) Rx Instructions: PATIENT STATES SHE TAKES NEEDED FOR EDEMA pantoprazole 20 mg tablet,delayed release (DR/EC) 20 mg PO BID fluticasone propion-salmeterol [Advair Diskus] 100-50 mcg/dose Blister With Device 1 inh inhalation BIDRT 30 Days Qty: 60 0RF fluoxetine 40 MG capsule 40 mg PO BID bupropion HCl 150 MG tablet 150 mg PO BID simvastatin 5 MG tablet 5 mg PO HS levothyroxine 125 MCG tablet 125 mcg PO AM pregabalin 150 MG capsule 150 mg PO BID montelukast 10 MG tablet 10 mg PO PM Referrals Follow up/Referrals: Salima Gonzáles [Primary Care Provider, Medical] - See instructions Activity Restrictions/Add. Instructions Additional Instructions/Restrictions: There was no explanation from an emergency standpoint to correlate to your diffuse abdominal discomfort that you are feeling today. If you continue to have symptoms I recommend you follow-up with your gastric bypass/bariatric surgeon. Please return to the emergency point with any worsening of her symptoms. Clinical Impressions Clinical Impression: Abdominal pain Instructions Patient Instructions: DI for Acute Abdominal Pain Print Language Print Language: Divehi Discharge ED Provider: Sharona Duarte General Adult HPI General Chief complaint: Abdominal Pain Stated complaint: Abdominal pain,middle back pain with nausea Time Seen by Provider: 05/05/25 17:55 Mode of Arrival: Ambulatory Source of Information: Patient Description of Symptoms (Recalled from ER Triage Doc. by RN): patient presents for lower abdominal pain and midline lower back pain that started yesterday. patient rates both a 02/13. history of bowel obstruction, hernia repair, gastric bypass complicated by ulcers. patient also stated she's been constipated and not peeing much reports last BM 2pm today after lynsess. no reports of n/v/d. 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 No sudden component to this no focality to it from history standpoint. No other symptoms such as changes in bowel movements other than constipation. Related Data Home Medications ?Medication ?Instructions ?Recorded ?Confirmed bupropion HCl 150 mg tablet,12 hr 150 mg PO BID 08/11/18 04/06/25 sustained-release fluoxetine 40 mg capsule 40 mg PO BID 08/11/18 04/06/25 levothyroxine 125 mcg tablet 125 mcg PO AM 08/11/18 04/06/25 pregabalin 150 mg capsule 150 mg PO BID 08/11/18 04/06/25 simvastatin 5 mg tablet 5 mg PO HS 08/11/18 04/06/25 loratadine 10 mg tablet 10 mg PO DAILY 01/08/20 04/06/25 montelukast 10 mg tablet 10 mg PO PM 10/10/20 04/06/25 risankizumab-rzaa 150 mg/mL 150 mg SQ Q84D 10/28/21 04/06/25 subcutaneous pen injector fluticasone propionate 50 1 - 2 spray intranasal DAILY 02/07/24 04/06/25 mcg/actuation nasal spray,suspension galcanezumab-gnlm 120 mg/mL 120 mg SQ MONTHLY 02/07/24 04/06/25 subcutaneous pen injector (Emgality Pen) rimegepant 75 mg disintegrating 75 mg PO DAILYP PRN Migraine 02/07/24 04/06/25 tablet (Nurtec ODT) Headache albuterol sulfate 90 mcg/actuation 2 inh inhalation Q6HP PRN 04/07/24 11/26/24 aerosol inhaler Shortness Of Breath Or Wheezing flash glucose sensor (FreeStyle 04/07/24 11/26/24 Niels 2 Sensor kit) furosemide 20 mg tablet 20 mg PO DAILYP PRN Edema 04/07/24 04/06/25 linaclotide 72 mcg capsule 72 mcg PO NEEDED PRN 04/07/24 04/06/25 (Linzess) Constipation pantoprazole 20 mg tablet,delayed 20 mg PO BID 04/07/24 04/06/25 release tirzepatide 7.5 mg/0.5 mL mg SQ WEEKLY 04/06/25 04/06/25 subcutaneous pen injector (Mounjaro) Previous Rx's ?Medication ?Instructions ?Recorded fluticasone 100 mcg-salmeterol 50 1 inh inhalation BIDRT 30 days #60 04/07/24 mcg/dose blistr powdr for ea inhalation (Advair Diskus) diclofenac sodium 1 % topical gel 4 g topical QID PRN pain 30 days 04/06/25 (Voltaren Arthritis Pain) #100 grams methylprednisolone 4 mg tablets in 4 mg PO PER PKG DIR Pain, swelling 04/06/25 a dose pack #21 tabs diclofenac sodium 1 % topical gel 4 g topical QID PRN pain #100 grams 04/13/25 (Voltaren Arthritis Pain) Allergies Allergy/AdvReac Type Severity Reaction Status Date / Time cefdinir Allergy Severe Difficulty Verified 04/06/25 09:02 Breathing morphine (MORPHINE) Allergy Intermediate HALLUCINATI Verified 04/06/25 09:02 ONS levofloxacin (From Levaquin) Allergy Unknown Difficulty Verified 04/06/25 09:02 Breathing PFSH PFSH Disclaimer: The information contained in this section may have been updated after the patient was seen, as this information can be updated by other users. Medical History Left foot pain UTI (urinary tract infection) Acute kidney injury Hypokalemia Intractable abdominal pain Omental infarction NSIP (nonspecific interstitial pneumonitis) Fatty stool Bloating ILD (interstitial lung disease) Pyelonephritis Abdominal pain Strep sore throat Type 2 diabetes mellitus Colitis Chest pain Allergic rhinitis with postnasal drip Diabetes Acute viral syndrome Sinusitis Acute viral syndrome Conjunctivitis Hernia, internal Small bowel obstruction Primary osteoarthritis of both feet Posterior tibial tendinitis of left lower extremity BMI 45.0-49.9, adult Diarrhea Nausea and vomiting Abdominal pain Left femoral shaft fracture Left ureteral calculus Patient left without being seen Onychoincurvatum Nail dystrophy Arch pain of left foot Type 2 diabetes mellitus with diabetic neuropathy, without long-term current use of insulin Acquired equinus deformity of both feet Hydronephrosis Ureteral calculi Uncontrolled pain Hydronephrosis due to obstruction of ureter Kidney stone Bronchitis Complaint of pain of great toe Diabetic foot Pain of right heel UTI (urinary tract infection) Omental infarction History of femur fracture Ear noise/buzzing Hearing difficulty of both ears Urinary tract infection Kidney stone Migraine COPD (chronic obstructive pulmonary disease) Asthma Hyperlipidemia Anxiety Diabetes Hypertension Depression Surgical History History of gastric bypass History of knee replacement bilateral knees History of tubal ligation History of tonsillectomy History of hysterectomy (Unknown) History of cholecystectomy History of section Social History Smoking Status: Never smoker smoking status stop date: Patient stated stopped 3 years ago how long ago did patient quit smoking: Stopped 3 years ago second hand exposure: No alcohol intake: never substance use type: denies use current occupational status: employed Travel in the last 8 weeks?: None household members: family housing: house 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 current occupational exposures/hazards: No caffeine: Yes Have you lived/traveled outside [place] in past 30 days?: No Contact w/someone who lives/traveled outside [place] past 30 days?: No Exposure to someone with infectious disease in past 14 days?: No Do you have a fever (greater than 100.4 F or 38 C)?: No Have you tested positive for COVID-19?: No Exposed to someone with COVID-19 in past 14 days?: No Do you have a sore throat?: No Do you have a cough?: No Do you have any weakness?: No Do you have any diarrhea?: No Are you experiencing any unusual bleeding?: No Do you have any muscle aches/pain?: No Do you have any abdominal pain?: No Are you experiencing loss of taste or smell?: No Other Medical History Have you received the Flu Vaccine for this season: No Have you received the Pneumonia Vaccine: No ROS Obtained: Yes All systems reviewed & no additional complaints except as documented Physical Exam General General appearance: alert and in no apparent distress Respiratory Respiratory exam: Present normal lung sounds bilaterally Cardiovascular Cardiovascular exam: Present regular rate Abdominal Exam Abdominal exam: Present soft and tenderness (Diffuse tenderness no rebound or guarding); Absent distention Neurological Exam Neurological exam: Present alert and oriented X3 Medical Decision Making Medical Records Screening: Per USPSTF and CDC recommendations, given the prevalence of disease in our region, it is our hospital?s policy to screen for HIV and viral Hepatitis for all patients aged 18 and over and those with ongoing risk factors. Aurelio Inquiry Pt receiving controlled substance: No Vital Signs: 05/05/25 17:23 05/05/25 18:45 05/05/25 19:22 Temperature 98.5 F Temperature Source Oral Pulse Rate 60 62 Pulse Rate [Right Radial] 65 Respiratory Rate 15 Blood Pressure 159/91 H 117/77 Blood Pressure [Right Arm] 150/90 H Blood Pressure Mean [Right Arm] 110 Blood Pressure Source [Right Arm] Automatic Cuff Blood Pressure Position [Right Arm] Sitting 02 Sat by Pulse Oximetry 100 99 98 Oxygen Delivery Method Room Air Lab Data Lab results reviewed: Yes I reviewed the patient's lab results. Lab Results 05/05/25 17:53: WBC 9.6, RBC 4.41, Hgb 14.4, Hct 40.6, MCV 92.1, MCH 32.7 H, MCHC 35.5 H, RDW 15.5, Plt Count 333, MPV 10.3, Neut % (Auto) 66.0, Lymph % (Auto) 26.7, [place] % (Auto) 5.8, Eos % (Auto) 0.5, Baso % (Auto) 0.7, Neut # (Auto) 6.3, Lymph # (Auto) 2.6, [place] # (Auto) 0.6, Eos # (Auto) 0.1, Baso # (Auto) 0.1, Sodium 139, Potassium 3.7, Chloride 103, Carbon Dioxide 25, Anion Gap 14.7, BUN 26 H, Creatinine 0.90, Estimated Creat Clear 102, Estimated GFR 64, Est GFR ( Amer) 77, Glucose 78, Calcium 9.8, Total Bilirubin 0.9, AST 46 H, ALT 29, Alkaline Phosphatase 85, Total Protein 7.8, Albumin 4.8, Globulin 3.0, Albumin/Globulin Ratio 1.6, Lipase 110 05/05/25 18:20: Lactate 0.6 L 05/05/25 17:53 05/05/25 17:53 Orders (Tests/Meds): ED MEDICATIONS Generic Name Dose Route Start Last Admin Trade Name Freq PRN Reason Stop Dose Admin Sodium Chloride 10 ml 05/05/25 18:58 05/05/25 18:59 Sodium Chloride 0.9% 10ml Syr (Rad Only) IV 06/04/25 18:57 10 ml NEEDED PRN Administration Maintain IV Site Discontinued Medications Generic Name Dose Route Start Last Admin Trade Name Freq PRN Reason Stop Dose Admin Acetaminophen 1,000 mg 05/05/25 18:29 05/05/25 19:05 Acetaminophen 1,000mg/100ml Vial IV 05/05/25 18:30 1,000 mg ONCE ONE Administration Lactated Ringer's 1,000 mls @ 999 mls/hr 05/05/25 18:15 05/05/25 19:58 Lactated Ringer's 1000 Ml Bag IV 05/05/25 19:15 Infused .Q1H1M SORAYA Infusion Iopamidol 75 ml 05/05/25 18:58 05/05/25 18:59 Iopamidol-370 (76%);100ml Bottle IV 05/05/25 18:59 75 ml ONCE ONE Administration Morphine Sulfate 4 mg 05/05/25 18:01 05/05/25 18:25 Morphine 4mg/Ml Syringe IV 05/05/25 18:02 4 mg ONCE ONE Administration Ondansetron HCl 4 mg 05/05/25 18:01 05/05/25 18:25 Ondansetron 4mg/2ml Vial IV 05/05/25 18:02 4 mg ONCE ONE Administration ORDERS Category Date Time Status CT abdomen pelvis w con Stat Cat Scan 05/05/25 18:01 Completed CBC w/Auto Diff [Complete Blood Count Auto Diff] Stat Lab 05/05/25 17:53 Completed CMP [Comprehensive Metabolic Panel] Stat Lab 05/05/25 17:53 Completed Lactic Acid Stat Lab 05/05/25 18:20 Completed Lipase Stat Lab 05/05/25 17:53 Completed Medical Decision Narrative: 59-year-old with above history and physical with diffuse abdominal pain history of Eulogio-en-Y gastric bypass as well as ulcerations and hernias with obstruction differential includes recurrent obstruction or hernia ulceration malignancy intra-abdominal infection colitis etc. Contrasted CT scan being performed will reassess after initial workup including labs and symptomatic medications have been administered Reassessment 802 serial abdominal exams benign labs unremarkable CT scan performed which I personally interpreted shows no intra-abdominal pathology radiology read consistent with this as well she did have a simple renal cyst as well as diverticulosis but no explanation for the cause of her symptoms. Given the fact that she has a benign serial exam she will follow-up outpatient with her bariatric surgeon if she continues to have symptoms otherwise she will return to the emergency room with any worsening of her symptoms Critical Care Critical Care Time Critical Care Time: No
[2025-05-05 18:07] LABS: Hematocrit 40.6 % (37.0-47.0); Hemoglobin 14.4 g/dL (12.2-16.2); Immature Granulocytes % 0.3 %; Mean Corpuscular HGB Conc 35.5 g/dL (31.8-35.4); Mean Corpuscular Hemoglobin 32.7 pg (27.0-31.2); Mean Corpuscular Volume 92.1 fl (81-99); Nucleated Red Blood Cells % 0 %; Platelet Count 333 K/mm3 (142-424); Red Blood Count 4.41 M/mm3 (4.20-5.40); Red Cell Distribution Width-SD 47.9 fL; White Blood Count 9.6 K/mm3 (4.8-10.8)
[2025-05-05 18:13] LABS: Albumin Level 4.8 g/dl (3.5-5.0); Chloride 103 mmol/L (98-107); Potassium 3.7 mmoL/L (3.5-5.1); Sodium 139 mmol/L (136-145)
[2025-05-05 18:15] LABS: Blood Urea Nitrogen 26 mg/dl (7-17); Creatinine Clearance Estimated 102 mL/min (50-200); Creatinine,Serum 0.90 mg/dl (0.52-1.04); Estimated Glomerular Filt Rate 64 ml/min (>60); GFR (African American) 77 ML/MIN (>60)
[2025-05-05 18:16] LABS: Alanine Aminotransferase 29 U/L (12-78); Albumin/Globulin Ratio 1.6 (1.1-1.8); Alkaline Phosphatase 85 U/L (38-126); Anion Gap 14.7 mEq/L (5-15); Aspartate Amino Transferase 46 U/L (14-36); Bilirubin,Total 0.9 mg/dl (0.2-1.3); Calcium 9.8 mg/dl (8.4-10.2); Carbon Dioxide 25 mmol/L (22.0-30.0); Globulin 3.0 g/dL (1.3-3.2); Glucose 78 mg/dl (74-100); Lipase 110 U/L (23-300); Total Protein,Serum 7.8 g/dl (6.3-8.2)
[2025-05-05] MEDS: MORPHINE 4MG/ML SYRINGE 4 MG IV (18:25)
[2025-05-05] MEDS: ONDANSETRON 4MG/2ML VIAL 4 MG IV (18:25)
[2025-05-05] MEDS: LACTATED RINGERS 1000ML 1,000 ML 999 ML IV (18:26)
[2025-05-05 18:45] VITALS: BP 159/91; PULSE 60; O2SAT 99
[2025-05-05] MEDS: IOPAMIDOL-370 (76%);100ML BOTTLE 75 ML IV (18:59)
[2025-05-05] MEDS: SODIUM CHLORIDE 0.9% 10ML SYR (RAD ONLY) 10 ML IV (18:59)
[2025-05-05] MEDS: ACETAMINOPHEN 1,000MG/100ML VIAL 1000 MG IV (19:05)
[2025-05-05 19:22] VITALS: BP 117/77; PULSE 62; O2SAT 98
--- NOTE | 2025-05-05 19:47 | PC.NURSE ---
Pt was provided a warm blanket.
[2025-05-05 20:09] VITALS: BP 102/67; PULSE 86; RESP 20; TEMP 36.6; O2SAT 100
== END 2025-05-05 20:09 | disposition home or self-care (01) ==
PROVIDERS: Emergency Provider Student in an Organized Health Care Education/Training Program; PCP Family Medicine
DX: R10.84 Generalized abdominal pain (principal); R11.0 Nausea; Z98.84 Bariatric surgery status
CPT/HCPCS: 74177; 80053; 83605; 83690; 85025; 96361; 96374; 96375; 99285; J0131; J2270; J2405; J7120; Q9967